=== PATIENT | male | born 2000 | race American Indian/Alaskan Native ===

== ENCOUNTER 2019-05-17 05:23 | Emergency (ER) | payer MEDICAID ==
[2019-05-17 06:10] LABS: Basophils % (Auto) 0.5 % (0.0-1.8); Eosinophils # (Auto) 0.1 K/mm3 (0.0-0.4); Eosinophils % (Auto) 2.9 % (0.0-4.3); Hematocrit 45.7 % (35.5-45.6); Hemoglobin 15.1 gm/dl (11.8-15.2); Lymphocytes # (Auto) 2.5 K/mm3 (1.2-5.4); Lymphocytes % (Auto) 50.9 % (13.4-35.0); Mean Corpuscular HGB Conc 33 % (32-34); Mean Corpuscular Volume 94 fl (84-94); Monocytes # (Auto) 0.5 K/mm3 (0.0-0.8); Monocytes % (Auto) 10.8 % (0.0-7.3); Platelet Count 159 K/mm3 (140-440); Red Blood Count 4.85 M/mm3 (3.65-5.03); Red Cell Distribution Width 14.2 % (13.2-15.2)
[2019-05-17 06:12] LABS: Bilirubin,Urine NEG (Negative); Blood,Urine NEG (Negative); Color,Urine Yellow (Yellow); Mucus,Urine FEW /HPF; Protein,Urine <15 mg/dL mg/dL (Negative)
[2019-05-17 06:20] LABS: Amphetamine Screen,Urine PRESUMPTIVE NEGATIVE; Benzodiazepines Screen,Urine PRESUMPTIVE NEGATIVE; Cannabinoid Screen,Urine PRESUMPTIVE NEGATIVE; Cocaine Screen,Urine PRESUMPTIVE NEGATIVE; Methadone Screen,Urine PRESUMPTIVE NEGATIVE; Opiate Screen,Urine PRESUMPTIVE NEGATIVE
[2019-05-17 06:23] LABS: BUN/Creatinine Ratio 10; Blood Urea Nitrogen 10 mg/dL (9-20); Calcium 9.4 mg/dL (8.4-10.2); Hemolysis Index 6
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
[2019-05-17 08:01] VITALS: BP 120/49
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
== END 2019-05-17 14:33 | disposition home or self-care (01) ==
LOC: EEVIPCON 05:23 → ED 05:23
DX: F79 Unspecified intellectual disabilities (principal); Q90.9 Down syndrome, unspecified; R45.4 Irritability and anger; Z79.899 Other long term (current) drug therapy
CPT/HCPCS: 36415; 80048; 80164; 80307; 80320; 81001; 85025; G0480

== ENCOUNTER 2019-06-05 11:37 | Inpatient (IN) | payer MEDICAID ==
[2019-06-05] MEDS ORDERED: SODIUM CHLORIDE FLUSH SYRINGE 10 ML IV PRN (11:42)
[2019-06-05] MEDS ORDERED: NACL 0.9% 1000 ML 1,000 ML IV SCH (12:00)
[2019-06-05] MEDS ORDERED: PROTONIX IV SCH (13:00)
[2019-06-05 13:32] LABS: Basophils % (Auto) 0.8 % (0.0-1.8); Eosinophils # (Auto) 0.1 K/mm3 (0.0-0.4); Eosinophils % (Auto) 1.5 % (0.0-4.3); Hematocrit 39.7 % (35.5-45.6); Lymphocytes # (Auto) 2.5 K/mm3 (1.2-5.4); Lymphocytes % (Auto) 47.5 % (13.4-35.0); Mean Corpuscular HGB Conc 33 % (32-34); Mean Corpuscular Volume 94 fl (84-94); Monocytes # (Auto) 0.6 K/mm3 (0.0-0.8); Platelet Count 119 K/mm3 (140-440); Red Cell Distribution Width 14.7 % (13.2-15.2)
[2019-06-05 13:44] LABS: INR 1.14 (0.87-1.13); Partial Thromboplastin Time 31.8 Sec. (24.2-36.6)
[2019-06-05 13:50] LABS: Alanine Aminotransferase 8 units/L (7-56); Albumin 3.4 g/dL (3.9-5); BUN/Creatinine Ratio 8; Blood Urea Nitrogen 7 mg/dL (9-20); Calcium 8.9 mg/dL (8.4-10.2); LDL Cholesterol,Direct 66 mg/dL (50-130)
[2019-06-05 13:51] LABS: Hemolysis Index 6
[2019-06-05] MEDS: FLAGYL 500 MG/100 ML 500 MG/100 ML BAG IV SCH ×2 (13:59→21:00)
[2019-06-05] MEDS: LOVENOX SUB-Q SCH (14:04)
[2019-06-05 14:33] LABS: Chol/HDL Ratio 2.29 %; HDL Cholesterol 54 mg/dL (40-59)
--- NOTE | 2019-06-05 19:17 | History and Physical Report ---
History of Present Illness Date of examination: 06/05/19 Date of admission: 06/05/19 12:08 Chief complaint: Abdominal pain, diarrhea. days- 3 History of present illness: Patient is a 19-year-old morbidly obese young man who has schizophrenia and mental obtundation and leaves in a penitentiary was brought by the caregiver the office today on account of persistent diarrhea that started after eating hot dogs in a green party 4 days ago. Freqency was 3-5 times a day, watery in nature, with no hematemesis or melena. Also developed generalized abdominal pain. Dull in nature 7-8/10 in severity. Nauseated but no vomiting. Has no fever. In my office pt was very lethargic for which admission was requested. Past History Past Medical History: other (schizophrenia, mental obtundation,) Past Surgical History: No surgical history Social history: denies: smoking, alcohol abuse Family history: denies: cancer, diabetes Medications and Allergies Allergies Allergy/AdvReac Type Severity Reaction Status Date / Time No Known Allergies Allergy Verified 10/20/15 03:43 Home Medications Medication Instructions Recorded Confirmed Last Taken Type Benztropine [Cogentin] 0.5 mg PO QHS 05/17/19 06/05/19 Unknown History Divalproex ER [DepaKOTE ER] 500 mg PO BID 05/17/19 06/05/19 Unknown History clonazePAM [KlonoPIN] 2 mg PO BID 05/17/19 06/05/19 Unknown History traZODone [Desyrel] 100 mg PO HS 06/05/19 06/05/19 Unknown History Active Meds: Active Medications Enoxaparin Sodium (Lovenox) 40 mg SUB-Q QDAY [facility] Last Admin: 06/05/19 14:04 Dose: 40 mg Documented by: Sodium Chloride (Nacl 0.9% 1000 Ml) 1,000 mls @ 150 mls/hr IV DIRECT [facility] Last Admin: 06/05/19 13:50 Dose: 150 mls/hr Documented by: Metronidazole (Flagyl 500 Mg/100 Ml) 500 mg in 100 mls @ 100 mls/hr IV BID [facility]; Protocol Last Admin: 06/05/19 13:59 Dose: 100 mls/hr Documented by: Pantoprazole Sodium (Protonix) 40 mg IV QDAY [facility] Last Admin: 06/05/19 13:56 Dose: 40 mg Documented by: Sodium Chloride (Sodium Chloride Flush Syringe 10 Ml) 10 ml IV BID STEPHEN Sodium Chloride (Sodium Chloride Flush Syringe 10 Ml) 10 ml IV PRN PRN PRN Reason: LINE FLUSH Review of systems Constitutional: Obese, Well Nourished and Well developed. Head: NC/ AT Eyes: Denies any visual impairments. No discharge from the eyes Nose: Denies any rhinorrhea or epistaxis Throats: Denies any post nasal drainage. Ears: Denies any hearing deficits Cardiovascular system: Denies any chest pain, shortness of breath, orthopnea, paroxysmal nocturnal dyspnea, or palpitation. Respiratory system: Denies any cough, difficulty breathing, wheezing, pleuritic chest pain, Gastrointestinal system: Denies any abdominal pain, nausea vomiting, hematemesis or melena. Neurological system: Nephrology, Denies any headache, slurred speech, facial droop, lateralizing weakness Genitalia system: Denies any dysuria, urinary frequency or urgency, urethral discharge Skin: No rashes, hyperpigmented spots. Hematological: Denies any cervical tenderness hemorrhages or petechia. Immunological: Denies any multiple septic spots, Lymphatic: Denies any generalized lymphadenopathy. Endocrine: Denies any polyuria, polydipsia, polyphagia. No heat or cold intolerance. Musculoskeletal system: No joint pain or swelling. Psych: No visual, tactile, auditory or hallucination Exam - Physical Exam Narrative exam: Constitutional: Well-nourished well-developed. Obese, In no distress Head: Normocephalic atraumatic Eyes: Pupils are equal round and reactive to light Nose: No enlarged turbinates, no septal deviation. Mouth: Moist mucous membranes. Neck: Supple no thyromegaly. No bruit. No JVD Heart: Regular rate and rhythm, S1-S2 normal. No rubs murmurs or gallop Lungs: Clear to auscultation bilaterally. no rales or rhonchi Abdomen: Soft, nontender. Bowel sound are present. Extremities: No edema, no cyanosis, no clubbing. Neuro: Alert oriented Oriented x3. No focal sensory or motor deficit. Skin: No rashes or hyperpigmented spots Musculoskeletal system: No joint pain or swelling Hematological: No petechia or subcutanous hemorrhages. Immunological: No multiple septic spots on the skin Lymphatic: No generalized lymphadenopathy Psychiatry: Euthymic. Calm. - Constitutional Vitals: Temp Pulse Resp BP Pulse Ox 97.8 F 60 16 122/81 96 06/05/19 16:55 06/05/19 12:42 06/05/19 16:55 06/05/19 16:55 06/05/19 12:42 Results - Labs CBC & Chem 7: 06/05/19 13:08 06/05/19 13:08 Labs: Abnormal lab results 06/05/19 06/05/19 06/05/19 Range/Units 13:08 13:08 13:08 Plt Count 119 L (140-440) K/mm3 Lymph % (Auto) 47.5 H (13.4-35.0) % [place] % (Auto) 12.0 H (0.0-7.3) % Seg Neutrophils % 38.2 L (40.0-70.0) % INR 1.14 H (0.87-1.13) BUN 7 L (9-20) mg/dL Phosphorus (2.5-4.5) mg/dL Albumin 3.4 L (3.9-5) g/dL 06/05/19 Range/Units 13:08 Plt Count (140-440) K/mm3 Lymph % (Auto) (13.4-35.0) % [place] % (Auto) (0.0-7.3) % Seg Neutrophils % (40.0-70.0) % INR (0.87-1.13) BUN (9-20) mg/dL Phosphorus 5.10 H (2.5-4.5) mg/dL Albumin (3.9-5) g/dL Assessment and Plan - Acute gastroenteritis Nothing by mouth, IV fluids, stool for ova parasites and WBC and culture - Abdominal pain Obtain CT scan of abdomen and pelvis - History of schizophrenia Menstrual medication - DVT prophylaxis with Lovenox and GI with Pepcid -CODE STATUS: patient is full code Disposition: per hospital course
--- NOTE | 2019-06-05 19:32 | Cat Scan Report ---
. CT abdomen pelvis w con INDICATION: ABDOMINAL PAIN. TECHNIQUE: All CT scans at this location are performed using CT dose reduction for ALARA by means of automated e xposure control. COMPARISON: None available. FINDINGS: Lung bases are clear. Liver, gallbladder, spleen, pancreas, kidneys and adrenals are negative on this noncontrast exam. Abdominal aorta is normal in size. No adenopathy. Pelvis Images are suboptimal because of the patient's size. Appendix cannot be identified. No obvious free f luid or inflammatory change. Abdominal incision scar. IMPRESSION: 1. Images of the lower abdomen are suboptimal due to the patient's size. I see no definite acute abno rmalities. Signer Name: Taqueria Dalal MD Signed: 06/05/2019 7:28 PM Workstation Name: [id number]
[2019-06-05] MEDS ORDERED: SODIUM CHLORIDE FLUSH SYRINGE 10 ML IV SCH (22:00)
[2019-06-05] MEDS ORDERED: DESYREL PO SCH (22:00)
[2019-06-05] MEDS ORDERED: COGENTIN PO SCH (22:00)
[2019-06-06] MEDS ORDERED: TYLENOL PO PRN (01:01)
[2019-06-06 07:09] LABS: Basophils % (Auto) 0.9 % (0.0-1.8); Eosinophils # (Auto) 0.1 K/mm3 (0.0-0.4); Eosinophils % (Auto) 2.6 % (0.0-4.3); Hematocrit 42.2 % (35.5-45.6); Hemoglobin 14.3 gm/dl (11.8-15.2); Lymphocytes # (Auto) 2.1 K/mm3 (1.2-5.4); Lymphocytes % (Auto) 48.8 % (13.4-35.0); Mean Corpuscular HGB Conc 34 % (32-34); Mean Corpuscular Volume 93 fl (84-94); Monocytes # (Auto) 0.5 K/mm3 (0.0-0.8); Monocytes % (Auto) 11.4 % (0.0-7.3); Platelet Count 128 K/mm3 (140-440); Red Blood Count 4.55 M/mm3 (3.65-5.03); Red Cell Distribution Width 14.6 % (13.2-15.2)
[2019-06-06 07:14] LABS: Alanine Aminotransferase 8 units/L (7-56); Albumin 3.5 g/dL (3.9-5); BUN/Creatinine Ratio 9; Blood Urea Nitrogen 7 mg/dL (9-20); Calcium 9.6 mg/dL (8.4-10.2); Hemolysis Index 4
[2019-06-06] MEDS: LOVENOX SUB-Q SCH (12:10)
--- NOTE | 2019-06-06 13:59 | Discharge Summary ---
Providers - Providers Date of Admission: 06/05/19 12:08 Date of discharge: 06/06/19 Attending physician: BRODY IVAN none Primary care physician: BRODY IVAN Hospitalization Reason for admission: Abdominal pain, diarrhnea Pertinent studies: CT abdomen and pelvis that showed no acute event Procedures: none Hospital course: Patient is a 19-year-old morbidly obese young man who has schizophrenia and mental retardation and lives in a senior care was brought by the caregiver the office today on account of persistent diarrhea that started after eating hot dogs in a [employer] party 4 days ago. Freqency was 3-5 times a day, watery in nature, with no hematemesis or melena. Also developed generalized abdominal pain. Dull in nature 7-8/10 in severity. Nauseated but no vomiting. Has no fever. In my office pt was very lethargic for which admission was requested. commence on NPO, IV hydration. Diarrhoea stopped and admission CT abdomen and pelvis ordered and finding were unremarkable for any acute event Disposition: TO HOME OR SELFCARE Time spent for discharge: 35 mins - Discharge Diagnoses (1) Enterocolitis Status: Acute Core Measure Documentation - Palliative Care Palliative Care/ Comfort Measures: Not Applicable - Core Measures Any of the following diagnoses?: none Exam - Physical Exam Narrative exam: Constitutional: Well-nourished well-developed. Obese, In no distress Head: Normocephalic atraumatic Eyes: Pupils are equal round and reactive to light Nose: No enlarged turbinates, no septal deviation. Mouth: Moist mucous membranes. Neck: Supple no thyromegaly. No bruit. No JVD Heart: Regular rate and rhythm, S1-S2 normal. No rubs murmurs or gallop Lungs: Clear to auscultation bilaterally. no rales or rhonchi Abdomen: Soft, nontender. Bowel sound are present. Extremities: No edema, no cyanosis, no clubbing. Neuro: Alert oriented Oriented x3. No focal sensory or motor deficit. Skin: No rashes or hyperpigmented spots Musculoskeletal system: No joint pain or swelling Hematological: No petechia or subcutanous hemorrhages. Immunological: No multiple septic spots on the skin Lymphatic: No generalized lymphadenopathy Psychiatry: Euthymic. Calm. - Constitutional Vitals: Temp Pulse Resp BP Pulse Ox 98.5 F 46 L 18 107/62 98 06/06/19 05:59 06/06/19 05:59 06/06/19 05:59 06/06/19 05:59 06/06/19 05:59 Plan Activity: fall precautions Weight Bearing Status: Weight Bear as Tolerated Diet: regular Follow up with: BRODY IVAN MD [Primary Care Provider] - 06/10/19
[2019-06-06 14:44] VITALS: BP 121/65
== END 2019-06-06 17:31 | disposition home or self-care (01) | DRG 392 ==
LOC: 3A 11:37 → UNDOADMIN 11:37 → 3A 12:08
PROVIDERS: ADMIT Family Medicine; ATTEND Family Medicine
DX: K52.9 Noninfective gastroenteritis and colitis, unspecified (principal); F20.9 Schizophrenia, unspecified; F79 Unspecified intellectual disabilities; E66.01 Morbid (severe) obesity due to excess calories; Z68.42 Body mass index [BMI] 45.0-49.9, adult; Z79.899 Other long term (current) drug therapy
CPT/HCPCS: 36415; 74177; 80053; 80061; 83735; 84100; 85025; 85610; 85730; G0378; C9113; J1650; J7030; Q9967

== ENCOUNTER 2019-07-21 18:25 | Inpatient (IN) | payer MEDICAID ==
[2019-07-21] MEDS ORDERED: ONDANSETRON 4 MG/2 ML INJ IV ONE (18:50)
[2019-07-21] MEDS ORDERED: SODIUM CHLORIDE 0.9% 1000 ML 1,000 ML IV ONE (18:50)
[2019-07-21] MEDS ORDERED: PANTOPRAZOLE 40 MG INJ IV ONE (18:50)
--- NOTE | 2019-07-21 18:54 | Emergency Department Report ---
ED Abdominal Pain HPI - General Chief Complaint: Abdominal Pain Stated Complaint: N/V Time Seen by Provider: 07/21/19 18:46 Source: EMS Mode of arrival: Stretcher Limitations: No Limitations - History of Present Illness Initial Comments: Patient is 19 years old male with history of Down syndrome. Patient lives in a assisted. Patient brought to the emergency room via EMS for evaluation of abdominal pain and vomiting started today. Patient describes his pain as diffuse with no radiation. Patient denied any fever or chills. MD Complaint: abdominal pain -: This morning Location: diffuse Radiation: none - Related Data Home Medications Medication Instructions Recorded Confirmed Last Taken Benztropine [Cogentin] 0.5 mg PO QHS 05/17/19 06/05/19 Unknown Divalproex ER [Depakote ER] 500 mg PO BID 05/17/19 06/05/19 Unknown clonazePAM [KlonoPIN] 2 mg PO BID 05/17/19 06/05/19 Unknown traZODone [Desyrel] 100 mg PO HS 06/05/19 06/05/19 Unknown Previous Rx's Medication Instructions Recorded Last Taken Type Acetaminophen [Acetaminophen TAB] 650 mg PO Q4H PRN tablet 06/06/19 Unknown Rx Divalproex ER [Depakote ER] 500 mg PO BID tablet 06/06/19 Unknown Rx Lactulose 10 gm PO DAILY PRN #150 ml 07/21/19 Unknown Rx Ondansetron [Zofran Odt] 4 mg PO Q8HR PRN #14 tab.rapdis 07/21/19 Unknown Rx Sodium Phosphate,[place]-Dibasic 118 ml RC ONCE #1 enema 07/21/19 Unknown Rx [Fleet Enema] Allergies Allergy/AdvReac Type Severity Reaction Status Date / Time No Known Allergies Allergy Verified 10/20/15 03:43 ED Review of Systems ROS: Stated complaint: N/V Other details as noted in HPI Comment: All other systems reviewed and negative Constitutional: denies: chills, fever Respiratory: denies: cough, shortness of breath, SOB with exertion Cardiovascular: denies: chest pain, palpitations Gastrointestinal: abdominal pain, nausea, vomiting. denies: diarrhea, con stipation, hematemesis, melena, hematochezia Musculoskeletal: denies: back pain Neurological: denies: headache, weakness ED Past Medical Hx - Past Medical History Hx Congestive Heart Failure: No Hx Diabetes: No Hx Seizures: Yes Hx Psychiatric Treatment: Yes Hx Asthma: No (Hx) Hx COPD: No Additional medical history: down syndrome - Social History Smoking Status: Never Smoker Substance Use Type: None - Medications Home Medications: Home Medications Medication Instructions Recorded Confirmed Last Taken Type Benztropine [Cogentin] 0.5 mg PO QHS 05/17/19 06/05/19 Unknown History Divalproex ER [Depakote ER] 500 mg PO BID 05/17/19 06/05/19 Unknown History clonazePAM [KlonoPIN] 2 mg PO BID 05/17/19 06/05/19 Unknown History traZODone [Desyrel] 100 mg PO HS 06/05/19 06/05/19 Unknown History Acetaminophen [Acetaminophen TAB] 650 mg PO Q4H PRN tablet 06/06/19 Unknown Rx Divalproex ER [Depakote ER] 500 mg PO BID tablet 06/06/19 Unknown Rx Lactulose 10 gm PO DAILY PRN #150 ml 07/21/19 Unknown Rx Ondansetron [Zofran Odt] 4 mg PO Q8HR PRN #14 tab.rapdis 07/21/19 Unknown Rx Sodium Phosphate,[place]-Dibasic 118 ml RC ONCE #1 enema 07/21/19 Unknown Rx [Fleet Enema] ED Physical Exam - General Limitations: No Limitations General appearance: alert, in no apparent distress - Head Head exam: Present: atraumatic, normocephalic, normal inspection - Eye Eye exam: Present: normal appearance - ENT ENT exam: Present: normal exam, normal orophraynx, mucous membranes moist - Neck Neck exam: Present: normal inspection, full ROM. Absent: tenderness, meningismus, lymphadenopathy, thyromegaly - Respiratory Respiratory exam: Present: normal lung sounds bilaterally - Cardiovascular Cardiovascular Exam: Present: regular rate, normal rhythm, normal heart sounds - GI/Abdominal GI/Abdominal exam: Present: soft, normal bowel sounds. Absent: distended, tenderness, guarding, rebound, rigid, organomegaly, mass, bruit, pulsatile mass, hernia - Extremities Exam Extremities exam: Present: normal inspection, full ROM, normal capillary refill. Absent: tenderness, pedal edema, joint swelling, calf tenderness - Back Exam Back exam: Present: normal inspection, full ROM. Absent: CVA tenderness (R), CVA tenderness (L), muscle spasm, paraspinal tenderness, vertebral tenderness - Neurological Exam Neurological exam: Present: alert, oriented X3, CN II-XII intact - Psychiatric Psychiatric exam: Present: normal mood - Skin Skin exam: Present: warm, intact, normal color ED Course Vital Signs 07/21/19 07/21/19 18:35 19:20 Temperature 98.6 F Pulse Rate 103 H 101 H Respiratory 18 21 Rate Blood Pressure 109/59 Blood Pressure 107/60 [Right] O2 Sat by Pulse 96 96 Oximetry ED Medical Decision Making - Lab Data Result diagrams: 07/21/19 19:02 07/21/19 19:02 - Radiology Data Radiology results: report reviewed - Medical Decision Making Patient is 19 years old male with history of Down syndrome. Patient lives in a assisted. Patient brought to the emergency room via EMS for evaluation of abdominal pain and vomiting started today. Patient describes his pain as diffuse with no radiation. Patient denied any fever or chills. Patient labs reviewed and is unremarkable except for slightly elevated white blood cells. CT abdomen and pelvis showed severe constipation with no evidence of bowel obstruction. Patient require multiple antiemetics secondary to intractable vomiting. Patient received Zofran, Reglan Zofran and Benadryl. I discussed the patient with , he agreed to admit the patient to medical service. Critical care attestation.: If time is entered above; I have spent that time in minutes in the direct care of this critically ill patient, excluding procedure time. ED Disposition Clinical Impression: Abdominal pain, Constipation, Intractable vomiting with nausea Disposition: OP ADMIT IP TO THIS HOSP Is pt being admited?: Yes Condition: Stable Instructions: Constipation (ED), High Fiber Diet (ED), Abdominal Pain (ED) Prescriptions: Sodium Phosphate,[place]-Dibasic [Fleet Enema] 118 ml RC ONCE #1 enema Lactulose 10 gm PO DAILY PRN #150 ml PRN Reason: Constipation Ondansetron [Zofran Odt] 4 mg PO Q8HR PRN #14 tab.rapdis PRN Reason: Nausea And Vomiting Referrals: TIFFANIE PATELENCINOIZABELLA MD [Primary Care Provider] - 3-5 Days
[2019-07-21 19:19] LABS: Basophils % (Auto) 0.3 % (0.0-1.8); Eosinophils % (Auto) 0.1 % (0.0-4.3); Hematocrit 44.8 % (35.5-45.6); Hemoglobin 14.9 gm/dl (11.8-15.2); Lymphocytes # (Auto) 0.9 K/mm3 (1.2-5.4); Lymphocytes % (Auto) 7.2 % (13.4-35.0); Mean Corpuscular HGB Conc 33 % (32-34); Mean Corpuscular Volume 95 fl (84-94); Monocytes # (Auto) 1.2 K/mm3 (0.0-0.8); Monocytes % (Auto) 9.6 % (0.0-7.3); Platelet Count 130 K/mm3 (140-440); Red Blood Count 4.73 M/mm3 (3.65-5.03); Red Cell Distribution Width 14.1 % (13.2-15.2)
[2019-07-21 19:38] LABS: Alanine Aminotransferase 8 units/L (7-56); Albumin 4.1 g/dL (3.9-5); BUN/Creatinine Ratio 9; Bilirubin,Direct 0.2 mg/dL (0-0.2); Blood Urea Nitrogen 9 mg/dL (9-20); Calcium 9.3 mg/dL (8.4-10.2); Hemolysis Index 16
[2019-07-21] MEDS ORDERED: METOCLOPRAMIDE 10 MG/2 ML INJ ONE (20:19)
[2019-07-21] MEDS ORDERED: METOCLOPRAMIDE 10 MG/2 ML INJ IV ONE (20:19)
--- NOTE | 2019-07-21 21:03 | Cat Scan Report ---
CT ABDOMEN AND PELVIS WITH IV CONTRAST INDICATION: abdominal pain. COMPARISON: CT 06/05/2019. TECHNIQUE: All CT scans at this facility use dose modulation, automated exposure control, iterative reconstructi on or weight based dosing, when appropriate, to reduce radiation dose to as low as reasonably achieva ble. FINDINGS: Lung Bases: No significant abnormality. Skeletal System: No acute abnormality. ABDOMEN: Liver: No significant abnormality. Gallbladder: No significant abnormality. Bile Ducts: No significant abnormality. Pancreas: No significant abnormality. Spleen: No significant abnormality. Adrenals: No significant abnormality. Right Kidney: No significant abnormality. Left Kidney: No significant abnormality. Upper GI tract: No significant abnormality. Lymph Nodes: No significant adenopathy. Aorta: No significant abnormality. Additional Findings: No significant abnormality. PELVIS: Colon: There is markedly advanced constipation throughout. There is focal colonic narrowing at the s igmoid anastomosis. Urinary Bladder and Distal Ureters: No significant abnormality. Appendix: Not visualized. Lymph Nodes: No significant adenopathy. Additional Findings: None. IMPRESSION: 1. There is severe constipation. Focal colonic narrowing is noted at the anastomosis in the sigmoid; however, this is not resulting in obstruction as there is a large amount of fecal material in the mo re distal sigmoid and rectum. Signer Name: Luis Fernando Lam MD Signed: 07/21/2019 8:59 PM Workstation Name: [id number]
[2019-07-21] MEDS ORDERED: PIPERACILLIN/TAZOBACTAM 3.375 3.375 GM/50 ML BAG IV ONE (21:45)
[2019-07-21] MEDS ORDERED: diphenhydrAMINE 50 MG/ML VIAL IV ONE (21:47)
[2019-07-21 21:48] LABS: Bilirubin,Urine SM (Negative); Blood,Urine NEG (Negative); Color,Urine Amber (Yellow); Mucus,Urine FEW /HPF; Protein,Urine <15 mg/dL mg/dL (Negative)
[2019-07-21] MEDS ORDERED: MINERAL OIL ENEMA 133 ML PR ONE (21:48)
[2019-07-21 21:52] LABS: Ictotest,Urine Negative (Negative)
[2019-07-21] MEDS ORDERED: ONDANSETRON 4 MG/2 ML INJ IV PRN (22:25)
[2019-07-21] MEDS ORDERED: BISACODYL 5 MG TAB PO PRN (22:25)
[2019-07-21] MEDS ORDERED: ACETAMINOPHEN 650 MG RECT SUPP PR PRN (22:31)
[2019-07-22] MEDS: SODIUM CHLORIDE 0.9% 1000 ML 1,000 ML IV SCH ×4 (01:04→16:33)
[2019-07-22] MEDS ORDERED: MORPHINE 2 MG/1 ML INJ IV PRN (01:35)
[2019-07-22] MEDS: DOCUSATE SODIUM 100 MG CAP PO SCH ×3 (04:19→21:58)
--- NOTE | 2019-07-22 05:02 | History and Physical Report ---
CHIEF COMPLAINT: Abdominal pain. HISTORY OF PRESENT ILLNESS: The patient is a 19-year-old male who was brought in from personal detention because of abdominal pain. The patient said pain started on 07/21/2019 and was associated with nausea and vomiting. Also, the patient complained about constipation. There was no history of fever or chills and no history of shortness of breath. PAST MEDICAL HISTORY: Pertinent for seizure disorder, Down syndrome. Also, the patient has past history of some psychiatric illness. PAST SURGICAL HISTORY: Unremarkable. FAMILY HISTORY: Noncontributory. SOCIAL HISTORY: The patient stays at the personal detention, does not smoke, does not drink alcohol and does not use illicit drugs. MEDICATIONS: The patient is on the following medications, Cogentin 0.5 mg by mouth at bedtime, Depakote extended release 500 mg by mouth twice daily, Klonopin 2 mg by mouth twice daily, trazodone 100 mg at bedtime, Tylenol 650 mg by mouth every 4 hours as needed for fever and headache. ALLERGIES: There are no known drug allergies. REVIEW OF SYSTEMS: CONSTITUTIONAL: There is no fever, no chills, no diaphoresis. HEENT: There is no headache or sore throat. CARDIOVASCULAR SYSTEM: There is no chest pain or orthopnea. RESPIRATORY SYSTEM: There is no shortness of breath or cough. GASTROINTESTINAL SYSTEM: Abdominal pain is present. Nausea and vomiting present. Constipation present. No diarrhea. NEUROLOGICAL SYSTEM: There is no numbness, no dizziness, no altered mental status. MUSCULOSKELETAL SYSTEM: There is no joint pain or swelling. DERMATOLOGICAL SYSTEM: There is no skin rash or itching. GENITOURINARY SYSTEM: There is no dysuria, hematuria, or flank pain. Rest of system review is normal. PHYSICAL EXAMINATION: GENERAL: At the time of exam, the patient was found to be alert, oriented x 3 and not in acute distress. VITAL SIGNS: At the initial time of presentation showed temperature of 98.6 degrees Fahrenheit, pulse of 103, respirations 18, blood pressure 109/59, O2 sat of 96% on room air. HEENT: Showed pupils to be equal, round, reactive to light and accommodating. Extraocular muscles are intact. NECK: Supple with no JVD or carotid bruit. CARDIOVASCULAR SYSTEM: Showed normal first and second heart sounds with no gallops or murmurs. RESPIRATORY SYSTEM: Showed good air entry on both sides of the lungs with no abnormal breath sounds. GASTROINTESTINAL SYSTEM: Show abdomen to be full, soft with an infraumbilical midline surgical scar. There is tenderness around the umbilical area. There is no rigidity and there is no organomegaly elicited. Bowel sound is normal. NEUROLOGICAL SYSTEM: Showed no focal deficit. MUSCULOSKELETAL SYSTEM: Show no joint swelling. DERMATOLOGICAL SYSTEM: Show no skin rash. GENITOURINARY SYSTEM: Showing no costovertebral angle tenderness. PERTINENT LABORATORY AND IMAGING STUDIES: The patient had CT of the abdomen and pelvis done with IV contrast and this shows severe constipation. There is also finding of focal colonic narrowing at the anastomosis in the sigmoid area and the radiologist said that this is not resulting in obstruction as there is a large amount of fecal material in the more distal sigmoid and rectum. Lab results, the patient has CBC done with elevated white count of 12,100 with normal hemoglobin and normal hematocrit with low platelet count of 130,000. CBC differential shows elevated monocyte count of 9.6%. The patient's chemistry shows low sodium of 136 with normal potassium and low chloride of 95.9. The patient's urinalysis was unremarkable. DIAGNOSES: 1. Intractable nausea and vomiting. 2. Abdominal pain. 3. Constipation. PLAN OF CARE: 1. The patient will be placed on observation in the medical/surgical glass. 2. The patient will be on IV normal saline running at 125 mL an hour. The patient will also be on IV Zofran 4 mg every 8 hours as needed for nausea and vomiting. 3. The patient will be on p.r.n. medications like Tylenol 650 mg rectally every 4 hours for fever and headache and will be on Zofran 4 mg IV every 8 hours for nausea and vomiting. 4. The patient will be on Dulcolax tablet 10 mg by mouth every day as needed for constipation, having had order for Fleet enema in the Emergency Room. 5. The patient will be on IV morphine 2 mg every 4 hours as needed for pain and will also be on docusate sodium 100 mg by mouth twice daily for constipation. 6. The patient will be on his home medication as seen in the medication reconciliation section and will be on regular diet. JOB# [id number] OCN/NTS
--- NOTE | 2019-07-22 08:50 | Event Note ---
Date: 07/22/19 Patient with abdominal pain due to severe constipation. I have seen and examined him. Continue laxatives. Obtain EKG for tachycardia. consult Nephrology for COLUMBA.
[2019-07-22 11:04] LABS: Hematocrit 52.9 % (35.5-45.6); Hemoglobin 17.1 gm/dl (11.8-15.2); Mean Corpuscular HGB Conc 32 % (32-34); Mean Corpuscular Volume 95 fl (84-94); Red Blood Count 5.56 M/mm3 (3.65-5.03); Red Cell Distribution Width 14.5 % (13.2-15.2)
[2019-07-22] MEDS: DIVALPROEX ER 500 MG TAB PO SCH ×2 (11:07→23:03)
[2019-07-22 11:12] LABS: Platelet Count 137 K/mm3 (140-440)
[2019-07-22 11:22] LABS: Calcium 9.1 mg/dL (8.4-10.2)
--- NOTE | 2019-07-22 12:20 | Consultation ---
History of Present Illness - Reason for Consult Consult date: 07/22/19 acute renal failure, hyperkalemia - History of Present Illness The patient is 19 YO male with history significant for Downs syndrome who lives in a fci who was brought to [facility] ED on 07/21/2019 via EMS for evaluation of abdominal pain and vomiting started on the day of presentation. Patient is a very poor historian and unable to obtain any history from him. No family member at the bedside. From prior documentation he mentioned diffuse abdominal pain with no radiation. No h/o fever or chills. CT showed distended bowel with stool. He received fleet enema and subsequently had several bowel movements. Today his creatinine increased to 2 with K of 5.3. Nephrology was consulted for further evaluation. Past History Past Medical History: other (Downs syndrome) Medications and Allergies Allergies Allergy/AdvReac Type Severity Reaction Status Date / Time No Known Allergies Allergy Verified 10/20/15 03:43 Home Medications Medication Instructions Recorded Confirmed Last Taken Type Benztropine [Cogentin] 0.5 mg PO QHS 05/17/19 06/05/19 Unknown History Divalproex ER [Depakote ER] 500 mg PO BID 05/17/19 06/05/19 Unknown History clonazePAM [KlonoPIN] 2 mg PO BID 05/17/19 06/05/19 Unknown History traZODone [Desyrel] 100 mg PO HS 06/05/19 06/05/19 Unknown History Acetaminophen [Acetaminophen TAB] 650 mg PO Q4H PRN tablet 06/06/19 Unknown Rx Divalproex ER [Depakote ER] 500 mg PO BID tablet 06/06/19 Unknown Rx Lactulose 10 gm PO DAILY PRN #150 ml 07/21/19 Unknown Rx Ondansetron [Zofran Odt] 4 mg PO Q8HR PRN #14 tab.rapdis 07/21/19 Unknown Rx Sodium Phosphate,[place]-Dibasic 118 ml RC ONCE #1 enema 07/21/19 Unknown Rx [Fleet Enema] Active Meds: Active Medications Acetaminophen (Tylenol) 650 mg [place] Q4H PRN PRN Reason: Fever >101 Benztropine Mesylate (Cogentin) 0.5 mg PO QHS STEPHEN Bisacodyl (Dulcolax) 10 mg PO QDAY PRN PRN Reason: Constipation Clonazepam (Klonopin) 2 mg PO BID [facility] Last Admin: 07/22/19 11:06 Dose: 2 mg Documented by: Divalproex Sodium (Depakote Er) 500 mg PO BID [facility] Last Admin: 07/22/19 11:07 Dose: 500 mg Documented by: Docusate Sodium (Colace) 100 mg PO BID [facility] Last Admin: 07/22/19 11:07 Dose: Not Given Documented by: Sodium Chloride (Nacl 0.9% 1000 Ml) 1,000 mls @ 125 mls/hr IV DIRECT STEPHEN Last Admin: 07/22/19 01:04 Dose: 125 mls/hr Documented by: Sodium Chloride (Nacl 0.9% 1000 Ml) 1,000 mls @ 999 mls/hr IV ONCE [facility] Stop: 07/23/19 13:06 Morphine Sulfate (Morphine) 2 mg IV Q4H PRN PRN Reason: Pain, Moderate (4-6) Last Admin: 07/22/19 01:53 Dose: 2 mg Documented by: Ondansetron HCl (Zofran) 4 mg IV Q8H PRN PRN Reason: Nausea And Vomiting Last Admin: 07/22/19 01:07 Dose: 4 mg Documented by: Trazodone HCl (Desyrel) 100 mg PO [facility] Review of Systems ROS unobtainable: due to mental status Exam - Vital Signs Vital signs: Vital Signs Temp Pulse Resp BP Pulse Ox 98.6 F 103 H 18 109/59 96 07/21/19 18:35 07/21/19 18:35 07/21/19 18:35 07/21/19 18:35 07/21/19 18:35 - General Appearance General appearance: well-developed, well-nourished, appears stated age EENT: ATNC, PERRL Neck: Present: neck supple, trachea midline Respiratory: Clear to Ascultation Heart: regular, tachycardia, S1S2, no murmurs Gastrointestinal: Present: obese, other (bowel sounds are heard, some tenderness noted) Integumentary: no rash, warm and dry Neurologic: other (able to move extremities, mumbles) Musculoskeletal: Present: other (no edema) Results - Lab Results 07/22/19 15:33 07/22/19 15:33 Most recent lab results Calcium 9.1 mg/dL (8.4-10.2) 07/22/19 10:50 Phosphorus 4.70 mg/dL (2.5-4.5) H 07/22/19 10:50 Magnesium 3.10 mg/dL (1.7-2.3) H 07/22/19 10:50 - Image Kidney/bladder ultrasound: other Assessment and Plan 1. Acute kidney injury: Suspect vasomotor COLUMBA in the setting of volume depletion. Other possibility is phosphate nephropathy. Continue IV fluids. Renal function continue to decline. Monitor renal function. Avoid nephrotoxic agents. Meds dosage based on GFR. 2. FEN: Hyperkalemia, Insulin-Dextrose and IV Calcium ordered. Metabolic acidosis, start on bicarbonate drip. Hyponatremia, monitor. Monitor lytes. 3. Colonic distention: consulted. D/w him. 4. Leukocytosis. 5. Sinus tachycardia.
[2019-07-22] MEDS ORDERED: LOPERAMIDE 2 MG CAP PO STA (14:26)
[2019-07-22 16:47] LABS: Hemoglobin 15.9 gm/dl (11.8-15.2); Mean Corpuscular HGB Conc 33 % (32-34); Mean Corpuscular Volume 96 fl (84-94); Red Cell Distribution Width 14.2 % (13.2-15.2)
[2019-07-22 16:48] LABS: Platelet Count 127 K/mm3 (140-440)
[2019-07-22] MEDS ORDERED: LOPERAMIDE 2 MG CAP PO PRN (17:30)
[2019-07-22] MEDS ORDERED: SODIUM CHLORIDE 0.9% 1000 ML 1,000 ML IV ONE (17:48)
[2019-07-22 18:09] LABS: Calcium 8.2 mg/dL (8.4-10.2)
[2019-07-22] MEDS ORDERED: CALCIUM GLUCONATE 1,000 MG in SODIUM CHLORIDE 0.9% 100 ML IV STA ×2 (18:26→20:47)
[2019-07-22] MEDS ORDERED: DEXTROSE 50% IN WATER (25GM) 50 ML VIAL IV STA (18:30)
[2019-07-22] MEDS ORDERED: INSULIN REGULAR, HUMAN 100 UNITS/1 ML IV STA ×2 (18:31→20:47)
[2019-07-22] MEDS ORDERED: DEXTROSE 50% IN WATER (25GM) 50 ML SYRINGE IV ONE (18:42)
[2019-07-22] MEDS ORDERED: SODIUM BICARB 8.4% 50 MEQ/50 ML SYRINGE IV STA (18:43)
--- NOTE | 2019-07-22 18:43 | Progress Note ---
Assessment and Plan Assessment and plan: Acute resp failure Patient short of breath, desaturated O2 sat 87% Transfer to ICU supplemental Oxygen ABG shows pH 7.195 Consulted and discussed with Dr. Ewing COLUMBA due to vasomotor nephropathy versus ATN Cr worse, 2.2 Hyperkalemia Give calcium Carbonate Insulin/Dextrose discussed with Dr. whitehead severe constipation resolved, now has diarrhea due to laxatives Severe diarrhea due to laxatives after presenting with constipation sinus tachycardia due to dehydration full code status History Interval history: patient with constipation on iv fluid Shortness of breath, oxygen desaturation Hospitalist Physical - Physical exam Narrative exam: Gen: Not in acute distress, lying in bed,obese HEENT: Normocephalic, atraumatic Neck: supple, no JVD Heart: S1 and S2 reg, no murmurs, rubs or gallop Lungs: bilateral crackles, no wheeze Abd: soft, non tender, non distended, normal BS, Ext: No edema, no clubbing, no cyanosis Neuro: Awake, alert, oriented X 3, no focal neurological signs,moves all ext - Constitutional Vitals: Temp Pulse Resp BP Pulse Ox 97.7 F 68 14 103/79 87 07/22/19 17:47 07/22/19 17:47 07/22/19 17:47 07/22/19 18:00 07/22/19 17:47 Results - Labs CBC & Chem 7: 07/23/19 02:50 07/23/19 Unknown Labs: Laboratory Last Values WBC 13.1 K/mm3 (4.5-11.0) H 07/22/19 15:33 RBC 5.10 M/mm3 (3.65-5.03) H 07/22/19 15:33 Hgb 15.9 gm/dl (11.8-15.2) H 07/22/19 15:33 Hct 49.0 % (35.5-45.6) H 07/22/19 15:33 MCV 96 fl (84-94) H 07/22/19 15:33 MCH 31 pg (28-32) 07/22/19 15:33 MCHC 33 % (32-34) 07/22/19 15:33 RDW 14.2 % (13.2-15.2) 07/22/19 15:33 Plt Count 127 K/mm3 (140-440) L 07/22/19 15:33 Lymph % (Auto) 7.2 % (13.4-35.0) L 07/21/19 19:02 [place] % (Auto) 9.6 % (0.0-7.3) H 07/21/19 19:02 Eos % (Auto) 0.1 % (0.0-4.3) 07/21/19 19:02 Baso % (Auto) 0.3 % (0.0-1.8) 07/21/19 19:02 Lymph # 0.9 K/mm3 (1.2-5.4) L 07/21/19 19:02 [place] # 1.2 K/mm3 (0.0-0.8) H 07/21/19 19:02 Eos # 0.0 K/mm3 (0.0-0.4) 07/21/19 19:02 Baso # 0.0 K/mm3 (0.0-0.1) 07/21/19 19:02 Seg Neutrophils % 82.8 % (40.0-70.0) H 07/21/19 19:02 Seg Neutrophils # 10.0 K/mm3 (1.8-7.7) H 07/21/19 19:02 POC ABG pH 7.197 (7.35-7.45) L 07/22/19 18:42 POC ABG pCO2 45.2 (35-45) H 07/22/19 18:42 POC ABG pO2 97 (80-105) 07/22/19 18:42 POC ABG HCO3 17.5 (22-26 mml/L) 07/22/19 18:42 POC ABG Total CO2 19 (23-27mmol/L) 07/22/19 18:42 POC ABG O2 Sat 96 07/22/19 18:42 POC ABG Base Excess -11 ((-2) - (+3)mmol/L) 07/22/19 18:42 FiO2 100 % 07/22/19 18:42 Sodium 136 mmol/L (137-145) L 07/22/19 15:33 Potassium 6.0 mmol/L (3.6-5.0) H 07/22/19 15:33 Chloride 101.5 mmol/L (98-107) 07/22/19 15:33 Carbon Dioxide 17 mmol/L (22-30) L 07/22/19 15:33 Anion Gap 24 mmol/L 07/22/19 15:33 BUN 29 mg/dL (9-20) H 07/22/19 15:33 Creatinine 2.2 mg/dL (0.8-1.5) H 07/22/19 15:33 Estimated GFR 46 ml/min 07/22/19 15:33 BUN/Creatinine Ratio 13 % 07/22/19 15:33 Glucose 121 mg/dL (75-100) H 07/22/19 15:33 Calcium 8.2 mg/dL (8.4-10.2) L 07/22/19 15:33 Phosphorus 4.70 mg/dL (2.5-4.5) H 07/22/19 10:50 Magnesium 3.10 mg/dL (1.7-2.3) H 07/22/19 10:50 Total Bilirubin 0.60 mg/dL (0.1-1.2) 07/21/19 19:02 Direct Bilirubin 0.2 mg/dL (0-0.2) 07/21/19 19:02 Indirect Bilirubin 0.4 mg/dL 07/21/19 19:02 AST 13 units/L (5-40) 07/21/19 19:02 ALT 8 units/L (7-56) 07/21/19 19:02 Alkaline Phosphatase 68 units/L (35-129) 07/21/19 19:02 Troponin T < 0.010 ng/mL (0.00-0.029) 07/22/19 15:33 Total Protein 7.6 g/dL (6.3-8.2) 07/21/19 19:02 Albumin 4.1 g/dL (3.9-5) 07/21/19 19:02 Albumin/Globulin Ratio 1.2 % 07/21/19 19:02 Lipase 10 units/L (13-60) L 07/21/19 19:02 Urine Color Emy (Yellow) 07/21/19 21:36 Urine Turbidity Clear (Clear) 07/21/19 21:36 Urine pH 5.0 (5.0-7.0) 07/21/19 21:36 Ur Specific [place] 1.024 (1.003-1.030) 07/21/19 21:36 Urine Protein <15 mg/dl mg/dL (Negative) 07/21/19 21:36 Urine Glucose (UA) Neg mg/dL (Negative) 07/21/19 21:36 Urine Ketones Neg mg/dL (Negative) 07/21/19 21:36 Urine Blood Neg (Negative) 07/21/19 21:36 Urine Nitrite Neg (Negative) 07/21/19 21:36 Urine Bilirubin Sm (Negative) 07/21/19 21:36 Urine Ictotest Negative (Negative) 07/21/19 21:36 Urine Urobilinogen 4.0 mg/dL (<2.0) 07/21/19 21:36 Ur Leukocyte Esterase Neg (Negative) 07/21/19 21:36 Urine WBC (Auto) 1.0 /HPF (0.0-6.0) 07/21/19 21:36 Urine RBC (Auto) 1.0 /HPF (0.0-6.0) 07/21/19 21:36 U Epithel Cells (Auto) < 1.0 /HPF (0-13.0) 07/21/19 21:36 Urine Mucus Few /HPF 07/21/19 21:36 Active Medications - Current Medications Current Medications: Generic Name Dose Route Start Last Admin Trade Name Freq PRN Reason Stop Dose Admin Acetaminophen 650 mg 07/21/19 22:31 Tylenol [place] Q4H PRN Fever >101 Benztropine Mesylate 0.5 mg 07/22/19 22:00 Cogentin PO QHS STEPHEN Bisacodyl 10 mg 07/21/19 22:25 Dulcolax PO QDAY PRN Constipation Clonazepam 2 mg 07/22/19 10:00 07/22/19 11:06 Klonopin PO 2 mg BID STEPHEN Administration Divalproex Sodium 500 mg 07/22/19 10:00 07/22/19 11:07 Depakote Er PO 500 mg BID STEPHEN Administration Docusate Sodium 100 mg 07/22/19 02:00 07/22/19 11:07 Colace PO Not Given BID STEPHEN Sodium Chloride 1,000 mls @ 125 mls/hr 07/21/19 23:00 07/22/19 16:33 Nacl 0.9% 1000 Ml IV 125 mls/hr DIRECT STEPHEN Administration Sodium Chloride 1,000 mls @ 999 mls/hr 07/22/19 12:05 07/22/19 14:42 Nacl 0.9% 1000 Ml IV 07/23/19 13:06 999 mls/hr ONCE STEPHEN Administration Sodium Chloride 1,000 mls @ 999 mls/hr 07/22/19 17:48 Nacl 0.9% 1000 Ml IV 07/22/19 18:48 BOLUS ONE Loperamide HCl 2 mg 07/22/19 17:30 Imodium PO Q2H PRN Diarrhea Morphine Sulfate 2 mg 07/22/19 01:35 07/22/19 01:53 Morphine IV 2 mg Q4H PRN Administration Pain, Moderate (4-6) Ondansetron HCl 4 mg 07/21/19 22:25 07/22/19 01:07 Zofran IV 4 mg Q8H PRN Administration Nausea And Vomiting Trazodone HCl 100 mg 07/22/19 22:00 Desyrel PO HS STEPHEN
--- NOTE | 2019-07-22 19:22 | XRay Report ---
CHEST 1 VIEW 07/22/2019 6:30 PM INDICATION / CLINICAL INFORMATION: Oxygen desaturation. COMPARISON: None available. FINDINGS: SUPPORT DEVICES: None. HEART / MEDIASTINUM: No significant abnormality. LUNGS / PLEURA: Suboptimal inspiration with very low lung volumes. No pneumothorax. ADDITIONAL FINDINGS: Moderate to severe gaseous distention of bowel in the upper abdomen. IMPRESSION: 1. Suboptimal inspiration with low lung volumes. 2. Moderate to severe gaseous distention of bowel in the upper abdomen. Signer Name: Elysia Cain MD Signed: 07/22/2019 7:18 PM Workstation Name: [id number]
--- NOTE | 2019-07-22 19:25 | XRay Report ---
ABDOMEN 1 VIEW 6:51 PM INDICATION / CLINICAL INFORMATION: diarrhea. COMPARISON: 07/21/19 FINDINGS: TUBES / LINES: None. BOWEL GAS PATTERN: Moderate to severe gaseous distention of the colon. There is significantly less fe lisa material throughout the colon than on the prior CT. FREE AIR / EXTRALUMINAL GAS: None seen. ADDITIONAL FINDINGS: No significant additional findings. IMPRESSION: 1. Gaseous distention of the colon with significantly less fecal material throughout the colon. Signer Name: Elysia Cain MD Signed: 07/22/2019 7:20 PM Workstation Name: [id number]
[2019-07-22] MEDS ORDERED: NEOSTIGMINE 10MG/10 ML INJ MDV IM ONE (21:00)
[2019-07-22] MEDS ORDERED: METOCLOPRAMIDE 10 MG/2 ML INJ IV SCH ×2 (21:00→22:00)
--- NOTE | 2019-07-22 21:02 | Consultation ---
History of Present Illness Consult date: 07/22/19 Requesting physician: RADHA ARGUETA Reason for consult: other (Hypoxia, SOB) History of present illness: 19 yo with Down syndrome. Admitted with constipation, abd pain, reported vomiting. Received laxatives. Has had multiple loose stools today, such that he was re-hydrated with IVF boluses per IMS. This evening he developed increased hypoxia, worsening renal failure and hyperkalemia. He is transferred to ICU on NRB. He is awake, but cannot provide a coherent history. Stool is brown/non- bloody. Active Medications Acetaminophen (Tylenol) 650 mg CO Q4H PRN PRN Reason: Fever >101 Benztropine Mesylate (Cogentin) 0.5 mg PO QHS STEPHEN Bisacodyl (Dulcolax) 10 mg PO QDAY PRN PRN Reason: Constipation Clonazepam (Klonopin) 2 mg PO BID [facility] Last Admin: 07/22/19 11:06 Dose: 2 mg Documented by: Divalproex Sodium (Depakote Er) 500 mg PO BID [facility] Last Admin: 07/22/19 11:07 Dose: 500 mg Documented by: Docusate Sodium (Colace) 100 mg PO BID [facility] Last Admin: 07/22/19 11:07 Dose: Not Given Documented by: Enoxaparin Sodium (Lovenox) 30 mg SUB-Q QDAY@2200 STEPHEN Sodium Chloride (Nacl 0.9% 1000 Ml) 1,000 mls @ 125 mls/hr IV DIRECT STEPHEN Last Admin: 07/22/19 16:33 Dose: 125 mls/hr Documented by: Sodium Chloride (Nacl 0.9% 1000 Ml) 1,000 mls @ 999 mls/hr IV ONCE [facility] Stop: 07/23/19 13:06 Last Admin: 07/22/19 14:42 Dose: 999 mls/hr Documented by: Piperacillin Sod/Tazobactam Sod (Zosyn/Ns 3.375gm/50ml) 3.375 gm in 50 mls @ 100 mls/hr IV Q8HR [facility]; Protocol Loperamide HCl (Imodium) 2 mg PO Q2H PRN PRN Reason: Diarrhea Ondansetron HCl (Zofran) 4 mg IV Q8H PRN PRN Reason: Nausea And Vomiting Last Admin: 07/22/19 01:07 Dose: 4 mg Documented by: Trazodone HCl (Desyrel) 100 mg PO [facility] Past History Past Medical History: other (Downs syndrome) Social history: full code. denies: smoking, alcohol abuse, prescription drug abuse, IV drug use Family history: other (No pulm issues reported) Medications and Allergies Allergies Allergy/AdvReac Type Severity Reaction Status Date / Time No Known Allergies Allergy Verified 10/20/15 03:43 Home Medications Medication Instructions Recorded Confirmed Last Taken Type Benztropine [Cogentin] 0.5 mg PO QHS 05/17/19 06/05/19 Unknown History Divalproex ER [Depakote ER] 500 mg PO BID 05/17/19 06/05/19 Unknown History clonazePAM [KlonoPIN] 2 mg PO BID 05/17/19 06/05/19 Unknown History traZODone [Desyrel] 100 mg PO HS 06/05/19 06/05/19 Unknown History Acetaminophen [Acetaminophen TAB] 650 mg PO Q4H PRN tablet 06/06/19 Unknown Rx Divalproex ER [Depakote ER] 500 mg PO BID tablet 06/06/19 Unknown Rx Lactulose 10 gm PO DAILY PRN #150 ml 07/21/19 Unknown Rx Ondansetron [Zofran Odt] 4 mg PO Q8HR PRN #14 tab.rapdis 07/21/19 Unknown Rx Sodium Phosphate,[place]-Dibasic 118 ml RC ONCE #1 enema 07/21/19 Unknown Rx [Fleet Enema] Active Meds: Active Medications Acetaminophen (Tylenol) 650 mg CO Q4H PRN PRN Reason: Fever >101 Benztropine Mesylate (Cogentin) 0.5 mg PO QHS [facility] Bisacodyl (Dulcolax) 10 mg PO QDAY PRN PRN Reason: Constipation Clonazepam (Klonopin) 2 mg PO BID [facility] Last Admin: 07/22/19 11:06 Dose: 2 mg Documented by: Divalproex Sodium (Depakote Er) 500 mg PO BID [facility] Last Admin: 07/22/19 11:07 Dose: 500 mg Documented by: Docusate Sodium (Colace) 100 mg PO BID [facility] Last Admin: 07/22/19 11:07 Dose: Not Given Documented by: Enoxaparin Sodium (Lovenox) 30 mg SUB-Q QDAY@2200 STEPHEN Sodium Chloride (Nacl 0.9% 1000 Ml) 1,000 mls @ 125 mls/hr IV DIRECT [facility] Last Admin: 07/22/19 16:33 Dose: 125 mls/hr Documented by: Sodium Chloride (Nacl 0.9% 1000 Ml) 1,000 mls @ 999 mls/hr IV ONCE [facility] Stop: 07/23/19 13:06 Last Admin: 07/22/19 14:42 Dose: 999 mls/hr Documented by: Piperacillin Sod/Tazobactam Sod (Zosyn/Ns 3.375gm/50ml) 3.375 gm in 50 mls @ 10 0 mls/hr IV Q8HR [facility]; Protocol Loperamide HCl (Imodium) 2 mg PO Q2H PRN PRN Reason: Diarrhea Ondansetron HCl (Zofran) 4 mg IV Q8H PRN PRN Reason: Nausea And Vomiting Last Admin: 07/22/19 01:07 Dose: 4 mg Documented by: Trazodone HCl (Desyrel) 100 mg PO HS [facility] Review of Systems All systems: negative Physical Examination Vital signs: Vital Signs Temp Pulse Resp BP Pulse Ox 98.6 F 103 H 18 109/59 96 07/21/19 18:35 07/21/19 18:35 07/21/19 18:35 07/21/19 18:35 07/21/19 18:35 Vital Signs - 24 hr 07/21/19 07/21/19 07/21/19 21:16 23:00 23:16 Temperature Pulse Rate 108 H Respiratory 52 H Rate Blood Pressure 146/91 153/91 137/86 Blood Pressure [Right] O2 Sat by Pulse 94 94 98 Oximetry 07/21/19 07/22/19 07/22/19 23:32 00:00 00:37 Temperature 97.5 F L 98.7 F Pulse Rate 116 H 119 H Respiratory 20 28 H Rate Blood Pressure 156/90 138/71 Blood Pressure 147/89 [Right] O2 Sat by Pulse 97 97 Oximetry 07/22/19 07/22/19 07/22/19 04:39 08:15 12:16 Temperature 98.7 F 97.8 F Pulse Rate 139 H Respiratory 28 H 16 18 Rate Blood Pressure 129/77 118/62 Blood Pressure [Right] O2 Sat by Pulse 93 Oximetry 07/22/19 07/22/19 07/22/19 17:47 18:00 19:43 Temperature 97.7 F Pulse Rate 68 Respiratory 14 Rate Blood Pressure 88/35 103/79 Blood Pressure [Right] O2 Sat by Pulse 87 96 Oximetry 07/22/19 20:00 Temperature 100.1 F H Pulse Rate Respiratory Rate Blood Pressure Blood Pressure [Right] O2 Sat by Pulse Oximetry General appearance: other (obese, awake) Eyes: non-icteric ENT: oropharynx moist Neck: supple Ascultation: Bilateral: diminished breath sounds (due to obesity) Cardiovascular: regular rate and rhythm (no mrg) Gastrointestinal: normoactive bowel sounds, soft, other (morbidly obese abd) Integumentary: normal Extremities: no cyanosis, no edema, pink and warm normal mental status, non-focal exam, pupils equal and round mood appropriate, affect normal Results - Laboratory Findings CBC and BMP: 07/22/19 15:33 07/22/19 15:33 ABG POC ABG pH 7.197 (7.35-7.45) L 07/22/19 18:42 POC ABG pCO2 45.2 (35-45) H 07/22/19 18:42 POC ABG pO2 97 (80-105) 07/22/19 18:42 POC ABG HCO3 17.5 (22-26 mml/L) 07/22/19 18:42 POC ABG Total CO2 19 (23-27mmol/L) 07/22/19 18:42 POC ABG O2 Sat 96 07/22/19 18:42 Abnormal lab findings: Abnormal Labs 07/21/19 07/21/19 07/22/19 19:02 19:02 10:50 WBC 12.1 H 13.7 H RBC 5.56 H Hgb 17.1 H Hct 52.9 H D MCV 95 H 95 H Plt Count 130 L 137 L Lymph % (Auto) 7.2 L Winn % (Auto) 9.6 H Lymph # 0.9 L Winn # 1.2 H Seg Neutrophils % 82.8 H Seg Neutrophils # 10.0 H POC ABG pH POC ABG pCO2 Sodium 136 L Potassium Chloride 95.9 L Carbon Dioxide BUN Creatinine Glucose 163 H POC Glucose Calcium Phosphorus Magnesium Lipase 10 L 07/22/19 07/22/19 07/22/19 10:50 15:33 15:33 WBC 13.1 H RBC 5.10 H Hgb 15.9 H Hct 49.0 H MCV 96 H Plt Count 127 L Lymph % (Auto) Winn % (Auto) Lymph # Winn # Seg Neutrophils % Seg Neutrophils # POC ABG pH POC ABG pCO2 Sodium 136 L Potassium 5.3 H D 6.0 H Chloride 96.7 L Carbon Dioxide 17 L BUN 22 H 29 H Creatinine 2.0 H D 2.2 H Glucose 129 H 121 H POC Glucose Calcium 8.2 L Phosphorus 4.70 H Magnesium 3.10 H Lipase 07/22/19 07/22/19 18:19 18:42 WBC RBC Hgb Hct MCV Plt Count Lymph % (Auto) Winn % (Auto) Lymph # Winn # Seg Neutrophils % Seg Neutrophils # POC ABG pH 7.197 L POC ABG pCO2 45.2 H Sodium Potassium Chloride Carbon Dioxide BUN Creatinine Glucose POC Glucose 107 H Calcium Phosphorus Magnesium Lipase - Diagnostic Findings Chest x-ray: report reviewed, image reviewed (severe reduction in lung volumes/poor inspiratory effort; cannot r/o CHF) Assessment and Plan Imp: 1. Constipation -> now diarrhea after laxatives 2. SIRS, r/o sepsis warren. intra-abdominal process or less likely pneumonia 3. COLUMBA, ? contrast-induced; r/o urinary retention 4. Hyperkalemia 2/2 #3 5. Obesity 6. Acute respiratory failure, hypoxia/hypercapnea; ? fluid overload in setting of COLUMBA Rec: 1. F/u blood cultures; UA was bland; cannot r/o pneumonia including aspiration given recent vomiting so will re-start Zosyn; lactic acid is pending 2. Holding IVFs for now; place lee; strict I/O 3. Has received appropriate therapy for hyperkalemia per renal, including bicarb tonight; f/u BMP tonight 4. Leave on NRB for now; BIPAP ordered for standby as no active vomiting reported tonight 5. Check LE dopplers; add DVT PPx 6. Further plans pending clinical course 7. No family present CCt 31 minutes
--- NOTE | 2019-07-22 21:05 | Event Note ---
Date: 07/22/19 I was called by Dr. West for advice on this case. Reviewed the medical chart including reviewing the radiographic images. Patient has significant colonic distention/dysfunction, but no signs of bowel compromise. Rec: 1) airway protection 2) volume resuscitation 3) schedule reglan for promotility 4) IM Neostigmine to help evacuate the colon 5) soap suds enema tonight 6) NGT placement 7) XR in AM. Will hold off on laxative until the XR shows some improvement in distention. Other than conservative measure, the only other thing I have to offer is a subtotal colectomy. He will most likely not do well with an ileostomy. If the conservative measures fail and he continues to decline, then we will proceed with surgery. Will do full consult in AM. Please call with questions. D/W with Dr. West.
--- NOTE | 2019-07-22 21:07 | Event Note ---
Date: 07/22/19 Patient reevaluated Discussed with Dr Brett PANDYA --Distended Colon and intestinal loops possible asp pneumonia IV Zosyn started Dr Ewing consult appreciated
[2019-07-22] MEDS: SODIUM BICARBONATE 150 MEQ in DEXTROSE 5% IN WATER 1,000 ML IV SCH (21:37)
[2019-07-22] MEDS: ENOXAPARIN 30 MG/0.3 ML INJ SUB-Q SCH (21:58)
[2019-07-22] MEDS ORDERED: ENOXAPARIN 40 MG/0.4 ML INJ SUB-Q SCH (22:00)
[2019-07-22 22:15] LABS: Calcium 8.2 mg/dL (8.4-10.2)
[2019-07-22] MEDS: traZODone 100 MG TAB PO SCH (22:32)
[2019-07-22] MEDS: BENZTROPINE 0.5 MG TAB PO SCH (23:02)
[2019-07-22] MEDS: PIPERACILLIN/TAZOBACTAM 3.375 3.375 GM/50 ML BAG IV SCH (23:05)
[2019-07-23] MEDS ORDERED: DEXTROSE 50% IN WATER (25GM) 50 ML SYRINGE IV ONE ×3 (02:08→08:18)
[2019-07-23] MEDS ORDERED: methylPREDNISolone Sod Succinate 125 MG/2 ML INJ ONE ×2 (02:11→07:24)
[2019-07-23 03:07] LABS: Hematocrit 44.3 % (35.5-45.6); Hemoglobin 14.7 gm/dl (11.8-15.2); Mean Corpuscular HGB Conc 33 % (32-34); Mean Corpuscular Volume 95 fl (84-94); Red Blood Count 4.68 M/mm3 (3.65-5.03); Red Cell Distribution Width 14.6 % (13.2-15.2)
[2019-07-23 03:29] LABS: Albumin 2.5 g/dL (3.9-5); Calcium 7.6 mg/dL (8.4-10.2)
[2019-07-23] MEDS ORDERED: INSULIN REGULAR, HUMAN 100 UNITS/1 ML SUB-Q ONE (04:00)
[2019-07-23] MEDS ORDERED: CALCIUM GLUCONATE 1,000 MG in SODIUM CHLORIDE 0.9% 100 ML IV ONE (04:00)
[2019-07-23] MEDS ORDERED: SODIUM BICARB 8.4% 50 MEQ/50 ML SYRINGE IV ONE (04:01)
[2019-07-23 04:04] LABS: Basophils % (Manual) 0 % (0.0-1.8); Eosinophils % (Manual) 0 % (0.0-4.3); Total Cells Counted 100
[2019-07-23 04:06] LABS: Anisocytosis 1+; Large Platelets Few; Platelet Count 118 K/mm3 (140-440); Platelet Estimate Cons
[2019-07-23] MEDS ORDERED: SODIUM CHLORIDE 0.9% 1000 ML 1,000 ML IV ONE ×3 (04:09→12:00)
[2019-07-23] MEDS ORDERED: ALBUMIN HUMAN 25% (25 GM/100 ML) INJ IV ONE (04:09)
[2019-07-23] MEDS ORDERED: SODIUM POLYSTYRENE 15 GM/60 ML ORAL LIQD PO ONE (04:10)
--- NOTE | 2019-07-23 04:10 | Cat Scan Report ---
CT abdomen pelvis wo con INDICATION / CLINICAL INFORMATION: MAIN: diminished bowel sounds, AMS. TECHNIQUE: All CT scans at this location are performed using CT dose reduction for ALARA by means of automated e xposure control. COMPARISON: 07/21/2019 FINDINGS: Limited lower thoracic images show interval development of dependent atelectasis in both lower lungs. Nasogastric tube is positioned in the stomach. ABDOMEN: Liver, spleen, pancreas and kidneys remain normal. There is mild fluid distention of proximal small bowel without demonstrated transition zone. There is been no significant decrease in the amount of fecal material within the colon. The colon rem ains distended with fluid and gas. Pelvis: The previously demonstrated fecal impaction within the rectum has decreased but a moderate amount of stool remains in place. The Mcpherson catheter is within the urinary bladder which is nondistended. No abnormal free fluid collections are seen in the pelvis. IMPRESSION: 1. Interval decrease in volume of colonic stool and rectal fecal impaction. 2. Nonspecific mild fluid distention of proximal small bowel. 3. Interval development of prominent dependent atelectasis in both lower lungs. Signer Name: Bernardino Perez MD Signed: 07/23/2019 4:06 AM Workstation Name: [id number]
--- NOTE | 2019-07-23 04:37 | Event Note ---
[facility] central line note I was requested by the hospitalist Nathaly Moya to place a central line for continued pressure support. Consent obtained by Wilder Moya Location: Right femoral The skin was prepped and draped in a sterile fashion. The skin and subcutaneous tissue was anesthetized with 1% lidocaine The needle was inserted blood was aspirated after first attempt Using the Seldinger technique a guidewire was inserted. A small incision was made and a dilator was placed. Blood return was good from all 3 ports. All ports were flushed with saline. The central venous line was secured in place with suture Sterile OpSite dressing was applied The patient tolerated the procedure well There were no complications
--- NOTE | 2019-07-23 05:30 | Event Note ---
<LACY MALLORY - Last Filed: 07/23/19 05:37> Date: 07/23/19 The bedside to assess patient, per nurse patient is not at baseline. Time of examination patient is hypotensive with systolic blood pressure in the low 80s on monitor, repeat manual blood pressure was done which showed systolic BP of 86, tachypneic respiratory rate in the 30s with O2 sat in low 90's (please note monitor showed respiratory rate in 60s to 70s this is not a true reading); that ABG showed pH 7.296/37.9/66/18.5. Patient will be transitioned from nasal cannula to BiPAP; oral temp of 98.5 however rectal exam showed 101 she was given Tylenol. On auscultation patient had faint bowel sounds 4. Repeat CT abdomen and pelvis was done. Patient had potassium of 7.5, patient received hyperkalemic cocktail. Renal was consult to an ordered Kayexalate 45 g, additional 1 L fluid bolus, and albumin 25g. CT Abd/Pelvis FINDINGS: Limited lower thoracic images show interval development of dependent atelectasis in both lower lungs. Nasogastric tube is positioned in the stomach. ABDOMEN: Liver, spleen, pancreas and kidneys remain normal. There is mild fluid distention of proximal small bowel without demonstrated transition zone. There is been no significant decrease in the amount of fecal material within the colon. The colon remains distended with fluid and gas. Pelvis: The previously demonstrated fecal impaction within the rectum has decreased but a moderate amount of stool remains in place. The Mcpherson catheter is within the urinary bladder which is nondistended. No abnormal free fluid collections are seen in the pelvis. IMPRESSION: 1. Interval decrease in volume of colonic stool and rectal fecal impaction. 2. Nonspecific mild fluid distention of proximal small bowel. 3. Interval development of prominent dependent atelectasis in both lower lungs. <MARGARET MENDOZA - Last Filed: 07/23/19 06:35> Patient seen and examined with [employer]ORY MANAGER, follow repeat potassium.
[2019-07-23] MEDS ORDERED: methylPREDNISolone Sod Succinate 125 MG/2 ML INJ IV ONE (07:00)
--- NOTE | 2019-07-23 07:05 | Progress Note ---
Assessment and Plan 1. Acute kidney injury: Suspect vasomotor COLUMBA in the setting of volume depletion. Other possibility is phosphate nephropathy. Declining renal function is likely due to hypotension. Continue IV fluids. Monitor renal function. Avoid nephrotoxic agents. Meds dosage based on GFR. 2. FEN: Hyperkalemia, Insulin-Dextrose, Kayexalate and IV Calcium given. Due to very high potassium level patient require hemodialysis. Await repeat potassium level. If K level remains high will proceed with hemodialysis. D/w his mother over the phone and explained the indications, benefits and risks involved in hemodialysis. She voiced understanding and gave verbal consent. Metabolic acidosis, on bicarbonate drip. Hyponatremia, monitor. Monitor lytes. 3. Hypotension: IV fluid bolus. 4. Colonic distention: D/w . 5. Sepsis. 6. Sinus tachycardia. Examination: General appearance: well-developed, well-nourished, appears stated age, obese, on BIPAP & restrains, NG tube noted HEENT: ATNC, PERRL Neck: neck supple, trachea midline Respiratory: Clear to Ascultation Heart: regular, tachycardia, S1S2, no murmur Gastrointestinal: obese, distended, bowel sounds are heard Integumentary: no rash, warm and dry : Mcpherson catheter Neurologic: barely arousable Musculoskeletal: no deformity Subjective Date of service: 07/23/19 Interval history: Patient was seen and examined at the bedside. Events overnight noted. Objective - Vital Signs Vital signs: Vital Signs - 12hr 07/22/19 07/22/19 07/22/19 19:43 20:00 23:46 Temperature 100.1 F H 100 F H Pulse Rate Respiratory Rate O2 Sat by Pulse 96 Oximetry 07/23/19 07/23/19 04:00 04:44 Temperature 98.8 F Pulse Rate 146 H Respiratory 41 H Rate O2 Sat by Pulse 97 Oximetry - Lab 07/23/19 02:50 07/23/19 02:50 Most recent lab results Calcium 7.6 mg/dL (8.4-10.2) L 07/23/19 02:50 Phosphorus 4.10 mg/dL (2.5-4.5) 07/23/19 02:50 Magnesium 2.90 mg/dL (1.7-2.3) H 07/23/19 02:50 Medications & Allergies - Medications Allergies/Adverse Reactions: Allergies No Known Allergies Allergy (Verified 10/20/15 03:43) Home Medications: Home Medications Medication Instructions Recorded Confirmed Last Taken Type Benztropine [Cogentin] 0.5 mg PO QHS 05/17/19 06/05/19 Unknown History Divalproex ER [Depakote ER] 500 mg PO BID 05/17/19 06/05/19 Unknown History clonazePAM [KlonoPIN] 2 mg PO BID 05/17/19 06/05/19 Unknown History traZODone [Desyrel] 100 mg PO HS 06/05/19 06/05/19 Unknown History Acetaminophen [Acetaminophen TAB] 650 mg PO Q4H PRN tablet 06/06/19 Unknown Rx Divalproex ER [Depakote ER] 500 mg PO BID tablet 06/06/19 Unknown Rx Lactulose 10 gm PO DAILY PRN #150 ml 07/21/19 Unknown Rx Ondansetron [Zofran Odt] 4 mg PO Q8HR PRN #14 tab.rapdis 07/21/19 Unknown Rx Sodium Phosphate,[place]-Dibasic 118 ml RC ONCE #1 enema 07/21/19 Unknown Rx [Fleet Enema] Active Medications: Generic Name Dose Route Start Last Admin Trade Name Freq PRN Reason Stop Dose Admin Acetaminophen 650 mg 07/23/19 02:48 Tylenol [place] Q4H PRN Fever >100.5 Benztropine Mesylate 0.5 mg 07/22/19 22:00 07/22/19 23:02 Cogentin PO 0.5 mg QHS STEPHEN Administration Bisacodyl 10 mg 07/21/19 22:25 Dulcolax PO QDAY PRN Constipation Clonazepam 2 mg 07/22/19 10:00 07/22/19 21:58 Klonopin PO 2 mg BID STE[facility] Administration Divalproex Sodium 500 mg 07/22/19 10:00 07/22/19 23:03 Depakote Er PO 500 mg BID [facility]EN Administration Docusate Sodium 100 mg 07/22/19 02:00 07/22/19 21:58 Colace PO 100 mg BID STEPHEN Administration Enoxaparin Sodium 30 mg 07/22/19 22:00 07/22/19 21:58 Lovenox SUB-Q 30 mg QDAY@2200 STEPHEN Administration Sodium Chloride 1,000 mls @ 125 mls/hr 07/21/19 23:00 07/22/19 16:33 Nacl 0.9% 1000 Ml IV 125 mls/hr DIRECT STEPHEN Administration Sodium Chloride 1,000 mls @ 999 mls/hr 07/22/19 12:05 07/22/19 14:42 Nacl 0.9% 1000 Ml IV 07/23/19 13:06 999 mls/hr ONCE STEPHEN Administration Piperacillin Sod/Tazobactam Sod 3.375 gm in 50 mls @ 100 mls/hr 07/22/19 22:00 07/22/19 23:05 Zosyn/Ns 3.375gm/50ml IV 100 mls/hr Q8HR [facility] Administration Protocol Sodium Bicarbonate 150 meq/ 1,150 mls @ 125 mls/hr 07/22/19 22:00 07/22/19 21:37 Dextrose IV 125 mls/hr DIRECT TSEPHEN Administration Phenylephrine HCl 100 mg/ 100 mls @ 3 mls/hr 07/23/19 02:45 Sodium Chloride IV TITR STEPHEN Protocol 50 MCG/MIN Loperamide HCl 2 mg 07/22/19 17:30 Imodium PO Q2H PRN Diarrhea Metoclopramide HCl 5 mg 07/22/19 22:00 07/22/19 21:59 Reglan IV 5 mg Q6H STEPHEN Administration Ondansetron HCl 4 mg 07/21/19 22:25 07/22/19 01:07 Zofran IV 4 mg Q8H PRN Administration Nausea And Vomiting Trazodone HCl 100 mg 07/22/19 22:00 07/22/19 22:32 Desyrel PO 100 mg HS STEPHEN Administration
[2019-07-23] MEDS: PHENYLEPHRINE 100 MG in SODIUM CHLORIDE 0.9% 90 ML IV SCH ×4 (07:30→21:06)
[2019-07-23] MEDS: PIPERACILLIN/TAZOBACTAM 3.375 3.375 GM/50 ML BAG IV SCH ×2 (07:45→14:00)
--- NOTE | 2019-07-23 07:53 | Consultation ---
History of Present Illness Consult date: 07/23/19 Reason for consult: abdominal pain Requesting physician: NATI CARREON Chief complaint: abdominal pain - History of present illness History of present illness: Patient is 19 years old male with history of Down syndrome who initially presented to ED for abdominal pain and vomiting. Patient lives in a long-term. Patient described his pain as diffuse with no radiation. Patient denied any fever or chills. He was assessed to have severe constipation and subsequently admitted to the medicine service for laxative therapy. In the interim, he began to decompensate from a cardiorespiratory standpoint and was transferred to ICU. Pt currently on BiPap and unable to answer any questions. Spoke with mother -- She reports that he has a chronic history of a dilated colon. He had a similar issue in 2015 for which an Ex Lap was done by Dr. Davis at [facility]. A partial colectomy was done and an ostomy was created. He later had the ostomy reversed in 2017. He chronically will hold his stool until he can tolerate it anymore. He usually has very large bowel movements. He does not require regular laxative or enema use. Past History Past Medical History: other (Downs syndrome) Past Surgical History: bowel surgery (ex lap with partial colectomy and ostomy in 06/2016. Ostomy reversal in 2017. ) Social history: full code, other (lives in long-term). denies: smoking, alcohol abuse, prescription drug abuse, IV drug use Family history: other (No pulm issues reported) Medications and Allergies Allergies Allergy/AdvReac Type Severity Reaction Status Date / Time No Known Allergies Allergy Verified 10/20/15 03:43 Home Medications Medication Instructions Recorded Confirmed Last Taken Type Benztropine [Cogentin] 0.5 mg PO QHS 05/17/19 06/05/19 Unknown History Divalproex ER [Depakote ER] 500 mg PO BID 05/17/19 06/05/19 Unknown History clonazePAM [KlonoPIN] 2 mg PO BID 05/17/19 06/05/19 Unknown History traZODone [Desyrel] 100 mg PO HS 06/05/19 06/05/19 Unknown History Acetaminophen [Acetaminophen TAB] 650 mg PO Q4H PRN tablet 06/06/19 Unknown Rx Divalproex ER [Depakote ER] 500 mg PO BID tablet 06/06/19 Unknown Rx Lactulose 10 gm PO DAILY PRN #150 ml 07/21/19 Unknown Rx Ondansetron [Zofran Odt] 4 mg PO Q8HR PRN #14 tab.rapdis 07/21/19 Unknown Rx Sodium Phosphate,[place]-Dibasic 118 ml RC ONCE #1 enema 07/21/19 Unknown Rx [Fleet Enema] Active Meds: Active Medications Acetaminophen (Tylenol) 650 mg MN Q4H PRN PRN Reason: Fever >100.5 Benztropine Mesylate (Cogentin) 0.5 mg PO QHS [facility] Last Admin: 07/22/19 23:02 Dose: 0.5 mg Documented by: Bisacodyl (Dulcolax) 10 mg PO QDAY PRN PRN Reason: Constipation Clonazepam (Klonopin) 2 mg PO BID [facility] Last Admin: 07/22/19 21:58 Dose: 2 mg Documented by: Divalproex Sodium (Depakote Er) 500 mg PO BID [facility] Last Admin: 07/22/19 23:03 Dose: 500 mg Documented by: Docusate Sodium (Colace) 100 mg PO BID [facility] Last Admin: 07/22/19 21:58 Dose: 100 mg Documented by: Enoxaparin Sodium (Lovenox) 30 mg SUB-Q QDAY@2200 [facility] Last Admin: 07/22/19 21:58 Dose: 30 mg Documented by: Sodium Chloride (Nacl 0.9% 1000 Ml) 1,000 mls @ 125 mls/hr IV DIRECT [facility] Last Admin: 07/22/19 16:33 Dose: 125 mls/hr Documented by: Sodium Chloride (Nacl 0.9% 1000 Ml) 1,000 mls @ 999 mls/hr IV ONCE [facility] Stop: 07/23/19 13:06 Last Admin: 07/22/19 14:42 Dose: 999 mls/hr Documented by: Piperacillin Sod/Tazobactam Sod (Zosyn/Ns 3.375gm/50ml) 3.375 gm in 50 mls @ 100 mls/hr IV Q8HR [facility]; Protocol Last Admin: 07/23/19 07:45 Dose: 100 mls/hr Documented by: Sodium Bicarbonate 150 meq/ (Dextrose) 1,150 mls @ 125 mls/hr IV DIRECT [facility] Last Admin: 07/22/19 21:37 Dose: 125 mls/hr Documented by: Phenylephrine HCl 100 mg/ (Sodium Chloride) 100 mls @ 3 mls/hr IV TITR STEPHEN; Protocol Sodium Chloride (Nacl 0.9% 1000 Ml) 1,000 mls @ 999 mls/hr IV BOLUS ONE Stop: 07/23/19 09:00 Loperamide HCl (Imodium) 2 mg PO Q2H PRN PRN Reason: Diarrhea Metoclopramide HCl (Reglan) 5 mg IV Q6H STEPHEN Last Admin: 07/22/19 21:59 Dose: 5 mg Documented by: Ondansetron HCl (Zofran) 4 mg IV Q8H PRN PRN Reason: Nausea And Vomiting Last Admin: 07/22/19 01:07 Dose: 4 mg Documented by: Trazodone HCl (Desyrel) 100 mg PO HS STEPHEN Last Admin: 07/22/19 22:32 Dose: 100 mg Documented by: Review of Systems ROS unobtainable: due to mental status Exam Vital Signs Temp Pulse Resp BP Pulse Ox 98.6 F 103 H 18 109/59 96 07/21/19 18:35 07/21/19 18:35 07/21/19 18:35 07/21/19 18:35 07/21/19 18:35 - General physical appearance Positive: well developed, well nourished, obese, other (minimally responsive) - Respiratory Positive: clear to auscultation, other (increased work of breathing) - Cardiovascular Rhythm: regular (tachy) - Abdomen Abdomen: Present: soft, bowel sounds hypoactive, surgical scars (well healed m idline scar and left sided ostomy scar), other (First exam - soft without firmness, guarding, or any apparent tenderness. Second exam (during XR) - +guarding and facial grimacing) - Integumentary no rash, no growths, no abnormal pigmentation Results - Labs 07/23/19 02:50 07/23/19 07:30 Abnormal lab results 07/22/19 07/22/19 07/22/19 Range/Units 10:50 10:50 15:33 WBC 13.7 H 13.1 H (4.5-11.0) K/mm3 RBC 5.56 H 5.10 H (3.65-5.03) M/mm3 Hgb 17.1 H 15.9 H (11.8-15.2) gm/dl Hct 52.9 H D 49.0 H (35.5-45.6) % MCV 95 H 96 H (84-94) fl Plt Count 137 L 127 L (140-440) K/mm3 Lymphocytes % (Manual) (13.4-35.0) % Monocytes % (Manual) (0.0-7.3) % Monocytes # (Manual) (0.0-0.8) K/mm3 D-Dimer (0-234) ng/mlDDU POC ABG pH (7.35-7.45) POC ABG pCO2 (35-45) POC ABG pO2 (80-105) Sodium (137-145) mmol/L Potassium 5.3 H D (3.6-5.0) mmol/L Chloride 96.7 L (98-107) mmol/L Carbon Dioxide (22-30) mmol/L BUN 22 H (9-20) mg/dL Creatinine 2.0 H D (0.8-1.5) mg/dL Glucose 129 H (75-100) mg/dL POC Glucose (70-105) Lactic Acid (0.7-2.0) mmol/L Calcium (8.4-10.2) mg/dL Phosphorus 4.70 H (2.5-4.5) mg/dL Magnesium 3.10 H (1.7-2.3) mg/dL AST (5-40) units/L NT-Pro-B Natriuret Pep (0-450) pg/mL Total Protein (6.3-8.2) g/dL Albumin (3.9-5) g/dL 07/22/19 07/22/19 07/22/19 Range/Units 15:33 18:19 18:42 WBC (4.5-11.0) K/mm3 RBC (3.65-5.03) M/mm3 Hgb (11.8-15.2) gm/dl Hct (35.5-45.6) % MCV (84-94) fl Plt Count (140-440) K/mm3 Lymphocytes % (Manual) (13.4-35.0) % Monocytes % (Manual) (0.0-7.3) % Monocytes # (Manual) (0.0-0.8) K/mm3 D-Dimer (0-234) ng/mlDDU POC ABG pH 7.197 L (7.35-7.45) POC ABG pCO2 45.2 H (35-45) POC ABG pO2 (80-105) Sodium 136 L (137-145) mmol/L Potassium 6.0 H (3.6-5.0) mmol/L Chloride (98-107) mmol/L Carbon Dioxide 17 L (22-30) mmol/L BUN 29 H (9-20) mg/dL Creatinine 2.2 H (0.8-1.5) mg/dL Glucose 121 H (75-100) mg/dL POC Glucose 107 H (70-105) Lactic Acid (0.7-2.0) mmol/L Calcium 8.2 L (8.4-10.2) mg/dL Phosphorus (2.5-4.5) mg/dL Magnesium (1.7-2.3) mg/dL AST (5-40) units/L NT-Pro-B Natriuret Pep (0-450) pg/mL Total Protein (6.3-8.2) g/dL Albumin (3.9-5) g/dL 07/22/19 07/22/19 07/22/19 Range/Units 21:45 21:45 21:45 WBC (4.5-11.0) K/mm3 RBC (3.65-5.03) M/mm3 Hgb (11.8-15.2) gm/dl Hct (35.5-45.6) % MCV (84-94) fl Plt Count (140-440) K/mm3 Lymphocytes % (Manual) (13.4-35.0) % Monocytes % (Manual) (0.0-7.3) % Monocytes # (Manual) (0.0-0.8) K/mm3 D-Dimer 886.89 H (0-234) ng/mlDDU POC ABG pH (7.35-7.45) POC ABG pCO2 (35-45) POC ABG pO2 (80-105) Sodium (137-145) mmol/L Potassium (3.6-5.0) mmol/L Chloride (98-107) mmol/L Carbon Dioxide (22-30) mmol/L BUN (9-20) mg/dL Creatinine (0.8-1.5) mg/dL Glucose (75-100) mg/dL POC Glucose (70-105) Lactic Acid 3.10 H* (0.7-2.0) mmol/L Calcium (8.4-10.2) mg/dL Phosphorus (2.5-4.5) mg/dL Magnesium (1.7-2.3) mg/dL AST (5-40) units/L NT-Pro-B Natriuret Pep 5407 H (0-450) pg/mL Total Protein (6.3-8.2) g/dL Albumin (3.9-5) g/dL 07/22/19 07/23/19 07/23/19 Range/Units 21:45 02:11 02:50 WBC (4.5-11.0) K/mm3 RBC (3.65-5.03) M/mm3 Hgb (11.8-15.2) gm/dl Hct (35.5-45.6) % MCV (84-94) fl Plt Count (140-440) K/mm3 Lymphocytes % (Manual) (13.4-35.0) % Monocytes % (Manual) (0.0-7.3) % Monocytes # (Manual) (0.0-0.8) K/mm3 D-Dimer (0-234) ng/mlDDU POC ABG pH (7.35-7.45) POC ABG pCO2 (35-45) POC ABG pO2 (80-105) Sodium 136 L (137-145) mmol/L Potassium 5.6 H (3.6-5.0) mmol/L Chloride (98-107) mmol/L Carbon Dioxide 20 L (22-30) mmol/L BUN 38 H (9-20) mg/dL Creatinine 2.6 H (0.8-1.5) mg/dL Glucose 63 L (75-100) mg/dL POC Glucose 69 L (70-105) Lactic Acid 3.30 H* (0.7-2.0) mmol/L Calcium 8.2 L (8.4-10.2) mg/dL Phosphorus (2.5-4.5) mg/dL Magnesium (1.7-2.3) mg/dL AST (5-40) units/L NT-Pro-B Natriuret Pep (0-450) pg/mL Total Protein (6.3-8.2) g/dL Albumin (3.9-5) g/dL 07/23/19 07/23/19 07/23/19 Range/Units 02:50 02:50 03:09 WBC 15.0 H (4.5-11.0) K/mm3 RBC (3.65-5.03) M/mm3 Hgb (11.8-15.2) gm/dl Hct (35.5-45.6) % MCV 95 H (84-94) fl Plt Count 118 L (140-440) K/mm3 Lymphocytes % (Manual) 9.0 L (13.4-35.0) % Monocytes % (Manual) 17.0 H (0.0-7.3) % Monocytes # (Manual) 2.6 H (0.0-0.8) K/mm3 D-Dimer (0-234) ng/mlDDU POC ABG pH 7.296 L (7.35-7.45) POC ABG pCO2 (35-45) POC ABG pO2 66 L (80-105) Sodium 134 L (137-145) mmol/L Potassium 7.5 H* D (3.6-5.0) mmol/L Chloride (98-107) mmol/L Carbon Dioxide 21 L (22-30) mmol/L BUN 47 H (9-20) mg/dL Creatinine 2.7 H (0.8-1.5) mg/dL Glucose (75-100) mg/dL POC Glucose (70-105) Lactic Acid (0.7-2.0) mmol/L Calcium 7.6 L (8.4-10.2) mg/dL Phosphorus (2.5-4.5) mg/dL Magnesium 2.90 H (1.7-2.3) mg/dL AST 60 H (5-40) units/L NT-Pro-B Natriuret Pep (0-450) pg/mL Total Protein 5.5 L D (6.3-8.2) g/dL Albumin 2.5 L (3.9-5) g/dL 07/23/19 Range/Units 04:30 WBC (4.5-11.0) K/mm3 RBC (3.65-5.03) M/mm3 Hgb (11.8-15.2) gm/dl Hct (35.5-45.6) % MCV (84-94) fl Plt Count (140-440) K/mm3 Lymphocytes % (Manual) (13.4-35.0) % Monocytes % (Manual) (0.0-7.3) % Monocytes # (Manual) (0.0-0.8) K/mm3 D-Dimer (0-234) ng/mlDDU POC ABG pH (7.35-7.45) POC ABG pCO2 (35-45) POC ABG pO2 (80-105) Sodium (137-145) mmol/L Potassium (3.6-5.0) mmol/L Chloride (98-107) mmol/L Carbon Dioxide (22-30) mmol/L BUN (9-20) mg/dL Creatinine (0.8-1.5) mg/dL Glucose (75-100) mg/dL POC Glucose (70-105) Lactic Acid 3.50 H* (0.7-2.0) mmol/L Calcium (8.4-10.2) mg/dL Phosphorus (2.5-4.5) mg/dL Magnesium (1.7-2.3) mg/dL AST (5-40) units/L NT-Pro-B Natriuret Pep (0-450) pg/mL Total Protein (6.3-8.2) g/dL Albumin (3.9-5) g/dL Diabetes panel 07/22/19 07/22/19 07/22/19 Range/Units 10:50 15:33 21:45 Sodium 138 136 L 136 L (137-145) mmol/L Potassium 5.3 H D 6.0 H 5.6 H (3.6-5.0) mmol/L Chloride 96.7 L 101.5 102.3 (98-107) mmol/L Carbon Dioxide 22 17 L 20 L (22-30) mmol/L BUN 22 H 29 H 38 H (9-20) mg/dL Creatinine 2.0 H D 2.2 H 2.6 H (0.8-1.5) mg/dL Glucose 129 H 121 H 63 L (75-100) mg/dL Calcium 9.1 8.2 L 8.2 L (8.4-10.2) mg/dL AST (5-40) units/L ALT (7-56) units/L Alkaline Phosphatase (35-129) units/L Total Protein (6.3-8.2) g/dL Albumin (3.9-5) g/dL 07/23/19 Range/Units 02:50 Sodium 134 L (137-145) mmol/L Potassium 7.5 H* D (3.6-5.0) mmol/L Chloride 101.4 (98-107) mmol/L Carbon Dioxide 21 L (22-30) mmol/L BUN 47 H (9-20) mg/dL Creatinine 2.7 H (0.8-1.5) mg/dL Glucose 78 (75-100) mg/dL Calcium 7.6 L (8.4-10.2) mg/dL AST 60 H (5-40) units/L ALT 15 (7-56) units/L Alkaline Phosphatase 50 (35-129) units/L Total Protein 5.5 L D (6.3-8.2) g/dL Albumin 2.5 L (3.9-5) g/dL Calcium panel 07/22/19 07/22/19 07/22/19 Range/Units 10:50 15:33 21:45 Calcium 9.1 8.2 L 8.2 L (8.4-10.2) mg/dL Phosphorus 4.70 H (2.5-4.5) mg/dL Albumin (3.9-5) g/dL 07/23/19 Range/Units 02:50 Calcium 7.6 L (8.4-10.2) mg/dL Phosphorus 4.10 (2.5-4.5) mg/dL Albumin 2.5 L (3.9-5) g/dL Pituitary panel 07/22/19 07/22/19 07/22/19 Range/Units 10:50 15:33 21:45 Sodium 138 136 L 136 L (137-145) mmol/L Potassium 5.3 H D 6.0 H 5.6 H (3.6-5.0) mmol/L Chloride 96.7 L 101.5 102.3 (98-107) mmol/L Carbon Dioxide 22 17 L 20 L (22-30) mmol/L BUN 22 H 29 H 38 H (9-20) mg/dL Creatinine 2.0 H D 2.2 H 2.6 H (0.8-1.5) mg/dL Glucose 129 H 121 H 63 L (75-100) mg/dL Calcium 9.1 8.2 L 8.2 L (8.4-10.2) mg/dL 07/23/19 Range/Units 02:50 Sodium 134 L (137-145) mmol/L Potassium 7.5 H* D (3.6-5.0) mmol/L Chloride 101.4 (98-107) mmol/L Carbon Dioxide 21 L (22-30) mmol/L BUN 47 H (9-20) mg/dL Creatinine 2.7 H (0.8-1.5) mg/dL Glucose 78 (75-100) mg/dL Calcium 7.6 L (8.4-10.2) mg/dL Adrenal panel 07/22/19 07/22/19 07/22/19 Range/Units 10:50 15:33 21:45 Sodium 138 136 L 136 L (137-145) mmol/L Potassium 5.3 H D 6.0 H 5.6 H (3.6-5.0) mmol/L Chloride 96.7 L 101.5 102.3 (98-107) mmol/L Carbon Dioxide 22 17 L 20 L (22-30) mmol/L BUN 22 H 29 H 38 H (9-20) mg/dL Creatinine 2.0 H D 2.2 H 2.6 H (0.8-1.5) mg/dL Glucose 129 H 121 H 63 L (75-100) mg/dL Calcium 9.1 8.2 L 8.2 L (8.4-10.2) mg/dL Total Bilirubin (0.1-1.2) mg/dL AST (5-40) units/L ALT (7-56) units/L Alkaline Phosphatase (35-129) units/L Total Protein (6.3-8.2) g/dL Albumin (3.9-5) g/dL 07/23/19 Range/Units 02:50 Sodium 134 L (137-145) mmol/L Potassium 7.5 H* D (3.6-5.0) mmol/L Chloride 101.4 (98-107) mmol/L Carbon Dioxide 21 L (22-30) mmol/L BUN 47 H (9-20) mg/dL Creatinine 2.7 H (0.8-1.5) mg/dL Glucose 78 (75-100) mg/dL Calcium 7.6 L (8.4-10.2) mg/dL Total Bilirubin 1.00 (0.1-1.2) mg/dL AST 60 H (5-40) units/L ALT 15 (7-56) units/L Alkaline Phosphatase 50 (35-129) units/L Total Protein 5.5 L D (6.3-8.2) g/dL Albumin 2.5 L (3.9-5) g/dL - Imaging Abdominal x-ray: report reviewed, image reviewed CT scan - abdomen: report reviewed, image reviewed CT scan - pelvis: report reviewed, image reviewed Assessment and Plan - Patient Problems (1) Abdominal pain Current Visit: Yes Status: Acute Qualifiers: Abdominal location: generalized Qualified Code(s): R10.84 - Generalized abdominal pain Plan to address problem: Pt in guarded condition. I am concerned that colon compromise could be causing this current picture. Difficult to know for sure due to multiple issues... 1) Has a chronically dilated colon. CT from 2018 shows the transverse colon to be almost 7cm in diameter. 2) He is unable to assist with history or exam. 3) The current vitals could be secondary to cardiopulm issues. I believe the patient needs to be intubated. Dr. Carreon has already spoke to Dr. Ewing about this . His abdominal imaging is improved compared to initial CT. There have been no signs of pneumotosis or free fluid. We are limited by lack of IV contrast. Will continue with enema/suppository this AM while the hyperkalemia and airway issue are being addressed. Of note, the bowel movements so far have not had any blood or blackness to them. I think that if he is not showing improvement after the airway is secured and he is sedated, then we should proceed with an ex-lap. In anticipation of this, I have already obtained consent from Mom this morning. She was in agreement and wanted everything done to help her son. Will follow closely. Will re-evaluate later this morning. Please call with questions. time=60min
[2019-07-23 08:05] LABS: Calcium 7.6 mg/dL (8.4-10.2)
[2019-07-23] MEDS ORDERED: CALCIUM GLUCONATE 2,000 MG in SODIUM CHLORIDE 0.9% 100 ML IV ONE (09:00)
[2019-07-23] MEDS ORDERED: INSULIN REGULAR, HUMAN 100 UNITS/1 ML IV ONE (09:00)
--- NOTE | 2019-07-23 09:08 | XRay Report ---
ABDOMEN 1 VIEW(S) INDICATION / CLINICAL INFORMATION: colonic distention. COMPARISON: 07/22/2019 at 1851 hours FINDINGS: TUBES / LINES: Nasogastric tube terminates in the distal stomach. Right femoral catheter terminates a t the level of the right acetabulum. BOWEL GAS PATTERN: Gaseous distention of the colon has decreased by approximately 50% since the previ ous exam. No obvious small bowel distention. There is relatively normal stool in the colon. FREE AIR / EXTRALUMINAL GAS: None seen. ADDITIONAL FINDINGS: No significant additional findings. IMPRESSION: 50% decrease in gaseous distention of the colon. Signer Name: Jacob Corrales Jr, MD Signed: 07/23/2019 9:04 AM Workstation Name: [id number]
[2019-07-23] MEDS ORDERED: BISACODYL 10 MG RECT SUPP PR ONE (09:30)
[2019-07-23 09:33] LABS: Calcium 7.7 mg/dL (8.4-10.2)
[2019-07-23] MEDS ORDERED: ROCURONIUM 50 MG/5 ML INJ IV ONE ×2 (09:50→16:52)
[2019-07-23] MEDS ORDERED: ETOMIDATE 20 MG/10 ML INJ IV ONE (09:50)
--- NOTE | 2019-07-23 09:53 | Progress Note ---
Subjective Date of service: 07/23/19 Principal diagnosis: Respiratory Failure Interval history: Called by Dr Alejandro - Mooner for emergent intubation for patient in CCU currently on BIPAP who is experiencing respiratory failure Patient was emergently intubated IV meds given Etomidate 20 mg and Rocuronium 50 mg IV Cecil oscope used with Mac 4 blade and stylet Intubation uneventful Post intubation - Chest rise observed , color change observed and patient will get CXR in CCU Patient will be placed on ventilator by resp Nginx, CCU will manage ventilator Janine Beltran MD Assisted by B[facility]ark BATISTA Objective - Constitutional Vitals: Vital Signs - 12hr 07/22/19 07/22/19 07/22/19 23:31 23:41 23:46 Temperature 100 F H Pulse Rate 150 H 147 H Respiratory 47 H 25 H Rate Blood Pressure 103/48 103/48 O2 Sat by Pulse 91 89 Oximetry 07/22/19 07/23/19 07/23/19 23:51 00:01 00:11 Temperature Pulse Rate 146 H 148 H 148 H Respiratory 16 12 68 H Rate Blood Pressure 103/48 103/48 99/39 O2 Sat by Pulse 90 93 92 Oximetry 07/23/19 07/23/19 07/23/19 00:20 00:31 00:41 Temperature Pulse Rate 149 H 146 H Respiratory 23 16 Rate Blood Pressure 98/40 99/39 99/39 O2 Sat by Pulse 90 89 Oximetry 07/23/19 07/23/19 07/23/19 00:51 01:01 01:11 Temperature Pulse Rate 148 H 145 H Respiratory 37 H 54 H Rate Blood Pressure 99/39 99/39 99/39 O2 Sat by Pulse 85 90 91 Oximetry 07/23/19 07/23/19 07/23/19 01:21 01:31 01:41 Temperature Pulse Rate 153 H 151 H Respiratory 20 60 H Rate Blood Pressure 99/39 99/39 99/39 O2 Sat by Pulse 88 91 93 Oximetry 07/23/19 07/23/19 07/23/19 01:51 02:01 02:11 Temperature Pulse Rate 149 H 150 H 151 H Respiratory 36 H 19 63 H Rate Blood Pressure 99/39 99/39 99/39 O2 Sat by Pulse 94 93 91 Oximetry 07/23/19 07/23/19 07/23/19 02:21 02:31 02:41 Temperature Pulse Rate 151 H 151 H 149 H Respiratory 62 H 72 H 66 H Rate Blood Pressure 82/21 80/35 80/35 O2 Sat by Pulse 93 97 97 Oximetry 07/23/19 07/23/19 07/23/19 02:51 03:01 03:47 Temperature Pulse Rate 151 H 152 H 152 H Respiratory 67 H 65 H Rate Blood Pressure 80/35 80/35 80/35 O2 Sat by Pulse 90 89 Oximetry 07/23/19 07/23/19 07/23/19 03:51 04:00 04:01 Temperature 98.8 F Pulse Rate 148 H 149 H Respiratory 13 32 H Rate Blood Pressure 80/35 80/35 O2 Sat by Pulse 93 94 Oximetry 07/23/19 07/23/19 07/23/19 04:11 04:21 04:31 Temperature Pulse Rate 149 H 151 H 151 H Respiratory 49 H 63 H 60 H Rate Blood Pressure 80/35 80/35 80/35 O2 Sat by Pulse 94 94 94 Oximetry 07/23/19 07/23/19 07/23/19 04:41 04:44 04:51 Temperature Pulse Rate 146 H 146 H 146 H Respiratory 27 H 41 H 40 H Rate Blood Pressure 80/35 80/35 O2 Sat by Pulse 97 97 99 Oximetry 07/23/19 07/23/19 07/23/19 05:01 05:11 05:21 Temperature Pulse Rate 150 H 144 H 143 H Respiratory 60 H 41 H 34 H Rate Blood Pressure 80/35 80/35 103/42 O2 Sat by Pulse 96 98 96 Oximetry 07/23/19 07/23/19 07/23/19 05:31 05:41 05:51 Temperature Pulse Rate 143 H 142 H 144 H Respiratory 36 H 38 H 55 H Rate Blood Pressure 115/35 115/35 116/69 O2 Sat by Pulse 93 93 99 Oximetry 07/23/19 07/23/19 07/23/19 06:01 06:11 06:21 Temperature Pulse Rate 143 H 138 H 144 H Respiratory 43 H 18 65 H Rate Blood Pressure 102/41 102/41 102/41 O2 Sat by Pulse 100 98 99 Oximetry 07/23/19 07/23/19 07/23/19 06:31 06:41 06:51 Temperature Pulse Rate 144 H 143 H 145 H Respiratory 40 H 40 H 59 H Rate Blood Pressure 91/43 91/43 111/39 O2 Sat by Pulse 99 100 100 Oximetry 07/23/19 07/23/19 07/23/19 07:01 07:10 07:20 Temperature Pulse Rate 142 H 144 H 144 H Respiratory 45 H 69 H 48 H Rate Blood Pressure 111/39 98/44 98/44 O2 Sat by Pulse 98 100 98 Oximetry 07/23/19 07/23/19 07/23/19 07:30 07:40 07:50 Temperature Pulse Rate 140 H 141 H 144 H Respiratory 38 H 46 H 47 H Rate Blood Pressure 92/36 98/44 98/41 O2 Sat by Pulse 97 97 97 Oximetry 07/23/19 07/23/19 08:00 08:10 Temperature Pulse Rate 140 H 140 H Respiratory 41 H 46 H Rate Blood Pressure 104/44 101/54 O2 Sat by Pulse 100 100 Oximetry - Labs CBC & Chem 7: 07/23/19 02:50 07/23/19 09:03 Labs: Abnormal lab results 07/22/19 07/22/19 07/22/19 Range/Units 10:50 10:50 15:33 WBC 13.7 H 13.1 H (4.5-11.0) K/mm3 RBC 5.56 H 5.10 H (3.65-5.03) M/mm3 Hgb 17.1 H 15.9 H (11.8-15.2) gm/dl Hct 52.9 H D 49.0 H (35.5-45.6) % MCV 95 H 96 H (84-94) fl Plt Count 137 L 127 L (140-440) K/mm3 Lymphocytes % (Manual) (13.4-35.0) % Monocytes % (Manual) (0.0-7.3) % Monocytes # (Manual) (0.0-0.8) K/mm3 D-Dimer (0-234) ng/mlDDU POC ABG pH (7.35-7.45) POC ABG pCO2 (35-45) POC ABG pO2 (80-105) Sodium (137-145) mmol/L Potassium 5.3 H D (3.6-5.0) mmol/L Chloride 96.7 L (98-107) mmol/L Carbon Dioxide (22-30) mmol/L BUN 22 H (9-20) mg/dL Creatinine 2.0 H D (0.8-1.5) mg/dL Glucose 129 H (75-100) mg/dL POC Glucose (70-105) Lactic Acid (0.7-2.0) mmol/L Calcium (8.4-10.2) mg/dL Phosphorus 4.70 H (2.5-4.5) mg/dL Magnesium 3.10 H (1.7-2.3) mg/dL AST (5-40) units/L NT-Pro-B Natriuret Pep (0-450) pg/mL Total Protein (6.3-8.2) g/dL Albumin (3.9-5) g/dL 07/22/19 07/22/19 07/22/19 Range/Units 15:33 18:19 18:42 WBC (4.5-11.0) K/mm3 RBC (3.65-5.03) M/mm3 Hgb (11.8-15.2) gm/dl Hct (35.5-45.6) % MCV (84-94) fl Plt Count (140-440) K/mm3 Lymphocytes % (Manual) (13.4-35.0) % Monocytes % (Manual) (0.0-7.3) % Monocytes # (Manual) (0.0-0.8) K/mm3 D-Dimer (0-234) ng/mlDDU POC ABG pH 7.197 L (7.35-7.45) POC ABG pCO2 45.2 H (35-45) POC ABG pO2 (80-105) Sodium 136 L (137-145) mmol/L Potassium 6.0 H (3.6-5.0) mmol/L Chloride (98-107) mmol/L Carbon Dioxide 17 L (22-30) mmol/L BUN 29 H (9-20) mg/dL Creatinine 2.2 H (0.8-1.5) mg/dL Glucose 121 H (75-100) mg/dL POC Glucose 107 H (70-105) Lactic Acid (0.7-2.0) mmol/L Calcium 8.2 L (8.4-10.2) mg/dL Phosphorus (2.5-4.5) mg/dL Magnesium (1.7-2.3) mg/dL AST (5-40) units/L NT-Pro-B Natriuret Pep (0-450) pg/mL Total Protein (6.3-8.2) g/dL Albumin (3.9-5) g/dL 07/22/19 07/22/19 07/22/19 Range/Units 21:45 21:45 21:45 WBC (4.5-11.0) K/mm3 RBC (3.65-5.03) M/mm3 Hgb (11.8-15.2) gm/dl Hct (35.5-45.6) % MCV (84-94) fl Plt Count (140-440) K/mm3 Lymphocytes % (Manual) (13.4-35.0) % Monocytes % (Manual) (0.0-7.3) % Monocytes # (Manual) (0.0-0.8) K/mm3 D-Dimer 886.89 H (0-234) ng/mlDDU POC ABG pH (7.35-7.45) POC ABG pCO2 (35-45) POC ABG pO2 (80-105) Sodium (137-145) mmol/L Potassium (3.6-5.0) mmol/L Chloride (98-107) mmol/L Carbon Dioxide (22-30) mmol/L BUN (9-20) mg/dL Creatinine (0.8-1.5) mg/dL Glucose (75-100) mg/dL POC Glucose (70-105) Lactic Acid 3.10 H* (0.7-2.0) mmol/L Calcium (8.4-10.2) mg/dL Phosphorus (2.5-4.5) mg/dL Magnesium (1.7-2.3) mg/dL AST (5-40) units/L NT-Pro-B Natriuret Pep 5407 H (0-450) pg/mL Total Protein (6.3-8.2) g/dL Albumin (3.9-5) g/dL 07/22/19 07/23/19 07/23/19 Range/Units 21:45 02:11 02:50 WBC (4.5-11.0) K/mm3 RBC (3.65-5.03) M/mm3 Hgb (11.8-15.2) gm/dl Hct (35.5-45.6) % MCV (84-94) fl Plt Count (140-440) K/mm3 Lymphocytes % (Manual) (13.4-35.0) % Monocytes % (Manual) (0.0-7.3) % Monocytes # (Manual) (0.0-0.8) K/mm3 D-Dimer (0-234) ng/mlDDU POC ABG pH (7.35-7.45) POC ABG pCO2 (35-45) POC ABG pO2 (80-105) Sodium 136 L (137-145) mmol/L Potassium 5.6 H (3.6-5.0) mmol/L Chloride (98-107) mmol/L Carbon Dioxide 20 L (22-30) mmol/L BUN 38 H (9-20) mg/dL Creatinine 2.6 H (0.8-1.5) mg/dL Glucose 63 L (75-100) mg/dL POC Glucose 69 L (70-105) Lactic Acid 3.30 H* (0.7-2.0) mmol/L Calcium 8.2 L (8.4-10.2) mg/dL Phosphorus (2.5-4.5) mg/dL Magnesium (1.7-2.3) mg/dL AST (5-40) units/L NT-Pro-B Natriuret Pep (0-450) pg/mL Total Protein (6.3-8.2) g/dL Albumin (3.9-5) g/dL 07/23/19 07/23/19 07/23/19 Range/Units 02:50 02:50 03:09 WBC 15.0 H (4.5-11.0) K/mm3 RBC (3.65-5.03) M/mm3 Hgb (11.8-15.2) gm/dl Hct (35.5-45.6) % MCV 95 H (84-94) fl Plt Count 118 L (140-440) K/mm3 Lymphocytes % (Manual) 9.0 L (13.4-35.0) % Monocytes % (Manual) 17.0 H (0.0-7.3) % Monocytes # (Manual) 2.6 H (0.0-0.8) K/mm3 D-Dimer (0-234) ng/mlDDU POC ABG pH 7.296 L (7.35-7.45) POC ABG pCO2 (35-45) POC ABG pO2 66 L (80-105) Sodium 134 L (137-145) mmol/L Potassium 7.5 H* D (3.6-5.0) mmol/L Chloride (98-107) mmol/L Carbon Dioxide 21 L (22-30) mmol/L BUN 47 H (9-20) mg/dL Creatinine 2.7 H (0.8-1.5) mg/dL Glucose (75-100) mg/dL POC Glucose (70-105) Lactic Acid (0.7-2.0) mmol/L Calcium 7.6 L (8.4-10.2) mg/dL Phosphorus (2.5-4.5) mg/dL Magnesium 2.90 H (1.7-2.3) mg/dL AST 60 H (5-40) units/L NT-Pro-B Natriuret Pep (0-450) pg/mL Total Protein 5.5 L D (6.3-8.2) g/dL Albumin 2.5 L (3.9-5) g/dL 07/23/19 07/23/19 07/23/19 Range/Units 04:30 07:30 09:03 WBC (4.5-11.0) K/mm3 RBC (3.65-5.03) M/mm3 Hgb (11.8-15.2) gm/dl Hct (35.5-45.6) % MCV (84-94) fl Plt Count (140-440) K/mm3 Lymphocytes % (Manual) (13.4-35.0) % Monocytes % (Manual) (0.0-7.3) % Monocytes # (Manual) (0.0-0.8) K/mm3 D-Dimer (0-234) ng/mlDDU POC ABG pH (7.35-7.45) POC ABG pCO2 (35-45) POC ABG pO2 (80-105) Sodium (137-145) mmol/L Potassium 6.6 H* (3.6-5.0) mmol/L Chloride (98-107) mmol/L Carbon Dioxide (22-30) mmol/L BUN 50 H (9-20) mg/dL Creatinine 2.6 H (0.8-1.5) mg/dL Glucose (75-100) mg/dL POC Glucose (70-105) Lactic Acid 3.50 H* 4.10 H* (0.7-2.0) mmol/L Calcium 7.6 L (8.4-10.2) mg/dL Phosphorus (2.5-4.5) mg/dL Magnesium (1.7-2.3) mg/dL AST (5-40) units/L NT-Pro-B Natriuret Pep (0-450) pg/mL Total Protein (6.3-8.2) g/dL Albumin (3.9-5) g/dL 07/23/19 Range/Units 09:03 WBC (4.5-11.0) K/mm3 RBC (3.65-5.03) M/mm3 Hgb (11.8-15.2) gm/dl Hct (35.5-45.6) % MCV (84-94) fl Plt Count (140-440) K/mm3 Lymphocytes % (Manual) (13.4-35.0) % Monocytes % (Manual) (0.0-7.3) % Monocytes # (Manual) (0.0-0.8) K/mm3 D-Dimer (0-234) ng/mlDDU POC ABG pH (7.35-7.45) POC ABG pCO2 (35-45) POC ABG pO2 (80-105) Sodium 136 L (137-145) mmol/L Potassium 7.1 H* (3.6-5.0) mmol/L Chloride (98-107) mmol/L Carbon Dioxide 20 L (22-30) mmol/L BUN 49 H (9-20) mg/dL Creatinine 2.4 H (0.8-1.5) mg/dL Glucose 67 L (75-100) mg/dL POC Glucose (70-105) Lactic Acid (0.7-2.0) mmol/L Calcium 7.7 L (8.4-10.2) mg/dL Phosphorus (2.5-4.5) mg/dL Magnesium (1.7-2.3) mg/dL AST (5-40) units/L NT-Pro-B Natriuret Pep (0-450) pg/mL Total Protein (6.3-8.2) g/dL Albumin (3.9-5) g/dL
[2019-07-23] MEDS ORDERED: PROPOFOL 200 MG/20 ML VIAL IV ONE (10:00)
[2019-07-23] MEDS: DIVALPROEX ER 500 MG TAB PO SCH ×2 (10:25→21:14)
[2019-07-23] MEDS: DOCUSATE SODIUM 100 MG CAP PO SCH (10:26)
[2019-07-23] MEDS ORDERED: SODIUM CHLORIDE 0.9% 100 ML IV PRN ×2 (10:40→11:41)
[2019-07-23] MEDS: VASOPRESSIN 20 UNIT in SODIUM CHLORIDE 0.9% 100 ML IV SCH ×2 (10:42→21:08)
--- NOTE | 2019-07-23 11:13 | Progress Note ---
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 he initially presented with abdominal pain, nausea and vomiting. he was seen and examined in ED. CT Abd showed severe constipation. he was given Fleets enema, admitted. His BMP was WNL. By next day Cr was 2.2 and he had hyperkalemia of 5.3. Repeat hrs later showed worse Cr 2.2 and Potassium went up to 6.0. and he had developed shortness of breath, desaturation so was transferred to ICU. Acute resp failure now intubated, extubated Patient became short of breath, desaturated while om medical floor, transferred to ICU Consulted and discussed with Dr. Ewing COLUMBA due to ATN Cr worse, 2.6 today Nephrology following To start dialysis Possible sepsis vs SIRS Consulted and disucssed with ID Physician Blood cultures Started on empiric Abx Fever of 100.1 Blood cultures Leukocytosis Colonic distension on CT For exploratory lap today after dialysis Surgeon following lactic acidosis Hyperkalemia Gave calcium Carbonate Insulin/Dextrose discussed with Dr. West severe constipation resolved, now has diarrhea due to laxatives Severe diarrhea due to laxatives after presenting with constipation Sinus tachycardia due to dehydration Downs syndrome supportive care full code status Prognosis guarded History Interval history: patient initially presented with abd pain, constipation, given laxative patient now has acute resp failure , intubated, COLUMBA, diarrhea, hyperkalemia Hospitalist Physical - Physical exam Narrative exam: Gen: Ill looking, obese, intubated HEENT: Normocephalic, atraumatic Neck: supple, no JVD Heart: S1 and S2 reg, no murmurs, rubs or gallop Lungs: bilateral crackles, no wheeze Abd: soft, non tender, non distended, normal BS, Ext: No edema, no clubbing, no cyanosis Neuro: Awake, alert, oriented X 3, no focal neurological signs,moves all ext - Constitutional Vitals: Temp Pulse Resp BP Pulse Ox 98.8 F 129 H 46 H 101/54 98 07/23/19 08:00 07/23/19 10:13 07/23/19 08:10 07/23/19 08:10 07/23/19 10:13 Results - Labs CBC & Chem 7: 07/23/19 02:50 07/23/19 Unknown Labs: Laboratory Last Values WBC 15.0 K/mm3 (4.5-11.0) H 07/23/19 02:50 RBC 4.68 M/mm3 (3.65-5.03) 07/23/19 02:50 Hgb 14.7 gm/dl (11.8-15.2) 07/23/19 02:50 Hct 44.3 % (35.5-45.6) 07/23/19 02:50 MCV 95 fl (84-94) H 07/23/19 02:50 MCH 31 pg (28-32) 07/23/19 02:50 MCHC 33 % (32-34) 07/23/19 02:50 RDW 14.6 % (13.2-15.2) 07/23/19 02:50 Plt Count 118 K/mm3 (140-440) L 07/23/19 02:50 Lymph % (Auto) 7.2 % (13.4-35.0) L 07/21/19 19:02 Mcnairy % (Auto) Sludge Control Attendant 07/23/19 02:50 Eos % (Auto) 0.1 % (0.0-4.3) 07/21/19 19:02 Baso % (Auto) 0.3 % (0.0-1.8) 07/21/19 19:02 Lymph # 0.9 K/mm3 (1.2-5.4) L 07/21/19 19:02 [place]nairy # 1.2 K/mm3 (0.0-0.8) H 07/21/19 19:02 Eos # 0.0 K/mm3 (0.0-0.4) 07/21/19 19:02 Baso # 0.0 K/mm3 (0.0-0.1) 07/21/19 19:02 Add Manual Diff Complete 07/23/19 02:50 Total Counted 100 07/23/19 02:50 Seg Neutrophils % 82.8 % (40.0-70.0) H 07/21/19 19:02 Seg Neuts % (Manual) 40.0 % (40.0-70.0) 07/23/19 02:50 Band Neutrophils % 33.0 % 07/23/19 02:50 Lymphocytes % (Manual) 9.0 % (13.4-35.0) L 07/23/19 02:50 Reactive Lymphs % (Man) 0 % 07/23/19 02:50 Monocytes % (Manual) 17.0 % (0.0-7.3) H 07/23/19 02:50 Eosinophils % (Manual) 0 % (0.0-4.3) 07/23/19 02:50 Basophils % (Manual) 0 % (0.0-1.8) 07/23/19 02:50 Metamyelocytes % 1.0 % 07/23/19 02:50 Myelocytes % 0 % 07/23/19 02:50 Promyelocytes % 0 % 07/23/19 02:50 Blast Cells % 0 % 07/23/19 02:50 Nucleated RBC % Not Reportable 07/23/19 02:50 Seg Neutrophils # 10.0 K/mm3 (1.8-7.7) H 07/21/19 19:02 Seg Neutrophils # Man 6.0 K/mm3 (1.8-7.7) 07/23/19 02:50 Band Neutrophils # 5.0 K/mm3 07/23/19 02:50 Lymphocytes # (Manual) 1.4 K/mm3 (1.2-5.4) 07/23/19 02:50 Abs React Lymphs (Man) 0.0 K/mm3 07/23/19 02:50 Monocytes # (Manual) 2.6 K/mm3 (0.0-0.8) H 07/23/19 02:50 Eosinophils # (Manual) 0.0 K/mm3 (0.0-0.4) 07/23/19 02:50 Basophils # (Manual) 0.0 K/mm3 (0.0-0.1) 07/23/19 02:50 Metamyelocytes # 0.2 K/mm3 07/23/19 02:50 Myelocytes # 0.0 K/mm3 07/23/19 02:50 Promyelocytes # 0.0 K/mm3 07/23/19 02:50 Blast Cells # 0.0 K/mm3 07/23/19 02:50 WBC Morphology Not Reportable 07/23/19 02:50 Hypersegmented Neuts Not Reportable 07/23/19 02:50 Hyposegmented Neuts Not Reportable 07/23/19 02:50 Hypogranular Neuts Not Reportable 07/23/19 02:50 Smudge Cells Not Reportable 07/23/19 02:50 Toxic Granulation Not Reportable 07/23/19 02:50 Toxic Vacuolation Not Reportable 07/23/19 02:50 Dohle Bodies Not Reportable 07/23/19 02:50 Pelger-Huet Anomaly Not Reportable 07/23/19 02:50 Alea Rods Not Reportable 07/23/19 02:50 Platelet Estimate Cons 07/23/19 02:50 Clumped Platelets Not Reportable 07/23/19 02:50 Plt Clumps, EDTA Not Reportable 07/23/19 02:50 Large Platelets Few 07/23/19 02:50 Giant Platelets Not Reportable 07/23/19 02:50 Platelet Satelliting Not Reportable 07/23/19 02:50 Plt Morphology Comment Not Reportable 07/23/19 02:50 RBC Morphology Not Reportable 07/23/19 02:50 Dimorphic RBCs Not Reportable 07/23/19 02:50 Polychromasia Not Reportable 07/23/19 02:50 Hypochromasia Not Reportable 07/23/19 02:50 Poikilocytosis Not Reportable 07/23/19 02:50 Anisocytosis 1+ 07/23/19 02:50 Microcytosis Not Reportable 07/23/19 02:50 Macrocytosis Not Reportable 07/23/19 02:50 Spherocytes Not Reportable 07/23/19 02:50 Pappenheimer Bodies Not Reportable 07/23/19 02:50 Sickle Cells Not Reportable 07/23/19 02:50 Target Cells Not Reportable 07/23/19 02:50 Tear Drop Cells Not Reportable 07/23/19 02:50 Ovalocytes Not Reportable 07/23/19 02:50 Helmet Cells Not Reportable 07/23/19 02:50 [place] Bodies Not Reportable 07/23/19 02:50 Theodore Rings Not Reportable 07/23/19 02:50 [place] Cells Not Reportable 07/23/19 02:50 Bite Cells Not Reportable 07/23/19 02:50 Crenated Cell Not Reportable 07/23/19 02:50 Elliptocytes Not Reportable 07/23/19 02:50 Acanthocytes (Spur) Not Reportable 07/23/19 02:50 Rouleaux Not Reportable 07/23/19 02:50 Hemoglobin C Crystals Not Reportable 07/23/19 02:50 Schistocytes Not Reportable 07/23/19 02:50 Malaria parasites Not Reportable 07/23/19 02:50 Emanuel Bodies Not Reportable 07/23/19 02:50 Hem Pathologist Commnt No 07/23/19 02:50 D-Dimer 886.89 ng/mlDDU (0-234) H 07/22/19 21:45 POC ABG pH 7.280 (7.35-7.45) L 07/23/19 10:52 POC ABG pCO2 48.7 (35-45) H 07/23/19 10:52 POC ABG pO2 105 (80-105) 07/23/19 10:52 POC ABG HCO3 22.9 (22-26 mml/L) 07/23/19 10:52 POC ABG Total CO2 24 (23-27mmol/L) 07/23/19 10:52 POC ABG O2 Sat 97 07/23/19 10:52 POC ABG Base Excess -4 ((-2) - (+3)mmol/L) 07/23/19 10:52 FiO2 50 % 07/23/19 10:52 Sodium 136 mmol/L (137-145) L 07/23/19 09:03 Potassium 7.1 mmol/L (3.6-5.0) H* 07/23/19 09:03 Chloride 100.1 mmol/L (98-107) 07/23/19 09:03 Carbon Dioxide 20 mmol/L (22-30) L 07/23/19 09:03 Anion Gap 23 mmol/L 07/23/19 09:03 BUN 49 mg/dL (9-20) H 07/23/19 09:03 Creatinine 2.4 mg/dL (0.8-1.5) H 07/23/19 09:03 Estimated GFR 42 ml/min 07/23/19 09:03 BUN/Creatinine Ratio 20 % 07/23/19 09:03 Glucose 67 mg/dL (75-100) L 07/23/19 09:03 POC Glucose 98 (70-105) 07/23/19 05:27 Lactic Acid 4.10 mmol/L (0.7-2.0) H* 07/23/19 09:03 Calcium 7.7 mg/dL (8.4-10.2) L 07/23/19 09:03 Phosphorus 4.10 mg/dL (2.5-4.5) 07/23/19 02:50 Magnesium 2.90 mg/dL (1.7-2.3) H 07/23/19 02:50 Total Bilirubin 1.00 mg/dL (0.1-1.2) 07/23/19 02:50 Direct Bilirubin 0.2 mg/dL (0-0.2) 07/21/19 19:02 Indirect Bilirubin 0.4 mg/dL 07/21/19 19:02 AST 60 units/L (5-40) H 07/23/19 02:50 ALT 15 units/L (7-56) 07/23/19 02:50 Alkaline Phosphatase 50 units/L (35-129) 07/23/19 02:50 Ammonia 39.0 umol/L (25-60) 07/23/19 02:50 Troponin T < 0.010 ng/mL (0.00-0.029) 07/22/19 15:33 NT-Pro-B Natriuret Pep 5407 pg/mL (0-450) H 07/22/19 21:45 Total Protein 5.5 g/dL (6.3-8.2) L D 07/23/19 02:50 Albumin 2.5 g/dL (3.9-5) L 07/23/19 02:50 Albumin/Globulin Ratio 0.8 % 07/23/19 02:50 Lipase 10 units/L (13-60) L 07/21/19 19:02 Urine Color Emy (Yellow) 07/21/19 21:36 Urine Turbidity Clear (Clear) 07/21/19 21:36 Urine pH 5.0 (5.0-7.0) 07/21/19 21:36 Ur Specific [place] 1.024 (1.003-1.030) 07/21/19 21:36 Urine Protein <15 mg/dl mg/dL (Negative) 07/21/19 21:36 Urine Glucose (UA) Neg mg/dL (Negative) 07/21/19 21:36 Urine Ketones Neg mg/dL (Negative) 07/21/19 21:36 Urine Blood Neg (Negative) 07/21/19 21:36 Urine Nitrite Neg (Negative) 07/21/19 21:36 Urine Bilirubin Sm (Negative) 07/21/19 21:36 Urine Ictotest Negative (Negative) 07/21/19 21:36 Urine Urobilinogen 4.0 mg/dL (<2.0) 07/21/19 21:36 Ur Leukocyte Esterase Neg (Negative) 07/21/19 21:36 Urine WBC (Auto) 1.0 /HPF (0.0-6.0) 07/21/19 21:36 Urine RBC (Auto) 1.0 /HPF (0.0-6.0) 07/21/19 21:36 U Epithel Cells (Auto) < 1.0 /HPF (0-13.0) 07/21/19 21:36 Urine Mucus Few /HPF 07/21/19 21:36 Active Medications - Current Medications Current Medications: Generic Name Dose Route Start Last Admin Trade Name Freq PRN Reason Stop Dose Admin Acetaminophen 650 mg 07/23/19 02:48 Tylenol WI Q4H PRN Fever >100.5 Benztropine Mesylate 0.5 mg 07/22/19 22:00 07/22/19 23:02 Cogentin PO 0.5 mg QHS STEPHEN Administration Bisacodyl 10 mg 07/21/19 22:25 Dulcolax PO QDAY PRN Constipation Clonazepam 2 mg 07/22/19 10:00 07/23/19 10:25 Klonopin PO Not Given BID STEPHEN Divalproex Sodium 500 mg 07/22/19 10:00 07/23/19 10:25 Depakote Er PO Not Given BID STEPHEN Docusate Sodium 100 mg 07/22/19 02:00 07/23/19 10:26 Colace PO Not Given BID STEPHEN Enoxaparin Sodium 30 mg 07/22/19 22:00 07/22/19 21:58 Lovenox SUB-Q 30 mg QDAY@2200 STEPHEN Administration Sodium Chloride 1,000 mls @ 125 mls/hr 07/21/19 23:00 07/22/19 16:33 Nacl 0.9% 1000 Ml IV 125 mls/hr DIRECT STEPHEN Administration Sodium Chloride 1,000 mls @ 999 mls/hr 07/22/19 12:05 07/22/19 14:42 Nacl 0.9% 1000 Ml IV 07/23/19 13:06 999 mls/hr ONCE STEPHEN Administration Piperacillin Sod/Tazobactam Sod 3.375 gm in 50 mls @ 100 mls/hr 07/22/19 22:00 07/23/19 07:45 Zosyn/Ns 3.375gm/50ml IV 100 mls/hr Q8HR STEPHEN Administration Protocol Sodium Bicarbonate 150 meq/ 1,150 mls @ 125 mls/hr 07/22/19 22:00 07/22/19 21:37 Dextrose IV 125 mls/hr DIRECT STEPHEN Administration Phenylephrine HCl 100 mg/ 100 mls @ 3 mls/hr 07/23/19 02:45 07/23/19 09:37 Sodium Chloride IV 50 mcg/min TITR STEPHEN 3 mls/hr Administration Protocol 50 MCG/MIN Vasopressin 20 unit/ Sodium 101 mls @ 9.09 mls/hr 07/23/19 10:00 07/23/19 10:42 Chloride IV 0.03 units/min TITR STEPHEN 9.09 mls/hr Administration Protocol 0.03 UNITS/MIN Sodium Chloride 100 mls @ 999 mls/hr 07/23/19 10:40 Nacl 0.9% IV DIOR PRN Hypotension Sodium Chloride 1,000 mls @ 999 mls/hr 07/23/19 12:00 Nacl 0.9% 1000 Ml IV 07/23/19 13:00 BOLUS ONE Metoclopramide HCl 5 mg 07/22/19 22:00 07/22/19 21:59 Reglan IV 5 mg Q6H STEPHEN Administration Ondansetron HCl 4 mg 07/21/19 22:25 07/22/19 01:07 Zofran IV 4 mg Q8H PRN Administration Nausea And Vomiting Trazodone HCl 100 mg 07/22/19 22:00 07/22/19 22:32 Desyrel PO 100 mg HS STEPHEN Administration Nutrition/Malnutrition Assess - Dietary Evaluation Nutrition/Malnutrition Findings: Nutrition Notes Start: 07/23/19 10:09 Freq: Status: Active Protocol: Document 07/23/19 10:09 RITA (Rec: 07/23/19 10:15 RITA [email or web address]) Nutrition Notes Need for Assessment generated from: shell plater Initial or Follow up Assessment Other Pertinent Diagnosis Abdominal pain, intractable N/ V, Constipation, Chronic dilated colon Current Diet NPO Labs/Tests Na 136 K 7.1 CO2 - 20 BUN 49 Cr 2.4 BG 67 Pertinent Medications Colace, Reglan, Phenylephrine gtt, Vasopressin gtt Height 5 ft 7 in Weight 111.13 kg Elizabeth Body Weight (kg) 67.27 BMI 38.3 Weight Status Obese Subjective/Other Information Pt screened for skin risk ( Demarcus score: 15). Pt with hx of Down's syndrome and lives at personal longterm. He was intubated this am. Burn Absent Trauma Absent GI Symptoms Nausea,Vomiting,Constipation Minimum of two criteria No physical signs of malnutrition #1 Nutrition Diagnosis Inadequate oral intake Etiology mech ventilation As Evidenced by Signs and Symptoms pt NPO Is patient on ventilator? Yes Is Patient Ambulatory and/or Out of Bed No REE-([place]-confined to bed) 2490.588 Kcal/Kg value to use for calculation 17 Approximate Energy Requirements Using 1889 kcal/Kg Calculation Used for Recommendations Kcal/kg Additional Notes Pro needs 2g/kg IBW: 135g/day Fluid needs 1ml/kcal Nutrition Intervention Change Diet Order: Advance diet when medically feasible Goal #1 Diet advancement to meet nutrient needs Goal #2 Improved bowel function Anticipated Discharge Needs: Unable to identify at this time Follow-Up By: 07/25/19 Additional Comments F/U: Diet advancement, vent status
--- NOTE | 2019-07-23 11:48 | Event Note ---
Date: 07/23/19 As feared, the patient is still getting worse despite airway stabilization. Dialysis is about to begin. We are planning to take patient for ex-lap after dialysis. Discussed with Drs. Ewing and Brett. Called mother to update her on plan. She was appreciative. To OR this afternoon.
[2019-07-23] MEDS ORDERED: HEPARIN 10,000 UNIT/1 ML VIAL ONE (11:53)
[2019-07-23] MEDS ORDERED: NORepinephrine 8 MG in SODIUM CHLORIDE 0.9% 250ML 242 ML IV SCH (12:00)
--- NOTE | 2019-07-23 12:23 | XRay Report ---
CHEST 1 VIEW INDICATION: et tube placement. COMPARISON: 07/22/2016 FINDINGS: Support devices: The endotracheal tube appears to terminate 1.6 cm superior to the selina. The nasoga stric tube is followed to the distal stomach. Heart: Within normal limits. Lungs/Pleura: There is poor inspiratory effort. The lungs are grossly clear. No large pleural effusio n or pneumothorax. Additional findings: None. IMPRESSION: Lines and tubes as described. Grossly negative expiratory chest x-ray. Signer Name: Jacob Corrales Jr, MD Signed: 07/23/2019 12:18 PM Workstation Name: [id number]
[2019-07-23] MEDS ORDERED: VANCOMYCIN/NS 1 GM/250 ML 1 GM/250 ML BAG IV ONE (12:30)
--- NOTE | 2019-07-23 12:52 | Consultation ---
History of Present Illness Consult date: 07/23/19 Requesting physician: RADHA ARGUETA Consult reason: tachycardia History of present illness: The patient is 19 year old male with history of Down syndrome. He is previously unknown to our practice. He has just been intubated at the time of our evaluation and thus HPI is obtained per the chart. Pt presented to ED on 07/21 with c/o abdominal pain, constipation and vomiting. Patient lives in a fdc. He was found to have severe constipation and significant colonic distention/dysfunction. Pt has since developed respiratory failure and was subsequently intubated this morning. He has also developed acute renal failure and worsening hyperkalemia and is pending urgent dialysis. Cardiology has been consulted for tachycardia. Review of telemetry and ECGs show sinus tachycardia. Pt is currently hypotensive requiring vasopressor support. Per general surgery, pt is to be taken to OR this afternoon for exploratory lap after dialysis. Per pt's mother, pt has a chronic history of a dilated colon. He had a similar issue in 2015 for which an Ex Lap was done by Dr. Davis at [facility]. A partial colectomy was done and an ostomy was created. He later had the ostomy reversed in 2016. Past History Past Medical History: other (Downs syndrome) Past Surgical History: bowel surgery (ex lap with partial colectomy and ostomy in 06/2016. Ostomy reversal in 2016. ) Social history: full code, other (lives in fdc). denies: smoking, alcohol abuse, prescription drug abuse, IV drug use Family history: other (No pulm issues reported) Medications and Allergies Allergies Allergy/AdvReac Type Severity Reaction Status Date / Time No Known Allergies Allergy Verified 10/20/15 03:43 Home Medications Medication Instructions Recorded Confirmed Last Taken Type Benztropine [Cogentin] 0.5 mg PO QHS 05/17/19 06/05/19 Unknown History Divalproex ER [Depakote ER] 500 mg PO BID 05/17/19 06/05/19 Unknown History clonazePAM [KlonoPIN] 2 mg PO BID 05/17/19 06/05/19 Unknown History traZODone [Desyrel] 100 mg PO HS 06/05/19 06/05/19 Unknown History Acetaminophen [Acetaminophen TAB] 650 mg PO Q4H PRN tablet 06/06/19 Unknown Rx Divalproex ER [Depakote ER] 500 mg PO BID tablet 06/06/19 Unknown Rx Lactulose 10 gm PO DAILY PRN #150 ml 07/21/19 Unknown Rx Ondansetron [Zofran Odt] 4 mg PO Q8HR PRN #14 tab.rapdis 07/21/19 Unknown Rx Sodium Phosphate,[place]-Dibasic 118 ml RC ONCE #1 enema 07/21/19 Unknown Rx [Fleet Enema] Active Meds: Active Medications Acetaminophen (Tylenol) 650 mg ND Q4H PRN PRN Reason: Fever >100.5 Benztropine Mesylate (Cogentin) 0.5 mg PO QHS [facility] Last Admin: 07/22/19 23:02 Dose: 0.5 mg Documented by: Bisacodyl (Dulcolax) 10 mg PO QDAY PRN PRN Reason: Constipation Clonazepam (Klonopin) 2 mg PO BID [facility] Last Admin: 07/23/19 10:25 Dose: Not Given Documented by: Divalproex Sodium (Depakote Er) 500 mg PO BID [facility] Last Admin: 07/23/19 10:25 Dose: Not Given Documented by: Enoxaparin Sodium (Lovenox) 30 mg SUB-Q QDAY@2200 [facility] Last Admin: 07/22/19 21:58 Dose: 30 mg Documented by: Sodium Chloride (Nacl 0.9% 1000 Ml) 1,000 mls @ 999 mls/hr IV ONCE [facility] Stop: 07/23/19 13:06 Last Admin: 07/22/19 14:42 Dose: 999 mls/hr Documented by: Piperacillin Sod/Tazobactam Sod (Zosyn/Ns 3.375gm/50ml) 3.375 gm in 50 mls @ 100 mls/hr IV Q8HR [facility]; Protocol Last Admin: 07/23/19 07:45 Dose: 100 mls/hr Documented by: Sodium Bicarbonate 150 meq/ (Dextrose) 1,150 mls @ 125 mls/hr IV DIRECT [facility] Last Admin: 07/22/19 21:37 Dose: 125 mls/hr Documented by: Phenylephrine HCl 100 mg/ (Sodium Chloride) 100 mls @ 3 mls/hr IV TITR [facility]; Protocol Last Admin: 07/23/19 12:23 Dose: 50 mcg/min, 3 mls/hr Documented by: Vasopressin 20 unit/ Sodium (Chloride) 101 mls @ 9.09 mls/hr IV TITR [facility]; Protocol Last Admin: 07/23/19 10:42 Dose: 0.03 units/min, 9.09 mls/hr Documented by: Sodium Chloride (Nacl 0.9%) 100 mls @ 999 mls/hr IV DIOR PRN PRN Reason: Hypotension Sodium Chloride (Nacl 0.9% 1000 Ml) 1,000 mls @ 999 mls/hr IV BOLUS ONE Stop: 07/23/19 13:00 Last Admin: 07/23/19 11:13 Dose: 999 mls/hr Documented by: Norepinephrine 8 mg/ Sodium (Chloride) 250 mls @ 3.75 mls/hr IV TITR [facility]; Protocol Last Admin: 07/23/19 12:43 Dose: 2 mcg/min, 3.75 mls/hr Documented by: Vancomycin HCl (Vancomycin/Ns 1 Gm/250 Ml) 1 gm in 250 mls @ 167.007 mls/hr IV ONCE ONE Stop: 07/23/19 13:59 Last Admin: 07/23/19 12:22 Dose: 167.007 mls/hr Documented by: Fentanyl Citrate (Fentanyl Drip Premix) 2,000 mcg in 100 mls @ 5.557 mls/hr IV TITR [facility]; Protocol Ondansetron HCl (Zofran) 4 mg IV Q8H PRN PRN Reason: Nausea And Vomiting Last Admin: 07/22/19 01:07 Dose: 4 mg Documented by: Trazodone HCl (Desyrel) 100 mg PO HS [facility] Last Admin: 07/22/19 22:32 Dose: 100 mg Documented by: Review of Systems ROS unobtainable: due to endotracheal tube Physical Examination Vital Signs Temp Pulse Resp BP Pulse Ox 98.6 F 103 H 18 109/59 96 07/21/19 18:35 07/21/19 18:35 07/21/19 18:35 07/21/19 18:35 07/21/19 18:35 General appearance: other (intubated) Cardiac: Positive: Regular Rhythm, S1/S2, Tachycardia Lungs: Positive: Decreased Breath Sounds, Ventilated Respirations Neuro: Positive: Other (intubated) Skin: Negative: Rash Extremities: Absent: edema Results 07/23/19 02:50 07/23/19 09:03 Cardiac Enzymes 07/23/19 Range/Units 02:50 AST 60 H (5-40) units/L CBC 07/22/19 07/23/19 Range/Units 15:33 02:50 WBC 13.1 H 15.0 H (4.5-11.0) K/mm3 RBC 5.10 H 4.68 (3.65-5.03) M/mm3 Hgb 15.9 H 14.7 (11.8-15.2) gm/dl Hct 49.0 H 44.3 (35.5-45.6) % Plt Count 127 L 118 L (140-440) K/mm3 Comprehensive Metabolic Panel 07/22/19 07/22/19 07/23/19 Range/Units 15:33 21:45 02:50 Sodium 136 L 136 L 134 L (137-145) mmol/L Potassium 6.0 H 5.6 H 7.5 H* D (3.6-5.0) mmol/L Chloride 101.5 102.3 101.4 (98-107) mmol/L Carbon Dioxide 17 L 20 L 21 L (22-30) mmol/L BUN 29 H 38 H 47 H (9-20) mg/dL Creatinine 2.2 H 2.6 H 2.7 H (0.8-1.5) mg/dL Glucose 121 H 63 L 78 (75-100) mg/dL Calcium 8.2 L 8.2 L 7.6 L (8.4-10.2) mg/dL AST 60 H (5-40) units/L ALT 15 (7-56) units/L Alkaline Phosphatase 50 (35-129) units/L Total Protein 5.5 L D (6.3-8.2) g/dL Albumin 2.5 L (3.9-5) g/dL 07/23/19 07/23/19 Range/Units 07:30 09:03 Sodium 140 136 L (137-145) mmol/L Potassium 6.6 H* 7.1 H* (3.6-5.0) mmol/L Chloride 102.0 100.1 (98-107) mmol/L Carbon Dioxide 24 20 L (22-30) mmol/L BUN 50 H 49 H (9-20) mg/dL Creatinine 2.6 H 2.4 H (0.8-1.5) mg/dL Glucose 79 67 L (75-100) mg/dL Calcium 7.6 L 7.7 L (8.4-10.2) mg/dL AST (5-40) units/L ALT (7-56) units/L Alkaline Phosphatase (35-129) units/L Total Protein (6.3-8.2) g/dL Albumin (3.9-5) g/dL - Imaging and Cardiology Echo: pending EKG: report reviewed, image reviewed EKG interpretations - Telemetry EKG Rhythm: Sinus Tachycardia - EKG Sinus rhythms and dysrhythmias: sinus tachycardia Assessment and Plan Pt noted to have sinus tachycardia which is physiologic 2/2 to acute respiratory failure requiring intubation this morning, colonic distention / ? colonic dysfunction, acute renal failure, lactic acidosis, etc. He is currently hypotensive requiring vasopressor support. Pt is to be taken to OR this afternoon for exploratory lap after receiving urgent dialysis. Suspect tachycardia will improve as underlying issues are treated. Cont to monitor on telemetry. Obtain echo and thyroid profile. DDimer is noted to be elevated - pt too unstable for V/Q scan at this time. Cont supportive measures. Further recs to follow per hospital course. The patient has been seen in conjunction with Dr. Gutiérrez who agrees with the assessment and plan of care. - Patient Problems (1) Acute respiratory failure Current Visit: Yes Status: Acute (2) Colon distention Current Visit: Yes Status: Acute (3) Constipation Current Visit: Yes Status: Acute (4) Intractable vomiting with nausea Current Visit: Yes Status: Acute (5) Sinus tachycardia Current Visit: Yes Status: Acute (6) Hypotension Current Visit: Yes Status: Acute (7) Acute renal failure Current Visit: Yes Status: Acute (8) Hyperkalemia Current Visit: Yes Status: Acute (9) Leukocytosis Current Visit: Yes Status: Acute (10) Lactic acidosis Current Visit: Yes Status: Acute (11) Elevated d-dimer Current Visit: Yes Status: Acute
--- NOTE | 2019-07-23 13:01 | Consultation ---
History of Present Illness - Reason for Consult Consult date: 07/23/19 Dialysis Access - History of Present Illness HPI: 19yo male hospitalized with worsening abdominal pain 2/2 severe constipat ion. The patient's overall clinical status has deteriorated with hypotension requiring pressor support, respiratory failure and acute renal failure. Patient with worsening hyperkalemia and in need of urgent dialysis. ROS: unable to be obtained PE: intubated and sedated RRR palpable pulses throughout Labs reviewed Plan: will place temporary dialysis catheter at the bedside phone consent obtained from the mother Past History Past Medical History: other (Downs syndrome) Past Surgical History: bowel surgery (ex lap with partial colectomy and ostomy in 06/2016. Ostomy reversal in 2017. ) Social history: full code, other (lives in half-way). denies: smoking, alcohol abuse, prescription drug abuse, IV drug use Family history: other (No pulm issues reported) Medications and Allergies Allergies Allergy/AdvReac Type Severity Reaction Status Date / Time No Known Allergies Allergy Verified 10/20/15 03:43 Home Medications Medication Instructions Recorded Confirmed Last Taken Type Benztropine [Cogentin] 0.5 mg PO QHS 05/17/19 06/05/19 Unknown History Divalproex ER [Depakote ER] 500 mg PO BID 05/17/19 06/05/19 Unknown History clonazePAM [KlonoPIN] 2 mg PO BID 05/17/19 06/05/19 Unknown History traZODone [Desyrel] 100 mg PO HS 06/05/19 06/05/19 Unknown History Acetaminophen [Acetaminophen TAB] 650 mg PO Q4H PRN tablet 06/06/19 Unknown Rx Divalproex ER [Depakote ER] 500 mg PO BID tablet 06/06/19 Unknown Rx Lactulose 10 gm PO DAILY PRN #150 ml 07/21/19 Unknown Rx Ondansetron [Zofran Odt] 4 mg PO Q8HR PRN #14 tab.rapdis 07/21/19 Unknown Rx Sodium Phosphate,[place]-Dibasic 118 ml RC ONCE #1 enema 07/21/19 Unknown Rx [Fleet Enema] Active Meds: Active Medications Acetaminophen (Tylenol) 650 mg [place] Q4H PRN PRN Reason: Fever >100.5 Benztropine Mesylate (Cogentin) 0.5 mg PO QHS [facility] Last Admin: 07/22/19 23:02 Dose: 0.5 mg Documented by: Bisacodyl (Dulcolax) 10 mg PO QDAY PRN PRN Reason: Constipation Clonazepam (Klonopin) 2 mg PO BID [facility] Last Admin: 07/23/19 10:25 Dose: Not Given Documented by: Divalproex Sodium (Depakote Er) 500 mg PO BID [facility] Last Admin: 07/23/19 10:25 Dose: Not Given Documented by: Enoxaparin Sodium (Lovenox) 30 mg SUB-Q QDAY@2200 [facility] Last Admin: 07/22/19 21:58 Dose: 30 mg Documented by: Sodium Chloride (Nacl 0.9% 1000 Ml) 1,000 mls @ 999 mls/hr IV ONCE [facility] Stop: 07/23/19 13:06 Last Admin: 07/22/19 14:42 Dose: 999 mls/hr Documented by: Piperacillin Sod/Tazobactam Sod (Zosyn/Ns 3.375gm/50ml) 3.375 gm in 50 mls @ 100 mls/hr IV Q8HR [facility]; Protocol Last Admin: 07/23/19 07:45 Dose: 100 mls/hr Documented by: Sodium Bicarbonate 150 meq/ (Dextrose) 1,150 mls @ 125 mls/hr IV DIRECT [facility] Last Admin: 07/22/19 21:37 Dose: 125 mls/hr Documented by: Phenylephrine HCl 100 mg/ (Sodium Chloride) 100 mls @ 3 mls/hr IV TITR [facility]; Protocol Last Admin: 07/23/19 12:23 Dose: 50 mcg/min, 3 mls/hr Documented by: Vasopressin 20 unit/ Sodium (Chloride) 101 mls @ 9.09 mls/hr IV TITR [facility]; Protocol Last Admin: 07/23/19 10:42 Dose: 0.03 units/min, 9.09 mls/hr Documented by: Sodium Chloride (Nacl 0.9%) 100 mls @ 999 mls/hr IV DIOR PRN PRN Reason: Hypotension Sodium Chloride (Nacl 0.9% 1000 Ml) 1,000 mls @ 999 mls/hr IV BOLUS ONE Stop: 07/23/19 13:00 Last Admin: 07/23/19 11:13 Dose: 999 mls/hr Documented by: Norepinephrine 8 mg/ Sodium (Chloride) 250 mls @ 3.75 mls/hr IV TITR [facility]; Protocol Last Admin: 07/23/19 12:43 Dose: 2 mcg/min, 3.75 mls/hr Documented by: Vancomycin HCl (Vancomycin/Ns 1 Gm/250 Ml) 1 gm in 250 mls @ 167.007 mls/hr IV ONCE ONE Stop: 07/23/19 13:59 Last Admin: 07/23/19 12:22 Dose: 167.007 mls/hr Documented by: Fentanyl Citrate (Fentanyl Drip Premix) 2,000 mcg in 100 mls @ 5.557 mls/hr IV TITR [facility]; Protocol Ondansetron HCl (Zofran) 4 mg IV Q8H PRN PRN Reason: Nausea And Vomiting Last Admin: 07/22/19 01:07 Dose: 4 mg Documented by: Trazodone HCl (Desyrel) 100 mg PO HS [facility] Last Admin: 07/22/19 22:32 Dose: 100 mg Documented by: Exam - Constitutional Vitals: Temp Pulse Resp BP Pulse Ox 98.8 F 129 H 46 H 101/54 98 07/23/19 08:00 07/23/19 10:13 07/23/19 08:10 07/23/19 08:10 07/23/19 10:13 Results - Labs CBC & Chem 7: 07/23/19 02:50 07/23/19 09:03 Labs: Abnormal lab results 07/22/19 07/22/19 07/22/19 Range/Units 15:33 15:33 18:19 WBC 13.1 H (4.5-11.0) K/mm3 RBC 5.10 H (3.65-5.03) M/mm3 Hgb 15.9 H (11.8-15.2) gm/dl Hct 49.0 H (35.5-45.6) % MCV 96 H (84-94) fl Plt Count 127 L (140-440) K/mm3 Lymphocytes % (Manual) (13.4-35.0) % Monocytes % (Manual) (0.0-7.3) % Monocytes # (Manual) (0.0-0.8) K/mm3 D-Dimer (0-234) ng/mlDDU POC ABG pH (7.35-7.45) POC ABG pCO2 (35-45) POC ABG pO2 (80-105) Sodium 136 L (137-145) mmol/L Potassium 6.0 H (3.6-5.0) mmol/L Carbon Dioxide 17 L (22-30) mmol/L BUN 29 H (9-20) mg/dL Creatinine 2.2 H (0.8-1.5) mg/dL Glucose 121 H (75-100) mg/dL POC Glucose 107 H (70-105) Lactic Acid (0.7-2.0) mmol/L Calcium 8.2 L (8.4-10.2) mg/dL Magnesium (1.7-2.3) mg/dL AST (5-40) units/L NT-Pro-B Natriuret Pep (0-450) pg/mL Total Protein (6.3-8.2) g/dL Albumin (3.9-5) g/dL 07/22/19 07/22/19 07/22/19 Range/Units 18:42 21:45 21:45 WBC (4.5-11.0) K/mm3 RBC (3.65-5.03) M/mm3 Hgb (11.8-15.2) gm/dl Hct (35.5-45.6) % MCV (84-94) fl Plt Count (140-440) K/mm3 Lymphocytes % (Manual) (13.4-35.0) % Monocytes % (Manual) (0.0-7.3) % Monocytes # (Manual) (0.0-0.8) K/mm3 D-Dimer 886.89 H (0-234) ng/mlDDU POC ABG pH 7.197 L (7.35-7.45) POC ABG pCO2 45.2 H (35-45) POC ABG pO2 (80-105) Sodium (137-145) mmol/L Potassium (3.6-5.0) mmol/L Carbon Dioxide (22-30) mmol/L BUN (9-20) mg/dL Creatinine (0.8-1.5) mg/dL Glucose (75-100) mg/dL POC Glucose (70-105) Lactic Acid (0.7-2.0) mmol/L Calcium (8.4-10.2) mg/dL Magnesium (1.7-2.3) mg/dL AST (5-40) units/L NT-Pro-B Natriuret Pep 5407 H (0-450) pg/mL Total Protein (6.3-8.2) g/dL Albumin (3.9-5) g/dL 07/22/19 07/22/19 07/23/19 Range/Units 21:45 21:45 02:11 WBC (4.5-11.0) K/mm3 RBC (3.65-5.03) M/mm3 Hgb (11.8-15.2) gm/dl Hct (35.5-45.6) % MCV (84-94) fl Plt Count (140-440) K/mm3 Lymphocytes % (Manual) (13.4-35.0) % Monocytes % (Manual) (0.0-7.3) % Monocytes # (Manual) (0.0-0.8) K/mm3 D-Dimer (0-234) ng/mlDDU POC ABG pH (7.35-7.45) POC ABG pCO2 (35-45) POC ABG pO2 (80-105) Sodium 136 L (137-145) mmol/L Potassium 5.6 H (3.6-5.0) mmol/L Carbon Dioxide 20 L (22-30) mmol/L BUN 38 H (9-20) mg/dL Creatinine 2.6 H (0.8-1.5) mg/dL Glucose 63 L (75-100) mg/dL POC Glucose 69 L (70-105) Lactic Acid 3.10 H* (0.7-2.0) mmol/L Calcium 8.2 L (8.4-10.2) mg/dL Magnesium (1.7-2.3) mg/dL AST (5-40) units/L NT-Pro-B Natriuret Pep (0-450) pg/mL Total Protein (6.3-8.2) g/dL Albumin (3.9-5) g/dL 07/23/19 07/23/19 07/23/19 Range/Units 02:50 02:50 02:50 WBC 15.0 H (4.5-11.0) K/mm3 RBC (3.65-5.03) M/mm3 Hgb (11.8-15.2) gm/dl Hct (35.5-45.6) % MCV 95 H (84-94) fl Plt Count 118 L (140-440) K/mm3 Lymphocytes % (Manual) 9.0 L (13.4-35.0) % Monocytes % (Manual) 17.0 H (0.0-7.3) % Monocytes # (Manual) 2.6 H (0.0-0.8) K/mm3 D-Dimer (0-234) ng/mlDDU POC ABG pH (7.35-7.45) POC ABG pCO2 (35-45) POC ABG pO2 (80-105) Sodium 134 L (137-145) mmol/L Potassium 7.5 H* D (3.6-5.0) mmol/L Carbon Dioxide 21 L (22-30) mmol/L BUN 47 H (9-20) mg/dL Creatinine 2.7 H (0.8-1.5) mg/dL Glucose (75-100) mg/dL POC Glucose (70-105) Lactic Acid 3.30 H* (0.7-2.0) mmol/L Calcium 7.6 L (8.4-10.2) mg/dL Magnesium 2.90 H (1.7-2.3) mg/dL AST 60 H (5-40) units/L NT-Pro-B Natriuret Pep (0-450) pg/mL Total Protein 5.5 L D (6.3-8.2) g/dL Albumin 2.5 L (3.9-5) g/dL 07/23/19 07/23/19 07/23/19 Range/Units 03:09 04:30 07:30 WBC (4.5-11.0) K/mm3 RBC (3.65-5.03) M/mm3 Hgb (11.8-15.2) gm/dl Hct (35.5-45.6) % MCV (84-94) fl Plt Count (140-440) K/mm3 Lymphocytes % (Manual) (13.4-35.0) % Monocytes % (Manual) (0.0-7.3) % Monocytes # (Manual) (0.0-0.8) K/mm3 D-Dimer (0-234) ng/mlDDU POC ABG pH 7.296 L (7.35-7.45) POC ABG pCO2 (35-45) POC ABG pO2 66 L (80-105) Sodium (137-145) mmol/L Potassium 6.6 H* (3.6-5.0) mmol/L Carbon Dioxide (22-30) mmol/L BUN 50 H (9-20) mg/dL Creatinine 2.6 H (0.8-1.5) mg/dL Glucose (75-100) mg/dL POC Glucose (70-105) Lactic Acid 3.50 H* (0.7-2.0) mmol/L Calcium 7.6 L (8.4-10.2) mg/dL Magnesium (1.7-2.3) mg/dL AST (5-40) units/L NT-Pro-B Natriuret Pep (0-450) pg/mL Total Protein (6.3-8.2) g/dL Albumin (3.9-5) g/dL 07/23/19 07/23/19 07/23/19 Range/Units 09:03 09:03 10:52 WBC (4.5-11.0) K/mm3 RBC (3.65-5.03) M/mm3 Hgb (11.8-15.2) gm/dl Hct (35.5-45.6) % MCV (84-94) fl Plt Count (140-440) K/mm3 Lymphocytes % (Manual) (13.4-35.0) % Monocytes % (Manual) (0.0-7.3) % Monocytes # (Manual) (0.0-0.8) K/mm3 D-Dimer (0-234) ng/mlDDU POC ABG pH 7.280 L (7.35-7.45) POC ABG pCO2 48.7 H (35-45) POC ABG pO2 (80-105) Sodium 136 L (137-145) mmol/L Potassium 7.1 H* (3.6-5.0) mmol/L Carbon Dioxide 20 L (22-30) mmol/L BUN 49 H (9-20) mg/dL Creatinine 2.4 H (0.8-1.5) mg/dL Glucose 67 L (75-100) mg/dL POC Glucose (70-105) Lactic Acid 4.10 H* (0.7-2.0) mmol/L Calcium 7.7 L (8.4-10.2) mg/dL Magnesium (1.7-2.3) mg/dL AST (5-40) units/L NT-Pro-B Natriuret Pep (0-450) pg/mL Total Protein (6.3-8.2) g/dL Albumin (3.9-5) g/dL
--- NOTE | 2019-07-23 13:03 | Post Operative Note ---
Date of procedure: 07/23/19 Pre-op diagnosis: Acute Renal failure Post-op diagnosis: same Procedure: Right IJ Vascath Insertion Anesthesia: local Surgeon: KENAN CARR Estimated blood loss: minimal Pathology: none Condition: critical Disposition: ICU
[2019-07-23] MEDS ORDERED: ALBUMIN HUMAN 25% (25 GM/100 ML) INJ IV PRN (13:11)
--- NOTE | 2019-07-23 13:34 | Anesthesia Day of Surgery ---
Anesthesia Day of Surgery - Day of Surgery Patient Examined: Yes Patient H&P Reviewed: Yes Patient is NPO: Yes Beta Blockers: No Cardiac Clearance: No
--- NOTE | 2019-07-23 13:37 | Progress Note ---
Assessment and Plan Imp: 1. Constipation -> now diarrhea after laxatives 2. Sepsis, suspect intra-abdominal process or less likely pneumonia 3. COULMBA, ? contrast-induced + sepsis 4. Hyperkalemia 2/2 #3 5. Obesity 6. Acute respiratory failure, hypoxia/hypercapnea 7. Lactic acidosis Rec: 1. F/u blood cultures; UA was bland; cannot r/o pneumonia including aspiration although doubtful; on Zosyn and will add Vanco pending work-up 2. Has received multiple fluid boluses; pressors to keep MAP > 65; attempt arterial line placement; Levophed on standby; on bicarb drip 3. For dialysis to correct hyperkalemia; no plans for fluid removal given sepsis/hypotension 4. Reviewed ABG; RR increased 5. F/u LE dopplers; added DVT PPx; D-dimer likely elevated due to sepsis; PE unlikely and he is too unstable to go down for V/Q scan 6. Seen by Surgery; agree that picture is very concerning for intra-abdominal process such as bowel necrosis; planned for ex-lap this afternoon 7. NGT to LIWS 8. Fentanyl drip 9. Consider stress-dose steroids if hypotension worsens 10. Prognosis guarded to poor; mother has been updated per Dr. Tilley CCt 31 minutes Subjective Date of service: 07/23/19 Principal diagnosis: Respiratory Failure Interval history: Events reviewed/noted. Had worsening hypotension. CVL placed by ED MD. Placed on Neosynephrine. Vasopressin added by me this AM. K remains high and vascath has been placed for dialysis. Mentation was poor on BIPAP and thus he was electively intubated by anesthesia. He is arousable, responsive on ventilator, but cannot provide history. Continues to have diarrhea per RN. Active Medications Acetaminophen (Tylenol) 650 mg MD Q4H PRN PRN Reason: Fever >100.5 Albumin Human (Alburx 25% (Albumin)) 25 gm IV DIOR PRN PRN Reason: Hypotension Benztropine Mesylate (Cogentin) 0.5 mg PO QHS [facility] Last Admin: 07/22/19 23:02 Dose: 0.5 mg Documented by: Bisacodyl (Dulcolax) 10 mg PO QDAY PRN PRN Reason: Constipation Clonazepam (Klonopin) 2 mg PO BID [facility] Last Admin: 07/23/19 10:25 Dose: Not Given Documented by: Divalproex Sodium (Depakote Er) 500 mg PO BID [facility] Last Admin: 07/23/19 10:25 Dose: Not Given Documented by: Enoxaparin Sodium (Lovenox) 30 mg SUB-Q QDAY@2200 [facility] Last Admin: 07/22/19 21:58 Dose: 30 mg Documented by: Piperacillin Sod/Tazobactam Sod (Zosyn/Ns 3.375gm/50ml) 3.375 gm in 50 mls @ 100 mls/hr IV Q8HR [facility]; Protocol Last Admin: 07/23/19 07:45 Dose: 100 mls/hr Documented by: Sodium Bicarbonate 150 meq/ (Dextrose) 1,150 mls @ 125 mls/hr IV DIRECT [facility] Last Admin: 07/22/19 21:37 Dose: 125 mls/hr Documented by: Phenylephrine HCl 100 mg/ (Sodium Chloride) 100 mls @ 3 mls/hr IV TITR [facility]; Protocol Last Admin: 07/23/19 12:23 Dose: 50 mcg/min, 3 mls/hr Documented by: Vasopressin 20 unit/ Sodium (Chloride) 101 mls @ 9.09 mls/hr IV TITR [facility]; Protocol Last Admin: 07/23/19 10:42 Dose: 0.03 units/min, 9.09 mls/hr Documented by: Sodium Chloride (Nacl 0.9%) 100 mls @ 999 mls/hr IV DIOR PRN PRN Reason: Hypotension Norepinephrine 8 mg/ Sodium (Chloride) 250 mls @ 3.75 mls/hr IV TITR [facility]; Protocol Last Titration: 07/23/19 13:08 Dose: 0 mcg/min, 0 mls/hr Documented by: Vancomycin HCl (Vancomycin/Ns 1 Gm/250 Ml) 1 gm in 250 mls @ 167.007 mls/hr IV ONCE ONE Stop: 07/23/19 13:59 Last Admin: 07/23/19 12:22 Dose: 167.007 mls/hr Documented by: Fentanyl Citrate (Fentanyl Drip Premix) 2,000 mcg in 100 mls @ 5.557 mls/hr IV TITR [facility]; Protocol Ondansetron HCl (Zofran) 4 mg IV Q8H PRN PRN Reason: Nausea And Vomiting Last Admin: 07/22/19 01:07 Dose: 4 mg Documented by: Trazodone HCl (Desyrel) 100 mg PO HS [facility] Last Admin: 07/22/19 22:32 Dose: 100 mg Documented by: Objective Vital Signs - 12hr 07/23/19 07/23/19 07/23/19 01:41 01:51 02:01 Temperature Pulse Rate 151 H 149 H 150 H Respiratory 60 H 36 H 19 Rate Blood Pressure 99/39 99/39 99/39 O2 Sat by Pulse 93 94 93 Oximetry 07/23/19 07/23/19 07/23/19 02:11 02:21 02:31 Temperature Pulse Rate 151 H 151 H 151 H Respiratory 63 H 62 H 72 H Rate Blood Pressure 99/39 82/21 80/35 O2 Sat by Pulse 91 93 97 Oximetry 07/23/19 07/23/19 07/23/19 02:41 02:51 03:01 Temperature Pulse Rate 149 H 151 H 152 H Respiratory 66 H 67 H 65 H Rate Blood Pressure 80/35 80/35 80/35 O2 Sat by Pulse 97 90 89 Oximetry 07/23/19 07/23/19 07/23/19 03:47 03:51 04:00 Temperature 98.8 F Pulse Rate 152 H 148 H Respiratory 13 Rate Blood Pressure 80/35 80/35 O2 Sat by Pulse 93 Oximetry 07/23/19 07/23/19 07/23/19 04:01 04:11 04:21 Temperature Pulse Rate 149 H 149 H 151 H Respiratory 32 H 49 H 63 H Rate Blood Pressure 80/35 80/35 80/35 O2 Sat by Pulse 94 94 94 Oximetry 07/23/19 07/23/19 07/23/19 04:31 04:41 04:44 Temperature Pulse Rate 151 H 146 H 146 H Respiratory 60 H 27 H 41 H Rate Blood Pressure 80/35 80/35 O2 Sat by Pulse 94 97 97 Oximetry 07/23/19 07/23/19 07/23/19 04:51 05:01 05:11 Temperature Pulse Rate 146 H 150 H 144 H Respiratory 40 H 60 H 41 H Rate Blood Pressure 80/35 80/35 80/35 O2 Sat by Pulse 99 96 98 Oximetry 07/23/19 07/23/19 07/23/19 05:21 05:31 05:41 Temperature Pulse Rate 143 H 143 H 142 H Respiratory 34 H 36 H 38 H Rate Blood Pressure 103/42 115/35 115/35 O2 Sat by Pulse 96 93 93 Oximetry 07/23/19 07/23/19 07/23/19 05:51 06:01 06:11 Temperature Pulse Rate 144 H 143 H 138 H Respiratory 55 H 43 H 18 Rate Blood Pressure 116/69 102/41 102/41 O2 Sat by Pulse 99 100 98 Oximetry 07/23/19 07/23/19 07/23/19 06:21 06:31 06:41 Temperature Pulse Rate 144 H 144 H 143 H Respiratory 65 H 40 H 40 H Rate Blood Pressure 102/41 91/43 91/43 O2 Sat by Pulse 99 99 100 Oximetry 07/23/19 07/23/19 07/23/19 06:51 07:01 07:10 Temperature Pulse Rate 145 H 142 H 144 H Respiratory 59 H 45 H 69 H Rate Blood Pressure 111/39 111/39 98/44 O2 Sat by Pulse 100 98 100 Oximetry 07/23/19 07/23/19 07/23/19 07:20 07:30 07:40 Temperature Pulse Rate 144 H 140 H 141 H Respiratory 48 H 38 H 46 H Rate Blood Pressure 98/44 92/36 98/44 O2 Sat by Pulse 98 97 97 Oximetry 07/23/19 07/23/19 07/23/19 07:50 08:00 08:10 Temperature 98.8 F Pulse Rate 144 H 140 H 140 H Respiratory 47 H 41 H 46 H Rate Blood Pressure 98/41 104/44 101/54 O2 Sat by Pulse 97 100 100 Oximetry 07/23/19 10:13 Temperature Pulse Rate 129 H Respiratory Rate Blood Pressure O2 Sat by Pulse 98 Oximetry Constitutional: other (obese, awake, critically ill on ventilator) Eyes: non-icteric ENT: oropharynx moist Neck: supple Effort: normal Ascultation: Bilateral: diminished breath sounds (due to obesity) Cardiovascular: other (sinus tachy, no mrg, regular rhythm) Gastrointestinal: normoactive bowel sounds, soft, other (morbidly obese abd) Integumentary: normal Extremities: no cyanosis, no edema, pink and warm Neurologic: normal mental status, non-focal exam, pupils equal and round Psychiatric: mood appropriate, affect normal CBC and BMP: 07/23/19 02:50 07/23/19 09:03 ABG, PT/INR, D-dimer: ABG POC ABG pH 7.280 (7.35-7.45) L 07/23/19 10:52 POC ABG pCO2 48.7 (35-45) H 07/23/19 10:52 POC ABG pO2 105 (80-105) 07/23/19 10:52 POC ABG HCO3 22.9 (22-26 mml/L) 07/23/19 10:52 POC ABG Total CO2 24 (23-27mmol/L) 07/23/19 10:52 POC ABG O2 Sat 97 07/23/19 10:52 PT/INR, D-dimer D-Dimer 886.89 ng/mlDDU (0-234) H 07/22/19 21:45 Abnormal lab findings: Abnormal Labs 07/21/19 07/21/19 07/22/19 19:02 19:02 10:50 WBC 12.1 H 13.7 H RBC 5.56 H Hgb 17.1 H Hct 52.9 H D MCV 95 H 95 H Plt Count 130 L 137 L Lymph % (Auto) 7.2 L [place] % (Auto) 9.6 H Lymph # 0.9 L [place] # 1.2 H Seg Neutrophils % 82.8 H Lymphocytes % (Manual) Monocytes % (Manual) Seg Neutrophils # 10.0 H Monocytes # (Manual) D-Dimer POC ABG pH POC ABG pCO2 POC ABG pO2 Sodium 136 L Potassium Chloride 95.9 L Carbon Dioxide BUN Creatinine Glucose 163 H POC Glucose Lactic Acid Calcium Phosphorus Magnesium AST NT-Pro-B Natriuret Pep Total Protein Albumin Lipase 10 L 07/22/19 07/22/19 07/22/19 10:50 15:33 15:33 WBC 13.1 H RBC 5.10 H Hgb 15.9 H Hct 49.0 H MCV 96 H Plt Count 127 L Lymph % (Auto) [place] % (Auto) Lymph # [place] # Seg Neutrophils % Lymphocytes % (Manual) Monocytes % (Manual) Seg Neutrophils # Monocytes # (Manual) D-Dimer POC ABG pH POC ABG pCO2 POC ABG pO2 Sodium 136 L Potassium 5.3 H D 6.0 H Chloride 96.7 L Carbon Dioxide 17 L BUN 22 H 29 H Creatinine 2.0 H D 2.2 H Glucose 129 H 121 H POC Glucose Lactic Acid Calcium 8.2 L Phosphorus 4.70 H Magnesium 3.10 H AST NT-Pro-B Natriuret Pep Total Protein Albumin Lipase 07/22/19 07/22/19 07/22/19 18:19 18:42 21:45 WBC RBC Hgb Hct MCV Plt Count Lymph % (Auto) [place] % (Auto) Lymph # [place] # Seg Neutrophils % Lymphocytes % (Manual) Monocytes % (Manual) Seg Neutrophils # Monocytes # (Manual) D-Dimer 886.89 H POC ABG pH 7.197 L POC ABG pCO2 45.2 H POC ABG pO2 Sodium Potassium Chloride Carbon Dioxide BUN Creatinine Glucose POC Glucose 107 H Lactic Acid Calcium Phosphorus Magnesium AST NT-Pro-B Natriuret Pep Total Protein Albumin Lipase 07/22/19 07/22/19 07/22/19 21:45 21:45 21:45 WBC RBC Hgb Hct MCV Plt Count Lymph % (Auto) [place] % (Auto) Lymph # [place] # Seg Neutrophils % Lymphocytes % (Manual) Monocytes % (Manual) Seg Neutrophils # Monocytes # (Manual) D-Dimer POC ABG pH POC ABG pCO2 POC ABG pO2 Sodium 136 L Potassium 5.6 H Chloride Carbon Dioxide 20 L BUN 38 H Creatinine 2.6 H Glucose 63 L POC Glucose Lactic Acid 3.10 H* Calcium 8.2 L Phosphorus Magnesium AST NT-Pro-B Natriuret Pep 5407 H Total Protein Albumin Lipase 07/23/19 07/23/19 07/23/19 02:11 02:50 02:50 WBC 15.0 H RBC Hgb Hct MCV 95 H Plt Count 118 L Lymph % (Auto) [place] % (Auto) Lymph # [place] # Seg Neutrophils % Lymphocytes % (Manual) 9.0 L Monocytes % (Manual) 17.0 H Seg Neutrophils # Monocytes # (Manual) 2.6 H D-Dimer POC ABG pH POC ABG pCO2 POC ABG pO2 Sodium Potassium Chloride Carbon Dioxide BUN Creatinine Glucose POC Glucose 69 L Lactic Acid 3.30 H* Calcium Phosphorus Magnesium AST NT-Pro-B Natriuret Pep Total Protein Albumin Lipase 07/23/19 07/23/19 07/23/19 02:50 03:09 04:30 WBC RBC Hgb Hct MCV Plt Count Lymph % (Auto) [place] % (Auto) Lymph # [place] # Seg Neutrophils % Lymphocytes % (Manual) Monocytes % (Manual) Seg Neutrophils # Monocytes # (Manual) D-Dimer POC ABG pH 7.296 L POC ABG pCO2 POC ABG pO2 66 L Sodium 134 L Potassium 7.5 H* D Chloride Carbon Dioxide 21 L BUN 47 H Creatinine 2.7 H Glucose POC Glucose Lactic Acid 3.50 H* Calcium 7.6 L Phosphorus Magnesium 2.90 H AST 60 H NT-Pro-B Natriuret Pep Total Protein 5.5 L D Albumin 2.5 L Lipase 07/23/19 07/23/19 07/23/19 07:30 09:03 09:03 WBC RBC Hgb Hct MCV Plt Count Lymph % (Auto) [place] % (Auto) Lymph # [place] # Seg Neutrophils % Lymphocytes % (Manual) Monocytes % (Manual) Seg Neutrophils # Monocytes # (Manual) D-Dimer POC ABG pH POC ABG pCO2 POC ABG pO2 Sodium 136 L Potassium 6.6 H* 7.1 H* Chloride Carbon Dioxide 20 L BUN 50 H 49 H Creatinine 2.6 H 2.4 H Glucose 67 L POC Glucose Lactic Acid 4.10 H* Calcium 7.6 L 7.7 L Phosphorus Magnesium AST NT-Pro-B Natriuret Pep Total Protein Albumin Lipase 07/23/19 10:52 WBC RBC Hgb Hct MCV Plt Count Lymph % (Auto) [place] % (Auto) Lymph # [place] # Seg Neutrophils % Lymphocytes % (Manual) Monocytes % (Manual) Seg Neutrophils # Monocytes # (Manual) D-Dimer POC ABG pH 7.280 L POC ABG pCO2 48.7 H POC ABG pO2 Sodium Potassium Chloride Carbon Dioxide BUN Creatinine Glucose POC Glucose Lactic Acid Calcium Phosphorus Magnesium AST NT-Pro-B Natriuret Pep Total Protein Albumin Lipase Chest x-ray: report reviewed, image reviewed (ET tube adequately above selina)
--- NOTE | 2019-07-23 13:38 | Anesthesia Consultation ---
Anesthesia Consult and Med Hx Date of service: 07/23/19 - Pre-Operative Health Status ASA Pre-Surgery Classification: ASA4 Proposed Anesthetic Plan: General - Pre-Anesthesia Comment Pre-Anesthesia Comments: Intubated earlier today. Undergoing dialysis then to OR for urgent Exp. Lap. - Pulmonary Hx Smoking: No Hx Asthma: No (Hx) Hx Respiratory Symptoms: Yes (Resp failure. Intubated today ()) COPD: No Hx Pneumonia: No - Cardiovascular System Hx Hypertension: No (Hypotensive, pressors required) - Central Nervous System Hx Seizures: Yes Hx Psychiatric Problems: Yes (Down's Syndrome) - Endocrine Hx Renal Disease: Yes (Acute renal failure with Hyperkalemia. To undergo dialysis prior to surgery) Hx End Stage Renal Disease: No - Other Systems Hx Alcohol Use: No - Additional Comments Anesthesia Medical History Comments: 19yo pt w/ Down's Syndrome. [place]. H/O seizures, partial colectomy /osteotomy 06/2016; ostomy reversal in 2016. Presented initally with severe abd. pain, vomiting, and constipation
--- NOTE | 2019-07-23 13:47 | XRay Report ---
CHEST 1 VIEW INDICATION: vas cath placement. COMPARISON: 07/23/2019 at 1143 hours FINDINGS: Support devices: The endotracheal tube appears to terminate at the selina on this exam. The nasogastr ic tube terminates in the distal stomach. Right IJ vas catheter terminates in the superior right atri um. Heart: Within normal limits. Lungs/Pleura: There is poor inspiration with hypoventilatory changes in both lower lung zones. No con solidation, large pleural effusion or pneumothorax. Additional findings: None. IMPRESSION: Right IJ Vas-Cath as described. The endotracheal tube terminates at the selina. Please correlate with the image. Grossly negative expiratory chest x-ray. Signer Name: Jacob Corrales Jr, MD Signed: 07/23/2019 1:42 PM Workstation Name: [id number]
[2019-07-23 14:08] LABS: Hepatitis B Surface Antigen Non-Reactive (Negative); Hepatitis C Virus Antibody Non-Reactive (NonReactive)
--- NOTE | 2019-07-23 15:16 | Vascular Lab Report ---
DUPLEX DOPPLER LOWER EXTREMITY VEINS, BILATERAL INDICATION: Hypoxia, obesity, r/o DVT. TECHNIQUE: Duplex doppler imaging was performed through the veins of both lower extremities using ve nous compression and other maneuvers. COMPARISON: No relevant prior imaging study available. FINDINGS: Right Common femoral vein: Negative. Right Superficial femoral vein: Negative. Right Popliteal vein: Negative. Right Calf veins: Negative. Left Common femoral vein: Negative. Left Superficial femoral vein: Negative. Left Popliteal vein: Negative. Left Calf veins: Negative. Additional findings: None.. IMPRESSION: No sonographic evidence for DVT in either lower extremity. Signer Name: Jacob Corrales Jr, MD Signed: 07/23/2019 3:11 PM Workstation Name: [id number]
--- NOTE | 2019-07-23 15:36 | Consultation ---
History of Present Illness - Reason for Consult Consult date: 07/23/19 Sepsis Requesting physician: RADHA ARGUETA - History of Present Illness The patient is a 19-year-old male with Down syndrome who was admitted to the hospital on 07/29/2019 with complaints of abdominal pain, nausea, vomiting and CT scan findings of significant colonic distention, constipation and fecal impaction. He was given a bowel prep/laxatives. Later, the patient started declining with hypotension and shock. Has also developed acute renal failure. Currently he is intubated, sedated in ICU. He is on 2 pressors. Infectious diseases was consulted for antibiotic recommendations. General surgery is also following with plans for an exploratory laparotomy later today. Review of Systems: Unable to obtain, sedated intubated Past History Past Medical History: other (Downs syndrome) Past Surgical History: bowel surgery (ex lap with partial colectomy and ostomy in 06/2016. Ostomy reversal in 2016. ) Social history: full code, other ([facility]). denies: smoking, alcohol abuse, prescription drug abuse, IV drug use Family history: other (No pulm issues reported) Medications and Allergies Allergies Allergy/AdvReac Type Severity Reaction Status Date / Time No Known Allergies Allergy Verified 10/20/15 03:43 Home Medications Medication Instructions Recorded Confirmed Last Taken Type Benztropine [Cogentin] 0.5 mg PO QHS 05/17/19 06/05/19 Unknown History Divalproex ER [Depakote ER] 500 mg PO BID 05/17/19 06/05/19 Unknown History clonazePAM [KlonoPIN] 2 mg PO BID 05/17/19 06/05/19 Unknown History traZODone [Desyrel] 100 mg PO HS 06/05/19 06/05/19 Unknown History Acetaminophen [Acetaminophen TAB] 650 mg PO Q4H PRN tablet 06/06/19 Unknown Rx Divalproex ER [Depakote ER] 500 mg PO BID tablet 06/06/19 Unknown Rx Lactulose 10 gm PO DAILY PRN #150 ml 07/21/19 Unknown Rx Ondansetron [Zofran Odt] 4 mg PO Q8HR PRN #14 tab.rapdis 07/21/19 Unknown Rx Sodium Phosphate,Ellis-Dibasic 118 ml RC ONCE #1 enema 07/21/19 Unknown Rx [Fleet Enema] Active Meds: Active Medications Acetaminophen (Tylenol) 650 mg WI Q4H PRN PRN Reason: Fever >100.5 Albumin Human (Alburx 25% (Albumin)) 25 gm IV DIOR PRN PRN Reason: Hypotension Benztropine Mesylate (Cogentin) 0.5 mg PO QHS STEPHEN Last Admin: 07/22/19 23:02 Dose: 0.5 mg Documented by: Bisacodyl (Dulcolax) 10 mg PO QDAY PRN PRN Reason: Constipation Clonazepam (Klonopin) 2 mg PO BID [facility] Last Admin: 07/23/19 10:25 Dose: Not Given Documented by: Divalproex Sodium (Depakote Er) 500 mg PO BID STEPHEN Last Admin: 07/23/19 10:25 Dose: Not Given Documented by: Enoxaparin Sodium (Lovenox) 30 mg SUB-Q QDAY@2200 STEPHEN Last Admin: 07/22/19 21:58 Dose: 30 mg Documented by: Sodium Bicarbonate 150 meq/ (Dextrose) 1,150 mls @ 125 mls/hr IV DIRECT STEPHEN Last Admin: 07/22/19 21:37 Dose: 125 mls/hr Documented by: Phenylephrine HCl 100 mg/ (Sodium Chloride) 100 mls @ 3 mls/hr IV TITR STEPHEN; Protocol Last Titration: 07/23/19 09:30 Dose: 140 mcg/min, 8.4 mls/hr Documented by: Vasopressin 20 unit/ Sodium (Chloride) 101 mls @ 9.09 mls/hr IV TITR STEPHEN; Protocol Last Admin: 07/23/19 10:42 Dose: 0.03 units/min, 9.09 mls/hr Documented by: Sodium Chloride (Nacl 0.9%) 100 mls @ 999 mls/hr IV DIOR PRN PRN Reason: Hypotension Norepinephrine 8 mg/ Sodium (Chloride) 250 mls @ 3.75 mls/hr IV TITR STEPHEN; Protocol Last Titration: 07/23/19 13:08 Dose: 0 mcg/min, 0 mls/hr Documented by: Fentanyl Citrate (Fentanyl Drip Premix) 2,000 mcg in 100 mls @ 5.557 mls/hr IV TITR STEPHEN; Protocol Cefepime HCl (Maxipime/Ns 2 Gm/100 Ml) 2 gm in 100 mls @ 200 mls/hr IV Q24HR STEPHEN; Protocol Metronidazole (Flagyl 500 Mg/100 Ml) 500 mg in 100 mls @ 100 mls/hr IV Q8HR STEPHEN; Protocol Ondansetron HCl (Zofran) 4 mg IV Q8H PRN PRN Reason: Nausea And Vomiting Last Admin: 07/22/19 01:07 Dose: 4 mg Documented by: Trazodone HCl (Desyrel) 100 mg PO HS STEPHEN Last Admin: 07/22/19 22:32 Dose: 100 mg Documented by: Physical Examination - Physical Exam Narrative exam: Physical Exam: Constitutional: sedated, intubated Head, Ears, Nose: Normocephalic, atraumatic. External ears, nose normal Eyes: Conjunctivae/corneas clear. No icterus. No ptosis. Neck: Supple, no meningeal signs Oral: intubated Cardiovascular: S1, S2 normal. Respiratory: Good air entry, clear to auscultation bilaterally GI: Soft, non-tender; bowel sounds normal. No peritoneal signs Musculoskeletal: No pedal edema, no cyanosis. Femoral line present, dialysis catheter present Skin: No rash or abscess Hem/Lymphatic: No palpable cervical or supraclavicular nodes. No lymphangitis Psych: no agitation Neurological: sedated, intubated, on vent - Constitutional Vitals: Vital Signs Temp Pulse Resp BP Pulse Ox 99 F 104 H 25 H 142/85 100 07/23/19 12:00 07/23/19 15:30 07/23/19 14:30 07/23/19 15:30 07/23/19 14:30 Temperature -Last 24 Hours Temperature 99 F Temperature 98.8 F Temperature 98.8 F Temperature 100 F Temperature 100.1 F Temperature 97.7 F Results - Labs CBC & Chem 7: 07/23/19 02:50 07/23/19 09:03 Labs: Abnormal lab results 07/22/19 07/22/19 07/22/19 Range/Units 15:33 15:33 18:19 WBC 13.1 H (4.5-11.0) K/mm3 RBC 5.10 H (3.65-5.03) M/mm3 Hgb 15.9 H (11.8-15.2) gm/dl Hct 49.0 H (35.5-45.6) % MCV 96 H (84-94) fl Plt Count 127 L (140-440) K/mm3 Lymphocytes % (Manual) (13.4-35.0) % Monocytes % (Manual) (0.0-7.3) % Monocytes # (Manual) (0.0-0.8) K/mm3 D-Dimer (0-234) ng/mlDDU POC ABG pH (7.35-7.45) POC ABG pCO2 (35-45) POC ABG pO2 (80-105) Sodium 136 L (137-145) mmol/L Potassium 6.0 H (3.6-5.0) mmol/L Carbon Dioxide 17 L (22-30) mmol/L BUN 29 H (9-20) mg/dL Creatinine 2.2 H (0.8-1.5) mg/dL Glucose 121 H (75-100) mg/dL POC Glucose 107 H (70-105) Lactic Acid (0.7-2.0) mmol/L Calcium 8.2 L (8.4-10.2) mg/dL Magnesium (1.7-2.3) mg/dL AST (5-40) units/L NT-Pro-B Natriuret Pep (0-450) pg/mL Total Protein (6.3-8.2) g/dL Albumin (3.9-5) g/dL 07/22/19 07/22/19 07/22/19 Range/Units 18:42 21:45 21:45 WBC (4.5-11.0) K/mm3 RBC (3.65-5.03) M/mm3 Hgb (11.8-15.2) gm/dl Hct (35.5-45.6) % MCV (84-94) fl Plt Count (140-440) K/mm3 Lymphocytes % (Manual) (13.4-35.0) % Monocytes % (Manual) (0.0-7.3) % Monocytes # (Manual) (0.0-0.8) K/mm3 D-Dimer 886.89 H (0-234) ng/mlDDU POC ABG pH 7.197 L (7.35-7.45) POC ABG pCO2 45.2 H (35-45) POC ABG pO2 (80-105) Sodium (137-145) mmol/L Potassium (3.6-5.0) mmol/L Carbon Dioxide (22-30) mmol/L BUN (9-20) mg/dL Creatinine (0.8-1.5) mg/dL Glucose (75-100) mg/dL POC Glucose (70-105) Lactic Acid (0.7-2.0) mmol/L Calcium (8.4-10.2) mg/dL Magnesium (1.7-2.3) mg/dL AST (5-40) units/L NT-Pro-B Natriuret Pep 5407 H (0-450) pg/mL Total Protein (6.3-8.2) g/dL Albumin (3.9-5) g/dL 07/22/19 07/22/19 07/23/19 Range/Units 21:45 21:45 02:11 WBC (4.5-11.0) K/mm3 RBC (3.65-5.03) M/mm3 Hgb (11.8-15.2) gm/dl Hct (35.5-45.6) % MCV (84-94) fl Plt Count (140-440) K/mm3 Lymphocytes % (Manual) (13.4-35.0) % Monocytes % (Manual) (0.0-7.3) % Monocytes # (Manual) (0.0-0.8) K/mm3 D-Dimer (0-234) ng/mlDDU POC ABG pH (7.35-7.45) POC ABG pCO2 (35-45) POC ABG pO2 (80-105) Sodium 136 L (137-145) mmol/L Potassium 5.6 H (3.6-5.0) mmol/L Carbon Dioxide 20 L (22-30) mmol/L BUN 38 H (9-20) mg/dL Creatinine 2.6 H (0.8-1.5) mg/dL Glucose 63 L (75-100) mg/dL POC Glucose 69 L (70-105) Lactic Acid 3.10 H* (0.7-2.0) mmol/L Calcium 8.2 L (8.4-10.2) mg/dL Magnesium (1.7-2.3) mg/dL AST (5-40) units/L NT-Pro-B Natriuret Pep (0-450) pg/mL Total Protein (6.3-8.2) g/dL Albumin (3.9-5) g/dL 07/23/19 07/23/19 07/23/19 Range/Units 02:50 02:50 02:50 WBC 15.0 H (4.5-11.0) K/mm3 RBC (3.65-5.03) M/mm3 Hgb (11.8-15.2) gm/dl Hct (35.5-45.6) % MCV 95 H (84-94) fl Plt Count 118 L (140-440) K/mm3 Lymphocytes % (Manual) 9.0 L (13.4-35.0) % Monocytes % (Manual) 17.0 H (0.0-7.3) % Monocytes # (Manual) 2.6 H (0.0-0.8) K/mm3 D-Dimer (0-234) ng/mlDDU POC ABG pH (7.35-7.45) POC ABG pCO2 (35-45) POC ABG pO2 (80-105) Sodium 134 L (137-145) mmol/L Potassium 7.5 H* D (3.6-5.0) mmol/L Carbon Dioxide 21 L (22-30) mmol/L BUN 47 H (9-20) mg/dL Creatinine 2.7 H (0.8-1.5) mg/dL Glucose (75-100) mg/dL POC Glucose (70-105) Lactic Acid 3.30 H* (0.7-2.0) mmol/L Calcium 7.6 L (8.4-10.2) mg/dL Magnesium 2.90 H (1.7-2.3) mg/dL AST 60 H (5-40) units/L NT-Pro-B Natriuret Pep (0-450) pg/mL Total Protein 5.5 L D (6.3-8.2) g/dL Albumin 2.5 L (3.9-5) g/dL 07/23/19 07/23/19 07/23/19 Range/Units 03:09 04:30 07:30 WBC (4.5-11.0) K/mm3 RBC (3.65-5.03) M/mm3 Hgb (11.8-15.2) gm/dl Hct (35.5-45.6) % MCV (84-94) fl Plt Count (140-440) K/mm3 Lymphocytes % (Manual) (13.4-35.0) % Monocytes % (Manual) (0.0-7.3) % Monocytes # (Manual) (0.0-0.8) K/mm3 D-Dimer (0-234) ng/mlDDU POC ABG pH 7.296 L (7.35-7.45) POC ABG pCO2 (35-45) POC ABG pO2 66 L (80-105) Sodium (137-145) mmol/L Potassium 6.6 H* (3.6-5.0) mmol/L Carbon Dioxide (22-30) mmol/L BUN 50 H (9-20) mg/dL Creatinine 2.6 H (0.8-1.5) mg/dL Glucose (75-100) mg/dL POC Glucose (70-105) Lactic Acid 3.50 H* (0.7-2.0) mmol/L Calcium 7.6 L (8.4-10.2) mg/dL Magnesium (1.7-2.3) mg/dL AST (5-40) units/L NT-Pro-B Natriuret Pep (0-450) pg/mL Total Protein (6.3-8.2) g/dL Albumin (3.9-5) g/dL 07/23/19 07/23/19 07/23/19 Range/Units 09:03 09:03 10:52 WBC (4.5-11.0) K/mm3 RBC (3.65-5.03) M/mm3 Hgb (11.8-15.2) gm/dl Hct (35.5-45.6) % MCV (84-94) fl Plt Count (140-440) K/mm3 Lymphocytes % (Manual) (13.4-35.0) % Monocytes % (Manual) (0.0-7.3) % Monocytes # (Manual) (0.0-0.8) K/mm3 D-Dimer (0-234) ng/mlDDU POC ABG pH 7.280 L (7.35-7.45) POC ABG pCO2 48.7 H (35-45) POC ABG pO2 (80-105) Sodium 136 L (137-145) mmol/L Potassium 7.1 H* (3.6-5.0) mmol/L Carbon Dioxide 20 L (22-30) mmol/L BUN 49 H (9-20) mg/dL Creatinine 2.4 H (0.8-1.5) mg/dL Glucose 67 L (75-100) mg/dL POC Glucose (70-105) Lactic Acid 4.10 H* (0.7-2.0) mmol/L Calcium 7.7 L (8.4-10.2) mg/dL Magnesium (1.7-2.3) mg/dL AST (5-40) units/L NT-Pro-B Natriuret Pep (0-450) pg/mL Total Protein (6.3-8.2) g/dL Albumin (3.9-5) g/dL 07/23/19 07/23/19 Range/Units 13:13 14:48 WBC (4.5-11.0) K/mm3 RBC (3.65-5.03) M/mm3 Hgb (11.8-15.2) gm/dl Hct (35.5-45.6) % MCV (84-94) fl Plt Count (140-440) K/mm3 Lymphocytes % (Manual) (13.4-35.0) % Monocytes % (Manual) (0.0-7.3) % Monocytes # (Manual) (0.0-0.8) K/mm3 D-Dimer (0-234) ng/mlDDU POC ABG pH (7.35-7.45) POC ABG pCO2 (35-45) POC ABG pO2 (80-105) Sodium (137-145) mmol/L Potassium (3.6-5.0) mmol/L Carbon Dioxide (22-30) mmol/L BUN (9-20) mg/dL Creatinine (0.8-1.5) mg/dL Glucose (75-100) mg/dL POC Glucose 123 H (70-105) Lactic Acid 4.10 H* (0.7-2.0) mmol/L Calcium (8.4-10.2) mg/dL Magnesium (1.7-2.3) mg/dL AST (5-40) units/L NT-Pro-B Natriuret Pep (0-450) pg/mL Total Protein (6.3-8.2) g/dL Albumin (3.9-5) g/dL - Imaging and Cardiology Chest x-ray: report reviewed, image reviewed (X-ray does not show pneumonia) CT scan - abdomen: report reviewed, image reviewed (CT abdomen and pelvis shows fecal impaction and colonic distention.) Assessment and Plan Cultures: 07/21/2019 blood culture: No growth A/P: 19-year-old male with Down syndrome admitted with severe constipation and fecal impaction: 1) Shock, possibly septic: suspect intra-abdominal source. 2) Acute renal failure: Now requiring dialysis. Renally dose abx. 3) Fecal impaction, colonic distention and shock: Gen. surgery following. Plans for exploratory laparotomy. 4) Acute respiratory failure: Intubated, on vent. Recs: Started renally adjusted cefepime and Flagyl Guarded prognosis d/w Dr. Argueta. Meghan Williamson MD, FACP [facility] ([facility]) C: [phone] O: [phone] F: [phone]
[2019-07-23] MEDS: metroNIDAZOLE/NS 500 MG/100 ML 500 MG/100 ML BAG IV SCH ×2 (15:58→23:35)
[2019-07-23] MEDS: CEFEPIME/NS 2 GM/100 ML 2 GM/100 ML BAG IV SCH (16:40)
[2019-07-23] MEDS ORDERED: HYDROmorphone 1 MG/1 ML INJ ONE (18:36)
[2019-07-23] MEDS: fentaNYL DRIP Premix 2,000 MCG/100 ML BAG IV SCH (20:03)
--- NOTE | 2019-07-23 20:05 | Post Operative Note ---
Date of procedure: 07/23/19 (dictation:[id number]) Pre-op diagnosis: r/o ischemic bowel Post-op diagnosis: other (Ischemia of transverse colon) Findings: Multiple distinct areas of necrosis on transverse colon. rest of intestines were normal Procedure: Ex Lap Partial Colon Resection Abthera Placement EBL<50cc Anesthesia: CARLOS Surgeon: ASHISH HARVEY Organic Preparation Technician: KARLY LOYA Estimated blood loss: 50-100ml Pathology: list (portion of transverse colon) Specimen disposition: to lab Condition: stable Disposition: ICU
--- NOTE | 2019-07-23 20:27 | Post Anesthesia Evaluation ---
- Post Anesthesia Evaluation Patient Participated: No (sedated/intubated) Airway Patent: Yes Stable Respiratory Function: Yes Nausea/Vomiting: No Temp > 96.8F: Yes Pain Manageable: Yes Adequeate Hydration: Yes Anesthesia Complications: No Block Receding Appropriately: Not Applicable Patient on Ventilator: Yes (vent settings unchanged from preop) Other Comments: Transported to ICU with monitors, ventilation via AMBU. No change in pressor requirements. Reports given to WORK ADJUSTMENT INSTRUCTOR and RT.
[2019-07-23 21:12] LABS: BUN/Creatinine Ratio 21; Blood Urea Nitrogen 29 mg/dL (9-20); Calcium 7.4 mg/dL (8.4-10.2); Hemolysis Index 3
[2019-07-23] MEDS: BENZTROPINE 0.5 MG TAB PO SCH (21:13)
[2019-07-23] MEDS: traZODone 100 MG TAB PO SCH (21:17)
--- NOTE | 2019-07-23 21:24 | XRay Report ---
Abdomen single view INDICATION: Abdominal pain IMPRESSION: The esophagogastric tube terminates within the mid stomach. A central venous line is seen in the right groin. No radiopaque or metallic abnormality appreciated. Signer Name: Fidencio Khoury MD Signed: 07/23/2019 9:19 PM Workstation Name: [id number]
[2019-07-23] MEDS: SODIUM BICARBONATE 150 MEQ in DEXTROSE 5% IN WATER 1,000 ML IV SCH (21:58)
[2019-07-23] MEDS: ENOXAPARIN 30 MG/0.3 ML INJ SUB-Q SCH (23:35)
--- NOTE | 2019-07-24 00:07 | Procedure Note ---
STAFF SURGEON: Dr. Kolton Sparks. PREOPERATIVE DIAGNOSIS: Acute renal failure. POSTOPERATIVE DIAGNOSIS: Acute renal failure. PROCEDURE PERFORMED: Right IJ Trialysis catheter insertion. COMPLICATIONS: None. ESTIMATED BLOOD LOSS: Minimal. ANESTHESIA: Local. INDICATIONS FOR PROCEDURE: This is a 19-year-old gentleman with multiple medical problems who is currently hospitalized with worsening abdominal pain, thought to be secondary to severe constipation. During the patient's hospitalization, his clinical condition began to deteriorate with hypotension requiring pressor support, respiratory failure and acute renal failure. The patient's potassium continued to rise, not responding to conservative management and therefore vascular consultation was obtained for dialysis access placement to address the patient's renal failure. The patient's mother was explained all the risks, benefits and alternatives of the procedure. She expressed understanding and wished to proceed. DESCRIPTION OF PROCEDURE: The appropriate consent was obtained. The patient's right neck and chest were prepped and draped in usual sterile fashion with ChloraPrep. We then began the procedure by obtaining percutaneous access of the right internal jugular vein using the 18-gauge needle was to obtain access. A stiff J-wire was placed into the inferior vena cava. The needle was removed. The access site was sealed with dilator appropriately. Then, a 15 cm Trialysis catheter was then placed over the wire into the SVC. The wire was removed. All lumens kimberli blood appropriately were flushed with heparinized saline. Appropriate amount of heparin was placed in each port. Catheter was then sutured in place with 2-0 nylon. Appropriate dressing was placed. The patient tolerated the procedure well. He remained in critical condition and the catheter was ready for use. JOB# [id number] HELEN/SERGO
[2019-07-24 00:59] LABS: ABG Base Excess -0.1 mmol/L (-2.0-3.0); ABG HCO3 23.6 mmol/L (20.0-26.0); ABG Methemoglobin 0.5 % (0.0-1.5); ABG Oxygen Saturation 98.9 % (95.0-99.0); ABG PH 7.435 pH Units (7.350-7.450); ABG PO2 151.3 mm Hg (80.0-90.0)
--- NOTE | 2019-07-24 03:23 | XRay Report ---
CHEST 1 VIEW INDICATION / CLINICAL INFORMATION: Acute respiratory failure. COMPARISON: 07/23/2019 FINDINGS: SUPPORT DEVICES: Stable, satisfactory device positioning. HEART / MEDIASTINUM: No significant abnormality. LUNGS / PLEURA: No significant pulmonary or pleural abnormality. No pneumothorax. ADDITIONAL FINDINGS: No significant additional findings. IMPRESSION: 1. No acute findings. Signer Name: Bernardino Perez MD Signed: 07/24/2019 3:19 AM Workstation Name: [id number]
[2019-07-24] MEDS: metroNIDAZOLE/NS 500 MG/100 ML 500 MG/100 ML BAG IV SCH ×3 (05:43→21:19)
[2019-07-24] MEDS: CEFEPIME/NS 2 GM/100 ML 2 GM/100 ML BAG IV SCH ×2 (05:43→16:33)
[2019-07-24 05:48] LABS: Hematocrit 40.3 % (35.5-45.6); Hemoglobin 13.5 gm/dl (11.8-15.2); Mean Corpuscular HGB Conc 34 % (32-34); Mean Corpuscular Volume 94 fl (84-94); Red Cell Distribution Width 15.1 % (13.2-15.2)
[2019-07-24 05:49] LABS: Platelet Count 89 K/mm3 (140-440)
[2019-07-24] MEDS: fentaNYL DRIP Premix 2,000 MCG/100 ML BAG IV SCH (05:50)
[2019-07-24 06:14] LABS: Alanine Aminotransferase 45 units/L (7-56); Albumin 2.5 g/dL (3.9-5); BUN/Creatinine Ratio 24; Blood Urea Nitrogen 29 mg/dL (9-20); Calcium 7.4 mg/dL (8.4-10.2); Hemolysis Index 5
[2019-07-24 06:42] LABS: Anisocytosis 1+; Band Neutrophils # (Manual) 2.7 K/mm3; Basophils % (Manual) 0 % (0.0-1.8); Eosinophils % (Manual) 0 % (0.0-4.3); Total Cells Counted 100
[2019-07-24 06:43] LABS: Large Platelets Few; Platelet Estimate Consistent w Auto; Toxic Vacuolation Few
[2019-07-24] MEDS: SODIUM BICARBONATE 150 MEQ in DEXTROSE 5% IN WATER 1,000 ML IV SCH (07:25)
[2019-07-24] MEDS: PHENYLEPHRINE 100 MG in SODIUM CHLORIDE 0.9% 90 ML IV SCH (07:45)
[2019-07-24] MEDS: VASOPRESSIN 20 UNIT in SODIUM CHLORIDE 0.9% 100 ML IV SCH ×2 (08:14→18:31)
--- NOTE | 2019-07-24 08:47 | Progress Note ---
Assessment and Plan - Patient Problems (1) Ischemic necrosis of large intestine Current Visit: Yes Status: Acute Plan to address problem: Pt appears improved. s/p ex-lap with partial colon resection (07/23) - POD#1 Needs further resuscitation based on lab data and continued need for pressors. Tentative plan to return to OR on at 0930. Discussed in depth with mom. Plan is for completion colectomy. Consent obtained. Please call with questions. Subjective Date of service: 07/24/19 Patient Reports: Positive: other (no significant issues o/n) Objective Vital Signs - 12hr 07/23/19 07/23/19 07/23/19 20:50 21:00 21:10 Temperature Pulse Rate 102 H 104 H 96 H Respiratory 25 H 25 H 25 H Rate Blood Pressure 116/66 107/67 124/83 O2 Sat by Pulse 100 99 100 Oximetry 07/23/19 07/23/19 07/23/19 21:20 21:30 21:40 Temperature Pulse Rate 98 H 98 H 97 H Respiratory 25 H 25 H 25 H Rate Blood Pressure 125/81 131/88 131/87 O2 Sat by Pulse 100 99 100 Oximetry 07/23/19 07/23/19 07/23/19 21:50 22:00 22:10 Temperature Pulse Rate 98 H 95 H 97 H Respiratory 25 H 25 H 25 H Rate Blood Pressure 129/89 131/91 129/87 O2 Sat by Pulse 100 100 100 Oximetry 07/23/19 07/23/19 07/23/19 22:20 22:30 22:40 Temperature Pulse Rate 98 H 98 H 100 H Respiratory 25 H 25 H 25 H Rate Blood Pressure 130/84 129/86 118/96 O2 Sat by Pulse 100 100 100 Oximetry 07/23/19 07/23/19 07/23/19 22:50 23:00 23:10 Temperature Pulse Rate 99 H 97 H 102 H Respiratory 25 H 24 23 Rate Blood Pressure 128/85 125/88 134/100 O2 Sat by Pulse 100 100 100 Oximetry 07/23/19 07/23/19 07/23/19 23:20 23:30 23:40 Temperature Pulse Rate 105 H 105 H 97 H Respiratory 24 22 22 Rate Blood Pressure 128/78 129/93 135/91 O2 Sat by Pulse 99 100 100 Oximetry 07/23/19 07/24/19 07/24/19 23:50 00:00 00:10 Temperature 97.8 F Pulse Rate 97 H 96 H 97 H Respiratory 21 23 25 H Rate Blood Pressure 133/91 134/92 136/91 O2 Sat by Pulse 100 100 100 Oximetry 07/24/19 07/24/19 07/24/19 00:20 00:27 00:30 Temperature Pulse Rate 97 H 98 H 97 H Respiratory 14 21 Rate Blood Pressure 134/94 134/95 134/94 O2 Sat by Pulse 100 100 100 Oximetry 07/24/19 07/24/19 07/24/19 00:40 00:50 01:00 Temperature Pulse Rate 99 H 98 H 97 H Respiratory 11 L 20 22 Rate Blood Pressure 134/95 128/85 125/87 O2 Sat by Pulse 100 100 100 Oximetry 07/24/19 07/24/19 07/24/19 01:10 01:20 01:30 Temperature Pulse Rate 98 H 98 H 97 H Respiratory 23 23 25 H Rate Blood Pressure 117/83 125/82 125/81 O2 Sat by Pulse 100 100 100 Oximetry 07/24/19 07/24/19 07/24/19 01:40 01:50 02:00 Temperature Pulse Rate 99 H 97 H 96 H Respiratory 24 22 21 Rate Blood Pressure 131/79 123/80 127/80 O2 Sat by Pulse 100 100 100 Oximetry 07/24/19 07/24/19 07/24/19 02:10 02:20 02:30 Temperature Pulse Rate 98 H 96 H 97 H Respiratory 25 H 25 H 24 Rate Blood Pressure 118/77 119/79 120/76 O2 Sat by Pulse 100 100 100 Oximetry 07/24/19 07/24/19 07/24/19 02:40 02:50 03:00 Temperature Pulse Rate 96 H 98 H 99 H Respiratory 24 25 H 25 H Rate Blood Pressure 118/76 114/74 110/73 O2 Sat by Pulse 100 100 99 Oximetry 07/24/19 07/24/19 07/24/19 03:10 03:20 03:30 Temperature Pulse Rate 101 H 101 H 98 H Respiratory 25 H 25 H 26 H Rate Blood Pressure 114/65 112/64 111/60 O2 Sat by Pulse 98 98 100 Oximetry 07/24/19 07/24/19 07/24/19 03:40 03:50 04:00 Temperature 98.0 F Pulse Rate 99 H 96 H 97 H Respiratory 26 H 24 25 H Rate Blood Pressure 109/68 108/65 108/65 O2 Sat by Pulse 99 99 100 Oximetry 07/24/19 07/24/19 07/24/19 04:10 04:20 04:23 Temperature Pulse Rate 96 H 98 H 107 H Respiratory 26 H 25 H Rate Blood Pressure 112/66 107/61 106/61 O2 Sat by Pulse 100 99 96 Oximetry 07/24/19 07/24/19 07/24/19 04:30 04:40 04:50 Temperature Pulse Rate 107 H 109 H 106 H Respiratory 23 26 H 22 Rate Blood Pressure 103/60 107/59 103/58 O2 Sat by Pulse 95 91 91 Oximetry 07/24/19 07/24/19 07/24/19 05:00 05:10 05:20 Temperature Pulse Rate 107 H 105 H 104 H Respiratory 25 H 21 22 Rate Blood Pressure 107/48 97/52 101/51 O2 Sat by Pulse 91 91 92 Oximetry 07/24/19 07/24/19 07/24/19 05:30 05:40 05:50 Temperature Pulse Rate 104 H 106 H 101 H Respiratory 20 25 H 25 H Rate Blood Pressure 99/49 93/46 94/50 O2 Sat by Pulse 92 93 93 Oximetry 07/24/19 07/24/19 07/24/19 06:00 06:10 06:20 Temperature Pulse Rate 102 H 101 H 102 H Respiratory 25 H 25 H 25 H Rate Blood Pressure 97/47 103/45 101/42 O2 Sat by Pulse 93 93 94 Oximetry 07/24/19 07/24/19 07/24/19 06:30 06:40 06:50 Temperature Pulse Rate 99 H 104 H 103 H Respiratory 26 H 25 H 25 H Rate Blood Pressure 94/44 103/46 96/47 O2 Sat by Pulse 95 95 96 Oximetry 07/24/19 07/24/19 07/24/19 07:00 07:10 07:20 Temperature Pulse Rate 101 H 102 H 101 H Respiratory 25 H 25 H 26 H Rate Blood Pressure 98/51 96/44 99/49 O2 Sat by Pulse 96 96 98 Oximetry 07/24/19 07/24/19 07/24/19 07:30 07:40 07:50 Temperature Pulse Rate 97 H 92 H 92 H Respiratory 25 H 28 H 25 H Rate Blood Pressure 103/60 109/62 106/66 O2 Sat by Pulse 99 99 100 Oximetry 07/24/19 07/24/19 08:00 08:04 Temperature 98.4 F Pulse Rate 94 H 96 H Respiratory 25 H Rate Blood Pressure 110/71 110/71 O2 Sat by Pulse 100 10 L Oximetry - General physical appearance no distress, no pain - Respiratory normal respiratory effort - Abdomen soft, not distended, not guarding, not rigid, other (AbThera in place with serosang drainage.) - Labs 07/24/19 05:37 07/24/19 05:37 Diabetes panel 07/23/19 07/23/19 07/24/19 Range/Units 09:03 Unknown 05:37 Sodium 136 L 140 139 (137-145) mmol/L Potassium 7.1 H* 5.6 H D 4.7 (3.6-5.0) mmol/L Chloride 100.1 99.4 100.4 (98-107) mmol/L Carbon Dioxide 20 L 23 26 (22-30) mmol/L BUN 49 H 29 H 29 H (9-20) mg/dL Creatinine 2.4 H 1.4 1.2 (0.8-1.5) mg/dL Glucose 67 L 128 H 120 H (75-100) mg/dL Calcium 7.7 L 7.4 L 7.4 L (8.4-10.2) mg/dL AST 107 H (5-40) units/L ALT 45 (7-56) units/L Alkaline Phosphatase 49 (35-129) units/L Total Protein 5.3 L (6.3-8.2) g/dL Albumin 2.5 L (3.9-5) g/dL Thyroid panel 07/23/19 Range/Units 13:06 TSH 0.888 (0.270-4.200) mlU/mL Calcium panel 07/23/19 07/23/19 07/24/19 Range/Units 09:03 Unknown 05:37 Calcium 7.7 L 7.4 L 7.4 L (8.4-10.2) mg/dL Phosphorus 2.30 L D (2.5-4.5) mg/dL Albumin 2.5 L (3.9-5) g/dL Pituitary panel 07/23/19 07/23/19 07/23/19 Range/Units 09:03 13:06 Unknown Sodium 136 L 140 (137-145) mmol/L Potassium 7.1 H* 5.6 H D (3.6-5.0) mmol/L Chloride 100.1 99.4 (98-107) mmol/L Carbon Dioxide 20 L 23 (22-30) mmol/L BUN 49 H 29 H (9-20) mg/dL Creatinine 2.4 H 1.4 (0.8-1.5) mg/dL Glucose 67 L 128 H (75-100) mg/dL Calcium 7.7 L 7.4 L (8.4-10.2) mg/dL TSH 0.888 (0.270-4.200) mlU/mL 07/24/19 Range/Units 05:37 Sodium 139 (137-145) mmol/L Potassium 4.7 (3.6-5.0) mmol/L Chloride 100.4 (98-107) mmol/L Carbon Dioxide 26 (22-30) mmol/L BUN 29 H (9-20) mg/dL Creatinine 1.2 (0.8-1.5) mg/dL Glucose 120 H (75-100) mg/dL Calcium 7.4 L (8.4-10.2) mg/dL TSH (0.270-4.200) mlU/mL Adrenal panel 07/23/19 07/23/19 07/24/19 Range/Units 09:03 Unknown 05:37 Sodium 136 L 140 139 (137-145) mmol/L Potassium 7.1 H* 5.6 H D 4.7 (3.6-5.0) mmol/L Chloride 100.1 99.4 100.4 (98-107) mmol/L Carbon Dioxide 20 L 23 26 (22-30) mmol/L BUN 49 H 29 H 29 H (9-20) mg/dL Creatinine 2.4 H 1.4 1.2 (0.8-1.5) mg/dL Glucose 67 L 128 H 120 H (75-100) mg/dL Calcium 7.7 L 7.4 L 7.4 L (8.4-10.2) mg/dL Total Bilirubin 1.40 H (0.1-1.2) mg/dL AST 107 H (5-40) units/L ALT 45 (7-56) units/L Alkaline Phosphatase 49 (35-129) units/L Total Protein 5.3 L (6.3-8.2) g/dL Albumin 2.5 L (3.9-5) g/dL
--- NOTE | 2019-07-24 09:30 | Progress Note ---
Assessment and Plan 1. Acute kidney injury: Vasomotor [place] in the setting of volume depletion. Patient was dialyzed yesterday due to hyperkalemia. Continue IV fluids. Monitor renal function. Avoid nephrotoxic agents. Meds dosage based on GFR. 2. FEN: Hyperkalemia, improved after hemodialysis. Metabolic acidosis, on bicarbonate drip. Hyponatremia, improved. Replete Phos. Monitor lytes. 3. Hypotension: Currently on Vasopressin and Phenylephrine. IV fluid bolus. 4. Ischemic Colon: S/p Ex Lap and partial Colon Resection. Followed by . 5. Respiratory failure: On vent. 6. Sepsis: Cultures negative so far. Leukocytosis has improved. 7. Sinus tachycardia: Improved. Examination: General appearance: well-developed, well-nourished, appears stated age, obese, i ntubated, on vent HEENT: ATNC, [place] Neck: neck supple, trachea midline Respiratory: Clear to Ascultation Heart: regular, S1S2, no murmur Gastrointestinal: obese, wound vac noted Integumentary: no rash, warm and dry : Mcpherson catheter Neurologic: moves extremities with stimuli Musculoskeletal: no deformity Hemodialysis access: R IJ temp catheter Subjective Date of service: 07/24/19 Principal diagnosis: Respiratory Failure Interval history: Patient was seen and examined at the bedside. Objective - Vital Signs Vital signs: Vital Signs - 12hr 07/23/19 07/23/19 07/23/19 21:40 21:50 22:00 Temperature Pulse Rate 97 H 98 H 95 H Respiratory 25 H 25 H 25 H Rate Blood Pressure 131/87 129/89 131/91 O2 Sat by Pulse 100 100 100 Oximetry 07/23/19 07/23/19 07/23/19 22:10 22:20 22:30 Temperature Pulse Rate 97 H 98 H 98 H Respiratory 25 H 25 H 25 H Rate Blood Pressure 129/87 130/84 129/86 O2 Sat by Pulse 100 100 100 Oximetry 07/23/19 07/23/19 07/23/19 22:40 22:50 23:00 Temperature Pulse Rate 100 H 99 H 97 H Respiratory 25 H 25 H 24 Rate Blood Pressure 118/96 128/85 125/88 O2 Sat by Pulse 100 100 100 Oximetry 07/23/19 07/23/19 07/23/19 23:10 23:20 23:30 Temperature Pulse Rate 102 H 105 H 105 H Respiratory 23 24 22 Rate Blood Pressure 134/100 128/78 129/93 O2 Sat by Pulse 100 99 100 Oximetry 07/23/19 07/23/19 07/24/19 23:40 23:50 00:00 Temperature 97.8 F Pulse Rate 97 H 97 H 96 H Respiratory 22 21 23 Rate Blood Pressure 135/91 133/91 134/92 O2 Sat by Pulse 100 100 100 Oximetry 07/24/19 07/24/19 07/24/19 00:10 00:20 00:27 Temperature Pulse Rate 97 H 97 H 98 H Respiratory 25 H 14 Rate Blood Pressure 136/91 134/94 134/95 O2 Sat by Pulse 100 100 100 Oximetry 07/24/19 07/24/19 07/24/19 00:30 00:40 00:50 Temperature Pulse Rate 97 H 99 H 98 H Respiratory 21 11 L 20 Rate Blood Pressure 134/94 134/95 128/85 O2 Sat by Pulse 100 100 100 Oximetry 07/24/19 07/24/19 07/24/19 01:00 01:10 01:20 Temperature Pulse Rate 97 H 98 H 98 H Respiratory 22 23 23 Rate Blood Pressure 125/87 117/83 125/82 O2 Sat by Pulse 100 100 100 Oximetry 07/24/19 07/24/19 07/24/19 01:30 01:40 01:50 Temperature Pulse Rate 97 H 99 H 97 H Respiratory 25 H 24 22 Rate Blood Pressure 125/81 131/79 123/80 O2 Sat by Pulse 100 100 100 Oximetry 07/24/19 07/24/19 07/24/19 02:00 02:10 02:20 Temperature Pulse Rate 96 H 98 H 96 H Respiratory 21 25 H 25 H Rate Blood Pressure 127/80 118/77 119/79 O2 Sat by Pulse 100 100 100 Oximetry 07/24/19 07/24/19 07/24/19 02:30 02:40 02:50 Temperature Pulse Rate 97 H 96 H 98 H Respiratory 24 24 25 H Rate Blood Pressure 120/76 118/76 114/74 O2 Sat by Pulse 100 100 100 Oximetry 07/24/19 07/24/19 07/24/19 03:00 03:10 03:20 Temperature Pulse Rate 99 H 101 H 101 H Respiratory 25 H 25 H 25 H Rate Blood Pressure 110/73 114/65 112/64 O2 Sat by Pulse 99 98 98 Oximetry 07/24/19 07/24/19 07/24/19 03:30 03:40 03:50 Temperature Pulse Rate 98 H 99 H 96 H Respiratory 26 H 26 H 24 Rate Blood Pressure 111/60 109/68 108/65 O2 Sat by Pulse 100 99 99 Oximetry 07/24/19 07/24/19 07/24/19 04:00 04:10 04:20 Temperature 98.0 F Pulse Rate 97 H 96 H 98 H Respiratory 25 H 26 H 25 H Rate Blood Pressure 108/65 112/66 107/61 O2 Sat by Pulse 100 100 99 Oximetry 07/24/19 07/24/19 07/24/19 04:23 04:30 04:40 Temperature Pulse Rate 107 H 107 H 109 H Respiratory 23 26 H Rate Blood Pressure 106/61 103/60 107/59 O2 Sat by Pulse 96 95 91 Oximetry 07/24/19 07/24/19 07/24/19 04:50 05:00 05:10 Temperature Pulse Rate 106 H 107 H 105 H Respiratory 22 25 H 21 Rate Blood Pressure 103/58 107/48 97/52 O2 Sat by Pulse 91 91 91 Oximetry 07/24/19 07/24/19 07/24/19 05:20 05:30 05:40 Temperature Pulse Rate 104 H 104 H 106 H Respiratory 22 20 25 H Rate Blood Pressure 101/51 99/49 93/46 O2 Sat by Pulse 92 92 93 Oximetry 07/24/19 07/24/19 07/24/19 05:50 06:00 06:10 Temperature Pulse Rate 101 H 102 H 101 H Respiratory 25 H 25 H 25 H Rate Blood Pressure 94/50 97/47 103/45 O2 Sat by Pulse 93 93 93 Oximetry 07/24/19 07/24/19 07/24/19 06:20 06:30 06:40 Temperature Pulse Rate 102 H 99 H 104 H Respiratory 25 H 26 H 25 H Rate Blood Pressure 101/42 94/44 103/46 O2 Sat by Pulse 94 95 95 Oximetry 07/24/19 07/24/19 07/24/19 06:50 07:00 07:10 Temperature Pulse Rate 103 H 101 H 102 H Respiratory 25 H 25 H 25 H Rate Blood Pressure 96/47 98/51 96/44 O2 Sat by Pulse 96 96 96 Oximetry 07/24/19 07/24/19 07/24/19 07:20 07:30 07:40 Temperature Pulse Rate 101 H 97 H 92 H Respiratory 26 H 25 H 28 H Rate Blood Pressure 99/49 103/60 109/62 O2 Sat by Pulse 98 99 99 Oximetry 07/24/19 07/24/19 07/24/19 07:50 08:00 08:04 Temperature 98.4 F Pulse Rate 92 H 94 H 96 H Respiratory 25 H 25 H Rate Blood Pressure 106/66 110/71 110/71 O2 Sat by Pulse 100 100 10 L Oximetry - Lab 07/24/19 05:37 07/24/19 05:37 Most recent lab results ABG pH 7.435 pH Units (7.350-7.450) 07/24/19 00:40 ABG pCO2 36.0 mm Hg 07/24/19 00:40 ABG pO2 151.3 mm Hg (80.0-90.0) H 07/24/19 00:40 ABG HCO3 23.6 mmol/L (20.0-26.0) 07/24/19 00:40 ABG O2 Saturation 98.9 % (95.0-99.0) 07/24/19 00:40 Calcium 7.4 mg/dL (8.4-10.2) L 07/24/19 05:37 Phosphorus 2.30 mg/dL (2.5-4.5) L D 07/24/19 05:37 Magnesium 2.20 mg/dL (1.7-2.3) 07/24/19 05:37 Medications & Allergies - Medications Allergies/Adverse Reactions: Allergies No Known Allergies Allergy (Verified 10/20/15 03:43) Home Medications: Home Medications Medication Instructions Recorded Confirmed Last Taken Type Benztropine [Cogentin] 0.5 mg PO QHS 05/17/19 06/05/19 Unknown History Divalproex ER [Depakote ER] 500 mg PO BID 05/17/19 06/05/19 Unknown History clonazePAM [KlonoPIN] 2 mg PO BID 05/17/19 06/05/19 Unknown History traZODone [Desyrel] 100 mg PO HS 06/05/19 06/05/19 Unknown History Acetaminophen [Acetaminophen TAB] 650 mg PO Q4H PRN tablet 06/06/19 Unknown Rx Divalproex ER [Depakote ER] 500 mg PO BID tablet 06/06/19 Unknown Rx Lactulose 10 gm PO DAILY PRN #150 ml 07/21/19 Unknown Rx Ondansetron [Zofran Odt] 4 mg PO Q8HR PRN #14 tab.rapdis 07/21/19 Unknown Rx Sodium Phosphate,[place]-Dibasic 118 ml RC ONCE #1 enema 07/21/19 Unknown Rx [Fleet Enema] Active Medications: Generic Name Dose Route Start Last Admin Trade Name Freq PRN Reason Stop Dose Admin Acetaminophen 650 mg 07/23/19 02:48 Tylenol MT Q4H PRN Fever >100.5 Albumin Human 25 gm 07/23/19 13:11 Alburx 25% (Albumin) IV DIOR PRN Hypotension Bisacodyl 10 mg 07/21/19 22:25 Dulcolax PO QDAY PRN Constipation Enoxaparin Sodium 30 mg 07/22/19 22:00 07/23/19 23:35 Lovenox SUB-Q 30 mg QDAY@2200 STEPHEN Administration Famotidine 20 mg 07/24/19 10:00 Pepcid IV BID STEPHEN Sodium Bicarbonate 150 meq/ 1,150 mls @ 125 mls/hr 07/22/19 22:00 07/24/19 07:25 Dextrose IV 125 mls/hr DIRECT STEPHNE Administration Phenylephrine HCl 100 mg/ 100 mls @ 3 mls/hr 07/23/19 02:45 07/24/19 08:00 Sodium Chloride IV 80 mcg/min TITR STEPHEN 4.8 mls/hr Titration Protocol 50 MCG/MIN Vasopressin 20 unit/ Sodium 101 mls @ 9.09 mls/hr 07/23/19 10:00 07/24/19 08:14 Chloride IV 0.03 units/min TITR STEPHEN 9.09 mls/hr Administration Protocol 0.03 UNITS/MIN Sodium Chloride 100 mls @ 999 mls/hr 07/23/19 10:40 Nacl 0.9% IV DIOR PRN Hypotension Norepinephrine 8 mg/ Sodium 250 mls @ 3.75 mls/hr 07/23/19 12:00 07/23/19 13:08 Chloride IV 0 mcg/min TITR STEPHEN 0 mls/hr Titration Protocol 2 MCG/MIN Fentanyl Citrate 2,000 mcg in 100 mls @ 5.557 mls/hr 07/23/19 12:00 07/24/19 05:50 Fentanyl Drip Premix IV 1 mcg/kg/hr TITR STEPHEN 5.557 mls/hr Administration Protocol 1 MCG/KG/HR Cefepime HCl 2 gm in 100 mls @ 200 mls/hr 07/23/19 16:00 07/24/19 05:43 Maxipime/Ns 2 Gm/100 Ml IV 200 mls/hr Q12H STEPHEN Administration Protocol Metronidazole 500 mg in 100 mls @ 100 mls/hr 07/23/19 16:00 07/24/19 05:43 Flagyl 500 Mg/100 Ml IV 100 mls/hr Q8HR STEPHEN Administration Protocol Valproate Sodium 500 mg/ 105 mls @ 100 mls/hr 07/24/19 10:00 Sodium Chloride IV Q12HR STEPHEN Ondansetron HCl 4 mg 07/21/19 22:25 07/22/19 01:07 Zofran IV 4 mg Q8H PRN Administration Nausea And Vomiting
[2019-07-24] MEDS ORDERED: SODIUM CHLORIDE 0.9% 1000 ML 1,000 ML IV ONE (10:00)
[2019-07-24] MEDS: FAMOTIDINE 20 MG/2 ML INJ IV SCH ×2 (10:30→21:19)
[2019-07-24] MEDS: VALPROATE SODIUM 500 MG in SODIUM CHLORIDE 0.9% 100 ML IV SCH ×2 (10:39→21:19)
[2019-07-24] MEDS: SODIUM CHLORIDE 0.9% 1000 ML 1,000 ML IV SCH (10:40)
[2019-07-24] MEDS ORDERED: SODIUM PHOSPHATE 30 MMOL in SODIUM CHLORIDE 0.9% 500 ML 500 ML IV ONE (11:00)
--- NOTE | 2019-07-24 11:11 | Operative Report ---
PREOPERATIVE DIAGNOSIS: Rule out ischemic bowel. POSTOPERATIVE DIAGNOSIS: Ischemic necrosis of transverse colon. ATTENDING PHYSICIAN: Nathan Tilley M.D. FORENSIC PHOTOGRAPHER: Dr. Goodwin. ANESTHESIA: General. ESTIMATED BLOOD LOSS: Less than 50 mL. FINDINGS: The patient had a markedly distended large intestine with multiple focal areas of ischemic necrosis on the transverse colon. No adhesions were found underneath the midline incision. Rest of the bowel was normal, serous fluid was found in the abdomen. There was no evidence of any perforation. SPECIMENS: Portion of transverse colon. DRAINS: ABThera. COMPLICATIONS: None. DISPOSITION: Stable, transferred to ICU. INDICATIONS: This is a 19-year-old male who initially presented to the hospital with complaints of abdominal pain. The patient's history is significant for Down syndrome. The patient lives in a retirement, the patient was initially assessed by the medical team to have severe constipation and was treated accordingly. However, approximately 24 hours after admission, the patient began to have a decline in his overall condition. General Surgery was consulted. The patient was found to have multisystem organ dysfunction and felt to be in need for surgery as we had no other good cause for his decline. The patient at this point was minimally responsive and unable to give history. We felt that the dilated colon was most likely the cause of his decline and exploration was warranted. Procedure, risks, benefits were explained to mother. Risks included but were not limited to infection, bleeding, pain, injury to surrounding structures, possible need for further procedures and possible . Mother understood and consented. Prior to surgery, the patient had to be dialyzed. The patient had to be intubated and Vas-Cath had to be placed. Therefore, the patient was delayed in getting to the operating room due to the crucial need of these other items. OPERATIVE NOTE: The patient was brought down from ICU to the operating room and placed on table in supine position. After adequate general anesthesia was established, the patient was prepped and draped in the usual sterile fashion. SCDs were in place. The patient was already on antibiotics. Timeout was called. We began by using his old midline incision. This was opened with electrocautery and then I extended the incision superiorly to a portion of the abdomen where there was no previous incision to allow for easy entry into the abdominal cavity, we entered the peritoneal cavity safely. It turned out that there were no adhesions underneath the midline, perhaps this was all dissected during his previous colostomy reversal. We entered the peritoneal cavity safely. We examined the abdomen. We found a dilated colon. We immediately identified multiple areas of ischemic necrosis without perforation in the transverse colon. The rest of the colon other than being dilated, did not appear to be compromised, small intestine was completely viable. There was no purulent fluid or feculent fluid in the abdomen, just serous. Our plan was to have damage control surgery, so we planned to excise the ischemic segment of transverse colon, leave him in discontinuity and return at a later date once he is fully resuscitated. Dr. Goodwin was in agreement with the plan. Using SALMA staplers, we excised a portion of transverse colon that had the ischemic areas. Prior to doing this, I thought it would be very helpful to decompress the colon to help with his overall resuscitation and to decrease the pressure on the lungs and kidneys. We toweled off the area. I made a small puncture wound through one of the ischemic segments. We decompressed the large amount of air. I had placed a [id number] stitch in order to control that hole in case there was drainage. We had hardly any liquid drainage. We mainly decompressed a lot of air, which helped tremendously. His peak airway pressures came down significantly after we started the case and then decompress the colon. Urine output improved. Overall, he looks better. Once we had decompressed the colon, we then excised that segment. The mesentery was clamped and divided into segments, 3-0 silk was used to ligate each end of the clamped segments. Once the specimen was completely divided, it was passed off the table in sterile fashion. We thoroughly irrigated out the abdomen. We had good hemostasis where we had excised the segment of bowel. The stapled ends were completely intact without any leakage. Everything looked very good. At this point, an ABThera was placed and we had an excellent seal. The patient tolerated the procedure well. There were no complications. The patient is stable, transported to ICU. One count was incorrect. It turned out in one of the retractor sets we had extra pieces per the count at the end of the case. Per the protocol, x-ray was done in ICU and there were no abnormalities. JOB# [id number] ISRA/SERGO ALVAREZ
--- NOTE | 2019-07-24 12:09 | Progress Note ---
Assessment and Plan S/p ex-lap with partial colon resection yesterday. HR improved. Cont present cardiac management. Await echo. Thyroid profile WNL. DDimer is noted to be elevated - pt too unstable for V/Q scan at this time. The patient has been seen in conjunction with Dr. Gutiérrez who agrees with the assessment and plan of care. - Patient Problems (1) Acute respiratory failure Current Visit: Yes Status: Acute (2) Colon distention Current Visit: Yes Status: Acute (3) Constipation Current Visit: Yes Status: Acute (4) Intractable vomiting with nausea Current Visit: Yes Status: Acute (5) Sinus tachycardia Current Visit: Yes Status: Acute (6) Hypotension Current Visit: Yes Status: Acute (7) Acute renal failure Current Visit: Yes Status: Acute (8) Hyperkalemia Current Visit: Yes Status: Acute (9) Leukocytosis Current Visit: Yes Status: Acute (10) Lactic acidosis Current Visit: Yes Status: Acute (11) Elevated d-dimer Current Visit: Yes Status: Acute Subjective Date of service: 07/24/19 Principal diagnosis: Respiratory Failure Interval history: pt remains intubated, hypotensive requiring multiple vasopressors, in SR HR 100s on telemetry. no family at bedside. Objective Last Vital Signs Temp 98.4 F 07/24/19 08:00 Pulse 96 H 07/24/19 11:10 Resp 25 H 07/24/19 11:10 BP 119/68 07/24/19 11:10 Pulse Ox 100 07/24/19 11:10 - Physical Examination General: Other (intubated) Neck: Positive: neck supple, trachea midline Cardiac: Positive: Reg Rate and Rhythm, S1/S2 Lungs: Positive: Decreased Breath Sounds, Ventilated Respirations Neuro: Positive: Other (intubated) Skin: Negative: Rash Extremities: Absent: edema - Labs and Meds Cardiac Enzymes 07/24/19 Range/Units 05:37 AST 107 H (5-40) units/L CBC 07/24/19 Range/Units 05:37 WBC 10.6 (4.5-11.0) K/mm3 RBC 4.30 (3.65-5.03) M/mm3 Hgb 13.5 (11.8-15.2) gm/dl Hct 40.3 (35.5-45.6) % Plt Count 89 L (140-440) K/mm3 Comprehensive Metabolic Panel 07/23/19 07/24/19 Range/Units Unknown 05:37 Sodium 140 139 (137-145) mmol/L Potassium 5.6 H D 4.7 (3.6-5.0) mmol/L Chloride 99.4 100.4 (98-107) mmol/L Carbon Dioxide 23 26 (22-30) mmol/L BUN 29 H 29 H (9-20) mg/dL Creatinine 1.4 1.2 (0.8-1.5) mg/dL Glucose 128 H 120 H (75-100) mg/dL Calcium 7.4 L 7.4 L (8.4-10.2) mg/dL AST 107 H (5-40) units/L ALT 45 (7-56) units/L Alkaline Phosphatase 49 (35-129) units/L Total Protein 5.3 L (6.3-8.2) g/dL Albumin 2.5 L (3.9-5) g/dL - Imaging and Cardiology EKG: report reviewed, image reviewed Stress echo: report reviewed, image reviewed Echo: pending - EKG Sinus rhythms and dysrhythmias: sinus tachycardia
--- NOTE | 2019-07-24 15:45 | Progress Note ---
Assessment and Plan Cultures: 07/21/2019 blood culture: No growth A/P: 19-year-old male with Down syndrome admitted with severe constipation and fecal impaction: 1) Septic shock: intra-abdominal source. s/p ex-lap on 07/23/2019, findings of multiple distinct areas of necrosis on transverse colon. rest of intestines were normal. Gen. Surg following. 2) Acute renal failure: Now requiring dialysis. Renally dose abx. 3) Fecal impaction, colonic distention and shock: s/p ex-lap on 07/23/2019, findings of multiple distinct areas of necrosis on transverse colon. rest of intestines were normal. Gen. Surg following. 4) Acute respiratory failure: Intubated, on vent. Recs: Continue IV Cefepime, Flagyl Given shock and necrotic colon, will also add fungal coverage with IV Fluconaz ole Guarded prognosis Meghan Williamson MD, FACP [facility] C: [phone] O: [phone] F: [phone] Subjective Date of service: 07/24/19 Principal diagnosis: Respiratory Failure Interval history: Remains intubated, sedated. On 2 pressors. Mother at bedside. Dsicussed with RN. Objective - Exam Narrative Exam: Physical Exam: Constitutional: sedated, intubated Head, Ears, Nose: Normocephalic, atraumatic. External ears, nose normal Eyes: Conjunctivae/corneas clear. No icterus. No ptosis. Neck: intubated Oral: intubated Cardiovascular: S1, S2 normal. Respiratory: Good air entry, clear to auscultation bilaterally GI: slightly distended, WoundVAC +, bowel sounds absent Musculoskeletal: No pedal edema, no cyanosis. Femoral line present, dialysis catheter present Skin: No rash or abscess Hem/Lymphatic: No palpable cervical or supraclavicular nodes. No lymphangitis Psych: no agitation Neurological: sedated, intubated, on vent - Constitutional Vitals: Vital Signs Temp Pulse Resp BP Pulse Ox 98.0 F 102 H 21 107/62 99 07/24/19 12:00 07/24/19 14:50 07/24/19 14:50 07/24/19 14:50 07/24/19 14:50 Temperature -Last 24 Hours Temperature 98.0 F Temperature 98.4 F Temperature 98.4 F Temperature 98.0 F Temperature 97.8 F Temperature 97.3 F Temperature 97.2 F Temperature 97 F Temperature 98.5 F Temperature 98.5 F - Labs CBC & Chem 7: 07/24/19 05:37 07/24/19 05:37 Labs: Abnormal lab results 07/23/19 07/23/19 07/23/19 Range/Units 15:56 17:35 Unknown Plt Count (140-440) K/mm3 Lymphocytes % (Manual) (13.4-35.0) % Lymphocytes # (Manual) (1.2-5.4) K/mm3 ABG pO2 (80.0-90.0) mm Hg Potassium (3.6-5.0) mmol/L BUN (9-20) mg/dL Glucose (75-100) mg/dL POC Glucose (70-105) Lactic Acid 3.00 H* 4.10 H* 4.90 H* (0.7-2.0) mmol/L Calcium (8.4-10.2) mg/dL Phosphorus (2.5-4.5) mg/dL Total Bilirubin (0.1-1.2) mg/dL AST (5-40) units/L Total Protein (6.3-8.2) g/dL Albumin (3.9-5) g/dL 07/23/19 07/24/19 07/24/19 Range/Units Unknown 00:05 00:40 Plt Count (140-440) K/mm3 Lymphocytes % (Manual) (13.4-35.0) % Lymphocytes # (Manual) (1.2-5.4) K/mm3 ABG pO2 151.3 H (80.0-90.0) mm Hg Potassium 5.6 H D (3.6-5.0) mmol/L BUN 29 H (9-20) mg/dL Glucose 128 H (75-100) mg/dL POC Glucose 118 H (70-105) Lactic Acid (0.7-2.0) mmol/L Calcium 7.4 L (8.4-10.2) mg/dL Phosphorus (2.5-4.5) mg/dL Total Bilirubin (0.1-1.2) mg/dL AST (5-40) units/L Total Protein (6.3-8.2) g/dL Albumin (3.9-5) g/dL 07/24/19 07/24/19 07/24/19 Range/Units 04:00 05:37 05:37 Plt Count 89 L (140-440) K/mm3 Lymphocytes % (Manual) 5.0 L (13.4-35.0) % Lymphocytes # (Manual) 0.5 L (1.2-5.4) K/mm3 ABG pO2 (80.0-90.0) mm Hg Potassium (3.6-5.0) mmol/L BUN 29 H (9-20) mg/dL Glucose 120 H (75-100) mg/dL POC Glucose 123 H (70-105) Lactic Acid (0.7-2.0) mmol/L Calcium 7.4 L (8.4-10.2) mg/dL Phosphorus 2.30 L D (2.5-4.5) mg/dL Total Bilirubin 1.40 H (0.1-1.2) mg/dL AST 107 H (5-40) units/L Total Protein 5.3 L (6.3-8.2) g/dL Albumin 2.5 L (3.9-5) g/dL 07/24/19 07/24/19 Range/Units 05:37 10:18 Plt Count (140-440) K/mm3 Lymphocytes % (Manual) (13.4-35.0) % Lymphocytes # (Manual) (1.2-5.4) K/mm3 ABG pO2 (80.0-90.0) mm Hg Potassium (3.6-5.0) mmol/L BUN (9-20) mg/dL Glucose (75-100) mg/dL POC Glucose 130 H (70-105) Lactic Acid 3.90 H* (0.7-2.0) mmol/L Calcium (8.4-10.2) mg/dL Phosphorus (2.5-4.5) mg/dL Total Bilirubin (0.1-1.2) mg/dL AST (5-40) units/L Total Protein (6.3-8.2) g/dL Albumin (3.9-5) g/dL
[2019-07-24] MEDS ORDERED: FLUCONAZOLE 400 MG 200 ML IV ONE (16:30)
--- NOTE | 2019-07-24 19:15 | Progress Note ---
Assessment and Plan Assessment and plan: Patient is 19 yo with Downs syndrome from [facility]. he initially presented with abdominal pain, nausea and vomiting. he was seen and examined in ED. CT Abd showed severe constipation. he was given Fleets enema, admitted. His BMP was WNL. By next day Cr was 2.2 and he had hyperkalemia of 5.3. Repeat hrs later showed worse Cr 2.2 and Potassium went up to 6.0. and he had developed shortness of breath, desaturation so was transferred to ICU. Acute resp failure now intubated, extubated Patient became short of breath, desaturated while om medical floor, transferred to ICU POD #1 [employer] Draftsperson following [place] due to ATN Nephrology following Possible sepsis vs SIRS Consulted and disucssed with ID Physician Blood cultures Started on empiric Abx Fever of 100.1 Blood cultures Leukocytosis Ischemic Bowel, s/p ex lap and resection Surgeon following lactic acidosis Secondary to ischemic Bowel Hyperkalemia Gave calcium Carbonate Insulin/Dextrose discussed with Dr. West severe constipation resolved, now has diarrhea due to laxatives Severe diarrhea due to laxatives after presenting with constipation Sinus tachycardia due to dehydration Downs syndrome supportive care full code status Prognosis guarded The high probability of a clinically significant, sudden or life threatening deterioration of the [renal, GI,] system(s) required my full and direct attention, intervention and personal management. The aggregate critical care time was [35] minutes. This time is in addition to time spent performing reported procedures but includes the following: [x] Data Review and interpretation [x] Patient assessment and monitoring of vital signs [x] Documentation [x] Medication orders and management History Interval history: Patient seen and examined, remains intubated and on pressors. No adverse event reported Hospitalist Physical - Physical exam Narrative exam: Gen: Ill looking, obese, intubated HEENT: Normocephalic, atraumatic Neck: supple, no JVD Heart: S1 and S2 reg, no murmurs, rubs or gallop Lungs: bilateral crackles, no wheeze Abd: soft, non tender,Wound Vac in place surgical wound not closed yet non distended, normal BS, Ext: No edema, no clubbing, no cyanosis Neuro: Awake, alert, oriented X 3, no focal neurological signs,moves all ext - Constitutional Vitals: Temp Pulse Resp BP Pulse Ox 98.6 F 84 25 H 128/85 100 07/24/19 16:00 07/24/19 18:37 07/24/19 18:20 07/24/19 18:37 07/24/19 18:37 General appearance: Present: other (intubated) Results - Labs CBC & Chem 7: 07/25/19 04:45 07/25/19 04:45 Labs: Laboratory Last Values WBC 10.6 K/mm3 (4.5-11.0) 07/24/19 05:37 RBC 4.30 M/mm3 (3.65-5.03) 07/24/19 05:37 Hgb 13.5 gm/dl (11.8-15.2) 07/24/19 05:37 Hct 40.3 % (35.5-45.6) 07/24/19 05:37 MCV 94 fl (84-94) 07/24/19 05:37 MCH 32 pg (28-32) 07/24/19 05:37 MCHC 34 % (32-34) 07/24/19 05:37 RDW 15.1 % (13.2-15.2) 07/24/19 05:37 Plt Count 89 K/mm3 (140-440) L 07/24/19 05:37 Lymph % (Auto) 7.2 % (13.4-35.0) L 07/21/19 19:02 [place] % (Auto) Newspaper Columnist 07/23/19 02:50 Eos % (Auto) 0.1 % (0.0-4.3) 07/21/19 19:02 Baso % (Auto) 0.3 % (0.0-1.8) 07/21/19 19:02 Lymph # 0.9 K/mm3 (1.2-5.4) L 07/21/19 19:02 [place] # 1.2 K/mm3 (0.0-0.8) H 07/21/19 19:02 Eos # 0.0 K/mm3 (0.0-0.4) 07/21/19 19:02 Baso # 0.0 K/mm3 (0.0-0.1) 07/21/19 19:02 Add Manual Diff Complete 07/24/19 05:37 Total Counted 100 07/24/19 05:37 Seg Neutrophils % 82.8 % (40.0-70.0) H 07/21/19 19:02 Seg Neuts % (Manual) 59.0 % (40.0-70.0) 07/24/19 05:37 Band Neutrophils % 25.0 % 07/24/19 05:37 Lymphocytes % (Manual) 5.0 % (13.4-35.0) L 07/24/19 05:37 Reactive Lymphs % (Man) 1.0 % 07/24/19 05:37 Monocytes % (Manual) 7.0 % (0.0-7.3) 07/24/19 05:37 Eosinophils % (Manual) 0 % (0.0-4.3) 07/24/19 05:37 Basophils % (Manual) 0 % (0.0-1.8) 07/24/19 05:37 Metamyelocytes % 3.0 % 07/24/19 05:37 Myelocytes % 0 % 07/24/19 05:37 Promyelocytes % 0 % 07/24/19 05:37 Blast Cells % 0 % 07/24/19 05:37 Nucleated RBC % Not Reportable 07/24/19 05:37 Seg Neutrophils # 10.0 K/mm3 (1.8-7.7) H 07/21/19 19:02 Seg Neutrophils # Man 6.3 K/mm3 (1.8-7.7) 07/24/19 05:37 Band Neutrophils # 2.7 K/mm3 07/24/19 05:37 Lymphocytes # (Manual) 0.5 K/mm3 (1.2-5.4) L 07/24/19 05:37 Abs React Lymphs (Man) 0.1 K/mm3 07/24/19 05:37 Monocytes # (Manual) 0.7 K/mm3 (0.0-0.8) 07/24/19 05:37 Eosinophils # (Manual) 0.0 K/mm3 (0.0-0.4) 07/24/19 05:37 Basophils # (Manual) 0.0 K/mm3 (0.0-0.1) 07/24/19 05:37 Metamyelocytes # 0.3 K/mm3 07/24/19 05:37 Myelocytes # 0.0 K/mm3 07/24/19 05:37 Promyelocytes # 0.0 K/mm3 07/24/19 05:37 Blast Cells # 0.0 K/mm3 07/24/19 05:37 WBC Morphology Not Reportable 07/24/19 05:37 Hypersegmented Neuts Not Reportable 07/24/19 05:37 Hyposegmented Neuts Not Reportable 07/24/19 05:37 Hypogranular Neuts Not Reportable 07/24/19 05:37 Smudge Cells Not Reportable 07/24/19 05:37 Toxic Granulation Not Reportable 07/24/19 05:37 Toxic Vacuolation Few 07/24/19 05:37 Dohle Bodies Not Reportable 07/24/19 05:37 Pelger-Huet Anomaly Not Reportable 07/24/19 05:37 Alea Rods Not Reportable 07/24/19 05:37 Platelet Estimate Consistent w auto 07/24/19 05:37 Clumped Platelets Not Reportable 07/24/19 05:37 Plt Clumps, EDTA Not Reportable 07/24/19 05:37 Large Platelets Few 07/24/19 05:37 Giant Platelets Not Reportable 07/24/19 05:37 Platelet Satelliting Not Reportable 07/24/19 05:37 Plt Morphology Comment Not Reportable 07/24/19 05:37 RBC Morphology Not Reportable 07/24/19 05:37 Dimorphic RBCs Not Reportable 07/24/19 05:37 Polychromasia Not Reportable 07/24/19 05:37 Hypochromasia Not Reportable 07/24/19 05:37 Poikilocytosis Not Reportable 07/24/19 05:37 Anisocytosis 1+ 07/24/19 05:37 Microcytosis Not Reportable 07/24/19 05:37 Macrocytosis Not Reportable 07/24/19 05:37 Spherocytes Not Reportable 07/24/19 05:37 Pappenheimer Bodies Not Reportable 07/24/19 05:37 Sickle Cells Not Reportable 07/24/19 05:37 Target Cells Not Reportable 07/24/19 05:37 Tear Drop Cells Not Reportable 07/24/19 05:37 Ovalocytes Not Reportable 07/24/19 05:37 Helmet Cells Not Reportable 07/24/19 05:37 Woodard-Staunton Bodies Not Reportable 07/24/19 05:37 [place] Rings Not Reportable 07/24/19 05:37 Kaylyn Cells Not Reportable 07/24/19 05:37 Bite Cells Not Reportable 07/24/19 05:37 Crenated Cell Not Reportable 07/24/19 05:37 Elliptocytes Not Reportable 07/24/19 05:37 Acanthocytes (Spur) Not Reportable 07/24/19 05:37 Rouleaux Not Reportable 07/24/19 05:37 Hemoglobin C Crystals Not Reportable 07/24/19 05:37 Schistocytes Not Reportable 07/24/19 05:37 Malaria parasites Not Reportable 07/24/19 05:37 Emanuel Bodies Not Reportable 07/24/19 05:37 Hem Pathologist Commnt No 07/24/19 05:37 D-Dimer 886.89 ng/mlDDU (0-234) H 07/22/19 21:45 POC ABG pH 7.280 (7.35-7.45) L 07/23/19 10:52 ABG pH 7.435 pH Units (7.350-7.450) 07/24/19 00:40 POC ABG pCO2 48.7 (35-45) H 07/23/19 10:52 ABG pCO2 36.0 mm Hg 07/24/19 00:40 POC ABG pO2 105 (80-105) 07/23/19 10:52 ABG pO2 151.3 mm Hg (80.0-90.0) H 07/24/19 00:40 POC ABG HCO3 22.9 (22-26 mml/L) 07/23/19 10:52 ABG HCO3 23.6 mmol/L (20.0-26.0) 07/24/19 00:40 POC ABG Total CO2 24 (23-27mmol/L) 07/23/19 10:52 POC ABG O2 Sat 97 07/23/19 10:52 ABG O2 Saturation 98.9 % (95.0-99.0) 07/24/19 00:40 ABG O2 Content 20.5 (0.0-44) 07/24/19 00:40 POC ABG Base Excess -4 ((-2) - (+3)mmol/L) 07/23/19 10:52 ABG Base Excess -0.1 mmol/L (-2.0-3.0) 07/24/19 00:40 ABG Hemoglobin 14.8 gm/dl (14.0-18.0) 07/24/19 00:40 ABG Carboxyhemoglobin 1.2 % (0.0-5.0) 07/24/19 00:40 ABG Methemoglobin 0.5 % (0.0-1.5) 07/24/19 00:40 Oxyhemoglobin 97.3 % (95.0-99.0) 07/24/19 00:40 FiO2 45 % 07/24/19 00:40 Sodium 139 mmol/L (137-145) 07/24/19 05:37 Potassium 4.7 mmol/L (3.6-5.0) 07/24/19 05:37 Chloride 100.4 mmol/L (98-107) 07/24/19 05:37 Carbon Dioxide 26 mmol/L (22-30) 07/24/19 05:37 Anion Gap 17 mmol/L 07/24/19 05:37 BUN 29 mg/dL (9-20) H 07/24/19 05:37 Creatinine 1.2 mg/dL (0.8-1.5) 07/24/19 05:37 Estimated GFR > 60 ml/min 07/24/19 05:37 BUN/Creatinine Ratio 24 % 07/24/19 05:37 Glucose 120 mg/dL (75-100) H 07/24/19 05:37 POC Glucose 102 (70-105) 07/24/19 14:29 Lactic Acid 3.90 mmol/L (0.7-2.0) H* 07/24/19 05:37 Calcium 7.4 mg/dL (8.4-10.2) L 07/24/19 05:37 Phosphorus 2.30 mg/dL (2.5-4.5) L D 07/24/19 05:37 Magnesium 2.20 mg/dL (1.7-2.3) 07/24/19 05:37 Total Bilirubin 1.40 mg/dL (0.1-1.2) H 07/24/19 05:37 Direct Bilirubin 0.2 mg/dL (0-0.2) 07/21/19 19:02 Indirect Bilirubin 0.4 mg/dL 07/21/19 19:02 AST 107 units/L (5-40) H 07/24/19 05:37 ALT 45 units/L (7-56) 07/24/19 05:37 Alkaline Phosphatase 49 units/L (35-129) 07/24/19 05:37 Ammonia 39.0 umol/L (25-60) 07/23/19 02:50 Troponin T < 0.010 ng/mL (0.00-0.029) 07/22/19 15:33 NT-Pro-B Natriuret Pep 5407 pg/mL (0-450) H 07/22/19 21:45 Total Protein 5.3 g/dL (6.3-8.2) L 07/24/19 05:37 Albumin 2.5 g/dL (3.9-5) L 07/24/19 05:37 Albumin/Globulin Ratio 0.9 % 07/24/19 05:37 Lipase 10 units/L (13-60) L 07/21/19 19:02 TSH 0.888 mlU/mL (0.270-4.200) 07/23/19 13:06 Free T4 1.04 ng/dL (0.76-1.46) 07/23/19 13:06 Urine Color Emy (Yellow) 07/21/19 21:36 Urine Turbidity Clear (Clear) 07/21/19 21:36 Urine pH 5.0 (5.0-7.0) 07/21/19 21:36 Ur Specific Caroleen 1.024 (1.003-1.030) 07/21/19 21:36 Urine Protein <15 mg/dl mg/dL (Negative) 07/21/19 21:36 Urine Glucose (UA) Neg mg/dL (Negative) 07/21/19 21:36 Urine Ketones Neg mg/dL (Negative) 07/21/19 21:36 Urine Blood Neg (Negative) 07/21/19 21:36 Urine Nitrite Neg (Negative) 07/21/19 21:36 Urine Bilirubin Sm (Negative) 07/21/19 21:36 Urine Ictotest Negative (Negative) 07/21/19 21:36 Urine Urobilinogen 4.0 mg/dL (<2.0) 07/21/19 21:36 Ur Leukocyte Esterase Neg (Negative) 07/21/19 21:36 Urine WBC (Auto) 1.0 /HPF (0.0-6.0) 07/21/19 21:36 Urine RBC (Auto) 1.0 /HPF (0.0-6.0) 07/21/19 21:36 U Epithel Cells (Auto) < 1.0 /HPF (0-13.0) 07/21/19 21:36 Urine Mucus Few /HPF 07/21/19 21:36 Hepatitis A IgM Ab Non-reactive (NonReactive) 07/23/19 13:06 Hep Bs Antigen Non-reactive (Negative) 07/23/19 13:06 Hep B Core IgM Ab Non-reactive (NonReactive) 07/23/19 13:06 Hepatitis C Antibody Non-reactive (NonReactive) 07/23/19 13:06 Blood Type A POSITIVE 07/23/19 13:06 Antibody Screen Negative 07/23/19 13:06 Active Medications - Current Medications Current Medications: Generic Name Dose Route Start Last Admin Trade Name Freq PRN Reason Stop Dose Admin Acetaminophen 650 mg 07/23/19 02:48 Tylenol LA Q4H PRN Fever >100.5 Albumin Human 25 gm 07/23/19 13:11 Alburx 25% (Albumin) IV DIOR PRN Hypotension Bisacodyl 10 mg 07/21/19 22:25 Dulcolax PO QDAY PRN Constipation Enoxaparin Sodium 30 mg 07/22/19 22:00 07/23/19 23:35 Lovenox SUB-Q 30 mg QDAY@2200 STEPHEN Administration Famotidine 20 mg 07/24/19 10:00 07/24/19 10:30 Pepcid IV 20 mg BID STEPHEN Administration Phenylephrine HCl 100 mg/ 100 mls @ 3 mls/hr 07/23/19 02:45 07/24/19 13:36 Sodium Chloride IV 50 mcg/min TITR STEPHEN 3 mls/hr Titration Protocol 50 MCG/MIN Vasopressin 20 unit/ Sodium 101 mls @ 9.09 mls/hr 07/23/19 10:00 07/24/19 18:31 Chloride IV 0.03 units/min TITR STEPHEN 9.09 mls/hr Administration Protocol 0.03 UNITS/MIN Norepinephrine 8 mg/ Sodium 250 mls @ 3.75 mls/hr 07/23/19 12:00 07/23/19 13:08 Chloride IV 0 mcg/min TITR STEPHEN 0 mls/hr Titration Protocol 2 MCG/MIN Fentanyl Citrate 2,000 mcg in 100 mls @ 5.557 mls/hr 07/23/19 12:00 07/24/19 05:50 Fentanyl Drip Premix IV 1 mcg/kg/hr TITR STEPHEN 5.557 mls/hr Administration Protocol 1 MCG/KG/HR Cefepime HCl 2 gm in 100 mls @ 200 mls/hr 07/23/19 16:00 07/24/19 16:33 Maxipime/Ns 2 Gm/100 Ml IV 200 mls/hr Q12H STEPHEN Administration Protocol Metronidazole 500 mg in 100 mls @ 100 mls/hr 07/23/19 16:00 07/24/19 14:43 Flagyl 500 Mg/100 Ml IV 100 mls/hr Q8HR STEPHEN Administration Protocol Valproate Sodium 500 mg/ 105 mls @ 100 mls/hr 07/24/19 10:00 07/24/19 10:39 Sodium Chloride IV 100 mls/hr Q12HR STEPHEN Administration Sodium Chloride 1,000 mls @ 200 mls/hr 07/24/19 10:00 07/24/19 10:40 Nacl 0.9% 1000 Ml IV 200 mls/hr DIRECT STEPHEN Administration Fluconazole 200 mg in 100 mls @ 100 mls/hr 07/25/19 10:00 Diflucan IV Q24HR STEPHEN Protocol Ondansetron HCl 4 mg 07/21/19 22:25 07/22/19 01:07 Zofran IV 4 mg Q8H PRN Administration Nausea And Vomiting Nutrition/Malnutrition Assess - Dietary Evaluation Nutrition/Malnutrition Findings: Nutrition Notes Start: 07/23/19 10:09 Freq: Status: Active Protocol: Document 07/23/19 10:09 RITA (Rec: 07/23/19 10:15 [facility] [id number]) Nutrition Notes 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 Pt with hx of Down's syndrome and lives at personal [facility]. He was intubated this am. Burn Absent Trauma Absent GI Symptoms Nausea,Vomiting,Constipation Minimum of two criteria No physical signs of malnutrition #1 Nutrition Diagnosis Inadequate oral intake Etiology mech ventilation As Evidenced by Signs and Symptoms pt NPO Is patient on ventilator? Yes Is Patient Ambulatory and/or Out of Bed No REE-([facility]-confined to bed) 2490.588 Kcal/Kg value to use for calculation 17 Approximate Energy Requirements Using 1889 kcal/Kg Calculation Used for Recommendations Kcal/kg Additional Notes Pro needs 2g/kg IBW: 135g/day Fluid needs 1ml/kcal Nutrition Intervention Change Diet Order: Advance diet when medically feasible Goal #1 Diet advancement to meet nutrient needs Goal #2 Improved bowel function Anticipated Discharge Needs: Unable to identify at this time Follow-Up By: 07/25/19 Additional Comments F/U: Diet advancement, vent status
[2019-07-24] MEDS: ENOXAPARIN 30 MG/0.3 ML INJ SUB-Q SCH (21:19)
--- NOTE | 2019-07-24 23:07 | Progress Note ---
Assessment and Plan Imp: 1. Constipation -> now diarrhea after laxatives 2. Sepsis, 2/2 bowel necrosis 3. [place], ? contrast-induced + sepsis 4. Hyperkalemia 2/2 #3 5. Obesity 6. Acute respiratory failure, hypoxia/hypercapnea 7. Lactic acidosis Rec: 1. ABX per ID 2. Pressors to keep MAP > 65; trend lactate 3. Holding HD 4. Reviewed ABG, better 5. LE dopplers negative; added DVT PPx; D-dimer likely elevated due to sepsis; PE unlikely; hold off on V/Q for now 6. For completion colectomy ; leave intubated until then 7. NGT to LIWS 8. Fentanyl drip 9. 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 Abd left open for additional surgery . He is sedated on the ventilator, on Fentanyl. On Vasopressin and Jean, and the latter has been weaned to 50mcg. Active Medications Acetaminophen (Tylenol) 650 mg ND Q4H PRN PRN Reason: Fever >100.5 Albumin Human (Alburx 25% (Albumin)) 25 gm IV DIOR PRN PRN Reason: Hypotension Bisacodyl (Dulcolax) 10 mg PO QDAY PRN PRN Reason: Constipation Enoxaparin Sodium (Lovenox) 30 mg SUB-Q QDAY@2200 [facility] Last Admin: 07/24/19 21:19 Dose: 30 mg Documented by: Famotidine (Pepcid) 20 mg IV BID [facility] Last Admin: 07/24/19 21:19 Dose: 20 mg Documented by: Phenylephrine HCl 100 mg/ (Sodium Chloride) 100 mls @ 3 mls/hr IV TITR STEPHEN; Protocol Last Titration: 07/24/19 21:31 Dose: 0 mcg/min, 0 mls/hr Documented by: Vasopressin 20 unit/ Sodium (Chloride) 101 mls @ 9.09 mls/hr IV TITR STEPHEN; Protocol Last Titration: 07/24/19 22:04 Dose: 0.02 units/min, 6.06 mls/hr Documented by: Norepinephrine 8 mg/ Sodium (Chloride) 250 mls @ 3.75 mls/hr IV TITR STEPHEN; Protocol Last Titration: 07/23/19 13:08 Dose: 0 mcg/min, 0 mls/hr Documented by: Fentanyl Citrate (Fentanyl Drip Premix) 2,000 mcg in 100 mls @ 5.557 mls/hr IV TITR STEPHEN; Protocol Last Titration: 07/24/19 19:45 Dose: 2 mcg/kg/hr, 11.113 mls/hr Documented by: Cefepime HCl (Maxipime/Ns 2 Gm/100 Ml) 2 gm in 100 mls @ 200 mls/hr IV Q12H STEPHEN; Protocol Last Admin: 07/24/19 16:33 Dose: 200 mls/hr Documented by: Metronidazole (Flagyl 500 Mg/100 Ml) 500 mg in 100 mls @ 100 mls/hr IV Q8HR STEPHEN; Protocol Last Admin: 07/24/19 21:19 Dose: 100 mls/hr Documented by: Valproate Sodium 500 mg/ (Sodium Chloride) 105 mls @ 100 mls/hr IV Q12HR STEPHEN Last Admin: 07/24/19 21:19 Dose: 100 mls/hr Documented by: Sodium Chloride (Nacl 0.9% 1000 Ml) 1,000 mls @ 200 mls/hr IV DIRECT STEPHEN Last Admin: 07/24/19 10:40 Dose: 200 mls/hr Documented by: Fluconazole (Diflucan) 200 mg in 100 mls @ 100 mls/hr IV Q24HR STEPHEN; Protocol Ondansetron HCl (Zofran) 4 mg IV Q8H PRN PRN Reason: Nausea And Vomiting Last Admin: 07/22/19 01:07 Dose: 4 mg Documented by: Objective Vital Signs - 12hr 07/24/19 07/24/19 07/24/19 11:10 11:20 11:30 Temperature Pulse Rate 96 H 94 H 93 H Pulse Rate [ From Monitor] Respiratory 25 H 25 H 25 H Rate Blood Pressure 119/68 128/75 127/72 O2 Sat by Pulse 100 100 100 Oximetry 07/24/19 07/24/19 07/24/19 11:40 11:50 12:00 Temperature 98.0 F Pulse Rate 91 H 89 93 H Pulse Rate [ From Monitor] Respiratory 25 H 25 H 25 H Rate Blood Pressure 127/72 126/69 126/72 O2 Sat by Pulse 100 100 100 Oximetry 07/24/19 07/24/19 07/24/19 12:10 12:14 12:20 Temperature Pulse Rate 93 H 91 H 94 H Pulse Rate [ From Monitor] Respiratory 25 H 31 H 23 Rate Blood Pressure 126/72 127/77 127/77 O2 Sat by Pulse 100 98 98 Oximetry 07/24/19 07/24/19 07/24/19 12:30 12:40 12:50 Temperature Pulse Rate 111 H 113 H 113 H Pulse Rate [ From Monitor] Respiratory 20 21 22 Rate Blood Pressure 137/82 137/82 131/73 O2 Sat by Pulse 93 95 96 Oximetry 07/24/19 07/24/19 07/24/19 13:00 13:10 13:20 Temperature Pulse Rate 114 H 114 H 114 H Pulse Rate [ From Monitor] Respiratory 23 21 22 Rate Blood Pressure 126/67 126/67 124/66 O2 Sat by Pulse 97 97 97 Oximetry 07/24/19 07/24/19 07/24/19 13:30 13:40 13:50 Temperature Pulse Rate 115 H 113 H 112 H Pulse Rate [ From Monitor] Respiratory 24 21 21 Rate Blood Pressure 130/72 130/72 125/69 O2 Sat by Pulse 97 97 97 Oximetry 07/24/19 07/24/19 07/24/19 14:00 14:10 14:20 Temperature Pulse Rate 114 H 114 H 114 H Pulse Rate [ From Monitor] Respiratory 24 23 23 Rate Blood Pressure 124/73 124/73 123/70 O2 Sat by Pulse 97 96 97 Oximetry 07/24/19 07/24/19 07/24/19 14:30 14:40 14:50 Temperature Pulse Rate 106 H 104 H 102 H Pulse Rate [ From Monitor] Respiratory 17 25 H 21 Rate Blood Pressure 123/70 102/72 107/62 O2 Sat by Pulse 97 97 99 Oximetry 07/24/19 07/24/19 07/24/19 15:00 15:10 15:20 Temperature Pulse Rate 100 H 98 H 96 H Pulse Rate [ From Monitor] Respiratory 25 H 25 H 25 H Rate Blood Pressure 101/68 101/68 117/72 O2 Sat by Pulse 98 99 99 Oximetry 07/24/19 07/24/19 07/24/19 15:30 15:40 15:50 Temperature Pulse Rate 94 H 92 H 91 H Pulse Rate [ From Monitor] Respiratory 24 25 H 25 H Rate Blood Pressure 124/75 124/75 122/77 O2 Sat by Pulse 99 100 100 Oximetry 07/24/19 07/24/19 07/24/19 16:00 16:10 16:20 Temperature 98.6 F Pulse Rate 90 93 H 86 Pulse Rate [ From Monitor] Respiratory 25 H 26 H 25 H Rate Blood Pressure 120/77 120/77 123/80 O2 Sat by Pulse 100 99 100 Oximetry 07/24/19 07/24/19 07/24/19 16:30 16:40 16:41 Temperature Pulse Rate 87 85 87 Pulse Rate [ From Monitor] Respiratory 25 H 22 Rate Blood Pressure 121/78 121/78 121/78 O2 Sat by Pulse 100 100 100 Oximetry 07/24/19 07/24/19 07/24/19 16:50 17:00 17:10 Temperature Pulse Rate 94 H 98 H 100 H Pulse Rate [ From Monitor] Respiratory 25 H 25 H 25 H Rate Blood Pressure 124/82 128/77 124/82 O2 Sat by Pulse 99 97 94 Oximetry 07/24/19 07/24/19 07/24/19 17:20 17:30 17:40 Temperature Pulse Rate 103 H 98 H 94 H Pulse Rate [ From Monitor] Respiratory 25 H 25 H 25 H Rate Blood Pressure 119/68 120/67 120/67 O2 Sat by Pulse 96 94 95 Oximetry 07/24/19 07/24/19 07/24/19 17:50 18:00 18:10 Temperature Pulse Rate 98 H 97 H 89 Pulse Rate [ From Monitor] Respiratory 25 H 17 25 H Rate Blood Pressure 119/68 119/68 88/41 O2 Sat by Pulse 96 86 97 Oximetry 07/24/19 07/24/19 07/24/19 18:20 18:30 18:37 Temperature Pulse Rate 84 89 84 Pulse Rate [ From Monitor] Respiratory 25 H 25 H Rate Blood Pressure 119/83 128/85 128/85 O2 Sat by Pulse 100 100 100 Oximetry 07/24/19 07/24/19 07/24/19 18:40 18:50 19:00 Temperature Pulse Rate 85 87 89 Pulse Rate [ From Monitor] Respiratory 25 H 20 21 Rate Blood Pressure 119/83 128/87 126/84 O2 Sat by Pulse 100 100 100 Oximetry 07/24/19 07/24/19 07/24/19 19:10 19:20 19:30 Temperature Pulse Rate 91 H 91 H 95 H Pulse Rate [ From Monitor] Respiratory 20 20 20 Rate Blood Pressure 128/87 126/78 133/87 O2 Sat by Pulse 99 100 99 Oximetry 07/24/19 07/24/19 07/24/19 19:40 19:50 20:00 Temperature Pulse Rate 93 H 93 H 87 Pulse Rate [ 89 From Monitor] Respiratory 21 20 20 Rate Blood Pressure 133/87 134/85 124/81 O2 Sat by Pulse 98 99 98 Oximetry 07/24/19 07/24/19 07/24/19 20:10 20:20 20:22 Temperature 98.7 F Pulse Rate 90 90 Pulse Rate [ From Monitor] Respiratory 20 20 Rate Blood Pressure 124/81 128/78 O2 Sat by Pulse 99 98 Oximetry 07/24/19 07/24/19 07/24/19 20:30 20:40 20:50 Temperature Pulse Rate 93 H 89 92 H Pulse Rate [ From Monitor] Respiratory 20 20 20 Rate Blood Pressure 127/81 124/81 128/80 O2 Sat by Pulse 99 98 98 Oximetry 07/24/19 07/24/19 07/24/19 21:00 21:10 21:20 Temperature Pulse Rate 93 H 91 H 94 H Pulse Rate [ From Monitor] Respiratory 14 20 20 Rate Blood Pressure 128/98 128/98 136/91 O2 Sat by Pulse 100 99 99 Oximetry 07/24/19 21:30 Temperature Pulse Rate 91 H Pulse Rate [ From Monitor] Respiratory 20 Rate Blood Pressure 135/92 O2 Sat by Pulse 99 Oximetry Constitutional: other (obese, sedated, critically ill on ventilator) Eyes: non-icteric ENT: oropharynx moist Neck: supple Effort: normal Ascultation: Bilateral: diminished breath sounds (due to obesity) Cardiovascular: other (sinus tachy, no mrg, regular rhythm) Gastrointestinal: normoactive bowel sounds, soft, other (morbidly obese abd) Integumentary: normal Extremities: no cyanosis, no edema, pink and warm Neurologic: normal mental status, non-focal exam, pupils equal and round Psychiatric: mood appropriate, affect normal CBC and BMP: 07/24/19 05:37 07/24/19 05:37 ABG, PT/INR, D-dimer: ABG POC ABG pH 7.464 (7.35-7.45) H 07/24/19 18:44 ABG pH 7.435 pH Units (7.350-7.450) 07/24/19 00:40 POC ABG pCO2 36.2 (35-45) 07/24/19 18:44 ABG pCO2 36.0 mm Hg 07/24/19 00:40 POC ABG pO2 125 (80-105) H 07/24/19 18:44 ABG pO2 151.3 mm Hg (80.0-90.0) H 07/24/19 00:40 POC ABG HCO3 26.0 (22-26 mml/L) 07/24/19 18:44 POC ABG Total CO2 27 (23-27mmol/L) 07/24/19 18:44 POC ABG O2 Sat 99 07/24/19 18:44 ABG O2 Saturation 98.9 % (95.0-99.0) 07/24/19 00:40 PT/INR, D-dimer D-Dimer 886.89 ng/mlDDU (0-234) H 07/22/19 21:45 Abnormal lab findings: Abnormal Labs 07/21/19 07/21/19 07/22/19 19:02 19:02 10:50 WBC 12.1 H 13.7 H RBC 5.56 H Hgb 17.1 H Hct 52.9 H D MCV 95 H 95 H Plt Count 130 L 137 L Lymph % (Auto) 7.2 L [place] % (Auto) 9.6 H Lymph # 0.9 L [place] # 1.2 H Seg Neutrophils % 82.8 H Lymphocytes % (Manual) Monocytes % (Manual) Seg Neutrophils # 10.0 H Lymphocytes # (Manual) Monocytes # (Manual) D-Dimer POC ABG pH POC ABG pCO2 POC ABG pO2 ABG pO2 Sodium 136 L Potassium Chloride 95.9 L Carbon Dioxide BUN Creatinine Glucose 163 H POC Glucose Lactic Acid Calcium Phosphorus Magnesium Total Bilirubin AST NT-Pro-B Natriuret Pep Total Protein Albumin Lipase 10 L 07/22/19 07/22/19 07/22/19 10:50 15:33 15:33 WBC 13.1 H RBC 5.10 H Hgb 15.9 H Hct 49.0 H MCV 96 H Plt Count 127 L Lymph % (Auto) [place] % (Auto) Lymph # [place] # Seg Neutrophils % Lymphocytes % (Manual) Monocytes % (Manual) Seg Neutrophils # Lymphocytes # (Manual) Monocytes # (Manual) D-Dimer POC ABG pH POC ABG pCO2 POC ABG pO2 ABG pO2 Sodium 136 L Potassium 5.3 H D 6.0 H Chloride 96.7 L Carbon Dioxide 17 L BUN 22 H 29 H Creatinine 2.0 H D 2.2 H Glucose 129 H 121 H POC Glucose Lactic Acid Calcium 8.2 L Phosphorus 4.70 H Magnesium 3.10 H Total Bilirubin AST NT-Pro-B Natriuret Pep Total Protein Albumin Lipase 07/22/19 07/22/19 07/22/19 18:19 18:42 21:45 WBC RBC Hgb Hct MCV Plt Count Lymph % (Auto) [place] % (Auto) Lymph # [place] # Seg Neutrophils % Lymphocytes % (Manual) Monocytes % (Manual) Seg Neutrophils # Lymphocytes # (Manual) Monocytes # (Manual) D-Dimer 886.89 H POC ABG pH 7.197 L POC ABG pCO2 45.2 H POC ABG pO2 ABG pO2 Sodium Potassium Chloride Carbon Dioxide BUN Creatinine Glucose POC Glucose 107 H Lactic Acid Calcium Phosphorus Magnesium Total Bilirubin AST NT-Pro-B Natriuret Pep Total Protein Albumin Lipase 07/22/19 07/22/19 07/22/19 21:45 21:45 21:45 WBC RBC Hgb Hct MCV Plt Count Lymph % (Auto) [place] % (Auto) Lymph # [place] # Seg Neutrophils % Lymphocytes % (Manual) Monocytes % (Manual) Seg Neutrophils # Lymphocytes # (Manual) Monocytes # (Manual) D-Dimer POC ABG pH POC ABG pCO2 POC ABG pO2 ABG pO2 Sodium 136 L Potassium 5.6 H Chloride Carbon Dioxide 20 L BUN 38 H Creatinine 2.6 H Glucose 63 L POC Glucose Lactic Acid 3.10 H* Calcium 8.2 L Phosphorus Magnesium Total Bilirubin AST NT-Pro-B Natriuret Pep 5407 H Total Protein Albumin Lipase 07/23/19 07/23/19 07/23/19 02:11 02:50 02:50 WBC 15.0 H RBC Hgb Hct MCV 95 H Plt Count 118 L Lymph % (Auto) [place] % (Auto) Lymph # [place] # Seg Neutrophils % Lymphocytes % (Manual) 9.0 L Monocytes % (Manual) 17.0 H Seg Neutrophils # Lymphocytes # (Manual) Monocytes # (Manual) 2.6 H D-Dimer POC ABG pH POC ABG pCO2 POC ABG pO2 ABG pO2 Sodium Potassium Chloride Carbon Dioxide BUN Creatinine Glucose POC Glucose 69 L Lactic Acid 3.30 H* Calcium Phosphorus Magnesium Total Bilirubin AST NT-Pro-B Natriuret Pep Total Protein Albumin Lipase 07/23/19 07/23/19 07/23/19 02:50 03:09 04:30 WBC RBC Hgb Hct MCV Plt Count Lymph % (Auto) [place] % (Auto) Lymph # [place] # Seg Neutrophils % Lymphocytes % (Manual) Monocytes % (Manual) Seg Neutrophils # Lymphocytes # (Manual) Monocytes # (Manual) D-Dimer POC ABG pH 7.296 L POC ABG pCO2 POC ABG pO2 66 L ABG pO2 Sodium 134 L Potassium 7.5 H* D Chloride Carbon Dioxide 21 L BUN 47 H Creatinine 2.7 H Glucose POC Glucose Lactic Acid 3.50 H* Calcium 7.6 L Phosphorus Magnesium 2.90 H Total Bilirubin AST 60 H NT-Pro-B Natriuret Pep Total Protein 5.5 L D Albumin 2.5 L Lipase 07/23/19 07/23/19 07/23/19 07:30 09:03 09:03 WBC RBC Hgb Hct MCV Plt Count Lymph % (Auto) [place] % (Auto) Lymph # [place] # Seg Neutrophils % Lymphocytes % (Manual) Monocytes % (Manual) Seg Neutrophils # Lymphocytes # (Manual) Monocytes # (Manual) D-Dimer POC ABG pH POC ABG pCO2 POC ABG pO2 ABG pO2 Sodium 136 L Potassium 6.6 H* 7.1 H* Chloride Carbon Dioxide 20 L BUN 50 H 49 H Creatinine 2.6 H 2.4 H Glucose 67 L POC Glucose Lactic Acid 4.10 H* Calcium 7.6 L 7.7 L Phosphorus Magnesium Total Bilirubin AST NT-Pro-B Natriuret Pep Total Protein Albumin Lipase 07/23/19 07/23/19 07/23/19 10:52 13:13 14:48 WBC RBC Hgb Hct MCV Plt Count Lymph % (Auto) [place] % (Auto) Lymph # [place] # Seg Neutrophils % Lymphocytes % (Manual) Monocytes % (Manual) Seg Neutrophils # Lymphocytes # (Manual) Monocytes # (Manual) D-Dimer POC ABG pH 7.280 L POC ABG pCO2 48.7 H POC ABG pO2 ABG pO2 Sodium Potassium Chloride Carbon Dioxide BUN Creatinine Glucose POC Glucose 123 H Lactic Acid 4.10 H* Calcium Phosphorus Magnesium Total Bilirubin AST NT-Pro-B Natriuret Pep Total Protein Albumin Lipase 07/23/19 07/23/19 07/23/19 15:56 17:35 Unknown WBC RBC Hgb Hct MCV Plt Count Lymph % (Auto) [place] % (Auto) Lymph # [place] # Seg Neutrophils % Lymphocytes % (Manual) Monocytes % (Manual) Seg Neutrophils # Lymphocytes # (Manual) Monocytes # (Manual) D-Dimer POC ABG pH POC ABG pCO2 POC ABG pO2 ABG pO2 Sodium Potassium Chloride Carbon Dioxide BUN Creatinine Glucose POC Glucose Lactic Acid 3.00 H* 4.10 H* 4.90 H* Calcium Phosphorus Magnesium Total Bilirubin AST NT-Pro-B Natriuret Pep Total Protein Albumin Lipase 07/23/19 07/24/19 07/24/19 Unknown 00:05 00:40 WBC RBC Hgb Hct MCV Plt Count Lymph % (Auto) [place] % (Auto) Lymph # [place] # Seg Neutrophils % Lymphocytes % (Manual) Monocytes % (Manual) Seg Neutrophils # Lymphocytes # (Manual) Monocytes # (Manual) D-Dimer POC ABG pH POC ABG pCO2 POC ABG pO2 ABG pO2 151.3 H Sodium Potassium 5.6 H D Chloride Carbon Dioxide BUN 29 H Creatinine Glucose 128 H POC Glucose 118 H Lactic Acid Calcium 7.4 L Phosphorus Magnesium Total Bilirubin AST NT-Pro-B Natriuret Pep Total Protein Albumin Lipase 07/24/19 07/24/19 07/24/19 04:00 05:37 05:37 WBC RBC Hgb Hct MCV Plt Count 89 L Lymph % (Auto) [place] % (Auto) Lymph # [place] # Seg Neutrophils % Lymphocytes % (Manual) 5.0 L Monocytes % (Manual) Seg Neutrophils # Lymphocytes # (Manual) 0.5 L Monocytes # (Manual) D-Dimer POC ABG pH POC ABG pCO2 POC ABG pO2 ABG pO2 Sodium Potassium Chloride Carbon Dioxide BUN 29 H Creatinine Glucose 120 H POC Glucose 123 H Lactic Acid Calcium 7.4 L Phosphorus 2.30 L D Magnesium Total Bilirubin 1.40 H AST 107 H NT-Pro-B Natriuret Pep Total Protein 5.3 L Albumin 2.5 L Lipase 07/24/19 07/24/19 07/24/19 05:37 10:18 18:44 WBC RBC Hgb Hct MCV Plt Count Lymph % (Auto) [place] % (Auto) Lymph # [place] # Seg Neutrophils % Lymphocytes % (Manual) Monocytes % (Manual) Seg Neutrophils # Lymphocytes # (Manual) Monocytes # (Manual) D-Dimer POC ABG pH 7.464 H POC ABG pCO2 POC ABG pO2 125 H ABG pO2 Sodium Potassium Chloride Carbon Dioxide BUN Creatinine Glucose POC Glucose 130 H Lactic Acid 3.90 H* Calcium Phosphorus Magnesium Total Bilirubin AST NT-Pro-B Natriuret Pep Total Protein Albumin Lipase Chest x-ray: report reviewed, image reviewed (clear lungs)
[2019-07-25] MEDS: fentaNYL DRIP Premix 2,000 MCG/100 ML BAG IV SCH ×2 (01:31→15:15)
[2019-07-25] MEDS: CEFEPIME/NS 2 GM/100 ML 2 GM/100 ML BAG IV SCH ×2 (04:48→15:16)
[2019-07-25] MEDS: metroNIDAZOLE/NS 500 MG/100 ML 500 MG/100 ML BAG IV SCH ×3 (05:01→21:16)
[2019-07-25 05:36] LABS: Hematocrit 36.2 % (35.5-45.6); Mean Corpuscular HGB Conc 33 % (32-34); Mean Corpuscular Volume 94 fl (84-94); Red Blood Count 3.86 M/mm3 (3.65-5.03); Red Cell Distribution Width 15.2 % (13.2-15.2)
[2019-07-25 05:40] LABS: Platelet Count 91 K/mm3 (140-440)
[2019-07-25 05:49] LABS: ABG Base Excess 1.1 mmol/L (-2.0-3.0); ABG Methemoglobin 0.6 % (0.0-1.5); ABG Oxygen Saturation 94.7 % (95.0-99.0); ABG PCO2 42.1 mm Hg; ABG PH 7.408 pH Units (7.350-7.450); ABG PO2 70.6 mm Hg (80.0-90.0)
[2019-07-25 06:02] LABS: BUN/Creatinine Ratio 27; Blood Urea Nitrogen 24 mg/dL (9-20); Calcium 7.9 mg/dL (8.4-10.2); Hemolysis Index 8
[2019-07-25] MEDS: SODIUM CHLORIDE 0.9% 1000 ML 1,000 ML IV SCH ×3 (07:51→20:46)
[2019-07-25] MEDS: VALPROATE SODIUM 500 MG in SODIUM CHLORIDE 0.9% 100 ML IV SCH ×2 (09:40→21:17)
[2019-07-25] MEDS: FLUCONAZOLE 200 MG 200 MG/100 ML BAG IV SCH (09:40)
[2019-07-25] MEDS: FAMOTIDINE 20 MG/2 ML INJ IV SCH ×2 (09:40→21:16)
--- NOTE | 2019-07-25 10:16 | Progress Note ---
Assessment and Plan 1. Acute kidney injury: Vasomotor [place] in the setting of volume depletion. Patient was dialyzed on due to hyperkalemia. Renal function is better. Continue IV fluids. Monitor renal function. Avoid nephrotoxic agents. Meds dosage based on GFR. 2. FEN: Hyperkalemia, improved after hemodialysis. Metabolic acidosis, improved. Hyponatremia, improved. Replete Phos. Monitor lytes. 3. Hypotension: Currently on Vasopressin. continue IV fluids. 4. Ischemic Colon: S/p Ex Lap and partial Colon Resection. Followed by . 5. Respiratory failure: On vent. 6. Sepsis: Cultures negative so far. Leukocytosis has improved. 7. Sinus tachycardia: Improved. Examination: General appearance: well-developed, well-nourished, appears stated age, obese, intubated, on vent HEENT: [place], [place] Neck: neck supple, trachea midline Respiratory: Clear to Ascultation Heart: regular, S1S2, no murmur Gastrointestinal: obese, wound vac noted Integumentary: no rash, warm and dry : Mcpherson catheter Neurologic: moves extremities with stimuli Musculoskeletal: no deformity Hemodialysis access: R IJ temp catheter Subjective Date of service: 07/25/19 Principal diagnosis: Respiratory Failure Interval history: Patient was seen and examined at the bedside. Objective - Vital Signs Vital signs: Vital Signs - 12hr 07/24/19 07/24/19 07/24/19 22:20 22:30 22:40 Temperature Pulse Rate 101 H 96 H 96 H Pulse Rate [ From Monitor] Respiratory 20 20 20 Rate Blood Pressure 129/87 115/61 115/61 O2 Sat by Pulse 98 96 96 Oximetry 07/24/19 07/24/19 07/24/19 22:50 23:00 23:10 Temperature Pulse Rate 94 H 96 H 92 H Pulse Rate [ From Monitor] Respiratory 20 20 20 Rate Blood Pressure 119/67 119/67 O2 Sat by Pulse 96 96 96 Oximetry 07/24/19 07/24/19 07/24/19 23:20 23:30 23:38 Temperature Pulse Rate 94 H 97 H 91 H Pulse Rate [ From Monitor] Respiratory 20 20 20 Rate Blood Pressure 119/61 116/61 116/61 O2 Sat by Pulse 96 96 96 Oximetry 10/15/19 10/15/19 10/15/19 23:40 23:50 23:51 Temperature Pulse Rate 93 H 92 H 93 H Pulse Rate [ From Monitor] Respiratory 20 20 Rate Blood Pressure 116/61 119/61 119/61 O2 Sat by Pulse 96 96 100 Oximetry 07/25/19 07/25/19 07/25/19 00:00 00:10 00:20 Temperature 98.9 F Pulse Rate 91 H 91 H 89 Pulse Rate [ 93 H From Monitor] Respiratory 20 20 20 Rate Blood Pressure 108/58 108/58 109/56 O2 Sat by Pulse 96 96 96 Oximetry 07/25/19 07/25/19 07/25/19 00:28 00:30 00:40 Temperature 98.9 F Pulse Rate 92 H 94 H Pulse Rate [ From Monitor] Respiratory 20 20 Rate Blood Pressure 109/57 108/58 O2 Sat by Pulse 97 97 Oximetry 07/25/19 07/25/19 07/25/19 00:50 01:00 01:10 Temperature Pulse Rate 92 H 90 92 H Pulse Rate [ From Monitor] Respiratory 20 20 20 Rate Blood Pressure 113/56 108/56 108/56 O2 Sat by Pulse 97 97 96 Oximetry 07/25/19 07/25/19 07/25/19 01:20 01:30 01:40 Temperature Pulse Rate 87 92 H 91 H Pulse Rate [ From Monitor] Respiratory 20 20 20 Rate Blood Pressure 110/55 109/55 109/55 O2 Sat by Pulse 97 96 97 Oximetry 07/25/19 07/25/19 07/25/19 01:50 02:00 02:10 Temperature Pulse Rate 91 H 88 89 Pulse Rate [ From Monitor] Respiratory 20 20 20 Rate Blood Pressure 110/52 108/49 108/49 O2 Sat by Pulse 97 96 96 Oximetry 07/25/19 07/25/19 07/25/19 02:20 02:30 02:40 Temperature Pulse Rate 89 89 91 H Pulse Rate [ From Monitor] Respiratory 20 20 20 Rate Blood Pressure 107/50 110/54 110/54 O2 Sat by Pulse 97 97 97 Oximetry 07/25/19 07/25/19 07/25/19 02:50 03:00 03:10 Temperature Pulse Rate 89 90 91 H Pulse Rate [ From Monitor] Respiratory 20 20 20 Rate Blood Pressure 111/50 112/51 112/51 O2 Sat by Pulse 97 96 96 Oximetry 07/25/19 07/25/19 07/25/19 03:20 03:30 03:40 Temperature Pulse Rate 94 H 91 H 91 H Pulse Rate [ From Monitor] Respiratory 20 20 20 Rate Blood Pressure 108/57 110/55 110/55 O2 Sat by Pulse 97 97 97 Oximetry 07/25/19 07/25/19 07/25/19 03:50 04:00 04:10 Temperature 99.8 F H Pulse Rate 88 89 95 H Pulse Rate [ 98 H From Monitor] Respiratory 20 20 20 Rate Blood Pressure 107/53 104/54 104/54 O2 Sat by Pulse 97 97 98 Oximetry 07/25/19 07/25/19 07/25/19 04:20 04:30 04:40 Temperature Pulse Rate 95 H 87 92 H Pulse Rate [ From Monitor] Respiratory 20 20 20 Rate Blood Pressure 113/58 108/49 108/49 O2 Sat by Pulse 98 97 98 Oximetry 07/25/19 07/25/19 07/25/19 04:49 04:50 04:56 Temperature 99.8 F H Pulse Rate 92 H 87 Pulse Rate [ From Monitor] Respiratory 20 Rate Blood Pressure 103/51 103/51 O2 Sat by Pulse 100 98 Oximetry 07/25/19 07/25/19 07/25/19 05:00 05:10 05:20 Temperature Pulse Rate 89 95 H 99 H Pulse Rate [ From Monitor] Respiratory 20 20 18 Rate Blood Pressure 106/51 106/51 106/51 O2 Sat by Pulse 97 98 94 Oximetry 07/25/19 07/25/19 07/25/19 05:30 05:40 05:50 Temperature Pulse Rate 92 H 85 84 Pulse Rate [ From Monitor] Respiratory 20 21 19 Rate Blood Pressure 112/67 112/67 108/63 O2 Sat by Pulse 94 95 94 Oximetry 07/25/19 07/25/19 07/25/19 06:00 06:10 06:20 Temperature Pulse Rate 84 87 86 Pulse Rate [ From Monitor] Respiratory 20 17 20 Rate Blood Pressure 108/63 103/60 107/67 O2 Sat by Pulse 95 97 97 Oximetry 07/25/19 07/25/19 07/25/19 06:30 06:40 06:50 Temperature Pulse Rate 87 85 88 Pulse Rate [ From Monitor] Respiratory 17 16 17 Rate Blood Pressure 107/66 107/66 106/66 O2 Sat by Pulse 98 97 97 Oximetry 07/25/19 07/25/19 07/25/19 07:00 07:10 07:20 Temperature Pulse Rate 92 H 92 H 89 Pulse Rate [ From Monitor] Respiratory 18 23 17 Rate Blood Pressure 106/66 117/69 108/67 O2 Sat by Pulse 98 98 97 Oximetry 07/25/19 07/25/19 07/25/19 07:30 07:40 07:50 Temperature Pulse Rate 89 87 88 Pulse Rate [ From Monitor] Respiratory 17 26 H 23 Rate Blood Pressure 111/65 111/65 110/65 O2 Sat by Pulse 97 96 96 Oximetry 07/25/19 07/25/19 07/25/19 08:00 08:07 08:10 Temperature 98.6 F Pulse Rate 86 84 85 Pulse Rate [ 92 H From Monitor] Respiratory 21 20 Rate Blood Pressure 108/65 108/63 108/65 O2 Sat by Pulse 96 95 96 Oximetry 07/25/19 07/25/19 08:20 08:30 Temperature Pulse Rate 91 H 94 H Pulse Rate [ From Monitor] Respiratory 22 25 H Rate Blood Pressure 105/62 114/70 O2 Sat by Pulse 98 97 Oximetry - Lab 07/25/19 04:45 07/25/19 04:45 Most recent lab results ABG pH 7.408 pH Units (7.350-7.450) 07/25/19 05:32 ABG pCO2 42.1 mm Hg 07/25/19 05:32 ABG pO2 70.6 mm Hg (80.0-90.0) L 07/25/19 05:32 ABG HCO3 26.0 mmol/L (20.0-26.0) 07/25/19 05:32 ABG O2 Saturation 94.7 % (95.0-99.0) L 07/25/19 05:32 Calcium 7.9 mg/dL (8.4-10.2) L 07/25/19 04:45 Phosphorus 2.20 mg/dL (2.5-4.5) L 07/25/19 04:45 Magnesium 2.20 mg/dL (1.7-2.3) 07/24/19 05:37 Medications & Allergies - Medications Allergies/Adverse Reactions: Allergies No Known Allergies Allergy (Verified 10/20/15 03:43) Home Medications: Home Medications Medication Instructions Recorded Confirmed Last Taken Type Benztropine [Cogentin] 0.5 mg PO QHS 05/17/19 07/24/19 Unknown History Divalproex ER [Depakote ER] 500 mg PO BID 05/17/19 07/24/19 Unknown History clonazePAM [KlonoPIN] 2 mg PO BID 05/17/19 07/24/19 Unknown History traZODone [Desyrel] 100 mg PO HS 06/05/19 07/24/19 Unknown History Divalproex ER [Depakote ER] 500 mg PO BID tablet 06/06/19 07/24/19 Unknown Rx Lactulose 10 gm PO DAILY PRN #150 ml 07/21/19 Unknown Rx Active Medications: Generic Name Dose Route Start Last Admin Trade Name Freq PRN Reason Stop Dose Admin Acetaminophen 650 mg 07/23/19 02:48 Tylenol AL Q4H PRN Fever >100.5 Albumin Human 25 gm 07/23/19 13:11 Alburx 25% (Albumin) IV DIOR PRN Hypotension Bisacodyl 10 mg 07/21/19 22:25 Dulcolax PO QDAY PRN Constipation Famotidine 20 mg 07/24/19 10:00 07/25/19 09:40 Pepcid IV 20 mg BID STEPHEN Administration Phenylephrine HCl 100 mg/ 100 mls @ 3 mls/hr 07/23/19 02:45 07/24/19 21:31 Sodium Chloride IV 0 mcg/min TITR STEPHEN 0 mls/hr Titration Protocol 50 MCG/MIN Vasopressin 20 unit/ Sodium 101 mls @ 9.09 mls/hr 07/23/19 10:00 07/25/19 09:44 Chloride IV Infused TITR STEPHEN Titration Protocol 0.03 UNITS/MIN Norepinephrine 8 mg/ Sodium 250 mls @ 3.75 mls/hr 07/23/19 12:00 07/23/19 13:08 Chloride IV 0 mcg/min TITR STEPHEN 0 mls/hr Titration Protocol 2 MCG/MIN Fentanyl Citrate 2,000 mcg in 100 mls @ 5.557 mls/hr 07/23/19 12:00 07/25/19 01:31 Fentanyl Drip Premix IV 2 mcg/kg/hr TITR STEPHEN 11.113 mls/hr Administration Protocol 1 MCG/KG/HR Cefepime HCl 2 gm in 100 mls @ 200 mls/hr 07/23/19 16:00 07/25/19 04:48 Maxipime/Ns 2 Gm/100 Ml IV 200 mls/hr Q12H STEPHEN Administration Protocol Metronidazole 500 mg in 100 mls @ 100 mls/hr 07/23/19 16:00 07/25/19 05:01 Flagyl 500 Mg/100 Ml IV 100 mls/hr Q8HR STEPHEN Administration Protocol Valproate Sodium 500 mg/ 105 mls @ 100 mls/hr 07/24/19 10:00 07/25/19 09:40 Sodium Chloride IV 100 mls/hr Q12HR STEPHEN Administration Sodium Chloride 1,000 mls @ 200 mls/hr 07/24/19 10:00 07/25/19 07:51 Nacl 0.9% 1000 Ml IV 200 mls/hr DIRECT STEPHEN Administration Fluconazole 200 mg in 100 mls @ 100 mls/hr 07/25/19 10:00 07/25/19 09:40 Diflucan IV 100 mls/hr Q24HR STEPHEN Administration Protocol Ondansetron HCl 4 mg 07/21/19 22:25 07/22/19 01:07 Zofran IV 4 mg Q8H PRN Administration Nausea And Vomiting
--- NOTE | 2019-07-25 10:40 | Progress Note ---
Assessment and Plan Echo reviewed - EF 25-30%, LV mildly dilated, impaired relaxation, trivial pericardial effusion, mod pleural effusion. Cont present cardiac management. 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 No ACEI/ARB at this time in setting of recent ARF. Consider ischemic evaluation to r/o ischemic CMP once medically stabilized. DDimer is noted to be elevated - pt too unstable for V/Q scan at this time. Pt is for colectomy on . The patient has been seen in conjunction with Dr. Gutiérrez who agrees with the assessment and plan of care. - Patient Problems (1) Acute respiratory failure Current Visit: Yes Status: Acute (2) Colon distention Current Visit: Yes Status: Acute (3) Constipation Current Visit: Yes Status: Acute (4) Intractable vomiting with nausea Current Visit: Yes Status: Acute (5) Sinus tachycardia Current Visit: Yes Status: Acute (6) Hypotension Current Visit: Yes Status: Acute (7) Acute renal failure Current Visit: Yes Status: Acute (8) Hyperkalemia Current Visit: Yes Status: Acute (9) Leukocytosis Current Visit: Yes Status: Acute (10) Lactic acidosis Current Visit: Yes Status: Acute (11) Elevated d-dimer Current Visit: Yes Status: Acute (12) Cardiomyopathy Current Visit: Yes Status: Acute Subjective Date of service: 07/25/19 Principal diagnosis: Respiratory Failure Interval history: pt remains intubated, sedated, on vaso. in SR HR 80s on telemetry. no family at bedside. Objective Last Vital Signs Temp 98.6 F 07/25/19 08:00 Pulse 94 H 07/25/19 08:30 Resp 25 H 07/25/19 08:30 BP 114/70 07/25/19 08:30 Pulse Ox 97 07/25/19 08:30 - Physical Examination General: Other (intubated) Neck: Positive: neck supple, trachea midline Cardiac: Positive: Reg Rate and Rhythm, S1/S2 Lungs: Positive: Decreased Breath Sounds, Ventilated Respirations Neuro: Positive: Other (intubated) Skin: Negative: Rash Extremities: Absent: edema - Labs and Meds CBC 07/25/19 Range/Units 04:45 WBC 7.1 (4.5-11.0) K/mm3 RBC 3.86 (3.65-5.03) M/mm3 Hgb 12.0 (11.8-15.2) gm/dl Hct 36.2 (35.5-45.6) % Plt Count 91 L (140-440) K/mm3 Comprehensive Metabolic Panel 07/25/19 Range/Units 04:45 Sodium 141 (137-145) mmol/L Potassium 4.3 (3.6-5.0) mmol/L Chloride 105.4 (98-107) mmol/L Carbon Dioxide 24 (22-30) mmol/L BUN 24 H (9-20) mg/dL Creatinine 0.9 (0.8-1.5) mg/dL Glucose 84 (75-100) mg/dL Calcium 7.9 L (8.4-10.2) mg/dL - Imaging and Cardiology EKG: report reviewed, image reviewed Stress echo: report reviewed, image reviewed Echo: pending - EKG Sinus rhythms and dysrhythmias: sinus tachycardia
--- NOTE | 2019-07-25 12:03 | Progress Note ---
Assessment and Plan Cultures: 07/21/2019 blood culture: No growth A/P: 19-year-old male with Down syndrome admitted with severe constipation and fecal impaction: 1) Septic shock: intra-abdominal source. s/p ex-lap on 07/23/2019, findings of multiple distinct areas of necrosis on transverse colon. Rest of intestines were normal. Gen. Surg following. 2) Acute renal failure: requiring dialysis. Renally dose abx. 3) Fecal impaction, colonic distention and shock: s/p ex-lap on 07/23/2019, findings of multiple distinct areas of necrosis on transverse colon. rest of intestines were normal. Gen. Surg following. 4) Acute respiratory failure: Intubated, on vent. Recs: Continue IV Cefepime, Flagyl, Fluconazole, duration will depend on final surgical source control planned for OR per Gen. Surg. remove femoral line when possible Meghan Williamson MD, FACP [facility] ([facility]) C: [phone] O: [phone] F: [phone] Subjective Date of service: 07/25/19 Principal diagnosis: Respiratory Failure Interval history: Remains intubated, sedated. Off pressors. Discussed with RN. Planned for OR tomorrow. Objective - Exam Narrative Exam: Physical Exam: Constitutional: sedated, intubated Head, Ears, Nose: Normocephalic, atraumatic. External ears, nose normal Eyes: Conjunctivae/corneas clear. No icterus. No ptosis. Neck: intubated Oral: intubated Cardiovascular: S1, S2 normal. Respiratory: Good air entry, clear to auscultation bilaterally GI: soft, WoundVAC +, bowel sounds absent Musculoskeletal: No pedal edema, no cyanosis. Femoral line present, dialysis catheter present Skin: No rash or abscess Hem/Lymphatic: No palpable cervical or supraclavicular nodes. No lymphangitis Psych: no agitation Neurological: sedated, intubated, on vent - Constitutional Vitals: Vital Signs Temp Pulse Resp BP Pulse Ox 98.6 F 95 H 23 114/64 98 07/25/19 08:00 07/25/19 11:42 07/25/19 11:30 07/25/19 11:30 07/25/19 11:30 Temperature -Last 24 Hours Temperature 98.6 F Temperature 99.8 F Temperature 99.8 F Temperature 98.9 F Temperature 98.9 F Temperature 98.7 F Temperature 98.6 F Temperature 98.0 F - Labs CBC & Chem 7: 07/25/19 04:45 07/25/19 04:45 Labs: Abnormal lab results 07/24/19 07/25/19 07/25/19 Range/Units 18:44 04:45 04:45 Plt Count 91 L (140-440) K/mm3 POC ABG pH 7.464 H (7.35-7.45) POC ABG pO2 125 H (80-105) ABG pO2 (80.0-90.0) mm Hg ABG O2 Saturation (95.0-99.0) % ABG Hemoglobin (14.0-18.0) gm/dl Oxyhemoglobin (95.0-99.0) % BUN 24 H (9-20) mg/dL Calcium 7.9 L (8.4-10.2) mg/dL Phosphorus 2.20 L (2.5-4.5) mg/dL 07/25/19 Range/Units 05:32 Plt Count (140-440) K/mm3 POC ABG pH (7.35-7.45) POC ABG pO2 (80-105) ABG pO2 70.6 L (80.0-90.0) mm Hg ABG O2 Saturation 94.7 L (95.0-99.0) % ABG Hemoglobin 12.0 L (14.0-18.0) gm/dl Oxyhemoglobin 92.8 L (95.0-99.0) % BUN (9-20) mg/dL Calcium (8.4-10.2) mg/dL Phosphorus (2.5-4.5) mg/dL
--- NOTE | 2019-07-25 13:54 | Progress Note ---
Assessment and Plan - Patient Problems (1) Ischemic necrosis of large intestine Current Visit: Yes Status: Acute Plan to address problem: Pt appears improved. s/p ex-lap with partial colon resection (07/23) - POD#2. continues to improve. Off Pressors! Tentative plan to return to OR on at 0800. Unable to do complete manual disimpaction. Will try another round of soap suds enema. Updated mother. She was appreciative. Please call with questions. Subjective Date of service: 07/25/19 Patient Reports: Positive: other (no new issues. ) Objective Vital Signs - 12hr 07/25/19 07/25/19 07/25/19 02:00 02:10 02:20 Temperature Pulse Rate 88 89 89 Pulse Rate [ From Monitor] Respiratory 20 20 20 Rate Blood Pressure 108/49 108/49 107/50 O2 Sat by Pulse 96 96 97 Oximetry 07/25/19 07/25/19 07/25/19 02:30 02:40 02:50 Temperature Pulse Rate 89 91 H 89 Pulse Rate [ From Monitor] Respiratory 20 20 20 Rate Blood Pressure 110/54 110/54 111/50 O2 Sat by Pulse 97 97 97 Oximetry 07/25/19 07/25/19 07/25/19 03:00 03:10 03:20 Temperature Pulse Rate 90 91 H 94 H Pulse Rate [ From Monitor] Respiratory 20 20 20 Rate Blood Pressure 112/51 112/51 108/57 O2 Sat by Pulse 96 96 97 Oximetry 07/25/19 07/25/19 07/25/19 03:30 03:40 03:50 Temperature Pulse Rate 91 H 91 H 88 Pulse Rate [ From Monitor] Respiratory 20 20 20 Rate Blood Pressure 110/55 110/55 107/53 O2 Sat by Pulse 97 97 97 Oximetry 07/25/19 07/25/19 07/25/19 04:00 04:10 04:20 Temperature 99.8 F H Pulse Rate 89 95 H 95 H Pulse Rate [ 98 H From Monitor] Respiratory 20 20 20 Rate Blood Pressure 104/54 104/54 113/58 O2 Sat by Pulse 97 98 98 Oximetry 07/25/19 07/25/19 07/25/19 04:30 04:40 04:49 Temperature Pulse Rate 87 92 H 92 H Pulse Rate [ From Monitor] Respiratory 20 20 Rate Blood Pressure 108/49 108/49 103/51 O2 Sat by Pulse 97 98 100 Oximetry 07/25/19 07/25/19 07/25/19 04:50 04:56 05:00 Temperature 99.8 F H Pulse Rate 87 89 Pulse Rate [ From Monitor] Respiratory 20 20 Rate Blood Pressure 103/51 106/51 O2 Sat by Pulse 98 97 Oximetry 07/25/19 07/25/19 07/25/19 05:10 05:20 05:30 Temperature Pulse Rate 95 H 99 H 92 H Pulse Rate [ From Monitor] Respiratory 20 18 20 Rate Blood Pressure 106/51 106/51 112/67 O2 Sat by Pulse 98 94 94 Oximetry 07/25/19 07/25/19 07/25/19 05:40 05:50 06:00 Temperature Pulse Rate 85 84 84 Pulse Rate [ From Monitor] Respiratory 21 19 20 Rate Blood Pressure 112/67 108/63 108/63 O2 Sat by Pulse 95 94 95 Oximetry 07/25/19 07/25/19 07/25/19 06:10 06:20 06:30 Temperature Pulse Rate 87 86 87 Pulse Rate [ From Monitor] Respiratory 17 20 17 Rate Blood Pressure 103/60 107/67 107/66 O2 Sat by Pulse 97 97 98 Oximetry 07/25/19 07/25/19 07/25/19 06:40 06:50 07:00 Temperature Pulse Rate 85 88 92 H Pulse Rate [ From Monitor] Respiratory 16 17 18 Rate Blood Pressure 107/66 106/66 106/66 O2 Sat by Pulse 97 97 98 Oximetry 07/25/19 07/25/19 07/25/19 07:10 07:20 07:30 Temperature Pulse Rate 92 H 89 89 Pulse Rate [ From Monitor] Respiratory 23 17 17 Rate Blood Pressure 117/69 108/67 111/65 O2 Sat by Pulse 98 97 97 Oximetry 07/25/19 07/25/19 07/25/19 07:40 07:50 08:00 Temperature 98.6 F Pulse Rate 87 88 84 Pulse Rate [ 92 H From Monitor] Respiratory 26 H 23 21 Rate Blood Pressure 111/65 110/65 108/65 O2 Sat by Pulse 96 96 96 Oximetry 07/25/19 07/25/19 07/25/19 08:07 08:10 08:20 Temperature Pulse Rate 84 85 91 H Pulse Rate [ From Monitor] Respiratory 20 22 Rate Blood Pressure 108/63 108/65 105/62 O2 Sat by Pulse 95 96 98 Oximetry 07/25/19 07/25/19 07/25/19 08:30 08:40 08:50 Temperature Pulse Rate 94 H 87 93 H Pulse Rate [ From Monitor] Respiratory 25 H 18 17 Rate Blood Pressure 114/70 114/70 109/66 O2 Sat by Pulse 97 97 97 Oximetry 07/25/19 07/25/19 07/25/19 09:00 09:10 09:20 Temperature Pulse Rate 87 85 82 Pulse Rate [ From Monitor] Respiratory 23 19 20 Rate Blood Pressure 109/64 109/64 108/62 O2 Sat by Pulse 97 97 97 Oximetry 07/25/19 07/25/19 07/25/19 09:30 09:40 09:50 Temperature Pulse Rate 82 86 77 Pulse Rate [ From Monitor] Respiratory 19 19 18 Rate Blood Pressure 104/58 104/58 101/60 O2 Sat by Pulse 97 97 97 Oximetry 07/25/19 07/25/19 07/25/19 10:00 10:10 10:20 Temperature Pulse Rate 96 H 96 H 88 Pulse Rate [ From Monitor] Respiratory 30 H 23 18 Rate Blood Pressure 113/65 113/65 112/61 O2 Sat by Pulse 96 98 98 Oximetry 07/25/19 07/25/19 07/25/19 10:30 10:40 10:50 Temperature Pulse Rate 89 88 90 Pulse Rate [ From Monitor] Respiratory 24 19 21 Rate Blood Pressure 108/65 108/65 113/63 O2 Sat by Pulse 97 97 98 Oximetry 07/25/19 07/25/19 07/25/19 11:00 11:10 11:20 Temperature Pulse Rate 91 H 88 88 Pulse Rate [ From Monitor] Respiratory 23 32 H 38 H Rate Blood Pressure 110/64 110/64 107/65 O2 Sat by Pulse 97 97 97 Oximetry 07/25/19 07/25/19 07/25/19 11:29 11:30 11:40 Temperature Pulse Rate 94 H 87 95 H Pulse Rate [ From Monitor] Respiratory 23 20 Rate Blood Pressure 114/70 114/64 114/64 O2 Sat by Pulse 97 98 98 Oximetry 07/25/19 07/25/19 07/25/19 11:42 11:50 12:00 Temperature 98.5 F Pulse Rate 95 H 93 H 97 H Pulse Rate [ 97 H From Monitor] Respiratory 17 24 Rate Blood Pressure 116/66 115/68 O2 Sat by Pulse 97 97 Oximetry 07/25/19 07/25/19 07/25/19 12:10 12:20 12:30 Temperature Pulse Rate 87 89 88 Pulse Rate [ From Monitor] Respiratory 28 H 17 19 Rate Blood Pressure 115/68 110/58 109/55 O2 Sat by Pulse 97 97 96 Oximetry 07/25/19 12:51 Temperature 98.1 F Pulse Rate Pulse Rate [ From Monitor] Respiratory Rate Blood Pressure O2 Sat by Pulse Oximetry - General physical appearance no distress, no pain, other (awake. ) - Respiratory normal expansion, normal respiratory effort - Abdomen soft, not distended, not guarding, not rigid, other (wound vac in place) - Rectum other (attempted to do manual disimpaction. Removed some stool. Rest was too high up. Stool was very soft. ) - Integumentary no rash, no growths, no abnormal pigmentation - Labs 07/25/19 04:45 07/25/19 04:45 Diabetes panel 07/25/19 Range/Units 04:45 Sodium 141 (137-145) mmol/L Potassium 4.3 (3.6-5.0) mmol/L Chloride 105.4 (98-107) mmol/L Carbon Dioxide 24 (22-30) mmol/L BUN 24 H (9-20) mg/dL Creatinine 0.9 (0.8-1.5) mg/dL Glucose 84 (75-100) mg/dL Calcium 7.9 L (8.4-10.2) mg/dL Calcium panel 07/25/19 Range/Units 04:45 Calcium 7.9 L (8.4-10.2) mg/dL Phosphorus 2.20 L (2.5-4.5) mg/dL Pituitary panel 07/25/19 Range/Units 04:45 Sodium 141 (137-145) mmol/L Potassium 4.3 (3.6-5.0) mmol/L Chloride 105.4 (98-107) mmol/L Carbon Dioxide 24 (22-30) mmol/L BUN 24 H (9-20) mg/dL Creatinine 0.9 (0.8-1.5) mg/dL Glucose 84 (75-100) mg/dL Calcium 7.9 L (8.4-10.2) mg/dL Adrenal panel 10/16/19 Range/Units 04:45 Sodium 141 (137-145) mmol/L Potassium 4.3 (3.6-5.0) mmol/L Chloride 105.4 (98-107) mmol/L Carbon Dioxide 24 (22-30) mmol/L BUN 24 H (9-20) mg/dL Creatinine 0.9 (0.8-1.5) mg/dL Glucose 84 (75-100) mg/dL Calcium 7.9 L (8.4-10.2) mg/dL
--- NOTE | 2019-07-25 14:18 | Progress Note ---
Assessment and Plan Assessment and plan: Patient is 19 yo with Downs syndrome from [facility] home. he initially presented with abdominal pain, nausea and vomiting. he was seen and examined in ED. CT Abd showed severe constipation. he was given Fleets enema, admitted. His BMP was WNL. By next day Cr was 2.2 and he had hyperkalemia of 5.3. Repeat hrs later showed worse Cr 2.2 and Potassium went up to 6.0. and he had developed shortness of breath, desaturation so was transferred to ICU. Acute resp failure now intubated, Rehab Therapy Manager following Ischemic Bowel, s/p ex lap and resection Surgeon following POD #2 Septic shock: intra-abdominal source. s/p ex-lap on 07/23/2019, Per surgery findings of multiple distinct areas of necrosis on transverse colon. Rest of intestines were normal. IV Cefepime, Flagyl, Fluconazole Discontinue femoral Line [place] due to ATN Nephrology following lactic acidosis Secondary to ischemic Bowel Hyperkalemia Gave calcium Carbonate Insulin/Dextrose discussed with Dr. West severe constipation resolved, now has diarrhea due to laxatives Severe diarrhea due to laxatives after presenting with constipation Sinus tachycardia due to dehydration Downs syndrome supportive care full code status Prognosis guarded The high probability of a clinically significant, sudden or life threatening deterioration of the [renal, GI,] system(s) required my full and direct attention, intervention and personal management. The aggregate critical care time was [35] minutes. This time is in addition to time spent performing reported procedures but includes the following: [x] Data Review and interpretation [x] Patient assessment and monitoring of vital signs [x] Documentation [x] Medication orders and management History Interval history: Patient seen and examined, remains intubated, Now off Pressor. No adverse event reported Hospitalist Physical - Physical exam Narrative exam: Gen: Ill looking, obese, intubated HEENT: Normocephalic, atraumatic, ETT in place Neck: supple, no JVD Heart: S1 and S2 reg, no murmurs, rubs or gallop Lungs: bilateral crackles, no wheeze Abd: soft, non tender,Wound Vac in place surgical wound not closed yet non distended, normal BS, Ext: No edema, no clubbing, no cyanosis Neuro: sedated but awakens off sedation, follows some command, no focal neurological signs,moves all ext - Constitutional Vitals: Temp Pulse Resp BP Pulse Ox 98.1 F 88 19 109/55 96 07/25/19 12:51 07/25/19 12:30 07/25/19 12:30 07/25/19 12:30 07/25/19 12:30 General appearance: Present: other (intubated) Results - Labs CBC & Chem 7: 07/25/19 04:45 07/25/19 04:45 Labs: Laboratory Last Values WBC 7.1 K/mm3 (4.5-11.0) 07/25/19 04:45 RBC 3.86 M/mm3 (3.65-5.03) 07/25/19 04:45 Hgb 12.0 gm/dl (11.8-15.2) 07/25/19 04:45 Hct 36.2 % (35.5-45.6) 07/25/19 04:45 MCV 94 fl (84-94) 07/25/19 04:45 MCH 31 pg (28-32) 07/25/19 04:45 MCHC 33 % (32-34) 07/25/19 04:45 RDW 15.2 % (13.2-15.2) 07/25/19 04:45 Plt Count 91 K/mm3 (140-440) L 07/25/19 04:45 Lymph % (Auto) 7.2 % (13.4-35.0) L 07/21/19 19:02 [place] % (Auto) [place] Mechanic 07/23/19 02:50 Eos % (Auto) 0.1 % (0.0-4.3) 07/21/19 19:02 Baso % (Auto) 0.3 % (0.0-1.8) 07/21/19 19:02 Lymph # 0.9 K/mm3 (1.2-5.4) L 07/21/19 19:02 [place] # 1.2 K/mm3 (0.0-0.8) H 07/21/19 19:02 Eos # 0.0 K/mm3 (0.0-0.4) 07/21/19 19:02 Baso # 0.0 K/mm3 (0.0-0.1) 07/21/19 19:02 Add Manual Diff Complete 07/24/19 05:37 Total Counted 100 07/24/19 05:37 Seg Neutrophils % 82.8 % (40.0-70.0) H 07/21/19 19:02 Seg Neuts % (Manual) 59.0 % (40.0-70.0) 07/24/19 05:37 Band Neutrophils % 25.0 % 07/24/19 05:37 Lymphocytes % (Manual) 5.0 % (13.4-35.0) L 07/24/19 05:37 Reactive Lymphs % (Man) 1.0 % 07/24/19 05:37 Monocytes % (Manual) 7.0 % (0.0-7.3) 07/24/19 05:37 Eosinophils % (Manual) 0 % (0.0-4.3) 07/24/19 05:37 Basophils % (Manual) 0 % (0.0-1.8) 07/24/19 05:37 Metamyelocytes % 3.0 % 07/24/19 05:37 Myelocytes % 0 % 07/24/19 05:37 Promyelocytes % 0 % 07/24/19 05:37 Blast Cells % 0 % 07/24/19 05:37 Nucleated RBC % Not Reportable 07/24/19 05:37 Seg Neutrophils # 10.0 K/mm3 (1.8-7.7) H 07/21/19 19:02 Seg Neutrophils # Man 6.3 K/mm3 (1.8-7.7) 07/24/19 05:37 Band Neutrophils # 2.7 K/mm3 07/24/19 05:37 Lymphocytes # (Manual) 0.5 K/mm3 (1.2-5.4) L 07/24/19 05:37 Abs React Lymphs (Man) 0.1 K/mm3 07/24/19 05:37 Monocytes # (Manual) 0.7 K/mm3 (0.0-0.8) 07/24/19 05:37 Eosinophils # (Manual) 0.0 K/mm3 (0.0-0.4) 07/24/19 05:37 Basophils # (Manual) 0.0 K/mm3 (0.0-0.1) 07/24/19 05:37 Metamyelocytes # 0.3 K/mm3 07/24/19 05:37 Myelocytes # 0.0 K/mm3 07/24/19 05:37 Promyelocytes # 0.0 K/mm3 07/24/19 05:37 Blast Cells # 0.0 K/mm3 07/24/19 05:37 WBC Morphology Not Reportable 07/24/19 05:37 Hypersegmented Neuts Not Reportable 07/24/19 05:37 Hyposegmented Neuts Not Reportable 07/24/19 05:37 Hypogranular Neuts Not Reportable 07/24/19 05:37 Smudge Cells Not Reportable 07/24/19 05:37 Toxic Granulation Not Reportable 07/24/19 05:37 Toxic Vacuolation Few 07/24/19 05:37 Dohle Bodies Not Reportable 07/24/19 05:37 Pelger-Huet Anomaly Not Reportable 07/24/19 05:37 Alea Rods Not Reportable 07/24/19 05:37 Platelet Estimate Consistent w auto 07/24/19 05:37 Clumped Platelets Not Reportable 07/24/19 05:37 Plt Clumps, EDTA Not Reportable 07/24/19 05:37 Large Platelets Few 07/24/19 05:37 Giant Platelets Not Reportable 07/24/19 05:37 Platelet Satelliting Not Reportable 07/24/19 05:37 Plt Morphology Comment Not Reportable 07/24/19 05:37 RBC Morphology Not Reportable 07/24/19 05:37 Dimorphic RBCs Not Reportable 07/24/19 05:37 Polychromasia Not Reportable 07/24/19 05:37 Hypochromasia Not Reportable 07/24/19 05:37 Poikilocytosis Not Reportable 07/24/19 05:37 Anisocytosis 1+ 07/24/19 05:37 Microcytosis Not Reportable 07/24/19 05:37 Macrocytosis Not Reportable 07/24/19 05:37 Spherocytes Not Reportable 07/24/19 05:37 Pappenheimer Bodies Not Reportable 07/24/19 05:37 Sickle Cells Not Reportable 07/24/19 05:37 Target Cells Not Reportable 07/24/19 05:37 Tear Drop Cells Not Reportable 07/24/19 05:37 Ovalocytes Not Reportable 07/24/19 05:37 Helmet Cells Not Reportable 07/24/19 05:37 [place] Bodies Not Reportable 07/24/19 05:37 Fisher Rings Not Reportable 07/24/19 05:37 [place] Cells Not Reportable 07/24/19 05:37 Bite Cells Not Reportable 07/24/19 05:37 Crenated Cell Not Reportable 07/24/19 05:37 Elliptocytes Not Reportable 07/24/19 05:37 Acanthocytes (Spur) Not Reportable 07/24/19 05:37 Rouleaux Not Reportable 07/24/19 05:37 Hemoglobin C Crystals Not Reportable 07/24/19 05:37 Schistocytes Not Reportable 07/24/19 05:37 Malaria parasites Not Reportable 07/24/19 05:37 Emanuel Bodies Not Reportable 07/24/19 05:37 Hem Pathologist Commnt No 07/24/19 05:37 D-Dimer 886.89 ng/mlDDU (0-234) H 07/22/19 21:45 POC ABG pH 7.464 (7.35-7.45) H 07/24/19 18:44 ABG pH 7.408 pH Units (7.350-7.450) 07/25/19 05:32 POC ABG pCO2 36.2 (35-45) 07/24/19 18:44 ABG pCO2 42.1 mm Hg 07/25/19 05:32 POC ABG pO2 125 (80-105) H 07/24/19 18:44 ABG pO2 70.6 mm Hg (80.0-90.0) L 07/25/19 05:32 POC ABG HCO3 26.0 (22-26 mml/L) 07/24/19 18:44 ABG HCO3 26.0 mmol/L (20.0-26.0) 07/25/19 05:32 POC ABG Total CO2 27 (23-27mmol/L) 07/24/19 18:44 POC ABG O2 Sat 99 07/24/19 18:44 ABG O2 Saturation 94.7 % (95.0-99.0) L 07/25/19 05:32 ABG O2 Content 15.7 (0.0-44) 07/25/19 05:32 POC ABG Base Excess 2 ((-2) - (+3)mmol/L) 07/24/19 18:44 ABG Base Excess 1.1 mmol/L (-2.0-3.0) 07/25/19 05:32 ABG Hemoglobin 12.0 gm/dl (14.0-18.0) L 07/25/19 05:32 ABG Carboxyhemoglobin 1.5 % (0.0-5.0) 07/25/19 05:32 ABG Methemoglobin 0.6 % (0.0-1.5) 07/25/19 05:32 Oxyhemoglobin 92.8 % (95.0-99.0) L 07/25/19 05:32 FiO2 30 % 07/25/19 05:32 Sodium 141 mmol/L (137-145) 07/25/19 04:45 Potassium 4.3 mmol/L (3.6-5.0) 07/25/19 04:45 Chloride 105.4 mmol/L (98-107) 07/25/19 04:45 Carbon Dioxide 24 mmol/L (22-30) 07/25/19 04:45 Anion Gap 16 mmol/L 07/25/19 04:45 BUN 24 mg/dL (9-20) H 07/25/19 04:45 Creatinine 0.9 mg/dL (0.8-1.5) 07/25/19 04:45 Estimated GFR > 60 ml/min 07/25/19 04:45 BUN/Creatinine Ratio 27 % 07/25/19 04:45 Glucose 84 mg/dL (75-100) 07/25/19 04:45 POC Glucose 80 (70-105) 07/25/19 14:08 Lactic Acid 1.10 mmol/L (0.7-2.0) 07/25/19 09:16 Calcium 7.9 mg/dL (8.4-10.2) L 07/25/19 04:45 Phosphorus 2.20 mg/dL (2.5-4.5) L 07/25/19 04:45 Magnesium 2.20 mg/dL (1.7-2.3) 07/24/19 05:37 Total Bilirubin 1.40 mg/dL (0.1-1.2) H 07/24/19 05:37 Direct Bilirubin 0.2 mg/dL (0-0.2) 07/21/19 19:02 Indirect Bilirubin 0.4 mg/dL 07/21/19 19:02 AST 107 units/L (5-40) H 07/24/19 05:37 ALT 45 units/L (7-56) 07/24/19 05:37 Alkaline Phosphatase 49 units/L (35-129) 07/24/19 05:37 Ammonia 39.0 umol/L (25-60) 07/23/19 02:50 Troponin T < 0.010 ng/mL (0.00-0.029) 07/22/19 15:33 NT-Pro-B Natriuret Pep 5407 pg/mL (0-450) H 07/22/19 21:45 Total Protein 5.3 g/dL (6.3-8.2) L 07/24/19 05:37 Albumin 2.5 g/dL (3.9-5) L 07/24/19 05:37 Albumin/Globulin Ratio 0.9 % 07/24/19 05:37 Lipase 10 units/L (13-60) L 07/21/19 19:02 TSH 0.888 mlU/mL (0.270-4.200) 07/23/19 13:06 Free T4 1.04 ng/dL (0.76-1.46) 07/23/19 13:06 Urine Color Emy (Yellow) 07/21/19 21:36 Urine Turbidity Clear (Clear) 07/21/19 21:36 Urine pH 5.0 (5.0-7.0) 07/21/19 21:36 Ur Specific [place] 1.024 (1.003-1.030) 07/21/19 21:36 Urine Protein <15 mg/dl mg/dL (Negative) 07/21/19 21:36 Urine Glucose (UA) Neg mg/dL (Negative) 07/21/19 21:36 Urine Ketones Neg mg/dL (Negative) 07/21/19 21:36 Urine Blood Neg (Negative) 07/21/19 21:36 Urine Nitrite Neg (Negative) 07/21/19 21:36 Urine Bilirubin Sm (Negative) 07/21/19 21:36 Urine Ictotest Negative (Negative) 07/21/19 21:36 Urine Urobilinogen 4.0 mg/dL (<2.0) 07/21/19 21:36 Ur Leukocyte Esterase Neg (Negative) 07/21/19 21:36 Urine WBC (Auto) 1.0 /HPF (0.0-6.0) 07/21/19 21:36 Urine RBC (Auto) 1.0 /HPF (0.0-6.0) 07/21/19 21:36 U Epithel Cells (Auto) < 1.0 /HPF (0-13.0) 07/21/19 21:36 Urine Mucus Few /HPF 07/21/19 21:36 Hepatitis A IgM Ab Non-reactive (NonReactive) 07/23/19 13:06 Hep Bs Antigen Non-reactive (Negative) 07/23/19 13:06 Hep B Core IgM Ab Non-reactive (NonReactive) 07/23/19 13:06 Hepatitis C Antibody Non-reactive (NonReactive) 07/23/19 13:06 Blood Type A POSITIVE 07/23/19 13:06 Antibody Screen Negative 07/23/19 13:06 Active Medications - Current Medications Current Medications: Generic Name Dose Route Start Last Admin Trade Name Freq PRN Reason Stop Dose Admin Acetaminophen 650 mg 07/23/19 02:48 Tylenol VT Q4H PRN Fever >100.5 Albumin Human 25 gm 07/23/19 13:11 Alburx 25% (Albumin) IV DIOR PRN Hypotension Bisacodyl 10 mg 07/21/19 22:25 Dulcolax PO QDAY PRN Constipation Famotidine 20 mg 07/24/19 10:00 07/25/19 09:40 Pepcid IV 20 mg BID STEPHEN Administration Phenylephrine HCl 100 mg/ 100 mls @ 3 mls/hr 07/23/19 02:45 07/24/19 21:31 Sodium Chloride IV 0 mcg/min TITR STEPHEN 0 mls/hr Titration Protocol 50 MCG/MIN Vasopressin 20 unit/ Sodium 101 mls @ 9.09 mls/hr 07/23/19 10:00 07/25/19 09:44 Chloride IV Infused TITR STEPHEN Titration Protocol 0.03 UNITS/MIN Norepinephrine 8 mg/ Sodium 250 mls @ 3.75 mls/hr 07/23/19 12:00 07/23/19 13:08 Chloride IV 0 mcg/min TITR STEPHEN 0 mls/hr Titration Protocol 2 MCG/MIN Fentanyl Citrate 2,000 mcg in 100 mls @ 5.557 mls/hr 07/23/19 12:00 07/25/19 01:31 Fentanyl Drip Premix IV 2 mcg/kg/hr TITR STEPHEN 11.113 mls/hr Administration Protocol 1 MCG/KG/HR Cefepime HCl 2 gm in 100 mls @ 200 mls/hr 07/23/19 16:00 07/25/19 04:48 Maxipime/Ns 2 Gm/100 Ml IV 200 mls/hr Q12H STEPHEN Administration Protocol Metronidazole 500 mg in 100 mls @ 100 mls/hr 07/23/19 16:00 07/25/19 13:53 Flagyl 500 Mg/100 Ml IV 100 mls/hr Q8HR STEPHEN Administration Protocol Valproate Sodium 500 mg/ 105 mls @ 100 mls/hr 07/24/19 10:00 07/25/19 09:40 Sodium Chloride IV 100 mls/hr Q12HR STEPHEN Administration Sodium Chloride 1,000 mls @ 200 mls/hr 07/24/19 10:00 07/25/19 13:57 Nacl 0.9% 1000 Ml IV 200 mls/hr DIRECT STEPHEN Administration Fluconazole 200 mg in 100 mls @ 100 mls/hr 07/25/19 10:00 07/25/19 09:40 Diflucan IV 100 mls/hr Q24HR STEPHEN Administration Protocol Ondansetron HCl 4 mg 07/21/19 22:25 07/22/19 01:07 Zofran IV 4 mg Q8H PRN Administration Nausea And Vomiting Nutrition/Malnutrition Assess - Dietary Evaluation Nutrition/Malnutrition Findings: Nutrition Notes Start: 07/23/19 10:09 Freq: Status: Active Protocol: Document 07/25/19 11:02 RS (Rec: 07/25/19 11:50 RS [id number]) Co-Sign 07/25/19 11:02 LM Nutrition Notes Initial or Follow up Reassessment Other Pertinent Diagnosis Abdominal pain, Down Syndrome, intractable N/V/C, Chronic dilated colon Current Diet NPO Labs/Tests reviewed Pertinent Medications reviewed Height 5 ft 7 in Weight 144.9 kg [place] Body Weight (kg) 67.27 BMI 50.0 Weight change and time frame correct wt obtained from [facility] Weight Status Obese Subjective/Other Information Pt still NPO d/t upcoming bowel surgery tomorrow. Per chart TPN may be considered. Will F/U for diet advancement. Correct wt obtained. Pt remains on vent. Burn Absent Trauma Absent GI Symptoms Nausea,Vomiting,Constipation Minimum of two criteria No physical signs of malnutrition #1 Nutrition Diagnosis Inadequate oral intake Diagnosis Progress(for reassessment Continues documentation) Is patient on ventilator? Yes Is Patient Ambulatory and/or Out of Bed No REE-([employer] or-confined to bed) 2895.432 Kcal/Kg value to use for calculation 16 Approximate Energy Requirements Using 2318 kcal/Kg Calculation Used for Recommendations Kcal/kg Additional Notes Pro needs 2g/kg IBW: 135g/day Fluid needs 1ml/kcal Nutrition Intervention Change Diet Order: Advance diet when medically feasible Goal #1 Diet advancement to meet nutrient needs Anticipated Discharge Needs: Unable to identify at this time Follow-Up By: 07/27/19 Additional Comments F/U for diet advancement and POC - Attestation Statement I have reviewed and agreed w/ Malnutrition eval & tx plan: Yes
[2019-07-25] MEDS ORDERED: FLEET ENEMA PR ONE (20:00)
[2019-07-25] MEDS ORDERED: ENOXAPARIN 40 MG/0.4 ML INJ SUB-Q SCH (22:00)
--- NOTE | 2019-07-25 22:27 | Progress Note ---
Assessment and Plan Imp: 1. Constipation -> now diarrhea after laxatives 2. Sepsis, 2/2 bowel necrosis 3. [place], ? contrast-induced + sepsis 4. Hyperkalemia 2/2 #3 5. Obesity 6. Acute respiratory failure, hypoxia/hypercapnea 7. Lactic acidosis, resolved 8. Thrombocytopenia, probably due to sepsis + Vanco/Zosyn Rec: 1. ABX per ID 2. Off pressors; lactate normalized 3. Holding HD 4. LE dopplers negative; D-dimer likely elevated due to sepsis; PE unlikely; hol d off on V/Q for now 5. For completion colectomy ; leave intubated until then 6. NGT to LIWS 7. Fentanyl drip 8. Consider starting TPN soon 9. PICC line and remove femoral line 10. Monitor platelets; HIT has been ordered 11. Complex decision-making Plan of care reviewed w/ mother, she understands/agrees Subjective Date of service: 07/25/19 Principal diagnosis: Respiratory Failure Interval history: No events. Off pressors. Sedated on Fentanyl but he arouses and follows commands. Active Medications Acetaminophen (Tylenol) 650 mg TX Q4H PRN PRN Reason: Fever >100.5 Albumin Human (Alburx 25% (Albumin)) 25 gm IV DIOR PRN PRN Reason: Hypotension Bisacodyl (Dulcolax) 10 mg PO QDAY PRN PRN Reason: Constipation Famotidine (Pepcid) 20 mg IV BID STEPHEN Last Admin: 07/25/19 21:16 Dose: 20 mg Documented by: Phenylephrine HCl 100 mg/ (Sodium Chloride) 100 mls @ 3 mls/hr IV TITR STEPHEN; Protocol Last Titration: 07/24/19 21:31 Dose: 0 mcg/min, 0 mls/hr Documented by: Vasopressin 20 unit/ Sodium (Chloride) 101 mls @ 9.09 mls/hr IV TITR STEPHEN; Protocol Last Titration: 07/25/19 09:44 Dose: Infused Documented by: Norepinephrine 8 mg/ Sodium (Chloride) 250 mls @ 3.75 mls/hr IV TITR STEPHEN; Protocol Last Titration: 07/23/19 13:08 Dose: 0 mcg/min, 0 mls/hr Documented by: Fentanyl Citrate (Fentanyl Drip Premix) 2,000 mcg in 100 mls @ 5.557 mls/hr IV TITR STEPHEN; Protocol Last Admin: 07/25/19 15:15 Dose: 2 mcg/kg/hr, 11.113 mls/hr Documented by: Cefepime HCl (Maxipime/Ns 2 Gm/100 Ml) 2 gm in 100 mls @ 200 mls/hr IV Q12H STEPHEN; Protocol Last Admin: 07/25/19 15:16 Dose: 200 mls/hr Documented by: Metronidazole (Flagyl 500 Mg/100 Ml) 500 mg in 100 mls @ 100 mls/hr IV Q8HR STEPHEN; Protocol Last Admin: 07/25/19 21:16 Dose: 100 mls/hr Documented by: Valproate Sodium 500 mg/ (Sodium Chloride) 105 mls @ 100 mls/hr IV Q12HR STEPHEN Last Admin: 07/25/19 21:17 Dose: 100 mls/hr Documented by: Sodium Chloride (Nacl 0.9% 1000 Ml) 1,000 mls @ 200 mls/hr IV DIRECT STEPHEN Last Admin: 07/25/19 20:46 Dose: 200 mls/hr Documented by: Fluconazole (Diflucan) 200 mg in 100 mls @ 100 mls/hr IV Q24HR STEPHEN; Protocol Last Admin: 07/25/19 09:40 Dose: 100 mls/hr Documented by: Ondansetron HCl (Zofran) 4 mg IV Q8H PRN PRN Reason: Nausea And Vomiting Last Admin: 07/22/19 01:07 Dose: 4 mg Documented by: Objective Vital Signs - 12hr 07/25/19 07/25/19 07/25/19 10:30 10:40 10:50 Temperature Pulse Rate 89 88 90 Pulse Rate [ From Monitor] Respiratory 24 19 21 Rate Blood Pressure 108/65 108/65 113/63 O2 Sat by Pulse 97 97 98 Oximetry 07/25/19 07/25/19 07/25/19 11:00 11:10 11:20 Temperature Pulse Rate 91 H 88 88 Pulse Rate [ From Monitor] Respiratory 23 32 H 38 H Rate Blood Pressure 110/64 110/64 107/65 O2 Sat by Pulse 97 97 97 Oximetry 07/25/19 07/25/19 07/25/19 11:29 11:30 11:40 Temperature Pulse Rate 94 H 87 95 H Pulse Rate [ From Monitor] Respiratory 23 20 Rate Blood Pressure 114/70 114/64 114/64 O2 Sat by Pulse 97 98 98 Oximetry 07/25/19 07/25/19 07/25/19 11:42 11:50 12:00 Temperature 98.5 F Pulse Rate 95 H 93 H 97 H Pulse Rate [ 97 H From Monitor] Respiratory 17 24 Rate Blood Pressure 116/66 115/68 O2 Sat by Pulse 97 97 Oximetry 07/25/19 07/25/19 07/25/19 12:10 12:20 12:30 Temperature Pulse Rate 87 89 88 Pulse Rate [ From Monitor] Respiratory 28 H 17 19 Rate Blood Pressure 115/68 110/58 109/55 O2 Sat by Pulse 97 97 96 Oximetry 07/25/19 07/25/19 07/25/19 12:40 12:50 12:51 Temperature 98.1 F Pulse Rate 88 88 Pulse Rate [ From Monitor] Respiratory 16 21 Rate Blood Pressure 109/55 103/56 O2 Sat by Pulse 96 96 Oximetry 07/25/19 07/25/19 07/25/19 13:00 13:10 13:20 Temperature Pulse Rate 86 88 89 Pulse Rate [ From Monitor] Respiratory 26 H 20 20 Rate Blood Pressure 109/56 109/56 109/57 O2 Sat by Pulse 96 97 96 Oximetry 07/25/19 07/25/19 07/25/19 13:30 13:40 13:50 Temperature Pulse Rate 87 105 H 100 H Pulse Rate [ From Monitor] Respiratory 22 25 H 19 Rate Blood Pressure 109/56 109/56 117/67 O2 Sat by Pulse 96 98 94 Oximetry 07/25/19 07/25/19 07/25/19 14:00 14:10 14:20 Temperature Pulse Rate 92 H 92 H 90 Pulse Rate [ From Monitor] Respiratory 20 28 H 26 H Rate Blood Pressure 107/59 107/59 113/61 O2 Sat by Pulse 96 96 95 Oximetry 07/25/19 07/25/19 07/25/19 14:30 14:40 14:50 Temperature Pulse Rate 90 90 91 H Pulse Rate [ From Monitor] Respiratory 23 26 H 14 Rate Blood Pressure 108/60 108/60 108/62 O2 Sat by Pulse 93 96 96 Oximetry 07/25/19 07/25/19 07/25/19 15:00 15:10 15:20 Temperature Pulse Rate 92 H 87 92 H Pulse Rate [ From Monitor] Respiratory 18 18 24 Rate Blood Pressure 105/66 105/66 108/62 O2 Sat by Pulse 95 95 96 Oximetry 07/25/19 07/25/19 07/25/19 15:30 15:40 15:50 Temperature Pulse Rate 89 93 H 99 H Pulse Rate [ From Monitor] Respiratory 21 21 30 H Rate Blood Pressure 112/63 105/66 109/64 O2 Sat by Pulse 95 95 94 Oximetry 07/25/19 07/25/19 07/25/19 16:00 16:10 16:20 Temperature 97.9 F Pulse Rate 100 H 95 H 104 H Pulse Rate [ 100 H From Monitor] Respiratory 21 20 28 H Rate Blood Pressure 112/73 112/73 118/68 O2 Sat by Pulse 95 96 95 Oximetry 07/25/19 07/25/19 07/25/19 16:30 16:40 16:50 Temperature Pulse Rate 104 H 96 H 100 H Pulse Rate [ From Monitor] Respiratory 18 18 19 Rate Blood Pressure 113/65 118/68 105/75 O2 Sat by Pulse 93 95 96 Oximetry 07/25/19 07/25/19 07/25/19 16:59 17:00 17:11 Temperature Pulse Rate 99 H 107 H 108 H Pulse Rate [ From Monitor] Respiratory 13 19 Rate Blood Pressure 109/64 105/75 122/74 O2 Sat by Pulse 94 89 95 Oximetry 07/25/19 07/25/19 07/25/19 17:21 17:30 17:40 Temperature Pulse Rate 99 H 87 91 H Pulse Rate [ From Monitor] Respiratory 18 14 18 Rate Blood Pressure 132/83 116/74 116/74 O2 Sat by Pulse 96 96 97 Oximetry 07/25/19 07/25/19 07/25/19 17:50 18:00 18:10 Temperature Pulse Rate 97 H 88 99 H Pulse Rate [ From Monitor] Respiratory 16 18 18 Rate Blood Pressure 121/74 119/71 119/71 O2 Sat by Pulse 96 98 97 Oximetry 07/25/19 07/25/19 07/25/19 18:20 18:30 18:40 Temperature Pulse Rate 86 90 121 H Pulse Rate [ From Monitor] Respiratory 17 18 23 Rate Blood Pressure 123/74 119/71 119/71 O2 Sat by Pulse 98 98 72 L Oximetry 07/25/19 07/25/19 07/25/19 18:50 19:00 19:10 Temperature Pulse Rate 103 H 93 H 91 H Pulse Rate [ From Monitor] Respiratory 18 19 18 Rate Blood Pressure 140/87 128/77 128/77 O2 Sat by Pulse 100 100 100 Oximetry 07/25/19 07/25/19 07/25/19 19:20 19:30 19:40 Temperature Pulse Rate 91 H 90 89 Pulse Rate [ From Monitor] Respiratory 18 19 18 Rate Blood Pressure 128/79 126/77 126/77 O2 Sat by Pulse 100 100 100 Oximetry 07/25/19 07/25/19 07/25/19 19:43 19:50 20:00 Temperature 98.8 F Pulse Rate 90 87 108 H Pulse Rate [ 88 From Monitor] Respiratory 17 19 Rate Blood Pressure 126/77 127/75 136/81 O2 Sat by Pulse 100 100 100 Oximetry 07/25/19 07/25/19 07/25/19 20:10 20:20 20:30 Temperature Pulse Rate 88 85 88 Pulse Rate [ From Monitor] Respiratory 18 18 19 Rate Blood Pressure 136/81 126/74 128/73 O2 Sat by Pulse 100 100 100 Oximetry 07/25/19 20:38 Temperature 98.8 F Pulse Rate Pulse Rate [ From Monitor] Respiratory Rate Blood Pressure O2 Sat by Pulse Oximetry Constitutional: other (obese, sedated, critically ill on ventilator) Eyes: non-icteric ENT: oropharynx moist Neck: supple Effort: normal Ascultation: Bilateral: diminished breath sounds (due to obesity) Cardiovascular: other (sinus tachy, no mrg, regular rhythm) Gastrointestinal: normoactive bowel sounds, soft, other (morbidly obese abd) Integumentary: normal Extremities: no cyanosis, no edema, pink and warm Neurologic: normal mental status, non-focal exam, pupils equal and round Psychiatric: mood appropriate, affect normal CBC and BMP: 07/25/19 04:45 07/25/19 04:45 ABG, PT/INR, D-dimer: ABG POC ABG pH 7.464 (7.35-7.45) H 07/24/19 18:44 ABG pH 7.408 pH Units (7.350-7.450) 07/25/19 05:32 POC ABG pCO2 36.2 (35-45) 07/24/19 18:44 ABG pCO2 42.1 mm Hg 07/25/19 05:32 POC ABG pO2 125 (80-105) H 07/24/19 18:44 ABG pO2 70.6 mm Hg (80.0-90.0) L 07/25/19 05:32 POC ABG HCO3 26.0 (22-26 mml/L) 07/24/19 18:44 POC ABG Total CO2 27 (23-27mmol/L) 07/24/19 18:44 POC ABG O2 Sat 99 07/24/19 18:44 ABG O2 Saturation 94.7 % (95.0-99.0) L 07/25/19 05:32 PT/INR, D-dimer D-Dimer 886.89 ng/mlDDU (0-234) H 07/22/19 21:45 Abnormal lab findings: Abnormal Labs 07/21/19 07/21/19 07/22/19 19:02 19:02 10:50 WBC 12.1 H 13.7 H RBC 5.56 H Hgb 17.1 H Hct 52.9 H D MCV 95 H 95 H Plt Count 130 L 137 L Lymph % (Auto) 7.2 L [place] % (Auto) 9.6 H Lymph # 0.9 L [place] # 1.2 H Seg Neutrophils % 82.8 H Lymphocytes % (Manual) Monocytes % (Manual) Seg Neutrophils # 10.0 H Lymphocytes # (Manual) Monocytes # (Manual) D-Dimer POC ABG pH POC ABG pCO2 POC ABG pO2 ABG pO2 ABG O2 Saturation ABG Hemoglobin Oxyhemoglobin Sodium 136 L Potassium Chloride 95.9 L Carbon Dioxide BUN Creatinine Glucose 163 H POC Glucose Lactic Acid Calcium Phosphorus Magnesium Total Bilirubin AST NT-Pro-B Natriuret Pep Total Protein Albumin Lipase 10 L 07/22/19 07/22/19 07/22/19 10:50 15:33 15:33 WBC 13.1 H RBC 5.10 H Hgb 15.9 H Hct 49.0 H MCV 96 H Plt Count 127 L Lymph % (Auto) [place] % (Auto) Lymph # [place] # Seg Neutrophils % Lymphocytes % (Manual) Monocytes % (Manual) Seg Neutrophils # Lymphocytes # (Manual) Monocytes # (Manual) D-Dimer POC ABG pH POC ABG pCO2 POC ABG pO2 ABG pO2 ABG O2 Saturation ABG Hemoglobin Oxyhemoglobin Sodium 136 L Potassium 5.3 H D 6.0 H Chloride 96.7 L Carbon Dioxide 17 L BUN 22 H 29 H Creatinine 2.0 H D 2.2 H Glucose 129 H 121 H POC Glucose Lactic Acid Calcium 8.2 L Phosphorus 4.70 H Magnesium 3.10 H Total Bilirubin AST NT-Pro-B Natriuret Pep Total Protein Albumin Lipase 07/22/19 07/22/19 07/22/19 18:19 18:42 21:45 WBC RBC Hgb Hct MCV Plt Count Lymph % (Auto) [place] % (Auto) Lymph # [place] # Seg Neutrophils % Lymphocytes % (Manual) Monocytes % (Manual) Seg Neutrophils # Lymphocytes # (Manual) Monocytes # (Manual) D-Dimer 886.89 H POC ABG pH 7.197 L POC ABG pCO2 45.2 H POC ABG pO2 ABG pO2 ABG O2 Saturation ABG Hemoglobin Oxyhemoglobin Sodium Potassium Chloride Carbon Dioxide BUN Creatinine Glucose POC Glucose 107 H Lactic Acid Calcium Phosphorus Magnesium Total Bilirubin AST NT-Pro-B Natriuret Pep Total Protein Albumin Lipase 07/22/19 07/22/19 07/22/19 21:45 21:45 21:45 WBC RBC Hgb Hct MCV Plt Count Lymph % (Auto) [place] % (Auto) Lymph # [place] # Seg Neutrophils % Lymphocytes % (Manual) Monocytes % (Manual) Seg Neutrophils # Lymphocytes # (Manual) Monocytes # (Manual) D-Dimer POC ABG pH POC ABG pCO2 POC ABG pO2 ABG pO2 ABG O2 Saturation ABG Hemoglobin Oxyhemoglobin Sodium 136 L Potassium 5.6 H Chloride Carbon Dioxide 20 L BUN 38 H Creatinine 2.6 H Glucose 63 L POC Glucose Lactic Acid 3.10 H* Calcium 8.2 L Phosphorus Magnesium Total Bilirubin AST NT-Pro-B Natriuret Pep 5407 H Total Protein Albumin Lipase 07/23/19 07/23/19 07/23/19 02:11 02:50 02:50 WBC 15.0 H RBC Hgb Hct MCV 95 H Plt Count 118 L Lymph % (Auto) [place] % (Auto) Lymph # [place] # Seg Neutrophils % Lymphocytes % (Manual) 9.0 L Monocytes % (Manual) 17.0 H Seg Neutrophils # Lymphocytes # (Manual) Monocytes # (Manual) 2.6 H D-Dimer POC ABG pH POC ABG pCO2 POC ABG pO2 ABG pO2 ABG O2 Saturation ABG Hemoglobin Oxyhemoglobin Sodium Potassium Chloride Carbon Dioxide BUN Creatinine Glucose POC Glucose 69 L Lactic Acid 3.30 H* Calcium Phosphorus Magnesium Total Bilirubin AST NT-Pro-B Natriuret Pep Total Protein Albumin Lipase 07/23/19 07/23/19 07/23/19 02:50 03:09 04:30 WBC RBC Hgb Hct MCV Plt Count Lymph % (Auto) [place] % (Auto) Lymph # [place] # Seg Neutrophils % Lymphocytes % (Manual) Monocytes % (Manual) Seg Neutrophils # Lymphocytes # (Manual) Monocytes # (Manual) D-Dimer POC ABG pH 7.296 L POC ABG pCO2 POC ABG pO2 66 L ABG pO2 ABG O2 Saturation ABG Hemoglobin Oxyhemoglobin Sodium 134 L Potassium 7.5 H* D Chloride Carbon Dioxide 21 L BUN 47 H Creatinine 2.7 H Glucose POC Glucose Lactic Acid 3.50 H* Calcium 7.6 L Phosphorus Magnesium 2.90 H Total Bilirubin AST 60 H NT-Pro-B Natriuret Pep Total Protein 5.5 L D Albumin 2.5 L Lipase 07/23/19 07/23/19 07/23/19 07:30 09:03 09:03 WBC RBC Hgb Hct MCV Plt Count Lymph % (Auto) [place] % (Auto) Lymph # [place] # Seg Neutrophils % Lymphocytes % (Manual) Monocytes % (Manual) Seg Neutrophils # Lymphocytes # (Manual) Monocytes # (Manual) D-Dimer POC ABG pH POC ABG pCO2 POC ABG pO2 ABG pO2 ABG O2 Saturation ABG Hemoglobin Oxyhemoglobin Sodium 136 L Potassium 6.6 H* 7.1 H* Chloride Carbon Dioxide 20 L BUN 50 H 49 H Creatinine 2.6 H 2.4 H Glucose 67 L POC Glucose Lactic Acid 4.10 H* Calcium 7.6 L 7.7 L Phosphorus Magnesium Total Bilirubin AST NT-Pro-B Natriuret Pep Total Protein Albumin Lipase 07/23/19 07/23/19 07/23/19 10:52 13:13 14:48 WBC RBC Hgb Hct MCV Plt Count Lymph % (Auto) [place] % (Auto) Lymph # [place] # Seg Neutrophils % Lymphocytes % (Manual) Monocytes % (Manual) Seg Neutrophils # Lymphocytes # (Manual) Monocytes # (Manual) D-Dimer POC ABG pH 7.280 L POC ABG pCO2 48.7 H POC ABG pO2 ABG pO2 ABG O2 Saturation ABG Hemoglobin Oxyhemoglobin Sodium Potassium Chloride Carbon Dioxide BUN Creatinine Glucose POC Glucose 123 H Lactic Acid 4.10 H* Calcium Phosphorus Magnesium Total Bilirubin AST NT-Pro-B Natriuret Pep Total Protein Albumin Lipase 07/23/19 07/23/19 07/23/19 15:56 17:35 Unknown WBC RBC Hgb Hct MCV Plt Count Lymph % (Auto) [place] % (Auto) Lymph # [place] # Seg Neutrophils % Lymphocytes % (Manual) Monocytes % (Manual) Seg Neutrophils # Lymphocytes # (Manual) Monocytes # (Manual) D-Dimer POC ABG pH POC ABG pCO2 POC ABG pO2 ABG pO2 ABG O2 Saturation ABG Hemoglobin Oxyhemoglobin Sodium Potassium Chloride Carbon Dioxide BUN Creatinine Glucose POC Glucose Lactic Acid 3.00 H* 4.10 H* 4.90 H* Calcium Phosphorus Magnesium Total Bilirubin AST NT-Pro-B Natriuret Pep Total Protein Albumin Lipase 07/23/19 07/24/19 07/24/19 Unknown 00:05 00:40 WBC RBC Hgb Hct MCV Plt Count Lymph % (Auto) [place] % (Auto) Lymph # [place] # Seg Neutrophils % Lymphocytes % (Manual) Monocytes % (Manual) Seg Neutrophils # Lymphocytes # (Manual) Monocytes # (Manual) D-Dimer POC ABG pH POC ABG pCO2 POC ABG pO2 ABG pO2 151.3 H ABG O2 Saturation ABG Hemoglobin Oxyhemoglobin Sodium Potassium 5.6 H D Chloride Carbon Dioxide BUN 29 H Creatinine Glucose 128 H POC Glucose 118 H Lactic Acid Calcium 7.4 L Phosphorus Magnesium Total Bilirubin AST NT-Pro-B Natriuret Pep Total Protein Albumin Lipase 07/24/19 07/24/19 07/24/19 04:00 05:37 05:37 WBC RBC Hgb Hct MCV Plt Count 89 L Lymph % (Auto) [place] % (Auto) Lymph # [place] # Seg Neutrophils % Lymphocytes % (Manual) 5.0 L Monocytes % (Manual) Seg Neutrophils # Lymphocytes # (Manual) 0.5 L Monocytes # (Manual) D-Dimer POC ABG pH POC ABG pCO2 POC ABG pO2 ABG pO2 ABG O2 Saturation ABG Hemoglobin Oxyhemoglobin Sodium Potassium Chloride Carbon Dioxide BUN 29 H Creatinine Glucose 120 H POC Glucose 123 H Lactic Acid Calcium 7.4 L Phosphorus 2.30 L D Magnesium Total Bilirubin 1.40 H AST 107 H NT-Pro-B Natriuret Pep Total Protein 5.3 L Albumin 2.5 L Lipase 07/24/19 07/24/19 07/24/19 05:37 10:18 18:44 WBC RBC Hgb Hct MCV Plt Count Lymph % (Auto) [place] % (Auto) Lymph # [place] # Seg Neutrophils % Lymphocytes % (Manual) Monocytes % (Manual) Seg Neutrophils # Lymphocytes # (Manual) Monocytes # (Manual) D-Dimer POC ABG pH 7.464 H POC ABG pCO2 POC ABG pO2 125 H ABG pO2 ABG O2 Saturation ABG Hemoglobin Oxyhemoglobin Sodium Potassium Chloride Carbon Dioxide BUN Creatinine Glucose POC Glucose 130 H Lactic Acid 3.90 H* Calcium Phosphorus Magnesium Total Bilirubin AST NT-Pro-B Natriuret Pep Total Protein Albumin Lipase 07/25/19 07/25/19 07/25/19 04:45 04:45 05:32 WBC RBC Hgb Hct MCV Plt Count 91 L Lymph % (Auto) [place] % (Auto) Lymph # [place] # Seg Neutrophils % Lymphocytes % (Manual) Monocytes % (Manual) Seg Neutrophils # Lymphocytes # (Manual) Monocytes # (Manual) D-Dimer POC ABG pH POC ABG pCO2 POC ABG pO2 ABG pO2 70.6 L ABG O2 Saturation 94.7 L ABG Hemoglobin 12.0 L Oxyhemoglobin 92.8 L Sodium Potassium Chloride Carbon Dioxide BUN 24 H Creatinine Glucose POC Glucose Lactic Acid Calcium 7.9 L Phosphorus 2.20 L Magnesium Total Bilirubin AST NT-Pro-B Natriuret Pep Total Protein Albumin Lipase Chest x-ray: report reviewed, image reviewed
[2019-07-26] MEDS: CEFEPIME/NS 2 GM/100 ML 2 GM/100 ML BAG IV SCH ×2 (04:26→17:12)
[2019-07-26] MEDS: fentaNYL DRIP Premix 2,000 MCG/100 ML BAG IV SCH ×2 (04:27→18:37)
[2019-07-26 06:10] LABS: BUN/Creatinine Ratio 27; Blood Urea Nitrogen 16 mg/dL (9-20); Calcium 8.3 mg/dL (8.4-10.2); Hemolysis Index 8
[2019-07-26] MEDS: metroNIDAZOLE/NS 500 MG/100 ML 500 MG/100 ML BAG IV SCH ×3 (06:14→23:30)
[2019-07-26 06:41] LABS: ABG Base Excess -1.2 mmol/L (-2.0-3.0); ABG HCO3 25.6 mmol/L (20.0-26.0); ABG Methemoglobin 0.5 % (0.0-1.5); ABG Oxygen Saturation 93.9 % (95.0-99.0); ABG PCO2 52.2 mm Hg; ABG PH 7.309 pH Units (7.350-7.450); ABG PO2 73.3 mm Hg (80.0-90.0)
[2019-07-26] MEDS: SODIUM CHLORIDE 0.9% 1000 ML 1,000 ML IV SCH (07:01)
[2019-07-26] MEDS ORDERED: dexAMETHasone 20 MG/5 ML VIAL ONE (07:39)
[2019-07-26] MEDS ORDERED: ROCURONIUM 50 MG/5 ML INJ IV ONE (07:39)
[2019-07-26] MEDS ORDERED: PROPOFOL 200 MG/20 ML VIAL IV ONE (07:39)
[2019-07-26] MEDS ORDERED: LIDOCAINE MPF (2%) 20 MG/1 ML VIAL 5 ML ONE (07:39)
[2019-07-26] MEDS ORDERED: PHENYLEPHRINE/NS 1,000 MCG/10 ML SYRINGE (OR USE) IV ONE (07:39)
[2019-07-26] MEDS ORDERED: fentaNYL 250 MCG/5 ML INJ ONE (07:39)
[2019-07-26] MEDS ORDERED: GLYCOPYRROLATE 0.4 MG/2 ML INJ ONE (07:39)
[2019-07-26] MEDS ORDERED: ONDANSETRON 4 MG/2 ML INJ ONE (07:39)
[2019-07-26] MEDS ORDERED: DEXTROSE 50% IN WATER (25GM) 50 ML SYRINGE IV ONE (08:20)
--- NOTE | 2019-07-26 08:35 | Anesthesia Consultation ---
Anesthesia Consult and Med Hx Date of service: 07/26/19 - Airway Intubation Access Assessment: Probably Good (oETT in situ; previous easy intubation with Glidescope) - Pulmonary Exam CTA: No (rhonchi) - Cardiac Exam Cardiac Exam: RRR - Pre-Operative Health Status ASA Pre-Surgery Classification: ASA4 Proposed Anesthetic Plan: General - Pulmonary Hx Respiratory Symptoms: Yes (Resp failure. Intubated 07/23) - Cardiovascular System Hx Hypertension: No (stable off pressors >48hrs) Hx Heart Attack/AMI: No (EF 25-30% on recent TTE) - Central Nervous System Hx Seizures: Yes CVA: No Hx Psychiatric Problems: Yes (Down's Syndrome) - Endocrine Hx Renal Disease: Yes (ARF requiring HD this admission now improved) Hx Liver Disease: No Hx Insulin Dependent Diabetes: No Hx Non-Insulin Dependent Diabetes: No Hx Thyroid Disease: No - Hematic Hx Anemia: Yes (w/ thrombocytopenia) - Other Systems Hx Obesity: Yes (BMI 50) - Additional Comments Anesthesia Medical History Comments: Scheduled for re-exploration of abdomen. Remains intubated though now off pressors and no longer requiring HD.
--- NOTE | 2019-07-26 08:36 | Anesthesia Day of Surgery ---
Anesthesia Day of Surgery - Day of Surgery Patient Examined: Yes Patient H&P Reviewed: Yes Patient is NPO: Yes
[2019-07-26] MEDS ORDERED: SODIUM CHLORIDE 0.9% IRR 1,500 ML BOTTLE IR ONE ×2 (08:39)
[2019-07-26] MEDS ORDERED: HYDROmorphone 1 MG/1 ML INJ ONE ×4 (08:50→11:05)
--- NOTE | 2019-07-26 12:15 | Post Operative Note ---
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
--- NOTE | 2019-07-26 13:12 | Progress Note ---
Assessment and Plan Imp: 1. Constipation -> diarrhea after laxatives 2. Sepsis, 2/2 bowel necrosis 3. [place], ? contrast-induced + sepsis 4. Hyperkalemia 2/2 #2 and 3, resolved 5. Obesity 6. Acute respiratory failure, hypoxia/hypercapnea 7. Lactic acidosis, resolved 8. Thrombocytopenia, probably due to sepsis + Vanco/Zosyn 9. Hypernatremia Rec: 1. ABX per ID 2. Off pressors; lactate normalized 3. Holding HD 4. LE dopplers negative; D-dimer likely elevated due to sepsis; PE unlikely; hold off on V/Q for now 5. Another surgery planned for Tuesday; leave intubated until then 6. NGT to LIWS 7. Fentanyl drip 8. Nutrition consult for TPN 9. PICC line and remove femoral line 10. Labs in AM; monitor platelets; HIT has been ordered 11. 10/11 NS 12. Complex decision-making Plan of care reviewed w/ mother, she understands/agrees Subjective Date of service: 07/26/19 Principal diagnosis: Respiratory Failure Interval history: Had surgery this AM, abd left open as per surgery notes. Remains off pressors. Sedated. Active Medications Acetaminophen (Tylenol) 650 mg ID Q4H PRN PRN Reason: Fever >100.5 Albumin Human (Alburx 25% (Albumin)) 25 gm IV DIOR PRN PRN Reason: Hypotension Bisacodyl (Dulcolax) 10 mg PO QDAY PRN PRN Reason: Constipation Enoxaparin Sodium (Lovenox) 40 mg SUB-Q DAILY STEPHEN Famotidine (Pepcid) 20 mg IV BID STEPHEN Last Admin: 07/25/19 21:16 Dose: 20 mg Documented by: Phenylephrine HCl 100 mg/ (Sodium Chloride) 100 mls @ 3 mls/hr IV TITR STEPHEN; Protocol Last Titration: 07/24/19 21:31 Dose: 0 mcg/min, 0 mls/hr Documented by: Vasopressin 20 unit/ Sodium (Chloride) 101 mls @ 9.09 mls/hr IV TITR STEPHEN; Protocol Last Titration: 07/25/19 09:44 Dose: Infused Documented by: Norepinephrine 8 mg/ Sodium (Chloride) 250 mls @ 3.75 mls/hr IV TITR STEPHEN; Protocol Last Titration: 07/23/19 13:08 Dose: 0 mcg/min, 0 mls/hr Documented by: Fentanyl Citrate (Fentanyl Drip Premix) 2,000 mcg in 100 mls @ 5.557 mls/hr IV TITR STEPHEN; Protocol Last Admin: 07/26/19 04:27 Dose: 2 mcg/kg/hr, 11.113 mls/hr Documented by: Cefepime HCl (Maxipime/Ns 2 Gm/100 Ml) 2 gm in 100 mls @ 200 mls/hr IV Q12H STEPHEN; Protocol Last Admin: 07/26/19 04:26 Dose: 200 mls/hr Documented by: Metronidazole (Flagyl 500 Mg/100 Ml) 500 mg in 100 mls @ 100 mls/hr IV Q8HR STEPHEN; Protocol Last Admin: 07/26/19 06:14 Dose: 100 mls/hr Documented by: Valproate Sodium 500 mg/ (Sodium Chloride) 105 mls @ 100 mls/hr IV Q12HR STEPHEN Last Admin: 07/25/19 21:17 Dose: 100 mls/hr Documented by: Fluconazole (Diflucan) 200 mg in 100 mls @ 100 mls/hr IV Q24HR STEPHEN; Protocol Last Admin: 07/25/19 09:40 Dose: 100 mls/hr Documented by: Sodium Chloride (Nacl 0.45% 1000 Ml) 1,000 mls @ 150 mls/hr IV DIRECT STEPHEN Ondansetron HCl (Zofran) 4 mg IV Q8H PRN PRN Reason: Nausea And Vomiting Last Admin: 07/22/19 01:07 Dose: 4 mg Documented by: Objective Vital Signs - 12hr 07/26/19 07/26/19 07/26/19 01:20 01:30 01:40 Temperature Pulse Rate 91 H 92 H 99 H Pulse Rate [ From Monitor] Respiratory 19 17 20 Rate Blood Pressure 125/69 120/72 120/72 O2 Sat by Pulse 99 97 97 Oximetry 07/26/19 07/26/19 07/26/19 01:50 02:00 02:10 Temperature Pulse Rate 97 H 94 H 101 H Pulse Rate [ From Monitor] Respiratory 18 18 18 Rate Blood Pressure 125/74 119/76 125/74 O2 Sat by Pulse 100 98 73 L Oximetry 07/26/19 07/26/19 07/26/19 02:20 02:30 02:40 Temperature Pulse Rate 99 H 91 H 89 Pulse Rate [ From Monitor] Respiratory 18 18 18 Rate Blood Pressure 125/80 119/71 119/71 O2 Sat by Pulse 96 96 97 Oximetry 07/26/19 07/26/19 07/26/19 02:50 03:00 03:10 Temperature Pulse Rate 86 89 90 Pulse Rate [ From Monitor] Respiratory 17 18 18 Rate Blood Pressure 125/74 118/72 118/72 O2 Sat by Pulse 97 97 97 Oximetry 07/26/19 07/26/19 07/26/19 03:20 03:30 03:40 Temperature Pulse Rate 98 H 90 90 Pulse Rate [ From Monitor] Respiratory 20 18 18 Rate Blood Pressure 123/68 120/71 120/71 O2 Sat by Pulse 97 99 98 Oximetry 07/26/19 07/26/19 07/26/19 03:50 04:00 04:10 Temperature 98.9 F Pulse Rate 91 H 96 H 89 Pulse Rate [ 108 H From Monitor] Respiratory 18 18 18 Rate Blood Pressure 121/74 126/79 126/79 O2 Sat by Pulse 98 98 97 Oximetry 07/26/19 07/26/19 07/26/19 04:20 04:30 04:40 Temperature Pulse Rate 107 H 109 H 118 H Pulse Rate [ From Monitor] Respiratory 18 20 29 H Rate Blood Pressure 121/71 131/83 131/83 O2 Sat by Pulse 100 98 90 Oximetry 07/26/19 07/26/19 07/26/19 04:43 04:50 05:00 Temperature 98.9 F Pulse Rate 109 H Pulse Rate [ From Monitor] Respiratory 22 Rate Blood Pressure 131/83 139/83 O2 Sat by Pulse 95 95 Oximetry 07/26/19 07/26/19 07/26/19 05:10 05:20 05:30 Temperature Pulse Rate 99 H 107 H 100 H Pulse Rate [ From Monitor] Respiratory 21 21 18 Rate Blood Pressure 139/83 122/58 127/65 O2 Sat by Pulse 95 94 94 Oximetry 07/26/19 07/26/19 07/26/19 05:40 05:50 06:00 Temperature Pulse Rate 105 H 100 H 93 H Pulse Rate [ From Monitor] Respiratory 19 18 19 Rate Blood Pressure 127/65 123/68 124/69 O2 Sat by Pulse 90 95 92 Oximetry 07/26/19 07/26/19 07/26/19 06:10 06:20 06:30 Temperature Pulse Rate 95 H 95 H 94 H Pulse Rate [ From Monitor] Respiratory 18 18 18 Rate Blood Pressure 124/69 121/72 116/69 O2 Sat by Pulse 93 94 95 Oximetry 07/26/19 07/26/19 07/26/19 06:40 06:50 07:00 Temperature Pulse Rate 94 H 91 H 90 Pulse Rate [ From Monitor] Respiratory 18 19 18 Rate Blood Pressure 116/69 122/69 120/69 O2 Sat by Pulse 93 95 95 Oximetry 07/26/19 07/26/19 07/26/19 07:10 07:20 07:30 Temperature Pulse Rate 91 H 91 H 93 H Pulse Rate [ From Monitor] Respiratory 18 18 18 Rate Blood Pressure 120/69 113/67 123/71 O2 Sat by Pulse 95 96 96 Oximetry 07/26/19 07/26/19 07/26/19 07:39 08:00 12:00 Temperature 99.0 F Pulse Rate 90 90 84 Pulse Rate [ 90 From Monitor] Respiratory 18 Rate Blood Pressure 120/71 124/68 O2 Sat by Pulse 99 95 94 Oximetry Constitutional: other (obese, sedated, critically ill on ventilator) Eyes: non-icteric ENT: oropharynx moist Neck: supple Effort: normal Ascultation: Bilateral: diminished breath sounds (due to obesity) Cardiovascular: other (sinus tachy, no mrg, regular rhythm) Gastrointestinal: normoactive bowel sounds, soft, other (morbidly obese abd) Integumentary: normal Extremities: no cyanosis, no edema, pink and warm Neurologic: normal mental status, non-focal exam, pupils equal and round Psychiatric: mood appropriate, affect normal CBC and BMP: 07/25/19 04:45 07/26/19 05:00 ABG, PT/INR, D-dimer: ABG POC ABG pH 7.464 (7.35-7.45) H 07/24/19 18:44 ABG pH 7.309 pH Units (7.350-7.450) L 07/26/19 05:45 POC ABG pCO2 36.2 (35-45) 07/24/19 18:44 ABG pCO2 52.2 mm Hg 07/26/19 05:45 POC ABG pO2 125 (80-105) H 07/24/19 18:44 ABG pO2 73.3 mm Hg (80.0-90.0) L 07/26/19 05:45 POC ABG HCO3 26.0 (22-26 mml/L) 07/24/19 18:44 POC ABG Total CO2 27 (23-27mmol/L) 07/24/19 18:44 POC ABG O2 Sat 99 07/24/19 18:44 ABG O2 Saturation 93.9 % (95.0-99.0) L 07/26/19 05:45 PT/INR, D-dimer D-Dimer 886.89 ng/mlDDU (0-234) H 07/22/19 21:45 Abnormal lab findings: Abnormal Labs 07/21/19 07/21/19 07/22/19 19:02 19:02 10:50 WBC 12.1 H 13.7 H RBC 5.56 H Hgb 17.1 H Hct 52.9 H D MCV 95 H 95 H Plt Count 130 L 137 L Lymph % (Auto) 7.2 L [place] % (Auto) 9.6 H Lymph # 0.9 L [place] # 1.2 H Seg Neutrophils % 82.8 H Lymphocytes % (Manual) Monocytes % (Manual) Seg Neutrophils # 10.0 H Lymphocytes # (Manual) Monocytes # (Manual) D-Dimer POC ABG pH ABG pH POC ABG pCO2 POC ABG pO2 ABG pO2 ABG O2 Saturation ABG Hemoglobin Oxyhemoglobin Sodium 136 L Potassium Chloride 95.9 L Carbon Dioxide BUN Creatinine Glucose 163 H POC Glucose Lactic Acid Calcium Phosphorus Magnesium Total Bilirubin AST NT-Pro-B Natriuret Pep Total Protein Albumin Lipase 10 L 07/22/19 07/22/19 07/22/19 10:50 15:33 15:33 WBC 13.1 H RBC 5.10 H Hgb 15.9 H Hct 49.0 H MCV 96 H Plt Count 127 L Lymph % (Auto) [place] % (Auto) Lymph # [place] # Seg Neutrophils % Lymphocytes % (Manual) Monocytes % (Manual) Seg Neutrophils # Lymphocytes # (Manual) Monocytes # (Manual) D-Dimer POC ABG pH ABG pH POC ABG pCO2 POC ABG pO2 ABG pO2 ABG O2 Saturation ABG Hemoglobin Oxyhemoglobin Sodium 136 L Potassium 5.3 H D 6.0 H Chloride 96.7 L Carbon Dioxide 17 L BUN 22 H 29 H Creatinine 2.0 H D 2.2 H Glucose 129 H 121 H POC Glucose Lactic Acid Calcium 8.2 L Phosphorus 4.70 H Magnesium 3.10 H Total Bilirubin AST NT-Pro-B Natriuret Pep Total Protein Albumin Lipase 07/22/19 07/22/19 07/22/19 18:19 18:42 21:45 WBC RBC Hgb Hct MCV Plt Count Lymph % (Auto) [place] % (Auto) Lymph # [place] # Seg Neutrophils % Lymphocytes % (Manual) Monocytes % (Manual) Seg Neutrophils # Lymphocytes # (Manual) Monocytes # (Manual) D-Dimer 886.89 H POC ABG pH 7.197 L ABG pH POC ABG pCO2 45.2 H POC ABG pO2 ABG pO2 ABG O2 Saturation ABG Hemoglobin Oxyhemoglobin Sodium Potassium Chloride Carbon Dioxide BUN Creatinine Glucose POC Glucose 107 H Lactic Acid Calcium Phosphorus Magnesium Total Bilirubin AST NT-Pro-B Natriuret Pep Total Protein Albumin Lipase 07/22/19 07/22/19 07/22/19 21:45 21:45 21:45 WBC RBC Hgb Hct MCV Plt Count Lymph % (Auto) [place] % (Auto) Lymph # [place] # Seg Neutrophils % Lymphocytes % (Manual) Monocytes % (Manual) Seg Neutrophils # Lymphocytes # (Manual) Monocytes # (Manual) D-Dimer POC ABG pH ABG pH POC ABG pCO2 POC ABG pO2 ABG pO2 ABG O2 Saturation ABG Hemoglobin Oxyhemoglobin Sodium 136 L Potassium 5.6 H Chloride Carbon Dioxide 20 L BUN 38 H Creatinine 2.6 H Glucose 63 L POC Glucose Lactic Acid 3.10 H* Calcium 8.2 L Phosphorus Magnesium Total Bilirubin AST NT-Pro-B Natriuret Pep 5407 H Total Protein Albumin Lipase 07/23/19 07/23/19 07/23/19 02:11 02:50 02:50 WBC 15.0 H RBC Hgb Hct MCV 95 H Plt Count 118 L Lymph % (Auto) [place] % (Auto) Lymph # [place] # Seg Neutrophils % Lymphocytes % (Manual) 9.0 L Monocytes % (Manual) 17.0 H Seg Neutrophils # Lymphocytes # (Manual) Monocytes # (Manual) 2.6 H D-Dimer POC ABG pH ABG pH POC ABG pCO2 POC ABG pO2 ABG pO2 ABG O2 Saturation ABG Hemoglobin Oxyhemoglobin Sodium Potassium Chloride Carbon Dioxide BUN Creatinine Glucose POC Glucose 69 L Lactic Acid 3.30 H* Calcium Phosphorus Magnesium Total Bilirubin AST NT-Pro-B Natriuret Pep Total Protein Albumin Lipase 07/23/19 07/23/19 07/23/19 02:50 03:09 04:30 WBC RBC Hgb Hct MCV Plt Count Lymph % (Auto) [place] % (Auto) Lymph # [place] # Seg Neutrophils % Lymphocytes % (Manual) Monocytes % (Manual) Seg Neutrophils # Lymphocytes # (Manual) Monocytes # (Manual) D-Dimer POC ABG pH 7.296 L ABG pH POC ABG pCO2 POC ABG pO2 66 L ABG pO2 ABG O2 Saturation ABG Hemoglobin Oxyhemoglobin Sodium 134 L Potassium 7.5 H* D Chloride Carbon Dioxide 21 L BUN 47 H Creatinine 2.7 H Glucose POC Glucose Lactic Acid 3.50 H* Calcium 7.6 L Phosphorus Magnesium 2.90 H Total Bilirubin AST 60 H NT-Pro-B Natriuret Pep Total Protein 5.5 L D Albumin 2.5 L Lipase 07/23/19 07/23/19 07/23/19 07:30 09:03 09:03 WBC RBC Hgb Hct MCV Plt Count Lymph % (Auto) [place] % (Auto) Lymph # [place] # Seg Neutrophils % Lymphocytes % (Manual) Monocytes % (Manual) Seg Neutrophils # Lymphocytes # (Manual) Monocytes # (Manual) D-Dimer POC ABG pH ABG pH POC ABG pCO2 POC ABG pO2 ABG pO2 ABG O2 Saturation ABG Hemoglobin Oxyhemoglobin Sodium 136 L Potassium 6.6 H* 7.1 H* Chloride Carbon Dioxide 20 L BUN 50 H 49 H Creatinine 2.6 H 2.4 H Glucose 67 L POC Glucose Lactic Acid 4.10 H* Calcium 7.6 L 7.7 L Phosphorus Magnesium Total Bilirubin AST NT-Pro-B Natriuret Pep Total Protein Albumin Lipase 07/23/19 07/23/19 07/23/19 10:52 13:13 14:48 WBC RBC Hgb Hct MCV Plt Count Lymph % (Auto) [place] % (Auto) Lymph # [place] # Seg Neutrophils % Lymphocytes % (Manual) Monocytes % (Manual) Seg Neutrophils # Lymphocytes # (Manual) Monocytes # (Manual) D-Dimer POC ABG pH 7.280 L ABG pH POC ABG pCO2 48.7 H POC ABG pO2 ABG pO2 ABG O2 Saturation ABG Hemoglobin Oxyhemoglobin Sodium Potassium Chloride Carbon Dioxide BUN Creatinine Glucose POC Glucose 123 H Lactic Acid 4.10 H* Calcium Phosphorus Magnesium Total Bilirubin AST NT-Pro-B Natriuret Pep Total Protein Albumin Lipase 07/23/19 07/23/19 07/23/19 15:56 17:35 Unknown WBC RBC Hgb Hct MCV Plt Count Lymph % (Auto) [place] % (Auto) Lymph # [place] # Seg Neutrophils % Lymphocytes % (Manual) Monocytes % (Manual) Seg Neutrophils # Lymphocytes # (Manual) Monocytes # (Manual) D-Dimer POC ABG pH ABG pH POC ABG pCO2 POC ABG pO2 ABG pO2 ABG O2 Saturation ABG Hemoglobin Oxyhemoglobin Sodium Potassium Chloride Carbon Dioxide BUN Creatinine Glucose POC Glucose Lactic Acid 3.00 H* 4.10 H* 4.90 H* Calcium Phosphorus Magnesium Total Bilirubin AST NT-Pro-B Natriuret Pep Total Protein Albumin Lipase 07/23/19 07/24/19 07/24/19 Unknown 00:05 00:40 WBC RBC Hgb Hct MCV Plt Count Lymph % (Auto) [place] % (Auto) Lymph # [place] # Seg Neutrophils % Lymphocytes % (Manual) Monocytes % (Manual) Seg Neutrophils # Lymphocytes # (Manual) Monocytes # (Manual) D-Dimer POC ABG pH ABG pH POC ABG pCO2 POC ABG pO2 ABG pO2 151.3 H ABG O2 Saturation ABG Hemoglobin Oxyhemoglobin Sodium Potassium 5.6 H D Chloride Carbon Dioxide BUN 29 H Creatinine Glucose 128 H POC Glucose 118 H Lactic Acid Calcium 7.4 L Phosphorus Magnesium Total Bilirubin AST NT-Pro-B Natriuret Pep Total Protein Albumin Lipase 07/24/19 07/24/19 07/24/19 04:00 05:37 05:37 WBC RBC Hgb Hct MCV Plt Count 89 L Lymph % (Auto) [place] % (Auto) Lymph # [place] # Seg Neutrophils % Lymphocytes % (Manual) 5.0 L Monocytes % (Manual) Seg Neutrophils # Lymphocytes # (Manual) 0.5 L Monocytes # (Manual) D-Dimer POC ABG pH ABG pH POC ABG pCO2 POC ABG pO2 ABG pO2 ABG O2 Saturation ABG Hemoglobin Oxyhemoglobin Sodium Potassium Chloride Carbon Dioxide BUN 29 H Creatinine Glucose 120 H POC Glucose 123 H Lactic Acid Calcium 7.4 L Phosphorus 2.30 L D Magnesium Total Bilirubin 1.40 H AST 107 H NT-Pro-B Natriuret Pep Total Protein 5.3 L Albumin 2.5 L Lipase 10/15/19 10/15/19 10/15/19 05:37 10:18 18:44 WBC RBC Hgb Hct MCV Plt Count Lymph % (Auto) [place] % (Auto) Lymph # [place] # Seg Neutrophils % Lymphocytes % (Manual) Monocytes % (Manual) Seg Neutrophils # Lymphocytes # (Manual) Monocytes # (Manual) D-Dimer POC ABG pH 7.464 H ABG pH POC ABG pCO2 POC ABG pO2 125 H ABG pO2 ABG O2 Saturation ABG Hemoglobin Oxyhemoglobin Sodium Potassium Chloride Carbon Dioxide BUN Creatinine Glucose POC Glucose 130 H Lactic Acid 3.90 H* Calcium Phosphorus Magnesium Total Bilirubin AST NT-Pro-B Natriuret Pep Total Protein Albumin Lipase 07/24/19 07/25/19 07/25/19 18:52 04:45 04:45 WBC RBC Hgb Hct MCV Plt Count 91 L Lymph % (Auto) [place] % (Auto) Lymph # [place] # Seg Neutrophils % Lymphocytes % (Manual) Monocytes % (Manual) Seg Neutrophils # Lymphocytes # (Manual) Monocytes # (Manual) D-Dimer POC ABG pH ABG pH POC ABG pCO2 POC ABG pO2 ABG pO2 ABG O2 Saturation ABG Hemoglobin Oxyhemoglobin Sodium Potassium Chloride Carbon Dioxide BUN 24 H Creatinine Glucose POC Glucose 107 H Lactic Acid Calcium 7.9 L Phosphorus 2.20 L Magnesium Total Bilirubin AST NT-Pro-B Natriuret Pep Total Protein Albumin Lipase 07/25/19 07/26/19 07/26/19 05:32 02:20 05:00 WBC RBC Hgb Hct MCV Plt Count Lymph % (Auto) [place] % (Auto) Lymph # [place] # Seg Neutrophils % Lymphocytes % (Manual) Monocytes % (Manual) Seg Neutrophils # Lymphocytes # (Manual) Monocytes # (Manual) D-Dimer POC ABG pH ABG pH POC ABG pCO2 POC ABG pO2 ABG pO2 70.6 L ABG O2 Saturation 94.7 L ABG Hemoglobin 12.0 L Oxyhemoglobin 92.8 L Sodium 148 H Potassium Chloride 112.1 H Carbon Dioxide BUN Creatinine 0.6 L Glucose 71 L POC Glucose 62 L Lactic Acid Calcium 8.3 L Phosphorus Magnesium Total Bilirubin AST NT-Pro-B Natriuret Pep Total Protein Albumin Lipase 07/26/19 07/26/19 05:45 05:47 WBC RBC Hgb Hct MCV Plt Count Lymph % (Auto) [place] % (Auto) Lymph # [place] # Seg Neutrophils % Lymphocytes % (Manual) Monocytes % (Manual) Seg Neutrophils # Lymphocytes # (Manual) Monocytes # (Manual) D-Dimer POC ABG pH ABG pH 7.309 L POC ABG pCO2 POC ABG pO2 ABG pO2 73.3 L ABG O2 Saturation 93.9 L ABG Hemoglobin 12.4 L Oxyhemoglobin 92.1 L Sodium Potassium Chloride Carbon Dioxide BUN Creatinine Glucose POC Glucose 68 L Lactic Acid Calcium Phosphorus Magnesium Total Bilirubin AST NT-Pro-B Natriuret Pep Total Protein Albumin Lipase Chest x-ray: report reviewed, image reviewed
--- NOTE | 2019-07-26 13:21 | Post Anesthesia Evaluation ---
- Post Anesthesia Evaluation Patient Participated: No (sedated) Airway Patent: Yes Stable Respiratory Function: Yes Nausea/Vomiting: No Temp > 96.8F: Yes Pain Manageable: Yes Adequeate Hydration: Yes Anesthesia Complications: No Patient on Ventilator: Yes (returned to preop vent settings) Other Comments: Transported to ICU with monitors, manual ventilation with AMBU. Handoff given to [employer] and RT.
--- NOTE | 2019-07-26 13:36 | Progress Note ---
Assessment and Plan Cultures: 07/21/2019 blood culture: No growth A/P: 19-year-old male with Down syndrome admitted with severe constipation and fecal impaction: 1) Septic shock: intra-abdominal source. s/p ex-lap on 07/23/2019, findings of multiple distinct areas of necrosis on transverse colon. Rest of intestines were normal. Gen. Surg following. 2) Acute renal failure: resolved. Creatinine normal. Dose adjust abx accordingly. 3) Fecal impaction, colonic distention and shock: s/p ex-lap on 07/23/2019, findings of multiple distinct areas of necrosis on transverse colon. rest of intestines were normal. Gen. Surg following, s/p washout on 07/26/2019, open abdomen. 4) Acute respiratory failure: Intubated, on vent. Recs: Continue IV Cefepime, Flagyl, Fluconazole, increased doses given renal function improvement Duration will depend on final surgical source control/abdominal closure Meghan Williamson MD, FACP [facility] ([facility]) C: [phone] O: [phone] F: [phone] Subjective Date of service: 07/26/19 Principal diagnosis: Respiratory Failure Interval history: No fever. Back from OR today. Remains intubated, sedated. Off pressors. Discussed with RN. Making good urine. Objective - Exam Narrative Exam: Physical Exam: Constitutional: sedated, intubated Head, Ears, Nose: Normocephalic, atraumatic. External ears, nose normal Eyes: Conjunctivae/corneas clear. No icterus. No ptosis. Neck: intubated Oral: intubated Cardiovascular: S1, S2 normal. Respiratory: Good air entry, clear to auscultation bilaterally GI: soft, midline woundVAC +, bowel sounds absent Musculoskeletal: No pedal edema, no cyanosis. Dialysis catheter present Skin: No rash or abscess Hem/Lymphatic: No palpable cervical or supraclavicular nodes. No lymphangitis Psych: no agitation Neurological: sedated, intubated, on vent - Constitutional Vitals: Vital Signs Temp Pulse Resp BP Pulse Ox 99.0 F 84 18 124/68 94 07/26/19 08:00 07/26/19 12:00 07/26/19 08:00 07/26/19 12:00 07/26/19 12:00 Temperature -Last 24 Hours Temperature 99.0 F Temperature 98.9 F Temperature 98.9 F Temperature 97.9 F Temperature 98.8 F Temperature 98.8 F Temperature 97.9 F - Labs CBC & Chem 7: 07/25/19 04:45 07/26/19 05:00 Labs: Abnormal lab results 07/24/19 07/26/19 07/26/19 Range/Units 18:52 02:20 05:00 ABG pH (7.350-7.450) pH Units ABG pO2 (80.0-90.0) mm Hg ABG O2 Saturation (95.0-99.0) % ABG Hemoglobin (14.0-18.0) gm/dl Oxyhemoglobin (95.0-99.0) % Sodium 148 H (137-145) mmol/L Chloride 112.1 H (98-107) mmol/L Creatinine 0.6 L (0.8-1.5) mg/dL Glucose 71 L (75-100) mg/dL POC Glucose 107 H 62 L (70-105) Calcium 8.3 L (8.4-10.2) mg/dL 07/26/19 07/26/19 Range/Units 05:45 05:47 ABG pH 7.309 L (7.350-7.450) pH Units ABG pO2 73.3 L (80.0-90.0) mm Hg ABG O2 Saturation 93.9 L (95.0-99.0) % ABG Hemoglobin 12.4 L (14.0-18.0) gm/dl Oxyhemoglobin 92.1 L (95.0-99.0) % Sodium (137-145) mmol/L Chloride (98-107) mmol/L Creatinine (0.8-1.5) mg/dL Glucose (75-100) mg/dL POC Glucose 68 L (70-105) Calcium (8.4-10.2) mg/dL
[2019-07-26] MEDS: VALPROATE SODIUM 500 MG in SODIUM CHLORIDE 0.9% 100 ML IV SCH ×2 (13:46→23:29)
[2019-07-26] MEDS: FAMOTIDINE 20 MG/2 ML INJ IV SCH ×2 (13:46→23:30)
[2019-07-26] MEDS: SODIUM CHLORIDE 0.45% 1000 ML 1,000 ML IV SCH (16:04)
[2019-07-26] MEDS: FLUCONAZOLE 400 MG 200 ML IV SCH (16:10)
--- NOTE | 2019-07-26 16:13 | Progress Note ---
Assessment and Plan Assessment and plan: Patient is 19 yo with [facility]s [facility]. he initially presented with abdominal pain, nausea and vomiting. he was seen and examined in ED. CT Abd showed severe constipation. he was given Fleets enema, admitted. His BMP was WNL. By next day Cr was 2.2 and he had hyperkalemia of 5.3. Repeat hrs later showed worse Cr 2.2 and Potassium went up to 6.0. and he had developed shortness of breath, desaturation so was transferred to ICU. Acute resp failure now intubated, Pcat Instructor following Ischemic Bowel, s/p ex lap and resection Surgeon following POD #3- returning to the OR today Septic shock: intra-abdominal source. s/p ex-lap on 07/23/2019, Per surgery findings of multiple distinct areas of necrosis on transverse colon. Rest of intestines were normal. IV Cefepime, Flagyl, Fluconazole Discontinue femoral Line COLUMBA due to ATN Nephrology following lactic acidosis Secondary to ischemic Bowel Hyperkalemia Gave calcium Carbonate Insulin/Dextrose discussed with Dr. West severe constipation resolved, now has diarrhea due to laxatives Severe diarrhea due to laxatives after presenting with constipation Sinus tachycardia due to dehydration Downs syndrome supportive care full code status Prognosis guarded The high probability of a clinically significant, sudden or life threatening deterioration of the [renal, GI,] system(s) required my full and direct attention, intervention and personal management. The aggregate critical care time was [35] minutes. This time is in addition to time spent performing reported procedures but includes the following: [x] Data Review and interpretation [x] Patient assessment and monitoring of vital signs [x] Documentation [x] Medication orders and management History Interval history: Patient seen and examined, remains intubated, Now off Pressor. No adverse event reported Hospitalist Physical - Physical exam Narrative exam: Gen: Ill looking, obese, intubated HEENT: Normocephalic, atraumatic, ETT in place Neck: supple, no JVD Heart: S1 and S2 reg, no murmurs, rubs or gallop Lungs: bilateral crackles, no wheeze Abd: soft, non tender,Wound Vac in place surgical wound not closed yet non distended, normal BS, Ext: No edema, no clubbing, no cyanosis Neuro: sedated but awakens off sedation, follows some command, no focal neurological signs,moves all ext - Constitutional Vitals: Temp Pulse Resp BP Pulse Ox 98.0 F 91 H 18 125/68 93 07/26/19 13:00 07/26/19 16:00 07/26/19 13:40 07/26/19 16:00 07/26/19 16:00 General appearance: Present: other (intubated) Results - Labs CBC & Chem 7: 07/25/19 04:45 07/26/19 05:00 Labs: Laboratory Last Values WBC 7.1 K/mm3 (4.5-11.0) 07/25/19 04:45 RBC 3.86 M/mm3 (3.65-5.03) 07/25/19 04:45 Hgb 12.0 gm/dl (11.8-15.2) 07/25/19 04:45 Hct 36.2 % (35.5-45.6) 07/25/19 04:45 MCV 94 fl (84-94) 07/25/19 04:45 MCH 31 pg (28-32) 07/25/19 04:45 MCHC 33 % (32-34) 07/25/19 04:45 RDW 15.2 % (13.2-15.2) 07/25/19 04:45 Plt Count 91 K/mm3 (140-440) L 07/25/19 04:45 Lymph % (Auto) 7.2 % (13.4-35.0) L 07/21/19 19:02 [place] % (Auto) Java [email or web address] Application Developer 07/23/19 02:50 Eos % (Auto) 0.1 % (0.0-4.3) 07/21/19 19:02 Baso % (Auto) 0.3 % (0.0-1.8) 07/21/19 19:02 Lymph # 0.9 K/mm3 (1.2-5.4) L 07/21/19 19:02 [place] # 1.2 K/mm3 (0.0-0.8) H 07/21/19 19:02 Eos # 0.0 K/mm3 (0.0-0.4) 07/21/19 19:02 Baso # 0.0 K/mm3 (0.0-0.1) 07/21/19 19:02 Add Manual Diff Complete 07/24/19 05:37 Total Counted 100 07/24/19 05:37 Seg Neutrophils % 82.8 % (40.0-70.0) H 07/21/19 19:02 Seg Neuts % (Manual) 59.0 % (40.0-70.0) 07/24/19 05:37 Band Neutrophils % 25.0 % 07/24/19 05:37 Lymphocytes % (Manual) 5.0 % (13.4-35.0) L 07/24/19 05:37 Reactive Lymphs % (Man) 1.0 % 07/24/19 05:37 Monocytes % (Manual) 7.0 % (0.0-7.3) 07/24/19 05:37 Eosinophils % (Manual) 0 % (0.0-4.3) 07/24/19 05:37 Basophils % (Manual) 0 % (0.0-1.8) 07/24/19 05:37 Metamyelocytes % 3.0 % 07/24/19 05:37 Myelocytes % 0 % 07/24/19 05:37 Promyelocytes % 0 % 07/24/19 05:37 Blast Cells % 0 % 07/24/19 05:37 Nucleated RBC % Not Reportable 07/24/19 05:37 Seg Neutrophils # 10.0 K/mm3 (1.8-7.7) H 07/21/19 19:02 Seg Neutrophils # Man 6.3 K/mm3 (1.8-7.7) 07/24/19 05:37 Band Neutrophils # 2.7 K/mm3 07/24/19 05:37 Lymphocytes # (Manual) 0.5 K/mm3 (1.2-5.4) L 07/24/19 05:37 Abs React Lymphs (Man) 0.1 K/mm3 07/24/19 05:37 Monocytes # (Manual) 0.7 K/mm3 (0.0-0.8) 07/24/19 05:37 Eosinophils # (Manual) 0.0 K/mm3 (0.0-0.4) 07/24/19 05:37 Basophils # (Manual) 0.0 K/mm3 (0.0-0.1) 07/24/19 05:37 Metamyelocytes # 0.3 K/mm3 07/24/19 05:37 Myelocytes # 0.0 K/mm3 07/24/19 05:37 Promyelocytes # 0.0 K/mm3 07/24/19 05:37 Blast Cells # 0.0 K/mm3 07/24/19 05:37 WBC Morphology Not Reportable 07/24/19 05:37 Hypersegmented Neuts Not Reportable 07/24/19 05:37 Hyposegmented Neuts Not Reportable 07/24/19 05:37 Hypogranular Neuts Not Reportable 07/24/19 05:37 Smudge Cells Not Reportable 07/24/19 05:37 Toxic Granulation Not Reportable 07/24/19 05:37 Toxic Vacuolation Few 07/24/19 05:37 Dohle Bodies Not Reportable 07/24/19 05:37 Pelger-Huet Anomaly Not Reportable 07/24/19 05:37 Alea Rods Not Reportable 07/24/19 05:37 Platelet Estimate Consistent w auto 07/24/19 05:37 Clumped Platelets Not Reportable 07/24/19 05:37 Plt Clumps, EDTA Not Reportable 07/24/19 05:37 Large Platelets Few 07/24/19 05:37 Giant Platelets Not Reportable 07/24/19 05:37 Platelet Satelliting Not Reportable 07/24/19 05:37 Plt Morphology Comment Not Reportable 07/24/19 05:37 RBC Morphology Not Reportable 07/24/19 05:37 Dimorphic RBCs Not Reportable 07/24/19 05:37 Polychromasia Not Reportable 07/24/19 05:37 Hypochromasia Not Reportable 07/24/19 05:37 Poikilocytosis Not Reportable 07/24/19 05:37 Anisocytosis 1+ 07/24/19 05:37 Microcytosis Not Reportable 07/24/19 05:37 Macrocytosis Not Reportable 07/24/19 05:37 Spherocytes Not Reportable 07/24/19 05:37 Pappenheimer Bodies Not Reportable 07/24/19 05:37 Sickle Cells Not Reportable 07/24/19 05:37 Target Cells Not Reportable 07/24/19 05:37 Tear Drop Cells Not Reportable 07/24/19 05:37 Ovalocytes Not Reportable 07/24/19 05:37 Helmet Cells Not Reportable 07/24/19 05:37 Woodard-Kalifornsky Bodies Not Reportable 07/24/19 05:37 [place] Rings Not Reportable 07/24/19 05:37 Kaylyn Cells Not Reportable 07/24/19 05:37 Bite Cells Not Reportable 07/24/19 05:37 Crenated Cell Not Reportable 07/24/19 05:37 Elliptocytes Not Reportable 07/24/19 05:37 Acanthocytes (Spur) Not Reportable 07/24/19 05:37 Rouleaux Not Reportable 07/24/19 05:37 Hemoglobin C Crystals Not Reportable 07/24/19 05:37 Schistocytes Not Reportable 07/24/19 05:37 Malaria parasites Not Reportable 07/24/19 05:37 Emanuel Bodies Not Reportable 07/24/19 05:37 Hem Pathologist Commnt No 07/24/19 05:37 D-Dimer 886.89 ng/mlDDU (0-234) H 07/22/19 21:45 POC ABG pH 7.464 (7.35-7.45) H 07/24/19 18:44 ABG pH 7.309 pH Units (7.350-7.450) L 07/26/19 05:45 POC ABG pCO2 36.2 (35-45) 07/24/19 18:44 ABG pCO2 52.2 mm Hg 07/26/19 05:45 POC ABG pO2 125 (80-105) H 07/24/19 18:44 ABG pO2 73.3 mm Hg (80.0-90.0) L 07/26/19 05:45 POC ABG HCO3 26.0 (22-26 mml/L) 07/24/19 18:44 ABG HCO3 25.6 mmol/L (20.0-26.0) 07/26/19 05:45 POC ABG Total CO2 27 (23-27mmol/L) 07/24/19 18:44 POC ABG O2 Sat 99 07/24/19 18:44 ABG O2 Saturation 93.9 % (95.0-99.0) L 07/26/19 05:45 ABG O2 Content 16.2 (0.0-44) 07/26/19 05:45 POC ABG Base Excess 2 ((-2) - (+3)mmol/L) 07/24/19 18:44 ABG Base Excess -1.2 mmol/L (-2.0-3.0) 07/26/19 05:45 ABG Hemoglobin 12.4 gm/dl (14.0-18.0) L 07/26/19 05:45 ABG Carboxyhemoglobin 1.4 % (0.0-5.0) 07/26/19 05:45 ABG Methemoglobin 0.5 % (0.0-1.5) 07/26/19 05:45 Oxyhemoglobin 92.1 % (95.0-99.0) L 07/26/19 05:45 FiO2 30 % 07/26/19 05:45 Sodium 148 mmol/L (137-145) H 07/26/19 05:00 Potassium 3.8 mmol/L (3.6-5.0) 07/26/19 05:00 Chloride 112.1 mmol/L (98-107) H 07/26/19 05:00 Carbon Dioxide 25 mmol/L (22-30) 07/26/19 05:00 Anion Gap 15 mmol/L 07/26/19 05:00 BUN 16 mg/dL (9-20) 07/26/19 05:00 Creatinine 0.6 mg/dL (0.8-1.5) L 07/26/19 05:00 Estimated GFR > 60 ml/min 07/26/19 05:00 BUN/Creatinine Ratio 27 % 07/26/19 05:00 Glucose 71 mg/dL (75-100) L 07/26/19 05:00 POC Glucose 83 (70-105) 07/26/19 13:57 Lactic Acid 1.10 mmol/L (0.7-2.0) 07/25/19 09:16 Calcium 8.3 mg/dL (8.4-10.2) L 07/26/19 05:00 Phosphorus 3.30 mg/dL (2.5-4.5) D 07/26/19 05:00 Magnesium 2.20 mg/dL (1.7-2.3) 07/24/19 05:37 Total Bilirubin 1.40 mg/dL (0.1-1.2) H 07/24/19 05:37 Direct Bilirubin 0.2 mg/dL (0-0.2) 07/21/19 19:02 Indirect Bilirubin 0.4 mg/dL 07/21/19 19:02 AST 107 units/L (5-40) H 07/24/19 05:37 ALT 45 units/L (7-56) 07/24/19 05:37 Alkaline Phosphatase 49 units/L (35-129) 07/24/19 05:37 Ammonia 39.0 umol/L (25-60) 07/23/19 02:50 Troponin T < 0.010 ng/mL (0.00-0.029) 07/22/19 15:33 NT-Pro-B Natriuret Pep 5407 pg/mL (0-450) H 07/22/19 21:45 Total Protein 5.3 g/dL (6.3-8.2) L 07/24/19 05:37 Albumin 2.5 g/dL (3.9-5) L 07/24/19 05:37 Albumin/Globulin Ratio 0.9 % 07/24/19 05:37 Lipase 10 units/L (13-60) L 07/21/19 19:02 TSH 0.888 mlU/mL (0.270-4.200) 07/23/19 13:06 Free T4 1.04 ng/dL (0.76-1.46) 07/23/19 13:06 Urine Color Emy (Yellow) 07/21/19 21:36 Urine Turbidity Clear (Clear) 07/21/19 21:36 Urine pH 5.0 (5.0-7.0) 07/21/19 21:36 Ur Specific [place] 1.024 (1.003-1.030) 07/21/19 21:36 Urine Protein <15 mg/dl mg/dL (Negative) 07/21/19 21:36 Urine Glucose (UA) Neg mg/dL (Negative) 07/21/19 21:36 Urine Ketones Neg mg/dL (Negative) 07/21/19 21:36 Urine Blood Neg (Negative) 07/21/19 21:36 Urine Nitrite Neg (Negative) 07/21/19 21:36 Urine Bilirubin Sm (Negative) 07/21/19 21:36 Urine Ictotest Negative (Negative) 07/21/19 21:36 Urine Urobilinogen 4.0 mg/dL (<2.0) 07/21/19 21:36 Ur Leukocyte Esterase Neg (Negative) 07/21/19 21:36 Urine WBC (Auto) 1.0 /HPF (0.0-6.0) 07/21/19 21:36 Urine RBC (Auto) 1.0 /HPF (0.0-6.0) 07/21/19 21:36 U Epithel Cells (Auto) < 1.0 /HPF (0-13.0) 07/21/19 21:36 Urine Mucus Few /HPF 07/21/19 21:36 Hepatitis A IgM Ab Non-reactive (NonReactive) 07/23/19 13:06 Hep Bs Antigen Non-reactive (Negative) 07/23/19 13:06 Hep B Core IgM Ab Non-reactive (NonReactive) 07/23/19 13:06 Hepatitis C Antibody Non-reactive (NonReactive) 07/23/19 13:06 Blood Type A POSITIVE 07/23/19 13:06 Antibody Screen Negative 07/23/19 13:06 Active Medications - Current Medications Current Medications: Generic Name Dose Route Start Last Admin Trade Name Freq PRN Reason Stop Dose Admin Acetaminophen 650 mg 07/23/19 02:48 Tylenol [place] Q4H PRN Fever >100.5 Albumin Human 25 gm 07/23/19 13:11 Alburx 25% (Albumin) IV DIOR PRN Hypotension Bisacodyl 10 mg 07/21/19 22:25 Dulcolax PO QDAY PRN Constipation Enoxaparin Sodium 40 mg 07/27/19 10:00 Lovenox SUB-Q DAILY STEPHEN Famotidine 20 mg 07/24/19 10:00 07/26/19 13:46 Pepcid IV Not Given BID STEPHEN Phenylephrine HCl 100 mg/ 100 mls @ 3 mls/hr 07/23/19 02:45 07/24/19 21:31 Sodium Chloride IV 0 mcg/min TITR STEPHEN 0 mls/hr Titration Protocol 50 MCG/MIN Vasopressin 20 unit/ Sodium 101 mls @ 9.09 mls/hr 07/23/19 10:00 07/25/19 09:44 Chloride IV Infused TITR STEPHEN Titration Protocol 0.03 UNITS/MIN Norepinephrine 8 mg/ Sodium 250 mls @ 3.75 mls/hr 07/23/19 12:00 07/23/19 13:08 Chloride IV 0 mcg/min TITR STEPHEN 0 mls/hr Titration Protocol 2 MCG/MIN Fentanyl Citrate 2,000 mcg in 100 mls @ 5.557 mls/hr 07/23/19 12:00 07/26/19 04:27 Fentanyl Drip Premix IV 2 mcg/kg/hr TITR STEPHEN 11.113 mls/hr Administration Protocol 1 MCG/KG/HR Cefepime HCl 2 gm in 100 mls @ 200 mls/hr 07/23/19 16:00 07/26/19 04:26 Maxipime/Ns 2 Gm/100 Ml IV 200 mls/hr Q12H STEPHEN Administration Protocol Metronidazole 500 mg in 100 mls @ 100 mls/hr 07/23/19 16:00 07/26/19 06:14 Flagyl 500 Mg/100 Ml IV 100 mls/hr Q8HR STEPHEN Administration Protocol Valproate Sodium 500 mg/ 105 mls @ 100 mls/hr 07/24/19 10:00 07/26/19 13:46 Sodium Chloride IV Not Given Q12HR STEPHEN Sodium Chloride 1,000 mls @ 150 mls/hr 07/26/19 08:00 Nacl 0.45% 1000 Ml IV DIRECT STEPHEN Fluconazole 200 mls @ 100 mls/hr 07/26/19 15:00 Diflucan IV Q24HR STEPHEN Protocol Ondansetron HCl 4 mg 07/21/19 22:25 07/22/19 01:07 Zofran IV 4 mg Q8H PRN Administration Nausea And Vomiting Nutrition/Malnutrition Assess - Dietary Evaluation Nutrition/Malnutrition Findings: Nutrition Notes Start: 07/23/19 10:09 Freq: Status: Active Protocol: Document 07/25/19 11:02 RS (Rec: 07/25/19 11:50 RS [id number]) Co-Sign 07/25/19 11:02 LM Nutrition Notes Initial or Follow up Reassessment Other Pertinent Diagnosis Abdominal pain, Down Syndrome, intractable N/V/C, Chronic dilated colon Current Diet NPO Labs/Tests reviewed Pertinent Medications reviewed Height 5 ft 7 in Weight 144.9 kg [place] Body Weight (kg) 67.27 BMI 50.0 Weight change and time frame correct wt obtained from [facility] Weight Status Obese Subjective/Other Information Pt still NPO d/t upcoming bowel surgery tomorrow. Per chart TPN may be considered. Will F/U for diet advancement. Correct wt obtained. Pt remains on vent. Burn Absent Trauma Absent GI Symptoms Nausea,Vomiting,Constipation Minimum of two criteria No physical signs of malnutrition #1 Nutrition Diagnosis Inadequate oral intake Diagnosis Progress(for reassessment Continues documentation) Is patient on ventilator? Yes Is Patient Ambulatory and/or Out of Bed No [facility]) 2895.432 Kcal/Kg value to use for calculation 16 Approximate Energy Requirements Using 2318 kcal/Kg Calculation Used for Recommendations Kcal/kg Additional Notes Pro needs 2g/kg IBW: 135g/day Fluid needs 1ml/kcal Nutrition Intervention Change Diet Order: Advance diet when medically feasible Goal #1 Diet advancement to meet nutrient needs Anticipated Discharge Needs: Unable to identify at this time Follow-Up By: 07/27/19 Additional Comments F/U for diet advancement and POC
[2019-07-26 16:27] LABS: Heparin-Induced Platelet Antib Negative (Negative); Unfractionated Heparin Negative (Negative)
--- NOTE | 2019-07-26 16:31 | Progress Note ---
Assessment and Plan 1. Acute kidney injury: Vasomotor COLUMBA in the setting of volume depletion. Patient was dialyzed on due to hyperkalemia. Renal function is better. Continue IV fluids. Monitor renal function. Avoid nephrotoxic agents. Meds dosage based on GFR. 2. FEN: Hyperkalemia, improved after hemodialysis. Metabolic acidosis, improved. Hypernatremia, 1/2 NS. Monitor lytes. 3. Hypotension: Currently on no pressors. Continue IV fluids. 4. Ischemic Colon: S/p Ex Lap and partial Colon Resection. Followed by . 5. Respiratory failure: On vent. 6. Sepsis: Cultures negative so far. Leukocytosis has improved. 7. Sinus tachycardia: Improved. Examination: General appearance: well-developed, well-nourished, appears stated age, obese, intubated, on vent HEENT: ATNC, [place] Neck: neck supple, trachea midline Respiratory: Clear to Ascultation Heart: regular, S1S2, no murmur Gastrointestinal: obese, dressing / wound vac noted Integumentary: no rash, warm and dry : Mcpherson catheter Neurologic: opens eyes Musculoskeletal: no deformity Hemodialysis access: R IJ temp catheter Subjective Date of service: 07/26/19 Principal diagnosis: Respiratory Failure Interval history: Patient was seen and examined at the bedside. Objective - Vital Signs Vital signs: Vital Signs - 12hr 07/26/19 07/26/19 07/26/19 04:30 04:40 04:43 Temperature 98.9 F Pulse Rate 109 H 118 H Pulse Rate [ From Monitor] Respiratory 20 29 H Rate Blood Pressure 131/83 131/83 O2 Sat by Pulse 98 90 Oximetry 07/26/19 07/26/19 07/26/19 04:50 05:00 05:10 Temperature Pulse Rate 109 H 99 H Pulse Rate [ From Monitor] Respiratory 22 21 Rate Blood Pressure 131/83 139/83 139/83 O2 Sat by Pulse 95 95 95 Oximetry 07/26/19 07/26/19 07/26/19 05:20 05:30 05:40 Temperature Pulse Rate 107 H 100 H 105 H Pulse Rate [ From Monitor] Respiratory 21 18 19 Rate Blood Pressure 122/58 127/65 127/65 O2 Sat by Pulse 94 94 90 Oximetry 10/17/19 10/17/19 10/17/19 05:50 06:00 06:10 Temperature Pulse Rate 100 H 93 H 95 H Pulse Rate [ From Monitor] Respiratory 18 19 18 Rate Blood Pressure 123/68 124/69 124/69 O2 Sat by Pulse 95 92 93 Oximetry 07/26/19 07/26/19 07/26/19 06:20 06:30 06:40 Temperature Pulse Rate 95 H 94 H 94 H Pulse Rate [ From Monitor] Respiratory 18 18 18 Rate Blood Pressure 121/72 116/69 116/69 O2 Sat by Pulse 94 95 93 Oximetry 07/26/19 07/26/19 07/26/19 06:50 07:00 07:10 Temperature Pulse Rate 91 H 90 91 H Pulse Rate [ From Monitor] Respiratory 19 18 18 Rate Blood Pressure 122/69 120/69 120/69 O2 Sat by Pulse 95 95 95 Oximetry 07/26/19 07/26/19 07/26/19 07:20 07:30 07:39 Temperature Pulse Rate 91 H 93 H 90 Pulse Rate [ From Monitor] Respiratory 18 18 Rate Blood Pressure 113/67 123/71 120/71 O2 Sat by Pulse 96 96 99 Oximetry 07/26/19 07/26/19 07/26/19 08:00 12:00 12:34 Temperature 99.0 F Pulse Rate 90 84 88 Pulse Rate [ 90 From Monitor] Respiratory 18 17 Rate Blood Pressure 124/68 124/68 O2 Sat by Pulse 95 94 92 Oximetry 07/26/19 07/26/19 07/26/19 12:40 12:50 13:00 Temperature 98.0 F Pulse Rate 85 82 85 Pulse Rate [ From Monitor] Respiratory 18 18 18 Rate Blood Pressure 124/68 123/73 132/83 O2 Sat by Pulse 94 96 95 Oximetry 07/26/19 07/26/19 07/26/19 13:10 13:20 13:30 Temperature Pulse Rate 92 H 88 89 Pulse Rate [ From Monitor] Respiratory 18 18 17 Rate Blood Pressure 132/83 118/72 122/75 O2 Sat by Pulse 98 98 97 Oximetry 07/26/19 07/26/19 07/26/19 13:40 13:55 16:00 Temperature Pulse Rate 87 91 H 91 H Pulse Rate [ From Monitor] Respiratory 18 Rate Blood Pressure 125/68 O2 Sat by Pulse 97 93 Oximetry - Lab 07/25/19 04:45 07/26/19 05:00 Most recent lab results ABG pH 7.309 pH Units (7.350-7.450) L 07/26/19 05:45 ABG pCO2 52.2 mm Hg 07/26/19 05:45 ABG pO2 73.3 mm Hg (80.0-90.0) L 07/26/19 05:45 ABG HCO3 25.6 mmol/L (20.0-26.0) 07/26/19 05:45 ABG O2 Saturation 93.9 % (95.0-99.0) L 07/26/19 05:45 Calcium 8.3 mg/dL (8.4-10.2) L 07/26/19 05:00 Phosphorus 3.30 mg/dL (2.5-4.5) D 07/26/19 05:00 Magnesium 2.20 mg/dL (1.7-2.3) 07/24/19 05:37 Medications & Allergies - Medications Allergies/Adverse Reactions: Allergies No Known Allergies Allergy (Verified 10/20/15 03:43) Home Medications: Home Medications Medication Instructions Recorded Confirmed Last Taken Type Benztropine [Cogentin] 0.5 mg PO QHS 05/17/19 07/24/19 Unknown History Divalproex ER [Depakote ER] 500 mg PO BID 05/17/19 07/24/19 Unknown History clonazePAM [KlonoPIN] 2 mg PO BID 05/17/19 07/24/19 Unknown History traZODone [Desyrel] 100 mg PO HS 06/05/19 07/24/19 Unknown History Divalproex ER [Depakote ER] 500 mg PO BID tablet 06/06/19 07/24/19 Unknown Rx Lactulose 10 gm PO DAILY PRN #150 ml 07/21/19 Unknown Rx Active Medications: Generic Name Dose Route Start Last Admin Trade Name Freq PRN Reason Stop Dose Admin Acetaminophen 650 mg 07/23/19 02:48 Tylenol [place] Q4H PRN Fever >100.5 Albumin Human 25 gm 07/23/19 13:11 Alburx 25% (Albumin) IV DIOR PRN Hypotension Bisacodyl 10 mg 07/21/19 22:25 Dulcolax PO QDAY PRN Constipation Enoxaparin Sodium 40 mg 07/27/19 10:00 Lovenox SUB-Q DAILY STEPHEN Famotidine 20 mg 07/24/19 10:00 07/26/19 13:46 Pepcid IV Not Given BID STEPHEN Phenylephrine HCl 100 mg/ 100 mls @ 3 mls/hr 07/23/19 02:45 07/24/19 21:31 Sodium Chloride IV 0 mcg/min TITR STEPHEN 0 mls/hr Titration Protocol 50 MCG/MIN Vasopressin 20 unit/ Sodium 101 mls @ 9.09 mls/hr 07/23/19 10:00 07/25/19 09:44 Chloride IV Infused TITR STEPHEN Titration Protocol 0.03 UNITS/MIN Norepinephrine 8 mg/ Sodium 250 mls @ 3.75 mls/hr 07/23/19 12:00 07/23/19 13:08 Chloride IV 0 mcg/min TITR STEPHEN 0 mls/hr Titration Protocol 2 MCG/MIN Fentanyl Citrate 2,000 mcg in 100 mls @ 5.557 mls/hr 07/23/19 12:00 07/26/19 04:27 Fentanyl Drip Premix IV 2 mcg/kg/hr TITR STEPHEN 11.113 mls/hr Administration Protocol 1 MCG/KG/HR Cefepime HCl 2 gm in 100 mls @ 200 mls/hr 07/23/19 16:00 07/26/19 04:26 Maxipime/Ns 2 Gm/100 Ml IV 200 mls/hr Q12H STEPHEN Administration Protocol Metronidazole 500 mg in 100 mls @ 100 mls/hr 07/23/19 16:00 07/26/19 16:07 Flagyl 500 Mg/100 Ml IV 100 mls/hr Q8HR STEPHEN Administration Protocol Valproate Sodium 500 mg/ 105 mls @ 100 mls/hr 07/24/19 10:00 07/26/19 13:46 Sodium Chloride IV Not Given Q12HR STEPHEN Sodium Chloride 1,000 mls @ 150 mls/hr 07/26/19 08:00 07/26/19 16:04 Nacl 0.45% 1000 Ml IV 150 mls/hr DIRECT STEPHEN Administration Fluconazole 200 mls @ 100 mls/hr 07/26/19 15:00 07/26/19 16:10 Diflucan IV 100 mls/hr Q24HR STEPHEN Administration Protocol Ondansetron HCl 4 mg 07/21/19 22:25 07/22/19 01:07 Zofran IV 4 mg Q8H PRN Administration Nausea And Vomiting
--- NOTE | 2019-07-26 23:06 | Operative Report ---
PREOPERATIVE DIAGNOSIS: Ischemic necrosis of the transverse colon. POSTOPERATIVE DIAGNOSIS: Ischemic necrosis of the transverse colon. PROCEDURES: 1. Abdominal reexploration. 2. Abdominal colectomy. 3. Splenic flexure mobilization of colon. 4. ABThera placement. SURGEON: Dr. Tilley. CO-SURGEON: Dr. Goodwin. ANESTHESIA: General. ESTIMATED BLOOD LOSS: 300 mL. FLUIDS: 1800 mL. URINE OUTPUT: 200 mL. FINDINGS: No further bowel compromise was identified. The rest of the bowel was completely viable. The remainder of the colon was noted to be markedly dilated. This was not different than what we had seen the first time. No other abnormalities were identified. SPECIMENS: Abdominal colon. DRAINS: ABThera drain. COMPLICATIONS: None. DISPOSITION: Stable, transferred to ICU. INDICATIONS: This is a 19-year-old obese male who returns to the OR for a scheduled reexploration and planned abdominal colectomy. Procedure benefits were explained to mother. Risks included but were not limited to infection, bleeding, pain, injury to surrounding structures, possible need for further surgery. Mother understood and consented. OPERATIVE NOTE: The patient was brought to the operating room and placed on the table in supine position. After adequate general anesthesia was established, the patient was prepped and draped in the usual sterile fashion. SCDs were in place. Antibiotics were already scheduled and had been given. Time-out was called. Prior to the prepping, the overlying sponge and adhesives from the ABThera were removed. Once we began the case, I cut the Prolene sutures and removed the internal sponge and draped. The small bowel was completely viable. There was no odor or purulent drainage. We examined all of the intestine. At the beginning of the case, I was concerned and that I had not gotten reports that the patient had any significant bowel movement since the last surgery. We knew that he had retained stool in the rectum and I wanted that to be cleaned out as much as possible to minimize his risk of anastomotic breakdown and infection. As I did not get a report that he had had stool despite all the enemas, I was concerned he still had a fair amount of stool there. We were in a difficult position at this point. On one hand to give him an ostomy would be the safest course, however, due to his Down syndrome, he had a lot of difficulty with the colostomy, the first time he had in 2016. His mom said that it was an extremely difficult time for him and she does not think he would be able to tolerate that again. To simply reconnect the two ends of the disconnected colon was a problem as well. He has chronic colonic dysfunction. If he continues, which I do not see a reason why he would not, with trying to avoid bowel movements, we will have the same problem of excess stool accumulation in the colon causing excess pressure and most likely a third episode of ischemic bowel. This is exactly what happened in 2016. We did not have a reasonable option to leave the colon as this sets him up for a third episode at some point in the future. His mom does not think that we would ever be able to get him to understand the importance of having regular bowel movements. To go ahead and remove the colon and do an ileocolonic anastomosis with a very poor prep puts him at risk for multiple complications including anastomotic breakdown and infection; however, I do not see that we have much other choice. Hopefully with the more liquid contents that will be coming through, the benefit of doing this will be to prevent him from retaining stool for long periods of time as it is going to be more liquid now. The downside of course is the increased risks that he suffers a complication, but I do not see that we have any other better choices. Therefore, we decided to proceed with this plan. Just as last time, increased time was required for dissection due to his obesity and distended colon. The case was more challenging. We mobilized the right colon first going down the white line of Toldt. Dr. Goodwin mobilized the right colon. Once we had sufficiently elevated it, we divided the distal ileum with a SALMA stapler. The mesentery was divided with the EnSeal device. We had a very clean dissection. There was no evidence of injury to the retroperitoneum. The duodenum was normal and uninjured. We then turned our attention to the left side. I began by again mobilizing the right colon along the white line of Toldt. We approached the splenic flexure from both lateral approach and mobilizing the gastrocolic ligament and mobilizing the transverse colon and then working our way towards the splenic flexure slowly with the EnSeal device and electrocautery, we were able to slowly dissect the splenic flexure safely away from the spleen. There was no injury to any underlying structures. We mobilized the left colon and then decided where we would divide the bowel to create our anastomosis. I wanted to try to stay more proximal on the colon away from the rectum where he had presumably a large amount of stool; however, I did not want to leave so much colon such that we end up with the same problem of excess stool accumulation causing stretching of the bowel and then pressure necrosis. We chose a point on the mid sigmoid. We divided the bowel there with the SALMA stapler. We had to use two loads due to the significant diameter of the colon. Please note the colon was quite dilated seemed to be primarily air; therefore, prior to excising the bowel, the proximal end that had already been divided in the last surgery was opened up slightly to allow for air to be decompressed. There was also a fair amount of liquid stool that was in there as well. Once we had drained most of it, then I used the SALMA stapler to divide the bone near the point where we were going to create the anastomosis. We divided the mesentery of the portion, we are going to excise with the EnSeal device and then passed the specimen off the table. Dr. Goodwin was holding the specimen so she changed her gloves before the next procedure was done. The remainder of the sigmoid colon and rectum were dilated. We planned to make a small opening there and drained as much as we could of contents so that the anastomosis was not bathed in a large amount of stool and liquid. We towelled off the area thoroughly. A small opening was made in one corner of the staple line from where we had divided the bowel. A large amount of fluid was suctioned out. We tried to control it as best as we could. We had very minimal overflow. I thought we did a very good job in containing it; however, there was a large amount of fluid and particulate matter that we suctioned out. Once we had pretty much suction most of it out where it was no longer coming out on its own, we then proceeded with stapling the distal ileum to the sigmoid using a SALMA-75 mm stapler with a blue load. We did a [id number] functional end-to-end anastomosis. Staple lines were reinforced with interrupted 3-0 silk Lembert sutures. A crotch stitch was placed as well. Everything was completely hemostatic. Everything looked to be very good. We made sure the bowel was not twisted it at any point that it laid very easily. We washed the abdomen out with 3 liters of warm saline due to my concerns of potential infection and because the bowel was poorly prepped and because I was concerned that due to his Down syndrome, he would not be able to communicate with as well that he was having some early issues I thought it would be best to leave him on the ventilator a little longer. I wanted to bring him back for another washout to try to minimize his infection risk and to be able to reevaluate the anastomosis to make sure that there were no early signs of breakdown due to the poor prep. Please note I did not feel as though it would be worthwhile to try to continue to clean the rectum out as we had tried multiple enemas and we were not having much success. I tried to manually disimpact him at the bedside, but everything was so high, it was difficult to get most of it out; therefore, I proceeded with making the anastomosis. Everything looked very good at this point, everything had been washed out, everything was hemostatic. We placed a new ABThera. Dressings were placed. Adequate suction was established. The patient tolerated the procedure well. There were no complications. All counts were correct at the end of the case. I spoke with the mother at great length. At the end of the case, I explained everything just as I had outlined in the note. She understood and agreed with my thoughts. She understands that he will be coming back to the OR at least 1 or 2 more times for washout, reevaluation and then eventual closure. I have also explained this to the ICU doctor, Dr. Alejandro. He was in agreement as well. JOB# [id number] ISRA/SERGO ALVAREZ
[2019-07-26] MEDS: PROPOFOL 1,000 MG/100 ML BOTTLE IV SCH (23:28)
[2019-07-27] MEDS: fentaNYL DRIP Premix 2,000 MCG/100 ML BAG IV SCH ×2 (02:30→13:20)
[2019-07-27] MEDS: SODIUM CHLORIDE 0.45% 1000 ML 1,000 ML IV SCH ×3 (02:33→17:44)
[2019-07-27] MEDS: CEFEPIME/NS 2 GM/100 ML 2 GM/100 ML BAG IV SCH ×2 (04:00→16:54)
[2019-07-27] MEDS: FLUCONAZOLE 200 MG 200 MG/100 ML BAG IV SCH (04:06)
[2019-07-27 05:26] LABS: Hematocrit 38.2 % (35.5-45.6); Hemoglobin 12.6 gm/dl (11.8-15.2); Mean Corpuscular HGB Conc 33 % (32-34); Mean Corpuscular Volume 94 fl (84-94); Platelet Count 113 K/mm3 (140-440); Red Blood Count 4.05 M/mm3 (3.65-5.03); Red Cell Distribution Width 15.8 % (13.2-15.2)
[2019-07-27 05:38] LABS: BUN/Creatinine Ratio 21; Blood Urea Nitrogen 17 mg/dL (9-20); Calcium 7.9 mg/dL (8.4-10.2); Hemolysis Index 3
[2019-07-27] MEDS: metroNIDAZOLE/NS 500 MG/100 ML 500 MG/100 ML BAG IV SCH ×3 (05:58→23:24)
[2019-07-27 06:28] LABS: Band Neutrophils # (Manual) 0.4 K/mm3; Basophils % (Manual) 0 % (0.0-1.8); Eosinophils % (Manual) 0 % (0.0-4.3); Total Cells Counted 100
[2019-07-27 06:30] LABS: Anisocytosis Few; Ovalocytes Few; Platelet Estimate Consistent w Auto
[2019-07-27 06:46] LABS: ABG Base Excess -1.4 mmol/L (-2.0-3.0); ABG HCO3 24.2 mmol/L (20.0-26.0); ABG Methemoglobin 0.6 % (0.0-1.5); ABG Oxygen Saturation 96.3 % (95.0-99.0); ABG PH 7.358 pH Units (7.350-7.450); ABG PO2 84.6 mm Hg (80.0-90.0)
--- NOTE | 2019-07-27 08:09 | Progress Note ---
Assessment and Plan - Patient Problems (1) Ischemic necrosis of large intestine Current Visit: Yes Status: Acute Plan to address problem: Pt stable. s/p ex-lap with partial colon resection (07/23) - POD#4; s/p abdominal colectomy with ileocolostomy (07/26) - POD#1. As patient had a very poor prep, he was left open for another abdominal washout and opportunity to check anastomosis. Based on NGT appearance, patient has a post-op ileus. Hold any tube feeds for now. Would ideally like to see resumption of bowel function prior to starting tube feeds. Tentative plan to return to OR this weekend. If everything looks good, may close at that time. Otherwise, will return to OR at beginning of next week. Please call with questions. Subjective Date of service: 07/27/19 Patient Reports: Positive: other (nurse reports that he had a restless night) Objective Vital Signs - 12hr 07/26/19 07/26/19 07/26/19 20:10 20:20 20:26 Temperature Pulse Rate 91 H 107 H 102 H Pulse Rate [ From Monitor] Respiratory 18 21 17 Rate Blood Pressure 140/84 124/67 124/67 O2 Sat by Pulse 96 96 97 Oximetry 07/26/19 07/26/19 07/26/19 20:30 20:40 20:50 Temperature Pulse Rate 99 H 87 93 H Pulse Rate [ From Monitor] Respiratory 18 19 20 Rate Blood Pressure 125/63 149/75 118/64 O2 Sat by Pulse 95 97 96 Oximetry 07/26/19 07/26/19 07/26/19 21:00 21:10 21:20 Temperature Pulse Rate 87 86 82 Pulse Rate [ From Monitor] Respiratory 18 18 18 Rate Blood Pressure 119/60 118/64 116/56 O2 Sat by Pulse 97 97 95 Oximetry 07/26/19 07/26/19 07/26/19 21:30 21:40 21:50 Temperature Pulse Rate 86 87 80 Pulse Rate [ From Monitor] Respiratory 18 18 18 Rate Blood Pressure 117/59 119/60 122/61 O2 Sat by Pulse 97 97 98 Oximetry 07/26/19 07/26/19 07/26/19 22:00 22:10 22:20 Temperature Pulse Rate 120 H 103 H 101 H Pulse Rate [ From Monitor] Respiratory 27 H 18 18 Rate Blood Pressure 122/61 110/83 135/75 O2 Sat by Pulse 97 96 Oximetry 07/26/19 07/26/19 07/26/19 22:30 22:40 22:50 Temperature Pulse Rate 99 H 99 H 91 H Pulse Rate [ From Monitor] Respiratory 18 18 18 Rate Blood Pressure 127/74 127/74 125/70 O2 Sat by Pulse 96 95 96 Oximetry 07/26/19 07/26/19 07/26/19 23:00 23:10 23:12 Temperature 98.3 F Pulse Rate 89 92 H Pulse Rate [ From Monitor] Respiratory 18 19 Rate Blood Pressure 125/66 125/66 O2 Sat by Pulse 95 97 Oximetry 07/26/19 07/26/19 07/26/19 23:20 23:30 23:40 Temperature Pulse Rate 139 H 104 H 96 H Pulse Rate [ From Monitor] Respiratory 22 18 18 Rate Blood Pressure 125/66 128/53 131/56 O2 Sat by Pulse 73 L 92 94 Oximetry 07/26/19 07/26/19 07/27/19 23:42 23:50 00:00 Temperature Pulse Rate 107 H 91 H 90 Pulse Rate [ 96 H From Monitor] Respiratory 18 18 Rate Blood Pressure 124/67 132/59 128/58 O2 Sat by Pulse 96 94 94 Oximetry 07/27/19 07/27/19 07/27/19 00:10 00:20 00:30 Temperature Pulse Rate 87 92 H 89 Pulse Rate [ From Monitor] Respiratory 18 18 18 Rate Blood Pressure 132/59 134/59 125/56 O2 Sat by Pulse 96 96 96 Oximetry 07/27/19 07/27/19 07/27/19 00:40 00:50 01:00 Temperature Pulse Rate 87 85 81 Pulse Rate [ From Monitor] Respiratory 18 18 20 Rate Blood Pressure 125/56 125/60 125/62 O2 Sat by Pulse 97 99 98 Oximetry 07/27/19 07/27/19 07/27/19 01:10 01:20 01:30 Temperature Pulse Rate 80 82 86 Pulse Rate [ From Monitor] Respiratory 18 18 19 Rate Blood Pressure 125/62 130/59 134/63 O2 Sat by Pulse 97 98 97 Oximetry 07/27/19 07/27/19 07/27/19 01:40 01:50 02:00 Temperature Pulse Rate 82 77 74 Pulse Rate [ From Monitor] Respiratory 21 20 20 Rate Blood Pressure 134/63 126/57 136/57 O2 Sat by Pulse 99 99 99 Oximetry 07/27/18/19 07/27/19 02:10 02:20 02:30 Temperature Pulse Rate 72 69 74 Pulse Rate [ From Monitor] Respiratory 20 19 19 Rate Blood Pressure 136/57 133/56 133/56 O2 Sat by Pulse 98 99 98 Oximetry 07/27/1918/19 07/27/19 02:40 02:50 03:00 Temperature Pulse Rate 71 70 93 H Pulse Rate [ From Monitor] Respiratory 18 20 18 Rate Blood Pressure 139/58 133/64 152/78 O2 Sat by Pulse 100 98 99 Oximetry 18/19 18/19 07/27/19 03:10 03:20 03:30 Temperature 98.9 F Pulse Rate 94 H 116 H 93 H Pulse Rate [ From Monitor] Respiratory 18 21 18 Rate Blood Pressure 152/78 155/80 155/80 O2 Sat by Pulse 99 99 99 Oximetry 07/27/07/27/07/27/19 03:40 03:50 04:00 Temperature Pulse Rate 74 110 H 97 H Pulse Rate [ 79 From Monitor] Respiratory 18 18 18 Rate Blood Pressure 142/67 148/72 148/72 O2 Sat by Pulse 99 93 98 Oximetry 07/27/07/27/07/27/19 04:10 04:20 04:30 Temperature Pulse Rate 75 75 73 Pulse Rate [ From Monitor] Respiratory 18 18 18 Rate Blood Pressure 147/64 142/55 142/55 O2 Sat by Pulse 97 97 96 Oximetry 07/27/07/27/07/27/19 04:40 04:50 05:00 Temperature Pulse Rate 91 H 79 77 Pulse Rate [ From Monitor] Respiratory 18 18 18 Rate Blood Pressure 143/59 143/59 143/59 O2 Sat by Pulse 95 97 98 Oximetry 18/19 18/19 18/19 05:10 05:20 05:30 Temperature Pulse Rate 66 73 67 Pulse Rate [ From Monitor] Respiratory 19 17 19 Rate Blood Pressure 128/58 147/57 147/57 O2 Sat by Pulse 98 98 97 Oximetry 18/19 18/19 18/19 05:40 05:50 06:00 Temperature Pulse Rate 70 94 H 96 H Pulse Rate [ From Monitor] Respiratory 19 17 18 Rate Blood Pressure 136/55 144/61 144/61 O2 Sat by Pulse 98 94 96 Oximetry 07/27/19 07/27/19 07/27/19 06:10 06:20 06:30 Temperature Pulse Rate 94 H 87 126 H Pulse Rate [ From Monitor] Respiratory 17 18 22 Rate Blood Pressure 152/70 156/69 156/69 O2 Sat by Pulse 95 98 70 L Oximetry 07/27/19 07/27/19 07/27/19 06:40 06:50 07:00 Temperature Pulse Rate 104 H 94 H 106 H Pulse Rate [ From Monitor] Respiratory 18 21 19 Rate Blood Pressure 158/65 126/62 126/62 O2 Sat by Pulse 96 95 95 Oximetry 07/27/19 07:35 Temperature Pulse Rate 99 H Pulse Rate [ From Monitor] Respiratory Rate Blood Pressure 158/80 O2 Sat by Pulse 97 Oximetry - General physical appearance no distress, no pain, other (awake and intermittently trying to get up) - ENT other (NGT with bilious output (expected)) - Respiratory normal expansion, normal respiratory effort - Abdomen soft, not distended, other (AbThera in place with serosang drainage. ) - Integumentary no rash, no growths, no abnormal pigmentation - Labs 07/27/19 05:00 07/27/19 05:00 Diabetes panel 07/27/19 Range/Units 05:00 Sodium 149 H (137-145) mmol/L Potassium 4.1 (3.6-5.0) mmol/L Chloride 114.6 H (98-107) mmol/L Carbon Dioxide 25 (22-30) mmol/L BUN 17 (9-20) mg/dL Creatinine 0.8 (0.8-1.5) mg/dL Glucose 100 (75-100) mg/dL Calcium 7.9 L (8.4-10.2) mg/dL Calcium panel 07/27/19 Range/Units 05:00 Calcium 7.9 L (8.4-10.2) mg/dL Phosphorus 4.10 D (2.5-4.5) mg/dL Pituitary panel 07/27/19 Range/Units 05:00 Sodium 149 H (137-145) mmol/L Potassium 4.1 (3.6-5.0) mmol/L Chloride 114.6 H (98-107) mmol/L Carbon Dioxide 25 (22-30) mmol/L BUN 17 (9-20) mg/dL Creatinine 0.8 (0.8-1.5) mg/dL Glucose 100 (75-100) mg/dL Calcium 7.9 L (8.4-10.2) mg/dL Adrenal panel 07/27/19 Range/Units 05:00 Sodium 149 H (137-145) mmol/L Potassium 4.1 (3.6-5.0) mmol/L Chloride 114.6 H (98-107) mmol/L Carbon Dioxide 25 (22-30) mmol/L BUN 17 (9-20) mg/dL Creatinine 0.8 (0.8-1.5) mg/dL Glucose 100 (75-100) mg/dL Calcium 7.9 L (8.4-10.2) mg/dL
[2019-07-27] MEDS: VALPROATE SODIUM 500 MG in SODIUM CHLORIDE 0.9% 100 ML IV SCH ×2 (09:42→21:57)
[2019-07-27] MEDS: FAMOTIDINE 20 MG/2 ML INJ IV SCH ×2 (09:43→21:57)
[2019-07-27] MEDS: FLUCONAZOLE 400 MG 200 ML IV SCH (09:46)
[2019-07-27] MEDS: ENOXAPARIN 40 MG/0.4 ML INJ SUB-Q SCH (09:48)
--- NOTE | 2019-07-27 11:15 | Progress Note ---
Assessment and Plan Assessment and plan: Patient is 19 yo with Downs syndrome from [facility] home. he initially presented with abdominal pain, nausea and vomiting. he was seen and examined in ED. CT Abd showed severe constipation. he was given Fleets enema, admitted. His BMP was WNL. By next day Cr was 2.2 and he had hyperkalemia of 5.3. Repeat hrs later showed worse Cr 2.2 and Potassium went up to 6.0. and he had developed shortness of breath, desaturation so was transferred to ICU. Acute resp failure now intubated, Energy Manager following VAP/Aspiration precautions Ischemic Bowel, s/p ex lap and resection Surgeon following POD #4- returning to the OR today s/p abdominal colectomy with ileocolostomy (07/26) - POD#1. Per surgery based on "Based on NGT appearance, patient has a post-op ileus. Hold any tube feeds for now. Would ideally like to see resumption of bowel function prior to starting tube feeds." Septic shock: intra-abdominal source. s/p ex-lap on 07/23/2019, Per surgery findings of multiple distinct areas of necrosis on transverse colon. Rest of intestines were normal. IV Cefepime, Flagyl, Fluconazole Discontinue femoral Line [place] due to ATN Nephrology following lactic acidosis Secondary to ischemic Bowel Hyperkalemia Gave calcium Carbonate Insulin/Dextrose discussed with Dr. West severe constipation resolved, now has diarrhea due to laxatives Severe diarrhea due to laxatives after presenting with constipation Thrombocytopenia Continue to monitor Sinus tachycardia due to dehydration Downs syndrome supportive care full code status Prognosis guarded The high probability of a clinically significant, sudden or life threatening deterioration of the [renal, GI,] system(s) required my full and direct attention, intervention and personal management. The aggregate critical care time was [35] minutes. This time is in addition to time spent performing reported procedures but includes the following: [x] Data Review and interpretation [x] Patient assessment and monitoring of vital signs [x] Documentation [x] Medication orders and management History Interval history: Patient seen and examined, remains intubated, S/P OR eval yesterday. Restless o yoko night, now on sedatives, Maintians good urine output. Mcpherson remains inplace due to critical illness and repeated OR visit AND FOR Acurate I/O Hospitalist Physical - Physical exam Narrative exam: Gen: Ill looking, obese, intubated HEENT: Normocephalic, atraumatic, ETT in place Neck: supple, no JVD Heart: S1 and S2 reg, no murmurs, rubs or gallop Lungs: bilateral crackles, no wheeze Abd: soft, non tender,Wound Vac in place surgical wound not closed yet non distended, Hypoactive BS, Ext: No edema, no clubbing, no cyanosis Neuro: sedated, follows some command, no focal neurological signs, - Constitutional Vitals: Temp Pulse Resp BP Pulse Ox 98.7 F 56 L 20 116/50 100 07/27/19 08:00 07/27/19 10:30 07/27/19 10:30 07/27/19 10:30 07/27/19 10:30 General appearance: Present: other (intubated) Results - Labs CBC & Chem 7: 07/27/19 05:00 07/27/19 05:00 Labs: Laboratory Last Values WBC 13.1 K/mm3 (4.5-11.0) H 07/27/19 05:00 RBC 4.05 M/mm3 (3.65-5.03) 07/27/19 05:00 Hgb 12.6 gm/dl (11.8-15.2) 07/27/19 05:00 Hct 38.2 % (35.5-45.6) 07/27/19 05:00 MCV 94 fl (84-94) 07/27/19 05:00 MCH 31 pg (28-32) 07/27/19 05:00 MCHC 33 % (32-34) 07/27/19 05:00 RDW 15.8 % (13.2-15.2) H 07/27/19 05:00 Plt Count 113 K/mm3 (140-440) L 07/27/19 05:00 Lymph % (Auto) 7.2 % (13.4-35.0) L 07/21/19 19:02 [place] % (Auto) Clipper Operator 07/27/19 05:00 Eos % (Auto) 0.1 % (0.0-4.3) 07/21/19 19:02 Baso % (Auto) 0.3 % (0.0-1.8) 07/21/19 19:02 Lymph # 0.9 K/mm3 (1.2-5.4) L 07/21/19 19:02 [place] # 1.2 K/mm3 (0.0-0.8) H 07/21/19 19:02 Eos # 0.0 K/mm3 (0.0-0.4) 07/21/19 19:02 Baso # 0.0 K/mm3 (0.0-0.1) 07/21/19 19:02 Add Manual Diff Complete 07/27/19 05:00 Total Counted 100 07/27/19 05:00 Seg Neutrophils % 82.8 % (40.0-70.0) H 07/21/19 19:02 Seg Neuts % (Manual) 62.0 % (40.0-70.0) 07/27/19 05:00 Band Neutrophils % 3.0 % 07/27/19 05:00 Lymphocytes % (Manual) 17.0 % (13.4-35.0) 07/27/19 05:00 Reactive Lymphs % (Man) 0 % 07/27/19 05:00 Monocytes % (Manual) 16.0 % (0.0-7.3) H 07/27/19 05:00 Eosinophils % (Manual) 0 % (0.0-4.3) 07/27/19 05:00 Basophils % (Manual) 0 % (0.0-1.8) 07/27/19 05:00 Metamyelocytes % 2.0 % 07/27/19 05:00 Myelocytes % 0 % 07/27/19 05:00 Promyelocytes % 0 % 07/27/19 05:00 Blast Cells % 0 % 07/27/19 05:00 Nucleated RBC % 2.0 % (0.0-0.9) H 07/27/19 05:00 Seg Neutrophils # 10.0 K/mm3 (1.8-7.7) H 07/21/19 19:02 Seg Neutrophils # Man 8.1 K/mm3 (1.8-7.7) H 07/27/19 05:00 Band Neutrophils # 0.4 K/mm3 07/27/19 05:00 Lymphocytes # (Manual) 2.2 K/mm3 (1.2-5.4) 07/27/19 05:00 Abs React Lymphs (Man) 0.0 K/mm3 07/27/19 05:00 Monocytes # (Manual) 2.1 K/mm3 (0.0-0.8) H 07/27/19 05:00 Eosinophils # (Manual) 0.0 K/mm3 (0.0-0.4) 07/27/19 05:00 Basophils # (Manual) 0.0 K/mm3 (0.0-0.1) 07/27/19 05:00 Metamyelocytes # 0.3 K/mm3 07/27/19 05:00 Myelocytes # 0.0 K/mm3 07/27/19 05:00 Promyelocytes # 0.0 K/mm3 07/27/19 05:00 Blast Cells # 0.0 K/mm3 07/27/19 05:00 WBC Morphology Not Reportable 07/27/19 05:00 Hypersegmented Neuts Not Reportable 07/27/19 05:00 Hyposegmented Neuts Not Reportable 07/27/19 05:00 Hypogranular Neuts Not Reportable 07/27/19 05:00 Smudge Cells Not Reportable 07/27/19 05:00 Toxic Granulation Not Reportable 07/27/19 05:00 Toxic Vacuolation Not Reportable 07/27/19 05:00 Dohle Bodies Not Reportable 07/27/19 05:00 Pelger-Huet Anomaly Not Reportable 07/27/19 05:00 Alea Rods Not Reportable 07/27/19 05:00 Platelet Estimate Consistent w auto 07/27/19 05:00 Clumped Platelets Not Reportable 07/27/19 05:00 Plt Clumps, EDTA Not Reportable 07/27/19 05:00 Large Platelets Not Reportable 07/27/19 05:00 Giant Platelets Not Reportable 07/27/19 05:00 Platelet Satelliting Not Reportable 07/27/19 05:00 Plt Morphology Comment Not Reportable 07/27/19 05:00 RBC Morphology Not Reportable 07/27/19 05:00 Dimorphic RBCs Not Reportable 07/27/19 05:00 Polychromasia Rare 07/27/19 05:00 Hypochromasia Not Reportable 07/27/19 05:00 Poikilocytosis Not Reportable 07/27/19 05:00 Anisocytosis Few 07/27/19 05:00 Microcytosis Not Reportable 07/27/19 05:00 Macrocytosis Not Reportable 07/27/19 05:00 Spherocytes Not Reportable 07/27/19 05:00 Pappenheimer Bodies Not Reportable 07/27/19 05:00 Sickle Cells Not Reportable 07/27/19 05:00 Target Cells Not Reportable 07/27/19 05:00 Tear Drop Cells Not Reportable 07/27/19 05:00 Ovalocytes Few 07/27/19 05:00 Helmet Cells Not Reportable 07/27/19 05:00 [place] Bodies Not Reportable 07/27/19 05:00 [place] Rings Not Reportable 07/27/19 05:00 [place] Cells Not Reportable 07/27/19 05:00 Bite Cells Not Reportable 07/27/19 05:00 Crenated Cell Not Reportable 07/27/19 05:00 Elliptocytes Not Reportable 07/27/19 05:00 Acanthocytes (Spur) Not Reportable 07/27/19 05:00 Rouleaux Not Reportable 07/27/19 05:00 Hemoglobin C Crystals Not Reportable 07/27/19 05:00 Schistocytes Not Reportable 07/27/19 05:00 Malaria parasites Not Reportable 07/27/19 05:00 Emanuel Bodies Not Reportable 07/27/19 05:00 Hem Pathologist Commnt No 07/27/19 05:00 D-Dimer 886.89 ng/mlDDU (0-234) H 07/22/19 21:45 Heparin Anti-Xa, Unfract Negative (Negative) 07/24/19 09:18 POC ABG pH 7.464 (7.35-7.45) H 07/24/19 18:44 ABG pH 7.358 pH Units (7.350-7.450) 07/27/19 06:10 POC ABG pCO2 36.2 (35-45) 07/24/19 18:44 ABG pCO2 44.0 mm Hg 07/27/19 06:10 POC ABG pO2 125 (80-105) H 07/24/19 18:44 ABG pO2 84.6 mm Hg (80.0-90.0) 07/27/19 06:10 POC ABG HCO3 26.0 (22-26 mml/L) 07/24/19 18:44 ABG HCO3 24.2 mmol/L (20.0-26.0) 07/27/19 06:10 POC ABG Total CO2 27 (23-27mmol/L) 07/24/19 18:44 POC ABG O2 Sat 99 07/24/19 18:44 ABG O2 Saturation 96.3 % (95.0-99.0) 07/27/19 06:10 ABG O2 Content 16.7 (0.0-44) 07/27/19 06:10 POC ABG Base Excess 2 ((-2) - (+3)mmol/L) 07/24/19 18:44 ABG Base Excess -1.4 mmol/L (-2.0-3.0) 07/27/19 06:10 ABG Hemoglobin 12.6 gm/dl (14.0-18.0) L 07/27/19 06:10 ABG Carboxyhemoglobin 1.7 % (0.0-5.0) 07/27/19 06:10 ABG Methemoglobin 0.6 % (0.0-1.5) 07/27/19 06:10 Oxyhemoglobin 94.2 % (95.0-99.0) L 07/27/19 06:10 FiO2 30 % 07/27/19 06:10 Sodium 149 mmol/L (137-145) H 07/27/19 05:00 Potassium 4.1 mmol/L (3.6-5.0) 07/27/19 05:00 Chloride 114.6 mmol/L (98-107) H 07/27/19 05:00 Carbon Dioxide 25 mmol/L (22-30) 07/27/19 05:00 Anion Gap 14 mmol/L 07/27/19 05:00 BUN 17 mg/dL (9-20) 07/27/19 05:00 Creatinine 0.8 mg/dL (0.8-1.5) 07/27/19 05:00 Estimated GFR > 60 ml/min 07/27/19 05:00 BUN/Creatinine Ratio 21 % 07/27/19 05:00 Glucose 100 mg/dL (75-100) 07/27/19 05:00 POC Glucose 110 (70-105) H 07/27/19 09:49 Lactic Acid 1.10 mmol/L (0.7-2.0) 07/25/19 09:16 Calcium 7.9 mg/dL (8.4-10.2) L 07/27/19 05:00 Phosphorus 4.10 mg/dL (2.5-4.5) D 07/27/19 05:00 Magnesium 2.10 mg/dL (1.7-2.3) 07/27/19 05:00 Total Bilirubin 1.40 mg/dL (0.1-1.2) H 07/24/19 05:37 Direct Bilirubin 0.2 mg/dL (0-0.2) 07/21/19 19:02 Indirect Bilirubin 0.4 mg/dL 07/21/19 19:02 AST 107 units/L (5-40) H 07/24/19 05:37 ALT 45 units/L (7-56) 07/24/19 05:37 Alkaline Phosphatase 49 units/L (35-129) 07/24/19 05:37 Ammonia 39.0 umol/L (25-60) 07/23/19 02:50 Troponin T < 0.010 ng/mL (0.00-0.029) 07/22/19 15:33 NT-Pro-B Natriuret Pep 5407 pg/mL (0-450) H 07/22/19 21:45 Total Protein 5.3 g/dL (6.3-8.2) L 07/24/19 05:37 Albumin 2.5 g/dL (3.9-5) L 07/24/19 05:37 Albumin/Globulin Ratio 0.9 % 07/24/19 05:37 Lipase 10 units/L (13-60) L 07/21/19 19:02 TSH 0.888 mlU/mL (0.270-4.200) 07/23/19 13:06 Free T4 1.04 ng/dL (0.76-1.46) 07/23/19 13:06 Urine Color Emy (Yellow) 07/21/19 21:36 Urine Turbidity Clear (Clear) 07/21/19 21:36 Urine pH 5.0 (5.0-7.0) 07/21/19 21:36 Ur Specific [place] 1.024 (1.003-1.030) 07/21/19 21:36 Urine Protein <15 mg/dl mg/dL (Negative) 07/21/19 21:36 Urine Glucose (UA) Neg mg/dL (Negative) 07/21/19 21:36 Urine Ketones Neg mg/dL (Negative) 07/21/19 21:36 Urine Blood Neg (Negative) 07/21/19 21:36 Urine Nitrite Neg (Negative) 07/21/19 21:36 Urine Bilirubin Sm (Negative) 07/21/19 21:36 Urine Ictotest Negative (Negative) 07/21/19 21:36 Urine Urobilinogen 4.0 mg/dL (<2.0) 07/21/19 21:36 Ur Leukocyte Esterase Neg (Negative) 07/21/19 21:36 Urine WBC (Auto) 1.0 /HPF (0.0-6.0) 07/21/19 21:36 Urine RBC (Auto) 1.0 /HPF (0.0-6.0) 07/21/19 21:36 U Epithel Cells (Auto) < 1.0 /HPF (0-13.0) 07/21/19 21:36 Urine Mucus Few /HPF 07/21/19 21:36 Heparin-induced Plt Ab Negative (Negative) 07/24/19 09:18 UF Heparin High Dose 0 % Release 07/24/19 09:18 GIULIANA UFH Low Dose 0.1 1 % Release 07/24/19 09:18 GIULIANA UFH Low Dose 0.5 0 % Release 07/24/19 09:18 Hepatitis A IgM Ab Non-reactive (NonReactive) 07/23/19 13:06 Hep Bs Antigen Non-reactive (Negative) 07/23/19 13:06 Hep B Core IgM Ab Non-reactive (NonReactive) 07/23/19 13:06 Hepatitis C Antibody Non-reactive (NonReactive) 07/23/19 13:06 Blood Type A POSITIVE 07/23/19 13:06 Antibody Screen Negative 07/23/19 13:06 Active Medications - Current Medications Current Medications: Generic Name Dose Route Start Last Admin Trade Name Freq PRN Reason Stop Dose Admin Acetaminophen 650 mg 07/23/19 02:48 Tylenol TN Q4H PRN Fever >100.5 Albumin Human 25 gm 07/23/19 13:11 Alburx 25% (Albumin) IV DIOR PRN Hypotension Bisacodyl 10 mg 07/21/19 22:25 Dulcolax PO QDAY PRN Constipation Enoxaparin Sodium 40 mg 07/27/19 10:00 07/27/19 09:48 Lovenox SUB-Q 40 mg DAILY STEPHEN Administration Famotidine 20 mg 07/24/19 10:00 07/27/19 09:43 Pepcid IV 20 mg BID STEPHEN Administration Phenylephrine HCl 100 mg/ 100 mls @ 3 mls/hr 07/23/19 02:45 07/24/19 21:31 Sodium Chloride IV 0 mcg/min TITR STEPHEN 0 mls/hr Titration Protocol 50 MCG/MIN Vasopressin 20 unit/ Sodium 101 mls @ 9.09 mls/hr 07/23/19 10:00 07/25/19 09:44 Chloride IV Infused TITR STEPHEN Titration Protocol 0.03 UNITS/MIN Norepinephrine 8 mg/ Sodium 250 mls @ 3.75 mls/hr 07/23/19 12:00 07/23/19 13:08 Chloride IV 0 mcg/min TITR STEPHEN 0 mls/hr Titration Protocol 2 MCG/MIN Fentanyl Citrate 2,000 mcg in 100 mls @ 5.557 mls/hr 07/23/19 12:00 07/27/19 02:30 Fentanyl Drip Premix IV 4 mcg/kg/hr TITR STEPHEN 22.226 mls/hr Administration Protocol 1 MCG/KG/HR Cefepime HCl 2 gm in 100 mls @ 200 mls/hr 07/23/19 16:00 07/27/19 04:00 Maxipime/Ns 2 Gm/100 Ml IV 200 mls/hr Q12H STEPHEN Administration Protocol Metronidazole 500 mg in 100 mls @ 100 mls/hr 07/23/19 16:00 07/27/19 05:58 Flagyl 500 Mg/100 Ml IV 100 mls/hr Q8HR STEPHEN Administration Protocol Valproate Sodium 500 mg/ 105 mls @ 100 mls/hr 07/24/19 10:00 07/27/19 09:42 Sodium Chloride IV 100 mls/hr Q12HR STEPHEN Administration Sodium Chloride 1,000 mls @ 150 mls/hr 07/26/19 08:00 07/27/19 09:41 Nacl 0.45% 1000 Ml IV 150 mls/hr DIRECT STEPHEN Administration Fluconazole 200 mls @ 100 mls/hr 07/26/19 15:00 07/27/19 09:46 Diflucan IV 100 mls/hr Q24HR STEPHEN Administration Protocol Propofol 1,000 mg in 100 mls @ 4.353 mls/hr 07/26/19 23:00 07/27/19 08:51 Diprivan 10 Mg/Ml IV 10 mcg/kg/min TITR STEPHEN 8.706 mls/hr Titration Protocol 5 MCG/KG/MIN Ondansetron HCl 4 mg 07/21/19 22:25 07/22/19 01:07 Zofran IV 4 mg Q8H PRN Administration Nausea And Vomiting Nutrition/Malnutrition Assess - Dietary Evaluation Nutrition/Malnutrition Findings: Nutrition Notes Start: 07/23/19 10:09 Freq: Status: Active Protocol: Document 07/25/19 11:02 RS (Rec: 07/25/19 11:50 RS [id number]) Co-Sign 07/25/19 11:02 LM Nutrition Notes Initial or Follow up Reassessment Other Pertinent Diagnosis Abdominal pain, Down Syndrome, intractable N/V/C, Chronic dilated colon Current Diet NPO Labs/Tests reviewed Pertinent Medications reviewed Height 5 ft 7 in Weight 144.9 kg Roy Body Weight (kg) 67.27 BMI 50.0 Weight change and time frame correct wt obtained from bedscale Weight Status Obese Subjective/Other Information Pt still NPO d/t upcoming bowel surgery tomorrow. Per chart TPN may be considered. Will F/U for diet advancement. Correct wt obtained. Pt remains on vent. Burn Absent Trauma Absent GI Symptoms Nausea,Vomiting,Constipation Minimum of two criteria No physical signs of malnutrition #1 Nutrition Diagnosis Inadequate oral intake Diagnosis Progress(for reassessment Continues documentation) Is patient on ventilator? Yes Is Patient Ambulatory and/or Out of Bed No REE-([facility]-confined to bed) 2895.432 Kcal/Kg value to use for calculation 16 Approximate Energy Requirements Using 2318 kcal/Kg Calculation Used for Recommendations Kcal/kg Additional Notes Pro needs 2g/kg IBW: 135g/day Fluid needs 1ml/kcal Nutrition Intervention Change Diet Order: Advance diet when medically feasible Goal #1 Diet advancement to meet nutrient needs Anticipated Discharge Needs: Unable to identify at this time Follow-Up By: 07/27/19 Additional Comments F/U for diet advancement and POC - Attestation Statement I have reviewed and agreed w/ Malnutrition eval & tx plan: Yes
--- NOTE | 2019-07-27 11:22 | Progress Note ---
Assessment and Plan s/p abdominal colectomy with ileocolostomy on 07/26, pt left open for another abdominal washout and opportunity to check anastomosis. Tentative plan to return to OR this weekend. Currently stable cardiac status. Cont present cardiac management. Consider ischemic evaluation to r/o ischemic CMP once medically stabilized. DDimer is noted to be elevated - pt too unstable for V/Q scan at this time. The patient has been seen in conjunction with Dr. Gutiérrez who agrees with the assessment and plan of care. - Patient Problems (1) Acute respiratory failure Current Visit: Yes Status: Acute (2) Ischemic necrosis of large intestine Current Visit: Yes Status: Acute (3) Constipation Current Visit: Yes Status: Acute (4) Intractable vomiting with nausea Current Visit: Yes Status: Acute (5) Sinus tachycardia Current Visit: Yes Status: Resolved (6) Hypotension Current Visit: Yes Status: Resolved (7) Acute renal failure Current Visit: Yes Status: Acute (8) Hyperkalemia Current Visit: Yes Status: Acute (9) Leukocytosis Current Visit: Yes Status: Acute (10) Lactic acidosis Current Visit: Yes Status: Acute (11) Elevated d-dimer Current Visit: Yes Status: Acute (12) Cardiomyopathy Current Visit: Yes Status: Acute Subjective Date of service: 07/27/19 Principal diagnosis: Respiratory Failure Interval history: pt remains intubated, sedated, currently off vasopressor support. in SR HR 70s on telemetry. no family at bedside. Objective Last Vital Signs Temp 98.7 F 07/27/19 08:00 Pulse 60 07/27/19 11:11 Resp 20 07/27/19 11:11 BP 120/57 07/27/19 11:11 Pulse Ox 100 07/27/19 11:11 - Physical Examination General: Other (intubated) Neck: Positive: neck supple, trachea midline Cardiac: Positive: Reg Rate and Rhythm, S1/S2 Lungs: Positive: Decreased Breath Sounds Neuro: Positive: Other (intubated) Skin: Positive: Other (abdominal surgical site). Negative: Rash Extremities: Absent: edema - Labs and Meds CBC 07/27/19 Range/Units 05:00 WBC 13.1 H (4.5-11.0) K/mm3 RBC 4.05 (3.65-5.03) M/mm3 Hgb 12.6 (11.8-15.2) gm/dl Hct 38.2 (35.5-45.6) % Plt Count 113 L (140-440) K/mm3 Comprehensive Metabolic Panel 07/27/19 Range/Units 05:00 Sodium 149 H (137-145) mmol/L Potassium 4.1 (3.6-5.0) mmol/L Chloride 114.6 H (98-107) mmol/L Carbon Dioxide 25 (22-30) mmol/L BUN 17 (9-20) mg/dL Creatinine 0.8 (0.8-1.5) mg/dL Glucose 100 (75-100) mg/dL Calcium 7.9 L (8.4-10.2) mg/dL - Imaging and Cardiology EKG: report reviewed, image reviewed Stress echo: report reviewed, image reviewed Echo: report reviewed ( EF 25-30%, LV mildly dilated, impaired relaxation, trivial pericardial effusion, mod pleural effusion. ) - Telemetry EKG Rhythm: Sinus Rhythm - EKG Sinus rhythms and dysrhythmias: sinus tachycardia
[2019-07-27] MEDS: PROPOFOL 1,000 MG/100 ML BOTTLE IV SCH ×2 (12:55→23:01)
--- NOTE | 2019-07-27 12:56 | Progress Note ---
Assessment and Plan Cultures: 07/21/2019 blood culture: No growth A/P: 19-year-old male with Down syndrome admitted with severe constipation and fecal impaction: 1) Septic shock: resolved. intra-abdominal source. s/p ex-lap on 07/23/2019, findings of multiple distinct areas of necrosis on transverse colon. Rest of intestines were normal. Gen. Surg following. 2) Acute renal failure: resolved. Creatinine normal. Dose adjust abx accordingly. 3) Fecal impaction, colonic distention and shock: s/p ex-lap on 07/23/2019, findings of multiple distinct areas of necrosis on transverse colon. rest of intestines were normal. Gen. Surg following, s/p washout on 07/26/2019 along with abdominal colectomy with ileosigmoid anastomosis, open abdomen with plans for re-trip to OR. 4) Acute respiratory failure: Intubated, on vent. Recs: Continue IV Cefepime, Flagyl, Fluconazole Stop abx 2 days post abdominal closure Meghan Williamson MD, FACP [facility] C: [phone] O: [phone] F: [phone] Subjective Date of service: 07/27/19 Principal diagnosis: Respiratory Failure Interval history: No fever. Remains intubated, sedated. Stable. Objective - Exam Narrative Exam: Physical Exam: Constitutional: sedated, intubated Head, Ears, Nose: Normocephalic, atraumatic. External ears, nose normal Eyes: Conjunctivae/corneas clear. No icterus. No ptosis. Neck: intubated Oral: intubated Cardiovascular: S1, S2 normal. Respiratory: Good air entry, clear to auscultation bilaterally GI: soft, midline woundVAC +, bowel sounds absent Musculoskeletal: No pedal edema, no cyanosis. Dialysis catheter present Skin: No rash or abscess Hem/Lymphatic: No palpable cervical or supraclavicular nodes. No lymphangitis Psych: no agitation Neurological: sedated, intubated, on vent - Constitutional Vitals: Vital Signs Temp Pulse Resp BP Pulse Ox 97.6 F 59 L 20 124/58 98 07/27/19 11:48 07/27/19 12:05 07/27/19 11:11 07/27/19 12:05 07/27/19 12:05 Temperature -Last 24 Hours Temperature 97.6 F Temperature 98.7 F Temperature 98.9 F Temperature 98.3 F Temperature 98.8 F Temperature 98.0 F - Labs CBC & Chem 7: 07/27/19 05:00 07/27/19 05:00 Labs: Abnormal lab results 07/27/19 07/27/19 07/27/19 Range/Units 05:00 05:00 06:10 WBC 13.1 H (4.5-11.0) K/mm3 RDW 15.8 H (13.2-15.2) % Plt Count 113 L (140-440) K/mm3 Monocytes % (Manual) 16.0 H (0.0-7.3) % Nucleated RBC % 2.0 H (0.0-0.9) % Seg Neutrophils # Man 8.1 H (1.8-7.7) K/mm3 Monocytes # (Manual) 2.1 H (0.0-0.8) K/mm3 ABG Hemoglobin 12.6 L (14.0-18.0) gm/dl Oxyhemoglobin 94.2 L (95.0-99.0) % Sodium 149 H (137-145) mmol/L Chloride 114.6 H (98-107) mmol/L POC Glucose (70-105) Calcium 7.9 L (8.4-10.2) mg/dL 07/27/19 Range/Units 09:49 WBC (4.5-11.0) K/mm3 RDW (13.2-15.2) % Plt Count (140-440) K/mm3 Monocytes % (Manual) (0.0-7.3) % Nucleated RBC % (0.0-0.9) % Seg Neutrophils # Man (1.8-7.7) K/mm3 Monocytes # (Manual) (0.0-0.8) K/mm3 ABG Hemoglobin (14.0-18.0) gm/dl Oxyhemoglobin (95.0-99.0) % Sodium (137-145) mmol/L Chloride (98-107) mmol/L POC Glucose 110 H (70-105) Calcium (8.4-10.2) mg/dL
--- NOTE | 2019-07-27 16:44 | Event Note ---
Date: 07/27/[address] Tilley. Will schedule for reexploration of the abdomen with washout and possible closure of wound in am 07/28/2019 at 12pm. Consent obtained by Dr. Tilley. Called patient's mother and updated her.
--- NOTE | 2019-07-27 17:23 | Progress Note ---
Assessment and Plan Imp: 1. Constipation -> diarrhea after laxatives 2. Sepsis, 2/2 bowel necrosis 3. [place], ? contrast-induced + sepsis 4. Hyperkalemia 2/2 #2 and 3, resolved 5. Obesity 6. Acute respiratory failure, hypoxia/hypercapnea 7. Lactic acidosis, resolved 8. Thrombocytopenia, probably due to sepsis + Vanco/Zosyn 9. Hypernatremia Rec: 1. ABX per ID 2. Off pressors; lactate normalized 3. Holding HD 4. LE dopplers negative; D-dimer likely elevated due to sepsis; PE unlikely; hold off on V/Q for now 5. Another surgery planned for Tuesday; leave intubated until surgeries completed 6. NGT to LIWS 7. Fentanyl/Propofol drips 8. Nutrition consult for TPN 9. Fem line out; midline placed 10. HIT negative; platelets improving; consider resuming Lovenox soon 11. / NS 12. Complex decision-making Plan of care reviewed w/ mother, she understands/agrees Subjective Date of service: 07/27/19 Principal diagnosis: Respiratory Failure Interval history: Remains off pressors. Sedated on Fentanyl and Propofol started overnight at 10mcg. Active Medications Acetaminophen (Tylenol) 650 mg LA Q4H PRN PRN Reason: Fever >100.5 Albumin Human (Alburx 25% (Albumin)) 25 gm IV DIOR PRN PRN Reason: Hypotension Bisacodyl (Dulcolax) 10 mg PO QDAY PRN PRN Reason: Constipation Enoxaparin Sodium (Lovenox) 40 mg SUB-Q DAILY [facility] Last Admin: 07/27/19 09:48 Dose: 40 mg Documented by: Famotidine (Pepcid) 20 mg IV BID STEPHEN Last Admin: 07/27/19 09:43 Dose: 20 mg Documented by: Phenylephrine HCl 100 mg/ (Sodium Chloride) 100 mls @ 3 mls/hr IV TITR STEPHEN; Protocol Last Titration: 07/24/19 21:31 Dose: 0 mcg/min, 0 mls/hr Documented by: Vasopressin 20 unit/ Sodium (Chloride) 101 mls @ 9.09 mls/hr IV TITR STEPHEN; Protocol Last Titration: 07/25/19 09:44 Dose: Infused Documented by: Norepinephrine 8 mg/ Sodium (Chloride) 250 mls @ 3.75 mls/hr IV TITR STEPHEN; Protocol Last Titration: 07/23/19 13:08 Dose: 0 mcg/min, 0 mls/hr Documented by: Fentanyl Citrate (Fentanyl Drip Premix) 2,000 mcg in 100 mls @ 5.557 mls/hr IV TITR STEPHEN; Protocol Last Admin: 07/27/19 13:20 Dose: 4 mcg/kg/hr, 22.226 mls/hr Documented by: Cefepime HCl (Maxipime/Ns 2 Gm/100 Ml) 2 gm in 100 mls @ 200 mls/hr IV Q12H STEPHEN; Protocol Last Admin: 07/27/19 16:54 Dose: 200 mls/hr Documented by: Metronidazole (Flagyl 500 Mg/100 Ml) 500 mg in 100 mls @ 100 mls/hr IV Q8HR STEPHEN; Protocol Last Admin: 07/27/19 13:21 Dose: 100 mls/hr Documented by: Valproate Sodium 500 mg/ (Sodium Chloride) 105 mls @ 100 mls/hr IV Q12HR STEPHEN Last Admin: 07/27/19 09:42 Dose: 100 mls/hr Documented by: Sodium Chloride (Nacl 0.45% 1000 Ml) 1,000 mls @ 150 mls/hr IV DIRECT STEPHEN Stop: 07/27/19 23:00 Last Admin: 07/27/19 09:41 Dose: 150 mls/hr Documented by: Fluconazole (Diflucan) 200 mls @ 100 mls/hr IV Q24HR STEPHEN; Protocol Last Admin: 07/27/19 09:46 Dose: 100 mls/hr Documented by: Propofol (Diprivan 10 Mg/Ml) 1,000 mg in 100 mls @ 4.353 mls/hr IV TITR STEPHEN; Protocol Last Admin: 07/27/19 12:55 Dose: 10 mcg/kg/min, 8.706 mls/hr Documented by: Amino Acids/Electrolytes/Dextrose (Tpn Adult) 2,016 mls @ 84 mls/hr IV DAILY@2000 STEPHEN; Protocol Stop: 07/28/19 19:59 Ondansetron HCl (Zofran) 4 mg IV Q8H PRN PRN Reason: Nausea And Vomiting Last Admin: 07/22/19 01:07 Dose: 4 mg Documented by: Objective Vital Signs - 12hr 07/27/19 07/27/19 07/27/19 05:30 05:40 05:50 Temperature Pulse Rate 67 70 94 H Pulse Rate [ From Monitor] Respiratory 19 19 17 Rate Blood Pressure 147/57 136/55 144/61 O2 Sat by Pulse 97 98 94 Oximetry 07/27/19 07/27/19 07/27/19 06:00 06:10 06:20 Temperature Pulse Rate 96 H 94 H 87 Pulse Rate [ From Monitor] Respiratory 18 17 18 Rate Blood Pressure 144/61 152/70 156/69 O2 Sat by Pulse 96 95 98 Oximetry 07/27/19 07/27/19 07/27/19 06:30 06:40 06:50 Temperature Pulse Rate 126 H 104 H 94 H Pulse Rate [ From Monitor] Respiratory 22 18 21 Rate Blood Pressure 156/69 158/65 126/62 O2 Sat by Pulse 70 L 96 95 Oximetry 07/27/19 07/27/19 07/27/19 07:00 07:10 07:20 Temperature Pulse Rate 106 H 96 H 100 H Pulse Rate [ From Monitor] Respiratory 19 22 15 Rate Blood Pressure 126/62 134/63 136/66 O2 Sat by Pulse 95 96 97 Oximetry 07/27/19 07/27/19 07/27/19 07:30 07:35 07:40 Temperature Pulse Rate 103 H 99 H 98 H Pulse Rate [ From Monitor] Respiratory 18 17 Rate Blood Pressure 136/66 158/80 158/80 O2 Sat by Pulse 99 97 97 Oximetry 07/27/19 07/27/19 07/27/19 07:50 08:00 08:10 Temperature 98.7 F Pulse Rate 100 H 79 91 H Pulse Rate [ 107 H From Monitor] Respiratory 18 19 18 Rate Blood Pressure 151/84 140/80 140/80 O2 Sat by Pulse 97 95 98 Oximetry 07/27/19 07/27/19 07/27/19 08:20 08:30 08:40 Temperature Pulse Rate 94 H Pulse Rate [ From Monitor] Respiratory 18 Rate Blood Pressure 152/69 130/60 130/60 O2 Sat by Pulse 99 100 96 Oximetry 07/27/19 07/27/19 07/27/19 08:50 09:00 09:10 Temperature Pulse Rate 87 77 75 Pulse Rate [ From Monitor] Respiratory 18 22 20 Rate Blood Pressure 126/52 123/58 123/58 O2 Sat by Pulse 96 98 98 Oximetry 10/07/27/19 07/27/19 09:20 09:30 09:40 Temperature Pulse Rate 71 75 75 Pulse Rate [ From Monitor] Respiratory 18 19 18 Rate Blood Pressure 115/64 121/55 121/55 O2 Sat by Pulse 97 98 98 Oximetry 07/27/19 07/27/19 07/27/19 09:50 10:00 10:10 Temperature Pulse Rate 67 67 66 Pulse Rate [ From Monitor] Respiratory 19 19 19 Rate Blood Pressure 118/53 114/49 114/49 O2 Sat by Pulse 98 100 99 Oximetry 07/27/19 07/27/19 07/27/19 10:20 10:30 10:40 Temperature Pulse Rate 63 56 L 58 L Pulse Rate [ From Monitor] Respiratory 19 20 20 Rate Blood Pressure 118/54 116/50 116/50 O2 Sat by Pulse 99 100 100 Oximetry 07/27/19 07/27/19 07/27/19 10:50 11:00 11:11 Temperature Pulse Rate 59 L 57 L 60 Pulse Rate [ From Monitor] Respiratory 20 19 20 Rate Blood Pressure 120/57 120/57 120/57 O2 Sat by Pulse 99 99 100 Oximetry 07/27/19 07/27/19 07/27/19 11:21 11:30 11:41 Temperature Pulse Rate 66 60 61 Pulse Rate [ From Monitor] Respiratory 14 11 L 20 Rate Blood Pressure 114/52 123/53 123/53 O2 Sat by Pulse 99 100 100 Oximetry 07/27/19 07/27/19 07/27/19 11:48 11:51 12:00 Temperature 97.6 F 97.6 F Pulse Rate 59 L 56 L Pulse Rate [ 59 L From Monitor] Respiratory 18 20 Rate Blood Pressure 124/53 124/58 O2 Sat by Pulse 100 99 Oximetry 07/27/19 07/27/19 07/27/19 12:05 12:11 12:21 Temperature Pulse Rate 59 L 59 L 57 L Pulse Rate [ From Monitor] Respiratory 19 18 Rate Blood Pressure 124/58 124/58 119/53 O2 Sat by Pulse 98 99 99 Oximetry 07/27/19 07/27/19 07/27/19 12:30 12:41 12:51 Temperature Pulse Rate 58 L 61 64 Pulse Rate [ From Monitor] Respiratory 15 15 18 Rate Blood Pressure 122/54 122/54 125/54 O2 Sat by Pulse 100 100 100 Oximetry 07/27/19 07/27/19 07/27/19 13:00 13:11 13:21 Temperature Pulse Rate 60 59 L 57 L Pulse Rate [ From Monitor] Respiratory 11 L 13 18 Rate Blood Pressure 121/49 121/49 120/48 O2 Sat by Pulse 99 100 100 Oximetry 07/27/19 07/27/19 07/27/19 13:30 13:41 13:51 Temperature Pulse Rate 55 L 60 61 Pulse Rate [ From Monitor] Respiratory 17 20 18 Rate Blood Pressure 121/53 121/53 120/53 O2 Sat by Pulse 99 99 99 Oximetry 07/27/19 07/27/19 07/27/19 14:00 14:30 15:00 Temperature Pulse Rate 58 L 59 L 58 L Pulse Rate [ From Monitor] Respiratory 13 15 18 Rate Blood Pressure 121/57 124/51 105/36 O2 Sat by Pulse 99 100 99 Oximetry 07/27/19 07/27/19 15:30 16:00 Temperature Pulse Rate 61 56 L Pulse Rate [ 58 L From Monitor] Respiratory 18 18 Rate Blood Pressure 106/43 106/38 O2 Sat by Pulse 99 98 Oximetry Constitutional: other (obese, sedated, critically ill on ventilator) Eyes: non-icteric ENT: oropharynx moist Neck: supple Effort: normal Ascultation: Bilateral: diminished breath sounds (due to obesity) Cardiovascular: other (sinus tachy, no mrg, regular rhythm) Gastrointestinal: normoactive bowel sounds, soft, other (morbidly obese abd) Integumentary: normal Extremities: no cyanosis, no edema, pink and warm Neurologic: normal mental status, non-focal exam, pupils equal and round Psychiatric: mood appropriate, affect normal CBC and BMP: 07/27/19 05:00 07/27/19 05:00 ABG, PT/INR, D-dimer: ABG POC ABG pH 7.464 (7.35-7.45) H 07/24/19 18:44 ABG pH 7.358 pH Units (7.350-7.450) 07/27/19 06:10 POC ABG pCO2 36.2 (35-45) 07/24/19 18:44 ABG pCO2 44.0 mm Hg 07/27/19 06:10 POC ABG pO2 125 (80-105) H 07/24/19 18:44 ABG pO2 84.6 mm Hg (80.0-90.0) 07/27/19 06:10 POC ABG HCO3 26.0 (22-26 mml/L) 07/24/19 18:44 POC ABG Total CO2 27 (23-27mmol/L) 07/24/19 18:44 POC ABG O2 Sat 99 07/24/19 18:44 ABG O2 Saturation 96.3 % (95.0-99.0) 07/27/19 06:10 PT/INR, D-dimer D-Dimer 886.89 ng/mlDDU (0-234) H 07/22/19 21:45 Abnormal lab findings: Abnormal Labs 07/21/19 07/21/19 07/22/19 19:02 19:02 10:50 WBC 12.1 H 13.7 H RBC 5.56 H Hgb 17.1 H Hct 52.9 H D MCV 95 H 95 H RDW Plt Count 130 L 137 L Lymph % (Auto) 7.2 L [place] % (Auto) 9.6 H Lymph # 0.9 L [place] # 1.2 H Seg Neutrophils % 82.8 H Lymphocytes % (Manual) Monocytes % (Manual) Nucleated RBC % Seg Neutrophils # 10.0 H Seg Neutrophils # Man Lymphocytes # (Manual) Monocytes # (Manual) D-Dimer POC ABG pH ABG pH POC ABG pCO2 POC ABG pO2 ABG pO2 ABG O2 Saturation ABG Hemoglobin Oxyhemoglobin Sodium 136 L Potassium Chloride 95.9 L Carbon Dioxide BUN Creatinine Glucose 163 H POC Glucose Lactic Acid Calcium Phosphorus Magnesium Total Bilirubin AST NT-Pro-B Natriuret Pep Total Protein Albumin Lipase 10 L 07/22/19 07/22/19 07/22/19 10:50 15:33 15:33 WBC 13.1 H RBC 5.10 H Hgb 15.9 H Hct 49.0 H MCV 96 H RDW Plt Count 127 L Lymph % (Auto) [place] % (Auto) Lymph # [place] # Seg Neutrophils % Lymphocytes % (Manual) Monocytes % (Manual) Nucleated RBC % Seg Neutrophils # Seg Neutrophils # Man Lymphocytes # (Manual) Monocytes # (Manual) D-Dimer POC ABG pH ABG pH POC ABG pCO2 POC ABG pO2 ABG pO2 ABG O2 Saturation ABG Hemoglobin Oxyhemoglobin Sodium 136 L Potassium 5.3 H D 6.0 H Chloride 96.7 L Carbon Dioxide 17 L BUN 22 H 29 H Creatinine 2.0 H D 2.2 H Glucose 129 H 121 H POC Glucose Lactic Acid Calcium 8.2 L Phosphorus 4.70 H Magnesium 3.10 H Total Bilirubin AST NT-Pro-B Natriuret Pep Total Protein Albumin Lipase 07/22/19 07/22/19 07/22/19 18:19 18:42 21:45 WBC RBC Hgb Hct MCV RDW Plt Count Lymph % (Auto) [place] % (Auto) Lymph # [place] # Seg Neutrophils % Lymphocytes % (Manual) Monocytes % (Manual) Nucleated RBC % Seg Neutrophils # Seg Neutrophils # Man Lymphocytes # (Manual) Monocytes # (Manual) D-Dimer 886.89 H POC ABG pH 7.197 L ABG pH POC ABG pCO2 45.2 H POC ABG pO2 ABG pO2 ABG O2 Saturation ABG Hemoglobin Oxyhemoglobin Sodium Potassium Chloride Carbon Dioxide BUN Creatinine Glucose POC Glucose 107 H Lactic Acid Calcium Phosphorus Magnesium Total Bilirubin AST NT-Pro-B Natriuret Pep Total Protein Albumin Lipase 07/22/19 07/22/19 07/22/19 21:45 21:45 21:45 WBC RBC Hgb Hct MCV RDW Plt Count Lymph % (Auto) [place] % (Auto) Lymph # [place] # Seg Neutrophils % Lymphocytes % (Manual) Monocytes % (Manual) Nucleated RBC % Seg Neutrophils # Seg Neutrophils # Man Lymphocytes # (Manual) Monocytes # (Manual) D-Dimer POC ABG pH ABG pH POC ABG pCO2 POC ABG pO2 ABG pO2 ABG O2 Saturation ABG Hemoglobin Oxyhemoglobin Sodium 136 L Potassium 5.6 H Chloride Carbon Dioxide 20 L BUN 38 H Creatinine 2.6 H Glucose 63 L POC Glucose Lactic Acid 3.10 H* Calcium 8.2 L Phosphorus Magnesium Total Bilirubin AST NT-Pro-B Natriuret Pep 5407 H Total Protein Albumin Lipase 07/23/19 07/23/19 07/23/19 02:11 02:50 02:50 WBC 15.0 H RBC Hgb Hct MCV 95 H RDW Plt Count 118 L Lymph % (Auto) [place] % (Auto) Lymph # [place] # Seg Neutrophils % Lymphocytes % (Manual) 9.0 L Monocytes % (Manual) 17.0 H Nucleated RBC % Seg Neutrophils # Seg Neutrophils # Man Lymphocytes # (Manual) Monocytes # (Manual) 2.6 H D-Dimer POC ABG pH ABG pH POC ABG pCO2 POC ABG pO2 ABG pO2 ABG O2 Saturation ABG Hemoglobin Oxyhemoglobin Sodium Potassium Chloride Carbon Dioxide BUN Creatinine Glucose POC Glucose 69 L Lactic Acid 3.30 H* Calcium Phosphorus Magnesium Total Bilirubin AST NT-Pro-B Natriuret Pep Total Protein Albumin Lipase 07/23/19 07/23/19 07/23/19 02:50 03:09 04:30 WBC RBC Hgb Hct MCV RDW Plt Count Lymph % (Auto) [place] % (Auto) Lymph # [place] # Seg Neutrophils % Lymphocytes % (Manual) Monocytes % (Manual) Nucleated RBC % Seg Neutrophils # Seg Neutrophils # Man Lymphocytes # (Manual) Monocytes # (Manual) D-Dimer POC ABG pH 7.296 L ABG pH POC ABG pCO2 POC ABG pO2 66 L ABG pO2 ABG O2 Saturation ABG Hemoglobin Oxyhemoglobin Sodium 134 L Potassium 7.5 H* D Chloride Carbon Dioxide 21 L BUN 47 H Creatinine 2.7 H Glucose POC Glucose Lactic Acid 3.50 H* Calcium 7.6 L Phosphorus Magnesium 2.90 H Total Bilirubin AST 60 H NT-Pro-B Natriuret Pep Total Protein 5.5 L D Albumin 2.5 L Lipase 07/23/19 07/23/19 07/23/19 07:30 09:03 09:03 WBC RBC Hgb Hct MCV RDW Plt Count Lymph % (Auto) [place] % (Auto) Lymph # [place] # Seg Neutrophils % Lymphocytes % (Manual) Monocytes % (Manual) Nucleated RBC % Seg Neutrophils # Seg Neutrophils # Man Lymphocytes # (Manual) Monocytes # (Manual) D-Dimer POC ABG pH ABG pH POC ABG pCO2 POC ABG pO2 ABG pO2 ABG O2 Saturation ABG Hemoglobin Oxyhemoglobin Sodium 136 L Potassium 6.6 H* 7.1 H* Chloride Carbon Dioxide 20 L BUN 50 H 49 H Creatinine 2.6 H 2.4 H Glucose 67 L POC Glucose Lactic Acid 4.10 H* Calcium 7.6 L 7.7 L Phosphorus Magnesium Total Bilirubin AST NT-Pro-B Natriuret Pep Total Protein Albumin Lipase 07/23/19 07/23/19 07/23/19 10:52 13:13 14:48 WBC RBC Hgb Hct MCV RDW Plt Count Lymph % (Auto) [place] % (Auto) Lymph # [place] # Seg Neutrophils % Lymphocytes % (Manual) Monocytes % (Manual) Nucleated RBC % Seg Neutrophils # Seg Neutrophils # Man Lymphocytes # (Manual) Monocytes # (Manual) D-Dimer POC ABG pH 7.280 L ABG pH POC ABG pCO2 48.7 H POC ABG pO2 ABG pO2 ABG O2 Saturation ABG Hemoglobin Oxyhemoglobin Sodium Potassium Chloride Carbon Dioxide BUN Creatinine Glucose POC Glucose 123 H Lactic Acid 4.10 H* Calcium Phosphorus Magnesium Total Bilirubin AST NT-Pro-B Natriuret Pep Total Protein Albumin Lipase 07/23/19 07/23/19 07/23/19 15:56 17:35 Unknown WBC RBC Hgb Hct MCV RDW Plt Count Lymph % (Auto) [place] % (Auto) Lymph # [place] # Seg Neutrophils % Lymphocytes % (Manual) Monocytes % (Manual) Nucleated RBC % Seg Neutrophils # Seg Neutrophils # Man Lymphocytes # (Manual) Monocytes # (Manual) D-Dimer POC ABG pH ABG pH POC ABG pCO2 POC ABG pO2 ABG pO2 ABG O2 Saturation ABG Hemoglobin Oxyhemoglobin Sodium Potassium Chloride Carbon Dioxide BUN Creatinine Glucose POC Glucose Lactic Acid 3.00 H* 4.10 H* 4.90 H* Calcium Phosphorus Magnesium Total Bilirubin AST NT-Pro-B Natriuret Pep Total Protein Albumin Lipase 07/23/19 07/24/19 07/24/19 Unknown 00:05 00:40 WBC RBC Hgb Hct MCV RDW Plt Count Lymph % (Auto) [place] % (Auto) Lymph # [place] # Seg Neutrophils % Lymphocytes % (Manual) Monocytes % (Manual) Nucleated RBC % Seg Neutrophils # Seg Neutrophils # Man Lymphocytes # (Manual) Monocytes # (Manual) D-Dimer POC ABG pH ABG pH POC ABG pCO2 POC ABG pO2 ABG pO2 151.3 H ABG O2 Saturation ABG Hemoglobin Oxyhemoglobin Sodium Potassium 5.6 H D Chloride Carbon Dioxide BUN 29 H Creatinine Glucose 128 H POC Glucose 118 H Lactic Acid Calcium 7.4 L Phosphorus Magnesium Total Bilirubin AST NT-Pro-B Natriuret Pep Total Protein Albumin Lipase 07/24/19 07/24/19 07/24/19 04:00 05:37 05:37 WBC RBC Hgb Hct MCV RDW Plt Count 89 L Lymph % (Auto) [place] % (Auto) Lymph # [place] # Seg Neutrophils % Lymphocytes % (Manual) 5.0 L Monocytes % (Manual) Nucleated RBC % Seg Neutrophils # Seg Neutrophils # Man Lymphocytes # (Manual) 0.5 L Monocytes # (Manual) D-Dimer POC ABG pH ABG pH POC ABG pCO2 POC ABG pO2 ABG pO2 ABG O2 Saturation ABG Hemoglobin Oxyhemoglobin Sodium Potassium Chloride Carbon Dioxide BUN 29 H Creatinine Glucose 120 H POC Glucose 123 H Lactic Acid Calcium 7.4 L Phosphorus 2.30 L D Magnesium Total Bilirubin 1.40 H AST 107 H NT-Pro-B Natriuret Pep Total Protein 5.3 L Albumin 2.5 L Lipase 07/24/19 07/24/19 07/24/19 05:37 10:18 18:44 WBC RBC Hgb Hct MCV RDW Plt Count Lymph % (Auto) [place] % (Auto) Lymph # [place] # Seg Neutrophils % Lymphocytes % (Manual) Monocytes % (Manual) Nucleated RBC % Seg Neutrophils # Seg Neutrophils # Man Lymphocytes # (Manual) Monocytes # (Manual) D-Dimer POC ABG pH 7.464 H ABG pH POC ABG pCO2 POC ABG pO2 125 H ABG pO2 ABG O2 Saturation ABG Hemoglobin Oxyhemoglobin Sodium Potassium Chloride Carbon Dioxide BUN Creatinine Glucose POC Glucose 130 H Lactic Acid 3.90 H* Calcium Phosphorus Magnesium Total Bilirubin AST NT-Pro-B Natriuret Pep Total Protein Albumin Lipase 07/24/19 07/25/19 07/25/19 18:52 04:45 04:45 WBC RBC Hgb Hct MCV RDW Plt Count 91 L Lymph % (Auto) [place] % (Auto) Lymph # [place] # Seg Neutrophils % Lymphocytes % (Manual) Monocytes % (Manual) Nucleated RBC % Seg Neutrophils # Seg Neutrophils # Man Lymphocytes # (Manual) Monocytes # (Manual) D-Dimer POC ABG pH ABG pH POC ABG pCO2 POC ABG pO2 ABG pO2 ABG O2 Saturation ABG Hemoglobin Oxyhemoglobin Sodium Potassium Chloride Carbon Dioxide BUN 24 H Creatinine Glucose POC Glucose 107 H Lactic Acid Calcium 7.9 L Phosphorus 2.20 L Magnesium Total Bilirubin AST NT-Pro-B Natriuret Pep Total Protein Albumin Lipase 07/25/19 07/26/19 07/26/19 05:32 02:20 05:00 WBC RBC Hgb Hct MCV RDW Plt Count Lymph % (Auto) [place] % (Auto) Lymph # [place] # Seg Neutrophils % Lymphocytes % (Manual) Monocytes % (Manual) Nucleated RBC % Seg Neutrophils # Seg Neutrophils # Man Lymphocytes # (Manual) Monocytes # (Manual) D-Dimer POC ABG pH ABG pH POC ABG pCO2 POC ABG pO2 ABG pO2 70.6 L ABG O2 Saturation 94.7 L ABG Hemoglobin 12.0 L Oxyhemoglobin 92.8 L Sodium 148 H Potassium Chloride 112.1 H Carbon Dioxide BUN Creatinine 0.6 L Glucose 71 L POC Glucose 62 L Lactic Acid Calcium 8.3 L Phosphorus Magnesium Total Bilirubin AST NT-Pro-B Natriuret Pep Total Protein Albumin Lipase 07/26/19 07/26/19 07/27/19 05:45 05:47 05:00 WBC 13.1 H RBC Hgb Hct MCV RDW 15.8 H Plt Count 113 L Lymph % (Auto) [place] % (Auto) Lymph # [place] # Seg Neutrophils % Lymphocytes % (Manual) Monocytes % (Manual) 16.0 H Nucleated RBC % 2.0 H Seg Neutrophils # Seg Neutrophils # Man 8.1 H Lymphocytes # (Manual) Monocytes # (Manual) 2.1 H D-Dimer POC ABG pH ABG pH 7.309 L POC ABG pCO2 POC ABG pO2 ABG pO2 73.3 L ABG O2 Saturation 93.9 L ABG Hemoglobin 12.4 L Oxyhemoglobin 92.1 L Sodium Potassium Chloride Carbon Dioxide BUN Creatinine Glucose POC Glucose 68 L Lactic Acid Calcium Phosphorus Magnesium Total Bilirubin AST NT-Pro-B Natriuret Pep Total Protein Albumin Lipase 07/27/19 07/27/19 07/27/19 05:00 06:10 09:49 WBC RBC Hgb Hct MCV RDW Plt Count Lymph % (Auto) [place] % (Auto) Lymph # [place] # Seg Neutrophils % Lymphocytes % (Manual) Monocytes % (Manual) Nucleated RBC % Seg Neutrophils # Seg Neutrophils # Man Lymphocytes # (Manual) Monocytes # (Manual) D-Dimer POC ABG pH ABG pH POC ABG pCO2 POC ABG pO2 ABG pO2 ABG O2 Saturation ABG Hemoglobin 12.6 L Oxyhemoglobin 94.2 L Sodium 149 H Potassium Chloride 114.6 H Carbon Dioxide BUN Creatinine Glucose POC Glucose 110 H Lactic Acid Calcium 7.9 L Phosphorus Magnesium Total Bilirubin AST NT-Pro-B Natriuret Pep Total Protein Albumin Lipase Chest x-ray: report reviewed, image reviewed
--- NOTE | 2019-07-27 19:17 | Progress Note ---
Assessment and Plan 1. Acute kidney injury: Vasomotor [place] in the setting of volume depletion. Patient was dialyzed once on due to hyperkalemia. Renal function is better. Continue IV fluids. Monitor renal function. Avoid nephrotoxic agents. Meds dosage based on GFR. 2. FEN: Hyperkalemia, improved after hemodialysis. Metabolic acidosis, improved. Hypernatremia, 1/2 NS. Monitor lytes. 3. Hypotension: Currently not on pressors. Continue IV fluids. 4. Ischemic Colon: S/p Ex Lap and partial Colon Resection. Followed by Gen. Surgery. 5. Respiratory failure: On vent. 6. Sepsis: Resolved. 7. Sinus tachycardia: Improved. Examination: General appearance: well-developed, well-nourished, appears stated age, obese, intubated, on vent HEENT: ATNC, [place] Neck: neck supple, trachea midline Respiratory: Clear to Ascultation Heart: regular, S1S2, no murmur Gastrointestinal: obese, dressing / wound vac noted Integumentary: no rash, warm and dry : Mcpherson catheter Neurologic: opens eyes Musculoskeletal: no deformity Ext: No edema Hemodialysis access: R IJ temp catheter Subjective Date of service: 07/27/19 Principal diagnosis: Respiratory Failure Interval history: Patient was seen and examined at the bedside. Objective - Vital Signs Vital signs: Vital Signs - 12hr 07/27/19 07/27/19 07/27/19 07:20 07:30 07:35 Temperature Pulse Rate 100 H 103 H 99 H Pulse Rate [ From Monitor] Respiratory 15 18 Rate Blood Pressure 136/66 136/66 158/80 O2 Sat by Pulse 97 99 97 Oximetry 07/27/19 07/27/19 07/27/19 07:40 07:50 08:00 Temperature 98.7 F Pulse Rate 98 H 100 H 79 Pulse Rate [ 107 H From Monitor] Respiratory 17 18 19 Rate Blood Pressure 158/80 151/84 140/80 O2 Sat by Pulse 97 97 95 Oximetry 07/27/19 07/27/19 07/27/19 08:10 08:20 08:30 Temperature Pulse Rate 91 H 94 H Pulse Rate [ From Monitor] Respiratory 18 18 Rate Blood Pressure 140/80 152/69 130/60 O2 Sat by Pulse 98 99 100 Oximetry 07/27/19 07/27/19 07/27/19 08:40 08:50 09:00 Temperature Pulse Rate 87 77 Pulse Rate [ From Monitor] Respiratory 18 22 Rate Blood Pressure 130/60 126/52 123/58 O2 Sat by Pulse 96 96 98 Oximetry 07/27/19 07/27/19 07/27/19 09:10 09:20 09:30 Temperature Pulse Rate 75 71 75 Pulse Rate [ From Monitor] Respiratory 20 18 19 Rate Blood Pressure 123/58 115/64 121/55 O2 Sat by Pulse 98 97 98 Oximetry 07/27/19 07/27/19 07/27/19 09:40 09:50 10:00 Temperature Pulse Rate 75 67 67 Pulse Rate [ From Monitor] Respiratory 18 19 19 Rate Blood Pressure 121/55 118/53 114/49 O2 Sat by Pulse 98 98 100 Oximetry 07/27/19 07/27/19 07/27/19 10:10 10:20 10:30 Temperature Pulse Rate 66 63 56 L Pulse Rate [ From Monitor] Respiratory 19 19 20 Rate Blood Pressure 114/49 118/54 116/50 O2 Sat by Pulse 99 99 100 Oximetry 07/27/19 07/27/19 07/27/19 10:40 10:50 11:00 Temperature Pulse Rate 58 L 59 L 57 L Pulse Rate [ From Monitor] Respiratory 20 20 19 Rate Blood Pressure 116/50 120/57 120/57 O2 Sat by Pulse 100 99 99 Oximetry 07/27/19 07/27/19 07/27/19 11:11 11:21 11:30 Temperature Pulse Rate 60 66 60 Pulse Rate [ From Monitor] Respiratory 20 14 11 L Rate Blood Pressure 120/57 114/52 123/53 O2 Sat by Pulse 100 99 100 Oximetry 07/27/19 07/27/19 07/27/19 11:41 11:48 11:51 Temperature 97.6 F Pulse Rate 61 59 L Pulse Rate [ From Monitor] Respiratory 20 18 Rate Blood Pressure 123/53 124/53 O2 Sat by Pulse 100 100 Oximetry 07/27/19 07/27/19 07/27/19 12:00 12:05 12:11 Temperature 97.6 F Pulse Rate 56 L 59 L 59 L Pulse Rate [ 59 L From Monitor] Respiratory 20 19 Rate Blood Pressure 124/58 124/58 124/58 O2 Sat by Pulse 99 98 99 Oximetry 07/27/19 07/27/19 07/27/19 12:21 12:30 12:41 Temperature Pulse Rate 57 L 58 L 61 Pulse Rate [ From Monitor] Respiratory 18 15 15 Rate Blood Pressure 119/53 122/54 122/54 O2 Sat by Pulse 99 100 100 Oximetry 07/27/19 07/27/19 07/27/19 12:51 13:00 13:11 Temperature Pulse Rate 64 60 59 L Pulse Rate [ From Monitor] Respiratory 18 11 L 13 Rate Blood Pressure 125/54 121/49 121/49 O2 Sat by Pulse 100 99 100 Oximetry 07/27/19 07/27/19 07/27/19 13:21 13:30 13:41 Temperature Pulse Rate 57 L 55 L 60 Pulse Rate [ From Monitor] Respiratory 18 17 20 Rate Blood Pressure 120/48 121/53 121/53 O2 Sat by Pulse 100 99 99 Oximetry 07/27/19 07/27/19 07/27/19 13:51 14:00 14:30 Temperature Pulse Rate 61 58 L 59 L Pulse Rate [ From Monitor] Respiratory 18 13 15 Rate Blood Pressure 120/53 121/57 124/51 O2 Sat by Pulse 99 99 100 Oximetry 07/27/19 07/27/19 07/27/19 15:00 15:30 16:00 Temperature 97.9 F Pulse Rate 58 L 61 54 L Pulse Rate [ 58 L From Monitor] Respiratory 18 18 18 Rate Blood Pressure 105/36 106/43 106/38 O2 Sat by Pulse 99 99 98 Oximetry 07/27/19 07/27/19 07/27/19 16:30 17:00 17:30 Temperature Pulse Rate 57 L 56 L 54 L Pulse Rate [ From Monitor] Respiratory 18 18 18 Rate Blood Pressure 102/42 106/38 108/42 O2 Sat by Pulse 99 99 96 Oximetry 07/27/19 07/27/19 18:00 18:30 Temperature Pulse Rate 58 L 58 L Pulse Rate [ From Monitor] Respiratory 18 18 Rate Blood Pressure 112/50 115/50 O2 Sat by Pulse 96 98 Oximetry - Lab 07/27/19 05:00 07/27/19 05:00 Most recent lab results ABG pH 7.358 pH Units (7.350-7.450) 07/27/19 06:10 ABG pCO2 44.0 mm Hg 07/27/19 06:10 ABG pO2 84.6 mm Hg (80.0-90.0) 07/27/19 06:10 ABG HCO3 24.2 mmol/L (20.0-26.0) 07/27/19 06:10 ABG O2 Saturation 96.3 % (95.0-99.0) 07/27/19 06:10 Calcium 7.9 mg/dL (8.4-10.2) L 07/27/19 05:00 Phosphorus 4.10 mg/dL (2.5-4.5) D 07/27/19 05:00 Magnesium 2.10 mg/dL (1.7-2.3) 07/27/19 05:00 Medications & Allergies - Medications Allergies/Adverse Reactions: Allergies No Known Allergies Allergy (Verified 10/20/15 03:43) Home Medications: Home Medications Medication Instructions Recorded Confirmed Last Taken Type Benztropine [Cogentin] 0.5 mg PO QHS 05/17/19 07/24/19 Unknown History Divalproex ER [Depakote ER] 500 mg PO BID 05/17/19 07/24/19 Unknown History clonazePAM [KlonoPIN] 2 mg PO BID 05/17/19 07/24/19 Unknown History traZODone [Desyrel] 100 mg PO HS 06/05/19 07/24/19 Unknown History Divalproex ER [Depakote ER] 500 mg PO BID tablet 06/06/19 07/24/19 Unknown Rx Lactulose 10 gm PO DAILY PRN #150 ml 07/21/19 Unknown Rx Active Medications: Generic Name Dose Route Start Last Admin Trade Name Freq PRN Reason Stop Dose Admin Acetaminophen 650 mg 07/23/19 02:48 Tylenol RI Q4H PRN Fever >100.5 Albumin Human 25 gm 07/23/19 13:11 Alburx 25% (Albumin) IV DIOR PRN Hypotension Bisacodyl 10 mg 07/21/19 22:25 Dulcolax PO QDAY PRN Constipation Enoxaparin Sodium 40 mg 07/27/19 10:00 07/27/19 09:48 Lovenox SUB-Q 40 mg DAILY STEPHEN Administration Famotidine 20 mg 07/24/19 10:00 07/27/19 09:43 Pepcid IV 20 mg BID STEPHEN Administration Phenylephrine HCl 100 mg/ 100 mls @ 3 mls/hr 07/23/19 02:45 07/24/19 21:31 Sodium Chloride IV 0 mcg/min TITR STEPHEN 0 mls/hr Titration Protocol 50 MCG/MIN Vasopressin 20 unit/ Sodium 101 mls @ 9.09 mls/hr 07/23/19 10:00 07/25/19 09:44 Chloride IV Infused TITR STEPHEN Titration Protocol 0.03 UNITS/MIN Norepinephrine 8 mg/ Sodium 250 mls @ 3.75 mls/hr 07/23/19 12:00 07/23/19 13:08 Chloride IV 0 mcg/min TITR STEPHEN 0 mls/hr Titration Protocol 2 MCG/MIN Fentanyl Citrate 2,000 mcg in 100 mls @ 5.557 mls/hr 07/23/19 12:00 07/27/19 13:20 Fentanyl Drip Premix IV 4 mcg/kg/hr TITR STEPHEN 22.226 mls/hr Administration Protocol 1 MCG/KG/HR Cefepime HCl 2 gm in 100 mls @ 200 mls/hr 07/23/19 16:00 07/27/19 16:54 Maxipime/Ns 2 Gm/100 Ml IV 200 mls/hr Q12H STEPHEN Administration Protocol Metronidazole 500 mg in 100 mls @ 100 mls/hr 07/23/19 16:00 07/27/19 13:21 Flagyl 500 Mg/100 Ml IV 100 mls/hr Q8HR STEPHEN Administration Protocol Valproate Sodium 500 mg/ 105 mls @ 100 mls/hr 07/24/19 10:00 07/27/19 09:42 Sodium Chloride IV 100 mls/hr Q12HR STEPHEN Administration Sodium Chloride 1,000 mls @ 150 mls/hr 07/26/19 08:00 07/27/19 17:44 Nacl 0.45% 1000 Ml IV 07/27/19 23:00 150 mls/hr DIRECT STEPHEN Administration Fluconazole 200 mls @ 100 mls/hr 07/26/19 15:00 07/27/19 09:46 Diflucan IV 100 mls/hr Q24HR STEPHEN Administration Protocol Propofol 1,000 mg in 100 mls @ 4.353 mls/hr 07/26/19 23:00 07/27/19 17:46 Diprivan 10 Mg/Ml IV 8 mcg/kg/min TITR STEPHEN 6.965 mls/hr Titration Protocol 5 MCG/KG/MIN Amino Acids/Electrolytes/Dextrose 2,016 mls @ 84 mls/hr 07/27/19 20:00 Tpn Adult IV 07/28/19 19:59 DAILY@1999 [facility] Protocol Ondansetron HCl 4 mg 07/21/19 22:25 07/22/19 01:07 Zofran IV 4 mg Q8H PRN Administration Nausea And Vomiting
[2019-07-27] MEDS ORDERED: TOTAL PARENTERAL NUTRITION 2,016 ML IV SCH (20:00)
[2019-07-28] MEDS: fentaNYL DRIP Premix 2,000 MCG/100 ML BAG IV SCH ×3 (02:28→23:45)
[2019-07-28] MEDS: CEFEPIME/NS 2 GM/100 ML 2 GM/100 ML BAG IV SCH ×2 (04:21→17:19)
[2019-07-28 05:18] LABS: Hematocrit 34.4 % (35.5-45.6); Hemoglobin 11.5 gm/dl (11.8-15.2); Mean Corpuscular HGB Conc 33 % (32-34); Mean Corpuscular Volume 94 fl (84-94); Platelet Count 142 K/mm3 (140-440); Red Blood Count 3.66 M/mm3 (3.65-5.03); Red Cell Distribution Width 15.9 % (13.2-15.2)
[2019-07-28 05:31] LABS: Alanine Aminotransferase 19 units/L (7-56); BUN/Creatinine Ratio 26; Blood Urea Nitrogen 18 mg/dL (9-20); Hemolysis Index 1
[2019-07-28] MEDS: metroNIDAZOLE/NS 500 MG/100 ML 500 MG/100 ML BAG IV SCH ×3 (06:30→22:04)
[2019-07-28] MEDS: FAMOTIDINE 20 MG/2 ML INJ IV SCH ×2 (09:00→22:04)
[2019-07-28] MEDS: VALPROATE SODIUM 500 MG in SODIUM CHLORIDE 0.9% 100 ML IV SCH ×2 (09:01→22:04)
[2019-07-28] MEDS: ENOXAPARIN 40 MG/0.4 ML INJ SUB-Q SCH ×2 (09:08→09:33)
--- NOTE | 2019-07-28 09:27 | Progress Note ---
Assessment and Plan pt on vent awaiting repeat abd wash, ef 25-30%, pt npo on tpn, cont current treatment - Patient Problems (1) Abdominal pain Current Visit: Yes Status: Acute Qualifiers: Abdominal location: generalized Qualified Code(s): R10.84 - Generalized abdominal pain (2) Acute respiratory failure Current Visit: Yes Status: Acute Qualifiers: Respiratory failure complication: hypoxia Qualified Code(s): J96.01 - Acute respiratory failure with hypoxia (3) Cardiomyopathy Current Visit: Yes Status: Acute Qualifiers: Cardiomyopathy type: unspecified Qualified Code(s): I42.9 - Cardiomyopathy, unspecified (4) Elevated d-dimer Current Visit: Yes Status: Acute (5) Lactic acidosis Current Visit: Yes Status: Acute Subjective Date of service: 07/28/19 Principal diagnosis: Respiratory Failure Interval history: pt on vent sedated Objective Vital Signs Temp Pulse Pulse Resp BP Pulse Ox 07/28/19 09:00 77 14 149/59 96 07/28/19 08:30 51 L 16 130/49 98 07/28/19 08:01 75 15 100/55 07/28/19 08:00 98.7 F 07/28/19 07:50 51 L 133/52 99 07/28/19 07:30 54 L 19 139/51 98 07/28/19 07:00 73 15 142/58 97 07/28/19 06:30 57 L 18 139/53 100 07/28/19 06:00 49 L 18 132/49 99 07/28/19 05:30 49 L 19 131/51 98 07/28/19 05:00 54 L 18 130/48 98 07/28/19 04:31 57 L 18 117/32 97 07/28/19 04:09 65 15 98 07/28/19 04:00 98.7 F 55 L 18 131/55 99 07/28/19 03:30 50 L 18 123/48 100 07/28/19 03:00 51 L 20 120/51 100 07/28/19 02:30 49 L 18 125/51 98 07/28/19 02:00 51 L 19 123/49 97 07/28/19 01:30 52 L 18 121/50 99 07/28/19 01:00 53 L 18 119/45 97 07/28/19 00:39 50 L 120/47 98 07/28/19 00:30 53 L 18 120/47 99 07/28/19 00:08 98.8 F 07/28/19 00:00 57 L 56 L 18 128/53 98 07/27/19 23:33 52 L 18 122/52 98 07/27/19 23:30 50 L 18 122/52 98 07/27/19 23:00 58 L 18 120/47 96 07/27/19 22:30 53 L 18 125/53 98 07/27/19 22:00 59 L 18 129/50 94 07/27/19 21:30 69 18 125/50 94 07/27/19 21:00 102 H 18 127/56 96 07/27/19 20:52 52 L 120/51 99 07/27/19 20:30 53 L 18 119/47 97 07/27/19 20:00 98.8 F 51 L 19 119/52 100 07/27/19 19:56 54 L 07/27/19 19:50 54 L 16 100 07/27/19 19:30 55 L 18 116/49 97 07/27/19 19:00 53 L 21 125/46 99 07/27/19 18:30 58 L 18 115/50 98 07/27/19 18:00 58 L 18 112/50 96 07/27/19 17:30 54 L 18 108/42 96 07/27/19 17:00 56 L 18 106/38 99 07/27/19 16:30 57 L 18 102/42 99 07/27/19 16:00 97.9 F 54 L 58 L 18 106/38 98 07/27/19 15:30 61 18 106/43 99 07/27/19 15:00 58 L 18 105/36 99 07/27/19 14:30 59 L 15 124/51 100 07/27/19 14:00 58 L 13 121/57 99 07/27/19 13:51 61 18 120/53 99 07/27/19 13:41 60 20 121/53 99 07/27/19 13:30 55 L 17 121/53 99 07/27/19 13:21 57 L 18 120/48 100 07/27/19 13:11 59 L 13 121/49 100 07/27/19 13:00 60 11 L 121/49 99 07/27/19 12:51 64 18 125/54 100 07/27/19 12:41 61 15 122/54 100 07/27/19 12:30 58 L 15 122/54 100 07/27/19 12:21 57 L 18 119/53 99 07/27/19 12:11 59 L 19 124/58 99 07/27/19 12:05 59 L 124/58 98 07/27/19 12:00 97.6 F 56 L 59 L 20 124/58 99 07/27/19 11:51 59 L 18 124/53 100 07/27/19 11:48 97.6 F 07/27/19 11:41 61 20 123/53 100 07/27/19 11:30 60 11 L 123/53 100 07/27/19 11:21 66 14 114/52 99 07/27/19 11:11 60 20 120/57 100 07/27/19 11:00 57 L 19 120/57 99 07/27/19 10:50 59 L 20 120/57 99 07/27/19 10:40 58 L 20 116/50 100 07/27/19 10:30 56 L 20 116/50 100 07/27/19 10:20 63 19 118/54 99 07/27/19 10:10 66 19 114/49 99 07/27/19 10:00 67 19 114/49 100 07/27/19 09:50 67 19 118/53 98 07/27/19 09:40 75 18 121/55 98 07/27/19 09:30 75 19 121/55 98 - Physical Examination General: Other (intubated) Neck: Positive: neck supple, trachea midline Cardiac: Positive: Reg Rate and Rhythm Lungs: Positive: clear to auscultation Neuro: Positive: Other (intubated) Abdomen: Positive: Other Skin: Positive: Other (abdominal surgical site). Negative: Rash Extremities: Absent: edema - Labs and Meds Cardiac Enzymes 07/28/19 Range/Units 04:12 AST 20 (5-40) units/L CBC 07/28/19 Range/Units 04:12 WBC 15.3 H (4.5-11.0) K/mm3 RBC 3.66 (3.65-5.03) M/mm3 Hgb 11.5 L (11.8-15.2) gm/dl Hct 34.4 L (35.5-45.6) % Plt Count 142 (140-440) K/mm3 Comprehensive Metabolic Panel 07/28/19 Range/Units 04:12 Sodium 149 H (137-145) mmol/L Potassium 4.0 (3.6-5.0) mmol/L Chloride 113.3 H (98-107) mmol/L Carbon Dioxide 24 (22-30) mmol/L BUN 18 (9-20) mg/dL Creatinine 0.7 L (0.8-1.5) mg/dL Glucose 87 (75-100) mg/dL Calcium 8.0 L (8.4-10.2) mg/dL AST 20 (5-40) units/L ALT 19 (7-56) units/L Alkaline Phosphatase 43 (35-129) units/L Total Protein 4.2 L D (6.3-8.2) g/dL Albumin 2.0 L (3.9-5) g/dL - Imaging and Cardiology EKG: report reviewed, image reviewed Stress echo: report reviewed, image reviewed Echo: report reviewed ( EF 25-30%, LV mildly dilated, impaired relaxation, trivial pericardial effusion, mod pleural effusion. ) - Telemetry EKG Rhythm: Sinus Rhythm - EKG Sinus rhythms and dysrhythmias: sinus tachycardia
[2019-07-28] MEDS: FLUCONAZOLE 400 MG 200 ML IV SCH (10:03)
[2019-07-28] MEDS: PROPOFOL 1,000 MG/100 ML BOTTLE IV SCH (10:03)
[2019-07-28] MEDS ORDERED: GLYCOPYRROLATE 0.4 MG/2 ML INJ ONE (11:30)
[2019-07-28] MEDS ORDERED: fentaNYL 100 MCG/2 ML INJ ONE (11:34)
[2019-07-28] MEDS ORDERED: PROPOFOL 200 MG/20 ML VIAL IV ONE (11:35)
[2019-07-28] MEDS ORDERED: ROCURONIUM 50 MG/5 ML INJ IV ONE (11:41)
--- NOTE | 2019-07-28 11:44 | Progress Note ---
Assessment and Plan 1. Acute kidney injury: Vasomotor [place] in the setting of volume depletion. Patient was dialyzed once on due to hyperkalemia. Renal function is better. Continue IV fluids. Monitor renal function. Avoid nephrotoxic agents. Meds dosage based on GFR. 2. FEN: Hyperkalemia, improved after hemodialysis. Metabolic acidosis, improved. Hypernatremia, monitor. Patient is on PPN. Monitor lytes. 3. Hypotension: Currently not on pressors. Continue IV fluids. 4. Ischemic Colon: S/p Ex Lap and partial Colon Resection. Followed by Gen. Surgery. 5. Respiratory failure: On vent. 6. Sepsis: Resolved. 7. Sinus tachycardia: Improved. D/w his mother at the bedside. Examination: General appearance: well-developed, well-nourished, appears stated age, obese, intubated, on vent HEENT: ATNC, [place] Neck: neck supple, trachea midline Respiratory: Clear to Ascultation Heart: regular, S1S2, no murmur Gastrointestinal: obese, dressing / wound vac noted Integumentary: no rash, warm and dry : Mcpherson catheter Neurologic: opens eyes Musculoskeletal: no deformity Ext: No edema Hemodialysis access: R IJ temp catheter Subjective Date of service: 07/28/19 Principal diagnosis: Respiratory Failure Interval history: Patient was seen and examined at the bedside. Mother at the bedside. Objective - Vital Signs Vital signs: Vital Signs - 12hr 07/28/19 07/28/19 07/28/19 00:00 00:08 00:30 Temperature 98.8 F Pulse Rate 57 L 53 L Pulse Rate [ 56 L From Monitor] Respiratory 18 18 Rate Blood Pressure 128/53 120/47 O2 Sat by Pulse 98 99 Oximetry 07/28/19 07/28/19 07/28/19 00:39 01:00 01:30 Temperature Pulse Rate 50 L 53 L 52 L Pulse Rate [ From Monitor] Respiratory 18 18 Rate Blood Pressure 120/47 119/45 121/50 O2 Sat by Pulse 98 97 99 Oximetry 07/28/19 07/28/19 07/28/19 02:00 02:30 03:00 Temperature Pulse Rate 51 L 49 L 51 L Pulse Rate [ From Monitor] Respiratory 19 18 20 Rate Blood Pressure 123/49 125/51 120/51 O2 Sat by Pulse 97 98 100 Oximetry 07/28/19 07/28/19 07/28/19 03:30 04:00 04:09 Temperature 98.7 F Pulse Rate 50 L 55 L Pulse Rate [ 65 From Monitor] Respiratory 18 18 15 Rate Blood Pressure 123/48 131/55 O2 Sat by Pulse 100 99 98 Oximetry 07/28/19 07/28/19 07/28/19 04:31 05:00 05:30 Temperature Pulse Rate 57 L 54 L 49 L Pulse Rate [ From Monitor] Respiratory 18 18 19 Rate Blood Pressure 117/32 130/48 131/51 O2 Sat by Pulse 97 98 98 Oximetry 07/28/19 07/28/19 07/28/19 06:00 06:30 07:00 Temperature Pulse Rate 49 L 57 L 73 Pulse Rate [ From Monitor] Respiratory 18 18 15 Rate Blood Pressure 132/49 139/53 142/58 O2 Sat by Pulse 99 100 97 Oximetry 07/28/19 07/28/19 07/28/19 07:30 07:50 08:00 Temperature 98.7 F Pulse Rate 54 L 51 L 51 L Pulse Rate [ 75 From Monitor] Respiratory 19 15 Rate Blood Pressure 139/51 133/52 O2 Sat by Pulse 98 99 98 Oximetry 07/28/19 07/28/19 07/28/19 08:01 08:30 09:00 Temperature Pulse Rate 75 51 L 77 Pulse Rate [ From Monitor] Respiratory 15 16 14 Rate Blood Pressure 100/55 130/49 149/59 O2 Sat by Pulse 98 96 Oximetry 07/28/19 07/28/19 09:30 10:01 Temperature Pulse Rate 69 49 L Pulse Rate [ From Monitor] Respiratory 18 12 Rate Blood Pressure 148/61 128/54 O2 Sat by Pulse 100 98 Oximetry - Lab 07/28/19 04:12 07/28/19 04:12 Most recent lab results ABG pH 7.358 pH Units (7.350-7.450) 07/27/19 06:10 ABG pCO2 44.0 mm Hg 07/27/19 06:10 ABG pO2 84.6 mm Hg (80.0-90.0) 07/27/19 06:10 ABG HCO3 24.2 mmol/L (20.0-26.0) 07/27/19 06:10 ABG O2 Saturation 96.3 % (95.0-99.0) 07/27/19 06:10 Calcium 8.0 mg/dL (8.4-10.2) L 07/28/19 04:12 Phosphorus 2.70 mg/dL (2.5-4.5) D 07/28/19 04:12 Magnesium 2.00 mg/dL (1.7-2.3) 07/28/19 04:12 Medications & Allergies - Medications Allergies/Adverse Reactions: Allergies No Known Allergies Allergy (Verified 10/20/15 03:43) Home Medications: Home Medications Medication Instructions Recorded Confirmed Last Taken Type Benztropine [Cogentin] 0.5 mg PO QHS 05/17/19 07/24/19 Unknown History Divalproex ER [Depakote ER] 500 mg PO BID 05/17/19 07/24/19 Unknown History clonazePAM [KlonoPIN] 2 mg PO BID 05/17/19 07/24/19 Unknown History traZODone [Desyrel] 100 mg PO HS 06/05/19 07/24/19 Unknown History Divalproex ER [Depakote ER] 500 mg PO BID tablet 06/06/19 07/24/19 Unknown Rx Lactulose 10 gm PO DAILY PRN #150 ml 07/21/19 Unknown Rx Active Medications: Generic Name Dose Route Start Last Admin Trade Name Freq PRN Reason Stop Dose Admin Acetaminophen 650 mg 07/23/19 02:48 Tylenol HI Q4H PRN Fever >100.5 Albumin Human 25 gm 07/23/19 13:11 Alburx 25% (Albumin) IV DIOR PRN Hypotension Bisacodyl 10 mg 07/21/19 22:25 Dulcolax PO QDAY PRN Constipation Enoxaparin Sodium 40 mg 07/27/19 10:00 07/28/19 09:33 Lovenox SUB-Q 40 mg DAILY STEPHEN Administration Famotidine 20 mg 07/24/19 10:00 07/28/19 09:00 Pepcid IV 20 mg BID STEPHEN Administration Phenylephrine HCl 100 mg/ 100 mls @ 3 mls/hr 07/23/19 02:45 07/24/19 21:31 Sodium Chloride IV 0 mcg/min TITR STEPHEN 0 mls/hr Titration Protocol 50 MCG/MIN Vasopressin 20 unit/ Sodium 101 mls @ 9.09 mls/hr 07/23/19 10:00 07/25/19 09:44 Chloride IV Infused TITR STEPHEN Titration Protocol 0.03 UNITS/MIN Norepinephrine 8 mg/ Sodium 250 mls @ 3.75 mls/hr 07/23/19 12:00 07/23/19 13:08 Chloride IV 0 mcg/min TITR STEPHEN 0 mls/hr Titration Protocol 2 MCG/MIN Fentanyl Citrate 2,000 mcg in 100 mls @ 5.557 mls/hr 07/23/19 12:00 07/28/19 02:28 Fentanyl Drip Premix IV 2 mcg/kg/hr TITR STEPHEN 11.113 mls/hr Administration Protocol 1 MCG/KG/HR Cefepime HCl 2 gm in 100 mls @ 200 mls/hr 07/23/19 16:00 07/28/19 04:21 Maxipime/Ns 2 Gm/100 Ml IV 200 mls/hr Q12H STEPHEN Administration Protocol Metronidazole 500 mg in 100 mls @ 100 mls/hr 07/23/19 16:00 07/28/19 06:30 Flagyl 500 Mg/100 Ml IV 100 mls/hr Q8HR STEPHEN Administration Protocol Valproate Sodium 500 mg/ 105 mls @ 100 mls/hr 07/24/19 10:00 07/28/19 09:01 Sodium Chloride IV 100 mls/hr Q12HR STEPHEN Administration Fluconazole 200 mls @ 100 mls/hr 07/26/19 15:00 07/28/19 10:03 Diflucan IV 100 mls/hr Q24HR STEPHEN Administration Protocol Propofol 1,000 mg in 100 mls @ 4.353 mls/hr 07/26/19 23:00 07/28/19 10:03 Diprivan 10 Mg/Ml IV 8 mcg/kg/min TITR STEPHEN 6.965 mls/hr Administration Protocol 5 MCG/KG/MIN Amino Acids/Electrolytes/Dextrose 2,016 mls @ 84 mls/hr 07/27/19 20:00 07/27/19 20:08 Tpn Adult IV 07/28/19 19:59 84 mls/hr DAILY@2000 [facility] Administration Protocol Ondansetron HCl 4 mg 07/21/19 22:25 07/22/19 01:07 Zofran IV 4 mg Q8H PRN Administration Nausea And Vomiting
--- NOTE | 2019-07-28 12:49 | Progress Note ---
Assessment and Plan - Patient Problems (1) Abdominal pain Current Visit: Yes Status: Acute Qualifiers: Abdominal location: generalized Qualified Code(s): R10.84 - Generalized abdominal pain (2) Acute renal failure Current Visit: Yes Status: Acute (3) Acute respiratory failure Current Visit: Yes Status: Acute Qualifiers: Respiratory failure complication: hypoxia Qualified Code(s): J96.01 - Acute respiratory failure with hypoxia (4) Cardiomyopathy Current Visit: Yes Status: Acute Qualifiers: Cardiomyopathy type: unspecified Qualified Code(s): I42.9 - Cardiomyopathy, unspecified (5) Lactic acidosis Current Visit: Yes Status: Acute (6) Leukocytosis Current Visit: Yes Status: Acute (7) Sinus tachycardia Current Visit: Yes Status: Resolved (8) Enterocolitis Current Visit: No Status: Acute Subjective Principal diagnosis: Respiratory Failure Interval history: on vent mother at bedside For re exploration today Objective Vital Signs - 12hr 07/28/19 07/28/19 07/28/19 01:00 01:30 02:00 Temperature Pulse Rate 53 L 52 L 51 L Pulse Rate [ From Monitor] Respiratory 18 18 19 Rate Blood Pressure 119/45 121/50 123/49 O2 Sat by Pulse 97 99 97 Oximetry 07/28/19 07/28/19 07/28/19 02:30 03:00 03:30 Temperature Pulse Rate 49 L 51 L 50 L Pulse Rate [ From Monitor] Respiratory 18 20 18 Rate Blood Pressure 125/51 120/51 123/48 O2 Sat by Pulse 98 100 100 Oximetry 07/28/19 07/28/19 07/28/19 04:00 04:09 04:31 Temperature 98.7 F Pulse Rate 55 L 57 L Pulse Rate [ 65 From Monitor] Respiratory 18 15 18 Rate Blood Pressure 131/55 117/32 O2 Sat by Pulse 99 98 97 Oximetry 07/28/19 07/28/19 07/28/19 05:00 05:30 06:00 Temperature Pulse Rate 54 L 49 L 49 L Pulse Rate [ From Monitor] Respiratory 18 19 18 Rate Blood Pressure 130/48 131/51 132/49 O2 Sat by Pulse 98 98 99 Oximetry 07/28/19 07/28/19 07/28/19 06:30 07:00 07:30 Temperature Pulse Rate 57 L 73 54 L Pulse Rate [ From Monitor] Respiratory 18 15 19 Rate Blood Pressure 139/53 142/58 139/51 O2 Sat by Pulse 100 97 98 Oximetry 07/28/19 07/28/19 07/28/19 07:50 08:00 08:01 Temperature 98.7 F Pulse Rate 51 L 51 L 75 Pulse Rate [ 75 From Monitor] Respiratory 15 15 Rate Blood Pressure 133/52 100/55 O2 Sat by Pulse 99 98 Oximetry 07/28/19 07/28/19 07/28/19 08:30 09:00 09:30 Temperature Pulse Rate 51 L 77 69 Pulse Rate [ From Monitor] Respiratory 16 14 18 Rate Blood Pressure 130/49 149/59 148/61 O2 Sat by Pulse 98 96 100 Oximetry 07/28/19 07/28/19 07/28/19 10:01 10:31 11:01 Temperature Pulse Rate 49 L 47 L 53 L Pulse Rate [ From Monitor] Respiratory 12 11 L 18 Rate Blood Pressure 128/54 137/58 134/49 O2 Sat by Pulse 98 99 99 Oximetry 07/28/19 11:31 Temperature Pulse Rate 47 L Pulse Rate [ From Monitor] Respiratory 20 Rate Blood Pressure 132/56 O2 Sat by Pulse 100 Oximetry Constitutional: no acute distress, other (obese, sedated, critically ill on ventilator) Eyes: non-icteric ENT: oropharynx moist Neck: supple Effort: normal Ascultation: Bilateral: diminished breath sounds (due to obesity) Cardiovascular: other (sinus tachy, no mrg, regular rhythm) Gastrointestinal: normoactive bowel sounds, soft, other (morbidly obese abd) Integumentary: normal Extremities: no cyanosis, no edema, pink and warm Neurologic: normal mental status, non-focal exam, pupils equal and round, other (on vent) Psychiatric: mood appropriate, affect normal CBC and BMP: 07/28/19 04:12 07/28/19 04:12 ABG, PT/INR, D-dimer: ABG POC ABG pH 7.377 (7.35-7.45) 07/28/19 04:47 ABG pH 7.358 pH Units (7.350-7.450) 07/27/19 06:10 POC ABG pCO2 43.6 (35-45) 07/28/19 04:47 ABG pCO2 44.0 mm Hg 07/27/19 06:10 POC ABG pO2 86 (80-105) 07/28/19 04:47 ABG pO2 84.6 mm Hg (80.0-90.0) 07/27/19 06:10 POC ABG HCO3 25.6 (22-26 mml/L) 07/28/19 04:47 POC ABG Total CO2 27 (23-27mmol/L) 07/28/19 04:47 POC ABG O2 Sat 96 07/28/19 04:47 ABG O2 Saturation 96.3 % (95.0-99.0) 07/27/19 06:10 PT/INR, D-dimer D-Dimer 886.89 ng/mlDDU (0-234) H 07/22/19 21:45 Abnormal lab findings: Abnormal Labs 07/21/19 07/21/19 07/22/19 19:02 19:02 10:50 WBC 12.1 H 13.7 H RBC 5.56 H Hgb 17.1 H Hct 52.9 H D MCV 95 H 95 H RDW Plt Count 130 L 137 L Lymph % (Auto) 7.2 L [place] % (Auto) 9.6 H Lymph # 0.9 L [place] # 1.2 H Seg Neutrophils % 82.8 H Lymphocytes % (Manual) Monocytes % (Manual) Nucleated RBC % Seg Neutrophils # 10.0 H Seg Neutrophils # Man Lymphocytes # (Manual) Monocytes # (Manual) D-Dimer POC ABG pH ABG pH POC ABG pCO2 POC ABG pO2 ABG pO2 ABG O2 Saturation ABG Hemoglobin Oxyhemoglobin Sodium 136 L Potassium Chloride 95.9 L Carbon Dioxide BUN Creatinine Glucose 163 H POC Glucose Lactic Acid Calcium Phosphorus Magnesium Total Bilirubin AST NT-Pro-B Natriuret Pep Total Protein Albumin Lipase 10 L 07/22/19 07/22/19 07/22/19 10:50 15:33 15:33 WBC 13.1 H RBC 5.10 H Hgb 15.9 H Hct 49.0 H MCV 96 H RDW Plt Count 127 L Lymph % (Auto) [place] % (Auto) Lymph # [place] # Seg Neutrophils % Lymphocytes % (Manual) Monocytes % (Manual) Nucleated RBC % Seg Neutrophils # Seg Neutrophils # Man Lymphocytes # (Manual) Monocytes # (Manual) D-Dimer POC ABG pH ABG pH POC ABG pCO2 POC ABG pO2 ABG pO2 ABG O2 Saturation ABG Hemoglobin Oxyhemoglobin Sodium 136 L Potassium 5.3 H D 6.0 H Chloride 96.7 L Carbon Dioxide 17 L BUN 22 H 29 H Creatinine 2.0 H D 2.2 H Glucose 129 H 121 H POC Glucose Lactic Acid Calcium 8.2 L Phosphorus 4.70 H Magnesium 3.10 H Total Bilirubin AST NT-Pro-B Natriuret Pep Total Protein Albumin Lipase 07/22/19 07/22/19 07/22/19 18:19 18:42 21:45 WBC RBC Hgb Hct MCV RDW Plt Count Lymph % (Auto) [place] % (Auto) Lymph # [place] # Seg Neutrophils % Lymphocytes % (Manual) Monocytes % (Manual) Nucleated RBC % Seg Neutrophils # Seg Neutrophils # Man Lymphocytes # (Manual) Monocytes # (Manual) D-Dimer 886.89 H POC ABG pH 7.197 L ABG pH POC ABG pCO2 45.2 H POC ABG pO2 ABG pO2 ABG O2 Saturation ABG Hemoglobin Oxyhemoglobin Sodium Potassium Chloride Carbon Dioxide BUN Creatinine Glucose POC Glucose 107 H Lactic Acid Calcium Phosphorus Magnesium Total Bilirubin AST NT-Pro-B Natriuret Pep Total Protein Albumin Lipase 07/22/19 07/22/19 07/22/19 21:45 21:45 21:45 WBC RBC Hgb Hct MCV RDW Plt Count Lymph % (Auto) [place] % (Auto) Lymph # [place] # Seg Neutrophils % Lymphocytes % (Manual) Monocytes % (Manual) Nucleated RBC % Seg Neutrophils # Seg Neutrophils # Man Lymphocytes # (Manual) Monocytes # (Manual) D-Dimer POC ABG pH ABG pH POC ABG pCO2 POC ABG pO2 ABG pO2 ABG O2 Saturation ABG Hemoglobin Oxyhemoglobin Sodium 136 L Potassium 5.6 H Chloride Carbon Dioxide 20 L BUN 38 H Creatinine 2.6 H Glucose 63 L POC Glucose Lactic Acid 3.10 H* Calcium 8.2 L Phosphorus Magnesium Total Bilirubin AST NT-Pro-B Natriuret Pep 5407 H Total Protein Albumin Lipase 07/23/19 07/23/19 07/23/19 02:11 02:50 02:50 WBC 15.0 H RBC Hgb Hct MCV 95 H RDW Plt Count 118 L Lymph % (Auto) [place] % (Auto) Lymph # [place] # Seg Neutrophils % Lymphocytes % (Manual) 9.0 L Monocytes % (Manual) 17.0 H Nucleated RBC % Seg Neutrophils # Seg Neutrophils # Man Lymphocytes # (Manual) Monocytes # (Manual) 2.6 H D-Dimer POC ABG pH ABG pH POC ABG pCO2 POC ABG pO2 ABG pO2 ABG O2 Saturation ABG Hemoglobin Oxyhemoglobin Sodium Potassium Chloride Carbon Dioxide BUN Creatinine Glucose POC Glucose 69 L Lactic Acid 3.30 H* Calcium Phosphorus Magnesium Total Bilirubin AST NT-Pro-B Natriuret Pep Total Protein Albumin Lipase 07/23/19 07/23/19 07/23/19 02:50 03:09 04:30 WBC RBC Hgb Hct MCV RDW Plt Count Lymph % (Auto) [place] % (Auto) Lymph # [place] # Seg Neutrophils % Lymphocytes % (Manual) Monocytes % (Manual) Nucleated RBC % Seg Neutrophils # Seg Neutrophils # Man Lymphocytes # (Manual) Monocytes # (Manual) D-Dimer POC ABG pH 7.296 L ABG pH POC ABG pCO2 POC ABG pO2 66 L ABG pO2 ABG O2 Saturation ABG Hemoglobin Oxyhemoglobin Sodium 134 L Potassium 7.5 H* D Chloride Carbon Dioxide 21 L BUN 47 H Creatinine 2.7 H Glucose POC Glucose Lactic Acid 3.50 H* Calcium 7.6 L Phosphorus Magnesium 2.90 H Total Bilirubin AST 60 H NT-Pro-B Natriuret Pep Total Protein 5.5 L D Albumin 2.5 L Lipase 07/23/19 07/23/19 07/23/19 07:30 09:03 09:03 WBC RBC Hgb Hct MCV RDW Plt Count Lymph % (Auto) [place] % (Auto) Lymph # [place] # Seg Neutrophils % Lymphocytes % (Manual) Monocytes % (Manual) Nucleated RBC % Seg Neutrophils # Seg Neutrophils # Man Lymphocytes # (Manual) Monocytes # (Manual) D-Dimer POC ABG pH ABG pH POC ABG pCO2 POC ABG pO2 ABG pO2 ABG O2 Saturation ABG Hemoglobin Oxyhemoglobin Sodium 136 L Potassium 6.6 H* 7.1 H* Chloride Carbon Dioxide 20 L BUN 50 H 49 H Creatinine 2.6 H 2.4 H Glucose 67 L POC Glucose Lactic Acid 4.10 H* Calcium 7.6 L 7.7 L Phosphorus Magnesium Total Bilirubin AST NT-Pro-B Natriuret Pep Total Protein Albumin Lipase 07/23/19 07/23/19 07/23/19 10:52 13:13 14:48 WBC RBC Hgb Hct MCV RDW Plt Count Lymph % (Auto) [place] % (Auto) Lymph # [place] # Seg Neutrophils % Lymphocytes % (Manual) Monocytes % (Manual) Nucleated RBC % Seg Neutrophils # Seg Neutrophils # Man Lymphocytes # (Manual) Monocytes # (Manual) D-Dimer POC ABG pH 7.280 L ABG pH POC ABG pCO2 48.7 H POC ABG pO2 ABG pO2 ABG O2 Saturation ABG Hemoglobin Oxyhemoglobin Sodium Potassium Chloride Carbon Dioxide BUN Creatinine Glucose POC Glucose 123 H Lactic Acid 4.10 H* Calcium Phosphorus Magnesium Total Bilirubin AST NT-Pro-B Natriuret Pep Total Protein Albumin Lipase 07/23/19 07/23/19 07/23/19 15:56 17:35 Unknown WBC RBC Hgb Hct MCV RDW Plt Count Lymph % (Auto) [place] % (Auto) Lymph # [place] # Seg Neutrophils % Lymphocytes % (Manual) Monocytes % (Manual) Nucleated RBC % Seg Neutrophils # Seg Neutrophils # Man Lymphocytes # (Manual) Monocytes # (Manual) D-Dimer POC ABG pH ABG pH POC ABG pCO2 POC ABG pO2 ABG pO2 ABG O2 Saturation ABG Hemoglobin Oxyhemoglobin Sodium Potassium Chloride Carbon Dioxide BUN Creatinine Glucose POC Glucose Lactic Acid 3.00 H* 4.10 H* 4.90 H* Calcium Phosphorus Magnesium Total Bilirubin AST NT-Pro-B Natriuret Pep Total Protein Albumin Lipase 07/23/19 07/24/19 07/24/19 Unknown 00:05 00:40 WBC RBC Hgb Hct MCV RDW Plt Count Lymph % (Auto) [place] % (Auto) Lymph # [place] # Seg Neutrophils % Lymphocytes % (Manual) Monocytes % (Manual) Nucleated RBC % Seg Neutrophils # Seg Neutrophils # Man Lymphocytes # (Manual) Monocytes # (Manual) D-Dimer POC ABG pH ABG pH POC ABG pCO2 POC ABG pO2 ABG pO2 151.3 H ABG O2 Saturation ABG Hemoglobin Oxyhemoglobin Sodium Potassium 5.6 H D Chloride Carbon Dioxide BUN 29 H Creatinine Glucose 128 H POC Glucose 118 H Lactic Acid Calcium 7.4 L Phosphorus Magnesium Total Bilirubin AST NT-Pro-B Natriuret Pep Total Protein Albumin Lipase 07/24/19 07/24/19 07/24/19 04:00 05:37 05:37 WBC RBC Hgb Hct MCV RDW Plt Count 89 L Lymph % (Auto) [place] % (Auto) Lymph # [place] # Seg Neutrophils % Lymphocytes % (Manual) 5.0 L Monocytes % (Manual) Nucleated RBC % Seg Neutrophils # Seg Neutrophils # Man Lymphocytes # (Manual) 0.5 L Monocytes # (Manual) D-Dimer POC ABG pH ABG pH POC ABG pCO2 POC ABG pO2 ABG pO2 ABG O2 Saturation ABG Hemoglobin Oxyhemoglobin Sodium Potassium Chloride Carbon Dioxide BUN 29 H Creatinine Glucose 120 H POC Glucose 123 H Lactic Acid Calcium 7.4 L Phosphorus 2.30 L D Magnesium Total Bilirubin 1.40 H AST 107 H NT-Pro-B Natriuret Pep Total Protein 5.3 L Albumin 2.5 L Lipase 07/24/19 07/24/19 07/24/19 05:37 10:18 18:44 WBC RBC Hgb Hct MCV RDW Plt Count Lymph % (Auto) [place] % (Auto) Lymph # [place] # Seg Neutrophils % Lymphocytes % (Manual) Monocytes % (Manual) Nucleated RBC % Seg Neutrophils # Seg Neutrophils # Man Lymphocytes # (Manual) Monocytes # (Manual) D-Dimer POC ABG pH 7.464 H ABG pH POC ABG pCO2 POC ABG pO2 125 H ABG pO2 ABG O2 Saturation ABG Hemoglobin Oxyhemoglobin Sodium Potassium Chloride Carbon Dioxide BUN Creatinine Glucose POC Glucose 130 H Lactic Acid 3.90 H* Calcium Phosphorus Magnesium Total Bilirubin AST NT-Pro-B Natriuret Pep Total Protein Albumin Lipase 07/24/19 07/25/19 07/25/19 18:52 04:45 04:45 WBC RBC Hgb Hct MCV RDW Plt Count 91 L Lymph % (Auto) [place] % (Auto) Lymph # [place] # Seg Neutrophils % Lymphocytes % (Manual) Monocytes % (Manual) Nucleated RBC % Seg Neutrophils # Seg Neutrophils # Man Lymphocytes # (Manual) Monocytes # (Manual) D-Dimer POC ABG pH ABG pH POC ABG pCO2 POC ABG pO2 ABG pO2 ABG O2 Saturation ABG Hemoglobin Oxyhemoglobin Sodium Potassium Chloride Carbon Dioxide BUN 24 H Creatinine Glucose POC Glucose 107 H Lactic Acid Calcium 7.9 L Phosphorus 2.20 L Magnesium Total Bilirubin AST NT-Pro-B Natriuret Pep Total Protein Albumin Lipase 07/25/19 07/26/19 07/26/19 05:32 02:20 05:00 WBC RBC Hgb Hct MCV RDW Plt Count Lymph % (Auto) [place] % (Auto) Lymph # [place] # Seg Neutrophils % Lymphocytes % (Manual) Monocytes % (Manual) Nucleated RBC % Seg Neutrophils # Seg Neutrophils # Man Lymphocytes # (Manual) Monocytes # (Manual) D-Dimer POC ABG pH ABG pH POC ABG pCO2 POC ABG pO2 ABG pO2 70.6 L ABG O2 Saturation 94.7 L ABG Hemoglobin 12.0 L Oxyhemoglobin 92.8 L Sodium 148 H Potassium Chloride 112.1 H Carbon Dioxide BUN Creatinine 0.6 L Glucose 71 L POC Glucose 62 L Lactic Acid Calcium 8.3 L Phosphorus Magnesium Total Bilirubin AST NT-Pro-B Natriuret Pep Total Protein Albumin Lipase 07/26/19 07/26/19 07/27/19 05:45 05:47 05:00 WBC 13.1 H RBC Hgb Hct MCV RDW 15.8 H Plt Count 113 L Lymph % (Auto) [place] % (Auto) Lymph # [place] # Seg Neutrophils % Lymphocytes % (Manual) Monocytes % (Manual) 16.0 H Nucleated RBC % 2.0 H Seg Neutrophils # Seg Neutrophils # Man 8.1 H Lymphocytes # (Manual) Monocytes # (Manual) 2.1 H D-Dimer POC ABG pH ABG pH 7.309 L POC ABG pCO2 POC ABG pO2 ABG pO2 73.3 L ABG O2 Saturation 93.9 L ABG Hemoglobin 12.4 L Oxyhemoglobin 92.1 L Sodium Potassium Chloride Carbon Dioxide BUN Creatinine Glucose POC Glucose 68 L Lactic Acid Calcium Phosphorus Magnesium Total Bilirubin AST NT-Pro-B Natriuret Pep Total Protein Albumin Lipase 07/27/19 07/27/19 07/27/19 05:00 06:10 09:49 WBC RBC Hgb Hct MCV RDW Plt Count Lymph % (Auto) [place] % (Auto) Lymph # [place] # Seg Neutrophils % Lymphocytes % (Manual) Monocytes % (Manual) Nucleated RBC % Seg Neutrophils # Seg Neutrophils # Man Lymphocytes # (Manual) Monocytes # (Manual) D-Dimer POC ABG pH ABG pH POC ABG pCO2 POC ABG pO2 ABG pO2 ABG O2 Saturation ABG Hemoglobin 12.6 L Oxyhemoglobin 94.2 L Sodium 149 H Potassium Chloride 114.6 H Carbon Dioxide BUN Creatinine Glucose POC Glucose 110 H Lactic Acid Calcium 7.9 L Phosphorus Magnesium Total Bilirubin AST NT-Pro-B Natriuret Pep Total Protein Albumin Lipase 07/28/19 07/28/19 04:12 04:12 WBC 15.3 H RBC Hgb 11.5 L Hct 34.4 L MCV RDW 15.9 H Plt Count Lymph % (Auto) [place] % (Auto) Lymph # [place] # Seg Neutrophils % Lymphocytes % (Manual) Monocytes % (Manual) Nucleated RBC % Seg Neutrophils # Seg Neutrophils # Man Lymphocytes # (Manual) Monocytes # (Manual) D-Dimer POC ABG pH ABG pH POC ABG pCO2 POC ABG pO2 ABG pO2 ABG O2 Saturation ABG Hemoglobin Oxyhemoglobin Sodium 149 H Potassium Chloride 113.3 H Carbon Dioxide BUN Creatinine 0.7 L Glucose POC Glucose Lactic Acid Calcium 8.0 L Phosphorus Magnesium Total Bilirubin AST NT-Pro-B Natriuret Pep Total Protein 4.2 L D Albumin 2.0 L Lipase
[2019-07-28] MEDS ORDERED: SODIUM CHLORIDE 0.9% IRR 1,000 ML BOTTLE IR ONE (13:15)
--- NOTE | 2019-07-28 14:17 | Post Operative Note ---
Date of procedure: 07/28/19 Pre-op diagnosis: open abdomen Post-op diagnosis: same Findings: Intact and patent ileorectal anastamosis with moderate inflammation. Serous fluid in abdomen. Mildly dilated small bowel proximal to the anastamosis. Procedure: Exploratory laparotomy, peritoneal lavage, closure of abdomen, placement of URMILA drain Anesthesia: CARLOS Surgeon: ANTIONE QUINTANILLA In Flight Technician: KARLY LOYA Estimated blood loss: minimal Pathology: none Condition: stable Disposition: ICU
--- NOTE | 2019-07-28 14:18 | Anesthesia Day of Surgery ---
Anesthesia Day of Surgery - Day of Surgery Patient Examined: Yes Patient H&P Reviewed: Yes Patient is NPO: Yes
--- NOTE | 2019-07-28 14:20 | Event Note ---
Date: 07/28/19 Patient s/p closure of open abdomen. POD 0 Plan: 1. continue NPO, IVF 2. TPN intiated 3. DVT ppx 4. NGT to LIWS, may be flushed with air/water for patency. Do not use for medications 5. Vent management per ICU team 6. prn pain control 7. abdominal binder at all times 8. Mcpherson for strict I/Os 9. await bowel function. Pt will likely have prolonged ileus. Thank you, please call with questions.
--- NOTE | 2019-07-28 14:42 | Post Anesthesia Evaluation ---
- Post Anesthesia Evaluation Patient Participated: No (sedated) Airway Patent: Yes Stable Respiratory Function: Yes Nausea/Vomiting: No Temp > 96.8F: Yes Pain Manageable: Yes Adequeate Hydration: Yes Anesthesia Complications: No Patient on Ventilator: Yes (returned to preop vent settings by RT) Other Comments: Transported to ICU with monitors, manual ventilation via AMBU, VS stable throughout. Handoff given to FACILITY PLANNER and RT at bedside.
--- NOTE | 2019-07-28 14:47 | Progress Note ---
Assessment and Plan Assessment and plan: Patient is 19 yo with Downs syndrome from [facility] home. he initially presented with abdominal pain, nausea and vomiting. he was seen and examined in ED. CT Abd showed severe constipation. he was given Fleets enema, admitted. His BMP was WNL. By next day Cr was 2.2 and he had hyperkalemia of 5.3. Repeat hrs later showed worse Cr 2.2 and Potassium went up to 6.0. and he had developed shortness of breath, desaturation so was transferred to ICU. Acute resp failure now intubated, Vascular Tech following VAP/Aspiration precautions Ischemic Bowel, s/p ex lap and resection Surgeon following POD #5- returning to the OR today s/p abdominal colectomy with ileocolostomy (07/26) - POD#2. S/P Open abdominal wound closure 07/28- POD#0 Per surgery based on "Based on NGT appearance, patient has a post-op ileus. Hold any tube feeds for now. Would ideally like to see resumption of bowel function prior to starting tube feeds." Septic shock: intra-abdominal source. s/p ex-lap on 07/23/2019, Per surgery findings of multiple distinct areas of necrosis on transverse colon. Rest of intestines were normal. IV Cefepime, Flagyl, Fluconazole Discontinue femoral Line [place] due to ATN Nephrology following lactic acidosis Secondary to ischemic Bowel Hyperkalemia Gave calcium Carbonate Insulin/Dextrose discussed with Dr. West severe constipation resolved, now has diarrhea due to laxatives Severe diarrhea due to laxatives after presenting with constipation Thrombocytopenia Continue to monitor Sinus tachycardia due to dehydration Downs syndrome supportive care full code status Prognosis guarded The high probability of a clinically significant, sudden or life threatening deterioration of the [renal, GI,] system(s) required my full and direct attention, intervention and personal management. The aggregate critical care time was [35] minutes. This time is in addition to time spent performing re ported procedures but includes the following: [x] Data Review and interpretation [x] Patient assessment and monitoring of vital signs [x] Documentation [x] Medication orders and management History Interval history: Patient seen and examined, remains intubated, S/P OR eval yesterday. Patient underwent surgical wash out and closure of the open abdomen today without any complications Hospitalist Physical - Physical exam Narrative exam: Gen: Ill looking, obese, intubated HEENT: Normocephalic, atraumatic, ETT in place Neck: supple, no JVD Heart: S1 and S2 reg, no murmurs, rubs or gallop Lungs: bilateral crackles, no wheeze Abd: soft, non tender, Surgical dressing in place non distended, Hypoactive BS, Ext: No edema, no clubbing, no cyanosis Neuro: sedated, follows some command, no focal neurological signs, - Constitutional Vitals: Temp Pulse Resp BP Pulse Ox 98.9 F 54 L 18 141/58 100 07/28/19 12:00 07/28/19 12:21 07/28/19 12:21 07/28/19 12:21 07/28/19 12:21 General appearance: Present: other (intubated) Results - Labs CBC & Chem 7: 07/28/19 04:12 07/28/19 04:12 Labs: Laboratory Last Values WBC 15.3 K/mm3 (4.5-11.0) H 07/28/19 04:12 RBC 3.66 M/mm3 (3.65-5.03) 07/28/19 04:12 Hgb 11.5 gm/dl (11.8-15.2) L 07/28/19 04:12 Hct 34.4 % (35.5-45.6) L 07/28/19 04:12 MCV 94 fl (84-94) 07/28/19 04:12 MCH 31 pg (28-32) 07/28/19 04:12 MCHC 33 % (32-34) 07/28/19 04:12 RDW 15.9 % (13.2-15.2) H 07/28/19 04:12 Plt Count 142 K/mm3 (140-440) 07/28/19 04:12 Lymph % (Auto) 7.2 % (13.4-35.0) L 07/21/19 19:02 [place] % (Auto) Paper Winder 07/27/19 05:00 Eos % (Auto) 0.1 % (0.0-4.3) 07/21/19 19:02 Baso % (Auto) 0.3 % (0.0-1.8) 07/21/19 19:02 Lymph # 0.9 K/mm3 (1.2-5.4) L 07/21/19 19:02 [place] # 1.2 K/mm3 (0.0-0.8) H 07/21/19 19:02 Eos # 0.0 K/mm3 (0.0-0.4) 07/21/19 19:02 Baso # 0.0 K/mm3 (0.0-0.1) 07/21/19 19:02 Add Manual Diff Complete 07/27/19 05:00 Total Counted 100 07/27/19 05:00 Seg Neutrophils % 82.8 % (40.0-70.0) H 07/21/19 19:02 Seg Neuts % (Manual) 62.0 % (40.0-70.0) 07/27/19 05:00 Band Neutrophils % 3.0 % 07/27/19 05:00 Lymphocytes % (Manual) 17.0 % (13.4-35.0) 07/27/19 05:00 Reactive Lymphs % (Man) 0 % 07/27/19 05:00 Monocytes % (Manual) 16.0 % (0.0-7.3) H 07/27/19 05:00 Eosinophils % (Manual) 0 % (0.0-4.3) 07/27/19 05:00 Basophils % (Manual) 0 % (0.0-1.8) 07/27/19 05:00 Metamyelocytes % 2.0 % 07/27/19 05:00 Myelocytes % 0 % 07/27/19 05:00 Promyelocytes % 0 % 07/27/19 05:00 Blast Cells % 0 % 07/27/19 05:00 Nucleated RBC % 2.0 % (0.0-0.9) H 07/27/19 05:00 Seg Neutrophils # 10.0 K/mm3 (1.8-7.7) H 07/21/19 19:02 Seg Neutrophils # Man 8.1 K/mm3 (1.8-7.7) H 07/27/19 05:00 Band Neutrophils # 0.4 K/mm3 07/27/19 05:00 Lymphocytes # (Manual) 2.2 K/mm3 (1.2-5.4) 07/27/19 05:00 Abs React Lymphs (Man) 0.0 K/mm3 07/27/19 05:00 Monocytes # (Manual) 2.1 K/mm3 (0.0-0.8) H 07/27/19 05:00 Eosinophils # (Manual) 0.0 K/mm3 (0.0-0.4) 07/27/19 05:00 Basophils # (Manual) 0.0 K/mm3 (0.0-0.1) 07/27/19 05:00 Metamyelocytes # 0.3 K/mm3 07/27/19 05:00 Myelocytes # 0.0 K/mm3 07/27/19 05:00 Promyelocytes # 0.0 K/mm3 07/27/19 05:00 Blast Cells # 0.0 K/mm3 07/27/19 05:00 WBC Morphology Not Reportable 07/27/19 05:00 Hypersegmented Neuts Not Reportable 07/27/19 05:00 Hyposegmented Neuts Not Reportable 07/27/19 05:00 Hypogranular Neuts Not Reportable 07/27/19 05:00 Smudge Cells Not Reportable 07/27/19 05:00 Toxic Granulation Not Reportable 07/27/19 05:00 Toxic Vacuolation Not Reportable 07/27/19 05:00 Dohle Bodies Not Reportable 07/27/19 05:00 Pelger-Huet Anomaly Not Reportable 07/27/19 05:00 Alea Rods Not Reportable 07/27/19 05:00 Platelet Estimate Consistent w auto 07/27/19 05:00 Clumped Platelets Not Reportable 07/27/19 05:00 Plt Clumps, EDTA Not Reportable 07/27/19 05:00 Large Platelets Not Reportable 07/27/19 05:00 Giant Platelets Not Reportable 07/27/19 05:00 Platelet Satelliting Not Reportable 07/27/19 05:00 Plt Morphology Comment Not Reportable 07/27/19 05:00 RBC Morphology Not Reportable 07/27/19 05:00 Dimorphic RBCs Not Reportable 07/27/19 05:00 Polychromasia Rare 07/27/19 05:00 Hypochromasia Not Reportable 07/27/19 05:00 Poikilocytosis Not Reportable 07/27/19 05:00 Anisocytosis Few 07/27/19 05:00 Microcytosis Not Reportable 07/27/19 05:00 Macrocytosis Not Reportable 07/27/19 05:00 Spherocytes Not Reportable 07/27/19 05:00 Pappenheimer Bodies Not Reportable 07/27/19 05:00 Sickle Cells Not Reportable 07/27/19 05:00 Target Cells Not Reportable 07/27/19 05:00 Tear Drop Cells Not Reportable 07/27/19 05:00 Ovalocytes Few 07/27/19 05:00 Helmet Cells Not Reportable 07/27/19 05:00 [employer] Bodies Not Reportable 07/27/19 05:00 [place] Rings Not Reportable 07/27/19 05:00 [place] Cells Not Reportable 07/27/19 05:00 Bite Cells Not Reportable 07/27/19 05:00 Crenated Cell Not Reportable 07/27/19 05:00 Elliptocytes Not Reportable 07/27/19 05:00 Acanthocytes (Spur) Not Reportable 07/27/19 05:00 Rouleaux Not Reportable 07/27/19 05:00 Hemoglobin C Crystals Not Reportable 07/27/19 05:00 Schistocytes Not Reportable 07/27/19 05:00 Malaria parasites Not Reportable 07/27/19 05:00 Emanuel Bodies Not Reportable 07/27/19 05:00 Hem Pathologist Commnt No 07/27/19 05:00 D-Dimer 886.89 ng/mlDDU (0-234) H 07/22/19 21:45 Heparin Anti-Xa, Unfract Negative (Negative) 07/24/19 09:18 POC ABG pH 7.377 (7.35-7.45) 07/28/19 04:47 ABG pH 7.358 pH Units (7.350-7.450) 07/27/19 06:10 POC ABG pCO2 43.6 (35-45) 07/28/19 04:47 ABG pCO2 44.0 mm Hg 07/27/19 06:10 POC ABG pO2 86 (80-105) 07/28/19 04:47 ABG pO2 84.6 mm Hg (80.0-90.0) 07/27/19 06:10 POC ABG HCO3 25.6 (22-26 mml/L) 07/28/19 04:47 ABG HCO3 24.2 mmol/L (20.0-26.0) 07/27/19 06:10 POC ABG Total CO2 27 (23-27mmol/L) 07/28/19 04:47 POC ABG O2 Sat 96 07/28/19 04:47 ABG O2 Saturation 96.3 % (95.0-99.0) 07/27/19 06:10 ABG O2 Content 16.7 (0.0-44) 07/27/19 06:10 POC ABG Base Excess 0 ((-2) - (+3)mmol/L) 07/28/19 04:47 ABG Base Excess -1.4 mmol/L (-2.0-3.0) 07/27/19 06:10 ABG Hemoglobin 12.6 gm/dl (14.0-18.0) L 07/27/19 06:10 ABG Carboxyhemoglobin 1.7 % (0.0-5.0) 07/27/19 06:10 ABG Methemoglobin 0.6 % (0.0-1.5) 07/27/19 06:10 Oxyhemoglobin 94.2 % (95.0-99.0) L 07/27/19 06:10 FiO2 30 % 07/28/19 04:47 Sodium 149 mmol/L (137-145) H 07/28/19 04:12 Potassium 4.0 mmol/L (3.6-5.0) 07/28/19 04:12 Chloride 113.3 mmol/L (98-107) H 07/28/19 04:12 Carbon Dioxide 24 mmol/L (22-30) 07/28/19 04:12 Anion Gap 16 mmol/L 07/28/19 04:12 BUN 18 mg/dL (9-20) 07/28/19 04:12 Creatinine 0.7 mg/dL (0.8-1.5) L 07/28/19 04:12 Estimated GFR > 60 ml/min 07/28/19 04:12 BUN/Creatinine Ratio 26 % 07/28/19 04:12 Glucose 87 mg/dL (75-100) 07/28/19 04:12 POC Glucose 89 (70-105) 07/28/19 11:48 Lactic Acid 1.10 mmol/L (0.7-2.0) 07/25/19 09:16 Calcium 8.0 mg/dL (8.4-10.2) L 07/28/19 04:12 Phosphorus 2.70 mg/dL (2.5-4.5) D 07/28/19 04:12 Magnesium 2.00 mg/dL (1.7-2.3) 07/28/19 04:12 Total Bilirubin 0.80 mg/dL (0.1-1.2) 07/28/19 04:12 Direct Bilirubin 0.2 mg/dL (0-0.2) 07/21/19 19:02 Indirect Bilirubin 0.4 mg/dL 07/21/19 19:02 AST 20 units/L (5-40) 07/28/19 04:12 ALT 19 units/L (7-56) 07/28/19 04:12 Alkaline Phosphatase 43 units/L (35-129) 07/28/19 04:12 Ammonia 39.0 umol/L (25-60) 07/23/19 02:50 Troponin T < 0.010 ng/mL (0.00-0.029) 07/22/19 15:33 NT-Pro-B Natriuret Pep 5407 pg/mL (0-450) H 07/22/19 21:45 Total Protein 4.2 g/dL (6.3-8.2) L D 07/28/19 04:12 Albumin 2.0 g/dL (3.9-5) L 07/28/19 04:12 Albumin/Globulin Ratio 0.9 % 07/28/19 04:12 Lipase 10 units/L (13-60) L 07/21/19 19:02 TSH 0.888 mlU/mL (0.270-4.200) 07/23/19 13:06 Free T4 1.04 ng/dL (0.76-1.46) 07/23/19 13:06 Urine Color Emy (Yellow) 07/21/19 21:36 Urine Turbidity Clear (Clear) 07/21/19 21:36 Urine pH 5.0 (5.0-7.0) 07/21/19 21:36 Ur Specific [place] 1.024 (1.003-1.030) 07/21/19 21:36 Urine Protein <15 mg/dl mg/dL (Negative) 07/21/19 21:36 Urine Glucose (UA) Neg mg/dL (Negative) 07/21/19 21:36 Urine Ketones Neg mg/dL (Negative) 07/21/19 21:36 Urine Blood Neg (Negative) 07/21/19 21:36 Urine Nitrite Neg (Negative) 07/21/19 21:36 Urine Bilirubin Sm (Negative) 07/21/19 21:36 Urine Ictotest Negative (Negative) 07/21/19 21:36 Urine Urobilinogen 4.0 mg/dL (<2.0) 07/21/19 21:36 Ur Leukocyte Esterase Neg (Negative) 07/21/19 21:36 Urine WBC (Auto) 1.0 /HPF (0.0-6.0) 07/21/19 21:36 Urine RBC (Auto) 1.0 /HPF (0.0-6.0) 07/21/19 21:36 U Epithel Cells (Auto) < 1.0 /HPF (0-13.0) 07/21/19 21:36 Urine Mucus Few /HPF 07/21/19 21:36 Heparin-induced Plt Ab Negative (Negative) 07/24/19 09:18 UF Heparin High Dose 0 % Release 07/24/19 09:18 GIULIANA UFH Low Dose 0.1 1 % Release 07/24/19 09:18 GIULIANA UFH Low Dose 0.5 0 % Release 07/24/19 09:18 Hepatitis A IgM Ab Non-reactive (NonReactive) 07/23/19 13:06 Hep Bs Antigen Non-reactive (Negative) 07/23/19 13:06 Hep B Core IgM Ab Non-reactive (NonReactive) 07/23/19 13:06 Hepatitis C Antibody Non-reactive (NonReactive) 07/23/19 13:06 Blood Type A POSITIVE 07/28/19 04:12 Antibody Screen Negative 07/28/19 04:12 Active Medications - Current Medications Current Medications: Generic Name Dose Route Start Last Admin Trade Name Freq PRN Reason Stop Dose Admin Acetaminophen 650 mg 07/23/19 02:48 Tylenol [place] Q4H PRN Fever >100.5 Albumin Human 25 gm 07/23/19 13:11 Alburx 25% (Albumin) IV DIOR PRN Hypotension Bisacodyl 10 mg 07/21/19 22:25 Dulcolax PO QDAY PRN Constipation Enoxaparin Sodium 40 mg 07/27/19 10:00 07/28/19 09:33 Lovenox SUB-Q 40 mg DAILY STEPHEN Administration Famotidine 20 mg 07/24/19 10:00 07/28/19 09:00 Pepcid IV 20 mg BID STEPHEN Administration Phenylephrine HCl 100 mg/ 100 mls @ 3 mls/hr 07/23/19 02:45 07/24/19 21:31 Sodium Chloride IV 0 mcg/min TITR STEPHEN 0 mls/hr Titration Protocol 50 MCG/MIN Vasopressin 20 unit/ Sodium 101 mls @ 9.09 mls/hr 07/23/19 10:00 07/25/19 09:44 Chloride IV Infused TITR STEPHEN Titration Protocol 0.03 UNITS/MIN Norepinephrine 8 mg/ Sodium 250 mls @ 3.75 mls/hr 07/23/19 12:00 07/23/19 13:08 Chloride IV 0 mcg/min TITR STEPHEN 0 mls/hr Titration Protocol 2 MCG/MIN Fentanyl Citrate 2,000 mcg in 100 mls @ 5.557 mls/hr 07/23/19 12:00 07/28/19 02:28 Fentanyl Drip Premix IV 2 mcg/kg/hr TITR STEPHEN 11.113 mls/hr Administration Protocol 1 MCG/KG/HR Cefepime HCl 2 gm in 100 mls @ 200 mls/hr 07/23/19 16:00 07/28/19 04:21 Maxipime/Ns 2 Gm/100 Ml IV 200 mls/hr Q12H STEPHEN Administration Protocol Metronidazole 500 mg in 100 mls @ 100 mls/hr 07/23/19 16:00 07/28/19 06:30 Flagyl 500 Mg/100 Ml IV 100 mls/hr Q8HR STEPHEN Administration Protocol Valproate Sodium 500 mg/ 105 mls @ 100 mls/hr 07/24/19 10:00 07/28/19 09:01 Sodium Chloride IV 100 mls/hr Q12HR STEPHEN Administration Fluconazole 200 mls @ 100 mls/hr 07/26/19 15:00 07/28/19 10:03 Diflucan IV 100 mls/hr Q24HR STEPHEN Administration Protocol Propofol 1,000 mg in 100 mls @ 4.353 mls/hr 07/26/19 23:00 07/28/19 11:47 Diprivan 10 Mg/Ml IV 6 mcg/kg/min TITR STEPHEN 5.224 mls/hr Titration Protocol 5 MCG/KG/MIN Amino Acids/Electrolytes/Dextrose 2,016 mls @ 84 mls/hr 07/27/19 20:00 07/27/19 20:08 Tpn Adult IV 07/28/19 19:59 84 mls/hr DAILY@[email or web address] STEPHEN Administration Protocol Amino Acids/Electrolytes/Dextrose 2,016 mls @ 84 mls/hr 07/28/19 20:00 Tpn Adult IV 07/29/19 19:59 DAILY@1999 [facility] Protocol Ondansetron HCl 4 mg 07/21/19 22:25 07/22/19 01:07 Zofran IV 4 mg Q8H PRN Administration Nausea And Vomiting Nutrition/Malnutrition Assess - Dietary Evaluation Nutrition/Malnutrition Findings: Nutrition Notes Start: 07/23/19 1 0:09 Freq: Status: Active Protocol: Document 07/27/19 13:13 RS (Rec: 07/27/19 13:39 RS [id number]) Co-Sign 07/27/19 13:13 LP Nutrition Notes Need for Assessment generated from: MD Order Initial or Follow up Assessment Current Diagnosis Acute Kidney Injury Other Pertinent Diagnosis Necrosis of transverse colon, down syndrome Current Diet NPO Labs/Tests reviewed Pertinent Medications reviewed Height 5 ft 7 in Weight 145.1 kg [place] Body Weight (kg) 67.27 BMI 50.1 Subjective/Other Information Consult for TPN. Central line will be removed over weekend. PPN will be administered for time being. Burn Absent Trauma Absent GI Symptoms Nausea,Vomiting,Constipation Minimum of two criteria No physical signs of malnutrition #1 Nutrition Diagnosis Inadequate oral intake Diagnosis Progress(for reassessment Continues documentation) Is patient on ventilator? Yes Is Patient Ambulatory and/or Out of Bed No REE-([facility]-confined to bed) 2897.820 Kcal/Kg value to use for calculation 14 Approximate Energy Requirements Using 2031 kcal/Kg Calculation Used for Recommendations Kcal/kg Additional Notes Pro needs 2g/kg IBW: 135g/day Fluid needs 1ml/kcal Nutrition Intervention Change Diet Order: PPN Nutrition Support: PPN at 84 mL/hr Dextrose: 5% AA: 5% Na: 75 mEq K: 20 mEq Ca: 5 mEq Phos: 0 mmol Ma mEq Chloride/Acetate ratio: 25%/75 % Multivitamin: 10mL Thiamin 100mg Kcal 740 Protein (gm) 100 Carbohydrates (gm) 100 Fat (gm) 0 Fluid (mL) 2,016 Fiber (gm) 0 % RDI: 36% Goal #1 Meet kcal/PRO as best as possible with PPN Anticipated Discharge Needs: Unable to identify at this time Follow-Up By: 07/28/19 Additional Comments Labs in AM BMP, Mg, Phos
--- NOTE | 2019-07-28 16:15 | Operative Report ---
PREOPERATIVE DIAGNOSIS: Open abdomen. POSTOPERATIVE DIAGNOSIS: Open abdomen. FINDINGS: Intact and patent ileorectal anastomosis with moderate inflammation. Serous fluid in the abdomen. Mildly dilated small bowel proximal to the anastomosis. PROCEDURE: Exploratory laparotomy, peritoneal lavage, closure of abdomen, and placement of URMILA drain. ANESTHESIA: General endotracheal anesthesia. SURGEON: Madhuri Trevizo DO LUMBER STACKER: Erika Goodwin MD ESTIMATED BLOOD LOSS: Minimal. PATHOLOGY: None. DISPOSITION: The patient is stable, back to ICU. HISTORY OF PRESENT ILLNESS AND INDICATION: The patient is a 19-year-old male, who was taken to the operating room initially for exploratory laparotomy and partial colon resection due to necrosis of multiple areas of the transverse colon on 07/23/2019. He was taken back to the operating room on 07/26/[address] Tilley for reexploration of the abdomen and abdominal colectomy with ileosigmoid anastomosis. An ABThera VAC was put in place so that the patient may undergo a second look to check the integrity of the anastomosis and to again wash out the abdomen. The patient was taken back to the operating room today for this reason. Consent had been obtained from his mother since the patient is on the ventilator. PROCEDURE IN DETAIL: The patient was identified in his ICU bed and brought down to the operating room and placed on the operating table in supine position. After anesthesia was induced, the outer dressing for the ABThera VAC was removed and the abdomen was prepped with Betadine. The abdomen was then draped in the usual sterile fashion and timeout performed. There were three interrupted fascial sutures in place, which were cut and removed. The intra-abdominal blue sponge was then removed. The abdomen was inspected and there was serous fluid in the abdomen. There were some flimsy adhesions from the small bowel to the small bowel as well as to the area of the anastomosis, which were very carefully dissected using finger fracture. The anastomosis was visualized in the left lower quadrant and appeared to be intact and patent. It was carefully inspected and there was no evidence of anastomotic leak. There was evidence of inflammation on the sigmoid colon side of the anastomosis with some stool present in the sigmoid colon. There was minimal dilatation of the small bowel proximal to the anastomosis. Abdomen was then irrigated with copious amount of warm saline and the irrigant did return clear. Hemostasis was carefully ensured. Because the anastomosis was viable and patent,it was decided to perform closure of the abdomen. A 19-Bengali Dieudonne drain was placed into the abdomen via stab incision in the left lower abdomen and the drain was positioned along the left paracolic gutter and over the anastomosis. This was sutured into place using a 3-0 nylon drain stitch. The fascia was then closed using looped #1 PDS in the usual fashion. Several [id number] #1 Vicryl sutures were also placed to reinforce the fascia. The subcutaneous tissue was then irrigated and checked for hemostasis, which was carefully ensured. The skin was then loosely approximated using chaparro. The abdomen was cleansed and an island dressing was applied to the midline incision. A fluff gauze was applied around the URMILA drain and secured with Tegaderm. Intra-abdominal pressures were satisfactory. At the end of the case, all sponge, instrument, sharp counts were correct x 2. The patient was taken back to the ICU in stable condition, and remained intubated. JOB# [id number] JANY/SERGO ALVAREZ
[2019-07-28] MEDS ORDERED: TOTAL PARENTERAL NUTRITION 2,016 ML IV SCH (20:00)
[2019-07-29] MEDS: PROPOFOL 1,000 MG/100 ML BOTTLE IV SCH ×3 (03:07→18:30)
[2019-07-29] MEDS: CEFEPIME/NS 2 GM/100 ML 2 GM/100 ML BAG IV SCH ×2 (03:45→16:55)
[2019-07-29 05:53] LABS: BUN/Creatinine Ratio 28; Blood Urea Nitrogen 17 mg/dL (9-20); Hemolysis Index 4
[2019-07-29] MEDS: fentaNYL DRIP Premix 2,000 MCG/100 ML BAG IV SCH ×3 (06:01→18:28)
[2019-07-29] MEDS: metroNIDAZOLE/NS 500 MG/100 ML 500 MG/100 ML BAG IV SCH ×3 (06:01→21:36)
[2019-07-29] MEDS: ENOXAPARIN 40 MG/0.4 ML INJ SUB-Q SCH (09:01)
[2019-07-29] MEDS: VALPROATE SODIUM 500 MG in SODIUM CHLORIDE 0.9% 100 ML IV SCH ×2 (09:01→21:37)
[2019-07-29] MEDS: FAMOTIDINE 20 MG/2 ML INJ IV SCH ×2 (09:01→21:36)
--- NOTE | 2019-07-29 09:27 | XRay Report ---
CHEST 1 VIEW INDICATION / CLINICAL INFORMATION: resp failure on vent sp exp lap. COMPARISON: 07/24/2019 chest FINDINGS: SUPPORT DEVICES: Right IJ central line with tip projecting over the SVC. Satisfactory position of the endotracheal tube. Esophagogastric tube enters the stomach, with tip outside the [id number]. Very low lung volumes. Much of the heart border is obscured, but no discernible change in heart size is identified. Dense opacity throughout the left hemithorax. Relatively better aeration of the right lung. IMPRESSION: 1. Moderate to large, layering left pleural effusion. There is likely a smaller right pleural effusio n. No overt pulmonary parenchymal consolidation, although underlying airspace disease is not excluded . Signer Name: Sinan Najera MD Signed: 07/29/2019 9:23 AM Workstation Name: [id number]
[2019-07-29] MEDS: FLUCONAZOLE 400 MG 200 ML IV SCH (10:11)
--- NOTE | 2019-07-29 10:11 | Progress Note ---
Assessment and Plan pt on vent awaiting repeat abd wash, ef 25-30%, pt npo on tpn, cont current treatment , discuss with mother about low ef and outpatient evulation once pt is stable. - Patient Problems (1) Abdominal pain Current Visit: Yes Status: Acute Qualifiers: Abdominal location: generalized Qualified Code(s): R10.84 - Generalized abdominal pain (2) Acute respiratory failure Current Visit: Yes Status: Acute Qualifiers: Respiratory failure complication: hypoxia Qualified Code(s): J96.01 - Acute respiratory failure with hypoxia (3) Cardiomyopathy Current Visit: Yes Status: Acute Qualifiers: Cardiomyopathy type: unspecified Qualified Code(s): I42.9 - Cardiomyopathy, unspecified (4) Elevated d-dimer Current Visit: Yes Status: Acute (5) Lactic acidosis Current Visit: Yes Status: Acute Subjective Date of service: 07/29/19 Principal diagnosis: Respiratory Failure Interval history: pt post surgery sedated Objective Vital Signs Temp Pulse Pulse Resp BP Pulse Ox 07/29/19 09:00 93 H 20 129/53 96 07/29/19 08:30 89 17 114/47 07/29/19 08:00 100.4 F H 84 93 H 15 124/49 97 07/29/19 07:50 96 H 07/29/19 07:30 98 H 18 105/40 94 07/29/19 07:00 109 H 17 124/43 93 07/29/19 06:30 141/58 79 L 07/29/19 06:00 97 H 14 141/58 96 07/29/19 05:30 91 H 12 130/54 93 07/29/19 05:00 87 14 135/57 95 07/29/19 04:48 89 125/56 92 07/29/19 04:30 91 H 16 125/56 92 07/29/19 04:00 99.0 F 92 H 17 130/53 93 07/29/19 03:30 95 H 23 121/52 94 07/29/19 03:00 95 H 15 131/62 91 07/29/19 02:30 97 H 18 135/64 95 07/29/19 02:00 77 16 120/54 95 07/29/19 01:30 85 18 125/55 95 07/29/19 01:12 78 119/58 96 07/29/19 01:00 91 H 16 119/58 94 07/29/19 00:30 95 H 18 127/60 93 07/29/19 00:00 91 H 17 128/61 94 07/28/19 23:49 99.7 F H 07/28/19 23:30 86 12 106/55 94 07/28/19 23:00 80 20 113/60 94 07/28/19 22:30 87 14 126/55 94 07/28/19 22:00 87 18 124/55 93 07/28/19 21:30 92 H 6 L 131/62 93 07/28/19 21:00 99 H 20 125/60 93 07/28/19 20:39 95 H 14 131/69 93 07/28/19 20:31 106 H 17 131/69 93 07/28/19 20:18 107 H 127/62 93 07/28/19 20:00 99.3 F 106 H 20 127/62 95 07/28/19 19:31 102 H 19 126/59 92 07/28/19 19:11 106 H 21 126/59 94 07/28/19 19:00 98 H 17 126/59 94 07/28/19 18:51 101 H 10 L 134/65 92 07/28/19 18:41 98 H 29 H 134/65 92 07/28/19 18:31 107 H 20 134/65 94 07/28/19 18:21 106 H 19 134/65 93 07/28/19 18:11 101 H 0 L 134/65 89 07/28/19 18:00 102 H 12 134/65 94 07/28/19 17:51 105 H 20 133/64 93 07/28/19 17:41 103 H 20 133/64 94 07/28/19 17:31 103 H 16 133/64 94 07/28/19 17:21 102 H 13 133/64 95 07/28/19 17:11 96 H 18 133/64 95 07/28/19 17:00 90 18 133/64 92 07/28/19 16:51 101 H 19 153/82 94 07/28/19 16:41 97 H 17 153/82 95 07/28/19 16:31 97 H 17 153/82 96 07/28/19 16:21 98 H 17 153/82 95 07/28/19 16:11 96 H 19 153/82 94 07/28/19 16:00 98 H 98 H 21 153/82 94 07/28/19 15:55 98.0 F 07/28/19 15:51 94 H 19 154/91 95 07/28/19 15:46 94 H 154/91 97 07/28/19 15:41 96 H 23 154/91 96 07/28/19 15:31 97 H 18 154/91 96 07/28/19 15:21 92 H 18 154/91 96 07/28/19 15:11 94 H 20 154/91 96 07/28/19 15:00 94 H 18 154/91 96 07/28/19 14:51 92 H 20 171/97 93 07/28/19 14:41 144/69 97 07/28/19 14:31 141/58 100 07/28/19 14:30 97.7 F 72 18 167/103 98 07/28/19 12:21 54 L 18 141/58 100 07/28/19 12:11 55 L 19 144/69 100 07/28/19 12:00 98.9 F 53 L 53 L 18 144/69 100 07/28/19 11:51 51 L 18 136/58 100 07/28/19 11:31 47 L 20 132/56 100 07/28/19 11:01 53 L 18 134/49 99 07/28/19 10:31 47 L 11 L 137/58 99 - Physical Examination General: Other (intubated) Neck: Positive: neck supple, trachea midline Cardiac: Positive: Reg Rate and Rhythm Lungs: Positive: clear to auscultation Neuro: Positive: Other (intubated) Abdomen: Positive: Other Skin: Positive: Other (abdominal surgical site). Negative: Rash Extremities: Absent: edema - Labs and Meds Comprehensive Metabolic Panel 07/29/19 Range/Units 05:15 Sodium 149 H (137-145) mmol/L Potassium 4.0 (3.6-5.0) mmol/L Chloride 113.9 H (98-107) mmol/L Carbon Dioxide 25 (22-30) mmol/L BUN 17 (9-20) mg/dL Creatinine 0.6 L (0.8-1.5) mg/dL Glucose 109 H (75-100) mg/dL Calcium 8.0 L (8.4-10.2) mg/dL - Imaging and Cardiology EKG: report reviewed, image reviewed Stress echo: report reviewed, image reviewed Echo: report reviewed ( EF 25-30%, LV mildly dilated, impaired relaxation, trivial pericardial effusion, mod pleural effusion. ) - Telemetry EKG Rhythm: Sinus Rhythm - EKG Sinus rhythms and dysrhythmias: sinus tachycardia
--- NOTE | 2019-07-29 12:08 | Progress Note ---
Assessment and Plan (1) Ischemic necrosis of large intestine Current Visit: Yes Status: Acute Plan to address problem: Pt stable. s/p ex-lap with partial colon resection (07/23) - POD#6; s/p abdominal colectomy with ileocolostomy (07/26) - POD#3; s/p abdominal reexploration, peritoneal lavage, closure of open abdomen, placement of URMILA drain (07/28) POD# 1 Plan: 1. neuro - sedation and pain control as needed 2. CV - DVT ppx. Monitor CBC 3. Resp - vent management per ICU 4. GI - NPO, TPN, NGT to LIWS. record URMILA output. Pt will likely have prolonged ileus, do not start TF until evidence of bowel function. GI ppx. Abdominal binder at all times. 5. - lee for strict I/Os. May be removed and replaced with condom cath when ok with 1' service and nephro 6. ID - abx per ID 7. Endo - blood glucose monitoring per protocol 8. FEN - BMP daily, replace lytes as needed. TPN Dispo - ICU No family at bedside. Thank you, please call with questions. Subjective Date of service: 07/29/19 Narrative: Pt seen and examined. Agitated while off sedation, kicking off boots and trying to get out of bed per nursing. No f/c. No bowel function. Objective Vital Signs - 12hr 07/29/19 07/29/19 07/29/19 00:30 01:00 01:12 Temperature Pulse Rate 95 H 91 H 78 Pulse Rate [ From Monitor] Respiratory 18 16 Rate Blood Pressure 127/60 119/58 119/58 O2 Sat by Pulse 93 94 96 Oximetry 07/29/19 07/29/19 07/29/19 01:30 02:00 02:30 Temperature Pulse Rate 85 77 97 H Pulse Rate [ From Monitor] Respiratory 18 16 18 Rate Blood Pressure 125/55 120/54 135/64 O2 Sat by Pulse 95 95 95 Oximetry 07/29/19 07/29/19 07/29/19 03:00 03:30 04:00 Temperature 99.0 F Pulse Rate 95 H 95 H 92 H Pulse Rate [ From Monitor] Respiratory 15 23 17 Rate Blood Pressure 131/62 121/52 130/53 O2 Sat by Pulse 91 94 93 Oximetry 07/29/19 07/29/1919 04:30 04:48 05:00 Temperature Pulse Rate 91 H 89 87 Pulse Rate [ From Monitor] Respiratory 16 14 Rate Blood Pressure 125/56 125/56 135/57 O2 Sat by Pulse 92 92 95 Oximetry 07/29/19 07/29/19 07/29/19 05:30 06:00 06:30 Temperature Pulse Rate 91 H 97 H Pulse Rate [ From Monitor] Respiratory 12 14 Rate Blood Pressure 130/54 141/58 141/58 O2 Sat by Pulse 93 96 79 L Oximetry 07/29/19 07/29/19 07/29/19 07:00 07:30 07:50 Temperature Pulse Rate 109 H 98 H 96 H Pulse Rate [ From Monitor] Respiratory 17 18 Rate Blood Pressure 124/43 105/40 O2 Sat by Pulse 93 94 Oximetry 07/29/19 07/29/19 07/29/19 08:00 08:30 09:00 Temperature 100.4 F H Pulse Rate 84 89 93 H Pulse Rate [ 93 H From Monitor] Respiratory 15 17 20 Rate Blood Pressure 124/49 114/47 129/53 O2 Sat by Pulse 97 96 Oximetry 07/29/19 07/29/19 09:30 10:00 Temperature Pulse Rate 89 85 Pulse Rate [ From Monitor] Respiratory 12 20 Rate Blood Pressure 121/54 124/48 O2 Sat by Pulse 97 98 Oximetry - General physical appearance Narrative Exam: Gen: Intubated, sedated ENT: NGT with bilious output. ETT in place CV: s1, S2+ Resp: on vent support Abd: soft, NT, ND. Dressing c/d/i. Urmila drain serous Ext: no c/c/e I/O Lee - 1500cc/24h URMILA - 130cc/24hr NGT - 700cc/24hr - Labs 07/28/19 04:12 07/29/19 05:15 Diabetes panel 07/29/19 Range/Units 05:15 Sodium 149 H (137-145) mmol/L Potassium 4.0 (3.6-5.0) mmol/L Chloride 113.9 H (98-107) mmol/L Carbon Dioxide 25 (22-30) mmol/L BUN 17 (9-20) mg/dL Creatinine 0.6 L (0.8-1.5) mg/dL Glucose 109 H (75-100) mg/dL Calcium 8.0 L (8.4-10.2) mg/dL Calcium panel 07/29/19 Range/Units 05:15 Calcium 8.0 L (8.4-10.2) mg/dL Phosphorus 3.90 D (2.5-4.5) mg/dL Pituitary panel 07/29/19 Range/Units 05:15 Sodium 149 H (137-145) mmol/L Potassium 4.0 (3.6-5.0) mmol/L Chloride 113.9 H (98-107) mmol/L Carbon Dioxide 25 (22-30) mmol/L BUN 17 (9-20) mg/dL Creatinine 0.6 L (0.8-1.5) mg/dL Glucose 109 H (75-100) mg/dL Calcium 8.0 L (8.4-10.2) mg/dL Adrenal panel 07/29/19 Range/Units 05:15 Sodium 149 H (137-145) mmol/L Potassium 4.0 (3.6-5.0) mmol/L Chloride 113.9 H (98-107) mmol/L Carbon Dioxide 25 (22-30) mmol/L BUN 17 (9-20) mg/dL Creatinine 0.6 L (0.8-1.5) mg/dL Glucose 109 H (75-100) mg/dL Calcium 8.0 L (8.4-10.2) mg/dL
--- NOTE | 2019-07-29 13:02 | Progress Note ---
Assessment and Plan 1. Acute kidney injury: Vasomotor COLUMBA in the setting of volume depletion. Patient was dialyzed once on due to hyperkalemia. Renal function is better. Continue IV fluids. Monitor renal function. Avoid nephrotoxic agents. Meds dosage based on GFR. 2. FEN: Hyperkalemia, improved after hemodialysis. Metabolic acidosis, improved. Hypernatremia, monitor. Patient is on PPN. Monitor lytes. 3. Hypotension: Improved. 4. Ischemic Colon: S/p Ex Lap and partial Colon Resection. S/p abd wall closure yesterday. Followed by Gen. Surgery. 5. Respiratory failure: On vent. 6. Sepsis: Resolved. 7. Sinus tachycardia: Improved. Examination: General appearance: well-developed, well-nourished, appears stated age, obese, intubated, on vent HEENT: ATNC, [place] Neck: neck supple, trachea midline Respiratory: Clear to Ascultation Heart: regular, S1S2, no murmur Gastrointestinal: obese, dressing noted Integumentary: no rash, warm and dry : Mcpherson catheter Neurologic: opens eyes Musculoskeletal: no deformity Ext: No edema Hemodialysis access: R IJ temp catheter Subjective Date of service: 07/29/19 Principal diagnosis: Respiratory Failure Interval history: Patient was seen and examined at the bedside. Objective - Vital Signs Vital signs: Vital Signs - 12hr 07/29/19 07/29/19 07/29/19 01:12 01:30 02:00 Temperature Pulse Rate 78 85 77 Pulse Rate [ From Monitor] Respiratory 18 16 Rate Blood Pressure 119/58 125/55 120/54 O2 Sat by Pulse 96 95 95 Oximetry 07/29/19 07/29/19 07/29/19 02:30 03:00 03:30 Temperature Pulse Rate 97 H 95 H 95 H Pulse Rate [ From Monitor] Respiratory 18 15 23 Rate Blood Pressure 135/64 131/62 121/52 O2 Sat by Pulse 95 91 94 Oximetry 07/29/19 07/29/19 07/29/19 04:00 04:30 04:48 Temperature 99.0 F Pulse Rate 92 H 91 H 89 Pulse Rate [ From Monitor] Respiratory 17 16 Rate Blood Pressure 130/53 125/56 125/56 O2 Sat by Pulse 93 92 92 Oximetry 07/29/19 07/29/19 07/29/19 05:00 05:30 06:00 Temperature Pulse Rate 87 91 H 97 H Pulse Rate [ From Monitor] Respiratory 14 12 14 Rate Blood Pressure 135/57 130/54 141/58 O2 Sat by Pulse 95 93 96 Oximetry 07/29/19 07/29/19 07/29/19 06:30 07:00 07:30 Temperature Pulse Rate 109 H 98 H Pulse Rate [ From Monitor] Respiratory 17 18 Rate Blood Pressure 141/58 124/43 105/40 O2 Sat by Pulse 79 L 93 94 Oximetry 07/29/19 07/29/19 07/29/19 07:50 08:00 08:30 Temperature 100.4 F H Pulse Rate 96 H 84 89 Pulse Rate [ 93 H From Monitor] Respiratory 15 17 Rate Blood Pressure 124/49 114/47 O2 Sat by Pulse 97 Oximetry 07/29/19 07/29/19 07/29/19 09:00 09:30 10:00 Temperature Pulse Rate 93 H 89 85 Pulse Rate [ From Monitor] Respiratory 20 12 20 Rate Blood Pressure 129/53 121/54 124/48 O2 Sat by Pulse 96 97 98 Oximetry 07/29/19 07/29/19 07/29/19 10:30 11:00 11:30 Temperature Pulse Rate 83 86 80 Pulse Rate [ From Monitor] Respiratory 23 22 19 Rate Blood Pressure 122/48 122/50 123/47 O2 Sat by Pulse 97 97 97 Oximetry 07/29/19 07/29/19 07/29/19 12:00 12:30 12:40 Temperature 99.5 F Pulse Rate 80 78 88 Pulse Rate [ 80 From Monitor] Respiratory 18 17 Rate Blood Pressure 121/53 123/46 124/52 O2 Sat by Pulse 97 96 96 Oximetry - Lab 07/28/19 04:12 07/29/19 05:15 Most recent lab results ABG pH 7.358 pH Units (7.350-7.450) 07/27/19 06:10 ABG pCO2 44.0 mm Hg 07/27/19 06:10 ABG pO2 84.6 mm Hg (80.0-90.0) 07/27/19 06:10 ABG HCO3 24.2 mmol/L (20.0-26.0) 07/27/19 06:10 ABG O2 Saturation 96.3 % (95.0-99.0) 07/27/19 06:10 Calcium 8.0 mg/dL (8.4-10.2) L 07/29/19 05:15 Phosphorus 3.90 mg/dL (2.5-4.5) D 07/29/19 05:15 Magnesium 1.60 mg/dL (1.7-2.3) L 07/29/19 05:15 Medications & Allergies - Medications Allergies/Adverse Reactions: Allergies No Known Allergies Allergy (Verified 10/20/15 03:43) Home Medications: Home Medications Medication Instructions Recorded Confirmed Last Taken Type Benztropine [Cogentin] 0.5 mg PO QHS 05/17/19 07/24/19 Unknown History Divalproex ER [Depakote ER] 500 mg PO BID 05/17/19 07/24/19 Unknown History clonazePAM [KlonoPIN] 2 mg PO BID 05/17/19 07/24/19 Unknown History traZODone [Desyrel] 100 mg PO HS 06/05/19 07/24/19 Unknown History Divalproex ER [Depakote ER] 500 mg PO BID tablet 06/06/19 07/24/19 Unknown Rx Lactulose 10 gm PO DAILY PRN #150 ml 07/21/19 Unknown Rx Active Medications: Generic Name Dose Route Start Last Admin Trade Name Freq PRN Reason Stop Dose Admin Acetaminophen 650 mg 07/23/19 02:48 Tylenol [place] Q4H PRN Fever >100.5 Albumin Human 25 gm 07/23/19 13:11 Alburx 25% (Albumin) IV DIOR PRN Hypotension Bisacodyl 10 mg 07/21/19 22:25 Dulcolax PO QDAY PRN Constipation Enoxaparin Sodium 40 mg 07/27/19 10:00 07/29/19 09:01 Lovenox SUB-Q 40 mg DAILY STEPHEN Administration Famotidine 20 mg 07/24/19 10:00 07/29/19 09:01 Pepcid IV 20 mg BID STEPHEN Administration Phenylephrine HCl 100 mg/ 100 mls @ 3 mls/hr 07/23/19 02:45 07/24/19 21:31 Sodium Chloride IV 0 mcg/min TITR STEPHEN 0 mls/hr Titration Protocol 50 MCG/MIN Vasopressin 20 unit/ Sodium 101 mls @ 9.09 mls/hr 07/23/19 10:00 07/25/19 09:44 Chloride IV Infused TITR STEPHEN Titration Protocol 0.03 UNITS/MIN Norepinephrine 8 mg/ Sodium 250 mls @ 3.75 mls/hr 07/23/19 12:00 07/23/19 13:08 Chloride IV 0 mcg/min TITR STEPHEN 0 mls/hr Titration Protocol 2 MCG/MIN Fentanyl Citrate 2,000 mcg in 100 mls @ 5.557 mls/hr 07/23/19 12:00 07/29/19 12:17 Fentanyl Drip Premix IV 4 mcg/kg/hr TITR STEPHEN 22.226 mls/hr Administration Protocol 1 MCG/KG/HR Cefepime HCl 2 gm in 100 mls @ 200 mls/hr 07/23/19 16:00 07/29/19 03:45 Maxipime/Ns 2 Gm/100 Ml IV 200 mls/hr Q12H STEPHEN Administration Protocol Metronidazole 500 mg in 100 mls @ 100 mls/hr 07/23/19 16:00 07/29/19 06:01 Flagyl 500 Mg/100 Ml IV 100 mls/hr Q8HR STEPHEN Administration Protocol Valproate Sodium 500 mg/ 105 mls @ 100 mls/hr 07/24/19 10:00 07/29/19 09:01 Sodium Chloride IV 100 mls/hr Q12HR STEPHEN Administration Fluconazole 200 mls @ 100 mls/hr 07/26/19 15:00 07/29/19 10:11 Diflucan IV 100 mls/hr Q24HR STEPHEN Administration Protocol Propofol 1,000 mg in 100 mls @ 4.353 mls/hr 07/26/19 23:00 07/29/19 12:18 Diprivan 10 Mg/Ml IV 15 mcg/kg/min TITR STEPHEN 13.059 mls/hr Administration Protocol 5 MCG/KG/MIN Amino Acids/Electrolytes/Dextrose 2,016 mls @ 84 mls/hr 07/28/19 20:00 07/28/19 20:32 Tpn Adult IV 07/29/19 19:59 84 mls/hr DAILY@2000 STEPHEN Administration Protocol Ondansetron HCl 4 mg 07/21/19 22:25 07/22/19 01:07 Zofran IV 4 mg Q8H PRN Administration Nausea And Vomiting
--- NOTE | 2019-07-29 13:17 | Progress Note ---
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 S/P Open abdominal wound closure 07/28- POD#0 Per surgery based on "Based on NGT appearance, patient has a post-op ileus. Hold any tube feeds for now. Would ideally like to see resumption of bowel function prior to starting tube feeds." Septic shock: intra-abdominal source. s/p ex-lap on 07/23/2019, Per surgery findings of multiple distinct areas of necrosis on transverse colon. Rest of intestines were normal. IV Cefepime, Flagyl, Fluconazole Discontinue femoral Line COLUMBA due to ATN Nephrology following lactic acidosis Secondary to ischemic Bowel Hyperkalemia Gave calcium Carbonate Insulin/Dextrose discussed with Dr. West severe constipation resolved, now has diarrhea due to laxatives Severe diarrhea due to laxatives after presenting with constipation Thrombocytopenia Continue to monitor Sinus tachycardia due to dehydration Downs syndrome supportive care full code status Prognosis guarded The high probability of a clinically significant, sudden or life threatening deterioration of the [renal, GI,] system(s) required my full and direct attention, intervention and personal management. The aggregate critical care time was [35] minutes. This time is in addition to time spent performing reported procedures but includes the following: [x] Data Review and interpretation [x] Patient assessment and monitoring of vital signs [x] Documentation [x] Medication orders and management Subjective Date of service: 07/29/19 Principal diagnosis: Respiratory Failure Interval history: Patient is 19 yo with Downs syndrome from [facility]. he initially presented with abdominal pain, nausea and vomiting. he was seen and examined in ED. CT Abd showed severe constipation. he was given Fleets enema, admitted. His BMP was WNL. By next day Cr was 2.2 and he had hyperkalemia of 5.3. Repeat hrs later showed worse Cr 2.2 and Potassium went up to 6.0. and he had developed shortness of breath, desaturation so was transferred to ICU. Objective - Constitutional Vitals: Vital Signs - 12hr 07/29/19 07/29/19 07/29/19 01:30 02:00 02:30 Temperature Pulse Rate 85 77 97 H Pulse Rate [ From Monitor] Respiratory 18 16 18 Rate Blood Pressure 125/55 120/54 135/64 O2 Sat by Pulse 95 95 95 Oximetry 07/29/19 07/29/19 07/29/19 03:00 03:30 04:00 Temperature 99.0 F Pulse Rate 95 H 95 H 92 H Pulse Rate [ From Monitor] Respiratory 15 23 17 Rate Blood Pressure 131/62 121/52 130/53 O2 Sat by Pulse 91 94 93 Oximetry 07/29/19 07/29/19 07/29/19 04:30 04:48 05:00 Temperature Pulse Rate 91 H 89 87 Pulse Rate [ From Monitor] Respiratory 16 14 Rate Blood Pressure 125/56 125/56 135/57 O2 Sat by Pulse 92 92 95 Oximetry 07/29/19 07/29/19 07/29/19 05:30 06:00 06:30 Temperature Pulse Rate 91 H 97 H Pulse Rate [ From Monitor] Respiratory 12 14 Rate Blood Pressure 130/54 141/58 141/58 O2 Sat by Pulse 93 96 79 L Oximetry 07/29/19 07/29/19 07/29/19 07:00 07:30 07:50 Temperature Pulse Rate 109 H 98 H 96 H Pulse Rate [ From Monitor] Respiratory 17 18 Rate Blood Pressure 124/43 105/40 O2 Sat by Pulse 93 94 Oximetry 07/29/19 07/29/19 07/29/19 08:00 08:30 09:00 Temperature 100.4 F H Pulse Rate 84 89 93 H Pulse Rate [ 93 H From Monitor] Respiratory 15 17 20 Rate Blood Pressure 124/49 114/47 129/53 O2 Sat by Pulse 97 96 Oximetry 07/29/19 07/29/19 07/29/19 09:30 10:00 10:30 Temperature Pulse Rate 89 85 83 Pulse Rate [ From Monitor] Respiratory 12 20 23 Rate Blood Pressure 121/54 124/48 122/48 O2 Sat by Pulse 97 98 97 Oximetry 07/29/19 07/29/19 07/29/19 11:00 11:30 12:00 Temperature 99.5 F Pulse Rate 86 80 80 Pulse Rate [ 80 From Monitor] Respiratory 22 19 18 Rate Blood Pressure 122/50 123/47 121/53 O2 Sat by Pulse 97 97 97 Oximetry 07/29/19 07/29/19 12:30 12:40 Temperature Pulse Rate 78 88 Pulse Rate [ From Monitor] Respiratory 17 Rate Blood Pressure 123/46 124/52 O2 Sat by Pulse 96 96 Oximetry General appearance: Present: no acute distress, well-nourished - EENT Eyes: PERRL, EOM intact ENT: hearing intact, clear oral mucosa Ears: bilateral: normal - Neck Neck: supple, normal ROM - Respiratory Respiratory effort: normal Respiratory: bilateral: CTA - Breasts Breasts: normal - Cardiovascular Heart rate: 88 Rhythm: regular Heart Sounds: Present: S1 & S2. Absent: gallop, rub Extremities: pulses intact, No edema, normal color, Full ROM - Gastrointestinal General gastrointestinal: Present: soft, non-tender, non-distended, normal bowel sounds - Genitourinary Male genitourinary: normal - Integumentary Integumentary: clear, warm, dry - Musculoskeletal Musculoskeletal: 1, strength equal bilaterally - Neurologic Neurologic: moves all extremities - Psychiatric Psychiatric: memory intact, appropriate mood/affect, intact judgment & insight - Labs CBC & Chem 7: 07/28/19 04:12 07/29/19 05:15 Labs: Abnormal lab results 07/29/19 07/29/19 07/29/19 Range/Units 05:15 05:34 05:34 POC ABG pCO2 46.9 H (35-45) POC ABG pO2 65 L (80-105) Sodium 149 H (137-145) mmol/L Chloride 113.9 H (98-107) mmol/L Creatinine 0.6 L (0.8-1.5) mg/dL Glucose 109 H (75-100) mg/dL POC Glucose 107 H (70-105) Calcium 8.0 L (8.4-10.2) mg/dL Magnesium 1.60 L (1.7-2.3) mg/dL
[2019-07-29] MEDS ORDERED: MAGNESIUM SULFATE 2 GM/50 ML BAG IV ONE (14:00)
--- NOTE | 2019-07-29 14:33 | Progress Note ---
Assessment and Plan - Patient Problems (1) Abdominal pain Current Visit: Yes Status: Acute Qualifiers: Abdominal location: generalized Qualified Code(s): R10.84 - Generalized abdominal pain (2) Acute renal failure Current Visit: Yes Status: Acute (3) Acute respiratory failure Current Visit: Yes Status: Acute Qualifiers: Respiratory failure complication: hypoxia Qualified Code(s): J96.01 - Acute respiratory failure with hypoxia (4) Cardiomyopathy Current Visit: Yes Status: Acute Qualifiers: Cardiomyopathy type: unspecified Qualified Code(s): I42.9 - Cardiomyopathy, unspecified (5) Lactic acidosis Current Visit: Yes Status: Acute (6) Leukocytosis Current Visit: Yes Status: Acute (7) Sinus tachycardia Current Visit: Yes Status: Resolved (8) Enterocolitis Current Visit: No Status: Acute (9) Pleural effusion on left Current Visit: Yes Status: Acute Subjective Principal diagnosis: Respiratory Failure Interval history: on vent. On diprivan and fentanyl Objective Vital Signs - 12hr 07/29/19 07/29/19 07/29/19 02:30 03:00 03:30 Temperature Pulse Rate 97 H 95 H 95 H Pulse Rate [ From Monitor] Respiratory 18 15 23 Rate Blood Pressure 135/64 131/62 121/52 O2 Sat by Pulse 95 91 94 Oximetry 07/29/19 07/29/19 07/29/19 04:00 04:30 04:48 Temperature 99.0 F Pulse Rate 92 H 91 H 89 Pulse Rate [ From Monitor] Respiratory 17 16 Rate Blood Pressure 130/53 125/56 125/56 O2 Sat by Pulse 93 92 92 Oximetry 07/29/19 07/29/19 07/29/19 05:00 05:30 06:00 Temperature Pulse Rate 87 91 H 97 H Pulse Rate [ From Monitor] Respiratory 14 12 14 Rate Blood Pressure 135/57 130/54 141/58 O2 Sat by Pulse 95 93 96 Oximetry 07/29/19 07/29/19 07/29/19 06:30 07:00 07:30 Temperature Pulse Rate 109 H 98 H Pulse Rate [ From Monitor] Respiratory 17 18 Rate Blood Pressure 141/58 124/43 105/40 O2 Sat by Pulse 79 L 93 94 Oximetry 07/29/19 07/29/19 07/29/19 07:50 08:00 08:30 Temperature 100.4 F H Pulse Rate 96 H 84 89 Pulse Rate [ 93 H From Monitor] Respiratory 15 17 Rate Blood Pressure 124/49 114/47 O2 Sat by Pulse 97 Oximetry 07/29/19 07/29/19 07/29/19 09:00 09:30 10:00 Temperature Pulse Rate 93 H 89 85 Pulse Rate [ From Monitor] Respiratory 20 12 20 Rate Blood Pressure 129/53 121/54 124/48 O2 Sat by Pulse 96 97 98 Oximetry 07/29/19 07/29/19 07/29/19 10:30 11:00 11:30 Temperature Pulse Rate 83 86 80 Pulse Rate [ From Monitor] Respiratory 23 22 19 Rate Blood Pressure 122/48 122/50 123/47 O2 Sat by Pulse 97 97 97 Oximetry 07/29/19 07/29/19 07/29/19 12:00 12:30 12:40 Temperature 99.5 F Pulse Rate 80 78 88 Pulse Rate [ 80 From Monitor] Respiratory 18 17 Rate Blood Pressure 121/53 123/46 124/52 O2 Sat by Pulse 97 96 96 Oximetry Constitutional: no acute distress, other (obese, sedated, critically ill on morales tilator) Eyes: non-icteric ENT: oropharynx moist Neck: supple Effort: normal Ascultation: Bilateral: diminished breath sounds (due to obesity) Cardiovascular: regular rate and rhythm Gastrointestinal: normoactive bowel sounds, soft, other (morbidly obese abd) Integumentary: normal Extremities: no cyanosis, no edema, pink and warm Neurologic: normal mental status, non-focal exam, pupils equal and round, other (on vent) Psychiatric: mood appropriate, affect normal CBC and BMP: 07/28/19 04:12 07/29/19 05:15 ABG, PT/INR, D-dimer: ABG POC ABG pH 7.354 (7.35-7.45) 07/29/19 05:34 ABG pH 7.358 pH Units (7.350-7.450) 07/27/19 06:10 POC ABG pCO2 46.9 (35-45) H 07/29/19 05:34 ABG pCO2 44.0 mm Hg 07/27/19 06:10 POC ABG pO2 65 (80-105) L 07/29/19 05:34 ABG pO2 84.6 mm Hg (80.0-90.0) 07/27/19 06:10 POC ABG HCO3 26.1 (22-26 mml/L) 07/29/19 05:34 POC ABG Total CO2 28 (23-27mmol/L) 07/29/19 05:34 POC ABG O2 Sat 91 07/29/19 05:34 ABG O2 Saturation 96.3 % (95.0-99.0) 07/27/19 06:10 PT/INR, D-dimer D-Dimer 886.89 ng/mlDDU (0-234) H 07/22/19 21:45 Abnormal lab findings: Abnormal Labs 07/21/19 07/21/19 07/22/19 19:02 19:02 10:50 WBC 12.1 H 13.7 H RBC 5.56 H Hgb 17.1 H Hct 52.9 H D MCV 95 H 95 H RDW Plt Count 130 L 137 L Lymph % (Auto) 7.2 L [place] % (Auto) 9.6 H Lymph # 0.9 L [place] # 1.2 H Seg Neutrophils % 82.8 H Lymphocytes % (Manual) Monocytes % (Manual) Nucleated RBC % Seg Neutrophils # 10.0 H Seg Neutrophils # Man Lymphocytes # (Manual) Monocytes # (Manual) D-Dimer POC ABG pH ABG pH POC ABG pCO2 POC ABG pO2 ABG pO2 ABG O2 Saturation ABG Hemoglobin Oxyhemoglobin Sodium 136 L Potassium Chloride 95.9 L Carbon Dioxide BUN Creatinine Glucose 163 H POC Glucose Lactic Acid Calcium Phosphorus Magnesium Total Bilirubin AST NT-Pro-B Natriuret Pep Total Protein Albumin Lipase 10 L 07/22/19 07/22/19 07/22/19 10:50 15:33 15:33 WBC 13.1 H RBC 5.10 H Hgb 15.9 H Hct 49.0 H MCV 96 H RDW Plt Count 127 L Lymph % (Auto) [place] % (Auto) Lymph # [place] # Seg Neutrophils % Lymphocytes % (Manual) Monocytes % (Manual) Nucleated RBC % Seg Neutrophils # Seg Neutrophils # Man Lymphocytes # (Manual) Monocytes # (Manual) D-Dimer POC ABG pH ABG pH POC ABG pCO2 POC ABG pO2 ABG pO2 ABG O2 Saturation ABG Hemoglobin Oxyhemoglobin Sodium 136 L Potassium 5.3 H D 6.0 H Chloride 96.7 L Carbon Dioxide 17 L BUN 22 H 29 H Creatinine 2.0 H D 2.2 H Glucose 129 H 121 H POC Glucose Lactic Acid Calcium 8.2 L Phosphorus 4.70 H Magnesium 3.10 H Total Bilirubin AST NT-Pro-B Natriuret Pep Total Protein Albumin Lipase 07/22/19 07/22/19 07/22/19 18:19 18:42 21:45 WBC RBC Hgb Hct MCV RDW Plt Count Lymph % (Auto) [place] % (Auto) Lymph # [place] # Seg Neutrophils % Lymphocytes % (Manual) Monocytes % (Manual) Nucleated RBC % Seg Neutrophils # Seg Neutrophils # Man Lymphocytes # (Manual) Monocytes # (Manual) D-Dimer 886.89 H POC ABG pH 7.197 L ABG pH POC ABG pCO2 45.2 H POC ABG pO2 ABG pO2 ABG O2 Saturation ABG Hemoglobin Oxyhemoglobin Sodium Potassium Chloride Carbon Dioxide BUN Creatinine Glucose POC Glucose 107 H Lactic Acid Calcium Phosphorus Magnesium Total Bilirubin AST NT-Pro-B Natriuret Pep Total Protein Albumin Lipase 07/22/19 07/22/19 07/22/19 21:45 21:45 21:45 WBC RBC Hgb Hct MCV RDW Plt Count Lymph % (Auto) [place] % (Auto) Lymph # [place] # Seg Neutrophils % Lymphocytes % (Manual) Monocytes % (Manual) Nucleated RBC % Seg Neutrophils # Seg Neutrophils # Man Lymphocytes # (Manual) Monocytes # (Manual) D-Dimer POC ABG pH ABG pH POC ABG pCO2 POC ABG pO2 ABG pO2 ABG O2 Saturation ABG Hemoglobin Oxyhemoglobin Sodium 136 L Potassium 5.6 H Chloride Carbon Dioxide 20 L BUN 38 H Creatinine 2.6 H Glucose 63 L POC Glucose Lactic Acid 3.10 H* Calcium 8.2 L Phosphorus Magnesium Total Bilirubin AST NT-Pro-B Natriuret Pep 5407 H Total Protein Albumin Lipase 07/23/19 07/23/19 07/23/19 02:11 02:50 02:50 WBC 15.0 H RBC Hgb Hct MCV 95 H RDW Plt Count 118 L Lymph % (Auto) [place] % (Auto) Lymph # [place] # Seg Neutrophils % Lymphocytes % (Manual) 9.0 L Monocytes % (Manual) 17.0 H Nucleated RBC % Seg Neutrophils # Seg Neutrophils # Man Lymphocytes # (Manual) Monocytes # (Manual) 2.6 H D-Dimer POC ABG pH ABG pH POC ABG pCO2 POC ABG pO2 ABG pO2 ABG O2 Saturation ABG Hemoglobin Oxyhemoglobin Sodium Potassium Chloride Carbon Dioxide BUN Creatinine Glucose POC Glucose 69 L Lactic Acid 3.30 H* Calcium Phosphorus Magnesium Total Bilirubin AST NT-Pro-B Natriuret Pep Total Protein Albumin Lipase 07/23/19 07/23/19 07/23/19 02:50 03:09 04:30 WBC RBC Hgb Hct MCV RDW Plt Count Lymph % (Auto) [place] % (Auto) Lymph # [place] # Seg Neutrophils % Lymphocytes % (Manual) Monocytes % (Manual) Nucleated RBC % Seg Neutrophils # Seg Neutrophils # Man Lymphocytes # (Manual) Monocytes # (Manual) D-Dimer POC ABG pH 7.296 L ABG pH POC ABG pCO2 POC ABG pO2 66 L ABG pO2 ABG O2 Saturation ABG Hemoglobin Oxyhemoglobin Sodium 134 L Potassium 7.5 H* D Chloride Carbon Dioxide 21 L BUN 47 H Creatinine 2.7 H Glucose POC Glucose Lactic Acid 3.50 H* Calcium 7.6 L Phosphorus Magnesium 2.90 H Total Bilirubin AST 60 H NT-Pro-B Natriuret Pep Total Protein 5.5 L D Albumin 2.5 L Lipase 07/23/19 07/23/19 07/23/19 07:30 09:03 09:03 WBC RBC Hgb Hct MCV RDW Plt Count Lymph % (Auto) [place] % (Auto) Lymph # [place] # Seg Neutrophils % Lymphocytes % (Manual) Monocytes % (Manual) Nucleated RBC % Seg Neutrophils # Seg Neutrophils # Man Lymphocytes # (Manual) Monocytes # (Manual) D-Dimer POC ABG pH ABG pH POC ABG pCO2 POC ABG pO2 ABG pO2 ABG O2 Saturation ABG Hemoglobin Oxyhemoglobin Sodium 136 L Potassium 6.6 H* 7.1 H* Chloride Carbon Dioxide 20 L BUN 50 H 49 H Creatinine 2.6 H 2.4 H Glucose 67 L POC Glucose Lactic Acid 4.10 H* Calcium 7.6 L 7.7 L Phosphorus Magnesium Total Bilirubin AST NT-Pro-B Natriuret Pep Total Protein Albumin Lipase 07/23/19 07/23/19 07/23/19 10:52 13:13 14:48 WBC RBC Hgb Hct MCV RDW Plt Count Lymph % (Auto) [place] % (Auto) Lymph # [place] # Seg Neutrophils % Lymphocytes % (Manual) Monocytes % (Manual) Nucleated RBC % Seg Neutrophils # Seg Neutrophils # Man Lymphocytes # (Manual) Monocytes # (Manual) D-Dimer POC ABG pH 7.280 L ABG pH POC ABG pCO2 48.7 H POC ABG pO2 ABG pO2 ABG O2 Saturation ABG Hemoglobin Oxyhemoglobin Sodium Potassium Chloride Carbon Dioxide BUN Creatinine Glucose POC Glucose 123 H Lactic Acid 4.10 H* Calcium Phosphorus Magnesium Total Bilirubin AST NT-Pro-B Natriuret Pep Total Protein Albumin Lipase 07/23/19 07/23/19 07/23/19 15:56 17:35 Unknown WBC RBC Hgb Hct MCV RDW Plt Count Lymph % (Auto) [place] % (Auto) Lymph # [place] # Seg Neutrophils % Lymphocytes % (Manual) Monocytes % (Manual) Nucleated RBC % Seg Neutrophils # Seg Neutrophils # Man Lymphocytes # (Manual) Monocytes # (Manual) D-Dimer POC ABG pH ABG pH POC ABG pCO2 POC ABG pO2 ABG pO2 ABG O2 Saturation ABG Hemoglobin Oxyhemoglobin Sodium Potassium Chloride Carbon Dioxide BUN Creatinine Glucose POC Glucose Lactic Acid 3.00 H* 4.10 H* 4.90 H* Calcium Phosphorus Magnesium Total Bilirubin AST NT-Pro-B Natriuret Pep Total Protein Albumin Lipase 07/23/19 07/24/19 07/24/19 Unknown 00:05 00:40 WBC RBC Hgb Hct MCV RDW Plt Count Lymph % (Auto) [place] % (Auto) Lymph # [place] # Seg Neutrophils % Lymphocytes % (Manual) Monocytes % (Manual) Nucleated RBC % Seg Neutrophils # Seg Neutrophils # Man Lymphocytes # (Manual) Monocytes # (Manual) D-Dimer POC ABG pH ABG pH POC ABG pCO2 POC ABG pO2 ABG pO2 151.3 H ABG O2 Saturation ABG Hemoglobin Oxyhemoglobin Sodium Potassium 5.6 H D Chloride Carbon Dioxide BUN 29 H Creatinine Glucose 128 H POC Glucose 118 H Lactic Acid Calcium 7.4 L Phosphorus Magnesium Total Bilirubin AST NT-Pro-B Natriuret Pep Total Protein Albumin Lipase 07/24/19 07/24/19 07/24/19 04:00 05:37 05:37 WBC RBC Hgb Hct MCV RDW Plt Count 89 L Lymph % (Auto) [place] % (Auto) Lymph # [place] # Seg Neutrophils % Lymphocytes % (Manual) 5.0 L Monocytes % (Manual) Nucleated RBC % Seg Neutrophils # Seg Neutrophils # Man Lymphocytes # (Manual) 0.5 L Monocytes # (Manual) D-Dimer POC ABG pH ABG pH POC ABG pCO2 POC ABG pO2 ABG pO2 ABG O2 Saturation ABG Hemoglobin Oxyhemoglobin Sodium Potassium Chloride Carbon Dioxide BUN 29 H Creatinine Glucose 120 H POC Glucose 123 H Lactic Acid Calcium 7.4 L Phosphorus 2.30 L D Magnesium Total Bilirubin 1.40 H AST 107 H NT-Pro-B Natriuret Pep Total Protein 5.3 L Albumin 2.5 L Lipase 07/24/19 07/24/19 07/24/19 05:37 10:18 18:44 WBC RBC Hgb Hct MCV RDW Plt Count Lymph % (Auto) [place] % (Auto) Lymph # [place] # Seg Neutrophils % Lymphocytes % (Manual) Monocytes % (Manual) Nucleated RBC % Seg Neutrophils # Seg Neutrophils # Man Lymphocytes # (Manual) Monocytes # (Manual) D-Dimer POC ABG pH 7.464 H ABG pH POC ABG pCO2 POC ABG pO2 125 H ABG pO2 ABG O2 Saturation ABG Hemoglobin Oxyhemoglobin Sodium Potassium Chloride Carbon Dioxide BUN Creatinine Glucose POC Glucose 130 H Lactic Acid 3.90 H* Calcium Phosphorus Magnesium Total Bilirubin AST NT-Pro-B Natriuret Pep Total Protein Albumin Lipase 07/24/19 07/25/19 07/25/19 18:52 04:45 04:45 WBC RBC Hgb Hct MCV RDW Plt Count 91 L Lymph % (Auto) [place] % (Auto) Lymph # [place] # Seg Neutrophils % Lymphocytes % (Manual) Monocytes % (Manual) Nucleated RBC % Seg Neutrophils # Seg Neutrophils # Man Lymphocytes # (Manual) Monocytes # (Manual) D-Dimer POC ABG pH ABG pH POC ABG pCO2 POC ABG pO2 ABG pO2 ABG O2 Saturation ABG Hemoglobin Oxyhemoglobin Sodium Potassium Chloride Carbon Dioxide BUN 24 H Creatinine Glucose POC Glucose 107 H Lactic Acid Calcium 7.9 L Phosphorus 2.20 L Magnesium Total Bilirubin AST NT-Pro-B Natriuret Pep Total Protein Albumin Lipase 07/25/19 07/26/19 07/26/19 05:32 02:20 05:00 WBC RBC Hgb Hct MCV RDW Plt Count Lymph % (Auto) [place] % (Auto) Lymph # [place] # Seg Neutrophils % Lymphocytes % (Manual) Monocytes % (Manual) Nucleated RBC % Seg Neutrophils # Seg Neutrophils # Man Lymphocytes # (Manual) Monocytes # (Manual) D-Dimer POC ABG pH ABG pH POC ABG pCO2 POC ABG pO2 ABG pO2 70.6 L ABG O2 Saturation 94.7 L ABG Hemoglobin 12.0 L Oxyhemoglobin 92.8 L Sodium 148 H Potassium Chloride 112.1 H Carbon Dioxide BUN Creatinine 0.6 L Glucose 71 L POC Glucose 62 L Lactic Acid Calcium 8.3 L Phosphorus Magnesium Total Bilirubin AST NT-Pro-B Natriuret Pep Total Protein Albumin Lipase 07/26/19 07/26/19 07/27/19 05:45 05:47 05:00 WBC 13.1 H RBC Hgb Hct MCV RDW 15.8 H Plt Count 113 L Lymph % (Auto) [place] % (Auto) Lymph # [place] # Seg Neutrophils % Lymphocytes % (Manual) Monocytes % (Manual) 16.0 H Nucleated RBC % 2.0 H Seg Neutrophils # Seg Neutrophils # Man 8.1 H Lymphocytes # (Manual) Monocytes # (Manual) 2.1 H D-Dimer POC ABG pH ABG pH 7.309 L POC ABG pCO2 POC ABG pO2 ABG pO2 73.3 L ABG O2 Saturation 93.9 L ABG Hemoglobin 12.4 L Oxyhemoglobin 92.1 L Sodium Potassium Chloride Carbon Dioxide BUN Creatinine Glucose POC Glucose 68 L Lactic Acid Calcium Phosphorus Magnesium Total Bilirubin AST NT-Pro-B Natriuret Pep Total Protein Albumin Lipase 07/27/19 07/27/19 07/27/19 05:00 06:10 09:49 WBC RBC Hgb Hct MCV RDW Plt Count Lymph % (Auto) [place] % (Auto) Lymph # [place] # Seg Neutrophils % Lymphocytes % (Manual) Monocytes % (Manual) Nucleated RBC % Seg Neutrophils # Seg Neutrophils # Man Lymphocytes # (Manual) Monocytes # (Manual) D-Dimer POC ABG pH ABG pH POC ABG pCO2 POC ABG pO2 ABG pO2 ABG O2 Saturation ABG Hemoglobin 12.6 L Oxyhemoglobin 94.2 L Sodium 149 H Potassium Chloride 114.6 H Carbon Dioxide BUN Creatinine Glucose POC Glucose 110 H Lactic Acid Calcium 7.9 L Phosphorus Magnesium Total Bilirubin AST NT-Pro-B Natriuret Pep Total Protein Albumin Lipase 07/28/19 07/28/19 07/29/19 04:12 04:12 05:15 WBC 15.3 H RBC Hgb 11.5 L Hct 34.4 L MCV RDW 15.9 H Plt Count Lymph % (Auto) [place] % (Auto) Lymph # [place] # Seg Neutrophils % Lymphocytes % (Manual) Monocytes % (Manual) Nucleated RBC % Seg Neutrophils # Seg Neutrophils # Man Lymphocytes # (Manual) Monocytes # (Manual) D-Dimer POC ABG pH ABG pH POC ABG pCO2 POC ABG pO2 ABG pO2 ABG O2 Saturation ABG Hemoglobin Oxyhemoglobin Sodium 149 H 149 H Potassium Chloride 113.3 H 113.9 H Carbon Dioxide BUN Creatinine 0.7 L 0.6 L Glucose 109 H POC Glucose Lactic Acid Calcium 8.0 L 8.0 L Phosphorus Magnesium 1.60 L Total Bilirubin AST NT-Pro-B Natriuret Pep Total Protein 4.2 L D Albumin 2.0 L Lipase 07/29/19 07/29/19 05:34 05:34 WBC RBC Hgb Hct MCV RDW Plt Count Lymph % (Auto) [place] % (Auto) Lymph # [place] # Seg Neutrophils % Lymphocytes % (Manual) Monocytes % (Manual) Nucleated RBC % Seg Neutrophils # Seg Neutrophils # Man Lymphocytes # (Manual) Monocytes # (Manual) D-Dimer POC ABG pH ABG pH POC ABG pCO2 46.9 H POC ABG pO2 65 L ABG pO2 ABG O2 Saturation ABG Hemoglobin Oxyhemoglobin Sodium Potassium Chloride Carbon Dioxide BUN Creatinine Glucose POC Glucose 107 H Lactic Acid Calcium Phosphorus Magnesium Total Bilirubin AST NT-Pro-B Natriuret Pep Total Protein Albumin Lipase Chest x-ray: report reviewed, image reviewed (large lt effusion)
[2019-07-29] MEDS: FUROSEMIDE 20 MG/2 ML INJ IV SCH (17:03)
[2019-07-29] MEDS ORDERED: TOTAL PARENTERAL NUTRITION 2,016 ML IV SCH (20:00)
--- NOTE | 2019-07-29 20:18 | Progress Note ---
Assessment and Plan Cultures: 07/21/2019 blood culture: No growth A/P: 19-year-old male with Down syndrome admitted with severe constipation and fecal impaction: 1) Septic shock: resolved. Noted low grade fever and leukocytosis. Intra- abdominal source. s/p ex-lap on 07/23/2019, findings of multiple distinct areas of necrosis on transverse colon. Rest of intestines were normal. Gen. Surg following. 2) Acute renal failure: resolved. Creatinine normal. Dose adjust abx accordingly. 3) Fecal impaction, colonic distention and shock: s/p ex-lap on 07/23/2019, findings of multiple distinct areas of necrosis on transverse colon. rest of intestines were normal. Gen. Surg following, s/p washout on 07/26/2019 along with abdominal colectomy with ileosigmoid anastomosis, open abdomen with plans for re-trip to [place]. 4) Acute respiratory failure: Intubated, on vent. Recs: Monitor fever and leukocytosis Continue IV Cefepime, Flagyl, Fluconazole Stop abx 2 days post abdominal closure Remove lee as possible Will follow. Karen Silveira MD Infectious Diseases [facility] M [phone] O [phone] Subjective Date of service: 07/29/19 Principal diagnosis: Respiratory Failure Interval history: Remains sedated intubated low grade fever Objective - Exam Narrative Exam: General appearance: sedated intubated Eyes: anicteric sclerae, moist conjunctivae; no lid-lag; PERRLA HENT: Atraumatic; oropharynx with ETT, NGT Lungs: CTA, with normal respiratory effort and no intercostal retractions CV: RRR no murmur Abdomen: Soft, surg wound Extremities: no edema, no cyanosis Skin: No rash. Psych: no agitated. Neuro: sedated - Constitutional Vitals: Vital Signs Temp Pulse Resp BP Pulse Ox 99.9 F H 77 18 120/40 93 07/29/19 16:00 07/29/19 19:00 07/29/19 19:00 07/29/19 19:00 07/29/19 19:00 Temperature -Last 24 Hours Temperature 99.9 F Temperature 99.5 F Temperature 100.4 F Temperature 99.0 F Temperature 99.7 F - Labs CBC & Chem 7: 07/28/19 04:12 07/29/19 05:15 Labs: Abnormal lab results 07/29/19 07/29/19 07/29/19 Range/Units 05:15 05:34 05:34 POC ABG pCO2 46.9 H (35-45) POC ABG pO2 65 L (80-105) Sodium 149 H (137-145) mmol/L Chloride 113.9 H (98-107) mmol/L Creatinine 0.6 L (0.8-1.5) mg/dL Glucose 109 H (75-100) mg/dL POC Glucose 107 H (70-105) Calcium 8.0 L (8.4-10.2) mg/dL Magnesium 1.60 L (1.7-2.3) mg/dL
[2019-07-30] MEDS: fentaNYL DRIP Premix 2,000 MCG/100 ML BAG IV SCH ×5 (00:34→19:14)
[2019-07-30] MEDS: PROPOFOL 1,000 MG/100 ML BOTTLE IV SCH ×4 (02:44→22:05)
[2019-07-30] MEDS: CEFEPIME/NS 2 GM/100 ML 2 GM/100 ML BAG IV SCH ×2 (03:29→16:01)
[2019-07-30 05:27] LABS: Hematocrit 31.4 % (35.5-45.6); Hemoglobin 10.5 gm/dl (11.8-15.2); Mean Corpuscular HGB Conc 33 % (32-34); Mean Corpuscular Volume 94 fl (84-94); Platelet Count 177 K/mm3 (140-440); Red Blood Count 3.36 M/mm3 (3.65-5.03); Red Cell Distribution Width 15.8 % (13.2-15.2)
[2019-07-30 05:47] LABS: BUN/Creatinine Ratio 31; Blood Urea Nitrogen 22 mg/dL (9-20); Calcium 7.9 mg/dL (8.4-10.2); Hemolysis Index 2
[2019-07-30] MEDS: metroNIDAZOLE/NS 500 MG/100 ML 500 MG/100 ML BAG IV SCH ×3 (06:08→22:05)
[2019-07-30] MEDS: FUROSEMIDE 20 MG/2 ML INJ IV SCH ×2 (06:08→18:17)
[2019-07-30] MEDS: ENOXAPARIN 40 MG/0.4 ML INJ SUB-Q SCH (09:00)
[2019-07-30] MEDS: FAMOTIDINE 20 MG/2 ML INJ IV SCH ×2 (09:00→22:05)
[2019-07-30] MEDS: VALPROATE SODIUM 500 MG in SODIUM CHLORIDE 0.9% 100 ML IV SCH ×2 (09:01→22:12)
--- NOTE | 2019-07-30 09:48 | Progress Note ---
Assessment and Plan 1. Acute kidney injury: Vasomotor COLUMBA in the setting of volume depletion. Patient was dialyzed once on due to hyperkalemia. Renal function is better. Monitor renal function. Avoid nephrotoxic agents. Meds dosage based on GFR. 2. FEN: Hyperkalemia, improved after hemodialysis. Metabolic acidosis, improved. Hypernatremia, improving. Patient is on PPN. Monitor lytes. 3. Hypotension: Improved. 4. Ischemic Colon: S/p Ex Lap and partial Colon Resection. S/p abd wall closure. Followed by Gen. Surgery. 5. Respiratory failure: On vent. 6. Sepsis: Resolved. 7. Sinus tachycardia: Improved. Examination: General appearance: well-developed, well-nourished, appears stated age, obese, intubated, on vent HEENT: ATNC, [place] Neck: neck supple, trachea midline Respiratory: Clear to Ascultation Heart: regular, S1S2, no murmur Gastrointestinal: obese, dressing noted Integumentary: no rash, warm and dry : Mcpherson catheter Neurologic: opens eyes Musculoskeletal: no deformity Ext: No edema Hemodialysis access: R IJ temp catheter Subjective Date of service: 07/30/19 Principal diagnosis: Respiratory Failure Interval history: Patient was seen and examined at the bedside. Mother at the bedside. Objective - Vital Signs Vital signs: Vital Signs - 12hr 07/29/19 07/29/19 07/29/19 22:00 22:30 23:00 Temperature Pulse Rate 71 66 67 Pulse Rate [ From Monitor] Respiratory 18 18 19 Rate Blood Pressure 117/37 112/36 114/33 O2 Sat by Pulse 95 95 96 Oximetry 07/29/19 07/30/19 07/30/19 23:30 00:00 00:30 Temperature 99.6 F Pulse Rate 75 70 73 Pulse Rate [ From Monitor] Respiratory 18 18 18 Rate Blood Pressure 124/37 115/36 110/34 O2 Sat by Pulse 96 96 97 Oximetry 07/30/19 07/30/19 07/30/19 01:00 01:30 02:00 Temperature Pulse Rate 61 66 65 Pulse Rate [ From Monitor] Respiratory 18 18 18 Rate Blood Pressure 111/31 116/31 113/30 O2 Sat by Pulse 96 96 97 Oximetry 07/30/19 07/30/19 07/30/19 02:06 02:30 03:00 Temperature Pulse Rate 68 64 75 Pulse Rate [ From Monitor] Respiratory 18 18 Rate Blood Pressure 118/33 110/29 115/35 O2 Sat by Pulse 98 97 96 Oximetry 07/30/19 07/30/19 07/30/19 03:30 04:00 04:30 Temperature 100.0 F H Pulse Rate 84 67 67 Pulse Rate [ From Monitor] Respiratory 20 18 17 Rate Blood Pressure 122/39 111/33 118/22 O2 Sat by Pulse 96 96 97 Oximetry 07/30/19 07/30/19 07/30/19 05:00 05:03 05:30 Temperature Pulse Rate 68 68 68 Pulse Rate [ From Monitor] Respiratory 18 18 Rate Blood Pressure 115/36 115/36 118/37 O2 Sat by Pulse 96 96 97 Oximetry 07/30/19 07/30/19 07/30/19 06:00 06:30 07:00 Temperature Pulse Rate 60 58 L Pulse Rate [ From Monitor] Respiratory 18 18 18 Rate Blood Pressure 99/36 120/36 114/30 O2 Sat by Pulse 96 98 98 Oximetry 07/30/19 07/30/19 07/30/19 07:30 08:00 08:15 Temperature 99.3 F Pulse Rate 56 L 60 61 Pulse Rate [ 60 From Monitor] Respiratory 18 18 Rate Blood Pressure 116/29 123/34 116/33 O2 Sat by Pulse 99 99 98 Oximetry - Lab 07/30/19 04:46 07/30/19 04:46 Most recent lab results ABG pH 7.358 pH Units (7.350-7.450) 07/27/19 06:10 ABG pCO2 44.0 mm Hg 07/27/19 06:10 ABG pO2 84.6 mm Hg (80.0-90.0) 07/27/19 06:10 ABG HCO3 24.2 mmol/L (20.0-26.0) 07/27/19 06:10 ABG O2 Saturation 96.3 % (95.0-99.0) 07/27/19 06:10 Calcium 7.9 mg/dL (8.4-10.2) L 07/30/19 04:46 Phosphorus 4.60 mg/dL (2.5-4.5) H 07/30/19 04:46 Magnesium 2.20 mg/dL (1.7-2.3) 07/30/19 04:46 Medications & Allergies - Medications Allergies/Adverse Reactions: Allergies No Known Allergies Allergy (Verified 10/20/15 03:43) Home Medications: Home Medications Medication Instructions Recorded Confirmed Last Taken Type Benztropine [Cogentin] 0.5 mg PO QHS 05/17/19 07/24/19 Unknown History Divalproex ER [Depakote ER] 500 mg PO BID 05/17/19 07/24/19 Unknown History clonazePAM [KlonoPIN] 2 mg PO BID 05/17/19 07/24/19 Unknown History traZODone [Desyrel] 100 mg PO HS 06/05/19 07/24/19 Unknown History Divalproex ER [Depakote ER] 500 mg PO BID tablet 06/06/19 07/24/19 Unknown Rx Lactulose 10 gm PO DAILY PRN #150 ml 07/21/19 Unknown Rx Active Medications: Generic Name Dose Route Start Last Admin Trade Name Freq PRN Reason Stop Dose Admin Acetaminophen 650 mg 07/23/19 02:48 Tylenol WA Q4H PRN Fever >100.5 Albumin Human 25 gm 07/23/19 13:11 Alburx 25% (Albumin) IV DIOR PRN Hypotension Enoxaparin Sodium 40 mg 07/27/19 10:00 07/30/19 09:00 Lovenox SUB-Q 40 mg DAILY STEPHEN Administration Famotidine 20 mg 07/24/19 10:00 07/30/19 09:00 Pepcid IV 20 mg BID STEPHEN Administration Furosemide 20 mg 07/29/19 18:00 07/30/19 06:08 Lasix IV 20 mg 0600,1800 STEPHEN Administration Phenylephrine HCl 100 mg/ 100 mls @ 3 mls/hr 07/23/19 02:45 07/24/19 21:31 Sodium Chloride IV 0 mcg/min TITR STEPHEN 0 mls/hr Titration Protocol 50 MCG/MIN Vasopressin 20 unit/ Sodium 101 mls @ 9.09 mls/hr 07/23/19 10:00 07/25/19 0 9:44 Chloride IV Infused TITR STEPHEN Titration Protocol 0.03 UNITS/MIN Norepinephrine 8 mg/ Sodium 250 mls @ 3.75 mls/hr 07/23/19 12:00 07/23/19 13:08 Chloride IV 0 mcg/min TITR STEPHEN 0 mls/hr Titration Protocol 2 MCG/MIN Fentanyl Citrate 2,000 mcg in 100 mls @ 5.557 mls/hr 07/23/19 12:00 07/30/19 06:03 Fentanyl Drip Premix IV 4 mcg/kg/hr TITR STEPHEN 22.226 mls/hr Administration Protocol 1 MCG/KG/HR Cefepime HCl 2 gm in 100 mls @ 200 mls/hr 07/23/19 16:00 07/30/19 03:29 Maxipime/Ns 2 Gm/100 Ml IV 200 mls/hr Q12H STEPHEN Administration Protocol Metronidazole 500 mg in 100 mls @ 100 mls/hr 07/23/19 16:00 07/30/19 06:08 Flagyl 500 Mg/100 Ml IV 100 mls/hr Q8HR STEPHEN Administration Protocol Valproate Sodium 500 mg/ 105 mls @ 100 mls/hr 07/24/19 10:00 07/30/19 09:01 Sodium Chloride IV 100 mls/hr Q12HR STEPHEN Administration Fluconazole 200 mls @ 100 mls/hr 07/26/19 15:00 07/29/19 10:11 Diflucan IV 100 mls/hr Q24HR STEPHEN Administration Protocol Propofol 1,000 mg in 100 mls @ 4.353 mls/hr 07/26/19 23:00 07/30/19 08:59 Diprivan 10 Mg/Ml IV 15 mcg/kg/min TITR STEPHEN 13.059 mls/hr Administration Protocol 5 MCG/KG/MIN Amino Acids/Electrolytes/Dextrose 2,016 mls @ 84 mls/hr 07/29/19 20:00 07/29/19 20:05 Tpn Adult IV 07/30/19 19:59 84 mls/hr DAILY@2000 STEPHEN Administration Protocol Ondansetron HCl 4 mg 07/21/19 22:25 07/22/19 01:07 Zofran IV 4 mg Q8H PRN Administration Nausea And Vomiting
[2019-07-30] MEDS: FLUCONAZOLE 400 MG 200 ML IV SCH (10:12)
--- NOTE | 2019-07-30 10:16 | Progress Note ---
Assessment and Plan s/p ex-lap with partial colon resection (07/23), s/p abdominal colectomy with ileocolostomy (07/26), POD#3; s/p abdominal reexploration, peritoneal lavage, closure of open abdomen, placement of URMILA drain (07/28). Currently stable cardiac status. Cont present cardiac management. Consider ischemic evaluation to r/o ischemic CMP once medically stabilized. DDimer is noted to be elevated - pt too unstable for V/Q scan at this time. The patient has been seen in conjunction with Dr. CONTRERAS Blake who agrees with the assessment and plan of care. - Patient Problems (1) Acute respiratory failure Current Visit: Yes Status: Acute Qualifiers: Respiratory failure complication: hypoxia Qualified Code(s): J96.01 - Acute respiratory failure with hypoxia (2) Ischemic necrosis of large intestine Current Visit: Yes Status: Acute (3) Constipation Current Visit: Yes Status: Acute (4) Intractable vomiting with nausea Current Visit: Yes Status: Acute (5) Sinus tachycardia Current Visit: Yes Status: Resolved (6) Hypotension Current Visit: Yes Status: Resolved (7) Acute renal failure Current Visit: Yes Status: Acute (8) Hyperkalemia Current Visit: Yes Status: Acute (9) Leukocytosis Current Visit: Yes Status: Acute (10) Lactic acidosis Current Visit: Yes Status: Acute (11) Elevated d-dimer Current Visit: Yes Status: Acute (12) Cardiomyopathy Current Visit: Yes Status: Acute Qualifiers: Cardiomyopathy type: unspecified Qualified Code(s): I42.9 - Cardiomyopathy, unspecified Subjective Date of service: 07/30/19 Principal diagnosis: Respiratory Failure Interval history: pt remains intubated, sedated, currently off vasopressor support. in SR HR 70s on telemetry. mother at bedside. Objective Last Vital Signs Temp 99.3 F 07/30/19 08:00 Pulse 61 07/30/19 08:15 Resp 18 07/30/19 08:00 BP 116/33 07/30/19 08:15 Pulse Ox 98 07/30/19 08:15 - Physical Examination General: Other (intubated) Neck: Positive: neck supple, trachea midline Cardiac: Positive: Reg Rate and Rhythm, S1/S2 Lungs: Positive: Decreased Breath Sounds, Oxygen, Ventilated Respirations Neuro: Positive: Other (intubated) Abdomen: Positive: Other Skin: Positive: Other (abdominal surgical site). Negative: Rash Extremities: Absent: edema - Labs and Meds CBC 07/30/19 Range/Units 04:46 WBC 21.2 H (4.5-11.0) K/mm3 RBC 3.36 L (3.65-5.03) M/mm3 Hgb 10.5 L (11.8-15.2) gm/dl Hct 31.4 L (35.5-45.6) % Plt Count 177 (140-440) K/mm3 Comprehensive Metabolic Panel 07/30/19 Range/Units 04:46 Sodium 146 H (137-145) mmol/L Potassium 3.7 (3.6-5.0) mmol/L Chloride 110.8 H (98-107) mmol/L Carbon Dioxide 27 (22-30) mmol/L BUN 22 H (9-20) mg/dL Creatinine 0.7 L (0.8-1.5) mg/dL Glucose 101 H (75-100) mg/dL Calcium 7.9 L (8.4-10.2) mg/dL - Imaging and Cardiology EKG: report reviewed, image reviewed Stress echo: report reviewed, image reviewed Echo: report reviewed ( EF 25-30%, LV mildly dilated, impaired relaxation, trivial pericardial effusion, mod pleural effusion. ) - EKG Sinus rhythms and dysrhythmias: sinus tachycardia
--- NOTE | 2019-07-30 10:54 | Progress Note ---
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 he initially presented with abdominal pain, nausea and vomiting. he was seen and examined in ED. CT Abd showed severe constipation. he was given Fleets enema, admitted. His BMP was WNL. By next day Cr was 2.2 and he had hyperkalemia of 5.3. Repeat hrs later showed worse Cr 2.2 and Potassium went up to 6.0. and he had developed shortness of breath, desaturation so was transferred to ICU. Acute resp failure now intubated, >96 hrs Adult Protective Caseworker following VAP/Aspiration precautions Ischemic Bowel, s/p ex lap and resection Surgeon following POD #8 s/p abdominal colectomy with ileocolostomy (07/26) - POD#4 S/P Open abdominal wound closure 07/28- POD#2 Per surgery based on "Based on NGT appearance, patient has a post-op ileus. Hold any tube feeds for now. Would ideally like to see resumption of bowel function prior to starting tube feeds." Septic shock: intra-abdominal source. s/p ex-lap on 07/23/2019, Per surgery findings of multiple distinct areas of necrosis on transverse colon. Rest of intestines were normal. IV Cefepime, Flagyl, Fluconazole Discontinued femoral Line COLUMBA due to ATN-Resolved Nephrology following Cardiomyopathy -Cardiology following, Ischemic work up when more stable V/Q scan when more stable lactic acidosis Secondary to ischemic Bowel Hyperkalemia-RESOLVED Gave calcium Carbonate Insulin/Dextrose discussed with Dr. West severe constipation resolved, now has diarrhea due to laxatives Severe diarrhea due to laxatives after presenting with constipation-Now resolved Thrombocytopenia Continue to monitor Sinus tachycardia due to dehydration Downs syndrome supportive care full code status Prognosis guarded Mother updated The high probability of a clinically significant, sudden or life threatening deterioration of the [renal, GI,] system(s) required my full and direct at tention, intervention and personal management. The aggregate critical care time was [35] minutes. This time is in addition to time spent performing reported procedures but includes the following: [x] Data Review and interpretation [x] Patient assessment and monitoring of vital signs [x] Documentation [x] Medication orders and management History Interval history: Patient seen and examined, remains intubated, sedated. No acute event noted overnight. Good urinary output Hospitalist Physical - Physical exam Narrative exam: Gen: Ill looking, obese, intubated. Mother at bedside HEENT: Normocephalic, atraumatic, ETT in place. pupile reactive Neck: supple, no JVD Heart: S1 and S2 reg, no murmurs, rubs or gallop Lungs: bilateral crackles, no wheeze Abd: soft, non tender, Surgical dressing in place non distended, Hypoactive BS, Ext: No edema, no clubbing, no cyanosis Neuro: sedated, follows some command, no focal neurological signs, - Constitutional Vitals: Temp Pulse Resp BP Pulse Ox 99.3 F 61 18 116/33 98 07/30/19 08:00 07/30/19 08:15 07/30/19 08:00 07/30/19 08:15 07/30/19 08:15 General appearance: Present: no acute distress, well-nourished Results - Labs CBC & Chem 7: 07/30/19 04:46 07/30/19 04:46 Labs: Laboratory Last Values WBC 21.2 K/mm3 (4.5-11.0) H 07/30/19 04:46 RBC 3.36 M/mm3 (3.65-5.03) L 07/30/19 04:46 Hgb 10.5 gm/dl (11.8-15.2) L 07/30/19 04:46 Hct 31.4 % (35.5-45.6) L 07/30/19 04:46 MCV 94 fl (84-94) 07/30/19 04:46 MCH 31 pg (28-32) 07/30/19 04:46 MCHC 33 % (32-34) 07/30/19 04:46 RDW 15.8 % (13.2-15.2) H 07/30/19 04:46 Plt Count 177 K/mm3 (140-440) 07/30/19 04:46 Lymph % (Auto) 7.2 % (13.4-35.0) L 07/21/19 19:02 [place] % (Auto) [place] Mechanic Helper 07/27/19 05:00 Eos % (Auto) 0.1 % (0.0-4.3) 07/21/19 19:02 Baso % (Auto) 0.3 % (0.0-1.8) 07/21/19 19:02 Lymph # 0.9 K/mm3 (1.2-5.4) L 07/21/19 19:02 [place] # 1.2 K/mm3 (0.0-0.8) H 07/21/19 19:02 Eos # 0.0 K/mm3 (0.0-0.4) 07/21/19 19:02 Baso # 0.0 K/mm3 (0.0-0.1) 07/21/19 19:02 Add Manual Diff Complete 07/27/19 05:00 Total Counted 100 07/27/19 05:00 Seg Neutrophils % 82.8 % (40.0-70.0) H 07/21/19 19:02 Seg Neuts % (Manual) 62.0 % (40.0-70.0) 07/27/19 05:00 Band Neutrophils % 3.0 % 07/27/19 05:00 Lymphocytes % (Manual) 17.0 % (13.4-35.0) 07/27/19 05:00 Reactive Lymphs % (Man) 0 % 07/27/19 05:00 Monocytes % (Manual) 16.0 % (0.0-7.3) H 07/27/19 05:00 Eosinophils % (Manual) 0 % (0.0-4.3) 07/27/19 05:00 Basophils % (Manual) 0 % (0.0-1.8) 07/27/19 05:00 Metamyelocytes % 2.0 % 07/27/19 05:00 Myelocytes % 0 % 07/27/19 05:00 Promyelocytes % 0 % 07/27/19 05:00 Blast Cells % 0 % 07/27/19 05:00 Nucleated RBC % 2.0 % (0.0-0.9) H 07/27/19 05:00 Seg Neutrophils # 10.0 K/mm3 (1.8-7.7) H 07/21/19 19:02 Seg Neutrophils # Man 8.1 K/mm3 (1.8-7.7) H 07/27/19 05:00 Band Neutrophils # 0.4 K/mm3 07/27/19 05:00 Lymphocytes # (Manual) 2.2 K/mm3 (1.2-5.4) 07/27/19 05:00 Abs React Lymphs (Man) 0.0 K/mm3 07/27/19 05:00 Monocytes # (Manual) 2.1 K/mm3 (0.0-0.8) H 07/27/19 05:00 Eosinophils # (Manual) 0.0 K/mm3 (0.0-0.4) 07/27/19 05:00 Basophils # (Manual) 0.0 K/mm3 (0.0-0.1) 07/27/19 05:00 Metamyelocytes # 0.3 K/mm3 07/27/19 05:00 Myelocytes # 0.0 K/mm3 07/27/19 05:00 Promyelocytes # 0.0 K/mm3 07/27/19 05:00 Blast Cells # 0.0 K/mm3 07/27/19 05:00 WBC Morphology Not Reportable 07/27/19 05:00 Hypersegmented Neuts Not Reportable 07/27/19 05:00 Hyposegmented Neuts Not Reportable 07/27/19 05:00 Hypogranular Neuts Not Reportable 07/27/19 05:00 Smudge Cells Not Reportable 07/27/19 05:00 Toxic Granulation Not Reportable 07/27/19 05:00 Toxic Vacuolation Not Reportable 07/27/19 05:00 Dohle Bodies Not Reportable 07/27/19 05:00 Pelger-Huet Anomaly Not Reportable 07/27/19 05:00 Alea Rods Not Reportable 07/27/19 05:00 Platelet Estimate Consistent w auto 07/27/19 05:00 Clumped Platelets Not Reportable 07/27/19 05:00 Plt Clumps, EDTA Not Reportable 07/27/19 05:00 Large Platelets Not Reportable 07/27/19 05:00 Giant Platelets Not Reportable 07/27/19 05:00 Platelet Satelliting Not Reportable 07/27/19 05:00 Plt Morphology Comment Not Reportable 07/27/19 05:00 RBC Morphology Not Reportable 07/27/19 05:00 Dimorphic RBCs Not Reportable 07/27/19 05:00 Polychromasia Rare 07/27/19 05:00 Hypochromasia Not Reportable 07/27/19 05:00 Poikilocytosis Not Reportable 07/27/19 05:00 Anisocytosis Few 07/27/19 05:00 Microcytosis Not Reportable 07/27/19 05:00 Macrocytosis Not Reportable 07/27/19 05:00 Spherocytes Not Reportable 07/27/19 05:00 Pappenheimer Bodies Not Reportable 07/27/19 05:00 Sickle Cells Not Reportable 07/27/19 05:00 Target Cells Not Reportable 07/27/19 05:00 Tear Drop Cells Not Reportable 07/27/19 05:00 Ovalocytes Few 07/27/19 05:00 Helmet Cells Not Reportable 07/27/19 05:00 [place] Bodies Not Reportable 07/27/19 05:00 [place] Rings Not Reportable 07/27/19 05:00 Kaylyn Cells Not Reportable 07/27/19 05:00 Bite Cells Not Reportable 07/27/19 05:00 Crenated Cell Not Reportable 07/27/19 05:00 Elliptocytes Not Reportable 07/27/19 05:00 Acanthocytes (Spur) Not Reportable 07/27/19 05:00 Rouleaux Not Reportable 07/27/19 05:00 Hemoglobin C Crystals Not Reportable 07/27/19 05:00 Schistocytes Not Reportable 07/27/19 05:00 Malaria parasites Not Reportable 07/27/19 05:00 Emanuel Bodies Not Reportable 07/27/19 05:00 Hem Pathologist Commnt No 07/27/19 05:00 D-Dimer 886.89 ng/mlDDU (0-234) H 07/22/19 21:45 Heparin Anti-Xa, Unfract Negative (Negative) 07/24/19 09:18 POC ABG pH 7.344 (7.35-7.45) L 07/30/19 05:23 ABG pH 7.358 pH Units (7.350-7.450) 07/27/19 06:10 POC ABG pCO2 48.8 (35-45) H 07/30/19 05:23 ABG pCO2 44.0 mm Hg 07/27/19 06:10 POC ABG pO2 77 (80-105) L 07/30/19 05:23 ABG pO2 84.6 mm Hg (80.0-90.0) 07/27/19 06:10 POC ABG HCO3 26.6 (22-26 mml/L) 07/30/19 05:23 ABG HCO3 24.2 mmol/L (20.0-26.0) 07/27/19 06:10 POC ABG Total CO2 28 (23-27mmol/L) 07/30/19 05:23 POC ABG O2 Sat 94 07/30/19 05:23 ABG O2 Saturation 96.3 % (95.0-99.0) 07/27/19 06:10 ABG O2 Content 16.7 (0.0-44) 07/27/19 06:10 POC ABG Base Excess 1 ((-2) - (+3)mmol/L) 07/30/19 05:23 ABG Base Excess -1.4 mmol/L (-2.0-3.0) 07/27/19 06:10 ABG Hemoglobin 12.6 gm/dl (14.0-18.0) L 07/27/19 06:10 ABG Carboxyhemoglobin 1.7 % (0.0-5.0) 07/27/19 06:10 ABG Methemoglobin 0.6 % (0.0-1.5) 07/27/19 06:10 Oxyhemoglobin 94.2 % (95.0-99.0) L 07/27/19 06:10 FiO2 40 % 07/30/19 05:23 Sodium 146 mmol/L (137-145) H 07/30/19 04:46 Potassium 3.7 mmol/L (3.6-5.0) 07/30/19 04:46 Chloride 110.8 mmol/L (98-107) H 07/30/19 04:46 Carbon Dioxide 27 mmol/L (22-30) 07/30/19 04:46 Anion Gap 12 mmol/L 07/30/19 04:46 BUN 22 mg/dL (9-20) H 07/30/19 04:46 Creatinine 0.7 mg/dL (0.8-1.5) L 07/30/19 04:46 Estimated GFR > 60 ml/min 07/30/19 04:46 BUN/Creatinine Ratio 31 % 07/30/19 04:46 Glucose 101 mg/dL (75-100) H 07/30/19 04:46 POC Glucose 103 (70-105) 07/30/19 05:32 Lactic Acid 1.10 mmol/L (0.7-2.0) 07/25/19 09:16 Calcium 7.9 mg/dL (8.4-10.2) L 07/30/19 04:46 Phosphorus 4.60 mg/dL (2.5-4.5) H 07/30/19 04:46 Magnesium 2.20 mg/dL (1.7-2.3) 07/30/19 04:46 Total Bilirubin 0.80 mg/dL (0.1-1.2) 07/28/19 04:12 Direct Bilirubin 0.2 mg/dL (0-0.2) 07/21/19 19:02 Indirect Bilirubin 0.4 mg/dL 07/21/19 19:02 AST 20 units/L (5-40) 07/28/19 04:12 ALT 19 units/L (7-56) 07/28/19 04:12 Alkaline Phosphatase 43 units/L (35-129) 07/28/19 04:12 Ammonia 39.0 umol/L (25-60) 07/23/19 02:50 Troponin T < 0.010 ng/mL (0.00-0.029) 07/22/19 15:33 NT-Pro-B Natriuret Pep 5407 pg/mL (0-450) H 07/22/19 21:45 Total Protein 4.2 g/dL (6.3-8.2) L D 07/28/19 04:12 Albumin 2.0 g/dL (3.9-5) L 07/28/19 04:12 Albumin/Globulin Ratio 0.9 % 07/28/19 04:12 Triglycerides 136 mg/dL (2-149) 07/30/19 04:46 Lipase 10 units/L (13-60) L 07/21/19 19:02 TSH 0.888 mlU/mL (0.270-4.200) 07/23/19 13:06 Free T4 1.04 ng/dL (0.76-1.46) 07/23/19 13:06 Urine Color Emy (Yellow) 07/21/19 21:36 Urine Turbidity Clear (Clear) 07/21/19 21:36 Urine pH 5.0 (5.0-7.0) 07/21/19 21:36 Ur Specific [place] 1.024 (1.003-1.030) 07/21/19 21:36 Urine Protein <15 mg/dl mg/dL (Negative) 07/21/19 21:36 Urine Glucose (UA) Neg mg/dL (Negative) 07/21/19 21:36 Urine Ketones Neg mg/dL (Negative) 07/21/19 21:36 Urine Blood Neg (Negative) 07/21/19 21:36 Urine Nitrite Neg (Negative) 07/21/19 21:36 Urine Bilirubin Sm (Negative) 07/21/19 21:36 Urine Ictotest Negative (Negative) 07/21/19 21:36 Urine Urobilinogen 4.0 mg/dL (<2.0) 07/21/19 21:36 Ur Leukocyte Esterase Neg (Negative) 07/21/19 21:36 Urine WBC (Auto) 1.0 /HPF (0.0-6.0) 07/21/19 21:36 Urine RBC (Auto) 1.0 /HPF (0.0-6.0) 07/21/19 21:36 U Epithel Cells (Auto) < 1.0 /HPF (0-13.0) 07/21/19 21:36 Urine Mucus Few /HPF 07/21/19 21:36 Heparin-induced Plt Ab Negative (Negative) 07/24/19 09:18 UF Heparin High Dose 0 % Release 07/24/19 09:18 GIULIANA UFH Low Dose 0.1 1 % Release 07/24/19 09:18 GIULIANA UFH Low Dose 0.5 0 % Release 07/24/19 09:18 Hepatitis A IgM Ab Non-reactive (NonReactive) 07/23/19 13:06 Hep Bs Antigen Non-reactive (Negative) 07/23/19 13:06 Hep B Core IgM Ab Non-reactive (NonReactive) 07/23/19 13:06 Hepatitis C Antibody Non-reactive (NonReactive) 07/23/19 13:06 Blood Type A POSITIVE 07/28/19 04:12 Antibody Screen Negative 07/28/19 04:12 Active Medications - Current Medications Current Medications: Generic Name Dose Route Start Last Admin Trade Name Freq PRN Reason Stop Dose Admin Acetaminophen 650 mg 07/23/19 02:48 Tylenol PA Q4H PRN Fever >100.5 Enoxaparin Sodium 40 mg 07/27/19 10:00 07/30/19 09:00 Lovenox SUB-Q 40 mg DAILY STEPHEN Administration Famotidine 20 mg 07/24/19 10:00 07/30/19 09:00 Pepcid IV 20 mg BID STEPHEN Administration Furosemide 20 mg 07/29/19 18:00 07/30/19 06:08 Lasix IV 20 mg 0600,1800 STEPHEN Administration Phenylephrine HCl 100 mg/ 100 mls @ 3 mls/hr 07/23/19 02:45 07/24/19 21:31 Sodium Chloride IV 0 mcg/min TITR STEPHEN 0 mls/hr Titration Protocol 50 MCG/MIN Vasopressin 20 unit/ Sodium 101 mls @ 9.09 mls/hr 07/23/19 10:00 07/25/19 09:44 Chloride IV Infused TITR STEPHEN Titration Protocol 0.03 UNITS/MIN Norepinephrine 8 mg/ Sodium 250 mls @ 3.75 mls/hr 07/23/19 12:00 07/23/19 13:08 Chloride IV 0 mcg/min TITR STEPHEN 0 mls/hr Titration Protocol 2 MCG/MIN Fentanyl Citrate 2,000 mcg in 100 mls @ 5.557 mls/hr 07/23/19 12:00 07/30/19 06:03 Fentanyl Drip Premix IV 4 mcg/kg/hr TITR STEPHEN 22.226 mls/hr Administration Protocol 1 MCG/KG/HR Cefepime HCl 2 gm in 100 mls @ 200 mls/hr 07/23/19 16:00 07/30/19 03:29 Maxipime/Ns 2 Gm/100 Ml IV 200 mls/hr Q12H STEPHEN Administration Protocol Metronidazole 500 mg in 100 mls @ 100 mls/hr 07/23/19 16:00 07/30/19 06:08 Flagyl 500 Mg/100 Ml IV 100 mls/hr Q8HR STEPHEN Administration Protocol Valproate Sodium 500 mg/ 105 mls @ 100 mls/hr 07/24/19 10:00 07/30/19 09:01 Sodium Chloride IV 100 mls/hr Q12HR STEPHEN Administration Fluconazole 200 mls @ 100 mls/hr 07/26/19 15:00 07/30/19 10:12 Diflucan IV 100 mls/hr Q24HR STEPHEN Administration Protocol Propofol 1,000 mg in 100 mls @ 4.353 mls/hr 07/26/19 23:00 07/30/19 08:59 Diprivan 10 Mg/Ml IV 15 mcg/kg/min TITR STEPHEN 13.059 mls/hr Administration Protocol 5 MCG/KG/MIN Amino Acids/Electrolytes/Dextrose 2,016 mls @ 84 mls/hr 07/29/19 20:00 07/29/19 20:05 Tpn Adult IV 07/30/19 19:59 84 mls/hr DAILY@2000 STEPHEN Administration Protocol Ondansetron HCl 4 mg 07/21/19 22:25 07/22/19 01:07 Zofran IV 4 mg Q8H PRN Administration Nausea And Vomiting Nutrition/Malnutrition Assess - Dietary Evaluation Nutrition/Malnutrition Findings: Nutrition Notes Start: 07/23/19 10:09 Freq: Status: Active Protocol: Document 07/29/19 15:42 RM (Rec: 07/29/19 15:46 RM [id number]) Nutrition Notes Initial or Follow up Reassessment Current Diagnosis Acute Kidney Injury Other Pertinent Diagnosis Necrosis of transverse colon, down syndrome Current Diet NPO Labs/Tests Na 149 P 3.9 Mg 1.6 Pertinent Medications Propofol at 13 ml/hr (343 kcal /day), Vaospressin Height 5 ft 7 in Weight 147 kg [place] Body Weight (kg) 67.27 BMI 50.7 Subjective/Other Information PPN day 3. Burn Absent Trauma Absent Minimum of two criteria No physical signs of malnutrition #1 Nutrition Diagnosis Inadequate oral intake Diagnosis Progress(for reassessment Continues documentation) Is patient on ventilator? Yes Is Patient Ambulatory and/or Out of Bed No REE-([facility]-confined to bed) 2920.608 Kcal/Kg value to use for calculation 14 Approximate Energy Requirements Using 8 kcal/Kg Calculation Used for Recommendations Kcal/kg Additional Notes Pro needs 2g/kg IBW: 135g/day Fluid needs 1ml/kcal Nutrition Intervention Change Diet Order: PPN Nutrition Support: Continue PPN at 84 ml/hr: 50 mEq Na, 3 mmol P, 8 mEq Mg Kcal 825 Protein (gm) 100 Carbohydrates (gm) 125 Fat (gm) 0 Fluid (mL) 2,016 Fiber (gm) 0 Goal #1 Meet kcal/PRO as best as possible with PPN Anticipated Discharge Needs: Unable to identify at this time Follow-Up By: 07/30/19 Additional Comments Follow for labs in AM: BMP, Mg , Lizbeths
--- NOTE | 2019-07-30 10:59 | Progress Note ---
Assessment and Plan 19 y/o male with acute respiratory failure s/p exploratory lap x 2 now on TPN, continuous NG suction and continued sedation. 1. Long discussion with mother at bedside. Will have a discussion with surgery in regards to further surgical plans if they think its needed. Would like to attempt extubation in the next 24 hours but if safety is an issue (pulling out NG tube, grabbing at URMILA's etc.) maybe safest to place trach and wean from there. Discussed all of this mother at bedside. 2. Spoke to renal on rounds, will remove HD catheter. 3. Please ask [facility] team to exhange midline for PICC after HD catheter is removed. 4. Continue sedation for now. 5. Guarded overall prognosis. Follow up any new surgical recs today. CCT 31 minutes. Subjective Date of service: 07/30/19 Principal diagnosis: Respiratory Failure Interval history: No acute events overnight. On minimal vent settings but very wild even on mild sedation with mild stimulation. Mother at bedside. Objective Vital Signs - 12hr 07/29/19 07/29/19 07/30/19 23:00 23:30 00:00 Temperature 99.6 F Pulse Rate 67 75 70 Pulse Rate [ From Monitor] Respiratory 19 18 18 Rate Blood Pressure 114/33 124/37 115/36 O2 Sat by Pulse 96 96 96 Oximetry 07/30/19 07/30/19 07/30/19 00:30 01:00 01:30 Temperature Pulse Rate 73 61 66 Pulse Rate [ From Monitor] Respiratory 18 18 18 Rate Blood Pressure 110/34 111/31 116/31 O2 Sat by Pulse 97 96 96 Oximetry 07/30/19 07/30/19 07/30/19 02:00 02:06 02:30 Temperature Pulse Rate 65 68 64 Pulse Rate [ From Monitor] Respiratory 18 18 Rate Blood Pressure 113/30 118/33 110/29 O2 Sat by Pulse 97 98 97 Oximetry 07/30/19 07/30/19 07/30/19 03:00 03:30 04:00 Temperature 100.0 F H Pulse Rate 75 84 67 Pulse Rate [ From Monitor] Respiratory 18 20 18 Rate Blood Pressure 115/35 122/39 111/33 O2 Sat by Pulse 96 96 96 Oximetry 07/30/19 07/30/19 07/30/19 04:30 05:00 05:03 Temperature Pulse Rate 67 68 68 Pulse Rate [ From Monitor] Respiratory 17 18 Rate Blood Pressure 118/22 115/36 115/36 O2 Sat by Pulse 97 96 96 Oximetry 07/30/19 07/30/19 07/30/19 05:30 06:00 06:30 Temperature Pulse Rate 68 60 Pulse Rate [ From Monitor] Respiratory 18 18 18 Rate Blood Pressure 118/37 99/36 120/36 O2 Sat by Pulse 97 96 98 Oximetry 07/30/19 07/30/19 07/30/19 07:00 07:30 08:00 Temperature 99.3 F Pulse Rate 58 L 56 L 60 Pulse Rate [ 60 From Monitor] Respiratory 18 18 18 Rate Blood Pressure 114/30 116/29 123/34 O2 Sat by Pulse 98 99 99 Oximetry 07/30/19 08:15 Temperature Pulse Rate 61 Pulse Rate [ From Monitor] Respiratory Rate Blood Pressure 116/33 O2 Sat by Pulse 98 Oximetry Constitutional: no acute distress, other (obese, sedated, critically ill on ventilator) Eyes: non-icteric ENT: oropharynx moist Neck: supple Effort: normal Ascultation: Bilateral: diminished breath sounds (due to obesity) Cardiovascular: regular rate and rhythm Gastrointestinal: normoactive bowel sounds, soft, other (morbidly obese abd) Integumentary: normal Extremities: no cyanosis, no edema, pink and warm Neurologic: normal mental status, non-focal exam, pupils equal and round, other (on vent) Psychiatric: mood appropriate, affect normal CBC and BMP: 07/30/19 04:46 07/30/19 04:46 ABG, PT/INR, D-dimer: ABG POC ABG pH 7.344 (7.35-7.45) L 07/30/19 05:23 ABG pH 7.358 pH Units (7.350-7.450) 07/27/19 06:10 POC ABG pCO2 48.8 (35-45) H 07/30/19 05:23 ABG pCO2 44.0 mm Hg 07/27/19 06:10 POC ABG pO2 77 (80-105) L 07/30/19 05:23 ABG pO2 84.6 mm Hg (80.0-90.0) 07/27/19 06:10 POC ABG HCO3 26.6 (22-26 mml/L) 07/30/19 05:23 POC ABG Total CO2 28 (23-27mmol/L) 07/30/19 05:23 POC ABG O2 Sat 94 07/30/19 05:23 ABG O2 Saturation 96.3 % (95.0-99.0) 07/27/19 06:10 PT/INR, D-dimer D-Dimer 886.89 ng/mlDDU (0-234) H 07/22/19 21:45 Abnormal lab findings: Abnormal Labs 07/21/19 07/21/19 07/22/19 19:02 19:02 10:50 WBC 12.1 H 13.7 H RBC 5.56 H Hgb 17.1 H Hct 52.9 H D MCV 95 H 95 H RDW Plt Count 130 L 137 L Lymph % (Auto) 7.2 L Cotton % (Auto) 9.6 H Lymph # 0.9 L Cotton # 1.2 H Seg Neutrophils % 82.8 H Lymphocytes % (Manual) Monocytes % (Manual) Nucleated RBC % Seg Neutrophils # 10.0 H Seg Neutrophils # Man Lymphocytes # (Manual) Monocytes # (Manual) D-Dimer POC ABG pH ABG pH POC ABG pCO2 POC ABG pO2 ABG pO2 ABG O2 Saturation ABG Hemoglobin Oxyhemoglobin Sodium 136 L Potassium Chloride 95.9 L Carbon Dioxide BUN Creatinine Glucose 163 H POC Glucose Lactic Acid Calcium Phosphorus Magnesium Total Bilirubin AST NT-Pro-B Natriuret Pep Total Protein Albumin Lipase 10 L 07/22/19 07/22/19 07/22/19 10:50 15:33 15:33 WBC 13.1 H RBC 5.10 H Hgb 15.9 H Hct 49.0 H MCV 96 H RDW Plt Count 127 L Lymph % (Auto) Cotton % (Auto) Lymph # Cotton # Seg Neutrophils % Lymphocytes % (Manual) Monocytes % (Manual) Nucleated RBC % Seg Neutrophils # Seg Neutrophils # Man Lymphocytes # (Manual) Monocytes # (Manual) D-Dimer POC ABG pH ABG pH POC ABG pCO2 POC ABG pO2 ABG pO2 ABG O2 Saturation ABG Hemoglobin Oxyhemoglobin Sodium 136 L Potassium 5.3 H D 6.0 H Chloride 96.7 L Carbon Dioxide 17 L BUN 22 H 29 H Creatinine 2.0 H D 2.2 H Glucose 129 H 121 H POC Glucose Lactic Acid Calcium 8.2 L Phosphorus 4.70 H Magnesium 3.10 H Total Bilirubin AST NT-Pro-B Natriuret Pep Total Protein Albumin Lipase 07/22/19 07/22/19 07/22/19 18:19 18:42 21:45 WBC RBC Hgb Hct MCV RDW Plt Count Lymph % (Auto) Cotton % (Auto) Lymph # Cotton # Seg Neutrophils % Lymphocytes % (Manual) Monocytes % (Manual) Nucleated RBC % Seg Neutrophils # Seg Neutrophils # Man Lymphocytes # (Manual) Monocytes # (Manual) D-Dimer 886.89 H POC ABG pH 7.197 L ABG pH POC ABG pCO2 45.2 H POC ABG pO2 ABG pO2 ABG O2 Saturation ABG Hemoglobin Oxyhemoglobin Sodium Potassium Chloride Carbon Dioxide BUN Creatinine Glucose POC Glucose 107 H Lactic Acid Calcium Phosphorus Magnesium Total Bilirubin AST NT-Pro-B Natriuret Pep Total Protein Albumin Lipase 07/22/19 07/22/19 07/22/19 21:45 21:45 21:45 WBC RBC Hgb Hct MCV RDW Plt Count Lymph % (Auto) Cotton % (Auto) Lymph # Cotton # Seg Neutrophils % Lymphocytes % (Manual) Monocytes % (Manual) Nucleated RBC % Seg Neutrophils # Seg Neutrophils # Man Lymphocytes # (Manual) Monocytes # (Manual) D-Dimer POC ABG pH ABG pH POC ABG pCO2 POC ABG pO2 ABG pO2 ABG O2 Saturation ABG Hemoglobin Oxyhemoglobin Sodium 136 L Potassium 5.6 H Chloride Carbon Dioxide 20 L BUN 38 H Creatinine 2.6 H Glucose 63 L POC Glucose Lactic Acid 3.10 H* Calcium 8.2 L Phosphorus Magnesium Total Bilirubin AST NT-Pro-B Natriuret Pep 5407 H Total Protein Albumin Lipase 07/23/19 07/23/19 07/23/19 02:11 02:50 02:50 WBC 15.0 H RBC Hgb Hct MCV 95 H RDW Plt Count 118 L Lymph % (Auto) Cotton % (Auto) Lymph # Cotton # Seg Neutrophils % Lymphocytes % (Manual) 9.0 L Monocytes % (Manual) 17.0 H Nucleated RBC % Seg Neutrophils # Seg Neutrophils # Man Lymphocytes # (Manual) Monocytes # (Manual) 2.6 H D-Dimer POC ABG pH ABG pH POC ABG pCO2 POC ABG pO2 ABG pO2 ABG O2 Saturation ABG Hemoglobin Oxyhemoglobin Sodium Potassium Chloride Carbon Dioxide BUN Creatinine Glucose POC Glucose 69 L Lactic Acid 3.30 H* Calcium Phosphorus Magnesium Total Bilirubin AST NT-Pro-B Natriuret Pep Total Protein Albumin Lipase 07/23/19 07/23/19 07/23/19 02:50 03:09 04:30 WBC RBC Hgb Hct MCV RDW Plt Count Lymph % (Auto) Cotton % (Auto) Lymph # Cotton # Seg Neutrophils % Lymphocytes % (Manual) Monocytes % (Manual) Nucleated RBC % Seg Neutrophils # Seg Neutrophils # Man Lymphocytes # (Manual) Monocytes # (Manual) D-Dimer POC ABG pH 7.296 L ABG pH POC ABG pCO2 POC ABG pO2 66 L ABG pO2 ABG O2 Saturation ABG Hemoglobin Oxyhemoglobin Sodium 134 L Potassium 7.5 H* D Chloride Carbon Dioxide 21 L BUN 47 H Creatinine 2.7 H Glucose POC Glucose Lactic Acid 3.50 H* Calcium 7.6 L Phosphorus Magnesium 2.90 H Total Bilirubin AST 60 H NT-Pro-B Natriuret Pep Total Protein 5.5 L D Albumin 2.5 L Lipase 07/23/19 07/23/19 07/23/19 07:30 09:03 09:03 WBC RBC Hgb Hct MCV RDW Plt Count Lymph % (Auto) Cotton % (Auto) Lymph # Cotton # Seg Neutrophils % Lymphocytes % (Manual) Monocytes % (Manual) Nucleated RBC % Seg Neutrophils # Seg Neutrophils # Man Lymphocytes # (Manual) Monocytes # (Manual) D-Dimer POC ABG pH ABG pH POC ABG pCO2 POC ABG pO2 ABG pO2 ABG O2 Saturation ABG Hemoglobin Oxyhemoglobin Sodium 136 L Potassium 6.6 H* 7.1 H* Chloride Carbon Dioxide 20 L BUN 50 H 49 H Creatinine 2.6 H 2.4 H Glucose 67 L POC Glucose Lactic Acid 4.10 H* Calcium 7.6 L 7.7 L Phosphorus Magnesium Total Bilirubin AST NT-Pro-B Natriuret Pep Total Protein Albumin Lipase 07/23/19 07/23/19 07/23/19 10:52 13:13 14:48 WBC RBC Hgb Hct MCV RDW Plt Count Lymph % (Auto) Cotton % (Auto) Lymph # Cotton # Seg Neutrophils % Lymphocytes % (Manual) Monocytes % (Manual) Nucleated RBC % Seg Neutrophils # Seg Neutrophils # Man Lymphocytes # (Manual) Monocytes # (Manual) D-Dimer POC ABG pH 7.280 L ABG pH POC ABG pCO2 48.7 H POC ABG pO2 ABG pO2 ABG O2 Saturation ABG Hemoglobin Oxyhemoglobin Sodium Potassium Chloride Carbon Dioxide BUN Creatinine Glucose POC Glucose 123 H Lactic Acid 4.10 H* Calcium Phosphorus Magnesium Total Bilirubin AST NT-Pro-B Natriuret Pep Total Protein Albumin Lipase 07/23/19 07/23/19 07/23/19 15:56 17:35 Unknown WBC RBC Hgb Hct MCV RDW Plt Count Lymph % (Auto) Cotton % (Auto) Lymph # Cotton # Seg Neutrophils % Lymphocytes % (Manual) Monocytes % (Manual) Nucleated RBC % Seg Neutrophils # Seg Neutrophils # Man Lymphocytes # (Manual) Monocytes # (Manual) D-Dimer POC ABG pH ABG pH POC ABG pCO2 POC ABG pO2 ABG pO2 ABG O2 Saturation ABG Hemoglobin Oxyhemoglobin Sodium Potassium Chloride Carbon Dioxide BUN Creatinine Glucose POC Glucose Lactic Acid 3.00 H* 4.10 H* 4.90 H* Calcium Phosphorus Magnesium Total Bilirubin AST NT-Pro-B Natriuret Pep Total Protein Albumin Lipase 07/23/19 07/24/19 07/24/19 Unknown 00:05 00:40 WBC RBC Hgb Hct MCV RDW Plt Count Lymph % (Auto) Cotton % (Auto) Lymph # Cotton # Seg Neutrophils % Lymphocytes % (Manual) Monocytes % (Manual) Nucleated RBC % Seg Neutrophils # Seg Neutrophils # Man Lymphocytes # (Manual) Monocytes # (Manual) D-Dimer POC ABG pH ABG pH POC ABG pCO2 POC ABG pO2 ABG pO2 151.3 H ABG O2 Saturation ABG Hemoglobin Oxyhemoglobin Sodium Potassium 5.6 H D Chloride Carbon Dioxide BUN 29 H Creatinine Glucose 128 H POC Glucose 118 H Lactic Acid Calcium 7.4 L Phosphorus Magnesium Total Bilirubin AST NT-Pro-B Natriuret Pep Total Protein Albumin Lipase 07/24/19 07/24/19 07/24/19 04:00 05:37 05:37 WBC RBC Hgb Hct MCV RDW Plt Count 89 L Lymph % (Auto) Cotton % (Auto) Lymph # Cotton # Seg Neutrophils % Lymphocytes % (Manual) 5.0 L Monocytes % (Manual) Nucleated RBC % Seg Neutrophils # Seg Neutrophils # Man Lymphocytes # (Manual) 0.5 L Monocytes # (Manual) D-Dimer POC ABG pH ABG pH POC ABG pCO2 POC ABG pO2 ABG pO2 ABG O2 Saturation ABG Hemoglobin Oxyhemoglobin Sodium Potassium Chloride Carbon Dioxide BUN 29 H Creatinine Glucose 120 H POC Glucose 123 H Lactic Acid Calcium 7.4 L Phosphorus 2.30 L D Magnesium Total Bilirubin 1.40 H AST 107 H NT-Pro-B Natriuret Pep Total Protein 5.3 L Albumin 2.5 L Lipase 07/24/19 07/24/19 07/24/19 05:37 10:18 18:44 WBC RBC Hgb Hct MCV RDW Plt Count Lymph % (Auto) Cotton % (Auto) Lymph # Cotton # Seg Neutrophils % Lymphocytes % (Manual) Monocytes % (Manual) Nucleated RBC % Seg Neutrophils # Seg Neutrophils # Man Lymphocytes # (Manual) Monocytes # (Manual) D-Dimer POC ABG pH 7.464 H ABG pH POC ABG pCO2 POC ABG pO2 125 H ABG pO2 ABG O2 Saturation ABG Hemoglobin Oxyhemoglobin Sodium Potassium Chloride Carbon Dioxide BUN Creatinine Glucose POC Glucose 130 H Lactic Acid 3.90 H* Calcium Phosphorus Magnesium Total Bilirubin AST NT-Pro-B Natriuret Pep Total Protein Albumin Lipase 07/24/19 07/25/19 07/25/19 18:52 04:45 04:45 WBC RBC Hgb Hct MCV RDW Plt Count 91 L Lymph % (Auto) Cotton % (Auto) Lymph # Cotton # Seg Neutrophils % Lymphocytes % (Manual) Monocytes % (Manual) Nucleated RBC % Seg Neutrophils # Seg Neutrophils # Man Lymphocytes # (Manual) Monocytes # (Manual) D-Dimer POC ABG pH ABG pH POC ABG pCO2 POC ABG pO2 ABG pO2 ABG O2 Saturation ABG Hemoglobin Oxyhemoglobin Sodium Potassium Chloride Carbon Dioxide BUN 24 H Creatinine Glucose POC Glucose 107 H Lactic Acid Calcium 7.9 L Phosphorus 2.20 L Magnesium Total Bilirubin AST NT-Pro-B Natriuret Pep Total Protein Albumin Lipase 07/25/19 07/26/19 07/26/19 05:32 02:20 05:00 WBC RBC Hgb Hct MCV RDW Plt Count Lymph % (Auto) Cotton % (Auto) Lymph # Cotton # Seg Neutrophils % Lymphocytes % (Manual) Monocytes % (Manual) Nucleated RBC % Seg Neutrophils # Seg Neutrophils # Man Lymphocytes # (Manual) Monocytes # (Manual) D-Dimer POC ABG pH ABG pH POC ABG pCO2 POC ABG pO2 ABG pO2 70.6 L ABG O2 Saturation 94.7 L ABG Hemoglobin 12.0 L Oxyhemoglobin 92.8 L Sodium 148 H Potassium Chloride 112.1 H Carbon Dioxide BUN Creatinine 0.6 L Glucose 71 L POC Glucose 62 L Lactic Acid Calcium 8.3 L Phosphorus Magnesium Total Bilirubin AST NT-Pro-B Natriuret Pep Total Protein Albumin Lipase 07/26/19 07/26/19 07/27/19 05:45 05:47 05:00 WBC 13.1 H RBC Hgb Hct MCV RDW 15.8 H Plt Count 113 L Lymph % (Auto) Cotton % (Auto) Lymph # Cotton # Seg Neutrophils % Lymphocytes % (Manual) Monocytes % (Manual) 16.0 H Nucleated RBC % 2.0 H Seg Neutrophils # Seg Neutrophils # Man 8.1 H Lymphocytes # (Manual) Monocytes # (Manual) 2.1 H D-Dimer POC ABG pH ABG pH 7.309 L POC ABG pCO2 POC ABG pO2 ABG pO2 73.3 L ABG O2 Saturation 93.9 L ABG Hemoglobin 12.4 L Oxyhemoglobin 92.1 L Sodium Potassium Chloride Carbon Dioxide BUN Creatinine Glucose POC Glucose 68 L Lactic Acid Calcium Phosphorus Magnesium Total Bilirubin AST NT-Pro-B Natriuret Pep Total Protein Albumin Lipase 07/27/19 07/27/19 07/27/19 05:00 06:10 09:49 WBC RBC Hgb Hct MCV RDW Plt Count Lymph % (Auto) Cotton % (Auto) Lymph # Cotton # Seg Neutrophils % Lymphocytes % (Manual) Monocytes % (Manual) Nucleated RBC % Seg Neutrophils # Seg Neutrophils # Man Lymphocytes # (Manual) Monocytes # (Manual) D-Dimer POC ABG pH ABG pH POC ABG pCO2 POC ABG pO2 ABG pO2 ABG O2 Saturation ABG Hemoglobin 12.6 L Oxyhemoglobin 94.2 L Sodium 149 H Potassium Chloride 114.6 H Carbon Dioxide BUN Creatinine Glucose POC Glucose 110 H Lactic Acid Calcium 7.9 L Phosphorus Magnesium Total Bilirubin AST NT-Pro-B Natriuret Pep Total Protein Albumin Lipase 07/28/19 07/28/19 07/29/19 04:12 04:12 05:15 WBC 15.3 H RBC Hgb 11.5 L Hct 34.4 L MCV RDW 15.9 H Plt Count Lymph % (Auto) Cotton % (Auto) Lymph # Cotton # Seg Neutrophils % Lymphocytes % (Manual) Monocytes % (Manual) Nucleated RBC % Seg Neutrophils # Seg Neutrophils # Man Lymphocytes # (Manual) Monocytes # (Manual) D-Dimer POC ABG pH ABG pH POC ABG pCO2 POC ABG pO2 ABG pO2 ABG O2 Saturation ABG Hemoglobin Oxyhemoglobin Sodium 149 H 149 H Potassium Chloride 113.3 H 113.9 H Carbon Dioxide BUN Creatinine 0.7 L 0.6 L Glucose 109 H POC Glucose Lactic Acid Calcium 8.0 L 8.0 L Phosphorus Magnesium 1.60 L Total Bilirubin AST NT-Pro-B Natriuret Pep Total Protein 4.2 L D Albumin 2.0 L Lipase 07/29/19 07/29/19 07/29/19 05:34 05:34 17:59 WBC RBC Hgb Hct MCV RDW Plt Count Lymph % (Auto) Cotton % (Auto) Lymph # Cotton # Seg Neutrophils % Lymphocytes % (Manual) Monocytes % (Manual) Nucleated RBC % Seg Neutrophils # Seg Neutrophils # Man Lymphocytes # (Manual) Monocytes # (Manual) D-Dimer POC ABG pH ABG pH POC ABG pCO2 46.9 H POC ABG pO2 65 L ABG pO2 ABG O2 Saturation ABG Hemoglobin Oxyhemoglobin Sodium Potassium Chloride Carbon Dioxide BUN Creatinine Glucose POC Glucose 107 H 110 H Lactic Acid Calcium Phosphorus Magnesium Total Bilirubin AST NT-Pro-B Natriuret Pep Total Protein Albumin Lipase 07/30/19 07/30/19 07/30/19 04:46 04:46 05:23 WBC 21.2 H RBC 3.36 L Hgb 10.5 L Hct 31.4 L MCV RDW 15.8 H Plt Count Lymph % (Auto) Cotton % (Auto) Lymph # Cotton # Seg Neutrophils % Lymphocytes % (Manual) Monocytes % (Manual) Nucleated RBC % Seg Neutrophils # Seg Neutrophils # Man Lymphocytes # (Manual) Monocytes # (Manual) D-Dimer POC ABG pH 7.344 L ABG pH POC ABG pCO2 48.8 H POC ABG pO2 77 L ABG pO2 ABG O2 Saturation ABG Hemoglobin Oxyhemoglobin Sodium 146 H Potassium Chloride 110.8 H Carbon Dioxide BUN 22 H Creatinine 0.7 L Glucose 101 H POC Glucose Lactic Acid Calcium 7.9 L Phosphorus 4.60 H Magnesium Total Bilirubin AST NT-Pro-B Natriuret Pep Total Protein Albumin Lipase
--- NOTE | 2019-07-30 11:40 | Progress Note ---
Assessment and Plan Cultures: 07/21/2019 blood culture: No growth A/P: 19-year-old male with Down syndrome admitted with severe constipation and fecal impaction: 1) Septic shock: resolved. intra-abdominal source. s/p ex-lap on 07/23/2019, findings of multiple distinct areas of necrosis on transverse colon. Rest of intestines were normal. Gen. Surg following (see #3). 2) Acute renal failure: resolved. Creatinine normal. Dose adjust abx accordingly. 3) Fecal impaction, colonic distention with necrosis and shock: s/p ex-lap on 07/23/2019, findings of multiple distinct areas of necrosis on transverse colon. rest of intestines were normal. Gen. Surg following, s/p washout on 07/26/2019 along with abdominal colectomy with ileosigmoid anastomosis, open abdomen. Underwent abdominal closure on 07/28/2019. 4) Acute respiratory failure: Intubated, on vent. Recs: Continue IV Cefepime, Flagyl, Fluconazole, possibly stop abx after today's doses recheck WBC in AM Meghan Williamson MD, FACP [facility] ([facility] C: [phone] O: [phone] F: [phone] Subjective Date of service: 07/30/19 Principal diagnosis: Respiratory Failure Interval history: Low grade temperatures, no fever. Remains intubated, sedated. Stable. Got closure of abdomen on 07/28/2019. Objective - Exam Narrative Exam: Physical Exam: Constitutional: sedated, intubated Head, Ears, Nose: Normocephalic, atraumatic. External ears, nose normal Eyes: Conjunctivae/corneas clear. No icterus. No ptosis. Neck: intubated Oral: intubated Cardiovascular: S1, S2 normal. Respiratory: Good air entry, clear to auscultation bilaterally GI: soft, midline dressing +, bowel sounds hypo Musculoskeletal: No pedal edema, no cyanosis. Dialysis catheter present Skin: No rash or abscess Hem/Lymphatic: No palpable cervical or supraclavicular nodes. No lymphangitis Psych: no agitation Neurological: sedated, intubated, on vent - Constitutional Vitals: Vital Signs Temp Pulse Resp BP Pulse Ox 99.3 F 54 L 18 116/33 98 07/30/19 08:00 07/30/19 10:30 07/30/19 10:30 07/30/19 10:30 07/30/19 10:30 Temperature -Last 24 Hours Temperature 99.3 F Temperature 100.0 F Temperature 99.6 F Temperature 98.8 F Temperature 99.9 F Temperature 99.5 F - Labs CBC & Chem 7: 07/30/19 04:46 07/30/19 04:46 Labs: Abnormal lab results 07/29/19 07/30/19 07/30/19 Range/Units 17:59 04:46 04:46 WBC 21.2 H (4.5-11.0) K/mm3 RBC 3.36 L (3.65-5.03) M/mm3 Hgb 10.5 L (11.8-15.2) gm/dl Hct 31.4 L (35.5-45.6) % RDW 15.8 H (13.2-15.2) % POC ABG pH (7.35-7.45) POC ABG pCO2 (35-45) POC ABG pO2 (80-105) Sodium 146 H (137-145) mmol/L Chloride 110.8 H (98-107) mmol/L BUN 22 H (9-20) mg/dL Creatinine 0.7 L (0.8-1.5) mg/dL Glucose 101 H (75-100) mg/dL POC Glucose 110 H (70-105) Calcium 7.9 L (8.4-10.2) mg/dL Phosphorus 4.60 H (2.5-4.5) mg/dL 07/30/19 Range/Units 05:23 WBC (4.5-11.0) K/mm3 RBC (3.65-5.03) M/mm3 Hgb (11.8-15.2) gm/dl Hct (35.5-45.6) % RDW (13.2-15.2) % POC ABG pH 7.344 L (7.35-7.45) POC ABG pCO2 48.8 H (35-45) POC ABG pO2 77 L (80-105) Sodium (137-145) mmol/L Chloride (98-107) mmol/L BUN (9-20) mg/dL Creatinine (0.8-1.5) mg/dL Glucose (75-100) mg/dL POC Glucose (70-105) Calcium (8.4-10.2) mg/dL Phosphorus (2.5-4.5) mg/dL
--- NOTE | 2019-07-30 12:09 | Progress Note ---
Assessment and Plan (1) Ischemic necrosis of large intestine Current Visit: Yes Status: Acute Plan to address problem: Pt stable. s/p ex-lap with partial colon resection (07/23) - POD#7; s/p abdominal colectomy with ileocolostomy (07/26) - POD#4; s/p abdominal reexploration, peritoneal lavage, closure of open abdomen, placement of URMILA drain (07/28) POD# 2 Plan: 1. neuro - sedation and pain control as needed 2. CV - DVT ppx. Monitor CBC 3. Resp - vent management per ICU, possible extubation tomorrow. Left pleural effusion - new since last CXR on 07/23. May be reason for low grade temp, elevation in WBC. Lasix started, may need thoracentesis 4. GI - NPO, TPN, NGT to LIWS. record URMILA output. Pt will likely have prolonged ileus, do not start TF until evidence of bowel function. GI ppx. Abdominal binder at all times. 5. - lee for strict I/Os. May be removed and replaced with condom cath when ok with 1' service and nephro. Ua/cx ordered 6. ID - abx per ID 7. Endo - blood glucose monitoring per protocol 8. FEN - BMP daily, replace lytes as needed. TPN Dispo - ICU No family at bedside. Plan discussed with patient's RN Sari and Dr. Ruiz Thank you, please call with questions. Subjective Date of service: 07/30/19 Narrative: Pt seen and examined. No overnight events. Tm 100. Agitated when off sedation. Objective Vital Signs - 12hr 07/30/19 07/30/19 07/30/19 00:30 01:00 01:30 Temperature Pulse Rate 73 61 66 Pulse Rate [ From Monitor] Respiratory 18 18 18 Rate Blood Pressure 110/34 111/31 116/31 O2 Sat by Pulse 97 96 96 Oximetry 07/30/19 07/30/19 07/30/19 02:00 02:06 02:30 Temperature Pulse Rate 65 68 64 Pulse Rate [ From Monitor] Respiratory 18 18 Rate Blood Pressure 113/30 118/33 110/29 O2 Sat by Pulse 97 98 97 Oximetry 07/30/19 07/30/19 07/30/19 03:00 03:30 04:00 Temperature 100.0 F H Pulse Rate 75 84 67 Pulse Rate [ From Monitor] Respiratory 18 20 18 Rate Blood Pressure 115/35 122/39 111/33 O2 Sat by Pulse 96 96 96 Oximetry 07/30/19 07/30/19 07/30/19 04:30 05:00 05:03 Temperature Pulse Rate 67 68 68 Pulse Rate [ From Monitor] Respiratory 17 18 Rate Blood Pressure 118/22 115/36 115/36 O2 Sat by Pulse 97 96 96 Oximetry 07/30/19 07/30/19 07/30/19 05:30 06:00 06:30 Temperature Pulse Rate 68 60 Pulse Rate [ From Monitor] Respiratory 18 18 18 Rate Blood Pressure 118/37 99/36 120/36 O2 Sat by Pulse 97 96 98 Oximetry 07/30/19 07/30/19 07/30/19 07:00 07:30 08:00 Temperature 99.3 F Pulse Rate 58 L 56 L 60 Pulse Rate [ 60 From Monitor] Respiratory 18 18 18 Rate Blood Pressure 114/30 116/29 123/34 O2 Sat by Pulse 98 99 99 Oximetry 07/30/19 07/30/19 07/30/19 08:15 08:30 09:00 Temperature Pulse Rate 61 79 81 Pulse Rate [ From Monitor] Respiratory 20 18 Rate Blood Pressure 116/33 119/37 120/44 O2 Sat by Pulse 98 97 98 Oximetry 07/30/19 07/30/19 07/30/19 09:30 10:00 10:30 Temperature Pulse Rate 60 58 L 54 L Pulse Rate [ From Monitor] Respiratory 19 18 18 Rate Blood Pressure 110/30 109/31 116/33 O2 Sat by Pulse 98 97 98 Oximetry - General physical appearance Narrative Exam: Gen: sedated on vent. opens eyes spontaneously ENT: ETT and NGT in place. NGT with bilious drainage CV: s1, S2+ Resp: on vent Abd: soft, NT, ND. Midline incision c/d/i with chaparro in place. Minimal serous drainage on lower portion of dressing. Dressing removed. Abdominal binder in place. Urmila drain in RLQ serous Ext: generalized edema Output URMILA -75cc/24h Lee -1700cc /24h NGT - 950cc/24h - Labs 07/30/19 04:46 07/30/19 04:46 Diabetes panel 07/30/19 07/30/19 Range/Units 04:46 04:46 Sodium 146 H (137-145) mmol/L Potassium 3.7 (3.6-5.0) mmol/L Chloride 110.8 H (98-107) mmol/L Carbon Dioxide 27 (22-30) mmol/L BUN 22 H (9-20) mg/dL Creatinine 0.7 L (0.8-1.5) mg/dL Glucose 101 H (75-100) mg/dL Calcium 7.9 L (8.4-10.2) mg/dL Triglycerides 136 (2-149) mg/dL Calcium panel 07/30/19 Range/Units 04:46 Calcium 7.9 L (8.4-10.2) mg/dL Phosphorus 4.60 H (2.5-4.5) mg/dL Pituitary panel 07/30/19 Range/Units 04:46 Sodium 146 H (137-145) mmol/L Potassium 3.7 (3.6-5.0) mmol/L Chloride 110.8 H (98-107) mmol/L Carbon Dioxide 27 (22-30) mmol/L BUN 22 H (9-20) mg/dL Creatinine 0.7 L (0.8-1.5) mg/dL Glucose 101 H (75-100) mg/dL Calcium 7.9 L (8.4-10.2) mg/dL Adrenal panel 07/30/19 Range/Units 04:46 Sodium 146 H (137-145) mmol/L Potassium 3.7 (3.6-5.0) mmol/L Chloride 110.8 H (98-107) mmol/L Carbon Dioxide 27 (22-30) mmol/L BUN 22 H (9-20) mg/dL Creatinine 0.7 L (0.8-1.5) mg/dL Glucose 101 H (75-100) mg/dL Calcium 7.9 L (8.4-10.2) mg/dL
[2019-07-30 12:29] LABS: Bilirubin,Urine NEG (Negative); Blood,Urine NEG (Negative); Color,Urine Amber (Yellow); Mucus,Urine FEW /HPF; Urobilinogen,Urine < 2.0 mg/dL (<2.0)
--- NOTE | 2019-07-30 15:31 | XRay Report ---
CHEST 1 VIEW INDICATION: Right arm PICC line placement. COMPARISON: 07/29/2019 FINDINGS: Support devices: A right PICC line has been inserted and the tip is in the inferior aspect of the rig ht atrium. A nasogastric tube tip is in satisfactory position above the selina. Heart: Within normal limits. Pulmonary vasculature: Increased vascularity and indistinct vessels. Lungs/Pleura: Low lung volumes and bilateral diffuse relatively symmetric airspace disease. Decreased left pleural effusion compared to the last exam. Additional findings: No pneumothorax. IMPRESSION: 1. Right PICC line tip in the inferior right atrium. Recommend 5 cm pullback. 2. Bilateral pneumonia versus CHF with pulmonary edema. Some improvement with decreased left pleural effusion. Signer Name: Norman Weiss MD Signed: 07/30/2019 3:27 PM Workstation Name: [id number]
--- NOTE | 2019-07-30 16:50 | XRay Report ---
CHEST 1 VIEW 4:34 PM INDICATION: Repeat Right arm PICC line placement. COMPARISON: Earlier the same day FINDINGS: Support devices: Right PICC has been pulled back. Tip projects over the SVC in expected position. Heart: Stable. Lungs/Pleura: No pneumothorax. Pleural parenchymal disease in the left lower hemithorax is again note d. Perihilar opacities are improved. IMPRESSION: 1. Right PICC projects in expected position after repositioning. No complications. Signer Name: Luis Fernando Lam MD Signed: 07/30/2019 4:45 PM Workstation Name: [id number]
[2019-07-30] MEDS ORDERED: TOTAL PARENTERAL NUTRITION 2,016 ML IV SCH (20:00)
[2019-07-31] MEDS: fentaNYL DRIP Premix 2,000 MCG/100 ML BAG IV SCH ×2 (01:53→09:39)
[2019-07-31] MEDS: CEFEPIME/NS 2 GM/100 ML 2 GM/100 ML BAG IV SCH ×2 (03:19→16:55)
[2019-07-31 04:54] LABS: ABG Base Excess 1.2 mmol/L (-2.0-3.0); ABG Methemoglobin 0.4 % (0.0-1.5); ABG Oxygen Saturation 96.7 % (95.0-99.0); ABG PCO2 42.4 mm Hg; ABG PH 7.406 pH Units (7.350-7.450); ABG PO2 85.1 mm Hg (80.0-90.0)
[2019-07-31] MEDS: PROPOFOL 1,000 MG/100 ML BOTTLE IV SCH (05:37)
[2019-07-31] MEDS: FUROSEMIDE 20 MG/2 ML INJ IV SCH ×2 (05:37→18:21)
[2019-07-31] MEDS: metroNIDAZOLE/NS 500 MG/100 ML 500 MG/100 ML BAG IV SCH ×3 (05:37→21:22)
[2019-07-31 08:30] LABS: Hematocrit 29.3 % (35.5-45.6); Hemoglobin 9.8 gm/dl (11.8-15.2); Mean Corpuscular HGB Conc 33 % (32-34); Mean Corpuscular Volume 94 fl (84-94); Platelet Count 187 K/mm3 (140-440); Red Blood Count 3.11 M/mm3 (3.65-5.03); Red Cell Distribution Width 15.8 % (13.2-15.2)
[2019-07-31 08:55] LABS: BUN/Creatinine Ratio 31; Blood Urea Nitrogen 22 mg/dL (9-20); Calcium 8.3 mg/dL (8.4-10.2); Hemolysis Index 3
[2019-07-31] MEDS: ENOXAPARIN 40 MG/0.4 ML INJ SUB-Q SCH (09:40)
[2019-07-31] MEDS: FAMOTIDINE 20 MG/2 ML INJ IV SCH ×2 (09:40→21:23)
[2019-07-31] MEDS: VALPROATE SODIUM 500 MG in SODIUM CHLORIDE 0.9% 100 ML IV SCH ×2 (09:41→21:22)
[2019-07-31] MEDS: FLUCONAZOLE 400 MG 200 ML IV SCH (09:46)
--- NOTE | 2019-07-31 10:45 | Progress Note ---
Assessment and Plan - Patient Problems (1) Ischemic necrosis of large intestine Current Visit: Yes Status: Acute Plan to address problem: s/p ex-lap with partial colon resection (07/23) - POD#8; s/p abdominal colectomy with ileocolostomy (07/26) - POD#5; s/p abdominal reexploration, peritoneal lavage, closure of open abdomen, placement of URMILA drain (07/28) POD# 3 Plan: 1. neuro - sedation and pain control as needed 2. CV - DVT ppx. Monitor CBC 3. Resp - vent management per ICU, possible extubation today. Left pleural effusion - new since last CXR on 07/23. 4. GI - NPO, TPN, NGT to LIWS. record URMILA output. Pt will likely have prolonged ileus, do not start TF until evidence of bowel function. GI ppx. Abdominal binder at all times to minimize risk of patient pulling at URMILA, incision, etc. 5. - lee for strict I/Os. May be removed and replaced with condom cath when ok with 1' service and nephro. Ua/cx ordered 6. ID - abx per ID 7. Endo - blood glucose monitoring per protocol 8. FEN - BMP daily, replace lytes as needed. TPN Dispo - ICU Spoke with Mother at bedside. Spoke with Dr. Ruiz. Thank you, please call with questions. Subjective Date of service: 07/31/19 Patient Reports: Positive: no bowel movement, other (patient agitated at times. ) Objective Vital Signs - 12hr 07/30/19 07/30/19 07/30/19 23:00 23:30 23:50 Temperature 99.1 F Pulse Rate 58 L 52 L Pulse Rate [ From Monitor] Respiratory 18 18 Rate Blood Pressure 113/42 111/44 O2 Sat by Pulse 97 97 Oximetry 07/31/19 07/31/19 07/31/19 00:00 00:10 00:26 Temperature 99.1 F Pulse Rate 58 L 60 57 L Pulse Rate [ 58 L From Monitor] Respiratory 18 18 Rate Blood Pressure 105/50 105/50 105/50 O2 Sat by Pulse 98 97 99 Oximetry 07/31/19 07/31/19 07/31/19 00:30 01:00 01:30 Temperature Pulse Rate 56 L 52 L 51 L Pulse Rate [ From Monitor] Respiratory 18 18 18 Rate Blood Pressure 119/50 116/45 115/47 O2 Sat by Pulse 98 98 99 Oximetry 07/31/19 07/31/19 07/31/19 02:00 02:30 03:00 Temperature Pulse Rate 52 L 52 L 51 L Pulse Rate [ From Monitor] Respiratory 18 18 18 Rate Blood Pressure 115/44 115/45 116/47 O2 Sat by Pulse 99 99 99 Oximetry 07/31/19 07/31/19 07/31/19 03:30 04:00 04:30 Temperature 99.1 F Pulse Rate 57 L 56 L 55 L Pulse Rate [ 60 From Monitor] Respiratory 18 18 18 Rate Blood Pressure 117/46 115/44 117/37 O2 Sat by Pulse 99 98 99 Oximetry 07/31/19 07/31/19 07/31/19 04:45 05:00 05:30 Temperature Pulse Rate 56 L 53 L 60 Pulse Rate [ From Monitor] Respiratory 18 18 Rate Blood Pressure 104/57 110/44 116/52 O2 Sat by Pulse 99 98 99 Oximetry 07/31/19 07/31/19 07/31/19 06:00 06:30 07:00 Temperature Pulse Rate 55 L 55 L 53 L Pulse Rate [ From Monitor] Respiratory 18 18 18 Rate Blood Pressure 110/41 111/40 113/41 O2 Sat by Pulse 98 98 99 Oximetry 07/31/19 07/31/19 07/31/19 07:30 08:00 08:31 Temperature 98.8 F Pulse Rate 50 L 70 74 Pulse Rate [ 58 L From Monitor] Respiratory 18 18 Rate Blood Pressure 115/45 117/48 117/51 O2 Sat by Pulse 99 98 96 Oximetry - General physical appearance no distress, no pain, other (intubated, sedated) - Respiratory normal expansion, normal respiratory effort - Abdomen soft, not tender, bowel sounds hypoactive, not distended, not guarding, not rigid, surgical scars (Dressings clear and dry), other (URMILA serosang) - Integumentary no rash, no growths, no abnormal pigmentation - Labs 07/31/19 08:10 07/31/19 08:10 Diabetes panel 07/31/19 Range/Units 08:10 Sodium 146 H (137-145) mmol/L Potassium 3.8 (3.6-5.0) mmol/L Chloride 110.2 H (98-107) mmol/L Carbon Dioxide 27 (22-30) mmol/L BUN 22 H (9-20) mg/dL Creatinine 0.7 L (0.8-1.5) mg/dL Glucose 102 H (75-100) mg/dL Calcium 8.3 L (8.4-10.2) mg/dL Calcium panel 07/31/19 Range/Units 08:10 Calcium 8.3 L (8.4-10.2) mg/dL Phosphorus 4.30 (2.5-4.5) mg/dL Pituitary panel 07/31/19 Range/Units 08:10 Sodium 146 H (137-145) mmol/L Potassium 3.8 (3.6-5.0) mmol/L Chloride 110.2 H (98-107) mmol/L Carbon Dioxide 27 (22-30) mmol/L BUN 22 H (9-20) mg/dL Creatinine 0.7 L (0.8-1.5) mg/dL Glucose 102 H (75-100) mg/dL Calcium 8.3 L (8.4-10.2) mg/dL Adrenal panel 07/31/19 Range/Units 08:10 Sodium 146 H (137-145) mmol/L Potassium 3.8 (3.6-5.0) mmol/L Chloride 110.2 H (98-107) mmol/L Carbon Dioxide 27 (22-30) mmol/L BUN 22 H (9-20) mg/dL Creatinine 0.7 L (0.8-1.5) mg/dL Glucose 102 H (75-100) mg/dL Calcium 8.3 L (8.4-10.2) mg/dL - Imaging Chest x-ray: report reviewed, image reviewed
[2019-07-31] MEDS ORDERED: HALOPERIDOL LACTATE 5 MG/1 ML INJ IV ONE ×2 (11:00→14:00)
[2019-07-31 11:11] LABS: Basophils % (Manual) 0 % (0.0-1.8); Eosinophils % (Manual) 0 % (0.0-4.3); Total Cells Counted 100
--- NOTE | 2019-07-31 11:11 | Progress Note ---
Assessment and Plan 19 y/o male with acute respiratory failure s/p exploratory lap x 2 now on TPN, continuous NG suction and continued sedation. 1. Repeat CXR is better. Effusion improved. WBC better. Doubt this is infected or infection related. Will attempt extubation this am. 2. Spoke with surgery. Binder is for protective purposes only. Will keep in place but no indication for thora at this time. 3. NG tube stays to continuous suction and will continue TPN 4. Bipap PRN at bedside for extubation CCT 31 minutes. Subjective Date of service: 07/31/19 Principal diagnosis: Respiratory Failure Interval history: No acute events. Still sedated. Mother at bedside. Objective Vital Signs - 12hr 07/30/19 07/30/19 07/31/19 23:30 23:50 00:00 Temperature 99.1 F 99.1 F Pulse Rate 52 L 58 L Pulse Rate [ 58 L From Monitor] Respiratory 18 18 Rate Blood Pressure 111/44 105/50 O2 Sat by Pulse 97 98 Oximetry 07/31/19 07/31/19 07/31/19 00:10 00:26 00:30 Temperature Pulse Rate 60 57 L 56 L Pulse Rate [ From Monitor] Respiratory 18 18 Rate Blood Pressure 105/50 105/50 119/50 O2 Sat by Pulse 97 99 98 Oximetry 07/31/19 07/31/19 07/31/19 01:00 01:30 02:00 Temperature Pulse Rate 52 L 51 L 52 L Pulse Rate [ From Monitor] Respiratory 18 18 18 Rate Blood Pressure 116/45 115/47 115/44 O2 Sat by Pulse 98 99 99 Oximetry 07/31/19 07/31/19 07/31/19 02:30 03:00 03:30 Temperature Pulse Rate 52 L 51 L 57 L Pulse Rate [ From Monitor] Respiratory 18 18 18 Rate Blood Pressure 115/45 116/47 117/46 O2 Sat by Pulse 99 99 99 Oximetry 07/31/19 07/31/19 07/31/19 04:00 04:30 04:45 Temperature 99.1 F Pulse Rate 56 L 55 L 56 L Pulse Rate [ 60 From Monitor] Respiratory 18 18 Rate Blood Pressure 115/44 117/37 104/57 O2 Sat by Pulse 98 99 99 Oximetry 07/31/19 07/31/19 07/31/19 05:00 05:30 06:00 Temperature Pulse Rate 53 L 60 55 L Pulse Rate [ From Monitor] Respiratory 18 18 18 Rate Blood Pressure 110/44 116/52 110/41 O2 Sat by Pulse 98 99 98 Oximetry 07/31/19 07/31/19 07/31/19 06:30 07:00 07:30 Temperature Pulse Rate 55 L 53 L 50 L Pulse Rate [ From Monitor] Respiratory 18 18 18 Rate Blood Pressure 111/40 113/41 115/45 O2 Sat by Pulse 98 99 99 Oximetry 07/31/19 07/31/19 08:00 08:31 Temperature 98.8 F Pulse Rate 70 74 Pulse Rate [ 58 L From Monitor] Respiratory 18 Rate Blood Pressure 117/48 117/51 O2 Sat by Pulse 98 96 Oximetry Constitutional: no acute distress, other (obese, sedated, critically ill on ventilator) Eyes: non-icteric ENT: oropharynx moist Neck: supple Effort: normal Ascultation: Bilateral: diminished breath sounds (due to obesity) Cardiovascular: regular rate and rhythm Gastrointestinal: normoactive bowel sounds, soft, other (morbidly obese abd) Integumentary: normal Extremities: no cyanosis, no edema, pink and warm Neurologic: normal mental status, non-focal exam, pupils equal and round, other (on vent) Psychiatric: mood appropriate, affect normal CBC and BMP: 07/31/19 08:10 07/31/19 08:10 ABG, PT/INR, D-dimer: ABG POC ABG pH 7.344 (7.35-7.45) L 07/30/19 05:23 ABG pH 7.406 pH Units (7.350-7.450) 07/31/19 04:42 POC ABG pCO2 48.8 (35-45) H 07/30/19 05:23 ABG pCO2 42.4 mm Hg 07/31/19 04:42 POC ABG pO2 77 (80-105) L 07/30/19 05:23 ABG pO2 85.1 mm Hg (80.0-90.0) 07/31/19 04:42 POC ABG HCO3 26.6 (22-26 mml/L) 07/30/19 05:23 POC ABG Total CO2 28 (23-27mmol/L) 07/30/19 05:23 POC ABG O2 Sat 94 07/30/19 05:23 ABG O2 Saturation 96.7 % (95.0-99.0) 07/31/19 04:42 PT/INR, D-dimer D-Dimer 886.89 ng/mlDDU (0-234) H 07/22/19 21:45 Abnormal lab findings: Abnormal Labs 07/21/19 07/21/19 07/22/19 19:02 19:02 10:50 WBC 12.1 H 13.7 H RBC 5.56 H Hgb 17.1 H Hct 52.9 H D MCV 95 H 95 H RDW Plt Count 130 L 137 L Lymph % (Auto) 7.2 L Williams % (Auto) 9.6 H Lymph # 0.9 L Williams # 1.2 H Seg Neutrophils % 82.8 H Lymphocytes % (Manual) Monocytes % (Manual) Nucleated RBC % Seg Neutrophils # 10.0 H Seg Neutrophils # Man Lymphocytes # (Manual) Monocytes # (Manual) D-Dimer POC ABG pH ABG pH POC ABG pCO2 POC ABG pO2 ABG pO2 ABG O2 Saturation ABG Hemoglobin Oxyhemoglobin Sodium 136 L Potassium Chloride 95.9 L Carbon Dioxide BUN Creatinine Glucose 163 H POC Glucose Lactic Acid Calcium Phosphorus Magnesium Total Bilirubin AST NT-Pro-B Natriuret Pep Total Protein Albumin Lipase 10 L 07/22/19 07/22/19 07/22/19 10:50 15:33 15:33 WBC 13.1 H RBC 5.10 H Hgb 15.9 H Hct 49.0 H MCV 96 H RDW Plt Count 127 L Lymph % (Auto) Williams % (Auto) Lymph # Williams # Seg Neutrophils % Lymphocytes % (Manual) Monocytes % (Manual) Nucleated RBC % Seg Neutrophils # Seg Neutrophils # Man Lymphocytes # (Manual) Monocytes # (Manual) D-Dimer POC ABG pH ABG pH POC ABG pCO2 POC ABG pO2 ABG pO2 ABG O2 Saturation ABG Hemoglobin Oxyhemoglobin Sodium 136 L Potassium 5.3 H D 6.0 H Chloride 96.7 L Carbon Dioxide 17 L BUN 22 H 29 H Creatinine 2.0 H D 2.2 H Glucose 129 H 121 H POC Glucose Lactic Acid Calcium 8.2 L Phosphorus 4.70 H Magnesium 3.10 H Total Bilirubin AST NT-Pro-B Natriuret Pep Total Protein Albumin Lipase 07/22/19 07/22/19 07/22/19 18:19 18:42 21:45 WBC RBC Hgb Hct MCV RDW Plt Count Lymph % (Auto) Williams % (Auto) Lymph # Williams # Seg Neutrophils % Lymphocytes % (Manual) Monocytes % (Manual) Nucleated RBC % Seg Neutrophils # Seg Neutrophils # Man Lymphocytes # (Manual) Monocytes # (Manual) D-Dimer 886.89 H POC ABG pH 7.197 L ABG pH POC ABG pCO2 45.2 H POC ABG pO2 ABG pO2 ABG O2 Saturation ABG Hemoglobin Oxyhemoglobin Sodium Potassium Chloride Carbon Dioxide BUN Creatinine Glucose POC Glucose 107 H Lactic Acid Calcium Phosphorus Magnesium Total Bilirubin AST NT-Pro-B Natriuret Pep Total Protein Albumin Lipase 07/22/19 07/22/19 07/22/19 21:45 21:45 21:45 WBC RBC Hgb Hct MCV RDW Plt Count Lymph % (Auto) Williams % (Auto) Lymph # Williams # Seg Neutrophils % Lymphocytes % (Manual) Monocytes % (Manual) Nucleated RBC % Seg Neutrophils # Seg Neutrophils # Man Lymphocytes # (Manual) Monocytes # (Manual) D-Dimer POC ABG pH ABG pH POC ABG pCO2 POC ABG pO2 ABG pO2 ABG O2 Saturation ABG Hemoglobin Oxyhemoglobin Sodium 136 L Potassium 5.6 H Chloride Carbon Dioxide 20 L BUN 38 H Creatinine 2.6 H Glucose 63 L POC Glucose Lactic Acid 3.10 H* Calcium 8.2 L Phosphorus Magnesium Total Bilirubin AST NT-Pro-B Natriuret Pep 5407 H Total Protein Albumin Lipase 07/23/19 07/23/19 07/23/19 02:11 02:50 02:50 WBC 15.0 H RBC Hgb Hct MCV 95 H RDW Plt Count 118 L Lymph % (Auto) Williams % (Auto) Lymph # Williams # Seg Neutrophils % Lymphocytes % (Manual) 9.0 L Monocytes % (Manual) 17.0 H Nucleated RBC % Seg Neutrophils # Seg Neutrophils # Man Lymphocytes # (Manual) Monocytes # (Manual) 2.6 H D-Dimer POC ABG pH ABG pH POC ABG pCO2 POC ABG pO2 ABG pO2 ABG O2 Saturation ABG Hemoglobin Oxyhemoglobin Sodium Potassium Chloride Carbon Dioxide BUN Creatinine Glucose POC Glucose 69 L Lactic Acid 3.30 H* Calcium Phosphorus Magnesium Total Bilirubin AST NT-Pro-B Natriuret Pep Total Protein Albumin Lipase 07/23/19 07/23/19 07/23/19 02:50 03:09 04:30 WBC RBC Hgb Hct MCV RDW Plt Count Lymph % (Auto) Williams % (Auto) Lymph # Williams # Seg Neutrophils % Lymphocytes % (Manual) Monocytes % (Manual) Nucleated RBC % Seg Neutrophils # Seg Neutrophils # Man Lymphocytes # (Manual) Monocytes # (Manual) D-Dimer POC ABG pH 7.296 L ABG pH POC ABG pCO2 POC ABG pO2 66 L ABG pO2 ABG O2 Saturation ABG Hemoglobin Oxyhemoglobin Sodium 134 L Potassium 7.5 H* D Chloride Carbon Dioxide 21 L BUN 47 H Creatinine 2.7 H Glucose POC Glucose Lactic Acid 3.50 H* Calcium 7.6 L Phosphorus Magnesium 2.90 H Total Bilirubin AST 60 H NT-Pro-B Natriuret Pep Total Protein 5.5 L D Albumin 2.5 L Lipase 07/23/19 07/23/19 07/23/19 07:30 09:03 09:03 WBC RBC Hgb Hct MCV RDW Plt Count Lymph % (Auto) Williams % (Auto) Lymph # Williams # Seg Neutrophils % Lymphocytes % (Manual) Monocytes % (Manual) Nucleated RBC % Seg Neutrophils # Seg Neutrophils # Man Lymphocytes # (Manual) Monocytes # (Manual) D-Dimer POC ABG pH ABG pH POC ABG pCO2 POC ABG pO2 ABG pO2 ABG O2 Saturation ABG Hemoglobin Oxyhemoglobin Sodium 136 L Potassium 6.6 H* 7.1 H* Chloride Carbon Dioxide 20 L BUN 50 H 49 H Creatinine 2.6 H 2.4 H Glucose 67 L POC Glucose Lactic Acid 4.10 H* Calcium 7.6 L 7.7 L Phosphorus Magnesium Total Bilirubin AST NT-Pro-B Natriuret Pep Total Protein Albumin Lipase 07/23/19 07/23/19 07/23/19 10:52 13:13 14:48 WBC RBC Hgb Hct MCV RDW Plt Count Lymph % (Auto) Williams % (Auto) Lymph # Williams # Seg Neutrophils % Lymphocytes % (Manual) Monocytes % (Manual) Nucleated RBC % Seg Neutrophils # Seg Neutrophils # Man Lymphocytes # (Manual) Monocytes # (Manual) D-Dimer POC ABG pH 7.280 L ABG pH POC ABG pCO2 48.7 H POC ABG pO2 ABG pO2 ABG O2 Saturation ABG Hemoglobin Oxyhemoglobin Sodium Potassium Chloride Carbon Dioxide BUN Creatinine Glucose POC Glucose 123 H Lactic Acid 4.10 H* Calcium Phosphorus Magnesium Total Bilirubin AST NT-Pro-B Natriuret Pep Total Protein Albumin Lipase 07/23/19 07/23/19 07/23/19 15:56 17:35 Unknown WBC RBC Hgb Hct MCV RDW Plt Count Lymph % (Auto) Williams % (Auto) Lymph # Williams # Seg Neutrophils % Lymphocytes % (Manual) Monocytes % (Manual) Nucleated RBC % Seg Neutrophils # Seg Neutrophils # Man Lymphocytes # (Manual) Monocytes # (Manual) D-Dimer POC ABG pH ABG pH POC ABG pCO2 POC ABG pO2 ABG pO2 ABG O2 Saturation ABG Hemoglobin Oxyhemoglobin Sodium Potassium Chloride Carbon Dioxide BUN Creatinine Glucose POC Glucose Lactic Acid 3.00 H* 4.10 H* 4.90 H* Calcium Phosphorus Magnesium Total Bilirubin AST NT-Pro-B Natriuret Pep Total Protein Albumin Lipase 07/23/19 07/24/19 07/24/19 Unknown 00:05 00:40 WBC RBC Hgb Hct MCV RDW Plt Count Lymph % (Auto) Williams % (Auto) Lymph # Williams # Seg Neutrophils % Lymphocytes % (Manual) Monocytes % (Manual) Nucleated RBC % Seg Neutrophils # Seg Neutrophils # Man Lymphocytes # (Manual) Monocytes # (Manual) D-Dimer POC ABG pH ABG pH POC ABG pCO2 POC ABG pO2 ABG pO2 151.3 H ABG O2 Saturation ABG Hemoglobin Oxyhemoglobin Sodium Potassium 5.6 H D Chloride Carbon Dioxide BUN 29 H Creatinine Glucose 128 H POC Glucose 118 H Lactic Acid Calcium 7.4 L Phosphorus Magnesium Total Bilirubin AST NT-Pro-B Natriuret Pep Total Protein Albumin Lipase 07/24/19 07/24/19 07/24/19 04:00 05:37 05:37 WBC RBC Hgb Hct MCV RDW Plt Count 89 L Lymph % (Auto) Williams % (Auto) Lymph # Williams # Seg Neutrophils % Lymphocytes % (Manual) 5.0 L Monocytes % (Manual) Nucleated RBC % Seg Neutrophils # Seg Neutrophils # Man Lymphocytes # (Manual) 0.5 L Monocytes # (Manual) D-Dimer POC ABG pH ABG pH POC ABG pCO2 POC ABG pO2 ABG pO2 ABG O2 Saturation ABG Hemoglobin Oxyhemoglobin Sodium Potassium Chloride Carbon Dioxide BUN 29 H Creatinine Glucose 120 H POC Glucose 123 H Lactic Acid Calcium 7.4 L Phosphorus 2.30 L D Magnesium Total Bilirubin 1.40 H AST 107 H NT-Pro-B Natriuret Pep Total Protein 5.3 L Albumin 2.5 L Lipase 07/24/19 07/24/19 07/24/19 05:37 10:18 18:44 WBC RBC Hgb Hct MCV RDW Plt Count Lymph % (Auto) Williams % (Auto) Lymph # Williams # Seg Neutrophils % Lymphocytes % (Manual) Monocytes % (Manual) Nucleated RBC % Seg Neutrophils # Seg Neutrophils # Man Lymphocytes # (Manual) Monocytes # (Manual) D-Dimer POC ABG pH 7.464 H ABG pH POC ABG pCO2 POC ABG pO2 125 H ABG pO2 ABG O2 Saturation ABG Hemoglobin Oxyhemoglobin Sodium Potassium Chloride Carbon Dioxide BUN Creatinine Glucose POC Glucose 130 H Lactic Acid 3.90 H* Calcium Phosphorus Magnesium Total Bilirubin AST NT-Pro-B Natriuret Pep Total Protein Albumin Lipase 07/24/19 07/25/19 07/25/19 18:52 04:45 04:45 WBC RBC Hgb Hct MCV RDW Plt Count 91 L Lymph % (Auto) Williams % (Auto) Lymph # Williams # Seg Neutrophils % Lymphocytes % (Manual) Monocytes % (Manual) Nucleated RBC % Seg Neutrophils # Seg Neutrophils # Man Lymphocytes # (Manual) Monocytes # (Manual) D-Dimer POC ABG pH ABG pH POC ABG pCO2 POC ABG pO2 ABG pO2 ABG O2 Saturation ABG Hemoglobin Oxyhemoglobin Sodium Potassium Chloride Carbon Dioxide BUN 24 H Creatinine Glucose POC Glucose 107 H Lactic Acid Calcium 7.9 L Phosphorus 2.20 L Magnesium Total Bilirubin AST NT-Pro-B Natriuret Pep Total Protein Albumin Lipase 07/25/19 07/26/19 07/26/19 05:32 02:20 05:00 WBC RBC Hgb Hct MCV RDW Plt Count Lymph % (Auto) Williams % (Auto) Lymph # Williams # Seg Neutrophils % Lymphocytes % (Manual) Monocytes % (Manual) Nucleated RBC % Seg Neutrophils # Seg Neutrophils # Man Lymphocytes # (Manual) Monocytes # (Manual) D-Dimer POC ABG pH ABG pH POC ABG pCO2 POC ABG pO2 ABG pO2 70.6 L ABG O2 Saturation 94.7 L ABG Hemoglobin 12.0 L Oxyhemoglobin 92.8 L Sodium 148 H Potassium Chloride 112.1 H Carbon Dioxide BUN Creatinine 0.6 L Glucose 71 L POC Glucose 62 L Lactic Acid Calcium 8.3 L Phosphorus Magnesium Total Bilirubin AST NT-Pro-B Natriuret Pep Total Protein Albumin Lipase 07/26/19 07/26/19 07/27/19 05:45 05:47 05:00 WBC 13.1 H RBC Hgb Hct MCV RDW 15.8 H Plt Count 113 L Lymph % (Auto) Williams % (Auto) Lymph # Williams # Seg Neutrophils % Lymphocytes % (Manual) Monocytes % (Manual) 16.0 H Nucleated RBC % 2.0 H Seg Neutrophils # Seg Neutrophils # Man 8.1 H Lymphocytes # (Manual) Monocytes # (Manual) 2.1 H D-Dimer POC ABG pH ABG pH 7.309 L POC ABG pCO2 POC ABG pO2 ABG pO2 73.3 L ABG O2 Saturation 93.9 L ABG Hemoglobin 12.4 L Oxyhemoglobin 92.1 L Sodium Potassium Chloride Carbon Dioxide BUN Creatinine Glucose POC Glucose 68 L Lactic Acid Calcium Phosphorus Magnesium Total Bilirubin AST NT-Pro-B Natriuret Pep Total Protein Albumin Lipase 07/27/19 07/27/19 07/27/19 05:00 06:10 09:49 WBC RBC Hgb Hct MCV RDW Plt Count Lymph % (Auto) Williams % (Auto) Lymph # Williams # Seg Neutrophils % Lymphocytes % (Manual) Monocytes % (Manual) Nucleated RBC % Seg Neutrophils # Seg Neutrophils # Man Lymphocytes # (Manual) Monocytes # (Manual) D-Dimer POC ABG pH ABG pH POC ABG pCO2 POC ABG pO2 ABG pO2 ABG O2 Saturation ABG Hemoglobin 12.6 L Oxyhemoglobin 94.2 L Sodium 149 H Potassium Chloride 114.6 H Carbon Dioxide BUN Creatinine Glucose POC Glucose 110 H Lactic Acid Calcium 7.9 L Phosphorus Magnesium Total Bilirubin AST NT-Pro-B Natriuret Pep Total Protein Albumin Lipase 07/28/19 07/28/19 07/29/19 04:12 04:12 05:15 WBC 15.3 H RBC Hgb 11.5 L Hct 34.4 L MCV RDW 15.9 H Plt Count Lymph % (Auto) Williams % (Auto) Lymph # Williams # Seg Neutrophils % Lymphocytes % (Manual) Monocytes % (Manual) Nucleated RBC % Seg Neutrophils # Seg Neutrophils # Man Lymphocytes # (Manual) Monocytes # (Manual) D-Dimer POC ABG pH ABG pH POC ABG pCO2 POC ABG pO2 ABG pO2 ABG O2 Saturation ABG Hemoglobin Oxyhemoglobin Sodium 149 H 149 H Potassium Chloride 113.3 H 113.9 H Carbon Dioxide BUN Creatinine 0.7 L 0.6 L Glucose 109 H POC Glucose Lactic Acid Calcium 8.0 L 8.0 L Phosphorus Magnesium 1.60 L Total Bilirubin AST NT-Pro-B Natriuret Pep Total Protein 4.2 L D Albumin 2.0 L Lipase 07/29/19 07/29/19 07/29/19 05:34 05:34 17:59 WBC RBC Hgb Hct MCV RDW Plt Count Lymph % (Auto) Williams % (Auto) Lymph # Williams # Seg Neutrophils % Lymphocytes % (Manual) Monocytes % (Manual) Nucleated RBC % Seg Neutrophils # Seg Neutrophils # Man Lymphocytes # (Manual) Monocytes # (Manual) D-Dimer POC ABG pH ABG pH POC ABG pCO2 46.9 H POC ABG pO2 65 L ABG pO2 ABG O2 Saturation ABG Hemoglobin Oxyhemoglobin Sodium Potassium Chloride Carbon Dioxide BUN Creatinine Glucose POC Glucose 107 H 110 H Lactic Acid Calcium Phosphorus Magnesium Total Bilirubin AST NT-Pro-B Natriuret Pep Total Protein Albumin Lipase 07/30/19 07/30/19 07/30/19 04:46 04:46 05:23 WBC 21.2 H RBC 3.36 L Hgb 10.5 L Hct 31.4 L MCV RDW 15.8 H Plt Count Lymph % (Auto) Williams % (Auto) Lymph # Williams # Seg Neutrophils % Lymphocytes % (Manual) Monocytes % (Manual) Nucleated RBC % Seg Neutrophils # Seg Neutrophils # Man Lymphocytes # (Manual) Monocytes # (Manual) D-Dimer POC ABG pH 7.344 L ABG pH POC ABG pCO2 48.8 H POC ABG pO2 77 L ABG pO2 ABG O2 Saturation ABG Hemoglobin Oxyhemoglobin Sodium 146 H Potassium Chloride 110.8 H Carbon Dioxide BUN 22 H Creatinine 0.7 L Glucose 101 H POC Glucose Lactic Acid Calcium 7.9 L Phosphorus 4.60 H Magnesium Total Bilirubin AST NT-Pro-B Natriuret Pep Total Protein Albumin Lipase 07/30/19 07/31/19 07/31/19 12:17 04:42 08:10 WBC 15.4 H RBC 3.11 L Hgb 9.8 L Hct 29.3 L MCV RDW 15.8 H Plt Count Lymph % (Auto) Williams % (Auto) Lymph # Williams # Seg Neutrophils % Lymphocytes % (Manual) Monocytes % (Manual) Nucleated RBC % Seg Neutrophils # Seg Neutrophils # Man Lymphocytes # (Manual) Monocytes # (Manual) D-Dimer POC ABG pH ABG pH POC ABG pCO2 POC ABG pO2 ABG pO2 ABG O2 Saturation ABG Hemoglobin 10.1 L Oxyhemoglobin 94.8 L Sodium Potassium Chloride Carbon Dioxide BUN Creatinine Glucose POC Glucose 107 H Lactic Acid Calcium Phosphorus Magnesium Total Bilirubin AST NT-Pro-B Natriuret Pep Total Protein Albumin Lipase 07/31/19 08:10 WBC RBC Hgb Hct MCV RDW Plt Count Lymph % (Auto) Williams % (Auto) Lymph # Williams # Seg Neutrophils % Lymphocytes % (Manual) Monocytes % (Manual) Nucleated RBC % Seg Neutrophils # Seg Neutrophils # Man Lymphocytes # (Manual) Monocytes # (Manual) D-Dimer POC ABG pH ABG pH POC ABG pCO2 POC ABG pO2 ABG pO2 ABG O2 Saturation ABG Hemoglobin Oxyhemoglobin Sodium 146 H Potassium Chloride 110.2 H Carbon Dioxide BUN 22 H Creatinine 0.7 L Glucose 102 H POC Glucose Lactic Acid Calcium 8.3 L Phosphorus Magnesium Total Bilirubin AST NT-Pro-B Natriuret Pep Total Protein Albumin Lipase
[2019-07-31 11:12] LABS: Anisocytosis Few; Platelet Estimate Consistent w Auto
--- NOTE | 2019-07-31 11:43 | Progress Note ---
Assessment and Plan s/p ex-lap with partial colon resection (07/23), s/p abdominal colectomy with ileocolostomy (07/26), POD#3; s/p abdominal reexploration, peritoneal lavage, closure of open abdomen, placement of URMILA drain (07/28). Currently stable cardiac status. Cont present cardiac management. Consider ischemic evaluation to r/o ischemic CMP once medically stabilized. DDimer is noted to be elevated - pt too unstable for V/Q scan at this time. The patient has been seen in conjunction with Dr. CONTRERAS Blake who agrees with the assessment and plan of care. - Patient Problems (1) Acute respiratory failure Current Visit: Yes Status: Acute Qualifiers: Respiratory failure complication: hypoxia Qualified Code(s): J96.01 - Acute respiratory failure with hypoxia (2) Ischemic necrosis of large intestine Current Visit: Yes Status: Acute (3) Constipation Current Visit: Yes Status: Acute (4) Intractable vomiting with nausea Current Visit: Yes Status: Acute (5) Sinus tachycardia Current Visit: Yes Status: Resolved (6) Hypotension Current Visit: Yes Status: Resolved (7) Acute renal failure Current Visit: Yes Status: Acute (8) Hyperkalemia Current Visit: Yes Status: Acute (9) Leukocytosis Current Visit: Yes Status: Acute (10) Lactic acidosis Current Visit: Yes Status: Acute (11) Elevated d-dimer Current Visit: Yes Status: Acute (12) Cardiomyopathy Current Visit: Yes Status: Acute Qualifiers: Cardiomyopathy type: unspecified Qualified Code(s): I42.9 - Cardiomyopathy, unspecified Subjective Date of service: 07/31/19 Principal diagnosis: Respiratory Failure Interval history: pt remains intubated, sedated, in SR HR 70s on telemetry. mother at bedside. Objective Last Vital Signs Temp 98.8 F 07/31/19 08:00 Pulse 85 07/31/19 11:00 Resp 14 07/31/19 11:00 BP 138/64 07/31/19 11:00 Pulse Ox 95 07/31/19 11:00 - Physical Examination General: Other (intubated) Neck: Positive: neck supple, trachea midline Cardiac: Positive: Reg Rate and Rhythm, S1/S2 Lungs: Positive: Decreased Breath Sounds, Ventilated Respirations Neuro: Positive: Other (intubated) Abdomen: Positive: Other Skin: Positive: Other (abdominal surgical site). Negative: Rash Extremities: Absent: edema - Labs and Meds CBC 07/31/19 Range/Units 08:10 WBC 15.4 H (4.5-11.0) K/mm3 RBC 3.11 L (3.65-5.03) M/mm3 Hgb 9.8 L (11.8-15.2) gm/dl Hct 29.3 L (35.5-45.6) % Plt Count 187 (140-440) K/mm3 Comprehensive Metabolic Panel 07/31/19 Range/Units 08:10 Sodium 146 H (137-145) mmol/L Potassium 3.8 (3.6-5.0) mmol/L Chloride 110.2 H (98-107) mmol/L Carbon Dioxide 27 (22-30) mmol/L BUN 22 H (9-20) mg/dL Creatinine 0.7 L (0.8-1.5) mg/dL Glucose 102 H (75-100) mg/dL Calcium 8.3 L (8.4-10.2) mg/dL - Imaging and Cardiology EKG: report reviewed, image reviewed Stress echo: report reviewed, image reviewed Echo: report reviewed ( EF 25-30%, LV mildly dilated, impaired relaxation, trivial pericardial effusion, mod pleural effusion. ) - EKG Sinus rhythms and dysrhythmias: sinus tachycardia
--- NOTE | 2019-07-31 13:34 | Progress Note ---
Assessment and Plan Cultures: 07/21/2019 blood culture: No growth 07/30/2019 urine culture: no growth A/P: 19-year-old male with Down syndrome admitted with severe constipation and fecal impaction: 1) Septic shock: resolved. intra-abdominal source. s/p ex-lap on 07/23/2019, findings of multiple distinct areas of necrosis on transverse colon. Rest of intestines were normal. Gen. Surg following (see #3). 2) Acute renal failure: resolved. Creatinine normal. Dose adjust abx accordingly. 3) Fecal impaction, colonic distention with necrosis and shock: s/p ex-lap on 07/23/2019, findings of multiple distinct areas of necrosis on transverse colon. rest of intestines were normal. Gen. Surg following, s/p washout on 07/26/2019 along with abdominal colectomy with ileosigmoid anastomosis, open abdomen. Unde rwent abdominal closure on 07/28/2019. 4) Acute respiratory failure: extubated 07/31/2019. Recs: Extubated today. Drowsy, given new fever, will continue IV Cefepime, Flagyl, Fluconazole monitor fever and WBC count Meghan Williamson MD, FACP [facility] ([facility] C: [phone] O: [phone] F: [phone] Subjective Date of service: 07/31/19 Principal diagnosis: Respiratory Failure Interval history: Patient was extubated today. RN informed me of a new fever of 101F. Appears drow sy, on venti mask. Objective - Exam Narrative Exam: Physical Exam: Constitutional: drowsy, on venti mask Head, Ears, Nose: Normocephalic, atraumatic. External ears, nose normal Eyes: Conjunctivae/corneas clear. No icterus. No ptosis. Neck: supple, no meningeal signs Cardiovascular: S1, S2 normal. Respiratory: Good air entry, clear to auscultation bilaterally GI: soft, midline dressing +, drain +, bowel sounds hypo. Mcpherson + Musculoskeletal: No pedal edema, no cyanosis. Skin: No rash or abscess Hem/Lymphatic: No palpable cervical or supraclavicular nodes. No lymphangitis Psych: drowsy, no agitation Neurological: drowsy, exam limited - Constitutional Vitals: Vital Signs Temp Pulse Resp BP Pulse Ox 98.8 F 127 H 22 134/51 91 07/31/19 08:00 07/31/19 13:00 07/31/19 13:00 07/31/19 13:00 07/31/19 13:00 Temperature -Last 24 Hours Temperature 98.8 F Temperature 99.1 F Temperature 99.1 F Temperature 99.1 F Temperature 99.1 F Temperature 98.7 F - Labs CBC & Chem 7: 07/31/19 08:10 07/31/19 08:10 Labs: Abnormal lab results 07/30/19 07/31/19 07/31/19 Range/Units 12:17 04:42 08:10 WBC 15.4 H (4.5-11.0) K/mm3 RBC 3.11 L (3.65-5.03) M/mm3 Hgb 9.8 L (11.8-15.2) gm/dl Hct 29.3 L (35.5-45.6) % RDW 15.8 H (13.2-15.2) % Seg Neuts % (Manual) 81.0 H (40.0-70.0) % Lymphocytes % (Manual) 10.0 L (13.4-35.0) % Seg Neutrophils # Man 12.5 H (1.8-7.7) K/mm3 ABG Hemoglobin 10.1 L (14.0-18.0) gm/dl Oxyhemoglobin 94.8 L (95.0-99.0) % Sodium (137-145) mmol/L Chloride (98-107) mmol/L BUN (9-20) mg/dL Creatinine (0.8-1.5) mg/dL Glucose (75-100) mg/dL POC Glucose 107 H (70-105) Calcium (8.4-10.2) mg/dL 07/31/19 Range/Units 08:10 WBC (4.5-11.0) K/mm3 RBC (3.65-5.03) M/mm3 Hgb (11.8-15.2) gm/dl Hct (35.5-45.6) % RDW (13.2-15.2) % Seg Neuts % (Manual) (40.0-70.0) % Lymphocytes % (Manual) (13.4-35.0) % Seg Neutrophils # Man (1.8-7.7) K/mm3 ABG Hemoglobin (14.0-18.0) gm/dl Oxyhemoglobin (95.0-99.0) % Sodium 146 H (137-145) mmol/L Chloride 110.2 H (98-107) mmol/L BUN 22 H (9-20) mg/dL Creatinine 0.7 L (0.8-1.5) mg/dL Glucose 102 H (75-100) mg/dL POC Glucose (70-105) Calcium 8.3 L (8.4-10.2) mg/dL
--- NOTE | 2019-07-31 15:42 | Progress Note ---
Assessment and Plan Assessment and plan: Patient is 19 yo with Downs syndrome from [facility]. he initially presented with abdominal pain, nausea and vomiting. he was seen and examined in ED. CT Abd showed severe constipation. he was given Fleets enema, admitted. His BMP was WNL. By next day Cr was 2.2 and he had hyperkalemia of 5.3. Repeat hrs later showed worse Cr 2.2 and Potassium went up to 6.0. and he had developed shortness of breath, desaturation so was transferred to ICU. 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 Hold any tube feeds for now. Would ideally like to see resumption of bowel function prior to starting tube feeds." Septic shock: intra-abdominal source. s/p ex-lap on 07/23/2019, Per surgery findings of multiple distinct areas of necrosis on transverse colon. Rest of intestines were normal. IV Cefepime, Flagyl, Fluconazole Discontinued femoral Line [place] due to ATN-Resolved Nephrology following Cardiomyopathy -Cardiology following, Ischemic work up when more stable V/Q scan when more stable lactic acidosis Secondary to ischemic Bowel Hyperkalemia-RESOLVED Gave calcium Carbonate Insulin/Dextrose discussed with Dr. West severe constipation resolved, now has diarrhea due to laxatives Severe diarrhea due to laxatives after presenting with constipation-Now resolved Thrombocytopenia Continue to monitor Sinus tachycardia due to dehydration Downs syndrome supportive care full code status Prognosis guarded Mother updated The high probability of a clinically significant, sudden or life threatening deterioration of the [renal, GI,] system(s) required my full and direct attention, intervention and personal management. The aggregate critical care time was [35] minutes. This time is in addition to time spent performing reported procedures but includes the following: [x] Data Review and interpretation [x] Patient assessment and monitoring of vital signs [x] Documentation [x] Medication orders and management History Interval history: Patient was seen and evaluated this morning, patient was sedated. Hospitalist Physical - Physical exam Narrative exam: Patient is intubated and sedated. The patient appeared well nourished and normally developed. Vital signs as documented. Head exam is unremarkable. No scleral icterus . Neck is without jugular venous distension, thyromegaly, or carotid bruits. Lungs are clear to auscultation. Cardiac exam reveals regular rate and Rhythm. Abdominal exam reveals normal bowel sounds. Extremities are nonedematous and both femoral and pedal pulses are normal. 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 - Constitutional Vitals: Temp Pulse Resp BP Pulse Ox 100.6 F H 119 H 15 147/53 91 07/31/19 13:30 07/31/19 15:00 07/31/19 15:00 07/31/19 15:00 07/31/19 15:00 General appearance: Present: no acute distress, well-nourished Results - Labs CBC & Chem 7: 07/31/19 08:10 07/31/19 08:10 Labs: Laboratory Last Values WBC 15.4 K/mm3 (4.5-11.0) H 07/31/19 08:10 RBC 3.11 M/mm3 (3.65-5.03) L 07/31/19 08:10 Hgb 9.8 gm/dl (11.8-15.2) L 07/31/19 08:10 Hct 29.3 % (35.5-45.6) L 07/31/19 08:10 MCV 94 fl (84-94) 07/31/19 08:10 MCH 31 pg (28-32) 07/31/19 08:10 MCHC 33 % (32-34) 07/31/19 08:10 RDW 15.8 % (13.2-15.2) H 07/31/19 08:10 Plt Count 187 K/mm3 (140-440) 07/31/19 08:10 Lymph % (Auto) 7.2 % (13.4-35.0) L 07/21/19 19:02 [place] % (Auto) [employer] 07/27/19 05:00 Eos % (Auto) 0.1 % (0.0-4.3) 07/21/19 19:02 Baso % (Auto) 0.3 % (0.0-1.8) 07/21/19 19:02 Lymph # 0.9 K/mm3 (1.2-5.4) L 07/21/19 19:02 [place] # 1.2 K/mm3 (0.0-0.8) H 07/21/19 19:02 Eos # 0.0 K/mm3 (0.0-0.4) 07/21/19 19:02 Baso # 0.0 K/mm3 (0.0-0.1) 07/21/19 19:02 Add Manual Diff Complete 07/31/19 08:10 Total Counted 100 07/31/19 08:10 Seg Neutrophils % 82.8 % (40.0-70.0) H 07/21/19 19:02 Seg Neuts % (Manual) 81.0 % (40.0-70.0) H 07/31/19 08:10 Band Neutrophils % 0 % 07/31/19 08:10 Lymphocytes % (Manual) 10.0 % (13.4-35.0) L 07/31/19 08:10 Reactive Lymphs % (Man) 0 % 07/31/19 08:10 Monocytes % (Manual) 2.0 % (0.0-7.3) 07/31/19 08:10 Eosinophils % (Manual) 0 % (0.0-4.3) 07/31/19 08:10 Basophils % (Manual) 0 % (0.0-1.8) 07/31/19 08:10 Metamyelocytes % 7.0 % 07/31/19 08:10 Myelocytes % 0 % 07/31/19 08:10 Promyelocytes % 0 % 07/31/19 08:10 Blast Cells % 0 % 07/31/19 08:10 Nucleated RBC % Not Reportable 07/31/19 08:10 Seg Neutrophils # 10.0 K/mm3 (1.8-7.7) H 07/21/19 19:02 Seg Neutrophils # Man 12.5 K/mm3 (1.8-7.7) H 07/31/19 08:10 Band Neutrophils # 0.0 K/mm3 07/31/19 08:10 Lymphocytes # (Manual) 1.5 K/mm3 (1.2-5.4) 07/31/19 08:10 Abs React Lymphs (Man) 0.0 K/mm3 07/31/19 08:10 Monocytes # (Manual) 0.3 K/mm3 (0.0-0.8) 07/31/19 08:10 Eosinophils # (Manual) 0.0 K/mm3 (0.0-0.4) 07/31/19 08:10 Basophils # (Manual) 0.0 K/mm3 (0.0-0.1) 07/31/19 08:10 Metamyelocytes # 1.1 K/mm3 07/31/19 08:10 Myelocytes # 0.0 K/mm3 07/31/19 08:10 Promyelocytes # 0.0 K/mm3 07/31/19 08:10 Blast Cells # 0.0 K/mm3 07/31/19 08:10 WBC Morphology Not Reportable 07/31/19 08:10 Hypersegmented Neuts Not Reportable 07/31/19 08:10 Hyposegmented Neuts Not Reportable 07/31/19 08:10 Hypogranular Neuts Not Reportable 07/31/19 08:10 Smudge Cells Not Reportable 07/31/19 08:10 Toxic Granulation Not Reportable 07/31/19 08:10 Toxic Vacuolation Not Reportable 07/31/19 08:10 Dohle Bodies Not Reportable 07/31/19 08:10 Pelger-Huet Anomaly Not Reportable 07/31/19 08:10 Alea Rods Not Reportable 07/31/19 08:10 Platelet Estimate Consistent w auto 07/31/19 08:10 Clumped Platelets Not Reportable 07/31/19 08:10 Plt Clumps, EDTA Not Reportable 07/31/19 08:10 Large Platelets Not Reportable 07/31/19 08:10 Giant Platelets Not Reportable 07/31/19 08:10 Platelet Satelliting Not Reportable 07/31/19 08:10 Plt Morphology Comment Not Reportable 07/31/19 08:10 RBC Morphology Not Reportable 07/31/19 08:10 Dimorphic RBCs Not Reportable 07/31/19 08:10 Polychromasia Not Reportable 07/31/19 08:10 Hypochromasia Not Reportable 07/31/19 08:10 Poikilocytosis Not Reportable 07/31/19 08:10 Anisocytosis Few 07/31/19 08:10 Microcytosis Not Reportable 07/31/19 08:10 Macrocytosis Not Reportable 07/31/19 08:10 Spherocytes Not Reportable 07/31/19 08:10 Pappenheimer Bodies Not Reportable 07/31/19 08:10 Sickle Cells Not Reportable 07/31/19 08:10 Target Cells Not Reportable 07/31/19 08:10 Tear Drop Cells Not Reportable 07/31/19 08:10 Ovalocytes Not Reportable 07/31/19 08:10 Helmet Cells Not Reportable 07/31/19 08:10 [place] Bodies Not Reportable 07/31/19 08:10 [place] Rings Not Reportable 07/31/19 08:10 [place] Cells Not Reportable 07/31/19 08:10 Bite Cells Not Reportable 07/31/19 08:10 Crenated Cell Not Reportable 07/31/19 08:10 Elliptocytes Not Reportable 07/31/19 08:10 Acanthocytes (Spur) Not Reportable 07/31/19 08:10 Rouleaux Not Reportable 07/31/19 08:10 Hemoglobin C Crystals Not Reportable 07/31/19 08:10 Schistocytes Not Reportable 07/31/19 08:10 Malaria parasites Not Reportable 07/31/19 08:10 Emanuel Bodies Not Reportable 07/31/19 08:10 Hem Pathologist Commnt No 07/31/19 08:10 D-Dimer 886.89 ng/mlDDU (0-234) H 07/22/19 21:45 Heparin Anti-Xa, Unfract Negative (Negative) 07/24/19 09:18 POC ABG pH 7.344 (7.35-7.45) L 07/30/19 05:23 ABG pH 7.406 pH Units (7.350-7.450) 07/31/19 04:42 POC ABG pCO2 48.8 (35-45) H 07/30/19 05:23 ABG pCO2 42.4 mm Hg 07/31/19 04:42 POC ABG pO2 77 (80-105) L 07/30/19 05:23 ABG pO2 85.1 mm Hg (80.0-90.0) 07/31/19 04:42 POC ABG HCO3 26.6 (22-26 mml/L) 07/30/19 05:23 ABG HCO3 26.0 mmol/L (20.0-26.0) 07/31/19 04:42 POC ABG Total CO2 28 (23-27mmol/L) 07/30/19 05:23 POC ABG O2 Sat 94 07/30/19 05:23 ABG O2 Saturation 96.7 % (95.0-99.0) 07/31/19 04:42 ABG O2 Content 13.6 (0.0-44) 07/31/19 04:42 POC ABG Base Excess 1 ((-2) - (+3)mmol/L) 07/30/19 05:23 ABG Base Excess 1.2 mmol/L (-2.0-3.0) 07/31/19 04:42 ABG Hemoglobin 10.1 gm/dl (14.0-18.0) L 07/31/19 04:42 ABG Carboxyhemoglobin 1.5 % (0.0-5.0) 07/31/19 04:42 ABG Methemoglobin 0.4 % (0.0-1.5) 07/31/19 04:42 Oxyhemoglobin 94.8 % (95.0-99.0) L 07/31/19 04:42 FiO2 40 % 07/31/19 04:42 Sodium 146 mmol/L (137-145) H 07/31/19 08:10 Potassium 3.8 mmol/L (3.6-5.0) 07/31/19 08:10 Chloride 110.2 mmol/L (98-107) H 07/31/19 08:10 Carbon Dioxide 27 mmol/L (22-30) 07/31/19 08:10 Anion Gap 13 mmol/L 07/31/19 08:10 BUN 22 mg/dL (9-20) H 07/31/19 08:10 Creatinine 0.7 mg/dL (0.8-1.5) L 07/31/19 08:10 Estimated GFR > 60 ml/min 07/31/19 08:10 BUN/Creatinine Ratio 31 % 07/31/19 08:10 Glucose 102 mg/dL (75-100) H 07/31/19 08:10 POC Glucose 102 (70-105) 07/31/19 06:01 Lactic Acid 1.10 mmol/L (0.7-2.0) 07/25/19 09:16 Calcium 8.3 mg/dL (8.4-10.2) L 07/31/19 08:10 Phosphorus 4.30 mg/dL (2.5-4.5) 07/31/19 08:10 Magnesium 2.00 mg/dL (1.7-2.3) 07/31/19 08:10 Total Bilirubin 0.80 mg/dL (0.1-1.2) 07/28/19 04:12 Direct Bilirubin 0.2 mg/dL (0-0.2) 07/21/19 19:02 Indirect Bilirubin 0.4 mg/dL 07/21/19 19:02 AST 20 units/L (5-40) 07/28/19 04:12 ALT 19 units/L (7-56) 07/28/19 04:12 Alkaline Phosphatase 43 units/L (35-129) 07/28/19 04:12 Ammonia 39.0 umol/L (25-60) 07/23/19 02:50 Troponin T < 0.010 ng/mL (0.00-0.029) 07/22/19 15:33 NT-Pro-B Natriuret Pep 5407 pg/mL (0-450) H 07/22/19 21:45 Total Protein 4.2 g/dL (6.3-8.2) L D 07/28/19 04:12 Albumin 2.0 g/dL (3.9-5) L 07/28/19 04:12 Albumin/Globulin Ratio 0.9 % 07/28/19 04:12 Triglycerides 136 mg/dL (2-149) 07/30/19 04:46 Lipase 10 units/L (13-60) L 07/21/19 19:02 Serotonin Release Assay See scanned result 07/24/19 09:18 TSH 0.888 mlU/mL (0.270-4.200) 07/23/19 13:06 Free T4 1.04 ng/dL (0.76-1.46) 07/23/19 13:06 Urine Color Emy (Yellow) 07/30/19 11:30 Urine Turbidity Clear (Clear) 07/30/19 11:30 Urine pH 5.0 (5.0-7.0) 07/30/19 11:30 Ur Specific [place] 1.021 (1.003-1.030) 07/30/19 11:30 Urine Protein 30 mg/dl mg/dL (Negative) 07/30/19 11:30 Urine Glucose (UA) Neg mg/dL (Negative) 07/30/19 11:30 Urine Ketones Neg mg/dL (Negative) 07/30/19 11:30 Urine Blood Neg (Negative) 07/30/19 11:30 Urine Nitrite Neg (Negative) 07/30/19 11:30 Urine Bilirubin Neg (Negative) 07/30/19 11:30 Urine Ictotest Negative (Negative) 07/21/19 21:36 Urine Urobilinogen < 2.0 mg/dL (<2.0) 07/30/19 11:30 Ur Leukocyte Esterase Neg (Negative) 07/30/19 11:30 Urine WBC (Auto) 3.0 /HPF (0.0-6.0) 07/30/19 11:30 Urine RBC (Auto) 1.0 /HPF (0.0-6.0) 07/30/19 11:30 U Epithel Cells (Auto) < 1.0 /HPF (0-13.0) 07/30/19 11:30 Urine Mucus Few /HPF 07/30/19 11:30 Heparin-induced Plt Ab Negative (Negative) 07/24/19 09:18 UF Heparin High Dose 0 % Release 07/24/19 09:18 GIULIANA UFH Low Dose 0.1 1 % Release 07/24/19 09:18 GIULIANA UFH Low Dose 0.5 0 % Release 07/24/19 09:18 Hepatitis A IgM Ab Non-reactive (NonReactive) 07/23/19 13:06 Hep Bs Antigen Non-reactive (Negative) 07/23/19 13:06 Hep B Core IgM Ab Non-reactive (NonReactive) 07/23/19 13:06 Hepatitis C Antibody Non-reactive (NonReactive) 07/23/19 13:06 Blood Type A POSITIVE 07/28/19 04:12 Antibody Screen Negative 07/28/19 04:12 Active Medications - Current Medications Current Medications: Generic Name Dose Route Start Last Admin Trade Name Freq PRN Reason Stop Dose Admin Acetaminophen 650 mg 07/23/19 02:48 Tylenol OR Q4H PRN Fever >100.5 Enoxaparin Sodium 40 mg 07/27/19 10:00 07/31/19 09:40 Lovenox SUB-Q 40 mg DAILY STEPHEN Administration Famotidine 20 mg 07/24/19 10:00 07/31/19 09:40 Pepcid IV 20 mg BID STEPHEN Administration Furosemide 20 mg 07/29/19 18:00 07/31/19 05:37 Lasix IV 20 mg 0600,1800 STEPHEN Administration Phenylephrine HCl 100 mg/ 100 mls @ 3 mls/hr 07/23/19 02:45 07/24/19 21:31 Sodium Chloride IV 0 mcg/min TITR STEPHEN 0 mls/hr Titration Protocol 50 MCG/MIN Vasopressin 20 unit/ Sodium 101 mls @ 9.09 mls/hr 07/23/19 10:00 07/25/19 09:44 Chloride IV Infused TITR STEPHEN Titration Protocol 0.03 UNITS/MIN Norepinephrine 8 mg/ Sodium 250 mls @ 3.75 mls/hr 07/23/19 12:00 07/23/19 13:08 Chloride IV 0 mcg/min TITR STEPHEN 0 mls/hr Titration Protocol 2 MCG/MIN Fentanyl Citrate 2,000 mcg in 100 mls @ 5.557 mls/hr 07/23/19 12:00 07/31/19 10:34 Fentanyl Drip Premix IV 0 mcg/kg/hr TITR STEPHEN 0 mls/hr Titration Protocol 1 MCG/KG/HR Cefepime HCl 2 gm in 100 mls @ 200 mls/hr 07/23/19 16:00 07/31/19 03:19 Maxipime/Ns 2 Gm/100 Ml IV 200 mls/hr Q12H STEPHEN Administration Protocol Metronidazole 500 mg in 100 mls @ 100 mls/hr 07/23/19 16:00 07/31/19 13:46 Flagyl 500 Mg/100 Ml IV 100 mls/hr Q8HR STEPHEN Administration Protocol Valproate Sodium 500 mg/ 105 mls @ 100 mls/hr 07/24/19 10:00 07/31/19 09:41 Sodium Chloride IV 100 mls/hr Q12HR STEPHEN Administration Fluconazole 200 mls @ 100 mls/hr 07/26/19 15:00 07/31/19 09:46 Diflucan IV 100 mls/hr Q24HR STEPHEN Administration Protocol Propofol 1,000 mg in 100 mls @ 4.353 mls/hr 07/26/19 23:00 07/31/19 10:34 Diprivan 10 Mg/Ml IV 0 mcg/kg/min TITR STEPHEN 0 mls/hr Titration Protocol 5 MCG/KG/MIN Amino Acids/Electrolytes/Dextrose 2,016 mls @ 84 mls/hr 07/30/19 20:00 07/30/19 20:00 Tpn Adult IV 07/31/19 19:59 84 mls/hr DAILY@1999 STEPHEN Administration Protocol Amino Acids/Electrolytes/Dextrose 2,016 mls @ 84 mls/hr 07/31/19 20:00 Tpn Adult IV 08/01/19 19:59 DAILY@1999 [facility] Protocol Ondansetron HCl 4 mg 07/21/19 22:25 07/22/19 01:07 Zofran IV 4 mg Q8H PRN Administration Nausea And Vomiting Nutrition/Malnutrition Assess - Dietary Evaluation Nutrition/Malnutrition Findings: Nutrition Notes Start: 07/23/19 10:09 Freq: Status: Active Protocol: Document 07/31/19 13:38 KS (Rec: 07/31/19 14:03 KS [id number]) Co-Sign 07/31/19 13:38 LM Nutrition Notes Initial or Follow up Reassessment Current Diagnosis Acute Kidney Injury Other Pertinent Diagnosis Necrosis of transverse colon, down syndrome Current Diet NPO Labs/Tests Na 146 Cl 110.2 BUN 22 CR 0.7 Glu 102 Ca 8.3 Pertinent Medications Proprofol at 4.353 ml/hr (115 kcal/day Lasix Height 5 ft 7 in Weight 147.2 kg [place] Body Weight (kg) 67.27 BMI 50.8 Weight change and time frame Wt corrected Subjective/Other Information Pt has PICC line. CPN day 5. Percent of energy/protein needs met: 43%/74% Burn Absent Trauma Absent GI Symptoms Nausea,Vomiting,Constipation Minimum of two criteria No physical signs of malnutrition #1 Nutrition Diagnosis Inadequate oral intake Diagnosis Progress(for reassessment Continues documentation) Is patient on ventilator? Yes Is Patient Ambulatory and/or Out of Bed No REE-([facility]-confined to bed) 2922.996 Kcal/Kg value to use for calculation 14 Approximate Energy Requirements Using 2061 kcal/Kg Calculation Used for Recommendations Kcal/kg Additional Notes Pro needs 2g/kg IBW: 135g/day Fluid needs 1ml/kcal Nutrition Intervention Change Diet Order: CPN Nutrition Support: Continue CPN at 84mL/hr: 0 mEq Na, AA 6.0%, Dextrose 10%, MVI, MTE Kcal 1,160 Protein (gm) 120 Carbohydrates (gm) 200 Fat (gm) 0 Fluid (mL) 2,016 Fiber (gm) 0 Goal #1 Meet kcal/PRO as best as possible with CPN Anticipated Discharge Needs: Unable to identify at this time Follow-Up By: 08/01/19 Additional Comments Follow for labs in AM: BMP, Mg , Phos
[2019-07-31] MEDS: ACETAMINOPHEN 650 MG RECT SUPP PR PRN (18:11)
[2019-07-31] MEDS: TOTAL PARENTERAL NUTRITION 2,016 ML IV SCH (19:34)
--- NOTE | 2019-07-31 20:03 | Progress Note ---
Assessment and Plan 1. Acute kidney injury: Vasomotor [place] in the setting of volume depletion. Patient was dialyzed once on due to hyperkalemia. Renal function is better. Monitor renal function. Avoid nephrotoxic agents. Meds dosage based on GFR. 2. FEN: Hyperkalemia, improved after hemodialysis. Metabolic acidosis, improved. Hypernatremia, improving. Patient is on TPN. Monitor lytes. 3. Hypotension: Improved. 4. Ischemic Colon: S/p Ex Lap and partial Colon Resection. S/p abd wall closure. Followed by Gen. Surgery. 5. Respiratory failure: S/p extubated. 6. Sepsis: Resolved. 7. Sinus tachycardia: Improved. Will sign off and see patient if needed. Examination: General appearance: well-developed, well-nourished, appears stated age, obese, on VM O2, on restrains HEENT: [place], [place] Neck: neck supple, trachea midline Respiratory: Clear to Ascultation Heart: regular, S1S2, no murmur Gastrointestinal: obese, dressing noted Integumentary: no rash, warm and dry : Mcpherson catheter Neurologic: stuporous, appears agitated Musculoskeletal: no deformity Ext: No edema Subjective Date of service: 07/31/19 Principal diagnosis: Respiratory Failure Interval history: Patient was seen and examined at the bedside. Objective - Vital Signs Vital signs: Vital Signs - 12hr 07/31/19 07/31/19 07/31/19 08:30 08:31 09:00 Temperature Pulse Rate 74 61 Pulse Rate [ From Monitor] Respiratory 16 17 Rate Respiratory Rate [Medial Abdomen] Blood Pressure 117/51 117/51 118/50 O2 Sat by Pulse 95 96 98 Oximetry 07/31/19 07/31/19 07/31/19 09:30 10:00 10:30 Temperature Pulse Rate 59 L 56 L 56 L Pulse Rate [ From Monitor] Respiratory 18 18 18 Rate Respiratory Rate [Medial Abdomen] Blood Pressure 120/50 117/49 117/49 O2 Sat by Pulse 98 98 99 Oximetry 07/31/19 07/31/19 07/31/19 11:00 11:30 12:00 Temperature 101.2 F H Pulse Rate 85 88 108 H Pulse Rate [ 119 H From Monitor] Respiratory 14 22 16 Rate Respiratory 16 Rate [Medial Abdomen] Blood Pressure 138/64 153/60 141/51 O2 Sat by Pulse 95 88 92 Oximetry 07/31/19 07/31/19 07/31/19 12:01 12:30 13:00 Temperature Pulse Rate 121 H 127 H Pulse Rate [ From Monitor] Respiratory 16 22 Rate Respiratory Rate [Medial Abdomen] Blood Pressure 134/54 134/51 O2 Sat by Pulse 94 93 91 Oximetry 07/31/19 07/31/19 07/31/19 13:30 14:00 14:30 Temperature 100.6 F H Pulse Rate 114 H 123 H 120 H Pulse Rate [ From Monitor] Respiratory 14 15 14 Rate Respiratory Rate [Medial Abdomen] Blood Pressure 144/60 149/66 152/62 O2 Sat by Pulse 88 94 89 Oximetry 07/31/19 07/31/19 07/31/19 15:00 15:30 16:00 Temperature 101.9 F H Pulse Rate 119 H 126 H 127 H Pulse Rate [ 133 H From Monitor] Respiratory 15 19 14 Rate Respiratory 16 Rate [Medial Abdomen] Blood Pressure 147/53 147/53 147/53 O2 Sat by Pulse 91 87 86 Oximetry 07/31/19 07/31/19 07/31/19 16:30 17:00 17:30 Temperature Pulse Rate 121 H 111 H 129 H Pulse Rate [ From Monitor] Respiratory 13 10 L 16 Rate Respiratory Rate [Medial Abdomen] Blood Pressure 87/64 124/52 124/52 O2 Sat by Pulse 88 92 88 Oximetry 07/31/19 07/31/19 07/31/19 17:36 18:00 18:11 Temperature Pulse Rate 107 H Pulse Rate [ From Monitor] Respiratory 12 12 Rate Respiratory Rate [Medial Abdomen] Blood Pressure 124/52 O2 Sat by Pulse 90 89 Oximetry 07/31/19 18:31 Temperature Pulse Rate 133 H Pulse Rate [ From Monitor] Respiratory 16 Rate Respiratory Rate [Medial Abdomen] Blood Pressure O2 Sat by Pulse 90 Oximetry - Lab 07/31/19 08:10 07/31/19 08:10 Most recent lab results ABG pH 7.406 pH Units (7.350-7.450) 07/31/19 04:42 ABG pCO2 42.4 mm Hg 07/31/19 04:42 ABG pO2 85.1 mm Hg (80.0-90.0) 07/31/19 04:42 ABG HCO3 26.0 mmol/L (20.0-26.0) 07/31/19 04:42 ABG O2 Saturation 96.7 % (95.0-99.0) 07/31/19 04:42 Calcium 8.3 mg/dL (8.4-10.2) L 07/31/19 08:10 Phosphorus 4.30 mg/dL (2.5-4.5) 07/31/19 08:10 Magnesium 2.00 mg/dL (1.7-2.3) 07/31/19 08:10 Medications & Allergies - Medications Allergies/Adverse Reactions: Allergies No Known Allergies Allergy (Verified 10/20/15 03:43) Home Medications: Home Medications Medication Instructions Recorded Confirmed Last Taken Type Benztropine [Cogentin] 0.5 mg PO QHS 05/17/19 07/24/19 Unknown History Divalproex ER [Depakote ER] 500 mg PO BID 05/17/19 07/24/19 Unknown History clonazePAM [KlonoPIN] 2 mg PO BID 05/17/19 07/24/19 Unknown History traZODone [Desyrel] 100 mg PO HS 06/05/19 07/24/19 Unknown History Divalproex ER [Depakote ER] 500 mg PO BID tablet 06/06/19 07/24/19 Unknown Rx Lactulose 10 gm PO DAILY PRN #150 ml 07/21/19 Unknown Rx Active Medications: Generic Name Dose Route Start Last Admin Trade Name Freq PRN Reason Stop Dose Admin Acetaminophen 650 mg 07/23/19 02:48 07/31/19 18:11 Tylenol VA 650 mg Q4H PRN Administration Fever >100.5 Enoxaparin Sodium 40 mg 07/27/19 10:00 07/31/19 09:40 Lovenox SUB-Q 40 mg DAILY STEPHEN Administration Famotidine 20 mg 07/24/19 10:00 07/31/19 09:40 Pepcid IV 20 mg BID STEPHEN Administration Furosemide 20 mg 07/29/19 18:00 07/31/19 18:21 Lasix IV 20 mg 0600,1800 STEPHEN Administration Haloperidol Lactate 5 mg 07/31/19 18:35 Haldol IV Q6H PRN Agitation Phenylephrine HCl 100 mg/ 100 mls @ 3 mls/hr 07/23/19 02:45 07/24/19 21:31 Sodium Chloride IV 0 mcg/min TITR STEPHEN 0 mls/hr Titration Protocol 50 MCG/MIN Vasopressin 20 unit/ Sodium 101 mls @ 9.09 mls/hr 07/23/19 10:00 07/25/19 09:44 Chloride IV Infused TITR STEPHEN Titration Protocol 0.03 UNITS/MIN Norepinephrine 8 mg/ Sodium 250 mls @ 3.75 mls/hr 07/23/19 12:00 07/23/19 13:08 Chloride IV 0 mcg/min TITR STEPHEN 0 mls/hr Titration Protocol 2 MCG/MIN Fentanyl Citrate 2,000 mcg in 100 mls @ 5.557 mls/hr 07/23/19 12:00 07/31/19 10:34 Fentanyl Drip Premix IV 0 mcg/kg/hr TITR STEPHEN 0 mls/hr Titration Protocol 1 MCG/KG/HR Cefepime HCl 2 gm in 100 mls @ 200 mls/hr 07/23/19 16:00 07/31/19 16:55 Maxipime/Ns 2 Gm/100 Ml IV 200 mls/hr Q12H STEPHEN Administration Protocol Metronidazole 500 mg in 100 mls @ 100 mls/hr 07/23/19 16:00 07/31/19 13:46 Flagyl 500 Mg/100 Ml IV 100 mls/hr Q8HR STEPHEN Administration Protocol Valproate Sodium 500 mg/ 105 mls @ 100 mls/hr 07/24/19 10:00 07/31/19 09:41 Sodium Chloride IV 100 mls/hr Q12HR STEPHEN Administration Fluconazole 200 mls @ 100 mls/hr 07/26/19 15:00 07/31/19 09:46 Diflucan IV 100 mls/hr Q24HR STEPHEN Administration Protocol Propofol 1,000 mg in 100 mls @ 4.353 mls/hr 07/26/19 23:00 07/31/19 10:34 Diprivan 10 Mg/Ml IV 0 mcg/kg/min TITR STEPHEN 0 mls/hr Titration Protocol 5 MCG/KG/MIN Amino Acids/Electrolytes/Dextrose 2,016 mls @ 84 mls/hr 07/31/19 20:00 07/31/19 19:34 Tpn Adult IV 08/01/19 19:59 84 mls/hr DAILY@2000 STEPHEN Administration Protocol Morphine Sulfate 2 mg 07/31/19 18:36 Morphine IV Q4H PRN Pain, Moderate (4-6) Ondansetron HCl 4 mg 10/12/19 22:25 07/22/19 01:07 Zofran IV 4 mg Q8H PRN Administration Nausea And Vomiting
[2019-07-31] MEDS: HALOPERIDOL LACTATE 5 MG/1 ML INJ IV PRN (20:45)
[2019-08-01] MEDS: MORPHINE 2 MG/1 ML INJ IV PRN ×4 (00:44→18:23)
[2019-08-01] MEDS: HALOPERIDOL LACTATE 5 MG/1 ML INJ IV PRN ×2 (02:56→16:27)
[2019-08-01] MEDS: CEFEPIME/NS 2 GM/100 ML 2 GM/100 ML BAG IV SCH ×2 (03:08→16:06)
[2019-08-01] MEDS: FUROSEMIDE 20 MG/2 ML INJ IV SCH ×2 (05:32→18:23)
[2019-08-01] MEDS: metroNIDAZOLE/NS 500 MG/100 ML 500 MG/100 ML BAG IV SCH ×3 (05:32→21:37)
[2019-08-01 06:02] LABS: Hematocrit 30.3 % (35.5-45.6); Hemoglobin 9.7 gm/dl (11.8-15.2); Mean Corpuscular HGB Conc 32 % (32-34); Mean Corpuscular Volume 97 fl (84-94); Platelet Count 197 K/mm3 (140-440); Red Blood Count 3.12 M/mm3 (3.65-5.03)
[2019-08-01 06:14] LABS: BUN/Creatinine Ratio 25; Blood Urea Nitrogen 28 mg/dL (9-20); Calcium 8.7 mg/dL (8.4-10.2); Hemolysis Index 4
--- NOTE | 2019-08-01 09:07 | Progress Note ---
Assessment and Plan - Patient Problems (1) Ischemic necrosis of large intestine Current Visit: Yes Status: Acute Plan to address problem: s/p ex-lap with partial colon resection (07/23) - POD#9; s/p abdominal colectomy with ileocolostomy (07/26) - POD#6; s/p abdominal reexploration, peritoneal lavage, closure of open abdomen, placement of URMILA drain (07/28) POD# 4 Plan: 1. neuro - seems more appropriate this AM. 2. CV - DVT ppx. Monitor CBC - higher today. 3. Resp - Left pleural effusion - new since last CXR on 07/23. Has congested cough as well. Probably component of atelectasis as well. 4. GI - NPO, TPN, NGT to LIWS. record URMILA output. Pt will likely have prolonged ileus, do not start TF until evidence of bowel function. GI ppx. Abdominal binder at all times to minimize risk of patient pulling at URMILA, incision, etc. With increasing WBC, have to worry about anastomotic compromise, especially 6 days out from main surgery. However, what possibly argues against it is that he is comfortable and has no pain, he is not septic (normal HR and BP this morning), the URMILA drain is serosang, and he does appear dry. Will have low threshold for return to OR. If he does worsen and he would lay still for a CT, that would be very helpful. 5. - lee for strict I/Os. May be removed and replaced with condom cath when ok with 1' service and nephro. UA ok. 6. ID - abx per ID 7. Endo - blood glucose monitoring per protocol 8. FEN - BMP daily, replace lytes as needed. TPN Dispo - ICU Will discuss with Dr. Ruiz. Thank you, please call with questions. Subjective Date of service: 08/01/19 Patient Reports: Positive: no bowel movement, other (agitated after extubation and overnight. Nurse reports that he is much better this morning. Denies abdominal pain on two separate checks. ) Objective Vital Signs - 12hr 07/31/19 07/31/19 07/31/19 21:01 21:30 22:00 Temperature Pulse Rate 102 H 95 H 100 H Pulse Rate [ From Monitor] Respiratory 27 H 9 L 13 Rate Respiratory Rate [Medial Abdomen] Blood Pressure 124/52 104/33 108/42 O2 Sat by Pulse 95 96 95 Oximetry 07/31/19 07/31/19 07/31/19 22:30 23:00 23:13 Temperature 99.9 F H Pulse Rate 89 94 H 91 H Pulse Rate [ From Monitor] Respiratory 13 15 Rate Respiratory Rate [Medial Abdomen] Blood Pressure 109/38 106/34 106/34 O2 Sat by Pulse 97 97 96 Oximetry 07/31/19 08/01/19 08/01/19 23:30 00:00 00:30 Temperature 99.6 F Pulse Rate 85 94 H 110 H Pulse Rate [ 88 From Monitor] Respiratory 12 12 18 Rate Respiratory 22 Rate [Medial Abdomen] Blood Pressure 117/42 108/40 113/42 O2 Sat by Pulse 98 97 98 Oximetry 08/01/19 08/01/19 08/01/19 00:44 01:00 01:30 Temperature Pulse Rate 89 88 Pulse Rate [ From Monitor] Respiratory 22 8 L 9 L Rate Respiratory Rate [Medial Abdomen] Blood Pressure 117/39 122/41 O2 Sat by Pulse 96 98 Oximetry 08/01/19 08/01/19 08/01/19 02:00 02:30 03:00 Temperature Pulse Rate 91 H 97 H 96 H Pulse Rate [ From Monitor] Respiratory 12 16 19 Rate Respiratory Rate [Medial Abdomen] Blood Pressure 117/44 129/53 128/61 O2 Sat by Pulse 98 97 97 Oximetry 08/01/19 08/01/19 08/01/19 03:30 04:00 04:03 Temperature 99.9 F H Pulse Rate 101 H 118 H Pulse Rate [ 118 H From Monitor] Respiratory 21 9 L Rate Respiratory Rate [Medial Abdomen] Blood Pressure 118/64 118/81 O2 Sat by Pulse 97 96 97 Oximetry 08/01/19 08/01/19 08/01/19 04:30 05:00 05:31 Temperature Pulse Rate 98 H 106 H 108 H Pulse Rate [ From Monitor] Respiratory 9 L 13 19 Rate Respiratory Rate [Medial Abdomen] Blood Pressure 120/41 118/49 118/49 O2 Sat by Pulse 97 97 98 Oximetry 08/01/19 08/01/19 08/01/19 06:00 07:47 07:57 Temperature 100.1 F H 100.1 F H Pulse Rate 86 Pulse Rate [ From Monitor] Respiratory 8 L Rate Respiratory Rate [Medial Abdomen] Blood Pressure 133/44 O2 Sat by Pulse 98 Oximetry - General physical appearance no distress, no pain, obese, other (seems to respond appropriate to questions. ) - Eyes deviation - Respiratory normal respiratory effort, other (congested cough) - Abdomen soft, not tender (denies pain when LLQ pressed), bowel sounds hypoactive (none), not distended, not guarding, not rigid, surgical scars (Incision intact. some serosang drainage. No pus. No erythema. ), other (URMILA with serosang drainage) - Integumentary no rash, no growths, no abnormal pigmentation - Labs 08/01/19 05:15 08/01/19 05:15 Diabetes panel 08/01/19 Range/Units 05:15 Sodium 149 H (137-145) mmol/L Potassium 4.6 D (3.6-5.0) mmol/L Chloride 112.0 H (98-107) mmol/L Carbon Dioxide 28 (22-30) mmol/L BUN 28 H (9-20) mg/dL Creatinine 1.1 D (0.8-1.5) mg/dL Glucose 96 (75-100) mg/dL Calcium 8.7 (8.4-10.2) mg/dL Calcium panel 08/01/19 Range/Units 05:15 Calcium 8.7 (8.4-10.2) mg/dL Phosphorus 5.60 H D (2.5-4.5) mg/dL Pituitary panel 08/01/19 Range/Units 05:15 Sodium 149 H (137-145) mmol/L Potassium 4.6 D (3.6-5.0) mmol/L Chloride 112.0 H (98-107) mmol/L Carbon Dioxide 28 (22-30) mmol/L BUN 28 H (9-20) mg/dL Creatinine 1.1 D (0.8-1.5) mg/dL Glucose 96 (75-100) mg/dL Calcium 8.7 (8.4-10.2) mg/dL Adrenal panel 08/01/19 Range/Units 05:15 Sodium 149 H (137-145) mmol/L Potassium 4.6 D (3.6-5.0) mmol/L Chloride 112.0 H (98-107) mmol/L Carbon Dioxide 28 (22-30) mmol/L BUN 28 H (9-20) mg/dL Creatinine 1.1 D (0.8-1.5) mg/dL Glucose 96 (75-100) mg/dL Calcium 8.7 (8.4-10.2) mg/dL
[2019-08-01] MEDS: VALPROATE SODIUM 500 MG in SODIUM CHLORIDE 0.9% 100 ML IV SCH ×2 (09:58→21:37)
[2019-08-01] MEDS: FLUCONAZOLE 400 MG 200 ML IV SCH (09:59)
[2019-08-01] MEDS: FAMOTIDINE 20 MG/2 ML INJ IV SCH ×2 (09:59→21:38)
[2019-08-01] MEDS: ENOXAPARIN 40 MG/0.4 ML INJ SUB-Q SCH (10:00)
--- NOTE | 2019-08-01 12:15 | Progress Note ---
Assessment and Plan 19 y/o male with acute respiratory failure s/p exploratory lap x 2 now on TPN, continuous NG suction and continued sedation. 1. Repeat CXR today. If spikes a temp, will repeat blood cultures. Long discussion with surgery and we both are in agreement that his abdomen does not appear to be in a surgical state. Will continue to look for other causes of fever. Given his mental state, not sure that he would understand the concept of Incentive spirometry. When mother comes may ask her if she can assistant women's soccer coach him through it. Hold off on percussive therapy as it may agitate him. Wean supportive oxygen for sats >88% 2. Spoke with surgery. Binder is for protective purposes only. Will keep in place but no indication for thora at this time. Follow up repeat CT 3. NG tube stays to continuous suction and will continue TPN CCT 31 minutes. Subjective Date of service: 08/01/19 Principal diagnosis: Respiratory Failure Interval history: Remains extubated. More awake and cooperative today. Received a few doses of haldol as well as morphine in the last 18 hours. Mother not at bedside. Did spike a temp on yesterday. But was not cultured. Currently on HFNC Objective Vital Signs - 12hr 08/01/19 08/01/19 08/01/19 00:30 00:44 01:00 Temperature Pulse Rate 110 H 89 Pulse Rate [ From Monitor] Respiratory 18 22 8 L Rate Respiratory Rate [Medial Abdomen] Blood Pressure 113/42 117/39 O2 Sat by Pulse 98 96 Oximetry 08/01/19 08/01/19 08/01/19 01:30 02:00 02:30 Temperature Pulse Rate 88 91 H 97 H Pulse Rate [ From Monitor] Respiratory 9 L 12 16 Rate Respiratory Rate [Medial Abdomen] Blood Pressure 122/41 117/44 129/53 O2 Sat by Pulse 98 98 97 Oximetry 08/01/19 08/01/19 08/01/19 03:00 03:30 04:00 Temperature 99.9 F H Pulse Rate 96 H 101 H 118 H Pulse Rate [ 118 H From Monitor] Respiratory 19 21 9 L Rate Respiratory Rate [Medial Abdomen] Blood Pressure 128/61 118/64 118/81 O2 Sat by Pulse 97 97 96 Oximetry 08/01/19 08/01/19 08/01/19 04:03 04:30 05:00 Temperature Pulse Rate 98 H 106 H Pulse Rate [ From Monitor] Respiratory 9 L 13 Rate Respiratory Rate [Medial Abdomen] Blood Pressure 120/41 118/49 O2 Sat by Pulse 97 97 97 Oximetry 08/01/19 08/01/19 08/01/19 05:31 06:00 06:31 Temperature Pulse Rate 108 H 86 116 H Pulse Rate [ From Monitor] Respiratory 19 8 L 22 Rate Respiratory Rate [Medial Abdomen] Blood Pressure 118/49 133/44 133/44 O2 Sat by Pulse 98 98 98 Oximetry 08/01/19 08/01/19 08/01/19 07:00 07:30 07:47 Temperature 100.1 F H Pulse Rate 92 H 89 Pulse Rate [ From Monitor] Respiratory 14 9 L Rate Respiratory Rate [Medial Abdomen] Blood Pressure 112/51 110/51 O2 Sat by Pulse 97 99 Oximetry 08/01/19 08/01/19 08/01/19 07:57 08:00 08:31 Temperature 100.1 F H Pulse Rate 90 99 H Pulse Rate [ 91 H From Monitor] Respiratory 9 L 14 Rate Respiratory 18 Rate [Medial Abdomen] Blood Pressure 126/55 137/77 O2 Sat by Pulse 100 99 Oximetry 08/01/19 08/01/19 08/01/19 09:00 09:03 11:30 Temperature Pulse Rate 84 Pulse Rate [ From Monitor] Respiratory 13 Rate Respiratory Rate [Medial Abdomen] Blood Pressure 125/75 O2 Sat by Pulse 99 100 96 Oximetry 08/01/19 12:00 Temperature 101.1 F H Pulse Rate Pulse Rate [ From Monitor] Respiratory Rate Respiratory Rate [Medial Abdomen] Blood Pressure O2 Sat by Pulse Oximetry Constitutional: no acute distress, other (obese, sedated, critically ill on ventilator) Eyes: non-icteric ENT: oropharynx moist Neck: supple Effort: normal Ascultation: Bilateral: diminished breath sounds (due to obesity) Cardiovascular: regular rate and rhythm Gastrointestinal: normoactive bowel sounds, soft, other (morbidly obese abd) Integumentary: normal Extremities: no cyanosis, no edema, pink and warm Neurologic: normal mental status, non-focal exam, pupils equal and round, other (on vent) Psychiatric: mood appropriate, affect normal CBC and BMP: 08/01/19 05:15 08/01/19 05:15 ABG, PT/INR, D-dimer: ABG POC ABG pH 7.344 (7.35-7.45) L 07/30/19 05:23 ABG pH 7.406 pH Units (7.350-7.450) 07/31/19 04:42 POC ABG pCO2 48.8 (35-45) H 07/30/19 05:23 ABG pCO2 42.4 mm Hg 07/31/19 04:42 POC ABG pO2 77 (80-105) L 07/30/19 05:23 ABG pO2 85.1 mm Hg (80.0-90.0) 07/31/19 04:42 POC ABG HCO3 26.6 (22-26 mml/L) 07/30/19 05:23 POC ABG Total CO2 28 (23-27mmol/L) 07/30/19 05:23 POC ABG O2 Sat 94 07/30/19 05:23 ABG O2 Saturation 96.7 % (95.0-99.0) 07/31/19 04:42 PT/INR, D-dimer D-Dimer 886.89 ng/mlDDU (0-234) H 07/22/19 21:45 Abnormal lab findings: Abnormal Labs 07/21/19 07/21/19 07/22/19 19:02 19:02 10:50 WBC 12.1 H 13.7 H RBC 5.56 H Hgb 17.1 H Hct 52.9 H D MCV 95 H 95 H RDW Plt Count 130 L 137 L Lymph % (Auto) 7.2 L [place] % (Auto) 9.6 H Lymph # 0.9 L Geary # 1.2 H Seg Neutrophils % 82.8 H Seg Neuts % (Manual) Lymphocytes % (Manual) Monocytes % (Manual) Nucleated RBC % Seg Neutrophils # 10.0 H Seg Neutrophils # Man Lymphocytes # (Manual) Monocytes # (Manual) D-Dimer POC ABG pH ABG pH POC ABG pCO2 POC ABG pO2 ABG pO2 ABG O2 Saturation ABG Hemoglobin Oxyhemoglobin Sodium 136 L Potassium Chloride 95.9 L Carbon Dioxide BUN Creatinine Glucose 163 H POC Glucose Lactic Acid Calcium Phosphorus Magnesium Total Bilirubin AST NT-Pro-B Natriuret Pep Total Protein Albumin Lipase 10 L 07/22/19 07/22/19 07/22/19 10:50 15:33 15:33 WBC 13.1 H RBC 5.10 H Hgb 15.9 H Hct 49.0 H MCV 96 H RDW Plt Count 127 L Lymph % (Auto) [place] % (Auto) Lymph # [place] # Seg Neutrophils % Seg Neuts % (Manual) Lymphocytes % (Manual) Monocytes % (Manual) Nucleated RBC % Seg Neutrophils # Seg Neutrophils # Man Lymphocytes # (Manual) Monocytes # (Manual) D-Dimer POC ABG pH ABG pH POC ABG pCO2 POC ABG pO2 ABG pO2 ABG O2 Saturation ABG Hemoglobin Oxyhemoglobin Sodium 136 L Potassium 5.3 H D 6.0 H Chloride 96.7 L Carbon Dioxide 17 L BUN 22 H 29 H Creatinine 2.0 H D 2.2 H Glucose 129 H 121 H POC Glucose Lactic Acid Calcium 8.2 L Phosphorus 4.70 H Magnesium 3.10 H Total Bilirubin AST NT-Pro-B Natriuret Pep Total Protein Albumin Lipase 07/22/19 07/22/19 07/22/19 18:19 18:42 21:45 WBC RBC Hgb Hct MCV RDW Plt Count Lymph % (Auto) [place] % (Auto) Lymph # [place] # Seg Neutrophils % Seg Neuts % (Manual) Lymphocytes % (Manual) Monocytes % (Manual) Nucleated RBC % Seg Neutrophils # Seg Neutrophils # Man Lymphocytes # (Manual) Monocytes # (Manual) D-Dimer 886.89 H POC ABG pH 7.197 L ABG pH POC ABG pCO2 45.2 H POC ABG pO2 ABG pO2 ABG O2 Saturation ABG Hemoglobin Oxyhemoglobin Sodium Potassium Chloride Carbon Dioxide BUN Creatinine Glucose POC Glucose 107 H Lactic Acid Calcium Phosphorus Magnesium Total Bilirubin AST NT-Pro-B Natriuret Pep Total Protein Albumin Lipase 07/22/19 07/22/19 07/22/19 21:45 21:45 21:45 WBC RBC Hgb Hct MCV RDW Plt Count Lymph % (Auto) [place] % (Auto) Lymph # [place] # Seg Neutrophils % Seg Neuts % (Manual) Lymphocytes % (Manual) Monocytes % (Manual) Nucleated RBC % Seg Neutrophils # Seg Neutrophils # Man Lymphocytes # (Manual) Monocytes # (Manual) D-Dimer POC ABG pH ABG pH POC ABG pCO2 POC ABG pO2 ABG pO2 ABG O2 Saturation ABG Hemoglobin Oxyhemoglobin Sodium 136 L Potassium 5.6 H Chloride Carbon Dioxide 20 L BUN 38 H Creatinine 2.6 H Glucose 63 L POC Glucose Lactic Acid 3.10 H* Calcium 8.2 L Phosphorus Magnesium Total Bilirubin AST NT-Pro-B Natriuret Pep 5407 H Total Protein Albumin Lipase 07/23/19 07/23/19 07/23/19 02:11 02:50 02:50 WBC 15.0 H RBC Hgb Hct MCV 95 H RDW Plt Count 118 L Lymph % (Auto) [place] % (Auto) Lymph # [place] # Seg Neutrophils % Seg Neuts % (Manual) Lymphocytes % (Manual) 9.0 L Monocytes % (Manual) 17.0 H Nucleated RBC % Seg Neutrophils # Seg Neutrophils # Man Lymphocytes # (Manual) Monocytes # (Manual) 2.6 H D-Dimer POC ABG pH ABG pH POC ABG pCO2 POC ABG pO2 ABG pO2 ABG O2 Saturation ABG Hemoglobin Oxyhemoglobin Sodium Potassium Chloride Carbon Dioxide BUN Creatinine Glucose POC Glucose 69 L Lactic Acid 3.30 H* Calcium Phosphorus Magnesium Total Bilirubin AST NT-Pro-B Natriuret Pep Total Protein Albumin Lipase 07/23/19 07/23/19 07/23/19 02:50 03:09 04:30 WBC RBC Hgb Hct MCV RDW Plt Count Lymph % (Auto) [place] % (Auto) Lymph # [place] # Seg Neutrophils % Seg Neuts % (Manual) Lymphocytes % (Manual) Monocytes % (Manual) Nucleated RBC % Seg Neutrophils # Seg Neutrophils # Man Lymphocytes # (Manual) Monocytes # (Manual) D-Dimer POC ABG pH 7.296 L ABG pH POC ABG pCO2 POC ABG pO2 66 L ABG pO2 ABG O2 Saturation ABG Hemoglobin Oxyhemoglobin Sodium 134 L Potassium 7.5 H* D Chloride Carbon Dioxide 21 L BUN 47 H Creatinine 2.7 H Glucose POC Glucose Lactic Acid 3.50 H* Calcium 7.6 L Phosphorus Magnesium 2.90 H Total Bilirubin AST 60 H NT-Pro-B Natriuret Pep Total Protein 5.5 L D Albumin 2.5 L Lipase 07/23/19 07/23/19 07/23/19 07:30 09:03 09:03 WBC RBC Hgb Hct MCV RDW Plt Count Lymph % (Auto) [place] % (Auto) Lymph # [place] # Seg Neutrophils % Seg Neuts % (Manual) Lymphocytes % (Manual) Monocytes % (Manual) Nucleated RBC % Seg Neutrophils # Seg Neutrophils # Man Lymphocytes # (Manual) Monocytes # (Manual) D-Dimer POC ABG pH ABG pH POC ABG pCO2 POC ABG pO2 ABG pO2 ABG O2 Saturation ABG Hemoglobin Oxyhemoglobin Sodium 136 L Potassium 6.6 H* 7.1 H* Chloride Carbon Dioxide 20 L BUN 50 H 49 H Creatinine 2.6 H 2.4 H Glucose 67 L POC Glucose Lactic Acid 4.10 H* Calcium 7.6 L 7.7 L Phosphorus Magnesium Total Bilirubin AST NT-Pro-B Natriuret Pep Total Protein Albumin Lipase 07/23/19 07/23/19 07/23/19 10:52 13:13 14:48 WBC RBC Hgb Hct MCV RDW Plt Count Lymph % (Auto) [place] % (Auto) Lymph # [place] # Seg Neutrophils % Seg Neuts % (Manual) Lymphocytes % (Manual) Monocytes % (Manual) Nucleated RBC % Seg Neutrophils # Seg Neutrophils # Man Lymphocytes # (Manual) Monocytes # (Manual) D-Dimer POC ABG pH 7.280 L ABG pH POC ABG pCO2 48.7 H POC ABG pO2 ABG pO2 ABG O2 Saturation ABG Hemoglobin Oxyhemoglobin Sodium Potassium Chloride Carbon Dioxide BUN Creatinine Glucose POC Glucose 123 H Lactic Acid 4.10 H* Calcium Phosphorus Magnesium Total Bilirubin AST NT-Pro-B Natriuret Pep Total Protein Albumin Lipase 07/23/19 07/23/19 07/23/19 15:56 17:35 Unknown WBC RBC Hgb Hct MCV RDW Plt Count Lymph % (Auto) [place] % (Auto) Lymph # [place] # Seg Neutrophils % Seg Neuts % (Manual) Lymphocytes % (Manual) Monocytes % (Manual) Nucleated RBC % Seg Neutrophils # Seg Neutrophils # Man Lymphocytes # (Manual) Monocytes # (Manual) D-Dimer POC ABG pH ABG pH POC ABG pCO2 POC ABG pO2 ABG pO2 ABG O2 Saturation ABG Hemoglobin Oxyhemoglobin Sodium Potassium Chloride Carbon Dioxide BUN Creatinine Glucose POC Glucose Lactic Acid 3.00 H* 4.10 H* 4.90 H* Calcium Phosphorus Magnesium Total Bilirubin AST NT-Pro-B Natriuret Pep Total Protein Albumin Lipase 07/23/19 07/24/19 07/24/19 Unknown 00:05 00:40 WBC RBC Hgb Hct MCV RDW Plt Count Lymph % (Auto) [place] % (Auto) Lymph # [place] # Seg Neutrophils % Seg Neuts % (Manual) Lymphocytes % (Manual) Monocytes % (Manual) Nucleated RBC % Seg Neutrophils # Seg Neutrophils # Man Lymphocytes # (Manual) Monocytes # (Manual) D-Dimer POC ABG pH ABG pH POC ABG pCO2 POC ABG pO2 ABG pO2 151.3 H ABG O2 Saturation ABG Hemoglobin Oxyhemoglobin Sodium Potassium 5.6 H D Chloride Carbon Dioxide BUN 29 H Creatinine Glucose 128 H POC Glucose 118 H Lactic Acid Calcium 7.4 L Phosphorus Magnesium Total Bilirubin AST NT-Pro-B Natriuret Pep Total Protein Albumin Lipase 07/24/19 07/24/19 07/24/19 04:00 05:37 05:37 WBC RBC Hgb Hct MCV RDW Plt Count 89 L Lymph % (Auto) [place] % (Auto) Lymph # [place] # Seg Neutrophils % Seg Neuts % (Manual) Lymphocytes % (Manual) 5.0 L Monocytes % (Manual) Nucleated RBC % Seg Neutrophils # Seg Neutrophils # Man Lymphocytes # (Manual) 0.5 L Monocytes # (Manual) D-Dimer POC ABG pH ABG pH POC ABG pCO2 POC ABG pO2 ABG pO2 ABG O2 Saturation ABG Hemoglobin Oxyhemoglobin Sodium Potassium Chloride Carbon Dioxide BUN 29 H Creatinine Glucose 120 H POC Glucose 123 H Lactic Acid Calcium 7.4 L Phosphorus 2.30 L D Magnesium Total Bilirubin 1.40 H AST 107 H NT-Pro-B Natriuret Pep Total Protein 5.3 L Albumin 2.5 L Lipase 07/24/19 07/24/19 07/24/19 05:37 10:18 18:44 WBC RBC Hgb Hct MCV RDW Plt Count Lymph % (Auto) [place] % (Auto) Lymph # [place] # Seg Neutrophils % Seg Neuts % (Manual) Lymphocytes % (Manual) Monocytes % (Manual) Nucleated RBC % Seg Neutrophils # Seg Neutrophils # Man Lymphocytes # (Manual) Monocytes # (Manual) D-Dimer POC ABG pH 7.464 H ABG pH POC ABG pCO2 POC ABG pO2 125 H ABG pO2 ABG O2 Saturation ABG Hemoglobin Oxyhemoglobin Sodium Potassium Chloride Carbon Dioxide BUN Creatinine Glucose POC Glucose 130 H Lactic Acid 3.90 H* Calcium Phosphorus Magnesium Total Bilirubin AST NT-Pro-B Natriuret Pep Total Protein Albumin Lipase 07/24/19 07/25/19 07/25/19 18:52 04:45 04:45 WBC RBC Hgb Hct MCV RDW Plt Count 91 L Lymph % (Auto) [place] % (Auto) Lymph # [place] # Seg Neutrophils % Seg Neuts % (Manual) Lymphocytes % (Manual) Monocytes % (Manual) Nucleated RBC % Seg Neutrophils # Seg Neutrophils # Man Lymphocytes # (Manual) Monocytes # (Manual) D-Dimer POC ABG pH ABG pH POC ABG pCO2 POC ABG pO2 ABG pO2 ABG O2 Saturation ABG Hemoglobin Oxyhemoglobin Sodium Potassium Chloride Carbon Dioxide BUN 24 H Creatinine Glucose POC Glucose 107 H Lactic Acid Calcium 7.9 L Phosphorus 2.20 L Magnesium Total Bilirubin AST NT-Pro-B Natriuret Pep Total Protein Albumin Lipase 07/25/19 07/26/19 07/26/19 05:32 02:20 05:00 WBC RBC Hgb Hct MCV RDW Plt Count Lymph % (Auto) [place] % (Auto) Lymph # [place] # Seg Neutrophils % Seg Neuts % (Manual) Lymphocytes % (Manual) Monocytes % (Manual) Nucleated RBC % Seg Neutrophils # Seg Neutrophils # Man Lymphocytes # (Manual) Monocytes # (Manual) D-Dimer POC ABG pH ABG pH POC ABG pCO2 POC ABG pO2 ABG pO2 70.6 L ABG O2 Saturation 94.7 L ABG Hemoglobin 12.0 L Oxyhemoglobin 92.8 L Sodium 148 H Potassium Chloride 112.1 H Carbon Dioxide BUN Creatinine 0.6 L Glucose 71 L POC Glucose 62 L Lactic Acid Calcium 8.3 L Phosphorus Magnesium Total Bilirubin AST NT-Pro-B Natriuret Pep Total Protein Albumin Lipase 07/26/19 07/26/19 07/27/19 05:45 05:47 05:00 WBC 13.1 H RBC Hgb Hct MCV RDW 15.8 H Plt Count 113 L Lymph % (Auto) [place] % (Auto) Lymph # [place] # Seg Neutrophils % Seg Neuts % (Manual) Lymphocytes % (Manual) Monocytes % (Manual) 16.0 H Nucleated RBC % 2.0 H Seg Neutrophils # Seg Neutrophils # Man 8.1 H Lymphocytes # (Manual) Monocytes # (Manual) 2.1 H D-Dimer POC ABG pH ABG pH 7.309 L POC ABG pCO2 POC ABG pO2 ABG pO2 73.3 L ABG O2 Saturation 93.9 L ABG Hemoglobin 12.4 L Oxyhemoglobin 92.1 L Sodium Potassium Chloride Carbon Dioxide BUN Creatinine Glucose POC Glucose 68 L Lactic Acid Calcium Phosphorus Magnesium Total Bilirubin AST NT-Pro-B Natriuret Pep Total Protein Albumin Lipase 07/27/19 07/27/19 07/27/19 05:00 06:10 09:49 WBC RBC Hgb Hct MCV RDW Plt Count Lymph % (Auto) [place] % (Auto) Lymph # [place] # Seg Neutrophils % Seg Neuts % (Manual) Lymphocytes % (Manual) Monocytes % (Manual) Nucleated RBC % Seg Neutrophils # Seg Neutrophils # Man Lymphocytes # (Manual) Monocytes # (Manual) D-Dimer POC ABG pH ABG pH POC ABG pCO2 POC ABG pO2 ABG pO2 ABG O2 Saturation ABG Hemoglobin 12.6 L Oxyhemoglobin 94.2 L Sodium 149 H Potassium Chloride 114.6 H Carbon Dioxide BUN Creatinine Glucose POC Glucose 110 H Lactic Acid Calcium 7.9 L Phosphorus Magnesium Total Bilirubin AST NT-Pro-B Natriuret Pep Total Protein Albumin Lipase 07/28/19 07/28/19 07/29/19 04:12 04:12 05:15 WBC 15.3 H RBC Hgb 11.5 L Hct 34.4 L MCV RDW 15.9 H Plt Count Lymph % (Auto) [place] % (Auto) Lymph # [place] # Seg Neutrophils % Seg Neuts % (Manual) Lymphocytes % (Manual) Monocytes % (Manual) Nucleated RBC % Seg Neutrophils # Seg Neutrophils # Man Lymphocytes # (Manual) Monocytes # (Manual) D-Dimer POC ABG pH ABG pH POC ABG pCO2 POC ABG pO2 ABG pO2 ABG O2 Saturation ABG Hemoglobin Oxyhemoglobin Sodium 149 H 149 H Potassium Chloride 113.3 H 113.9 H Carbon Dioxide BUN Creatinine 0.7 L 0.6 L Glucose 109 H POC Glucose Lactic Acid Calcium 8.0 L 8.0 L Phosphorus Magnesium 1.60 L Total Bilirubin AST NT-Pro-B Natriuret Pep Total Protein 4.2 L D Albumin 2.0 L Lipase 07/29/19 07/29/19 07/29/19 05:34 05:34 17:59 WBC RBC Hgb Hct MCV RDW Plt Count Lymph % (Auto) [place] % (Auto) Lymph # [place] # Seg Neutrophils % Seg Neuts % (Manual) Lymphocytes % (Manual) Monocytes % (Manual) Nucleated RBC % Seg Neutrophils # Seg Neutrophils # Man Lymphocytes # (Manual) Monocytes # (Manual) D-Dimer POC ABG pH ABG pH POC ABG pCO2 46.9 H POC ABG pO2 65 L ABG pO2 ABG O2 Saturation ABG Hemoglobin Oxyhemoglobin Sodium Potassium Chloride Carbon Dioxide BUN Creatinine Glucose POC Glucose 107 H 110 H Lactic Acid Calcium Phosphorus Magnesium Total Bilirubin AST NT-Pro-B Natriuret Pep Total Protein Albumin Lipase 07/30/19 07/30/19 07/30/19 04:46 04:46 05:23 WBC 21.2 H RBC 3.36 L Hgb 10.5 L Hct 31.4 L MCV RDW 15.8 H Plt Count Lymph % (Auto) [place] % (Auto) Lymph # [place] # Seg Neutrophils % Seg Neuts % (Manual) Lymphocytes % (Manual) Monocytes % (Manual) Nucleated RBC % Seg Neutrophils # Seg Neutrophils # Man Lymphocytes # (Manual) Monocytes # (Manual) D-Dimer POC ABG pH 7.344 L ABG pH POC ABG pCO2 48.8 H POC ABG pO2 77 L ABG pO2 ABG O2 Saturation ABG Hemoglobin Oxyhemoglobin Sodium 146 H Potassium Chloride 110.8 H Carbon Dioxide BUN 22 H Creatinine 0.7 L Glucose 101 H POC Glucose Lactic Acid Calcium 7.9 L Phosphorus 4.60 H Magnesium Total Bilirubin AST NT-Pro-B Natriuret Pep Total Protein Albumin Lipase 07/30/19 07/31/19 07/31/19 12:17 04:42 08:10 WBC 15.4 H RBC 3.11 L Hgb 9.8 L Hct 29.3 L MCV RDW 15.8 H Plt Count Lymph % (Auto) [place] % (Auto) Lymph # [place] # Seg Neutrophils % Seg Neuts % (Manual) 81.0 H Lymphocytes % (Manual) 10.0 L Monocytes % (Manual) Nucleated RBC % Seg Neutrophils # Seg Neutrophils # Man 12.5 H Lymphocytes # (Manual) Monocytes # (Manual) D-Dimer POC ABG pH ABG pH POC ABG pCO2 POC ABG pO2 ABG pO2 ABG O2 Saturation ABG Hemoglobin 10.1 L Oxyhemoglobin 94.8 L Sodium Potassium Chloride Carbon Dioxide BUN Creatinine Glucose POC Glucose 107 H Lactic Acid Calcium Phosphorus Magnesium Total Bilirubin AST NT-Pro-B Natriuret Pep Total Protein Albumin Lipase 07/31/19 07/31/19 07/31/19 08:10 12:36 17:56 WBC RBC Hgb Hct MCV RDW Plt Count Lymph % (Auto) [place] % (Auto) Lymph # [place] # Seg Neutrophils % Seg Neuts % (Manual) Lymphocytes % (Manual) Monocytes % (Manual) Nucleated RBC % Seg Neutrophils # Seg Neutrophils # Man Lymphocytes # (Manual) Monocytes # (Manual) D-Dimer POC ABG pH ABG pH POC ABG pCO2 POC ABG pO2 ABG pO2 ABG O2 Saturation ABG Hemoglobin Oxyhemoglobin Sodium 146 H Potassium Chloride 110.2 H Carbon Dioxide BUN 22 H Creatinine 0.7 L Glucose 102 H POC Glucose 119 H 138 H Lactic Acid Calcium 8.3 L Phosphorus Magnesium Total Bilirubin AST NT-Pro-B Natriuret Pep Total Protein Albumin Lipase 08/01/19 08/01/19 08/01/19 00:02 05:15 05:15 WBC 18.0 H RBC 3.12 L Hgb 9.7 L Hct 30.3 L MCV 97 H RDW 16.0 H Plt Count Lymph % (Auto) [place] % (Auto) Lymph # [place] # Seg Neutrophils % Seg Neuts % (Manual) Lymphocytes % (Manual) Monocytes % (Manual) Nucleated RBC % Seg Neutrophils # Seg Neutrophils # Man Lymphocytes # (Manual) Monocytes # (Manual) D-Dimer POC ABG pH ABG pH POC ABG pCO2 POC ABG pO2 ABG pO2 ABG O2 Saturation ABG Hemoglobin Oxyhemoglobin Sodium 149 H Potassium Chloride 112.0 H Carbon Dioxide BUN 28 H Creatinine Glucose POC Glucose 119 H Lactic Acid Calcium Phosphorus 5.60 H D Magnesium Total Bilirubin AST NT-Pro-B Natriuret Pep Total Protein Albumin Lipase 08/01/19 05:47 WBC RBC Hgb Hct MCV RDW Plt Count Lymph % (Auto) [place] % (Auto) Lymph # [place] # Seg Neutrophils % Seg Neuts % (Manual) Lymphocytes % (Manual) Monocytes % (Manual) Nucleated RBC % Seg Neutrophils # Seg Neutrophils # Man Lymphocytes # (Manual) Monocytes # (Manual) D-Dimer POC ABG pH ABG pH POC ABG pCO2 POC ABG pO2 ABG pO2 ABG O2 Saturation ABG Hemoglobin Oxyhemoglobin Sodium Potassium Chloride Carbon Dioxide BUN Creatinine Glucose POC Glucose 142 H Lactic Acid Calcium Phosphorus Magnesium Total Bilirubin AST NT-Pro-B Natriuret Pep Total Protein Albumin Lipase
--- NOTE | 2019-08-01 12:27 | XRay Report ---
CHEST 1 VIEW INDICATION: Fever with increase in FiO2 requirements. COMPARISON: 07/30/2019 FINDINGS: Support devices: The endotracheal tube has been removed. The nasogastric tube and right arm PICC johanna in in the same position. Heart: Stable borderline heart size Lungs/Pleura: There is poor inspiratory effort which crowds the pulmonary vessels. Mild bibasilar air space opacities are identified which appear to represent hypoventilatory changes. Bibasilar infiltrat es are thought less likely. No pleural effusion or pneumothorax. Additional findings: None. IMPRESSION: Expiratory AP chest. Bibasilar opacities are identified which are most suggestive of hypoventilation /atelectasis. With fever, bibasilar infiltrates could be considered. Signer Name: Jacob Corrales Jr, MD Signed: 08/01/2019 12:23 PM Workstation Name: [id number]
--- NOTE | 2019-08-01 15:14 | Progress Note ---
Assessment and Plan s/p ex-lap with partial colon resection (07/23), s/p abdominal colectomy with ileocolostomy (07/26), POD#3; s/p abdominal reexploration, peritoneal lavage, closure of open abdomen, placement of URMILA drain (07/28). Currently stable cardiac status. Cont present cardiac management. Consider ischemic evaluation to r/o ischemic CMP once medically stabilized. DDimer is noted to be elevated - pt too unstable for V/Q scan at this time. The patient has been seen in conjunction with Dr. CONTRERAS Blake who agrees with the assessment and plan of care. - Patient Problems (1) Acute respiratory failure Current Visit: Yes Status: Acute Qualifiers: Respiratory failure complication: hypoxia Qualified Code(s): J96.01 - Acute respiratory failure with hypoxia (2) Ischemic necrosis of large intestine Current Visit: Yes Status: Acute (3) Constipation Current Visit: Yes Status: Acute (4) Intractable vomiting with nausea Current Visit: Yes Status: Acute (5) Sinus tachycardia Current Visit: Yes Status: Resolved (6) Hypotension Current Visit: Yes Status: Resolved (7) Acute renal failure Current Visit: Yes Status: Acute (8) Hyperkalemia Current Visit: Yes Status: Acute (9) Leukocytosis Current Visit: Yes Status: Acute (10) Lactic acidosis Current Visit: Yes Status: Acute (11) Elevated d-dimer Current Visit: Yes Status: Acute (12) Cardiomyopathy Current Visit: Yes Status: Acute Qualifiers: Cardiomyopathy type: unspecified Qualified Code(s): I42.9 - Cardiomyopathy, unspecified Subjective Date of service: 08/01/19 Principal diagnosis: Respiratory Failure Interval history: pt has been extubated, awake, agitated, in SR HR 70s on telemetry. Objective Last Vital Signs Temp 101.1 F H 08/01/19 12:00 Pulse 91 H 08/01/19 13:30 Resp 22 08/01/19 13:30 BP 133/87 08/01/19 13:30 Pulse Ox 99 08/01/19 13:30 - Physical Examination General: No Apparent Distress Neck: Positive: neck supple, trachea midline Cardiac: Positive: Reg Rate and Rhythm, S1/S2 Lungs: Positive: Decreased Breath Sounds Neuro: Positive: Other (awake) Abdomen: Positive: Other Skin: Positive: Other (abdominal surgical site). Negative: Rash Extremities: Absent: edema - Labs and Meds CBC 10/23/19 Range/Units 05:15 WBC 18.0 H (4.5-11.0) K/mm3 RBC 3.12 L (3.65-5.03) M/mm3 Hgb 9.7 L (11.8-15.2) gm/dl Hct 30.3 L (35.5-45.6) % Plt Count 197 (140-440) K/mm3 Lymph # Slip Cover Cutter [place] # Slip Cover Cutter Eos # Slip Cover Cutter Baso # Slip Cover Cutter Comprehensive Metabolic Panel 08/01/19 Range/Units 05:15 Sodium 149 H (137-145) mmol/L Potassium 4.6 D (3.6-5.0) mmol/L Chloride 112.0 H (98-107) mmol/L Carbon Dioxide 28 (22-30) mmol/L BUN 28 H (9-20) mg/dL Creatinine 1.1 D (0.8-1.5) mg/dL Glucose 96 (75-100) mg/dL Calcium 8.7 (8.4-10.2) mg/dL - Imaging and Cardiology EKG: report reviewed, image reviewed Stress echo: report reviewed, image reviewed Echo: report reviewed ( EF 25-30%, LV mildly dilated, impaired relaxation, trivial pericardial effusion, mod pleural effusion. ) - EKG Sinus rhythms and dysrhythmias: sinus tachycardia
--- NOTE | 2019-08-01 15:34 | Progress Note ---
Assessment and Plan Cultures: 07/21/2019 blood culture: No growth 07/30/2019 urine culture: no growth A/P: 19-year-old male with Down syndrome admitted with severe constipation and fecal impaction: 1) Septic shock: resolved. intra-abdominal source. s/p ex-lap on 07/23/2019, findings of multiple distinct areas of necrosis on transverse colon. Rest of intestines were normal. Gen. Surg following (see #3). 2) Acute renal failure: resolved. Creatinine normal. Dose adjust abx accordingly. 3) Fecal impaction, colonic distention with necrosis and shock: s/p ex-lap on 07/23/2019, findings of multiple distinct areas of necrosis on transverse colon. rest of intestines were normal. Gen. Surg following, s/p washout on 07/26/2019 along with abdominal colectomy with ileosigmoid anastomosis, open abdomen. Unde rwent abdominal closure on 07/28/2019. 4) Acute respiratory failure: extubated 07/31/2019. Recs: given fever and WBC countinue IV Cefepime, Flagyl, Fluconazole may need repeat imaging if fevers and WBC persist/worsen Meghan Williamson MD, FACP [facility] ([facility]) C: [phone] O: [phone] F: [phone] Subjective Date of service: 08/01/19 Principal diagnosis: Respiratory Failure Interval history: Awake, alert, asking for his mom. Fevers continue. Poor historian. Objective - Exam Narrative Exam: Physical Exam: Constitutional: awake, alert Head, Ears, Nose: Normocephalic, atraumatic. External ears, nose normal Eyes: Conjunctivae/corneas clear. No icterus. No ptosis. Neck: supple, no meningeal signs Cardiovascular: S1, S2 normal. Respiratory: Good air entry, clear to auscultation bilaterally GI: soft, midline dressing +, drain +, bowel sounds hypo. Mcpherson + Musculoskeletal: No pedal edema, no cyanosis. Skin: No rash or abscess Hem/Lymphatic: No palpable cervical or supraclavicular nodes. No lymphangitis Psych: restless Neurological: awake, alert - Constitutional Vitals: Vital Signs Temp Pulse Resp BP Pulse Ox 101.1 F H 91 H 22 133/87 96 08/01/19 12:00 08/01/19 13:30 08/01/19 13:30 08/01/19 13:30 08/01/19 15:29 Temperature -Last 24 Hours Temperature 101.1 F Temperature 100.1 F Temperature 100.1 F Temperature 99.9 F Temperature 99.6 F Temperature 99.9 F Temperature 100.5 F Temperature 101.9 F - Labs CBC & Chem 7: 08/01/19 05:15 08/01/19 05:15 Labs: Abnormal lab results 07/31/19 07/31/19 08/01/19 Range/Units 12:36 17:56 00:02 WBC (4.5-11.0) K/mm3 RBC (3.65-5.03) M/mm3 Hgb (11.8-15.2) gm/dl Hct (35.5-45.6) % MCV (84-94) fl RDW (13.2-15.2) % Sodium (137-145) mmol/L Chloride (98-107) mmol/L BUN (9-20) mg/dL POC Glucose 119 H 138 H 119 H (70-105) Phosphorus (2.5-4.5) mg/dL 08/01/19 08/01/19 08/01/19 Range/Units 05:15 05:15 05:47 WBC 18.0 H (4.5-11.0) K/mm3 RBC 3.12 L (3.65-5.03) M/mm3 Hgb 9.7 L (11.8-15.2) gm/dl Hct 30.3 L (35.5-45.6) % MCV 97 H (84-94) fl RDW 16.0 H (13.2-15.2) % Sodium 149 H (137-145) mmol/L Chloride 112.0 H (98-107) mmol/L BUN 28 H (9-20) mg/dL POC Glucose 142 H (70-105) Phosphorus 5.60 H D (2.5-4.5) mg/dL - Imaging and cardiology Chest x-ray: report reviewed, image reviewed (b/l pulmonary edema.)
--- NOTE | 2019-08-01 15:50 | Progress Note ---
Assessment and Plan Assessment and plan: Patient is 19 yo with Downs syndrome from [facility] home. he initially presented with abdominal pain, nausea and vomiting. he was seen and examined in ED. CT Abd showed severe constipation. he was given Fleets enema, admitted. His BMP was WNL. By next day Cr was 2.2 and he had hyperkalemia of 5.3. Repeat hrs later showed worse Cr 2.2 and Potassium went up to 6.0. and he had developed shortness of breath, desaturation so was transferred to ICU. 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 Hold any tube feeds for now. Would ideally like to see resumption of bowel function prior to starting tube feeds." Septic shock: intra-abdominal source. s/p ex-lap on 07/23/2019, Per surgery findings of multiple distinct areas of necrosis on transverse colon. Rest of intestines were normal. IV Cefepime, Flagyl, Fluconazole Discontinued femoral Line [place]UM[place] due to ATN-Resolved Nephrology following Cardiomyopathy -Cardiology following, Ischemic work up when more stable V/Q scan when more stable lactic acidosis Secondary to ischemic Bowel Hyperkalemia-RESOLVED Diarrhea followed by constipation; patient is currently on ileostomy Thrombocytopenia - Resolved Sinus tachycardia - resolved Downs syndrome supportive care full code status Prognosis guarded Mother updated The high probability of a clinically significant, sudden or life threatening deterioration of the [renal, GI,] system(s) required my full and direct attention, intervention and personal management. The aggregate critical care time was [35] minutes. This time is in addition to time spent performing reported procedures but includes the following: [x] Data Review and interpretation [x] Patient assessment and monitoring of vital signs [x] Documentation [x] Medication orders and management History Interval history: Patient was seen and evaluated this morning, patient was alert but confused. Hospitalist Physical - Physical exam Narrative exam: Patient was extubated yesterday. The patient appeared well nourished and normally developed. Vital signs as documented. Head exam is unremarkable. No scleral icterus . Neck is without jugular venous distension, thyromegaly, or carotid bruits. Lungs are clear to auscultation. Cardiac exam reveals regular rate and Rhythm. Abdominal exam reveals normal bowel sounds. Extremities are nonedematous and both femoral and pedal pulses are normal. ORE ROASTER: Patient was agitated and on restraints. - Constitutional Vitals: Temp Pulse Resp BP Pulse Ox 101.1 F H 91 H 22 133/87 96 08/01/19 12:00 08/01/19 13:30 08/01/19 13:30 08/01/19 13:30 08/01/19 15:29 General appearance: Present: no acute distress, well-nourished Results - Labs CBC & Chem 7: 08/01/19 05:15 08/01/19 05:15 Labs: Laboratory Last Values WBC 18.0 K/mm3 (4.5-11.0) H 08/01/19 05:15 RBC 3.12 M/mm3 (3.65-5.03) L 08/01/19 05:15 Hgb 9.7 gm/dl (11.8-15.2) L 08/01/19 05:15 Hct 30.3 % (35.5-45.6) L 08/01/19 05:15 MCV 97 fl (84-94) H 08/01/19 05:15 MCH 31 pg (28-32) 08/01/19 05:15 MCHC 32 % (32-34) 08/01/19 05:15 RDW 16.0 % (13.2-15.2) H 08/01/19 05:15 Plt Count 197 K/mm3 (140-440) 08/01/19 05:15 Lymph % (Auto) [place] 08/01/19 05:15 [place] % (Auto) [place] 08/01/19 05:15 Eos % (Auto) [place] 08/01/19 05:15 Baso % (Auto) [place] 08/01/19 05:15 Lymph # [place] 08/01/19 05:15 [place] # [place] 08/01/19 05:15 Eos # [place] 08/01/19 05:15 Baso # [place] 08/01/19 05:15 Add Manual Diff Complete 07/31/19 08:10 Total Counted 100 07/31/19 08:10 Seg Neutrophils % [place] 08/01/19 05:15 Seg Neuts % (Manual) 81.0 % (40.0-70.0) H 07/31/19 08:10 Band Neutrophils % 0 % 07/31/19 08:10 Lymphocytes % (Manual) 10.0 % (13.4-35.0) L 07/31/19 08:10 Reactive Lymphs % (Man) 0 % 07/31/19 08:10 Monocytes % (Manual) 2.0 % (0.0-7.3) 07/31/19 08:10 Eosinophils % (Manual) 0 % (0.0-4.3) 07/31/19 08:10 Basophils % (Manual) 0 % (0.0-1.8) 07/31/19 08:10 Metamyelocytes % 7.0 % 07/31/19 08:10 Myelocytes % 0 % 07/31/19 08:10 Promyelocytes % 0 % 07/31/19 08:10 Blast Cells % 0 % 07/31/19 08:10 Nucleated RBC % Not Reportable 07/31/19 08:10 Seg Neutrophils # [place] 08/01/19 05:15 Seg Neutrophils # Man 12.5 K/mm3 (1.8-7.7) H 07/31/19 08:10 Band Neutrophils # 0.0 K/mm3 07/31/19 08:10 Lymphocytes # (Manual) 1.5 K/mm3 (1.2-5.4) 07/31/19 08:10 Abs React Lymphs (Man) 0.0 K/mm3 07/31/19 08:10 Monocytes # (Manual) 0.3 K/mm3 (0.0-0.8) 07/31/19 08:10 Eosinophils # (Manual) 0.0 K/mm3 (0.0-0.4) 07/31/19 08:10 Basophils # (Manual) 0.0 K/mm3 (0.0-0.1) 07/31/19 08:10 Metamyelocytes # 1.1 K/mm3 07/31/19 08:10 Myelocytes # 0.0 K/mm3 07/31/19 08:10 Promyelocytes # 0.0 K/mm3 07/31/19 08:10 Blast Cells # 0.0 K/mm3 07/31/19 08:10 WBC Morphology Not Reportable 07/31/19 08:10 Hypersegmented Neuts Not Reportable 07/31/19 08:10 Hyposegmented Neuts Not Reportable 07/31/19 08:10 Hypogranular Neuts Not Reportable 07/31/19 08:10 Smudge Cells Not Reportable 07/31/19 08:10 Toxic Granulation Not Reportable 07/31/19 08:10 Toxic Vacuolation Not Reportable 07/31/19 08:10 Dohle Bodies Not Reportable 07/31/19 08:10 [place]uet Anomaly Not Reportable 07/31/19 08:10 Alea Rods Not Reportable 07/31/19 08:10 Platelet Estimate Consistent w auto 07/31/19 08:10 Clumped Platelets Not Reportable 07/31/19 08:10 Plt Clumps, EDTA Not Reportable 07/31/19 08:10 Large Platelets Not Reportable 07/31/19 08:10 Giant Platelets Not Reportable 07/31/19 08:10 Platelet Satelliting Not Reportable 07/31/19 08:10 Plt Morphology Comment Not Reportable 07/31/19 08:10 RBC Morphology Not Reportable 07/31/19 08:10 Dimorphic RBCs Not Reportable 07/31/19 08:10 Polychromasia Not Reportable 07/31/19 08:10 Hypochromasia Not Reportable 07/31/19 08:10 Poikilocytosis Not Reportable 07/31/19 08:10 Anisocytosis Few 07/31/19 08:10 Microcytosis Not Reportable 07/31/19 08:10 Macrocytosis Not Reportable 07/31/19 08:10 Spherocytes Not Reportable 07/31/19 08:10 Pappenheimer Bodies Not Reportable 07/31/19 08:10 Sickle Cells Not Reportable 07/31/19 08:10 Target Cells Not Reportable 07/31/19 08:10 Tear Drop Cells Not Reportable 07/31/19 08:10 Ovalocytes Not Reportable 07/31/19 08:10 Helmet Cells Not Reportable 07/31/19 08:10 [place] Bodies Not Reportable 07/31/19 08:10 [place] Rings Not Reportable 07/31/19 08:10 [place] Cells Not Reportable 07/31/19 08:10 Bite Cells Not Reportable 07/31/19 08:10 Crenated Cell Not Reportable 07/31/19 08:10 Elliptocytes Not Reportable 07/31/19 08:10 Acanthocytes (Spur) Not Reportable 07/31/19 08:10 Rouleaux Not Reportable 07/31/19 08:10 Hemoglobin C Crystals Not Reportable 07/31/19 08:10 Schistocytes Not Reportable 07/31/19 08:10 Malaria parasites Not Reportable 07/31/19 08:10 Emanuel Bodies Not Reportable 07/31/19 08:10 Hem Pathologist Commnt No 07/31/19 08:10 D-Dimer 886.89 ng/mlDDU (0-234) H 07/22/19 21:45 Heparin Anti-Xa, Unfract Negative (Negative) 07/24/19 09:18 POC ABG pH 7.344 (7.35-7.45) L 07/30/19 05:23 ABG pH 7.406 pH Units (7.350-7.450) 07/31/19 04:42 POC ABG pCO2 48.8 (35-45) H 07/30/19 05:23 ABG pCO2 42.4 mm Hg 07/31/19 04:42 POC ABG pO2 77 (80-105) L 07/30/19 05:23 ABG pO2 85.1 mm Hg (80.0-90.0) 07/31/19 04:42 POC ABG HCO3 26.6 (22-26 mml/L) 07/30/19 05:23 ABG HCO3 26.0 mmol/L (20.0-26.0) 07/31/19 04:42 POC ABG Total CO2 28 (23-27mmol/L) 07/30/19 05:23 POC ABG O2 Sat 94 07/30/19 05:23 ABG O2 Saturation 96.7 % (95.0-99.0) 07/31/19 04:42 ABG O2 Content 13.6 (0.0-44) 07/31/19 04:42 POC ABG Base Excess 1 ((-2) - (+3)mmol/L) 07/30/19 05:23 ABG Base Excess 1.2 mmol/L (-2.0-3.0) 07/31/19 04:42 ABG Hemoglobin 10.1 gm/dl (14.0-18.0) L 07/31/19 04:42 ABG Carboxyhemoglobin 1.5 % (0.0-5.0) 07/31/19 04:42 ABG Methemoglobin 0.4 % (0.0-1.5) 07/31/19 04:42 Oxyhemoglobin 94.8 % (95.0-99.0) L 07/31/19 04:42 FiO2 40 % 07/31/19 04:42 Sodium 149 mmol/L (137-145) H 08/01/19 05:15 Potassium 4.6 mmol/L (3.6-5.0) D 08/01/19 05:15 Chloride 112.0 mmol/L (98-107) H 08/01/19 05:15 Carbon Dioxide 28 mmol/L (22-30) 08/01/19 05:15 Anion Gap 14 mmol/L 08/01/19 05:15 BUN 28 mg/dL (9-20) H 08/01/19 05:15 Creatinine 1.1 mg/dL (0.8-1.5) D 08/01/19 05:15 Estimated GFR > 60 ml/min 08/01/19 05:15 BUN/Creatinine Ratio 25 % 08/01/19 05:15 Glucose 96 mg/dL (75-100) 08/01/19 05:15 POC Glucose 142 (70-105) H 08/01/19 05:47 Lactic Acid 1.10 mmol/L (0.7-2.0) 07/25/19 09:16 Calcium 8.7 mg/dL (8.4-10.2) 08/01/19 05:15 Phosphorus 5.60 mg/dL (2.5-4.5) H D 08/01/19 05:15 Magnesium 2.00 mg/dL (1.7-2.3) 08/01/19 05:15 Total Bilirubin 0.80 mg/dL (0.1-1.2) 07/28/19 04:12 Direct Bilirubin 0.2 mg/dL (0-0.2) 07/21/19 19:02 Indirect Bilirubin 0.4 mg/dL 07/21/19 19:02 AST 20 units/L (5-40) 07/28/19 04:12 ALT 19 units/L (7-56) 07/28/19 04:12 Alkaline Phosphatase 43 units/L (35-129) 07/28/19 04:12 Ammonia 39.0 umol/L (25-60) 07/23/19 02:50 Troponin T < 0.010 ng/mL (0.00-0.029) 07/22/19 15:33 NT-Pro-B Natriuret Pep 5407 pg/mL (0-450) H 07/22/19 21:45 Total Protein 4.2 g/dL (6.3-8.2) L D 07/28/19 04:12 Albumin 2.0 g/dL (3.9-5) L 07/28/19 04:12 Albumin/Globulin Ratio 0.9 % 07/28/19 04:12 Triglycerides 136 mg/dL (2-149) 07/30/19 04:46 Lipase 10 units/L (13-60) L 07/21/19 19:02 Serotonin Release Assay See scanned result 07/24/19 09:18 TSH 0.888 mlU/mL (0.270-4.200) 07/23/19 13:06 Free T4 1.04 ng/dL (0.76-1.46) 07/23/19 13:06 Urine Color Emy (Yellow) 07/30/19 11:30 Urine Turbidity Clear (Clear) 07/30/19 11:30 Urine pH 5.0 (5.0-7.0) 07/30/19 11:30 Ur Specific [place] 1.021 (1.003-1.030) 07/30/19 11:30 Urine Protein 30 mg/dl mg/dL (Negative) 07/30/19 11:30 Urine Glucose (UA) Neg mg/dL (Negative) 07/30/19 11:30 Urine Ketones Neg mg/dL (Negative) 07/30/19 11:30 Urine Blood Neg (Negative) 07/30/19 11:30 Urine Nitrite Neg (Negative) 07/30/19 11:30 Urine Bilirubin Neg (Negative) 07/30/19 11:30 Urine Ictotest Negative (Negative) 07/21/19 21:36 Urine Urobilinogen < 2.0 mg/dL (<2.0) 07/30/19 11:30 Ur Leukocyte Esterase Neg (Negative) 07/30/19 11:30 Urine WBC (Auto) 3.0 /HPF (0.0-6.0) 07/30/19 11:30 Urine RBC (Auto) 1.0 /HPF (0.0-6.0) 07/30/19 11:30 U Epithel Cells (Auto) < 1.0 /HPF (0-13.0) 07/30/19 11:30 Urine Mucus Few /HPF 07/30/19 11:30 Heparin-induced Plt Ab Negative (Negative) 07/24/19 09:18 UF Heparin High Dose 0 % Release 07/24/19 09:18 GIULIANA UFH Low Dose 0.1 1 % Release 07/24/19 09:18 GIULIANA UFH Low Dose 0.5 0 % Release 07/24/19 09:18 Hepatitis A IgM Ab Non-reactive (NonReactive) 07/23/19 13:06 Hep Bs Antigen Non-reactive (Negative) 07/23/19 13:06 Hep B Core IgM Ab Non-reactive (NonReactive) 07/23/19 13:06 Hepatitis C Antibody Non-reactive (NonReactive) 07/23/19 13:06 Blood Type A POSITIVE 07/28/19 04:12 Antibody Screen Negative 07/28/19 04:12 Active Medications - Current Medications Current Medications: Generic Name Dose Route Start Last Admin Trade Name Freq PRN Reason Stop Dose Admin Acetaminophen 650 mg 07/23/19 02:48 07/31/19 18:11 Tylenol MO 650 mg Q4H PRN Administration Fever >100.5 Enoxaparin Sodium 40 mg 07/27/19 10:00 08/01/19 10:00 Lovenox SUB-Q 40 mg DAILY STEPHEN Administration Famotidine 20 mg 07/24/19 10:00 08/01/19 09:59 Pepcid IV 20 mg BID STEPHEN Administration Furosemide 20 mg 07/29/19 18:00 08/01/19 05:32 Lasix IV 20 mg 0600,1800 STEPHEN Administration Haloperidol Lactate 5 mg 07/31/19 18:35 08/01/19 02:56 Haldol IV 5 mg Q6H PRN Administration Agitation Cefepime HCl 2 gm in 100 mls @ 200 mls/hr 07/23/19 16:00 08/01/19 03:08 Maxipime/Ns 2 Gm/100 Ml IV 200 mls/hr Q12H STEPHEN Administration Protocol Metronidazole 500 mg in 100 mls @ 100 mls/hr 07/23/19 16:00 08/01/19 13:10 Flagyl 500 Mg/100 Ml IV 100 mls/hr Q8HR STEPHEN Administration Protocol Valproate Sodium 500 mg/ 105 mls @ 100 mls/hr 07/24/19 10:00 08/01/19 09:58 Sodium Chloride IV 100 mls/hr Q12HR STEPHEN Administration Fluconazole 200 mls @ 100 mls/hr 07/26/19 15:00 08/01/19 09:59 Diflucan IV 100 mls/hr Q24HR STEPHEN Administration Protocol Amino Acids/Electrolytes/Dextrose 2,016 mls @ 84 mls/hr 07/31/19 20:00 07/11 11/28 19:34 Tpn Adult IV 08/01/19 19:59 84 mls/hr DAILY@1999 STEPHEN Administration Protocol Amino Acids/Electrolytes/Dextrose 2,400 mls @ 100 mls/hr 08/01/19 20:00 Tpn Adult IV 08/02/19 19:59 DAILY@1999 [facility] Protocol Morphine Sulfate 2 mg 07/31/19 18:36 08/01/19 12:24 Morphine IV 2 mg Q4H PRN Administration Pain, Moderate (4-6) Ondansetron HCl 4 mg 07/21/19 22:25 07/22/19 01:07 Zofran IV 4 mg Q8H PRN Administration Nausea And Vomiting Nutrition/Malnutrition Assess - Dietary Evaluation Nutrition/Malnutrition Findings: Nutrition Notes Start: 07/23/19 10:09 Freq: Status: Active Protocol: Document 08/01/19 10:11 AL (Rec: 08/01/19 11:29 AL [id number]) Co-Sign 08/01/19 10:11 LM Nutrition Notes Initial or Follow up Reassessment Current Diagnosis Acute Kidney Injury Other Pertinent Diagnosis Necrosis of transverse colon, down syndrome Current Diet NPO, TPN at 100mL/hr Labs/Tests Na 149 Cl 112 BUN 28 P 5.6 Pertinent Medications Lasix Height 5 ft 7 in Weight 147 kg [place] Body Weight (kg) 67.27 BMI 50.7 Subjective/Other Information CPN day 5. Pt extubated and increased fluids. Percent of energy/protein needs met: 56%/89% Burn Absent Trauma Absent GI Symptoms Nausea,Vomiting,Constipation Minimum of two criteria No physical signs of malnutrition #1 Nutrition Diagnosis Inadequate oral intake Diagnosis Progress(for reassessment Continues documentation) Is patient on ventilator? No Is Patient Ambulatory and/or Out of Bed No REE-(Finger-[facility]-confined to bed) 2920.608 Kcal/Kg value to use for calculation 14 Approximate Energy Requirements Using 8 kcal/Kg Calculation Used for Recommendations Kcal/kg Additional Notes Pro needs 86-129g (0.8-1.2g/kg /day Adj BW 107.1kg) Fluid needs 1ml/kcal or per MD Nutrition Intervention Change Diet Order: CPN Nutrition Support: Increase CPN to rate of 100mL/ hr: 10 mEq K, 0mEq Ca, 10% Dextrose, MVI Kcal 1,330 Protein (gm) 120 Carbohydrates (gm) 250 Fat (gm) 0 Fluid (mL) 2,400 Fiber (gm) 0 Goal #1 Meet kcal/PRO as best as possible with CPN Anticipated Discharge Needs: Unable to identify at this time Follow-Up By: 08/02/19 Additional Comments Follow for labs in AM: BMP, Mg , Phos
[2019-08-01 16:57] LABS: Bilirubin,Urine NEG (Negative); Blood,Urine NEG (Negative); Color,Urine Yellow (Yellow); Mucus,Urine FEW /HPF; Protein,Urine <15 mg/dL mg/dL (Negative); Urobilinogen,Urine < 2.0 mg/dL (<2.0)
[2019-08-01] MEDS: TOTAL PARENTERAL NUTRITION 2,016 ML IV SCH (19:49)
[2019-08-01] MEDS ORDERED: TOTAL PARENTERAL NUTRITION 2,400 ML IV SCH (20:00)
[2019-08-02 04:43] LABS: Basophils % (Auto) 0.1 % (0.0-1.8); Eosinophils # (Auto) 0.1 K/mm3 (0.0-0.4); Eosinophils % (Auto) 0.6 % (0.0-4.3); Hematocrit 29.3 % (35.5-45.6); Hemoglobin 9.6 gm/dl (11.8-15.2); Lymphocytes # (Auto) 1.4 K/mm3 (1.2-5.4); Lymphocytes % (Auto) 9.9 % (13.4-35.0); Mean Corpuscular HGB Conc 33 % (32-34); Mean Corpuscular Volume 94 fl (84-94); Monocytes # (Auto) 1.2 K/mm3 (0.0-0.8); Monocytes % (Auto) 8.6 % (0.0-7.3); Platelet Count 235 K/mm3 (140-440); Red Blood Count 3.12 M/mm3 (3.65-5.03); Red Cell Distribution Width 15.3 % (13.2-15.2)
[2019-08-02] MEDS: CEFEPIME/NS 2 GM/100 ML 2 GM/100 ML BAG IV SCH ×2 (04:52→16:46)
[2019-08-02 05:04] LABS: BUN/Creatinine Ratio 24; Blood Urea Nitrogen 19 mg/dL (9-20); Calcium 8.6 mg/dL (8.4-10.2); Hemolysis Index 0
[2019-08-02] MEDS: metroNIDAZOLE/NS 500 MG/100 ML 500 MG/100 ML BAG IV SCH ×3 (06:04→21:55)
[2019-08-02] MEDS: FUROSEMIDE 20 MG/2 ML INJ IV SCH (06:04)
--- NOTE | 2019-08-02 09:09 | Progress Note ---
Assessment and Plan - Patient Problems (1) Ischemic necrosis of large intestine Current Visit: Yes Status: Acute Plan to address problem: s/p ex-lap with partial colon resection (07/23) - POD#10; s/p abdominal colectomy with ileocolostomy (07/26) - POD#7; s/p abdominal reexploration, peritoneal lavage, closure of open abdomen, placement of URMILA drain (07/28) POD# 5 Plan: 1. neuro - stable. appears to be understanding questions and responding approp riately 2. CV - DVT ppx. Monitor CBC - lower today. 3. Resp - Left pleural effusion - new since last CXR on 07/23. Has congested cough as well. Probably component of atelectasis as well. 4. GI - NPO, TPN, NGT to LIWS. record URMILA output. Pt will likely have prolonged ileus, do not start TF until evidence of bowel function. GI ppx. Abdominal binder at all times to minimize risk of patient pulling at URMILA, incision, etc. Appears as though the NGT appearance is becoming safety attendant. Perhaps a sign that t he ileus is beginning to resolve. If the NG tube output eventually appears consistent with gastric fluid, but the patient has not had a bowel movement yet, we will consider trickle tube feeds at that time. 5. - lee for strict I/Os. May be removed and replaced with condom cath when ok with 1' service and nephro. UA ok. 6. ID - abx per ID 7. Endo - blood glucose monitoring per protocol 8. FEN - BMP daily, replace lytes as needed. TPN Dispo - ICU Thank you, please call with questions. Subjective Date of service: 08/02/19 Patient Reports: Positive: no new complaints, no flatus, no bowel movement Objective Vital Signs - 12hr 08/01/19 08/01/19 08/01/19 21:31 21:32 22:00 Temperature Pulse Rate 90 96 H 89 Pulse Rate [ From Monitor] Respiratory 26 H 29 H 21 Rate Respiratory Rate [Medial Abdomen] Blood Pressure 146/83 147/92 152/90 O2 Sat by Pulse 97 97 98 Oximetry 08/01/19 08/01/19 08/01/19 22:01 22:30 23:00 Temperature Pulse Rate 83 91 H 101 H Pulse Rate [ From Monitor] Respiratory 24 22 22 Rate Respiratory Rate [Medial Abdomen] Blood Pressure 152/90 157/91 148/85 O2 Sat by Pulse 97 97 98 Oximetry 08/01/19 08/02/19 08/02/19 23:30 00:00 00:21 Temperature 100.7 F H 100.7 F H Pulse Rate 96 H 80 Pulse Rate [ 89 From Monitor] Respiratory 39 H 22 Rate Respiratory 24 Rate [Medial Abdomen] Blood Pressure 167/81 147/80 O2 Sat by Pulse 96 98 Oximetry 08/02/19 08/02/19 08/02/19 00:30 01:00 01:31 Temperature Pulse Rate 74 88 93 H Pulse Rate [ From Monitor] Respiratory 26 H 24 21 Rate Respiratory Rate [Medial Abdomen] Blood Pressure 157/82 149/91 152/87 O2 Sat by Pulse 98 99 99 Oximetry 08/02/19 08/02/19 08/02/19 02:00 02:30 03:00 Temperature Pulse Rate 96 H 87 85 Pulse Rate [ From Monitor] Respiratory 26 H 21 22 Rate Respiratory Rate [Medial Abdomen] Blood Pressure 148/88 148/89 152/80 O2 Sat by Pulse 97 98 99 Oximetry 08/02/19 08/02/19 08/02/19 03:30 04:00 04:30 Temperature 100.6 F H Pulse Rate 83 86 83 Pulse Rate [ 81 From Monitor] Respiratory 21 24 20 Rate Respiratory 24 Rate [Medial Abdomen] Blood Pressure 159/82 158/84 152/82 O2 Sat by Pulse 99 100 97 Oximetry 08/02/19 08/02/19 08/02/19 05:00 05:30 06:00 Temperature Pulse Rate 71 81 91 H Pulse Rate [ From Monitor] Respiratory 28 H 27 H 33 H Rate Respiratory Rate [Medial Abdomen] Blood Pressure 156/83 135/82 134/92 O2 Sat by Pulse 97 93 91 Oximetry 08/02/19 08/02/19 08/02/19 06:30 07:01 07:31 Temperature Pulse Rate 99 H 86 96 H Pulse Rate [ From Monitor] Respiratory 24 34 H 26 H Rate Respiratory Rate [Medial Abdomen] Blood Pressure 152/83 169/59 153/96 O2 Sat by Pulse 95 91 96 Oximetry 08/02/19 08/02/19 08:00 08:38 Temperature 101.1 F H Pulse Rate 98 H Pulse Rate [ From Monitor] Respiratory 29 H Rate Respiratory 17 Rate [Medial Abdomen] Blood Pressure 158/98 O2 Sat by Pulse 96 96 Oximetry - General physical appearance no distress, no pain, other (looks well today ( no change from yesterday)) - Respiratory normal expansion, normal respiratory effort - Abdomen soft, not tender, bowel sounds hypoactive, not distended, not guarding, not rigid, surgical scars (mild skin separation near umbo area. . ), other (URMILA with serous drainage) - Integumentary no rash, no growths, no abnormal pigmentation - Labs 08/02/19 04:15 08/02/19 04:15 Diabetes panel 08/02/19 Range/Units 04:15 Sodium 148 H (137-145) mmol/L Potassium 3.7 (3.6-5.0) mmol/L Chloride 109.7 H (98-107) mmol/L Carbon Dioxide 32 H (22-30) mmol/L BUN 19 (9-20) mg/dL Creatinine 0.8 (0.8-1.5) mg/dL Glucose 113 H (75-100) mg/dL Calcium 8.6 (8.4-10.2) mg/dL Calcium panel 08/02/19 Range/Units 04:15 Calcium 8.6 (8.4-10.2) mg/dL Phosphorus 1.90 L D (2.5-4.5) mg/dL Pituitary panel 08/02/19 Range/Units 04:15 Sodium 148 H (137-145) mmol/L Potassium 3.7 (3.6-5.0) mmol/L Chloride 109.7 H (98-107) mmol/L Carbon Dioxide 32 H (22-30) mmol/L BUN 19 (9-20) mg/dL Creatinine 0.8 (0.8-1.5) mg/dL Glucose 113 H (75-100) mg/dL Calcium 8.6 (8.4-10.2) mg/dL Adrenal panel 08/02/19 Range/Units 04:15 Sodium 148 H (137-145) mmol/L Potassium 3.7 (3.6-5.0) mmol/L Chloride 109.7 H (98-107) mmol/L Carbon Dioxide 32 H (22-30) mmol/L BUN 19 (9-20) mg/dL Creatinine 0.8 (0.8-1.5) mg/dL Glucose 113 H (75-100) mg/dL Calcium 8.6 (8.4-10.2) mg/dL
[2019-08-02] MEDS ORDERED: MAGNESIUM SULFATE 2 GM/50 ML BAG IV ONE (10:00)
[2019-08-02] MEDS ORDERED: POTASSIUM PHOSPHATE 30 MMOL in SODIUM CHLORIDE 0.9% 500 ML 500 ML IV ONE (10:30)
[2019-08-02] MEDS: FAMOTIDINE 20 MG/2 ML INJ IV SCH ×2 (11:05→21:54)
[2019-08-02] MEDS: ENOXAPARIN 40 MG/0.4 ML INJ SUB-Q SCH (11:05)
[2019-08-02] MEDS ORDERED: SODIUM CHLORIDE 0.9% 250ML 250 ML IV SCH (11:30)
--- NOTE | 2019-08-02 11:33 | Progress Note ---
Assessment and Plan Cultures: 07/21/2019 blood culture: No growth 07/30/2019 urine culture: no growth A/P: 19-year-old male with Down syndrome admitted with severe constipation and fecal impaction: 1) Septic shock: resolved. intra-abdominal source. s/p ex-lap on 07/23/2019, findings of multiple distinct areas of necrosis on transverse colon. Rest of intestines were normal. Gen. Surg following (see #3). 2) Acute renal failure: resolved. Creatinine normal. Dose adjust abx accordingly. 3) Fecal impaction, colonic distention with necrosis and shock: s/p ex-lap on 07/23/2019, findings of multiple distinct areas of necrosis on transverse colon. rest of intestines were normal. Gen. Surg following, s/p washout on 07/26/2019 along with abdominal colectomy with ileosigmoid anastomosis, open abdomen. Unde rwent abdominal closure on 07/28/2019. 4) Acute respiratory failure: extubated 07/31/2019. CXR with b/l opacities, fluid overload v/s atelectasis. Recs: countinue IV Cefepime, Flagyl, Fluconazole, possible d/c abx tomorrow if clinically he remains stable to improving d/w Dr. Ruiz. Meghan Williamson MD, FACP [facility] ([facility] C: [phone] O: [phone] F: [phone] Subjective Date of service: 08/02/19 Principal diagnosis: Respiratory Failure Interval history: Low to 101F fevers +. Otherwise awake, alert. No BM yet. Poor historian. Objective - Exam Narrative Exam: Physical Exam: Constitutional: awake, alert Head, Ears, Nose: Normocephalic, atraumatic. External ears, nose normal. NG tube + Eyes: Conjunctivae/corneas clear. No icterus. No ptosis. Neck: supple, no meningeal signs Cardiovascular: S1, S2 normal. Respiratory: Good air entry, clear to auscultation bilaterally GI: soft, midline dressing +, drain +, bowel sounds hypo. Mcpherson + Musculoskeletal: No pedal edema, no cyanosis. Skin: No rash or abscess Hem/Lymphatic: No palpable cervical or supraclavicular nodes. No lymphangitis Psych: no agitation Neurological: awake, alert - Constitutional Vitals: Vital Signs Temp Pulse Resp BP Pulse Ox 101.4 F H 107 H 26 H 157/96 94 08/02/19 08:00 08/02/19 11:00 08/02/19 11:00 08/02/19 11:00 08/02/19 10:30 Temperature -Last 24 Hours Temperature 101.1 F Temperature 101.4 F Temperature 100.6 F Temperature 100.7 F Temperature 100.7 F Temperature 99.0 F Temperature 98.7 F Temperature 101.1 F - Labs CBC & Chem 7: 08/02/19 04:15 08/02/19 04:15 Labs: Abnormal lab results 08/01/19 08/01/19 08/02/19 Range/Units 11:58 18:13 04:15 WBC (4.5-11.0) K/mm3 RBC (3.65-5.03) M/mm3 Hgb (11.8-15.2) gm/dl Hct (35.5-45.6) % RDW (13.2-15.2) % Lymph % (Auto) (13.4-35.0) % [place] % (Auto) (0.0-7.3) % [place] # (0.0-0.8) K/mm3 Seg Neutrophils % (40.0-70.0) % Seg Neutrophils # (1.8-7.7) K/mm3 Sodium 148 H (137-145) mmol/L Chloride 109.7 H (98-107) mmol/L Carbon Dioxide 32 H (22-30) mmol/L Glucose 113 H (75-100) mg/dL POC Glucose 115 H 113 H (70-105) Phosphorus 1.90 L D (2.5-4.5) mg/dL 08/02/19 08/02/19 Range/Units 04:15 05:16 WBC 14.0 H (4.5-11.0) K/mm3 RBC 3.12 L (3.65-5.03) M/mm3 Hgb 9.6 L (11.8-15.2) gm/dl Hct 29.3 L (35.5-45.6) % RDW 15.3 H (13.2-15.2) % Lymph % (Auto) 9.9 L (13.4-35.0) % [place] % (Auto) 8.6 H (0.0-7.3) % [place] # 1.2 H (0.0-0.8) K/mm3 Seg Neutrophils % 80.8 H (40.0-70.0) % Seg Neutrophils # 11.3 H (1.8-7.7) K/mm3 Sodium (137-145) mmol/L Chloride (98-107) mmol/L Carbon Dioxide (22-30) mmol/L Glucose (75-100) mg/dL POC Glucose 113 H (70-105) Phosphorus (2.5-4.5) mg/dL - Imaging and cardiology Chest x-ray: report reviewed, image reviewed (b/l opacities)
[2019-08-02] MEDS: FLUCONAZOLE 400 MG 200 ML IV SCH (11:40)
--- NOTE | 2019-08-02 11:44 | Progress Note ---
Assessment and Plan s/p ex-lap with partial colon resection (07/23), s/p abdominal colectomy with ileocolostomy (07/26), POD#3; s/p abdominal reexploration, peritoneal lavage, closure of open abdomen, placement of URMILA drain (07/28). Optimize BPs - pt remains strict NPO, initiate IV lopressor in setting of CMP. Consider ischemic evaluation to r/o ischemic CMP once medically stabilized. DDimer is noted to be elevated - pt was previously too unstable for V/Q scan although he may be able to tolerate v/q scan now. will defer to primary team. Fever noted overnight - ID team is following. The patient has been seen in conjunction with Dr. Vamsi Blake who agrees with the assessment and plan of care. - Patient Problems (1) Acute respiratory failure Current Visit: Yes Status: Acute Qualifiers: Respiratory failure complication: hypoxia Qualified Code(s): J96.01 - Acute respiratory failure with hypoxia (2) Ischemic necrosis of large intestine Current Visit: Yes Status: Acute (3) Constipation Current Visit: Yes Status: Acute (4) Intractable vomiting with nausea Current Visit: Yes Status: Acute (5) Sinus tachycardia Current Visit: Yes Status: Resolved (6) Hypotension Current Visit: Yes Status: Resolved (7) Acute renal failure Current Visit: Yes Status: Acute (8) Hyperkalemia Current Visit: Yes Status: Acute (9) Leukocytosis Current Visit: Yes Status: Acute (10) Lactic acidosis Current Visit: Yes Status: Acute (11) Elevated d-dimer Current Visit: Yes Status: Acute (12) Cardiomyopathy Current Visit: Yes Status: Acute Qualifiers: Cardiomyopathy type: unspecified Qualified Code(s): I42.9 - Cardiomyopathy, unspecified Subjective Date of service: 08/02/19 Principal diagnosis: Respiratory Failure Interval history: pt awake, agitated, restrained, in SR HR 70s on telemetry. fever noted overnight. Objective Last Vital Signs Temp 101.4 F H 08/02/19 08:00 Pulse 107 H 08/02/19 11:00 Resp 26 H 08/02/19 11:00 BP 157/96 08/02/19 11:00 Pulse Ox 94 08/02/19 11:35 - Physical Examination General: No Apparent Distress Neck: Positive: neck supple, trachea midline Cardiac: Positive: Reg Rate and Rhythm, S1/S2 Lungs: Positive: Decreased Breath Sounds Neuro: Positive: Other (awake) Abdomen: Positive: Other Skin: Positive: Other (abdominal surgical site). Negative: Rash Extremities: Absent: edema - Labs and Meds CBC 08/02/19 Range/Units 04:15 WBC 14.0 H (4.5-11.0) K/mm3 RBC 3.12 L (3.65-5.03) M/mm3 Hgb 9.6 L (11.8-15.2) gm/dl Hct 29.3 L (35.5-45.6) % Plt Count 235 (140-440) K/mm3 Lymph # 1.4 (1.2-5.4) K/mm3 [place] # 1.2 H (0.0-0.8) K/mm3 Eos # 0.1 (0.0-0.4) K/mm3 Baso # 0.0 (0.0-0.1) K/mm3 Comprehensive Metabolic Panel 08/02/19 Range/Units 04:15 Sodium 148 H (137-145) mmol/L Potassium 3.7 (3.6-5.0) mmol/L Chloride 109.7 H (98-107) mmol/L Carbon Dioxide 32 H (22-30) mmol/L BUN 19 (9-20) mg/dL Creatinine 0.8 (0.8-1.5) mg/dL Glucose 113 H (75-100) mg/dL Calcium 8.6 (8.4-10.2) mg/dL - Imaging and Cardiology EKG: report reviewed, image reviewed Stress echo: report reviewed, image reviewed Echo: report reviewed ( EF 25-30%, LV mildly dilated, impaired relaxation, trivial pericardial effusion, mod pleural effusion. ) - EKG Sinus rhythms and dysrhythmias: sinus tachycardia
--- NOTE | 2019-08-02 11:47 | Progress Note ---
Assessment and Plan 19 y/o male with acute respiratory failure s/p exploratory lap x 2 now on TPN, continuous NG suction and continued sedation. 1. Will ask mom to see if she can help us with teaching/showing him the incentive spirometer. I feel that atelectasis is the most likely culprit for persistent fevers. Spoke with ID as well. May consider stopping abx therapy after evaluation tomorrow. 2. Spoke with surgery. Binder is for protective purposes only. Will keep in place but no indication for thora at this time. Follow up repeat CT 3. NG tube stays to continuous suction and will continue TPN 4. Stopped lasix therapy 5. Given mental state, complexity of abdomen and prior surgery with necessary drains, safer for patient to remain in unit with 1:1 care CCT 31 minutes. Subjective Date of service: 08/02/19 Principal diagnosis: Respiratory Failure Interval history: Continues to have fevers despite clinically looking better. WC trending down. Repeat cultures are pending and patient remains on abx therapy. Objective Vital Signs - 12hr 08/02/19 08/02/19 08/02/19 00:00 00:21 00:30 Temperature 100.7 F H 100.7 F H Pulse Rate 80 74 Pulse Rate [ 89 From Monitor] Respiratory 22 26 H Rate Respiratory 24 Rate [Medial Abdomen] Blood Pressure 147/80 157/82 O2 Sat by Pulse 98 98 Oximetry 08/02/19 08/02/19 08/02/19 01:00 01:31 02:00 Temperature Pulse Rate 88 93 H 96 H Pulse Rate [ From Monitor] Respiratory 24 21 26 H Rate Respiratory Rate [Medial Abdomen] Blood Pressure 149/91 152/87 148/88 O2 Sat by Pulse 99 99 97 Oximetry 08/02/19 08/02/19 08/02/19 02:30 03:00 03:30 Temperature Pulse Rate 87 85 83 Pulse Rate [ From Monitor] Respiratory 21 22 21 Rate Respiratory Rate [Medial Abdomen] Blood Pressure 148/89 152/80 159/82 O2 Sat by Pulse 98 99 99 Oximetry 08/02/19 08/02/19 08/02/19 04:00 04:30 05:00 Temperature 100.6 F H Pulse Rate 86 83 71 Pulse Rate [ 81 From Monitor] Respiratory 24 20 28 H Rate Respiratory 24 Rate [Medial Abdomen] Blood Pressure 158/84 152/82 156/83 O2 Sat by Pulse 100 97 97 Oximetry 08/02/19 08/02/19 08/02/19 05:30 06:00 06:30 Temperature Pulse Rate 81 91 H 99 H Pulse Rate [ From Monitor] Respiratory 27 H 33 H 24 Rate Respiratory Rate [Medial Abdomen] Blood Pressure 135/82 134/92 152/83 O2 Sat by Pulse 93 91 95 Oximetry 08/02/19 08/02/19 08/02/19 07:01 07:31 08:00 Temperature 101.1 F H Pulse Rate 86 96 H 98 H Pulse Rate [ From Monitor] Respiratory 34 H 26 H 29 H Rate Respiratory 17 Rate [Medial Abdomen] Blood Pressure 169/59 153/96 158/98 O2 Sat by Pulse 91 96 96 Oximetry 08/02/19 08/02/19 08/02/19 08:30 08:38 09:00 Temperature Pulse Rate 77 81 Pulse Rate [ From Monitor] Respiratory 17 24 Rate Respiratory Rate [Medial Abdomen] Blood Pressure 167/89 161/83 O2 Sat by Pulse 98 96 97 Oximetry 08/02/19 08/02/19 08/02/19 09:30 10:01 10:30 Temperature Pulse Rate 70 75 101 H Pulse Rate [ From Monitor] Respiratory 25 H 16 28 H Rate Respiratory Rate [Medial Abdomen] Blood Pressure 165/96 165/96 157/86 O2 Sat by Pulse 88 88 94 Oximetry 08/02/19 08/02/19 11:00 11:35 Temperature Pulse Rate 107 H Pulse Rate [ From Monitor] Respiratory 26 H Rate Respiratory Rate [Medial Abdomen] Blood Pressure 157/96 O2 Sat by Pulse 94 Oximetry Constitutional: no acute distress Eyes: non-icteric ENT: oropharynx moist Neck: supple Effort: normal Ascultation: Bilateral: diminished breath sounds (due to obesity) Cardiovascular: regular rate and rhythm Gastrointestinal: normoactive bowel sounds, soft, other (morbidly obese abd) Integumentary: normal Extremities: no cyanosis, no edema, pink and warm Neurologic: normal mental status, non-focal exam, pupils equal and round, other (on vent) Psychiatric: mood appropriate, affect normal CBC and BMP: 08/02/19 04:15 08/02/19 04:15 ABG, PT/INR, D-dimer: ABG POC ABG pH 7.344 (7.35-7.45) L 07/30/19 05:23 ABG pH 7.406 pH Units (7.350-7.450) 07/31/19 04:42 POC ABG pCO2 48.8 (35-45) H 07/30/19 05:23 ABG pCO2 42.4 mm Hg 07/31/19 04:42 POC ABG pO2 77 (80-105) L 07/30/19 05:23 ABG pO2 85.1 mm Hg (80.0-90.0) 07/31/19 04:42 POC ABG HCO3 26.6 (22-26 mml/L) 07/30/19 05:23 POC ABG Total CO2 28 (23-27mmol/L) 07/30/19 05:23 POC ABG O2 Sat 94 07/30/19 05:23 ABG O2 Saturation 96.7 % (95.0-99.0) 07/31/19 04:42 PT/INR, D-dimer D-Dimer 886.89 ng/mlDDU (0-234) H 07/22/19 21:45 Abnormal lab findings: Abnormal Labs 07/21/19 07/21/19 07/22/19 19:02 19:02 10:50 WBC 12.1 H 13.7 H RBC 5.56 H Hgb 17.1 H Hct 52.9 H D MCV 95 H 95 H RDW Plt Count 130 L 137 L Lymph % (Auto) 7.2 L [place] % (Auto) 9.6 H Lymph # 0.9 L [place] # 1.2 H Seg Neutrophils % 82.8 H Seg Neuts % (Manual) Lymphocytes % (Manual) Monocytes % (Manual) Nucleated RBC % Seg Neutrophils # 10.0 H Seg Neutrophils # Man Lymphocytes # (Manual) Monocytes # (Manual) D-Dimer POC ABG pH ABG pH POC ABG pCO2 POC ABG pO2 ABG pO2 ABG O2 Saturation ABG Hemoglobin Oxyhemoglobin Sodium 136 L Potassium Chloride 95.9 L Carbon Dioxide BUN Creatinine Glucose 163 H POC Glucose Lactic Acid Calcium Phosphorus Magnesium Total Bilirubin AST NT-Pro-B Natriuret Pep Total Protein Albumin Lipase 10 L 07/22/19 07/22/19 07/22/19 10:50 15:33 15:33 WBC 13.1 H RBC 5.10 H Hgb 15.9 H Hct 49.0 H MCV 96 H RDW Plt Count 127 L Lymph % (Auto) [place] % (Auto) Lymph # [place] # Seg Neutrophils % Seg Neuts % (Manual) Lymphocytes % (Manual) Monocytes % (Manual) Nucleated RBC % Seg Neutrophils # Seg Neutrophils # Man Lymphocytes # (Manual) Monocytes # (Manual) D-Dimer POC ABG pH ABG pH POC ABG pCO2 POC ABG pO2 ABG pO2 ABG O2 Saturation ABG Hemoglobin Oxyhemoglobin Sodium 136 L Potassium 5.3 H D 6.0 H Chloride 96.7 L Carbon Dioxide 17 L BUN 22 H 29 H Creatinine 2.0 H D 2.2 H Glucose 129 H 121 H POC Glucose Lactic Acid Calcium 8.2 L Phosphorus 4.70 H Magnesium 3.10 H Total Bilirubin AST NT-Pro-B Natriuret Pep Total Protein Albumin Lipase 07/22/19 07/22/19 07/22/19 18:19 18:42 21:45 WBC RBC Hgb Hct MCV RDW Plt Count Lymph % (Auto) [place] % (Auto) Lymph # [place] # Seg Neutrophils % Seg Neuts % (Manual) Lymphocytes % (Manual) Monocytes % (Manual) Nucleated RBC % Seg Neutrophils # Seg Neutrophils # Man Lymphocytes # (Manual) Monocytes # (Manual) D-Dimer 886.89 H POC ABG pH 7.197 L ABG pH POC ABG pCO2 45.2 H POC ABG pO2 ABG pO2 ABG O2 Saturation ABG Hemoglobin Oxyhemoglobin Sodium Potassium Chloride Carbon Dioxide BUN Creatinine Glucose POC Glucose 107 H Lactic Acid Calcium Phosphorus Magnesium Total Bilirubin AST NT-Pro-B Natriuret Pep Total Protein Albumin Lipase 07/22/19 07/22/19 07/22/19 21:45 21:45 21:45 WBC RBC Hgb Hct MCV RDW Plt Count Lymph % (Auto) [place] % (Auto) Lymph # [place] # Seg Neutrophils % Seg Neuts % (Manual) Lymphocytes % (Manual) Monocytes % (Manual) Nucleated RBC % Seg Neutrophils # Seg Neutrophils # Man Lymphocytes # (Manual) Monocytes # (Manual) D-Dimer POC ABG pH ABG pH POC ABG pCO2 POC ABG pO2 ABG pO2 ABG O2 Saturation ABG Hemoglobin Oxyhemoglobin Sodium 136 L Potassium 5.6 H Chloride Carbon Dioxide 20 L BUN 38 H Creatinine 2.6 H Glucose 63 L POC Glucose Lactic Acid 3.10 H* Calcium 8.2 L Phosphorus Magnesium Total Bilirubin AST NT-Pro-B Natriuret Pep 5407 H Total Protein Albumin Lipase 07/23/19 07/23/19 07/23/19 02:11 02:50 02:50 WBC 15.0 H RBC Hgb Hct MCV 95 H RDW Plt Count 118 L Lymph % (Auto) [place] % (Auto) Lymph # [place] # Seg Neutrophils % Seg Neuts % (Manual) Lymphocytes % (Manual) 9.0 L Monocytes % (Manual) 17.0 H Nucleated RBC % Seg Neutrophils # Seg Neutrophils # Man Lymphocytes # (Manual) Monocytes # (Manual) 2.6 H D-Dimer POC ABG pH ABG pH POC ABG pCO2 POC ABG pO2 ABG pO2 ABG O2 Saturation ABG Hemoglobin Oxyhemoglobin Sodium Potassium Chloride Carbon Dioxide BUN Creatinine Glucose POC Glucose 69 L Lactic Acid 3.30 H* Calcium Phosphorus Magnesium Total Bilirubin AST NT-Pro-B Natriuret Pep Total Protein Albumin Lipase 07/23/19 07/23/19 07/23/19 02:50 03:09 04:30 WBC RBC Hgb Hct MCV RDW Plt Count Lymph % (Auto) [place] % (Auto) Lymph # [place] # Seg Neutrophils % Seg Neuts % (Manual) Lymphocytes % (Manual) Monocytes % (Manual) Nucleated RBC % Seg Neutrophils # Seg Neutrophils # Man Lymphocytes # (Manual) Monocytes # (Manual) D-Dimer POC ABG pH 7.296 L ABG pH POC ABG pCO2 POC ABG pO2 66 L ABG pO2 ABG O2 Saturation ABG Hemoglobin Oxyhemoglobin Sodium 134 L Potassium 7.5 H* D Chloride Carbon Dioxide 21 L BUN 47 H Creatinine 2.7 H Glucose POC Glucose Lactic Acid 3.50 H* Calcium 7.6 L Phosphorus Magnesium 2.90 H Total Bilirubin AST 60 H NT-Pro-B Natriuret Pep Total Protein 5.5 L D Albumin 2.5 L Lipase 07/23/19 07/23/19 07/23/19 07:30 09:03 09:03 WBC RBC Hgb Hct MCV RDW Plt Count Lymph % (Auto) [place] % (Auto) Lymph # [place] # Seg Neutrophils % Seg Neuts % (Manual) Lymphocytes % (Manual) Monocytes % (Manual) Nucleated RBC % Seg Neutrophils # Seg Neutrophils # Man Lymphocytes # (Manual) Monocytes # (Manual) D-Dimer POC ABG pH ABG pH POC ABG pCO2 POC ABG pO2 ABG pO2 ABG O2 Saturation ABG Hemoglobin Oxyhemoglobin Sodium 136 L Potassium 6.6 H* 7.1 H* Chloride Carbon Dioxide 20 L BUN 50 H 49 H Creatinine 2.6 H 2.4 H Glucose 67 L POC Glucose Lactic Acid 4.10 H* Calcium 7.6 L 7.7 L Phosphorus Magnesium Total Bilirubin AST NT-Pro-B Natriuret Pep Total Protein Albumin Lipase 07/23/19 07/23/19 07/23/19 10:52 13:13 14:48 WBC RBC Hgb Hct MCV RDW Plt Count Lymph % (Auto) [place] % (Auto) Lymph # [place] # Seg Neutrophils % Seg Neuts % (Manual) Lymphocytes % (Manual) Monocytes % (Manual) Nucleated RBC % Seg Neutrophils # Seg Neutrophils # Man Lymphocytes # (Manual) Monocytes # (Manual) D-Dimer POC ABG pH 7.280 L ABG pH POC ABG pCO2 48.7 H POC ABG pO2 ABG pO2 ABG O2 Saturation ABG Hemoglobin Oxyhemoglobin Sodium Potassium Chloride Carbon Dioxide BUN Creatinine Glucose POC Glucose 123 H Lactic Acid 4.10 H* Calcium Phosphorus Magnesium Total Bilirubin AST NT-Pro-B Natriuret Pep Total Protein Albumin Lipase 07/23/19 07/23/19 07/23/19 15:56 17:35 Unknown WBC RBC Hgb Hct MCV RDW Plt Count Lymph % (Auto) [place] % (Auto) Lymph # [place] # Seg Neutrophils % Seg Neuts % (Manual) Lymphocytes % (Manual) Monocytes % (Manual) Nucleated RBC % Seg Neutrophils # Seg Neutrophils # Man Lymphocytes # (Manual) Monocytes # (Manual) D-Dimer POC ABG pH ABG pH POC ABG pCO2 POC ABG pO2 ABG pO2 ABG O2 Saturation ABG Hemoglobin Oxyhemoglobin Sodium Potassium Chloride Carbon Dioxide BUN Creatinine Glucose POC Glucose Lactic Acid 3.00 H* 4.10 H* 4.90 H* Calcium Phosphorus Magnesium Total Bilirubin AST NT-Pro-B Natriuret Pep Total Protein Albumin Lipase 07/23/19 07/24/19 07/24/19 Unknown 00:05 00:40 WBC RBC Hgb Hct MCV RDW Plt Count Lymph % (Auto) [place] % (Auto) Lymph # [place] # Seg Neutrophils % Seg Neuts % (Manual) Lymphocytes % (Manual) Monocytes % (Manual) Nucleated RBC % Seg Neutrophils # Seg Neutrophils # Man Lymphocytes # (Manual) Monocytes # (Manual) D-Dimer POC ABG pH ABG pH POC ABG pCO2 POC ABG pO2 ABG pO2 151.3 H ABG O2 Saturation ABG Hemoglobin Oxyhemoglobin Sodium Potassium 5.6 H D Chloride Carbon Dioxide BUN 29 H Creatinine Glucose 128 H POC Glucose 118 H Lactic Acid Calcium 7.4 L Phosphorus Magnesium Total Bilirubin AST NT-Pro-B Natriuret Pep Total Protein Albumin Lipase 07/24/19 07/24/19 07/24/19 04:00 05:37 05:37 WBC RBC Hgb Hct MCV RDW Plt Count 89 L Lymph % (Auto) [place] % (Auto) Lymph # [place] # Seg Neutrophils % Seg Neuts % (Manual) Lymphocytes % (Manual) 5.0 L Monocytes % (Manual) Nucleated RBC % Seg Neutrophils # Seg Neutrophils # Man Lymphocytes # (Manual) 0.5 L Monocytes # (Manual) D-Dimer POC ABG pH ABG pH POC ABG pCO2 POC ABG pO2 ABG pO2 ABG O2 Saturation ABG Hemoglobin Oxyhemoglobin Sodium Potassium Chloride Carbon Dioxide BUN 29 H Creatinine Glucose 120 H POC Glucose 123 H Lactic Acid Calcium 7.4 L Phosphorus 2.30 L D Magnesium Total Bilirubin 1.40 H AST 107 H NT-Pro-B Natriuret Pep Total Protein 5.3 L Albumin 2.5 L Lipase 07/24/19 07/24/19 07/24/19 05:37 10:18 18:44 WBC RBC Hgb Hct MCV RDW Plt Count Lymph % (Auto) [place] % (Auto) Lymph # [place] # Seg Neutrophils % Seg Neuts % (Manual) Lymphocytes % (Manual) Monocytes % (Manual) Nucleated RBC % Seg Neutrophils # Seg Neutrophils # Man Lymphocytes # (Manual) Monocytes # (Manual) D-Dimer POC ABG pH 7.464 H ABG pH POC ABG pCO2 POC ABG pO2 125 H ABG pO2 ABG O2 Saturation ABG Hemoglobin Oxyhemoglobin Sodium Potassium Chloride Carbon Dioxide BUN Creatinine Glucose POC Glucose 130 H Lactic Acid 3.90 H* Calcium Phosphorus Magnesium Total Bilirubin AST NT-Pro-B Natriuret Pep Total Protein Albumin Lipase 07/24/19 07/25/19 07/25/19 18:52 04:45 04:45 WBC RBC Hgb Hct MCV RDW Plt Count 91 L Lymph % (Auto) [place] % (Auto) Lymph # [place] # Seg Neutrophils % Seg Neuts % (Manual) Lymphocytes % (Manual) Monocytes % (Manual) Nucleated RBC % Seg Neutrophils # Seg Neutrophils # Man Lymphocytes # (Manual) Monocytes # (Manual) D-Dimer POC ABG pH ABG pH POC ABG pCO2 POC ABG pO2 ABG pO2 ABG O2 Saturation ABG Hemoglobin Oxyhemoglobin Sodium Potassium Chloride Carbon Dioxide BUN 24 H Creatinine Glucose POC Glucose 107 H Lactic Acid Calcium 7.9 L Phosphorus 2.20 L Magnesium Total Bilirubin AST NT-Pro-B Natriuret Pep Total Protein Albumin Lipase 07/25/19 07/26/19 07/26/19 05:32 02:20 05:00 WBC RBC Hgb Hct MCV RDW Plt Count Lymph % (Auto) [place] % (Auto) Lymph # [place] # Seg Neutrophils % Seg Neuts % (Manual) Lymphocytes % (Manual) Monocytes % (Manual) Nucleated RBC % Seg Neutrophils # Seg Neutrophils # Man Lymphocytes # (Manual) Monocytes # (Manual) D-Dimer POC ABG pH ABG pH POC ABG pCO2 POC ABG pO2 ABG pO2 70.6 L ABG O2 Saturation 94.7 L ABG Hemoglobin 12.0 L Oxyhemoglobin 92.8 L Sodium 148 H Potassium Chloride 112.1 H Carbon Dioxide BUN Creatinine 0.6 L Glucose 71 L POC Glucose 62 L Lactic Acid Calcium 8.3 L Phosphorus Magnesium Total Bilirubin AST NT-Pro-B Natriuret Pep Total Protein Albumin Lipase 07/26/19 07/26/19 07/27/19 05:45 05:47 05:00 WBC 13.1 H RBC Hgb Hct MCV RDW 15.8 H Plt Count 113 L Lymph % (Auto) [place] % (Auto) Lymph # [place] # Seg Neutrophils % Seg Neuts % (Manual) Lymphocytes % (Manual) Monocytes % (Manual) 16.0 H Nucleated RBC % 2.0 H Seg Neutrophils # Seg Neutrophils # Man 8.1 H Lymphocytes # (Manual) Monocytes # (Manual) 2.1 H D-Dimer POC ABG pH ABG pH 7.309 L POC ABG pCO2 POC ABG pO2 ABG pO2 73.3 L ABG O2 Saturation 93.9 L ABG Hemoglobin 12.4 L Oxyhemoglobin 92.1 L Sodium Potassium Chloride Carbon Dioxide BUN Creatinine Glucose POC Glucose 68 L Lactic Acid Calcium Phosphorus Magnesium Total Bilirubin AST NT-Pro-B Natriuret Pep Total Protein Albumin Lipase 07/27/19 07/27/19 07/27/19 05:00 06:10 09:49 WBC RBC Hgb Hct MCV RDW Plt Count Lymph % (Auto) [place] % (Auto) Lymph # [place] # Seg Neutrophils % Seg Neuts % (Manual) Lymphocytes % (Manual) Monocytes % (Manual) Nucleated RBC % Seg Neutrophils # Seg Neutrophils # Man Lymphocytes # (Manual) Monocytes # (Manual) D-Dimer POC ABG pH ABG pH POC ABG pCO2 POC ABG pO2 ABG pO2 ABG O2 Saturation ABG Hemoglobin 12.6 L Oxyhemoglobin 94.2 L Sodium 149 H Potassium Chloride 114.6 H Carbon Dioxide BUN Creatinine Glucose POC Glucose 110 H Lactic Acid Calcium 7.9 L Phosphorus Magnesium Total Bilirubin AST NT-Pro-B Natriuret Pep Total Protein Albumin Lipase 07/28/19 07/28/19 07/29/19 04:12 04:12 05:15 WBC 15.3 H RBC Hgb 11.5 L Hct 34.4 L MCV RDW 15.9 H Plt Count Lymph % (Auto) [place] % (Auto) Lymph # [place] # Seg Neutrophils % Seg Neuts % (Manual) Lymphocytes % (Manual) Monocytes % (Manual) Nucleated RBC % Seg Neutrophils # Seg Neutrophils # Man Lymphocytes # (Manual) Monocytes # (Manual) D-Dimer POC ABG pH ABG pH POC ABG pCO2 POC ABG pO2 ABG pO2 ABG O2 Saturation ABG Hemoglobin Oxyhemoglobin Sodium 149 H 149 H Potassium Chloride 113.3 H 113.9 H Carbon Dioxide BUN Creatinine 0.7 L 0.6 L Glucose 109 H POC Glucose Lactic Acid Calcium 8.0 L 8.0 L Phosphorus Magnesium 1.60 L Total Bilirubin AST NT-Pro-B Natriuret Pep Total Protein 4.2 L D Albumin 2.0 L Lipase 07/29/19 07/29/19 07/29/19 05:34 05:34 17:59 WBC RBC Hgb Hct MCV RDW Plt Count Lymph % (Auto) [place] % (Auto) Lymph # [place] # Seg Neutrophils % Seg Neuts % (Manual) Lymphocytes % (Manual) Monocytes % (Manual) Nucleated RBC % Seg Neutrophils # Seg Neutrophils # Man Lymphocytes # (Manual) Monocytes # (Manual) D-Dimer POC ABG pH ABG pH POC ABG pCO2 46.9 H POC ABG pO2 65 L ABG pO2 ABG O2 Saturation ABG Hemoglobin Oxyhemoglobin Sodium Potassium Chloride Carbon Dioxide BUN Creatinine Glucose POC Glucose 107 H 110 H Lactic Acid Calcium Phosphorus Magnesium Total Bilirubin AST NT-Pro-B Natriuret Pep Total Protein Albumin Lipase 07/30/19 07/30/19 07/30/19 04:46 04:46 05:23 WBC 21.2 H RBC 3.36 L Hgb 10.5 L Hct 31.4 L MCV RDW 15.8 H Plt Count Lymph % (Auto) [place] % (Auto) Lymph # [place] # Seg Neutrophils % Seg Neuts % (Manual) Lymphocytes % (Manual) Monocytes % (Manual) Nucleated RBC % Seg Neutrophils # Seg Neutrophils # Man Lymphocytes # (Manual) Monocytes # (Manual) D-Dimer POC ABG pH 7.344 L ABG pH POC ABG pCO2 48.8 H POC ABG pO2 77 L ABG pO2 ABG O2 Saturation ABG Hemoglobin Oxyhemoglobin Sodium 146 H Potassium Chloride 110.8 H Carbon Dioxide BUN 22 H Creatinine 0.7 L Glucose 101 H POC Glucose Lactic Acid Calcium 7.9 L Phosphorus 4.60 H Magnesium Total Bilirubin AST NT-Pro-B Natriuret Pep Total Protein Albumin Lipase 07/30/19 07/31/19 07/31/19 12:17 04:42 08:10 WBC 15.4 H RBC 3.11 L Hgb 9.8 L Hct 29.3 L MCV RDW 15.8 H Plt Count Lymph % (Auto) [place] % (Auto) Lymph # [place] # Seg Neutrophils % Seg Neuts % (Manual) 81.0 H Lymphocytes % (Manual) 10.0 L Monocytes % (Manual) Nucleated RBC % Seg Neutrophils # Seg Neutrophils # Man 12.5 H Lymphocytes # (Manual) Monocytes # (Manual) D-Dimer POC ABG pH ABG pH POC ABG pCO2 POC ABG pO2 ABG pO2 ABG O2 Saturation ABG Hemoglobin 10.1 L Oxyhemoglobin 94.8 L Sodium Potassium Chloride Carbon Dioxide BUN Creatinine Glucose POC Glucose 107 H Lactic Acid Calcium Phosphorus Magnesium Total Bilirubin AST NT-Pro-B Natriuret Pep Total Protein Albumin Lipase 07/31/19 07/31/19 07/31/19 08:10 12:36 17:56 WBC RBC Hgb Hct MCV RDW Plt Count Lymph % (Auto) [place] % (Auto) Lymph # [place] # Seg Neutrophils % Seg Neuts % (Manual) Lymphocytes % (Manual) Monocytes % (Manual) Nucleated RBC % Seg Neutrophils # Seg Neutrophils # Man Lymphocytes # (Manual) Monocytes # (Manual) D-Dimer POC ABG pH ABG pH POC ABG pCO2 POC ABG pO2 ABG pO2 ABG O2 Saturation ABG Hemoglobin Oxyhemoglobin Sodium 146 H Potassium Chloride 110.2 H Carbon Dioxide BUN 22 H Creatinine 0.7 L Glucose 102 H POC Glucose 119 H 138 H Lactic Acid Calcium 8.3 L Phosphorus Magnesium Total Bilirubin AST NT-Pro-B Natriuret Pep Total Protein Albumin Lipase 08/01/19 08/01/19 08/01/19 00:02 05:15 05:15 WBC 18.0 H RBC 3.12 L Hgb 9.7 L Hct 30.3 L MCV 97 H RDW 16.0 H Plt Count Lymph % (Auto) [place] % (Auto) Lymph # [place] # Seg Neutrophils % Seg Neuts % (Manual) Lymphocytes % (Manual) Monocytes % (Manual) Nucleated RBC % Seg Neutrophils # Seg Neutrophils # Man Lymphocytes # (Manual) Monocytes # (Manual) D-Dimer POC ABG pH ABG pH POC ABG pCO2 POC ABG pO2 ABG pO2 ABG O2 Saturation ABG Hemoglobin Oxyhemoglobin Sodium 149 H Potassium Chloride 112.0 H Carbon Dioxide BUN 28 H Creatinine Glucose POC Glucose 119 H Lactic Acid Calcium Phosphorus 5.60 H D Magnesium Total Bilirubin AST NT-Pro-B Natriuret Pep Total Protein Albumin Lipase 08/01/19 08/01/19 08/01/19 05:47 11:58 18:13 WBC RBC Hgb Hct MCV RDW Plt Count Lymph % (Auto) [place] % (Auto) Lymph # [place] # Seg Neutrophils % Seg Neuts % (Manual) Lymphocytes % (Manual) Monocytes % (Manual) Nucleated RBC % Seg Neutrophils # Seg Neutrophils # Man Lymphocytes # (Manual) Monocytes # (Manual) D-Dimer POC ABG pH ABG pH POC ABG pCO2 POC ABG pO2 ABG pO2 ABG O2 Saturation ABG Hemoglobin Oxyhemoglobin Sodium Potassium Chloride Carbon Dioxide BUN Creatinine Glucose POC Glucose 142 H 115 H 113 H Lactic Acid Calcium Phosphorus Magnesium Total Bilirubin AST NT-Pro-B Natriuret Pep Total Protein Albumin Lipase 08/02/19 08/02/19 08/02/19 04:15 04:15 05:16 WBC 14.0 H RBC 3.12 L Hgb 9.6 L Hct 29.3 L MCV RDW 15.3 H Plt Count Lymph % (Auto) 9.9 L [place] % (Auto) 8.6 H Lymph # [place] # 1.2 H Seg Neutrophils % 80.8 H Seg Neuts % (Manual) Lymphocytes % (Manual) Monocytes % (Manual) Nucleated RBC % Seg Neutrophils # 11.3 H Seg Neutrophils # Man Lymphocytes # (Manual) Monocytes # (Manual) D-Dimer POC ABG pH ABG pH POC ABG pCO2 POC ABG pO2 ABG pO2 ABG O2 Saturation ABG Hemoglobin Oxyhemoglobin Sodium 148 H Potassium Chloride 109.7 H Carbon Dioxide 32 H BUN Creatinine Glucose 113 H POC Glucose 113 H Lactic Acid Calcium Phosphorus 1.90 L D Magnesium Total Bilirubin AST NT-Pro-B Natriuret Pep Total Protein Albumin Lipase
[2019-08-02] MEDS: VALPROATE SODIUM 500 MG in SODIUM CHLORIDE 0.9% 100 ML IV SCH ×2 (12:14→21:55)
[2019-08-02] MEDS: METOPROLOL TARTRATE 5 MG/5 ML INJ IV SCH ×2 (16:49→21:54)
--- NOTE | 2019-08-02 16:57 | Progress Note ---
Assessment and Plan Assessment and plan: Patient is 19 yo with Downs syndrome from [facility] home. he initially presented with abdominal pain, nausea and vomiting. he was seen and examined in ED. CT Abd showed severe constipation. he was given Fleets enema, admitted. His BMP was WNL. By next day Cr was 2.2 and he had hyperkalemia of 5.3. Repeat hrs later showed worse Cr 2.2 and Potassium went up to 6.0. and he had developed shortness of breath, desaturation so was transferred to ICU. 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 Hold any tube feeds for now. Would ideally like to see resumption of bowel function prior to starting tube feeds." Septic shock: intra-abdominal source. s/p ex-lap on 07/23/2019, Per surgery findings of multiple distinct areas of necrosis on transverse colon. Rest of intestines were normal. IV Cefepime, Flagyl, Fluconazole, will be discontinued tomorrow Discontinued femoral Line COLUMBA due to ATN-Resolved Nephrology following Cardiomyopathy -Cardiology following, Ischemic work up when more stable V/Q scan when more stable lactic acidosis Secondary to ischemic Bowel Hyperkalemia-RESOLVED Diarrhea followed by constipation; patient is currently on ileostomy Thrombocytopenia - Resolved Sinus tachycardia - resolved Downs syndrome supportive care full code status Prognosis guarded Mother updated The high probability of a clinically significant, sudden or life threatening deterioration of the [renal, GI,] system(s) required my full and direct attention, intervention and personal management. The aggregate critical care time was [35] minutes. This time is in addition to time spent performing reported procedures but includes the following: [x] Data Review and interpretation [x] Patient assessment and monitoring of vital signs [x] Documentation [x] Medication orders and management History Interval history: Patient was seen and evaluated this morning, patient was alert but not able to communicate. Hospitalist Physical - Physical exam Narrative exam: Patient was extubated yesterday. The patient appeared well nourished and normally developed. Vital signs as documented. Head exam is unremarkable. No scleral icterus . Neck is without jugular venous distension, thyromegaly, or carotid bruits. Lungs are clear to auscultation. Cardiac exam reveals regular rate and Rhythm. Abdominal exam reveals normal bowel sounds. Extremities are nonedematous and both femoral and pedal pulses are normal. 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 - Constitutional Vitals: Temp Pulse Resp BP Pulse Ox 99.3 F 107 H 26 H 157/96 98 08/02/19 15:51 08/02/19 11:00 08/02/19 11:00 08/02/19 11:00 08/02/19 12:23 General appearance: Present: no acute distress, well-nourished Results - Labs CBC & Chem 7: 08/02/19 04:15 08/02/19 04:15 Labs: Laboratory Last Values WBC 14.0 K/mm3 (4.5-11.0) H 08/02/19 04:15 RBC 3.12 M/mm3 (3.65-5.03) L 08/02/19 04:15 Hgb 9.6 gm/dl (11.8-15.2) L 08/02/19 04:15 Hct 29.3 % (35.5-45.6) L 08/02/19 04:15 MCV 94 fl (84-94) 08/02/19 04:15 MCH 31 pg (28-32) 08/02/19 04:15 MCHC 33 % (32-34) 08/02/19 04:15 RDW 15.3 % (13.2-15.2) H 08/02/19 04:15 Plt Count 235 K/mm3 (140-440) 08/02/19 04:15 Lymph % (Auto) 9.9 % (13.4-35.0) L 08/02/19 04:15 Dane % (Auto) 8.6 % (0.0-7.3) H 08/02/19 04:15 Eos % (Auto) 0.6 % (0.0-4.3) 08/02/19 04:15 Baso % (Auto) 0.1 % (0.0-1.8) 08/02/19 04:15 Lymph # 1.4 K/mm3 (1.2-5.4) 08/02/19 04:15 Dane # 1.2 K/mm3 (0.0-0.8) H 08/02/19 04:15 Eos # 0.1 K/mm3 (0.0-0.4) 08/02/19 04:15 Baso # 0.0 K/mm3 (0.0-0.1) 08/02/19 04:15 Add Manual Diff Complete 07/31/19 08:10 Total Counted 100 07/31/19 08:10 Seg Neutrophils % 80.8 % (40.0-70.0) H 08/02/19 04:15 Seg Neuts % (Manual) 81.0 % (40.0-70.0) H 07/31/19 08:10 Band Neutrophils % 0 % 07/31/19 08:10 Lymphocytes % (Manual) 10.0 % (13.4-35.0) L 07/31/19 08:10 Reactive Lymphs % (Man) 0 % 07/31/19 08:10 Monocytes % (Manual) 2.0 % (0.0-7.3) 07/31/19 08:10 Eosinophils % (Manual) 0 % (0.0-4.3) 07/31/19 08:10 Basophils % (Manual) 0 % (0.0-1.8) 07/31/19 08:10 Metamyelocytes % 7.0 % 07/31/19 08:10 Myelocytes % 0 % 07/31/19 08:10 Promyelocytes % 0 % 07/31/19 08:10 Blast Cells % 0 % 07/31/19 08:10 Nucleated RBC % Not Reportable 07/31/19 08:10 Seg Neutrophils # 11.3 K/mm3 (1.8-7.7) H 08/02/19 04:15 Seg Neutrophils # Man 12.5 K/mm3 (1.8-7.7) H 07/31/19 08:10 Band Neutrophils # 0.0 K/mm3 07/31/19 08:10 Lymphocytes # (Manual) 1.5 K/mm3 (1.2-5.4) 07/31/19 08:10 Abs React Lymphs (Man) 0.0 K/mm3 07/31/19 08:10 Monocytes # (Manual) 0.3 K/mm3 (0.0-0.8) 07/31/19 08:10 Eosinophils # (Manual) 0.0 K/mm3 (0.0-0.4) 07/31/19 08:10 Basophils # (Manual) 0.0 K/mm3 (0.0-0.1) 07/31/19 08:10 Metamyelocytes # 1.1 K/mm3 07/31/19 08:10 Myelocytes # 0.0 K/mm3 07/31/19 08:10 Promyelocytes # 0.0 K/mm3 07/31/19 08:10 Blast Cells # 0.0 K/mm3 07/31/19 08:10 WBC Morphology Not Reportable 07/31/19 08:10 Hypersegmented Neuts Not Reportable 07/31/19 08:10 Hyposegmented Neuts Not Reportable 07/31/19 08:10 Hypogranular Neuts Not Reportable 07/31/19 08:10 Smudge Cells Not Reportable 07/31/19 08:10 Toxic Granulation Not Reportable 07/31/19 08:10 Toxic Vacuolation Not Reportable 07/31/19 08:10 Dohle Bodies Not Reportable 07/31/19 08:10 Pelger-Huet Anomaly Not Reportable 07/31/19 08:10 Alea Rods Not Reportable 07/31/19 08:10 Platelet Estimate Consistent w auto 07/31/19 08:10 Clumped Platelets Not Reportable 07/31/19 08:10 Plt Clumps, EDTA Not Reportable 07/31/19 08:10 Large Platelets Not Reportable 07/31/19 08:10 Giant Platelets Not Reportable 07/31/19 08:10 Platelet Satelliting Not Reportable 07/31/19 08:10 Plt Morphology Comment Not Reportable 07/31/19 08:10 RBC Morphology Not Reportable 07/31/19 08:10 Dimorphic RBCs Not Reportable 07/31/19 08:10 Polychromasia Not Reportable 07/31/19 08:10 Hypochromasia Not Reportable 07/31/19 08:10 Poikilocytosis Not Reportable 07/31/19 08:10 Anisocytosis Few 07/31/19 08:10 Microcytosis Not Reportable 07/31/19 08:10 Macrocytosis Not Reportable 07/31/19 08:10 Spherocytes Not Reportable 07/31/19 08:10 Pappenheimer Bodies Not Reportable 07/31/19 08:10 Sickle Cells Not Reportable 07/31/19 08:10 Target Cells Not Reportable 07/31/19 08:10 Tear Drop Cells Not Reportable 07/31/19 08:10 Ovalocytes Not Reportable 07/31/19 08:10 Helmet Cells Not Reportable 07/31/19 08:10 Woodard-Clutier Bodies Not Reportable 07/31/19 08:10 Saxton Rings Not Reportable 07/31/19 08:10 Kaylyn Cells Not Reportable 07/31/19 08:10 Bite Cells Not Reportable 07/31/19 08:10 Crenated Cell Not Reportable 07/31/19 08:10 Elliptocytes Not Reportable 07/31/19 08:10 Acanthocytes (Spur) Not Reportable 07/31/19 08:10 Rouleaux Not Reportable 07/31/19 08:10 Hemoglobin C Crystals Not Reportable 07/31/19 08:10 Schistocytes Not Reportable 07/31/19 08:10 Malaria parasites Not Reportable 07/31/19 08:10 Emanuel Bodies Not Reportable 07/31/19 08:10 Hem Pathologist Commnt No 07/31/19 08:10 D-Dimer 886.89 ng/mlDDU (0-234) H 07/22/19 21:45 Heparin Anti-Xa, Unfract Negative (Negative) 07/24/19 09:18 POC ABG pH 7.344 (7.35-7.45) L 07/30/19 05:23 ABG pH 7.406 pH Units (7.350-7.450) 07/31/19 04:42 POC ABG pCO2 48.8 (35-45) H 07/30/19 05:23 ABG pCO2 42.4 mm Hg 07/31/19 04:42 POC ABG pO2 77 (80-105) L 07/30/19 05:23 ABG pO2 85.1 mm Hg (80.0-90.0) 07/31/19 04:42 POC ABG HCO3 26.6 (22-26 mml/L) 07/30/19 05:23 ABG HCO3 26.0 mmol/L (20.0-26.0) 07/31/19 04:42 POC ABG Total CO2 28 (23-27mmol/L) 07/30/19 05:23 POC ABG O2 Sat 94 07/30/19 05:23 ABG O2 Saturation 96.7 % (95.0-99.0) 07/31/19 04:42 ABG O2 Content 13.6 (0.0-44) 07/31/19 04:42 POC ABG Base Excess 1 ((-2) - (+3)mmol/L) 07/30/19 05:23 ABG Base Excess 1.2 mmol/L (-2.0-3.0) 07/31/19 04:42 ABG Hemoglobin 10.1 gm/dl (14.0-18.0) L 07/31/19 04:42 ABG Carboxyhemoglobin 1.5 % (0.0-5.0) 07/31/19 04:42 ABG Methemoglobin 0.4 % (0.0-1.5) 07/31/19 04:42 Oxyhemoglobin 94.8 % (95.0-99.0) L 07/31/19 04:42 FiO2 40 % 07/31/19 04:42 Sodium 148 mmol/L (137-145) H 08/02/19 04:15 Potassium 3.7 mmol/L (3.6-5.0) 08/02/19 04:15 Chloride 109.7 mmol/L (98-107) H 08/02/19 04:15 Carbon Dioxide 32 mmol/L (22-30) H 08/02/19 04:15 Anion Gap 10 mmol/L 08/02/19 04:15 BUN 19 mg/dL (9-20) 08/02/19 04:15 Creatinine 0.8 mg/dL (0.8-1.5) 08/02/19 04:15 Estimated GFR > 60 ml/min 08/02/19 04:15 BUN/Creatinine Ratio 24 % 08/02/19 04:15 Glucose 113 mg/dL (75-100) H 08/02/19 04:15 POC Glucose 123 (70-105) H 08/02/19 11:53 Lactic Acid 1.10 mmol/L (0.7-2.0) 07/25/19 09:16 Calcium 8.6 mg/dL (8.4-10.2) 08/02/19 04:15 Phosphorus 1.90 mg/dL (2.5-4.5) L D 08/02/19 04:15 Magnesium 1.80 mg/dL (1.7-2.3) 08/02/19 04:15 Total Bilirubin 0.80 mg/dL (0.1-1.2) 07/28/19 04:12 Direct Bilirubin 0.2 mg/dL (0-0.2) 07/21/19 19:02 Indirect Bilirubin 0.4 mg/dL 07/21/19 19:02 AST 20 units/L (5-40) 07/28/19 04:12 ALT 19 units/L (7-56) 07/28/19 04:12 Alkaline Phosphatase 43 units/L (35-129) 07/28/19 04:12 Ammonia 39.0 umol/L (25-60) 07/23/19 02:50 Troponin T < 0.010 ng/mL (0.00-0.029) 07/22/19 15:33 NT-Pro-B Natriuret Pep 5407 pg/mL (0-450) H 07/22/19 21:45 Total Protein 4.2 g/dL (6.3-8.2) L D 07/28/19 04:12 Albumin 2.0 g/dL (3.9-5) L 07/28/19 04:12 Albumin/Globulin Ratio 0.9 % 07/28/19 04:12 Triglycerides 136 mg/dL (2-149) 07/30/19 04:46 Lipase 10 units/L (13-60) L 07/21/19 19:02 Serotonin Release Assay See scanned result 07/24/19 09:18 TSH 0.888 mlU/mL (0.270-4.200) 07/23/19 13:06 Free T4 1.04 ng/dL (0.76-1.46) 07/23/19 13:06 Urine Color Yellow (Yellow) 08/01/19 16:30 Urine Turbidity Clear (Clear) 08/01/19 16:30 Urine pH 6.0 (5.0-7.0) 08/01/19 16:30 Ur Specific [place] 1.015 (1.003-1.030) 08/01/19 16:30 Urine Protein <15 mg/dl mg/dL (Negative) 08/01/19 16:30 Urine Glucose (UA) Neg mg/dL (Negative) 08/01/19 16:30 Urine Ketones Neg mg/dL (Negative) 08/01/19 16:30 Urine Blood Neg (Negative) 08/01/19 16:30 Urine Nitrite Neg (Negative) 08/01/19 16:30 Urine Bilirubin Neg (Negative) 08/01/19 16:30 Urine Ictotest Negative (Negative) 07/21/19 21:36 Urine Urobilinogen < 2.0 mg/dL (<2.0) 08/01/19 16:30 Ur Leukocyte Esterase Tr (Negative) 08/01/19 16:30 Urine WBC (Auto) 6.0 /HPF (0.0-6.0) 08/01/19 16:30 Urine RBC (Auto) 5.0 /HPF (0.0-6.0) 08/01/19 16:30 U Epithel Cells (Auto) < 1.0 /HPF (0-13.0) 08/01/19 16:30 Urine Mucus Few /HPF 08/01/19 16:30 Heparin-induced Plt Ab Negative (Negative) 07/24/19 09:18 UF Heparin High Dose 0 % Release 07/24/19 09:18 GIULIANA UFH Low Dose 0.1 1 % Release 07/24/19 09:18 GIULIANA UFH Low Dose 0.5 0 % Release 07/24/19 09:18 Hepatitis A IgM Ab Non-reactive (NonReactive) 07/23/19 13:06 Hep Bs Antigen Non-reactive (Negative) 07/23/19 13:06 Hep B Core IgM Ab Non-reactive (NonReactive) 07/23/19 13:06 Hepatitis C Antibody Non-reactive (NonReactive) 07/23/19 13:06 Blood Type A POSITIVE 07/28/19 04:12 Antibody Screen Negative 07/28/19 04:12 Active Medications - Current Medications Current Medications: Generic Name Dose Route Start Last Admin Trade Name Freq PRN Reason Stop Dose Admin Acetaminophen 650 mg 07/23/19 02:48 07/31/19 18:11 Tylenol HI 650 mg Q4H PRN Administration Fever >100.5 Enoxaparin Sodium 40 mg 07/27/19 10:00 08/02/19 11:05 Lovenox SUB-Q 40 mg DAILY STEPHEN Administration Famotidine 20 mg 07/24/19 10:00 08/02/19 11:05 Pepcid IV 20 mg BID STEPHEN Administration Haloperidol Lactate 5 mg 07/31/19 18:35 08/01/19 16:27 Haldol IV 5 mg Q6H PRN Administration Agitation Cefepime HCl 2 gm in 100 mls @ 200 mls/hr 07/23/19 16:00 08/02/19 04:52 Cefepime/Ns 2 Gm/100 Ml IV 200 mls/hr Q12H STEPHEN Administration Protocol Metronidazole 500 mg in 100 mls @ 100 mls/hr 07/23/19 16:00 08/02/19 06:04 Flagyl 500 Mg/100 Ml IV 100 mls/hr Q8HR STEPHEN Administration Protocol Valproate Sodium 500 mg/ 105 mls @ 100 mls/hr 07/24/19 10:00 08/02/19 12:14 Sodium Chloride IV 100 mls/hr Q12HR STEPHEN Administration Fluconazole 200 mls @ 100 mls/hr 07/26/19 15:00 08/02/19 11:40 Diflucan IV 100 mls/hr Q24HR STEPHEN Administration Protocol Amino Acids/Electrolytes/Dextrose 2,400 mls @ 100 mls/hr 08/01/19 20:00 08/01/19 21:38 Tpn Adult IV 08/02/19 19:59 100 mls/hr DAILY@1999 STEPHEN Administration Protocol Sodium Chloride 250 mls @ 10 mls/hr 08/02/19 11:30 Nacl 0.9% 250ml IV 08/03/19 11:29 DIRECT STEPHEN Amino Acids/Electrolytes/Dextrose 2,400 mls @ 100 mls/hr 08/02/19 20:00 Tpn Adult IV 08/03/19 19:59 DAILY@1999 [facility] Protocol Metoprolol Tartrate 5 mg 08/02/19 14:00 Metoprolol IV TID [facility] Morphine Sulfate 2 mg 07/31/19 18:36 08/01/19 18:23 Morphine IV 2 mg Q4H PRN Administration Pain, Moderate (4-6) Ondansetron HCl 4 mg 07/21/19 22:25 07/22/19 01:07 Zofran IV 4 mg Q8H PRN Administration Nausea And Vomiting Nutrition/Malnutrition Assess - Dietary Evaluation Nutrition/Malnutrition Findings: Nutrition Notes Start: 07/23/19 10:09 Freq: Status: Active Protocol: Document 08/02/19 11:44 KS (Rec: 08/02/19 12:17 KS [id number]) Co-Sign 08/02/19 11:44 LP Nutrition Notes Initial or Follow up Reassessment Current Diagnosis Acute Kidney Injury Other Pertinent Diagnosis Necrosis of transverse colon, down syndrome Current Diet NPO, TPN at 100mL/hr Labs/Tests Na 148 Cl 109.7 CO2 32 Glu 113 P 1.9 Pertinent Medications Lasix Height 5 ft 7 in Weight 143.3 kg Hector Body Weight (kg) 67.27 BMI 49.4 Weight change and time frame Wt change noted Subjective/Other Information CPN day 6. Per MD, pt ileus showing signs of improvement. MD will consider diet advancement to trickle TF when pt has a BM. Percent of energy/protein needs met: 67%/89% Burn Absent Trauma Absent GI Symptoms Nausea,Vomiting,Constipation Minimum of two criteria No physical signs of malnutrition #1 Nutrition Diagnosis Inadequate oral intake Diagnosis Progress(for reassessment Continues documentation) Is patient on ventilator? No Is Patient Ambulatory and/or Out of Bed No REE-([facility]-confined to bed) 2876.244 Kcal/Kg value to use for calculation 14 Approximate Energy Requirements Using 2006 kcal/Kg Calculation Used for Recommendations Kcal/kg Additional Notes Pro needs 86-107g (0.8-1.0g/kg /day Adj BW 107.1kg) Fluid needs 1ml/kcal or per MD Nutrition Intervention Change Diet Order: CPN Nutrition Support: Continue CPN at 100mL/hr: 20 mEq K, 10 mmol P, 10 mEq Mg, Cl:Acetate - 50%/50%, MVI, MTE . Kcal 1,330 Protein (gm) 120 Carbohydrates (gm) 250 Fat (gm) 0 Fluid (mL) 2,400 Fiber (gm) 0 Goal #1 Meet kcal/PRO as best as possible with CPN Anticipated Discharge Needs: Unable to identify at this time Follow-Up By: 08/03/19 Additional Comments Follow for labs in AM: BMP, Mg , Phos
[2019-08-02] MEDS ORDERED: TOTAL PARENTERAL NUTRITION 2,400 ML IV SCH (20:00)
[2019-08-02] MEDS: ACETAMINOPHEN 650 MG RECT SUPP PR PRN (21:54)
[2019-08-02] MEDS: MORPHINE 2 MG/1 ML INJ IV PRN (22:10)
[2019-08-03] MEDS: CEFEPIME/NS 2 GM/100 ML 2 GM/100 ML BAG IV SCH (06:46)
[2019-08-03] MEDS: metroNIDAZOLE/NS 500 MG/100 ML 500 MG/100 ML BAG IV SCH (06:46)
[2019-08-03] MEDS: ACETAMINOPHEN 650 MG RECT SUPP PR PRN (06:48)
[2019-08-03 07:10] LABS: BUN/Creatinine Ratio 25; Blood Urea Nitrogen 20 mg/dL (9-20); Calcium 7.9 mg/dL (8.4-10.2); Hemolysis Index 0
[2019-08-03] MEDS: METOPROLOL TARTRATE 5 MG/5 ML INJ IV SCH ×3 (08:00→22:40)
[2019-08-03] MEDS: VALPROATE SODIUM 500 MG in SODIUM CHLORIDE 0.9% 100 ML IV SCH ×2 (09:09→22:42)
[2019-08-03] MEDS: ENOXAPARIN 40 MG/0.4 ML INJ SUB-Q SCH (09:10)
[2019-08-03] MEDS: FLUCONAZOLE 400 MG 200 ML IV SCH (09:10)
[2019-08-03] MEDS: FAMOTIDINE 20 MG/2 ML INJ IV SCH ×2 (09:11→22:41)
[2019-08-03] MEDS: MORPHINE 2 MG/1 ML INJ IV PRN ×2 (09:11→20:00)
--- NOTE | 2019-08-03 11:12 | Progress Note ---
Assessment and Plan - Patient Problems (1) Ischemic necrosis of large intestine Current Visit: Yes Status: Acute Plan to address problem: s/p ex-lap with partial colon resection (07/23) - POD#11; s/p abdominal colectomy with ileocolostomy (07/26) - POD#8; s/p abdominal reexploration, peritoneal lavage, closure of open abdomen, placement of URMILA drain (07/28) POD# 6 Plan: 1. neuro - stable. appears to be understanding questions and responding approp riately 2. CV - DVT ppx. Monitor CBC - lower yesterday. 3. Resp - Left pleural effusion - new since last CXR on 07/23. Has congested cough as well. Probably component of atelectasis as well. 4. GI - NPO, TPN, NGT to LIWS. record URMILA output. Pt will likely have prolonged ileus, do not start TF until evidence of bowel function. GI ppx. Abdominal binder at all times to minimize risk of patient pulling at URMILA, incision, etc. Appears as though the NGT appearance is becoming otm consultant and volume is slowly decreasing. Perhaps a sign that the ileus is beginning to resolve. If the NG tube output eventually appears consistent with gastric fluid, but the patient has not had a bowel movement yet, we will consider trickle tube feeds at that time. 5. - lee for strict I/Os. May be removed and replaced with condom cath when ok with 1' service and nephro. UA ok. 6. ID - abx per ID 7. Endo - blood glucose monitoring per protocol 8. FEN - BMP daily, replace lytes as needed. TPN Dispo - ICU D/w'd Dr. Ruiz Thank you, please call with questions. Subjective Date of service: 08/03/19 Patient Reports: Positive: no flatus, no bowel movement, fever Objective Vital Signs - 12hr 08/02/19 08/03/19 08/03/19 23:30 00:00 00:30 Temperature 102.3 F H Pulse Rate 88 101 H 94 H Pulse Rate [ 85 From Monitor] Respiratory 16 25 H 24 Rate Respiratory Rate [Medial Abdomen] Blood Pressure 152/89 162/96 161/94 O2 Sat by Pulse 93 93 92 Oximetry 08/03/19 08/03/19 08/03/19 01:00 01:30 02:00 Temperature Pulse Rate 90 96 H 96 H Pulse Rate [ From Monitor] Respiratory 29 H 29 H 26 H Rate Respiratory Rate [Medial Abdomen] Blood Pressure 163/91 161/91 164/100 O2 Sat by Pulse 85 99 98 Oximetry 08/03/19 08/03/19 08/03/19 02:30 03:00 03:30 Temperature Pulse Rate 93 H 76 75 Pulse Rate [ From Monitor] Respiratory 21 26 H 21 Rate Respiratory Rate [Medial Abdomen] Blood Pressure 159/93 172/96 146/83 O2 Sat by Pulse 97 97 92 Oximetry 08/03/19 08/03/19 08/03/19 04:00 04:30 05:00 Temperature 102.7 F H Pulse Rate 75 94 H 80 Pulse Rate [ 88 From Monitor] Respiratory 26 H 25 H 31 H Rate Respiratory Rate [Medial Abdomen] Blood Pressure 149/96 157/93 159/99 O2 Sat by Pulse 99 100 99 Oximetry 08/03/19 08/03/19 08/03/19 05:30 06:00 06:30 Temperature Pulse Rate 92 H 78 83 Pulse Rate [ From Monitor] Respiratory 23 26 H 36 H Rate Respiratory Rate [Medial Abdomen] Blood Pressure 140/95 131/101 157/87 O2 Sat by Pulse 98 96 91 Oximetry 08/03/19 08/03/19 08/03/19 07:00 07:30 08:00 Temperature 99.0 F Pulse Rate 90 96 H 73 Pulse Rate [ 81 From Monitor] Respiratory 16 19 19 Rate Respiratory 15 Rate [Medial Abdomen] Blood Pressure 160/98 172/94 166/102 O2 Sat by Pulse 91 91 95 Oximetry 08/03/19 08/03/19 08/03/19 08:30 08:37 09:00 Temperature Pulse Rate 74 83 Pulse Rate [ From Monitor] Respiratory 22 20 Rate Respiratory Rate [Medial Abdomen] Blood Pressure 159/102 166/102 O2 Sat by Pulse 95 95 97 Oximetry 08/03/19 09:42 Temperature 99.0 F Pulse Rate Pulse Rate [ From Monitor] Respiratory Rate Respiratory Rate [Medial Abdomen] Blood Pressure O2 Sat by Pulse Oximetry - General physical appearance no distress, no pain - Respiratory normal expansion, normal respiratory effort, other (still with occasional wet cough) - Abdomen soft, not tender, bowel sounds hypoactive, not distended, not guarding, not rigid, surgical scars (intact. minimal serosang drainage from area near umbo), other (URMILA with serous drainage) - Integumentary no rash, no growths, no abnormal pigmentation - Labs 08/02/19 04:15 08/03/19 06:15 Diabetes panel 08/03/19 Range/Units 06:15 Sodium 148 H (137-145) mmol/L Potassium 3.6 (3.6-5.0) mmol/L Chloride 110.5 H (98-107) mmol/L Carbon Dioxide 29 (22-30) mmol/L BUN 20 (9-20) mg/dL Creatinine 0.8 (0.8-1.5) mg/dL Glucose 104 H (75-100) mg/dL Calcium 7.9 L (8.4-10.2) mg/dL Calcium panel 08/03/19 Range/Units 06:15 Calcium 7.9 L (8.4-10.2) mg/dL Phosphorus 3.40 D (2.5-4.5) mg/dL Pituitary panel 08/03/19 Range/Units 06:15 Sodium 148 H (137-145) mmol/L Potassium 3.6 (3.6-5.0) mmol/L Chloride 110.5 H (98-107) mmol/L Carbon Dioxide 29 (22-30) mmol/L BUN 20 (9-20) mg/dL Creatinine 0.8 (0.8-1.5) mg/dL Glucose 104 H (75-100) mg/dL Calcium 7.9 L (8.4-10.2) mg/dL Adrenal panel 08/03/19 Range/Units 06:15 Sodium 148 H (137-145) mmol/L Potassium 3.6 (3.6-5.0) mmol/L Chloride 110.5 H (98-107) mmol/L Carbon Dioxide 29 (22-30) mmol/L BUN 20 (9-20) mg/dL Creatinine 0.8 (0.8-1.5) mg/dL Glucose 104 H (75-100) mg/dL Calcium 7.9 L (8.4-10.2) mg/dL
--- NOTE | 2019-08-03 12:03 | Progress Note ---
Assessment and Plan 19 y/o male with acute respiratory failure s/p exploratory lap x 2 now on TPN, continuous NG suction and continued sedation. 1. Await ID evaluation for today. No CBC drawn. Still spiking temps. But clinically looks good. Hopeful ID will stop abx therapy. Cultures, repeat, have been negative 2. Spoke with surgery. Binder is for protective purposes only. Will keep in place but no indication for thora at this time. Await NG tube output to decrease then may try trickle feeds. Possibly over the weekend. 3. NG tube stays to continuous suction and will continue TPN 4. BP elevated. Was not on any outpatient blood pressure therapy. Could be pain, surroundings given mental state. Suggest PRN hydralazine but will defer t o primary 5. Given mental state, complexity of abdomen and prior surgery with necessary drains, safer for patient to remain in unit with 1:1 care. Maybe over the weekend the patient could go to IMCU. Will continue to monitor. CCT 31 minutes. Subjective Date of service: 08/03/19 Principal diagnosis: Respiratory Failure Interval history: No acute events. Down to 10 liters and 35%. Remains awake. NG output is improving but not ready for NG to come out yet. Objective Vital Signs - 12hr 08/03/19 08/03/19 08/03/19 00:00 00:30 01:00 Temperature 102.3 F H Pulse Rate 101 H 94 H 90 Pulse Rate [ 85 From Monitor] Respiratory 25 H 24 29 H Rate Respiratory Rate [Medial Abdomen] Blood Pressure 162/96 161/94 163/91 O2 Sat by Pulse 93 92 85 Oximetry 08/03/19 08/03/19 08/03/19 01:30 02:00 02:30 Temperature Pulse Rate 96 H 96 H 93 H Pulse Rate [ From Monitor] Respiratory 29 H 26 H 21 Rate Respiratory Rate [Medial Abdomen] Blood Pressure 161/91 164/100 159/93 O2 Sat by Pulse 99 98 97 Oximetry 08/03/19 08/03/19 08/03/19 03:00 03:30 04:00 Temperature 102.7 F H Pulse Rate 76 75 75 Pulse Rate [ 88 From Monitor] Respiratory 26 H 21 26 H Rate Respiratory Rate [Medial Abdomen] Blood Pressure 172/96 146/83 149/96 O2 Sat by Pulse 97 92 99 Oximetry 08/03/19 08/03/1919 04:30 05:00 05:30 Temperature Pulse Rate 94 H 80 92 H Pulse Rate [ From Monitor] Respiratory 25 H 31 H 23 Rate Respiratory Rate [Medial Abdomen] Blood Pressure 157/93 159/99 140/95 O2 Sat by Pulse 100 99 98 Oximetry 08/03/19 08/03/19 08/03/19 06:00 06:30 07:00 Temperature Pulse Rate 78 83 90 Pulse Rate [ From Monitor] Respiratory 26 H 36 H 16 Rate Respiratory Rate [Medial Abdomen] Blood Pressure 131/101 157/87 160/98 O2 Sat by Pulse 96 91 91 Oximetry 08/03/19 08/03/19 08/03/19 07:30 08:00 08:30 Temperature 99.0 F Pulse Rate 96 H 73 74 Pulse Rate [ 81 From Monitor] Respiratory 19 19 22 Rate Respiratory 15 Rate [Medial Abdomen] Blood Pressure 172/94 166/102 159/102 O2 Sat by Pulse 91 95 95 Oximetry 08/03/19 08/03/19 08/03/19 08:37 09:00 09:42 Temperature 99.0 F Pulse Rate 83 Pulse Rate [ From Monitor] Respiratory 20 Rate Respiratory Rate [Medial Abdomen] Blood Pressure 166/102 O2 Sat by Pulse 95 97 Oximetry Constitutional: no acute distress Eyes: non-icteric ENT: oropharynx moist Neck: supple Effort: normal Ascultation: Bilateral: diminished breath sounds (due to obesity) Cardiovascular: regular rate and rhythm Gastrointestinal: normoactive bowel sounds, soft, other (morbidly obese abd) Integumentary: normal Extremities: no cyanosis, no edema, pink and warm Neurologic: normal mental status, non-focal exam, pupils equal and round, other (on vent) Psychiatric: mood appropriate, affect normal CBC and BMP: 08/02/19 04:15 08/03/19 06:15 ABG, PT/INR, D-dimer: ABG POC ABG pH 7.344 (7.35-7.45) L 07/30/19 05:23 ABG pH 7.406 pH Units (7.350-7.450) 07/31/19 04:42 POC ABG pCO2 48.8 (35-45) H 07/30/19 05:23 ABG pCO2 42.4 mm Hg 07/31/19 04:42 POC ABG pO2 77 (80-105) L 07/30/19 05:23 ABG pO2 85.1 mm Hg (80.0-90.0) 07/31/19 04:42 POC ABG HCO3 26.6 (22-26 mml/L) 07/30/19 05:23 POC ABG Total CO2 28 (23-27mmol/L) 07/30/19 05:23 POC ABG O2 Sat 94 07/30/19 05:23 ABG O2 Saturation 96.7 % (95.0-99.0) 07/31/19 04:42 PT/INR, D-dimer D-Dimer 886.89 ng/mlDDU (0-234) H 07/22/19 21:45 Abnormal lab findings: Abnormal Labs 07/21/19 07/21/19 07/22/19 19:02 19:02 10:50 WBC 12.1 H 13.7 H RBC 5.56 H Hgb 17.1 H Hct 52.9 H D MCV 95 H 95 H RDW Plt Count 130 L 137 L Lymph % (Auto) 7.2 L [place] % (Auto) 9.6 H Lymph # 0.9 L [place] # 1.2 H Seg Neutrophils % 82.8 H Seg Neuts % (Manual) Lymphocytes % (Manual) Monocytes % (Manual) Nucleated RBC % Seg Neutrophils # 10.0 H Seg Neutrophils # Man Lymphocytes # (Manual) Monocytes # (Manual) D-Dimer POC ABG pH ABG pH POC ABG pCO2 POC ABG pO2 ABG pO2 ABG O2 Saturation ABG Hemoglobin Oxyhemoglobin Sodium 136 L Potassium Chloride 95.9 L Carbon Dioxide BUN Creatinine Glucose 163 H POC Glucose Lactic Acid Calcium Phosphorus Magnesium Total Bilirubin AST NT-Pro-B Natriuret Pep Total Protein Albumin Lipase 10 L 07/22/19 07/22/19 07/22/19 10:50 15:33 15:33 WBC 13.1 H RBC 5.10 H Hgb 15.9 H Hct 49.0 H MCV 96 H RDW Plt Count 127 L Lymph % (Auto) [place] % (Auto) Lymph # [place] # Seg Neutrophils % Seg Neuts % (Manual) Lymphocytes % (Manual) Monocytes % (Manual) Nucleated RBC % Seg Neutrophils # Seg Neutrophils # Man Lymphocytes # (Manual) Monocytes # (Manual) D-Dimer POC ABG pH ABG pH POC ABG pCO2 POC ABG pO2 ABG pO2 ABG O2 Saturation ABG Hemoglobin Oxyhemoglobin Sodium 136 L Potassium 5.3 H D 6.0 H Chloride 96.7 L Carbon Dioxide 17 L BUN 22 H 29 H Creatinine 2.0 H D 2.2 H Glucose 129 H 121 H POC Glucose Lactic Acid Calcium 8.2 L Phosphorus 4.70 H Magnesium 3.10 H Total Bilirubin AST NT-Pro-B Natriuret Pep Total Protein Albumin Lipase 07/22/19 07/22/19 07/22/19 18:19 18:42 21:45 WBC RBC Hgb Hct MCV RDW Plt Count Lymph % (Auto) [place] % (Auto) Lymph # [place] # Seg Neutrophils % Seg Neuts % (Manual) Lymphocytes % (Manual) Monocytes % (Manual) Nucleated RBC % Seg Neutrophils # Seg Neutrophils # Man Lymphocytes # (Manual) Monocytes # (Manual) D-Dimer 886.89 H POC ABG pH 7.197 L ABG pH POC ABG pCO2 45.2 H POC ABG pO2 ABG pO2 ABG O2 Saturation ABG Hemoglobin Oxyhemoglobin Sodium Potassium Chloride Carbon Dioxide BUN Creatinine Glucose POC Glucose 107 H Lactic Acid Calcium Phosphorus Magnesium Total Bilirubin AST NT-Pro-B Natriuret Pep Total Protein Albumin Lipase 07/22/19 07/22/19 07/22/19 21:45 21:45 21:45 WBC RBC Hgb Hct MCV RDW Plt Count Lymph % (Auto) [place] % (Auto) Lymph # [place] # Seg Neutrophils % Seg Neuts % (Manual) Lymphocytes % (Manual) Monocytes % (Manual) Nucleated RBC % Seg Neutrophils # Seg Neutrophils # Man Lymphocytes # (Manual) Monocytes # (Manual) D-Dimer POC ABG pH ABG pH POC ABG pCO2 POC ABG pO2 ABG pO2 ABG O2 Saturation ABG Hemoglobin Oxyhemoglobin Sodium 136 L Potassium 5.6 H Chloride Carbon Dioxide 20 L BUN 38 H Creatinine 2.6 H Glucose 63 L POC Glucose Lactic Acid 3.10 H* Calcium 8.2 L Phosphorus Magnesium Total Bilirubin AST NT-Pro-B Natriuret Pep 5407 H Total Protein Albumin Lipase 07/23/19 07/23/19 07/23/19 02:11 02:50 02:50 WBC 15.0 H RBC Hgb Hct MCV 95 H RDW Plt Count 118 L Lymph % (Auto) [place] % (Auto) Lymph # [place] # Seg Neutrophils % Seg Neuts % (Manual) Lymphocytes % (Manual) 9.0 L Monocytes % (Manual) 17.0 H Nucleated RBC % Seg Neutrophils # Seg Neutrophils # Man Lymphocytes # (Manual) Monocytes # (Manual) 2.6 H D-Dimer POC ABG pH ABG pH POC ABG pCO2 POC ABG pO2 ABG pO2 ABG O2 Saturation ABG Hemoglobin Oxyhemoglobin Sodium Potassium Chloride Carbon Dioxide BUN Creatinine Glucose POC Glucose 69 L Lactic Acid 3.30 H* Calcium Phosphorus Magnesium Total Bilirubin AST NT-Pro-B Natriuret Pep Total Protein Albumin Lipase 07/23/19 07/23/19 07/23/19 02:50 03:09 04:30 WBC RBC Hgb Hct MCV RDW Plt Count Lymph % (Auto) [place] % (Auto) Lymph # [place] # Seg Neutrophils % Seg Neuts % (Manual) Lymphocytes % (Manual) Monocytes % (Manual) Nucleated RBC % Seg Neutrophils # Seg Neutrophils # Man Lymphocytes # (Manual) Monocytes # (Manual) D-Dimer POC ABG pH 7.296 L ABG pH POC ABG pCO2 POC ABG pO2 66 L ABG pO2 ABG O2 Saturation ABG Hemoglobin Oxyhemoglobin Sodium 134 L Potassium 7.5 H* D Chloride Carbon Dioxide 21 L BUN 47 H Creatinine 2.7 H Glucose POC Glucose Lactic Acid 3.50 H* Calcium 7.6 L Phosphorus Magnesium 2.90 H Total Bilirubin AST 60 H NT-Pro-B Natriuret Pep Total Protein 5.5 L D Albumin 2.5 L Lipase 07/23/19 07/23/19 07/23/19 07:30 09:03 09:03 WBC RBC Hgb Hct MCV RDW Plt Count Lymph % (Auto) [place] % (Auto) Lymph # [place] # Seg Neutrophils % Seg Neuts % (Manual) Lymphocytes % (Manual) Monocytes % (Manual) Nucleated RBC % Seg Neutrophils # Seg Neutrophils # Man Lymphocytes # (Manual) Monocytes # (Manual) D-Dimer POC ABG pH ABG pH POC ABG pCO2 POC ABG pO2 ABG pO2 ABG O2 Saturation ABG Hemoglobin Oxyhemoglobin Sodium 136 L Potassium 6.6 H* 7.1 H* Chloride Carbon Dioxide 20 L BUN 50 H 49 H Creatinine 2.6 H 2.4 H Glucose 67 L POC Glucose Lactic Acid 4.10 H* Calcium 7.6 L 7.7 L Phosphorus Magnesium Total Bilirubin AST NT-Pro-B Natriuret Pep Total Protein Albumin Lipase 07/23/19 07/23/19 07/23/19 10:52 13:13 14:48 WBC RBC Hgb Hct MCV RDW Plt Count Lymph % (Auto) [place] % (Auto) Lymph # [place] # Seg Neutrophils % Seg Neuts % (Manual) Lymphocytes % (Manual) Monocytes % (Manual) Nucleated RBC % Seg Neutrophils # Seg Neutrophils # Man Lymphocytes # (Manual) Monocytes # (Manual) D-Dimer POC ABG pH 7.280 L ABG pH POC ABG pCO2 48.7 H POC ABG pO2 ABG pO2 ABG O2 Saturation ABG Hemoglobin Oxyhemoglobin Sodium Potassium Chloride Carbon Dioxide BUN Creatinine Glucose POC Glucose 123 H Lactic Acid 4.10 H* Calcium Phosphorus Magnesium Total Bilirubin AST NT-Pro-B Natriuret Pep Total Protein Albumin Lipase 07/23/19 07/23/19 07/23/19 15:56 17:35 Unknown WBC RBC Hgb Hct MCV RDW Plt Count Lymph % (Auto) [place] % (Auto) Lymph # [place] # Seg Neutrophils % Seg Neuts % (Manual) Lymphocytes % (Manual) Monocytes % (Manual) Nucleated RBC % Seg Neutrophils # Seg Neutrophils # Man Lymphocytes # (Manual) Monocytes # (Manual) D-Dimer POC ABG pH ABG pH POC ABG pCO2 POC ABG pO2 ABG pO2 ABG O2 Saturation ABG Hemoglobin Oxyhemoglobin Sodium Potassium Chloride Carbon Dioxide BUN Creatinine Glucose POC Glucose Lactic Acid 3.00 H* 4.10 H* 4.90 H* Calcium Phosphorus Magnesium Total Bilirubin AST NT-Pro-B Natriuret Pep Total Protein Albumin Lipase 07/23/19 07/24/19 07/24/19 Unknown 00:05 00:40 WBC RBC Hgb Hct MCV RDW Plt Count Lymph % (Auto) [place] % (Auto) Lymph # [place] # Seg Neutrophils % Seg Neuts % (Manual) Lymphocytes % (Manual) Monocytes % (Manual) Nucleated RBC % Seg Neutrophils # Seg Neutrophils # Man Lymphocytes # (Manual) Monocytes # (Manual) D-Dimer POC ABG pH ABG pH POC ABG pCO2 POC ABG pO2 ABG pO2 151.3 H ABG O2 Saturation ABG Hemoglobin Oxyhemoglobin Sodium Potassium 5.6 H D Chloride Carbon Dioxide BUN 29 H Creatinine Glucose 128 H POC Glucose 118 H Lactic Acid Calcium 7.4 L Phosphorus Magnesium Total Bilirubin AST NT-Pro-B Natriuret Pep Total Protein Albumin Lipase 07/24/19 07/24/1919 04:00 05:37 05:37 WBC RBC Hgb Hct MCV RDW Plt Count 89 L Lymph % (Auto) [place] % (Auto) Lymph # [place] # Seg Neutrophils % Seg Neuts % (Manual) Lymphocytes % (Manual) 5.0 L Monocytes % (Manual) Nucleated RBC % Seg Neutrophils # Seg Neutrophils # Man Lymphocytes # (Manual) 0.5 L Monocytes # (Manual) D-Dimer POC ABG pH ABG pH POC ABG pCO2 POC ABG pO2 ABG pO2 ABG O2 Saturation ABG Hemoglobin Oxyhemoglobin Sodium Potassium Chloride Carbon Dioxide BUN 29 H Creatinine Glucose 120 H POC Glucose 123 H Lactic Acid Calcium 7.4 L Phosphorus 2.30 L D Magnesium Total Bilirubin 1.40 H AST 107 H NT-Pro-B Natriuret Pep Total Protein 5.3 L Albumin 2.5 L Lipase 07/24/19 07/24/19 07/24/19 05:37 10:18 18:44 WBC RBC Hgb Hct MCV RDW Plt Count Lymph % (Auto) [place] % (Auto) Lymph # [place] # Seg Neutrophils % Seg Neuts % (Manual) Lymphocytes % (Manual) Monocytes % (Manual) Nucleated RBC % Seg Neutrophils # Seg Neutrophils # Man Lymphocytes # (Manual) Monocytes # (Manual) D-Dimer POC ABG pH 7.464 H ABG pH POC ABG pCO2 POC ABG pO2 125 H ABG pO2 ABG O2 Saturation ABG Hemoglobin Oxyhemoglobin Sodium Potassium Chloride Carbon Dioxide BUN Creatinine Glucose POC Glucose 130 H Lactic Acid 3.90 H* Calcium Phosphorus Magnesium Total Bilirubin AST NT-Pro-B Natriuret Pep Total Protein Albumin Lipase 07/24/19 07/25/19 07/25/19 18:52 04:45 04:45 WBC RBC Hgb Hct MCV RDW Plt Count 91 L Lymph % (Auto) [place] % (Auto) Lymph # [place] # Seg Neutrophils % Seg Neuts % (Manual) Lymphocytes % (Manual) Monocytes % (Manual) Nucleated RBC % Seg Neutrophils # Seg Neutrophils # Man Lymphocytes # (Manual) Monocytes # (Manual) D-Dimer POC ABG pH ABG pH POC ABG pCO2 POC ABG pO2 ABG pO2 ABG O2 Saturation ABG Hemoglobin Oxyhemoglobin Sodium Potassium Chloride Carbon Dioxide BUN 24 H Creatinine Glucose POC Glucose 107 H Lactic Acid Calcium 7.9 L Phosphorus 2.20 L Magnesium Total Bilirubin AST NT-Pro-B Natriuret Pep Total Protein Albumin Lipase 07/25/19 07/26/19 07/26/19 05:32 02:20 05:00 WBC RBC Hgb Hct MCV RDW Plt Count Lymph % (Auto) [place] % (Auto) Lymph # [place] # Seg Neutrophils % Seg Neuts % (Manual) Lymphocytes % (Manual) Monocytes % (Manual) Nucleated RBC % Seg Neutrophils # Seg Neutrophils # Man Lymphocytes # (Manual) Monocytes # (Manual) D-Dimer POC ABG pH ABG pH POC ABG pCO2 POC ABG pO2 ABG pO2 70.6 L ABG O2 Saturation 94.7 L ABG Hemoglobin 12.0 L Oxyhemoglobin 92.8 L Sodium 148 H Potassium Chloride 112.1 H Carbon Dioxide BUN Creatinine 0.6 L Glucose 71 L POC Glucose 62 L Lactic Acid Calcium 8.3 L Phosphorus Magnesium Total Bilirubin AST NT-Pro-B Natriuret Pep Total Protein Albumin Lipase 07/26/19 07/26/19 07/27/19 05:45 05:47 05:00 WBC 13.1 H RBC Hgb Hct MCV RDW 15.8 H Plt Count 113 L Lymph % (Auto) [place] % (Auto) Lymph # [place] # Seg Neutrophils % Seg Neuts % (Manual) Lymphocytes % (Manual) Monocytes % (Manual) 16.0 H Nucleated RBC % 2.0 H Seg Neutrophils # Seg Neutrophils # Man 8.1 H Lymphocytes # (Manual) Monocytes # (Manual) 2.1 H D-Dimer POC ABG pH ABG pH 7.309 L POC ABG pCO2 POC ABG pO2 ABG pO2 73.3 L ABG O2 Saturation 93.9 L ABG Hemoglobin 12.4 L Oxyhemoglobin 92.1 L Sodium Potassium Chloride Carbon Dioxide BUN Creatinine Glucose POC Glucose 68 L Lactic Acid Calcium Phosphorus Magnesium Total Bilirubin AST NT-Pro-B Natriuret Pep Total Protein Albumin Lipase 07/27/19 07/27/19 07/27/19 05:00 06:10 09:49 WBC RBC Hgb Hct MCV RDW Plt Count Lymph % (Auto) [place] % (Auto) Lymph # [place] # Seg Neutrophils % Seg Neuts % (Manual) Lymphocytes % (Manual) Monocytes % (Manual) Nucleated RBC % Seg Neutrophils # Seg Neutrophils # Man Lymphocytes # (Manual) Monocytes # (Manual) D-Dimer POC ABG pH ABG pH POC ABG pCO2 POC ABG pO2 ABG pO2 ABG O2 Saturation ABG Hemoglobin 12.6 L Oxyhemoglobin 94.2 L Sodium 149 H Potassium Chloride 114.6 H Carbon Dioxide BUN Creatinine Glucose POC Glucose 110 H Lactic Acid Calcium 7.9 L Phosphorus Magnesium Total Bilirubin AST NT-Pro-B Natriuret Pep Total Protein Albumin Lipase 07/28/19 07/28/19 07/29/19 04:12 04:12 05:15 WBC 15.3 H RBC Hgb 11.5 L Hct 34.4 L MCV RDW 15.9 H Plt Count Lymph % (Auto) [place] % (Auto) Lymph # [place] # Seg Neutrophils % Seg Neuts % (Manual) Lymphocytes % (Manual) Monocytes % (Manual) Nucleated RBC % Seg Neutrophils # Seg Neutrophils # Man Lymphocytes # (Manual) Monocytes # (Manual) D-Dimer POC ABG pH ABG pH POC ABG pCO2 POC ABG pO2 ABG pO2 ABG O2 Saturation ABG Hemoglobin Oxyhemoglobin Sodium 149 H 149 H Potassium Chloride 113.3 H 113.9 H Carbon Dioxide BUN Creatinine 0.7 L 0.6 L Glucose 109 H POC Glucose Lactic Acid Calcium 8.0 L 8.0 L Phosphorus Magnesium 1.60 L Total Bilirubin AST NT-Pro-B Natriuret Pep Total Protein 4.2 L D Albumin 2.0 L Lipase 07/29/19 07/29/19 07/29/19 05:34 05:34 17:59 WBC RBC Hgb Hct MCV RDW Plt Count Lymph % (Auto) [place] % (Auto) Lymph # [place] # Seg Neutrophils % Seg Neuts % (Manual) Lymphocytes % (Manual) Monocytes % (Manual) Nucleated RBC % Seg Neutrophils # Seg Neutrophils # Man Lymphocytes # (Manual) Monocytes # (Manual) D-Dimer POC ABG pH ABG pH POC ABG pCO2 46.9 H POC ABG pO2 65 L ABG pO2 ABG O2 Saturation ABG Hemoglobin Oxyhemoglobin Sodium Potassium Chloride Carbon Dioxide BUN Creatinine Glucose POC Glucose 107 H 110 H Lactic Acid Calcium Phosphorus Magnesium Total Bilirubin AST NT-Pro-B Natriuret Pep Total Protein Albumin Lipase 07/30/19 07/30/19 07/30/19 04:46 04:46 05:23 WBC 21.2 H RBC 3.36 L Hgb 10.5 L Hct 31.4 L MCV RDW 15.8 H Plt Count Lymph % (Auto) [place] % (Auto) Lymph # [place] # Seg Neutrophils % Seg Neuts % (Manual) Lymphocytes % (Manual) Monocytes % (Manual) Nucleated RBC % Seg Neutrophils # Seg Neutrophils # Man Lymphocytes # (Manual) Monocytes # (Manual) D-Dimer POC ABG pH 7.344 L ABG pH POC ABG pCO2 48.8 H POC ABG pO2 77 L ABG pO2 ABG O2 Saturation ABG Hemoglobin Oxyhemoglobin Sodium 146 H Potassium Chloride 110.8 H Carbon Dioxide BUN 22 H Creatinine 0.7 L Glucose 101 H POC Glucose Lactic Acid Calcium 7.9 L Phosphorus 4.60 H Magnesium Total Bilirubin AST NT-Pro-B Natriuret Pep Total Protein Albumin Lipase 07/30/19 07/31/19 07/31/19 12:17 04:42 08:10 WBC 15.4 H RBC 3.11 L Hgb 9.8 L Hct 29.3 L MCV RDW 15.8 H Plt Count Lymph % (Auto) [place] % (Auto) Lymph # [place] # Seg Neutrophils % Seg Neuts % (Manual) 81.0 H Lymphocytes % (Manual) 10.0 L Monocytes % (Manual) Nucleated RBC % Seg Neutrophils # Seg Neutrophils # Man 12.5 H Lymphocytes # (Manual) Monocytes # (Manual) D-Dimer POC ABG pH ABG pH POC ABG pCO2 POC ABG pO2 ABG pO2 ABG O2 Saturation ABG Hemoglobin 10.1 L Oxyhemoglobin 94.8 L Sodium Potassium Chloride Carbon Dioxide BUN Creatinine Glucose POC Glucose 107 H Lactic Acid Calcium Phosphorus Magnesium Total Bilirubin AST NT-Pro-B Natriuret Pep Total Protein Albumin Lipase 07/31/19 07/31/19 07/31/19 08:10 12:36 17:56 WBC RBC Hgb Hct MCV RDW Plt Count Lymph % (Auto) [place] % (Auto) Lymph # [place] # Seg Neutrophils % Seg Neuts % (Manual) Lymphocytes % (Manual) Monocytes % (Manual) Nucleated RBC % Seg Neutrophils # Seg Neutrophils # Man Lymphocytes # (Manual) Monocytes # (Manual) D-Dimer POC ABG pH ABG pH POC ABG pCO2 POC ABG pO2 ABG pO2 ABG O2 Saturation ABG Hemoglobin Oxyhemoglobin Sodium 146 H Potassium Chloride 110.2 H Carbon Dioxide BUN 22 H Creatinine 0.7 L Glucose 102 H POC Glucose 119 H 138 H Lactic Acid Calcium 8.3 L Phosphorus Magnesium Total Bilirubin AST NT-Pro-B Natriuret Pep Total Protein Albumin Lipase 08/01/19 08/01/19 08/01/19 00:02 05:15 05:15 WBC 18.0 H RBC 3.12 L Hgb 9.7 L Hct 30.3 L MCV 97 H RDW 16.0 H Plt Count Lymph % (Auto) [place] % (Auto) Lymph # [place] # Seg Neutrophils % Seg Neuts % (Manual) Lymphocytes % (Manual) Monocytes % (Manual) Nucleated RBC % Seg Neutrophils # Seg Neutrophils # Man Lymphocytes # (Manual) Monocytes # (Manual) D-Dimer POC ABG pH ABG pH POC ABG pCO2 POC ABG pO2 ABG pO2 ABG O2 Saturation ABG Hemoglobin Oxyhemoglobin Sodium 149 H Potassium Chloride 112.0 H Carbon Dioxide BUN 28 H Creatinine Glucose POC Glucose 119 H Lactic Acid Calcium Phosphorus 5.60 H D Magnesium Total Bilirubin AST NT-Pro-B Natriuret Pep Total Protein Albumin Lipase 08/01/19 08/01/19 08/01/19 05:47 11:58 18:13 WBC RBC Hgb Hct MCV RDW Plt Count Lymph % (Auto) [place] % (Auto) Lymph # [place] # Seg Neutrophils % Seg Neuts % (Manual) Lymphocytes % (Manual) Monocytes % (Manual) Nucleated RBC % Seg Neutrophils # Seg Neutrophils # Man Lymphocytes # (Manual) Monocytes # (Manual) D-Dimer POC ABG pH ABG pH POC ABG pCO2 POC ABG pO2 ABG pO2 ABG O2 Saturation ABG Hemoglobin Oxyhemoglobin Sodium Potassium Chloride Carbon Dioxide BUN Creatinine Glucose POC Glucose 142 H 115 H 113 H Lactic Acid Calcium Phosphorus Magnesium Total Bilirubin AST NT-Pro-B Natriuret Pep Total Protein Albumin Lipase 08/02/19 08/02/19 08/02/19 04:15 04:15 05:16 WBC 14.0 H RBC 3.12 L Hgb 9.6 L Hct 29.3 L MCV RDW 15.3 H Plt Count Lymph % (Auto) 9.9 L [place] % (Auto) 8.6 H Lymph # [place] # 1.2 H Seg Neutrophils % 80.8 H Seg Neuts % (Manual) Lymphocytes % (Manual) Monocytes % (Manual) Nucleated RBC % Seg Neutrophils # 11.3 H Seg Neutrophils # Man Lymphocytes # (Manual) Monocytes # (Manual) D-Dimer POC ABG pH ABG pH POC ABG pCO2 POC ABG pO2 ABG pO2 ABG O2 Saturation ABG Hemoglobin Oxyhemoglobin Sodium 148 H Potassium Chloride 109.7 H Carbon Dioxide 32 H BUN Creatinine Glucose 113 H POC Glucose 113 H Lactic Acid Calcium Phosphorus 1.90 L D Magnesium Total Bilirubin AST NT-Pro-B Natriuret Pep Total Protein Albumin Lipase 08/02/19 08/02/19 08/03/19 11:53 18:07 00:48 WBC RBC Hgb Hct MCV RDW Plt Count Lymph % (Auto) [place] % (Auto) Lymph # [place] # Seg Neutrophils % Seg Neuts % (Manual) Lymphocytes % (Manual) Monocytes % (Manual) Nucleated RBC % Seg Neutrophils # Seg Neutrophils # Man Lymphocytes # (Manual) Monocytes # (Manual) D-Dimer POC ABG pH ABG pH POC ABG pCO2 POC ABG pO2 ABG pO2 ABG O2 Saturation ABG Hemoglobin Oxyhemoglobin Sodium Potassium Chloride Carbon Dioxide BUN Creatinine Glucose POC Glucose 123 H 112 H 117 H Lactic Acid Calcium Phosphorus Magnesium Total Bilirubin AST NT-Pro-B Natriuret Pep Total Protein Albumin Lipase 08/03/19 08/03/19 06:08 06:15 WBC RBC Hgb Hct MCV RDW Plt Count Lymph % (Auto) [place] % (Auto) Lymph # [place] # Seg Neutrophils % Seg Neuts % (Manual) Lymphocytes % (Manual) Monocytes % (Manual) Nucleated RBC % Seg Neutrophils # Seg Neutrophils # Man Lymphocytes # (Manual) Monocytes # (Manual) D-Dimer POC ABG pH ABG pH POC ABG pCO2 POC ABG pO2 ABG pO2 ABG O2 Saturation ABG Hemoglobin Oxyhemoglobin Sodium 148 H Potassium Chloride 110.5 H Carbon Dioxide BUN Creatinine Glucose 104 H POC Glucose 113 H Lactic Acid Calcium 7.9 L Phosphorus Magnesium Total Bilirubin AST NT-Pro-B Natriuret Pep Total Protein Albumin Lipase
--- NOTE | 2019-08-03 12:23 | Progress Note ---
Assessment and Plan Cultures: 07/21/2019 blood culture: No growth 07/30/2019 urine culture: no growth A/P: 19-year-old male with Down syndrome admitted with severe constipation and fecal impaction: 1) Fever: ?pneumonia v/s intra-abdominal source. Persist in spite of abx. CXR with b/l opacities, likely combination of fluid, atelectasis but HAP also possible. Will switch abx. 2) Initial septic shock: resolved. intra-abdominal source. s/p ex-lap on 07/23/2019, findings of multiple distinct areas of necrosis on transverse colon. Rest of intestines were normal. Gen. Surg following (see #4). 3) Acute renal failure: resolved. Creatinine normal. Dose adjust abx accordingly. 4) Fecal impaction, colonic distention with necrosis and shock: s/p ex-lap on 07/23/2019, findings of multiple distinct areas of necrosis on transverse colon. rest of intestines were normal. Gen. Surg following, s/p washout on 07/26/2019 along with abdominal colectomy with ileosigmoid anastomosis, open abdomen. Underwent abdominal closure on 07/28/2019. Slow return of bowel function. 5) Acute respiratory failure: extubated 07/31/2019. CXR with b/l opacities, fluid overload v/s atelectasis v/s pneumonia. Recs: high fevers, will switch abx to Meropenem + Vancomycin recheck CBC in AM If fevers persist and WBC elevated, consider CT with IV contrast d/w Dr. Ruiz. Meghan Williamson MD, FACP [facility] C: [phone] O: [phone] F: [phone] Subjective Date of service: 08/03/19 Principal diagnosis: Respiratory Failure Interval history: Persistent fevers, as high as 102.7F. Otherwise awake, alert. No BM yet but passing gas. On NG suction. Poor historian. Having cough + clear sputum per RN. Objective - Exam Narrative Exam: Physical Exam: Constitutional: awake, alert Head, Ears, Nose: Normocephalic, atraumatic. External ears, nose normal. NG tube + Eyes: Conjunctivae/corneas clear. No icterus. No ptosis. Neck: supple, no meningeal signs Cardiovascular: S1, S2 normal. Respiratory: scattered rhonchi bilaterally GI: soft, midline dressing +, drain +, bowel sounds hypo. Mcpherson + Musculoskeletal: No pedal edema, no cyanosis. Skin: No rash or abscess Hem/Lymphatic: No palpable cervical or supraclavicular nodes. No lymphangitis Psych: no agitation Neurological: awake, alert - Constitutional Vitals: Vital Signs Temp Pulse Resp BP Pulse Ox 99.0 F 83 20 166/102 97 08/03/19 09:42 08/03/19 09:00 08/03/19 09:00 08/03/19 09:00 08/03/19 12:00 Temperature -Last 24 Hours Temperature 99.0 F Temperature 99.0 F Temperature 102.7 F Temperature 102.3 F Temperature 101.7 F Temperature 99.3 F - Labs CBC & Chem 7: 08/02/19 04:15 08/03/19 06:15 Labs: Abnormal lab results 08/02/19 08/03/19 08/03/19 Range/Units 18:07 00:48 06:08 Sodium (137-145) mmol/L Chloride (98-107) mmol/L Glucose (75-100) mg/dL POC Glucose 112 H 117 H 113 H (70-105) Calcium (8.4-10.2) mg/dL 08/03/19 Range/Units 06:15 Sodium 148 H (137-145) mmol/L Chloride 110.5 H (98-107) mmol/L Glucose 104 H (75-100) mg/dL POC Glucose (70-105) Calcium 7.9 L (8.4-10.2) mg/dL
[2019-08-03] MEDS ORDERED: VANCOMYCIN 2,000 MG in SODIUM CHLORIDE 0.9% 500 ML 500 ML IV ONE (12:24)
[2019-08-03] MEDS ORDERED: VANCOMYCIN PHARMACY TO DOSE IV SCH (13:00)
[2019-08-03] MEDS: MEROPENEM/NS 1 GRAM/100 ML 1 GRAM/100 ML BAG IV SCH ×2 (14:00→22:43)
--- NOTE | 2019-08-03 15:26 | Progress Note ---
Assessment and Plan s/p ex-lap with partial colon resection (07/23), s/p abdominal colectomy with ileocolostomy (07/26), POD#3; s/p abdominal reexploration, peritoneal lavage, closure of open abdomen, placement of URMILA drain (07/28). Pt remains strict NPO, cont IV lopressor. Consider stress test to r/o ischemic CMP once medically stabilized. DDimer is noted to be elevated - pt was previously too unstable for V/Q scan although he may be able to tolerate v/q scan now. will defer to primary team. Pt febrile - ID team is following. Will follow peripherally over the weekend. The patient has been seen in conjunction with Dr. Vamsi Blake who agrees with the assessment and plan of care. - Patient Problems (1) Acute respiratory failure Current Visit: Yes Status: Acute Qualifiers: Respiratory failure complication: hypoxia Qualified Code(s): J96.01 - Acute respiratory failure with hypoxia (2) Ischemic necrosis of large intestine Current Visit: Yes Status: Acute (3) Constipation Current Visit: Yes Status: Acute (4) Intractable vomiting with nausea Current Visit: Yes Status: Acute (5) Sinus tachycardia Current Visit: Yes Status: Resolved (6) Hypotension Current Visit: Yes Status: Resolved (7) Acute renal failure Current Visit: Yes Status: Acute (8) Hyperkalemia Current Visit: Yes Status: Acute (9) Leukocytosis Current Visit: Yes Status: Acute (10) Lactic acidosis Current Visit: Yes Status: Acute (11) Elevated d-dimer Current Visit: Yes Status: Acute (12) Cardiomyopathy Current Visit: Yes Status: Acute Qualifiers: Cardiomyopathy type: unspecified Qualified Code(s): I42.9 - Cardiomyopathy, unspecified Subjective Date of service: 08/03/19 Principal diagnosis: Respiratory Failure Interval history: pt awake, no apparent distress, in SR HR 70s on telemetry. mother at bedside. Objective Last Vital Signs Temp 99.5 F 08/03/19 12:00 Pulse 67 08/03/19 14:00 Resp 20 08/03/19 09:00 BP 153/106 08/03/19 14:00 Pulse Ox 99 08/03/19 14:07 - Physical Examination General: No Apparent Distress Neck: Positive: neck supple, trachea midline Cardiac: Positive: Reg Rate and Rhythm, S1/S2 Lungs: Positive: Decreased Breath Sounds Neuro: Positive: Other (awake) Abdomen: Positive: Other Skin: Positive: Other (abdominal surgical site). Negative: Rash Extremities: Absent: edema - Labs and Meds Comprehensive Metabolic Panel 08/03/19 Range/Units 06:15 Sodium 148 H (137-145) mmol/L Potassium 3.6 (3.6-5.0) mmol/L Chloride 110.5 H (98-107) mmol/L Carbon Dioxide 29 (22-30) mmol/L BUN 20 (9-20) mg/dL Creatinine 0.8 (0.8-1.5) mg/dL Glucose 104 H (75-100) mg/dL Calcium 7.9 L (8.4-10.2) mg/dL - Imaging and Cardiology EKG: report reviewed, image reviewed Stress echo: report reviewed, image reviewed Echo: report reviewed ( EF 25-30%, LV mildly dilated, impaired relaxation, trivial pericardial effusion, mod pleural effusion. ) - EKG Sinus rhythms and dysrhythmias: sinus tachycardia
--- NOTE | 2019-08-03 17:28 | Progress Note ---
Assessment and Plan Assessment and plan: Patient is 19 yo with Downs syndrome from [facility] home. he initially presented with abdominal pain, nausea and vomiting. he was seen and examined in ED. CT Abd showed severe constipation. he was given Fleets enema, admitted. His BMP was WNL. By next day Cr was 2.2 and he had hyperkalemia of 5.3. Repeat hrs later showed worse Cr 2.2 and Potassium went up to 6.0. and he had developed shortness of breath, desaturation so was transferred to ICU. 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 s/p ex-lap on 07/23/2019, Per surgery findings of multiple distinct areas of necrosis on transverse colon. Rest of intestines were normal. Patient had high-grade fever and IV antibiotics changed to vancomycin and meropenem Discontinued femoral Line COLUMBA due to ATN-Resolved Nephrology following Cardiomyopathy -Cardiology following, Ischemic work up when more stable V/Q scan when more stable lactic acidosis Secondary to ischemic Bowel Hyperkalemia-RESOLVED Diarrhea followed by constipation; patient is currently on ileostomy Thrombocytopenia - Resolved Sinus tachycardia - resolved Downs syndrome supportive care full code status Prognosis guarded Mother updated The high probability of a clinically significant, sudden or life threatening deterioration of the [renal, GI,] system(s) required my full and direct attention, intervention and personal management. The aggregate critical care time was [35] minutes. This time is in addition to time spent performing reported procedures but includes the following: [x] Data Review and interpretation [x] Patient assessment and monitoring of vital signs [x] Documentation [x] Medication orders and management History Interval history: Patient was seen and evaluated this morning, patient was alert and said he is feeling better. Hospitalist Physical - Physical exam Narrative exam: Patient was extubated and on IN oxygen. The patient appeared well nourished and normally developed. Vital signs as documented. Head exam is unremarkable. No scleral icterus . Neck is without jugular venous distension, thyromegaly, or carotid bruits. Lungs are clear to auscultation. Cardiac exam reveals regular rate and Rhythm. Abdominal exam reveals normal bowel sounds. Extremities are nonedematous and both femoral and pedal pulses are normal. VENDOR MANAGER: Patient was alert and oriented to self and person. - Constitutional Vitals: Temp Pulse Resp BP Pulse Ox 98.6 F 67 20 153/106 99 08/03/19 16:00 08/03/19 14:00 08/03/19 09:00 08/03/19 14:00 08/03/19 14:07 General appearance: Present: no acute distress, well-nourished Results - Labs CBC & Chem 7: 08/02/19 04:15 08/03/19 06:15 Labs: Laboratory Last Values WBC 14.0 K/mm3 (4.5-11.0) H 08/02/19 04:15 RBC 3.12 M/mm3 (3.65-5.03) L 08/02/19 04:15 Hgb 9.6 gm/dl (11.8-15.2) L 08/02/19 04:15 Hct 29.3 % (35.5-45.6) L 08/02/19 04:15 MCV 94 fl (84-94) 08/02/19 04:15 MCH 31 pg (28-32) 08/02/19 04:15 MCHC 33 % (32-34) 08/02/19 04:15 RDW 15.3 % (13.2-15.2) H 08/02/19 04:15 Plt Count 235 K/mm3 (140-440) 08/02/19 04:15 Lymph % (Auto) 9.9 % (13.4-35.0) L 08/02/19 04:15 Haines % (Auto) 8.6 % (0.0-7.3) H 08/02/19 04:15 Eos % (Auto) 0.6 % (0.0-4.3) 08/02/19 04:15 Baso % (Auto) 0.1 % (0.0-1.8) 08/02/19 04:15 Lymph # 1.4 K/mm3 (1.2-5.4) 08/02/19 04:15 Haines # 1.2 K/mm3 (0.0-0.8) H 08/02/19 04:15 Eos # 0.1 K/mm3 (0.0-0.4) 08/02/19 04:15 Baso # 0.0 K/mm3 (0.0-0.1) 08/02/19 04:15 Add Manual Diff Complete 07/31/19 08:10 Total Counted 100 07/31/19 08:10 Seg Neutrophils % 80.8 % (40.0-70.0) H 08/02/19 04:15 Seg Neuts % (Manual) 81.0 % (40.0-70.0) H 07/31/19 08:10 Band Neutrophils % 0 % 07/31/19 08:10 Lymphocytes % (Manual) 10.0 % (13.4-35.0) L 07/31/19 08:10 Reactive Lymphs % (Man) 0 % 07/31/19 08:10 Monocytes % (Manual) 2.0 % (0.0-7.3) 07/31/19 08:10 Eosinophils % (Manual) 0 % (0.0-4.3) 07/31/19 08:10 Basophils % (Manual) 0 % (0.0-1.8) 07/31/19 08:10 Metamyelocytes % 7.0 % 07/31/19 08:10 Myelocytes % 0 % 07/31/19 08:10 Promyelocytes % 0 % 07/31/19 08:10 Blast Cells % 0 % 07/31/19 08:10 Nucleated RBC % Not Reportable 07/31/19 08:10 Seg Neutrophils # 11.3 K/mm3 (1.8-7.7) H 08/02/19 04:15 Seg Neutrophils # Man 12.5 K/mm3 (1.8-7.7) H 07/31/19 08:10 Band Neutrophils # 0.0 K/mm3 07/31/19 08:10 Lymphocytes # (Manual) 1.5 K/mm3 (1.2-5.4) 07/31/19 08:10 Abs React Lymphs (Man) 0.0 K/mm3 07/31/19 08:10 Monocytes # (Manual) 0.3 K/mm3 (0.0-0.8) 07/31/19 08:10 Eosinophils # (Manual) 0.0 K/mm3 (0.0-0.4) 07/31/19 08:10 Basophils # (Manual) 0.0 K/mm3 (0.0-0.1) 07/31/19 08:10 Metamyelocytes # 1.1 K/mm3 07/31/19 08:10 Myelocytes # 0.0 K/mm3 07/31/19 08:10 Promyelocytes # 0.0 K/mm3 07/31/19 08:10 Blast Cells # 0.0 K/mm3 07/31/19 08:10 WBC Morphology Not Reportable 07/31/19 08:10 Hypersegmented Neuts Not Reportable 07/31/19 08:10 Hyposegmented Neuts Not Reportable 07/31/19 08:10 Hypogranular Neuts Not Reportable 07/31/19 08:10 Smudge Cells Not Reportable 07/31/19 08:10 Toxic Granulation Not Reportable 07/31/19 08:10 Toxic Vacuolation Not Reportable 07/31/19 08:10 Dohle Bodies Not Reportable 07/31/19 08:10 Pelger-Huet Anomaly Not Reportable 07/31/19 08:10 Alea Rods Not Reportable 07/31/19 08:10 Platelet Estimate Consistent w auto 07/31/19 08:10 Clumped Platelets Not Reportable 07/31/19 08:10 Plt Clumps, EDTA Not Reportable 07/31/19 08:10 Large Platelets Not Reportable 07/31/19 08:10 Giant Platelets Not Reportable 07/31/19 08:10 Platelet Satelliting Not Reportable 07/31/19 08:10 Plt Morphology Comment Not Reportable 07/31/19 08:10 RBC Morphology Not Reportable 07/31/19 08:10 Dimorphic RBCs Not Reportable 07/31/19 08:10 Polychromasia Not Reportable 07/31/19 08:10 Hypochromasia Not Reportable 07/31/19 08:10 Poikilocytosis Not Reportable 07/31/19 08:10 Anisocytosis Few 07/31/19 08:10 Microcytosis Not Reportable 07/31/19 08:10 Macrocytosis Not Reportable 07/31/19 08:10 Spherocytes Not Reportable 07/31/19 08:10 Pappenheimer Bodies Not Reportable 07/31/19 08:10 Sickle Cells Not Reportable 07/31/19 08:10 Target Cells Not Reportable 07/31/19 08:10 Tear Drop Cells Not Reportable 07/31/19 08:10 Ovalocytes Not Reportable 07/31/19 08:10 Helmet Cells Not Reportable 07/31/19 08:10 Woodard-Liverpool Bodies Not Reportable 07/31/19 08:10 [place] Rings Not Reportable 07/31/19 08:10 Kaylyn Cells Not Reportable 07/31/19 08:10 Bite Cells Not Reportable 07/31/19 08:10 Crenated Cell Not Reportable 07/31/19 08:10 Elliptocytes Not Reportable 07/31/19 08:10 Acanthocytes (Spur) Not Reportable 07/31/19 08:10 Rouleaux Not Reportable 07/31/19 08:10 Hemoglobin C Crystals Not Reportable 07/31/19 08:10 Schistocytes Not Reportable 07/31/19 08:10 Malaria parasites Not Reportable 07/31/19 08:10 Emanuel Bodies Not Reportable 07/31/19 08:10 Hem Pathologist Commnt No 07/31/19 08:10 D-Dimer 886.89 ng/mlDDU (0-234) H 07/22/19 21:45 Heparin Anti-Xa, Unfract Negative (Negative) 07/24/19 09:18 POC ABG pH 7.344 (7.35-7.45) L 07/30/19 05:23 ABG pH 7.406 pH Units (7.350-7.450) 07/31/19 04:42 POC ABG pCO2 48.8 (35-45) H 07/30/19 05:23 ABG pCO2 42.4 mm Hg 07/31/19 04:42 POC ABG pO2 77 (80-105) L 07/30/19 05:23 ABG pO2 85.1 mm Hg (80.0-90.0) 07/31/19 04:42 POC ABG HCO3 26.6 (22-26 mml/L) 07/30/19 05:23 ABG HCO3 26.0 mmol/L (20.0-26.0) 07/31/19 04:42 POC ABG Total CO2 28 (23-27mmol/L) 07/30/19 05:23 POC ABG O2 Sat 94 07/30/19 05:23 ABG O2 Saturation 96.7 % (95.0-99.0) 07/31/19 04:42 ABG O2 Content 13.6 (0.0-44) 07/31/19 04:42 POC ABG Base Excess 1 ((-2) - (+3)mmol/L) 07/30/19 05:23 ABG Base Excess 1.2 mmol/L (-2.0-3.0) 07/31/19 04:42 ABG Hemoglobin 10.1 gm/dl (14.0-18.0) L 07/31/19 04:42 ABG Carboxyhemoglobin 1.5 % (0.0-5.0) 07/31/19 04:42 ABG Methemoglobin 0.4 % (0.0-1.5) 07/31/19 04:42 Oxyhemoglobin 94.8 % (95.0-99.0) L 07/31/19 04:42 FiO2 40 % 07/31/19 04:42 Sodium 148 mmol/L (137-145) H 08/03/19 06:15 Potassium 3.6 mmol/L (3.6-5.0) 08/03/19 06:15 Chloride 110.5 mmol/L (98-107) H 08/03/19 06:15 Carbon Dioxide 29 mmol/L (22-30) 08/03/19 06:15 Anion Gap 12 mmol/L 08/03/19 06:15 BUN 20 mg/dL (9-20) 08/03/19 06:15 Creatinine 0.8 mg/dL (0.8-1.5) 08/03/19 06:15 Estimated GFR > 60 ml/min 08/03/19 06:15 BUN/Creatinine Ratio 25 % 08/03/19 06:15 Glucose 104 mg/dL (75-100) H 08/03/19 06:15 POC Glucose 124 (70-105) H 08/03/19 12:01 Lactic Acid 1.10 mmol/L (0.7-2.0) 07/25/19 09:16 Calcium 7.9 mg/dL (8.4-10.2) L 08/03/19 06:15 Phosphorus 3.40 mg/dL (2.5-4.5) D 08/03/19 06:15 Magnesium 2.00 mg/dL (1.7-2.3) 08/03/19 06:15 Total Bilirubin 0.80 mg/dL (0.1-1.2) 07/28/19 04:12 Direct Bilirubin 0.2 mg/dL (0-0.2) 07/21/19 19:02 Indirect Bilirubin 0.4 mg/dL 07/21/19 19:02 AST 20 units/L (5-40) 07/28/19 04:12 ALT 19 units/L (7-56) 07/28/19 04:12 Alkaline Phosphatase 43 units/L (35-129) 07/28/19 04:12 Ammonia 39.0 umol/L (25-60) 07/23/19 02:50 Troponin T < 0.010 ng/mL (0.00-0.029) 07/22/19 15:33 NT-Pro-B Natriuret Pep 5407 pg/mL (0-450) H 07/22/19 21:45 Total Protein 4.2 g/dL (6.3-8.2) L D 07/28/19 04:12 Albumin 2.0 g/dL (3.9-5) L 07/28/19 04:12 Albumin/Globulin Ratio 0.9 % 07/28/19 04:12 Triglycerides 136 mg/dL (2-149) 07/30/19 04:46 Lipase 10 units/L (13-60) L 07/21/19 19:02 Serotonin Release Assay See scanned result 07/24/19 09:18 TSH 0.888 mlU/mL (0.270-4.200) 07/23/19 13:06 Free T4 1.04 ng/dL (0.76-1.46) 07/23/19 13:06 Urine Color Yellow (Yellow) 08/01/19 16:30 Urine Turbidity Clear (Clear) 08/01/19 16:30 Urine pH 6.0 (5.0-7.0) 08/01/19 16:30 Ur Specific Mccracken 1.015 (1.003-1.030) 08/01/19 16:30 Urine Protein <15 mg/dl mg/dL (Negative) 08/01/19 16:30 Urine Glucose (UA) Neg mg/dL (Negative) 08/01/19 16:30 Urine Ketones Neg mg/dL (Negative) 08/01/19 16:30 Urine Blood Neg (Negative) 08/01/19 16:30 Urine Nitrite Neg (Negative) 08/01/19 16:30 Urine Bilirubin Neg (Negative) 08/01/19 16:30 Urine Ictotest Negative (Negative) 07/21/19 21:36 Urine Urobilinogen < 2.0 mg/dL (<2.0) 08/01/19 16:30 Ur Leukocyte Esterase Tr (Negative) 08/01/19 16:30 Urine WBC (Auto) 6.0 /HPF (0.0-6.0) 08/01/19 16:30 Urine RBC (Auto) 5.0 /HPF (0.0-6.0) 08/01/19 16:30 U Epithel Cells (Auto) < 1.0 /HPF (0-13.0) 08/01/19 16:30 Urine Mucus Few /HPF 08/01/19 16:30 Heparin-induced Plt Ab Negative (Negative) 07/24/19 09:18 UF Heparin High Dose 0 % Release 07/24/19 09:18 GIULIANA UFH Low Dose 0.1 1 % Release 07/24/19 09:18 GIULIANA UFH Low Dose 0.5 0 % Release 07/24/19 09:18 Hepatitis A IgM Ab Non-reactive (NonReactive) 07/23/19 13:06 Hep Bs Antigen Non-reactive (Negative) 07/23/19 13:06 Hep B Core IgM Ab Non-reactive (NonReactive) 07/23/19 13:06 Hepatitis C Antibody Non-reactive (NonReactive) 07/23/19 13:06 Blood Type A POSITIVE 07/28/19 04:12 Antibody Screen Negative 07/28/19 04:12 Active Medications - Current Medications Current Medications: Generic Name Dose Route Start Last Admin Trade Name Freq PRN Reason Stop Dose Admin Acetaminophen 650 mg 07/23/19 02:48 08/03/19 06:48 Tylenol OH 650 mg Q4H PRN Administration Fever >100.5 Enoxaparin Sodium 40 mg 07/27/19 10:00 08/03/19 09:10 Lovenox SUB-Q 40 mg DAILY STEPHEN Administration Famotidine 20 mg 07/24/19 10:00 08/03/19 09:11 Pepcid IV 20 mg BID STEPHEN Administration Haloperidol Lactate 5 mg 07/31/19 18:35 08/01/19 16:27 Haldol IV 5 mg Q6H PRN Administration Agitation Valproate Sodium 500 mg/ 105 mls @ 100 mls/hr 07/24/19 10:00 08/03/19 10:15 Sodium Chloride IV Infused Q12HR STEPHEN Infusion Fluconazole 200 mls @ 100 mls/hr 07/26/19 15:00 08/03/19 11:15 Diflucan IV Infused Q24HR STEPHEN Infusion Protocol Amino Acids/Electrolytes/Dextrose 2,400 mls @ 100 mls/hr 08/02/19 20:00 08/02/19 21:55 Tpn Adult IV 08/03/19 19:59 100 mls/hr DAILY@1999 [facility] Administration Protocol MEROPENEM/NS 1 GRAM/100 ML 1 gram in 100 mls @ 100 mls/hr 08/03/19 14:00 08/03/19 15:08 Merrem/Ns 1 Gram/100 Ml IV Infused Q8HR [facility] Infusion Protocol Amino Acids/Electrolytes/Dextrose 2,400 mls @ 100 mls/hr 08/03/19 20:00 Tpn Adult IV 08/04/19 19:59 DAILY@1999 [facility] Protocol Fat Emulsion Intravenous 250 mls @ 21 mls/hr 08/03/19 20:00 Intralipid 20% IV 08/04/19 08:00 DAILY@1999 [facility] Metoprolol Tartrate 5 mg 08/02/19 14:00 08/03/19 14:00 Metoprolol IV 5 mg TID STEPHEN Administration Morphine Sulfate 2 mg 07/31/19 18:36 08/03/19 09:11 Morphine IV 2 mg Q4H PRN Administration Pain, Moderate (4-6) Ondansetron HCl 4 mg 07/21/19 22:25 07/22/19 01:07 Zofran IV 4 mg Q8H PRN Administration Nausea And Vomiting Nutrition/Malnutrition Assess - Dietary Evaluation Nutrition/Malnutrition Findings: Nutrition Notes Start: 07/23/19 10:09 Freq: Status: Active Protocol: Document 08/03/19 09:47 KS (Rec: 08/03/19 10:05 KS [id number]) Co-Sign 08/03/19 09:47 LM Nutrition Notes Initial or Follow up Reassessment Current Diagnosis Acute Kidney Injury Other Pertinent Diagnosis Necrosis of transverse colon, down syndrome Current Diet NPO, TPN at 100mL/hr Labs/Tests Na 148 Cl 111 Glu 104 Ca 7.9 Pertinent Medications Reviewed Height 5 ft 7 in Weight 141.9 kg [place] Body Weight (kg) 67.27 BMI 48.9 Weight change and time frame Wt change noted Subjective/Other Information CPN day 8. Pt has not advanced to trickle TF. Percent of energy/protein needs met: 66%/100% Burn Absent Trauma Absent GI Symptoms Nausea,Vomiting,Constipation Minimum of two criteria No physical signs of malnutrition #1 Nutrition Diagnosis Inadequate oral intake Diagnosis Progress(for reassessment Continues documentation) Is patient on ventilator? No Is Patient Ambulatory and/or Out of Bed No REE-([facility]-confined to bed) 2859.468 Kcal/Kg value to use for calculation 14 Approximate Energy Requirements Using 1986 kcal/Kg Calculation Used for Recommendations Kcal/kg Additional Notes Pro needs 86-107g (0.8-1.0g/kg /day Adj BW 107.1kg) Fluid needs 1ml/kcal or per MD Nutrition Intervention Change Diet Order: CPN Nutrition Support: Continue CPN at 100mL/hr: 60 mEq K, 5 mmol P, MVI, 250mL lipid emulsion. Kcal 1,830 Protein (gm) 120 Carbohydrates (gm) 250 Fat (gm) 50 Fluid (mL) 2,650 Fiber (gm) 0 Goal #1 Meet kcal/PRO as best as possible with CPN Anticipated Discharge Needs: Unable to identify at this time Follow-Up By: 08/04/19 Additional Comments Follow for labs in AM: BMP, Mg , Phos
[2019-08-03] MEDS ORDERED: TOTAL PARENTERAL NUTRITION 2,400 ML IV SCH (20:00)
[2019-08-03] MEDS ORDERED: FAT EMULSIONS 20% 250 ML IV SCH (20:00)
[2019-08-04] MEDS: MORPHINE 2 MG/1 ML INJ IV PRN ×2 (01:42→20:55)
[2019-08-04] MEDS: VANCOMYCIN 2,000 MG in SODIUM CHLORIDE 0.9% 500 ML 500 ML IV SCH ×2 (01:42→14:55)
[2019-08-04 07:03] LABS: Basophils # (Auto) 0.1 K/mm3 (0.0-0.1); Basophils % (Auto) 0.8 % (0.0-1.8); Eosinophils # (Auto) 0.1 K/mm3 (0.0-0.4); Eosinophils % (Auto) 0.9 % (0.0-4.3); Hematocrit 28.5 % (35.5-45.6); Hemoglobin 9.8 gm/dl (11.8-15.2); Lymphocytes # (Auto) 1.8 K/mm3 (1.2-5.4); Lymphocytes % (Auto) 16.7 % (13.4-35.0); Mean Corpuscular HGB Conc 34 % (32-34); Mean Corpuscular Volume 92 fl (84-94); Platelet Count 262 K/mm3 (140-440); Red Blood Count 3.09 M/mm3 (3.65-5.03); Red Cell Distribution Width 14.2 % (13.2-15.2)
[2019-08-04 07:24] LABS: BUN/Creatinine Ratio 27; Blood Urea Nitrogen 16 mg/dL (9-20); Hemolysis Index 41
[2019-08-04] MEDS: METOPROLOL TARTRATE 5 MG/5 ML INJ IV SCH ×3 (08:35→20:56)
--- NOTE | 2019-08-04 09:33 | Progress Note ---
Assessment and Plan 19 y/o male with acute respiratory failure s/p exploratory lap x 2 now on TPN, continuous NG suction and continued sedation. 1. Follow up ID recs. Appears change in abx have improved overall clinical picture, at least numbers cobos 2. Await surgery eval and decision about NG output. May try feeds soon. 3. Continue TPN 4. BP elevated. Improved this am 5. May attempt to move to step down after surgery sees today. Subjective Date of service: 08/04/19 Principal diagnosis: Respiratory Failure Interval history: No acute events. ID switched ABx therapy yesterday. No further temps. WC down to 11K. Clinically appears stable. Down to 2 liters NC. BP is better Objective - Constitutional Vitals: Vital Signs - 12hr 08/03/19 08/03/19 08/03/19 22:00 22:30 22:40 Temperature Pulse Rate 63 70 81 Pulse Rate [ From Monitor] Respiratory 16 22 Rate Blood Pressure 151/90 143/87 143/87 O2 Sat by Pulse 100 99 Oximetry 08/03/19 08/03/19 08/04/19 23:01 23:30 00:00 Temperature 99.8 F H Pulse Rate 66 81 74 Pulse Rate [ 70 From Monitor] Respiratory 15 22 20 Rate Blood Pressure 150/90 154/93 152/95 O2 Sat by Pulse 100 98 95 Oximetry 08/04/19 08/04/19 08/04/19 00:30 01:00 01:30 Temperature Pulse Rate 95 H 67 90 Pulse Rate [ From Monitor] Respiratory 17 20 14 Rate Blood Pressure 152/95 152/88 162/97 O2 Sat by Pulse 95 95 97 Oximetry 08/04/19 08/04/19 08/04/19 02:00 02:30 03:00 Temperature Pulse Rate 80 89 88 Pulse Rate [ From Monitor] Respiratory 17 21 28 H Rate Blood Pressure 152/99 153/94 151/97 O2 Sat by Pulse 99 98 99 Oximetry 08/04/19 08/04/19 08/04/19 03:30 04:00 04:30 Temperature 98.2 F Pulse Rate 84 70 67 Pulse Rate [ 72 From Monitor] Respiratory 30 H 17 28 H Rate Blood Pressure 147/92 158/95 150/90 O2 Sat by Pulse 98 97 100 Oximetry 08/04/19 08/04/19 08/04/19 05:00 05:24 05:30 Temperature Pulse Rate 78 77 Pulse Rate [ From Monitor] Respiratory 29 H 25 H Rate Blood Pressure 145/86 145/92 O2 Sat by Pulse 100 Oximetry 08/04/19 08/04/19 06:00 09:24 Temperature Pulse Rate 79 Pulse Rate [ From Monitor] Respiratory 14 Rate Blood Pressure 143/93 O2 Sat by Pulse 98 Oximetry - Labs CBC & Chem 7: 08/04/19 05:40 08/04/19 05:40 Labs: Abnormal lab results 08/03/19 08/03/19 08/04/19 Range/Units 12:01 18:20 05:40 RBC (3.65-5.03) M/mm3 Hgb (11.8-15.2) gm/dl Hct (35.5-45.6) % [place] % (Auto) (0.0-7.3) % [place] # (0.0-0.8) K/mm3 Seg Neutrophils % (40.0-70.0) % Seg Neutrophils # (1.8-7.7) K/mm3 Sodium 147 H (137-145) mmol/L Chloride 109.6 H (98-107) mmol/L Creatinine 0.6 L (0.8-1.5) mg/dL Glucose 108 H (75-100) mg/dL POC Glucose 124 H 115 H (70-105) Calcium 8.0 L (8.4-10.2) mg/dL 08/04/19 08/04/19 Range/Units 05:40 06:07 RBC 3.09 L (3.65-5.03) M/mm3 Hgb 9.8 L (11.8-15.2) gm/dl Hct 28.5 L (35.5-45.6) % [place] % (Auto) 9.0 H (0.0-7.3) % [place] # 1.0 H (0.0-0.8) K/mm3 Seg Neutrophils % 72.6 H (40.0-70.0) % Seg Neutrophils # 7.9 H (1.8-7.7) K/mm3 Sodium (137-145) mmol/L Chloride (98-107) mmol/L Creatinine (0.8-1.5) mg/dL Glucose (75-100) mg/dL POC Glucose 110 H (70-105) Calcium (8.4-10.2) mg/dL Medications & Allergies - Medications Allergies/Adverse Reactions: Allergies No Known Allergies Allergy (Verified 10/20/15 03:43) Home Medications: Home Medications Medication Instructions Recorded Confirmed Last Taken Type Benztropine [Cogentin] 0.5 mg PO QHS 05/17/19 07/24/19 Unknown History Divalproex ER [Depakote ER] 500 mg PO BID 05/17/19 07/24/19 Unknown History clonazePAM [KlonoPIN] 2 mg PO BID 05/17/19 07/24/19 Unknown History traZODone [Desyrel] 100 mg PO HS 06/05/19 07/24/19 Unknown History Divalproex ER [Depakote ER] 500 mg PO BID tablet 06/06/19 07/24/19 Unknown Rx Lactulose 10 gm PO DAILY PRN #150 ml 07/21/19 Unknown Rx Active Medications: Generic Name Dose Route Start Last Admin Trade Name Freq PRN Reason Stop Dose Admin Acetaminophen 650 mg 07/23/19 02:48 08/03/19 06:48 Tylenol DC 650 mg Q4H PRN Administration Fever >100.5 Enoxaparin Sodium 40 mg 07/27/19 10:00 08/03/19 09:10 Lovenox SUB-Q 40 mg DAILY STEPHEN Administration Famotidine 20 mg 07/24/19 10:00 08/03/19 22:41 Pepcid IV 20 mg BID STEPHEN Administration Haloperidol Lactate 5 mg 07/31/19 18:35 08/01/19 16:27 Haldol IV 5 mg Q6H PRN Administration Agitation Valproate Sodium 500 mg/ 105 mls @ 100 mls/hr 07/24/19 10:00 08/03/19 22:42 Sodium Chloride IV 100 mls/hr Q12HR STEPHEN Administration Fluconazole 200 mls @ 100 mls/hr 07/26/19 15:00 08/03/19 11:15 Diflucan IV Infused Q24HR STEPHEN Infusion Protocol MEROPENEM/NS 1 GRAM/100 ML 1 gram in 100 mls @ 100 mls/hr 08/03/19 14:00 08/03/19 22:43 Merrem/Ns 1 Gram/100 Ml IV 100 mls/hr Q8HR STEPHEN Administration Protocol Amino Acids/Electrolytes/Dextrose 2,400 mls @ 100 mls/hr 08/03/19 20:00 08/03/19 20:00 Tpn Adult IV 08/04/19 19:59 100 mls/hr DAILY@2000 STEPHEN Administration Protocol Vancomycin HCl 2,000 mg/ 540 mls @ 250 mls/hr 08/04/19 02:00 08/04/19 01:42 Sodium Chloride IV 250 mls/hr Q12H STEPHEN Administration Metoprolol Tartrate 5 mg 08/02/19 14:00 08/03/19 22:40 Metoprolol IV 5 mg TID STEPHEN Administration Morphine Sulfate 2 mg 07/31/19 18:36 08/04/19 01:42 Morphine IV 2 mg Q4H PRN Administration Pain, Moderate (4-6) Ondansetron HCl 4 mg 07/21/19 22:25 07/22/19 01:07 Zofran IV 4 mg Q8H PRN Administration Nausea And Vomiting
[2019-08-04] MEDS: VALPROATE SODIUM 500 MG in SODIUM CHLORIDE 0.9% 100 ML IV SCH ×2 (10:37→21:10)
[2019-08-04] MEDS: FLUCONAZOLE 400 MG 200 ML IV SCH (10:38)
[2019-08-04] MEDS: ENOXAPARIN 40 MG/0.4 ML INJ SUB-Q SCH (10:39)
[2019-08-04] MEDS: FAMOTIDINE 20 MG/2 ML INJ IV SCH ×2 (10:39→21:10)
[2019-08-04] MEDS: MEROPENEM/NS 1 GRAM/100 ML 1 GRAM/100 ML BAG IV SCH ×3 (13:02→21:10)
--- NOTE | 2019-08-04 13:16 | Progress Note ---
Assessment and Plan (1) Ischemic necrosis of large intestine Current Visit: Yes Status: Acute Plan to address problem: s/p ex-lap with partial colon resection (07/23) - POD#12; s/p abdominal colectomy with ileocolostomy (07/26) - POD#9; s/p abdominal reexploration, peritoneal lavage, closure of open abdomen, placement of URMILA drain (07/28) POD# 7 Plan: 1. neuro - stable. appears to be understanding questions and responding appropriately 2. CV - DVT ppx. Monitor CBC - normal today. Will order lower extremity duplex to r/o DVT as patient has been immobile and febrile - notified Dr. De La Fuente 3. Resp - Left pleural effusion - new since last CXR on 07/23. Has congested cough as well. Probably component of atelectasis as well. D/w Dr. Ruiz, patient calmer and may be worthwhile to initiate percussive therapy to help with secretions. 4. GI - NPO, TPN, NGT to LIWS. record URMILA output. Pt will likely have prolonged ileus, do not start TF until evidence of bowel function. GI ppx. Abdominal binder at all times to minimize risk of patient pulling at URMILA, incision, etc. Appears as though the NGT appearance is becoming scoreboard operator and volume is slowly decreasing. Perhaps a sign that the ileus is beginning to resolve. If the NG tube output eventually appears consistent with gastric fluid, but the patient has not had a bowel movement yet, we will consider trickle tube feeds at that time. 5. - lee for strict I/Os. May be removed and replaced with condom cath when ok with 1' service and nephro. UA ok. 6. ID - abx per ID 7. Endo - blood glucose monitoring per protocol 8. FEN - BMP daily, replace lytes as needed. TPN Dispo - ICU Thank you, please call with questions. Subjective Date of service: 08/04/19 Narrative: Pt seen and examined. No acute complaints. Afebrile overnight but had fever of 102 this am. Pt denies abdominal pain. No BM or flatus. Objective Vital Signs - 12hr 08/04/19 08/04/19 08/04/19 01:30 02:00 02:30 Temperature Pulse Rate 90 80 89 Pulse Rate [ From Monitor] Respiratory 14 17 21 Rate Blood Pressure 162/97 152/99 153/94 O2 Sat by Pulse 97 99 98 Oximetry 08/04/19 08/04/19 08/04/19 03:00 03:30 04:00 Temperature 98.2 F Pulse Rate 88 84 70 Pulse Rate [ 72 From Monitor] Respiratory 28 H 30 H 17 Rate Blood Pressure 151/97 147/92 158/95 O2 Sat by Pulse 99 98 97 Oximetry 08/04/19 08/04/19 08/04/19 04:30 05:00 05:24 Temperature Pulse Rate 67 78 Pulse Rate [ From Monitor] Respiratory 28 H 29 H Rate Blood Pressure 150/90 145/86 O2 Sat by Pulse 100 100 Oximetry 08/04/19 08/04/19 08/04/19 05:30 06:00 08:35 Temperature Pulse Rate 77 79 84 Pulse Rate [ From Monitor] Respiratory 25 H 14 Rate Blood Pressure 145/92 143/93 144/87 O2 Sat by Pulse Oximetry 08/04/19 09:24 Temperature Pulse Rate Pulse Rate [ From Monitor] Respiratory Rate Blood Pressure O2 Sat by Pulse 98 Oximetry - General physical appearance Narrative Exam: Gen: Awake and alert. NAD ENT: NGT with bilious drainage CV: s1, S2+ Resp: even and unlabored - on NC Abd: soft, NT, ND. Incision with small opening at umbilicus with scant serous drainage. Otherwise, remainder of incision is c/d/i. URMILA is serous. Ext: no c/c/e - Labs 08/04/19 05:40 08/04/19 05:40 Diabetes panel 08/04/19 Range/Units 05:40 Sodium 147 H (137-145) mmol/L Potassium 3.7 (3.6-5.0) mmol/L Chloride 109.6 H (98-107) mmol/L Carbon Dioxide 28 (22-30) mmol/L BUN 16 (9-20) mg/dL Creatinine 0.6 L (0.8-1.5) mg/dL Glucose 108 H (75-100) mg/dL Calcium 8.0 L (8.4-10.2) mg/dL Calcium panel 08/04/19 Range/Units 05:40 Calcium 8.0 L (8.4-10.2) mg/dL Phosphorus 3.10 (2.5-4.5) mg/dL Pituitary panel 08/04/19 Range/Units 05:40 Sodium 147 H (137-145) mmol/L Potassium 3.7 (3.6-5.0) mmol/L Chloride 109.6 H (98-107) mmol/L Carbon Dioxide 28 (22-30) mmol/L BUN 16 (9-20) mg/dL Creatinine 0.6 L (0.8-1.5) mg/dL Glucose 108 H (75-100) mg/dL Calcium 8.0 L (8.4-10.2) mg/dL Adrenal panel 08/04/19 Range/Units 05:40 Sodium 147 H (137-145) mmol/L Potassium 3.7 (3.6-5.0) mmol/L Chloride 109.6 H (98-107) mmol/L Carbon Dioxide 28 (22-30) mmol/L BUN 16 (9-20) mg/dL Creatinine 0.6 L (0.8-1.5) mg/dL Glucose 108 H (75-100) mg/dL Calcium 8.0 L (8.4-10.2) mg/dL
--- NOTE | 2019-08-04 15:05 | Progress Note ---
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 he initially presented with abdominal pain, nausea and vomiting. he was seen and examined in ED. CT Abd showed severe constipation. he was given Fleets enema, admitted. His BMP was WNL. By next day Cr was 2.2 and he had hyperkalemia of 5.3. Repeat hrs later showed worse Cr 2.2 and Potassium went up to 6.0. and he had developed shortness of breath, desaturation so was transferred to ICU. Acute resp failure now intubated, >96 hrs Extubated on 07/31/19, on high flow oxygen Research Environmental Scientist following Aspiration precautions Ischemic Bowel, s/p ex lap and resection Surgery following s/p abdominal colectomy with ileocolostomy (07/26) S/P Open abdominal wound closure 07/28 on TPN Septic shock: intra-abdominal source. s/p ex-lap on 07/23/2019, Per surgery findings of multiple distinct areas of necrosis on transverse colon. Rest of intestines were normal. Patient had high-grade fever and IV antibiotics changed to vancomycin and meropenem yesterday Patient still has fever will do doppler u/s [place] due to ATN-Resolved Nephrology following Cardiomyopathy -Cardiology following, Ischemic work up when more stable V/Q scan when more stable lactic acidosis Secondary to ischemic Bowel Hyperkalemia-RESOLVED Diarrhea followed by constipation; patient is currently on ileostomy Thrombocytopenia - Resolved Sinus tachycardia - resolved Downs syndrome supportive care full code status Prognosis guarded Mother updated The high probability of a clinically significant, sudden or life threatening deterioration of the [renal, GI,] system(s) required my full and direct attention, intervention and personal management. The aggregate critical care time was [35] minutes. This time is in addition to time spent performing reported procedures but includes the following: [x] Data Review and interpretation [x] Patient assessment and monitoring of vital signs [x] Documentation [x] Medication orders and management History Interval history: Patient was seen and evaluated this morning, patient was alert and said he is feeling better. Patient didn't have fever overnight but this morning he had high-grade fever. Hospitalist Physical - Physical exam Narrative exam: Patient was extubated and on [place] oxygen. The patient appeared well nourished and normally developed. Vital signs as documented. Head exam is unremarkable. No scleral icterus . Neck is without jugular venous distension, thyromegaly, or carotid bruits. Lungs are clear to auscultation. Cardiac exam reveals regular rate and Rhythm. Abdominal exam reveals normal bowel sounds. Extremities are nonedematous and both femoral and pedal pulses are normal. COST AND RISK ANALYSIS MANAGER: Patient was alert and oriented to self and person. - Constitutional Vitals: Temp Pulse Resp BP Pulse Ox 101.5 F H 80 21 151/98 98 08/04/19 12:00 08/04/19 14:30 08/04/19 14:30 08/04/19 14:30 08/04/19 14:30 General appearance: Present: no acute distress, well-nourished Results - Labs CBC & Chem 7: 08/04/19 05:40 08/04/19 05:40 Labs: Laboratory Last Values WBC 10.9 K/mm3 (4.5-11.0) 08/04/19 05:40 RBC 3.09 M/mm3 (3.65-5.03) L 08/04/19 05:40 Hgb 9.8 gm/dl (11.8-15.2) L 08/04/19 05:40 Hct 28.5 % (35.5-45.6) L 08/04/19 05:40 MCV 92 fl (84-94) 08/04/19 05:40 MCH 32 pg (28-32) 08/04/19 05:40 MCHC 34 % (32-34) 08/04/19 05:40 RDW 14.2 % (13.2-15.2) 08/04/19 05:40 Plt Count 262 K/mm3 (140-440) 08/04/19 05:40 Lymph % (Auto) 16.7 % (13.4-35.0) 08/04/19 05:40 Cross % (Auto) 9.0 % (0.0-7.3) H 08/04/19 05:40 Eos % (Auto) 0.9 % (0.0-4.3) 08/04/19 05:40 Baso % (Auto) 0.8 % (0.0-1.8) 08/04/19 05:40 Lymph # 1.8 K/mm3 (1.2-5.4) 08/04/19 05:40 Cross # 1.0 K/mm3 (0.0-0.8) H 08/04/19 05:40 Eos # 0.1 K/mm3 (0.0-0.4) 08/04/19 05:40 Baso # 0.1 K/mm3 (0.0-0.1) 08/04/19 05:40 Add Manual Diff Complete 07/31/19 08:10 Total Counted 100 07/31/19 08:10 Seg Neutrophils % 72.6 % (40.0-70.0) H 08/04/19 05:40 Seg Neuts % (Manual) 81.0 % (40.0-70.0) H 07/31/19 08:10 Band Neutrophils % 0 % 07/31/19 08:10 Lymphocytes % (Manual) 10.0 % (13.4-35.0) L 07/31/19 08:10 Reactive Lymphs % (Man) 0 % 07/31/19 08:10 Monocytes % (Manual) 2.0 % (0.0-7.3) 07/31/19 08:10 Eosinophils % (Manual) 0 % (0.0-4.3) 07/31/19 08:10 Basophils % (Manual) 0 % (0.0-1.8) 07/31/19 08:10 Metamyelocytes % 7.0 % 07/31/19 08:10 Myelocytes % 0 % 07/31/19 08:10 Promyelocytes % 0 % 07/31/19 08:10 Blast Cells % 0 % 07/31/19 08:10 Nucleated RBC % Not Reportable 07/31/19 08:10 Seg Neutrophils # 7.9 K/mm3 (1.8-7.7) H 08/04/19 05:40 Seg Neutrophils # Man 12.5 K/mm3 (1.8-7.7) H 07/31/19 08:10 Band Neutrophils # 0.0 K/mm3 07/31/19 08:10 Lymphocytes # (Manual) 1.5 K/mm3 (1.2-5.4) 07/31/19 08:10 Abs React Lymphs (Man) 0.0 K/mm3 07/31/19 08:10 Monocytes # (Manual) 0.3 K/mm3 (0.0-0.8) 07/31/19 08:10 Eosinophils # (Manual) 0.0 K/mm3 (0.0-0.4) 07/31/19 08:10 Basophils # (Manual) 0.0 K/mm3 (0.0-0.1) 07/31/19 08:10 Metamyelocytes # 1.1 K/mm3 07/31/19 08:10 Myelocytes # 0.0 K/mm3 07/31/19 08:10 Promyelocytes # 0.0 K/mm3 07/31/19 08:10 Blast Cells # 0.0 K/mm3 07/31/19 08:10 WBC Morphology Not Reportable 07/31/19 08:10 Hypersegmented Neuts Not Reportable 07/31/19 08:10 Hyposegmented Neuts Not Reportable 07/31/19 08:10 Hypogranular Neuts Not Reportable 07/31/19 08:10 Smudge Cells Not Reportable 07/31/19 08:10 Toxic Granulation Not Reportable 07/31/19 08:10 Toxic Vacuolation Not Reportable 07/31/19 08:10 Dohle Bodies Not Reportable 07/31/19 08:10 Pelger-Huet Anomaly Not Reportable 07/31/19 08:10 Alea Rods Not Reportable 07/31/19 08:10 Platelet Estimate Consistent w auto 07/31/19 08:10 Clumped Platelets Not Reportable 07/31/19 08:10 Plt Clumps, EDTA Not Reportable 07/31/19 08:10 Large Platelets Not Reportable 07/31/19 08:10 Giant Platelets Not Reportable 07/31/19 08:10 Platelet Satelliting Not Reportable 07/31/19 08:10 Plt Morphology Comment Not Reportable 07/31/19 08:10 RBC Morphology Not Reportable 07/31/19 08:10 Dimorphic RBCs Not Reportable 07/31/19 08:10 Polychromasia Not Reportable 07/31/19 08:10 Hypochromasia Not Reportable 07/31/19 08:10 Poikilocytosis Not Reportable 07/31/19 08:10 Anisocytosis Few 07/31/19 08:10 Microcytosis Not Reportable 07/31/19 08:10 Macrocytosis Not Reportable 07/31/19 08:10 Spherocytes Not Reportable 07/31/19 08:10 Pappenheimer Bodies Not Reportable 07/31/19 08:10 Sickle Cells Not Reportable 07/31/19 08:10 Target Cells Not Reportable 07/31/19 08:10 Tear Drop Cells Not Reportable 07/31/19 08:10 Ovalocytes Not Reportable 07/31/19 08:10 Helmet Cells Not Reportable 07/31/19 08:10 [place] Bodies Not Reportable 07/31/19 08:10 [place] Rings Not Reportable 07/31/19 08:10 Widen Cells Not Reportable 07/31/19 08:10 Bite Cells Not Reportable 07/31/19 08:10 Crenated Cell Not Reportable 07/31/19 08:10 Elliptocytes Not Reportable 07/31/19 08:10 Acanthocytes (Spur) Not Reportable 07/31/19 08:10 Rouleaux Not Reportable 07/31/19 08:10 Hemoglobin C Crystals Not Reportable 07/31/19 08:10 Schistocytes Not Reportable 07/31/19 08:10 Malaria parasites Not Reportable 07/31/19 08:10 Emanuel Bodies Not Reportable 07/31/19 08:10 Hem Pathologist Commnt No 07/31/19 08:10 D-Dimer 886.89 ng/mlDDU (0-234) H 07/22/19 21:45 Heparin Anti-Xa, Unfract Negative (Negative) 07/24/19 09:18 POC ABG pH 7.344 (7.35-7.45) L 07/30/19 05:23 ABG pH 7.406 pH Units (7.350-7.450) 07/31/19 04:42 POC ABG pCO2 48.8 (35-45) H 07/30/19 05:23 ABG pCO2 42.4 mm Hg 07/31/19 04:42 POC ABG pO2 77 (80-105) L 07/30/19 05:23 ABG pO2 85.1 mm Hg (80.0-90.0) 07/31/19 04:42 POC ABG HCO3 26.6 (22-26 mml/L) 07/30/19 05:23 ABG HCO3 26.0 mmol/L (20.0-26.0) 07/31/19 04:42 POC ABG Total CO2 28 (23-27mmol/L) 07/30/19 05:23 POC ABG O2 Sat 94 07/30/19 05:23 ABG O2 Saturation 96.7 % (95.0-99.0) 07/31/19 04:42 ABG O2 Content 13.6 (0.0-44) 07/31/19 04:42 POC ABG Base Excess 1 ((-2) - (+3)mmol/L) 07/30/19 05:23 ABG Base Excess 1.2 mmol/L (-2.0-3.0) 07/31/19 04:42 ABG Hemoglobin 10.1 gm/dl (14.0-18.0) L 07/31/19 04:42 ABG Carboxyhemoglobin 1.5 % (0.0-5.0) 07/31/19 04:42 ABG Methemoglobin 0.4 % (0.0-1.5) 07/31/19 04:42 Oxyhemoglobin 94.8 % (95.0-99.0) L 07/31/19 04:42 FiO2 40 % 07/31/19 04:42 Sodium 147 mmol/L (137-145) H 08/04/19 05:40 Potassium 3.7 mmol/L (3.6-5.0) 08/04/19 05:40 Chloride 109.6 mmol/L (98-107) H 08/04/19 05:40 Carbon Dioxide 28 mmol/L (22-30) 08/04/19 05:40 Anion Gap 13 mmol/L 08/04/19 05:40 BUN 16 mg/dL (9-20) 08/04/19 05:40 Creatinine 0.6 mg/dL (0.8-1.5) L 08/04/19 05:40 Estimated GFR > 60 ml/min 08/04/19 05:40 BUN/Creatinine Ratio 27 % 08/04/19 05:40 Glucose 108 mg/dL (75-100) H 08/04/19 05:40 POC Glucose 110 (70-105) H 08/04/19 12:29 Lactic Acid 1.10 mmol/L (0.7-2.0) 07/25/19 09:16 Calcium 8.0 mg/dL (8.4-10.2) L 08/04/19 05:40 Phosphorus 3.10 mg/dL (2.5-4.5) 08/04/19 05:40 Magnesium 2.10 mg/dL (1.7-2.3) 08/04/19 05:40 Total Bilirubin 0.80 mg/dL (0.1-1.2) 07/28/19 04:12 Direct Bilirubin 0.2 mg/dL (0-0.2) 07/21/19 19:02 Indirect Bilirubin 0.4 mg/dL 07/21/19 19:02 AST 20 units/L (5-40) 07/28/19 04:12 ALT 19 units/L (7-56) 07/28/19 04:12 Alkaline Phosphatase 43 units/L (35-129) 07/28/19 04:12 Ammonia 39.0 umol/L (25-60) 07/23/19 02:50 Troponin T < 0.010 ng/mL (0.00-0.029) 07/22/19 15:33 NT-Pro-B Natriuret Pep 5407 pg/mL (0-450) H 07/22/19 21:45 Total Protein 4.2 g/dL (6.3-8.2) L D 07/28/19 04:12 Albumin 2.0 g/dL (3.9-5) L 07/28/19 04:12 Albumin/Globulin Ratio 0.9 % 07/28/19 04:12 Triglycerides 136 mg/dL (2-149) 07/30/19 04:46 Lipase 10 units/L (13-60) L 07/21/19 19:02 Serotonin Release Assay See scanned result 07/24/19 09:18 TSH 0.888 mlU/mL (0.270-4.200) 07/23/19 13:06 Free T4 1.04 ng/dL (0.76-1.46) 07/23/19 13:06 Urine Color Yellow (Yellow) 08/01/19 16:30 Urine Turbidity Clear (Clear) 08/01/19 16:30 Urine pH 6.0 (5.0-7.0) 08/01/19 16:30 Ur Specific [place] 1.015 (1.003-1.030) 08/01/19 16:30 Urine Protein <15 mg/dl mg/dL (Negative) 08/01/19 16:30 Urine Glucose (UA) Neg mg/dL (Negative) 08/01/19 16:30 Urine Ketones Neg mg/dL (Negative) 08/01/19 16:30 Urine Blood Neg (Negative) 08/01/19 16:30 Urine Nitrite Neg (Negative) 08/01/19 16:30 Urine Bilirubin Neg (Negative) 08/01/19 16:30 Urine Ictotest Negative (Negative) 07/21/19 21:36 Urine Urobilinogen < 2.0 mg/dL (<2.0) 08/01/19 16:30 Ur Leukocyte Esterase Tr (Negative) 08/01/19 16:30 Urine WBC (Auto) 6.0 /HPF (0.0-6.0) 08/01/19 16:30 Urine RBC (Auto) 5.0 /HPF (0.0-6.0) 08/01/19 16:30 U Epithel Cells (Auto) < 1.0 /HPF (0-13.0) 08/01/19 16:30 Urine Mucus Few /HPF 08/01/19 16:30 Heparin-induced Plt Ab Negative (Negative) 07/24/19 09:18 UF Heparin High Dose 0 % Release 07/24/19 09:18 GIULIANA UFH Low Dose 0.1 1 % Release 07/24/19 09:18 GIULIANA UFH Low Dose 0.5 0 % Release 07/24/19 09:18 Hepatitis A IgM Ab Non-reactive (NonReactive) 07/23/19 13:06 Hep Bs Antigen Non-reactive (Negative) 07/23/19 13:06 Hep B Core IgM Ab Non-reactive (NonReactive) 07/23/19 13:06 Hepatitis C Antibody Non-reactive (NonReactive) 07/23/19 13:06 Blood Type A POSITIVE 07/28/19 04:12 Antibody Screen Negative 07/28/19 04:12 Active Medications - Current Medications Current Medications: Generic Name Dose Route Start Last Admin Trade Name Freq PRN Reason Stop Dose Admin Acetaminophen 650 mg 07/23/19 02:48 08/03/19 06:[address] 650 mg Q4H PRN Administration Fever >100.5 Enoxaparin Sodium 40 mg 07/27/19 10:00 08/04/19 10:39 Lovenox SUB-Q 40 mg DAILY STEPHEN Administration Famotidine 20 mg 07/24/19 10:00 08/04/19 10:39 Pepcid IV 20 mg BID STEPHEN Administration Haloperidol Lactate 5 mg 07/31/19 18:35 08/01/19 16:27 Haldol IV 5 mg Q6H PRN Administration Agitation Valproate Sodium 500 mg/ 105 mls @ 100 mls/hr 07/24/19 10:00 08/04/19 10:37 Sodium Chloride IV 100 mls/hr Q12HR STEPHEN Administration Fluconazole 200 mls @ 100 mls/hr 07/26/19 15:00 08/04/19 10:38 Diflucan IV 100 mls/hr Q24HR STEPHEN Administration Protocol MEROPENEM/NS 1 GRAM/100 ML 1 gram in 100 mls @ 100 mls/hr 08/03/19 14:00 08/04/19 14:55 Merrem/Ns 1 Gram/100 Ml IV 100 mls/hr Q8HR STEPHEN Administration Protocol Amino Acids/Electrolytes/Dextrose 2,400 mls @ 100 mls/hr 08/03/19 20:00 08/03/19 20:00 Tpn Adult IV 08/04/19 19:59 100 mls/hr DAILY@[email or web address] STEPHEN Administration Protocol Vancomycin HCl 2,000 mg/ 540 mls @ 250 mls/hr 08/04/19 02:00 08/04/19 14:55 Sodium Chloride IV 250 mls/hr Q12H STEPHEN Administration Amino Acids/Electrolytes/Dextrose 2,400 mls @ 100 mls/hr 08/04/19 20:00 Tpn Adult IV 08/05/19 19:59 DAILY@1999 [facility] Protocol Metoprolol Tartrate 5 mg 08/02/19 14:00 08/04/19 08:35 Metoprolol IV 5 mg TID STEPHEN Administration Morphine Sulfate 2 mg 07/31/19 18:36 08/04/19 01:42 Morphine IV 2 mg Q4H PRN Administration Pain, Moderate (4-6) Ondansetron HCl 4 mg 07/21/19 22:25 07/22/19 01:07 Zofran IV 4 mg Q8H PRN Administration Nausea And Vomiting Nutrition/Malnutrition Assess - Dietary Evaluation Nutrition/Malnutrition Findings: Nutrition Notes Start: 07/23/19 10:09 Freq: Status: Active Protocol: Document 08/04/19 09:23 (Rec: 08/04/19 09:29 [id number]) Nutrition Notes Initial or Follow up Reassessment Current Diagnosis Acute Kidney Injury Other Pertinent Diagnosis Necrosis of transverse colon, down syndrome Current Diet NPO, TPN at 100mL/hr Labs/Tests Na 147 Cl 109.6 Glu 110 Cr: 0.6 Pertinent Medications Reviewed Height 5 ft 7 in Weight 141.9 kg [place] Body Weight (kg) 67.27 BMI 48.9 Subjective/Other Information CPN day 9. Percent of energy/protein needs met: 92%/100% Burn Absent Trauma Absent GI Symptoms Nausea,Vomiting,Constipation Minimum of two criteria No physical signs of malnutrition #1 Nutrition Diagnosis Inadequate oral intake Diagnosis Progress(for reassessment Continues documentation) Is patient on ventilator? No Is Patient Ambulatory and/or Out of Bed No REE-([facility]-confined to bed) 2859.468 Kcal/Kg value to use for calculation 14 Approximate Energy Requirements Using 1986 kcal/Kg Calculation Used for Recommendations Kcal/kg Additional Notes Pro needs 86-107g (0.8-1.0g/kg /day Adj BW 107.1kg) Fluid needs 1ml/kcal or per MD Nutrition Intervention Change Diet Order: CPN Nutrition Support: Continue CPN at 100mL/hr: MVI, 13% dextrose Kcal 1,500 Protein (gm) 120 Carbohydrates (gm) 300 Fat (gm) 0 Fluid (mL) 2,400 Fiber (gm) 0 Goal #1 Meet kcal/PRO as best as possible with CPN Anticipated Discharge Needs: Unable to identify at this time Follow-Up By: 08/05/19 Additional Comments Follow for labs in the AM: BMP , Mg, Phos
[2019-08-04] MEDS: ACETAMINOPHEN 650 MG RECT SUPP PR PRN (15:20)
--- NOTE | 2019-08-04 19:36 | Progress Note ---
Assessment and Plan 07/21/2019 blood culture: No growth 07/30/2019 urine culture: no growth A/P: 19-year-old male with Down syndrome admitted with severe constipation and fecal impaction: 1) Fever: ?pneumonia v/s intra-abdominal source. Persist in spite of abx. CXR with b/l opacities, likely combination of fluid, atelectasis but HAP also possible. Will switch abx. 2) Initial septic shock: resolved. intra-abdominal source. s/p ex-lap on 07/23/2019, findings of multiple distinct areas of necrosis on transverse colon. Rest of intestines were normal. Gen. Surg following (see #4). 3) Acute renal failure: resolved. Creatinine normal. Dose adjust abx accordingly. 4) Fecal impaction, colonic distention with necrosis and shock: s/p ex-lap on 07/23/2019, findings of multiple distinct areas of necrosis on transverse colon. rest of intestines were normal. Gen. Surg following, s/p washout on 07/26/2019 along with abdominal colectomy with ileosigmoid anastomosis, open abdomen. Underwent abdominal closure on 07/28/2019. Slow return of bowel function. 5) Acute respiratory failure: extubated 07/31/2019. CXR with b/l opacities, fluid overload v/s atelectasis v/s pneumonia. Recs: high fevers, continue Meropenem + Vancomycin recheck CBC in AM WBC improved, but fevers persist. If fevers continue tomorrow regardless of WBC would repeat CT. Yves Simons MD [facility] ([facility] M: [phone] O: [phone] F: [phone] Subjective Date of service: 08/04/19 Principal diagnosis: Respiratory Failure Interval history: Persistent fevers, normal white count today. Objective - Exam Narrative Exam: Physical Exam: Constitutional: Asleep, drowsy Head, Ears, Nose: Normocephalic, atraumatic. External ears, nose normal. NG tube + Eyes: Conjunctivae/corneas clear. No icterus. No ptosis. Neck: supple, no meningeal signs Cardiovascular: S1, S2 normal. Respiratory: scattered rhonchi bilaterally GI: soft, midline dressing +, drain +, bowel sounds hypo. Mcpherson + Musculoskeletal: No pedal edema, no cyanosis. Skin: No rash or abscess Hem/Lymphatic: No palpable cervical or supraclavicular nodes. No lymphangitis Psych: no agitation Neurological: awake, alert - Constitutional Vitals: Vital Signs Temp Pulse Resp BP Pulse Ox 99.1 F 66 21 150/91 100 08/04/19 16:00 08/04/19 18:30 08/04/19 18:30 08/04/19 18:30 08/04/19 18:30 Temperature -Last 24 Hours Temperature 99.1 F Temperature 101.5 F Temperature 102.3 F Temperature 98.2 F Temperature 99.8 F Temperature 97.9 F - Labs CBC & Chem 7: 08/04/19 05:40 08/04/19 05:40 Labs: Abnormal lab results 08/04/19 08/04/19 08/04/19 Range/Units 05:40 05:40 06:07 RBC 3.09 L (3.65-5.03) M/mm3 Hgb 9.8 L (11.8-15.2) gm/dl Hct 28.5 L (35.5-45.6) % Ross % (Auto) 9.0 H (0.0-7.3) % Ross # 1.0 H (0.0-0.8) K/mm3 Seg Neutrophils % 72.6 H (40.0-70.0) % Seg Neutrophils # 7.9 H (1.8-7.7) K/mm3 Sodium 147 H (137-145) mmol/L Chloride 109.6 H (98-107) mmol/L Creatinine 0.6 L (0.8-1.5) mg/dL Glucose 108 H (75-100) mg/dL POC Glucose 110 H (70-105) Calcium 8.0 L (8.4-10.2) mg/dL 08/04/19 08/04/19 Range/Units 12:29 16:49 RBC (3.65-5.03) M/mm3 Hgb (11.8-15.2) gm/dl Hct (35.5-45.6) % Ross % (Auto) (0.0-7.3) % Ross # (0.0-0.8) K/mm3 Seg Neutrophils % (40.0-70.0) % Seg Neutrophils # (1.8-7.7) K/mm3 Sodium (137-145) mmol/L Chloride (98-107) mmol/L Creatinine (0.8-1.5) mg/dL Glucose (75-100) mg/dL POC Glucose 110 H 110 H (70-105) Calcium (8.4-10.2) mg/dL
[2019-08-04] MEDS ORDERED: TOTAL PARENTERAL NUTRITION 2,400 ML IV SCH (20:00)
[2019-08-05] MEDS: ACETAMINOPHEN 650 MG RECT SUPP PR PRN (00:26)
[2019-08-05] MEDS: VANCOMYCIN 2,000 MG in SODIUM CHLORIDE 0.9% 500 ML 500 ML IV SCH ×2 (03:00→14:00)
[2019-08-05] MEDS: MORPHINE 2 MG/1 ML INJ IV PRN (03:04)
[2019-08-05 05:30] LABS: BUN/Creatinine Ratio 27; Blood Urea Nitrogen 16 mg/dL (9-20); Calcium 7.7 mg/dL (8.4-10.2); Hemolysis Index 1
[2019-08-05 05:33] LABS: Basophils # (Auto) 0.1 K/mm3 (0.0-0.1); Basophils % (Auto) 0.6 % (0.0-1.8); Eosinophils # (Auto) 0.1 K/mm3 (0.0-0.4); Eosinophils % (Auto) 0.8 % (0.0-4.3); Hematocrit 26.8 % (35.5-45.6); Hemoglobin 9.1 gm/dl (11.8-15.2); Lymphocytes # (Auto) 2.1 K/mm3 (1.2-5.4); Lymphocytes % (Auto) 21.3 % (13.4-35.0); Mean Corpuscular HGB Conc 34 % (32-34); Mean Corpuscular Volume 93 fl (84-94); Monocytes % (Auto) 10.7 % (0.0-7.3); Platelet Count 258 K/mm3 (140-440); Red Blood Count 2.87 M/mm3 (3.65-5.03); Red Cell Distribution Width 14.6 % (13.2-15.2)
[2019-08-05] MEDS: MEROPENEM/NS 1 GRAM/100 ML 1 GRAM/100 ML BAG IV SCH ×3 (06:44→21:28)
[2019-08-05] MEDS: VALPROATE SODIUM 500 MG in SODIUM CHLORIDE 0.9% 100 ML IV SCH ×2 (09:43→21:28)
[2019-08-05] MEDS: METOPROLOL TARTRATE 5 MG/5 ML INJ IV SCH ×3 (09:43→19:57)
[2019-08-05] MEDS: FAMOTIDINE 20 MG/2 ML INJ IV SCH ×2 (09:43→21:29)
[2019-08-05] MEDS: ENOXAPARIN 40 MG/0.4 ML INJ SUB-Q SCH (09:44)
[2019-08-05] MEDS: FLUCONAZOLE 400 MG 200 ML IV SCH (09:44)
--- NOTE | 2019-08-05 11:57 | Progress Note ---
Assessment and Plan Assessment and plan: Patient is 19 yo with Downs syndrome from jail. he initially presented with abdominal pain, nausea and vomiting. he was seen and examined in ED. CT Abd showed severe constipation. he was given Fleets enema and admitted. His BMP was WNL. By the next day, his Cr level trended up to 2.2 with hyperkalemia of 5.3. He subsequently desaturated and was transferred to the ICU. Acute resp failure with hypoxia s/p intubation, >96 hrs now extubated (07/31/19), on high flow oxygen [place] following cont aspiration precautions Ischemic Bowel s/p ex lap and resection s/p abdominal colectomy with ileocolostomy (07/26) s/p Open abdominal wound closure 07/28 on TPN surgery following Septic shock due to intra-abdominal source. s/p ex-lap on 07/23/2019, Per surgery findings of multiple distinct areas of necrosis on transverse colon. Rest of intestines were normal. due to persistent fever, IV antibiotics changed to vancomycin and meropenem in addition to IV diflucan ID following Fecal impaction: s/p ex-lap on 07/23/2019, findings of multiple distinct areas of necrosis on transverse colon. rest of intestines were normal. s/p washout on 07/26/2019 along with abdominal colectomy and ileosigmoid anastomosis with open abdomen. Underwent abdominal closure on 07/28/2019. Slow return of bowel function. Acute metabolic encephalopathy -will cont to monitor clinically [place] due to ATN resolved Nephrology following Cardiomyopathy with EF of 25-30% -Cardiology following: Ischemic work up when more stable Elevated d-dimer BLE venous doppler u/s to r/o DVT pending will consider V/Q scan if neg Lactic acidosis Secondary to ischemic Bowel Hyperkalemia -resolved Hypernatremia resolved Thrombocytopenia -resolved Sinus tachycardia -controlled on IV Lopressor AOCD -H/H stable, will monitor Downs syndrome cont supportive care code status: full Condition guarded and prognosis poor Critical time spent: 35 minutes History Interval history: Pt is non-verbal. No overnight issues reported Hospitalist Physical - Constitutional Vitals: Temp Pulse Resp BP Pulse Ox 100.6 F H 72 21 149/95 98 08/05/19 08:00 08/05/19 10:00 08/05/19 10:00 08/05/19 10:00 08/05/19 10:00 General appearance: Present: no acute distress, obese - EENT Eyes: Present: PERRL ENT: other (dry oral mucosa) - Neck Neck: Present: supple - Respiratory Respiratory effort: normal Respiratory: bilateral: rhonchi - Cardiovascular Rhythm: regular Heart Sounds: Present: S1 & S2 - Extremities Extremities: No edema - Abdominal General gastrointestinal: soft, non-tender, normal bowel sounds - Psychiatric Psychiatric: other (could not be assessed due AMS) - Neurologic Neurologic: other (pt unresponsive with sternal rub) Results - Labs CBC & Chem 7: 08/05/19 05:20 08/05/19 04:00 Labs: Laboratory Last Values WBC 9.8 K/mm3 (4.5-11.0) 08/05/19 05:20 RBC 2.87 M/mm3 (3.65-5.03) L 08/05/19 05:20 Hgb 9.1 gm/dl (11.8-15.2) L 08/05/19 05:20 Hct 26.8 % (35.5-45.6) L 08/05/19 05:20 MCV 93 fl (84-94) 08/05/19 05:20 MCH 32 pg (28-32) 08/05/19 05:20 MCHC 34 % (32-34) 08/05/19 05:20 RDW 14.6 % (13.2-15.2) 08/05/19 05:20 Plt Count 258 K/mm3 (140-440) 08/05/19 05:20 Lymph % (Auto) 21.3 % (13.4-35.0) 08/05/19 05:20 [place] % (Auto) 10.7 % (0.0-7.3) H 08/05/19 05:20 Eos % (Auto) 0.8 % (0.0-4.3) 08/05/19 05:20 Baso % (Auto) 0.6 % (0.0-1.8) 08/05/19 05:20 Lymph # 2.1 K/mm3 (1.2-5.4) 08/05/19 05:20 [place] # 1.0 K/mm3 (0.0-0.8) H 08/05/19 05:20 Eos # 0.1 K/mm3 (0.0-0.4) 08/05/19 05:20 Baso # 0.1 K/mm3 (0.0-0.1) 08/05/19 05:20 Add Manual Diff Complete 07/31/19 08:10 Total Counted 100 07/31/19 08:10 Seg Neutrophils % 66.6 % (40.0-70.0) 08/05/19 05:20 Seg Neuts % (Manual) 81.0 % (40.0-70.0) H 07/31/19 08:10 Band Neutrophils % 0 % 07/31/19 08:10 Lymphocytes % (Manual) 10.0 % (13.4-35.0) L 07/31/19 08:10 Reactive Lymphs % (Man) 0 % 07/31/19 08:10 Monocytes % (Manual) 2.0 % (0.0-7.3) 07/31/19 08:10 Eosinophils % (Manual) 0 % (0.0-4.3) 07/31/19 08:10 Basophils % (Manual) 0 % (0.0-1.8) 07/31/19 08:10 Metamyelocytes % 7.0 % 07/31/19 08:10 Myelocytes % 0 % 07/31/19 08:10 Promyelocytes % 0 % 07/31/19 08:10 Blast Cells % 0 % 07/31/19 08:10 Nucleated RBC % Not Reportable 07/31/19 08:10 Seg Neutrophils # 6.5 K/mm3 (1.8-7.7) 08/05/19 05:20 Seg Neutrophils # Man 12.5 K/mm3 (1.8-7.7) H 07/31/19 08:10 Band Neutrophils # 0.0 K/mm3 07/31/19 08:10 Lymphocytes # (Manual) 1.5 K/mm3 (1.2-5.4) 07/31/19 08:10 Abs React Lymphs (Man) 0.0 K/mm3 07/31/19 08:10 Monocytes # (Manual) 0.3 K/mm3 (0.0-0.8) 07/31/19 08:10 Eosinophils # (Manual) 0.0 K/mm3 (0.0-0.4) 07/31/19 08:10 Basophils # (Manual) 0.0 K/mm3 (0.0-0.1) 07/31/19 08:10 Metamyelocytes # 1.1 K/mm3 07/31/19 08:10 Myelocytes # 0.0 K/mm3 07/31/19 08:10 Promyelocytes # 0.0 K/mm3 07/31/19 08:10 Blast Cells # 0.0 K/mm3 07/31/19 08:10 WBC Morphology Not Reportable 07/31/19 08:10 Hypersegmented Neuts Not Reportable 07/31/19 08:10 Hyposegmented Neuts Not Reportable 07/31/19 08:10 Hypogranular Neuts Not Reportable 07/31/19 08:10 Smudge Cells Not Reportable 07/31/19 08:10 Toxic Granulation Not Reportable 07/31/19 08:10 Toxic Vacuolation Not Reportable 07/31/19 08:10 Dohle Bodies Not Reportable 07/31/19 08:10 Pelger-Huet Anomaly Not Reportable 07/31/19 08:10 Alea Rods Not Reportable 07/31/19 08:10 Platelet Estimate Consistent w auto 07/31/19 08:10 Clumped Platelets Not Reportable 07/31/19 08:10 Plt Clumps, EDTA Not Reportable 07/31/19 08:10 Large Platelets Not Reportable 07/31/19 08:10 Giant Platelets Not Reportable 07/31/19 08:10 Platelet Satelliting Not Reportable 07/31/19 08:10 Plt Morphology Comment Not Reportable 07/31/19 08:10 RBC Morphology Not Reportable 07/31/19 08:10 Dimorphic RBCs Not Reportable 07/31/19 08:10 Polychromasia Not Reportable 07/31/19 08:10 Hypochromasia Not Reportable 07/31/19 08:10 Poikilocytosis Not Reportable 07/31/19 08:10 Anisocytosis Few 07/31/19 08:10 Microcytosis Not Reportable 07/31/19 08:10 Macrocytosis Not Reportable 07/31/19 08:10 Spherocytes Not Reportable 07/31/19 08:10 Pappenheimer Bodies Not Reportable 07/31/19 08:10 Sickle Cells Not Reportable 07/31/19 08:10 Target Cells Not Reportable 07/31/19 08:10 Tear Drop Cells Not Reportable 07/31/19 08:10 Ovalocytes Not Reportable 07/31/19 08:10 Helmet Cells Not Reportable 07/31/19 08:10 [place] Bodies Not Reportable 07/31/19 08:10 [place] Rings Not Reportable 07/31/19 08:10 Kaylyn Cells Not Reportable 07/31/19 08:10 Bite Cells Not Reportable 07/31/19 08:10 Crenated Cell Not Reportable 07/31/19 08:10 Elliptocytes Not Reportable 07/31/19 08:10 Acanthocytes (Spur) Not Reportable 07/31/19 08:10 Rouleaux Not Reportable 07/31/19 08:10 Hemoglobin C Crystals Not Reportable 07/31/19 08:10 Schistocytes Not Reportable 07/31/19 08:10 Malaria parasites Not Reportable 07/31/19 08:10 Emanuel Bodies Not Reportable 07/31/19 08:10 Hem Pathologist Commnt No 07/31/19 08:10 D-Dimer 886.89 ng/mlDDU (0-234) H 07/22/19 21:45 Heparin Anti-Xa, Unfract Negative (Negative) 07/24/19 09:18 POC ABG pH 7.344 (7.35-7.45) L 07/30/19 05:23 ABG pH 7.406 pH Units (7.350-7.450) 07/31/19 04:42 POC ABG pCO2 48.8 (35-45) H 07/30/19 05:23 ABG pCO2 42.4 mm Hg 07/31/19 04:42 POC ABG pO2 77 (80-105) L 07/30/19 05:23 ABG pO2 85.1 mm Hg (80.0-90.0) 07/31/19 04:42 POC ABG HCO3 26.6 (22-26 mml/L) 07/30/19 05:23 ABG HCO3 26.0 mmol/L (20.0-26.0) 07/31/19 04:42 POC ABG Total CO2 28 (23-27mmol/L) 07/30/19 05:23 POC ABG O2 Sat 94 07/30/19 05:23 ABG O2 Saturation 96.7 % (95.0-99.0) 07/31/19 04:42 ABG O2 Content 13.6 (0.0-44) 07/31/19 04:42 POC ABG Base Excess 1 ((-2) - (+3)mmol/L) 07/30/19 05:23 ABG Base Excess 1.2 mmol/L (-2.0-3.0) 07/31/19 04:42 ABG Hemoglobin 10.1 gm/dl (14.0-18.0) L 07/31/19 04:42 ABG Carboxyhemoglobin 1.5 % (0.0-5.0) 07/31/19 04:42 ABG Methemoglobin 0.4 % (0.0-1.5) 07/31/19 04:42 Oxyhemoglobin 94.8 % (95.0-99.0) L 07/31/19 04:42 FiO2 40 % 07/31/19 04:42 Sodium 143 mmol/L (137-145) 08/05/19 04:00 Potassium 3.7 mmol/L (3.6-5.0) 08/05/19 04:00 Chloride 107.0 mmol/L (98-107) 08/05/19 04:00 Carbon Dioxide 28 mmol/L (22-30) 08/05/19 04:00 Anion Gap 12 mmol/L 08/05/19 04:00 BUN 16 mg/dL (9-20) 08/05/19 04:00 Creatinine 0.6 mg/dL (0.8-1.5) L 08/05/19 04:00 Estimated GFR > 60 ml/min 08/05/19 04:00 BUN/Creatinine Ratio 27 % 08/05/19 04:00 Glucose 86 mg/dL (75-100) 08/05/19 04:00 POC Glucose 102 (70-105) 08/05/19 06:25 Lactic Acid 1.10 mmol/L (0.7-2.0) 07/25/19 09:16 Calcium 7.7 mg/dL (8.4-10.2) L 08/05/19 04:00 Phosphorus 3.50 mg/dL (2.5-4.5) 08/05/19 04:00 Magnesium 1.90 mg/dL (1.7-2.3) 08/05/19 04:00 Total Bilirubin 0.80 mg/dL (0.1-1.2) 07/28/19 04:12 Direct Bilirubin 0.2 mg/dL (0-0.2) 07/21/19 19:02 Indirect Bilirubin 0.4 mg/dL 07/21/19 19:02 AST 20 units/L (5-40) 07/28/19 04:12 ALT 19 units/L (7-56) 07/28/19 04:12 Alkaline Phosphatase 43 units/L (35-129) 07/28/19 04:12 Ammonia 39.0 umol/L (25-60) 07/23/19 02:50 Troponin T < 0.010 ng/mL (0.00-0.029) 07/22/19 15:33 NT-Pro-B Natriuret Pep 5407 pg/mL (0-450) H 07/22/19 21:45 Total Protein 4.2 g/dL (6.3-8.2) L D 07/28/19 04:12 Albumin 2.0 g/dL (3.9-5) L 07/28/19 04:12 Albumin/Globulin Ratio 0.9 % 07/28/19 04:12 Triglycerides 136 mg/dL (2-149) 07/30/19 04:46 Lipase 10 units/L (13-60) L 07/21/19 19:02 Serotonin Release Assay See scanned result 07/24/19 09:18 TSH 0.888 mlU/mL (0.270-4.200) 07/23/19 13:06 Free T4 1.04 ng/dL (0.76-1.46) 07/23/19 13:06 Urine Color Yellow (Yellow) 08/01/19 16:30 Urine Turbidity Clear (Clear) 08/01/19 16:30 Urine pH 6.0 (5.0-7.0) 08/01/19 16:30 Ur Specific [place] 1.015 (1.003-1.030) 08/01/19 16:30 Urine Protein <15 mg/dl mg/dL (Negative) 08/01/19 16:30 Urine Glucose (UA) Neg mg/dL (Negative) 08/01/19 16:30 Urine Ketones Neg mg/dL (Negative) 08/01/19 16:30 Urine Blood Neg (Negative) 08/01/19 16:30 Urine Nitrite Neg (Negative) 08/01/19 16:30 Urine Bilirubin Neg (Negative) 08/01/19 16:30 Urine Ictotest Negative (Negative) 07/21/19 21:36 Urine Urobilinogen < 2.0 mg/dL (<2.0) 08/01/19 16:30 Ur Leukocyte Esterase Tr (Negative) 08/01/19 16:30 Urine WBC (Auto) 6.0 /HPF (0.0-6.0) 08/01/19 16:30 Urine RBC (Auto) 5.0 /HPF (0.0-6.0) 08/01/19 16:30 U Epithel Cells (Auto) < 1.0 /HPF (0-13.0) 08/01/19 16:30 Urine Mucus Few /HPF 08/01/19 16:30 Vancomycin Trough 11.3 ug/mL (5.0-20.0) 08/05/19 01:00 Heparin-induced Plt Ab Negative (Negative) 07/24/19 09:18 UF Heparin High Dose 0 % Release 07/24/19 09:18 GIULIANA UFH Low Dose 0.1 1 % Release 07/24/19 09:18 GIULIANA UFH Low Dose 0.5 0 % Release 07/24/19 09:18 Hepatitis A IgM Ab Non-reactive (NonReactive) 07/23/19 13:06 Hep Bs Antigen Non-reactive (Negative) 07/23/19 13:06 Hep B Core IgM Ab Non-reactive (NonReactive) 07/23/19 13:06 Hepatitis C Antibody Non-reactive (NonReactive) 07/23/19 13:06 Blood Type A POSITIVE 07/28/19 04:12 Antibody Screen Negative 07/28/19 04:12 Active Medications - Current Medications Current Medications: Generic Name Dose Route Start Last Admin Trade Name Freq PRN Reason Stop Dose Admin Acetaminophen 650 mg 07/23/19 02:48 08/05/19 00:26 Tylenol MD 650 mg Q4H PRN Administration Fever >100.5 Enoxaparin Sodium 40 mg 07/27/19 10:00 08/05/19 09:44 Lovenox SUB-Q 40 mg DAILY STEPHEN Administration Famotidine 20 mg 07/24/19 10:00 08/05/19 09:43 Pepcid IV 20 mg BID STEPHEN Administration Haloperidol Lactate 5 mg 07/31/19 18:35 08/01/19 16:27 Haldol IV 5 mg Q6H PRN Administration Agitation Valproate Sodium 500 mg/ 105 mls @ 100 mls/hr 07/24/19 10:00 08/05/19 09:43 Sodium Chloride IV 100 mls/hr Q12HR STEPHEN Administration Fluconazole 200 mls @ 100 mls/hr 07/26/19 15:00 08/05/19 09:44 Diflucan IV 100 mls/hr Q24HR STEPHEN Administration Protocol MEROPENEM/NS 1 GRAM/100 ML 1 gram in 100 mls @ 100 mls/hr 08/03/19 14:00 08/05/19 07:45 Merrem/Ns 1 Gram/100 Ml IV Infused Q8HR STEPHEN Infusion Protocol Vancomycin HCl 2,000 mg/ 540 mls @ 250 mls/hr 08/04/19 02:00 08/05/19 05:15 Sodium Chloride IV Infused Q12H STEPHEN Infusion Amino Acids/Electrolytes/Dextrose 2,400 mls @ 100 mls/hr 08/04/19 20:00 08/04/19 20:54 Tpn Adult IV 08/05/19 19:59 100 mls/hr DAILY@2000 STEPHEN Administration Protocol Metoprolol Tartrate 5 mg 08/02/19 14:00 08/05/19 09:43 Metoprolol IV 5 mg TID STEPHEN Administration Morphine Sulfate 2 mg 07/31/19 18:36 08/05/19 03:04 Morphine IV 2 mg Q4H PRN Administration Pain, Moderate (4-6) Ondansetron HCl 4 mg 07/21/19 22:25 07/22/19 01:07 Zofran IV 4 mg Q8H PRN Administration Nausea And Vomiting Nutrition/Malnutrition Assess - Dietary Evaluation Nutrition/Malnutrition Findings: Nutrition Notes Start: 07/23/19 10:09 Freq: Status: Active Protocol: Document 08/05/19 10:40 LP (Rec: 08/05/19 10:44 LP [id number]) Nutrition Notes Initial or Follow up Reassessment Current Diagnosis Acute Kidney Injury Other Pertinent Diagnosis Necrosis of transverse colon, down syndrome Current Diet TPN at 100mL/hr Labs/Tests Reviewed Pertinent Medications Reviewed Height 5 ft 7 in Weight 143.4 kg [place] Body Weight (kg) 67.27 BMI 49.5 Subjective/Other Information CPN day 10.NGT to LIS and URMILA drain continues. Percent of energy/protein needs met: 75%/89% Burn Absent Trauma Absent Minimum of two criteria No physical signs of malnutrition #1 Nutrition Diagnosis Inadequate oral intake Diagnosis Progress(for reassessment Continues documentation) Is patient on ventilator? No Is Patient Ambulatory and/or Out of Bed No REE-([facility]-confined to bed) 2877.444 Kcal/Kg value to use for calculation 14 Approximate Energy Requirements Using 2007 kcal/Kg Calculation Used for Recommendations Kcal/kg Additional Notes Pro needs 86-107g (0.8-1.0g/kg /day Adj BW 107.1kg) Fluid needs 1ml/kcal or per MD Nutrition Intervention Change Diet Order: CPN Nutrition Support: Continue CPN at 100mL/hr: MVI, 14% dextrose Osmolality: 1287 Kcal 1,670 Protein (gm) 120 Carbohydrates (gm) 350 Fat (gm) 0 Fluid (mL) 2,400 Fiber (gm) 0 Goal #1 Meet kcal/PRO as best as possible with CPN Anticipated Discharge Needs: Unable to identify at this time Follow-Up By: 08/06/19 Additional Comments Labs in AM: MILLY
--- NOTE | 2019-08-05 12:56 | Progress Note ---
Assessment and Plan 19 y/o male with acute respiratory failure s/p exploratory lap x 2 now on TPN, continuous NG suction and continued sedation. 1. Follow up ID recs. Spoke with surgery. They agree with CT. Will give IV and oral contrast. 2. Pending CT scan, and NG output, may try trickle feeds as early as tomorrow. 3. Continue TPN for now. 4. May move to step down but will wait on CT. Subjective Date of service: 08/05/19 Principal diagnosis: Respiratory Failure Interval history: No acute events. Spiked temperature after I saw the patient yesterday. Reviewed ID note and they are asking for a CT regardless of improvement in white count. NG output is improving and color is changing. Objective Vital Signs - 12hr 08/05/19 08/05/19 08/05/19 01:00 01:30 02:00 Temperature Pulse Rate 89 85 78 Pulse Rate [ From Monitor] Respiratory 21 26 H 29 H Rate Blood Pressure 151/89 144/90 144/87 O2 Sat by Pulse 98 95 93 Oximetry 08/05/19 08/05/19 08/05/19 02:30 03:00 03:30 Temperature Pulse Rate 74 85 78 Pulse Rate [ From Monitor] Respiratory 22 25 H 24 Rate Blood Pressure 155/95 150/85 142/92 O2 Sat by Pulse 99 100 99 Oximetry 08/05/19 08/05/19 08/05/19 04:00 04:30 05:00 Temperature 99.1 F Pulse Rate 80 89 82 Pulse Rate [ 85 From Monitor] Respiratory 24 24 24 Rate Blood Pressure 145/91 145/84 138/80 O2 Sat by Pulse 97 98 100 Oximetry 08/05/19 08/05/19 08/05/19 05:30 06:00 06:30 Temperature Pulse Rate 76 74 78 Pulse Rate [ From Monitor] Respiratory 22 22 19 Rate Blood Pressure 140/82 140/77 132/84 O2 Sat by Pulse 98 99 99 Oximetry 08/05/19 08/05/19 08/05/19 07:00 07:30 08:00 Temperature 100.6 F H Pulse Rate 77 76 71 Pulse Rate [ 78 From Monitor] Respiratory 20 25 H 16 Rate Blood Pressure 145/91 142/104 139/85 O2 Sat by Pulse 98 99 100 Oximetry 08/05/19 08/05/19 08/05/19 08:30 09:00 09:30 Temperature Pulse Rate 75 68 67 Pulse Rate [ From Monitor] Respiratory 27 H 22 25 H Rate Blood Pressure 145/88 144/83 143/86 O2 Sat by Pulse 97 98 96 Oximetry 08/05/19 08/05/19 09:43 10:00 Temperature Pulse Rate 71 72 Pulse Rate [ From Monitor] Respiratory 21 Rate Blood Pressure 143/86 149/95 O2 Sat by Pulse 98 Oximetry Constitutional: no acute distress Eyes: non-icteric ENT: oropharynx moist Neck: supple Effort: normal Ascultation: Bilateral: diminished breath sounds (due to obesity) Cardiovascular: regular rate and rhythm Gastrointestinal: normoactive bowel sounds, soft, other (morbidly obese abd) Integumentary: normal Extremities: no cyanosis, no edema, pink and warm Neurologic: normal mental status, non-focal exam, pupils equal and round, other (on vent) Psychiatric: mood appropriate, affect normal CBC and BMP: 08/05/19 05:20 08/05/19 04:00 ABG, PT/INR, D-dimer: ABG POC ABG pH 7.344 (7.35-7.45) L 07/30/19 05:23 ABG pH 7.406 pH Units (7.350-7.450) 07/31/19 04:42 POC ABG pCO2 48.8 (35-45) H 07/30/19 05:23 ABG pCO2 42.4 mm Hg 07/31/19 04:42 POC ABG pO2 77 (80-105) L 07/30/19 05:23 ABG pO2 85.1 mm Hg (80.0-90.0) 07/31/19 04:42 POC ABG HCO3 26.6 (22-26 mml/L) 07/30/19 05:23 POC ABG Total CO2 28 (23-27mmol/L) 07/30/19 05:23 POC ABG O2 Sat 94 07/30/19 05:23 ABG O2 Saturation 96.7 % (95.0-99.0) 07/31/19 04:42 PT/INR, D-dimer D-Dimer 886.89 ng/mlDDU (0-234) H 07/22/19 21:45 Abnormal lab findings: Abnormal Labs 07/21/19 07/21/19 07/22/19 19:02 19:02 10:50 WBC 12.1 H 13.7 H RBC 5.56 H Hgb 17.1 H Hct 52.9 H D MCV 95 H 95 H RDW Plt Count 130 L 137 L Lymph % (Auto) 7.2 L [place] % (Auto) 9.6 H Lymph # 0.9 L [place] # 1.2 H Seg Neutrophils % 82.8 H Seg Neuts % (Manual) Lymphocytes % (Manual) Monocytes % (Manual) Nucleated RBC % Seg Neutrophils # 10.0 H Seg Neutrophils # Man Lymphocytes # (Manual) Monocytes # (Manual) D-Dimer POC ABG pH ABG pH POC ABG pCO2 POC ABG pO2 ABG pO2 ABG O2 Saturation ABG Hemoglobin Oxyhemoglobin Sodium 136 L Potassium Chloride 95.9 L Carbon Dioxide BUN Creatinine Glucose 163 H POC Glucose Lactic Acid Calcium Phosphorus Magnesium Total Bilirubin AST NT-Pro-B Natriuret Pep Total Protein Albumin Lipase 10 L 07/22/19 07/22/19 07/22/19 10:50 15:33 15:33 WBC 13.1 H RBC 5.10 H Hgb 15.9 H Hct 49.0 H MCV 96 H RDW Plt Count 127 L Lymph % (Auto) [place] % (Auto) Lymph # [place] # Seg Neutrophils % Seg Neuts % (Manual) Lymphocytes % (Manual) Monocytes % (Manual) Nucleated RBC % Seg Neutrophils # Seg Neutrophils # Man Lymphocytes # (Manual) Monocytes # (Manual) D-Dimer POC ABG pH ABG pH POC ABG pCO2 POC ABG pO2 ABG pO2 ABG O2 Saturation ABG Hemoglobin Oxyhemoglobin Sodium 136 L Potassium 5.3 H D 6.0 H Chloride 96.7 L Carbon Dioxide 17 L BUN 22 H 29 H Creatinine 2.0 H D 2.2 H Glucose 129 H 121 H POC Glucose Lactic Acid Calcium 8.2 L Phosphorus 4.70 H Magnesium 3.10 H Total Bilirubin AST NT-Pro-B Natriuret Pep Total Protein Albumin Lipase 07/22/19 07/22/19 07/22/19 18:19 18:42 21:45 WBC RBC Hgb Hct MCV RDW Plt Count Lymph % (Auto) [place] % (Auto) Lymph # [place] # Seg Neutrophils % Seg Neuts % (Manual) Lymphocytes % (Manual) Monocytes % (Manual) Nucleated RBC % Seg Neutrophils # Seg Neutrophils # Man Lymphocytes # (Manual) Monocytes # (Manual) D-Dimer 886.89 H POC ABG pH 7.197 L ABG pH POC ABG pCO2 45.2 H POC ABG pO2 ABG pO2 ABG O2 Saturation ABG Hemoglobin Oxyhemoglobin Sodium Potassium Chloride Carbon Dioxide BUN Creatinine Glucose POC Glucose 107 H Lactic Acid Calcium Phosphorus Magnesium Total Bilirubin AST NT-Pro-B Natriuret Pep Total Protein Albumin Lipase 07/22/19 07/22/19 07/22/19 21:45 21:45 21:45 WBC RBC Hgb Hct MCV RDW Plt Count Lymph % (Auto) [place] % (Auto) Lymph # [place] # Seg Neutrophils % Seg Neuts % (Manual) Lymphocytes % (Manual) Monocytes % (Manual) Nucleated RBC % Seg Neutrophils # Seg Neutrophils # Man Lymphocytes # (Manual) Monocytes # (Manual) D-Dimer POC ABG pH ABG pH POC ABG pCO2 POC ABG pO2 ABG pO2 ABG O2 Saturation ABG Hemoglobin Oxyhemoglobin Sodium 136 L Potassium 5.6 H Chloride Carbon Dioxide 20 L BUN 38 H Creatinine 2.6 H Glucose 63 L POC Glucose Lactic Acid 3.10 H* Calcium 8.2 L Phosphorus Magnesium Total Bilirubin AST NT-Pro-B Natriuret Pep 5407 H Total Protein Albumin Lipase 07/23/19 07/23/19 07/23/19 02:11 02:50 02:50 WBC 15.0 H RBC Hgb Hct MCV 95 H RDW Plt Count 118 L Lymph % (Auto) [place] % (Auto) Lymph # [place] # Seg Neutrophils % Seg Neuts % (Manual) Lymphocytes % (Manual) 9.0 L Monocytes % (Manual) 17.0 H Nucleated RBC % Seg Neutrophils # Seg Neutrophils # Man Lymphocytes # (Manual) Monocytes # (Manual) 2.6 H D-Dimer POC ABG pH ABG pH POC ABG pCO2 POC ABG pO2 ABG pO2 ABG O2 Saturation ABG Hemoglobin Oxyhemoglobin Sodium Potassium Chloride Carbon Dioxide BUN Creatinine Glucose POC Glucose 69 L Lactic Acid 3.30 H* Calcium Phosphorus Magnesium Total Bilirubin AST NT-Pro-B Natriuret Pep Total Protein Albumin Lipase 07/23/19 07/23/19 07/23/19 02:50 03:09 04:30 WBC RBC Hgb Hct MCV RDW Plt Count Lymph % (Auto) [place] % (Auto) Lymph # [place] # Seg Neutrophils % Seg Neuts % (Manual) Lymphocytes % (Manual) Monocytes % (Manual) Nucleated RBC % Seg Neutrophils # Seg Neutrophils # Man Lymphocytes # (Manual) Monocytes # (Manual) D-Dimer POC ABG pH 7.296 L ABG pH POC ABG pCO2 POC ABG pO2 66 L ABG pO2 ABG O2 Saturation ABG Hemoglobin Oxyhemoglobin Sodium 134 L Potassium 7.5 H* D Chloride Carbon Dioxide 21 L BUN 47 H Creatinine 2.7 H Glucose POC Glucose Lactic Acid 3.50 H* Calcium 7.6 L Phosphorus Magnesium 2.90 H Total Bilirubin AST 60 H NT-Pro-B Natriuret Pep Total Protein 5.5 L D Albumin 2.5 L Lipase 07/23/19 07/23/19 07/23/19 07:30 09:03 09:03 WBC RBC Hgb Hct MCV RDW Plt Count Lymph % (Auto) [place] % (Auto) Lymph # [place] # Seg Neutrophils % Seg Neuts % (Manual) Lymphocytes % (Manual) Monocytes % (Manual) Nucleated RBC % Seg Neutrophils # Seg Neutrophils # Man Lymphocytes # (Manual) Monocytes # (Manual) D-Dimer POC ABG pH ABG pH POC ABG pCO2 POC ABG pO2 ABG pO2 ABG O2 Saturation ABG Hemoglobin Oxyhemoglobin Sodium 136 L Potassium 6.6 H* 7.1 H* Chloride Carbon Dioxide 20 L BUN 50 H 49 H Creatinine 2.6 H 2.4 H Glucose 67 L POC Glucose Lactic Acid 4.10 H* Calcium 7.6 L 7.7 L Phosphorus Magnesium Total Bilirubin AST NT-Pro-B Natriuret Pep Total Protein Albumin Lipase 07/23/19 07/23/19 07/23/19 10:52 13:13 14:48 WBC RBC Hgb Hct MCV RDW Plt Count Lymph % (Auto) [place] % (Auto) Lymph # [place] # Seg Neutrophils % Seg Neuts % (Manual) Lymphocytes % (Manual) Monocytes % (Manual) Nucleated RBC % Seg Neutrophils # Seg Neutrophils # Man Lymphocytes # (Manual) Monocytes # (Manual) D-Dimer POC ABG pH 7.280 L ABG pH POC ABG pCO2 48.7 H POC ABG pO2 ABG pO2 ABG O2 Saturation ABG Hemoglobin Oxyhemoglobin Sodium Potassium Chloride Carbon Dioxide BUN Creatinine Glucose POC Glucose 123 H Lactic Acid 4.10 H* Calcium Phosphorus Magnesium Total Bilirubin AST NT-Pro-B Natriuret Pep Total Protein Albumin Lipase 07/23/19 07/23/19 07/23/19 15:56 17:35 Unknown WBC RBC Hgb Hct MCV RDW Plt Count Lymph % (Auto) [place] % (Auto) Lymph # [place] # Seg Neutrophils % Seg Neuts % (Manual) Lymphocytes % (Manual) Monocytes % (Manual) Nucleated RBC % Seg Neutrophils # Seg Neutrophils # Man Lymphocytes # (Manual) Monocytes # (Manual) D-Dimer POC ABG pH ABG pH POC ABG pCO2 POC ABG pO2 ABG pO2 ABG O2 Saturation ABG Hemoglobin Oxyhemoglobin Sodium Potassium Chloride Carbon Dioxide BUN Creatinine Glucose POC Glucose Lactic Acid 3.00 H* 4.10 H* 4.90 H* Calcium Phosphorus Magnesium Total Bilirubin AST NT-Pro-B Natriuret Pep Total Protein Albumin Lipase 07/23/19 07/24/19 07/24/19 Unknown 00:05 00:40 WBC RBC Hgb Hct MCV RDW Plt Count Lymph % (Auto) [place] % (Auto) Lymph # [place] # Seg Neutrophils % Seg Neuts % (Manual) Lymphocytes % (Manual) Monocytes % (Manual) Nucleated RBC % Seg Neutrophils # Seg Neutrophils # Man Lymphocytes # (Manual) Monocytes # (Manual) D-Dimer POC ABG pH ABG pH POC ABG pCO2 POC ABG pO2 ABG pO2 151.3 H ABG O2 Saturation ABG Hemoglobin Oxyhemoglobin Sodium Potassium 5.6 H D Chloride Carbon Dioxide BUN 29 H Creatinine Glucose 128 H POC Glucose 118 H Lactic Acid Calcium 7.4 L Phosphorus Magnesium Total Bilirubin AST NT-Pro-B Natriuret Pep Total Protein Albumin Lipase 07/24/19 07/24/19 07/24/19 04:00 05:37 05:37 WBC RBC Hgb Hct MCV RDW Plt Count 89 L Lymph % (Auto) [place] % (Auto) Lymph # [place] # Seg Neutrophils % Seg Neuts % (Manual) Lymphocytes % (Manual) 5.0 L Monocytes % (Manual) Nucleated RBC % Seg Neutrophils # Seg Neutrophils # Man Lymphocytes # (Manual) 0.5 L Monocytes # (Manual) D-Dimer POC ABG pH ABG pH POC ABG pCO2 POC ABG pO2 ABG pO2 ABG O2 Saturation ABG Hemoglobin Oxyhemoglobin Sodium Potassium Chloride Carbon Dioxide BUN 29 H Creatinine Glucose 120 H POC Glucose 123 H Lactic Acid Calcium 7.4 L Phosphorus 2.30 L D Magnesium Total Bilirubin 1.40 H AST 107 H NT-Pro-B Natriuret Pep Total Protein 5.3 L Albumin 2.5 L Lipase 07/24/19 07/24/19 07/24/19 05:37 10:18 18:44 WBC RBC Hgb Hct MCV RDW Plt Count Lymph % (Auto) [place] % (Auto) Lymph # [place] # Seg Neutrophils % Seg Neuts % (Manual) Lymphocytes % (Manual) Monocytes % (Manual) Nucleated RBC % Seg Neutrophils # Seg Neutrophils # Man Lymphocytes # (Manual) Monocytes # (Manual) D-Dimer POC ABG pH 7.464 H ABG pH POC ABG pCO2 POC ABG pO2 125 H ABG pO2 ABG O2 Saturation ABG Hemoglobin Oxyhemoglobin Sodium Potassium Chloride Carbon Dioxide BUN Creatinine Glucose POC Glucose 130 H Lactic Acid 3.90 H* Calcium Phosphorus Magnesium Total Bilirubin AST NT-Pro-B Natriuret Pep Total Protein Albumin Lipase 07/24/19 07/25/19 07/25/19 18:52 04:45 04:45 WBC RBC Hgb Hct MCV RDW Plt Count 91 L Lymph % (Auto) [place] % (Auto) Lymph # [place] # Seg Neutrophils % Seg Neuts % (Manual) Lymphocytes % (Manual) Monocytes % (Manual) Nucleated RBC % Seg Neutrophils # Seg Neutrophils # Man Lymphocytes # (Manual) Monocytes # (Manual) D-Dimer POC ABG pH ABG pH POC ABG pCO2 POC ABG pO2 ABG pO2 ABG O2 Saturation ABG Hemoglobin Oxyhemoglobin Sodium Potassium Chloride Carbon Dioxide BUN 24 H Creatinine Glucose POC Glucose 107 H Lactic Acid Calcium 7.9 L Phosphorus 2.20 L Magnesium Total Bilirubin AST NT-Pro-B Natriuret Pep Total Protein Albumin Lipase 07/25/19 07/26/19 07/26/19 05:32 02:20 05:00 WBC RBC Hgb Hct MCV RDW Plt Count Lymph % (Auto) [place] % (Auto) Lymph # [place] # Seg Neutrophils % Seg Neuts % (Manual) Lymphocytes % (Manual) Monocytes % (Manual) Nucleated RBC % Seg Neutrophils # Seg Neutrophils # Man Lymphocytes # (Manual) Monocytes # (Manual) D-Dimer POC ABG pH ABG pH POC ABG pCO2 POC ABG pO2 ABG pO2 70.6 L ABG O2 Saturation 94.7 L ABG Hemoglobin 12.0 L Oxyhemoglobin 92.8 L Sodium 148 H Potassium Chloride 112.1 H Carbon Dioxide BUN Creatinine 0.6 L Glucose 71 L POC Glucose 62 L Lactic Acid Calcium 8.3 L Phosphorus Magnesium Total Bilirubin AST NT-Pro-B Natriuret Pep Total Protein Albumin Lipase 07/26/19 07/26/19 07/27/19 05:45 05:47 05:00 WBC 13.1 H RBC Hgb Hct MCV RDW 15.8 H Plt Count 113 L Lymph % (Auto) [place] % (Auto) Lymph # [place] # Seg Neutrophils % Seg Neuts % (Manual) Lymphocytes % (Manual) Monocytes % (Manual) 16.0 H Nucleated RBC % 2.0 H Seg Neutrophils # Seg Neutrophils # Man 8.1 H Lymphocytes # (Manual) Monocytes # (Manual) 2.1 H D-Dimer POC ABG pH ABG pH 7.309 L POC ABG pCO2 POC ABG pO2 ABG pO2 73.3 L ABG O2 Saturation 93.9 L ABG Hemoglobin 12.4 L Oxyhemoglobin 92.1 L Sodium Potassium Chloride Carbon Dioxide BUN Creatinine Glucose POC Glucose 68 L Lactic Acid Calcium Phosphorus Magnesium Total Bilirubin AST NT-Pro-B Natriuret Pep Total Protein Albumin Lipase 07/27/19 07/27/19 07/27/19 05:00 06:10 09:49 WBC RBC Hgb Hct MCV RDW Plt Count Lymph % (Auto) [place] % (Auto) Lymph # [place] # Seg Neutrophils % Seg Neuts % (Manual) Lymphocytes % (Manual) Monocytes % (Manual) Nucleated RBC % Seg Neutrophils # Seg Neutrophils # Man Lymphocytes # (Manual) Monocytes # (Manual) D-Dimer POC ABG pH ABG pH POC ABG pCO2 POC ABG pO2 ABG pO2 ABG O2 Saturation ABG Hemoglobin 12.6 L Oxyhemoglobin 94.2 L Sodium 149 H Potassium Chloride 114.6 H Carbon Dioxide BUN Creatinine Glucose POC Glucose 110 H Lactic Acid Calcium 7.9 L Phosphorus Magnesium Total Bilirubin AST NT-Pro-B Natriuret Pep Total Protein Albumin Lipase 07/28/19 07/28/19 07/29/19 04:12 04:12 05:15 WBC 15.3 H RBC Hgb 11.5 L Hct 34.4 L MCV RDW 15.9 H Plt Count Lymph % (Auto) [place] % (Auto) Lymph # [place] # Seg Neutrophils % Seg Neuts % (Manual) Lymphocytes % (Manual) Monocytes % (Manual) Nucleated RBC % Seg Neutrophils # Seg Neutrophils # Man Lymphocytes # (Manual) Monocytes # (Manual) D-Dimer POC ABG pH ABG pH POC ABG pCO2 POC ABG pO2 ABG pO2 ABG O2 Saturation ABG Hemoglobin Oxyhemoglobin Sodium 149 H 149 H Potassium Chloride 113.3 H 113.9 H Carbon Dioxide BUN Creatinine 0.7 L 0.6 L Glucose 109 H POC Glucose Lactic Acid Calcium 8.0 L 8.0 L Phosphorus Magnesium 1.60 L Total Bilirubin AST NT-Pro-B Natriuret Pep Total Protein 4.2 L D Albumin 2.0 L Lipase 07/29/19 07/29/19 07/29/19 05:34 05:34 17:59 WBC RBC Hgb Hct MCV RDW Plt Count Lymph % (Auto) [place] % (Auto) Lymph # [place] # Seg Neutrophils % Seg Neuts % (Manual) Lymphocytes % (Manual) Monocytes % (Manual) Nucleated RBC % Seg Neutrophils # Seg Neutrophils # Man Lymphocytes # (Manual) Monocytes # (Manual) D-Dimer POC ABG pH ABG pH POC ABG pCO2 46.9 H POC ABG pO2 65 L ABG pO2 ABG O2 Saturation ABG Hemoglobin Oxyhemoglobin Sodium Potassium Chloride Carbon Dioxide BUN Creatinine Glucose POC Glucose 107 H 110 H Lactic Acid Calcium Phosphorus Magnesium Total Bilirubin AST NT-Pro-B Natriuret Pep Total Protein Albumin Lipase 07/30/19 07/30/19 07/30/19 04:46 04:46 05:23 WBC 21.2 H RBC 3.36 L Hgb 10.5 L Hct 31.4 L MCV RDW 15.8 H Plt Count Lymph % (Auto) [place] % (Auto) Lymph # [place] # Seg Neutrophils % Seg Neuts % (Manual) Lymphocytes % (Manual) Monocytes % (Manual) Nucleated RBC % Seg Neutrophils # Seg Neutrophils # Man Lymphocytes # (Manual) Monocytes # (Manual) D-Dimer POC ABG pH 7.344 L ABG pH POC ABG pCO2 48.8 H POC ABG pO2 77 L ABG pO2 ABG O2 Saturation ABG Hemoglobin Oxyhemoglobin Sodium 146 H Potassium Chloride 110.8 H Carbon Dioxide BUN 22 H Creatinine 0.7 L Glucose 101 H POC Glucose Lactic Acid Calcium 7.9 L Phosphorus 4.60 H Magnesium Total Bilirubin AST NT-Pro-B Natriuret Pep Total Protein Albumin Lipase 07/30/19 07/31/19 07/31/19 12:17 04:42 08:10 WBC 15.4 H RBC 3.11 L Hgb 9.8 L Hct 29.3 L MCV RDW 15.8 H Plt Count Lymph % (Auto) [place] % (Auto) Lymph # [place] # Seg Neutrophils % Seg Neuts % (Manual) 81.0 H Lymphocytes % (Manual) 10.0 L Monocytes % (Manual) Nucleated RBC % Seg Neutrophils # Seg Neutrophils # Man 12.5 H Lymphocytes # (Manual) Monocytes # (Manual) D-Dimer POC ABG pH ABG pH POC ABG pCO2 POC ABG pO2 ABG pO2 ABG O2 Saturation ABG Hemoglobin 10.1 L Oxyhemoglobin 94.8 L Sodium Potassium Chloride Carbon Dioxide BUN Creatinine Glucose POC Glucose 107 H Lactic Acid Calcium Phosphorus Magnesium Total Bilirubin AST NT-Pro-B Natriuret Pep Total Protein Albumin Lipase 07/31/19 07/31/19 07/31/19 08:10 12:36 17:56 WBC RBC Hgb Hct MCV RDW Plt Count Lymph % (Auto) [place] % (Auto) Lymph # [place] # Seg Neutrophils % Seg Neuts % (Manual) Lymphocytes % (Manual) Monocytes % (Manual) Nucleated RBC % Seg Neutrophils # Seg Neutrophils # Man Lymphocytes # (Manual) Monocytes # (Manual) D-Dimer POC ABG pH ABG pH POC ABG pCO2 POC ABG pO2 ABG pO2 ABG O2 Saturation ABG Hemoglobin Oxyhemoglobin Sodium 146 H Potassium Chloride 110.2 H Carbon Dioxide BUN 22 H Creatinine 0.7 L Glucose 102 H POC Glucose 119 H 138 H Lactic Acid Calcium 8.3 L Phosphorus Magnesium Total Bilirubin AST NT-Pro-B Natriuret Pep Total Protein Albumin Lipase 08/01/19 08/01/19 08/01/19 00:02 05:15 05:15 WBC 18.0 H RBC 3.12 L Hgb 9.7 L Hct 30.3 L MCV 97 H RDW 16.0 H Plt Count Lymph % (Auto) [place] % (Auto) Lymph # [place] # Seg Neutrophils % Seg Neuts % (Manual) Lymphocytes % (Manual) Monocytes % (Manual) Nucleated RBC % Seg Neutrophils # Seg Neutrophils # Man Lymphocytes # (Manual) Monocytes # (Manual) D-Dimer POC ABG pH ABG pH POC ABG pCO2 POC ABG pO2 ABG pO2 ABG O2 Saturation ABG Hemoglobin Oxyhemoglobin Sodium 149 H Potassium Chloride 112.0 H Carbon Dioxide BUN 28 H Creatinine Glucose POC Glucose 119 H Lactic Acid Calcium Phosphorus 5.60 H D Magnesium Total Bilirubin AST NT-Pro-B Natriuret Pep Total Protein Albumin Lipase 08/01/19 08/01/19 08/01/19 05:47 11:58 18:13 WBC RBC Hgb Hct MCV RDW Plt Count Lymph % (Auto) [place] % (Auto) Lymph # [place] # Seg Neutrophils % Seg Neuts % (Manual) Lymphocytes % (Manual) Monocytes % (Manual) Nucleated RBC % Seg Neutrophils # Seg Neutrophils # Man Lymphocytes # (Manual) Monocytes # (Manual) D-Dimer POC ABG pH ABG pH POC ABG pCO2 POC ABG pO2 ABG pO2 ABG O2 Saturation ABG Hemoglobin Oxyhemoglobin Sodium Potassium Chloride Carbon Dioxide BUN Creatinine Glucose POC Glucose 142 H 115 H 113 H Lactic Acid Calcium Phosphorus Magnesium Total Bilirubin AST NT-Pro-B Natriuret Pep Total Protein Albumin Lipase 08/02/19 08/02/19 08/02/19 04:15 04:15 05:16 WBC 14.0 H RBC 3.12 L Hgb 9.6 L Hct 29.3 L MCV RDW 15.3 H Plt Count Lymph % (Auto) 9.9 L [place] % (Auto) 8.6 H Lymph # [place] # 1.2 H Seg Neutrophils % 80.8 H Seg Neuts % (Manual) Lymphocytes % (Manual) Monocytes % (Manual) Nucleated RBC % Seg Neutrophils # 11.3 H Seg Neutrophils # Man Lymphocytes # (Manual) Monocytes # (Manual) D-Dimer POC ABG pH ABG pH POC ABG pCO2 POC ABG pO2 ABG pO2 ABG O2 Saturation ABG Hemoglobin Oxyhemoglobin Sodium 148 H Potassium Chloride 109.7 H Carbon Dioxide 32 H BUN Creatinine Glucose 113 H POC Glucose 113 H Lactic Acid Calcium Phosphorus 1.90 L D Magnesium Total Bilirubin AST NT-Pro-B Natriuret Pep Total Protein Albumin Lipase 08/02/19 08/02/19 08/03/19 11:53 18:07 00:48 WBC RBC Hgb Hct MCV RDW Plt Count Lymph % (Auto) [place] % (Auto) Lymph # [place] # Seg Neutrophils % Seg Neuts % (Manual) Lymphocytes % (Manual) Monocytes % (Manual) Nucleated RBC % Seg Neutrophils # Seg Neutrophils # Man Lymphocytes # (Manual) Monocytes # (Manual) D-Dimer POC ABG pH ABG pH POC ABG pCO2 POC ABG pO2 ABG pO2 ABG O2 Saturation ABG Hemoglobin Oxyhemoglobin Sodium Potassium Chloride Carbon Dioxide BUN Creatinine Glucose POC Glucose 123 H 112 H 117 H Lactic Acid Calcium Phosphorus Magnesium Total Bilirubin AST NT-Pro-B Natriuret Pep Total Protein Albumin Lipase 08/03/19 08/03/19 08/03/19 06:08 06:15 12:01 WBC RBC Hgb Hct MCV RDW Plt Count Lymph % (Auto) [place] % (Auto) Lymph # [place] # Seg Neutrophils % Seg Neuts % (Manual) Lymphocytes % (Manual) Monocytes % (Manual) Nucleated RBC % Seg Neutrophils # Seg Neutrophils # Man Lymphocytes # (Manual) Monocytes # (Manual) D-Dimer POC ABG pH ABG pH POC ABG pCO2 POC ABG pO2 ABG pO2 ABG O2 Saturation ABG Hemoglobin Oxyhemoglobin Sodium 148 H Potassium Chloride 110.5 H Carbon Dioxide BUN Creatinine Glucose 104 H POC Glucose 113 H 124 H Lactic Acid Calcium 7.9 L Phosphorus Magnesium Total Bilirubin AST NT-Pro-B Natriuret Pep Total Protein Albumin Lipase 08/03/19 08/04/19 08/04/19 18:20 05:40 05:40 WBC RBC 3.09 L Hgb 9.8 L Hct 28.5 L MCV RDW Plt Count Lymph % (Auto) [place] % (Auto) 9.0 H Lymph # [place] # 1.0 H Seg Neutrophils % 72.6 H Seg Neuts % (Manual) Lymphocytes % (Manual) Monocytes % (Manual) Nucleated RBC % Seg Neutrophils # 7.9 H Seg Neutrophils # Man Lymphocytes # (Manual) Monocytes # (Manual) D-Dimer POC ABG pH ABG pH POC ABG pCO2 POC ABG pO2 ABG pO2 ABG O2 Saturation ABG Hemoglobin Oxyhemoglobin Sodium 147 H Potassium Chloride 109.6 H Carbon Dioxide BUN Creatinine 0.6 L Glucose 108 H POC Glucose 115 H Lactic Acid Calcium 8.0 L Phosphorus Magnesium Total Bilirubin AST NT-Pro-B Natriuret Pep Total Protein Albumin Lipase 08/04/19 08/04/19 08/04/19 06:07 12:29 16:49 WBC RBC Hgb Hct MCV RDW Plt Count Lymph % (Auto) [place] % (Auto) Lymph # [place] # Seg Neutrophils % Seg Neuts % (Manual) Lymphocytes % (Manual) Monocytes % (Manual) Nucleated RBC % Seg Neutrophils # Seg Neutrophils # Man Lymphocytes # (Manual) Monocytes # (Manual) D-Dimer POC ABG pH ABG pH POC ABG pCO2 POC ABG pO2 ABG pO2 ABG O2 Saturation ABG Hemoglobin Oxyhemoglobin Sodium Potassium Chloride Carbon Dioxide BUN Creatinine Glucose POC Glucose 110 H 110 H 110 H Lactic Acid Calcium Phosphorus Magnesium Total Bilirubin AST NT-Pro-B Natriuret Pep Total Protein Albumin Lipase 08/05/19 08/05/19 08/05/19 00:14 04:00 05:20 WBC RBC 2.87 L Hgb 9.1 L Hct 26.8 L MCV RDW Plt Count Lymph % (Auto) [place] % (Auto) 10.7 H Lymph # [place] # 1.0 H Seg Neutrophils % Seg Neuts % (Manual) Lymphocytes % (Manual) Monocytes % (Manual) Nucleated RBC % Seg Neutrophils # Seg Neutrophils # Man Lymphocytes # (Manual) Monocytes # (Manual) D-Dimer POC ABG pH ABG pH POC ABG pCO2 POC ABG pO2 ABG pO2 ABG O2 Saturation ABG Hemoglobin Oxyhemoglobin Sodium Potassium Chloride Carbon Dioxide BUN Creatinine 0.6 L Glucose POC Glucose 117 H Lactic Acid Calcium 7.7 L Phosphorus Magnesium Total Bilirubin AST NT-Pro-B Natriuret Pep Total Protein Albumin Lipase 08/05/19 12:25 WBC RBC Hgb Hct MCV RDW Plt Count Lymph % (Auto) [place] % (Auto) Lymph # [place] # Seg Neutrophils % Seg Neuts % (Manual) Lymphocytes % (Manual) Monocytes % (Manual) Nucleated RBC % Seg Neutrophils # Seg Neutrophils # Man Lymphocytes # (Manual) Monocytes # (Manual) D-Dimer POC ABG pH ABG pH POC ABG pCO2 POC ABG pO2 ABG pO2 ABG O2 Saturation ABG Hemoglobin Oxyhemoglobin Sodium Potassium Chloride Carbon Dioxide BUN Creatinine Glucose POC Glucose 114 H Lactic Acid Calcium Phosphorus Magnesium Total Bilirubin AST NT-Pro-B Natriuret Pep Total Protein Albumin Lipase
--- NOTE | 2019-08-05 13:39 | Progress Note ---
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 neuro - stable. 2. CV - DVT ppx. Monitor CBC - normal WBC today. 3. Resp - Left pleural effusion - new since last CXR on 07/23. Has congested cough as well. Probably component of atelectasis as well. 4. GI - NPO, TPN, NGT to LIWS. record URMILA output. Pt will likely have prolonged ileus, do not start TF until evidence of bowel function. GI ppx. Abdominal binder at all times to minimize risk of patient pulling at URMILA, incision, etc. Appears as though the NGT appearance is becoming manager transportation planning and volume is slowly decreasing. Perhaps a sign that the ileus is beginning to resolve. If the NG tube output eventually appears consistent with gastric fluid, but the patient has not had a bowel movement yet, we will consider trickle tube feeds at that time. 5. - lee for strict I/Os. May be removed and replaced with condom cath when ok with 1' service and nephro. UA ok. 6. ID - abx per ID. Reviewed ID note. Ok to get CT. I asked Dr. Ruiz to do CT with IV and PO contrast to better assess the area of the anastomosis. 7. Endo - blood glucose monitoring per protocol 8. FEN - BMP daily, replace lytes as needed. TPN Dispo - ICU D/w'd Dr. uRiz Thank you, please call with questions. Subjective Date of service: 08/05/19 Patient Reports: Positive: no flatus, no bowel movement, fever, other (no new is sues. Continues to have morning fevers. ) Objective Vital Signs - 12hr 08/05/19 08/05/19 08/05/19 02:00 02:30 03:00 Temperature Pulse Rate 78 74 85 Pulse Rate [ From Monitor] Respiratory 29 H 22 25 H Rate Blood Pressure 144/87 155/95 150/85 O2 Sat by Pulse 93 99 100 Oximetry 08/05/19 08/05/19 08/05/19 03:30 04:00 04:30 Temperature 99.1 F Pulse Rate 78 80 89 Pulse Rate [ 85 From Monitor] Respiratory 24 24 24 Rate Blood Pressure 142/92 145/91 145/84 O2 Sat by Pulse 99 97 98 Oximetry 08/05/19 08/05/19 08/05/19 05:00 05:30 06:00 Temperature Pulse Rate 82 76 74 Pulse Rate [ From Monitor] Respiratory 24 22 22 Rate Blood Pressure 138/80 140/82 140/77 O2 Sat by Pulse 100 98 99 Oximetry 08/05/19 08/05/19 08/05/19 06:30 07:00 07:30 Temperature Pulse Rate 78 77 76 Pulse Rate [ From Monitor] Respiratory 19 20 25 H Rate Blood Pressure 132/84 145/91 142/104 O2 Sat by Pulse 99 98 99 Oximetry 08/05/19 08/05/19 08/05/19 08:00 08:30 09:00 Temperature 100.6 F H Pulse Rate 71 75 68 Pulse Rate [ 78 From Monitor] Respiratory 16 27 H 22 Rate Blood Pressure 139/85 145/88 144/83 O2 Sat by Pulse 100 97 98 Oximetry 08/05/19 08/05/19 08/05/19 09:30 09:43 10:00 Temperature Pulse Rate 67 71 72 Pulse Rate [ From Monitor] Respiratory 25 H 21 Rate Blood Pressure 143/86 143/86 149/95 O2 Sat by Pulse 96 98 Oximetry - General physical appearance no distress, no pain, other (sleeping) - Respiratory normal expansion, normal respiratory effort - Abdomen soft, not tender, bowel sounds hypoactive, not distended, not guarding, not rigid, surgical scars (no change), other (drain is serous. NGT output is getting manager transportation planning) - Labs 08/05/19 05:20 08/05/19 04:00 Diabetes panel 08/05/19 Range/Units 04:00 Sodium 143 (137-145) mmol/L Potassium 3.7 (3.6-5.0) mmol/L Chloride 107.0 (98-107) mmol/L Carbon Dioxide 28 (22-30) mmol/L BUN 16 (9-20) mg/dL Creatinine 0.6 L (0.8-1.5) mg/dL Glucose 86 (75-100) mg/dL Calcium 7.7 L (8.4-10.2) mg/dL Calcium panel 08/05/19 Range/Units 04:00 Calcium 7.7 L (8.4-10.2) mg/dL Phosphorus 3.50 (2.5-4.5) mg/dL Pituitary panel 08/05/19 Range/Units 04:00 Sodium 143 (137-145) mmol/L Potassium 3.7 (3.6-5.0) mmol/L Chloride 107.0 (98-107) mmol/L Carbon Dioxide 28 (22-30) mmol/L BUN 16 (9-20) mg/dL Creatinine 0.6 L (0.8-1.5) mg/dL Glucose 86 (75-100) mg/dL Calcium 7.7 L (8.4-10.2) mg/dL Adrenal panel 08/05/19 Range/Units 04:00 Sodium 143 (137-145) mmol/L Potassium 3.7 (3.6-5.0) mmol/L Chloride 107.0 (98-107) mmol/L Carbon Dioxide 28 (22-30) mmol/L BUN 16 (9-20) mg/dL Creatinine 0.6 L (0.8-1.5) mg/dL Glucose 86 (75-100) mg/dL Calcium 7.7 L (8.4-10.2) mg/dL
--- NOTE | 2019-08-05 15:36 | Cat Scan Report ---
CT ABDOMEN AND PELVIS WITH CONTRAST HISTORY: Persistent fever, prior abdominal surgery. COMPARISON: CT abdomen/pelvis from 07/23/2019 TECHNIQUE: CT images of the abdomen and pelvis were obtained following administration of intravenous contrast. All CT scans at this location are performed using CT dose reduction for ALARA by means of automated exposure control. CONTRAST: 100 ml of intravenous contrast administered. FINDINGS: Lungs/bones: There are small bilateral pleural effusions and mild bibasilar consolidation/atelectasi s. Degenerative changes are present in the spine with no acute osseous abnormality. Abdomen/pelvis: The liver, gallbladder, spleen, pancreas, adrenals, and kidneys appear unremarkable. A tube enters the abdomen left of midline in the mid abdominal region, presumably a drainage tube. M idline postoperative change is present with skin chaparro and small amount of midline subcutaneous flu id measuring up to 4.9 cm in maximal transverse dimension and roughly 9 cm in craniocaudal length. Urinary bladder is collapsed with Mcpherson catheter in place. Prostate is not well-seen on this exam. No pelvic free fluid. There is mild wall thickening along segments of the colon, especially the transverse colon. No gross abscess or free air identified. IMPRESSION: 1. Interval postoperative changes outlined above. No gross abscess or bowel obstruction identified. 2. Areas of wall thickening involving the colon can be seen with colitis. 3. Bibasilar consolidation with small effusions. Findings at least in part reflect compressive atelec tasis but cannot exclude underlying pneumonia. 4. Small amount of fluid in the midline underlying the skin chaparro, likely postoperative in nature a s could be seen with hematoma formation but attention on follow-up recommended. Signer Name: Matt Helm MD Signed: 08/05/2019 3:32 PM Workstation Name: [id number]
--- NOTE | 2019-08-05 18:16 | Vascular Lab Report ---
DUPLEX DOPPLER LOWER EXTREMITY VEINS, BILATERAL INDICATION: post op fevers, immobility. TECHNIQUE: Duplex doppler imaging was performed through the veins of both lower extremities using venous don olga and other maneuvers. COMPARISON: No relevant prior imaging study available. FINDINGS: Right Common femoral vein: Negative. Right Superficial femoral vein: Negative. Right Popliteal vein: Negative. Right Calf veins: Negative. Left Common femoral vein: Negative. Left Superficial femoral vein: Negative. Left Popliteal vein: Negative. Left Calf veins: Negative. Additional findings: None.. IMPRESSION: 1. No sonographic evidence for DVT in either lower extremity. Signer Name: Matt Helm MD Signed: 08/05/2019 6:11 PM Workstation Name: [id number]
[2019-08-05] MEDS ORDERED: TOTAL PARENTERAL NUTRITION 2,400 ML IV SCH (20:00)
[2019-08-06] MEDS: VANCOMYCIN 2,000 MG in SODIUM CHLORIDE 0.9% 500 ML 500 ML IV SCH ×2 (02:23→14:32)
[2019-08-06] MEDS: MEROPENEM/NS 1 GRAM/100 ML 1 GRAM/100 ML BAG IV SCH ×3 (05:05→23:31)
[2019-08-06 05:19] LABS: BUN/Creatinine Ratio 26; Blood Urea Nitrogen 13 mg/dL (9-20); Calcium 8.1 mg/dL (8.4-10.2); Hemolysis Index 0
[2019-08-06] MEDS: METOPROLOL TARTRATE 5 MG/5 ML INJ IV SCH ×3 (08:00→21:11)
[2019-08-06] MEDS: ENOXAPARIN 40 MG/0.4 ML INJ SUB-Q SCH (10:00)
[2019-08-06] MEDS: FLUCONAZOLE 400 MG 200 ML IV SCH (10:00)
[2019-08-06] MEDS: FAMOTIDINE 20 MG/2 ML INJ IV SCH ×2 (10:00→21:11)
[2019-08-06] MEDS: VALPROATE SODIUM 500 MG in SODIUM CHLORIDE 0.9% 100 ML IV SCH ×2 (10:21→23:25)
--- NOTE | 2019-08-06 11:03 | Progress Note ---
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 neuro - stable. 2. CV - DVT ppx. CBC normalized 3. Resp - Left pleural effusion - new since last CXR on 07/23. Has congested cough as well. Probably component of atelectasis as well. 4. GI - NPO, TPN. Ileus appears to be resolving. Would try starting tube feeds at 10cc/hr and see how he tolerates it today. CT shows the anastomosis to be intact. There is no suggestion of any fluid collection adjacent to the anastomosis to suggest a leak. The URMILA drain is in perfect position adjacent to the anastomosis to identify any potential leaks. There is a small fluid collection under the incision. It does not appear to be an abscess. Would observe for now. We will plan to remove URMILA drain once he resumes bowel function. 5. - lee for strict I/Os. 6. ID - abx per ID. 7. Endo - blood glucose monitoring per protocol 8. FEN - BMP daily, replace lytes as needed. TPN Dispo - ICU. Ok for transfer to [facility] from my standpoint. Thank you, please call with questions. Subjective Date of service: 08/06/19 Patient Reports: Positive: other (no issues or fevers o/n) Objective Vital Signs - 12hr 08/05/19 08/05/19 08/05/19 23:00 23:30 23:58 Temperature 99.6 F Pulse Rate 69 73 Pulse Rate [ From Monitor] Respiratory 17 15 Rate Blood Pressure 142/90 150/91 O2 Sat by Pulse 100 100 Oximetry 08/06/19 08/06/19 08/06/19 00:00 00:30 01:00 Temperature 99.6 F Pulse Rate 61 68 70 Pulse Rate [ 60 From Monitor] Respiratory 20 22 20 Rate Blood Pressure 147/85 149/86 149/86 O2 Sat by Pulse 100 100 100 Oximetry 08/06/19 08/06/19 08/06/19 01:30 02:00 02:30 Temperature Pulse Rate 71 74 66 Pulse Rate [ From Monitor] Respiratory 22 21 21 Rate Blood Pressure 146/96 149/95 141/93 O2 Sat by Pulse 100 100 100 Oximetry 08/06/19 08/06/19 08/06/19 03:00 03:30 04:00 Temperature 98.6 F Pulse Rate 72 64 78 Pulse Rate [ 78 From Monitor] Respiratory 22 23 19 Rate Blood Pressure 141/93 150/90 147/88 O2 Sat by Pulse 100 100 100 Oximetry 08/06/19 08/06/19 08/06/19 04:09 04:30 05:00 Temperature Pulse Rate 65 65 65 Pulse Rate [ From Monitor] Respiratory 19 22 Rate Blood Pressure 155/91 147/88 O2 Sat by Pulse 99 99 Oximetry 08/06/19 08/06/19 08/06/19 05:30 06:00 06:30 Temperature Pulse Rate 77 64 65 Pulse Rate [ From Monitor] Respiratory 21 21 21 Rate Blood Pressure 144/87 150/94 154/93 O2 Sat by Pulse 100 100 99 Oximetry 08/06/19 08/06/19 08/06/19 07:00 07:30 08:00 Temperature 97.8 F Pulse Rate 68 68 67 Pulse Rate [ 74 From Monitor] Respiratory 21 19 23 Rate Blood Pressure 150/94 152/91 153/94 O2 Sat by Pulse 100 100 99 Oximetry 08/06/19 08/06/19 08/06/19 08:30 09:00 09:30 Temperature Pulse Rate 77 64 78 Pulse Rate [ From Monitor] Respiratory 22 17 22 Rate Blood Pressure 149/94 153/94 150/84 O2 Sat by Pulse 100 99 100 Oximetry 08/06/19 10:00 Temperature Pulse Rate 77 Pulse Rate [ From Monitor] Respiratory 22 Rate Blood Pressure 167/89 O2 Sat by Pulse 100 Oximetry - General physical appearance no distress, no pain - Respiratory normal expansion, normal respiratory effort, other (still has wet cough) - Abdomen soft, not tender, bowel sounds hypoactive (starting to come back), not distended, not guarding, not rigid, surgical scars (minimal serous drainage), other (URMILA is serous) - Integumentary no rash, no growths, no abnormal pigmentation - Labs 08/05/19 05:20 08/06/19 04:45 Diabetes panel 08/06/19 Range/Units 04:45 Sodium 142 (137-145) mmol/L Potassium 3.8 (3.6-5.0) mmol/L Chloride 106.4 (98-107) mmol/L Carbon Dioxide 28 (22-30) mmol/L BUN 13 (9-20) mg/dL Creatinine 0.5 L (0.8-1.5) mg/dL Glucose 109 H (75-100) mg/dL Calcium 8.1 L (8.4-10.2) mg/dL Calcium panel 08/06/19 Range/Units 04:45 Calcium 8.1 L (8.4-10.2) mg/dL Pituitary panel 08/06/19 Range/Units 04:45 Sodium 142 (137-145) mmol/L Potassium 3.8 (3.6-5.0) mmol/L Chloride 106.4 (98-107) mmol/L Carbon Dioxide 28 (22-30) mmol/L BUN 13 (9-20) mg/dL Creatinine 0.5 L (0.8-1.5) mg/dL Glucose 109 H (75-100) mg/dL Calcium 8.1 L (8.4-10.2) mg/dL Adrenal panel 08/06/19 Range/Units 04:45 Sodium 142 (137-145) mmol/L Potassium 3.8 (3.6-5.0) mmol/L Chloride 106.4 (98-107) mmol/L Carbon Dioxide 28 (22-30) mmol/L BUN 13 (9-20) mg/dL Creatinine 0.5 L (0.8-1.5) mg/dL Glucose 109 H (75-100) mg/dL Calcium 8.1 L (8.4-10.2) mg/dL
--- NOTE | 2019-08-06 11:15 | Progress Note ---
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 he initially presented with abdominal pain, nausea and vomiting. he was seen and examined in ED. CT Abd showed severe constipation. he was given Fleets enema and admitted. His BMP was WNL. By the next day, his Cr level trended up to 2.2 with hyperkalemia of 5.3. He subsequently desaturated and was transferred to the ICU. Acute resp failure with hypoxia s/p intubation, >96 hrs now extubated (07/31/19), on high flow oxygen [employer] following cont aspiration precautions Ischemic Bowel s/p ex lap and resection s/p abdominal colectomy with ileocolostomy (07/26) s/p Open abdominal wound closure 07/28 on TPN ileus improved, pt to start tube feeding trial @ 10cc/hr today per surgery Septic shock due to intra-abdominal source versus possible PNA (HCAP) s/p ex-lap on 07/23/2019, Per surgery findings of multiple distinct areas of necrosis on transverse colon. Rest of intestines were normal. cont IV antibiotics with vancomycin and meropenem as well as IV diflucan CT abd/pelvis on 08/05 showed bibasilar consolidation with small effusions ID following Fecal impaction: s/p ex-lap on 07/23/2019, findings of multiple distinct areas of necrosis on transverse colon. rest of intestines were normal. s/p washout on 07/26/2019 along with abdominal colectomy and ileosigmoid anastomosis with open abdomen. Underwent abdominal closure on 07/28/2019. Improved. Acute metabolic encephalopathy -will cont to monitor clinically [place] due to ATN resolved Nephrology consulted Cardiomyopathy with EF of 25-30% -Cardiology consulted: Ischemic work up when more stable Elevated d-dimer BLE venous doppler u/s neg for DVT will order CTA chest to assess for PE since pt's cr level is normal Lactic acidosis Secondary to ischemic Bowel Hyperkalemia -resolved Hypernatremia resolved Thrombocytopenia -resolved Sinus tachycardia -controlled on IV Lopressor Elevated BP without prior diagnosis of HTN -cont IV Lopressor -PRN IV hydralazine added, monitor BP AOCD -H/H stable, will monitor Seizure disorder -stable, cont home meds -cont seizure precautions Downs syndrome cont supportive care DVT ppx: Lovenox GI ppx: Famotidine code status: full Condition guarded and prognosis poor Critical time spent: 35 minutes History Interval history: Pt is non-verbal. No overnight issues reported Hospitalist Physical - Constitutional Vitals: Temp Pulse Resp BP Pulse Ox 97.8 F 77 22 167/89 100 08/06/19 08:00 08/06/19 10:00 08/06/19 10:00 08/06/19 10:00 08/06/19 10:00 General appearance: Present: no acute distress, obese - EENT Eyes: Present: PERRL ENT: clear oral mucosa - Neck Neck: Present: supple - Respiratory Respiratory effort: normal Respiratory: bilateral: rhonchi - Cardiovascular Rhythm: regular Heart Sounds: Present: S1 & S2 - Extremities Extremities: No edema - Abdominal General gastrointestinal: soft, non-tender, non-distended, normal bowel sounds, other (URMILA drain noted) - Psychiatric Psychiatric: other (could not be assessed due to AMS) - Neurologic Neurologic: other (pt is unresponsive) Results - Labs CBC & Chem 7: 08/05/19 05:20 08/06/19 04:45 Labs: Laboratory Last Values WBC 9.8 K/mm3 (4.5-11.0) 08/05/19 05:20 RBC 2.87 M/mm3 (3.65-5.03) L 08/05/19 05:20 Hgb 9.1 gm/dl (11.8-15.2) L 08/05/19 05:20 Hct 26.8 % (35.5-45.6) L 08/05/19 05:20 MCV 93 fl (84-94) 08/05/19 05:20 MCH 32 pg (28-32) 08/05/19 05:20 MCHC 34 % (32-34) 08/05/19 05:20 RDW 14.6 % (13.2-15.2) 08/05/19 05:20 Plt Count 258 K/mm3 (140-440) 08/05/19 05:20 Lymph % (Auto) 21.3 % (13.4-35.0) 08/05/19 05:20 Cocke % (Auto) 10.7 % (0.0-7.3) H 08/05/19 05:20 Eos % (Auto) 0.8 % (0.0-4.3) 08/05/19 05:20 Baso % (Auto) 0.6 % (0.0-1.8) 08/05/19 05:20 Lymph # 2.1 K/mm3 (1.2-5.4) 08/05/19 05:20 Cocke # 1.0 K/mm3 (0.0-0.8) H 08/05/19 05:20 Eos # 0.1 K/mm3 (0.0-0.4) 08/05/19 05:20 Baso # 0.1 K/mm3 (0.0-0.1) 08/05/19 05:20 Add Manual Diff Complete 07/31/19 08:10 Total Counted 100 07/31/19 08:10 Seg Neutrophils % 66.6 % (40.0-70.0) 08/05/19 05:20 Seg Neuts % (Manual) 81.0 % (40.0-70.0) H 07/31/19 08:10 Band Neutrophils % 0 % 07/31/19 08:10 Lymphocytes % (Manual) 10.0 % (13.4-35.0) L 07/31/19 08:10 Reactive Lymphs % (Man) 0 % 07/31/19 08:10 Monocytes % (Manual) 2.0 % (0.0-7.3) 07/31/19 08:10 Eosinophils % (Manual) 0 % (0.0-4.3) 07/31/19 08:10 Basophils % (Manual) 0 % (0.0-1.8) 07/31/19 08:10 Metamyelocytes % 7.0 % 07/31/19 08:10 Myelocytes % 0 % 07/31/19 08:10 Promyelocytes % 0 % 07/31/19 08:10 Blast Cells % 0 % 07/31/19 08:10 Nucleated RBC % Not Reportable 07/31/19 08:10 Seg Neutrophils # 6.5 K/mm3 (1.8-7.7) 08/05/19 05:20 Seg Neutrophils # Man 12.5 K/mm3 (1.8-7.7) H 07/31/19 08:10 Band Neutrophils # 0.0 K/mm3 07/31/19 08:10 Lymphocytes # (Manual) 1.5 K/mm3 (1.2-5.4) 07/31/19 08:10 Abs React Lymphs (Man) 0.0 K/mm3 07/31/19 08:10 Monocytes # (Manual) 0.3 K/mm3 (0.0-0.8) 07/31/19 08:10 Eosinophils # (Manual) 0.0 K/mm3 (0.0-0.4) 07/31/19 08:10 Basophils # (Manual) 0.0 K/mm3 (0.0-0.1) 07/31/19 08:10 Metamyelocytes # 1.1 K/mm3 07/31/19 08:10 Myelocytes # 0.0 K/mm3 07/31/19 08:10 Promyelocytes # 0.0 K/mm3 07/31/19 08:10 Blast Cells # 0.0 K/mm3 07/31/19 08:10 WBC Morphology Not Reportable 07/31/19 08:10 Hypersegmented Neuts Not Reportable 07/31/19 08:10 Hyposegmented Neuts Not Reportable 07/31/19 08:10 Hypogranular Neuts Not Reportable 07/31/19 08:10 Smudge Cells Not Reportable 07/31/19 08:10 Toxic Granulation Not Reportable 07/31/19 08:10 Toxic Vacuolation Not Reportable 07/31/19 08:10 Dohle Bodies Not Reportable 07/31/19 08:10 Pelger-Huet Anomaly Not Reportable 07/31/19 08:10 Alea Rods Not Reportable 07/31/19 08:10 Platelet Estimate Consistent w auto 07/31/19 08:10 Clumped Platelets Not Reportable 07/31/19 08:10 Plt Clumps, EDTA Not Reportable 07/31/19 08:10 Large Platelets Not Reportable 07/31/19 08:10 Giant Platelets Not Reportable 07/31/19 08:10 Platelet Satelliting Not Reportable 07/31/19 08:10 Plt Morphology Comment Not Reportable 07/31/19 08:10 RBC Morphology Not Reportable 07/31/19 08:10 Dimorphic RBCs Not Reportable 07/31/19 08:10 Polychromasia Not Reportable 07/31/19 08:10 Hypochromasia Not Reportable 07/31/19 08:10 Poikilocytosis Not Reportable 07/31/19 08:10 Anisocytosis Few 07/31/19 08:10 Microcytosis Not Reportable 07/31/19 08:10 Macrocytosis Not Reportable 07/31/19 08:10 Spherocytes Not Reportable 07/31/19 08:10 Pappenheimer Bodies Not Reportable 07/31/19 08:10 Sickle Cells Not Reportable 07/31/19 08:10 Target Cells Not Reportable 07/31/19 08:10 Tear Drop Cells Not Reportable 07/31/19 08:10 Ovalocytes Not Reportable 07/31/19 08:10 Helmet Cells Not Reportable 07/31/19 08:10 Woodard-Callery Bodies Not Reportable 07/31/19 08:10 Catlett Rings Not Reportable 07/31/19 08:10 Kaylyn Cells Not Reportable 07/31/19 08:10 Bite Cells Not Reportable 07/31/19 08:10 Crenated Cell Not Reportable 07/31/19 08:10 Elliptocytes Not Reportable 07/31/19 08:10 Acanthocytes (Spur) Not Reportable 07/31/19 08:10 Rouleaux Not Reportable 07/31/19 08:10 Hemoglobin C Crystals Not Reportable 07/31/19 08:10 Schistocytes Not Reportable 07/31/19 08:10 Malaria parasites Not Reportable 07/31/19 08:10 Emanuel Bodies Not Reportable 07/31/19 08:10 Hem Pathologist Commnt No 07/31/19 08:10 D-Dimer 886.89 ng/mlDDU (0-234) H 07/22/19 21:45 Heparin Anti-Xa, Unfract Negative (Negative) 07/24/19 09:18 POC ABG pH 7.344 (7.35-7.45) L 07/30/19 05:23 ABG pH 7.406 pH Units (7.350-7.450) 07/31/19 04:42 POC ABG pCO2 48.8 (35-45) H 07/30/19 05:23 ABG pCO2 42.4 mm Hg 07/31/19 04:42 POC ABG pO2 77 (80-105) L 07/30/19 05:23 ABG pO2 85.1 mm Hg (80.0-90.0) 07/31/19 04:42 POC ABG HCO3 26.6 (22-26 mml/L) 07/30/19 05:23 ABG HCO3 26.0 mmol/L (20.0-26.0) 07/31/19 04:42 POC ABG Total CO2 28 (23-27mmol/L) 07/30/19 05:23 POC ABG O2 Sat 94 07/30/19 05:23 ABG O2 Saturation 96.7 % (95.0-99.0) 07/31/19 04:42 ABG O2 Content 13.6 (0.0-44) 07/31/19 04:42 POC ABG Base Excess 1 ((-2) - (+3)mmol/L) 07/30/19 05:23 ABG Base Excess 1.2 mmol/L (-2.0-3.0) 07/31/19 04:42 ABG Hemoglobin 10.1 gm/dl (14.0-18.0) L 07/31/19 04:42 ABG Carboxyhemoglobin 1.5 % (0.0-5.0) 07/31/19 04:42 ABG Methemoglobin 0.4 % (0.0-1.5) 07/31/19 04:42 Oxyhemoglobin 94.8 % (95.0-99.0) L 07/31/19 04:42 FiO2 40 % 07/31/19 04:42 Sodium 142 mmol/L (137-145) 08/06/19 04:45 Potassium 3.8 mmol/L (3.6-5.0) 08/06/19 04:45 Chloride 106.4 mmol/L (98-107) 08/06/19 04:45 Carbon Dioxide 28 mmol/L (22-30) 08/06/19 04:45 Anion Gap 11 mmol/L 08/06/19 04:45 BUN 13 mg/dL (9-20) 08/06/19 04:45 Creatinine 0.5 mg/dL (0.8-1.5) L 08/06/19 04:45 Estimated GFR > 60 ml/min 08/06/19 04:45 BUN/Creatinine Ratio 26 % 08/06/19 04:45 Glucose 109 mg/dL (75-100) H 08/06/19 04:45 POC Glucose 110 (70-105) H 08/06/19 05:34 Lactic Acid 1.10 mmol/L (0.7-2.0) 07/25/19 09:16 Calcium 8.1 mg/dL (8.4-10.2) L 08/06/19 04:45 Phosphorus 3.50 mg/dL (2.5-4.5) 08/05/19 04:00 Magnesium 1.90 mg/dL (1.7-2.3) 08/05/19 04:00 Total Bilirubin 0.80 mg/dL (0.1-1.2) 07/28/19 04:12 Direct Bilirubin 0.2 mg/dL (0-0.2) 07/21/19 19:02 Indirect Bilirubin 0.4 mg/dL 07/21/19 19:02 AST 20 units/L (5-40) 07/28/19 04:12 ALT 19 units/L (7-56) 07/28/19 04:12 Alkaline Phosphatase 43 units/L (35-129) 07/28/19 04:12 Ammonia 39.0 umol/L (25-60) 07/23/19 02:50 Troponin T < 0.010 ng/mL (0.00-0.029) 07/22/19 15:33 NT-Pro-B Natriuret Pep 5407 pg/mL (0-450) H 07/22/19 21:45 Total Protein 4.2 g/dL (6.3-8.2) L D 07/28/19 04:12 Albumin 2.0 g/dL (3.9-5) L 07/28/19 04:12 Albumin/Globulin Ratio 0.9 % 07/28/19 04:12 Triglycerides 136 mg/dL (2-149) 07/30/19 04:46 Lipase 10 units/L (13-60) L 07/21/19 19:02 Serotonin Release Assay See scanned result 07/24/19 09:18 TSH 0.888 mlU/mL (0.270-4.200) 07/23/19 13:06 Free T4 1.04 ng/dL (0.76-1.46) 07/23/19 13:06 Urine Color Yellow (Yellow) 08/01/19 16:30 Urine Turbidity Clear (Clear) 08/01/19 16:30 Urine pH 6.0 (5.0-7.0) 08/01/19 16:30 Ur Specific [place] 1.015 (1.003-1.030) 08/01/19 16:30 Urine Protein <15 mg/dl mg/dL (Negative) 08/01/19 16:30 Urine Glucose (UA) Neg mg/dL (Negative) 08/01/19 16:30 Urine Ketones Neg mg/dL (Negative) 08/01/19 16:30 Urine Blood Neg (Negative) 08/01/19 16:30 Urine Nitrite Neg (Negative) 08/01/19 16:30 Urine Bilirubin Neg (Negative) 08/01/19 16:30 Urine Ictotest Negative (Negative) 07/21/19 21:36 Urine Urobilinogen < 2.0 mg/dL (<2.0) 08/01/19 16:30 Ur Leukocyte Esterase Tr (Negative) 08/01/19 16:30 Urine WBC (Auto) 6.0 /HPF (0.0-6.0) 08/01/19 16:30 Urine RBC (Auto) 5.0 /HPF (0.0-6.0) 08/01/19 16:30 U Epithel Cells (Auto) < 1.0 /HPF (0-13.0) 08/01/19 16:30 Urine Mucus Few /HPF 08/01/19 16:30 Vancomycin Trough 11.3 ug/mL (5.0-20.0) 08/05/19 01:00 Heparin-induced Plt Ab Negative (Negative) 07/24/19 09:18 UF Heparin High Dose 0 % Release 07/24/19 09:18 GIULIANA UFH Low Dose 0.1 1 % Release 07/24/19 09:18 GIULIANA UFH Low Dose 0.5 0 % Release 07/24/19 09:18 Hepatitis A IgM Ab Non-reactive (NonReactive) 07/23/19 13:06 Hep Bs Antigen Non-reactive (Negative) 07/23/19 13:06 Hep B Core IgM Ab Non-reactive (NonReactive) 07/23/19 13:06 Hepatitis C Antibody Non-reactive (NonReactive) 07/23/19 13:06 Blood Type A POSITIVE 07/28/19 04:12 Antibody Screen Negative 07/28/19 04:12 Active Medications - Current Medications Current Medications: Generic Name Dose Route Start Last Admin Trade Name Freq PRN Reason Stop Dose Admin Acetaminophen 650 mg 07/23/19 02:48 08/05/19 00:26 Tylenol DC 650 mg Q4H PRN Administration Fever >100.5 Enoxaparin Sodium 40 mg 07/27/19 10:00 08/06/19 10:00 Lovenox SUB-Q 40 mg DAILY STEPHEN Administration Famotidine 20 mg 07/24/19 10:00 08/06/19 10:00 Pepcid IV 20 mg BID STEPHEN Administration Haloperidol Lactate 5 mg 07/31/19 18:35 08/01/19 16:27 Haldol IV 5 mg Q6H PRN Administration Agitation Valproate Sodium 500 mg/ 105 mls @ 100 mls/hr 07/24/19 10:00 08/06/19 10:21 Sodium Chloride IV 100 mls/hr Q12HR STEPHEN Administration Fluconazole 200 mls @ 100 mls/hr 07/26/19 15:00 08/05/19 11:45 Diflucan IV Infused Q24HR [facility] Infusion Protocol MEROPENEM/NS 1 GRAM/100 ML 1 gram in 100 mls @ 100 mls/hr 08/03/19 14:00 08/06/19 05:05 Merrem/Ns 1 Gram/100 Ml IV 100 mls/hr Q8HR STEPHEN Administration Protocol Vancomycin HCl 2,000 mg/ 540 mls @ 250 mls/hr 08/04/19 02:00 08/06/19 02:23 Sodium Chloride IV 250 mls/hr Q12H STEPHEN Administration Amino Acids/Electrolytes/Dextrose 2,400 mls @ 100 mls/hr 08/05/19 20:00 08/05/19 19:57 Tpn Adult IV 08/06/19 19:59 100 mls/hr DAILY@[email or web address] [facility] Administration Protocol Amino Acids/Electrolytes/Dextrose 2,400 mls @ 100 mls/hr 08/06/19 20:00 Tpn Adult IV 08/07/19 19:59 DAILY@1999 [facility] Protocol Fat Emulsion Intravenous 250 mls @ 21 mls/hr 08/06/19 20:00 Intralipid 20% IV 08/07/19 08:00 DAILY@[email or web address] [facility] Metoprolol Tartrate 5 mg 08/02/19 14:00 08/06/19 08:00 Metoprolol IV 5 mg TID STEPHEN Administration Morphine Sulfate 2 mg 07/31/19 18:36 08/05/19 03:04 Morphine IV 2 mg Q4H PRN Administration Pain, Moderate (4-6) Ondansetron HCl 4 mg 07/21/19 22:25 07/22/19 01:07 Zofran IV 4 mg Q8H PRN Administration Nausea And Vomiting Nutrition/Malnutrition Assess - Dietary Evaluation Nutrition/Malnutrition Findings: Nutrition Notes Start: 07/23/19 10:09 Freq: Status: Active Protocol: Document 08/06/19 10:55 LM (Rec: 08/06/19 11:09 LM [email or web address]) Nutrition Notes Initial or Follow up Reassessment Current Diagnosis Acute Kidney Injury Other Pertinent Diagnosis Necrosis of transverse colon, down syndrome Current Diet TPN at 100mL/hr Labs/Tests Reviewed Pertinent Medications Reviewed Height 5 ft 7 in Weight 138.3 kg [place] Body Weight (kg) 67.27 BMI 47.7 Weight change and time frame wt change noted Subjective/Other Information CPN day 11. Trickle feeding still considerd if bowel function improves. Percent of energy/protein needs met: 83%/100% Burn Absent Trauma Absent Minimum of two criteria No physical signs of malnutrition #1 Nutrition Diagnosis Inadequate oral intake Diagnosis Progress(for reassessment Continues documentation) Is patient on ventilator? No Is Patient Ambulatory and/or Out of Bed No REE-([facility]-confined to bed) 2816.304 Kcal/Kg value to use for calculation 14 Approximate Energy Requirements Using 1936 kcal/Kg Calculation Used for Recommendations Kcal/kg Additional Notes Pro needs 86-107g (0.8-1.0g/kg /day Adj BW 107.1kg) Fluid needs 1ml/kcal or per MD Nutrition Intervention Change Diet Order: CPN Nutrition Support: Continue CPN at 100mL/hr: MVI, 20% lipids Kcal 2,170 Protein (gm) 120 Carbohydrates (gm) 350 Fat (gm) 50 Fluid (mL) 2,400 Fiber (gm) 0 Goal #1 Meet kcal/PRO as best as possible with CPN Anticipated Discharge Needs: Unable to identify at this time Follow-Up By: 08/07/19 Additional Comments Labs in AM: MILLY
[2019-08-06] MEDS ORDERED: hydrALAZINE 20 MG/1 ML INJ IV PRN (11:26)
--- NOTE | 2019-08-06 13:02 | Progress Note ---
Assessment and Plan 19 y/o male with acute respiratory failure s/p exploratory lap x 2 now on TPN, continuous NG suction and continued sedation. 1. Surgery not appreciated. have reached out to nutrition but no response. Will start feeds and they can change tomorrow. 2. D-Dimer was from 07/22/19. Not even sure what prompted the test to be ordered. patient was having respiratory distress prior to surgery but this was secondary to his acute abdomen and intrabdominal process. He has been extubated and for several days and has been weaned down to [place] where he has been stable. I current do not see and indication for CTA clinically or based on current labs at this time and patient just had a dye load yesterday. I have cancelled this test. Discussed with IMS. 3. Continue TPN for now along with trickle feeds. 4. May move to step down Subjective Date of service: 08/06/19 Principal diagnosis: Respiratory Failure Interval history: Reviewed charts, rounded in IDT. Per nursing CTA ordered. Order states for elevated D-Dimer. Patient remains on nasal cannula and stable. No episodes of hypotension or hypoxemia in the last 24 hours. Objective Vital Signs - 12hr 08/06/19 08/06/19 08/06/19 01:00 01:30 02:00 Temperature Pulse Rate 70 71 74 Pulse Rate [ From Monitor] Respiratory 20 22 21 Rate Blood Pressure 149/86 146/96 149/95 O2 Sat by Pulse 100 100 100 Oximetry 08/06/19 08/06/19 08/06/19 02:30 03:00 03:30 Temperature Pulse Rate 66 72 64 Pulse Rate [ From Monitor] Respiratory 21 22 23 Rate Blood Pressure 141/93 141/93 150/90 O2 Sat by Pulse 100 100 100 Oximetry 08/06/19 08/06/19 08/06/19 04:00 04:09 04:30 Temperature 98.6 F Pulse Rate 78 65 65 Pulse Rate [ 78 From Monitor] Respiratory 19 19 Rate Blood Pressure 147/88 155/91 O2 Sat by Pulse 100 99 Oximetry 08/06/19 08/06/19 08/06/19 05:00 05:30 06:00 Temperature Pulse Rate 65 77 64 Pulse Rate [ From Monitor] Respiratory 22 21 21 Rate Blood Pressure 147/88 144/87 150/94 O2 Sat by Pulse 99 100 100 Oximetry 08/06/19 08/06/1919 06:30 07:00 07:30 Temperature Pulse Rate 65 68 68 Pulse Rate [ From Monitor] Respiratory 21 21 19 Rate Blood Pressure 154/93 150/94 152/91 O2 Sat by Pulse 99 100 100 Oximetry 08/06/19 08/06/19 08/06/19 08:00 08:30 09:00 Temperature 97.8 F Pulse Rate 67 77 64 Pulse Rate [ 74 From Monitor] Respiratory 23 22 17 Rate Blood Pressure 153/94 149/94 153/94 O2 Sat by Pulse 99 100 99 Oximetry 08/06/19 08/06/19 08/06/19 09:30 10:00 10:30 Temperature Pulse Rate 78 77 74 Pulse Rate [ From Monitor] Respiratory 22 22 20 Rate Blood Pressure 150/84 167/89 160/88 O2 Sat by Pulse 100 100 100 Oximetry 08/06/19 08/06/19 08/06/19 11:00 11:30 12:00 Temperature 98.2 F Pulse Rate 69 74 68 Pulse Rate [ 71 From Monitor] Respiratory 23 25 H 19 Rate Blood Pressure 164/92 156/72 160/88 O2 Sat by Pulse 100 100 100 Oximetry 08/06/19 12:30 Temperature Pulse Rate 66 Pulse Rate [ From Monitor] Respiratory 18 Rate Blood Pressure 159/89 O2 Sat by Pulse 100 Oximetry Constitutional: no acute distress Eyes: non-icteric ENT: oropharynx moist Neck: supple Effort: normal Ascultation: Bilateral: diminished breath sounds (due to obesity) Cardiovascular: regular rate and rhythm Gastrointestinal: normoactive bowel sounds, soft, other (morbidly obese abd) Integumentary: normal Extremities: no cyanosis, no edema, pink and warm Neurologic: normal mental status, non-focal exam, pupils equal and round, other (on vent) Psychiatric: mood appropriate, affect normal CBC and BMP: 08/05/19 05:20 08/06/19 04:45 ABG, PT/INR, D-dimer: ABG POC ABG pH 7.344 (7.35-7.45) L 07/30/19 05:23 ABG pH 7.406 pH Units (7.350-7.450) 07/31/19 04:42 POC ABG pCO2 48.8 (35-45) H 07/30/19 05:23 ABG pCO2 42.4 mm Hg 07/31/19 04:42 POC ABG pO2 77 (80-105) L 07/30/19 05:23 ABG pO2 85.1 mm Hg (80.0-90.0) 07/31/19 04:42 POC ABG HCO3 26.6 (22-26 mml/L) 07/30/19 05:23 POC ABG Total CO2 28 (23-27mmol/L) 07/30/19 05:23 POC ABG O2 Sat 94 07/30/19 05:23 ABG O2 Saturation 96.7 % (95.0-99.0) 07/31/19 04:42 PT/INR, D-dimer D-Dimer 886.89 ng/mlDDU (0-234) H 07/22/19 21:45 Abnormal lab findings: Abnormal Labs 07/21/19 07/21/19 07/22/19 19:02 19:02 10:50 WBC 12.1 H 13.7 H RBC 5.56 H Hgb 17.1 H Hct 52.9 H D MCV 95 H 95 H RDW Plt Count 130 L 137 L Lymph % (Auto) 7.2 L [place] % (Auto) 9.6 H Lymph # 0.9 L [place] # 1.2 H Seg Neutrophils % 82.8 H Seg Neuts % (Manual) Lymphocytes % (Manual) Monocytes % (Manual) Nucleated RBC % Seg Neutrophils # 10.0 H Seg Neutrophils # Man Lymphocytes # (Manual) Monocytes # (Manual) D-Dimer POC ABG pH ABG pH POC ABG pCO2 POC ABG pO2 ABG pO2 ABG O2 Saturation ABG Hemoglobin Oxyhemoglobin Sodium 136 L Potassium Chloride 95.9 L Carbon Dioxide BUN Creatinine Glucose 163 H POC Glucose Lactic Acid Calcium Phosphorus Magnesium Total Bilirubin AST NT-Pro-B Natriuret Pep Total Protein Albumin Lipase 10 L 07/22/19 07/22/19 07/22/19 10:50 15:33 15:33 WBC 13.1 H RBC 5.10 H Hgb 15.9 H Hct 49.0 H MCV 96 H RDW Plt Count 127 L Lymph % (Auto) [place] % (Auto) Lymph # [place] # Seg Neutrophils % Seg Neuts % (Manual) Lymphocytes % (Manual) Monocytes % (Manual) Nucleated RBC % Seg Neutrophils # Seg Neutrophils # Man Lymphocytes # (Manual) Monocytes # (Manual) D-Dimer POC ABG pH ABG pH POC ABG pCO2 POC ABG pO2 ABG pO2 ABG O2 Saturation ABG Hemoglobin Oxyhemoglobin Sodium 136 L Potassium 5.3 H D 6.0 H Chloride 96.7 L Carbon Dioxide 17 L BUN 22 H 29 H Creatinine 2.0 H D 2.2 H Glucose 129 H 121 H POC Glucose Lactic Acid Calcium 8.2 L Phosphorus 4.70 H Magnesium 3.10 H Total Bilirubin AST NT-Pro-B Natriuret Pep Total Protein Albumin Lipase 07/22/19 07/22/19 07/22/19 18:19 18:42 21:45 WBC RBC Hgb Hct MCV RDW Plt Count Lymph % (Auto) [place] % (Auto) Lymph # [place] # Seg Neutrophils % Seg Neuts % (Manual) Lymphocytes % (Manual) Monocytes % (Manual) Nucleated RBC % Seg Neutrophils # Seg Neutrophils # Man Lymphocytes # (Manual) Monocytes # (Manual) D-Dimer 886.89 H POC ABG pH 7.197 L ABG pH POC ABG pCO2 45.2 H POC ABG pO2 ABG pO2 ABG O2 Saturation ABG Hemoglobin Oxyhemoglobin Sodium Potassium Chloride Carbon Dioxide BUN Creatinine Glucose POC Glucose 107 H Lactic Acid Calcium Phosphorus Magnesium Total Bilirubin AST NT-Pro-B Natriuret Pep Total Protein Albumin Lipase 07/22/19 07/22/19 07/22/19 21:45 21:45 21:45 WBC RBC Hgb Hct MCV RDW Plt Count Lymph % (Auto) [place] % (Auto) Lymph # [place] # Seg Neutrophils % Seg Neuts % (Manual) Lymphocytes % (Manual) Monocytes % (Manual) Nucleated RBC % Seg Neutrophils # Seg Neutrophils # Man Lymphocytes # (Manual) Monocytes # (Manual) D-Dimer POC ABG pH ABG pH POC ABG pCO2 POC ABG pO2 ABG pO2 ABG O2 Saturation ABG Hemoglobin Oxyhemoglobin Sodium 136 L Potassium 5.6 H Chloride Carbon Dioxide 20 L BUN 38 H Creatinine 2.6 H Glucose 63 L POC Glucose Lactic Acid 3.10 H* Calcium 8.2 L Phosphorus Magnesium Total Bilirubin AST NT-Pro-B Natriuret Pep 5407 H Total Protein Albumin Lipase 07/23/19 07/23/19 07/23/19 02:11 02:50 02:50 WBC 15.0 H RBC Hgb Hct MCV 95 H RDW Plt Count 118 L Lymph % (Auto) [place] % (Auto) Lymph # [place] # Seg Neutrophils % Seg Neuts % (Manual) Lymphocytes % (Manual) 9.0 L Monocytes % (Manual) 17.0 H Nucleated RBC % Seg Neutrophils # Seg Neutrophils # Man Lymphocytes # (Manual) Monocytes # (Manual) 2.6 H D-Dimer POC ABG pH ABG pH POC ABG pCO2 POC ABG pO2 ABG pO2 ABG O2 Saturation ABG Hemoglobin Oxyhemoglobin Sodium Potassium Chloride Carbon Dioxide BUN Creatinine Glucose POC Glucose 69 L Lactic Acid 3.30 H* Calcium Phosphorus Magnesium Total Bilirubin AST NT-Pro-B Natriuret Pep Total Protein Albumin Lipase 07/23/19 07/23/19 07/23/19 02:50 03:09 04:30 WBC RBC Hgb Hct MCV RDW Plt Count Lymph % (Auto) [place] % (Auto) Lymph # [place] # Seg Neutrophils % Seg Neuts % (Manual) Lymphocytes % (Manual) Monocytes % (Manual) Nucleated RBC % Seg Neutrophils # Seg Neutrophils # Man Lymphocytes # (Manual) Monocytes # (Manual) D-Dimer POC ABG pH 7.296 L ABG pH POC ABG pCO2 POC ABG pO2 66 L ABG pO2 ABG O2 Saturation ABG Hemoglobin Oxyhemoglobin Sodium 134 L Potassium 7.5 H* D Chloride Carbon Dioxide 21 L BUN 47 H Creatinine 2.7 H Glucose POC Glucose Lactic Acid 3.50 H* Calcium 7.6 L Phosphorus Magnesium 2.90 H Total Bilirubin AST 60 H NT-Pro-B Natriuret Pep Total Protein 5.5 L D Albumin 2.5 L Lipase 07/23/19 07/23/19 07/23/19 07:30 09:03 09:03 WBC RBC Hgb Hct MCV RDW Plt Count Lymph % (Auto) [place] % (Auto) Lymph # [place] # Seg Neutrophils % Seg Neuts % (Manual) Lymphocytes % (Manual) Monocytes % (Manual) Nucleated RBC % Seg Neutrophils # Seg Neutrophils # Man Lymphocytes # (Manual) Monocytes # (Manual) D-Dimer POC ABG pH ABG pH POC ABG pCO2 POC ABG pO2 ABG pO2 ABG O2 Saturation ABG Hemoglobin Oxyhemoglobin Sodium 136 L Potassium 6.6 H* 7.1 H* Chloride Carbon Dioxide 20 L BUN 50 H 49 H Creatinine 2.6 H 2.4 H Glucose 67 L POC Glucose Lactic Acid 4.10 H* Calcium 7.6 L 7.7 L Phosphorus Magnesium Total Bilirubin AST NT-Pro-B Natriuret Pep Total Protein Albumin Lipase 07/23/19 07/23/19 07/23/19 10:52 13:13 14:48 WBC RBC Hgb Hct MCV RDW Plt Count Lymph % (Auto) [place] % (Auto) Lymph # [place] # Seg Neutrophils % Seg Neuts % (Manual) Lymphocytes % (Manual) Monocytes % (Manual) Nucleated RBC % Seg Neutrophils # Seg Neutrophils # Man Lymphocytes # (Manual) Monocytes # (Manual) D-Dimer POC ABG pH 7.280 L ABG pH POC ABG pCO2 48.7 H POC ABG pO2 ABG pO2 ABG O2 Saturation ABG Hemoglobin Oxyhemoglobin Sodium Potassium Chloride Carbon Dioxide BUN Creatinine Glucose POC Glucose 123 H Lactic Acid 4.10 H* Calcium Phosphorus Magnesium Total Bilirubin AST NT-Pro-B Natriuret Pep Total Protein Albumin Lipase 07/23/19 07/23/19 07/23/19 15:56 17:35 Unknown WBC RBC Hgb Hct MCV RDW Plt Count Lymph % (Auto) [place] % (Auto) Lymph # [place] # Seg Neutrophils % Seg Neuts % (Manual) Lymphocytes % (Manual) Monocytes % (Manual) Nucleated RBC % Seg Neutrophils # Seg Neutrophils # Man Lymphocytes # (Manual) Monocytes # (Manual) D-Dimer POC ABG pH ABG pH POC ABG pCO2 POC ABG pO2 ABG pO2 ABG O2 Saturation ABG Hemoglobin Oxyhemoglobin Sodium Potassium Chloride Carbon Dioxide BUN Creatinine Glucose POC Glucose Lactic Acid 3.00 H* 4.10 H* 4.90 H* Calcium Phosphorus Magnesium Total Bilirubin AST NT-Pro-B Natriuret Pep Total Protein Albumin Lipase 07/23/19 07/24/19 07/24/19 Unknown 00:05 00:40 WBC RBC Hgb Hct MCV RDW Plt Count Lymph % (Auto) [place] % (Auto) Lymph # [place] # Seg Neutrophils % Seg Neuts % (Manual) Lymphocytes % (Manual) Monocytes % (Manual) Nucleated RBC % Seg Neutrophils # Seg Neutrophils # Man Lymphocytes # (Manual) Monocytes # (Manual) D-Dimer POC ABG pH ABG pH POC ABG pCO2 POC ABG pO2 ABG pO2 151.3 H ABG O2 Saturation ABG Hemoglobin Oxyhemoglobin Sodium Potassium 5.6 H D Chloride Carbon Dioxide BUN 29 H Creatinine Glucose 128 H POC Glucose 118 H Lactic Acid Calcium 7.4 L Phosphorus Magnesium Total Bilirubin AST NT-Pro-B Natriuret Pep Total Protein Albumin Lipase 07/24/19 07/24/19 07/24/19 04:00 05:37 05:37 WBC RBC Hgb Hct MCV RDW Plt Count 89 L Lymph % (Auto) [place] % (Auto) Lymph # [place] # Seg Neutrophils % Seg Neuts % (Manual) Lymphocytes % (Manual) 5.0 L Monocytes % (Manual) Nucleated RBC % Seg Neutrophils # Seg Neutrophils # Man Lymphocytes # (Manual) 0.5 L Monocytes # (Manual) D-Dimer POC ABG pH ABG pH POC ABG pCO2 POC ABG pO2 ABG pO2 ABG O2 Saturation ABG Hemoglobin Oxyhemoglobin Sodium Potassium Chloride Carbon Dioxide BUN 29 H Creatinine Glucose 120 H POC Glucose 123 H Lactic Acid Calcium 7.4 L Phosphorus 2.30 L D Magnesium Total Bilirubin 1.40 H AST 107 H NT-Pro-B Natriuret Pep Total Protein 5.3 L Albumin 2.5 L Lipase 07/24/19 07/24/19 07/24/19 05:37 10:18 18:44 WBC RBC Hgb Hct MCV RDW Plt Count Lymph % (Auto) [place] % (Auto) Lymph # [place] # Seg Neutrophils % Seg Neuts % (Manual) Lymphocytes % (Manual) Monocytes % (Manual) Nucleated RBC % Seg Neutrophils # Seg Neutrophils # Man Lymphocytes # (Manual) Monocytes # (Manual) D-Dimer POC ABG pH 7.464 H ABG pH POC ABG pCO2 POC ABG pO2 125 H ABG pO2 ABG O2 Saturation ABG Hemoglobin Oxyhemoglobin Sodium Potassium Chloride Carbon Dioxide BUN Creatinine Glucose POC Glucose 130 H Lactic Acid 3.90 H* Calcium Phosphorus Magnesium Total Bilirubin AST NT-Pro-B Natriuret Pep Total Protein Albumin Lipase 07/24/19 07/25/19 07/25/19 18:52 04:45 04:45 WBC RBC Hgb Hct MCV RDW Plt Count 91 L Lymph % (Auto) [place] % (Auto) Lymph # [place] # Seg Neutrophils % Seg Neuts % (Manual) Lymphocytes % (Manual) Monocytes % (Manual) Nucleated RBC % Seg Neutrophils # Seg Neutrophils # Man Lymphocytes # (Manual) Monocytes # (Manual) D-Dimer POC ABG pH ABG pH POC ABG pCO2 POC ABG pO2 ABG pO2 ABG O2 Saturation ABG Hemoglobin Oxyhemoglobin Sodium Potassium Chloride Carbon Dioxide BUN 24 H Creatinine Glucose POC Glucose 107 H Lactic Acid Calcium 7.9 L Phosphorus 2.20 L Magnesium Total Bilirubin AST NT-Pro-B Natriuret Pep Total Protein Albumin Lipase 07/25/19 07/26/19 07/26/19 05:32 02:20 05:00 WBC RBC Hgb Hct MCV RDW Plt Count Lymph % (Auto) [place] % (Auto) Lymph # [place] # Seg Neutrophils % Seg Neuts % (Manual) Lymphocytes % (Manual) Monocytes % (Manual) Nucleated RBC % Seg Neutrophils # Seg Neutrophils # Man Lymphocytes # (Manual) Monocytes # (Manual) D-Dimer POC ABG pH ABG pH POC ABG pCO2 POC ABG pO2 ABG pO2 70.6 L ABG O2 Saturation 94.7 L ABG Hemoglobin 12.0 L Oxyhemoglobin 92.8 L Sodium 148 H Potassium Chloride 112.1 H Carbon Dioxide BUN Creatinine 0.6 L Glucose 71 L POC Glucose 62 L Lactic Acid Calcium 8.3 L Phosphorus Magnesium Total Bilirubin AST NT-Pro-B Natriuret Pep Total Protein Albumin Lipase 07/26/19 07/26/19 07/27/19 05:45 05:47 05:00 WBC 13.1 H RBC Hgb Hct MCV RDW 15.8 H Plt Count 113 L Lymph % (Auto) [place] % (Auto) Lymph # [place] # Seg Neutrophils % Seg Neuts % (Manual) Lymphocytes % (Manual) Monocytes % (Manual) 16.0 H Nucleated RBC % 2.0 H Seg Neutrophils # Seg Neutrophils # Man 8.1 H Lymphocytes # (Manual) Monocytes # (Manual) 2.1 H D-Dimer POC ABG pH ABG pH 7.309 L POC ABG pCO2 POC ABG pO2 ABG pO2 73.3 L ABG O2 Saturation 93.9 L ABG Hemoglobin 12.4 L Oxyhemoglobin 92.1 L Sodium Potassium Chloride Carbon Dioxide BUN Creatinine Glucose POC Glucose 68 L Lactic Acid Calcium Phosphorus Magnesium Total Bilirubin AST NT-Pro-B Natriuret Pep Total Protein Albumin Lipase 07/27/19 07/27/19 07/27/19 05:00 06:10 09:49 WBC RBC Hgb Hct MCV RDW Plt Count Lymph % (Auto) [place] % (Auto) Lymph # [place] # Seg Neutrophils % Seg Neuts % (Manual) Lymphocytes % (Manual) Monocytes % (Manual) Nucleated RBC % Seg Neutrophils # Seg Neutrophils # Man Lymphocytes # (Manual) Monocytes # (Manual) D-Dimer POC ABG pH ABG pH POC ABG pCO2 POC ABG pO2 ABG pO2 ABG O2 Saturation ABG Hemoglobin 12.6 L Oxyhemoglobin 94.2 L Sodium 149 H Potassium Chloride 114.6 H Carbon Dioxide BUN Creatinine Glucose POC Glucose 110 H Lactic Acid Calcium 7.9 L Phosphorus Magnesium Total Bilirubin AST NT-Pro-B Natriuret Pep Total Protein Albumin Lipase 07/28/19 07/28/19 07/29/19 04:12 04:12 05:15 WBC 15.3 H RBC Hgb 11.5 L Hct 34.4 L MCV RDW 15.9 H Plt Count Lymph % (Auto) [place] % (Auto) Lymph # [place] # Seg Neutrophils % Seg Neuts % (Manual) Lymphocytes % (Manual) Monocytes % (Manual) Nucleated RBC % Seg Neutrophils # Seg Neutrophils # Man Lymphocytes # (Manual) Monocytes # (Manual) D-Dimer POC ABG pH ABG pH POC ABG pCO2 POC ABG pO2 ABG pO2 ABG O2 Saturation ABG Hemoglobin Oxyhemoglobin Sodium 149 H 149 H Potassium Chloride 113.3 H 113.9 H Carbon Dioxide BUN Creatinine 0.7 L 0.6 L Glucose 109 H POC Glucose Lactic Acid Calcium 8.0 L 8.0 L Phosphorus Magnesium 1.60 L Total Bilirubin AST NT-Pro-B Natriuret Pep Total Protein 4.2 L D Albumin 2.0 L Lipase 07/29/19 07/29/19 07/29/19 05:34 05:34 17:59 WBC RBC Hgb Hct MCV RDW Plt Count Lymph % (Auto) [place] % (Auto) Lymph # [place] # Seg Neutrophils % Seg Neuts % (Manual) Lymphocytes % (Manual) Monocytes % (Manual) Nucleated RBC % Seg Neutrophils # Seg Neutrophils # Man Lymphocytes # (Manual) Monocytes # (Manual) D-Dimer POC ABG pH ABG pH POC ABG pCO2 46.9 H POC ABG pO2 65 L ABG pO2 ABG O2 Saturation ABG Hemoglobin Oxyhemoglobin Sodium Potassium Chloride Carbon Dioxide BUN Creatinine Glucose POC Glucose 107 H 110 H Lactic Acid Calcium Phosphorus Magnesium Total Bilirubin AST NT-Pro-B Natriuret Pep Total Protein Albumin Lipase 07/30/19 07/30/19 07/30/19 04:46 04:46 05:23 WBC 21.2 H RBC 3.36 L Hgb 10.5 L Hct 31.4 L MCV RDW 15.8 H Plt Count Lymph % (Auto) [place] % (Auto) Lymph # [place] # Seg Neutrophils % Seg Neuts % (Manual) Lymphocytes % (Manual) Monocytes % (Manual) Nucleated RBC % Seg Neutrophils # Seg Neutrophils # Man Lymphocytes # (Manual) Monocytes # (Manual) D-Dimer POC ABG pH 7.344 L ABG pH POC ABG pCO2 48.8 H POC ABG pO2 77 L ABG pO2 ABG O2 Saturation ABG Hemoglobin Oxyhemoglobin Sodium 146 H Potassium Chloride 110.8 H Carbon Dioxide BUN 22 H Creatinine 0.7 L Glucose 101 H POC Glucose Lactic Acid Calcium 7.9 L Phosphorus 4.60 H Magnesium Total Bilirubin AST NT-Pro-B Natriuret Pep Total Protein Albumin Lipase 07/30/19 07/31/19 07/31/19 12:17 04:42 08:10 WBC 15.4 H RBC 3.11 L Hgb 9.8 L Hct 29.3 L MCV RDW 15.8 H Plt Count Lymph % (Auto) [place] % (Auto) Lymph # [place] # Seg Neutrophils % Seg Neuts % (Manual) 81.0 H Lymphocytes % (Manual) 10.0 L Monocytes % (Manual) Nucleated RBC % Seg Neutrophils # Seg Neutrophils # Man 12.5 H Lymphocytes # (Manual) Monocytes # (Manual) D-Dimer POC ABG pH ABG pH POC ABG pCO2 POC ABG pO2 ABG pO2 ABG O2 Saturation ABG Hemoglobin 10.1 L Oxyhemoglobin 94.8 L Sodium Potassium Chloride Carbon Dioxide BUN Creatinine Glucose POC Glucose 107 H Lactic Acid Calcium Phosphorus Magnesium Total Bilirubin AST NT-Pro-B Natriuret Pep Total Protein Albumin Lipase 07/31/19 07/31/19 07/31/19 08:10 12:36 17:56 WBC RBC Hgb Hct MCV RDW Plt Count Lymph % (Auto) [place] % (Auto) Lymph # [place] # Seg Neutrophils % Seg Neuts % (Manual) Lymphocytes % (Manual) Monocytes % (Manual) Nucleated RBC % Seg Neutrophils # Seg Neutrophils # Man Lymphocytes # (Manual) Monocytes # (Manual) D-Dimer POC ABG pH ABG pH POC ABG pCO2 POC ABG pO2 ABG pO2 ABG O2 Saturation ABG Hemoglobin Oxyhemoglobin Sodium 146 H Potassium Chloride 110.2 H Carbon Dioxide BUN 22 H Creatinine 0.7 L Glucose 102 H POC Glucose 119 H 138 H Lactic Acid Calcium 8.3 L Phosphorus Magnesium Total Bilirubin AST NT-Pro-B Natriuret Pep Total Protein Albumin Lipase 08/01/19 08/01/19 08/01/19 00:02 05:15 05:15 WBC 18.0 H RBC 3.12 L Hgb 9.7 L Hct 30.3 L MCV 97 H RDW 16.0 H Plt Count Lymph % (Auto) [place] % (Auto) Lymph # [place] # Seg Neutrophils % Seg Neuts % (Manual) Lymphocytes % (Manual) Monocytes % (Manual) Nucleated RBC % Seg Neutrophils # Seg Neutrophils # Man Lymphocytes # (Manual) Monocytes # (Manual) D-Dimer POC ABG pH ABG pH POC ABG pCO2 POC ABG pO2 ABG pO2 ABG O2 Saturation ABG Hemoglobin Oxyhemoglobin Sodium 149 H Potassium Chloride 112.0 H Carbon Dioxide BUN 28 H Creatinine Glucose POC Glucose 119 H Lactic Acid Calcium Phosphorus 5.60 H D Magnesium Total Bilirubin AST NT-Pro-B Natriuret Pep Total Protein Albumin Lipase 08/01/19 08/01/19 08/01/19 05:47 11:58 18:13 WBC RBC Hgb Hct MCV RDW Plt Count Lymph % (Auto) [place] % (Auto) Lymph # [place] # Seg Neutrophils % Seg Neuts % (Manual) Lymphocytes % (Manual) Monocytes % (Manual) Nucleated RBC % Seg Neutrophils # Seg Neutrophils # Man Lymphocytes # (Manual) Monocytes # (Manual) D-Dimer POC ABG pH ABG pH POC ABG pCO2 POC ABG pO2 ABG pO2 ABG O2 Saturation ABG Hemoglobin Oxyhemoglobin Sodium Potassium Chloride Carbon Dioxide BUN Creatinine Glucose POC Glucose 142 H 115 H 113 H Lactic Acid Calcium Phosphorus Magnesium Total Bilirubin AST NT-Pro-B Natriuret Pep Total Protein Albumin Lipase 08/02/19 08/02/19 08/02/19 04:15 04:15 05:16 WBC 14.0 H RBC 3.12 L Hgb 9.6 L Hct 29.3 L MCV RDW 15.3 H Plt Count Lymph % (Auto) 9.9 L [place] % (Auto) 8.6 H Lymph # [place] # 1.2 H Seg Neutrophils % 80.8 H Seg Neuts % (Manual) Lymphocytes % (Manual) Monocytes % (Manual) Nucleated RBC % Seg Neutrophils # 11.3 H Seg Neutrophils # Man Lymphocytes # (Manual) Monocytes # (Manual) D-Dimer POC ABG pH ABG pH POC ABG pCO2 POC ABG pO2 ABG pO2 ABG O2 Saturation ABG Hemoglobin Oxyhemoglobin Sodium 148 H Potassium Chloride 109.7 H Carbon Dioxide 32 H BUN Creatinine Glucose 113 H POC Glucose 113 H Lactic Acid Calcium Phosphorus 1.90 L D Magnesium Total Bilirubin AST NT-Pro-B Natriuret Pep Total Protein Albumin Lipase 08/02/19 08/02/19 08/03/19 11:53 18:07 00:48 WBC RBC Hgb Hct MCV RDW Plt Count Lymph % (Auto) [place] % (Auto) Lymph # [place] # Seg Neutrophils % Seg Neuts % (Manual) Lymphocytes % (Manual) Monocytes % (Manual) Nucleated RBC % Seg Neutrophils # Seg Neutrophils # Man Lymphocytes # (Manual) Monocytes # (Manual) D-Dimer POC ABG pH ABG pH POC ABG pCO2 POC ABG pO2 ABG pO2 ABG O2 Saturation ABG Hemoglobin Oxyhemoglobin Sodium Potassium Chloride Carbon Dioxide BUN Creatinine Glucose POC Glucose 123 H 112 H 117 H Lactic Acid Calcium Phosphorus Magnesium Total Bilirubin AST NT-Pro-B Natriuret Pep Total Protein Albumin Lipase 08/03/19 08/03/19 08/03/19 06:08 06:15 12:01 WBC RBC Hgb Hct MCV RDW Plt Count Lymph % (Auto) [place] % (Auto) Lymph # [place] # Seg Neutrophils % Seg Neuts % (Manual) Lymphocytes % (Manual) Monocytes % (Manual) Nucleated RBC % Seg Neutrophils # Seg Neutrophils # Man Lymphocytes # (Manual) Monocytes # (Manual) D-Dimer POC ABG pH ABG pH POC ABG pCO2 POC ABG pO2 ABG pO2 ABG O2 Saturation ABG Hemoglobin Oxyhemoglobin Sodium 148 H Potassium Chloride 110.5 H Carbon Dioxide BUN Creatinine Glucose 104 H POC Glucose 113 H 124 H Lactic Acid Calcium 7.9 L Phosphorus Magnesium Total Bilirubin AST NT-Pro-B Natriuret Pep Total Protein Albumin Lipase 08/03/19 08/04/19 08/04/19 18:20 05:40 05:40 WBC RBC 3.09 L Hgb 9.8 L Hct 28.5 L MCV RDW Plt Count Lymph % (Auto) [place] % (Auto) 9.0 H Lymph # [place] # 1.0 H Seg Neutrophils % 72.6 H Seg Neuts % (Manual) Lymphocytes % (Manual) Monocytes % (Manual) Nucleated RBC % Seg Neutrophils # 7.9 H Seg Neutrophils # Man Lymphocytes # (Manual) Monocytes # (Manual) D-Dimer POC ABG pH ABG pH POC ABG pCO2 POC ABG pO2 ABG pO2 ABG O2 Saturation ABG Hemoglobin Oxyhemoglobin Sodium 147 H Potassium Chloride 109.6 H Carbon Dioxide BUN Creatinine 0.6 L Glucose 108 H POC Glucose 115 H Lactic Acid Calcium 8.0 L Phosphorus Magnesium Total Bilirubin AST NT-Pro-B Natriuret Pep Total Protein Albumin Lipase 08/04/19 08/04/19 08/04/19 06:07 12:29 16:49 WBC RBC Hgb Hct MCV RDW Plt Count Lymph % (Auto) [place] % (Auto) Lymph # [place] # Seg Neutrophils % Seg Neuts % (Manual) Lymphocytes % (Manual) Monocytes % (Manual) Nucleated RBC % Seg Neutrophils # Seg Neutrophils # Man Lymphocytes # (Manual) Monocytes # (Manual) D-Dimer POC ABG pH ABG pH POC ABG pCO2 POC ABG pO2 ABG pO2 ABG O2 Saturation ABG Hemoglobin Oxyhemoglobin Sodium Potassium Chloride Carbon Dioxide BUN Creatinine Glucose POC Glucose 110 H 110 H 110 H Lactic Acid Calcium Phosphorus Magnesium Total Bilirubin AST NT-Pro-B Natriuret Pep Total Protein Albumin Lipase 08/05/19 08/05/19 08/05/19 00:14 04:00 05:20 WBC RBC 2.87 L Hgb 9.1 L Hct 26.8 L MCV RDW Plt Count Lymph % (Auto) [place] % (Auto) 10.7 H Lymph # [place] # 1.0 H Seg Neutrophils % Seg Neuts % (Manual) Lymphocytes % (Manual) Monocytes % (Manual) Nucleated RBC % Seg Neutrophils # Seg Neutrophils # Man Lymphocytes # (Manual) Monocytes # (Manual) D-Dimer POC ABG pH ABG pH POC ABG pCO2 POC ABG pO2 ABG pO2 ABG O2 Saturation ABG Hemoglobin Oxyhemoglobin Sodium Potassium Chloride Carbon Dioxide BUN Creatinine 0.6 L Glucose POC Glucose 117 H Lactic Acid Calcium 7.7 L Phosphorus Magnesium Total Bilirubin AST NT-Pro-B Natriuret Pep Total Protein Albumin Lipase 08/05/19 08/05/19 08/06/19 12:25 19:37 00:34 WBC RBC Hgb Hct MCV RDW Plt Count Lymph % (Auto) [place] % (Auto) Lymph # [place] # Seg Neutrophils % Seg Neuts % (Manual) Lymphocytes % (Manual) Monocytes % (Manual) Nucleated RBC % Seg Neutrophils # Seg Neutrophils # Man Lymphocytes # (Manual) Monocytes # (Manual) D-Dimer POC ABG pH ABG pH POC ABG pCO2 POC ABG pO2 ABG pO2 ABG O2 Saturation ABG Hemoglobin Oxyhemoglobin Sodium Potassium Chloride Carbon Dioxide BUN Creatinine Glucose POC Glucose 114 H 108 H 116 H Lactic Acid Calcium Phosphorus Magnesium Total Bilirubin AST NT-Pro-B Natriuret Pep Total Protein Albumin Lipase 08/06/19 08/06/19 04:45 05:34 WBC RBC Hgb Hct MCV RDW Plt Count Lymph % (Auto) [place] % (Auto) Lymph # [place] # Seg Neutrophils % Seg Neuts % (Manual) Lymphocytes % (Manual) Monocytes % (Manual) Nucleated RBC % Seg Neutrophils # Seg Neutrophils # Man Lymphocytes # (Manual) Monocytes # (Manual) D-Dimer POC ABG pH ABG pH POC ABG pCO2 POC ABG pO2 ABG pO2 ABG O2 Saturation ABG Hemoglobin Oxyhemoglobin Sodium Potassium Chloride Carbon Dioxide BUN Creatinine 0.5 L Glucose 109 H POC Glucose 110 H Lactic Acid Calcium 8.1 L Phosphorus Magnesium Total Bilirubin AST NT-Pro-B Natriuret Pep Total Protein Albumin Lipase
[2019-08-06] MEDS ORDERED: SODIUM BICARBONATE 325 MG TAB FEEDTUBE PRN ×2 (13:03→15:09)
[2019-08-06] MEDS ORDERED: SIMPLE SYRUP 15 ML FEEDTUBE PRN ×4 (13:03→15:09)
[2019-08-06] MEDS ORDERED: LIPASE 10,500/PROTEASE 25,000/AMYLASE 43,750 (UNITS) DR CAP FEEDTUBE PRN ×2 (13:03→15:09)
--- NOTE | 2019-08-06 15:07 | Progress Note ---
Assessment and Plan Cont present cardiac management. Consider stress test to r/o ischemic CMP once medically stabilized. Will follow peripherally. The patient has been seen in conjunction with Dr. Gutiérrez who agrees with the assessment and plan of care. - Patient Problems (1) Acute respiratory failure Current Visit: Yes Status: Acute Qualifiers: Respiratory failure complication: hypoxia Qualified Code(s): J96.01 - Acute respiratory failure with hypoxia (2) Ischemic necrosis of large intestine Current Visit: Yes Status: Acute (3) Constipation Current Visit: Yes Status: Acute (4) Intractable vomiting with nausea Current Visit: Yes Status: Acute (5) Sinus tachycardia Current Visit: Yes Status: Resolved (6) Hypotension Current Visit: Yes Status: Resolved (7) Acute renal failure Current Visit: Yes Status: Acute (8) Hyperkalemia Current Visit: Yes Status: Acute (9) Leukocytosis Current Visit: Yes Status: Acute (10) Lactic acidosis Current Visit: Yes Status: Acute (11) Elevated d-dimer Current Visit: Yes Status: Acute (12) Cardiomyopathy Current Visit: Yes Status: Acute Qualifiers: Cardiomyopathy type: unspecified Qualified Code(s): I42.9 - Cardiomyopathy, unspecified Subjective Date of service: 08/06/19 Principal diagnosis: Respiratory Failure Interval history: no apparent distress, in SR HR 70s on telemetry. Objective Last Vital Signs Temp 98.2 F 08/06/19 12:00 Pulse 70 08/06/19 14:32 Resp 19 08/06/19 14:00 BP 165/89 08/06/19 14:32 Pulse Ox 100 08/06/19 14:00 - Physical Examination General: No Apparent Distress Neck: Positive: neck supple, trachea midline Cardiac: Positive: Reg Rate and Rhythm, S1/S2 Lungs: Positive: Decreased Breath Sounds Neuro: Positive: Other (awake) Abdomen: Positive: Other Skin: Positive: Other (abdominal surgical site). Negative: Rash Extremities: Absent: edema - Labs and Meds Comprehensive Metabolic Panel 08/06/19 Range/Units 04:45 Sodium 142 (137-145) mmol/L Potassium 3.8 (3.6-5.0) mmol/L Chloride 106.4 (98-107) mmol/L Carbon Dioxide 28 (22-30) mmol/L BUN 13 (9-20) mg/dL Creatinine 0.5 L (0.8-1.5) mg/dL Glucose 109 H (75-100) mg/dL Calcium 8.1 L (8.4-10.2) mg/dL - Imaging and Cardiology EKG: report reviewed, image reviewed Stress echo: report reviewed, image reviewed Echo: report reviewed ( EF 25-30%, LV mildly dilated, impaired relaxation, trivial pericardial effusion, mod pleural effusion. ) - EKG Sinus rhythms and dysrhythmias: sinus tachycardia
--- NOTE | 2019-08-06 15:37 | Progress Note ---
Assessment and Plan 07/21/2019 blood culture: No growth 07/30/2019 urine culture: no growth A/P: 19-year-old male with Down syndrome admitted with severe constipation and fecal impaction: 1) Fever: ?pneumonia v/s intra-abdominal source. Persist in spite of abx. CXR with b/l opacities, likely combination of fluid, atelectasis but HAP also possible. Will switch abx. 2) Initial septic shock: resolved. intra-abdominal source. s/p ex-lap on 07/23/2019, findings of multiple distinct areas of necrosis on transverse colon. Rest of intestines were normal. Gen. Surg following (see #4). 3) Acute renal failure: resolved. Creatinine normal. Dose adjust abx accordingly. 4) Fecal impaction, colonic distention with necrosis and shock: s/p ex-lap on 07/23/2019, findings of multiple distinct areas of necrosis on transverse colon. rest of intestines were normal. Gen. Surg following, s/p washout on 07/26/2019 along with abdominal colectomy with ileosigmoid anastomosis, open abdomen. Underwent abdominal closure on 07/28/2019. Slow return of bowel function. 5) Acute respiratory failure: extubated 07/31/2019. CXR with b/l opacities, fluid overload v/s atelectasis v/s pneumonia. Recs: Fevers resolving, continue Meropenem + Vancomycin CT was without acute infectious etiology patient seems to be improving, will consider stepping down antibiotics in next day or two. Yves Simons MD [facility] M: [phone] O: [phone] F: [phone] Subjective Date of service: 08/06/19 Principal diagnosis: Respiratory Failure Interval history: Persistent fevers, normal white count today. Objective - Exam Narrative Exam: Physical Exam: Constitutional: Asleep, drowsy Head, Ears, Nose: Normocephalic, atraumatic. External ears, nose normal. NG tube + Eyes: Conjunctivae/corneas clear. No icterus. No ptosis. Neck: supple, no meningeal signs Cardiovascular: S1, S2 normal. Respiratory: scattered rhonchi bilaterally GI: soft, midline dressing +, drain +, bowel sounds hypo. Mcpherson + Musculoskeletal: No pedal edema, no cyanosis. Skin: No rash or abscess Hem/Lymphatic: No palpable cervical or supraclavicular nodes. No lymphangitis Psych: no agitation Neurological: awake, alert - Constitutional Vitals: Vital Signs Temp Pulse Resp BP Pulse Ox 98.2 F 70 19 165/89 100 08/06/19 12:00 08/06/19 14:32 08/06/19 14:00 08/06/19 14:32 08/06/19 14:00 Temperature -Last 24 Hours Temperature 98.2 F Temperature 97.8 F Temperature 98.6 F Temperature 99.6 F Temperature 99.6 F Temperature 99.4 F Temperature 99.1 F - Labs CBC & Chem 7: 08/05/19 05:20 08/06/19 04:45 Labs: Abnormal lab results 08/05/19 08/06/19 08/06/19 Range/Units 19:37 00:34 04:45 Creatinine 0.5 L (0.8-1.5) mg/dL Glucose 109 H (75-100) mg/dL POC Glucose 108 H 116 H (70-105) Calcium 8.1 L (8.4-10.2) mg/dL 08/06/19 Range/Units 05:34 Creatinine (0.8-1.5) mg/dL Glucose (75-100) mg/dL POC Glucose 110 H (70-105) Calcium (8.4-10.2) mg/dL
[2019-08-06] MEDS ORDERED: FAT EMULSIONS 20% 250 ML IV SCH (20:00)
[2019-08-06] MEDS ORDERED: TOTAL PARENTERAL NUTRITION 2,400 ML IV SCH ×2 (20:00)
[2019-08-07] MEDS: VANCOMYCIN 2,000 MG in SODIUM CHLORIDE 0.9% 500 ML 500 ML IV SCH ×2 (01:46→14:12)
[2019-08-07 05:18] LABS: BUN/Creatinine Ratio 22; Blood Urea Nitrogen 11 mg/dL (9-20); Calcium 7.9 mg/dL (8.4-10.2); Hemolysis Index 1
[2019-08-07] MEDS ORDERED: LIPASE 10,500/PROTEASE 25,000/AMYLASE 43,750 (UNITS) DR CAP FEEDTUBE PRN (08:10)
[2019-08-07] MEDS ORDERED: SIMPLE SYRUP 15 ML FEEDTUBE PRN ×2 (08:10)
[2019-08-07] MEDS ORDERED: SODIUM BICARBONATE 325 MG TAB FEEDTUBE PRN (08:10)
[2019-08-07] MEDS: METOPROLOL TARTRATE 5 MG/5 ML INJ IV SCH ×3 (08:50→21:35)
--- NOTE | 2019-08-07 09:07 | Progress Note ---
Assessment and Plan - Patient Problems (1) Ischemic necrosis of large intestine Current Visit: Yes Status: Acute Plan to address problem: s/p ex-lap with partial colon resection (07/23) - POD#15; s/p abdominal colectomy with ileocolostomy (07/26) - POD#12; s/p abdominal reexploration, peritoneal lavage, closure of open abdomen, placement of URMILA drain (07/28) POD# 10 Plan: 1. neuro - stable. Has been very sleepy. 2. CV - DVT ppx. CBC normalized 3. Resp - Left pleural effusion - new since last CXR on 07/23. Has congested cough as well. Probably component of atelectasis as well. 4. GI - NPO, TPN. Ileus appears to be resolving. Would continue with tube feeds at 10cc/hr until he has a BM. Then, can advance as tolerated to goal. In a couple of days, if he is tolerating the trickle feeds and he still has not had a BM, then will consider adding a scheduled laxative. We will plan to remove URMILA drain once he resumes bowel function. 5. - lee for strict I/Os. Consider condom cath. 6. ID - abx per ID. 7. Endo - blood glucose monitoring per protocol 8. FEN - BMP daily, replace lytes as needed. TPN Dispo - IMCU. From my standpoint, would be ok for LTAC once he begins having bowel movements. Thank you, please call with questions. Subjective Date of service: 08/07/19 Patient Reports: Positive: no flatus, no bowel movement, other (no issues o/n. No residuals). Negative: fever Objective Vital Signs - 12hr 08/06/19 08/06/19 08/06/19 21:11 21:31 22:00 Temperature Pulse Rate 83 75 71 Pulse Rate [ From Monitor] Respiratory 17 20 Rate Blood Pressure 136/71 136/71 141/91 O2 Sat by Pulse 100 100 Oximetry 08/06/19 08/06/19 08/06/19 22:31 22:41 23:00 Temperature Pulse Rate 73 83 84 Pulse Rate [ From Monitor] Respiratory 23 20 27 H Rate Blood Pressure 141/91 141/91 155/91 O2 Sat by Pulse 100 100 100 Oximetry 08/06/19 08/06/19 08/07/19 23:05 23:31 00:00 Temperature 99.1 F Pulse Rate 75 75 76 Pulse Rate [ 75 From Monitor] Respiratory 19 25 H 26 H Rate Blood Pressure 155/91 141/91 139/78 O2 Sat by Pulse 100 73 L 95 Oximetry 08/07/19 08/07/19 08/07/19 00:31 01:00 01:31 Temperature Pulse Rate 87 71 81 Pulse Rate [ From Monitor] Respiratory 19 22 22 Rate Blood Pressure 155/91 147/87 147/87 O2 Sat by Pulse 100 93 93 Oximetry 08/07/19 08/07/19 08/07/19 02:00 02:31 03:00 Temperature Pulse Rate 76 65 82 Pulse Rate [ From Monitor] Respiratory 19 21 25 H Rate Blood Pressure 148/90 148/90 156/86 O2 Sat by Pulse 94 82 L 100 Oximetry 08/07/19 08/07/19 08/07/19 03:31 04:00 04:20 Temperature 98.3 F Pulse Rate 68 71 Pulse Rate [ 74 From Monitor] Respiratory 21 24 Rate Blood Pressure 156/86 145/85 O2 Sat by Pulse 100 100 Oximetry 08/07/19 08/07/19 08/07/19 04:31 05:00 05:31 Temperature Pulse Rate 68 88 Pulse Rate [ From Monitor] Respiratory 24 26 H Rate Blood Pressure 145/85 154/79 O2 Sat by Pulse 96 97 96 Oximetry 08/07/19 08/07/19 08/07/19 06:00 06:31 07:01 Temperature Pulse Rate 76 69 95 H Pulse Rate [ From Monitor] Respiratory 22 21 27 H Rate Blood Pressure 151/79 151/79 148/78 O2 Sat by Pulse 98 95 87 Oximetry 08/07/19 08:59 Temperature Pulse Rate Pulse Rate [ From Monitor] Respiratory Rate Blood Pressure O2 Sat by Pulse 96 Oximetry - General physical appearance no distress, no pain - Respiratory normal expansion, normal respiratory effort - Abdomen soft, not tender, bowel sounds hypoactive, not distended, not guarding, not rigid, other (URMILA with serous drainage.) - Labs 08/05/19 05:20 08/07/19 04:20 Diabetes panel 08/07/19 Range/Units 04:20 Sodium 143 (137-145) mmol/L Potassium 3.6 (3.6-5.0) mmol/L Chloride 106.9 (98-107) mmol/L Carbon Dioxide 27 (22-30) mmol/L BUN 11 (9-20) mg/dL Creatinine 0.5 L (0.8-1.5) mg/dL Glucose 97 (75-100) mg/dL Calcium 7.9 L (8.4-10.2) mg/dL Calcium panel 08/07/19 Range/Units 04:20 Calcium 7.9 L (8.4-10.2) mg/dL Pituitary panel 08/07/19 Range/Units 04:20 Sodium 143 (137-145) mmol/L Potassium 3.6 (3.6-5.0) mmol/L Chloride 106.9 (98-107) mmol/L Carbon Dioxide 27 (22-30) mmol/L BUN 11 (9-20) mg/dL Creatinine 0.5 L (0.8-1.5) mg/dL Glucose 97 (75-100) mg/dL Calcium 7.9 L (8.4-10.2) mg/dL Adrenal panel 08/07/19 Range/Units 04:20 Sodium 143 (137-145) mmol/L Potassium 3.6 (3.6-5.0) mmol/L Chloride 106.9 (98-107) mmol/L Carbon Dioxide 27 (22-30) mmol/L BUN 11 (9-20) mg/dL Creatinine 0.5 L (0.8-1.5) mg/dL Glucose 97 (75-100) mg/dL Calcium 7.9 L (8.4-10.2) mg/dL
[2019-08-07] MEDS: VALPROATE SODIUM 500 MG in SODIUM CHLORIDE 0.9% 100 ML IV SCH ×2 (10:33→21:36)
[2019-08-07] MEDS: ENOXAPARIN 40 MG/0.4 ML INJ SUB-Q SCH (10:33)
[2019-08-07] MEDS: FLUCONAZOLE 400 MG 200 ML IV SCH (10:33)
[2019-08-07] MEDS: FAMOTIDINE 20 MG/2 ML INJ IV SCH ×2 (10:34→21:35)
--- NOTE | 2019-08-07 13:11 | Progress Note ---
Assessment and Plan 07/21/2019 blood culture: No growth 07/30/2019 urine culture: no growth A/P: 19-year-old male with Down syndrome admitted with severe constipation and fecal impaction: 1) Fever: ?pneumonia v/s intra-abdominal source. Persist in spite of abx. CXR with b/l opacities, likely combination of fluid, atelectasis but HAP also possible. Will switch abx. 2) Initial septic shock: resolved. intra-abdominal source. s/p ex-lap on 07/23/2019, findings of multiple distinct areas of necrosis on transverse colon. Rest of intestines were normal. Gen. Surg following (see #4). 3) Acute renal failure: resolved. Creatinine normal. Dose adjust abx accordingly. 4) Fecal impaction, colonic distention with necrosis and shock: s/p ex-lap on 07/23/2019, findings of multiple distinct areas of necrosis on transverse colon. rest of intestines were normal. Gen. Surg following, s/p washout on 07/26/2019 along with abdominal colectomy with ileosigmoid anastomosis, open abdomen. Underwent abdominal closure on 07/28/2019. Slow return of bowel function. 5) Acute respiratory failure: extubated 07/31/2019. CXR with b/l opacities, fluid overload v/s atelectasis v/s pneumonia. Recs: Fevers resolving, continue Meropenem + Vancomycin CT was without acute infectious etiology patient seems to be improving, will consider stepping down antibiotics if remains afebrile tomorrow. Yves Simons MD [facility] M: [phone] O: [phone] F: [phone] Subjective Date of service: 08/07/19 Principal diagnosis: Respiratory Failure Interval history: Afebrile today. Objective - Exam Narrative Exam: Physical Exam: Constitutional: Asleep, drowsy Head, Ears, Nose: Normocephalic, atraumatic. External ears, nose normal. NG tube + Eyes: Conjunctivae/corneas clear. No icterus. No ptosis. Neck: supple, no meningeal signs Cardiovascular: S1, S2 normal. Respiratory: scattered rhonchi bilaterally GI: soft, midline dressing +, drain +, bowel sounds hypo. [place] + Musculoskeletal: No pedal edema, no cyanosis. Skin: No rash or abscess Hem/Lymphatic: No palpable cervical or supraclavicular nodes. No lymphangitis Psych: no agitation Neurological: awake, alert - Constitutional Vitals: Vital Signs Temp Pulse Resp BP Pulse Ox 98.8 F 67 18 141/79 99 08/07/19 12:00 08/07/19 12:00 08/07/19 12:00 08/07/19 12:00 08/07/19 12:00 Temperature -Last 24 Hours Temperature 98.8 F Temperature 98.9 F Temperature 98.3 F Temperature 99.1 F Temperature 98.5 F Temperature 98.5 F - Labs CBC & Chem 7: 08/05/19 05:20 08/07/19 04:20 Labs: Abnormal lab results 08/06/19 08/07/19 08/07/19 Range/Units 18:18 00:03 04:20 Creatinine 0.5 L (0.8-1.5) mg/dL POC Glucose 112 H 112 H (70-105) Calcium 7.9 L (8.4-10.2) mg/dL 08/07/19 08/07/19 Range/Units 06:17 11:50 Creatinine (0.8-1.5) mg/dL POC Glucose 115 H 122 H (70-105) Calcium (8.4-10.2) mg/dL
[2019-08-07] MEDS: MEROPENEM/NS 1 GRAM/100 ML 1 GRAM/100 ML BAG IV SCH ×4 (14:00→21:38)
--- NOTE | 2019-08-07 14:00 | Progress Note ---
Assessment and Plan 19 y/o male with acute respiratory failure s/p exploratory lap x 2 now on TPN, continuous NG suction and continued sedation. 1. Reviewed surgery note, and I appreciate very much their recs. Will continue feeds at current rate and see if bowels move. 2. Wean FiO2 for sats>88% and patient comfort. 3. Continue TPN for now along with trickle feeds. 4. Monitor for BM and stability, [facility] Subjective Date of service: 08/07/19 Principal diagnosis: Respiratory Failure Interval history: Successful transfer to [facility]. NO BM's yet. Tolerating low dose/trickle feeds. Objective Vital Signs - 12hr 08/07/19 08/07/19 08/07/19 02:00 02:31 03:00 Temperature Pulse Rate 76 65 82 Pulse Rate [ From Monitor] Respiratory 19 21 25 H Rate Blood Pressure 148/90 148/90 156/86 O2 Sat by Pulse 94 82 L 100 Oximetry 08/07/19 08/07/19 08/07/19 03:31 04:00 04:20 Temperature 98.3 F Pulse Rate 68 71 Pulse Rate [ 74 From Monitor] Respiratory 21 24 Rate Blood Pressure 156/86 145/85 O2 Sat by Pulse 100 100 Oximetry 08/07/19 08/07/19 08/07/19 04:31 05:00 05:31 Temperature Pulse Rate 68 88 Pulse Rate [ From Monitor] Respiratory 24 26 H Rate Blood Pressure 145/85 154/79 O2 Sat by Pulse 96 97 96 Oximetry 08/07/19 08/07/19 08/07/19 06:00 06:31 07:01 Temperature Pulse Rate 76 69 95 H Pulse Rate [ From Monitor] Respiratory 22 21 27 H Rate Blood Pressure 151/79 151/79 148/78 O2 Sat by Pulse 98 95 87 Oximetry 08/07/19 08/07/19 08/07/19 08:00 08:50 08:59 Temperature 98.9 F Pulse Rate 79 78 Pulse Rate [ 77 From Monitor] Respiratory 18 Rate Blood Pressure 142/89 142/89 O2 Sat by Pulse 89 96 Oximetry 08/07/19 08/07/19 08/07/19 09:00 10:00 11:00 Temperature Pulse Rate 74 77 70 Pulse Rate [ From Monitor] Respiratory 22 20 20 Rate Blood Pressure 143/83 131/84 129/79 O2 Sat by Pulse 95 94 Oximetry 08/07/19 12:00 Temperature 98.8 F Pulse Rate 84 Pulse Rate [ 67 From Monitor] Respiratory 14 Rate Blood Pressure 141/79 O2 Sat by Pulse 93 Oximetry Constitutional: no acute distress Eyes: non-icteric ENT: oropharynx moist Neck: supple Effort: normal Ascultation: Bilateral: diminished breath sounds (due to obesity) Cardiovascular: regular rate and rhythm Gastrointestinal: normoactive bowel sounds, soft, other (morbidly obese abd) Integumentary: normal Extremities: no cyanosis, no edema, pink and warm Neurologic: normal mental status, non-focal exam, pupils equal and round, other (on vent) Psychiatric: mood appropriate, affect normal CBC and BMP: 08/05/19 05:20 08/07/19 04:20 ABG, PT/INR, D-dimer: ABG POC ABG pH 7.344 (7.35-7.45) L 07/30/19 05:23 ABG pH 7.406 pH Units (7.350-7.450) 07/31/19 04:42 POC ABG pCO2 48.8 (35-45) H 07/30/19 05:23 ABG pCO2 42.4 mm Hg 07/31/19 04:42 POC ABG pO2 77 (80-105) L 07/30/19 05:23 ABG pO2 85.1 mm Hg (80.0-90.0) 07/31/19 04:42 POC ABG HCO3 26.6 (22-26 mml/L) 07/30/19 05:23 POC ABG Total CO2 28 (23-27mmol/L) 07/30/19 05:23 POC ABG O2 Sat 94 07/30/19 05:23 ABG O2 Saturation 96.7 % (95.0-99.0) 07/31/19 04:42 PT/INR, D-dimer D-Dimer 886.89 ng/mlDDU (0-234) H 07/22/19 21:45 Abnormal lab findings: Abnormal Labs 07/21/19 07/21/19 07/22/19 19:02 19:02 10:50 WBC 12.1 H 13.7 H RBC 5.56 H Hgb 17.1 H Hct 52.9 H D MCV 95 H 95 H RDW Plt Count 130 L 137 L Lymph % (Auto) 7.2 L [place] % (Auto) 9.6 H Lymph # 0.9 L [place] # 1.2 H Seg Neutrophils % 82.8 H Seg Neuts % (Manual) Lymphocytes % (Manual) Monocytes % (Manual) Nucleated RBC % Seg Neutrophils # 10.0 H Seg Neutrophils # Man Lymphocytes # (Manual) Monocytes # (Manual) D-Dimer POC ABG pH ABG pH POC ABG pCO2 POC ABG pO2 ABG pO2 ABG O2 Saturation ABG Hemoglobin Oxyhemoglobin Sodium 136 L Potassium Chloride 95.9 L Carbon Dioxide BUN Creatinine Glucose 163 H POC Glucose Lactic Acid Calcium Phosphorus Magnesium Total Bilirubin AST NT-Pro-B Natriuret Pep Total Protein Albumin Lipase 10 L 07/22/19 07/22/19 07/22/19 10:50 15:33 15:33 WBC 13.1 H RBC 5.10 H Hgb 15.9 H Hct 49.0 H MCV 96 H RDW Plt Count 127 L Lymph % (Auto) [place] % (Auto) Lymph # [place] # Seg Neutrophils % Seg Neuts % (Manual) Lymphocytes % (Manual) Monocytes % (Manual) Nucleated RBC % Seg Neutrophils # Seg Neutrophils # Man Lymphocytes # (Manual) Monocytes # (Manual) D-Dimer POC ABG pH ABG pH POC ABG pCO2 POC ABG pO2 ABG pO2 ABG O2 Saturation ABG Hemoglobin Oxyhemoglobin Sodium 136 L Potassium 5.3 H D 6.0 H Chloride 96.7 L Carbon Dioxide 17 L BUN 22 H 29 H Creatinine 2.0 H D 2.2 H Glucose 129 H 121 H POC Glucose Lactic Acid Calcium 8.2 L Phosphorus 4.70 H Magnesium 3.10 H Total Bilirubin AST NT-Pro-B Natriuret Pep Total Protein Albumin Lipase 07/22/19 07/22/19 07/22/19 18:19 18:42 21:45 WBC RBC Hgb Hct MCV RDW Plt Count Lymph % (Auto) [place] % (Auto) Lymph # [place] # Seg Neutrophils % Seg Neuts % (Manual) Lymphocytes % (Manual) Monocytes % (Manual) Nucleated RBC % Seg Neutrophils # Seg Neutrophils # Man Lymphocytes # (Manual) Monocytes # (Manual) D-Dimer 886.89 H POC ABG pH 7.197 L ABG pH POC ABG pCO2 45.2 H POC ABG pO2 ABG pO2 ABG O2 Saturation ABG Hemoglobin Oxyhemoglobin Sodium Potassium Chloride Carbon Dioxide BUN Creatinine Glucose POC Glucose 107 H Lactic Acid Calcium Phosphorus Magnesium Total Bilirubin AST NT-Pro-B Natriuret Pep Total Protein Albumin Lipase 07/22/19 07/22/19 07/22/19 21:45 21:45 21:45 WBC RBC Hgb Hct MCV RDW Plt Count Lymph % (Auto) [place] % (Auto) Lymph # [place] # Seg Neutrophils % Seg Neuts % (Manual) Lymphocytes % (Manual) Monocytes % (Manual) Nucleated RBC % Seg Neutrophils # Seg Neutrophils # Man Lymphocytes # (Manual) Monocytes # (Manual) D-Dimer POC ABG pH ABG pH POC ABG pCO2 POC ABG pO2 ABG pO2 ABG O2 Saturation ABG Hemoglobin Oxyhemoglobin Sodium 136 L Potassium 5.6 H Chloride Carbon Dioxide 20 L BUN 38 H Creatinine 2.6 H Glucose 63 L POC Glucose Lactic Acid 3.10 H* Calcium 8.2 L Phosphorus Magnesium Total Bilirubin AST NT-Pro-B Natriuret Pep 5407 H Total Protein Albumin Lipase 07/23/19 07/23/19 07/23/19 02:11 02:50 02:50 WBC 15.0 H RBC Hgb Hct MCV 95 H RDW Plt Count 118 L Lymph % (Auto) [place] % (Auto) Lymph # [place] # Seg Neutrophils % Seg Neuts % (Manual) Lymphocytes % (Manual) 9.0 L Monocytes % (Manual) 17.0 H Nucleated RBC % Seg Neutrophils # Seg Neutrophils # Man Lymphocytes # (Manual) Monocytes # (Manual) 2.6 H D-Dimer POC ABG pH ABG pH POC ABG pCO2 POC ABG pO2 ABG pO2 ABG O2 Saturation ABG Hemoglobin Oxyhemoglobin Sodium Potassium Chloride Carbon Dioxide BUN Creatinine Glucose POC Glucose 69 L Lactic Acid 3.30 H* Calcium Phosphorus Magnesium Total Bilirubin AST NT-Pro-B Natriuret Pep Total Protein Albumin Lipase 07/23/19 07/23/19 07/23/19 02:50 03:09 04:30 WBC RBC Hgb Hct MCV RDW Plt Count Lymph % (Auto) [place] % (Auto) Lymph # [place] # Seg Neutrophils % Seg Neuts % (Manual) Lymphocytes % (Manual) Monocytes % (Manual) Nucleated RBC % Seg Neutrophils # Seg Neutrophils # Man Lymphocytes # (Manual) Monocytes # (Manual) D-Dimer POC ABG pH 7.296 L ABG pH POC ABG pCO2 POC ABG pO2 66 L ABG pO2 ABG O2 Saturation ABG Hemoglobin Oxyhemoglobin Sodium 134 L Potassium 7.5 H* D Chloride Carbon Dioxide 21 L BUN 47 H Creatinine 2.7 H Glucose POC Glucose Lactic Acid 3.50 H* Calcium 7.6 L Phosphorus Magnesium 2.90 H Total Bilirubin AST 60 H NT-Pro-B Natriuret Pep Total Protein 5.5 L D Albumin 2.5 L Lipase 07/23/19 07/23/19 07/23/19 07:30 09:03 09:03 WBC RBC Hgb Hct MCV RDW Plt Count Lymph % (Auto) [place] % (Auto) Lymph # [place] # Seg Neutrophils % Seg Neuts % (Manual) Lymphocytes % (Manual) Monocytes % (Manual) Nucleated RBC % Seg Neutrophils # Seg Neutrophils # Man Lymphocytes # (Manual) Monocytes # (Manual) D-Dimer POC ABG pH ABG pH POC ABG pCO2 POC ABG pO2 ABG pO2 ABG O2 Saturation ABG Hemoglobin Oxyhemoglobin Sodium 136 L Potassium 6.6 H* 7.1 H* Chloride Carbon Dioxide 20 L BUN 50 H 49 H Creatinine 2.6 H 2.4 H Glucose 67 L POC Glucose Lactic Acid 4.10 H* Calcium 7.6 L 7.7 L Phosphorus Magnesium Total Bilirubin AST NT-Pro-B Natriuret Pep Total Protein Albumin Lipase 07/23/19 07/23/19 07/23/19 10:52 13:13 14:48 WBC RBC Hgb Hct MCV RDW Plt Count Lymph % (Auto) [place] % (Auto) Lymph # [place] # Seg Neutrophils % Seg Neuts % (Manual) Lymphocytes % (Manual) Monocytes % (Manual) Nucleated RBC % Seg Neutrophils # Seg Neutrophils # Man Lymphocytes # (Manual) Monocytes # (Manual) D-Dimer POC ABG pH 7.280 L ABG pH POC ABG pCO2 48.7 H POC ABG pO2 ABG pO2 ABG O2 Saturation ABG Hemoglobin Oxyhemoglobin Sodium Potassium Chloride Carbon Dioxide BUN Creatinine Glucose POC Glucose 123 H Lactic Acid 4.10 H* Calcium Phosphorus Magnesium Total Bilirubin AST NT-Pro-B Natriuret Pep Total Protein Albumin Lipase 07/23/19 07/23/19 07/23/19 15:56 17:35 Unknown WBC RBC Hgb Hct MCV RDW Plt Count Lymph % (Auto) [place] % (Auto) Lymph # [place] # Seg Neutrophils % Seg Neuts % (Manual) Lymphocytes % (Manual) Monocytes % (Manual) Nucleated RBC % Seg Neutrophils # Seg Neutrophils # Man Lymphocytes # (Manual) Monocytes # (Manual) D-Dimer POC ABG pH ABG pH POC ABG pCO2 POC ABG pO2 ABG pO2 ABG O2 Saturation ABG Hemoglobin Oxyhemoglobin Sodium Potassium Chloride Carbon Dioxide BUN Creatinine Glucose POC Glucose Lactic Acid 3.00 H* 4.10 H* 4.90 H* Calcium Phosphorus Magnesium Total Bilirubin AST NT-Pro-B Natriuret Pep Total Protein Albumin Lipase 07/23/19 07/24/19 07/24/19 Unknown 00:05 00:40 WBC RBC Hgb Hct MCV RDW Plt Count Lymph % (Auto) [place] % (Auto) Lymph # [place] # Seg Neutrophils % Seg Neuts % (Manual) Lymphocytes % (Manual) Monocytes % (Manual) Nucleated RBC % Seg Neutrophils # Seg Neutrophils # Man Lymphocytes # (Manual) Monocytes # (Manual) D-Dimer POC ABG pH ABG pH POC ABG pCO2 POC ABG pO2 ABG pO2 151.3 H ABG O2 Saturation ABG Hemoglobin Oxyhemoglobin Sodium Potassium 5.6 H D Chloride Carbon Dioxide BUN 29 H Creatinine Glucose 128 H POC Glucose 118 H Lactic Acid Calcium 7.4 L Phosphorus Magnesium Total Bilirubin AST NT-Pro-B Natriuret Pep Total Protein Albumin Lipase 07/24/19 07/24/19 07/24/19 04:00 05:37 05:37 WBC RBC Hgb Hct MCV RDW Plt Count 89 L Lymph % (Auto) [place] % (Auto) Lymph # [place] # Seg Neutrophils % Seg Neuts % (Manual) Lymphocytes % (Manual) 5.0 L Monocytes % (Manual) Nucleated RBC % Seg Neutrophils # Seg Neutrophils # Man Lymphocytes # (Manual) 0.5 L Monocytes # (Manual) D-Dimer POC ABG pH ABG pH POC ABG pCO2 POC ABG pO2 ABG pO2 ABG O2 Saturation ABG Hemoglobin Oxyhemoglobin Sodium Potassium Chloride Carbon Dioxide BUN 29 H Creatinine Glucose 120 H POC Glucose 123 H Lactic Acid Calcium 7.4 L Phosphorus 2.30 L D Magnesium Total Bilirubin 1.40 H AST 107 H NT-Pro-B Natriuret Pep Total Protein 5.3 L Albumin 2.5 L Lipase 07/24/19 07/24/19 07/24/19 05:37 10:18 18:44 WBC RBC Hgb Hct MCV RDW Plt Count Lymph % (Auto) [place] % (Auto) Lymph # [place] # Seg Neutrophils % Seg Neuts % (Manual) Lymphocytes % (Manual) Monocytes % (Manual) Nucleated RBC % Seg Neutrophils # Seg Neutrophils # Man Lymphocytes # (Manual) Monocytes # (Manual) D-Dimer POC ABG pH 7.464 H ABG pH POC ABG pCO2 POC ABG pO2 125 H ABG pO2 ABG O2 Saturation ABG Hemoglobin Oxyhemoglobin Sodium Potassium Chloride Carbon Dioxide BUN Creatinine Glucose POC Glucose 130 H Lactic Acid 3.90 H* Calcium Phosphorus Magnesium Total Bilirubin AST NT-Pro-B Natriuret Pep Total Protein Albumin Lipase 07/24/19 07/25/19 07/25/19 18:52 04:45 04:45 WBC RBC Hgb Hct MCV RDW Plt Count 91 L Lymph % (Auto) [place] % (Auto) Lymph # [place] # Seg Neutrophils % Seg Neuts % (Manual) Lymphocytes % (Manual) Monocytes % (Manual) Nucleated RBC % Seg Neutrophils # Seg Neutrophils # Man Lymphocytes # (Manual) Monocytes # (Manual) D-Dimer POC ABG pH ABG pH POC ABG pCO2 POC ABG pO2 ABG pO2 ABG O2 Saturation ABG Hemoglobin Oxyhemoglobin Sodium Potassium Chloride Carbon Dioxide BUN 24 H Creatinine Glucose POC Glucose 107 H Lactic Acid Calcium 7.9 L Phosphorus 2.20 L Magnesium Total Bilirubin AST NT-Pro-B Natriuret Pep Total Protein Albumin Lipase 07/25/19 07/26/19 07/26/19 05:32 02:20 05:00 WBC RBC Hgb Hct MCV RDW Plt Count Lymph % (Auto) [place] % (Auto) Lymph # [place] # Seg Neutrophils % Seg Neuts % (Manual) Lymphocytes % (Manual) Monocytes % (Manual) Nucleated RBC % Seg Neutrophils # Seg Neutrophils # Man Lymphocytes # (Manual) Monocytes # (Manual) D-Dimer POC ABG pH ABG pH POC ABG pCO2 POC ABG pO2 ABG pO2 70.6 L ABG O2 Saturation 94.7 L ABG Hemoglobin 12.0 L Oxyhemoglobin 92.8 L Sodium 148 H Potassium Chloride 112.1 H Carbon Dioxide BUN Creatinine 0.6 L Glucose 71 L POC Glucose 62 L Lactic Acid Calcium 8.3 L Phosphorus Magnesium Total Bilirubin AST NT-Pro-B Natriuret Pep Total Protein Albumin Lipase 07/26/19 07/26/19 07/27/19 05:45 05:47 05:00 WBC 13.1 H RBC Hgb Hct MCV RDW 15.8 H Plt Count 113 L Lymph % (Auto) [place] % (Auto) Lymph # [place] # Seg Neutrophils % Seg Neuts % (Manual) Lymphocytes % (Manual) Monocytes % (Manual) 16.0 H Nucleated RBC % 2.0 H Seg Neutrophils # Seg Neutrophils # Man 8.1 H Lymphocytes # (Manual) Monocytes # (Manual) 2.1 H D-Dimer POC ABG pH ABG pH 7.309 L POC ABG pCO2 POC ABG pO2 ABG pO2 73.3 L ABG O2 Saturation 93.9 L ABG Hemoglobin 12.4 L Oxyhemoglobin 92.1 L Sodium Potassium Chloride Carbon Dioxide BUN Creatinine Glucose POC Glucose 68 L Lactic Acid Calcium Phosphorus Magnesium Total Bilirubin AST NT-Pro-B Natriuret Pep Total Protein Albumin Lipase 07/27/19 07/27/19 07/27/19 05:00 06:10 09:49 WBC RBC Hgb Hct MCV RDW Plt Count Lymph % (Auto) [place] % (Auto) Lymph # [place] # Seg Neutrophils % Seg Neuts % (Manual) Lymphocytes % (Manual) Monocytes % (Manual) Nucleated RBC % Seg Neutrophils # Seg Neutrophils # Man Lymphocytes # (Manual) Monocytes # (Manual) D-Dimer POC ABG pH ABG pH POC ABG pCO2 POC ABG pO2 ABG pO2 ABG O2 Saturation ABG Hemoglobin 12.6 L Oxyhemoglobin 94.2 L Sodium 149 H Potassium Chloride 114.6 H Carbon Dioxide BUN Creatinine Glucose POC Glucose 110 H Lactic Acid Calcium 7.9 L Phosphorus Magnesium Total Bilirubin AST NT-Pro-B Natriuret Pep Total Protein Albumin Lipase 07/28/19 07/28/19 07/29/19 04:12 04:12 05:15 WBC 15.3 H RBC Hgb 11.5 L Hct 34.4 L MCV RDW 15.9 H Plt Count Lymph % (Auto) [place] % (Auto) Lymph # [place] # Seg Neutrophils % Seg Neuts % (Manual) Lymphocytes % (Manual) Monocytes % (Manual) Nucleated RBC % Seg Neutrophils # Seg Neutrophils # Man Lymphocytes # (Manual) Monocytes # (Manual) D-Dimer POC ABG pH ABG pH POC ABG pCO2 POC ABG pO2 ABG pO2 ABG O2 Saturation ABG Hemoglobin Oxyhemoglobin Sodium 149 H 149 H Potassium Chloride 113.3 H 113.9 H Carbon Dioxide BUN Creatinine 0.7 L 0.6 L Glucose 109 H POC Glucose Lactic Acid Calcium 8.0 L 8.0 L Phosphorus Magnesium 1.60 L Total Bilirubin AST NT-Pro-B Natriuret Pep Total Protein 4.2 L D Albumin 2.0 L Lipase 07/29/19 07/29/19 07/29/19 05:34 05:34 17:59 WBC RBC Hgb Hct MCV RDW Plt Count Lymph % (Auto) [place] % (Auto) Lymph # [place] # Seg Neutrophils % Seg Neuts % (Manual) Lymphocytes % (Manual) Monocytes % (Manual) Nucleated RBC % Seg Neutrophils # Seg Neutrophils # Man Lymphocytes # (Manual) Monocytes # (Manual) D-Dimer POC ABG pH ABG pH POC ABG pCO2 46.9 H POC ABG pO2 65 L ABG pO2 ABG O2 Saturation ABG Hemoglobin Oxyhemoglobin Sodium Potassium Chloride Carbon Dioxide BUN Creatinine Glucose POC Glucose 107 H 110 H Lactic Acid Calcium Phosphorus Magnesium Total Bilirubin AST NT-Pro-B Natriuret Pep Total Protein Albumin Lipase 07/30/19 07/30/19 07/30/19 04:46 04:46 05:23 WBC 21.2 H RBC 3.36 L Hgb 10.5 L Hct 31.4 L MCV RDW 15.8 H Plt Count Lymph % (Auto) [place] % (Auto) Lymph # [place] # Seg Neutrophils % Seg Neuts % (Manual) Lymphocytes % (Manual) Monocytes % (Manual) Nucleated RBC % Seg Neutrophils # Seg Neutrophils # Man Lymphocytes # (Manual) Monocytes # (Manual) D-Dimer POC ABG pH 7.344 L ABG pH POC ABG pCO2 48.8 H POC ABG pO2 77 L ABG pO2 ABG O2 Saturation ABG Hemoglobin Oxyhemoglobin Sodium 146 H Potassium Chloride 110.8 H Carbon Dioxide BUN 22 H Creatinine 0.7 L Glucose 101 H POC Glucose Lactic Acid Calcium 7.9 L Phosphorus 4.60 H Magnesium Total Bilirubin AST NT-Pro-B Natriuret Pep Total Protein Albumin Lipase 07/30/19 07/31/19 07/31/19 12:17 04:42 08:10 WBC 15.4 H RBC 3.11 L Hgb 9.8 L Hct 29.3 L MCV RDW 15.8 H Plt Count Lymph % (Auto) [place] % (Auto) Lymph # [place] # Seg Neutrophils % Seg Neuts % (Manual) 81.0 H Lymphocytes % (Manual) 10.0 L Monocytes % (Manual) Nucleated RBC % Seg Neutrophils # Seg Neutrophils # Man 12.5 H Lymphocytes # (Manual) Monocytes # (Manual) D-Dimer POC ABG pH ABG pH POC ABG pCO2 POC ABG pO2 ABG pO2 ABG O2 Saturation ABG Hemoglobin 10.1 L Oxyhemoglobin 94.8 L Sodium Potassium Chloride Carbon Dioxide BUN Creatinine Glucose POC Glucose 107 H Lactic Acid Calcium Phosphorus Magnesium Total Bilirubin AST NT-Pro-B Natriuret Pep Total Protein Albumin Lipase 07/31/19 07/31/19 07/31/19 08:10 12:36 17:56 WBC RBC Hgb Hct MCV RDW Plt Count Lymph % (Auto) [place] % (Auto) Lymph # [place] # Seg Neutrophils % Seg Neuts % (Manual) Lymphocytes % (Manual) Monocytes % (Manual) Nucleated RBC % Seg Neutrophils # Seg Neutrophils # Man Lymphocytes # (Manual) Monocytes # (Manual) D-Dimer POC ABG pH ABG pH POC ABG pCO2 POC ABG pO2 ABG pO2 ABG O2 Saturation ABG Hemoglobin Oxyhemoglobin Sodium 146 H Potassium Chloride 110.2 H Carbon Dioxide BUN 22 H Creatinine 0.7 L Glucose 102 H POC Glucose 119 H 138 H Lactic Acid Calcium 8.3 L Phosphorus Magnesium Total Bilirubin AST NT-Pro-B Natriuret Pep Total Protein Albumin Lipase 08/01/19 08/01/19 08/01/19 00:02 05:15 05:15 WBC 18.0 H RBC 3.12 L Hgb 9.7 L Hct 30.3 L MCV 97 H RDW 16.0 H Plt Count Lymph % (Auto) [place] % (Auto) Lymph # [place] # Seg Neutrophils % Seg Neuts % (Manual) Lymphocytes % (Manual) Monocytes % (Manual) Nucleated RBC % Seg Neutrophils # Seg Neutrophils # Man Lymphocytes # (Manual) Monocytes # (Manual) D-Dimer POC ABG pH ABG pH POC ABG pCO2 POC ABG pO2 ABG pO2 ABG O2 Saturation ABG Hemoglobin Oxyhemoglobin Sodium 149 H Potassium Chloride 112.0 H Carbon Dioxide BUN 28 H Creatinine Glucose POC Glucose 119 H Lactic Acid Calcium Phosphorus 5.60 H D Magnesium Total Bilirubin AST NT-Pro-B Natriuret Pep Total Protein Albumin Lipase 08/01/19 08/01/19 08/01/19 05:47 11:58 18:13 WBC RBC Hgb Hct MCV RDW Plt Count Lymph % (Auto) [place] % (Auto) Lymph # [place] # Seg Neutrophils % Seg Neuts % (Manual) Lymphocytes % (Manual) Monocytes % (Manual) Nucleated RBC % Seg Neutrophils # Seg Neutrophils # Man Lymphocytes # (Manual) Monocytes # (Manual) D-Dimer POC ABG pH ABG pH POC ABG pCO2 POC ABG pO2 ABG pO2 ABG O2 Saturation ABG Hemoglobin Oxyhemoglobin Sodium Potassium Chloride Carbon Dioxide BUN Creatinine Glucose POC Glucose 142 H 115 H 113 H Lactic Acid Calcium Phosphorus Magnesium Total Bilirubin AST NT-Pro-B Natriuret Pep Total Protein Albumin Lipase 08/02/19 08/02/19 08/02/19 04:15 04:15 05:16 WBC 14.0 H RBC 3.12 L Hgb 9.6 L Hct 29.3 L MCV RDW 15.3 H Plt Count Lymph % (Auto) 9.9 L [place] % (Auto) 8.6 H Lymph # [place] # 1.2 H Seg Neutrophils % 80.8 H Seg Neuts % (Manual) Lymphocytes % (Manual) Monocytes % (Manual) Nucleated RBC % Seg Neutrophils # 11.3 H Seg Neutrophils # Man Lymphocytes # (Manual) Monocytes # (Manual) D-Dimer POC ABG pH ABG pH POC ABG pCO2 POC ABG pO2 ABG pO2 ABG O2 Saturation ABG Hemoglobin Oxyhemoglobin Sodium 148 H Potassium Chloride 109.7 H Carbon Dioxide 32 H BUN Creatinine Glucose 113 H POC Glucose 113 H Lactic Acid Calcium Phosphorus 1.90 L D Magnesium Total Bilirubin AST NT-Pro-B Natriuret Pep Total Protein Albumin Lipase 08/02/19 08/02/19 08/03/19 11:53 18:07 00:48 WBC RBC Hgb Hct MCV RDW Plt Count Lymph % (Auto) [place] % (Auto) Lymph # [place] # Seg Neutrophils % Seg Neuts % (Manual) Lymphocytes % (Manual) Monocytes % (Manual) Nucleated RBC % Seg Neutrophils # Seg Neutrophils # Man Lymphocytes # (Manual) Monocytes # (Manual) D-Dimer POC ABG pH ABG pH POC ABG pCO2 POC ABG pO2 ABG pO2 ABG O2 Saturation ABG Hemoglobin Oxyhemoglobin Sodium Potassium Chloride Carbon Dioxide BUN Creatinine Glucose POC Glucose 123 H 112 H 117 H Lactic Acid Calcium Phosphorus Magnesium Total Bilirubin AST NT-Pro-B Natriuret Pep Total Protein Albumin Lipase 08/03/19 08/03/19 08/03/19 06:08 06:15 12:01 WBC RBC Hgb Hct MCV RDW Plt Count Lymph % (Auto) [place] % (Auto) Lymph # [place] # Seg Neutrophils % Seg Neuts % (Manual) Lymphocytes % (Manual) Monocytes % (Manual) Nucleated RBC % Seg Neutrophils # Seg Neutrophils # Man Lymphocytes # (Manual) Monocytes # (Manual) D-Dimer POC ABG pH ABG pH POC ABG pCO2 POC ABG pO2 ABG pO2 ABG O2 Saturation ABG Hemoglobin Oxyhemoglobin Sodium 148 H Potassium Chloride 110.5 H Carbon Dioxide BUN Creatinine Glucose 104 H POC Glucose 113 H 124 H Lactic Acid Calcium 7.9 L Phosphorus Magnesium Total Bilirubin AST NT-Pro-B Natriuret Pep Total Protein Albumin Lipase 08/03/19 08/04/19 08/04/19 18:20 05:40 05:40 WBC RBC 3.09 L Hgb 9.8 L Hct 28.5 L MCV RDW Plt Count Lymph % (Auto) [place] % (Auto) 9.0 H Lymph # [place] # 1.0 H Seg Neutrophils % 72.6 H Seg Neuts % (Manual) Lymphocytes % (Manual) Monocytes % (Manual) Nucleated RBC % Seg Neutrophils # 7.9 H Seg Neutrophils # Man Lymphocytes # (Manual) Monocytes # (Manual) D-Dimer POC ABG pH ABG pH POC ABG pCO2 POC ABG pO2 ABG pO2 ABG O2 Saturation ABG Hemoglobin Oxyhemoglobin Sodium 147 H Potassium Chloride 109.6 H Carbon Dioxide BUN Creatinine 0.6 L Glucose 108 H POC Glucose 115 H Lactic Acid Calcium 8.0 L Phosphorus Magnesium Total Bilirubin AST NT-Pro-B Natriuret Pep Total Protein Albumin Lipase 08/04/19 08/04/19 08/04/19 06:07 12:29 16:49 WBC RBC Hgb Hct MCV RDW Plt Count Lymph % (Auto) [place] % (Auto) Lymph # [place] # Seg Neutrophils % Seg Neuts % (Manual) Lymphocytes % (Manual) Monocytes % (Manual) Nucleated RBC % Seg Neutrophils # Seg Neutrophils # Man Lymphocytes # (Manual) Monocytes # (Manual) D-Dimer POC ABG pH ABG pH POC ABG pCO2 POC ABG pO2 ABG pO2 ABG O2 Saturation ABG Hemoglobin Oxyhemoglobin Sodium Potassium Chloride Carbon Dioxide BUN Creatinine Glucose POC Glucose 110 H 110 H 110 H Lactic Acid Calcium Phosphorus Magnesium Total Bilirubin AST NT-Pro-B Natriuret Pep Total Protein Albumin Lipase 08/05/19 08/05/19 08/05/19 00:14 04:00 05:20 WBC RBC 2.87 L Hgb 9.1 L Hct 26.8 L MCV RDW Plt Count Lymph % (Auto) [place] % (Auto) 10.7 H Lymph # [place] # 1.0 H Seg Neutrophils % Seg Neuts % (Manual) Lymphocytes % (Manual) Monocytes % (Manual) Nucleated RBC % Seg Neutrophils # Seg Neutrophils # Man Lymphocytes # (Manual) Monocytes # (Manual) D-Dimer POC ABG pH ABG pH POC ABG pCO2 POC ABG pO2 ABG pO2 ABG O2 Saturation ABG Hemoglobin Oxyhemoglobin Sodium Potassium Chloride Carbon Dioxide BUN Creatinine 0.6 L Glucose POC Glucose 117 H Lactic Acid Calcium 7.7 L Phosphorus Magnesium Total Bilirubin AST NT-Pro-B Natriuret Pep Total Protein Albumin Lipase 08/05/19 08/05/19 08/06/19 12:25 19:37 00:34 WBC RBC Hgb Hct MCV RDW Plt Count Lymph % (Auto) [place] % (Auto) Lymph # [place] # Seg Neutrophils % Seg Neuts % (Manual) Lymphocytes % (Manual) Monocytes % (Manual) Nucleated RBC % Seg Neutrophils # Seg Neutrophils # Man Lymphocytes # (Manual) Monocytes # (Manual) D-Dimer POC ABG pH ABG pH POC ABG pCO2 POC ABG pO2 ABG pO2 ABG O2 Saturation ABG Hemoglobin Oxyhemoglobin Sodium Potassium Chloride Carbon Dioxide BUN Creatinine Glucose POC Glucose 114 H 108 H 116 H Lactic Acid Calcium Phosphorus Magnesium Total Bilirubin AST NT-Pro-B Natriuret Pep Total Protein Albumin Lipase 08/06/19 08/06/19 08/06/19 04:45 05:34 18:18 WBC RBC Hgb Hct MCV RDW Plt Count Lymph % (Auto) [place] % (Auto) Lymph # [place] # Seg Neutrophils % Seg Neuts % (Manual) Lymphocytes % (Manual) Monocytes % (Manual) Nucleated RBC % Seg Neutrophils # Seg Neutrophils # Man Lymphocytes # (Manual) Monocytes # (Manual) D-Dimer POC ABG pH ABG pH POC ABG pCO2 POC ABG pO2 ABG pO2 ABG O2 Saturation ABG Hemoglobin Oxyhemoglobin Sodium Potassium Chloride Carbon Dioxide BUN Creatinine 0.5 L Glucose 109 H POC Glucose 110 H 112 H Lactic Acid Calcium 8.1 L Phosphorus Magnesium Total Bilirubin AST NT-Pro-B Natriuret Pep Total Protein Albumin Lipase 08/07/19 08/07/19 08/07/19 00:03 04:20 06:17 WBC RBC Hgb Hct MCV RDW Plt Count Lymph % (Auto) [place] % (Auto) Lymph # [place] # Seg Neutrophils % Seg Neuts % (Manual) Lymphocytes % (Manual) Monocytes % (Manual) Nucleated RBC % Seg Neutrophils # Seg Neutrophils # Man Lymphocytes # (Manual) Monocytes # (Manual) D-Dimer POC ABG pH ABG pH POC ABG pCO2 POC ABG pO2 ABG pO2 ABG O2 Saturation ABG Hemoglobin Oxyhemoglobin Sodium Potassium Chloride Carbon Dioxide BUN Creatinine 0.5 L Glucose POC Glucose 112 H 115 H Lactic Acid Calcium 7.9 L Phosphorus Magnesium Total Bilirubin AST NT-Pro-B Natriuret Pep Total Protein Albumin Lipase 08/07/19 11:50 WBC RBC Hgb Hct MCV RDW Plt Count Lymph % (Auto) [place] % (Auto) Lymph # [place] # Seg Neutrophils % Seg Neuts % (Manual) Lymphocytes % (Manual) Monocytes % (Manual) Nucleated RBC % Seg Neutrophils # Seg Neutrophils # Man Lymphocytes # (Manual) Monocytes # (Manual) D-Dimer POC ABG pH ABG pH POC ABG pCO2 POC ABG pO2 ABG pO2 ABG O2 Saturation ABG Hemoglobin Oxyhemoglobin Sodium Potassium Chloride Carbon Dioxide BUN Creatinine Glucose POC Glucose 122 H Lactic Acid Calcium Phosphorus Magnesium Total Bilirubin AST NT-Pro-B Natriuret Pep Total Protein Albumin Lipase
--- NOTE | 2019-08-07 17:35 | Progress Note ---
Assessment and Plan Assessment and plan: Patient is 19 yo with Downs syndrome from [facility]. he initially presented with abdominal pain, nausea and vomiting. he was seen and examined in ED. CT Abd showed severe constipation. he was given Fleets enema, admitted. His BMP was WNL. By next day Cr was 2.2 and he had hyperkalemia of 5.3. Repeat hrs later showed worse Cr 2.2 and Potassium went up to 6.0. and he had developed shortness of breath, desaturation so was transferred to ICU. patient was noted to have ischemic bowel and management is as noted below Pt now saturating well on NC, no longer on high flow 02. Transfered to [facility], started trickle feed 08/06/19, awaiting for BM Per outside b2b sales, pt does not need further eval for the elevated d-dimer since hypoxia has improved. CTA chest discontinued. Acute resp failure with hypoxia s/p intubation, >96 hrs now extubated (07/31/19), on high flow oxygen [employer] following cont aspiration precautions Ischemic Bowel s/p ex lap and resection s/p abdominal colectomy with ileocolostomy (07/26) s/p Open abdominal wound closure 07/28 on TPN ileus improved, pt to start tube feeding trial @ 10cc/hr today per surgery Septic shock due to intra-abdominal source versus possible PNA (HCAP) s/p ex-lap on 07/23/2019, Per surgery findings of multiple distinct areas of necrosis on transverse colon. Rest of intestines were normal. cont IV antibiotics with vancomycin and meropenem as well as IV diflucan CT abd/pelvis on 08/05 showed bibasilar consolidation with small effusions ID following Fecal impaction: s/p ex-lap on 07/23/2019, findings of multiple distinct areas of necrosis on transverse colon. rest of intestines were normal. s/p washout on 07/26/2019 along with abdominal colectomy and ileosigmoid anastomosis with open abdomen. Underwent abdominal closure on 07/28/2019. Improved. Acute metabolic encephalopathy -will cont to monitor clinically COLUMBA due to ATN resolved Nephrology consulted Cardiomyopathy with EF of 25-30% -Cardiology consulted: Ischemic work up when more stable Elevated d-dimer BLE venous doppler u/s neg for DVT will order CTA chest to assess for PE since pt's cr level is normal Lactic acidosis Secondary to ischemic Bowel Hyperkalemia -resolved Hypernatremia resolved Thrombocytopenia -resolved Sinus tachycardia -controlled on IV Lopressor Elevated BP without prior diagnosis of HTN -cont IV Lopressor -PRN IV hydralazine added, monitor BP AOCD -H/H stable, will monitor Seizure disorder -stable, cont home meds -cont seizure precautions Downs syndrome cont supportive care DVT ppx: Lovenox GI ppx: Famotidine code status: full Condition guarded and prognosis poor Agree with transfer to LTAC once patient is able to move BM History Interval history: Patient seen and examined, still stuporous, not following commands, tolerating trickle feeds Hospitalist Physical - Physical exam Narrative exam: General appearance: Present: no acute distress, obese - EENT Eyes: Present: PERRL ENT: clear oral mucosa - Neck Neck: Present: supple - Respiratory Respiratory effort: normal Respiratory: bilateral: rhonchi - Cardiovascular Rhythm: regular Heart Sounds: Present: S1 & S2 - Extremities Extremities: No edema - Abdominal General gastrointestinal: soft, non-tender, non-distended, hypoactive bowel sounds, other (URMILA drain noted) - Psychiatric Psychiatric: other (could not be assessed due to AMS) - Neurologic Neurologic: other (pt is unresponsive) - Constitutional Vitals: Temp Pulse Resp BP Pulse Ox 98.8 F 67 17 132/71 94 08/07/19 12:00 08/07/19 14:14 08/07/19 14:00 08/07/19 15:00 08/07/19 15:00 General appearance: Present: no acute distress, obese Results - Labs CBC & Chem 7: 08/05/19 05:20 08/07/19 04:20 Labs: Laboratory Last Values WBC 9.8 K/mm3 (4.5-11.0) 08/05/19 05:20 RBC 2.87 M/mm3 (3.65-5.03) L 08/05/19 05:20 Hgb 9.1 gm/dl (11.8-15.2) L 08/05/19 05:20 Hct 26.8 % (35.5-45.6) L 08/05/19 05:20 MCV 93 fl (84-94) 08/05/19 05:20 MCH 32 pg (28-32) 08/05/19 05:20 MCHC 34 % (32-34) 08/05/19 05:20 RDW 14.6 % (13.2-15.2) 08/05/19 05:20 Plt Count 258 K/mm3 (140-440) 08/05/19 05:20 Lymph % (Auto) 21.3 % (13.4-35.0) 08/05/19 05:20 [place] % (Auto) 10.7 % (0.0-7.3) H 08/05/19 05:20 Eos % (Auto) 0.8 % (0.0-4.3) 08/05/19 05:20 Baso % (Auto) 0.6 % (0.0-1.8) 08/05/19 05:20 Lymph # 2.1 K/mm3 (1.2-5.4) 08/05/19 05:20 [place] # 1.0 K/mm3 (0.0-0.8) H 08/05/19 05:20 Eos # 0.1 K/mm3 (0.0-0.4) 08/05/19 05:20 Baso # 0.1 K/mm3 (0.0-0.1) 08/05/19 05:20 Add Manual Diff Complete 07/31/19 08:10 Total Counted 100 07/31/19 08:10 Seg Neutrophils % 66.6 % (40.0-70.0) 08/05/19 05:20 Seg Neuts % (Manual) 81.0 % (40.0-70.0) H 07/31/19 08:10 Band Neutrophils % 0 % 07/31/19 08:10 Lymphocytes % (Manual) 10.0 % (13.4-35.0) L 07/31/19 08:10 Reactive Lymphs % (Man) 0 % 07/31/19 08:10 Monocytes % (Manual) 2.0 % (0.0-7.3) 07/31/19 08:10 Eosinophils % (Manual) 0 % (0.0-4.3) 07/31/19 08:10 Basophils % (Manual) 0 % (0.0-1.8) 07/31/19 08:10 Metamyelocytes % 7.0 % 07/31/19 08:10 Myelocytes % 0 % 07/31/19 08:10 Promyelocytes % 0 % 07/31/19 08:10 Blast Cells % 0 % 07/31/19 08:10 Nucleated RBC % Not Reportable 07/31/19 08:10 Seg Neutrophils # 6.5 K/mm3 (1.8-7.7) 08/05/19 05:20 Seg Neutrophils # Man 12.5 K/mm3 (1.8-7.7) H 07/31/19 08:10 Band Neutrophils # 0.0 K/mm3 07/31/19 08:10 Lymphocytes # (Manual) 1.5 K/mm3 (1.2-5.4) 07/31/19 08:10 Abs React Lymphs (Man) 0.0 K/mm3 07/31/19 08:10 Monocytes # (Manual) 0.3 K/mm3 (0.0-0.8) 07/31/19 08:10 Eosinophils # (Manual) 0.0 K/mm3 (0.0-0.4) 07/31/19 08:10 Basophils # (Manual) 0.0 K/mm3 (0.0-0.1) 07/31/19 08:10 Metamyelocytes # 1.1 K/mm3 07/31/19 08:10 Myelocytes # 0.0 K/mm3 07/31/19 08:10 Promyelocytes # 0.0 K/mm3 07/31/19 08:10 Blast Cells # 0.0 K/mm3 07/31/19 08:10 WBC Morphology Not Reportable 07/31/19 08:10 Hypersegmented Neuts Not Reportable 07/31/19 08:10 Hyposegmented Neuts Not Reportable 07/31/19 08:10 Hypogranular Neuts Not Reportable 07/31/19 08:10 Smudge Cells Not Reportable 07/31/19 08:10 Toxic Granulation Not Reportable 07/31/19 08:10 Toxic Vacuolation Not Reportable 07/31/19 08:10 Dohle Bodies Not Reportable 07/31/19 08:10 Pelger-Huet Anomaly Not Reportable 07/31/19 08:10 Alea Rods Not Reportable 07/31/19 08:10 Platelet Estimate Consistent w auto 07/31/19 08:10 Clumped Platelets Not Reportable 07/31/19 08:10 Plt Clumps, EDTA Not Reportable 07/31/19 08:10 Large Platelets Not Reportable 07/31/19 08:10 Giant Platelets Not Reportable 07/31/19 08:10 Platelet Satelliting Not Reportable 07/31/19 08:10 Plt Morphology Comment Not Reportable 07/31/19 08:10 RBC Morphology Not Reportable 07/31/19 08:10 Dimorphic RBCs Not Reportable 07/31/19 08:10 Polychromasia Not Reportable 07/31/19 08:10 Hypochromasia Not Reportable 07/31/19 08:10 Poikilocytosis Not Reportable 07/31/19 08:10 Anisocytosis Few 07/31/19 08:10 Microcytosis Not Reportable 07/31/19 08:10 Macrocytosis Not Reportable 07/31/19 08:10 Spherocytes Not Reportable 07/31/19 08:10 Pappenheimer Bodies Not Reportable 07/31/19 08:10 Sickle Cells Not Reportable 07/31/19 08:10 Target Cells Not Reportable 07/31/19 08:10 Tear Drop Cells Not Reportable 07/31/19 08:10 Ovalocytes Not Reportable 07/31/19 08:10 Helmet Cells Not Reportable 07/31/19 08:10 [place] Bodies Not Reportable 07/31/19 08:10 [place] Rings Not Reportable 07/31/19 08:10 Kaylyn Cells Not Reportable 07/31/19 08:10 Bite Cells Not Reportable 07/31/19 08:10 Crenated Cell Not Reportable 07/31/19 08:10 Elliptocytes Not Reportable 07/31/19 08:10 Acanthocytes (Spur) Not Reportable 07/31/19 08:10 Rouleaux Not Reportable 07/31/19 08:10 Hemoglobin C Crystals Not Reportable 07/31/19 08:10 Schistocytes Not Reportable 07/31/19 08:10 Malaria parasites Not Reportable 07/31/19 08:10 Emanuel Bodies Not Reportable 07/31/19 08:10 Hem Pathologist Commnt No 07/31/19 08:10 D-Dimer 886.89 ng/mlDDU (0-234) H 07/22/19 21:45 Heparin Anti-Xa, Unfract Negative (Negative) 07/24/19 09:18 POC ABG pH 7.344 (7.35-7.45) L 07/30/19 05:23 ABG pH 7.406 pH Units (7.350-7.450) 07/31/19 04:42 POC ABG pCO2 48.8 (35-45) H 07/30/19 05:23 ABG pCO2 42.4 mm Hg 07/31/19 04:42 POC ABG pO2 77 (80-105) L 07/30/19 05:23 ABG pO2 85.1 mm Hg (80.0-90.0) 07/31/19 04:42 POC ABG HCO3 26.6 (22-26 mml/L) 07/30/19 05:23 ABG HCO3 26.0 mmol/L (20.0-26.0) 07/31/19 04:42 POC ABG Total CO2 28 (23-27mmol/L) 07/30/19 05:23 POC ABG O2 Sat 94 07/30/19 05:23 ABG O2 Saturation 96.7 % (95.0-99.0) 07/31/19 04:42 ABG O2 Content 13.6 (0.0-44) 07/31/19 04:42 POC ABG Base Excess 1 ((-2) - (+3)mmol/L) 07/30/19 05:23 ABG Base Excess 1.2 mmol/L (-2.0-3.0) 07/31/19 04:42 ABG Hemoglobin 10.1 gm/dl (14.0-18.0) L 07/31/19 04:42 ABG Carboxyhemoglobin 1.5 % (0.0-5.0) 07/31/19 04:42 ABG Methemoglobin 0.4 % (0.0-1.5) 07/31/19 04:42 Oxyhemoglobin 94.8 % (95.0-99.0) L 07/31/19 04:42 FiO2 40 % 07/31/19 04:42 Sodium 143 mmol/L (137-145) 08/07/19 04:20 Potassium 3.6 mmol/L (3.6-5.0) 08/07/19 04:20 Chloride 106.9 mmol/L (98-107) 08/07/19 04:20 Carbon Dioxide 27 mmol/L (22-30) 08/07/19 04:20 Anion Gap 13 mmol/L 08/07/19 04:20 BUN 11 mg/dL (9-20) 08/07/19 04:20 Creatinine 0.5 mg/dL (0.8-1.5) L 08/07/19 04:20 Estimated GFR > 60 ml/min 08/07/19 04:20 BUN/Creatinine Ratio 22 % 08/07/19 04:20 Glucose 97 mg/dL (75-100) 08/07/19 04:20 POC Glucose 122 (70-105) H 08/07/19 11:50 Lactic Acid 1.10 mmol/L (0.7-2.0) 07/25/19 09:16 Calcium 7.9 mg/dL (8.4-10.2) L 08/07/19 04:20 Phosphorus 3.50 mg/dL (2.5-4.5) 08/05/19 04:00 Magnesium 1.90 mg/dL (1.7-2.3) 08/05/19 04:00 Total Bilirubin 0.80 mg/dL (0.1-1.2) 07/28/19 04:12 Direct Bilirubin 0.2 mg/dL (0-0.2) 07/21/19 19:02 Indirect Bilirubin 0.4 mg/dL 07/21/19 19:02 AST 20 units/L (5-40) 07/28/19 04:12 ALT 19 units/L (7-56) 07/28/19 04:12 Alkaline Phosphatase 43 units/L (35-129) 07/28/19 04:12 Ammonia 39.0 umol/L (25-60) 07/23/19 02:50 Troponin T < 0.010 ng/mL (0.00-0.029) 07/22/19 15:33 NT-Pro-B Natriuret Pep 5407 pg/mL (0-450) H 07/22/19 21:45 Total Protein 4.2 g/dL (6.3-8.2) L D 07/28/19 04:12 Albumin 2.0 g/dL (3.9-5) L 07/28/19 04:12 Albumin/Globulin Ratio 0.9 % 07/28/19 04:12 Triglycerides 136 mg/dL (2-149) 07/30/19 04:46 Lipase 10 units/L (13-60) L 07/21/19 19:02 Serotonin Release Assay See scanned result 07/24/19 09:18 TSH 0.888 mlU/mL (0.270-4.200) 07/23/19 13:06 Free T4 1.04 ng/dL (0.76-1.46) 07/23/19 13:06 Urine Color Yellow (Yellow) 08/01/19 16:30 Urine Turbidity Clear (Clear) 08/01/19 16:30 Urine pH 6.0 (5.0-7.0) 08/01/19 16:30 Ur Specific [place] 1.015 (1.003-1.030) 08/01/19 16:30 Urine Protein <15 mg/dl mg/dL (Negative) 08/01/19 16:30 Urine Glucose (UA) Neg mg/dL (Negative) 08/01/19 16:30 Urine Ketones Neg mg/dL (Negative) 08/01/19 16:30 Urine Blood Neg (Negative) 08/01/19 16:30 Urine Nitrite Neg (Negative) 08/01/19 16:30 Urine Bilirubin Neg (Negative) 08/01/19 16:30 Urine Ictotest Negative (Negative) 07/21/19 21:36 Urine Urobilinogen < 2.0 mg/dL (<2.0) 08/01/19 16:30 Ur Leukocyte Esterase Tr (Negative) 08/01/19 16:30 Urine WBC (Auto) 6.0 /HPF (0.0-6.0) 08/01/19 16:30 Urine RBC (Auto) 5.0 /HPF (0.0-6.0) 08/01/19 16:30 U Epithel Cells (Auto) < 1.0 /HPF (0-13.0) 08/01/19 16:30 Urine Mucus Few /HPF 08/01/19 16:30 Vancomycin Trough 11.3 ug/mL (5.0-20.0) 08/05/19 01:00 Heparin-induced Plt Ab Negative (Negative) 07/24/19 09:18 UF Heparin High Dose 0 % Release 07/24/19 09:18 GIULIANA UFH Low Dose 0.1 1 % Release 07/24/19 09:18 GIULIANA UFH Low Dose 0.5 0 % Release 07/24/19 09:18 Hepatitis A IgM Ab Non-reactive (NonReactive) 07/23/19 13:06 Hep Bs Antigen Non-reactive (Negative) 07/23/19 13:06 Hep B Core IgM Ab Non-reactive (NonReactive) 07/23/19 13:06 Hepatitis C Antibody Non-reactive (NonReactive) 07/23/19 13:06 Blood Type A POSITIVE 07/28/19 04:12 Antibody Screen Negative 07/28/19 04:12 Active Medications - Current Medications Current Medications: Generic Name Dose Route Start Last Admin Trade Name Freq PRN Reason Stop Dose Admin Acetaminophen 650 mg 07/23/19 02:48 08/05/19 00:26 Tylenol AL 650 mg Q4H PRN Administration Fever >100.5 Lipase/Protease/Amylase 1 each 08/07/19 08:10 Pancreaze 10,500 Unit FEEDTUBE PRN PRN For Clogged Feeding Tube Enoxaparin Sodium 40 mg 07/27/19 10:00 08/07/19 10:33 Lovenox SUB-Q 40 mg DAILY STEPHEN Administration Famotidine 20 mg 07/24/19 10:00 08/07/19 10:34 Pepcid IV 20 mg BID STEPHEN Administration Haloperidol Lactate 5 mg 07/31/19 18:35 08/01/19 16:27 Haldol IV 5 mg Q6H PRN Administration Agitation Hydralazine HCl 10 mg 08/06/19 11:26 Apresoline IV Q4HR PRN HTN SBP>160 OR DBP>90 Valproate Sodium 500 mg/ 105 mls @ 100 mls/hr 07/24/19 10:00 08/07/19 10:33 Sodium Chloride IV 100 mls/hr Q12HR STEPHEN Administration Fluconazole 200 mls @ 100 mls/hr 07/26/19 15:00 08/07/19 10:33 Diflucan IV 100 mls/hr Q24HR STEPHEN Administration Protocol MEROPENEM/NS 1 GRAM/100 ML 1 gram in 100 mls @ 100 mls/hr 08/03/19 14:00 08/07/19 14:00 Merrem/Ns 1 Gram/100 Ml IV 100 mls/hr Q8HR STEPHEN Administration Protocol Vancomycin HCl 2,000 mg/ 540 mls @ 250 mls/hr 08/04/19 02:00 08/07/19 14:12 Sodium Chloride IV 250 mls/hr Q12H STEPHEN Administration Amino Acids/Electrolytes/Dextrose 2,400 mls @ 100 mls/hr 08/06/19 20:00 08/06/19 20:53 Tpn Adult IV 08/07/19 19:59 100 mls/hr DAILY@1999 STEPHEN Administration Protocol Amino Acids/Electrolytes/Dextrose 2,400 mls @ 100 mls/hr 08/07/19 20:00 Tpn Adult IV 08/08/19 19:59 DAILY@1999 [facility] Protocol Metoprolol Tartrate 5 mg 08/02/19 14:00 08/07/19 14:14 Metoprolol IV 5 mg TID STEPHEN Administration Morphine Sulfate 2 mg 07/31/19 18:36 08/05/19 03:04 Morphine IV 2 mg Q4H PRN Administration Pain, Moderate (4-6) Ondansetron HCl 4 mg 07/21/19 22:25 07/22/19 01:07 Zofran IV 4 mg Q8H PRN Administration Nausea And Vomiting Simple Syrup 15 ml 08/07/19 08:10 Simple Syrup FEEDTUBE PRN PRN Hypoglycemia Simple Syrup 30 ml 08/07/19 08:10 Simple Syrup FEEDTUBE PRN PRN Hypoglycemia Sodium Bicarbonate 325 mg 08/07/19 08:10 Sodium Bicarbonate FEEDTUBE PRN PRN For Clogged Feeding Tube Nutrition/Malnutrition Assess - Dietary Evaluation Nutrition/Malnutrition Findings: Nutrition Notes Start: 07/23/19 10:09 Freq: Status: Active Protocol: Document 08/07/19 10:50 LM (Rec: 08/07/19 11:05 LM [email or web address]) Nutrition Notes Initial or Follow up Reassessment Current Diagnosis Acute Kidney Injury Other Pertinent Diagnosis Necrosis of transverse colon, down syndrome Current Diet TPN at 100mL/hr and Promote 1. 0 at 10 ml/hr Labs/Tests Reviewed Pertinent Medications Reviewed Height 5 ft 7 in Weight 138.3 kg [place] Body Weight (kg) 67.27 BMI 47.7 Subjective/Other Information CPN day 12. Pt tolerating trickle feeds. Notified RN of TF change to osmolite. Per case management pt likely to be d/c to LTAC tomorrow morning Percent of energy/protein needs met: 100%/100% Burn Absent Trauma Absent Minimum of two criteria No physical signs of malnutrition #1 Nutrition Diagnosis Inadequate oral intake Diagnosis Progress(for reassessment Continues documentation) Is patient on ventilator? No Is Patient Ambulatory and/or Out of Bed No REE-([place]-confined to bed) 2816.304 Kcal/Kg value to use for calculation 14 Approximate Energy Requirements Using 1936 kcal/Kg Calculation Used for Recommendations Kcal/kg Additional Notes Pro needs 86-107g (0.8-1.0g/kg /day Adj BW 107.1kg) Fluid needs 1ml/kcal or per MD Nutrition Intervention Change Diet Order: CPN and trickle TF Nutrition Support: Continue CPN at 100mL/hr: 3.3% AA, MVI, MTE, Osmolite 1.5 at 10 ml/hr Flush 30 ml q4hr Kcal 1,870 Protein (gm) 95 Carbohydrates (gm) 399 Fat (gm) 12 Fluid (mL) 2,577 Fiber (gm) 0 Goal #1 Meet kcal/PRO as best as possible with CPN and TF Goal #2 Advance TF Anticipated Discharge Needs: Unable to identify at this time Follow-Up By: 08/08/19 Additional Comments F/U for new TF, TF tolerance, POC
[2019-08-07] MEDS ORDERED: TOTAL PARENTERAL NUTRITION 2,400 ML IV SCH (20:00)
[2019-08-08] MEDS: HALOPERIDOL LACTATE 5 MG/1 ML INJ IV PRN (01:58)
[2019-08-08] MEDS: VANCOMYCIN 2,000 MG in SODIUM CHLORIDE 0.9% 500 ML 500 ML IV SCH ×2 (02:05→14:14)
[2019-08-08] MEDS: MEROPENEM/NS 1 GRAM/100 ML 1 GRAM/100 ML BAG IV SCH ×2 (05:41→14:14)
[2019-08-08] MEDS: MORPHINE 2 MG/1 ML INJ IV PRN ×2 (06:12→17:41)
[2019-08-08] MEDS: METOPROLOL TARTRATE 5 MG/5 ML INJ IV SCH ×2 (07:48→14:13)
[2019-08-08] MEDS: FLUCONAZOLE 400 MG 200 ML IV SCH (09:37)
[2019-08-08] MEDS: VALPROATE SODIUM 500 MG in SODIUM CHLORIDE 0.9% 100 ML IV SCH (09:37)
[2019-08-08] MEDS: FAMOTIDINE 20 MG/2 ML INJ IV SCH (09:38)
[2019-08-08] MEDS: ENOXAPARIN 40 MG/0.4 ML INJ SUB-Q SCH (09:38)
--- NOTE | 2019-08-08 12:12 | Discharge Summary ---
Providers - Providers Date of Admission: 07/23/19 11:10 Attending physician: KENAN BARAKAT MD 07/22/19 12:06 Consult to Physician [CONS] Routine Comment: Consulting Provider: NATI CARREON Physician Instructions: Reason For Exam: COLUMBA due to diarrhea from laxative 07/22/19 18:29 Consult to Physician [CONS] Routine Comment: Consulting Provider: STEFAN VILLALTA Physician Instructions: Reason For Exam: acute resp failure 07/22/19 18:32 Consult to Physician [CONS] Routine Comment: Consulting Provider: CURTIS VALVERDE Physician Instructions: Reason For Exam: tachycardia 07/22/19 20:27 Consult to Physician [CONS] Urgent Comment: Consulting Provider: ASHISH HARVEY Physician Instructions: Reason For Exam: Colonic distention. 07/23/19 10:30 Consult to Physician [CONS] Stat Comment: Consulting Provider: INDIRA SINGER Physician Instructions: Reason For Exam: hemodialysis access 07/23/19 11:41 Consult to Physician [CONS] Routine Comment: Consulting Provider: SOLITARIO CLEMENT Physician Instructions: Reason For Exam: Poss sepsis, fever 07/25/19 22:23 PICC Line Insertion [Consult to PICC Line RN] [CONS] Routine Reason For Exam: Critically ill; needs PICC for TPN/ABX Type Line:: PICC 07/26/19 13:09 Consult to Dietitian/Nutrition [CONS] Routine Physician Instructions: Reason For Exam: Reason for Consult: Write/Manage TPN/PPN 07/30/19 11:25 Consult to PICC Line RN [CONS] Routine Reason For Exam: Please convert midline to picc Type Line:: PICC 07/31/19 13:09 Occupational Therapy Evaluate and Treat [CONS] Routine Comment: Reason For Exam: Debility Physical Therapy Evaluation and Treat [CONS] Routine Comment: Reason For Exam: Debility 08/06/19 13:03 Consult to Dietitian/Nutrition [CONS] Routine Physician Instructions: Assess nutrtn needs, initiate, modify, manage TF Reason For Exam: Reason for Consult: Write/Manage Tube Feeding Reason for Consult: Write/Manage Tube Feeding [facility] Reason for admission: Ischemic bowel Condition: Stable Hospital course: Patient is 19 yo with Downs syndrome from [facility]. he initially presented with abdominal pain, nausea and vomiting. he was seen and examined in ED. CT Abd showed severe constipation. he was given Fleets enema, admitted. His BMP was WNL. By next day Cr was 2.2 and he had hyperkalemia of 5.3. Repeat hrs later showed worse Cr 2.2 and Potassium went up to 6.0. and he had developed shortness of breath, desaturation so was transferred to ICU. patient was noted to have ischemic bowel and management is as noted below Pt now saturating well on NC, no longer on high flow 02. Transfered to [facility], started trickle feed 08/06/19, awaiting for BM Per seismograph recorder, pt does not need further eval for the elevated d-dimer since hypoxia has improved. CTA chest discontinued. s/p ex lap and resection s/p abdominal colectomy with ileocolostomy (07/26) s/p Open abdominal wound closure 07/28 on TPN ileus improved, pt to start tube feeding trial @ 10cc/hr per surgery Tolerating and had BM Follow with Surgery outpatient URMILA drain removed GI - NPO, TPN. Ileus appears to be resolving. Would continue with tube feeds at 10cc/hr until he has a BM. Then, can advance as tolerated to goal. In a couple of days, Ischemic Bowel s/p ex lap and resection s/p abdominal colectomy with ileocolostomy (07/26) s/p Open abdominal wound closure 07/28 on TPN ileus improved, pt to start tube feeding trial @ 10cc/hr today per surgery Left pleural effusion - new since last CXR on 07/23. Has congested cough as well. Probably component of atelectasis as well. Acute resp failure with hypoxia s/p intubation, >96 hrs now extubated (07/31/19), on high flow oxygen [employer] following cont aspiration precautions Septic shock due to intra-abdominal source versus possible PNA (HCAP) s/p ex-lap on 07/23/2019, Per surgery findings of multiple distinct areas of necrosis on transverse colon. Rest of intestines were normal. Treated with IV antibiotics with vancomycin and meropenem as well as IV diflucan AND PER ID considering no further fever will discontinue nad monitor CT abd/pelvis on 08/05 showed bibasilar consolidation with small effusions ID following Fecal impaction: s/p ex-lap on 07/23/2019, findings of multiple distinct areas of necrosis on transverse colon. rest of intestines were normal. s/p washout on 07/26/2019 along with abdominal colectomy and ileosigmoid anastomosis with open abdomen. Underwent abdominal closure on 07/28/2019. Improved. Acute metabolic encephalopathy -will cont to monitor clinically COLUMBA due to ATN resolved Nephrology consulted Cardiomyopathy with EF of 25-30% -Cardiology consulted: Ischemic work up when more stable Elevated d-dimer BLE venous doppler u/s neg for DVT will order CTA chest to assess for PE since pt's cr level is normal Lactic acidosis Secondary to ischemic Bowel Hyperkalemia -resolved Hypernatremia resolved Thrombocytopenia -resolved Sinus tachycardia -controlled on IV Lopressor Elevated BP without prior diagnosis of HTN -cont IV Lopressor -PRN IV hydralazine added, monitor BP AOCD -H/H stable, will monitor Seizure disorder -stable, cont home meds -cont seizure precautions Downs syndrome cont supportive care Disposition: [id number] MEDICARE CERT [facility] Time spent for discharge: 35 mins Core Measure Documentation - Palliative Care Palliative Care/ Comfort Measures: Not Applicable - Core Measures Any of the following diagnoses?: none Exam - Physical Exam Narrative exam: General appearance: Present: no acute distress, obese - EENT Eyes: Present: PERRL ENT: clear oral mucosa - Neck Neck: Present: supple - Respiratory Respiratory effort: normal Respiratory: bilateral: rhonchi - Cardiovascular Rhythm: regular Heart Sounds: Present: S1 & S2 - Extremities Extremities: No edema - Abdominal General gastrointestinal: soft, non-tender, non-distended, hypoactive bowel sounds, other (URMILA drain noted) - Psychiatric Psychiatric: other (could not be assessed due to AMS) - Neurologic Neurologic: other (pt is unresponsive) - Constitutional Vitals: Temp Pulse Resp BP Pulse Ox 98.2 F 90 29 H 145/80 95 08/08/19 08:00 08/08/19 11:00 08/08/19 11:00 08/08/19 11:00 08/08/19 11:00 Plan Activity: advance as tolerated, fall precautions Diet: advance as tolerated Special Instructions: record daily BP diary, record blood sugar diary Follow up with: IZABELLA GOETZ MD [Primary Care Provider] - 3-5 Days ASHISH HARVEY MD [Staff Physician] - 7 Days Prescriptions: Lactulose 10 gm PO DAILY PRN #150 ml PRN Reason: Constipation
--- NOTE | 2019-08-08 12:59 | Progress Note ---
Assessment and Plan 19 y/o male with acute respiratory failure s/p exploratory lap x 2 now on TPN, continuous NG suction and continued sedation. 1. No objection to discharge. 2. Wean FiO2 for sats>88% and patient comfort. 3. Agree with surgery, suggest allowing patient to have a bedside swallow eval rather here or at LTACH. If tolerates, should be able to eat and come off TPN and NG tube can come out. Subjective Date of service: 08/08/19 Principal diagnosis: Respiratory Failure Interval history: No acute events. Had 2 BM's yesterday per charting. Spoke with surgery this am and they are ok with discharge. [facility] has already placed order. Remains on nasal cannula. Drains are out. NG remains. Objective Vital Signs - 12hr 08/08/19 08/08/19 08/08/19 01:01 02:00 03:00 Temperature Pulse Rate 83 91 H 95 H Pulse Rate [ From Monitor] Respiratory 27 H 34 H 25 H Rate Blood Pressure 136/77 141/72 151/85 O2 Sat by Pulse 91 90 98 Oximetry 08/08/19 08/08/19 08/08/19 04:00 05:00 06:00 Temperature 98.4 F Pulse Rate 90 92 H 89 Pulse Rate [ 78 From Monitor] Respiratory 25 H 29 H 28 H Rate Blood Pressure 145/85 150/81 156/84 O2 Sat by Pulse 96 95 98 Oximetry 08/08/19 08/08/19 08/08/19 07:00 07:48 08:00 Temperature 98.2 F Pulse Rate 108 H 97 H 84 Pulse Rate [ 85 From Monitor] Respiratory 26 H 24 Rate Blood Pressure 146/83 146/83 138/84 O2 Sat by Pulse 94 96 Oximetry 08/08/19 08/08/19 08/08/19 09:00 10:00 11:00 Temperature Pulse Rate 87 91 H 90 Pulse Rate [ From Monitor] Respiratory 22 21 29 H Rate Blood Pressure 138/84 151/86 145/80 O2 Sat by Pulse 96 96 95 Oximetry Constitutional: no acute distress Eyes: non-icteric ENT: oropharynx moist Neck: supple Effort: normal Ascultation: Bilateral: diminished breath sounds (due to obesity) Cardiovascular: regular rate and rhythm Gastrointestinal: normoactive bowel sounds, soft, other (morbidly obese abd) Integumentary: normal Extremities: no cyanosis, no edema, pink and warm Neurologic: normal mental status, non-focal exam, pupils equal and round, other (on vent) Psychiatric: mood appropriate, affect normal CBC and BMP: 08/05/19 05:20 08/07/19 04:20 ABG, PT/INR, D-dimer: ABG POC ABG pH 7.344 (7.35-7.45) L 07/30/19 05:23 ABG pH 7.406 pH Units (7.350-7.450) 07/31/19 04:42 POC ABG pCO2 48.8 (35-45) H 07/30/19 05:23 ABG pCO2 42.4 mm Hg 07/31/19 04:42 POC ABG pO2 77 (80-105) L 07/30/19 05:23 ABG pO2 85.1 mm Hg (80.0-90.0) 07/31/19 04:42 POC ABG HCO3 26.6 (22-26 mml/L) 07/30/19 05:23 POC ABG Total CO2 28 (23-27mmol/L) 07/30/19 05:23 POC ABG O2 Sat 94 07/30/19 05:23 ABG O2 Saturation 96.7 % (95.0-99.0) 07/31/19 04:42 PT/INR, D-dimer D-Dimer 886.89 ng/mlDDU (0-234) H 07/22/19 21:45 Abnormal lab findings: Abnormal Labs 07/21/19 07/21/19 07/22/19 19:02 19:02 10:50 WBC 12.1 H 13.7 H RBC 5.56 H Hgb 17.1 H Hct 52.9 H D MCV 95 H 95 H RDW Plt Count 130 L 137 L Lymph % (Auto) 7.2 L [place] % (Auto) 9.6 H Lymph # 0.9 L [place] # 1.2 H Seg Neutrophils % 82.8 H Seg Neuts % (Manual) Lymphocytes % (Manual) Monocytes % (Manual) Nucleated RBC % Seg Neutrophils # 10.0 H Seg Neutrophils # Man Lymphocytes # (Manual) Monocytes # (Manual) D-Dimer POC ABG pH ABG pH POC ABG pCO2 POC ABG pO2 ABG pO2 ABG O2 Saturation ABG Hemoglobin Oxyhemoglobin Sodium 136 L Potassium Chloride 95.9 L Carbon Dioxide BUN Creatinine Glucose 163 H POC Glucose Lactic Acid Calcium Phosphorus Magnesium Total Bilirubin AST NT-Pro-B Natriuret Pep Total Protein Albumin Lipase 10 L 07/22/19 07/22/19 07/22/19 10:50 15:33 15:33 WBC 13.1 H RBC 5.10 H Hgb 15.9 H Hct 49.0 H MCV 96 H RDW Plt Count 127 L Lymph % (Auto) [place] % (Auto) Lymph # [place] # Seg Neutrophils % Seg Neuts % (Manual) Lymphocytes % (Manual) Monocytes % (Manual) Nucleated RBC % Seg Neutrophils # Seg Neutrophils # Man Lymphocytes # (Manual) Monocytes # (Manual) D-Dimer POC ABG pH ABG pH POC ABG pCO2 POC ABG pO2 ABG pO2 ABG O2 Saturation ABG Hemoglobin Oxyhemoglobin Sodium 136 L Potassium 5.3 H D 6.0 H Chloride 96.7 L Carbon Dioxide 17 L BUN 22 H 29 H Creatinine 2.0 H D 2.2 H Glucose 129 H 121 H POC Glucose Lactic Acid Calcium 8.2 L Phosphorus 4.70 H Magnesium 3.10 H Total Bilirubin AST NT-Pro-B Natriuret Pep Total Protein Albumin Lipase 07/22/19 07/22/19 07/22/19 18:19 18:42 21:45 WBC RBC Hgb Hct MCV RDW Plt Count Lymph % (Auto) [place] % (Auto) Lymph # [place] # Seg Neutrophils % Seg Neuts % (Manual) Lymphocytes % (Manual) Monocytes % (Manual) Nucleated RBC % Seg Neutrophils # Seg Neutrophils # Man Lymphocytes # (Manual) Monocytes # (Manual) D-Dimer 886.89 H POC ABG pH 7.197 L ABG pH POC ABG pCO2 45.2 H POC ABG pO2 ABG pO2 ABG O2 Saturation ABG Hemoglobin Oxyhemoglobin Sodium Potassium Chloride Carbon Dioxide BUN Creatinine Glucose POC Glucose 107 H Lactic Acid Calcium Phosphorus Magnesium Total Bilirubin AST NT-Pro-B Natriuret Pep Total Protein Albumin Lipase 07/22/19 07/22/19 07/22/19 21:45 21:45 21:45 WBC RBC Hgb Hct MCV RDW Plt Count Lymph % (Auto) [place] % (Auto) Lymph # [place] # Seg Neutrophils % Seg Neuts % (Manual) Lymphocytes % (Manual) Monocytes % (Manual) Nucleated RBC % Seg Neutrophils # Seg Neutrophils # Man Lymphocytes # (Manual) Monocytes # (Manual) D-Dimer POC ABG pH ABG pH POC ABG pCO2 POC ABG pO2 ABG pO2 ABG O2 Saturation ABG Hemoglobin Oxyhemoglobin Sodium 136 L Potassium 5.6 H Chloride Carbon Dioxide 20 L BUN 38 H Creatinine 2.6 H Glucose 63 L POC Glucose Lactic Acid 3.10 H* Calcium 8.2 L Phosphorus Magnesium Total Bilirubin AST NT-Pro-B Natriuret Pep 5407 H Total Protein Albumin Lipase 07/23/19 07/23/19 07/23/19 02:11 02:50 02:50 WBC 15.0 H RBC Hgb Hct MCV 95 H RDW Plt Count 118 L Lymph % (Auto) [place] % (Auto) Lymph # [place] # Seg Neutrophils % Seg Neuts % (Manual) Lymphocytes % (Manual) 9.0 L Monocytes % (Manual) 17.0 H Nucleated RBC % Seg Neutrophils # Seg Neutrophils # Man Lymphocytes # (Manual) Monocytes # (Manual) 2.6 H D-Dimer POC ABG pH ABG pH POC ABG pCO2 POC ABG pO2 ABG pO2 ABG O2 Saturation ABG Hemoglobin Oxyhemoglobin Sodium Potassium Chloride Carbon Dioxide BUN Creatinine Glucose POC Glucose 69 L Lactic Acid 3.30 H* Calcium Phosphorus Magnesium Total Bilirubin AST NT-Pro-B Natriuret Pep Total Protein Albumin Lipase 07/23/19 07/23/19 07/23/19 02:50 03:09 04:30 WBC RBC Hgb Hct MCV RDW Plt Count Lymph % (Auto) [place] % (Auto) Lymph # [place] # Seg Neutrophils % Seg Neuts % (Manual) Lymphocytes % (Manual) Monocytes % (Manual) Nucleated RBC % Seg Neutrophils # Seg Neutrophils # Man Lymphocytes # (Manual) Monocytes # (Manual) D-Dimer POC ABG pH 7.296 L ABG pH POC ABG pCO2 POC ABG pO2 66 L ABG pO2 ABG O2 Saturation ABG Hemoglobin Oxyhemoglobin Sodium 134 L Potassium 7.5 H* D Chloride Carbon Dioxide 21 L BUN 47 H Creatinine 2.7 H Glucose POC Glucose Lactic Acid 3.50 H* Calcium 7.6 L Phosphorus Magnesium 2.90 H Total Bilirubin AST 60 H NT-Pro-B Natriuret Pep Total Protein 5.5 L D Albumin 2.5 L Lipase 07/23/19 07/23/19 07/23/19 07:30 09:03 09:03 WBC RBC Hgb Hct MCV RDW Plt Count Lymph % (Auto) [place] % (Auto) Lymph # [place] # Seg Neutrophils % Seg Neuts % (Manual) Lymphocytes % (Manual) Monocytes % (Manual) Nucleated RBC % Seg Neutrophils # Seg Neutrophils # Man Lymphocytes # (Manual) Monocytes # (Manual) D-Dimer POC ABG pH ABG pH POC ABG pCO2 POC ABG pO2 ABG pO2 ABG O2 Saturation ABG Hemoglobin Oxyhemoglobin Sodium 136 L Potassium 6.6 H* 7.1 H* Chloride Carbon Dioxide 20 L BUN 50 H 49 H Creatinine 2.6 H 2.4 H Glucose 67 L POC Glucose Lactic Acid 4.10 H* Calcium 7.6 L 7.7 L Phosphorus Magnesium Total Bilirubin AST NT-Pro-B Natriuret Pep Total Protein Albumin Lipase 07/23/19 07/23/19 07/23/19 10:52 13:13 14:48 WBC RBC Hgb Hct MCV RDW Plt Count Lymph % (Auto) [place] % (Auto) Lymph # [place] # Seg Neutrophils % Seg Neuts % (Manual) Lymphocytes % (Manual) Monocytes % (Manual) Nucleated RBC % Seg Neutrophils # Seg Neutrophils # Man Lymphocytes # (Manual) Monocytes # (Manual) D-Dimer POC ABG pH 7.280 L ABG pH POC ABG pCO2 48.7 H POC ABG pO2 ABG pO2 ABG O2 Saturation ABG Hemoglobin Oxyhemoglobin Sodium Potassium Chloride Carbon Dioxide BUN Creatinine Glucose POC Glucose 123 H Lactic Acid 4.10 H* Calcium Phosphorus Magnesium Total Bilirubin AST NT-Pro-B Natriuret Pep Total Protein Albumin Lipase 07/23/19 07/23/19 07/23/19 15:56 17:35 Unknown WBC RBC Hgb Hct MCV RDW Plt Count Lymph % (Auto) [place] % (Auto) Lymph # [place] # Seg Neutrophils % Seg Neuts % (Manual) Lymphocytes % (Manual) Monocytes % (Manual) Nucleated RBC % Seg Neutrophils # Seg Neutrophils # Man Lymphocytes # (Manual) Monocytes # (Manual) D-Dimer POC ABG pH ABG pH POC ABG pCO2 POC ABG pO2 ABG pO2 ABG O2 Saturation ABG Hemoglobin Oxyhemoglobin Sodium Potassium Chloride Carbon Dioxide BUN Creatinine Glucose POC Glucose Lactic Acid 3.00 H* 4.10 H* 4.90 H* Calcium Phosphorus Magnesium Total Bilirubin AST NT-Pro-B Natriuret Pep Total Protein Albumin Lipase 07/23/19 07/24/19 07/24/19 Unknown 00:05 00:40 WBC RBC Hgb Hct MCV RDW Plt Count Lymph % (Auto) [place] % (Auto) Lymph # [place] # Seg Neutrophils % Seg Neuts % (Manual) Lymphocytes % (Manual) Monocytes % (Manual) Nucleated RBC % Seg Neutrophils # Seg Neutrophils # Man Lymphocytes # (Manual) Monocytes # (Manual) D-Dimer POC ABG pH ABG pH POC ABG pCO2 POC ABG pO2 ABG pO2 151.3 H ABG O2 Saturation ABG Hemoglobin Oxyhemoglobin Sodium Potassium 5.6 H D Chloride Carbon Dioxide BUN 29 H Creatinine Glucose 128 H POC Glucose 118 H Lactic Acid Calcium 7.4 L Phosphorus Magnesium Total Bilirubin AST NT-Pro-B Natriuret Pep Total Protein Albumin Lipase 07/24/19 07/24/19 07/24/19 04:00 05:37 05:37 WBC RBC Hgb Hct MCV RDW Plt Count 89 L Lymph % (Auto) [place] % (Auto) Lymph # [place] # Seg Neutrophils % Seg Neuts % (Manual) Lymphocytes % (Manual) 5.0 L Monocytes % (Manual) Nucleated RBC % Seg Neutrophils # Seg Neutrophils # Man Lymphocytes # (Manual) 0.5 L Monocytes # (Manual) D-Dimer POC ABG pH ABG pH POC ABG pCO2 POC ABG pO2 ABG pO2 ABG O2 Saturation ABG Hemoglobin Oxyhemoglobin Sodium Potassium Chloride Carbon Dioxide BUN 29 H Creatinine Glucose 120 H POC Glucose 123 H Lactic Acid Calcium 7.4 L Phosphorus 2.30 L D Magnesium Total Bilirubin 1.40 H AST 107 H NT-Pro-B Natriuret Pep Total Protein 5.3 L Albumin 2.5 L Lipase 07/24/19 07/24/19 07/24/19 05:37 10:18 18:44 WBC RBC Hgb Hct MCV RDW Plt Count Lymph % (Auto) [place] % (Auto) Lymph # [place] # Seg Neutrophils % Seg Neuts % (Manual) Lymphocytes % (Manual) Monocytes % (Manual) Nucleated RBC % Seg Neutrophils # Seg Neutrophils # Man Lymphocytes # (Manual) Monocytes # (Manual) D-Dimer POC ABG pH 7.464 H ABG pH POC ABG pCO2 POC ABG pO2 125 H ABG pO2 ABG O2 Saturation ABG Hemoglobin Oxyhemoglobin Sodium Potassium Chloride Carbon Dioxide BUN Creatinine Glucose POC Glucose 130 H Lactic Acid 3.90 H* Calcium Phosphorus Magnesium Total Bilirubin AST NT-Pro-B Natriuret Pep Total Protein Albumin Lipase 07/24/19 07/25/19 07/25/19 18:52 04:45 04:45 WBC RBC Hgb Hct MCV RDW Plt Count 91 L Lymph % (Auto) [place] % (Auto) Lymph # [place] # Seg Neutrophils % Seg Neuts % (Manual) Lymphocytes % (Manual) Monocytes % (Manual) Nucleated RBC % Seg Neutrophils # Seg Neutrophils # Man Lymphocytes # (Manual) Monocytes # (Manual) D-Dimer POC ABG pH ABG pH POC ABG pCO2 POC ABG pO2 ABG pO2 ABG O2 Saturation ABG Hemoglobin Oxyhemoglobin Sodium Potassium Chloride Carbon Dioxide BUN 24 H Creatinine Glucose POC Glucose 107 H Lactic Acid Calcium 7.9 L Phosphorus 2.20 L Magnesium Total Bilirubin AST NT-Pro-B Natriuret Pep Total Protein Albumin Lipase 07/25/19 07/26/19 07/26/19 05:32 02:20 05:00 WBC RBC Hgb Hct MCV RDW Plt Count Lymph % (Auto) [place] % (Auto) Lymph # [place] # Seg Neutrophils % Seg Neuts % (Manual) Lymphocytes % (Manual) Monocytes % (Manual) Nucleated RBC % Seg Neutrophils # Seg Neutrophils # Man Lymphocytes # (Manual) Monocytes # (Manual) D-Dimer POC ABG pH ABG pH POC ABG pCO2 POC ABG pO2 ABG pO2 70.6 L ABG O2 Saturation 94.7 L ABG Hemoglobin 12.0 L Oxyhemoglobin 92.8 L Sodium 148 H Potassium Chloride 112.1 H Carbon Dioxide BUN Creatinine 0.6 L Glucose 71 L POC Glucose 62 L Lactic Acid Calcium 8.3 L Phosphorus Magnesium Total Bilirubin AST NT-Pro-B Natriuret Pep Total Protein Albumin Lipase 07/26/19 07/26/19 07/27/19 05:45 05:47 05:00 WBC 13.1 H RBC Hgb Hct MCV RDW 15.8 H Plt Count 113 L Lymph % (Auto) [place] % (Auto) Lymph # [place] # Seg Neutrophils % Seg Neuts % (Manual) Lymphocytes % (Manual) Monocytes % (Manual) 16.0 H Nucleated RBC % 2.0 H Seg Neutrophils # Seg Neutrophils # Man 8.1 H Lymphocytes # (Manual) Monocytes # (Manual) 2.1 H D-Dimer POC ABG pH ABG pH 7.309 L POC ABG pCO2 POC ABG pO2 ABG pO2 73.3 L ABG O2 Saturation 93.9 L ABG Hemoglobin 12.4 L Oxyhemoglobin 92.1 L Sodium Potassium Chloride Carbon Dioxide BUN Creatinine Glucose POC Glucose 68 L Lactic Acid Calcium Phosphorus Magnesium Total Bilirubin AST NT-Pro-B Natriuret Pep Total Protein Albumin Lipase 07/27/19 07/27/19 07/27/19 05:00 06:10 09:49 WBC RBC Hgb Hct MCV RDW Plt Count Lymph % (Auto) [place] % (Auto) Lymph # [place] # Seg Neutrophils % Seg Neuts % (Manual) Lymphocytes % (Manual) Monocytes % (Manual) Nucleated RBC % Seg Neutrophils # Seg Neutrophils # Man Lymphocytes # (Manual) Monocytes # (Manual) D-Dimer POC ABG pH ABG pH POC ABG pCO2 POC ABG pO2 ABG pO2 ABG O2 Saturation ABG Hemoglobin 12.6 L Oxyhemoglobin 94.2 L Sodium 149 H Potassium Chloride 114.6 H Carbon Dioxide BUN Creatinine Glucose POC Glucose 110 H Lactic Acid Calcium 7.9 L Phosphorus Magnesium Total Bilirubin AST NT-Pro-B Natriuret Pep Total Protein Albumin Lipase 07/28/19 07/28/19 07/29/19 04:12 04:12 05:15 WBC 15.3 H RBC Hgb 11.5 L Hct 34.4 L MCV RDW 15.9 H Plt Count Lymph % (Auto) [place] % (Auto) Lymph # [place] # Seg Neutrophils % Seg Neuts % (Manual) Lymphocytes % (Manual) Monocytes % (Manual) Nucleated RBC % Seg Neutrophils # Seg Neutrophils # Man Lymphocytes # (Manual) Monocytes # (Manual) D-Dimer POC ABG pH ABG pH POC ABG pCO2 POC ABG pO2 ABG pO2 ABG O2 Saturation ABG Hemoglobin Oxyhemoglobin Sodium 149 H 149 H Potassium Chloride 113.3 H 113.9 H Carbon Dioxide BUN Creatinine 0.7 L 0.6 L Glucose 109 H POC Glucose Lactic Acid Calcium 8.0 L 8.0 L Phosphorus Magnesium 1.60 L Total Bilirubin AST NT-Pro-B Natriuret Pep Total Protein 4.2 L D Albumin 2.0 L Lipase 07/29/19 07/29/19 07/29/19 05:34 05:34 17:59 WBC RBC Hgb Hct MCV RDW Plt Count Lymph % (Auto) [place] % (Auto) Lymph # [place] # Seg Neutrophils % Seg Neuts % (Manual) Lymphocytes % (Manual) Monocytes % (Manual) Nucleated RBC % Seg Neutrophils # Seg Neutrophils # Man Lymphocytes # (Manual) Monocytes # (Manual) D-Dimer POC ABG pH ABG pH POC ABG pCO2 46.9 H POC ABG pO2 65 L ABG pO2 ABG O2 Saturation ABG Hemoglobin Oxyhemoglobin Sodium Potassium Chloride Carbon Dioxide BUN Creatinine Glucose POC Glucose 107 H 110 H Lactic Acid Calcium Phosphorus Magnesium Total Bilirubin AST NT-Pro-B Natriuret Pep Total Protein Albumin Lipase 07/30/19 07/30/19 07/30/19 04:46 04:46 05:23 WBC 21.2 H RBC 3.36 L Hgb 10.5 L Hct 31.4 L MCV RDW 15.8 H Plt Count Lymph % (Auto) [place] % (Auto) Lymph # [place] # Seg Neutrophils % Seg Neuts % (Manual) Lymphocytes % (Manual) Monocytes % (Manual) Nucleated RBC % Seg Neutrophils # Seg Neutrophils # Man Lymphocytes # (Manual) Monocytes # (Manual) D-Dimer POC ABG pH 7.344 L ABG pH POC ABG pCO2 48.8 H POC ABG pO2 77 L ABG pO2 ABG O2 Saturation ABG Hemoglobin Oxyhemoglobin Sodium 146 H Potassium Chloride 110.8 H Carbon Dioxide BUN 22 H Creatinine 0.7 L Glucose 101 H POC Glucose Lactic Acid Calcium 7.9 L Phosphorus 4.60 H Magnesium Total Bilirubin AST NT-Pro-B Natriuret Pep Total Protein Albumin Lipase 07/30/19 07/31/19 07/31/19 12:17 04:42 08:10 WBC 15.4 H RBC 3.11 L Hgb 9.8 L Hct 29.3 L MCV RDW 15.8 H Plt Count Lymph % (Auto) [place] % (Auto) Lymph # [place] # Seg Neutrophils % Seg Neuts % (Manual) 81.0 H Lymphocytes % (Manual) 10.0 L Monocytes % (Manual) Nucleated RBC % Seg Neutrophils # Seg Neutrophils # Man 12.5 H Lymphocytes # (Manual) Monocytes # (Manual) D-Dimer POC ABG pH ABG pH POC ABG pCO2 POC ABG pO2 ABG pO2 ABG O2 Saturation ABG Hemoglobin 10.1 L Oxyhemoglobin 94.8 L Sodium Potassium Chloride Carbon Dioxide BUN Creatinine Glucose POC Glucose 107 H Lactic Acid Calcium Phosphorus Magnesium Total Bilirubin AST NT-Pro-B Natriuret Pep Total Protein Albumin Lipase 07/31/19 07/31/19 07/31/19 08:10 12:36 17:56 WBC RBC Hgb Hct MCV RDW Plt Count Lymph % (Auto) [place] % (Auto) Lymph # [place] # Seg Neutrophils % Seg Neuts % (Manual) Lymphocytes % (Manual) Monocytes % (Manual) Nucleated RBC % Seg Neutrophils # Seg Neutrophils # Man Lymphocytes # (Manual) Monocytes # (Manual) D-Dimer POC ABG pH ABG pH POC ABG pCO2 POC ABG pO2 ABG pO2 ABG O2 Saturation ABG Hemoglobin Oxyhemoglobin Sodium 146 H Potassium Chloride 110.2 H Carbon Dioxide BUN 22 H Creatinine 0.7 L Glucose 102 H POC Glucose 119 H 138 H Lactic Acid Calcium 8.3 L Phosphorus Magnesium Total Bilirubin AST NT-Pro-B Natriuret Pep Total Protein Albumin Lipase 08/01/19 08/01/19 08/01/19 00:02 05:15 05:15 WBC 18.0 H RBC 3.12 L Hgb 9.7 L Hct 30.3 L MCV 97 H RDW 16.0 H Plt Count Lymph % (Auto) [place] % (Auto) Lymph # [place] # Seg Neutrophils % Seg Neuts % (Manual) Lymphocytes % (Manual) Monocytes % (Manual) Nucleated RBC % Seg Neutrophils # Seg Neutrophils # Man Lymphocytes # (Manual) Monocytes # (Manual) D-Dimer POC ABG pH ABG pH POC ABG pCO2 POC ABG pO2 ABG pO2 ABG O2 Saturation ABG Hemoglobin Oxyhemoglobin Sodium 149 H Potassium Chloride 112.0 H Carbon Dioxide BUN 28 H Creatinine Glucose POC Glucose 119 H Lactic Acid Calcium Phosphorus 5.60 H D Magnesium Total Bilirubin AST NT-Pro-B Natriuret Pep Total Protein Albumin Lipase 08/01/19 08/01/19 08/01/19 05:47 11:58 18:13 WBC RBC Hgb Hct MCV RDW Plt Count Lymph % (Auto) [place] % (Auto) Lymph # [place] # Seg Neutrophils % Seg Neuts % (Manual) Lymphocytes % (Manual) Monocytes % (Manual) Nucleated RBC % Seg Neutrophils # Seg Neutrophils # Man Lymphocytes # (Manual) Monocytes # (Manual) D-Dimer POC ABG pH ABG pH POC ABG pCO2 POC ABG pO2 ABG pO2 ABG O2 Saturation ABG Hemoglobin Oxyhemoglobin Sodium Potassium Chloride Carbon Dioxide BUN Creatinine Glucose POC Glucose 142 H 115 H 113 H Lactic Acid Calcium Phosphorus Magnesium Total Bilirubin AST NT-Pro-B Natriuret Pep Total Protein Albumin Lipase 08/02/19 08/02/19 08/02/19 04:15 04:15 05:16 WBC 14.0 H RBC 3.12 L Hgb 9.6 L Hct 29.3 L MCV RDW 15.3 H Plt Count Lymph % (Auto) 9.9 L [place] % (Auto) 8.6 H Lymph # [place] # 1.2 H Seg Neutrophils % 80.8 H Seg Neuts % (Manual) Lymphocytes % (Manual) Monocytes % (Manual) Nucleated RBC % Seg Neutrophils # 11.3 H Seg Neutrophils # Man Lymphocytes # (Manual) Monocytes # (Manual) D-Dimer POC ABG pH ABG pH POC ABG pCO2 POC ABG pO2 ABG pO2 ABG O2 Saturation ABG Hemoglobin Oxyhemoglobin Sodium 148 H Potassium Chloride 109.7 H Carbon Dioxide 32 H BUN Creatinine Glucose 113 H POC Glucose 113 H Lactic Acid Calcium Phosphorus 1.90 L D Magnesium Total Bilirubin AST NT-Pro-B Natriuret Pep Total Protein Albumin Lipase 08/02/19 08/02/19 08/03/19 11:53 18:07 00:48 WBC RBC Hgb Hct MCV RDW Plt Count Lymph % (Auto) [place] % (Auto) Lymph # [place] # Seg Neutrophils % Seg Neuts % (Manual) Lymphocytes % (Manual) Monocytes % (Manual) Nucleated RBC % Seg Neutrophils # Seg Neutrophils # Man Lymphocytes # (Manual) Monocytes # (Manual) D-Dimer POC ABG pH ABG pH POC ABG pCO2 POC ABG pO2 ABG pO2 ABG O2 Saturation ABG Hemoglobin Oxyhemoglobin Sodium Potassium Chloride Carbon Dioxide BUN Creatinine Glucose POC Glucose 123 H 112 H 117 H Lactic Acid Calcium Phosphorus Magnesium Total Bilirubin AST NT-Pro-B Natriuret Pep Total Protein Albumin Lipase 08/03/19 08/03/19 08/03/19 06:08 06:15 12:01 WBC RBC Hgb Hct MCV RDW Plt Count Lymph % (Auto) [place] % (Auto) Lymph # [place] # Seg Neutrophils % Seg Neuts % (Manual) Lymphocytes % (Manual) Monocytes % (Manual) Nucleated RBC % Seg Neutrophils # Seg Neutrophils # Man Lymphocytes # (Manual) Monocytes # (Manual) D-Dimer POC ABG pH ABG pH POC ABG pCO2 POC ABG pO2 ABG pO2 ABG O2 Saturation ABG Hemoglobin Oxyhemoglobin Sodium 148 H Potassium Chloride 110.5 H Carbon Dioxide BUN Creatinine Glucose 104 H POC Glucose 113 H 124 H Lactic Acid Calcium 7.9 L Phosphorus Magnesium Total Bilirubin AST NT-Pro-B Natriuret Pep Total Protein Albumin Lipase 08/03/19 08/04/19 08/04/19 18:20 05:40 05:40 WBC RBC 3.09 L Hgb 9.8 L Hct 28.5 L MCV RDW Plt Count Lymph % (Auto) [place] % (Auto) 9.0 H Lymph # [place] # 1.0 H Seg Neutrophils % 72.6 H Seg Neuts % (Manual) Lymphocytes % (Manual) Monocytes % (Manual) Nucleated RBC % Seg Neutrophils # 7.9 H Seg Neutrophils # Man Lymphocytes # (Manual) Monocytes # (Manual) D-Dimer POC ABG pH ABG pH POC ABG pCO2 POC ABG pO2 ABG pO2 ABG O2 Saturation ABG Hemoglobin Oxyhemoglobin Sodium 147 H Potassium Chloride 109.6 H Carbon Dioxide BUN Creatinine 0.6 L Glucose 108 H POC Glucose 115 H Lactic Acid Calcium 8.0 L Phosphorus Magnesium Total Bilirubin AST NT-Pro-B Natriuret Pep Total Protein Albumin Lipase 08/04/19 08/04/19 08/04/19 06:07 12:29 16:49 WBC RBC Hgb Hct MCV RDW Plt Count Lymph % (Auto) [place] % (Auto) Lymph # [place] # Seg Neutrophils % Seg Neuts % (Manual) Lymphocytes % (Manual) Monocytes % (Manual) Nucleated RBC % Seg Neutrophils # Seg Neutrophils # Man Lymphocytes # (Manual) Monocytes # (Manual) D-Dimer POC ABG pH ABG pH POC ABG pCO2 POC ABG pO2 ABG pO2 ABG O2 Saturation ABG Hemoglobin Oxyhemoglobin Sodium Potassium Chloride Carbon Dioxide BUN Creatinine Glucose POC Glucose 110 H 110 H 110 H Lactic Acid Calcium Phosphorus Magnesium Total Bilirubin AST NT-Pro-B Natriuret Pep Total Protein Albumin Lipase 08/05/19 08/05/19 08/05/19 00:14 04:00 05:20 WBC RBC 2.87 L Hgb 9.1 L Hct 26.8 L MCV RDW Plt Count Lymph % (Auto) [place] % (Auto) 10.7 H Lymph # [place] # 1.0 H Seg Neutrophils % Seg Neuts % (Manual) Lymphocytes % (Manual) Monocytes % (Manual) Nucleated RBC % Seg Neutrophils # Seg Neutrophils # Man Lymphocytes # (Manual) Monocytes # (Manual) D-Dimer POC ABG pH ABG pH POC ABG pCO2 POC ABG pO2 ABG pO2 ABG O2 Saturation ABG Hemoglobin Oxyhemoglobin Sodium Potassium Chloride Carbon Dioxide BUN Creatinine 0.6 L Glucose POC Glucose 117 H Lactic Acid Calcium 7.7 L Phosphorus Magnesium Total Bilirubin AST NT-Pro-B Natriuret Pep Total Protein Albumin Lipase 08/05/19 08/05/19 08/06/19 12:25 19:37 00:34 WBC RBC Hgb Hct MCV RDW Plt Count Lymph % (Auto) [place] % (Auto) Lymph # [place] # Seg Neutrophils % Seg Neuts % (Manual) Lymphocytes % (Manual) Monocytes % (Manual) Nucleated RBC % Seg Neutrophils # Seg Neutrophils # Man Lymphocytes # (Manual) Monocytes # (Manual) D-Dimer POC ABG pH ABG pH POC ABG pCO2 POC ABG pO2 ABG pO2 ABG O2 Saturation ABG Hemoglobin Oxyhemoglobin Sodium Potassium Chloride Carbon Dioxide BUN Creatinine Glucose POC Glucose 114 H 108 H 116 H Lactic Acid Calcium Phosphorus Magnesium Total Bilirubin AST NT-Pro-B Natriuret Pep Total Protein Albumin Lipase 08/06/19 08/06/19 08/06/19 04:45 05:34 18:18 WBC RBC Hgb Hct MCV RDW Plt Count Lymph % (Auto) [place] % (Auto) Lymph # [place] # Seg Neutrophils % Seg Neuts % (Manual) Lymphocytes % (Manual) Monocytes % (Manual) Nucleated RBC % Seg Neutrophils # Seg Neutrophils # Man Lymphocytes # (Manual) Monocytes # (Manual) D-Dimer POC ABG pH ABG pH POC ABG pCO2 POC ABG pO2 ABG pO2 ABG O2 Saturation ABG Hemoglobin Oxyhemoglobin Sodium Potassium Chloride Carbon Dioxide BUN Creatinine 0.5 L Glucose 109 H POC Glucose 110 H 112 H Lactic Acid Calcium 8.1 L Phosphorus Magnesium Total Bilirubin AST NT-Pro-B Natriuret Pep Total Protein Albumin Lipase 08/07/19 08/07/19 08/07/19 00:03 04:20 06:17 WBC RBC Hgb Hct MCV RDW Plt Count Lymph % (Auto) [place] % (Auto) Lymph # [place] # Seg Neutrophils % Seg Neuts % (Manual) Lymphocytes % (Manual) Monocytes % (Manual) Nucleated RBC % Seg Neutrophils # Seg Neutrophils # Man Lymphocytes # (Manual) Monocytes # (Manual) D-Dimer POC ABG pH ABG pH POC ABG pCO2 POC ABG pO2 ABG pO2 ABG O2 Saturation ABG Hemoglobin Oxyhemoglobin Sodium Potassium Chloride Carbon Dioxide BUN Creatinine 0.5 L Glucose POC Glucose 112 H 115 H Lactic Acid Calcium 7.9 L Phosphorus Magnesium Total Bilirubin AST NT-Pro-B Natriuret Pep Total Protein Albumin Lipase 08/07/19 08/07/19 08/07/19 11:50 18:21 23:27 WBC RBC Hgb Hct MCV RDW Plt Count Lymph % (Auto) [place] % (Auto) Lymph # [place] # Seg Neutrophils % Seg Neuts % (Manual) Lymphocytes % (Manual) Monocytes % (Manual) Nucleated RBC % Seg Neutrophils # Seg Neutrophils # Man Lymphocytes # (Manual) Monocytes # (Manual) D-Dimer POC ABG pH ABG pH POC ABG pCO2 POC ABG pO2 ABG pO2 ABG O2 Saturation ABG Hemoglobin Oxyhemoglobin Sodium Potassium Chloride Carbon Dioxide BUN Creatinine Glucose POC Glucose 122 H 125 H 127 H Lactic Acid Calcium Phosphorus Magnesium Total Bilirubin AST NT-Pro-B Natriuret Pep Total Protein Albumin Lipase 08/08/19 08/08/19 06:17 12:16 WBC RBC Hgb Hct MCV RDW Plt Count Lymph % (Auto) [place] % (Auto) Lymph # [place] # Seg Neutrophils % Seg Neuts % (Manual) Lymphocytes % (Manual) Monocytes % (Manual) Nucleated RBC % Seg Neutrophils # Seg Neutrophils # Man Lymphocytes # (Manual) Monocytes # (Manual) D-Dimer POC ABG pH ABG pH POC ABG pCO2 POC ABG pO2 ABG pO2 ABG O2 Saturation ABG Hemoglobin Oxyhemoglobin Sodium Potassium Chloride Carbon Dioxide BUN Creatinine Glucose POC Glucose 115 H 135 H Lactic Acid Calcium Phosphorus Magnesium Total Bilirubin AST NT-Pro-B Natriuret Pep Total Protein Albumin Lipase
[2019-08-08] MEDS ORDERED: LIPASE 10,500/PROTEASE 25,000/AMYLASE 43,750 (UNITS) DR CAP FEEDTUBE PRN (14:32)
[2019-08-08] MEDS ORDERED: SODIUM BICARBONATE 325 MG TAB FEEDTUBE PRN (14:32)
[2019-08-08] MEDS ORDERED: SIMPLE SYRUP 15 ML FEEDTUBE PRN ×2 (14:32)
--- NOTE | 2019-08-08 16:30 | Progress Note ---
Assessment and Plan 07/21/2019 blood culture: No growth 07/30/2019 urine culture: no growth A/P: 19-year-old male with Down syndrome admitted with severe constipation and fecal impaction: 1) Fever: ?pneumonia v/s intra-abdominal source. Persist in spite of abx. CXR with b/l opacities, likely combination of fluid, atelectasis but HAP also possible. Will switch abx. 2) Initial septic shock: resolved. intra-abdominal source. s/p ex-lap on 07/23/2019, findings of multiple distinct areas of necrosis on transverse colon. Rest of intestines were normal. Gen. Surg following (see #4). 3) Acute renal failure: resolved. Creatinine normal. Dose adjust abx accordingly. 4) Fecal impaction, colonic distention with necrosis and shock: s/p ex-lap on 07/23/2019, findings of multiple distinct areas of necrosis on transverse colon. rest of intestines were normal. Gen. Surg following, s/p washout on 07/26/2019 along with abdominal colectomy with ileosigmoid anastomosis, open abdomen. Underwent abdominal closure on 07/28/2019. Slow return of bowel function. 5) Acute respiratory failure: extubated 07/31/2019. CXR with b/l opacities, fluid overload v/s atelectasis v/s pneumonia. Recs: Fevers resolved On discharge would send with 5 further days of levofloxacin 750mg q24h and metronidazole 500mg q8h PO. Stop date: 08/13/19 Yves Simons MD [facility] M: [phone] O: [phone] F: [phone] Subjective Date of service: 08/08/19 Principal diagnosis: Respiratory Failure Interval history: Much improved today, bowel function returning Objective - Exam Narrative Exam: Physical Exam: Constitutional: Asleep, drowsy Head, Ears, Nose: Normocephalic, atraumatic. External ears, nose normal. NG tube + Eyes: Conjunctivae/corneas clear. No icterus. No ptosis. Neck: supple, no meningeal signs Cardiovascular: S1, S2 normal. Respiratory: scattered rhonchi bilaterally GI: soft, midline dressing +, drain +, bowel sounds hypo. [place] + Musculoskeletal: No pedal edema, no cyanosis. Skin: No rash or abscess Hem/Lymphatic: No palpable cervical or supraclavicular nodes. No lymphangitis Psych: no agitation Neurological: awake, alert - Constitutional Vitals: Vital Signs Temp Pulse Resp BP Pulse Ox 99.2 F 82 44 H 145/82 96 08/08/19 12:00 08/08/19 14:13 08/08/19 13:00 08/08/19 14:13 08/08/19 14:49 Temperature -Last 24 Hours Temperature 99.2 F Temperature 98.2 F Temperature 98.4 F Temperature 98.4 F Temperature 98.7 F - Labs CBC & Chem 7: 08/05/19 05:20 08/07/19 04:20 Labs: Abnormal lab results 08/07/19 08/07/19 08/08/19 Range/Units 18:21 23:27 06:17 POC Glucose 125 H 127 H 115 H (70-105) 08/08/19 Range/Units 12:16 POC Glucose 135 H (70-105)
--- NOTE | 2019-08-08 16:52 | Progress Note ---
Assessment and Plan - Patient Problems (1) Ischemic necrosis of large intestine Current Visit: Yes Status: Acute Plan to address problem: s/p ex-lap with partial colon resection (07/23) - POD#16; s/p abdominal colectomy with ileocolostomy (07/26) - POD#13; s/p abdominal reexploration, peritoneal lavage, closure of open abdomen, placement of URMILA drain (07/28) POD# 11 Plan: 1. neuro - stable. Has been very sleepy. 2. CV - DVT ppx. CBC normalized 3. Resp - stable. Needs good pulmonary toilet. 4. GI - NPO, TPN. Ileus appears to have resolved. Spoke with Dr. Ruiz. Can either advance tube feeds to goal or try PO diet. URMILA removed as output is com pletely normal and his bowel function has resumed. 5. - lee for strict I/Os. Consider condom cath. 6. ID - abx per ID. 7. Endo - blood glucose monitoring per protocol 8. FEN - BMP daily, replace lytes as needed. TPN Dispo - Ok for LTAC from my standpoint. Thank you, please call with questions. Subjective Date of service: 08/08/19 Patient Reports: Positive: bowel movement (times 2), afebrile, other (tolerating trickle feeds) Objective Vital Signs - 12hr 08/08/19 08/08/19 08/08/19 05:00 06:00 07:00 Temperature Pulse Rate 92 H 89 108 H Pulse Rate [ From Monitor] Respiratory 29 H 28 H 26 H Rate Blood Pressure 150/81 156/84 146/83 O2 Sat by Pulse 95 98 94 Oximetry 08/08/19 08/08/19 08/08/19 07:48 08:00 09:00 Temperature 98.2 F Pulse Rate 97 H 84 87 Pulse Rate [ 85 From Monitor] Respiratory 24 22 Rate Blood Pressure 146/83 138/84 138/84 O2 Sat by Pulse 96 96 Oximetry 08/08/19 08/08/19 08/08/19 10:00 11:00 12:00 Temperature 99.2 F Pulse Rate 91 H 90 89 Pulse Rate [ 83 From Monitor] Respiratory 21 29 H 23 Rate Blood Pressure 151/86 145/80 148/84 O2 Sat by Pulse 96 95 98 Oximetry 08/08/19 08/08/1919 13:00 14:13 14:49 Temperature Pulse Rate 104 H 82 Pulse Rate [ From Monitor] Respiratory 44 H Rate Blood Pressure 149/82 145/82 O2 Sat by Pulse 89 96 Oximetry - General physical appearance no distress, no pain, other (not as interactive as before) - Respiratory normal expansion, normal respiratory effort - Abdomen soft, not tender, not distended, not guarding, not rigid, surgical scars (C/D/I. ), other (URMILA with serous drainage. Easily removed. ) - Integumentary no rash, no growths, no abnormal pigmentation - Labs 08/05/19 05:20 08/07/19 04:20
[2019-08-08 17:55] VITALS: BP 145/89
[2019-08-08] MEDS ORDERED: TOTAL PARENTERAL NUTRITION 2,400 ML IV SCH (20:00)
[2019-08-08] MEDS ORDERED: FAT EMULSIONS 20% 250 ML IV SCH (20:00)
== END 2019-08-08 18:10 | DRG 853 ==
LOC: ED 18:25 → 3A 22:23 → CC1 07-22 19:39 → OBSVTOIN 07-23 11:10 → IMCU 08-06 17:00
PROVIDERS: ADMIT Internal Medicine; ATTEND Internal Medicine
PROC: 4A033R1 Measurement of Arterial Saturation, Peripheral, Percutaneous Approach (ICD-10-PCS; 2019-07-22)
PROC: 06HY33Z Insertion of Infusion Device into Lower Vein, Percutaneous Approach (ICD-10-PCS; principal; 2019-07-23)
PROC: 0DBL0ZZ Excision of Transverse Colon, Open Approach (ICD-10-PCS; 2019-07-23)
PROC: 5A1955Z Respiratory Ventilation, Greater than 96 Consecutive Hours (ICD-10-PCS; 2019-07-23)
PROC: 0BH17EZ Insertion of Endotracheal Airway into Trachea, Via Natural or Artificial Opening (ICD-10-PCS; 2019-07-23)
PROC: 5A1D70Z Performance of Urinary Filtration, Intermittent, Less than 6 Hours Per Day (ICD-10-PCS; 2019-07-23)
PROC: 0D9670Z Drainage of Stomach with Drainage Device, Via Natural or Artificial Opening (ICD-10-PCS; 2019-07-23)
PROC: 5A09357 Assistance with Respiratory Ventilation, Less than 24 Consecutive Hours, Continuous Positive Airway Pressure (ICD-10-PCS; 2019-07-23)
PROC: 02HV33Z Insertion of Infusion Device into Superior Vena Cava, Percutaneous Approach (ICD-10-PCS; 2019-07-23)
PROC: 0DBE0ZZ Excision of Large Intestine, Open Approach (ICD-10-PCS; 2019-07-26)
PROC: 05HY33Z Insertion of Infusion Device into Upper Vein, Percutaneous Approach (ICD-10-PCS; 2019-07-26)
PROC: 0DJD0ZZ Inspection of Lower Intestinal Tract, Open Approach (ICD-10-PCS; 2019-07-28)
PROC: 3E1M38Z Irrigation of Peritoneal Cavity using Irrigating Substance, Percutaneous Approach (ICD-10-PCS; 2019-07-28)
PROC: 3E0436Z Introduction of Nutritional Substance into Central Vein, Percutaneous Approach (ICD-10-PCS; 2019-07-28)
PROC: 02HV33Z Insertion of Infusion Device into Superior Vena Cava, Percutaneous Approach (ICD-10-PCS; 2019-07-30)
DX: A41.9 Sepsis, unspecified organism (principal); N17.0 Acute kidney failure with tubular necrosis; K55.049 Acute infarction of large intestine, extent unspecified; R65.21 Severe sepsis with septic shock; G93.41 Metabolic encephalopathy; J18.9 Pneumonia, unspecified organism; J96.01 Acute respiratory failure with hypoxia; J96.02 Acute respiratory failure with hypercapnia; E87.5 Hyperkalemia; I42.9 Cardiomyopathy, unspecified; Y95 Nosocomial condition; G40.909 Epilepsy, unspecified, not intractable, without status epilepticus; E87.2 Acidosis; E87.1 Hypo-osmolality and hyponatremia; K56.41 Fecal impaction; E86.0 Dehydration; D63.8 Anemia in other chronic diseases classified elsewhere; D69.6 Thrombocytopenia, unspecified; E66.01 Morbid (severe) obesity due to excess calories; Z68.43 Body mass index [BMI] 50.0-59.9, adult; K56.7 Ileus, unspecified; Z79.899 Other long term (current) drug therapy; Z90.49 Acquired absence of other specified parts of digestive tract; K52.1 Toxic gastroenteritis and colitis; T47.4X5A Adverse effect of other laxatives, initial encounter; Y92.238 Other place in hospital as the place of occurrence of the external cause; E87.0 Hyperosmolality and hypernatremia; Q90.9 Down syndrome, unspecified; Z59.0 Homelessness
CPT/HCPCS: 36415; 36600; 71045; 74018; 74176; 74177; 80048; 80053; 80074; 80076; 80202; 81001; 82140; 82803; 82962; 83690; 83735; 83880; 84100; 84439; 84443; 84478; 84484; 85007; 85025; 85027; 85379; 86022; 86850; 86900; 86901; 87040; 87086; 88307; 88341; 88342; 93005; 93010; 93306; 93970; 94002; 94003; 94660; 94760; 96374; G0378; C9113; J0610; J0692; J1100; J1170; J1200; J1450; J1630; J1644; J1650; J1815; J1940; J2185; J2270; J2370; J2405; J2543; J2704; J2710; J2765; J2930; J3010; J3370; J3475; J7030; J7040; J7050; J7070; P9047; Q9967

== ENCOUNTER 2019-10-17 21:27 | Emergency (ER) | payer MEDICAID ==
--- NOTE | 2019-10-17 22:36 | Emergency Department Report ---
<TORIBIORADHA - Last Filed: 10/18/19 09:56> ED Psych HPI - General Chief Complaint: Psych Stated Complaint: MH EVAL/COMBATIVE Time Seen by Provider: 10/17/19 22:25 - Related Data Home Medications Medication Instructions Recorded Confirmed Last Taken Benztropine [Cogentin] 0.5 mg PO QHS 05/17/19 07/24/19 Unknown Divalproex ER [Depakote ER] 500 mg PO BID 05/17/19 07/24/19 Unknown clonazePAM [KlonoPIN] 2 mg PO BID 05/17/19 07/24/19 Unknown traZODone [Desyrel] 100 mg PO HS 06/05/19 07/24/19 Unknown Previous Rx's Medication Instructions Recorded Last Taken Type Lactulose 10 gm PO DAILY PRN #150 ml 07/21/19 Unknown Rx Acetaminophen [Acetaminophen 650 mg IA Q4H PRN supp.rect 08/08/19 Unknown Rx SUPPOS] Enoxaparin 40 mg SUB-Q DAILY syringe 08/08/19 Unknown Rx Lipase/Protease/Amylase [Pancreaze 1 each FEEDTUBE PRN PRN capsule 08/08/19 Unknown Rx 10,500 Unit] Total Parenteral Nutrition [TPN See Protocol IV DAILY@2000 ml 08/08/19 Unknown Rx Adult] hydrALAZINE [Apresoline INJ] 10 mg IV Q4HR PRN vial 08/08/19 Unknown Rx Allergies Allergy/AdvReac Type Severity Reaction Status Date / Time No Known Allergies Allergy Verified 10/20/15 03:43 ED Past Medical Hx - Medications Home Medications: Home Medications Medication Instructions Recorded Confirmed Last Taken Type Benztropine [Cogentin] 0.5 mg PO QHS 05/17/19 07/24/19 Unknown History Divalproex ER [Depakote ER] 500 mg PO BID 05/17/19 07/24/19 Unknown History clonazePAM [KlonoPIN] 2 mg PO BID 05/17/19 07/24/19 Unknown History traZODone [Desyrel] 100 mg PO HS 06/05/19 07/24/19 Unknown History Lactulose 10 gm PO DAILY PRN #150 ml 07/21/19 Unknown Rx Acetaminophen [Acetaminophen 650 mg IA Q4H PRN supp.rect 08/08/19 Unknown Rx SUPPOS] Enoxaparin 40 mg SUB-Q DAILY syringe 08/08/19 Unknown Rx Lipase/Protease/Amylase [Pancreaze 1 each FEEDTUBE PRN PRN capsule 08/08/19 Unknown Rx 10,500 Unit] Total Parenteral Nutrition [TPN See Protocol IV DAILY@2000 ml 08/08/19 Unknown Rx Adult] hydrALAZINE [Apresoline INJ] 10 mg IV Q4HR PRN vial 08/08/19 Unknown Rx ED Course - Reevaluation(s) Reevaluation #1: 10/18/19 09:56 Patient noted to be standing up in front of the nurse's desk. He is not violent, or combative. He initially did have some difficulty responding to verbal redirection techniques. He was medicated with Xanax. Patient does not meet criteria for physical restraints at this time. He was appropriately de escalated with multi modal techniques from nursing team and security including verbal de escalation and repositioning ED Medical Decision Making - Lab Data Result diagrams: 10/17/19 22:44 10/17/19 22:44 ED Disposition Clinical Impression: Aggressive behavior, Schizoaffective disorder Disposition: DC-01 TO HOME OR SELFCARE Condition: Stable Referrals: PRIMARY CARE, [Primary Care Provider] - 3-5 Days <JA CEDENO - Last Filed: 10/20/19 09:17> ED Psych HPI - General Source: police Mode of arrival: Stretcher - History of Present Illness Initial Comments: Patient is 19 years old male with history of down syndrome and schizoaffective disorder. Patient brought to the emergency room for evaluation of aggressiveness in a [place] [facility]. EMS reported that patient started destroying his room. In the emergency room patient is calm and cooperative in no acute distress. Patient denying any suicidal or homicidal ideation. Patient also denied any visual or auditory hallucination. Complaint: altered mental status ED Review of Systems ROS: Stated complaint: MH EVAL/COMBATIVE Other details as noted in HPI Comment: All other systems reviewed and negative Constitutional: denies: chills, fever Respiratory: denies: cough, shortness of breath Cardiovascular: denies: chest pain Gastrointestinal: denies: abdominal pain Musculoskeletal: denies: back pain ED Past Medical Hx - Past Medical History Previous Medical History?: Yes Hx Hypertension: No (stable off pressors >48hrs) Hx Heart Attack/AMI: No (EF 25-30% on recent TTE) Hx Congestive Heart Failure: No Hx Diabetes: No Hx Deep Vein Thrombosis: No Hx Liver Disease: No Hx Renal Disease: Yes (ARF requiring HD this admission now improved) Hx Seizures: Yes Hx Psychiatric Treatment: Yes (schizo affective disorder/bipolar) Hx Asthma: (Hx) Hx COPD: No Hx HIV: No Additional medical history: down syndrome - Surgical History Past Surgical History?: No Hx Pacemaker: No Hx Internal Defibrillator: No - Social History Smoking Status: Never Smoker Substance Use Type: None ED Physical Exam - General Limitations: Altered Mental Status General appearance: alert, in no apparent distress - Head Head exam: Present: atraumatic, normocephalic, normal inspection - Eye Eye exam: Present: normal appearance - ENT ENT exam: Present: normal exam, normal orophraynx, mucous membranes moist - Neck Neck exam: Present: normal inspection, full ROM. Absent: tenderness, meningismus - Respiratory Respiratory exam: Present: normal lung sounds bilaterally - Cardiovascular Cardiovascular Exam: Present: regular rate, normal rhythm, normal heart sounds - GI/Abdominal GI/Abdominal exam: Present: soft, normal bowel sounds. Absent: distended, tenderness, guarding, rebound, rigid, organomegaly, mass, bruit, pulsatile mass - Extremities Exam Extremities exam: Present: normal inspection, full ROM, normal capillary refill. Absent: pedal edema, calf tenderness - Back Exam Back exam: Present: normal inspection, full ROM. Absent: CVA tenderness (R), CVA tenderness (L), muscle spasm, paraspinal tenderness, vertebral tenderness - Neurological Exam Neurological exam: Present: alert, CN II-XII intact, normal gait, reflexes normal. Absent: motor sensory deficit - Skin Skin exam: Present: warm, intact, normal color ED Course Vital Signs 10/17/19 10/18/19 10/18/19 22:10 11:57 20:51 Temperature 99 F 98.4 F Pulse Rate 86 88 93 H Respiratory 12 16 18 Rate Blood Pressure 113/57 112/54 112/69 [left arm] O2 Sat by Pulse 99 99 99 Oximetry ED Medical Decision Making - Lab Data Result diagrams: 10/17/19 22:44 10/17/19 22:44 - Medical Decision Making Patient is 19 years old male with history of down syndrome and schizoaffective disorder. Patient brought to the emergency room for evaluation of aggressiveness in a [place] [facility]. EMS reported that patient started destroying his room. In the emergency room patient is calm and cooperative in no acute distress. Patient denying any suicidal or homicidal ideation. Patient also denied any visual or auditory hallucination. Patient became agitated and given Geodon 20 mg IM. Patient is medically clear to be evaluated by psychiatric team. Critical care attestation.: If time is entered above; I have spent that time in minutes in the direct care of this critically ill patient, excluding procedure time. ED Disposition Is pt being admited?: No
[2019-10-17 23:00] LABS: Basophils # (Auto) 0.1 K/mm3 (0.0-0.1); Basophils % (Auto) 0.9 % (0.0-1.8); Eosinophils # (Auto) 0.1 K/mm3 (0.0-0.4); Eosinophils % (Auto) 1.6 % (0.0-4.3); Hematocrit 35.8 % (35.5-45.6); Hemoglobin 11.7 gm/dl (11.8-15.2); Lymphocytes # (Auto) 3.2 K/mm3 (1.2-5.4); Lymphocytes % (Auto) 37.2 % (13.4-35.0); Mean Corpuscular HGB Conc 33 % (32-34); Mean Corpuscular Volume 89 fl (84-94); Monocytes # (Auto) 1.1 K/mm3 (0.0-0.8); Platelet Count 276 K/mm3 (140-440); Red Cell Distribution Width 15.3 % (13.2-15.2)
[2019-10-17 23:00] LABS: Bilirubin,Urine NEG (Negative); Blood,Urine NEG (Negative); Color,Urine Yellow (Yellow); Mucus,Urine FEW /HPF; Protein,Urine <15 mg/dL mg/dL (Negative); Urobilinogen,Urine < 2.0 mg/dL (<2.0)
[2019-10-17 23:05] LABS: Amphetamine Screen,Urine PRESUMPTIVE NEGATIVE; Benzodiazepines Screen,Urine PRESUMPTIVE NEGATIVE; Cannabinoid Screen,Urine PRESUMPTIVE NEGATIVE; Cocaine Screen,Urine PRESUMPTIVE NEGATIVE; Methadone Screen,Urine PRESUMPTIVE NEGATIVE; Opiate Screen,Urine PRESUMPTIVE NEGATIVE
[2019-10-17 23:21] LABS: BUN/Creatinine Ratio 10; Blood Urea Nitrogen 9 mg/dL (9-20); Calcium 9.7 mg/dL (8.4-10.2); Hemolysis Index 3
[2019-10-18] MEDS ORDERED: ZIPRASIDONE MESYLATE 20 MG VIAL IM ONE ×3 (00:49→00:51)
[2019-10-18] MEDS ORDERED: ALPRAZolam 1 MG TAB PO PRN (07:33)
[2019-10-18 20:52] VITALS: BP 112/69
== END 2019-10-18 22:30 | disposition home or self-care (01) ==
LOC: ED 21:27 → EEVIPCON 21:27 → ED 10-18 22:30
DX: F29 Unspecified psychosis not due to a substance or known physiological condition (principal); G40.909 Epilepsy, unspecified, not intractable, without status epilepticus; F20.9 Schizophrenia, unspecified
CPT/HCPCS: 36415; 80048; 80307; 81001; 85025; 87076; 87086; 87186; 96372; 99284; J3486; 80320; G0480

== ENCOUNTER 2019-11-15 20:01 | Observation (INO) | payer MEDICAID ==
[2019-11-15] MEDS ORDERED: SODIUM CHLORIDE 0.9% 1000 ML 1,000 ML ONE (20:35)
[2019-11-15] MEDS ORDERED: SODIUM CHLORIDE 0.9% 1000 ML IV SOLN IV ONE (21:07)
--- NOTE | 2019-11-15 21:11 | Emergency Department Report ---
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 removed He may also have a history of seizures He may also have a history of hypertension. He is sent to the emergency room by [facility] for [facility]. It is not known why they sent him to the emergency room. Apparently he had a complaint of belly pain The patient is not accompanied by anyone at this time. The patient makes no complaint of abdominal pain. He thinks that he had a seizure. He is not able to describe exacerbating factors, qualitative nature of his symptoms. He is asking to drink water. He is moving 4 extremities spontaneously. -: unknown Quality: other Consistency: other Improves with: other Worsens with: other Associated Symptoms: other - Related Data Home Medications Medication Instructions Recorded Confirmed Last Taken Benztropine [Cogentin] 0.5 mg PO QHS 05/17/19 07/24/19 Unknown Divalproex ER [Depakote ER] 500 mg PO BID 05/17/19 07/24/19 Unknown clonazePAM [KlonoPIN] 2 mg PO BID 05/17/19 07/24/19 Unknown traZODone [Desyrel] 100 mg PO HS 06/05/19 07/24/19 Unknown Previous Rx's Medication Instructions Recorded Last Taken Type Lactulose 10 gm PO DAILY PRN #150 ml 07/21/19 Unknown Rx Acetaminophen [Acetaminophen 650 mg [place] Q4H PRN supp.rect 08/08/19 Unknown Rx SUPPOS] Enoxaparin 40 mg SUB-Q DAILY syringe 08/08/19 Unknown Rx Lipase/Protease/Amylase [Pancreaze 1 each FEEDTUBE PRN PRN capsule 08/08/19 Unknown Rx 10,500 Unit] Total Parenteral Nutrition [TPN See Protocol IV DAILY@2000 ml 08/08/19 Unknown Rx Adult] hydrALAZINE [Apresoline INJ] 10 mg IV Q4HR PRN vial 08/08/19 Unknown Rx Allergies Allergy/AdvReac Type Severity Reaction Status Date / Time No Known Allergies Allergy Verified 10/20/15 03:43 ED Review of Systems ROS: Stated complaint: ABD PAIN Other details as noted in HPI Comment: Unobtainable due to pts medical conditions Gastrointestinal: abdominal pain Neurological: other (seizure) ED Past Medical Hx - Past Medical History Previous Medical History?: Yes Hx Hypertension: No (stable off pressors >48hrs) Hx Heart Attack/AMI: No (EF 25-30% on recent TTE) Hx Congestive Heart Failure: No Hx Diabetes: No Hx Deep Vein Thrombosis: No Hx Liver Disease: No Hx Renal Disease: Yes (ARF requiring HD this admission now improved) Hx Seizures: Yes Hx Psychiatric Treatment: Yes (schizo affective disorder/bipolar) Hx Asthma: (Hx) Hx COPD: No Hx HIV: No Additional medical history: down syndrome - Surgical History Past Surgical History?: Yes Hx Pacemaker: No Hx Internal Defibrillator: No - Social History Smoking Status: Never Smoker Substance Use Type: None - Medications Home Medications: Home Medications Medication Instructions Recorded Confirmed Last Taken Type Benztropine [Cogentin] 0.5 mg PO QHS 05/17/19 07/24/19 Unknown History Divalproex ER [Depakote ER] 500 mg PO BID 05/17/19 07/24/19 Unknown History clonazePAM [KlonoPIN] 2 mg PO BID 05/17/19 07/24/19 Unknown History traZODone [Desyrel] 100 mg PO HS 06/05/19 07/24/19 Unknown History Lactulose 10 gm PO DAILY PRN #150 ml 07/21/19 Unknown Rx Acetaminophen [Acetaminophen 650 mg [place] Q4H PRN supp.rect 08/08/19 Unknown Rx SUPPOS] Enoxaparin 40 mg SUB-Q DAILY syringe 08/08/19 Unknown Rx Lipase/Protease/Amylase [Pancreaze 1 each FEEDTUBE PRN PRN capsule 08/08/19 Unknown Rx 10,500 Unit] Total Parenteral Nutrition [TPN See Protocol IV DAILY@2000 ml 08/08/19 Unknown Rx Adult] hydrALAZINE [Apresoline INJ] 10 mg IV Q4HR PRN vial 08/08/19 Unknown Rx ED Physical Exam - General Limitations: Other (Down syndrome, developmental delay) General appearance: alert, anxious, obese - Head Head exam: Present: atraumatic, normocephalic - Eye Eye exam: Present: normal appearance, EOMI - ENT ENT exam: Present: normal exam, normal orophraynx, mucous membranes moist, normal external ear exam - Neck Neck exam: Present: normal inspection, full ROM. Absent: tenderness, meningismus - Respiratory Respiratory exam: Present: normal lung sounds bilaterally. Absent: respiratory distress - Cardiovascular Cardiovascular Exam: Present: regular rate, normal rhythm, normal heart sounds. Absent: bradycardia, tachycardia, irregular rhythm, systolic murmur, diastolic murmur, rubs, gallop - GI/Abdominal GI/Abdominal exam: Present: soft. Absent: distended, tenderness, guarding, rebound, rigid, pulsatile mass - Rectal Rectal exam: Present: normal inspection, heme (-) stool, other (chaperoned by Yaimlet Busby). Absent: black stool, bloody stool, fecal impaction, hemorrhoids - Extremities Exam Extremities exam: Present: normal inspection, full ROM, other (2+ pulses noted in the bilateral upper and lower extremities. There is no long bony tenderness. The pelvis is stable. The muscular compartments are soft. There is no palpable cord. There is no redness, pus or streaking.). Absent: pedal edema, calf tenderness - Back Exam Back exam: Present: normal inspection, full ROM. Absent: tenderness, CVA tend erness (R), CVA tenderness (L), paraspinal tenderness, vertebral tenderness - Neurological Exam Neurological exam: Present: alert, other (patient moving 4 extremities. Patient speaking in partial sentences. There is no facial droop. Detailed neurologic examination not possible secondary to Down syndrome, and developmental delay) - Psychiatric Psychiatric exam: Present: anxious - Skin Skin exam: Present: warm, dry, intact, normal color. Absent: rash ED Course Vital Signs 11/15/19 11/15/19 11/15/19 20:24 20:30 20:52 Temperature Pulse Rate 84 86 Respiratory 11 L 18 Rate Blood Pressure 73/24 76/27 Blood Pressure [Right] O2 Sat by Pulse 93 94 Oximetry 11/15/19 11/15/19 11/15/19 20:53 21:00 21:16 Temperature 98 F Pulse Rate 80 Respiratory 18 32 H Rate Blood Pressure 77/33 83/26 Blood Pressure 78/35 [Right] O2 Sat by Pulse 96 98 Oximetry 11/15/19 11/15/19 11/15/19 21:30 21:46 22:00 Temperature Pulse Rate Respiratory Rate Blood Pressure 109/43 83/32 109/43 Blood Pressure [Right] O2 Sat by Pulse 98 98 Oximetry 11/15/19 22:30 Temperature Pulse Rate 85 Respiratory 24 Rate Blood Pressure 109/43 Blood Pressure [Right] O2 Sat by Pulse 97 Oximetry - Reevaluation(s) Reevaluation #1: 11/15/19 22:15 Differential diagnosis, including but not limited to, constipation, obstruction, volvulus, dehydration, pneumonia, urinary tract infection, seizure, intracranial injury, electrolyte derangement Assessment and plan: 19-year-old gentleman who was sent to the emergency room for possible complaint of either seizure or abdominal pain. Rectal temperature 98 degrees, initially hypotensive with blood pressure in the 70s. Moving 4 extr emities spontaneously, abdomen soft and benign, with no rebound, guarding or peritoneal signs, x-ray of the chest unremarkable, laboratory studies so far also unremarkable. As per verbal report from nursing team, patient was medicated with multiple agents prior to arrival at this hospital, to help calm the patient down. Blood pressure now in the 100s, screening laboratory studies reviewed and appreciated, x-ray the chest is clear, noncontrast CT scan of the brain to my interpretation appears to be unremarkable, EKG unchanged from prior EKG, with the exception of resolution of tachycardia and right axis There is no hypoxia, or tachycardia, or tachypnea at this time. 11/15/19 22:17 11/15/19 22:39 Reevaluation #2: 11/15/19 22:39 Patient resting comfortably now. Hyperkalemia appreciated. Mild renal insufficiency appreciated by creatinine of 1.7. GFR acceptable. Blood pressure variable, 78/35, to 104/44. Hyperkalemia cocktail was ordered, with the exception of Kayexalate, as it has been known to cause colonic concretions, and colonic necrosis. CT scan brain, CT scan abdomen and pelvis pending Reevaluation #3: 11/15/19 23:07 ct head negative for acute disease ct a/p with chronic findings blood pressure 97/55 sleeping comfortably in no acute distress albuteral Reevaluation #4: 11/15/19 23:11 Dr Lay to admit for [place], hyperkalemia, presumed vasomotor nephropathy ED Medical Decision Making - Lab Data Result diagrams: 11/15/19 21:15 11/15/19 21:15 Vital Signs 11/15/19 11/15/19 20:52 20:53 Temperature 98 F Pulse Rate 86 80 Respiratory 18 18 Rate Blood Pressure 78/35 [Right] O2 Sat by Pulse 94 96 Oximetry Lab Results 11/15/19 11/15/19 11/15/19 Range/Units 21:15 21:15 21:15 WBC (4.5-11.0) K/mm3 RBC (3.65-5.03) M/mm3 Hgb (11.8-15.2) gm/dl Hct (35.5-45.6) % MCV (84-94) fl MCH (28-32) pg MCHC (32-34) % RDW (13.2-15.2) % Plt Count (140-440) K/mm3 Lymph % (Auto) (13.4-35.0) % [place] % (Auto) (0.0-7.3) % Eos % (Auto) (0.0-4.3) % Baso % (Auto) (0.0-1.8) % Lymph # (1.2-5.4) K/mm3 [place] # (0.0-0.8) K/mm3 Eos # (0.0-0.4) K/mm3 Baso # (0.0-0.1) K/mm3 Seg Neutrophils % (40.0-70.0) % Seg Neutrophils # (1.8-7.7) K/mm3 APTT 33.2 (24.2-36.6) Sec. Sodium (137-145) mmol/L Chloride (98-107) mmol/L Carbon Dioxide (22-30) mmol/L Anion Gap mmol/L BUN (9-20) mg/dL Creatinine (0.8-1.5) mg/dL Estimated GFR ml/min BUN/Creatinine Ratio % Glucose (75-100) mg/dL Lactic Acid (0.7-2.0) mmol/L Calcium (8.4-10.2) mg/dL Magnesium 2.40 H (1.7-2.3) mg/dL Total Bilirubin (0.1-1.2) mg/dL AST (5-40) units/L ALT (7-56) units/L Alkaline Phosphatase (35-129) units/L Total Creatine Kinase 229 H (55-170) units/L Total Protein (6.3-8.2) g/dL Albumin (3.9-5) g/dL Albumin/Globulin Ratio % TSH 4.920 H (0.270-4.200) mlU/mL Salicylates (2.8-20.0) mg/dL Acetaminophen (10.0-30.0) ug/mL Valproic Acid (50-100) ug/mL 11/15/19 11/15/19 11/15/19 Range/Units 21:15 21:15 21:15 WBC 5.9 (4.5-11.0) K/mm3 RBC 3.38 L (3.65-5.03) M/mm3 Hgb 9.9 L (11.8-15.2) gm/dl Hct 30.4 L (35.5-45.6) % MCV 90 (84-94) fl MCH 29 (28-32) pg MCHC 33 (32-34) % RDW 15.5 H (13.2-15.2) % Plt Count 138 L (140-440) K/mm3 Lymph % (Auto) 40.2 H (13.4-35.0) % [place] % (Auto) 10.5 H (0.0-7.3) % Eos % (Auto) 4.6 H (0.0-4.3) % Baso % (Auto) 1.7 (0.0-1.8) % Lymph # 2.4 (1.2-5.4) K/mm3 Graham # 0.6 (0.0-0.8) K/mm3 Eos # 0.3 (0.0-0.4) K/mm3 Baso # 0.1 (0.0-0.1) K/mm3 Seg Neutrophils % 43.0 (40.0-70.0) % Seg Neutrophils # 2.5 (1.8-7.7) K/mm3 APTT (24.2-36.6) Sec. Sodium (137-145) mmol/L Chloride (98-107) mmol/L Carbon Dioxide (22-30) mmol/L Anion Gap mmol/L BUN (9-20) mg/dL Creatinine (0.8-1.5) mg/dL Estimated GFR ml/min BUN/Creatinine Ratio % Glucose (75-100) mg/dL Lactic Acid (0.7-2.0) mmol/L Calcium (8.4-10.2) mg/dL Magnesium (1.7-2.3) mg/dL Total Bilirubin (0.1-1.2) mg/dL AST (5-40) units/L ALT (7-56) units/L Alkaline Phosphatase (35-129) units/L Total Creatine Kinase (55-170) units/L Total Protein (6.3-8.2) g/dL Albumin (3.9-5) g/dL Albumin/Globulin Ratio % TSH (0.270-4.200) mlU/mL Salicylates < 0.3 L (2.8-20.0) mg/dL Acetaminophen < 5.0 L (10.0-30.0) ug/mL Valproic Acid 103.2 H (50-100) ug/mL 11/15/19 11/15/19 Range/Units 21:15 21:15 WBC (4.5-11.0) K/mm3 RBC (3.65-5.03) M/mm3 Hgb (11.8-15.2) gm/dl Hct (35.5-45.6) % MCV (84-94) fl MCH (28-32) pg MCHC (32-34) % RDW (13.2-15.2) % Plt Count (140-440) K/mm3 Lymph % (Auto) (13.4-35.0) % Graham % (Auto) (0.0-7.3) % Eos % (Auto) (0.0-4.3) % Baso % (Auto) (0.0-1.8) % Lymph # (1.2-5.4) K/mm3 Graham # (0.0-0.8) K/mm3 Eos # (0.0-0.4) K/mm3 Baso # (0.0-0.1) K/mm3 Seg Neutrophils % (40.0-70.0) % Seg Neutrophils # (1.8-7.7) K/mm3 APTT (24.2-36.6) Sec. Sodium 136 L (137-145) mmol/L Chloride 101.2 (98-107) mmol/L Carbon Dioxide 24 (22-30) mmol/L Anion Gap 17 mmol/L BUN 23 H (9-20) mg/dL Creatinine 1.7 H (0.8-1.5) mg/dL Estimated GFR > 60 ml/min BUN/Creatinine Ratio 14 % Glucose 80 (75-100) mg/dL Lactic Acid 1.30 (0.7-2.0) mmol/L Calcium 9.1 (8.4-10.2) mg/dL Magnesium (1.7-2.3) mg/dL Total Bilirubin < 0.20 (0.1-1.2) mg/dL AST 11 (5-40) units/L ALT 7 (7-56) units/L Alkaline Phosphatase 47 (35-129) units/L Total Creatine Kinase (55-170) units/L Total Protein 6.6 (6.3-8.2) g/dL Albumin 3.3 L (3.9-5) g/dL Albumin/Globulin Ratio 1.0 % TSH (0.270-4.200) mlU/mL Salicylates (2.8-20.0) mg/dL Acetaminophen (10.0-30.0) ug/mL Valproic Acid (50-100) ug/mL - EKG Data -: EKG Interpreted by [place] EKG shows normal: sinus rhythm Rate: normal - EKG Data 11/15/19 22:17 Sinus rhythm, 83 bpm, there is a rightward axis deviation, the QTc is 394 ms, there is high left ventricular voltage, abnormal EKG, unchanged from prior, with the exception of new right [place] deviation. - Radiology Data Radiology results: pending, image reviewed interpreted by me: X-ray of the chest is negative for acute disease Critical care attestation.: If time is entered above; I have spent that time in minutes in the direct care of this critically ill patient, excluding procedure time. ED Disposition Clinical Impression: Acute hyperkalemia, COLUMBA (acute kidney injury), Constipation, Hypotension Disposition: DC-09 OP ADMIT IP TO THIS HOSP Is pt being admited?: Yes Condition: Good Referrals: PRIMARY CARE, [Primary Care Provider] - 3-5 Days
[2019-11-15 21:36] LABS: Basophils # (Auto) 0.1 K/mm3 (0.0-0.1); Basophils % (Auto) 1.7 % (0.0-1.8); Eosinophils # (Auto) 0.3 K/mm3 (0.0-0.4); Eosinophils % (Auto) 4.6 % (0.0-4.3); Hematocrit 30.4 % (35.5-45.6); Hemoglobin 9.9 gm/dl (11.8-15.2); Lymphocytes # (Auto) 2.4 K/mm3 (1.2-5.4); Lymphocytes % (Auto) 40.2 % (13.4-35.0); Mean Corpuscular HGB Conc 33 % (32-34); Mean Corpuscular Volume 90 fl (84-94); Monocytes # (Auto) 0.6 K/mm3 (0.0-0.8); Monocytes % (Auto) 10.5 % (0.0-7.3); Platelet Count 138 K/mm3 (140-440); Red Blood Count 3.38 M/mm3 (3.65-5.03); Red Cell Distribution Width 15.5 % (13.2-15.2)
[2019-11-15 22:01] LABS: Alanine Aminotransferase 7 units/L (7-56); Albumin 3.3 g/dL (3.9-5); BUN/Creatinine Ratio 14; Blood Urea Nitrogen 23 mg/dL (9-20); Calcium 9.1 mg/dL (8.4-10.2); Hemolysis Index 3
[2019-11-15] MEDS ORDERED: SODIUM BICARB 8.4% 50 MEQ/50 ML SYRINGE IV ONE ×2 (22:19→23:00)
[2019-11-15] MEDS ORDERED: DEXTROSE 50% IN WATER (25GM) 50 ML VIAL IV PRN ×2 (22:19→23:00)
[2019-11-15] MEDS ORDERED: INSULIN REGULAR, HUMAN 100 UNITS/1 ML IV ONE (22:19)
[2019-11-15] MEDS ORDERED: ALBUTEROL 2.5 MG/3 ML NEBU IH ONE (22:19)
[2019-11-15] MEDS ORDERED: DEXTROSE 50% IN WATER (25GM) 50 ML SYRINGE IV PRN (22:19)
[2019-11-15 22:30] LABS: Bacteria,Urine 1+ /HPF (Negative); Bilirubin,Urine NEG (Negative); Blood,Urine NEG (Negative); Color,Urine Straw (Yellow); Protein,Urine <15 mg/dL mg/dL (Negative); Urobilinogen,Urine < 2.0 mg/dL (<2.0)
--- NOTE | 2019-11-15 22:35 | XRay Report ---
CHEST 1 VIEW, 11/15/2019 9:43 PM CLINICAL INFORMATION/INDICATION: Shortness of breath. Respiratory failure. COMPARISON: Chest radiograph, 08/01/2019 FINDINGS: SUPPORT DEVICES: None. HEART: The cardiac silhouette is normal in size. LUNGS/PLEURA: Low lung volumes are noted bilaterally without evidence of focal airspace consolidation or significant pleural effusion. ADDITIONAL FINDINGS: No additional acute findings. IMPRESSION: 1. No evidence of acute cardiopulmonary process. Signer Name: Gretchen Ward MD Signed: 11/15/2019 10:30 PM Workstation Name: [id number]
[2019-11-15] MEDS ORDERED: SODIUM CHLORIDE 0.9% 1000 ML 2,000 ML IV ONE (22:37)
--- NOTE | 2019-11-15 22:57 | Cat Scan Report ---
CT head without contrast INDICATION : ams sz. TECHNIQUE: Axial imaging performed from the skull apex through the skull base without the use of con trast. All CT scans at this location are performed using CT dose reduction for ALARA by means of aut omated exposure control. COMPARISON: None FINDINGS: Parenchyma: No acute intracranial hemorrhage or parenchymal abnormality. Ventricles: Ventricles are normal in size and appear symmetric. Soft tissues: Soft tissues including the orbits appear normal. Bones: No acute osseous abnormality. Sinuses: Sinuses and mastoid air cells are clear. IMPRESSION: No acute abnormality. Signer Name: Matt Helm MD Signed: 11/15/2019 10:52 PM Workstation Name: [id number]
--- NOTE | 2019-11-15 23:01 | Cat Scan Report ---
CT ABDOMEN AND PELVIS WITHOUT CONTRAST HISTORY: abd pain shock. COMPARISON: CT abdomen/pelvis from 08/05/2019 TECHNIQUE: CT images of the abdomen and pelvis were obtained without administration of intravenous co ntrast. All CT scans at this location are performed using CT dose reduction for ALARA by means of au tomated exposure control. FINDINGS: Lungs/bones: There is mild bibasilar atelectasis. Otherwise clear lung bases. No acute osseous abnor mality identified. Abdomen/pelvis: There is respiratory motion artifact. The liver, spleen, pancreas, and adrenals appear unremarkable. No acute abnormality the proximal GI t ract. There is mild bilateral renal collecting system prominence with no stone disease or mass identified. There is moderate amount of stool in the rectum and there is an anastomotic site in the sigmoid colon . The bowel upstream from this area appears mildly dilated. There is also mild inflammatory change ce ntered near the rectosigmoid anastomotic site. The urinary bladder show circumferential wall thickening. IMPRESSION: 1. Probable mild stenosis at the rectosigmoid anastomotic site with mild dilatation of the upstream b owel and also mild inflammatory change in this region which has also been present in the past. There may be mild fecal impaction in the rectum as well. 2. Mild circumferential bladder wall thickening could be seen with chronic infections or urinary pete is. Signer Name: Matt Helm MD Signed: 11/15/2019 10:57 PM Workstation Name: [id number]
[2019-11-15] MEDS ORDERED: SODIUM POLYSTYRENE 15 GM/60 ML ORAL LIQD PO ONE (23:06)
[2019-11-15] MEDS ORDERED: SODIUM CHLORIDE 0.9% 1000 ML 1,000 ML IV SCH (23:45)
[2019-11-15] MEDS ORDERED: ACETAMINOPHEN 325 MG TAB PO PRN (23:48)
[2019-11-15] MEDS ORDERED: MAGNESIUM HYDROXIDE (MOM) ORAL LIQD UDC PO PRN (23:48)
[2019-11-15] MEDS ORDERED: MORPHINE 2 MG/1 ML INJ IV PRN (23:48)
[2019-11-15] MEDS ORDERED: ONDANSETRON 4 MG/2 ML INJ IV PRN (23:48)
--- NOTE | 2019-11-15 23:56 | History and Physical Report ---
History of Present Illness Date of examination: 11/15/19 Date of admission: 11/15/2019 Chief complaint: Abdominal pain History of present illness: 1-7-[age]-old -[place] male with known history of developmental delay who [facility] presenting to the emergency room today complaining of abdominal pain. Abdominal pain is said to be generalized. There is no nausea vomiting and there is no diarrhea. He denies any fever and denies any chills. No headache or dizziness. Patient has known history of abdominal surgery in the past namely abdominal colectomy and ileocolostomy. Upon arrival in the emergency room his work-up reveals hyperkalemia with potassium 6.3, CT of the abdomen reveals constipation otherwise there were no acute findings. He was however hypotensive and had boluses of IV fluid with improvement in his blood pressure. Past History Past Medical History: other (bipolar disorder,down's syndrome) Past Surgical History: bowel surgery Social history: no significant social history Family history: no significant family history Medications and Allergies Allergies Allergy/AdvReac Type Severity Reaction Status Date / Time No Known Allergies Allergy Verified 10/20/15 03:43 Home Medications Medication Instructions Recorded Confirmed Last Taken Type Benztropine [Cogentin] 0.5 mg PO QHS 05/17/19 07/24/19 Unknown History Divalproex ER [Depakote ER] 500 mg PO BID 05/17/19 07/24/19 Unknown History clonazePAM [KlonoPIN] 2 mg PO BID 05/17/19 07/24/19 Unknown History traZODone [Desyrel] 100 mg PO HS 06/05/19 07/24/19 Unknown History Lactulose 10 gm PO DAILY PRN #150 ml 07/21/19 Unknown Rx Acetaminophen [Acetaminophen 650 mg [place] Q4H PRN supp.rect 08/08/19 Unknown Rx SUPPOS] Enoxaparin 40 mg SUB-Q DAILY syringe 08/08/19 Unknown Rx Lipase/Protease/Amylase [Pancreaze 1 each FEEDTUBE PRN PRN capsule 08/08/[address],500 Unit] Total Parenteral Nutrition [TPN See Protocol IV DAILY@2000 ml 08/08/19 Unknown Rx Adult] hydrALAZINE [Apresoline INJ] 10 mg IV Q4HR PRN vial 08/08/19 Unknown Rx Active Meds: Active Medications Acetaminophen (Tylenol) 650 mg PO Q4H PRN PRN Reason: Pain MILD(1-3)/Fever >100.5/BARRY Dextrose (D50w (25gm) Syringe) 50 ml IV Q30MIN PRN; Protocol PRN Reason: Hypoglycemia Last Admin: 11/15/19 23:12 Dose: 50 ml Documented by: Dextrose (D50w (25gm) Vial) 0 gm IV Q30MIN PRN; Protocol PRN Reason: Hypoglycemia Ondansetron HCl (Zofran) 4 mg IV Q8H PRN PRN Reason: Nausea And Vomiting Sodium Chloride (Sodium Chloride Flush Syringe 10 Ml) 10 ml IV BID STEPHEN Sodium Chloride (Sodium Chloride Flush Syringe 10 Ml) 10 ml IV PRN PRN PRN Reason: LINE FLUSH Review of Systems Constitutional: no weight loss, no fever, no chills, no weakness Cardiovascular: no chest pain, no palpitations, no syncope Respiratory: no cough, no shortness of breath Gastrointestinal: abdominal pain, no nausea, no vomiting, no diarrhea Genitourinary Male: no dysuria, no hematuria Musculoskeletal: no neck pain, no low back pain Integumentary: no rash, no pruritis Neurological: no headaches, no change in mentation Exam - Constitutional Vitals: Temp Pulse Resp BP Pulse Ox 98 F 85 39 H 109/43 97 11/15/19 20:53 11/15/19 22:55 11/15/19 22:55 11/15/19 22:30 11/15/19 22:30 General appearance: Present: no acute distress, well-nourished - EENT Eyes: Present: PERRL, EOM intact ENT: hearing intact, clear oral mucosa, dentition normal - Neck Neck: Present: supple, normal ROM - Respiratory Respiratory effort: normal Respiratory: bilateral: CTA - Cardiovascular Rhythm: regular Heart Sounds: Present: S1 & S2 - Extremities Extremities: no ischemia, No edema, Full ROM Peripheral Pulses: within normal limits - Abdominal General gastrointestinal: Present: soft, non-tender, non-distended, normal bowel sounds, other (Scar of old surgery in the midline) - Integumentary Integumentary: Present: clear, warm, dry - Musculoskeletal Musculoskeletal: strength equal bilaterally, generalized weakness - Psychiatric Psychiatric: appropriate mood/affect, intact judgment & insight, cooperative - Neurologic Neurologic: CNII-XII intact, moves all extremities Results - Labs CBC & Chem 7: 11/16/19 04:08 11/16/19 04:08 Labs: Abnormal lab results 11/15/19 11/15/19 11/15/19 Range/Units 21:15 21:15 21:15 RBC (3.65-5.03) M/mm3 Hgb (11.8-15.2) gm/dl Hct (35.5-45.6) % RDW (13.2-15.2) % Plt Count (140-440) K/mm3 Lymph % (Auto) (13.4-35.0) % [place] % (Auto) (0.0-7.3) % Eos % (Auto) (0.0-4.3) % Sodium (137-145) mmol/L Potassium (3.6-5.0) mmol/L BUN (9-20) mg/dL Creatinine (0.8-1.5) mg/dL Magnesium 2.40 H (1.7-2.3) mg/dL Total Creatine Kinase 229 H (55-170) units/L Albumin (3.9-5) g/dL TSH 4.920 H (0.270-4.200) mlU/mL Salicylates < 0.3 L (2.8-20.0) mg/dL Acetaminophen (10.0-30.0) ug/mL Valproic Acid 103.2 H (50-100) ug/mL 11/15/19 11/15/19 11/15/19 Range/Units 21:15 21:15 21:15 RBC 3.38 L (3.65-5.03) M/mm3 Hgb 9.9 L (11.8-15.2) gm/dl Hct 30.4 L (35.5-45.6) % RDW 15.5 H (13.2-15.2) % Plt Count 138 L (140-440) K/mm3 Lymph % (Auto) 40.2 H (13.4-35.0) % [place] % (Auto) 10.5 H (0.0-7.3) % Eos % (Auto) 4.6 H (0.0-4.3) % Sodium 136 L (137-145) mmol/L Potassium 6.3 H* (3.6-5.0) mmol/L BUN 23 H (9-20) mg/dL Creatinine 1.7 H (0.8-1.5) mg/dL Magnesium (1.7-2.3) mg/dL Total Creatine Kinase (55-170) units/L Albumin 3.3 L (3.9-5) g/dL TSH (0.270-4.200) mlU/mL Salicylates (2.8-20.0) mg/dL Acetaminophen < 5.0 L (10.0-30.0) ug/mL Valproic Acid (50-100) ug/mL Assessment and Plan - Patient Problems (1) Abdominal pain Current Visit: No Status: Acute Qualifiers: Abdominal location: generalized Qualified Code(s): R10.84 - Generalized abdominal pain Plan to address problem: Etiology is unclear however patient will be given analgesic medication for relief. We also place patient on medication as needed for constipation. Patient has had a history of abdominal surgery in the past resulting in colectomy and ileocolostomy. (2) COLUMBA (acute kidney injury) Current Visit: Yes Status: Acute Plan to address problem: We will continue on IV fluid and monitor BUN and creatinine. (3) Acute hyperkalemia Current Visit: Yes Status: Acute Plan to address problem: Patient has had insulin and glucose, sodium bicarb., Nebulizing treatments. Will monitor EKG and will also monitor potassium levels. (4) Hypotension Current Visit: No Status: Resolved Plan to address problem: We will continue on IV fluid and monitor vital signs closely. We will consider initiating pressors if needed (5) DVT prophylaxis Current Visit: Yes Status: Acute Plan to address problem: Patient placed on subcutaneous heparin. (6) Full code status Current Visit: Yes Status: Acute
[2019-11-16] MEDS ORDERED: SODIUM POLYSTYRENE 15 GM/60 ML ORAL LIQD ONE ×2 (00:42→00:50)
[2019-11-16] MEDS ORDERED: SODIUM BICARB 8.4% 50 MEQ/50 ML SYRINGE IV ONE (00:51)
[2019-11-16] MEDS ORDERED: SODIUM CHLORIDE 0.9% 1000 ML 1,000 ML ONE (03:18)
[2019-11-16 04:37] LABS: Basophils # (Auto) 0.1 K/mm3 (0.0-0.1); Eosinophils # (Auto) 0.3 K/mm3 (0.0-0.4); Eosinophils % (Auto) 4.8 % (0.0-4.3); Hematocrit 33.6 % (35.5-45.6); Hemoglobin 10.9 gm/dl (11.8-15.2); Lymphocytes # (Auto) 2.4 K/mm3 (1.2-5.4); Lymphocytes % (Auto) 45.2 % (13.4-35.0); Mean Corpuscular HGB Conc 32 % (32-34); Mean Corpuscular Volume 90 fl (84-94); Monocytes # (Auto) 0.4 K/mm3 (0.0-0.8); Monocytes % (Auto) 7.3 % (0.0-7.3); Platelet Count 152 K/mm3 (140-440); Red Blood Count 3.73 M/mm3 (3.65-5.03); Red Cell Distribution Width 16.2 % (13.2-15.2)
[2019-11-16 04:42] LABS: INR 0.95 (0.87-1.13)
[2019-11-16 04:43] LABS: Partial Thromboplastin Time 27.4 Sec. (24.2-36.6)
[2019-11-16] MEDS ORDERED: HEPARIN 5,000 UNIT/1 ML VIAL SUB-Q SCH (06:00)
[2019-11-16 06:16] LABS: Blood Urea Nitrogen TNR mg/dL (9-20)
[2019-11-16 06:17] LABS: BUN/Creatinine Ratio TNR
[2019-11-16 06:18] LABS: Calcium TNR mg/dL (8.4-10.2); Hemolysis Index TNR
--- NOTE | 2019-11-16 08:33 | Consultation ---
History of Present Illness Consult date: 11/16/19 Reason for consult: abdominal pain - History of present illness History of present illness: 19 yo M with hx of developmental delay who lives at a [facility] presents to ER with c/o diffuse abdominal pain. He has a surgical history significant for s/p Ex-lap with partial colon resection (07/23/19), abdominal colectomy with ileocol ostomy (07/26/19) and abdominal reexploration, peritoneal lavage, closure of open abdomen, placement of URMILA drain (07/28/19) for ischemic colon. He has a history of chronic constipation due to holding stool. Patient is a poor historian and no caregivers at bedside. Pt states he started having pain today. No n/v. He states he is not eating well at home because he doesn't like the food. He states he had 4 BMs today that were hard. Per nursing, not aware of any BMs while patient has been in ER. Pt is eating regular breakfast without abdominal pain, n/v. No f/c. Past History Past Medical History: other (bipolar disorder,down's syndrome, chronic constip ation) Past Surgical History: bowel surgery (s/p ex-lap with partial colon resection (07/23/19); s/p abdominal colectomy with ileocolostomy (07/26/19); s/p abdominal reexploration, peritoneal lavage, closure of open abdomen, placement of URMILA drain (07/28/19) ) Social history: no significant social history Family history: no significant family history Medications and Allergies Allergies Allergy/AdvReac Type Severity Reaction Status Date / Time No Known Allergies Allergy Verified 10/20/15 03:43 Home Medications Medication Instructions Recorded Confirmed Last Taken Type Benztropine [Cogentin] 0.5 mg PO QHS 05/17/19 07/24/19 Unknown History Divalproex ER [Depakote ER] 500 mg PO BID 05/17/19 07/24/19 Unknown History clonazePAM [KlonoPIN] 2 mg PO BID 05/17/19 07/24/19 Unknown History traZODone [Desyrel] 100 mg PO HS 06/05/19 07/24/19 Unknown History Lactulose 10 gm PO DAILY PRN #150 ml 07/21/19 Unknown Rx Acetaminophen [Acetaminophen 650 mg GA Q4H PRN supp.rect 08/08/19 Unknown Rx SUPPOS] Enoxaparin 40 mg SUB-Q DAILY syringe 08/08/19 Unknown Rx Lipase/Protease/Amylase [Pancreaze 1 each FEEDTUBE PRN PRN capsule 08/08/19 Unknown Rx 10,500 Unit] Total Parenteral Nutrition [TPN See Protocol IV DAILY@2000 ml 08/08/19 Unknown Rx Adult] hydrALAZINE [Apresoline INJ] 10 mg IV Q4HR PRN vial 08/08/19 Unknown Rx Active Meds: Active Medications Acetaminophen (Tylenol) 650 mg PO Q4H PRN PRN Reason: Pain MILD(1-3)/Fever >100.5/BARRY Bisacodyl (Dulcolax) 10 mg GA QDAY STEPHEN Dextrose (D50w (25gm) Vial) 0 gm IV Q30MIN PRN; Protocol PRN Reason: Hypoglycemia Heparin Sodium (Porcine) (Heparin) 5,000 unit SUB-Q Q8HR STEPHEN Last Admin: 11/16/19 06:25 Dose: Not Given Documented by: Sodium Chloride (Nacl 0.9% 1000 Ml) 1,000 mls @ 125 mls/hr IV DIRECT STEPHEN Last Admin: 11/16/19 05:30 Dose: 125 mls/hr Documented by: Magnesium Hydroxide (Milk Of Magnesia) 30 ml PO Q4H PRN PRN Reason: Constipation Morphine Sulfate (Morphine) 2 mg IV Q4H PRN PRN Reason: Pain, Moderate (4-6) Ondansetron HCl (Zofran) 4 mg IV Q8H PRN PRN Reason: Nausea And Vomiting Polyethylene Glycol (Miralax 3350) 17 gm PO QDAY STEPHEN Senna (Senokot) 17.6 mg PO Q12HR PRN PRN Reason: Laxative Effect Sodium Chloride (Sodium Chloride Flush Syringe 10 Ml) 10 ml IV BID STEPHEN Sodium Chloride (Sodium Chloride Flush Syringe 10 Ml) 10 ml IV PRN PRN PRN Reason: LINE FLUSH Review of Systems ROS unobtainable: due to mental status Exam Vital Signs BP 73/24 11/15/19 20:24 Narrative exam: Gen: Awake and alert. Oriented to person. Needs to be redirected multiple times. NAD ENT: no scleral icterus or conjunctival pallor CV: s1, S2+ resp: even and unlabored Abd: soft, NT, ND. No r/r/g. Well healed midline surgical scar Ext: no c/c/e Results - Labs 11/16/19 04:08 11/16/19 04:08 Abnormal lab results 11/15/19 11/15/19 11/15/19 Range/Units 21:15 21:15 21:15 RBC (3.65-5.03) M/mm3 Hgb (11.8-15.2) gm/dl Hct (35.5-45.6) % RDW (13.2-15.2) % Plt Count (140-440) K/mm3 Lymph % (Auto) (13.4-35.0) % Rogers % (Auto) (0.0-7.3) % Eos % (Auto) (0.0-4.3) % Sodium (137-145) mmol/L Potassium (3.6-5.0) mmol/L BUN (9-20) mg/dL Creatinine (0.8-1.5) mg/dL Magnesium 2.40 H (1.7-2.3) mg/dL Total Creatine Kinase 229 H (55-170) units/L Albumin (3.9-5) g/dL TSH 4.920 H (0.270-4.200) mlU/mL Salicylates < 0.3 L (2.8-20.0) mg/dL Acetaminophen (10.0-30.0) ug/mL Valproic Acid 103.2 H (50-100) ug/mL 11/15/19 11/15/19 11/15/19 Range/Units 21:15 21:15 21:15 RBC 3.38 L (3.65-5.03) M/mm3 Hgb 9.9 L (11.8-15.2) gm/dl Hct 30.4 L (35.5-45.6) % RDW 15.5 H (13.2-15.2) % Plt Count 138 L (140-440) K/mm3 Lymph % (Auto) 40.2 H (13.4-35.0) % Rogers % (Auto) 10.5 H (0.0-7.3) % Eos % (Auto) 4.6 H (0.0-4.3) % Sodium 136 L (137-145) mmol/L Potassium 6.3 H* (3.6-5.0) mmol/L BUN 23 H (9-20) mg/dL Creatinine 1.7 H (0.8-1.5) mg/dL Magnesium (1.7-2.3) mg/dL Total Creatine Kinase (55-170) units/L Albumin 3.3 L (3.9-5) g/dL TSH (0.270-4.200) mlU/mL Salicylates (2.8-20.0) mg/dL Acetaminophen < 5.0 L (10.0-30.0) ug/mL Valproic Acid (50-100) ug/mL 11/16/19 Range/Units 04:08 RBC (3.65-5.03) M/mm3 Hgb 10.9 L (11.8-15.2) gm/dl Hct 33.6 L (35.5-45.6) % RDW 16.2 H (13.2-15.2) % Plt Count (140-440) K/mm3 Lymph % (Auto) 45.2 H (13.4-35.0) % Rogers % (Auto) (0.0-7.3) % Eos % (Auto) 4.8 H (0.0-4.3) % Sodium (137-145) mmol/L Potassium (3.6-5.0) mmol/L BUN (9-20) mg/dL Creatinine (0.8-1.5) mg/dL Magnesium (1.7-2.3) mg/dL Total Creatine Kinase (55-170) units/L Albumin (3.9-5) g/dL TSH (0.270-4.200) mlU/mL Salicylates (2.8-20.0) mg/dL Acetaminophen (10.0-30.0) ug/mL Valproic Acid (50-100) ug/mL Diabetes panel 11/15/19 11/16/19 Range/Units 21:15 04:08 Sodium 136 L TNR (137-145) mmol/L Potassium 6.3 H* TNR (3.6-5.0) mmol/L Chloride 101.2 TNR (98-107) mmol/L Carbon Dioxide 24 TNR (22-30) mmol/L BUN 23 H TNR (9-20) mg/dL Creatinine 1.7 H TNR (0.8-1.5) mg/dL Glucose 80 TNR (75-100) mg/dL Calcium 9.1 TNR (8.4-10.2) mg/dL AST 11 (5-40) units/L ALT 7 (7-56) units/L Alkaline Phosphatase 47 (35-129) units/L Total Protein 6.6 (6.3-8.2) g/dL Albumin 3.3 L (3.9-5) g/dL Thyroid panel 11/15/19 Range/Units 21:15 TSH 4.920 H (0.270-4.200) mlU/mL Calcium panel 11/15/19 11/16/19 Range/Units 21:15 04:08 Calcium 9.1 TNR (8.4-10.2) mg/dL Albumin 3.3 L (3.9-5) g/dL Pituitary panel 11/15/19 11/15/19 11/16/19 Range/Units 21:15 21:15 04:08 Sodium 136 L TNR (137-145) mmol/L Potassium 6.3 H* TNR (3.6-5.0) mmol/L Chloride 101.2 TNR (98-107) mmol/L Carbon Dioxide 24 TNR (22-30) mmol/L BUN 23 H TNR (9-20) mg/dL Creatinine 1.7 H TNR (0.8-1.5) mg/dL Glucose 80 TNR (75-100) mg/dL Calcium 9.1 TNR (8.4-10.2) mg/dL TSH 4.920 H (0.270-4.200) mlU/mL Adrenal panel 11/15/19 11/16/19 Range/Units 21:15 04:08 Sodium 136 L TNR (137-145) mmol/L Potassium 6.3 H* TNR (3.6-5.0) mmol/L Chloride 101.2 TNR (98-107) mmol/L Carbon Dioxide 24 TNR (22-30) mmol/L BUN 23 H TNR (9-20) mg/dL Creatinine 1.7 H TNR (0.8-1.5) mg/dL Glucose 80 TNR (75-100) mg/dL Calcium 9.1 TNR (8.4-10.2) mg/dL Total Bilirubin < 0.20 (0.1-1.2) mg/dL AST 11 (5-40) units/L ALT 7 (7-56) units/L Alkaline Phosphatase 47 (35-129) units/L Total Protein 6.6 (6.3-8.2) g/dL Albumin 3.3 L (3.9-5) g/dL - Imaging CT scan - abdomen: report reviewed, image reviewed CT scan - pelvis: report reviewed, image reviewed Assessment and Plan 19 yo M with 1. chronic constipation, functional 2. dehydration 3. psych history Plan: 1. bowel regimen - miralax, suppository, enema. Please continue bowel regimen - colace BID, miralax daily prn, and dulcolax GA PRN upon dc 2. reg diet already initiated by 1' service and patient is tolerating 3. follow up with Dr. Tilley as outpatient in 2 weeks No surgical intervention. Thank you, please call with questions D/W Dr. Velazquez
[2019-11-16 09:31] LABS: BUN/Creatinine Ratio 13; Blood Urea Nitrogen 14 mg/dL (9-20); Calcium 9.1 mg/dL (8.4-10.2); Hemolysis Index 12
[2019-11-16] MEDS ORDERED: POLYETHYLENE GLYCOL 3350 17 GM POWDER PO SCH (10:00)
[2019-11-16] MEDS ORDERED: SENNOSIDES ORAL LIQD 8.8 MG/5 ML ORAL LIQD PO PRN (10:00)
--- NOTE | 2019-11-16 11:22 | Discharge Summary ---
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 Abdominal pain is said to be generalized. There is no nausea vomiting and there is no diarrhea. He denies any fever and denies any chills. No headache or dizziness. Patient has known history of abdominal surgery in the past namely abdominal colectomy and ileocolostomy. Upon arrival in the emergency room his work-up reveals hyperkalemia with potassium 6.3, CT of the abdomen reveals constipation otherwise there were no acute findings. He was however hypotensive and had boluses of IV fluid with improvement in his blood pressure. Following admission patient was seen by general surgery noted to have chronic constipation which is functional patient was hydrated and was given diet tolerated diet also had a bowel movement. Surgery recommended a bowel regimen to include MiraLAX suppository and Nemmers and Colace twice daily MiraLAX daily as needed and Dulcolax as needed and discharge this was ordered for the patient. And also recommended to follow-up outpatient. 1. chronic constipation, functional 2. dehydration 3. psych history 4 hyperkalemia now resolved 5. Acute kidney injury secondary to vasomotor nephropathy Disposition: - TO HOME OR SELFCARE Time spent for discharge: 35 mins Core Measure Documentation - Palliative Care Palliative Care/ Comfort Measures: Not Applicable - Core Measures Any of the following diagnoses?: none Exam - Physical Exam Narrative exam: VITAL SIGNS: Reviewed. GENERAL: The patient appears normally developed, developmentally delayed vital signs as documented. HEAD: No signs of head trauma. EYES: Pupils are equal. Extraocular motions intact. EARS: Hearing grossly intact. MOUTH: Oropharynx is normal. NECK: No adenopathy, no JVD. CHEST: Chest with clear breath sounds bilaterally. No wheezes, rales, or rhonchi. CARDIAC: Regular rate and rhythm. S1 and S2, without murmurs, gallops, or rubs. VASCULAR: No Edema. Peripheral pulses normal and equal in all extremities. ABDOMEN: Soft, well-healed surgical scar in the abdomen. Non tender and non distended. No rebound or guarding, and no masses palpated. Bowel Sounds normal. MUSCULOSKELETAL: Good range of motion of all major joints. Extremities without clubbing, cyanosis or edema. NEUROLOGIC EXAM: Alert and oriented x 2 no focal sensory or strength deficits. Speech normal. Follows commands. PSYCHIATRIC: Mood normal. SKIN: detial exam as documented in skin assessment - Constitutional Vitals: Temp Pulse Resp BP Pulse Ox 98 F 103 H 20 116/55 98 11/15/19 20:53 11/16/19 09:35 11/16/19 09:35 11/16/19 09:35 11/16/19 09:35 Plan Activity: advance as tolerated, fall precautions Diet: low fat Special Instructions: record daily BP diary Follow up with: PRIMARY CAREMD [Primary Care Provider] - 3-5 Days ASHISH HARVEY MD [Staff Physician] - 14 Days Prescriptions: Docusate Sodium [Colace] 100 mg PO BID PRN #60 capsule PRN Reason: Constipation bisacodyL [Dulcolax suppos] 10 mg [place] QDAY #30 supp.rect Polyethylene Glycol 3350 [Miralax 3350] 17 gm PO QDAY #30 powd.pack Sennosides Oral Liqd [Senokot] 17.6 mg PO Q12HR PRN #30 oral.liqd PRN Reason: Laxative Effect
[2019-11-16 12:56] VITALS: BP 123/67
== END 2019-11-16 12:47 | disposition home or self-care (01) ==
LOC: ED 20:01 → 3A 23:48
PROVIDERS: ADMIT Internal Medicine Geriatric Medicine; ATTEND Internal Medicine
DX: I95.9 Hypotension, unspecified (principal); R10.84 Generalized abdominal pain; N17.9 Acute kidney failure, unspecified; R10.9 Unspecified abdominal pain; K59.09 Other constipation; E87.5 Hyperkalemia; F20.9 Schizophrenia, unspecified; F31.9 Bipolar disorder, unspecified; Q90.9 Down syndrome, unspecified; E86.0 Dehydration; Z90.49 Acquired absence of other specified parts of digestive tract; Z79.899 Other long term (current) drug therapy
CPT/HCPCS: 36415; 70450; 71045; 74176; 80048; 80053; 80164; 81001; 82140; 82271; 82550; 82962; 83735; 84443; 85025; 85610; 85730; 87040; 87076; 87086; 87186; 93005; 93010; 94644; 96361; 96374; 96375; 96376; 99284; G0378; J7030; 80320; G0480; J1815

== ENCOUNTER 2020-02-16 09:46 | Inpatient (IN) | payer MEDICAID ==
[2020-02-16 10:22] LABS: Bilirubin,Urine NEG (Negative); Blood,Urine NEG (Negative); Color,Urine Yellow (Yellow); Hyaline Casts,Urine 2 /LPF; Mucus,Urine FEW /HPF; Protein,Urine <15 mg/dL mg/dL (Negative)
--- NOTE | 2020-02-16 10:37 | Emergency Department Report ---
Vomiting/Diarrhea - HPI Duration: 2 Days Severity: mild Pain Location: Generalized Pain Severity: Mild Symptoms: No Fever Other History: 19-year-old -Pakistani male in no acute distress nontoxic in appearance presents from detention stating that he had nausea and vomiting for 2 days. Patient has a psychiatric history of schizophrenia disorder bipolar, hypertension and Down syndrome. Patient comes in afebrile. <GUME THURMAN - Last Filed: 02/16/20 16:19> <JA CEDENO - Last Filed: 02/16/20 18:05> - HPI Chief Complaint: Nausea/Vomiting/Diarrhea Stated Complaint: N/V Time Seen by Provider: 02/16/20 10:36 ED Review of Systems ROS: Stated complaint: N/V Other details as noted in HPI Comment: All other systems reviewed and negative <GUME THURMAN - Last Filed: 02/16/20 16:19> ROS: Stated complaint: N/V Other details as noted in HPI <JA CEDENO - Last Filed: 02/16/20 18:05> ED Past Medical Hx - Past Medical History Previous Medical History?: Yes Hx Hypertension: No (stable off pressors >48hrs) Hx Heart Attack/AMI: No (EF 25-30% on recent TTE) Hx Congestive Heart Failure: No Hx Diabetes: No Hx Deep Vein Thrombosis: No Hx Liver Disease: No Hx Renal Disease: Yes (ARF requiring HD this admission now improved) Hx Seizures: Yes Hx Psychiatric Treatment: Yes (schizo affective disorder/bipolar) Hx Asthma: (Hx) Hx COPD: No Hx HIV: No Additional medical history: down syndrome - Surgical History Past Surgical History?: No Hx Pacemaker: No Hx Internal Defibrillator: No - Social History Smoking Status: Unknown if ever smoked Substance Use Type: Prescribed <GUME THURMAN - Last Filed: 02/16/20 16:19> <JA CEDENO - Last Filed: 02/16/20 18:05> - Medications Home Medications: Home Medications Medication Instructions Recorded Confirmed Last Taken Type Benztropine [Cogentin] 0.5 mg PO QHS 05/17/19 07/24/19 Unknown History Divalproex ER [Depakote ER] 500 mg PO BID 05/17/19 07/24/19 Unknown History clonazePAM [KlonoPIN] 2 mg PO BID 05/17/19 07/24/19 Unknown History traZODone [Desyrel] 100 mg PO HS 06/05/19 07/24/19 Unknown History Lactulose 10 gm PO DAILY PRN #150 ml 07/21/19 Unknown Rx Acetaminophen [Acetaminophen 650 mg IN Q4H PRN supp.rect 08/08/19 Unknown Rx SUPPOS] Enoxaparin 40 mg SUB-Q DAILY syringe 08/08/19 Unknown Rx Lipase/Protease/Amylase [Pancreaze 1 each FEEDTUBE PRN PRN capsule 08/08/[address] 10,500 Unit] Total Parenteral Nutrition [TPN See Protocol IV DAILY@2000 ml 08/08/19 Unknown Rx Adult] hydrALAZINE [Apresoline INJ] 10 mg IV Q4HR PRN vial 08/08/19 Unknown Rx Docusate Sodium [Colace] 100 mg PO BID PRN #60 capsule 11/16/19 Unknown Rx Sennosides Oral Liqd [Senokot] 17.6 mg PO Q12HR PRN #30 oral.liqd 11/16/19 Unknown Rx bisacodyL [Dulcolax suppos] 10 mg IN QDAY #30 supp.rect 11/16/19 Unknown Rx polyethylene glycoL 3350 [Miralax 17 gm PO QDAY #30 powd.pack 11/16/19 Unknown Rx 3350] Vomiting Diarrhea Exam - Exam General: Vital signs noted. No distress. Alert and acting appropriately. HEENT: Yes Moist Mucous Membranes, No Pharyngeal Erythema, No Pharyngeal Exudates, No Rhinorrhea, No Conjuctival Injection, No Frontal Tenderness, No Maxillary Tenderness Neck: No Adenopathy, No Rigidity Lungs: Yes Clear Lung Sounds, Yes Good Air Exchange, No Wheezes, No Stridor, No Cough, No Nasal Flaring, No Retractions, No Use of Accessory Muscles Heart exam: Regular: Yes, Murmur: No, Tachycardia: No Abdomen: Tenderness: Yes, Peritoneal Signs: No, Distention: No, Hyperactive Bowel sounds: No Skin exam: Rash: No, Edema: No, Normal turgor: Yes Neurologic: Alert and oriented, no deficits. Musculoskeletal: Unremarkable. <GUME THURMAN - Last Filed: 02/16/20 16:19> - Exam General: Vital signs noted. No distress. Alert and acting appropriately. Neurologic: Alert and oriented, no deficits. Musculoskeletal: Unremarkable. <JA CEDENO - Last Filed: 02/16/20 18:05> ED Course Vital Signs 02/16/20 09:51 Temperature 98.2 F Pulse Rate 101 H Respiratory 13 Rate Blood Pressure 106/70 O2 Sat by Pulse 100 Oximetry <GUME THURMAN - Last Filed: 02/16/20 16:19> Vital Signs 02/16/20 02/16/20 09:51 12:54 Temperature 98.2 F Pulse Rate 101 H 88 Respiratory 13 18 Rate Blood Pressure 106/70 Blood Pressure 110/70 [Left] O2 Sat by Pulse 100 98 Oximetry <JA CEDENO - Last Filed: 02/16/20 18:05> ED Medical Decision Making - Lab Data Result diagrams: 02/16/20 10:28 02/16/20 10:28 Laboratory Tests 02/16/20 02/16/20 02/16/20 10:28 10:28 Unknown WBC 11.0 RBC 4.27 Hgb 13.0 Hct 38.5 MCV 90 MCH 30 MCHC 34 RDW 15.4 H Plt Count 200 Lymph % (Auto) 10.[address] % (Auto) 6.3 Eos % (Auto) 0.1 Baso % (Auto) 0.3 Lymph # 1.[address] [place] # 0.7 Eos # 0.0 Baso # 0.0 Seg Neutrophils % 83.3 H Seg Neutrophils # 9.1 H Sodium 140 Potassium 4.8 Chloride 98.4 Carbon Dioxide 28 Anion Gap 18 BUN 11 Creatinine 1.1 Estimated GFR > 60 BUN/Creatinine Ratio 10 Glucose 105 H Calcium 10.4 H Total Bilirubin 0.50 AST 12 ALT 8 Alkaline Phosphatase 61 Total Protein 7.7 Albumin 4.3 Albumin/Globulin Ratio 1.3 Lipase 9 L Urine Color Yellow Urine Turbidity Clear Urine pH 7.0 Ur Specific Elaine 1.023 Urine Protein <15 mg/dl Urine Glucose (UA) Neg Urine Ketones Neg Urine Blood Neg Urine Nitrite Neg Urine Bilirubin Neg Urine Urobilinogen 4.0 Ur Leukocyte Esterase Tr Urine WBC (Auto) 7.0 H Urine RBC (Auto) 1.0 U Epithel Cells (Auto) < 1.0 Hyaline Casts 2 Urine Mucus Few - Radiology Data Radiology results: report reviewed Patient: NICOLETTE OLIVEIRA MR# : [id number] : 2000 Acct:[id number] Age/Sex: 19 / M ADM Date: 02/16/20 Loc: ED Attending Dr: Ordering Physician: MINI VANCE Date of Service: 02/16/20 Procedure(s): CT abdomen pelvis w con Accession Number(s): [id number] cc: MINI VANCE CT ABDOMEN AND PELVIS WITH IV CONTRAST INDICATION: MAIN: Nausea vomiting abdominal pain x2days [id number] 100ml. COMPARISON: CT 11/15/2019. TECHNIQUE: All CT scans at this facility use dose modulation, automated exposure control, iterative reconstruction or weight based dosing, when appropriate, to reduce radiation dose to as low as reasonably achievable. FINDINGS: Lung Bases: No significant abnormality. Skeletal System: No acute abnormality. ABDOMEN: Liver: No significant abnormality. Gallbladder: No significant abnormality. Bile Ducts: No significant abnormality. Pancreas: No significant abnormality. Spleen: No significant abnormality. Adrenals: No significant abnormality. Right Kidney: No significant abnormality. Left Kidney: No significant abnormality. Upper GI tract: Proximal small bowel is dilated with air-fluid levels. Distal small bowel is collapsed. Lymph Nodes: No significant adenopathy. Aorta: No significant abnormality. Additional Findings: No significant abnormality. PELVIS: Colon: No acute abnormality. Postsurgical changes are noted. Urinary Bladder and Distal Ureters: No significant abnormality. Appendix: Removed. Lymph Nodes: No significant adenopathy. Additional Findings: None. IMPRESSION: 1. High-grade, relatively proximal small bowel obstruction may be due to adhesions in the right abdomen. There is some twisting of the mesentery. Obstruction may be due to some degree of internal hernia. Surgical consultation should be considered. 2. Incidental findings, as above. Signer Name: Luis Fernando Lam MD Signed: 02/16/2020 4:01 PM Workstation Name: [id number] Transcribed By: KAUR Dictated By: Luis Fernando Lam MD Electronically Authenticated By: Luis Fernando Lam MD Signed Date/Time: 02/16/20 1601 DD/ 1554 TD/TT: - Medical Decision Making 19-year-old -Pak[place] male in no acute distress nontoxic in appearance presents from detention stating that he had nausea and vomiting for 2 days. P ryan has a psychiatric history of schizophrenia disorder bipolar, hypertension and Down syndrome. Patient comes in afebrile. Patient was given Zofran. He is drinking 2 apple juice and one water without any vomiting. <GUME THURMAN - Last Filed: 02/16/20 16:19> - Lab Data Result diagrams: 02/16/20 10:28 02/16/20 10:28 - Medical Decision Making I discussed the patient with Dr. Goodwin, she advised to admit the patient to hospital and start an NG tube. <JA CEDENO - Last Filed: 02/16/20 18:05> Critical care attestation.: If time is entered above; I have spent that time in minutes in the direct care of this critically ill patient, excluding procedure time. <GUME THURMAN - Last Filed: 02/16/20 16:19> Critical care attestation.: If time is entered above; I have spent that time in minutes in the direct care of this critically ill patient, excluding procedure time. <JA CEDENO - Last Filed: 02/16/20 18:05> ED Disposition <GUME THURMAN - Last Filed: 02/16/20 16:19> Is pt being admited?: Yes <JA CEDENO - Last Filed: 02/16/20 18:05> Clinical Impression: Nausea and vomiting, Small bowel obstruction Disposition: OP ADMIT IP TO THIS HOSP Condition: Stable
[2020-02-16] MEDS ORDERED: ONDANSETRON 4 MG ODT TAB PO ONE (11:13)
[2020-02-16 12:34] LABS: Basophils % (Auto) 0.3 % (0.0-1.8); Eosinophils % (Auto) 0.1 % (0.0-4.3); Hematocrit 38.5 % (35.5-45.6); Lymphocytes # (Auto) 1.1 K/mm3 (1.2-5.4); Mean Corpuscular HGB Conc 34 % (32-34); Mean Corpuscular Volume 90 fl (84-94); Monocytes # (Auto) 0.7 K/mm3 (0.0-0.8); Monocytes % (Auto) 6.3 % (0.0-7.3); Platelet Count 200 K/mm3 (140-440); Red Blood Count 4.27 M/mm3 (3.65-5.03); Red Cell Distribution Width 15.4 % (13.2-15.2)
[2020-02-16 12:52] LABS: Alanine Aminotransferase 8 units/L (7-56); Albumin 4.3 g/dL (3.9-5); BUN/Creatinine Ratio 10; Blood Urea Nitrogen 11 mg/dL (9-20); Calcium 10.4 mg/dL (8.4-10.2); Hemolysis Index 3
--- NOTE | 2020-02-16 16:06 | Cat Scan Report ---
CT ABDOMEN AND PELVIS WITH IV CONTRAST INDICATION: MAIN: Nausea vomiting abdominal pain x2days [id number] 100ml. COMPARISON: CT 11/15/2019. TECHNIQUE: All CT scans at this facility use dose modulation, automated exposure control, iterative reconstructi on or weight based dosing, when appropriate, to reduce radiation dose to as low as reasonably achieva ble. FINDINGS: Lung Bases: No significant abnormality. Skeletal System: No acute abnormality. ABDOMEN: Liver: No significant abnormality. Gallbladder: No significant abnormality. Bile Ducts: No significant abnormality. Pancreas: No significant abnormality. Spleen: No significant abnormality. Adrenals: No significant abnormality. Right Kidney: No significant abnormality. Left Kidney: No significant abnormality. Upper GI tract: Proximal small bowel is dilated with air-fluid levels. Distal small bowel is collapse d. Lymph Nodes: No significant adenopathy. Aorta: No significant abnormality. Additional Findings: No significant abnormality. PELVIS: Colon: No acute abnormality. Postsurgical changes are noted. Urinary Bladder and Distal Ureters: No significant abnormality. Appendix: Removed. Lymph Nodes: No significant adenopathy. Additional Findings: None. IMPRESSION: 1. High-grade, relatively proximal small bowel obstruction may be due to adhesions in the right abdo men. There is some twisting of the mesentery. Obstruction may be due to some degree of internal herni a. Surgical consultation should be considered. 2. Incidental findings, as above. Signer Name: Luis Fernando Lam MD Signed: 02/16/2020 4:01 PM Workstation Name: [id number]
[2020-02-16] MEDS ORDERED: PIPERACILLIN/TAZOBACTAM 3.375 3.375 GM/50 ML BAG IV ONE (16:45)
[2020-02-16] MEDS ORDERED: SODIUM CHLORIDE 0.9% 1000 ML 1,000 ML IV ONE (16:45)
--- NOTE | 2020-02-16 21:24 | Consultation ---
History of Present Illness Consult date: 02/16/20 Reason for consult: abdominal pain - History of present illness History of present illness: 19 year old male with hx of downs syndrome, schizophrenia, bipolar and multiple abdominal surgeries (last surgery 7 months ago- colectomy for ischemic colon) presented to the ED with nausea and vomiting. CT scan showed proximal small bowel obstruction. Pt says that he currently is not having any abdominal pain denies vomiting. He had refused NGT earlier. Past History Past Medical History: seizures (schizophrenia, bipolar, downs syndrom), other Past Surgical History: bowel surgery, Other (colectomy, previous colostomy with reversal) Medications and Allergies Allergies Allergy/AdvReac Type Severity Reaction Status Date / Time No Known Allergies Allergy Verified 10/20/15 03:43 Home Medications Medication Instructions Recorded Confirmed Last Taken Type Benztropine [Cogentin] 0.5 mg PO QHS 05/17/19 07/24/19 Unknown History Divalproex ER [Depakote ER] 500 mg PO BID 05/17/19 07/24/19 Unknown History clonazePAM [KlonoPIN] 2 mg PO BID 05/17/19 07/24/19 Unknown History traZODone [Desyrel] 100 mg PO HS 06/05/19 07/24/19 Unknown History Lactulose 10 gm PO DAILY PRN #150 ml 07/21/19 Unknown Rx Acetaminophen [Acetaminophen 650 mg UT Q4H PRN supp.rect 08/08/19 Unknown Rx SUPPOS] Enoxaparin 40 mg SUB-Q DAILY syringe 08/08/19 Unknown Rx Lipase/Protease/Amylase [Pancreaze 1 each FEEDTUBE PRN PRN capsule 08/08/19 Unknown Rx 10,500 Unit] Total Parenteral Nutrition [TPN See Protocol IV DAILY@2000 ml 08/08/19 Unknown Rx Adult] hydrALAZINE [Apresoline INJ] 10 mg IV Q4HR PRN vial 08/08/19 Unknown Rx Docusate Sodium [Colace] 100 mg PO BID PRN #60 capsule 11/16/19 Unknown Rx Sennosides Oral Liqd [Senokot] 17.6 mg PO Q12HR PRN #30 oral.liqd 11/16/19 Unknown Rx bisacodyL [Dulcolax suppos] 10 mg UT QDAY #30 supp.rect 11/16/19 Unknown Rx polyethylene glycoL 3350 [Miralax 17 gm PO QDAY #30 powd.pack 11/16/19 Unknown Rx 3350] Review of Systems - Constitutional no weight loss - Cardiovascular no chest pain - Respiratory no cough - Gastrointestinal nausea, vomiting, no abdominal pain Exam Vital Signs Temp Pulse Resp BP Pulse Ox 98.2 F 101 H 13 106/70 100 02/16/20 09:51 02/16/20 09:51 02/16/20 09:51 02/16/20 09:51 02/16/20 09:51 - General physical appearance Positive: well developed, no distress, no pain - Respiratory Positive: normal expansion, normal respiratory effort - Cardiovascular Rhythm: regular Heart Sounds: Present: S1 & S2 - Extremities Extremities: no ischemia - Abdomen Abdomen: Present: soft. Absent: tender, distended, rebound, guarding, rigid - Psychiatric Psychiatric: cooperative Results - Labs 02/16/20 10:28 02/16/20 10:28 Abnormal lab results 02/16/20 02/16/20 02/16/20 Range/Units 10:28 10:28 Unknown RDW 15.4 H (13.2-15.2) % Lymph % (Auto) 10.0 L (13.4-35.0) % Lymph # 1.1 L (1.2-5.4) K/mm3 Seg Neutrophils % 83.3 H (40.0-70.0) % Seg Neutrophils # 9.1 H (1.8-7.7) K/mm3 Glucose 105 H (75-100) mg/dL Calcium 10.4 H (8.4-10.2) mg/dL Lipase 9 L (13-60) units/L Urine WBC (Auto) 7.0 H (0.0-6.0) /HPF Diabetes panel 02/16/20 Range/Units 10:28 Sodium 140 (137-145) mmol/L Potassium 4.8 (3.6-5.0) mmol/L Chloride 98.4 (98-107) mmol/L Carbon Dioxide 28 (22-30) mmol/L BUN 11 (9-20) mg/dL Creatinine 1.1 (0.8-1.5) mg/dL Glucose 105 H (75-100) mg/dL Calcium 10.4 H (8.4-10.2) mg/dL AST 12 (5-40) units/L ALT 8 (7-56) units/L Alkaline Phosphatase 61 (35-129) units/L Total Protein 7.7 (6.3-8.2) g/dL Albumin 4.3 (3.9-5) g/dL Calcium panel 02/16/20 Range/Units 10:28 Calcium 10.4 H (8.4-10.2) mg/dL Albumin 4.3 (3.9-5) g/dL Pituitary panel 02/16/20 Range/Units 10:28 Sodium 140 (137-145) mmol/L Potassium 4.8 (3.6-5.0) mmol/L Chloride 98.4 (98-107) mmol/L Carbon Dioxide 28 (22-30) mmol/L BUN 11 (9-20) mg/dL Creatinine 1.1 (0.8-1.5) mg/dL Glucose 105 H (75-100) mg/dL Calcium 10.4 H (8.4-10.2) mg/dL Adrenal panel 02/16/20 Range/Units 10:28 Sodium 140 (137-145) mmol/L Potassium 4.8 (3.6-5.0) mmol/L Chloride 98.4 (98-107) mmol/L Carbon Dioxide 28 (22-30) mmol/L BUN 11 (9-20) mg/dL Creatinine 1.1 (0.8-1.5) mg/dL Glucose 105 H (75-100) mg/dL Calcium 10.4 H (8.4-10.2) mg/dL Total Bilirubin 0.50 (0.1-1.2) mg/dL AST 12 (5-40) units/L ALT 8 (7-56) units/L Alkaline Phosphatase 61 (35-129) units/L Total Protein 7.7 (6.3-8.2) g/dL Albumin 4.3 (3.9-5) g/dL - Imaging CT scan - abdomen: report reviewed, image reviewed CT scan - pelvis: report reviewed, image reviewed Assessment and Plan 19 year old male with history of several previous abdominal surgeries presents with SBO, likely due to adhesive disease from previous surgeries. Stable, afebrile. Convince him to have NGT place and he cooperated. 800ml of bilious fluid aspirated after insertion. Pt tolerating well. Will continue NGT decompression and follow. If he clinically declines may need surgical intervention.
[2020-02-16] MEDS ORDERED: ONDANSETRON 4 MG/2 ML INJ IV PRN (21:50)
--- NOTE | 2020-02-17 02:47 | Event Note ---
Date: 02/16/20 See history and physical in the reports Small bowel obstruction Conservative treatment
--- NOTE | 2020-02-17 03:35 | History and Physical Report ---
CHIEF COMPLAINT: Vomiting persistently for 2 days. HISTORY OF PRESENT ILLNESS: A 19-year-old with multiple abdominal surgeries, comes in for persistent vomiting of 2 days' duration. The patient has history of Down syndrome, hypertension and schizophrenia, bipolar disorder. Afebrile. PAST MEDICAL HISTORY: Significant for chronic kidney disease and seizures and schizoaffective disorder. PAST SURGICAL HISTORY: Multiple abdominal surgeries. SOCIAL HISTORY: Does not smoke. No alcohol, no recreational drugs. FAMILY HISTORY: Hypertension. REVIEW OF SYSTEMS: Significant for vomiting persistently for the last 2 days. The patient has history of small-bowel obstruction in the past. PHYSICAL EXAMINATION: GENERAL: Young male, cooperative during examination, cheerful. VITAL SIGNS: Temperature 98.2, pulse is 101, respirations 13, blood pressure 106/70. HEENT: Unremarkable. Pupils equal and reactive. NECK: Supple. No lymphadenopathy, no thyromegaly. LUNGS: Clear to auscultation and percussion. Good air entry. CARDIOVASCULAR: S1, S2 heard. No gallop, no murmur, no rub. Apical impulse in left fifth intercostal space, midclavicular line. ABDOMEN: Decreased bowel sounds present. Tender. Hernial orifices are normal. EXTREMITIES: Good pedal pulses. No pedal edema. CENTRAL NERVOUS SYSTEM: Alert and oriented x 4, nonfocal exam. LABORATORY DATA: Significant for normal CBC and normal electrolytes. Urine normal. White blood cell 7.0. IMAGING: Abdominal CAT scan shows high-grade, relatively proximal small-bowel obstruction; may be due to adhesions in the right abdomen. There is some twisting of the mesentery. Obstruction may be due to some degree of internal hernia. ASSESSMENT AND PLAN: 1. Proximal small-bowel obstruction, nothing via mouth. NG tube if possible. The patient refuses NG tube. Surgical consult requested. 2. Schizophrenia. We will hold his medicines for the time being, especially the Depakote and clonazepam. IV Ativan as necessary on a p.r.n. basis. The patient is on Geodon; we will hold her Geodon for the time being. 3. Gastroesophageal reflux disease. We will hold the sucralfate. We will give IV Protonix. 4. Deep venous thrombosis prophylaxis, heparin 5000 q. 12. JOB# [id number] VSM/NTS
[2020-02-17] MEDS: HEPARIN 5,000 UNIT/1 ML VIAL SUB-Q SCH ×3 (03:40→22:45)
[2020-02-17] MEDS: SODIUM CHLORIDE 0.9% 1000 ML 1,000 ML IV SCH (03:40)
[2020-02-17] MEDS: FAMOTIDINE 20 MG/2 ML INJ IV SCH ×3 (03:41→22:45)
[2020-02-17 06:16] LABS: Hematocrit 34.2 % (35.5-45.6); Hemoglobin 11.5 gm/dl (11.8-15.2); Mean Corpuscular HGB Conc 34 % (32-34); Mean Corpuscular Volume 91 fl (84-94); Platelet Count 157 K/mm3 (140-440); Red Blood Count 3.78 M/mm3 (3.65-5.03)
[2020-02-17 06:38] LABS: Alanine Aminotransferase 6 units/L (7-56); Albumin 3.7 g/dL (3.9-5); BUN/Creatinine Ratio 10; Blood Urea Nitrogen 11 mg/dL (9-20); Calcium 9.7 mg/dL (8.4-10.2); Hemolysis Index 9
--- NOTE | 2020-02-17 10:41 | Progress Note ---
Assessment and Plan 19 year old male with SBO that is currently uncomplicated and likely due to adhesive disease from previous surgeries. Afebrile, and stable. will order KUB for am. If gas pattern is improved, and minimal output from NGT will remove NGT and start clears tomorrow. Pt allowed to have ice chips. Subjective Date of service: 02/17/20 Patient Reports: Positive: feels better (no acute events overnight. nurse said that only 150ml have been suctioned via NGT since her arrived from the ED. Pt says that he passed flatus. ), flatus Objective Vital Signs - 12hr 02/17/20 02/17/20 02/17/20 02:00 03:02 07:54 Temperature 98.4 F Pulse Rate 95 H 100 H Respiratory 20 Rate Respiratory 20 Rate [Medial Abdomen] Blood Pressure 127/78 O2 Sat by Pulse 100 Oximetry 02/17/20 08:41 Temperature 99.2 F Pulse Rate 95 H Respiratory 20 Rate Respiratory Rate [Medial Abdomen] Blood Pressure 118/75 O2 Sat by Pulse 97 Oximetry - General physical appearance well developed, no distress, no pain - Respiratory normal expansion, normal respiratory effort - Abdomen soft, not tender, other (NGT with bilious drainage) - Labs 02/17/20 05:45 02/17/20 05:45 Diabetes panel 02/16/20 02/17/20 Range/Units 10:28 05:45 Sodium 140 138 (137-145) mmol/L Potassium 4.8 4.8 (3.6-5.0) mmol/L Chloride 98.4 100.6 (98-107) mmol/L Carbon Dioxide 28 29 (22-30) mmol/L BUN 11 11 (9-20) mg/dL Creatinine 1.1 1.1 (0.8-1.5) mg/dL Glucose 105 H 93 (75-100) mg/dL Calcium 10.4 H 9.7 (8.4-10.2) mg/dL AST 12 10 (5-40) units/L ALT 8 6 L (7-56) units/L Alkaline Phosphatase 61 52 (35-129) units/L Total Protein 7.7 7.0 (6.3-8.2) g/dL Albumin 4.3 3.7 L (3.9-5) g/dL Calcium panel 02/16/20 02/17/20 Range/Units 10:28 05:45 Calcium 10.4 H 9.7 (8.4-10.2) mg/dL Albumin 4.3 3.7 L (3.9-5) g/dL Pituitary panel 02/16/20 02/17/20 Range/Units 10:28 05:45 Sodium 140 138 (137-145) mmol/L Potassium 4.8 4.8 (3.6-5.0) mmol/L Chloride 98.4 100.6 (98-107) mmol/L Carbon Dioxide 28 29 (22-30) mmol/L BUN 11 11 (9-20) mg/dL Creatinine 1.1 1.1 (0.8-1.5) mg/dL Glucose 105 H 93 (75-100) mg/dL Calcium 10.4 H 9.7 (8.4-10.2) mg/dL Adrenal panel 02/16/20 02/17/20 Range/Units 10:28 05:45 Sodium 140 138 (137-145) mmol/L Potassium 4.8 4.8 (3.6-5.0) mmol/L Chloride 98.4 100.6 (98-107) mmol/L Carbon Dioxide 28 29 (22-30) mmol/L BUN 11 11 (9-20) mg/dL Creatinine 1.1 1.1 (0.8-1.5) mg/dL Glucose 105 H 93 (75-100) mg/dL Calcium 10.4 H 9.7 (8.4-10.2) mg/dL Total Bilirubin 0.50 0.40 (0.1-1.2) mg/dL AST 12 10 (5-40) units/L ALT 8 6 L (7-56) units/L Alkaline Phosphatase 61 52 (35-129) units/L Total Protein 7.7 7.0 (6.3-8.2) g/dL Albumin 4.3 3.7 L (3.9-5) g/dL
[2020-02-17 10:45] LABS: Band Neutrophils # (Manual) 0.2 K/mm3; Basophils % (Manual) 0 % (0.0-1.8); Eosinophils % (Manual) 0 % (0.0-4.3); Total Cells Counted 100
[2020-02-17 10:46] LABS: Platelet Estimate Consistent w Auto; RBC Morphology Normal
--- NOTE | 2020-02-17 13:04 | Progress Note ---
Assessment and Plan Assessment and plan: --Small bowel obstruction; N.p.o. status, NG tube intermittent suction as needed Surgery evaluation noted and appreciated, ice chips Supportive care, Will place NG tube again --History of schizophrenia; May use oral medications if okay with surgery --GERD; IV Protonix --DVT prophylaxis; Heparin Surgery evaluation recommendation noted and appreciated Plan of care reviewed with the patient and the nurse History Interval history: Patient seen and examined at bedside Admitted with small bowel obstruction Surgery recommend NG tube, n.p.o., ice chips Patient pulled out NG tube, patient does not want it Asking for food Vital signs reviewed Hospitalist Physical - Constitutional Vitals: Temp Pulse Resp BP Pulse Ox 97.8 F 103 H 22 130/76 98 02/17/20 11:38 02/17/20 11:38 02/17/20 11:38 02/17/20 11:38 02/17/20 11:38 General appearance: Present: no acute distress, well-nourished - EENT Eyes: Present: PERRL, EOM intact - Neck Neck: Present: supple, normal ROM - Respiratory Respiratory effort: normal Respiratory: bilateral: diminished, negative: rales, rhonchi, wheezing - Cardiovascular Rhythm: regular Heart Sounds: Present: S1 & S2 - Extremities Extremities: no ischemia, No edema - Abdominal General gastrointestinal: soft, non-tender, distended, hypoactive bowel sounds - Integumentary Integumentary: Present: clear, warm - Psychiatric Psychiatric: appropriate mood/affect, cooperative, other (Confused at times) - Neurologic Neurologic: moves all extremities Results - Labs CBC & Chem 7: 02/17/20 05:45 02/17/20 05:45 Labs: Laboratory Last Values WBC 6.0 K/mm3 (4.5-11.0) 02/17/20 05:45 RBC 3.78 M/mm3 (3.65-5.03) 02/17/20 05:45 Hgb 11.5 gm/dl (11.8-15.2) L 02/17/20 05:45 Hct 34.2 % (35.5-45.6) L 02/17/20 05:45 MCV 91 fl (84-94) 02/17/20 05:45 MCH 31 pg (28-32) 02/17/20 05:45 MCHC 34 % (32-34) 02/17/20 05:45 RDW 15.0 % (13.2-15.2) 02/17/20 05:45 Plt Count 157 K/mm3 (140-440) 02/17/20 05:45 Lymph % (Auto) 10.0 % (13.4-35.0) L 02/16/20 10:28 [place] % (Auto) Dat Instructor 02/17/20 05:45 Eos % (Auto) 0.1 % (0.0-4.3) 02/16/20 10:28 Baso % (Auto) 0.3 % (0.0-1.8) 02/16/20 10:28 Lymph # 1.1 K/mm3 (1.2-5.4) L 02/16/20 10:28 [place] # 0.7 K/mm3 (0.0-0.8) 02/16/20 10:28 Eos # 0.0 K/mm3 (0.0-0.4) 02/16/20 10:28 Baso # 0.0 K/mm3 (0.0-0.1) 02/16/20 10:28 Add Manual Diff Complete 02/17/20 05:45 Total Counted 100 02/17/20 05:45 Seg Neutrophils % 83.3 % (40.0-70.0) H 02/16/20 10:28 Seg Neuts % (Manual) 61.0 % (40.0-70.0) 02/17/20 05:45 Band Neutrophils % 4.0 % 02/17/20 05:45 Lymphocytes % (Manual) 22.0 % (13.4-35.0) 02/17/20 05:45 Reactive Lymphs % (Man) 0 % 02/17/20 05:45 Monocytes % (Manual) 12.0 % (0.0-7.3) H 02/17/20 05:45 Eosinophils % (Manual) 0 % (0.0-4.3) 02/17/20 05:45 Basophils % (Manual) 0 % (0.0-1.8) 02/17/20 05:45 Metamyelocytes % 1.0 % 02/17/20 05:45 Myelocytes % 0 % 02/17/20 05:45 Promyelocytes % 0 % 02/17/20 05:45 Blast Cells % 0 % 02/17/20 05:45 Nucleated RBC % Not Reportable 02/17/20 05:45 Seg Neutrophils # 9.1 K/mm3 (1.8-7.7) H 02/16/20 10:28 Seg Neutrophils # Man 3.7 K/mm3 (1.8-7.7) 02/17/20 05:45 Band Neutrophils # 0.2 K/mm3 02/17/20 05:45 Lymphocytes # (Manual) 1.3 K/mm3 (1.2-5.4) 02/17/20 05:45 Abs React Lymphs (Man) 0.0 K/mm3 02/17/20 05:45 Monocytes # (Manual) 0.7 K/mm3 (0.0-0.8) 02/17/20 05:45 Eosinophils # (Manual) 0.0 K/mm3 (0.0-0.4) 02/17/20 05:45 Basophils # (Manual) 0.0 K/mm3 (0.0-0.1) 02/17/20 05:45 Metamyelocytes # 0.1 K/mm3 02/17/20 05:45 Myelocytes # 0.0 K/mm3 02/17/20 05:45 Promyelocytes # 0.0 K/mm3 02/17/20 05:45 Blast Cells # 0.0 K/mm3 02/17/20 05:45 WBC Morphology Not Reportable 02/17/20 05:45 Hypersegmented Neuts Not Reportable 02/17/20 05:45 Hyposegmented Neuts Not Reportable 02/17/20 05:45 Hypogranular Neuts Not Reportable 02/17/20 05:45 Smudge Cells Not Reportable 02/17/20 05:45 Toxic Granulation Not Reportable 02/17/20 05:45 Toxic Vacuolation Not Reportable 02/17/20 05:45 Dohle Bodies Not Reportable 02/17/20 05:45 Pelger-Huet Anomaly Not Reportable 02/17/20 05:45 Alea Rods Not Reportable 02/17/20 05:45 Platelet Estimate Consistent w auto 02/17/20 05:45 Clumped Platelets Not Reportable 02/17/20 05:45 Plt Clumps, EDTA Not Reportable 02/17/20 05:45 Large Platelets Not Reportable 02/17/20 05:45 Giant Platelets Not Reportable 02/17/20 05:45 Platelet Satelliting Not Reportable 02/17/20 05:45 Plt Morphology Comment Not Reportable 02/17/20 05:45 RBC Morphology Normal 02/17/20 05:45 Dimorphic RBCs Not Reportable 02/17/20 05:45 Polychromasia Not Reportable 02/17/20 05:45 Hypochromasia Not Reportable 02/17/20 05:45 Poikilocytosis Not Reportable 02/17/20 05:45 Anisocytosis Not Reportable 02/17/20 05:45 Microcytosis Not Reportable 02/17/20 05:45 Macrocytosis Not Reportable 02/17/20 05:45 Spherocytes Not Reportable 02/17/20 05:45 Pappenheimer Bodies Not Reportable 02/17/20 05:45 Sickle Cells Not Reportable 02/17/20 05:45 Target Cells Not Reportable 02/17/20 05:45 Tear Drop Cells Not Reportable 02/17/20 05:45 Ovalocytes Not Reportable 02/17/20 05:45 Helmet Cells Not Reportable 02/17/20 05:45 [place] Bodies Not Reportable 02/17/20 05:45 Guys Rings Not Reportable 02/17/20 05:45 Kaylyn Cells Not Reportable 02/17/20 05:45 Bite Cells Not Reportable 02/17/20 05:45 Crenated Cell Not Reportable 02/17/20 05:45 Elliptocytes Not Reportable 02/17/20 05:45 Acanthocytes (Spur) Not Reportable 02/17/20 05:45 Rouleaux Not Reportable 02/17/20 05:45 Hemoglobin C Crystals Not Reportable 02/17/20 05:45 Schistocytes Not Reportable 02/17/20 05:45 Malaria parasites Not Reportable 02/17/20 05:45 Emanuel Bodies Not Reportable 02/17/20 05:45 Hem Pathologist Commnt No 02/17/20 05:45 Sodium 138 mmol/L (137-145) 02/17/20 05:45 Potassium 4.8 mmol/L (3.6-5.0) 02/17/20 05:45 Chloride 100.6 mmol/L (98-107) 02/17/20 05:45 Carbon Dioxide 29 mmol/L (22-30) 02/17/20 05:45 Anion Gap 13 mmol/L 02/17/20 05:45 BUN 11 mg/dL (9-20) 02/17/20 05:45 Creatinine 1.1 mg/dL (0.8-1.5) 02/17/20 05:45 Estimated GFR > 60 ml/min 02/17/20 05:45 BUN/Creatinine Ratio 10 % 02/17/20 05:45 Glucose 93 mg/dL (75-100) 02/17/20 05:45 Calcium 9.7 mg/dL (8.4-10.2) 02/17/20 05:45 Total Bilirubin 0.40 mg/dL (0.1-1.2) 02/17/20 05:45 AST 10 units/L (5-40) 02/17/20 05:45 ALT 6 units/L (7-56) L 02/17/20 05:45 Alkaline Phosphatase 52 units/L (35-129) 02/17/20 05:45 Total Protein 7.0 g/dL (6.3-8.2) 02/17/20 05:45 Albumin 3.7 g/dL (3.9-5) L 02/17/20 05:45 Albumin/Globulin Ratio 1.1 % 02/17/20 05:45 Lipase 9 units/L (13-60) L 02/16/20 10:28 Urine Color Yellow (Yellow) 02/16/20 Unknown Urine Turbidity Clear (Clear) 02/16/20 Unknown Urine pH 7.0 (5.0-7.0) 02/16/20 Unknown Ur Specific [place] 1.023 (1.003-1.030) 02/16/20 Unknown Urine Protein <15 mg/dl mg/dL (Negative) 02/16/20 Unknown Urine Glucose (UA) Neg mg/dL (Negative) 02/16/20 Unknown Urine Ketones Neg mg/dL (Negative) 02/16/20 Unknown Urine Blood Neg (Negative) 02/16/20 Unknown Urine Nitrite Neg (Negative) 02/16/20 Unknown Urine Bilirubin Neg (Negative) 02/16/20 Unknown Urine Urobilinogen 4.0 mg/dL (<2.0) 02/16/20 Unknown Ur Leukocyte Esterase Tr (Negative) 02/16/20 Unknown Urine WBC (Auto) 7.0 /HPF (0.0-6.0) H 02/16/20 Unknown Urine RBC (Auto) 1.0 /HPF (0.0-6.0) 02/16/20 Unknown U Epithel Cells (Auto) < 1.0 /HPF (0-13.0) 02/16/20 Unknown Hyaline Casts 2 /LPF 02/16/20 Unknown Urine Mucus Few /HPF 02/16/20 Unknown Mcpherson/IV: Voiding Method Urinal IV Catheter Type [Right INT / Saline Lock Antecubital] Active Medications - Current Medications Current Medications: Generic Name Dose Route Start Last Admin Trade Name Freq PRN Reason Stop Dose Admin Acetaminophen 650 mg 02/17/20 02:52 Tylenol PO Q4H PRN Pain MILD(1-3)/Fever >100.5/BARRY Famotidine 20 mg 02/17/20 03:00 02/17/20 09:08 Pepcid IV 20 mg BID STEPHEN Administration Heparin Sodium (Porcine) 5,000 unit 02/17/20 03:00 02/17/20 09:08 Heparin SUB-Q 5,000 unit Q12HR STEPHEN Administration Hydromorphone HCl 0.5 mg 02/16/20 21:50 Dilaudid IV Q3H PRN Pain , Severe (7-10) Sodium Chloride 1,000 mls @ 75 mls/hr 02/17/20 03:00 02/17/20 03:40 Nacl 0.9% 1000 Ml IV 75 mls/hr DIRECT STEPHEN Administration Ondansetron HCl 4 mg 02/17/20 02:52 Zofran IV Q8H PRN Nausea And Vomiting Sodium Chloride 10 ml 02/17/20 10:00 02/17/20 09:08 Sodium Chloride Flush Syringe 10 Ml IV 10 ml BID STEPHEN Administration Sodium Chloride 10 ml 02/17/20 02:52 Sodium Chloride Flush Syringe 10 Ml IV PRN PRN LINE FLUSH
[2020-02-17] MEDS ORDERED: WATER FOR INJ Sterile (PF) 10 ML ONE (14:37)
[2020-02-17] MEDS: ZIPRASIDONE MESYLATE 20 MG VIAL IM PRN (14:42)
--- NOTE | 2020-02-17 16:19 | XRay Report ---
CHEST 1 VIEW 02/17/2020 3:59 PM INDICATION / CLINICAL INFORMATION: Tube placement. COMPARISON: 11/15/19 FINDINGS: SUPPORT DEVICES: Esophagogastric tube has been placed below the diaphragm into the stomach. HEART / MEDIASTINUM: No significant abnormality. LUNGS / PLEURA: No significant pulmonary or pleural abnormality. No pneumothorax. ADDITIONAL FINDINGS: No significant additional findings. IMPRESSION: 1. Esophagogastric tube in expected position. Signer Name: Elysia Cain MD Signed: 02/17/2020 4:15 PM Workstation Name: [id number]
[2020-02-17] MEDS: traZODone 100 MG TAB PO SCH (22:45)
[2020-02-17] MEDS: DIVALPROEX ER 500 MG TAB PO SCH (22:45)
[2020-02-17] MEDS: BENZTROPINE 0.5 MG TAB PO SCH (22:47)
[2020-02-18] MEDS: SODIUM CHLORIDE 0.9% 1000 ML 1,000 ML IV SCH (00:04)
[2020-02-18 05:52] LABS: BUN/Creatinine Ratio 12; Blood Urea Nitrogen 12 mg/dL (9-20); Calcium 10.2 mg/dL (8.4-10.2); Hemolysis Index 1
--- NOTE | 2020-02-18 08:11 | XRay Report ---
ABDOMEN 1 VIEW(S) INDICATION / CLINICAL INFORMATION: SBO follow up. COMPARISON: CT abdomen pelvis dated 02/16/2020 FINDINGS: The lung bases and upper abdomen are cut off the [id number]. Mildly dilated loops of small bowel i n the upper abdomen appear grossly unchanged since the CT performed 2 days ago. There is normal gas i n the colon. Large stool in the rectosigmoid colon has decreased by 50%. IMPRESSION: No significant change in the mildly dilated bowel loops in the upper abdomen. Decreased fecal retenti on in the distal colon. Signer Name: Jacob Corrales Jr, MD Signed: 02/18/2020 8:07 AM Workstation Name: [id number]
[2020-02-18] MEDS ORDERED: CALCIUM CHLORIDE 1,000 MG in SODIUM CHLORIDE 0.9% 100 ML IV ONE (09:30)
[2020-02-18] MEDS: DIVALPROEX ER 500 MG TAB PO SCH ×2 (10:02→21:28)
[2020-02-18] MEDS: BENZTROPINE 0.5 MG TAB PO SCH ×2 (10:02→21:28)
[2020-02-18] MEDS: FAMOTIDINE 20 MG/2 ML INJ IV SCH ×2 (10:02→21:28)
[2020-02-18] MEDS: HEPARIN 5,000 UNIT/1 ML VIAL SUB-Q SCH ×3 (10:02→21:28)
[2020-02-18] MEDS: ZIPRASIDONE MESYLATE 20 MG VIAL IM PRN (10:37)
--- NOTE | 2020-02-18 11:54 | Progress Note ---
Assessment and Plan - Patient Problems (1) Small bowel obstruction Current Visit: Yes Status: Acute Plan to address problem: Pt stable. Dr. Goodwin and I discussed the case this morning. As I was the main surgeon that last operated on him in July 2019, I have offered to take over the case. Chart has been reviewed. Patient has a completely benign abdomen this morning. He is not distended. Bowel sounds are not classic for bowel obstruction. His NG tube output has decreased since admission. He has a known history of bowel dysfunction, prim arily large bowel. At this point, as he is not toxic, I would recommend further evaluation of the b owel. I will order a small bowel follow-through to evaluate the proximal small bowel as this was an area of concern for obstruction. If patient has a continued high-grade obstruction, then I will discuss surgery with the mother. Until then, I would continue conservative management with NG tube decompression. I would also begin a bowel regimen. We will start with a soapsuds enema and then continue tomorrow with daily Dulcolax suppositories. When we last saw him, he was advised to have a bowel regimen, but I doubt that was continued. We will follow along. Please call with any questions. Time=15min Subjective Date of service: 02/18/20 Patient Reports: Positive: no new complaints Objective Vital Signs - 12hr 02/18/20 02/18/20 02/18/20 04:52 07:14 08:39 Temperature 98.0 F 98.3 F Pulse Rate 96 H 111 H Respiratory 18 16 20 Rate Blood Pressure 138/83 126/79 O2 Sat by Pulse 95 98 Oximetry - General physical appearance no distress, no pain, obese, other (resting comfortably) - Respiratory normal expansion, normal respiratory effort - Abdomen soft, not tender, bowel sounds hypoactive (but normal sounds. No high pitched sounds), not guarding, not rigid, surgical scars (well healed) - Integumentary no rash, no growths, no abnormal pigmentation - Labs 02/17/20 05:45 02/18/20 04:55 Diabetes panel 02/18/20 Range/Units 04:55 Sodium 144 (137-145) mmol/L Potassium 5.9 H D (3.6-5.0) mmol/L Chloride 103.0 (98-107) mmol/L Carbon Dioxide 29 (22-30) mmol/L BUN 12 (9-20) mg/dL Creatinine 1.0 (0.8-1.5) mg/dL Glucose 93 (75-100) mg/dL Calcium 10.2 (8.4-10.2) mg/dL Calcium panel 02/18/20 Range/Units 04:55 Calcium 10.2 (8.4-10.2) mg/dL Pituitary panel 02/18/20 Range/Units 04:55 Sodium 144 (137-145) mmol/L Potassium 5.9 H D (3.6-5.0) mmol/L Chloride 103.0 (98-107) mmol/L Carbon Dioxide 29 (22-30) mmol/L BUN 12 (9-20) mg/dL Creatinine 1.0 (0.8-1.5) mg/dL Glucose 93 (75-100) mg/dL Calcium 10.2 (8.4-10.2) mg/dL Adrenal panel 02/18/20 Range/Units 04:55 Sodium 144 (137-145) mmol/L Potassium 5.9 H D (3.6-5.0) mmol/L Chloride 103.0 (98-107) mmol/L Carbon Dioxide 29 (22-30) mmol/L BUN 12 (9-20) mg/dL Creatinine 1.0 (0.8-1.5) mg/dL Glucose 93 (75-100) mg/dL Calcium 10.2 (8.4-10.2) mg/dL
--- NOTE | 2020-02-18 12:56 | Event Note ---
Date: 02/18/20 Spoke with radiology. They are unable to do SBFt today due to patient being over-sedated. They asked that they sedation be held in the AM. I have order the Klonopin to stop at 4am tomorrow. I will re-order it after the study tomorrow. Study planned for tomorrow morning. Please call with questions.
[2020-02-18] MEDS ORDERED: DEXTROSE 50% IN WATER (25GM) 50 ML SYRINGE IV ONE (16:02)
--- NOTE | 2020-02-18 18:30 | Progress Note ---
Assessment and Plan Assessment and plan: --Hyperkalemia; Calcium chloride 1 g IV Monitor electrolytes --Small bowel obstruction; N.p.o. status, NG tube intermittent suction as needed Surgery following ice chips, Supportive care, --History of chronic constipation; stool softeners --Mild hypoglycemia; secondary to n.p.o. status IV D50, change IV fluids to D5 normal saline Closely monitor blood sugars --History of schizophrenia; Patient is on mild multiple psych medications However lethargic and sleepy, we will hold Klonopin --Developmental delay/mild mental retardation --GERD; IV Protonix, --DVT prophylaxis; Heparin Dian monitor the patient and adjust the management as needed Plan of care reviewed with the patient's nurse Disposition; follow clinically, follow surgery recommendations Discharge when medically stable History Interval history: Patient seen and examined Patient's chart and medications reviewed Patient was severely agitated , psych medications resumed Patient is lethargic this morning due to psych medications Responding to deep stimuli Mild hypoglycemia Vital signs reviewed Hospitalist Physical - Constitutional Vitals: Temp Pulse Resp BP Pulse Ox 98.6 F 83 24 124/80 99 02/18/20 15:19 02/18/20 15:19 02/18/20 15:19 02/18/20 15:19 02/18/20 15:19 General appearance: Present: no acute distress, well-nourished - EENT Eyes: Present: PERRL, EOM intact - Neck Neck: Present: supple, normal ROM - Respiratory Respiratory effort: normal Respiratory: bilateral: diminished, negative: rales, rhonchi, wheezing - Cardiovascular Rhythm: regular Heart Sounds: Present: S1 & S2 - Extremities Extremities: no ischemia, No edema - Abdominal General gastrointestinal: soft, non-tender, non-distended, normal bowel sounds - Integumentary Integumentary: Present: clear, warm - Psychiatric Psychiatric: appropriate mood/affect, other (Mild mental retardation) - Neurologic Neurologic: moves all extremities Results - Labs CBC & Chem 7: 02/17/20 05:45 02/18/20 04:55 Labs: Laboratory Last Values WBC 6.0 K/mm3 (4.5-11.0) 02/17/20 05:45 RBC 3.78 M/mm3 (3.65-5.03) 02/17/20 05:45 Hgb 11.5 gm/dl (11.8-15.2) L 02/17/20 05:45 Hct 34.2 % (35.5-45.6) L 02/17/20 05:45 MCV 91 fl (84-94) 02/17/20 05:45 MCH 31 pg (28-32) 02/17/20 05:45 MCHC 34 % (32-34) 02/17/20 05:45 RDW 15.0 % (13.2-15.2) 02/17/20 05:45 Plt Count 157 K/mm3 (140-440) 02/17/20 05:45 Lymph % (Auto) 10.0 % (13.4-35.0) L 02/16/20 10:28 [place] % (Auto) Dip Filler 02/17/20 05:45 Eos % (Auto) 0.1 % (0.0-4.3) 02/16/20 10:28 Baso % (Auto) 0.3 % (0.0-1.8) 02/16/20 10:28 Lymph # 1.1 K/mm3 (1.2-5.4) L 02/16/20 10:28 [place] # 0.7 K/mm3 (0.0-0.8) 02/16/20 10:28 Eos # 0.0 K/mm3 (0.0-0.4) 02/16/20 10:28 Baso # 0.0 K/mm3 (0.0-0.1) 02/16/20 10:28 Add Manual Diff Complete 02/17/20 05:45 Total Counted 100 02/17/20 05:45 Seg Neutrophils % 83.3 % (40.0-70.0) H 02/16/20 10:28 Seg Neuts % (Manual) 61.0 % (40.0-70.0) 02/17/20 05:45 Band Neutrophils % 4.0 % 02/17/20 05:45 Lymphocytes % (Manual) 22.0 % (13.4-35.0) 02/17/20 05:45 Reactive Lymphs % (Man) 0 % 02/17/20 05:45 Monocytes % (Manual) 12.0 % (0.0-7.3) H 02/17/20 05:45 Eosinophils % (Manual) 0 % (0.0-4.3) 02/17/20 05:45 Basophils % (Manual) 0 % (0.0-1.8) 02/17/20 05:45 Metamyelocytes % 1.0 % 02/17/20 05:45 Myelocytes % 0 % 02/17/20 05:45 Promyelocytes % 0 % 02/17/20 05:45 Blast Cells % 0 % 02/17/20 05:45 Nucleated RBC % Not Reportable 02/17/20 05:45 Seg Neutrophils # 9.1 K/mm3 (1.8-7.7) H 02/16/20 10:28 Seg Neutrophils # Man 3.7 K/mm3 (1.8-7.7) 02/17/20 05:45 Band Neutrophils # 0.2 K/mm3 02/17/20 05:45 Lymphocytes # (Manual) 1.3 K/mm3 (1.2-5.4) 02/17/20 05:45 Abs React Lymphs (Man) 0.0 K/mm3 02/17/20 05:45 Monocytes # (Manual) 0.7 K/mm3 (0.0-0.8) 02/17/20 05:45 Eosinophils # (Manual) 0.0 K/mm3 (0.0-0.4) 02/17/20 05:45 Basophils # (Manual) 0.0 K/mm3 (0.0-0.1) 02/17/20 05:45 Metamyelocytes # 0.1 K/mm3 02/17/20 05:45 Myelocytes # 0.0 K/mm3 02/17/20 05:45 Promyelocytes # 0.0 K/mm3 02/17/20 05:45 Blast Cells # 0.0 K/mm3 02/17/20 05:45 WBC Morphology Not Reportable 02/17/20 05:45 Hypersegmented Neuts Not Reportable 02/17/20 05:45 Hyposegmented Neuts Not Reportable 02/17/20 05:45 Hypogranular Neuts Not Reportable 02/17/20 05:45 Smudge Cells Not Reportable 02/17/20 05:45 Toxic Granulation Not Reportable 02/17/20 05:45 Toxic Vacuolation Not Reportable 02/17/20 05:45 Dohle Bodies Not Reportable 02/17/20 05:45 Pelger-Huet Anomaly Not Reportable 02/17/20 05:45 Alea Rods Not Reportable 02/17/20 05:45 Platelet Estimate Consistent w auto 02/17/20 05:45 Clumped Platelets Not Reportable 02/17/20 05:45 Plt Clumps, EDTA Not Reportable 02/17/20 05:45 Large Platelets Not Reportable 02/17/20 05:45 Giant Platelets Not Reportable 02/17/20 05:45 Platelet Satelliting Not Reportable 02/17/20 05:45 Plt Morphology Comment Not Reportable 02/17/20 05:45 RBC Morphology Normal 02/17/20 05:45 Dimorphic RBCs Not Reportable 02/17/20 05:45 Polychromasia Not Reportable 02/17/20 05:45 Hypochromasia Not Reportable 02/17/20 05:45 Poikilocytosis Not Reportable 02/17/20 05:45 Anisocytosis Not Reportable 02/17/20 05:45 Microcytosis Not Reportable 02/17/20 05:45 Macrocytosis Not Reportable 02/17/20 05:45 Spherocytes Not Reportable 02/17/20 05:45 Pappenheimer Bodies Not Reportable 02/17/20 05:45 Sickle Cells Not Reportable 02/17/20 05:45 Target Cells Not Reportable 02/17/20 05:45 Tear Drop Cells Not Reportable 02/17/20 05:45 Ovalocytes Not Reportable 02/17/20 05:45 Helmet Cells Not Reportable 02/17/20 05:45 Woodard-Lisco Bodies Not Reportable 02/17/20 05:45 [place] Rings Not Reportable 02/17/20 05:45 Kaylyn Cells Not Reportable 02/17/20 05:45 Bite Cells Not Reportable 02/17/20 05:45 Crenated Cell Not Reportable 02/17/20 05:45 Elliptocytes Not Reportable 02/17/20 05:45 Acanthocytes (Spur) Not Reportable 02/17/20 05:45 Rouleaux Not Reportable 02/17/20 05:45 Hemoglobin C Crystals Not Reportable 02/17/20 05:45 Schistocytes Not Reportable 02/17/20 05:45 Malaria parasites Not Reportable 02/17/20 05:45 Emanuel Bodies Not Reportable 02/17/20 05:45 Hem Pathologist Commnt No 02/17/20 05:45 Sodium 144 mmol/L (137-145) 02/18/20 04:55 Potassium 5.9 mmol/L (3.6-5.0) H D 02/18/20 04:55 Chloride 103.0 mmol/L (98-107) 02/18/20 04:55 Carbon Dioxide 29 mmol/L (22-30) 02/18/20 04:55 Anion Gap 18 mmol/L 02/18/20 04:55 BUN 12 mg/dL (9-20) 02/18/20 04:55 Creatinine 1.0 mg/dL (0.8-1.5) 02/18/20 04:55 Estimated GFR > 60 ml/min 02/18/20 04:55 BUN/Creatinine Ratio 12 % 02/18/20 04:55 Glucose 93 mg/dL (75-100) 02/18/20 04:55 Calcium 10.2 mg/dL (8.4-10.2) 02/18/20 04:55 Total Bilirubin 0.40 mg/dL (0.1-1.2) 02/17/20 05:45 AST 10 units/L (5-40) 02/17/20 05:45 ALT 6 units/L (7-56) L 02/17/20 05:45 Alkaline Phosphatase 52 units/L (35-129) 02/17/20 05:45 Total Protein 7.0 g/dL (6.3-8.2) 02/17/20 05:45 Albumin 3.7 g/dL (3.9-5) L 02/17/20 05:45 Albumin/Globulin Ratio 1.1 % 02/17/20 05:45 Lipase 9 units/L (13-60) L 02/16/20 10:28 Urine Color Yellow (Yellow) 02/16/20 Unknown Urine Turbidity Clear (Clear) 02/16/20 Unknown Urine pH 7.0 (5.0-7.0) 02/16/20 Unknown Ur Specific [place] 1.023 (1.003-1.030) 02/16/20 Unknown Urine Protein <15 mg/dl mg/dL (Negative) 02/16/20 Unknown Urine Glucose (UA) Neg mg/dL (Negative) 02/16/20 Unknown Urine Ketones Neg mg/dL (Negative) 02/16/20 Unknown Urine Blood Neg (Negative) 02/16/20 Unknown Urine Nitrite Neg (Negative) 02/16/20 Unknown Urine Bilirubin Neg (Negative) 02/16/20 Unknown Urine Urobilinogen 4.0 mg/dL (<2.0) 02/16/20 Unknown Ur Leukocyte Esterase Tr (Negative) 02/16/20 Unknown Urine WBC (Auto) 7.0 /HPF (0.0-6.0) H 02/16/20 Unknown Urine RBC (Auto) 1.0 /HPF (0.0-6.0) 02/16/20 Unknown U Epithel Cells (Auto) < 1.0 /HPF (0-13.0) 02/16/20 Unknown Hyaline Casts 2 /LPF 02/16/20 Unknown Urine Mucus Few /HPF 02/16/20 Unknown Nasal Screen MRSA (PCR) Positive (Negative) 02/17/20 10:55 Mcpherson/IV: Voiding Method Toilet IV Catheter Type [Right INT / Saline Lock Antecubital] Active Medications - Current Medications Current Medications: Generic Name Dose Route Start Last Admin Trade Name Freq PRN Reason Stop Dose Admin Acetaminophen 650 mg 02/17/20 02:52 Tylenol PO Q4H PRN Pain MILD(1-3)/Fever >100.5/BARRY Benztropine Mesylate 0.5 mg 02/17/20 22:00 02/18/20 10:02 Cogentin PO 0.5 mg BID STEPHEN Administration Bisacodyl 10 mg 02/19/20 10:00 Dulcolax MS QDAY STEPHEN Divalproex Sodium 500 mg 02/17/20 22:00 02/18/20 10:02 Depakote Er PO 500 mg BID STEPHEN Administration Famotidine 20 mg 02/17/20 03:00 02/18/20 10:02 Pepcid IV 20 mg BID STEPHEN Administration Heparin Sodium (Porcine) 5,000 unit 02/17/20 03:00 02/18/20 12:19 Heparin SUB-Q Not Given Q12HR STEPHEN Hydromorphone HCl 0.5 mg 02/16/20 21:50 Dilaudid IV Q3H PRN Pain , Severe (7-10) Dextrose/Sodium Chloride 1,000 mls @ 100 mls/hr 02/18/20 19:00 D5ns IV DIRECT STEPHEN Mupirocin 1 applic 02/18/20 22:00 Bactroban 2% NS BID STEPHEN Ondansetron HCl 4 mg 02/17/20 02:52 Zofran IV Q8H PRN Nausea And Vomiting Sodium Chloride 10 ml 02/17/20 10:00 02/18/20 10:03 Sodium Chloride Flush Syringe 10 Ml IV 10 ml BID STEPHEN Administration Sodium Chloride 10 ml 02/17/20 02:52 Sodium Chloride Flush Syringe 10 Ml IV PRN PRN LINE FLUSH Trazodone HCl 100 mg 02/17/20 22:00 02/17/20 22:45 Desyrel PO 100 mg HS STEPHEN Administration
[2020-02-18] MEDS ORDERED: DEXTROSE 50% IN WATER (25GM) 50 ML SYRINGE IV PRN (18:35)
[2020-02-18] MEDS ORDERED: D5W/0.45% NACL 1,000 ML IV SCH (19:00)
[2020-02-18] MEDS ORDERED: D5W/0.9% NACL 1,000 ML IV SCH (19:00)
[2020-02-18] MEDS: D5W/0.9% NACL 1,000 ML IV SCH (19:28)
[2020-02-18] MEDS: traZODone 100 MG TAB PO SCH (21:28)
[2020-02-18] MEDS: MUPIROCIN 2% OINT 22 GM NS SCH (22:08)
[2020-02-19 04:42] LABS: BUN/Creatinine Ratio 11; Blood Urea Nitrogen 9 mg/dL (9-20); Calcium 9.4 mg/dL (8.4-10.2); Hemolysis Index 44
[2020-02-19] MEDS: D5W/0.9% NACL 1,000 ML IV SCH (04:45)
[2020-02-19] MEDS: DIVALPROEX ER 500 MG TAB PO SCH ×2 (13:31→22:02)
[2020-02-19] MEDS: FAMOTIDINE 20 MG/2 ML INJ IV SCH ×2 (13:31→22:24)
[2020-02-19] MEDS: HEPARIN 5,000 UNIT/1 ML VIAL SUB-Q SCH ×2 (13:32→22:24)
[2020-02-19] MEDS: BENZTROPINE 0.5 MG TAB PO SCH ×2 (13:36→22:03)
--- NOTE | 2020-02-19 13:58 | Fluoroscopy Report ---
SMALL BOWEL FOLLOW-THROUGH HISTORY: evaluate proximal small bowel obstruction. TECHNIQUE: Single contrast Gastrografin technique utilized to evaluate the small bowel. FINDINGS: Small bowel transit time was 120 minutes which is slightly delayed. A few dilated loops o f proximal small bowel/jejunum are identified in the upper abdomen measuring up to 6 cm in diameter. Mid and distal small bowel loops are decompressed and normal caliber.. There is normal filling of th e colon and rectum. Contrast agent is seen in the rectum on the three-hour film. IMPRESSION: Moderate grade partial small bowel obstruction which appears to be in the jejunum. FLUOROSCOPIC TIME: No fluoroscopy utilized. Signer Name: Jacob Corrales Jr, MD Signed: 02/19/2020 1:53 PM Workstation Name: [id number]
--- NOTE | 2020-02-19 15:03 | Progress Note ---
Assessment and Plan /Small bowel obstruction; N.p.o. status, NG tube intermittent suction as needed Surgery following Ordered for small bowel follow-through still showing partial obstruction Plan for repeat abdominal x-ray tomorrow morning NPO now, Supportive care, /Hyperkalemia; s/p Calcium chloride 1 g IV Monitor electrolytes /History of chronic constipation; stool softeners as needed when clinically improves /Mild hypoglycemia; secondary to n.p.o. status Continue IV D50 as needed, on D5 normal saline Closely monitor blood sugars /-History of schizophrenia; Patient is on mild multiple psych medications we will hold Klonopin /-Developmental delay/mild mental retardation Supportive care --GERD; IV Protonix, --DVT prophylaxis; Heparin 02/18: SBFT showing partial obstruction, repeat abdominal x-ray tomorrow morning Disposition; follow clinically, follow surgery recommendations. Discharge when medically stable and cleared by surgery Brief history: 19 year old male with hx of downs syndrome, schizophrenia, bipolar and multiple abdominal surgeries (last surgery 7 months ago- colectomy for ischemic colon) was admitted through ED with nausea and vomiting. CT scan showed proximal small bowel obstruction. Patient also has history of chronic constipation. 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 Medical records and medication list reviewed. No acute event overnight noted by the RN. Patient denies any chest pain or difficulty breathing. s/p small bowel follow-through today, Discussed plan of care at bedside with patient. Objective - Constitutional Vitals: Vital Signs - 12hr 02/19/20 02/19/20 02/19/20 04:05 09:23 10:01 Temperature 98.9 F Pulse Rate 60 50 L Respiratory 18 Rate Blood Pressure 114/81 O2 Sat by Pulse 84 98 Oximetry - Labs CBC & Chem 7: 02/17/20 05:45 02/19/20 03:47 Labs: Abnormal lab results 02/18/20 Range/Units 16:11 POC Glucose 67 L (70-105)
--- NOTE | 2020-02-19 16:41 | Progress Note ---
Assessment and Plan - Patient Problems (1) Small bowel obstruction Current Visit: Yes Status: Acute Plan to address problem: Pt stable. Pt appears to be doing well clinically. NGT output seems to be consistent with SBO opening up. SBFT shows partial obstruction in proximal bowel. At this point, will see what the abd x-ray look like in the AM. If better and he continues to do well, will try clamping the NGT and starting clears. As patient is not a great surgical candidate, I would like to exhaust all conservative options prior to considering surgery as patient is not completely obstructed. We will follow along. Please call with any questions. Time=15min Subjective Date of service: 02/19/20 Patient Reports: Positive: no new complaints, feels better, pain is less (no lashon n at this time. ), vomiting (emesis just now after coming back radiology) Objective Vital Signs - 12hr 02/19/20 02/19/20 09:23 10:01 Pulse Rate 50 L O2 Sat by Pulse 98 Oximetry - General physical appearance no distress, no pain, obese, other (smiling. looks good. sitting up in bed. ) - ENT other (NGT - in place. fluid is yellow) - Respiratory normal expansion, normal respiratory effort - Abdomen soft, not tender, not distended, not guarding, not rigid - Integumentary no rash, no growths, no abnormal pigmentation - Labs 02/17/20 05:45 02/19/20 03:47 Diabetes panel 02/19/20 Range/Units 03:47 Sodium 140 (137-145) mmol/L Potassium 4.1 D (3.6-5.0) mmol/L Chloride 102.5 (98-107) mmol/L Carbon Dioxide 26 (22-30) mmol/L BUN 9 (9-20) mg/dL Creatinine 0.8 (0.8-1.5) mg/dL Glucose 91 (75-100) mg/dL Calcium 9.4 (8.4-10.2) mg/dL Calcium panel 02/19/20 Range/Units 03:47 Calcium 9.4 (8.4-10.2) mg/dL Pituitary panel 02/19/20 Range/Units 03:47 Sodium 140 (137-145) mmol/L Potassium 4.1 D (3.6-5.0) mmol/L Chloride 102.5 (98-107) mmol/L Carbon Dioxide 26 (22-30) mmol/L BUN 9 (9-20) mg/dL Creatinine 0.8 (0.8-1.5) mg/dL Glucose 91 (75-100) mg/dL Calcium 9.4 (8.4-10.2) mg/dL Adrenal panel 02/19/20 Range/Units 03:47 Sodium 140 (137-145) mmol/L Potassium 4.1 D (3.6-5.0) mmol/L Chloride 102.5 (98-107) mmol/L Carbon Dioxide 26 (22-30) mmol/L BUN 9 (9-20) mg/dL Creatinine 0.8 (0.8-1.5) mg/dL Glucose 91 (75-100) mg/dL Calcium 9.4 (8.4-10.2) mg/dL
[2020-02-19] MEDS: MUPIROCIN 2% OINT 22 GM NS SCH ×2 (19:55→22:24)
[2020-02-19] MEDS: traZODone 100 MG TAB PO SCH (22:03)
[2020-02-20] MEDS: D5W/0.9% NACL 1,000 ML IV SCH (04:40)
--- NOTE | 2020-02-20 08:06 | XRay Report ---
ABDOMEN 2 VIEW(S) INDICATION / CLINICAL INFORMATION: f/u on contrast location. COMPARISON: Yesterday FINDINGS: TUBES / LINES: NG tube remains in the proximal stomach. BOWEL GAS PATTERN: Contrast accumulation in the distal one half of the colon again noted. FREE AIR / EXTRALUMINAL GAS: None seen. ADDITIONAL FINDINGS: No significant additional findings. IMPRESSION: 1. Contrast accumulation in the distal one half of the colon again noted. Signer Name: Matt Helm MD Signed: 02/20/2020 8:02 AM Workstation Name: [id number]
--- NOTE | 2020-02-20 08:30 | Progress Note ---
Assessment and Plan - Patient Problems (1) Small bowel obstruction Current Visit: Yes Status: Acute Plan to address problem: Pt stable. Pt appears to be doing well clinically. NGT output seems to be consistent with SBO opening up. SBFT shows partial obstruction in proximal bowel. Today's x-ray appears fairly normal. Contrast has made it all the way to the left side of the colon. I do not see the dilated small bowel as we have in previous films. We will do a trial of NG tube clamping with clear liquid diet. If he tolerates this, then I will order the NG tube to be removed later. Most likely, he will eventually be discharged on a liquid diet if he has no further issues. As patient is not a great surgical candidate, I would like to exhaust all conservative options prior to considering surgery as patient is not completely obstructed. We will follow along. Please call with any questions. 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
[2020-02-20] MEDS: FAMOTIDINE 20 MG/2 ML INJ IV SCH ×2 (11:12→21:30)
[2020-02-20] MEDS: DIVALPROEX ER 500 MG TAB PO SCH ×2 (11:12→21:30)
[2020-02-20] MEDS: HEPARIN 5,000 UNIT/1 ML VIAL SUB-Q SCH ×2 (11:12→21:31)
[2020-02-20] MEDS: BENZTROPINE 0.5 MG TAB PO SCH ×2 (11:12→21:30)
--- NOTE | 2020-02-20 14:16 | Progress Note ---
Assessment and Plan /Small bowel obstruction; N.p.o. status, NG tube intermittent suction as needed Surgery following s/p small bowel follow-through still showing partial obstruction repeat abdominal x-ray today shows normal findings Plan to clamp NG, start on clear liquid diet /Hyperkalemia; s/p Calcium chloride 1 g IV Monitor electrolytes /History of chronic constipation; stool softeners as needed when clinically improves /Mild hypoglycemia; secondary to n.p.o. status Continue IV D50 as needed, on D5 normal saline Closely monitor blood sugars /-History of schizophrenia; Patient is on mild multiple psych medications we will hold Klonopin /-Developmental delay/mild mental retardation Supportive care --GERD; IV Protonix, --DVT prophylaxis; Heparin 02/18: SBFT showing partial obstruction, repeat abdominal x-ray tomorrow morning 02/19; repeat abdominal x-ray today shows normal findings, Plan to clamp NG, start on clear liquid diet Disposition; follow clinically, follow surgery recommendations. Discharge when medically stable and cleared by surgery Brief history: 19 year old male with hx of downs syndrome, schizophrenia, bipolar and multiple abdominal surgeries (last surgery 7 months ago- colectomy for ischemic colon) was admitted through ED with nausea and vomiting. CT scan showed proximal small bowel obstruction. Patient also has history of chronic constipation. Physical exam: General appearance: Present: no acute distress, well-nourished - EENT Eyes: Present: PERRL, EOM intact - Neck Neck: Present: supple, normal ROM - Respiratory Respiratory effort: normal Respiratory: bilateral: diminished, negative: rales, rhonchi, wheezing - Cardiovascular Rhythm: regular Heart Sounds: Present: S1 & S2 - Extremities Extremities: no ischemia, No edema - Abdominal General gastrointestinal: soft, non-tender, non-distended, + bowel sounds, multiple surgical old scar and incision crnae - Integumentary Integumentary: Present: clear, warm - Psychiatric Psychiatric: appropriate mood/affect, other (Mild mental retardation) - Neurologic Neurologic: moves all extremities Subjective Date of service: 02/20/20 Interval history: Patient seen and examined. Medical records and medication list reviewed. No acute event overnight noted by the RN. Patient denies any chest pain or difficulty breathing. Abdominal x-ray today showed normal results Discussed plan of care at bedside with patient. Objective - Constitutional Vitals: Vital Signs - 12hr 0502/20/20 02/20/20 05:06 06:22 08:29 Temperature 98.0 F Pulse Rate 58 L 61 58 L Respiratory 18 Rate Blood Pressure 121/72 O2 Sat by Pulse 100 100 Oximetry 02/20/20 02/20/20 08:34 08:42 Temperature 97.4 F L Pulse Rate Respiratory Rate Blood Pressure 117/72 O2 Sat by Pulse Oximetry - Labs CBC & Chem 7: 02/17/20 05:45 02/19/20 03:47
[2020-02-20] MEDS: traZODone 100 MG TAB PO SCH (21:30)
[2020-02-20] MEDS: MUPIROCIN 2% OINT 22 GM NS SCH (21:43)
[2020-02-20] MEDS: ONDANSETRON 4 MG/2 ML INJ IV PRN (21:49)
--- NOTE | 2020-02-21 09:24 | Progress Note ---
Assessment and Plan - Patient Problems (1) Small bowel obstruction Current Visit: Yes Status: Acute Plan to address problem: Pt stable. Patient did have 2 episodes of emesis. However, this may have been associated with intake of a large volume of liquids in a short period of time. SBFT shows partial obstruction in proximal bowel. We will do a trial again of NG tube clamping with clear liquid diet. I have instructed him to take small amounts of liquid at a time. I have also asked the nursing staff to reinforce this idea with him. As patient is not a great surgical candidate, I would like to exhaust all conservative options prior to considering surgery as patient is not completely obstructed. We will follow along. Please call with any questions. Time=10min Subjective Date of service: 02/21/20 Patient Reports: Positive: no new complaints, feels better, flatus, bowel movement, vomiting (times 2), other (no abdominal pain) Objective Vital Signs - 12hr 02/20/20 02/20/20 02/20/20 22:00 23:12 23:46 Temperature 97.5 F L Pulse Rate 99 H 90 Respiratory 18 Rate Blood Pressure 128/79 O2 Sat by Pulse 98 98 Oximetry 02/21/20 02/21/20 02/21/20 03:59 05:00 07:39 Temperature 97.8 F 98.4 F Pulse Rate 97 H 122 H Respiratory 19 20 Rate Blood Pressure 139/91 136/90 O2 Sat by Pulse 94 94 Oximetry 02/21/20 07:41 Temperature Pulse Rate Respiratory Rate Blood Pressure O2 Sat by Pulse 98 Oximetry - General physical appearance no distress, no pain, obese, other (sitting up in bed. looks well) - ENT other (NGT output with minimal reddish drainage. No bile in tubing or canister) - Respiratory normal expansion, normal respiratory effort - Abdomen soft, not tender, not distended - Labs 02/17/20 05:45 02/19/20 03:47
[2020-02-21] MEDS: FAMOTIDINE 20 MG/2 ML INJ IV SCH ×2 (09:58→22:32)
[2020-02-21] MEDS: ONDANSETRON 4 MG/2 ML INJ IV PRN (09:58)
[2020-02-21] MEDS: HEPARIN 5,000 UNIT/1 ML VIAL SUB-Q SCH ×2 (09:58→22:30)
[2020-02-21] MEDS: BENZTROPINE 0.5 MG TAB PO SCH ×2 (09:59→22:31)
[2020-02-21] MEDS: DIVALPROEX ER 500 MG TAB PO SCH ×2 (09:59→22:32)
[2020-02-21] MEDS: MUPIROCIN 2% OINT 22 GM NS SCH ×2 (10:00→22:53)
[2020-02-21] MEDS: D5W/0.9% NACL 1,000 ML IV SCH (10:16)
[2020-02-21] MEDS: ACETAMINOPHEN 325 MG TAB PO PRN ×2 (13:03→22:31)
--- NOTE | 2020-02-21 14:39 | Event Note ---
Date: 02/21/20 Spoke with the nurse. Patient had liquids for breakfast and then again in the afternoon. There were no issues. No incidents of N/V.
--- NOTE | 2020-02-21 16:49 | Progress Note ---
Assessment and Plan /Small bowel obstruction; N.p.o. status, NG tube intermittent suction as needed Surgery following s/p small bowel follow-through still showing partial obstruction repeat abdominal x-ray 02/19 shows normal findings clamp NG, cont on clear liquid diet /Hyperkalemia; s/p Calcium chloride 1 g IV Monitor electrolytes /History of chronic constipation; stool softeners as needed when clinically improves /Mild hypoglycemia; secondary to n.p.o. status Continue IV D50 as needed, on D5 normal saline Closely monitor blood sugars /-History of schizophrenia; Patient is on mild multiple psych medications we will hold Klonopin /-Developmental delay/mild mental retardation Supportive care --GERD; IV Protonix, --DVT prophylaxis; Heparin 02/18: SBFT showing partial obstruction, repeat abdominal x-ray tomorrow morning 02/19; repeat abdominal x-ray today shows normal findings, Plan to clamp NG, start on clear liquid diet 02/20; patient had couple episode of vomiting last night. Another trial of NG clamping and clear liquid diet today Disposition; follow clinically, follow surgery recommendations. Discharge when medically stable and cleared by surgery Brief history: 19 year old male with hx of downs syndrome, schizophrenia, bipolar and multiple abdominal surgeries (last surgery 7 months ago- colectomy for ischemic colon) was admitted through ED with nausea and vomiting. CT scan showed proximal small bowel obstruction. Patient also has history of chronic constipation. Physical exam: General appearance: Present: no acute distress, well-nourished - EENT Eyes: Present: PERRL, EOM intact - Neck Neck: Present: supple, normal ROM - Respiratory Respiratory effort: normal Respiratory: bilateral: diminished, negative: rales, rhonchi, wheezing - Cardiovascular Rhythm: regular Heart Sounds: Present: S1 & S2 - Extremities Extremities: no ischemia, No edema - Abdominal General gastrointestinal: soft, non-tender, non-distended, + bowel sounds, multiple surgical old scar and incision crane - Integumentary Integumentary: Present: clear, warm - Psychiatric Psychiatric: appropriate mood/affect, other (Mild mental retardation) - Neurologic Neurologic: moves all extremities Subjective Date of service: 02/21/20 Interval history: Patient seen and examined. Medical records and medication list reviewed. No acute event overnight noted by the RN. had two episodes of vomiting last night Discussed plan of care at bedside with patient. Objective - Constitutional Vitals: Vital Signs - 12hr 02/21/20 02/21/20 02/21/20 05:00 07:39 12:33 Temperature 98.4 F 102.4 F H Pulse Rate 97 H 122 H 136 H Respiratory 20 20 Rate Blood Pressure 136/90 150/74 O2 Sat by Pulse 94 94 93 Oximetry 02/21/20 02/21/20 14:00 15:38 Temperature 101.2 F H Pulse Rate 105 H 131 H Respiratory 20 Rate Blood Pressure 115/49 O2 Sat by Pulse 94 Oximetry - Labs CBC & Chem 7: 02/22/20 05:09 02/22/20 05:09
[2020-02-21] MEDS: traZODone 100 MG TAB PO SCH (22:32)
[2020-02-22] MEDS: MUPIROCIN 2% OINT 22 GM NS SCH ×3 (02:17→21:45)
[2020-02-22 05:38] LABS: Hematocrit 37.7 % (35.5-45.6); Hemoglobin 12.3 gm/dl (11.8-15.2); Mean Corpuscular HGB Conc 33 % (32-34); Mean Corpuscular Volume 93 fl (84-94); Platelet Count 146 K/mm3 (140-440); Red Blood Count 4.06 M/mm3 (3.65-5.03); Red Cell Distribution Width 15.2 % (13.2-15.2)
[2020-02-22 05:59] LABS: BUN/Creatinine Ratio 7; Blood Urea Nitrogen 8 mg/dL (9-20); Calcium 9.2 mg/dL (8.4-10.2); Hemolysis Index 9
[2020-02-22] MEDS: D5W/0.9% NACL 1,000 ML IV SCH (06:01)
[2020-02-22 06:55] LABS: Band Neutrophils # (Manual) 0.7 K/mm3; Eosinophils % (Manual) 0 % (0.0-4.3); Total Cells Counted 100
[2020-02-22 06:56] LABS: Anisocytosis RARE; Platelet Estimate Consistent w Auto
[2020-02-22] MEDS: ONDANSETRON 4 MG/2 ML INJ IV PRN ×3 (07:02→22:13)
--- NOTE | 2020-02-22 09:07 | Progress Note ---
Assessment and Plan - Patient Problems (1) Small bowel obstruction Current Visit: Yes Status: Acute Plan to address problem: Pt stable. Had mild nausea this AM. Does not seem to be completely opening up. SBFT shows partial obstruction in proximal bowel. Discussed case with mother. He has shown some improvement, but not complete. I feel that we have given a good try at conservative therapy, but he is not progressing. I think that we should proceed with lysis of adhesions. Discussed procedure, risks, benefits. All questions answered. Telephone consent obtained. Will proceed to OR today. We will follow along. Please call with any questions. Time=20min Subjective Date of service: 02/22/20 Patient Reports: Positive: tolerating liquids well, flatus, bowel movement, nausea, fever, other (denies pain) Objective Vital Signs - 12hr 02/21/20 02/22/20 02/22/20 23:01 01:50 03:47 Temperature 100.1 F H 98.9 F Pulse Rate 131 H 111 H 89 Respiratory 18 17 Rate Blood Pressure 117/60 Blood Pressure 118/61 [Left] O2 Sat by Pulse 92 94 Oximetry 02/22/20 02/22/20 04:18 08:43 Temperature 97.9 F Pulse Rate 135 H Respiratory 20 Rate Blood Pressure 112/53 Blood Pressure [Left] O2 Sat by Pulse Oximetry - General physical appearance no distress, no pain, obese, other (does not appear ill) - ENT other (NGT with light green drainage) - Respiratory normal expansion, normal respiratory effort, other (slight crackles at left lateral base?) - Abdomen soft, not tender, bowel sounds hypoactive (with some fluid filled sounds), not distended, not guarding, not rigid - Integumentary no rash, no growths, no abnormal pigmentation - Labs 02/22/20 05:09 02/22/20 05:09 Diabetes panel 02/22/20 Range/Units 05:09 Sodium 148 H D (137-145) mmol/L Potassium 3.7 (3.6-5.0) mmol/L Chloride 108.2 H (98-107) mmol/L Carbon Dioxide 26 (22-30) mmol/L BUN 8 L (9-20) mg/dL Creatinine 1.2 (0.8-1.5) mg/dL Glucose 101 H (75-100) mg/dL Calcium 9.2 (8.4-10.2) mg/dL Calcium panel 02/22/20 Range/Units 05:09 Calcium 9.2 (8.4-10.2) mg/dL Pituitary panel 02/22/20 Range/Units 05:09 Sodium 148 H D (137-145) mmol/L Potassium 3.7 (3.6-5.0) mmol/L Chloride 108.2 H (98-107) mmol/L Carbon Dioxide 26 (22-30) mmol/L BUN 8 L (9-20) mg/dL Creatinine 1.2 (0.8-1.5) mg/dL Glucose 101 H (75-100) mg/dL Calcium 9.2 (8.4-10.2) mg/dL Adrenal panel 02/22/20 Range/Units 05:09 Sodium 148 H D (137-145) mmol/L Potassium 3.7 (3.6-5.0) mmol/L Chloride 108.2 H (98-107) mmol/L Carbon Dioxide 26 (22-30) mmol/L BUN 8 L (9-20) mg/dL Creatinine 1.2 (0.8-1.5) mg/dL Glucose 101 H (75-100) mg/dL Calcium 9.2 (8.4-10.2) mg/dL
[2020-02-22] MEDS: FAMOTIDINE 20 MG/2 ML INJ IV SCH ×2 (09:27→21:44)
[2020-02-22] MEDS ORDERED: ceFAZolin/Water 2 GM/20 ML 2 GM/20 ML SYRINGE IV SCH (10:00)
[2020-02-22] MEDS: DIVALPROEX ER 500 MG TAB PO SCH ×2 (10:00→21:41)
[2020-02-22] MEDS: BENZTROPINE 0.5 MG TAB PO SCH ×2 (10:00→21:44)
--- NOTE | 2020-02-22 10:01 | Anesthesia Consultation ---
<REBEKA JONES - Last Filed: 02/22/20 09:54> Anesthesia Consult and Med Hx Date of service: 02/22/20 - Airway Anesthetic Teeth Evaluation: Good ROM Head & Neck: Adequate Mental/Hyoid Distance: Adequate Mallampati Class: Class II Intubation Access Assessment: Probably Good - Pre-Operative Health Status ASA Pre-Surgery Classification: ASA3, Emergency Proposed Anesthetic Plan: General - Pulmonary Hx Smoking: No Hx Asthma: No (Hx) Hx Respiratory Symptoms: Yes (h/o resp failure. Was intubated 07/23/19) COPD: No Hx Pneumonia: No - Cardiovascular System Hx Hypertension: No Hx Coronary Artery Disease: No (Non-ischemic cardiomyopathy) Hx Heart Attack/AMI: No (EF 25-30% on recent TTE) Hx Pacemaker: No Hx Internal Defibrillator: No - Central Nervous System Hx Seizures: Yes CVA: No Hx Psychiatric Problems: Yes (schizophrenia, bipolar, Down's Syndrome) - Gastrointestinal Hx Gastroesophageal Reflux Disease: Yes (small bowel obstruction) - Endocrine Hx Renal Disease: Yes (ARF requiring HD this admission now improved) Hx End Stage Renal Disease: No Hx Liver Disease: No Hx Insulin Dependent Diabetes: No Hx Non-Insulin Dependent Diabetes: No Hx Thyroid Disease: No - Hematic Hx Anemia: Yes (w/ thrombocytopenia) - Other Systems Hx Alcohol Use: No Hx Obesity: Yes (BMI 50) <MARCE SAENZ - Last Filed: 02/23/20 10:46> Anesthesia Consult and Med Hx - Airway Anesthetic Teeth Evaluation: Good ROM Head & Neck: Adequate Mental/Hyoid Distance: Adequate Mallampati Class: Class II Intubation Access Assessment: Probably Good (Previous easy intubation with glidescope on last admission) - Pulmonary Exam CTA: Yes - Cardiac Exam Cardiac Exam: RRR (low grade tachycardia) - Pre-Operative Health Status ASA Pre-Surgery Classification: ASA3, Emergency Proposed Anesthetic Plan: General - Pre-Anesthesia Comment Pre-Anesthesia Comments: PMH Down's syndome, nonischemic cardiomyopathy, psychiatric disorders, and multiple abdominal surgeries presenting with SBO scheduled for surgical intervention. Examined immediately prior to procedure. No change in health overnight. Anesthetic plan and risks, including risk of post op mechanical ventilation, discussed with Guillermina Acosta (mother) who gave consent for anesthesia.
--- NOTE | 2020-02-22 11:10 | Progress Note ---
Assessment and Plan /Small bowel obstruction; N.p.o. status, NG tube intermittent suction as needed Surgery following , s/p small bowel follow-through still showing partial obstruction repeat abdominal x-ray 02/19 shows normal findings clammed NG and had trial for clear liquid but patient did not tolerate plan for surgery today /hypernatremia - cont iv fluid /Hyperkalemia; s/p Calcium chloride 1 g IV Monitor electrolytes /History of chronic constipation; stool softeners as needed when clinically improves /Mild hypoglycemia; secondary to n.p.o. status Continue IV D50 as needed, on D5 normal saline Closely monitor blood sugars /-History of schizophrenia; Patient is on mild multiple psych medications we will hold Klonopin /-Developmental delay/mild mental retardation Supportive care --GERD; IV Protonix, --DVT prophylaxis; Heparin 02/18: SBFT showing partial obstruction, repeat abdominal x-ray tomorrow morning 02/19; repeat abdominal x-ray today shows normal findings, Plan to clamp NG, start on clear liquid diet 02/20; patient had couple episode of vomiting last night. Another trial of NG clamping and clear liquid diet today 02/21: plan for surgery today as he didnot improve with medical mx Disposition; follow clinically, follow surgery recommendations. Discharge when medically stable and cleared by surgery Brief history: 19 year old male with hx of downs syndrome, schizophrenia, bipolar and multiple abdominal surgeries (last surgery 7 months ago- colectomy for ischemic colon) was admitted through ED with nausea and vomiting. CT scan showed proximal small bowel obstruction. Patient also has history of chronic constipation. Physical exam: General appearance: Present: no acute distress, well-nourished - EENT Eyes: Present: PERRL, EOM intact - Neck Neck: Present: supple, normal ROM - Respiratory Respiratory effort: normal Respiratory: bilateral: diminished, negative: rales, rhonchi, wheezing - Cardiovascular Rhythm: regular Heart Sounds: Present: S1 & S2 - Extremities Extremities: no ischemia, No edema - Abdominal General gastrointestinal: soft, non-tender, non-distended, + bowel sounds, multiple surgical old scar and incision crane - Integumentary Integumentary: Present: clear, warm - Psychiatric Psychiatric: appropriate mood/affect, other (Mild mental retardation) - Neurologic Neurologic: moves all extremities Subjective Date of service: 02/22/20 Interval history: Patient seen and examined. Medical records and medication list reviewed. Patient continued to have nausea vomiting and abdominal distention after starting on clear liquid diet Discussed with Dr. Tilley and plan for exploratory laparotomy today Objective - Constitutional Vitals: Vital Signs - 12hr 02/22/20 02/22/20 02/22/20 01:50 03:47 04:18 Temperature 98.9 F Pulse Rate 111 H 89 135 H Respiratory 17 Rate Blood Pressure Blood Pressure 118/61 [Left] O2 Sat by Pulse 94 Oximetry 02/22/20 08:43 Temperature 97.9 F Pulse Rate Respiratory 20 Rate Blood Pressure 112/53 Blood Pressure [Left] O2 Sat by Pulse Oximetry - Labs CBC & Chem 7: 02/22/20 05:09 02/23/20 08:36 Labs: Abnormal lab results 02/22/20 02/22/20 Range/Units 05:09 05:09 Lymphocytes % (Manual) 13.0 L (13.4-35.0) % Monocytes % (Manual) 11.0 H (0.0-7.3) % Basophils % (Manual) 2.0 H (0.0-1.8) % Lymphocytes # (Manual) 0.9 L (1.2-5.4) K/mm3 Sodium 148 H D (137-145) mmol/L Chloride 108.2 H (98-107) mmol/L BUN 8 L (9-20) mg/dL Glucose 101 H (75-100) mg/dL
[2020-02-22] MEDS ORDERED: D5W/0.45% NACL 1,000 ML IV SCH (12:00)
[2020-02-22] MEDS ORDERED: SODIUM CHLORIDE 0.45% 1000 ML 1,000 ML IV SCH (15:00)
--- NOTE | 2020-02-22 17:14 | Event Note ---
Date: 02/22/20 Our case was delayed today due to a vascular surgery emergency. They are still operating at this time. In the interim, another emergency case has come up which has "bumped" us. It is unlikely that we will be able to go today. Therefore, I have moved him to tomorrow morning. Dr. Trevizo will be doing the case. I have explained the situation to the mother. She was very understanding.
[2020-02-22] MEDS: HEPARIN 5,000 UNIT/1 ML VIAL SUB-Q SCH (21:39)
[2020-02-22] MEDS: traZODone 100 MG TAB PO SCH (21:44)
[2020-02-23] MEDS: HYDROmorphone 1 MG/1 ML INJ IV PRN (03:22)
[2020-02-23] MEDS: D5W/0.45% NACL/KCL 20 MEQ 20 MEQ/1,000 ML BAG IV SCH ×2 (08:22→22:06)
[2020-02-23 09:05] LABS: BUN/Creatinine Ratio 11; Blood Urea Nitrogen 10 mg/dL (9-20); Calcium 8.8 mg/dL (8.4-10.2); Hemolysis Index 0
[2020-02-23] MEDS ORDERED: dexAMETHasone 20 MG/5 ML VIAL ONE (09:44)
[2020-02-23] MEDS ORDERED: ROCURONIUM 50 MG/5 ML INJ IV ONE (09:44)
[2020-02-23] MEDS ORDERED: HYDROmorphone 1 MG/1 ML INJ ONE (09:44)
[2020-02-23] MEDS ORDERED: ONDANSETRON 4 MG/2 ML INJ ONE (09:44)
[2020-02-23] MEDS ORDERED: propofoL 200 MG/20 ML VIAL IV ONE (09:44)
[2020-02-23] MEDS ORDERED: HYDROmorphone 1 MG/1 ML INJ IV PRN (09:47)
[2020-02-23] MEDS ORDERED: ONDANSETRON 4 MG/2 ML INJ IV PRN (09:47)
[2020-02-23] MEDS ORDERED: SUCCINYLCHOLINE CHLORIDE 200 MG/10 ML INJ MDV ONE (09:52)
[2020-02-23] MEDS ORDERED: LIDOCAINE MPF (2%) 20 MG/1 ML VIAL 5 ML ONE (10:00)
[2020-02-23] MEDS ORDERED: BUPIVACAINE/PF (0.25%) 2.5 MG/ML 30 ML VIAL INFILTRATI ONE (10:02)
[2020-02-23] MEDS ORDERED: LIDOCAINE (1%) 10 MG/1 ML VIAL 20 ML MDV ONE (10:02)
[2020-02-23] MEDS ORDERED: LACTATED RINGERS 1,000 ML ONE ×2 (10:14→11:55)
[2020-02-23] MEDS ORDERED: MIDAZOLAM 2 MG/2 ML INJ ONE (10:19)
[2020-02-23] MEDS ORDERED: KETAMINE/STERILE WATER 50 MG/ML SYRINGE ONE (10:19)
--- NOTE | 2020-02-23 10:48 | Anesthesia Day of Surgery ---
Anesthesia Day of Surgery - Day of Surgery Patient Examined: Yes Patient H&P Reviewed: Yes Patient is NPO: Yes
[2020-02-23] MEDS: HEPARIN 5,000 UNIT/1 ML VIAL SUB-Q SCH ×2 (10:58→22:06)
[2020-02-23] MEDS ORDERED: SODIUM CHLORIDE 0.9% IRR 1,000 ML BOTTLE IR ONE (11:06)
[2020-02-23] MEDS ORDERED: ceFAZolin 1 GM VIAL ONE ×2 (11:11)
[2020-02-23] MEDS: BENZTROPINE 0.5 MG TAB PO SCH ×2 (12:00→22:07)
[2020-02-23] MEDS: MUPIROCIN 2% OINT 22 GM NS SCH ×2 (12:00→22:08)
[2020-02-23] MEDS: FAMOTIDINE 20 MG/2 ML INJ IV SCH ×2 (12:00→22:06)
[2020-02-23] MEDS: DIVALPROEX ER 500 MG TAB PO SCH ×2 (12:00→22:07)
[2020-02-23] MEDS ORDERED: PHENYLEPHRINE/NS 1,000 MCG/10 ML SYRINGE (OR USE) IV ONE (12:02)
[2020-02-23] MEDS ORDERED: NEOSTIGMINE 10MG/10 ML INJ MDV ONE ×3 (12:29→13:19)
[2020-02-23] MEDS ORDERED: GLYCOPYRROLATE 0.4 MG/2 ML INJ ONE (12:30)
--- NOTE | 2020-02-23 12:46 | Post Operative Note ---
Date of procedure: 02/23/20 Pre-op diagnosis: small bowel obstruction Post-op diagnosis: same Findings: 1. Thick band adhesion from retroperitoneum overlying the small bowel in the RUQ. This was the point of obstruction. Small bowel distal to the adhesion was decompressed and proximal small bowel was distended. 2. Adhesions in the RUQ from small bowel to anterior abdominal wall 3. Chronically dilated small bowel in the mid abdomen, Left hemiabdomen and pelvis IVF: 1300cc Uo: 200cc NGT output: 200cc Procedure: Exploratory laparotomy, lysis of adhesions Anesthesia: CARLOS Surgeon: ANTIONE QUINTANILLA Hand Coremaker: KARLY LOYA Estimated blood loss: minimal Pathology: none Condition: stable Disposition: PACU
--- NOTE | 2020-02-23 14:11 | Progress Note ---
Assessment and Plan /Small bowel obstruction; N.p.o. status, NG tube intermittent suction as needed Surgery following , s/p small bowel follow-through still showing partial obstruction repeat abdominal x-ray 02/19 shows normal findings clammed NG and had trial for clear liquid but patient did not tolerate s/p surgery today /hypernatremia - cont iv fluid /Hyperkalemia; s/p Calcium chloride 1 g IV Monitor electrolytes /History of chronic constipation; stool softeners as needed when clinically improves /Mild hypoglycemia; secondary to n.p.o. status Continue IV D50 as needed, on D5 normal saline Closely monitor blood sugars /-History of schizophrenia; Patient is on mild multiple psych medications we will hold Klonopin /-Developmental delay/mild mental retardation Supportive care --GERD; IV Protonix, --DVT prophylaxis; Heparin 02/18: SBFT showing partial obstruction, repeat abdominal x-ray tomorrow morning 02/19; repeat abdominal x-ray today shows normal findings, Plan to clamp NG, start on clear liquid diet 02/20; patient had couple episode of vomiting last night. Another trial of NG clamping and clear liquid diet today 02/21: plan for surgery today as he didnot improve with medical mx 02/22: Surgery could not perform yesterday due to conflict of the schedule. Status post exploratory laparotomy today by Dr. Mclaughlin. Continue postop care Disposition; follow clinically, follow surgery recommendations. Discharge when medically stable and cleared by surgery Brief history: 19 year old male with hx of downs syndrome, schizophrenia, bipolar and multiple abdominal surgeries (last surgery 7 months ago- colectomy for ischemic colon) was admitted through ED with nausea and vomiting. CT scan showed proximal small bowel obstruction. Patient also has history of chronic constipation. Physical exam: General appearance: Present: no acute distress, well-nourished - EENT Eyes: Present: PERRL, EOM intact - Neck Neck: Present: supple, normal ROM - Respiratory Respiratory effort: normal Respiratory: bilateral: diminished, negative: rales, rhonchi, wheezing - Cardiovascular Rhythm: regular Heart Sounds: Present: S1 & S2 - Extremities Extremities: no ischemia, No edema - Abdominal General gastrointestinal: soft, non-tender, non-distended, + bowel sounds, multiple surgical old scar and incision crane - Integumentary Integumentary: Present: clear, warm - Psychiatric Psychiatric: appropriate mood/affect, other (Mild mental retardation) - Neurologic Neurologic: moves all extremities Subjective Date of service: 02/23/20 Interval history: Patient seen and examined. Medical records and medication list reviewed. Patient on NG suction and NPO s/p exploratory laparotomy today Objective - Constitutional Vitals: Vital Signs - 12hr 02/23/20 02/23/20 02/23/20 03:22 05:45 08:00 Temperature 98.3 F Pulse Rate 97 H Pulse Rate [ 78 Right Radial] Respiratory 20 18 Rate Blood Pressure 103/57 O2 Sat by Pulse 95 97 Oximetry 02/23/20 02/23/20 02/23/20 13:00 13:19 13:25 Temperature 99.4 F Pulse Rate 77 103 H 102 H Pulse Rate [ Right Radial] Respiratory 14 13 Rate Blood Pressure 128/64 133/74 O2 Sat by Pulse 100 100 Oximetry 02/23/20 02/23/20 02/23/20 13:30 13:35 13:45 Temperature Pulse Rate 101 H 101 H 101 H Pulse Rate [ Right Radial] Respiratory 14 16 16 Rate Blood Pressure 140/76 132/76 132/77 O2 Sat by Pulse 100 100 100 Oximetry 02/23/20 14:00 Temperature Pulse Rate 104 H Pulse Rate [ Right Radial] Respiratory 18 Rate Blood Pressure 125/69 O2 Sat by Pulse 100 Oximetry - Labs CBC & Chem 7: 02/22/20 05:09 02/23/20 08:36 Labs: Abnormal lab results 02/23/20 Range/Units 08:36 Glucose 108 H (75-100) mg/dL
--- NOTE | 2020-02-23 14:35 | Post Anesthesia Evaluation ---
- Post Anesthesia Evaluation Patient Participated: Yes Airway Patent: Yes Stable Respiratory Function: Yes Nausea/Vomiting: No Temp > 96.8F: Yes Pain Manageable: Yes Adequeate Hydration: Yes Anesthesia Complications: Yes (delayed emergence; see below) Other Comments: Immediately postop, patient displayed adequate respiratory effort and minimal inhaltional anesthetic however would not open eyes or respond to stimulus. Pupils were non-pinpoint and equal/round/reactive. Adequate NMB reversal. Very low suspicion for overnarcotization. Patient was taken to PACU intubated and placed on ventilator with minimal settings. Vital signs and blood glucose were normal. Eventually, patient became reliably responsive to verbal commands and he was extubated at 1356 and placed on O2 via NC. Over the next 30 mins, he became awake and alert with mentation at baseline and no gross neurological deficits. OK for transfer back to telemetry floor with continuous pulse oxymetry.
[2020-02-23] MEDS: traZODone 100 MG TAB PO SCH (22:07)
[2020-02-24 04:57] LABS: BUN/Creatinine Ratio 13; Blood Urea Nitrogen 10 mg/dL (9-20); Calcium 8.5 mg/dL (8.4-10.2); Hemolysis Index 7
[2020-02-24] MEDS: D5W/0.45% NACL/KCL 20 MEQ 20 MEQ/1,000 ML BAG IV SCH ×2 (08:04→21:57)
[2020-02-24] MEDS ORDERED: MAGNESIUM SULFATE 2 GM/50 ML BAG IV ONE (09:00)
[2020-02-24] MEDS: DIVALPROEX ER 500 MG TAB PO SCH ×2 (09:20→21:58)
[2020-02-24] MEDS: BENZTROPINE 0.5 MG TAB PO SCH ×2 (09:20→21:58)
[2020-02-24] MEDS: FAMOTIDINE 20 MG/2 ML INJ IV SCH ×2 (09:20→21:57)
[2020-02-24] MEDS: MUPIROCIN 2% OINT 22 GM NS SCH ×2 (09:21→21:59)
[2020-02-24] MEDS: HEPARIN 5,000 UNIT/1 ML VIAL SUB-Q SCH ×2 (09:22→21:58)
[2020-02-24] MEDS: HYDROmorphone 1 MG/1 ML INJ IV PRN (09:23)
[2020-02-24] MEDS ORDERED: PHENOL 1.4% 177 ML BOTTLE MM PRN (16:23)
--- NOTE | 2020-02-24 17:39 | Progress Note ---
Assessment and Plan 19-year-old male status post Exploratory laparotomy, lysis of adhesions, POD 1 (1) Small bowel obstruction Current Visit: Yes Status: Acute Plan to address problem: Patient is stable. She appears to be having bowel function. NG tube still bi lious, however drainage has decreased. Plan; 1. Continue NG tube to low intermittent suction 2. IV fluids 3. Out of bed to chair 4. N.p.o. except ice chips 5. DVT prophylaxis 6. GI prophylaxis 7. Incentive spirometry 8. Abdominal binder Will monitor the patient's clinical progress, NG tube output. The patient has a history of intestinal dysmotility, with chronically distended small bowel. I expect him to have an ileus postoperatively. Thank you, please call with questions or concerns Subjective Date of service: 02/24/20 Narrative: Patient seen and examined. He is sitting in bed comfortably. He states his abdomen feels good. No fevers, chills, chest pain, shortness of breath. He is asking for orange juice. No nausea or vomiting. The patient had a soft BM yesterday evening and states he is passing flatus. Objective Vital Signs - 12hr 02/24/20 02/24/20 02/24/20 08:02 09:23 10:00 Temperature 99.6 F Pulse Rate 114 H Pulse Rate [ 102 H Right Radial] Respiratory 18 16 15 Rate Blood Pressure 115/72 O2 Sat by Pulse 99 99 Oximetry 02/24/20 02/24/20 02/24/20 11:18 12:26 15:45 Temperature 98.9 F 98.9 F Pulse Rate 117 H 114 H 117 H Pulse Rate [ Right Radial] Respiratory 18 20 Rate Blood Pressure 115/71 120/76 O2 Sat by Pulse 99 92 Oximetry - General physical appearance Narrative Exam: Gen.: Awake, alert. No apparent distress. Sitting comfortably in bed, pleasant demeanor. ENT: NG tube in place with bilious output. CV: S1, S2 present Respiratory: No audible wheezes Abdomen: Soft, nondistended, nontender. Midline dressing is clean, dry, intact. No rebound, rigidity, guarding Extremities: No clubbing, cyanosis, edema NG tube output: 300 cc over 12 hours - Labs 02/22/20 05:09 02/24/20 03:51 Diabetes panel 02/24/20 Range/Units 03:51 Sodium 142 (137-145) mmol/L Potassium 4.2 (3.6-5.0) mmol/L Chloride 103.7 (98-107) mmol/L Carbon Dioxide 28 (22-30) mmol/L BUN 10 (9-20) mg/dL Creatinine 0.8 (0.8-1.5) mg/dL Glucose 119 H (75-100) mg/dL Calcium 8.5 (8.4-10.2) mg/dL Calcium panel 02/24/20 Range/Units 03:51 Calcium 8.5 (8.4-10.2) mg/dL Phosphorus 3.20 (2.5-4.5) mg/dL Pituitary panel 02/24/20 Range/Units 03:51 Sodium 142 (137-145) mmol/L Potassium 4.2 (3.6-5.0) mmol/L Chloride 103.7 (98-107) mmol/L Carbon Dioxide 28 (22-30) mmol/L BUN 10 (9-20) mg/dL Creatinine 0.8 (0.8-1.5) mg/dL Glucose 119 H (75-100) mg/dL Calcium 8.5 (8.4-10.2) mg/dL Adrenal panel 02/24/20 Range/Units 03:51 Sodium 142 (137-145) mmol/L Potassium 4.2 (3.6-5.0) mmol/L Chloride 103.7 (98-107) mmol/L Carbon Dioxide 28 (22-30) mmol/L BUN 10 (9-20) mg/dL Creatinine 0.8 (0.8-1.5) mg/dL Glucose 119 H (75-100) mg/dL Calcium 8.5 (8.4-10.2) mg/dL
--- NOTE | 2020-02-24 17:52 | Operative Report ---
Operative Report Operative Report: Date: 02/23/20 12:41 Date of procedure: 02/23/20 Pre-op diagnosis: small bowel obstruction Post-op diagnosis: same Findings: 1. Thick band adhesion from retroperitoneum overlying the small bowel in the RUQ. This was the point of obstruction. Small bowel distal to the adhesion was decompressed and proximal small bowel was distended. 2. Adhesions in the RUQ from small bowel to anterior abdominal wall 3. Chronically dilated small bowel in the mid abdomen, Left hemiabdomen and pelvis IVF: 1300cc Uo: 200cc NGT output: 200cc Procedure: Exploratory laparotomy, lysis of adhesions Anesthesia: CARLOS Surgeon: ANTIONE QUINTANILLA Data Base Design Analyst: KARLY LOYA Estimated blood loss: minimal Pathology: none Condition: stable Disposition: PACU HPI and indication: Patient is a 19-year-old male with a past surgical history of exploratory laparotomy, partial colectomy, colostomy in 2015. The colostomy subsequently reversed in 2017. 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 At that time his abdomen was temporarily closed with an AB Thera VAC and he was taken back to the operating room multiple times for washout and anastomosis and finally closure of the abdomen. The patient presented this admission with nausea and vomiting and was found to have a partial small bowel obstruction which did not resolve with conservative management. Small bowel follow-through showed a distinct location in the right upper quadrant as a source of the bowel obstruction. Therefore it was recommended that the patient undergo exploratory laparotomy. All risks, benefits, alternatives to surgery were discussed with the patient's mother/POA and questions answered. Consent was obtained. Procedure in detail: The patient was identified in the preoperative area, taken back to the operating room and placed on operating room table in supine position. After anesthesia was induced a Mcpherson catheter was sterilely placed by the circulating nurse. The abdomen was then prepped and draped in usual sterile fashion a timeout performed. A midline incision was made using a 10 blade and dissection carried down through the skin and subcutaneous tissue using Bovie electrocautery. Chronic scar tissue was encountered throughout the entire dissection until the fascia was encountered. The fascia was scored using electrocautery and then tented up between 2 [place] clamps. The posterior fascia was then scored and also tented between 2 [place] clamps. The peritoneum was grasped between 2 hemostats and incised with Metzenbaum scissors and the abdomen entered. Any adhesions that were palpable were swept down with a gloved finger. The remainder of the fascia was then opened over 2 gloved fingers using electrocautery. Immediate visualization of distended small bowel which entered the field. There were dense adhesions interloop small bowel adhesions overlying most of the bowel in the left abdomen. We then turned our attention to the right upper quadrant where the source of small bowel obstruction was identified on imaging. There were decompressed loops of small bowel in the right upper quadrant which were followed proximally. A thick band adhesion was seen overlying the small bowel at the point where the small bowel went from being severely distended to decompressed. This adhesion was cut using Bovie electrocautery. This appeared to be the transition point and as soon as this adhesion was released, the distal decompressed small bowel began to fill with fluid. An additional adhesion from the loop of small bowel to the anterior abdominal wall was carefully taken down. There was a small serosal tear present which was repaired with 3-0 silk seromuscular sutures. An attempt was made to run all of the small intestine however with all of the previous bowel surgeries that the patient had had he did have dense adhesions from small bowel to small bowel as well as to the retroperitoneum. We felt that we did identify the area of the ligament of Treitz and ran the small bowel to the area of the ileocolonic anastomosis in the left lower quadrant. Most of the small bowel in the left abdomen was chronically distended. There were no other points of obstruction seen. No injury to the bowel was seen. The bowel was placed back into normal anatomic position. The stomach was palpated and the NG tube positioning confirmed. We then turned our attention to closing the abdomen. Hemostasis was ensured. The fascia was closed with running looped PDS x2. The subcutaneous tissue was irrigated and hemostasis carefully ensured. Skin was approximated with chaparro. The incision was covered with an island dressing. The patient tolerated the procedure very well. At the end of the case all sponge, instrument, sharp counts were correct x2. Patient was awoken from anesthesia and taken to PACU in stable condition. He was later extubated in the PACU and placed on 2 L nasal cannula.
[2020-02-24] MEDS: traZODone 100 MG TAB PO SCH (21:58)
[2020-02-25] MEDS: HYDROmorphone 1 MG/1 ML INJ IV PRN (04:56)
[2020-02-25] MEDS: D5W/0.45% NACL/KCL 20 MEQ 20 MEQ/1,000 ML BAG IV SCH ×2 (05:35→14:04)
[2020-02-25 05:55] LABS: Hematocrit 32.9 % (35.5-45.6); Hemoglobin 10.8 gm/dl (11.8-15.2); Mean Corpuscular HGB Conc 33 % (32-34); Mean Corpuscular Volume 92 fl (84-94); Platelet Count 141 K/mm3 (140-440); Red Blood Count 3.59 M/mm3 (3.65-5.03); Red Cell Distribution Width 15.3 % (13.2-15.2)
[2020-02-25 06:11] LABS: BUN/Creatinine Ratio 12; Blood Urea Nitrogen 12 mg/dL (9-20); Calcium 8.3 mg/dL (8.4-10.2); Hemolysis Index 3
[2020-02-25] MEDS ORDERED: METOPROLOL TARTRATE 5 MG/5 ML INJ IV ONE (06:27)
[2020-02-25] MEDS: ACETAMINOPHEN 325 MG TAB PO PRN (09:16)
[2020-02-25] MEDS: DIVALPROEX ER 500 MG TAB PO SCH ×2 (09:16→21:58)
[2020-02-25] MEDS: BENZTROPINE 0.5 MG TAB PO SCH ×2 (09:16→21:58)
[2020-02-25] MEDS: MUPIROCIN 2% OINT 22 GM NS SCH ×2 (09:17→21:23)
[2020-02-25] MEDS: HEPARIN 5,000 UNIT/1 ML VIAL SUB-Q SCH ×2 (09:17→22:30)
[2020-02-25] MEDS: FAMOTIDINE 20 MG/2 ML INJ IV SCH ×2 (09:17→21:22)
--- NOTE | 2020-02-25 10:36 | Progress Note ---
Assessment and Plan /Small bowel obstruction; N.p.o. status, NG tube intermittent suction as needed Surgery following , s/p small bowel follow-through still showing partial obstruction repeat abdominal x-ray 02/19 shows normal findings clammed NG and had trial for clear liquid but patient did not tolerate status post Exploratory laparotomy, lysis of adhesions, POD 1 cont post-op care /hypernatremia - cont iv fluid /Hyperkalemia; s/p Calcium chloride 1 g IV Monitor electrolytes /History of chronic constipation; stool softeners as needed when clinically improves /Mild hypoglycemia; secondary to n.p.o. status Continue IV D50 as needed, on D5 normal saline Closely monitor blood sugars /-History of schizophrenia; Patient is on mild multiple psych medications we will hold Klonopin /-Developmental delay/mild mental retardation Supportive care --GERD; IV Protonix, --DVT prophylaxis; Heparin 02/18: SBFT showing partial obstruction, repeat abdominal x-ray tomorrow morning 02/19; repeat abdominal x-ray today shows normal findings, Plan to clamp NG, start on clear liquid diet 02/20; patient had couple episode of vomiting last night. Another trial of NG clamping and clear liquid diet today 02/21: plan for surgery today as he didnot improve with medical mx 02/22: Surgery could not perform yesterday due to conflict of the schedule. Status post exploratory laparotomy today by Dr. Mclaughlin. Continue postop care 02/23; on NG suction, status post Exploratory laparotomy, lysis of adhesions, POD 1. Monitor electrolytes Disposition; follow clinically, follow surgery recommendations. Discharge when medically stable and cleared by surgery Brief history: 19 year old male with hx of downs syndrome, schizophrenia, bipolar and multiple abdominal surgeries (last surgery 7 months ago- colectomy for ischemic colon) was admitted through ED with nausea and vomiting. CT scan showed proximal small bowel obstruction. Patient also has history of chronic constipation. Physical exam: General appearance: Present: no acute distress, well-nourished - EENT Eyes: Present: PERRL, EOM intact - Neck Neck: Present: supple, normal ROM - Respiratory Respiratory effort: normal Respiratory: bilateral: diminished, negative: rales, rhonchi, wheezing - Cardiovascular Rhythm: regular Heart Sounds: Present: S1 & S2 - Extremities Extremities: no ischemia, No edema - Abdominal General gastrointestinal: soft, non-tender, non-distended, + bowel sounds, multiple surgical old scar and incision crane - Integumentary Integumentary: Present: clear, warm - Psychiatric Psychiatric: appropriate mood/affect, other (Mild mental retardation) - Neurologic Neurologic: moves all extremities Subjective Date of service: 02/24/20 Interval history: Patient seen and examined. Medical records and medication list reviewed. Patient on NG suction and NPO s/p exploratory laparotomy yesterday Objective - Constitutional Vitals: Vital Signs - 12hr 02/24/20 02/25/20 02/25/20 23:05 04:00 04:34 Temperature 98.0 F Pulse Rate 145 H 145 H 153 H Respiratory 18 Rate Blood Pressure 114/69 O2 Sat by Pulse 96 95 Oximetry 02/25/20 02/25/20 05:35 06:37 Temperature 99.1 F Pulse Rate 155 H Respiratory Rate Blood Pressure 140/51 O2 Sat by Pulse Oximetry - Labs CBC & Chem 7: 02/25/20 05:18 02/25/20 05:18 Labs: Abnormal lab results 02/25/20 02/25/20 Range/Units 05:18 05:18 RBC 3.59 L (3.65-5.03) M/mm3 Hgb 10.8 L (11.8-15.2) gm/dl Hct 32.9 L (35.5-45.6) % RDW 15.3 H (13.2-15.2) % Glucose 122 H (75-100) mg/dL Calcium 8.3 L (8.4-10.2) mg/dL Phosphorus 2.40 L D (2.5-4.5) mg/dL
--- NOTE | 2020-02-25 10:39 | Progress Note ---
Assessment and Plan /Small bowel obstruction; N.p.o. status, NG tube intermittent suction as needed Surgery following , s/p small bowel follow-through still showing partial obstruction repeat abdominal x-ray 02/19 shows normal findings clammed NG and had trial for clear liquid but patient did not tolerate status post Exploratory laparotomy with lysis of adhesions on 02/22 cont post-op care /hypernatremia - cont iv fluid /Hyperkalemia; s/p Calcium chloride 1 g IV Monitor electrolytes /History of chronic constipation; stool softeners as needed when clinically improves /Mild hypoglycemia; secondary to n.p.o. status Continue IV D50 as needed, on D5 normal saline Closely monitor blood sugars /-History of schizophrenia; Patient is on mild multiple psych medications we will hold Klonopin /-Developmental delay/mild mental retardation Supportive care --GERD; IV Protonix, --DVT prophylaxis; Heparin 02/18: SBFT showing partial obstruction, repeat abdominal x-ray tomorrow morning 02/19; repeat abdominal x-ray today shows normal findings, Plan to clamp NG, start on clear liquid diet 02/20; patient had couple episode of vomiting last night. Another trial of NG clamping and clear liquid diet today 02/21: plan for surgery today as he didnot improve with medical mx 02/22: Surgery could not perform yesterday due to conflict of the schedule. St atus post exploratory laparotomy today by Dr. Mclaughlin. Continue postop care 02/23; on NG suction, status post Exploratory laparotomy, lysis of adhesions, POD 1. Monitor electrolytes 02/24: cont NG suction and NPO, NG tube still bilious with significant drainage Disposition; follow clinically, follow surgery recommendations. Discharge when medically stable and cleared by surgery Brief history: 19 year old male with hx of downs syndrome, schizophrenia, bipolar and multiple abdominal surgeries (last surgery 7 months ago- colectomy for ischemic colon) was admitted through ED with nausea and vomiting. CT scan showed proximal small bowel obstruction. Patient also has history of chronic constipation. Physical exam: General appearance: Present: no acute distress, well-nourished - EENT Eyes: Present: PERRL, EOM intact - Neck Neck: Present: supple, normal ROM - Respiratory Respiratory effort: normal Respiratory: bilateral: diminished, negative: rales, rhonchi, wheezing - Cardiovascular Rhythm: regular Heart Sounds: Present: S1 & S2 - Extremities Extremities: no ischemia, No edema - Abdominal General gastrointestinal: soft, non-tender, non-distended, + bowel sounds, multiple surgical old scar and incision crane - Integumentary Integumentary: Present: clear, warm - Psychiatric Psychiatric: appropriate mood/affect, other (Mild mental retardation) - Neurologic Neurologic: moves all extremities Subjective Date of service: 02/25/20 Interval history: Patient seen and examined. Medical records and medication list reviewed. Patient on NG suction and NPO Post-op care by Objective - Constitutional Vitals: Vital Signs - 12hr 02/24/20 02/25/20 02/25/20 23:05 04:00 04:34 Temperature 98.0 F Pulse Rate 145 H 145 H 153 H Respiratory 18 Rate Blood Pressure 114/69 O2 Sat by Pulse 96 95 Oximetry 02/25/20 02/25/20 05:35 06:37 Temperature 99.1 F Pulse Rate 155 H Respiratory Rate Blood Pressure 140/51 O2 Sat by Pulse Oximetry - Labs CBC & Chem 7: 02/25/20 05:18 02/26/20 09:18 Labs: Abnormal lab results 02/25/20 02/25/20 Range/Units 05:18 05:18 RBC 3.59 L (3.65-5.03) M/mm3 Hgb 10.8 L (11.8-15.2) gm/dl Hct 32.9 L (35.5-45.6) % RDW 15.3 H (13.2-15.2) % Glucose 122 H (75-100) mg/dL Calcium 8.3 L (8.4-10.2) mg/dL Phosphorus 2.40 L D (2.5-4.5) mg/dL
--- NOTE | 2020-02-25 13:01 | Progress Note ---
Assessment and Plan 19-year-old male status post Exploratory laparotomy, lysis of adhesions, POD 2 (1) Small bowel obstruction Current Visit: Yes Status: Acute Plan to address problem: Patient is stable. NG tube still bilious with significant drainage Plan; 1. Continue NG tube to low intermittent suction 2. IV fluids 3. Out of bed to chair 4. N.p.o. except ice chips 5. DVT prophylaxis 6. GI prophylaxis 7. Incentive spirometry 8. Abdominal binder 9. add reglan IV TID Will monitor the patient's clinical progress, NG tube output. The patient has a history of intestinal dysmotility, with chronically distended small bowel. Thank you, please call with questions or concerns Evaluation and treatment of this patient was during the time of the national and state emergency arising from COVID19 coronavirus pandemic. Treatment and proc edures performed meet the current and available best practice and guidelines for patient during the COVID pandemic. Objective Vital Signs - 12hr 02/25/20 02/25/20 02/25/20 04:00 04:34 05:35 Temperature 99.1 F Pulse Rate 145 H 153 H Pulse Rate [ Right Radial] Respiratory Rate Blood Pressure O2 Sat by Pulse 95 Oximetry 02/25/20 02/25/20 02/25/20 06:37 10:00 12:37 Temperature 98.3 F Pulse Rate 155 H Pulse Rate [ 138 H Right Radial] Respiratory 18 Rate Blood Pressure 140/51 97/34 O2 Sat by Pulse Oximetry - General physical appearance Narrative Exam: Gen.: Awake, alert. Comfortable in bed. No apparent distress ENT: NGT with bilious drainage CV: S1, S2 present Respiratory: No audible wheezes Abdomen: Soft, nondistended, nontender. Incision is c/d/i with chaparro in place. Covered with gauze and abdominal binder put in place. No rebound, rigidity, guarding Extremities: No clubbing, cyanosis, edema - Labs 02/25/20 05:18 02/25/20 05:18 Diabetes panel 02/25/20 Range/Units 05:18 Sodium 141 (137-145) mmol/L Potassium 3.8 (3.6-5.0) mmol/L Chloride 103.6 (98-107) mmol/L Carbon Dioxide 27 (22-30) mmol/L BUN 12 (9-20) mg/dL Creatinine 1.0 (0.8-1.5) mg/dL Glucose 122 H (75-100) mg/dL Calcium 8.3 L (8.4-10.2) mg/dL Calcium panel 02/25/20 Range/Units 05:18 Calcium 8.3 L (8.4-10.2) mg/dL Phosphorus 2.40 L D (2.5-4.5) mg/dL Pituitary panel 02/25/20 Range/Units 05:18 Sodium 141 (137-145) mmol/L Potassium 3.8 (3.6-5.0) mmol/L Chloride 103.6 (98-107) mmol/L Carbon Dioxide 27 (22-30) mmol/L BUN 12 (9-20) mg/dL Creatinine 1.0 (0.8-1.5) mg/dL Glucose 122 H (75-100) mg/dL Calcium 8.3 L (8.4-10.2) mg/dL Adrenal panel 02/25/20 Range/Units 05:18 Sodium 141 (137-145) mmol/L Potassium 3.8 (3.6-5.0) mmol/L Chloride 103.6 (98-107) mmol/L Carbon Dioxide 27 (22-30) mmol/L BUN 12 (9-20) mg/dL Creatinine 1.0 (0.8-1.5) mg/dL Glucose 122 H (75-100) mg/dL Calcium 8.3 L (8.4-10.2) mg/dL
[2020-02-25] MEDS: METOCLOPRAMIDE 10 MG/2 ML INJ IV SCH ×2 (13:44→21:23)
[2020-02-25] MEDS ORDERED: POTASSIUM PHOSPHATE 30 MMOL in SODIUM CHLORIDE 0.9% 500 ML 500 ML IV ONE (14:18)
[2020-02-25] MEDS: traZODone 100 MG TAB PO SCH (21:58)
[2020-02-26] MEDS ORDERED: SODIUM CHLORIDE 0.9% 1000 ML 1,000 ML ONE ×2 (00:08→03:46)
[2020-02-26] MEDS ORDERED: SODIUM CHLORIDE 0.9% 1000 ML 1,000 ML IV ONE ×2 (00:14→05:00)
[2020-02-26] MEDS: ACETAMINOPHEN 325 MG TAB PO PRN (03:45)
[2020-02-26] MEDS: METOCLOPRAMIDE 10 MG/2 ML INJ IV SCH ×2 (06:14→13:39)
[2020-02-26] MEDS: D5W/0.45% NACL/KCL 20 MEQ 20 MEQ/1,000 ML BAG IV SCH (06:15)
[2020-02-26 10:09] LABS: Calcium 8.1 mg/dL (8.4-10.2)
[2020-02-26] MEDS: HEPARIN 5,000 UNIT/1 ML VIAL SUB-Q SCH (10:34)
[2020-02-26] MEDS: HALOPERIDOL LACTATE 5 MG/1 ML INJ IM PRN (10:34)
[2020-02-26] MEDS: FAMOTIDINE 20 MG/2 ML INJ IV SCH (10:34)
[2020-02-26] MEDS: DIVALPROEX ER 500 MG TAB PO SCH (10:35)
[2020-02-26] MEDS: BENZTROPINE 0.5 MG TAB PO SCH (10:35)
[2020-02-26] MEDS: MUPIROCIN 2% OINT 22 GM NS SCH (10:36)
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
[2020-02-26] MEDS ORDERED: LACTATED RINGERS 1,000 ML IV ONE (11:00)
--- NOTE | 2020-02-26 16:47 | Progress Note ---
Assessment and Plan /Small bowel obstruction; N.p.o. status, NG tube intermittent suction as needed Surgery following , s/p small bowel follow-through still showing partial obstruction repeat abdominal x-ray 02/19 shows normal findings clammed NG and had trial for clear liquid but patient did not tolerate status post Exploratory laparotomy with lysis of adhesions on 02/22 cont post-op care /Febrile illness with tachycardia and hypotension -Patient clinically looks stable, will order panculture -We will monitor vitals, clinically abdominal exam is benign /hypernatremia, resolved - cont iv fluid /Hyperkalemia; s/p Calcium chloride 1 g IV Monitor electrolytes /History of chronic constipation; stool softeners as needed when clinically improves /Mild hypoglycemia; secondary to n.p.o. status Continue IV D50 as needed, on D5 normal saline Closely monitor blood sugars /-History of schizophrenia; Patient is on mild multiple psych medications we will hold Klonopin /-Developmental delay/mild mental retardation Supportive care --GERD; IV Protonix, --DVT prophylaxis; Heparin 02/18: SBFT showing partial obstruction, repeat abdominal x-ray tomorrow morning 02/19; repeat abdominal x-ray today shows normal findings, Plan to clamp NG, start on clear liquid diet 02/20; patient had couple episode of vomiting last night. Another trial of NG clamping and clear liquid diet today 02/21: plan for surgery today as he didnot improve with medical mx 02/22: Surgery could not perform yesterday due to conflict of the schedule. Status post exploratory laparotomy today by Dr. Mclaughlin. Continue postop care 02/23; on NG suction, status post Exploratory laparotomy, lysis of adhesions, POD 1. Monitor electrolytes 02/24: cont NG suction and NPO, NG tube still bilious with significant drainage 02/25: vital signs showing high fever, tachycardia, and hypotension. Order blood culture UA and a chest x-ray, continue IV fluid, follow general surgery recommendation. started on clear liquid diet today Disposition; follow clinically, follow surgery recommendations. Discharge when medically stable and cleared by surgery Brief history: 19 year old male with hx of downs syndrome, schizophrenia, bipolar and multiple abdominal surgeries (last surgery 7 months ago- colectomy for ischemic colon) was admitted through ED with nausea and vomiting. CT scan showed proximal small bowel obstruction. Patient also has history of chronic constipation. Physical exam: General appearance: Present: no acute distress, well-nourished - EENT Eyes: Present: PERRL, EOM intact - Neck Neck: Present: supple, normal ROM - Respiratory Respiratory effort: normal Respiratory: bilateral: diminished, negative: rales, rhonchi, wheezing - Cardiovascular Rhythm: regular Heart Sounds: Present: S1 & S2 - Extremities Extremities: no ischemia, No edema - Abdominal General gastrointestinal: soft, non-tender, non-distended, + bowel sounds, multiple surgical old scar and incision crane - Integumentary Integumentary: Present: clear, warm - Psychiatric Psychiatric: appropriate mood/affect, other (Mild mental retardation) - Neurologic Neurologic: moves all extremities Subjective Date of service: 02/26/20 Interval history: Patient seen and examined. Medical records and medication list reviewed. Patient pulled of NG tube, had BM today was agitated this am. spiked fever Objective - Constitutional Vitals: Vital Signs - 12hr 02/26/20 02/26/20 11:38 12:02 Temperature 98.9 F Pulse Rate 115 H 92 H Respiratory 20 Rate Blood Pressure 87/45 O2 Sat by Pulse 97 Oximetry - Labs CBC & Chem 7: 02/27/20 05:00 02/27/20 05:00 Labs: Abnormal lab results 02/26/20 Range/Units 09:18 Carbon Dioxide 19 L D (22-30) mmol/L BUN 24 H (9-20) mg/dL Creatinine 1.9 H D (0.8-1.5) mg/dL Calcium 8.1 L (8.4-10.2) mg/dL
--- NOTE | 2020-02-26 18:51 | XRay Report ---
CHEST 1 VIEW INDICATION / CLINICAL INFORMATION: fever. COMPARISON: 02/17/2020 FINDINGS: SUPPORT DEVICES: NG tube is seen extending into the stomach. HEART / MEDIASTINUM: No significant abnormality. LUNGS / PLEURA: There has been interval development of moderate basilar lung consolidation left great er than right consistent with aspiration or pneumonia. This finding is new when compared to the prior film. The mid and upper lungs are clear. No edema or effusion. No pneumothorax. ADDITIONAL FINDINGS: No significant additional findings. IMPRESSION: 1 Developing bibasilar consolidation. Signer Name: Gibran Thorne MD Signed: 02/26/2020 12:02 PM Workstation Name: [id number]
[2020-02-27] MEDS: BENZTROPINE 0.5 MG TAB PO SCH ×3 (00:05→22:33)
[2020-02-27] MEDS: METOCLOPRAMIDE 10 MG/2 ML INJ IV SCH ×4 (00:05→22:46)
[2020-02-27] MEDS: MUPIROCIN 2% OINT 22 GM NS SCH ×3 (00:05→22:35)
[2020-02-27] MEDS: HEPARIN 5,000 UNIT/1 ML VIAL SUB-Q SCH ×3 (00:06→22:45)
[2020-02-27] MEDS: DIVALPROEX ER 500 MG TAB PO SCH ×3 (00:06→22:34)
[2020-02-27] MEDS: traZODone 100 MG TAB PO SCH ×2 (00:09→22:33)
[2020-02-27] MEDS: FAMOTIDINE 20 MG/2 ML INJ IV SCH (00:09)
[2020-02-27 05:57] LABS: Basophils % (Auto) 0.4 % (0.0-1.8); Eosinophils # (Auto) 0.1 K/mm3 (0.0-0.4); Eosinophils % (Auto) 0.8 % (0.0-4.3); Hematocrit 31.6 % (35.5-45.6); Hemoglobin 10.4 gm/dl (11.8-15.2); Lymphocytes # (Auto) 1.1 K/mm3 (1.2-5.4); Lymphocytes % (Auto) 10.7 % (13.4-35.0); Mean Corpuscular HGB Conc 33 % (32-34); Mean Corpuscular Volume 91 fl (84-94); Monocytes # (Auto) 0.8 K/mm3 (0.0-0.8); Monocytes % (Auto) 7.8 % (0.0-7.3); Platelet Count 116 K/mm3 (140-440); Red Blood Count 3.48 M/mm3 (3.65-5.03); Red Cell Distribution Width 16.3 % (13.2-15.2)
[2020-02-27 06:00] LABS: BUN/Creatinine Ratio 21; Blood Urea Nitrogen 19 mg/dL (9-20); Calcium 8.2 mg/dL (8.4-10.2); Hemolysis Index 9
[2020-02-27] MEDS: FAMOTIDINE 20 MG TAB PO SCH ×2 (09:58→22:32)
--- NOTE | 2020-02-27 11:02 | Progress Note ---
Assessment and Plan - Patient Problems (1) Small bowel obstruction Current Visit: Yes Status: Acute Plan to address problem: Pt stable. s/p ex lap and ЕЛЕНА (02/23/20) - POD#4. Patient's clinical appearance is not consistent with the vital signs showing high fever, tachycardia, and hypotension. Subjectively, patient gives the appearance of dehydration. Denies any pulmonary symptoms or leg pain. Based on the recent chest x-ray, the recent abnormal vitals perhaps are related to pneumonia. It may be worthwhile to start him on antibiotics for a ra diographic finding consistent with pneumonia. Recommend: 1. Cont with IVF resuscitation 2. Cont with clears. Would like to see him consistently pass gas and have bowel movements prior to advancing his diet. 3. Would benefit from ambulation 4. Cont to encourage IS Please call with questions. Subjective Date of service: 02/27/20 Patient Reports: Positive: no new complaints, tolerating liquids well, no flatus, no bowel movement, afebrile. Negative: nausea, vomiting Objective Vital Signs - 12hr 02/27/20 02/27/20 02/27/20 00:00 04:05 06:00 Temperature 97.8 F Pulse Rate 98 H 147 H 139 H Respiratory 20 Rate Blood Pressure 100/50 Blood Pressure 118/60 [Left] O2 Sat by Pulse 98 64 L Oximetry 02/27/20 06:40 Temperature Pulse Rate 110 H Respiratory Rate Blood Pressure Blood Pressure [Left] O2 Sat by Pulse 96 Oximetry - General physical appearance no distress, no pain, obese, other (looks well. does not appear ill) - Eyes normal occular movement - Respiratory normal expansion, normal respiratory effort - Abdomen soft, not tender, not distended - Integumentary no rash, no growths, no abnormal pigmentation - Psychiatric oriented to person, speech is normal - Labs 02/27/20 05:00 02/27/20 05:00 Diabetes panel 02/27/20 Range/Units 05:00 Sodium 140 (137-145) mmol/L Potassium 4.0 (3.6-5.0) mmol/L Chloride 106.0 (98-107) mmol/L Carbon Dioxide 23 (22-30) mmol/L BUN 19 (9-20) mg/dL Creatinine 0.9 D (0.8-1.5) mg/dL Glucose 117 H (75-100) mg/dL Calcium 8.2 L (8.4-10.2) mg/dL Calcium panel 02/27/20 Range/Units 05:00 Calcium 8.2 L (8.4-10.2) mg/dL Pituitary panel 02/27/20 Range/Units 05:00 Sodium 140 (137-145) mmol/L Potassium 4.0 (3.6-5.0) mmol/L Chloride 106.0 (98-107) mmol/L Carbon Dioxide 23 (22-30) mmol/L BUN 19 (9-20) mg/dL Creatinine 0.9 D (0.8-1.5) mg/dL Glucose 117 H (75-100) mg/dL Calcium 8.2 L (8.4-10.2) mg/dL Adrenal panel 02/27/20 Range/Units 05:00 Sodium 140 (137-145) mmol/L Potassium 4.0 (3.6-5.0) mmol/L Chloride 106.0 (98-107) mmol/L Carbon Dioxide 23 (22-30) mmol/L BUN 19 (9-20) mg/dL Creatinine 0.9 D (0.8-1.5) mg/dL Glucose 117 H (75-100) mg/dL Calcium 8.2 L (8.4-10.2) mg/dL
[2020-02-27] MEDS: HYDROmorphone 1 MG/1 ML INJ IV PRN (11:21)
--- NOTE | 2020-02-27 15:22 | Progress Note ---
Assessment and Plan /Small bowel obstruction; Surgery following , s/p small bowel follow-through still showing partial obstruction repeat abdominal x-ray 02/19 shows normal findings s/p NG suction, clammed NG and had trial for clear liquid but patient did not tolerate status post Exploratory laparotomy with lysis of adhesions on 02/22 cont post-op care per GS, tolerating clear liquid diet now /Gm neg bacteremia - developed Febrile illness with tachycardia and hypotension on 02/25 -Patient clinically looks stable, blood cx +ve for gm -ve rods -start on rocephin, f/u final cx /hypernatremia, resolved - cont iv fluid /Hyperkalemia; s/p Calcium chloride 1 g IV Monitor electrolytes /COLUMBA, Cr upto 1.9 - resolved cont iv fluid, likely vasomotor nephropathy /History of chronic constipation; stool softeners as needed when clinically improves /Mild hypoglycemia; secondary to n.p.o. status Continue IV D50 as needed, on D5 normal saline Closely monitor blood sugars /-History of schizophrenia; Patient is on mild multiple psych medications we will hold Klonopin /-Developmental delay/mild mental retardation Supportive care --GERD; IV Protonix, --DVT prophylaxis; Heparin 02/18: SBFT showing partial obstruction, repeat abdominal x-ray tomorrow morning 02/19; repeat abdominal x-ray today shows normal findings, Plan to clamp NG, start on clear liquid diet 02/20; patient had couple episode of vomiting last night. Another trial of NG clamping and clear liquid diet today 02/21: plan for surgery today as he didnot improve with medical mx 02/22: Surgery could not perform yesterday due to conflict of the schedule. Status post exploratory laparotomy today by Dr. Mclaughlin. Continue postop care 02/23; on NG suction, status post Exploratory laparotomy, lysis of adhesions, POD 1. Monitor electrolytes 02/24: cont NG suction and NPO, NG tube still bilious with significant drainage 02/25: vital signs showing high fever, tachycardia, and hypotension. Order blood culture UA and a chest x-ray, continue IV fluid, follow general surgery recommendation. started on clear liquid diet today 02/26: on clear liquid diet today, start ambulation. had small BM today, start on rocephin for gm -ve bacteremia Disposition; follow clinically, follow surgery recommendations. Discharge when medically stable and cleared by surgery Brief history: 19 year old male with hx of downs syndrome, schizophrenia, bipolar and multiple abdominal surgeries (last surgery 7 months ago- colectomy for ischemic colon) was admitted through ED with nausea and vomiting. CT scan showed proximal small bowel obstruction. Patient also has history of chronic constipation. Physical exam: General appearance: Present: no acute distress, well-nourished - EENT Eyes: Present: PERRL, EOM intact - Neck Neck: Present: supple, normal ROM - Respiratory Respiratory effort: normal Respiratory: bilateral: diminished, negative: rales, rhonchi, wheezing - Cardiovascular Rhythm: regular Heart Sounds: Present: S1 & S2 - Extremities Extremities: no ischemia, No edema - Abdominal General gastrointestinal: soft, non-tender, non-distended, + bowel sounds, multiple surgical old scar and incision crane - Integumentary Integumentary: Present: clear, warm - Psychiatric Psychiatric: appropriate mood/affect, other (Mild mental retardation) - Neurologic Neurologic: moves all extremities Subjective Date of service: 02/27/20 Interval history: Patient seen and examined. Medical records and medication list reviewed. Patient much cooperative today tolerating clear liquid diet one out of two blood cx +ve for gm-ve srini Objective - Constitutional Vitals: Vital Signs - 12hr 02/27/20 02/27/20 02/27/20 04:05 06:00 06:40 Temperature 97.8 F Pulse Rate 147 H 139 H 110 H Respiratory 20 Rate Blood Pressure 100/50 O2 Sat by Pulse 64 L 96 Oximetry 02/27/20 02/27/20 02/27/20 09:10 11:15 11:24 Temperature 98.2 F 98.2 F Pulse Rate 145 H 133 H Respiratory 18 18 Rate Blood Pressure 115/46 114/29 O2 Sat by Pulse 97 Oximetry - Labs CBC & Chem 7: 02/27/20 05:00 02/27/20 05:00 Labs: Abnormal lab results 02/23/20 02/27/20 02/27/20 Range/Units 13:45 05:00 05:00 RBC 3.48 L (3.65-5.03) M/mm3 Hgb 10.4 L (11.8-15.2) gm/dl Hct 31.6 L (35.5-45.6) % RDW 16.3 H (13.2-15.2) % Plt Count 116 L (140-440) K/mm3 Lymph % (Auto) 10.7 L (13.4-35.0) % Saline % (Auto) 7.8 H (0.0-7.3) % Lymph # 1.1 L (1.2-5.4) K/mm3 Seg Neutrophils % 80.3 H (40.0-70.0) % Seg Neutrophils # 8.4 H (1.8-7.7) K/mm3 Glucose 117 H (75-100) mg/dL POC Glucose 109 H (70-105) Calcium 8.2 L (8.4-10.2) mg/dL
[2020-02-27] MEDS ORDERED: cefTRIAXone/NS 1 GM/50 ML 1 GM/50 ML BAG IV SCH (17:00)
[2020-02-27] MEDS: cefTRIAXone/NS 2 GM/100 ML 2 GM/100 ML BAG IV SCH (17:50)
[2020-02-27] MEDS ORDERED: DIVALPROEX ER 250 MG TAB PO SCH (22:00)
[2020-02-28] MEDS: D5W/0.45% NACL/KCL 20 MEQ 20 MEQ/1,000 ML BAG IV SCH (02:25)
[2020-02-28] MEDS: METOCLOPRAMIDE 10 MG/2 ML INJ IV SCH ×3 (05:08→22:23)
[2020-02-28] MEDS ORDERED: LIP THERAPY VASELINE TP PRN (08:51)
--- NOTE | 2020-02-28 08:51 | Progress Note ---
Assessment and Plan - Patient Problems (1) Small bowel obstruction Current Visit: Yes Status: Acute Plan to address problem: Pt stable. s/p ex lap and ЕЛЕНА (02/23/20) - POD#5. Patient appears clinically different today. Now he appears to be getting ill. He appears to have chills today. So far we have 1+ blood culture with gram-negative rods. Chest x-ray suggestive of pneumonia. We were unable to get a urine sample for urinalysis. He continues to tolerate oral liquids and does not exhibit any abdominal tenderness. However, he reports no flatus or bowel movement for the last 2 days. Overall, this picture could be consistent with pneumonia and bacteremia. As he is tolerating liquids and not having abdominal pain, it seems less likely that his clinical picture is related to an abdominal issue. However, if he does not respond to the antibiotics in the next 48 to 72 hours, or he clinically worsens, it may be worthwhile to do a CT of his chest/abdomen/pelvis. The challenge we will have is that he will most likely have some residual free air and fluid from his 5-day-old surgery. On his most recent chest x-ray 2 days ago, he appears to have some residual air underneath the left hemidiaphragm. This is expected. I discussed my concerns with Dr. Mccloud. We discussed giving consideration to moving him to [facility] and whether COVID testing should be done. I defer to her for these decisions. Recommend: 1. Cont with IVF resuscitation 2. Cont with clears. Would like to see him consistently pass gas and have bowel movements prior to advancing his diet. 3. Would benefit from ambulation 4. Cont to encourage IS 5. Consider transfer to [facility] 6. Consider COVID testing Please call with questions. Subjective Date of service: 02/28/20 Patient Reports: Positive: no new complaints, tolerating liquids well, no flatus, no bowel movement. Negative: nausea, vomiting Objective Vital Signs - 12hr 02/27/20 02/28/20 02/28/20 22:00 00:00 00:20 Temperature 97.5 F L 97.5 F L Pulse Rate 128 H 54 L 65 Respiratory 18 19 Rate Blood Pressure 91/37 Blood Pressure 91/37 [Left] O2 Sat by Pulse 90 83 L Oximetry 02/28/20 02/28/20 02/28/20 03:53 07:26 08:00 Temperature 99.5 F Pulse Rate 122 H 131 H Respiratory 20 20 Rate Blood Pressure 97/53 97/37 Blood Pressure [Left] O2 Sat by Pulse 91 Oximetry - General physical appearance no distress, no pain, obese, other (Patient is laying on his side, shivering. He appears ill today.) - Eyes normal occular movement - Respiratory normal expansion, other (slight increase rate of respirations) - Abdomen soft, not tender, not distended, not guarding, not rigid, surgical scars (C/D/I) - Psychiatric oriented to person, speech is normal (for him) - Labs 02/27/20 05:00 02/27/20 05:00
--- NOTE | 2020-02-28 10:34 | XRay Report ---
CHEST 1 VIEW INDICATION: increased need for oxygen. COMPARISON: 02/26/2020 FINDINGS: Support devices: None. Heart: Within normal limits. Lungs/Pleura: There is poor inspiration with mild hypoventilatory changes in the lower lung zones. No convincing infiltrate, pleural fluid or pneumothorax. Additional findings: None. IMPRESSION: Grossly negative expiratory chest x-ray. Signer Name: Jacob Corrales Jr, MD Signed: 02/28/2020 10:30 AM Workstation Name: [id number]
[2020-02-28] MEDS: cefTRIAXone/NS 2 GM/100 ML 2 GM/100 ML BAG IV SCH (11:37)
[2020-02-28] MEDS: DIVALPROEX ER 500 MG TAB PO SCH ×2 (11:37→22:23)
[2020-02-28] MEDS: BENZTROPINE 0.5 MG TAB PO SCH ×2 (11:37→22:23)
[2020-02-28] MEDS: FAMOTIDINE 20 MG TAB PO SCH ×2 (11:37→22:23)
[2020-02-28] MEDS: HEPARIN 5,000 UNIT/1 ML VIAL SUB-Q SCH ×2 (11:38→22:23)
[2020-02-28] MEDS: MUPIROCIN 2% OINT 22 GM NS SCH ×2 (12:38→22:24)
--- NOTE | 2020-02-28 15:31 | Progress Note ---
Assessment and Plan /Acute on chronic CHF exacerbation - likely from agressive hydration - Ef 20-25% on 06/28, will repeat echo - stop iv fluid /Acute respiratory failure - due to pulmonary edema vs ? PNA - on high flow O2, give one dose of lasix - cont abx, transfer to [facility] /Small bowel obstruction; Surgery following , s/p small bowel follow-through still showing partial obstruction repeat abdominal x-ray 02/19 shows normal findings s/p NG suction, clammed NG and had trial for clear liquid but patient did not tolerate status post Exploratory laparotomy with lysis of adhesions on 02/22 cont post-op care per GS, tolerating clear liquid diet now /Gm neg bacteremia - developed Febrile illness with tachycardia and hypotension on 02/25 -Patient clinically looks stable, blood cx +ve for gm -ve rods -cont on rocephin, f/u final cx /hypernatremia, resolved - s/p iv fluid /Hyperkalemia; s/p Calcium chloride 1 g IV Monitor electrolytes /COLUMBA, Cr upto 1.9 - resolved s/p iv fluid, likely vasomotor nephropathy /History of chronic constipation; stool softeners as needed when clinically improves /Mild hypoglycemia; due to n.p.o. status - now resolved Continue IV D50 as needed, Closely monitor blood sugars /-History of schizophrenia; Patient is on mild multiple psych medications we will hold Klonopin /-Developmental delay/mild mental retardation Supportive care --GERD; IV Protonix, --DVT prophylaxis; Heparin 02/18: SBFT showing partial obstruction, repeat abdominal x-ray tomorrow morning 02/19; repeat abdominal x-ray today shows normal findings, Plan to clamp NG, start on clear liquid diet 02/20; patient had couple episode of vomiting last night. Another trial of NG clamping and clear liquid diet today 02/21: plan for surgery today as he didnot improve with medical mx 02/22: Surgery could not perform yesterday due to conflict of the schedule. Status post exploratory laparotomy today by Dr. Mclaughlin. Continue postop care 02/23; on NG suction, status post Exploratory laparotomy, lysis of adhesions, POD 1. Monitor electrolytes 02/24: cont NG suction and NPO, NG tube still bilious with significant drainage 02/25: vital signs showing high fever, tachycardia, and hypotension. Order blood culture UA and a chest x-ray, continue IV fluid, follow general surgery recommendation. started on clear liquid diet today 02/26: on clear liquid diet today, start ambulation. had small BM today, start on rocephin for gm -ve bacteremia 02/27: CXR with b/l pulmonary edema, stop fluid, order echo, cont iv abx, repeat blood cx Disposition; follow clinically, follow surgery recommendations. Discharge when medically stable and cleared by surgery Brief history: 19 year old male with hx of downs syndrome, schizophrenia, bipolar and multiple abdominal surgeries (last surgery 7 months ago- colectomy for ischemic colon) was admitted through ED with nausea and vomiting. CT scan showed proximal small bowel obstruction. Patient also has history of chronic constipation. Physical exam: General appearance: Present: no acute distress, well-nourished - EENT Eyes: Present: PERRL, EOM intact - Neck Neck: Present: supple, normal ROM - Respiratory Respiratory effort: normal Respiratory: bilateral: diminished, + rales - Cardiovascular Rhythm: regular Heart Sounds: Present: S1 & S2 - Extremities Extremities: no ischemia, No edema - Abdominal General gastrointestinal: soft, non-tender, non-distended, + bowel sounds, multiple surgical old scar and incision crane - Integumentary Integumentary: Present: clear, warm - Psychiatric Psychiatric: appropriate mood/affect, other (Mild mental retardation) - Neurologic Neurologic: moves all extremities Subjective Date of service: 02/28/20 Interval history: Patient seen and examined. Medical records and medication list reviewed. tolerating clear liquid diet placed on high flow O2, denies any abdominal pain Objective - Constitutional Vitals: Vital Signs - 12hr 02/28/20 02/28/20 02/28/20 03:53 07:26 08:00 Temperature 99.5 F Pulse Rate 122 H 131 H Respiratory 20 20 Rate Blood Pressure 97/53 97/37 O2 Sat by Pulse 91 Oximetry 02/28/20 02/28/20 10:00 11:53 Temperature 99.9 F H Pulse Rate 116 H Respiratory 22 20 Rate Blood Pressure 135/71 O2 Sat by Pulse 100 Oximetry - Labs CBC & Chem 7: 02/27/20 05:00 02/27/20 05:00
[2020-02-28] MEDS ORDERED: FUROSEMIDE 40 MG/4 ML INJ IV ONE (16:42)
[2020-02-28] MEDS: traZODone 100 MG TAB PO SCH (22:23)
[2020-02-28] MEDS: HALOPERIDOL LACTATE 5 MG/1 ML INJ IM PRN (23:46)
[2020-02-29] MEDS: D5W/0.45% NACL/KCL 20 MEQ 20 MEQ/1,000 ML BAG IV SCH ×2 (05:24→20:32)
[2020-02-29] MEDS: ACETAMINOPHEN 325 MG TAB PO PRN (05:25)
[2020-02-29] MEDS: METOCLOPRAMIDE 10 MG/2 ML INJ IV SCH ×3 (05:26→22:33)
[2020-02-29 08:38] LABS: BUN/Creatinine Ratio 16; Blood Urea Nitrogen 11 mg/dL (9-20); Calcium 8.4 mg/dL (8.4-10.2); Hemolysis Index 42
[2020-02-29 09:39] LABS: Hematocrit 29.2 % (35.5-45.6); Hemoglobin 9.7 gm/dl (11.8-15.2); Mean Corpuscular HGB Conc 33 % (32-34); Mean Corpuscular Volume 90 fl (84-94); Platelet Count 161 K/mm3 (140-440); Red Blood Count 3.24 M/mm3 (3.65-5.03); Red Cell Distribution Width 15.4 % (13.2-15.2)
--- NOTE | 2020-02-29 11:44 | Progress Note ---
Assessment and Plan - Patient Problems (1) Small bowel obstruction Current Visit: Yes Status: Acute Plan to address problem: Pt stable. s/p ex lap and ЕЛЕНА (02/23/20) - POD#6. Patient appears back to baseline. He appears more comfortable this morning. Patient had a bowel movement last night. Abdomen remains soft. He has very good bowel sounds. There is still nothing obvious to suggest a problem in the abdomen. I will try advancing his diet to full liquid diet. WBC remains normal Recommend: 1. Advance to full liquid diet 2. Encourage pulmonary toilet Please call with questions. Subjective Date of service: 02/29/20 Patient Reports: Positive: no new complaints, tolerating liquids well, bowel movement, other (no pain) Objective Vital Signs - 12hr 02/29/20 02/29/20 02/29/20 00:37 00:41 01:00 Temperature 99.7 F H Pulse Rate 100 H 100 H Respiratory 24 Rate Blood Pressure 102/53 Blood Pressure [Left] O2 Sat by Pulse 99 Oximetry 02/29/20 02/29/20 02/29/20 02:00 03:00 04:04 Temperature 100.3 F H Pulse Rate 105 H 93 H Respiratory 24 Rate Blood Pressure 100/52 Blood Pressure [Left] O2 Sat by Pulse 99 99 Oximetry 02/29/20 02/29/20 08:00 09:30 Temperature 99.6 F Pulse Rate 81 Respiratory 25 H Rate Blood Pressure Blood Pressure 90/52 [Left] O2 Sat by Pulse 100 100 Oximetry - General physical appearance well developed, well nourished, no distress, no pain, obese, other (sedated from his scehduled meds. appears back to baseline) - Respiratory normal expansion, normal respiratory effort - Abdomen soft, not tender, bowel sounds normal (active and normal), not distended, not rebound, not guarding, not rigid, surgical scars (C/D/I) - Integumentary no rash, no growths, no abnormal pigmentation - Labs 02/29/20 09:09 02/29/20 07:24 Diabetes panel 02/29/20 Range/Units 07:24 Sodium 137 (137-145) mmol/L Potassium 4.5 (3.6-5.0) mmol/L Chloride 105.8 (98-107) mmol/L Carbon Dioxide 20 L (22-30) mmol/L BUN 11 (9-20) mg/dL Creatinine 0.7 L (0.8-1.5) mg/dL Glucose 100 (75-100) mg/dL Calcium 8.4 (8.4-10.2) mg/dL Calcium panel 02/29/20 Range/Units 07:24 Calcium 8.4 (8.4-10.2) mg/dL Pituitary panel 02/29/20 Range/Units 07:24 Sodium 137 (137-145) mmol/L Potassium 4.5 (3.6-5.0) mmol/L Chloride 105.8 (98-107) mmol/L Carbon Dioxide 20 L (22-30) mmol/L BUN 11 (9-20) mg/dL Creatinine 0.7 L (0.8-1.5) mg/dL Glucose 100 (75-100) mg/dL Calcium 8.4 (8.4-10.2) mg/dL Adrenal panel 02/29/20 Range/Units 07:24 Sodium 137 (137-145) mmol/L Potassium 4.5 (3.6-5.0) mmol/L Chloride 105.8 (98-107) mmol/L Carbon Dioxide 20 L (22-30) mmol/L BUN 11 (9-20) mg/dL Creatinine 0.7 L (0.8-1.5) mg/dL Glucose 100 (75-100) mg/dL Calcium 8.4 (8.4-10.2) mg/dL
[2020-02-29] MEDS: cefTRIAXone/NS 2 GM/100 ML 2 GM/100 ML BAG IV SCH (11:45)
[2020-02-29] MEDS: BENZTROPINE 0.5 MG TAB PO SCH ×2 (11:46→22:33)
[2020-02-29] MEDS: DIVALPROEX ER 500 MG TAB PO SCH ×2 (11:46→22:34)
[2020-02-29] MEDS: FAMOTIDINE 20 MG TAB PO SCH ×2 (11:46→22:33)
[2020-02-29] MEDS: HEPARIN 5,000 UNIT/1 ML VIAL SUB-Q SCH ×2 (11:47→22:35)
[2020-02-29] MEDS: MUPIROCIN 2% OINT 22 GM NS SCH ×2 (17:09→22:36)
--- NOTE | 2020-02-29 18:14 | Progress Note ---
Assessment and Plan - Patient Problems (1) Congestive heart failure (CHF) Current Visit: Yes Status: Acute Plan to address problem: Patient with congestive heart failure ejection fraction 20 to 25%. Currently hemodynamically stable. No JVD trace edema no crackles. Continue medical management. Patient on diuretics but not on ARLIN inhibitor or beta-cesar because of new surgery. N.p.o. Patient now tolerating meals well. (2) Small bowel obstruction Current Visit: Yes Status: Acute (3) Bacteremia due to Gram-negative bacteria Current Visit: Yes Status: Acute Plan to address problem: Blood cultures negative treated with Rocephin. Blood culture gram-negative rods. (4) Hyponatremia Current Visit: Yes Status: Acute (5) Small bowel obstruction due to adhesions Current Visit: Yes Status: Acute Plan to address problem: Secondary to adhesions exploratory lap with lysis of adhesions. Patient hemodynamically stable has bowel sounds this post bowel movement. Discussed with surgery about transfer home. (6) [place]UM[place] (acute kidney injury) Current Visit: No Status: Acute Plan to address problem: Prerenal azotemia has resolved. (7) Acute respiratory failure Current Visit: No Status: Acute Qualifiers: Respiratory failure complication: hypoxia Qualified Code(s): J96.01 - Acute respiratory failure with hypoxia Plan to address problem: Secondary to pulmonary edema patient was on high flow O2 has been weaned down to nasal cannula today much better. History Interval history: 19-year-old male history of Down syndrome schizophrenia bipolar disorder multiple abdominal surgeries. Presented this admission with small bowel obst ruction underwent exploratory laparotomy and is currently doing much better. Patient had a bowel movement is passing gas.. Patient also has bowel sounds. Postop day 6 stable back at baseline. Hospitalist Physical - Constitutional Vitals: Temp Pulse Resp BP Pulse Ox 98.6 F 88 25 H 98/54 99 02/29/20 16:00 02/29/20 16:00 02/29/20 16:00 02/29/20 16:00 02/29/20 16:00 General appearance: Present: no acute distress, well-nourished - EENT Eyes: Present: PERRL, EOM intact ENT: hearing intact, clear oral mucosa, dentition normal - Neck Neck: Present: supple, normal ROM - Respiratory Respiratory: bilateral: CTA - Cardiovascular Rhythm: regular - Extremities Extremities: no ischemia, pulses intact, pulses symmetrical, No edema, normal temperature Peripheral Pulses: within normal limits - Abdominal General gastrointestinal: soft, distended, other (Positive bowel sounds), no hepatomegaly, no splenomegaly - Integumentary Integumentary: Present: clear, warm, dry - Psychiatric Psychiatric: cooperative, other (At baseline cognitively.) - Neurologic Neurologic: CNII-XII intact, no focal deficits, moves all extremities Results - Labs CBC & Chem 7: 02/29/20 09:09 02/29/20 07:24 Labs: Laboratory Last Values WBC 10.3 K/mm3 (4.5-11.0) 02/29/20 09:09 RBC 3.24 M/mm3 (3.65-5.03) L 02/29/20 09:09 Hgb 9.7 gm/dl (11.8-15.2) L 02/29/20 09:09 Hct 29.2 % (35.5-45.6) L 02/29/20 09:09 MCV 90 fl (84-94) 02/29/20 09:09 MCH 30 pg (28-32) 02/29/20 09:09 MCHC 33 % (32-34) 02/29/20 09:09 RDW 15.4 % (13.2-15.2) H 02/29/20 09:09 Plt Count 161 K/mm3 (140-440) 02/29/20 09:09 Lymph % (Auto) Global Safety Officer 02/29/20 09:09 Maury % (Auto) Global Safety Officer 02/29/20 09:09 Eos % (Auto) Global Safety Officer 02/29/20 09:09 Baso % (Auto) Global Safety Officer 02/29/20 09:09 Lymph # Global Safety Officer 02/29/20 09:09 Maury # Global Safety Officer 02/29/20 09:09 Eos # Global Safety Officer 02/29/20 09:09 Baso # Global Safety Officer 02/29/20 09:09 Add Manual Diff Complete 02/29/20 09:09 Total Counted 100 02/22/20 05:09 Seg Neutrophils % Global Safety Officer 02/29/20 09:09 Seg Neuts % (Manual) 64.0 % (40.0-70.0) 02/22/20 05:09 Band Neutrophils % 10.0 % 02/22/20 05:09 Lymphocytes % (Manual) 13.0 % (13.4-35.0) L 02/22/20 05:09 Reactive Lymphs % (Man) 0 % 02/22/20 05:09 Monocytes % (Manual) 11.0 % (0.0-7.3) H 02/22/20 05:09 Eosinophils % (Manual) 0 % (0.0-4.3) 02/22/20 05:09 Basophils % (Manual) 2.0 % (0.0-1.8) H 02/22/20 05:09 Metamyelocytes % 0 % 02/22/20 05:09 Myelocytes % 0 % 02/22/20 05:09 Promyelocytes % 0 % 02/22/20 05:09 Blast Cells % 0 % 02/22/20 05:09 Nucleated RBC % Not Reportable 02/22/20 05:09 Seg Neutrophils # Global Safety Officer 02/29/20 09:09 Seg Neutrophils # Man 4.5 K/mm3 (1.8-7.7) 02/22/20 05:09 Band Neutrophils # 0.7 K/mm3 02/22/20 05:09 Lymphocytes # (Manual) 0.9 K/mm3 (1.2-5.4) L 02/22/20 05:09 Abs React Lymphs (Man) 0.0 K/mm3 02/22/20 05:09 Monocytes # (Manual) 0.8 K/mm3 (0.0-0.8) 02/22/20 05:09 Eosinophils # (Manual) 0.0 K/mm3 (0.0-0.4) 02/22/20 05:09 Basophils # (Manual) 0.1 K/mm3 (0.0-0.1) 02/22/20 05:09 Metamyelocytes # 0.0 K/mm3 02/22/20 05:09 Myelocytes # 0.0 K/mm3 02/22/20 05:09 Promyelocytes # 0.0 K/mm3 02/22/20 05:09 Blast Cells # 0.0 K/mm3 02/22/20 05:09 WBC Morphology Not Reportable 02/22/20 05:09 Hypersegmented Neuts Not Reportable 02/22/20 05:09 Hyposegmented Neuts Not Reportable 02/22/20 05:09 Hypogranular Neuts Not Reportable 02/22/20 05:09 Smudge Cells Not Reportable 02/22/20 05:09 Toxic Granulation Not Reportable 02/22/20 05:09 Toxic Vacuolation Not Reportable 02/22/20 05:09 Dohle Bodies Not Reportable 02/22/20 05:09 Pelger-Huet Anomaly Not Reportable 02/22/20 05:09 Alea Rods Not Reportable 02/22/20 05:09 Platelet Estimate Consistent w auto 02/22/20 05:09 Clumped Platelets Not Reportable 02/22/20 05:09 Plt Clumps, EDTA Not Reportable 02/22/20 05:09 Large Platelets Not Reportable 02/22/20 05:09 Giant Platelets Not Reportable 02/22/20 05:09 Platelet Satelliting Not Reportable 02/22/20 05:09 Plt Morphology Comment Not Reportable 02/22/20 05:09 RBC Morphology Not Reportable 02/22/20 05:09 Dimorphic RBCs Not Reportable 02/22/20 05:09 Polychromasia Not Reportable 02/22/20 05:09 Hypochromasia Not Reportable 02/22/20 05:09 Poikilocytosis Not Reportable 02/22/20 05:09 Anisocytosis Rare 02/22/20 05:09 Microcytosis Not Reportable 02/22/20 05:09 Macrocytosis Not Reportable 02/22/20 05:09 Spherocytes Not Reportable 02/22/20 05:09 Pappenheimer Bodies Not Reportable 02/22/20 05:09 Sickle Cells Not Reportable 02/22/20 05:09 Target Cells Not Reportable 02/22/20 05:09 Tear Drop Cells Not Reportable 02/22/20 05:09 Ovalocytes Not Reportable 02/22/20 05:09 Helmet Cells Not Reportable 02/22/20 05:09 [place] Bodies Not Reportable 02/22/20 05:09 [place] Rings Not Reportable 02/22/20 05:09 [place] Cells Not Reportable 02/22/20 05:09 Bite Cells Not Reportable 02/22/20 05:09 Crenated Cell Not Reportable 02/22/20 05:09 Elliptocytes Rare 02/22/20 05:09 Acanthocytes (Spur) Not Reportable 02/22/20 05:09 Rouleaux Not Reportable 02/22/20 05:09 Hemoglobin C Crystals Not Reportable 02/22/20 05:09 Schistocytes Not Reportable 02/22/20 05:09 Malaria parasites Not Reportable 02/22/20 05:09 Emanuel Bodies Not Reportable 02/22/20 05:09 Hem Pathologist Commnt No 02/22/20 05:09 Sodium 137 mmol/L (137-145) 02/29/20 07:24 Potassium 4.5 mmol/L (3.6-5.0) 02/29/20 07:24 Chloride 105.8 mmol/L (98-107) 02/29/20 07:24 Carbon Dioxide 20 mmol/L (22-30) L 02/29/20 07:24 Anion Gap 16 mmol/L 02/29/20 07:24 BUN 11 mg/dL (9-20) 02/29/20 07:24 Creatinine 0.7 mg/dL (0.8-1.5) L 02/29/20 07:24 Estimated GFR > 60 ml/min 02/29/20 07:24 BUN/Creatinine Ratio 16 % 02/29/20 07:24 Glucose 100 mg/dL (75-100) 02/29/20 07:24 POC Glucose 86 (70-105) 02/25/20 16:47 Calcium 8.4 mg/dL (8.4-10.2) 02/29/20 07:24 Phosphorus 3.80 mg/dL (2.5-4.5) D 02/26/20 09:18 Magnesium 1.80 mg/dL (1.7-2.3) 02/25/20 05:18 Total Bilirubin 0.40 mg/dL (0.1-1.2) 02/17/20 05:45 AST 10 units/L (5-40) 02/17/20 05:45 ALT 6 units/L (7-56) L 02/17/20 05:45 Alkaline Phosphatase 52 units/L (35-129) 02/17/20 05:45 Total Protein 7.0 g/dL (6.3-8.2) 02/17/20 05:45 Albumin 3.7 g/dL (3.9-5) L 02/17/20 05:45 Albumin/Globulin Ratio 1.1 % 02/17/20 05:45 Lipase 9 units/L (13-60) L 02/16/20 10:28 Urine Color Yellow (Yellow) 02/16/20 Unknown Urine Turbidity Clear (Clear) 02/16/20 Unknown Urine pH 7.0 (5.0-7.0) 02/16/20 Unknown Ur Specific [place] 1.023 (1.003-1.030) 02/16/20 Unknown Urine Protein <15 mg/dl mg/dL (Negative) 02/16/20 Unknown Urine Glucose (UA) Neg mg/dL (Negative) 02/16/20 Unknown Urine Ketones Neg mg/dL (Negative) 02/16/20 Unknown Urine Blood Neg (Negative) 02/16/20 Unknown Urine Nitrite Neg (Negative) 02/16/20 Unknown Urine Bilirubin Neg (Negative) 02/16/20 Unknown Urine Urobilinogen 4.0 mg/dL (<2.0) 02/16/20 Unknown Ur Leukocyte Esterase Tr (Negative) 02/16/20 Unknown Urine WBC (Auto) 7.0 /HPF (0.0-6.0) H 02/16/20 Unknown Urine RBC (Auto) 1.0 /HPF (0.0-6.0) 02/16/20 Unknown U Epithel Cells (Auto) < 1.0 /HPF (0-13.0) 02/16/20 Unknown Hyaline Casts 2 /LPF 02/16/20 Unknown Urine Mucus Few /HPF 02/16/20 Unknown Nasal Screen MRSA (PCR) Positive (Negative) 02/17/20 10:55 Coronavirus (PCR) Negative (Negative) 02/29/20 Unknown Blood Type A POSITIVE 02/22/20 10:12 Antibody Screen Negative 02/22/20 10:12 Microbiology: Microbiology 02/27/20 00:48 Peripheral/Venous Blood Culture - Preliminary Klebsiella Pneumoniae 02/27/20 00:48 Peripheral/Venous Blood Culture - Preliminary 02/29/20 02:37 Peripheral/Venous Blood Culture - Preliminary Culture in Progress 02/29/20 02:42 Peripheral/Venous Blood Culture - Preliminary Culture in Progress Mcpherson/IV: Voiding Method Incontinent IV Catheter Type [Left Hand] Peripheral IV IV Catheter Type [Right Hand] Peripheral IV IV Catheter Type [Left Forearm Peripheral IV ] IV Catheter Type [Right INT / Saline Lock Antecubital] Active Medications - Current Medications Current Medications: Generic Name Dose Route Start Last Admin Trade Name Freq PRN Reason Stop Dose Admin Acetaminophen 650 mg 02/17/20 02:52 02/29/20 05:25 Tylenol PO 650 mg Q4H PRN Administration Pain MILD(1-3)/Fever >100.5/BARRY Benztropine Mesylate 0.5 mg 02/17/20 22:00 02/29/20 11:46 Cogentin PO 0.5 mg BID STEPHEN Administration Bisacodyl 10 mg 02/19/20 10:00 02/29/20 17:09 Dulcolax NV 10 mg QDAY STEPHEN Administration Clonazepam 2 mg 02/19/20 22:00 02/29/20 11:45 Klonopin PO 2 mg BID STEPHEN Administration Dextrose 50 ml 02/18/20 18:35 D50w (25gm) Syringe IV Q30MIN PRN Hypoglycemia Protocol Divalproex Sodium 500 mg 02/27/20 22:00 02/29/20 11:46 Depakote Er PO 500 mg BID STEPHEN Administration Famotidine 20 mg 02/27/20 10:00 02/29/20 11:46 Pepcid PO 20 mg BID STEPHEN Administration Haloperidol Lactate 5 mg 02/26/20 10:04 02/28/20 23:46 Haldol IM 5 mg Q6H PRN Administration Agitation Heparin Sodium (Porcine) 5,000 unit 02/17/20 03:00 02/29/20 11:47 Heparin SUB-Q 5,000 unit Q12HR STEPHEN Administration Hydromorphone HCl 0.5 mg 02/16/20 21:50 02/27/20 11:21 Dilaudid IV 0.5 mg Q3H PRN Administration Pain , Severe (7-10) Hydrophilic Ointment 1 applic 02/28/20 08:51 02/28/20 11:36 Vaseline Lip Therapy TP 1 applic DIRECT PRN Administration Dry Lips Potassium Chloride/Dextrose/Sod Cl 20 meq in 1,000 mls @ 75 mls/hr 02/22/20 18:00 02/29/20 05:24 D5w/0.45% Nacl/Kcl 20 Meq IV 125 mls/hr DIRECT STEPHEN Administration Ceftriaxone Sodium 2 gm in 100 mls @ 200 mls/hr 02/27/20 17:00 02/29/20 11:45 Rocephin/Ns 2 Gm/100 Ml IV 200 mls/hr Q24HR STEPHEN Administration Metoclopramide HCl 10 mg 02/25/20 14:00 02/29/20 17:09 Reglan IV 10 mg Q8H STEPHEN Administration Mupirocin 1 applic 02/18/20 22:00 02/29/20 17:09 Bactroban 2% NS 1 applic BID STEPHEN Administration Ondansetron HCl 4 mg 02/17/20 02:52 02/22/20 22:13 Zofran IV 4 mg Q8H PRN Administration Nausea And Vomiting Phenol 1 spray 02/24/20 16:23 Chloraseptic MM PRN PRN Sore Throat Sodium Chloride 10 ml 02/17/20 10:00 02/29/20 11:48 Sodium Chloride Flush Syringe 10 Ml IV 10 ml BID SETPHEN Administration Sodium Chloride 10 ml 02/17/20 02:52 Sodium Chloride Flush Syringe 10 Ml IV PRN PRN LINE FLUSH Trazodone HCl 100 mg 02/17/20 22:00 02/28/20 22:23 Desyrel PO 100 mg HS STEPHEN Administration Nutrition/Malnutrition Assess - Dietary Evaluation Nutrition/Malnutrition Findings: Nutrition Notes Start: 02/25/20 14:42 Freq: Status: Active Protocol: Document 02/28/20 13:16 LM (Rec: 02/28/20 13:22 LM [id number]) Nutrition Notes Initial or Follow up Reassessment Current Diagnosis CKD(stage I-IV),Hypertension Other Pertinent Diagnosis SBO, s/p exp lap/lysis of adhesions, seizures, down syndrome Current Diet Cl liq Labs/Tests Reviewed Pertinent Medications D5W/NaCl/KCl at 75ml/hr Height 5 ft 10 in Weight 110 kg [place] Body Weight (kg) 75.45 BMI 34.7 Weight Status Obese Subjective/Other Information Unable to reach pt. Per MD reports pt is tolerating clears. Burn Absent Trauma Absent Current % PO Negligible Minimum of two criteria No Energy Intake (severe) < or equal to 50% Estimated Energy Requirement > or equal to 5 days #1 Nutrition Diagnosis Inadequate oral intake Diagnosis Progress(for reassessment Continues documentation) Is patient on ventilator? No Is Patient Ambulatory and/or Out of Bed Yes REE-([place]-St. Jeor-ambulatory/OOB) [ 2744.625 NUTR.[id number]] Kcal/Kg value to use for calculation 20 Approximate Energy Requirements Using 2200 kcal/Kg Calculation Used for Recommendations Kcal/kg Additional Notes Protein: 74-93g (0.8-1g/kg using AdjBW 93kg) Fluid: 1 ml/kcal Nutrition Intervention Change Diet Order: diet advancement when medically feasible Add Supplement/Snack (indicate name/kcal Ensure clear TID /protein ) Provides kCal: 720 Provides Protein (gm) 24 Goal #1 diet tolerance/advancement Follow-Up By: 03/04/20 Additional Comments F/U for diet tolerance/ advancement
[2020-02-29] MEDS: traZODone 100 MG TAB PO SCH (22:34)
[2020-03-01] MEDS: D5W/0.45% NACL/KCL 20 MEQ 20 MEQ/1,000 ML BAG IV SCH ×3 (03:55→17:20)
[2020-03-01] MEDS: METOCLOPRAMIDE 10 MG/2 ML INJ IV SCH ×3 (05:39→22:29)
[2020-03-01] MEDS: BENZTROPINE 0.5 MG TAB PO SCH ×2 (10:05→22:53)
[2020-03-01] MEDS: DIVALPROEX ER 500 MG TAB PO SCH ×2 (10:06→22:54)
[2020-03-01] MEDS: FAMOTIDINE 20 MG TAB PO SCH ×2 (10:06→22:54)
[2020-03-01] MEDS: cefTRIAXone/NS 2 GM/100 ML 2 GM/100 ML BAG IV SCH (10:06)
[2020-03-01] MEDS: HEPARIN 5,000 UNIT/1 ML VIAL SUB-Q SCH ×2 (10:07→22:54)
[2020-03-01] MEDS: MUPIROCIN 2% OINT 22 GM NS SCH (10:09)
--- NOTE | 2020-03-01 11:59 | Progress Note ---
Assessment and Plan - Patient Problems (1) Congestive heart failure (CHF) Current Visit: Yes Status: Acute Plan to address problem: Patient with congestive heart failure ejection fraction 20 to 25%. Currently hemodynamically stable. No JVD trace edema no crackles. Continue medical management. Patient on diuretics but not on ARLIN inhibitor or beta-cesar because of recent surgery. Patient now tolerating meals well. Blood pressure still on the low side. We will continue to hold antihypertensives. Coreg and ARLIN inhibitor. Clinical exam patient heart failure appears to be well compensated. (2) Small bowel obstruction Current Visit: Yes Status: Acute Plan to address problem: Patient small bowel obstruction status post surgical correction and lysis of adhesions. Spoke to surgical consult in detail. Plan was explained in detail. Agree with plan. Patient lives in personal detention. Once patient more stable for discharge which I can anticipate on Tuesday will attempt to make sure patient has a place for stable environment. May be a candidate for skilled nurse facility the personal detention most likely cannot meet patient's needs. Patient had a recent stay at [facility] facility [facility]. Mother would want patient to go back to that facility prior to detention. (3) Bacteremia due to Gram-negative bacteria Current Visit: Yes Status: Acute Plan to address problem: Blood cultures negative treated with Rocephin. Blood culture gram-negative rods. Covered with Rocephin. Still has low-grade fever follow-up chest x-ray. (4) Hyponatremia Current Visit: Yes Status: Acute (5) Small bowel obstruction due to adhesions Current Visit: Yes Status: Acute Plan to address problem: Secondary to adhesions exploratory lap with lysis of adhesions. Patient hemodynamically stable has bowel sounds this post bowel movement. Discussed with surgery about transfer home. (6) COLUMBA (acute kidney injury) Current Visit: No Status: Acute Plan to address problem: Prerenal azotemia has resolved. (7) Acute respiratory failure Current Visit: No Status: Resolved Qualifiers: Respiratory failure complication: hypoxia Qualified Code(s): J96.01 - Acute respiratory failure with hypoxia History Interval history: 19-year-old male history of Down syndrome schizophrenia bipolar disorder multiple abdominal surgeries. Presented this admission with small bowel obstruction underwent exploratory laparotomy and is currently doing much better. Patient had a bowel movement is passing gas.. Patient also has bowel sounds. Postop day 7. Patient is eating. Patient hospital course complicated by fever of 101. Blood cultures showed Klebsiella pansensitive spoke about case with surgical services Dr. Tilley his plan was explained in detail Hospitalist Physical - Constitutional Vitals: Temp Pulse Resp BP Pulse Ox 98.5 F 83 20 108/56 98 03/01/20 07:23 03/01/20 07:23 03/01/20 07:23 03/01/20 07:23 03/01/20 07:23 General appearance: Present: no acute distress, well-nourished - EENT Eyes: Present: PERRL, EOM intact ENT: hearing intact, clear oral mucosa, poor dentition, no thrush, no ulcerations - Neck Neck: Present: supple, normal ROM - Respiratory Respiratory effort: normal Respiratory: bilateral: rhonchi - Cardiovascular Rhythm: regular - Extremities Extremity abnormal: edema Peripheral Pulses: within normal limits - Abdominal General gastrointestinal: soft, hypoactive bowel sounds, other (Surgical bandage chaparro no dehiscence), no hepatomegaly, no splenomegaly - Psychiatric Psychiatric: other (Down syndrome, schizophrenia problem) Results - Labs CBC & Chem 7: 02/29/20 09:09 02/29/20 07:24 Labs: Laboratory Last Values WBC 10.3 K/mm3 (4.5-11.0) 02/29/20 09:09 RBC 3.24 M/mm3 (3.65-5.03) L 02/29/20 09:09 Hgb 9.7 gm/dl (11.8-15.2) L 02/29/20 09:09 Hct 29.2 % (35.5-45.6) L 02/29/20 09:09 MCV 90 fl (84-94) 02/29/20 09:09 MCH 30 pg (28-32) 02/29/20 09:09 MCHC 33 % (32-34) 02/29/20 09:09 RDW 15.4 % (13.2-15.2) H 02/29/20 09:09 Plt Count 161 K/mm3 (140-440) 02/29/20 09:09 Lymph % (Auto) Cable Supervisor 02/29/20 09:09 [place] % (Auto) Cable Supervisor 02/29/20 09:09 Eos % (Auto) Cable Supervisor 02/29/20 09:09 Baso % (Auto) Cable Supervisor 02/29/20 09:09 Lymph # Cable Supervisor 02/29/20 09:09 [place] # Cable Supervisor 02/29/20 09:09 Eos # Cable Supervisor 02/29/20 09:09 Baso # Cable Supervisor 02/29/20 09:09 Add Manual Diff Complete 02/29/20 09:09 Total Counted 100 02/22/20 05:09 Seg Neutrophils % Cable Supervisor 02/29/20 09:09 Seg Neuts % (Manual) 64.0 % (40.0-70.0) 02/22/20 05:09 Band Neutrophils % 10.0 % 02/22/20 05:09 Lymphocytes % (Manual) 13.0 % (13.4-35.0) L 02/22/20 05:09 Reactive Lymphs % (Man) 0 % 02/22/20 05:09 Monocytes % (Manual) 11.0 % (0.0-7.3) H 02/22/20 05:09 Eosinophils % (Manual) 0 % (0.0-4.3) 02/22/20 05:09 Basophils % (Manual) 2.0 % (0.0-1.8) H 02/22/20 05:09 Metamyelocytes % 0 % 02/22/20 05:09 Myelocytes % 0 % 02/22/20 05:09 Promyelocytes % 0 % 02/22/20 05:09 Blast Cells % 0 % 02/22/20 05:09 Nucleated RBC % Not Reportable 02/22/20 05:09 Seg Neutrophils # Cable Supervisor 02/29/20 09:09 Seg Neutrophils # Man 4.5 K/mm3 (1.8-7.7) 02/22/20 05:09 Band Neutrophils # 0.7 K/mm3 02/22/20 05:09 Lymphocytes # (Manual) 0.9 K/mm3 (1.2-5.4) L 02/22/20 05:09 Abs React Lymphs (Man) 0.0 K/mm3 02/22/20 05:09 Monocytes # (Manual) 0.8 K/mm3 (0.0-0.8) 02/22/20 05:09 Eosinophils # (Manual) 0.0 K/mm3 (0.0-0.4) 02/22/20 05:09 Basophils # (Manual) 0.1 K/mm3 (0.0-0.1) 02/22/20 05:09 Metamyelocytes # 0.0 K/mm3 02/22/20 05:09 Myelocytes # 0.0 K/mm3 02/22/20 05:09 Promyelocytes # 0.0 K/mm3 02/22/20 05:09 Blast Cells # 0.0 K/mm3 02/22/20 05:09 WBC Morphology Not Reportable 02/22/20 05:09 Hypersegmented Neuts Not Reportable 02/22/20 05:09 Hyposegmented Neuts Not Reportable 02/22/20 05:09 Hypogranular Neuts Not Reportable 02/22/20 05:09 Smudge Cells Not Reportable 02/22/20 05:09 Toxic Granulation Not Reportable 02/22/20 05:09 Toxic Vacuolation Not Reportable 02/22/20 05:09 Dohle Bodies Not Reportable 02/22/20 05:09 Pelger-Huet Anomaly Not Reportable 02/22/20 05:09 Alea Rods Not Reportable 02/22/20 05:09 Platelet Estimate Consistent w auto 02/22/20 05:09 Clumped Platelets Not Reportable 02/22/20 05:09 Plt Clumps, EDTA Not Reportable 02/22/20 05:09 Large Platelets Not Reportable 02/22/20 05:09 Giant Platelets Not Reportable 02/22/20 05:09 Platelet Satelliting Not Reportable 02/22/20 05:09 Plt Morphology Comment Not Reportable 02/22/20 05:09 RBC Morphology Not Reportable 02/22/20 05:09 Dimorphic RBCs Not Reportable 02/22/20 05:09 Polychromasia Not Reportable 02/22/20 05:09 Hypochromasia Not Reportable 02/22/20 05:09 Poikilocytosis Not Reportable 02/22/20 05:09 Anisocytosis Rare 02/22/20 05:09 Microcytosis Not Reportable 02/22/20 05:09 Macrocytosis Not Reportable 02/22/20 05:09 Spherocytes Not Reportable 02/22/20 05:09 Pappenheimer Bodies Not Reportable 02/22/20 05:09 Sickle Cells Not Reportable 02/22/20 05:09 Target Cells Not Reportable 02/22/20 05:09 Tear Drop Cells Not Reportable 02/22/20 05:09 Ovalocytes Not Reportable 02/22/20 05:09 Helmet Cells Not Reportable 02/22/20 05:09 [place] Bodies Not Reportable 02/22/20 05:09 [place] Rings Not Reportable 02/22/20 05:09 [place] Cells Not Reportable 02/22/20 05:09 Bite Cells Not Reportable 02/22/20 05:09 Crenated Cell Not Reportable 02/22/20 05:09 Elliptocytes Rare 02/22/20 05:09 Acanthocytes (Spur) Not Reportable 02/22/20 05:09 Rouleaux Not Reportable 02/22/20 05:09 Hemoglobin C Crystals Not Reportable 02/22/20 05:09 Schistocytes Not Reportable 02/22/20 05:09 Malaria parasites Not Reportable 02/22/20 05:09 Emanuel Bodies Not Reportable 02/22/20 05:09 Hem Pathologist Commnt No 02/22/20 05:09 Sodium 137 mmol/L (137-145) 02/29/20 07:24 Potassium 4.5 mmol/L (3.6-5.0) 02/29/20 07:24 Chloride 105.8 mmol/L (98-107) 02/29/20 07:24 Carbon Dioxide 20 mmol/L (22-30) L 02/29/20 07:24 Anion Gap 16 mmol/L 02/29/20 07:24 BUN 11 mg/dL (9-20) 02/29/20 07:24 Creatinine 0.7 mg/dL (0.8-1.5) L 02/29/20 07:24 Estimated GFR > 60 ml/min 02/29/20 07:24 BUN/Creatinine Ratio 16 % 02/29/20 07:24 Glucose 100 mg/dL (75-100) 02/29/20 07:24 POC Glucose 86 (70-105) 02/25/20 16:47 Calcium 8.4 mg/dL (8.4-10.2) 02/29/20 07:24 Phosphorus 3.80 mg/dL (2.5-4.5) D 02/26/20 09:18 Magnesium 1.80 mg/dL (1.7-2.3) 02/25/20 05:18 Total Bilirubin 0.40 mg/dL (0.1-1.2) 02/17/20 05:45 AST 10 units/L (5-40) 02/17/20 05:45 ALT 6 units/L (7-56) L 02/17/20 05:45 Alkaline Phosphatase 52 units/L (35-129) 02/17/20 05:45 Total Protein 7.0 g/dL (6.3-8.2) 02/17/20 05:45 Albumin 3.7 g/dL (3.9-5) L 02/17/20 05:45 Albumin/Globulin Ratio 1.1 % 02/17/20 05:45 Lipase 9 units/L (13-60) L 02/16/20 10:28 Urine Color Yellow (Yellow) 02/16/20 Unknown Urine Turbidity Clear (Clear) 02/16/20 Unknown Urine pH 7.0 (5.0-7.0) 02/16/20 Unknown Ur Specific [place] 1.023 (1.003-1.030) 02/16/20 Unknown Urine Protein <15 mg/dl mg/dL (Negative) 02/16/20 Unknown Urine Glucose (UA) Neg mg/dL (Negative) 02/16/20 Unknown Urine Ketones Neg mg/dL (Negative) 02/16/20 Unknown Urine Blood Neg (Negative) 02/16/20 Unknown Urine Nitrite Neg (Negative) 02/16/20 Unknown Urine Bilirubin Neg (Negative) 02/16/20 Unknown Urine Urobilinogen 4.0 mg/dL (<2.0) 02/16/20 Unknown Ur Leukocyte Esterase Tr (Negative) 02/16/20 Unknown Urine WBC (Auto) 7.0 /HPF (0.0-6.0) H 02/16/20 Unknown Urine RBC (Auto) 1.0 /HPF (0.0-6.0) 02/16/20 Unknown U Epithel Cells (Auto) < 1.0 /HPF (0-13.0) 02/16/20 Unknown Hyaline Casts 2 /LPF 02/16/20 Unknown Urine Mucus Few /HPF 02/16/20 Unknown Nasal Screen MRSA (PCR) Positive (Negative) 02/17/20 10:55 Coronavirus (PCR) Negative (Negative) 02/29/20 Unknown Blood Type A POSITIVE 02/22/20 10:12 Antibody Screen Negative 02/22/20 10:12 Microbiology: Microbiology 02/27/20 00:48 Peripheral/Venous Blood Culture - Preliminary Klebsiella Pneumoniae 02/27/20 00:48 Peripheral/Venous Blood Culture - Preliminary Klebsiella Pneumoniae 02/29/20 02:37 Peripheral/Venous Blood Culture - Preliminary NO GROWTH AFTER 24 HOURS 02/29/20 02:42 Peripheral/Venous Blood Culture - Preliminary NO GROWTH AFTER 24 HOURS - Diagnostic Impressions Diagnostic Impressions: Echocardiogram 02/28/20 15:43 Transthoracic Echocardiogram Indication: Tachycardia BP: 100/52 HR: 92 Conclusions *Global left ventricular wall motion and contractility are within normal limits. *Global left ventricular systolic function is normal. *The estimated ejection fraction is 50-55%. *Abnormal left ventricular diastolic filling is observed, consistent with impaired relaxation. *There is no pericardial effusion. Findings Left Ventricle: The left ventricular chamber size is normal. Global left ventricular wall motion and contractility are within normal limits. Global left ventricular systolic function is normal. The estimated ejection fraction is 50-55%. Abnormal left ventricular diastolic filling is observed, consistent with impaired relaxation. Left Atrium: The left atrial chamber size is normal. Right Ventricle: The right ventricular cavity size is normal. Right Atrium: The right atrial cavity size is normal. Aortic Valve: The aortic valve structure is normal. There is no evidence of aortic regurgitation. Mitral Valve: The mitral valve leaflets are mildly thickened. There is no evidence of mitral regurgitation. Tricuspid Valve: The tricuspid valve leaflets are normal. There is trace tricuspid regurgitation. The right ventricular systolic pressure is calculated at 20 mmHg. Pulmonic Valve: The pulmonic valve appears normal. There is trace pulmonic regurgitation. Pericardium: There is no pericardial effusion. Aorta: The aorta appears normal. Venous: The venous system is not well visualized. Measurements Chambers 2D Name Value Normal Range IVSd (2D) 0.93 cm (0.6 - 1.1) LVPWd (2D) 0.99 cm (0.6 - 1.1) LVIDd (2D) 4.54 cm (3.7 - 5.6) LVIDs (2D) 3.56 cm (2 - 3.8) LV FS (2D) 21.58 % - EF Teichholz (2D) 43.84 % - Ao root diameter (2D) 3.26 cm (2 - 3.7) Volumes/Mass Name Value Normal Range LA ESV SP 4CH (A/L) 42.96 ml - LA ESV SP 2CH (A/L) 23.92 ml - LA ESV BP (A/L) 35.47 ml - LA ESV BP (A/L) index 15.7 ml/m2 - LA ESV SP 4CH (MOD) 39.1 ml - LA ESV SP 2CH (MOD) 23.01 ml - LA ESV BP (MOD) 33.07 ml - LA ESV BP (MOD) index 14.63 ml/m2 - Diastolic/Systolic Function Name Value Normal Range MV E-wave Vmax 1 m/sec - MV deceleration time 202.11 msec - MV A-wave Vmax 0.54 m/sec - MV E:A ratio 1.85 ratio - Aortic Valve Name Value Normal Range AV Vmax 1.26 m/sec - AV VTI 20.3 cm - AV peak gradient 6.35 mmHg - AV mean gradient 3.07 mmHg - LVOT diameter 2.04 cm - LVOT Vmax 1.14 m/sec - LVOT VTI 22.15 cm - LVOT peak gradient 5.17 mmHg - LVOT mean gradient 3 mmHg - SV LVOT 72.2 ml - YENIFER (continuity Vmax) 2.94 cm2 - YENIFER (continuity VTI) 3.56 cm2 - Tricuspid Valve Name Value Normal Range TR Vmax 2.05 m/sec - TR peak gradient 17 mmHg - RAP 3 mmHg - RVSP 20 mmHg - Pulmonic Valve/Qp:Qs Name Value Normal Range PV Vmax 1.27 m/sec - PV peak gradient 6.46 mmHg - MO end-diastolic Vmax 1.44 m/sec - PV acceleration time 129.4 msec - Mcpherson/IV: Voiding Method Condom Catheter IV Catheter Type [Left Hand] Peripheral IV IV Catheter Type [Right Hand] Peripheral IV IV Catheter Type [Left Forearm Peripheral IV ] IV Catheter Type [Right INT / Saline Lock Antecubital] Active Medications - Current Medications Current Medications: Generic Name Dose Route Start Last Admin Trade Name Freq PRN Reason Stop Dose Admin Acetaminophen 650 mg 02/17/20 02:52 02/29/20 05:25 Tylenol PO 650 mg Q4H PRN Administration Pain MILD(1-3)/Fever >100.5/BARRY Benztropine Mesylate 0.5 mg 02/17/20 22:00 05/23/20 10:05 Cogentin PO 0.5 mg BID STEPHEN Administration Bisacodyl 10 mg 02/19/20 10:00 03/01/20 10:06 Dulcolax MO 10 mg QDAY STEPHEN Administration Clonazepam 2 mg 02/19/20 22:00 03/01/20 10:06 Klonopin PO 2 mg BID STEPHEN Administration Dextrose 50 ml 02/18/20 18:35 D50w (25gm) Syringe IV Q30MIN PRN Hypoglycemia Protocol Divalproex Sodium 500 mg 02/27/20 22:00 03/01/20 10:06 Depakote Er PO 500 mg BID STEPHEN Administration Famotidine 20 mg 02/27/20 10:00 03/01/20 10:06 Pepcid PO 20 mg BID STEPHEN Administration Haloperidol Lactate 5 mg 02/26/20 10:04 02/28/20 23:46 Haldol IM 5 mg Q6H PRN Administration Agitation Heparin Sodium (Porcine) 5,000 unit 02/17/20 03:00 03/01/20 10:07 Heparin SUB-Q 5,000 unit Q12HR STEPHEN Administration Hydromorphone HCl 0.5 mg 02/16/20 21:50 02/27/20 11:21 Dilaudid IV 0.5 mg Q3H PRN Administration Pain , Severe (7-10) Hydrophilic Ointment 1 applic 02/28/20 08:51 02/28/20 11:36 Vaseline Lip Therapy TP 1 applic DIRECT PRN Administration Dry Lips Potassium Chloride/Dextrose/Sod Cl 20 meq in 1,000 mls @ 75 mls/hr 02/22/20 18:00 03/01/20 10:21 D5w/0.45% Nacl/Kcl 20 Meq IV 125 mls/hr DIRECT STEPHEN Administration Ceftriaxone Sodium 2 gm in 100 mls @ 200 mls/hr 02/27/20 17:00 03/01/20 10:06 Rocephin/Ns 2 Gm/100 Ml IV 200 mls/hr Q24HR STEPHEN Administration Metoclopramide HCl 10 mg 02/25/20 14:00 03/01/20 05:39 Reglan IV 10 mg Q8H STEPHEN Administration Mupirocin 1 applic 02/18/20 22:00 03/01/20 10:09 Bactroban 2% NS 1 applic BID STPEHEN Administration Ondansetron HCl 4 mg 02/17/20 02:52 02/22/20 22:13 Zofran IV 4 mg Q8H PRN Administration Nausea And Vomiting Phenol 1 spray 02/24/20 16:23 Chloraseptic MM PRN PRN Sore Throat Sodium Chloride 10 ml 02/17/20 10:00 03/01/20 10:07 Sodium Chloride Flush Syringe 10 Ml IV 10 ml BID STEPHEN Administration Sodium Chloride 10 ml 02/17/20 02:52 Sodium Chloride Flush Syringe 10 Ml IV PRN PRN LINE FLUSH Trazodone HCl 100 mg 02/17/20 22:00 02/29/20 22:34 Desyrel PO 100 mg HS STEPHEN Administration Nutrition/Malnutrition Assess - Dietary Evaluation Nutrition/Malnutrition Findings: Nutrition Notes Start: 02/25/20 14:42 Freq: Status: Active Protocol: Document 02/28/20 13:16 LM (Rec: 02/28/20 13:22 LM [id number]) Nutrition Notes Initial or Follow up Reassessment Current Diagnosis CKD(stage I-IV),Hypertension Other Pertinent Diagnosis SBO, s/p exp lap/lysis of adhesions, seizures, down syndrome Current Diet Cl liq Labs/Tests Reviewed Pertinent Medications D5W/NaCl/KCl at 75ml/hr Height 5 ft 10 in Weight 110 kg [place] Body Weight (kg) 75.45 BMI 34.7 Weight Status Obese Subjective/Other Information Unable to reach pt. Per MD reports pt is tolerating clears. Burn Absent Trauma Absent Current % PO Negligible Minimum of two criteria No Energy Intake (severe) < or equal to 50% Estimated Energy Requirement > or equal to 5 days #1 Nutrition Diagnosis Inadequate oral intake Diagnosis Progress(for reassessment Continues documentation) Is patient on ventilator? No Is Patient Ambulatory and/or Out of Bed Yes REE-(Worth-St. Jeor-ambulatory/OOB) [ 8958.625 NUTR.[id number]] Kcal/Kg value to use for calculation 20 Approximate Energy Requirements Using 2200 kcal/Kg Calculation Used for Recommendations Kcal/kg Additional Notes Protein: 74-93g (0.8-1g/kg using AdjBW 93kg) Fluid: 1 ml/kcal Nutrition Intervention Change Diet Order: diet advancement when medically feasible Add Supplement/Snack (indicate name/kcal Ensure clear TID /protein ) Provides kCal: 720 Provides Protein (gm) 24 Goal #1 diet tolerance/advancement Follow-Up By: 03/04/20 Additional Comments F/U for diet tolerance/ advancement
--- NOTE | 2020-03-01 12:53 | XRay Report ---
CHEST 1 VIEW INDICATION / CLINICAL INFORMATION: sob. COMPARISON: 02/28/2020 FINDINGS: SUPPORT DEVICES: None. HEART / MEDIASTINUM: No significant abnormality. LUNGS / PLEURA: Questionable left retrocardiac opacity No pneumothorax. ADDITIONAL FINDINGS: No significant additional findings. IMPRESSION: Suboptimal inspiration. There is a questionable left retrocardiac opacity present although this is no t a definite finding. Signer Name: Mulugeta Taylor MD FACR Signed: 03/01/2020 12:49 PM Workstation Name: [id number]
--- NOTE | 2020-03-01 13:46 | Progress Note ---
Assessment and Plan - Patient Problems (1) Small bowel obstruction Current Visit: Yes Status: Acute Plan to address problem: Pt stable. s/p ex lap and ЕЛЕНА (02/23/20) - POD#7. Patient appears back to baseline. He appears comfortable this morning. Appears to have done very well with the full liquid diet. Abdomen remains soft. He has very good bowel sounds. There is still nothing obvious to suggest a problem in the abdomen. Recommend: 1. Stay on full liquid diet until having regular bowel movements. Ok to discharge on full liquid diet 2. Encourage pulmonary toilet 3. If patient discharged this weekend, will arrange for short term follow up in the clinic. Please call with questions. Subjective Date of service: 03/01/20 Patient Reports: Positive: no new complaints, tolerating liquids well (nurse reports that he finished the entire tray of full liquids). Negative: nausea, vomiting Objective Vital Signs - 12hr 03/01/20 03/01/20 03/01/20 02:00 02:07 03:00 Temperature 100.1 F H Pulse Rate 96 H 102 H Respiratory 20 Rate Blood Pressure Blood Pressure 129/79 [Left] O2 Sat by Pulse 96 96 Oximetry 03/01/20 03/01/20 03/01/20 04:47 07:23 12:37 Temperature 99.7 F H 98.5 F 99.7 F H Pulse Rate 84 83 90 Respiratory 20 20 20 Rate Blood Pressure 108/56 109/55 Blood Pressure 104/51 [Left] O2 Sat by Pulse 94 98 92 Oximetry - General physical appearance no distress, no pain, obese - Respiratory normal expansion, normal respiratory effort - Abdomen soft, not tender, bowel sounds normal, not distended, not guarding, not rigid - Labs 02/29/20 09:09 02/29/20 07:24
[2020-03-01] MEDS: traZODone 100 MG TAB PO SCH (22:54)
--- NOTE | 2020-03-02 07:51 | Progress Note ---
Assessment and Plan - Patient Problems (1) Congestive heart failure (CHF) Current Visit: Yes Status: Acute Plan to address problem: Patient with congestive heart failure ejection fraction 20 to 25%. Currently hemodynamically stable. No JVD trace edema no crackles. Continue medical management. Patient on diuretics but not on ARLIN inhibitor or beta-cesar because of recent surgery. Patient now tolerating meals well. Blood pressure still on the low side. We will continue to hold antihypertensives. Coreg and ARLIN inhibitor. Follow-up chest x-ray unremarkable for volume overload or pulmonary edema. Clinical exam patient heart failure appears to be well compensated. (2) Small bowel obstruction Current Visit: Yes Status: Acute Plan to address problem: Patient small bowel obstruction status post surgical correction and lysis of adhesions. Patient wound looks well. Spoke to surgical consult in detail. Plan was explained in detail. Agree with plan. Patient lives in personal alf. Once patient more stable for discharge which I can anticipate on Tuesday will attempt to make sure patient has a place for stable environment. May be a candidate for skilled nurse facility the personal alf most likely cannot meet patient's needs. Patient had a recent stay at jail facility inside [facility]. Mother would want patient to go back to that facility prior to alf. (3) Bacteremia due to Gram-negative bacteria Current Visit: Yes Status: Acute Plan to address problem: Blood cultures Klebsiella sensitive to Rocephin. Blood culture gram-negative rods. Covered with Rocephin. Still has low-grade fever (4) Hyponatremia Current Visit: Yes Status: Acute (5) Small bowel obstruction due to adhesions Current Visit: Yes Status: Acute Plan to address problem: Secondary to adhesions exploratory lap with lysis of adhesions. Patient hemodynamically stable has bowel sounds this post bowel movement. Discussed with surgery about transfer home. (6) COLUMBA (acute kidney injury) Current Visit: No Status: Acute Plan to address problem: Prerenal azotemia has resolved. (7) Acute respiratory failure Current Visit: No Status: Resolved Qualifiers: Respiratory failure complication: hypoxia Qualified Code(s): J96.01 - Acute respiratory failure with hypoxia Plan to address problem: Secondary to pulmonary edema patient was on high flow O2 has been weaned down to nasal cannula today much better. Patient tolerating de-escalation of oxygen well. History Interval history: Patient resting comfortably overnight. No new events reported to me. Discussion with mother as documented yesterday. Family unable to care for patients postsurgical needs. Patient has state at jail facility at [place]. With previous surgeries would like to return there prior to going home. Plan discharge on Tuesday. Hospitalist Physical - Constitutional Vitals: Temp Pulse Resp BP Pulse Ox 98.0 F 73 20 115/62 97 03/02/20 07:20 03/02/20 07:20 03/02/20 07:20 03/02/20 07:20 03/02/20 07:20 General appearance: Present: no acute distress, well-nourished - EENT Eyes: Present: PERRL ENT: clear oral mucosa, no oropharyngeal erythema - Neck Neck: Present: supple, normal ROM - Respiratory Respiratory effort: normal Respiratory: bilateral: CTA - Cardiovascular Rhythm: regular - Extremities Extremities: no ischemia, pulses intact, pulses symmetrical Extremity abnormal: edema, other (Trace edema) Peripheral Pulses: within normal limits - Abdominal General gastrointestinal: soft, other ([place] intact no drainage), no hepatomegaly, no splenomegaly - Integumentary Integumentary: Present: clear, warm - Psychiatric Psychiatric: other (Poor insight into disease. Down syndrome.) - Neurologic Neurologic: moves all extremities Results - Labs CBC & Chem 7: 02/29/20 09:09 02/29/20 07:24 Labs: Laboratory Last Values WBC 10.3 K/mm3 (4.5-11.0) 02/29/20 09:09 RBC 3.24 M/mm3 (3.65-5.03) L 02/29/20 09:09 Hgb 9.7 gm/dl (11.8-15.2) L 02/29/20 09:09 Hct 29.2 % (35.5-45.6) L 02/29/20 09:09 MCV 90 fl (84-94) 02/29/20 09:09 MCH 30 pg (28-32) 02/29/20 09:09 MCHC 33 % (32-34) 02/29/20 09:09 RDW 15.4 % (13.2-15.2) H 02/29/20 09:09 Plt Count 161 K/mm3 (140-440) 02/29/20 09:09 Lymph % (Auto) Fishery Biologist 02/29/20 09:09 Dent % (Auto) Fishery Biologist 02/29/20 09:09 Eos % (Auto) Fishery Biologist 02/29/20 09:09 Baso % (Auto) Fishery Biologist 02/29/20 09:09 Lymph # Fishery Biologist 02/29/20 09:09 Dent # Fishery Biologist 02/29/20 09:09 Eos # Fishery Biologist 02/29/20 09:09 Baso # Fishery Biologist 02/29/20 09:09 Add Manual Diff Complete 02/29/20 09:09 Total Counted 100 02/22/20 05:09 Seg Neutrophils % Fishery Biologist 02/29/20 09:09 Seg Neuts % (Manual) 64.0 % (40.0-70.0) 02/22/20 05:09 Band Neutrophils % 10.0 % 02/22/20 05:09 Lymphocytes % (Manual) 13.0 % (13.4-35.0) L 02/22/20 05:09 Reactive Lymphs % (Man) 0 % 02/22/20 05:09 Monocytes % (Manual) 11.0 % (0.0-7.3) H 02/22/20 05:09 Eosinophils % (Manual) 0 % (0.0-4.3) 02/22/20 05:09 Basophils % (Manual) 2.0 % (0.0-1.8) H 02/22/20 05:09 Metamyelocytes % 0 % 02/22/20 05:09 Myelocytes % 0 % 02/22/20 05:09 Promyelocytes % 0 % 02/22/20 05:09 Blast Cells % 0 % 02/22/20 05:09 Nucleated RBC % Not Reportable 02/22/20 05:09 Seg Neutrophils # Fishery Biologist 02/29/20 09:09 Seg Neutrophils # Man 4.5 K/mm3 (1.8-7.7) 02/22/20 05:09 Band Neutrophils # 0.7 K/mm3 02/22/20 05:09 Lymphocytes # (Manual) 0.9 K/mm3 (1.2-5.4) L 02/22/20 05:09 Abs React Lymphs (Man) 0.0 K/mm3 02/22/20 05:09 Monocytes # (Manual) 0.8 K/mm3 (0.0-0.8) 02/22/20 05:09 Eosinophils # (Manual) 0.0 K/mm3 (0.0-0.4) 02/22/20 05:09 Basophils # (Manual) 0.1 K/mm3 (0.0-0.1) 02/22/20 05:09 Metamyelocytes # 0.0 K/mm3 02/22/20 05:09 Myelocytes # 0.0 K/mm3 02/22/20 05:09 Promyelocytes # 0.0 K/mm3 02/22/20 05:09 Blast Cells # 0.0 K/mm3 02/22/20 05:09 WBC Morphology Not Reportable 02/22/20 05:09 Hypersegmented Neuts Not Reportable 02/22/20 05:09 Hyposegmented Neuts Not Reportable 02/22/20 05:09 Hypogranular Neuts Not Reportable 02/22/20 05:09 Smudge Cells Not Reportable 02/22/20 05:09 Toxic Granulation Not Reportable 02/22/20 05:09 Toxic Vacuolation Not Reportable 02/22/20 05:09 Dohle Bodies Not Reportable 02/22/20 05:09 Pelger-Huet Anomaly Not Reportable 02/22/20 05:09 Alea Rods Not Reportable 02/22/20 05:09 Platelet Estimate Consistent w auto 02/22/20 05:09 Clumped Platelets Not Reportable 02/22/20 05:09 Plt Clumps, EDTA Not Reportable 02/22/20 05:09 Large Platelets Not Reportable 02/22/20 05:09 Giant Platelets Not Reportable 02/22/20 05:09 Platelet Satelliting Not Reportable 02/22/20 05:09 Plt Morphology Comment Not Reportable 02/22/20 05:09 RBC Morphology Not Reportable 02/22/20 05:09 Dimorphic RBCs Not Reportable 02/22/20 05:09 Polychromasia Not Reportable 02/22/20 05:09 Hypochromasia Not Reportable 02/22/20 05:09 Poikilocytosis Not Reportable 02/22/20 05:09 Anisocytosis Rare 02/22/20 05:09 Microcytosis Not Reportable 02/22/20 05:09 Macrocytosis Not Reportable 02/22/20 05:09 Spherocytes Not Reportable 02/22/20 05:09 Pappenheimer Bodies Not Reportable 02/22/20 05:09 Sickle Cells Not Reportable 02/22/20 05:09 Target Cells Not Reportable 02/22/20 05:09 Tear Drop Cells Not Reportable 02/22/20 05:09 Ovalocytes Not Reportable 02/22/20 05:09 Helmet Cells Not Reportable 02/22/20 05:09 [place] Bodies Not Reportable 02/22/20 05:09 [place] Rings Not Reportable 02/22/20 05:09 Kaylyn Cells Not Reportable 02/22/20 05:09 Bite Cells Not Reportable 02/22/20 05:09 Crenated Cell Not Reportable 02/22/20 05:09 Elliptocytes Rare 02/22/20 05:09 Acanthocytes (Spur) Not Reportable 02/22/20 05:09 Rouleaux Not Reportable 02/22/20 05:09 Hemoglobin C Crystals Not Reportable 02/22/20 05:09 Schistocytes Not Reportable 02/22/20 05:09 Malaria parasites Not Reportable 02/22/20 05:09 Emanuel Bodies Not Reportable 02/22/20 05:09 Hem Pathologist Commnt No 02/22/20 05:09 Sodium 137 mmol/L (137-145) 02/29/20 07:24 Potassium 4.5 mmol/L (3.6-5.0) 02/29/20 07:24 Chloride 105.8 mmol/L (98-107) 02/29/20 07:24 Carbon Dioxide 20 mmol/L (22-30) L 02/29/20 07:24 Anion Gap 16 mmol/L 02/29/20 07:24 BUN 11 mg/dL (9-20) 02/29/20 07:24 Creatinine 0.7 mg/dL (0.8-1.5) L 02/29/20 07:24 Estimated GFR > 60 ml/min 02/29/20 07:24 BUN/Creatinine Ratio 16 % 02/29/20 07:24 Glucose 100 mg/dL (75-100) 02/29/20 07:24 POC Glucose 86 (70-105) 02/25/20 16:47 Calcium 8.4 mg/dL (8.4-10.2) 02/29/20 07:24 Phosphorus 3.80 mg/dL (2.5-4.5) D 02/26/20 09:18 Magnesium 1.80 mg/dL (1.7-2.3) 02/25/20 05:18 Total Bilirubin 0.40 mg/dL (0.1-1.2) 02/17/20 05:45 AST 10 units/L (5-40) 02/17/20 05:45 ALT 6 units/L (7-56) L 02/17/20 05:45 Alkaline Phosphatase 52 units/L (35-129) 02/17/20 05:45 Total Protein 7.0 g/dL (6.3-8.2) 02/17/20 05:45 Albumin 3.7 g/dL (3.9-5) L 02/17/20 05:45 Albumin/Globulin Ratio 1.1 % 02/17/20 05:45 Lipase 9 units/L (13-60) L 02/16/20 10:28 Urine Color Yellow (Yellow) 02/16/20 Unknown Urine Turbidity Clear (Clear) 02/16/20 Unknown Urine pH 7.0 (5.0-7.0) 02/16/20 Unknown Ur Specific [place] 1.023 (1.003-1.030) 02/16/20 Unknown Urine Protein <15 mg/dl mg/dL (Negative) 02/16/20 Unknown Urine Glucose (UA) Neg mg/dL (Negative) 02/16/20 Unknown Urine Ketones Neg mg/dL (Negative) 02/16/20 Unknown Urine Blood Neg (Negative) 02/16/20 Unknown Urine Nitrite Neg (Negative) 02/16/20 Unknown Urine Bilirubin Neg (Negative) 02/16/20 Unknown Urine Urobilinogen 4.0 mg/dL (<2.0) 02/16/20 Unknown Ur Leukocyte Esterase Tr (Negative) 02/16/20 Unknown Urine WBC (Auto) 7.0 /HPF (0.0-6.0) H 02/16/20 Unknown Urine RBC (Auto) 1.0 /HPF (0.0-6.0) 02/16/20 Unknown U Epithel Cells (Auto) < 1.0 /HPF (0-13.0) 02/16/20 Unknown Hyaline Casts 2 /LPF 02/16/20 Unknown Urine Mucus Few /HPF 02/16/20 Unknown Nasal Screen MRSA (PCR) Positive (Negative) 02/17/20 10:55 Coronavirus (PCR) Negative (Negative) 02/29/20 Unknown Blood Type A POSITIVE 02/22/20 10:12 Antibody Screen Negative 02/22/20 10:12 Microbiology: Microbiology 02/29/20 02:37 Peripheral/Venous Blood Culture - Preliminary NO GROWTH AFTER 48 HOURS 02/29/20 02:42 Peripheral/Venous Blood Culture - Preliminary NO GROWTH AFTER 48 HOURS 02/27/20 00:48 Peripheral/Venous Blood Culture - Preliminary Klebsiella Pneumoniae 02/27/20 00:48 Peripheral/Venous Blood Culture - Preliminary Klebsiella Pneumoniae - Diagnostic Impressions Diagnostic Impressions: Echocardiogram 02/28/20 15:43 Transthoracic Echocardiogram Indication: Tachycardia BP: 100/52 HR: 92 Conclusions *Global left ventricular wall motion and contractility are within normal limits. *Global left ventricular systolic function is normal. *The estimated ejection fraction is 50-55%. *Abnormal left ventricular diastolic filling is observed, consistent with impaired relaxation. *There is no pericardial effusion. Findings Left Ventricle: The left ventricular chamber size is normal. Global left ventricular wall motion and contractility are within normal limits. Global left ventricular systolic function is normal. The estimated ejection fraction is 50-55%. Abnormal left ventricular diastolic filling is observed, consistent with impaired relaxation. Left Atrium: The left atrial chamber size is normal. Right Ventricle: The right ventricular cavity size is normal. Right Atrium: The right atrial cavity size is normal. Aortic Valve: The aortic valve structure is normal. There is no evidence of aortic regurgitation. Mitral Valve: The mitral valve leaflets are mildly thickened. There is no evidence of mitral regurgitation. Tricuspid Valve: The tricuspid valve leaflets are normal. There is trace tricuspid regurgitation. The right ventricular systolic pressure is calculated at 20 mmHg. Pulmonic Valve: The pulmonic valve appears normal. There is trace pulmonic regurgitation. Pericardium: There is no pericardial effusion. Aorta: The aorta appears normal. Venous: The venous system is not well visualized. Measurements Chambers 2D Name Value Normal Range IVSd (2D) 0.93 cm (0.6 - 1.1) LVPWd (2D) 0.99 cm (0.6 - 1.1) LVIDd (2D) 4.54 cm (3.7 - 5.6) LVIDs (2D) 3.56 cm (2 - 3.8) LV FS (2D) 21.58 % - EF Teichholz (2D) 43.84 % - Ao root diameter (2D) 3.26 cm (2 - 3.7) Volumes/Mass Name Value Normal Range LA ESV SP 4CH (A/L) 42.96 ml - LA ESV SP 2CH (A/L) 23.92 ml - LA ESV BP (A/L) 35.47 ml - LA ESV BP (A/L) index 15.7 ml/m2 - LA ESV SP 4CH (MOD) 39.1 ml - LA ESV SP 2CH (MOD) 23.01 ml - LA ESV BP (MOD) 33.07 ml - LA ESV BP (MOD) index 14.63 ml/m2 - Diastolic/Systolic Function Name Value Normal Range MV E-wave Vmax 1 m/sec - MV deceleration time 202.11 msec - MV A-wave Vmax 0.54 m/sec - MV E:A ratio 1.85 ratio - Aortic Valve Name Value Normal Range AV Vmax 1.26 m/sec - AV VTI 20.3 cm - AV peak gradient 6.35 mmHg - AV mean gradient 3.07 mmHg - LVOT diameter 2.04 cm - LVOT Vmax 1.14 m/sec - LVOT VTI 22.15 cm - LVOT peak gradient 5.17 mmHg - LVOT mean gradient 3 mmHg - SV LVOT 72.2 ml - YENIFER (continuity Vmax) 2.94 cm2 - YENIFER (continuity VTI) 3.56 cm2 - Tricuspid Valve Name Value Normal Range TR Vmax 2.05 m/sec - TR peak gradient 17 mmHg - RAP 3 mmHg - RVSP 20 mmHg - Pulmonic Valve/Qp:Qs Name Value Normal Range PV Vmax 1.27 m/sec - PV peak gradient 6.46 mmHg - UT end-diastolic Vmax 1.44 m/sec - PV acceleration time 129.4 msec - Mcpherson/IV: Voiding Method Toilet IV Catheter Type [Left Hand] Peripheral IV IV Catheter Type [Right Hand] Peripheral IV IV Catheter Type [Left Forearm Peripheral IV ] IV Catheter Type [Right INT / Saline Lock Antecubital] Active Medications - Current Medications Current Medications: Generic Name Dose Route Start Last Admin Trade Name Freq PRN Reason Stop Dose Admin Acetaminophen 650 mg 02/17/20 02:52 02/29/20 05:25 Tylenol PO 650 mg Q4H PRN Administration Pain MILD(1-3)/Fever >100.5/BARRY Benztropine Mesylate 0.5 mg 02/17/20 22:00 03/01/20 22:53 Cogentin PO 0.5 mg BID STEPHEN Administration Bisacodyl 10 mg 02/19/20 10:00 03/01/20 10:06 Dulcolax UT 10 mg QDAY STEPHEN Administration Clonazepam 2 mg 02/19/20 22:00 03/01/20 22:53 Klonopin PO 2 mg BID STEPHEN Administration Dextrose 50 ml 02/18/20 18:35 D50w (25gm) Syringe IV Q30MIN PRN Hypoglycemia Protocol Divalproex Sodium 500 mg 02/27/20 22:00 03/01/20 22:54 Depakote Er PO 500 mg BID STEPHEN Administration Famotidine 20 mg 02/27/20 10:00 03/01/20 22:54 Pepcid PO 20 mg BID STEPHEN Administration Haloperidol Lactate 5 mg 02/26/20 10:04 02/28/20 23:46 Haldol IM 5 mg Q6H PRN Administration Agitation Heparin Sodium (Porcine) 5,000 unit 02/17/20 03:00 03/01/20 22:54 Heparin SUB-Q 5,000 unit Q12HR STEPHEN Administration Hydromorphone HCl 0.5 mg 02/16/20 21:50 02/27/20 11:21 Dilaudid IV 0.5 mg Q3H PRN Administration Pain , Severe (7-10) Hydrophilic Ointment 1 applic 02/28/20 08:51 02/28/20 11:36 Vaseline Lip Therapy TP 1 applic DIRECT PRN Administration Dry Lips Potassium Chloride/Dextrose/Sod Cl 20 meq in 1,000 mls @ 75 mls/hr 02/22/20 18:00 03/01/20 17:20 D5w/0.45% Nacl/Kcl 20 Meq IV 125 mls/hr DIRECT STEPHEN Administration Ceftriaxone Sodium 2 gm in 100 mls @ 200 mls/hr 02/27/20 17:00 03/01/20 10:06 Rocephin/Ns 2 Gm/100 Ml IV 200 mls/hr Q24HR STEPHEN Administration Metoclopramide HCl 10 mg 02/25/20 14:00 05/23/20 22:29 Reglan IV 10 mg Q8H STEPHEN Administration Mupirocin 1 applic 02/18/20 22:00 03/01/20 10:09 Bactroban 2% NS 1 applic BID STEPHEN Administration Ondansetron HCl 4 mg 02/17/20 02:52 02/22/20 22:13 Zofran IV 4 mg Q8H PRN Administration Nausea And Vomiting Phenol 1 spray 02/24/20 16:23 Chloraseptic MM PRN PRN Sore Throat Sodium Chloride 10 ml 02/17/20 10:00 03/01/20 10:07 Sodium Chloride Flush Syringe 10 Ml IV 10 ml BID STEPHEN Administration Sodium Chloride 10 ml 02/17/20 02:52 Sodium Chloride Flush Syringe 10 Ml IV PRN PRN LINE FLUSH Trazodone HCl 100 mg 02/17/20 22:00 03/01/20 22:54 Desyrel PO 100 mg HS STEPHEN Administration Nutrition/Malnutrition Assess - Dietary Evaluation Nutrition/Malnutrition Findings: Nutrition Notes Start: 02/25/20 14:42 Freq: Status: Active Protocol: Document 02/28/20 13:16 LM (Rec: 02/28/20 13:22 LM [email or web address]) Nutrition Notes Initial or Follow up Reassessment Current Diagnosis CKD(stage I-IV),Hypertension Other Pertinent Diagnosis SBO, s/p exp lap/lysis of adhesions, seizures, down syndrome Current Diet Cl liq Labs/Tests Reviewed Pertinent Medications D5W/NaCl/KCl at 75ml/hr Height 5 ft 10 in Weight 110 kg [place] Body Weight (kg) 75.45 BMI 34.7 Weight Status Obese Subjective/Other Information Unable to reach pt. Per MD reports pt is tolerating clears. Burn Absent Trauma Absent Current % PO Negligible Minimum of two criteria No Energy Intake (severe) < or equal to 50% Estimated Energy Requirement > or equal to 5 days #1 Nutrition Diagnosis Inadequate oral intake Diagnosis Progress(for reassessment Continues documentation) Is patient on ventilator? No Is Patient Ambulatory and/or Out of Bed Yes REE-(Barron-St. Jeor-ambulatory/OOB) [ 6604.625 [id number]] Kcal/Kg value to use for calculation 20 Approximate Energy Requirements Using 2200 kcal/Kg Calculation Used for Recommendations Kcal/kg Additional Notes Protein: 74-93g (0.8-1g/kg using AdjBW 93kg) Fluid: 1 ml/kcal Nutrition Intervention Change Diet Order: diet advancement when medically feasible Add Supplement/Snack (indicate name/kcal Ensure clear TID /protein ) Provides kCal: 720 Provides Protein (gm) 24 Goal #1 diet tolerance/advancement Follow-Up By: 03/04/20 Additional Comments F/U for diet tolerance/ advancement
[2020-03-02] MEDS: MUPIROCIN 2% OINT 22 GM NS SCH ×2 (09:04→22:18)
[2020-03-02] MEDS: cefTRIAXone/NS 2 GM/100 ML 2 GM/100 ML BAG IV SCH (09:05)
[2020-03-02] MEDS: D5W/0.45% NACL/KCL 20 MEQ 20 MEQ/1,000 ML BAG IV SCH (09:05)
[2020-03-02] MEDS: FAMOTIDINE 20 MG TAB PO SCH ×2 (09:06→22:15)
[2020-03-02] MEDS: DIVALPROEX ER 500 MG TAB PO SCH ×2 (09:06→22:15)
[2020-03-02] MEDS: BENZTROPINE 0.5 MG TAB PO SCH ×2 (09:07→22:16)
[2020-03-02] MEDS: HEPARIN 5,000 UNIT/1 ML VIAL SUB-Q SCH ×2 (09:08→22:17)
[2020-03-02 10:43] LABS: BUN/Creatinine Ratio 3; Blood Urea Nitrogen 2 mg/dL (9-20); Calcium 8.6 mg/dL (8.4-10.2); Hemolysis Index 56
[2020-03-02] MEDS: HYDROmorphone 1 MG/1 ML INJ IV PRN (10:50)
[2020-03-02] MEDS: SENNOSIDES 8.6 MG TAB PO SCH (22:15)
[2020-03-02] MEDS: traZODone 100 MG TAB PO SCH (22:15)
[2020-03-02] MEDS: METOCLOPRAMIDE 10 MG/2 ML INJ IV SCH (22:16)
[2020-03-03] MEDS: METOCLOPRAMIDE 10 MG/2 ML INJ IV SCH ×2 (05:54→15:23)
[2020-03-03] MEDS: BENZTROPINE 0.5 MG TAB PO SCH ×2 (09:40→23:08)
[2020-03-03] MEDS: DIVALPROEX ER 500 MG TAB PO SCH ×2 (09:40→23:08)
[2020-03-03] MEDS: FAMOTIDINE 20 MG TAB PO SCH ×2 (09:41→23:09)
[2020-03-03] MEDS: HEPARIN 5,000 UNIT/1 ML VIAL SUB-Q SCH ×2 (10:08→23:10)
[2020-03-03] MEDS: cefTRIAXone/NS 2 GM/100 ML 2 GM/100 ML BAG IV SCH (10:08)
[2020-03-03 11:20] LABS: Hematocrit 32.3 % (35.5-45.6); Hemoglobin 10.6 gm/dl (11.8-15.2); Mean Corpuscular HGB Conc 33 % (32-34); Mean Corpuscular Volume 91 fl (84-94); Platelet Count 349 K/mm3 (140-440); Red Blood Count 3.53 M/mm3 (3.65-5.03); Red Cell Distribution Width 15.7 % (13.2-15.2)
[2020-03-03 11:26] LABS: BUN/Creatinine Ratio 4; Blood Urea Nitrogen 2 mg/dL (9-20); Hemolysis Index 6
[2020-03-03 12:41] LABS: Band Neutrophils # (Manual) 0.1 K/mm3; Basophils % (Manual) 0 % (0.0-1.8); Eosinophils % (Manual) 0 % (0.0-4.3); Hypochromasia 1+; Platelet Estimate Consistent w Auto; Stomatocytes Few; Total Cells Counted 100
--- NOTE | 2020-03-03 13:36 | Progress Note ---
Assessment and Plan - Patient Problems (1) Congestive heart failure (CHF) Current Visit: Yes Status: Acute Plan to address problem: Patient with congestive heart failure ejection fraction 20 to 25%. Currently hemodynamically stable. No JVD trace edema no crackles. Continue medical management. Patient on diuretics but not on ARLIN inhibitor or beta-cesar because of recent surgery. Patient now tolerating meals well. Blood pressure still on the low side. We will continue to hold antihypertensives. Coreg and ARLIN inhibitor. Follow-up chest x-ray unremarkable for volume overload or pulmonary edema. Clinical exam patient heart failure appears to be well compensated. Will add Lasix today decrease any fluids patient may have. (2) Small bowel obstruction Current Visit: Yes Status: Acute Plan to address problem: Patient small bowel obstruction status post surgical correction and lysis of adhesions. Patient wound looks well. Spoke to surgical consult in detail. Plan was explained in detail. Agree with plan. Patient lives in personal longterm. Once patient more stable for discharge which I can anticipate on Tuesday will attempt to make sure patient has a place for stable environment. May be a candidate for skilled nurse facility the personal longterm most likely cannot meet patient's needs. Patient had a recent stay at [facility] facility inside [facility]. Mother would want patient to go back to that faci lity prior to longterm. (3) Bacteremia due to Gram-negative bacteria Current Visit: Yes Status: Acute Plan to address problem: Blood cultures Klebsiella sensitive to Rocephin. Blood culture gram-negative rods. Covered with Rocephin. Still has low-grade fever (4) Hyponatremia Current Visit: Yes Status: Acute (5) Small bowel obstruction due to adhesions Current Visit: Yes Status: Acute Plan to address problem: Secondary to adhesions exploratory lap with lysis of adhesions. Patient hemodynamically stable has bowel sounds this post bowel movement. Patient will be going to nursing facility yet cell [facility]. (6) [place] (acute kidney injury) Current Visit: No Status: Acute Plan to address problem: Prerenal azotemia has resolved. (7) Acute respiratory failure Current Visit: No Status: Resolved Qualifiers: Respiratory failure complication: hypoxia Qualified Code(s): J96.01 - Acute respiratory failure with hypoxia Plan to address problem: Secondary to pulmonary edema patient was on high flow O2 has been weaned down to nasal cannula today much better. Patient tolerating de-escalation of oxygen well. History Interval history: Hospital course complicated over p.m. by generalized edema. Most likely from fluids. Otherwise no event new events patient eating fairly well have bowel movement. Hospitalist Physical - Constitutional Vitals: Temp Pulse Resp BP Pulse Ox 98.5 F 82 18 107/50 97 03/03/20 08:31 03/03/20 08:31 03/03/20 08:31 03/03/20 08:31 03/03/20 08:31 General appearance: Present: no acute distress, well-nourished - EENT Eyes: Present: PERRL ENT: hearing intact - Neck Neck: Present: supple, normal ROM - Respiratory Respiratory: bilateral: CTA - Cardiovascular Rhythm: regular - Extremities Extremities: no ischemia, pulses intact, pulses symmetrical Peripheral Pulses: within normal limits - Abdominal General gastrointestinal: soft, normal bowel sounds, other (Slightly distended. Postsurgical incision intact.) - Integumentary Integumentary: Present: clear, warm, dry Results - Labs CBC & Chem 7: 03/03/20 10:31 03/03/20 10:31 Labs: Laboratory Last Values WBC 7.6 K/mm3 (4.5-11.0) 03/03/20 10:31 RBC 3.53 M/mm3 (3.65-5.03) L 03/03/20 10:31 Hgb 10.6 gm/dl (11.8-15.2) L 03/03/20 10:31 Hct 32.3 % (35.5-45.6) L 03/03/20 10:31 MCV 91 fl (84-94) 03/03/20 10:31 MCH 30 pg (28-32) 03/03/20 10:31 MCHC 33 % (32-34) 03/03/20 10:31 RDW 15.7 % (13.2-15.2) H 03/03/20 10:31 Plt Count 349 K/mm3 (140-440) 03/03/20 10:31 Lymph % (Auto) Telecommunications Equipment Installer 02/29/20 09:09 [place] % (Auto) Telecommunications Equipment Installer 02/29/20 09:09 Eos % (Auto) Telecommunications Equipment Installer 02/29/20 09:09 Baso % (Auto) Telecommunications Equipment Installer 02/29/20 09:09 Lymph # Telecommunications Equipment Installer 02/29/20 09:09 [place] # Telecommunications Equipment Installer 02/29/20 09:09 Eos # Telecommunications Equipment Installer 02/29/20 09:09 Baso # Telecommunications Equipment Installer 02/29/20 09:09 Add Manual Diff Complete 03/03/20 10:31 Total Counted 100 03/03/20 10:31 Seg Neutrophils % Telecommunications Equipment Installer 02/29/20 09:09 Seg Neuts % (Manual) 76.0 % (40.0-70.0) H 03/03/20 10:31 Band Neutrophils % 1.0 % 03/03/20 10:31 Lymphocytes % (Manual) 15.0 % (13.4-35.0) 03/03/20 10:31 Reactive Lymphs % (Man) 0 % 03/03/20 10:31 Monocytes % (Manual) 7.0 % (0.0-7.3) 03/03/20 10:31 Eosinophils % (Manual) 0 % (0.0-4.3) 03/03/20 10:31 Basophils % (Manual) 0 % (0.0-1.8) 03/03/20 10:31 Metamyelocytes % 1.0 % 03/03/20 10:31 Myelocytes % 0 % 03/03/20 10:31 Promyelocytes % 0 % 03/03/20 10:31 Blast Cells % 0 % 03/03/20 10:31 Nucleated RBC % 1.0 % (0.0-0.9) H 03/03/20 10:31 Seg Neutrophils # Telecommunications Equipment Installer 02/29/20 09:09 Seg Neutrophils # Man 5.8 K/mm3 (1.8-7.7) 03/03/20 10:31 Band Neutrophils # 0.1 K/mm3 03/03/20 10:31 Lymphocytes # (Manual) 1.1 K/mm3 (1.2-5.4) L 03/03/20 10:31 Abs React Lymphs (Man) 0.0 K/mm3 03/03/20 10:31 Monocytes # (Manual) 0.5 K/mm3 (0.0-0.8) 03/03/20 10:31 Eosinophils # (Manual) 0.0 K/mm3 (0.0-0.4) 03/03/20 10:31 Basophils # (Manual) 0.0 K/mm3 (0.0-0.1) 03/03/20 10:31 Metamyelocytes # 0.1 K/mm3 03/03/20 10:31 Myelocytes # 0.0 K/mm3 03/03/20 10:31 Promyelocytes # 0.0 K/mm3 03/03/20 10:31 Blast Cells # 0.0 K/mm3 03/03/20 10:31 WBC Morphology Not Reportable 03/03/20 10:31 Hypersegmented Neuts Not Reportable 03/03/20 10:31 Hyposegmented Neuts Not Reportable 03/03/20 10:31 Hypogranular Neuts Not Reportable 03/03/20 10:31 Smudge Cells Not Reportable 03/03/20 10:31 Toxic Granulation Not Reportable 03/03/20 10:31 Toxic Vacuolation Not Reportable 03/03/20 10:31 Dohle Bodies Not Reportable 03/03/20 10:31 Pelger-Huet Anomaly Not Reportable 03/03/20 10:31 Alea Rods Not Reportable 03/03/20 10:31 Platelet Estimate Consistent w auto 03/03/20 10:31 Clumped Platelets Not Reportable 03/03/20 10:31 Plt Clumps, EDTA Not Reportable 03/03/20 10:31 Large Platelets Not Reportable 03/03/20 10:31 Giant Platelets Not Reportable 03/03/20 10:31 Platelet Satelliting Not Reportable 03/03/20 10:31 Plt Morphology Comment Not Reportable 03/03/20 10:31 RBC Morphology Not Reportable 03/03/20 10:31 Dimorphic RBCs Not Reportable 03/03/20 10:31 Polychromasia Not Reportable 03/03/20 10:31 Hypochromasia 1+ 03/03/20 10:31 Poikilocytosis Not Reportable 03/03/20 10:31 Anisocytosis Not Reportable 03/03/20 10:31 Microcytosis Few 03/03/20 10:31 Macrocytosis Not Reportable 03/03/20 10:31 Spherocytes Not Reportable 03/03/20 10:31 Pappenheimer Bodies Not Reportable 03/03/20 10:31 Sickle Cells Not Reportable 03/03/20 10:31 Target Cells Not Reportable 03/03/20 10:31 Tear Drop Cells Not Reportable 03/03/20 10:31 Ovalocytes Not Reportable 03/03/20 10:31 Stomatocytes Few 03/03/20 10:31 Helmet Cells Not Reportable 03/03/20 10:31 Woodard[place] Bodies Not Reportable 03/03/20 10:31 Satin Rings Not Reportable 03/03/20 10:31 Kaylyn Cells Not Reportable 03/03/20 10:31 Bite Cells Not Reportable 03/03/20 10:31 Crenated Cell Not Reportable 03/03/20 10:31 Elliptocytes Not Reportable 03/03/20 10:31 Acanthocytes (Spur) Not Reportable 03/03/20 10:31 Rouleaux Not Reportable 03/03/20 10:31 Hemoglobin C Crystals Not Reportable 03/03/20 10:31 Schistocytes Not Reportable 03/03/20 10:31 Malaria parasites Not Reportable 03/03/20 10:31 Emanuel Bodies Not Reportable 03/03/20 10:31 Hem Pathologist Commnt No 03/03/20 10:31 Sodium 141 mmol/L (137-145) 03/03/20 10:31 Potassium 4.8 mmol/L (3.6-5.0) 03/03/20 10:31 Chloride 100.7 mmol/L (98-107) 03/03/20 10:31 Carbon Dioxide 31 mmol/L (22-30) H 03/03/20 10:31 Anion Gap 14 mmol/L 03/03/20 10:31 BUN 2 mg/dL (9-20) L 03/03/20 10:31 Creatinine 0.5 mg/dL (0.8-1.5) L 03/03/20 10:31 Estimated GFR > 60 ml/min 03/03/20 10:31 BUN/Creatinine Ratio 4 % 03/03/20 10:31 Glucose 91 mg/dL (75-100) 03/03/20 10:31 POC Glucose 86 (70-105) 02/25/20 16:47 Calcium 9.0 mg/dL (8.4-10.2) 03/03/20 10:31 Phosphorus 3.80 mg/dL (2.5-4.5) D 02/26/20 09:18 Magnesium 1.80 mg/dL (1.7-2.3) 02/25/20 05:18 Total Bilirubin 0.40 mg/dL (0.1-1.2) 02/17/20 05:45 AST 10 units/L (5-40) 02/17/20 05:45 ALT 6 units/L (7-56) L 02/17/20 05:45 Alkaline Phosphatase 52 units/L (35-129) 02/17/20 05:45 Total Protein 7.0 g/dL (6.3-8.2) 02/17/20 05:45 Albumin 3.7 g/dL (3.9-5) L 02/17/20 05:45 Albumin/Globulin Ratio 1.1 % 02/17/20 05:45 Lipase 9 units/L (13-60) L 02/16/20 10:28 Urine Color Yellow (Yellow) 02/16/20 Unknown Urine Turbidity Clear (Clear) 02/16/20 Unknown Urine pH 7.0 (5.0-7.0) 02/16/20 Unknown Ur Specific [place] 1.023 (1.003-1.030) 02/16/20 Unknown Urine Protein <15 mg/dl mg/dL (Negative) 02/16/20 Unknown Urine Glucose (UA) Neg mg/dL (Negative) 02/16/20 Unknown Urine Ketones Neg mg/dL (Negative) 02/16/20 Unknown Urine Blood Neg (Negative) 02/16/20 Unknown Urine Nitrite Neg (Negative) 02/16/20 Unknown Urine Bilirubin Neg (Negative) 02/16/20 Unknown Urine Urobilinogen 4.0 mg/dL (<2.0) 02/16/20 Unknown Ur Leukocyte Esterase Tr (Negative) 02/16/20 Unknown Urine WBC (Auto) 7.0 /HPF (0.0-6.0) H 02/16/20 Unknown Urine RBC (Auto) 1.0 /HPF (0.0-6.0) 02/16/20 Unknown U Epithel Cells (Auto) < 1.0 /HPF (0-13.0) 02/16/20 Unknown Hyaline Casts 2 /LPF 02/16/20 Unknown Urine Mucus Few /HPF 02/16/20 Unknown Nasal Screen MRSA (PCR) Positive (Negative) 02/17/20 10:55 Coronavirus (PCR) Negative (Negative) 02/29/20 Unknown Blood Type A POSITIVE 02/22/20 10:12 Antibody Screen Negative 02/22/20 10:12 Microbiology: Microbiology 02/29/20 02:37 Peripheral/Venous Blood Culture - Preliminary NO GROWTH AFTER 72 HOURS 02/29/20 02:42 Peripheral/Venous Blood Culture - Preliminary NO GROWTH AFTER 72 HOURS - Diagnostic Impressions Diagnostic Impressions: Echocardiogram 02/28/20 15:43 Transthoracic Echocardiogram Indication: Tachycardia BP: 100/52 HR: 92 Conclusions *Global left ventricular wall motion and contractility are within normal limits. *Global left ventricular systolic function is normal. *The estimated ejection fraction is 50-55%. *Abnormal left ventricular diastolic filling is observed, consistent with impaired relaxation. *There is no pericardial effusion. Findings Left Ventricle: The left ventricular chamber size is normal. Global left ventricular wall motion and contractility are within normal limits. Global left ventricular systolic function is normal. The estimated ejection fraction is 50-55%. Abnormal left ventricular diastolic filling is observed, consistent with impaired relaxation. Left Atrium: The left atrial chamber size is normal. Right Ventricle: The right ventricular cavity size is normal. Right Atrium: The right atrial cavity size is normal. Aortic Valve: The aortic valve structure is normal. There is no evidence of aortic regurgitation. Mitral Valve: The mitral valve leaflets are mildly thickened. There is no evidence of mitral regurgitation. Tricuspid Valve: The tricuspid valve leaflets are normal. There is trace tricuspid regurgitation. The right ventricular systolic pressure is calculated at 20 mmHg. Pulmonic Valve: The pulmonic valve appears normal. There is trace pulmonic regurgitation. Pericardium: There is no pericardial effusion. Aorta: The aorta appears normal. Venous: The venous system is not well visualized. Measurements Chambers 2D Name Value Normal Range IVSd (2D) 0.93 cm (0.6 - 1.1) LVPWd (2D) 0.99 cm (0.6 - 1.1) LVIDd (2D) 4.54 cm (3.7 - 5.6) LVIDs (2D) 3.56 cm (2 - 3.8) LV FS (2D) 21.58 % - EF Teichholz (2D) 43.84 % - Ao root diameter (2D) 3.26 cm (2 - 3.7) Volumes/Mass Name Value Normal Range LA ESV SP 4CH (A/L) 42.96 ml - LA ESV SP 2CH (A/L) 23.92 ml - LA ESV BP (A/L) 35.47 ml - LA ESV BP (A/L) index 15.7 ml/m2 - LA ESV SP 4CH (MOD) 39.1 ml - LA ESV SP 2CH (MOD) 23.01 ml - LA ESV BP (MOD) 33.07 ml - LA ESV BP (MOD) index 14.63 ml/m2 - Diastolic/Systolic Function Name Value Normal Range MV E-wave Vmax 1 m/sec - MV deceleration time 202.11 msec - MV A-wave Vmax 0.54 m/sec - MV E:A ratio 1.85 ratio - Aortic Valve Name Value Normal Range AV Vmax 1.26 m/sec - AV VTI 20.3 cm - AV peak gradient 6.35 mmHg - AV mean gradient 3.07 mmHg - LVOT diameter 2.04 cm - LVOT Vmax 1.14 m/sec - LVOT VTI 22.15 cm - LVOT peak gradient 5.17 mmHg - LVOT mean gradient 3 mmHg - SV LVOT 72.2 ml - YENIFER (continuity Vmax) 2.94 cm2 - YENIFER (continuity VTI) 3.56 cm2 - Tricuspid Valve Name Value Normal Range TR Vmax 2.05 m/sec - TR peak gradient 17 mmHg - RAP 3 mmHg - RVSP 20 mmHg - Pulmonic Valve/Qp:Qs Name Value Normal Range PV Vmax 1.27 m/sec - PV peak gradient 6.46 mmHg - MO end-diastolic Vmax 1.44 m/sec - PV acceleration time 129.4 msec - Mcpherson/IV: Voiding Method Condom Catheter IV Catheter Type [Left Hand] Peripheral IV IV Catheter Type [Right Hand] Peripheral IV IV Catheter Type [Left Forearm Peripheral IV ] IV Catheter Type [Right INT / Saline Lock Antecubital] Active Medications - Current Medications Current Medications: Generic Name Dose Route Start Last Admin Trade Name Freq PRN Reason Stop Dose Admin Acetaminophen 650 mg 02/17/20 02:52 02/29/20 05:25 Tylenol PO 650 mg Q4H PRN Administration Pain MILD(1-3)/Fever >100.5/BARRY Benztropine Mesylate 0.5 mg 02/17/20 22:00 03/03/20 09:40 Cogentin PO 0.5 mg BID STEPHEN Administration Bisacodyl 10 mg 02/19/20 10:00 03/03/20 09:41 Dulcolax MO 10 mg QDAY STEPHEN Administration Clonazepam 2 mg 02/19/20 22:00 03/03/20 09:40 Klonopin PO 2 mg BID STEPHEN Administration Dextrose 50 ml 02/18/20 18:35 D50w (25gm) Syringe IV Q30MIN PRN Hypoglycemia Protocol Divalproex Sodium 500 mg 02/27/20 22:00 03/03/20 09:40 Depakote Er PO 500 mg BID STEPHEN Administration Famotidine 20 mg 02/27/20 10:00 03/03/20 09:41 Pepcid PO 20 mg BID STEPHEN Administration Haloperidol Lactate 5 mg 02/26/20 10:04 02/28/20 23:46 Haldol IM 5 mg Q6H PRN Administration Agitation Heparin Sodium (Porcine) 5,000 unit 02/17/20 03:00 03/03/20 10:08 Heparin SUB-Q 5,000 unit Q12HR STEPHEN Administration Hydromorphone HCl 0.5 mg 02/16/20 21:50 03/02/20 10:50 Dilaudid IV 0.5 mg Q3H PRN Administration Pain , Severe (7-10) Hydrophilic Ointment 1 applic 02/28/20 08:51 02/28/20 11:36 Vaseline Lip Therapy TP 1 applic DIRECT PRN Administration Dry Lips Ceftriaxone Sodium 2 gm in 100 mls @ 200 mls/hr 02/27/20 17:00 03/03/20 10:08 Rocephin/Ns 2 Gm/100 Ml IV 200 mls/hr Q24HR STEPHEN Administration Metoclopramide HCl 10 mg 02/25/20 14:00 03/03/20 05:54 Reglan IV 10 mg Q8H STEPHEN Administration Mupirocin 1 applic 02/18/20 22:00 03/02/20 22:18 Bactroban 2% NS 1 applic BID STEPHEN Administration Ondansetron HCl 4 mg 02/17/20 02:52 02/22/20 22:13 Zofran IV 4 mg Q8H PRN Administration Nausea And Vomiting Phenol 1 spray 02/24/20 16:23 Chloraseptic MM PRN PRN Sore Throat Senna 17.2 mg 03/02/20 22:00 03/02/20 22:15 Senokot PO 17.2 mg QHS STEPHEN Administration Sodium Chloride 10 ml 02/17/20 10:00 03/02/20 22:16 Sodium Chloride Flush Syringe 10 Ml IV 10 ml BID STEPHEN Administration Sodium Chloride 10 ml 02/17/20 02:52 03/03/20 05:55 Sodium Chloride Flush Syringe 10 Ml IV 10 ml PRN PRN Administration LINE FLUSH Trazodone HCl 100 mg 02/17/20 22:00 03/02/20 22:15 Desyrel PO 100 mg HS STEPHEN Administration Nutrition/Malnutrition Assess - Dietary Evaluation Nutrition/Malnutrition Findings: Nutrition Notes Start: 02/25/20 14: 42 Freq: Status: Active Protocol: Document 02/28/20 13:16 LM (Rec: 02/28/20 13:22 LM -[email or web address]) Nutrition Notes Initial or Follow up Reassessment Current Diagnosis CKD(stage I-IV),Hypertension Other Pertinent Diagnosis SBO, s/p exp lap/lysis of adhesions, seizures, down syndrome Current Diet Cl liq Labs/Tests Reviewed Pertinent Medications D5W/NaCl/KCl at 75ml/hr Height 5 ft 10 in Weight 110 kg [place] Body Weight (kg) 75.45 BMI 34.7 Weight Status Obese Subjective/Other Information Unable to reach pt. Per MD reports pt is tolerating clears. Burn Absent Trauma Absent Current % PO Negligible Minimum of two criteria No Energy Intake (severe) < or equal to 50% Estimated Energy Requirement > or equal to 5 days #1 Nutrition Diagnosis Inadequate oral intake Diagnosis Progress(for reassessment Continues documentation) Is patient on ventilator? No Is Patient Ambulatory and/or Out of Bed Yes REE-([facility]-ambulatory/OOB) [ 2744.625 [id number]] Kcal/Kg value to use for calculation 20 Approximate Energy Requirements Using 2200 kcal/Kg Calculation Used for Recommendations Kcal/kg Additional Notes Protein: 74-93g (0.8-1g/kg using AdjBW 93kg) Fluid: 1 ml/kcal Nutrition Intervention Change Diet Order: diet advancement when medically feasible Add Supplement/Snack (indicate name/kcal Ensure clear TID /protein ) Provides kCal: 720 Provides Protein (gm) 24 Goal #1 diet tolerance/advancement Follow-Up By: 03/04/20 Additional Comments F/U for diet tolerance/ advancement
[2020-03-03] MEDS ORDERED: FUROSEMIDE 20 MG TAB PO SCH (14:00)
[2020-03-03] MEDS: MUPIROCIN 2% OINT 22 GM NS SCH ×3 (15:24→23:08)
[2020-03-03] MEDS: traZODone 100 MG TAB PO SCH (23:08)
[2020-03-03] MEDS: SENNOSIDES 8.6 MG TAB PO SCH (23:08)
[2020-03-04] MEDS: METOCLOPRAMIDE 10 MG/2 ML INJ IV SCH ×6 (02:33→23:26)
[2020-03-04] MEDS: cefTRIAXone/NS 2 GM/100 ML 2 GM/100 ML BAG IV SCH (10:55)
[2020-03-04] MEDS: BENZTROPINE 0.5 MG TAB PO SCH ×2 (10:56→22:59)
[2020-03-04] MEDS: DIVALPROEX ER 500 MG TAB PO SCH ×2 (10:56→23:19)
[2020-03-04] MEDS: HEPARIN 5,000 UNIT/1 ML VIAL SUB-Q SCH ×2 (10:57→23:00)
[2020-03-04] MEDS: FAMOTIDINE 20 MG TAB PO SCH ×2 (10:57→23:01)
[2020-03-04] MEDS: FUROSEMIDE 40 MG/4 ML INJ IV SCH (10:57)
[2020-03-04] MEDS: MUPIROCIN 2% OINT 22 GM NS SCH ×2 (11:12→23:20)
[2020-03-04] MEDS: traZODone 100 MG TAB PO SCH (23:00)
[2020-03-04] MEDS: SENNOSIDES 8.6 MG TAB PO SCH (23:01)
[2020-03-05] MEDS: METOCLOPRAMIDE 10 MG/2 ML INJ IV SCH (05:34)
[2020-03-05] MEDS ORDERED: METOCLOPRAMIDE 10 MG/2 ML INJ IV PRN (08:13)
--- NOTE | 2020-03-05 08:17 | Progress Note ---
Assessment and Plan - Patient Problems (1) Small bowel obstruction Current Visit: Yes Status: Acute Plan to address problem: Pt stable. s/p ex lap and ЕЛЕНА (02/23/20) - POD#11. Patient appears back to baseline. He appears comfortable this morning. Appears to have done very well with the full liquid diet. Abdomen remains soft. He has very good bowel sounds. There is still nothing obvious to suggest a problem in the abdomen. Recommend: 1. Will try soft diet. 2. Encourage pulmonary toilet 3. Will give extra laxatives to get bowel movements started. Difficult to know from chart and talking to staff if he has been having regular BMs. 4. will change Reglan to prn. Will try to avoid side effects from continued detention use. Please call with questions. Subjective Date of service: 03/05/20 Patient Reports: Positive: no new complaints, tolerating liquids well Objective Vital Signs - 12hr 03/04/20 03/04/20 03/05/20 23:04 23:27 04:02 Temperature 97.6 F 97.5 F L Pulse Rate 79 81 Respiratory 18 18 Rate Blood Pressure 123/67 122/70 O2 Sat by Pulse 92 100 Oximetry 03/05/20 07:59 Temperature 97.8 F Pulse Rate 72 Respiratory 17 Rate Blood Pressure 117/53 O2 Sat by Pulse 100 Oximetry - General physical appearance no distress, no pain, obese - Respiratory normal expansion, normal respiratory effort - Abdomen soft, not tender, not distended, surgical scars (C/D/I) - Labs 03/03/20 10:31 03/03/20 10:31
[2020-03-05] MEDS: FUROSEMIDE 40 MG/4 ML INJ IV SCH (09:32)
[2020-03-05] MEDS: HEPARIN 5,000 UNIT/1 ML VIAL SUB-Q SCH ×2 (09:32→22:12)
[2020-03-05] MEDS: cefTRIAXone/NS 2 GM/100 ML 2 GM/100 ML BAG IV SCH (09:32)
[2020-03-05] MEDS: BENZTROPINE 0.5 MG TAB PO SCH ×2 (09:32→22:12)
[2020-03-05] MEDS: DIVALPROEX ER 500 MG TAB PO SCH ×2 (09:33→22:12)
[2020-03-05] MEDS: SENNOSIDES 8.6 MG TAB PO SCH ×2 (09:33→22:11)
[2020-03-05] MEDS: MUPIROCIN 2% OINT 22 GM NS SCH ×2 (09:34→22:17)
[2020-03-05] MEDS: FAMOTIDINE 20 MG TAB PO SCH ×2 (09:34→22:11)
--- NOTE | 2020-03-05 10:26 | Progress Note ---
Assessment and Plan Assessment and plan: 19-year-old -Japanese male in no acute distress nontoxic in appearance presents from jail stating that he had nausea and vomiting for 2 days. Patient has a psychiatric history of schizophrenia disorder bipolar, hypertension and Down syndrome. Patient comes in afebrile. * s/p ex lap and ЕЛЕНА (02/23/20) - POD#10. Hospital course complicated over p.m. by generalized edema. Most likely from fluids. Otherwise no event new events patient eating fairly well have bowel movement. - Patient Problems (1) Congestive heart failure (CHF) Current Visit: Yes Status: Acute Plan to address problem: Patient with congestive heart failure ejection fraction 20 to 25%. Currently hemodynamically stable. No JVD trace edema no crackles. Continue medical management. Patient on diuretics but not on ARLIN inhibitor or beta-cesar because of recent surgery. Patient now tolerating meals well. Blood pressure still on the low side. We will continue to hold antihypertensives. Coreg and ARLIN inhibitor. Follow-up chest x-ray unremarkable for volume overload or pulmonary edema. Clinical exam patient heart failure appears to be well compensated. Will add Lasix today decrease any fluids patient may have. Will give extra dose of the Lasix today. (2) Small bowel obstruction Current Visit: Yes Status: Acute Plan to address problem: Patient small bowel obstruction status post surgical correction and lysis of adhesions. Patient wound looks well. Spoke to surgical consult in detail. Plan was explained in detail. Agree with plan. Patient lives in personal detention. Once patient more stable for discharge which I can anticipate on Tuesday will attempt to make sure patient has a place for stable environment. May be a candidate for skilled nurse facility the personal detention most likely cannot meet patient's needs. Patient had a recent stay at shelter facility inside [facility]. Mother would want patient to go back to that facility prior to detention. (3) Bacteremia due to Gram-negative bacteria Current Visit: Yes Status: Acute Plan to address problem: Blood cultures Klebsiella sensitive to Rocephin. Blood culture gram-negative rods. Covered with Rocephin. Still has low-grade fever (4) Hyponatremia Current Visit: Yes Status: Acute (5) Small bowel obstruction due to adhesions Current Visit: Yes Status: Acute Plan to address problem: Secondary to adhesions exploratory lap with lysis of adhesions. Patient hemodynamically stable has bowel sounds this post bowel movement. Patient will be going to nursing facility yet cell [facility]. (6) COLUM[place] (acute kidney injury) Current Visit: No Status: Acute Plan to address problem: Prerenal azotemia has resolved. (7) Acute respiratory failure Current Visit: No Status: Resolved Qualifiers: Respiratory failure complication: hypoxia Qualified Code(s): J96.01 - Acute respiratory failure with hypoxia Plan to address problem: Secondary to pulmonary edema patient was on high flow O2 has been weaned down to nasal cannula today much better. Patient tolerating de-escalation of oxygen well. History Interval history: Patient seen and examined, answers questions but still very lethargic. Hospitalist Physical - Physical exam Narrative exam: General appearance: Present: no acute distress, well-nourished, lethargic, somonolence - EENT Eyes: Present: PERRL ENT: hearing intact - Neck Neck: Present: supple, normal ROM - Respiratory Respiratory: bilateral: CTA - Cardiovascular Rhythm: regular - Extremities Extremities: no ischemia, pulses intact, pulses symmetrical. +2 pitting edema bilateral upper ext Peripheral Pulses: within normal limits - Abdominal General gastrointestinal: soft, normal bowel sounds, other (Slightly distended. Postsurgical incision intact.) - Integumentary Integumentary: Present: clear, warm, dry - Constitutional Vitals: Temp Pulse Resp BP Pulse Ox 97.8 F 72 17 117/53 100 03/05/20 07:59 03/05/20 07:59 03/05/20 07:59 03/05/20 07:59 03/05/20 09:11 General appearance: Present: no acute distress, well-nourished Results - Labs CBC & Chem 7: 03/03/20 10:31 03/03/20 10:31 Labs: Laboratory Last Values WBC 7.6 K/mm3 (4.5-11.0) 03/03/20 10:31 RBC 3.53 M/mm3 (3.65-5.03) L 03/03/20 10:31 Hgb 10.6 gm/dl (11.8-15.2) L 03/03/20 10:31 Hct 32.3 % (35.5-45.6) L 03/03/20 10:31 MCV 91 fl (84-94) 03/03/20 10:31 MCH 30 pg (28-32) 03/03/20 10:31 MCHC 33 % (32-34) 03/03/20 10:31 RDW 15.7 % (13.2-15.2) H 03/03/20 10:31 Plt Count 349 K/mm3 (140-440) 03/03/20 10:31 Lymph % (Auto) Boiler Control Room Operator 02/29/20 09:09 [place] % (Auto) Boiler Control Room Operator 02/29/20 09:09 Eos % (Auto) Boiler Control Room Operator 02/29/20 09:09 Baso % (Auto) Boiler Control Room Operator 02/29/20 09:09 Lymph # Boiler Control Room Operator 02/29/20 09:09 [place] # Boiler Control Room Operator 02/29/20 09:09 Eos # Boiler Control Room Operator 02/29/20 09:09 Baso # Boiler Control Room Operator 02/29/20 09:09 Add Manual Diff Complete 03/03/20 10:31 Total Counted 100 03/03/20 10:31 Seg Neutrophils % Boiler Control Room Operator 02/29/20 09:09 Seg Neuts % (Manual) 76.0 % (40.0-70.0) H 03/03/20 10:31 Band Neutrophils % 1.0 % 03/03/20 10:31 Lymphocytes % (Manual) 15.0 % (13.4-35.0) 03/03/20 10:31 Reactive Lymphs % (Man) 0 % 03/03/20 10:31 Monocytes % (Manual) 7.0 % (0.0-7.3) 03/03/20 10:31 Eosinophils % (Manual) 0 % (0.0-4.3) 03/03/20 10:31 Basophils % (Manual) 0 % (0.0-1.8) 03/03/20 10:31 Metamyelocytes % 1.0 % 03/03/20 10:31 Myelocytes % 0 % 03/03/20 10:31 Promyelocytes % 0 % 03/03/20 10:31 Blast Cells % 0 % 03/03/20 10:31 Nucleated RBC % 1.0 % (0.0-0.9) H 03/03/20 10:31 Seg Neutrophils # Boiler Control Room Operator 02/29/20 09:09 Seg Neutrophils # Man 5.8 K/mm3 (1.8-7.7) 03/03/20 10:31 Band Neutrophils # 0.1 K/mm3 03/03/20 10:31 Lymphocytes # (Manual) 1.1 K/mm3 (1.2-5.4) L 03/03/20 10:31 Abs React Lymphs (Man) 0.0 K/mm3 03/03/20 10:31 Monocytes # (Manual) 0.5 K/mm3 (0.0-0.8) 03/03/20 10:31 Eosinophils # (Manual) 0.0 K/mm3 (0.0-0.4) 03/03/20 10:31 Basophils # (Manual) 0.0 K/mm3 (0.0-0.1) 03/03/20 10:31 Metamyelocytes # 0.1 K/mm3 03/03/20 10:31 Myelocytes # 0.0 K/mm3 03/03/20 10:31 Promyelocytes # 0.0 K/mm3 03/03/20 10:31 Blast Cells # 0.0 K/mm3 03/03/20 10:31 WBC Morphology Not Reportable 03/03/20 10:31 Hypersegmented Neuts Not Reportable 03/03/20 10:31 Hyposegmented Neuts Not Reportable 03/03/20 10:31 Hypogranular Neuts Not Reportable 03/03/20 10:31 Smudge Cells Not Reportable 03/03/20 10:31 Toxic Granulation Not Reportable 03/03/20 10:31 Toxic Vacuolation Not Reportable 03/03/20 10:31 Dohle Bodies Not Reportable 03/03/20 10:31 Pelger-Huet Anomaly Not Reportable 03/03/20 10:31 Alea Rods Not Reportable 03/03/20 10:31 Platelet Estimate Consistent w auto 03/03/20 10:31 Clumped Platelets Not Reportable 03/03/20 10:31 Plt Clumps, EDTA Not Reportable 03/03/20 10:31 Large Platelets Not Reportable 03/03/20 10:31 Giant Platelets Not Reportable 03/03/20 10:31 Platelet Satelliting Not Reportable 03/03/20 10:31 Plt Morphology Comment Not Reportable 03/03/20 10:31 RBC Morphology Not Reportable 03/03/20 10:31 Dimorphic RBCs Not Reportable 03/03/20 10:31 Polychromasia Not Reportable 03/03/20 10:31 Hypochromasia 1+ 03/03/20 10:31 Poikilocytosis Not Reportable 03/03/20 10:31 Anisocytosis Not Reportable 03/03/20 10:31 Microcytosis Few 03/03/20 10:31 Macrocytosis Not Reportable 03/03/20 10:31 Spherocytes Not Reportable 03/03/20 10:31 Pappenheimer Bodies Not Reportable 03/03/20 10:31 Sickle Cells Not Reportable 03/03/20 10:31 Target Cells Not Reportable 03/03/20 10:31 Tear Drop Cells Not Reportable 03/03/20 10:31 Ovalocytes Not Reportable 03/03/20 10:31 Stomatocytes Few 03/03/20 10:31 Helmet Cells Not Reportable 03/03/20 10:31 [place] Bodies Not Reportable 03/03/20 10:31 [place] Rings Not Reportable 03/03/20 10:31 [place] Cells Not Reportable 03/03/20 10:31 Bite Cells Not Reportable 03/03/20 10:31 Crenated Cell Not Reportable 03/03/20 10:31 Elliptocytes Not Reportable 03/03/20 10:31 Acanthocytes (Spur) Not Reportable 03/03/20 10:31 Rouleaux Not Reportable 03/03/20 10:31 Hemoglobin C Crystals Not Reportable 03/03/20 10:31 Schistocytes Not Reportable 03/03/20 10:31 Malaria parasites Not Reportable 03/03/20 10:31 Emanuel Bodies Not Reportable 03/03/20 10:31 Hem Pathologist Commnt No 03/03/20 10:31 Sodium 141 mmol/L (137-145) 03/03/20 10:31 Potassium 4.8 mmol/L (3.6-5.0) 03/03/20 10:31 Chloride 100.7 mmol/L (98-107) 03/03/20 10:31 Carbon Dioxide 31 mmol/L (22-30) H 03/03/20 10:31 Anion Gap 14 mmol/L 03/03/20 10:31 BUN 2 mg/dL (9-20) L 03/03/20 10:31 Creatinine 0.5 mg/dL (0.8-1.5) L 03/03/20 10:31 Estimated GFR > 60 ml/min 03/03/20 10:31 BUN/Creatinine Ratio 4 % 03/03/20 10:31 Glucose 91 mg/dL (75-100) 03/03/20 10:31 POC Glucose 86 (70-105) 02/25/20 16:47 Calcium 9.0 mg/dL (8.4-10.2) 03/03/20 10:31 Phosphorus 3.80 mg/dL (2.5-4.5) D 02/26/20 09:18 Magnesium 1.80 mg/dL (1.7-2.3) 02/25/20 05:18 Total Bilirubin 0.40 mg/dL (0.1-1.2) 02/17/20 05:45 AST 10 units/L (5-40) 02/17/20 05:45 ALT 6 units/L (7-56) L 02/17/20 05:45 Alkaline Phosphatase 52 units/L (35-129) 02/17/20 05:45 Total Protein 7.0 g/dL (6.3-8.2) 02/17/20 05:45 Albumin 3.7 g/dL (3.9-5) L 02/17/20 05:45 Albumin/Globulin Ratio 1.1 % 02/17/20 05:45 Lipase 9 units/L (13-60) L 02/16/20 10:28 Urine Color Yellow (Yellow) 02/16/20 Unknown Urine Turbidity Clear (Clear) 02/16/20 Unknown Urine pH 7.0 (5.0-7.0) 02/16/20 Unknown Ur Specific [place] 1.023 (1.003-1.030) 02/16/20 Unknown Urine Protein <15 mg/dl mg/dL (Negative) 02/16/20 Unknown Urine Glucose (UA) Neg mg/dL (Negative) 02/16/20 Unknown Urine Ketones Neg mg/dL (Negative) 02/16/20 Unknown Urine Blood Neg (Negative) 02/16/20 Unknown Urine Nitrite Neg (Negative) 02/16/20 Unknown Urine Bilirubin Neg (Negative) 02/16/20 Unknown Urine Urobilinogen 4.0 mg/dL (<2.0) 02/16/20 Unknown Ur Leukocyte Esterase Tr (Negative) 02/16/20 Unknown Urine WBC (Auto) 7.0 /HPF (0.0-6.0) H 02/16/20 Unknown Urine RBC (Auto) 1.0 /HPF (0.0-6.0) 02/16/20 Unknown U Epithel Cells (Auto) < 1.0 /HPF (0-13.0) 02/16/20 Unknown Hyaline Casts 2 /LPF 02/16/20 Unknown Urine Mucus Few /HPF 02/16/20 Unknown Nasal Screen MRSA (PCR) Positive (Negative) 02/17/20 10:55 Coronavirus (PCR) Negative (Negative) 02/29/20 Unknown Blood Type A POSITIVE 02/22/20 10:12 Antibody Screen Negative 02/22/20 10:12 Microbiology: Microbiology 02/29/20 02:37 Peripheral/Venous Blood Culture - Final NO GROWTH AFTER 5 DAYS 02/29/20 02:42 Peripheral/Venous Blood Culture - Final NO GROWTH AFTER 5 DAYS - Diagnostic Impressions Diagnostic Impressions: Echocardiogram 02/28/20 15:43 Transthoracic Echocardiogram Indication: Tachycardia BP: 100/52 HR: 92 Conclusions *Global left ventricular wall motion and contractility are within normal limits. *Global left ventricular systolic function is normal. *The estimated ejection fraction is 50-55%. *Abnormal left ventricular diastolic filling is observed, consistent with impaired relaxation. *There is no pericardial effusion. Findings Left Ventricle: The left ventricular chamber size is normal. Global left ventricular wall motion and contractility are within normal limits. Global left ventricular systolic function is normal. The estimated ejection fraction is 50-55%. Abnormal left ventricular diastolic filling is observed, consistent with impaired relaxation. Left Atrium: The left atrial chamber size is normal. Right Ventricle: The right ventricular cavity size is normal. Right Atrium: The right atrial cavity size is normal. Aortic Valve: The aortic valve structure is normal. There is no evidence of aortic regurgitation. Mitral Valve: The mitral valve leaflets are mildly thickened. There is no evidence of mitral regurgitation. Tricuspid Valve: The tricuspid valve leaflets are normal. There is trace tricuspid regurgitation. The right ventricular systolic pressure is calculated at 20 mmHg. Pulmonic Valve: The pulmonic valve appears normal. There is trace pulmonic regurgitation. Pericardium: There is no pericardial effusion. Aorta: The aorta appears normal. Venous: The venous system is not well visualized. Measurements Chambers 2D Name Value Normal Range IVSd (2D) 0.93 cm (0.6 - 1.1) LVPWd (2D) 0.99 cm (0.6 - 1.1) LVIDd (2D) 4.54 cm (3.7 - 5.6) LVIDs (2D) 3.56 cm (2 - 3.8) LV FS (2D) 21.58 % - EF Teichholz (2D) 43.84 % - Ao root diameter (2D) 3.26 cm (2 - 3.7) Volumes/Mass Name Value Normal Range LA ESV SP 4CH (A/L) 42.96 ml - LA ESV SP 2CH (A/L) 23.92 ml - LA ESV BP (A/L) 35.47 ml - LA ESV BP (A/L) index 15.7 ml/m2 - LA ESV SP 4CH (MOD) 39.1 ml - LA ESV SP 2CH (MOD) 23.01 ml - LA ESV BP (MOD) 33.07 ml - LA ESV BP (MOD) index 14.63 ml/m2 - Diastolic/Systolic Function Name Value Normal Range MV E-wave Vmax 1 m/sec - MV deceleration time 202.11 msec - MV A-wave Vmax 0.54 m/sec - MV E:A ratio 1.85 ratio - Aortic Valve Name Value Normal Range AV Vmax 1.26 m/sec - AV VTI 20.3 cm - AV peak gradient 6.35 mmHg - AV mean gradient 3.07 mmHg - LVOT diameter 2.04 cm - LVOT Vmax 1.14 m/sec - LVOT VTI 22.15 cm - LVOT peak gradient 5.17 mmHg - LVOT mean gradient 3 mmHg - SV LVOT 72.2 ml - YENIFER (continuity Vmax) 2.94 cm2 - YENIFER (continuity VTI) 3.56 cm2 - Tricuspid Valve Name Value Normal Range TR Vmax 2.05 m/sec - TR peak gradient 17 mmHg - RAP 3 mmHg - RVSP 20 mmHg - Pulmonic Valve/Qp:Qs Name Value Normal Range PV Vmax 1.27 m/sec - PV peak gradient 6.46 mmHg - [place] end-diastolic Vmax 1.44 m/sec - PV acceleration time 129.4 msec - Mcpherson/IV: Voiding Method Condom Catheter IV Catheter Type [Left Hand] Peripheral IV IV Catheter Type [Right Hand] Peripheral IV IV Catheter Type [Left Forearm Peripheral IV ] IV Catheter Type [Right INT / Saline Lock Antecubital] Active Medications - Current Medications Current Medications: Generic Name Dose Route Start Last Admin Trade Name Freq PRN Reason Stop Dose Admin Acetaminophen 650 mg 02/17/20 02:52 02/29/20 05:25 Tylenol PO 650 mg Q4H PRN Administration Pain MILD(1-3)/Fever >100.5/BARRY Benztropine Mesylate 0.5 mg 02/17/20 22:00 03/05/20 09:32 Cogentin PO 0.5 mg BID STEPHEN Administration Bisacodyl 10 mg 02/19/20 10:00 03/05/20 09:32 Dulcolax [place] 10 mg QDAY STPEHEN Administration Clonazepam 2 mg 02/19/20 22:00 03/05/20 09:33 Klonopin PO 2 mg BID STEPHEN Administration Dextrose 50 ml 02/18/20 18:35 D50w (25gm) Syringe IV Q30MIN PRN Hypoglycemia Protocol Divalproex Sodium 500 mg 02/27/20 22:00 03/05/20 09:33 Depakote Er PO 500 mg BID STEPHEN Administration Famotidine 20 mg 02/27/20 10:00 03/05/20 09:34 Pepcid PO 20 mg BID STEPHEN Administration Furosemide 40 mg 03/04/20 10:00 03/05/20 09:32 Lasix IV 40 mg QDAY STEPHEN Administration Haloperidol Lactate 5 mg 02/26/20 10:04 02/28/20 23:46 Haldol IM 5 mg Q6H PRN Administration Agitation Heparin Sodium (Porcine) 5,000 unit 02/17/20 03:00 03/05/20 09:32 Heparin SUB-Q 5,000 unit Q12HR STEPHEN Administration Hydromorphone HCl 0.5 mg 02/16/20 21:50 03/02/20 10:50 Dilaudid IV 0.5 mg Q3H PRN Administration Pain , Severe (7-10) Hydrophilic Ointment 1 applic 02/28/20 08:51 02/28/20 11:36 Vaseline Lip Therapy TP 1 applic DIRECT PRN Administration Dry Lips Ceftriaxone Sodium 2 gm in 100 mls @ 200 mls/hr 02/27/20 17:00 03/05/20 09:32 Rocephin/Ns 2 Gm/100 Ml IV 03/11/20 10:29 200 mls/hr Q24HR STEPHEN Administration Metoclopramide HCl 10 mg 03/05/20 08:13 Reglan IV Q8H PRN Nausea And Vomiting Mupirocin 1 applic 02/18/20 22:00 03/05/20 09:34 Bactroban 2% NS 1 applic BID STEPHEN Administration Ondansetron HCl 4 mg 02/17/20 02:52 02/22/20 22:13 Zofran IV 4 mg Q8H PRN Administration Nausea And Vomiting Phenol 1 spray 02/24/20 16:23 Chloraseptic MM PRN PRN Sore Throat Senna 17.2 mg 03/05/20 10:00 03/05/20 09:33 Senokot PO 17.2 mg BID STEPHEN Administration Sodium Chloride 10 ml 02/17/20 10:00 03/05/20 09:35 Sodium Chloride Flush Syringe 10 Ml IV 10 ml BID STEPHEN Administration Sodium Chloride 10 ml 02/17/20 02:52 03/03/20 05:55 Sodium Chloride Flush Syringe 10 Ml IV 10 ml PRN PRN Administration LINE FLUSH Trazodone HCl 100 mg 02/17/20 22:00 03/04/20 23:00 Desyrel PO 100 mg HS STEPHEN Administration Nutrition/Malnutrition Assess - Dietary Evaluation Nutrition/Malnutrition Findings: Nutrition Notes Start: 02/25/20 14:42 Freq: Status: Active Protocol: Document 03/04/20 15:21 LM (Rec: 03/04/20 15:26 LM [id number]) Nutrition Notes Initial or Follow up Reassessment Current Diagnosis CKD(stage I-IV),Hypertension Other Pertinent Diagnosis SBO, s/p exp lap/lysis of adhesions, seizures, down syndrome Current Diet full liquid Labs/Tests Reviewed Pertinent Medications Reglan Height 5 ft 10 in Weight 110 kg [place] Body Weight (kg) 75.45 BMI 34.7 Weight Status Obese Subjective/Other Information Per RN pt is tolerating full liquids. Pt is eating drinking the milk and eating apple sauce and ice cream. MD does not want to advance diet until pt has BM. Will order ONS. Burn Absent Trauma Absent Current % PO Fair (50-74%) Minimum of two criteria No Energy Intake (severe) < or equal to 50% Estimated Energy Requirement > or equal to 5 days #1 Nutrition Diagnosis Inadequate oral intake As Evidenced by Signs and Symptoms pt on full liquds Diagnosis Progress(for reassessment Improved documentation) Is patient on ventilator? No Is Patient Ambulatory and/or Out of Bed Yes REE-(Spink-St. Jeor-ambulatory/OOB) [ 2744.625 [id number]] Kcal/Kg value to use for calculation 20 Approximate Energy Requirements Using 2200 kcal/Kg Calculation Used for Recommendations Kcal/kg Additional Notes Protein: 74-93g (0.8-1g/kg using AdjBW 93kg) Fluid: 1 ml/kcal Nutrition Intervention Change Diet Order: diet advancement when medically feasible Add Supplement/Snack (indicate name/kcal Ensure Enlive BID /protein ) Provides kCal: 700 Provides Protein (gm) 40 Goal #1 diet tolerance/advancement Follow-Up By: 03/06/20 Additional Comments F/U for diet advancement, intakes
--- NOTE | 2020-03-05 13:56 | Progress Note ---
Assessment and Plan Assessment and plan: 19-year-old -[place] Islander male in no acute distress nontoxic in appearance presents from residential stating that he had nausea and vomiting for 2 days. Patient has a psychiatric history of schizophrenia disorder bipolar, hypertension and Down syndrome. Patient comes in afebrile. * s/p ex lap and ЕЛЕНА (02/23/20) - POD#10. Hospital course complicated over p.m. by generalized edema. Most likely from fluids. Otherwise no event new events patient eating fairly well have bowel movement. - Patient Problems (1) Congestive heart failure (CHF) Current Visit: Yes Status: Acute Plan to address problem: Patient with congestive heart failure ejection fraction 20 to 25%. Currently hemodynamically stable. No JVD trace edema no crackles. Continue medical management. Patient on diuretics but not on ARLIN inhibitor or beta-cesar because of recent surgery. Patient now tolerating meals well. Blood pressure still on the low side. We will continue to hold antihypertensives. Coreg and ARLIN inhibitor. Follow-up chest x-ray unremarkable for volume overload or pulmonary edema. Clinical exam patient heart failure appears to be well compensated. Will add Lasix today decrease any fluids patient may have. Will give extra dose of the Lasix today. Reglan adjusted per surgery. (2) Small bowel obstruction Current Visit: Yes Status: Acute Plan to address problem: Patient small bowel obstruction status post surgical correction and lysis of adhesions. Patient wound looks well. Spoke to surgical consult in detail. Plan was explained in detail. Agree with plan. Patient lives in personal alf. Once patient more stable for discharge which I can anticipate on Tuesday will attempt to make sure patient has a place for stable environment. May be a candidate for skilled nurse facility the personal alf most likely cannot meet patient's needs. Patient [facility]. Mother would want patient to go back to that facility prior to alf. Per surgery advanced to soft diet patient with good bowel sounds postop day 11 still no obvious suggestion to the problem in the abdomen. (3) Bacteremia due to Gram-negative bacteria Current Visit: Yes Status: Acute Plan to address problem: Blood cultures Klebsiella sensitive to Rocephin. Blood culture gram-negative rods. Covered with Rocephin. Still has low-grade fever (4) Hyponatremia Current Visit: Yes Status: Acute (5) Small bowel obstruction due to adhesions Current Visit: Yes Status: Acute Plan to address problem: Secondary to adhesions exploratory lap with lysis of adhesions. Patient hemodynamically stable has bowel sounds this post bowel movement. Patient will be going to nursing facility yet cell [facility]. (6) COLUMBA (acute kidney injury) Current Visit: No Status: Acute Plan to address problem: Prerenal azotemia has resolved. (7) Acute respiratory failure Current Visit: No Status: Resolved Qualifiers: Respiratory failure complication: hypoxia Qualified Code(s): J96.01 - Acute respiratory failure with hypoxia Plan to address problem: Secondary to pulmonary edema patient was on high flow O2 has been weaned down to nasal cannula today much better. Patient tolerating de-escalation of oxygen well. History Interval history: Patient seen and examined, answers questions much more awake today asking to go home. Hospitalist Physical - Physical exam Narrative exam: VITAL SIGNS: Reviewed. GENERAL: The patient appears normally developed, obese vital signs as documented. HEAD: No signs of head trauma. EYES: Pupils are equal. Extraocular motions intact. EARS: Hearing grossly intact. MOUTH: Oropharynx is normal. NECK: No adenopathy, no JVD. CHEST: Chest with clear breath sounds bilaterally. No wheezes, rales, or rhonchi. CARDIAC: Regular rate and rhythm. S1 and S2, without murmurs, gallops, or rubs. VASCULAR: +1 pitting edema bilateral upper extremity. Peripheral pulses normal and equal in all extremities. ABDOMEN: Hypoactive bowel sounds. Geovanny noted. No dehiscence noted. Abdominal binder in place MUSCULOSKELETAL: Good range of motion of all major joints. Extremities without clubbing, cyanosis. +1 pitting edema bilateral upper extremity. NEUROLOGIC EXAM: Alert and oriented x 2 lethargic follows commands speech is normal. Follows commands. PSYCHIATRIC: Mood normal. SKIN: detail exam as documented in skin assessment - Constitutional Vitals: Temp Pulse Resp BP Pulse Ox 97.2 F L 80 17 90/41 98 03/05/20 11:20 03/05/20 11:20 03/05/20 11:20 03/05/20 11:20 03/05/20 11:20 General appearance: Present: no acute distress, well-nourished Results - Labs CBC & Chem 7: 03/03/20 10:31 03/03/20 10:31 Labs: Laboratory Last Values WBC 7.6 K/mm3 (4.5-11.0) 03/03/20 10:31 RBC 3.53 M/mm3 (3.65-5.03) L 03/03/20 10:31 Hgb 10.6 gm/dl (11.8-15.2) L 03/03/20 10:31 Hct 32.3 % (35.5-45.6) L 03/03/20 10:31 MCV 91 fl (84-94) 03/03/20 10:31 MCH 30 pg (28-32) 03/03/20 10:31 MCHC 33 % (32-34) 03/03/20 10:31 RDW 15.7 % (13.2-15.2) H 03/03/20 10:31 Plt Count 349 K/mm3 (140-440) 03/03/20 10:31 Lymph % (Auto) Commodity Management Specialist 02/29/20 09:09 Maverick % (Auto) Commodity Management Specialist 02/29/20 09:09 Eos % (Auto) Commodity Management Specialist 02/29/20 09:09 Baso % (Auto) Commodity Management Specialist 02/29/20 09:09 Lymph # Commodity Management Specialist 02/29/20 09:09 Maverick # Commodity Management Specialist 02/29/20 09:09 Eos # Commodity Management Specialist 02/29/20 09:09 Baso # Commodity Management Specialist 02/29/20 09:09 Add Manual Diff Complete 03/03/20 10:31 Total Counted 100 03/03/20 10:31 Seg Neutrophils % Commodity Management Specialist 02/29/20 09:09 Seg Neuts % (Manual) 76.0 % (40.0-70.0) H 03/03/20 10:31 Band Neutrophils % 1.0 % 03/03/20 10:31 Lymphocytes % (Manual) 15.0 % (13.4-35.0) 03/03/20 10:31 Reactive Lymphs % (Man) 0 % 03/03/20 10:31 Monocytes % (Manual) 7.0 % (0.0-7.3) 03/03/20 10:31 Eosinophils % (Manual) 0 % (0.0-4.3) 03/03/20 10:31 Basophils % (Manual) 0 % (0.0-1.8) 03/03/20 10:31 Metamyelocytes % 1.0 % 03/03/20 10:31 Myelocytes % 0 % 03/03/20 10:31 Promyelocytes % 0 % 03/03/20 10:31 Blast Cells % 0 % 03/03/20 10:31 Nucleated RBC % 1.0 % (0.0-0.9) H 03/03/20 10:31 Seg Neutrophils # Commodity Management Specialist 02/29/20 09:09 Seg Neutrophils # Man 5.8 K/mm3 (1.8-7.7) 03/03/20 10:31 Band Neutrophils # 0.1 K/mm3 03/03/20 10:31 Lymphocytes # (Manual) 1.1 K/mm3 (1.2-5.4) L 03/03/20 10:31 Abs React Lymphs (Man) 0.0 K/mm3 03/03/20 10:31 Monocytes # (Manual) 0.5 K/mm3 (0.0-0.8) 03/03/20 10:31 Eosinophils # (Manual) 0.0 K/mm3 (0.0-0.4) 03/03/20 10:31 Basophils # (Manual) 0.0 K/mm3 (0.0-0.1) 03/03/20 10:31 Metamyelocytes # 0.1 K/mm3 03/03/20 10:31 Myelocytes # 0.0 K/mm3 03/03/20 10:31 Promyelocytes # 0.0 K/mm3 03/03/20 10:31 Blast Cells # 0.0 K/mm3 03/03/20 10:31 WBC Morphology Not Reportable 03/03/20 10:31 Hypersegmented Neuts Not Reportable 03/03/20 10:31 Hyposegmented Neuts Not Reportable 03/03/20 10:31 Hypogranular Neuts Not Reportable 03/03/20 10:31 Smudge Cells Not Reportable 03/03/20 10:31 Toxic Granulation Not Reportable 03/03/20 10:31 Toxic Vacuolation Not Reportable 03/03/20 10:31 Dohle Bodies Not Reportable 03/03/20 10:31 Pelger-Huet Anomaly Not Reportable 03/03/20 10:31 Alea Rods Not Reportable 03/03/20 10:31 Platelet Estimate Consistent w auto 03/03/20 10:31 Clumped Platelets Not Reportable 03/03/20 10:31 Plt Clumps, EDTA Not Reportable 03/03/20 10:31 Large Platelets Not Reportable 03/03/20 10:31 Giant Platelets Not Reportable 03/03/20 10:31 Platelet Satelliting Not Reportable 03/03/20 10:31 Plt Morphology Comment Not Reportable 03/03/20 10:31 RBC Morphology Not Reportable 03/03/20 10:31 Dimorphic RBCs Not Reportable 03/03/20 10:31 Polychromasia Not Reportable 03/03/20 10:31 Hypochromasia 1+ 03/03/20 10:31 Poikilocytosis Not Reportable 03/03/20 10:31 Anisocytosis Not Reportable 03/03/20 10:31 Microcytosis Few 03/03/20 10:31 Macrocytosis Not Reportable 03/03/20 10:31 Spherocytes Not Reportable 03/03/20 10:31 Pappenheimer Bodies Not Reportable 03/03/20 10:31 Sickle Cells Not Reportable 03/03/20 10:31 Target Cells Not Reportable 03/03/20 10:31 Tear Drop Cells Not Reportable 03/03/20 10:31 Ovalocytes Not Reportable 03/03/20 10:31 Stomatocytes Few 03/03/20 10:31 Helmet Cells Not Reportable 03/03/20 10:31 Woodard-Deadwood Bodies Not Reportable 03/03/20 10:31 Musella Rings Not Reportable 03/03/20 10:31 Kaylyn Cells Not Reportable 03/03/20 10:31 Bite Cells Not Reportable 03/03/20 10:31 Crenated Cell Not Reportable 03/03/20 10:31 Elliptocytes Not Reportable 03/03/20 10:31 Acanthocytes (Spur) Not Reportable 03/03/20 10:31 Rouleaux Not Reportable 03/03/20 10:31 Hemoglobin C Crystals Not Reportable 03/03/20 10:31 Schistocytes Not Reportable 03/03/20 10:31 Malaria parasites Not Reportable 03/03/20 10:31 Emanuel Bodies Not Reportable 03/03/20 10:31 Hem Pathologist Commnt No 03/03/20 10:31 Sodium 141 mmol/L (137-145) 03/03/20 10:31 Potassium 4.8 mmol/L (3.6-5.0) 03/03/20 10:31 Chloride 100.7 mmol/L (98-107) 03/03/20 10:31 Carbon Dioxide 31 mmol/L (22-30) H 03/03/20 10:31 Anion Gap 14 mmol/L 03/03/20 10:31 BUN 2 mg/dL (9-20) L 03/03/20 10:31 Creatinine 0.5 mg/dL (0.8-1.5) L 03/03/20 10:31 Estimated GFR > 60 ml/min 03/03/20 10:31 BUN/Creatinine Ratio 4 % 03/03/20 10:31 Glucose 91 mg/dL (75-100) 03/03/20 10:31 POC Glucose 86 (70-105) 02/25/20 16:47 Calcium 9.0 mg/dL (8.4-10.2) 03/03/20 10:31 Phosphorus 3.80 mg/dL (2.5-4.5) D 02/26/20 09:18 Magnesium 1.80 mg/dL (1.7-2.3) 02/25/20 05:18 Total Bilirubin 0.40 mg/dL (0.1-1.2) 02/17/20 05:45 AST 10 units/L (5-40) 02/17/20 05:45 ALT 6 units/L (7-56) L 02/17/20 05:45 Alkaline Phosphatase 52 units/L (35-129) 02/17/20 05:45 Total Protein 7.0 g/dL (6.3-8.2) 02/17/20 05:45 Albumin 3.7 g/dL (3.9-5) L 02/17/20 05:45 Albumin/Globulin Ratio 1.1 % 02/17/20 05:45 Lipase 9 units/L (13-60) L 02/16/20 10:28 Urine Color Yellow (Yellow) 02/16/20 Unknown Urine Turbidity Clear (Clear) 02/16/20 Unknown Urine pH 7.0 (5.0-7.0) 02/16/20 Unknown Ur Specific [place] 1.023 (1.003-1.030) 02/16/20 Unknown Urine Protein <15 mg/dl mg/dL (Negative) 02/16/20 Unknown Urine Glucose (UA) Neg mg/dL (Negative) 02/16/20 Unknown Urine Ketones Neg mg/dL (Negative) 02/16/20 Unknown Urine Blood Neg (Negative) 02/16/20 Unknown Urine Nitrite Neg (Negative) 02/16/20 Unknown Urine Bilirubin Neg (Negative) 02/16/20 Unknown Urine Urobilinogen 4.0 mg/dL (<2.0) 02/16/20 Unknown Ur Leukocyte Esterase Tr (Negative) 02/16/20 Unknown Urine WBC (Auto) 7.0 /HPF (0.0-6.0) H 02/16/20 Unknown Urine RBC (Auto) 1.0 /HPF (0.0-6.0) 02/16/20 Unknown U Epithel Cells (Auto) < 1.0 /HPF (0-13.0) 02/16/20 Unknown Hyaline Casts 2 /LPF 02/16/20 Unknown Urine Mucus Few /HPF 02/16/20 Unknown Nasal Screen MRSA (PCR) Positive (Negative) 02/17/20 10:55 Coronavirus (PCR) Negative (Negative) 02/29/20 Unknown Blood Type A POSITIVE 02/22/20 10:12 Antibody Screen Negative 02/22/20 10:12 Microbiology: Microbiology 02/29/20 02:37 Peripheral/Venous Blood Culture - Final NO GROWTH AFTER 5 DAYS 02/29/20 02:42 Peripheral/Venous Blood Culture - Final NO GROWTH AFTER 5 DAYS - Diagnostic Impressions Diagnostic Impressions: Echocardiogram 02/28/20 15:43 Transthoracic Echocardiogram Indication: Tachycardia BP: 100/52 HR: 92 Conclusions *Global left ventricular wall motion and contractility are within normal limits. *Global left ventricular systolic function is normal. *The estimated ejection fraction is 50-55%. *Abnormal left ventricular diastolic filling is observed, consistent with impaired relaxation. *There is no pericardial effusion. Findings Left Ventricle: The left ventricular chamber size is normal. Global left ventricular wall motion and contractility are within normal limits. Global left ventricular systolic function is normal. The estimated ejection fraction is 50-55%. Abnormal left ventricular diastolic filling is observed, consistent with impaired relaxation. Left Atrium: The left atrial chamber size is normal. Right Ventricle: The right ventricular cavity size is normal. Right Atrium: The right atrial cavity size is normal. Aortic Valve: The aortic valve structure is normal. There is no evidence of aortic regurgitation. Mitral Valve: The mitral valve leaflets are mildly thickened. There is no evidence of mitral regurgitation. Tricuspid Valve: The tricuspid valve leaflets are normal. There is trace tricuspid regurgitation. The right ventricular systolic pressure is calculated at 20 mmHg. Pulmonic Valve: The pulmonic valve appears normal. There is trace pulmonic regurgitation. Pericardium: There is no pericardial effusion. Aorta: The aorta appears normal. Venous: The venous system is not well visualized. Measurements Chambers 2D Name Value Normal Range IVSd (2D) 0.93 cm (0.6 - 1.1) LVPWd (2D) 0.99 cm (0.6 - 1.1) LVIDd (2D) 4.54 cm (3.7 - 5.6) LVIDs (2D) 3.56 cm (2 - 3.8) LV FS (2D) 21.58 % - EF Teichholz (2D) 43.84 % - Ao root diameter (2D) 3.26 cm (2 - 3.7) Volumes/Mass Name Value Normal Range LA ESV SP 4CH (A/L) 42.96 ml - LA ESV SP 2CH (A/L) 23.92 ml - LA ESV BP (A/L) 35.47 ml - LA ESV BP (A/L) index 15.7 ml/m2 - LA ESV SP 4CH (MOD) 39.1 ml - LA ESV SP 2CH (MOD) 23.01 ml - LA ESV BP (MOD) 33.07 ml - LA ESV BP (MOD) index 14.63 ml/m2 - Diastolic/Systolic Function Name Value Normal Range MV E-wave Vmax 1 m/sec - MV deceleration time 202.11 msec - MV A-wave Vmax 0.54 m/sec - MV E:A ratio 1.85 ratio - Aortic Valve Name Value Normal Range AV Vmax 1.26 m/sec - AV VTI 20.3 cm - AV peak gradient 6.35 mmHg - AV mean gradient 3.07 mmHg - LVOT diameter 2.04 cm - LVOT Vmax 1.14 m/sec - LVOT VTI 22.15 cm - LVOT peak gradient 5.17 mmHg - LVOT mean gradient 3 mmHg - SV LVOT 72.2 ml - YENIFER (continuity Vmax) 2.94 cm2 - YENIFER (continuity VTI) 3.56 cm2 - Tricuspid Valve Name Value Normal Range TR Vmax 2.05 m/sec - TR peak gradient 17 mmHg - RAP 3 mmHg - RVSP 20 mmHg - Pulmonic Valve/Qp:Qs Name Value Normal Range PV Vmax 1.27 m/sec - PV peak gradient 6.46 mmHg - OK end-diastolic Vmax 1.44 m/sec - PV acceleration time 129.4 msec - Mcpherson/IV: Voiding Method Condom Catheter IV Catheter Type [Left Hand] Peripheral IV IV Catheter Type [Right Hand] Peripheral IV IV Catheter Type [Left Forearm Peripheral IV ] IV Catheter Type [Right INT / Saline Lock Antecubital] Active Medications - Current Medications Current Medications: Generic Name Dose Route Start Last Admin Trade Name Freq PRN Reason Stop Dose Admin Acetaminophen 650 mg 02/17/20 02:52 02/29/20 05:25 Tylenol PO 650 mg Q4H PRN Administration Pain MILD(1-3)/Fever >100.5/BARRY Benztropine Mesylate 0.5 mg 02/17/20 22:00 03/05/20 09:32 Cogentin PO 0.5 mg BID STEPHEN Administration Bisacodyl 10 mg 02/19/20 10:00 03/05/20 09:32 Dulcolax OK 10 mg QDAY STEPHEN Administration Clonazepam 2 mg 02/19/20 22:00 03/05/20 09:33 Klonopin PO 2 mg BID STEPHEN Administration Dextrose 50 ml 02/18/20 18:35 D50w (25gm) Syringe IV Q30MIN PRN Hypoglycemia Protocol Divalproex Sodium 500 mg 02/27/20 22:00 03/05/20 09:33 Depakote Er PO 500 mg BID STEPEHN Administration Famotidine 20 mg 02/27/20 10:00 03/05/20 09:34 Pepcid PO 20 mg BID STEPHEN Administration Furosemide 40 mg 03/04/20 10:00 03/05/20 09:32 Lasix IV 40 mg QDAY STEPHEN Administration Haloperidol Lactate 5 mg 02/26/20 10:04 02/28/20 23:46 Haldol IM 5 mg Q6H PRN Administration Agitation Heparin Sodium (Porcine) 5,000 unit 02/17/20 03:00 03/05/20 09:32 Heparin SUB-Q 5,000 unit Q12HR STEPHEN Administration Hydromorphone HCl 0.5 mg 02/16/20 21:50 03/02/20 10:50 Dilaudid IV 0.5 mg Q3H PRN Administration Pain , Severe (7-10) Hydrophilic Ointment 1 applic 02/28/20 08:51 02/28/20 11:36 Vaseline Lip Therapy TP 1 applic DIRECT PRN Administration Dry Lips Ceftriaxone Sodium 2 gm in 100 mls @ 200 mls/hr 02/27/20 17:00 03/05/20 09:32 Rocephin/Ns 2 Gm/100 Ml IV 03/11/20 10:29 200 mls/hr Q24HR STEPHEN Administration Metoclopramide HCl 10 mg 03/05/20 08:13 Reglan IV Q8H PRN Nausea And Vomiting Mupirocin 1 applic 02/18/20 22:00 03/05/20 09:34 Bactroban 2% NS 1 applic BID STEPHEN Administration Ondansetron HCl 4 mg 02/17/20 02:52 02/22/20 22:13 Zofran IV 4 mg Q8H PRN Administration Nausea And Vomiting Phenol 1 spray 02/24/20 16:23 Chloraseptic MM PRN PRN Sore Throat Senna 17.2 mg 03/05/20 10:00 03/05/20 09:33 Senokot PO 17.2 mg BID STEPHEN Administration Sodium Chloride 10 ml 02/17/20 10:00 03/05/20 09:35 Sodium Chloride Flush Syringe 10 Ml IV 10 ml BID STEPHEN Administration Sodium Chloride 10 ml 02/17/20 02:52 03/03/20 05:55 Sodium Chloride Flush Syringe 10 Ml IV 10 ml PRN PRN Administration LINE FLUSH Trazodone HCl 100 mg 02/17/20 22:00 03/04/20 23:00 Desyrel PO 100 mg HS STEPHEN Administration Nutrition/Malnutrition Assess - Dietary Evaluation Nutrition/Malnutrition Findings: Nutrition Notes Start: 02/25/20 14:42 Freq: Status: Active Protocol: Document 03/04/20 15:21 LM (Rec: 03/04/20 15:26 LM [id number]) Nutrition Notes Initial or Follow up Reassessment Current Diagnosis CKD(stage I-IV),Hypertension Other Pertinent Diagnosis SBO, s/p exp lap/lysis of adhesions, seizures, down syndrome Current Diet full liquid Labs/Tests Reviewed Pertinent Medications Reglan Height 5 ft 10 in Weight 110 kg [place] Body Weight (kg) 75.45 BMI 34.7 Weight Status Obese Subjective/Other Information Per RN pt is tolerating full liquids. Pt is eating drinking the milk and eating apple sauce and ice cream. MD does not want to advance diet until pt has BM. Will order ONS. Burn Absent Trauma Absent Current % PO Fair (50-74%) Minimum of two criteria No Energy Intake (severe) < or equal to 50% Estimated Energy Requirement > or equal to 5 days #1 Nutrition Diagnosis Inadequate oral intake As Evidenced by Signs and Symptoms pt on full liquds Diagnosis Progress(for reassessment Improved documentation) Is patient on ventilator? No Is Patient Ambulatory and/or Out of Bed Yes REE-([place]-St. Jeor-ambulatory/OOB) [ 2744.625 [id number]] Kcal/Kg value to use for calculation 20 Approximate Energy Requirements Using 2200 kcal/Kg Calculation Used for Recommendations Kcal/kg Additional Notes Protein: 74-93g (0.8-1g/kg using AdjBW 93kg) Fluid: 1 ml/kcal Nutrition Intervention Change Diet Order: diet advancement when medically feasible Add Supplement/Snack (indicate name/kcal Ensure Enlive BID /protein ) Provides kCal: 700 Provides Protein (gm) 40 Goal #1 diet tolerance/advancement Follow-Up By: 03/06/20 Additional Comments F/U for diet advancement, intakes
[2020-03-05] MEDS: traZODone 100 MG TAB PO SCH (22:11)
[2020-03-06] MEDS: SENNOSIDES 8.6 MG TAB PO SCH (09:54)
[2020-03-06] MEDS: FAMOTIDINE 20 MG TAB PO SCH (09:54)
[2020-03-06] MEDS: DIVALPROEX ER 500 MG TAB PO SCH (09:54)
[2020-03-06] MEDS: BENZTROPINE 0.5 MG TAB PO SCH (09:55)
[2020-03-06] MEDS: cefTRIAXone/NS 2 GM/100 ML 2 GM/100 ML BAG IV SCH (09:55)
[2020-03-06] MEDS: HEPARIN 5,000 UNIT/1 ML VIAL SUB-Q SCH (09:56)
[2020-03-06] MEDS: MUPIROCIN 2% OINT 22 GM NS SCH (09:57)
[2020-03-06] MEDS: FUROSEMIDE 40 MG/4 ML INJ IV SCH (10:00)
--- NOTE | 2020-03-06 13:15 | Discharge Summary ---
Providers - Providers Date of Admission: 02/18/20 10:49 Attending physician: KENAN BARAKAT MD 02/16/20 16:46 Consult to Physician [CONS] Urgent Comment: Consulting Provider: KARLY LOYA Physician Instructions: Reason For Exam: Small bowel obstruction 03/04/20 08:41 Physical Therapy Evaluation and Treat [CONS] Routine Comment: Reason For Exam: debility Primary care physician: DEBEAKER Hospitalization Reason for admission: abdominal pain Condition: Stable Hospital course: 19-year-old -[place] male in no acute distress nontoxic in appearance [facility] stating that he had nausea and vomiting for 2 days. Patient has a psychiatric history of schizophrenia disorder bipolar, hypertension and Down syndrome. Patient comes in afebrile. * s/p ex lap and ЕЛЕНА (02/23/20) - POD#10. Hospital course complicated over p.m. by generalized edema. Most likely from fluids. Otherwise no event new events patient eating fairly well have bowel movement. - Patient Problems (1) Congestive heart failure (CHF) Current Visit: Yes Status: Acute Plan to address problem: Patient with congestive heart failure ejection fraction 20 to 25%. Currently hemodynamically stable. No JVD trace edema no crackles. Continue medical management. Patient on diuretics but not on ARLIN inhibitor or beta-cesar because of recent surgery. Patient now tolerating meals well. BP meds were adjusted due to Hypotension. Follow-up chest x-ray unremarkable for volume overload or pulmonary edema. Clinical exam patient heart failure appears to be well compensated. Will add Lasix today decrease any fluids patient may have. Will give extra dose of the Lasix. Reglan adjusted per surgery. (2) Small bowel obstruction Current Visit: Yes Status: Acute Plan to address problem: Patient small bowel obstruction status post surgical correction and lysis of adhesions. Patient wound looks well. Spoke to surgical consult in detail. Plan was explained in detail. Agree with plan. Patient lives in personal assisted. Once patient more stable for discharge which I can anticipate on Tuesday will attempt to make sure patient has a place for stable environment. May be a candidate for skilled nurse facility the personal assisted most likely cannot meet patient's needs. Patient had a recent stay at custodial facility inside [facility]. Mother would want patient to go back to that facility prior to assisted. Per surgery advanced to soft diet patient with good bowel sounds postop day 11 still no obvious suggestion to the problem in the abdomen. and was cleared for discharge (3) Bacteremia due to Gram-negative bacteria Current Visit: Yes Status: Acute Plan to address problem: Blood cultures Klebsiella sensitive to Rocephin. Blood culture gram-negative rods. Covered with Rocephin. (4) Hyponatremia Current Visit: Yes Status: Acute (5) Small bowel obstruction due to adhesions Current Visit: Yes Status: Acute Plan to address problem: Secondary to adhesions exploratory lap with lysis of adhesions. Patient hemodynamically stable has bowel sounds this post bowel movement. returned to his facility as SNF was not accepting of him (6) COLUMBA (acute kidney injury) secondary to vasomotor nephropathy Current Visit: No Status: Acute Plan to address problem: Prerenal azotemia has resolved. (7) Acute respiratory failure Current Visit: No Status: Resolved Qualifiers: Respiratory failure complication: hypoxia Qualified Code(s): J96.01 - Acute respiratory failure with hypoxia Plan to address problem: Secondary to pulmonary edema patient was on high flow O2 has been weaned down to nasal cannula today much better. Patient tolerating de-escalation of oxygen well. Disposition: DC/TX-06 HOME UNDER HOME [facility] Time spent for discharge: 35 MINS Core Measure Documentation - Palliative Care Palliative Care/ Comfort Measures: Not Applicable - Core Measures Any of the following diagnoses?: none Exam - Physical Exam Narrative exam: VITAL SIGNS: Reviewed. GENERAL: The patient appears normally developed, obese vital signs as documented. HEAD: No signs of head trauma. EYES: Pupils are equal. Extraocular motions intact. EARS: Hearing grossly intact. MOUTH: Oropharynx is normal. NECK: No adenopathy, no JVD. CHEST: Chest with clear breath sounds bilaterally. No wheezes, rales, or rhonchi. CARDIAC: Regular rate and rhythm. S1 and S2, without murmurs, gallops, or rubs. VASCULAR: +1 pitting edema bilateral upper extremity. Peripheral pulses normal and equal in all extremities. ABDOMEN: Hypoactive bowel sounds. [place] noted. No dehiscence noted. Abdominal binder in place MUSCULOSKELETAL: Good range of motion of all major joints. Extremities without clubbing, cyanosis. +1 pitting edema bilateral upper extremity. NEUROLOGIC EXAM: Alert and oriented x 2 lethargic follows commands speech is normal. Follows commands. PSYCHIATRIC: Mood normal. SKIN: detail exam as documented in skin assessment - Constitutional Vitals: Temp Pulse Resp BP Pulse Ox 98.7 F 84 20 109/62 100 03/06/20 11:27 03/06/20 11:27 03/06/20 11:27 03/06/20 11:27 03/06/20 11:27 Plan Activity: advance as tolerated, fall precautions Diet: low fat, per dietitian instruction, advance as tolerated Special Instructions: record daily weights, record daily BP diary Follow up with: JONG BEYER MD [Primary Care Provider] - 3-5 Days ASHISH HARVEY MD [Staff Physician] - 7 Days Prescriptions: Mupirocin [Bactroban 2% OINT] 1 applic NS BID #1 tube Divalproex ER [Depakote ER] 500 mg PO BID #60 bisacodyL [Dulcolax tab] 10 mg PO QDAY #14 tablet clonazePAM [KlonoPIN] 2 mg PO BID #30 Famotidine [Pepcid] 20 mg PO BID #60 tablet Sennosides Tab [Senokot] 17.2 mg PO BID #30 tablet
[2020-03-06 18:41] VITALS: BP 119/51
== END 2020-03-06 19:35 | disposition home health service (06) | DRG 335 ==
LOC: ED 09:46 → 4A 17:23 → OBSVTOIN 02-18 10:49
PROVIDERS: ADMIT Internal Medicine; ATTEND Internal Medicine
PROC: 0DNW0ZZ Release Peritoneum, Open Approach (ICD-10-PCS; principal; 2020-02-23)
PROC: 5A1935Z Respiratory Ventilation, Less than 24 Consecutive Hours (ICD-10-PCS; 2020-02-23)
PROC: 0BH17EZ Insertion of Endotracheal Airway into Trachea, Via Natural or Artificial Opening (ICD-10-PCS; 2020-02-23)
DX: K56.50 Intestinal adhesions [bands], unspecified as to partial versus complete obstruction (principal); J96.00 Acute respiratory failure, unspecified whether with hypoxia or hypercapnia; E87.5 Hyperkalemia; E87.0 Hyperosmolality and hypernatremia; F20.9 Schizophrenia, unspecified; F31.9 Bipolar disorder, unspecified; K21.9 Gastro-esophageal reflux disease without esophagitis; E16.2 Hypoglycemia, unspecified; F70 Mild intellectual disabilities; E66.9 Obesity, unspecified; Z68.33 Body mass index [BMI] 33.0-33.9, adult; Z71.3 Dietary counseling and surveillance; I95.9 Hypotension, unspecified; R78.81 Bacteremia; I11.0 Hypertensive heart disease with heart failure; I50.9 Heart failure, unspecified; N17.9 Acute kidney failure, unspecified; Z11.59 Encounter for screening for other viral diseases
CPT/HCPCS: 36415; 71045; 74018; 74177; 74248; 80048; 80053; 81001; 82962; 83690; 83735; 84100; 85007; 85014; 85018; 85025; 85027; 86850; 86900; 86901; 87040; 87076; 87186; 87641; 93306; 94760; G0378; J0330; J0690; J0696; J1100; J1170; J1630; J1644; J1940; J2250; J2370; J2405; J2543; J2704; J2710; J2765; J3475; J3486; J7030; J7040; J7042; J7120; Q0162; Q9963; Q9967; U0003-CS

== ENCOUNTER 2020-06-29 21:46 | Emergency (ER) | payer MEDICAID ==
--- NOTE | 2020-06-29 22:22 | Emergency Department Report ---
HPI - General Chief Complaint: Psych PUI?: No Time Seen by Provider: 06/29/20 22:09 - HPI HPI: Room 12 The patient is a 20-year-old male present with a chief complaint of "I am happy with [facility]." The patient was brought into the ED by EMS from a [facility] initially stating that he was hearing voices to meet his mom, dad and sister. However during my interview the patient denied auditory visual hallucinations. Patient denies suicidal or homicidal ideation. When asked why came to the emergency department the patient states "I do not like the place on that." Patient would not give further details on why he does not like the [facility] ED Past Medical Hx - Past Medical History Hx Heart Attack/AMI: No (EF 25-30% on recent TTE) Hx Renal Disease: Yes (ARF requiring HD this admission now improved) Hx Seizures: Yes Hx Psychiatric Treatment: Yes (schizo affective disorder/bipolar) Hx Asthma: No (Hx) Additional medical history: down syndrome - Surgical History Hx Pacemaker: No Hx Internal Defibrillator: No - Family History Family history: no significant - Social History Smoking Status: Never Smoker Substance Use Type: None - Medications Home Medications: Home Medications Medication Instructions Recorded Confirmed Last Taken Type Benztropine [Cogentin] 0.5 mg PO BID 05/17/19 06/30/20 1 Day Ago History ~06/29/20 traZODone [Desyrel] 100 mg PO HS 06/05/19 06/30/20 1 Day Ago History ~06/29/20 Psyllium Seed (with Sugar) 1 each PO BID 02/17/20 06/30/20 1 Day Ago History [Metamucil] ~06/29/20 Simethicone [Bicarsim] 40 mg PO TID 02/17/20 06/30/20 1 Day Ago History ~06/29/20 Divalproex ER [Depakote ER] 500 mg PO BID #60 03/06/20 06/30/20 1 Day Ago Rx ~06/29/20 Famotidine [Pepcid] 20 mg PO BID #60 tablet 03/06/20 06/30/20 1 Day Ago Rx ~06/29/20 Mupirocin [Bactroban 2% OINT] 1 applic NS BID #1 tube 03/06/20 06/30/20 1 Day Ago Rx ~06/29/20 Sennosides Tab [Senokot] 17.2 mg PO BID #30 tablet 03/06/20 06/30/20 1 Day Ago Rx ~06/29/20 bisacodyL [Dulcolax tab] 10 mg PO QDAY #14 tablet 03/06/20 06/30/20 1 Day Ago Rx ~06/29/20 clonazePAM [KlonoPIN] 2 mg PO BID #30 03/06/20 06/30/20 1 Day Ago Rx ~06/29/20 ED Review of Systems ROS: Stated complaint: MH Other details as noted in HPI Constitutional: no symptoms reported Respiratory: no symptoms reported Endocrine: no symptoms reported Psychiatric: denies: auditory hallucinations, visual hallucinations, homicidal thoughts, suicidal thoughts Physical Exam - Physical Exam Vital Signs: Vital Signs 06/29/20 21:59 Temperature 97.6 F Pulse Rate 80 Respiratory 16 Rate Blood Pressure 121/73 [Left] O2 Sat by Pulse 99 Oximetry Physical Exam: GENERAL: The patient is well-developed well-nourished male lying on his chair not appearing to be in acute distress. [] HEENT: Normocephalic. Atraumatic. Extraocular motions are intact. Patient has moist mucous membranes. NECK: Supple. Trachea midline CHEST/LUNGS: Clear to auscultation. There is no respiratory distress noted. HEART/CARDIOVASCULAR: Regular. There is no tachycardia. There is no gallop rub or murmur. ABDOMEN: Abdomen is soft, nontender. Patient has normal bowel sounds. There is no abdominal distention. SKIN: There is no rash. There is no edema. There is no diaphoresis. NEURO: The patient is awake, alert, and oriented. The patient is cooperative. The patient has normal speech and gait. MUSCULOSKELETAL: There is no evidence of acute injury. ED Course Vital Signs 06/29/20 21:59 Temperature 97.6 F Pulse Rate 80 Respiratory 16 Rate Blood Pressure 121/73 [Left] O2 Sat by Pulse 99 Oximetry ED Medical Decision Making - Lab Data Result diagrams: 06/29/20 22:33 06/29/20 22:33 - Differential Diagnosis Schizoaffective disorder, adjustment disorder Critical care attestation.: If time is entered above; I have spent that time in minutes in the direct care of this critically ill patient, excluding procedure time. ED Disposition Clinical Impression: Auditory hallucinations Disposition: DC-01 TO HOME OR SELFCARE Is pt being admited?: No Does the pt Need Aspirin: No Condition: Stable Additional Instructions: Professional and Agency Contacts To help Resolve Crises(02/05) [place] Crisis Line: Suicide Prevention Line: Crisis Text Line: Text START to 190928 Emergency: 911 Outpatient COMMUNITY Behavioral Health Resources: [place]: [facility] [address], [place] [address] [place]: [facility] [address] [place] [address] Tuesday thru Tuesday - 8am - 5pm [place]: [facility] Address: [address] [place] [address] Tuesday thru Tuesday- 7am-2pm [facility] Address: [address] [place] [address] Tuesday thru Tuesday: 8:30AM-5PM Referrals: IZABELLA GOETZ MD [Primary Care Provider] - 3-5 Days
[2020-06-29 22:38] LABS: Bilirubin,Urine NEG (Negative); Blood,Urine NEG (Negative); Color,Urine Yellow (Yellow); Protein,Urine <15 mg/dL mg/dL (Negative); RBC,Urine < 1.0 /HPF (0.0-6.0)
[2020-06-29 22:42] LABS: Amphetamine Screen,Urine PRESUMPTIVE NEGATIVE; Benzodiazepines Screen,Urine PRESUMPTIVE NEGATIVE; Cannabinoid Screen,Urine PRESUMPTIVE NEGATIVE; Cocaine Screen,Urine PRESUMPTIVE NEGATIVE; Methadone Screen,Urine PRESUMPTIVE NEGATIVE; Opiate Screen,Urine PRESUMPTIVE NEGATIVE
[2020-06-29 23:23] LABS: Basophils % (Auto) 0.5 % (0.0-1.8); Eosinophils # (Auto) 0.1 K/mm3 (0.0-0.4); Eosinophils % (Auto) 2.2 % (0.0-4.3); Hematocrit 38.6 % (35.5-45.6); Hemoglobin 12.6 gm/dl (11.8-15.2); Lymphocytes # (Auto) 2.5 K/mm3 (1.2-5.4); Lymphocytes % (Auto) 45.6 % (13.4-35.0); Mean Corpuscular HGB Conc 33 % (32-34); Mean Corpuscular Volume 93 fl (84-94); Monocytes # (Auto) 0.5 K/mm3 (0.0-0.8); Monocytes % (Auto) 9.2 % (0.0-7.3); Platelet Count 137 K/mm3 (140-440); Red Blood Count 4.15 M/mm3 (3.65-5.03); Red Cell Distribution Width 14.8 % (13.2-15.2)
[2020-06-29 23:45] LABS: BUN/Creatinine Ratio 14; Blood Urea Nitrogen 11 mg/dL (9-20); Calcium 9.5 mg/dL (8.4-10.2); Hemolysis Index 8
[2020-06-30 08:22] VITALS: BP 117/77
[2020-06-30] MEDS ORDERED: DIVALPROEX ER 500 MG TAB PO SCH (13:00)
[2020-06-30] MEDS ORDERED: FAMOTIDINE 20 MG TAB PO SCH (13:00)
[2020-06-30] MEDS ORDERED: SENNOSIDES 8.6 MG TAB PO SCH (22:00)
[2020-06-30] MEDS ORDERED: PSYLLIUM SEED (WITH SUGAR) 3.4 GM PACKET PO SCH (22:00)
== END 2020-06-30 18:55 | disposition home or self-care (01) ==
LOC: ED 21:46
DX: R44.0 Auditory hallucinations (principal)
CPT/HCPCS: 36415; 80048; 80164; 80307; 80320; 81001; 85025; G0480

== ENCOUNTER 2020-07-18 15:22 | Emergency (ER) | payer MEDICAID ==
[2020-07-18 16:41] LABS: Basophils % (Auto) 0.8 % (0.0-1.8); Eosinophils # (Auto) 0.1 K/mm3 (0.0-0.4); Eosinophils % (Auto) 2.2 % (0.0-4.3); Hematocrit 37.7 % (35.5-45.6); Hemoglobin 12.5 gm/dl (11.8-15.2); Lymphocytes # (Auto) 2.4 K/mm3 (1.2-5.4); Lymphocytes % (Auto) 45.4 % (13.4-35.0); Mean Corpuscular HGB Conc 33 % (32-34); Mean Corpuscular Volume 92 fl (84-94); Monocytes # (Auto) 0.4 K/mm3 (0.0-0.8); Platelet Count 153 K/mm3 (140-440); Red Blood Count 4.11 M/mm3 (3.65-5.03); Red Cell Distribution Width 14.6 % (13.2-15.2)
[2020-07-18 16:52] LABS: BUN/Creatinine Ratio 13; Blood Urea Nitrogen 10 mg/dL (9-20); Calcium 9.2 mg/dL (8.4-10.2); Hemolysis Index 16
--- NOTE | 2020-07-18 17:04 | Emergency Department Report ---
ED Psych HPI - General Chief Complaint: Psych Stated Complaint: MH EVAL/BEHAVIOR Time Seen by Provider: 07/18/20 16:50 Source: police Mode of arrival: Ambulatory - History of Present Illness Initial Comments: Patient is a 20-year-old F [place] male with a past medical history of Down syndrome who is presenting with [facility] police for destruction of property at the longterm. Apparently the patient was offered a popsicle instead of the ice cream sandwich that he asked for. Patient then became irate destroying property. Patient currently is calm and cooperative. He states he has no complaints and cannot detail of the events that occurred today. - Related Data Home Medications Medication Instructions Recorded Confirmed Last Taken Benztropine [Cogentin] 0.5 mg PO BID 05/17/19 06/30/20 1 Day Ago ~06/29/20 traZODone [Desyrel] 100 mg PO HS 06/05/19 06/30/20 1 Day Ago ~06/29/20 Psyllium Seed (with Sugar) 1 each PO BID 02/17/20 06/30/20 1 Day Ago [Metamucil] ~06/29/20 Simethicone [Bicarsim] 40 mg PO TID 02/17/20 06/30/20 1 Day Ago ~06/29/20 Previous Rx's Medication Instructions Recorded Last Taken Type Divalproex ER [Depakote ER] 500 mg PO BID #60 03/06/20 1 Day Ago Rx ~06/29/20 Famotidine [Pepcid] 20 mg PO BID #60 tablet 03/06/20 1 Day Ago Rx ~06/29/20 Mupirocin [Bactroban 2% OINT] 1 applic NS BID #1 tube 03/06/20 1 Day Ago Rx ~06/29/20 Sennosides Tab [Senokot] 17.2 mg PO BID #30 tablet 03/06/20 1 Day Ago Rx ~06/29/20 bisacodyL [Dulcolax tab] 10 mg PO QDAY #14 tablet 03/06/20 1 Day Ago Rx ~06/29/20 clonazePAM [KlonoPIN] 2 mg PO BID #30 03/06/20 1 Day Ago Rx ~06/29/20 Allergies Allergy/AdvReac Type Severity Reaction Status Date / Time No Known Allergies Allergy Verified 10/20/15 03:43 ED Review of Systems ROS: Stated complaint: MH EVAL/BEHAVIOR Other details as noted in HPI Comment: All other systems reviewed and negative ED Past Medical Hx - Past Medical History Hx Heart Attack/AMI: No (EF 25-30% on recent TTE) Hx Renal Disease: Yes (ARF requiring HD this admission now improved) Hx Seizures: Yes Hx Psychiatric Treatment: Yes (schizo affective disorder/bipolar) Hx Asthma: No (Hx) Additional medical history: down syndrome - Surgical History Hx Pacemaker: No Hx Internal Defibrillator: No - Social History Smoking Status: Never Smoker Substance Use Type: None - Medications Home Medications: Home Medications Medication Instructions Recorded Confirmed Last Taken Type Benztropine [Cogentin] 0.5 mg PO BID 05/17/19 06/30/20 1 Day Ago History ~06/29/20 traZODone [Desyrel] 100 mg PO HS 06/05/19 06/30/20 1 Day Ago History ~06/29/20 Psyllium Seed (with Sugar) 1 each PO BID 02/17/20 06/30/20 1 Day Ago History [Metamucil] ~06/29/20 Simethicone [Bicarsim] 40 mg PO TID 02/17/20 06/30/20 1 Day Ago History ~06/29/20 Divalproex ER [Depakote ER] 500 mg PO BID #60 03/06/20 06/30/20 1 Day Ago Rx ~06/29/20 Famotidine [Pepcid] 20 mg PO BID #60 tablet 03/06/20 06/30/20 1 Day Ago Rx ~06/29/20 Mupirocin [Bactroban 2% OINT] 1 applic NS BID #1 tube 03/06/20 06/30/20 1 Day Ago Rx ~06/29/20 Sennosides Tab [Senokot] 17.2 mg PO BID #30 tablet 03/06/20 06/30/20 1 Day Ago Rx ~06/29/20 bisacodyL [Dulcolax tab] 10 mg PO QDAY #14 tablet 03/06/20 06/30/20 1 Day Ago Rx ~06/29/20 clonazePAM [KlonoPIN] 2 mg PO BID #30 03/06/20 06/30/20 1 Day Ago Rx ~06/29/20 ED Physical Exam - General Limitations: No Limitations General appearance: alert, in no apparent distress - Head Head exam: Present: atraumatic, normocephalic - Eye Eye exam: Present: normal appearance - ENT ENT exam: Present: mucous membranes moist - Neck Neck exam: Present: normal inspection - Respiratory Respiratory exam: Present: normal lung sounds bilaterally. Absent: respiratory distress, wheezes, rales - Cardiovascular Cardiovascular Exam: Present: regular rate, normal rhythm, normal heart sounds. Absent: systolic murmur, diastolic murmur, rubs, gallop - GI/Abdominal GI/Abdominal exam: Present: soft, normal bowel sounds. Absent: distended, tenderness, guarding, rebound - Rectal Rectal exam: Present: deferred - Extremities Exam Extremities exam: Present: normal inspection - Back Exam Back exam: Present: normal inspection - Neurological Exam Neurological exam: Present: alert, oriented X3 - Psychiatric Psychiatric exam: Present: normal affect, normal mood - Skin Skin exam: Present: warm, dry, intact, normal color. Absent: rash ED Course Vital Signs 07/18/20 15:49 Temperature 98.0 F Pulse Rate 89 Respiratory 18 Rate Blood Pressure 111/67 [Left] O2 Sat by Pulse 99 Oximetry ED Medical Decision Making - Lab Data Result diagrams: 07/18/20 16:18 07/18/20 16:18 Lab Results 07/18/20 07/18/20 07/18/20 Range/Units 16:18 16:18 16:18 WBC (4.5-11.0) K/mm3 RBC (3.65-5.03) M/mm3 Hgb (11.8-15.2) gm/dl Hct (35.5-45.6) % MCV (84-94) fl MCH (28-32) pg MCHC (32-34) % RDW (13.2-15.2) % Plt Count (140-440) K/mm3 Lymph % (Auto) (13.4-35.0) % Terry % (Auto) (0.0-7.3) % Eos % (Auto) (0.0-4.3) % Baso % (Auto) (0.0-1.8) % Lymph # (Auto) (1.2-5.4) K/mm3 Terry # (Auto) (0.0-0.8) K/mm3 Eos # (Auto) (0.0-0.4) K/mm3 Baso # (Auto) (0.0-0.1) K/mm3 Seg Neutrophils % (40.0-70.0) % Seg Neutrophils # (1.8-7.7) K/mm3 Sodium 139 (137-145) mmol/L Potassium 4.1 (3.6-5.0) mmol/L Chloride 101.8 (98-107) mmol/L Carbon Dioxide 24 (22-30) mmol/L Anion Gap 17 mmol/L BUN 10 (9-20) mg/dL Creatinine 0.8 (0.8-1.3) mg/dL Estimated GFR > 60 ml/min BUN/Creatinine Ratio 13 % Glucose 87 (75-100) mg/dL Calcium 9.2 (8.4-10.2) mg/dL Salicylates < 0.3 L (2.8-20.0) mg/dL Acetaminophen 5.0 L (10.0-30.0) ug/mL Plasma/Serum Alcohol (0-0.07) % 07/18/20 07/18/20 Range/Units 16:18 16:18 WBC 5.3 (4.5-11.0) K/mm3 RBC 4.11 (3.65-5.03) M/mm3 Hgb 12.5 (11.8-15.2) gm/dl Hct 37.7 (35.5-45.6) % MCV 92 (84-94) fl MCH 30 (28-32) pg MCHC 33 (32-34) % RDW 14.6 (13.2-15.2) % Plt Count 153 (140-440) K/mm3 Lymph % (Auto) 45.4 H (13.4-35.0) % Terry % (Auto) 8.0 H (0.0-7.3) % Eos % (Auto) 2.2 (0.0-4.3) % Baso % (Auto) 0.8 (0.0-1.8) % Lymph # (Auto) 2.4 (1.2-5.4) K/mm3 Terry # (Auto) 0.4 (0.0-0.8) K/mm3 Eos # (Auto) 0.1 (0.0-0.4) K/mm3 Baso # (Auto) 0.0 (0.0-0.1) K/mm3 Seg Neutrophils % 43.6 (40.0-70.0) % Seg Neutrophils # 2.3 (1.8-7.7) K/mm3 Sodium (137-145) mmol/L Potassium (3.6-5.0) mmol/L Chloride (98-107) mmol/L Carbon Dioxide (22-30) mmol/L Anion Gap mmol/L BUN (9-20) mg/dL Creatinine (0.8-1.3) mg/dL Estimated GFR ml/min BUN/Creatinine Ratio % Glucose (75-100) mg/dL Calcium (8.4-10.2) mg/dL Salicylates (2.8-20.0) mg/dL Acetaminophen (10.0-30.0) ug/mL Plasma/Serum Alcohol < 0.01 (0-0.07) % - Medical Decision Making Patient is a 20-year-old F [place] male who has some behavioral issues at his longterm. Patient is now calm and cooperative. Patient shows no need for ac [place] psychiatric evaluation or stabilization. Patient be discharged Critical care attestation.: If time is entered above; I have spent that time in minutes in the direct care of this critically ill patient, excluding procedure time. ED Disposition Clinical Impression: Behavior disturbance Disposition: DC-01 TO HOME OR SELFCARE Is pt being admited?: No Does the pt Need Aspirin: No Condition: Stable Additional Instructions: Patient is medically cleared and, cooperative at this time. Time of Disposition: 17:04
[2020-07-18 21:04] VITALS: BP 112/42
== END 2020-07-18 21:30 | disposition home or self-care (01) ==
LOC: ED 15:22
DX: F91.8 Other conduct disorders (principal); F25.0 Schizoaffective disorder, bipolar type; Q90.9 Down syndrome, unspecified; Z79.899 Other long term (current) drug therapy
CPT/HCPCS: 36415; 80048; 80320; 85025; 99283; G0480

== ENCOUNTER 2020-07-26 18:29 | Inpatient (IN) | payer MEDICAID ==
--- NOTE | 2020-07-26 18:58 | Emergency Department Report ---
<EZEQUIEL PORTER - Last Filed: 07/26/20 21:23> ED Psych HPI - General Chief Complaint: Psych Stated Complaint: 1013 Time Seen by Provider: 07/26/20 18:53 Source: patient, police Mode of arrival: Ambulatory Limitations: No Limitations - History of Present Illness Initial Comments: Chief complaint: " I was just trying to play with my friends." HPI: This is a 20-year-old male with history of Down syndrome and schizoaffective disorder who presents with aggressive behavior toward caregiver. Without permission patient left personal-long term to hang out with his friends. Caregiver approached was concerned. Caregiver found patient. When asked to return home, patient threw a basketball at the caregiver. Caregiver called police. Police brought patient to the emergency department. Patient denies suicidal homicidal ideation. He denies hallucinations. chairman president and chief executive officer provide a report stating that patient "suffers from schizophrenia". MD Complaint: other (Aggressive behavior toward caregiver) -: This evening Associated Psychiatric Symptoms: none History of same: Yes Quality: resolved prior to arrival Improves With: none Worsens With: none Associated Symptoms: denies other symptoms Treatments Prior to Arrival: none - Related Data Home Medications Medication Instructions Recorded Confirmed Last Taken Benztropine [Cogentin] 0.5 mg PO BID 05/17/19 07/28/20 1 Day Ago ~06/29/20 traZODone [Desyrel] 100 mg PO HS 06/05/19 07/28/20 1 Day Ago ~06/29/20 Psyllium Seed (with Sugar) 1 each PO BID 02/17/20 07/28/20 1 Day Ago [Metamucil] ~06/29/20 Simethicone [Bicarsim] 40 mg PO TID 02/17/20 07/28/20 1 Day Ago ~06/29/20 Previous Rx's Medication Instructions Recorded Last Taken Type Divalproex ER [Depakote ER] 500 mg PO BID #60 03/06/20 1 Day Ago Rx ~06/29/20 Famotidine [Pepcid] 20 mg PO BID #60 tablet 03/06/20 1 Day Ago Rx ~06/29/20 Mupirocin [Bactroban 2% OINT] 1 applic NS BID #1 tube 03/06/20 1 Day Ago Rx ~06/29/20 Sennosides Tab [Senokot] 17.2 mg PO BID #30 tablet 03/06/20 1 Day Ago Rx ~06/29/20 bisacodyL [Dulcolax tab] 10 mg PO QDAY #14 tablet 03/06/20 1 Day Ago Rx ~06/29/20 clonazePAM [KlonoPIN] 2 mg PO BID #30 03/06/20 1 Day Ago Rx ~06/29/20 Allergies Allergy/AdvReac Type Severity Reaction Status Date / Time No Known Allergies Allergy Verified 10/20/15 03:43 ED Review of Systems Comment: All other systems reviewed and negative Constitutional: denies: fever, malaise Respiratory: denies: cough Cardiovascular: denies: chest pain Gastrointestinal: denies: abdominal pain, nausea, vomiting Skin: denies: rash, lesions Psychiatric: denies: anxiety, depression, auditory hallucinations, visual hallucinations, homicidal thoughts, suicidal thoughts ED Past Medical Hx - Past Medical History Previous Medical History?: Yes Hx Heart Attack/AMI: No (EF 25-30% on recent TTE) Hx Renal Disease: Yes (ARF requiring HD this admission now improved) Hx Seizures: Yes Hx Psychiatric Treatment: Yes (schizo affective disorder/bipolar) Hx Asthma: No (Hx) Additional medical history: down syndrome - Surgical History Hx Pacemaker: No Hx Internal Defibrillator: No - Social History Smoking Status: Never Smoker - Medications Home Medications: Home Medications Medication Instructions Recorded Confirmed Last Taken Type Benztropine [Cogentin] 0.5 mg PO BID 05/17/19 07/28/20 1 Day Ago History ~06/29/20 traZODone [Desyrel] 100 mg PO HS 06/05/19 07/28/20 1 Day Ago History ~06/29/20 Psyllium Seed (with Sugar) 1 each PO BID 02/17/20 07/28/20 1 Day Ago History [Metamucil] ~06/29/20 Simethicone [Bicarsim] 40 mg PO TID 02/17/20 07/28/20 1 Day Ago History ~06/29/20 Divalproex ER [Depakote ER] 500 mg PO BID #60 03/06/20 07/28/20 1 Day Ago Rx ~06/29/20 Famotidine [Pepcid] 20 mg PO BID #60 tablet 03/06/20 07/28/20 1 Day Ago Rx ~06/29/20 Mupirocin [Bactroban 2% OINT] 1 applic NS BID #1 tube 03/06/20 07/28/20 1 Day Ago Rx ~06/29/20 Sennosides Tab [Senokot] 17.2 mg PO BID #30 tablet 03/06/20 07/28/20 1 Day Ago Rx ~06/29/20 bisacodyL [Dulcolax tab] 10 mg PO QDAY #14 tablet 03/06/20 07/28/20 1 Day Ago Rx ~06/29/20 clonazePAM [KlonoPIN] 2 mg PO BID #30 03/06/20 07/28/20 1 Day Ago Rx ~06/29/20 ED Physical Exam - General Limitations: No Limitations General appearance: alert, in no apparent distress - Head Head exam: Present: atraumatic, normocephalic - Eye Eye exam: Present: normal appearance - ENT ENT exam: Present: mucous membranes moist - Neck Neck exam: Present: normal inspection, full ROM - Respiratory Respiratory exam: Present: normal lung sounds bilaterally. Absent: respiratory distress, wheezes, rales, rhonchi - Cardiovascular Cardiovascular Exam: Present: regular rate, normal rhythm, normal heart sounds. Absent: systolic murmur, diastolic murmur, rubs, gallop - GI/Abdominal GI/Abdominal exam: Present: soft, normal bowel sounds. Absent: distended, tenderness, guarding, rebound - Rectal Rectal exam: Present: deferred - Extremities Exam Extremities exam: Present: normal inspection - Neurological Exam Neurological exam: Present: alert, oriented X3 - Psychiatric Psychiatric exam: Present: normal affect, normal mood - Skin Skin exam: Present: warm, dry, intact, normal color. Absent: rash ED Medical Decision Making - Lab Data Result diagrams: 07/26/20 19:07 07/26/20 19:07 - Medical Decision Making Mr. Acosta is a 20-year-old male with history of schizoaffective disorder and Down syndrome who presents with aggressive behavior toward caregiver. Patient is calm and cooperative here in emergency department. He states that he is taking his medications. In my medical opinion I do not see the need for inpatient psychiatric stabilization. However I will defer treatment recommendations to our psychiatric team. Patient is medically clear for psychiatric care. I have reviewed labs obtained including CBC chemistry serum toxicology urine analysis urine toxicology. Labs are all within normal limits. Patient is medically clear for psychiatric care. ED Disposition Clinical Impression: Behavior disturbance, Constipation, Ileus, Nausea and vomiting, Abdominal pain Disposition: OP ADMIT IP TO THIS HOSP Condition: Good <RADHA ROONEY - Last Filed: 07/29/20 18:42> ED Review of Systems ROS: Stated complaint: 1013 Other details as noted in HPI ED Course Vital Signs 07/26/20 07/26/20 07/27/20 19:23 20:00 02:04 Temperature 98.2 F 98.2 F 97.4 F L Pulse Rate 97 H 85 63 Respiratory 18 20 18 Rate Blood Pressure 109/62 109/49 Blood Pressure 109/62 [Left] O2 Sat by Pulse 97 97 99 Oximetry 07/27/20 07/27/20 07/28/20 08:18 19:21 02:32 Temperature 98.0 F 97.4 F L 97.2 F L Pulse Rate 61 68 68 Respiratory 20 18 20 Rate Blood Pressure 101/57 Blood Pressure 112/53 105/60 [Left] O2 Sat by Pulse 98 96 100 Oximetry 07/28/20 07/29/20 07/29/20 20:10 02:45 02:51 Temperature 98.1 F Pulse Rate 87 66 69 Respiratory 18 22 19 Rate Blood Pressure 116/67 116/67 Blood Pressure 125/72 [Left] O2 Sat by Pulse 100 98 98 Oximetry 07/29/20 03:00 Temperature Pulse Rate 74 Respiratory 21 Rate Blood Pressure 117/72 Blood Pressure [Left] O2 Sat by Pulse Oximetry - Reevaluation(s) Reevaluation #1: 07/28/20 22:51 Nursing team informs me that the patient is complaining of abdominal pain. As per review of his medications, he is taking Tylenol as needed for pain, as well as Dulcolax. When I go to assess the patient, he is resting comfortably on his back, with absolutely no rebound, guarding, or tenderness to palpation. He has a soft benign abdominal examination with appropriate bowel sounds. I have evaluated this patient in the past. Do not see an indication for advanced imaging at this time. 07/29/20 00:31 Nursing team now informs me that the patient threw up. Given his past complex surgical history, we will obtain CT scan of the abdomen pelvis with IV contrast. IV fluids and Zofran are ordered. Reevaluation #2: 07/29/20 01:50 CT scan abdomen pelvis shows diffuse ileus and large fecal load. Suspect patient is constipated, thus causing CT scan findings, as well as nausea and vomiting. Lactulose and soapsuds enema ordered. Contacted general surgery on-call, Dr. Haley Das, We discussed the patient's history, physical, laboratory studies, and CT scan findings. We are both of the agreement that patient is likely severely constipated, thus causing ileus, and symptoms. However, he indicates his group can follow in consultation, and has no objection to lactulose orally/soapsuds enema. Hospital team to admit the patient for further evaluation and management. Patient severely constipated, with CT scan findings suggestive of ileus, and has had complex small bowel obstructions in the past. He will require IV fluids, which will need to be gently titrated given his prior history of congestive heart failure, he will also need serial abdominal exams, and probable small bowel series to assess for interval changes. Hospital physician, Dr. Elliott Varela to admit ED Medical Decision Making - Lab Data Result diagrams: 07/26/20 19:07 07/26/20 19:07 Vital Signs 07/26/20 07/26/20 07/27/20 19:23 20:00 02:04 Temperature 98.2 F 98.2 F 97.4 F L Pulse Rate 97 H 85 63 Respiratory 18 20 18 Rate Blood Pressure 109/62 109/49 Blood Pressure 109/62 [Left] O2 Sat by Pulse 97 97 99 Oximetry 07/27/20 07/27/20 07/28/20 08:18 19:21 02:32 Temperature 98.0 F 97.4 F L 97.2 F L Pulse Rate 61 68 68 Respiratory 20 18 20 Rate Blood Pressure 101/57 Blood Pressure 112/53 105/60 [Left] O2 Sat by Pulse 98 96 100 Oximetry 07/28/20 20:10 Temperature 98.1 F Pulse Rate 87 Respiratory 18 Rate Blood Pressure Blood Pressure 125/72 [Left] O2 Sat by Pulse 100 Oximetry Lab Results 07/26/20 07/26/20 07/26/20 Range/Units 19:07 19:07 19:07 WBC 5.1 (4.5-11.0) K/mm3 RBC 4.33 (3.65-5.03) M/mm3 Hgb 13.2 (11.8-15.2) gm/dl Hct 39.3 (35.5-45.6) % MCV 91 (84-94) fl MCH 31 (28-32) pg MCHC 34 (32-34) % RDW 14.6 (13.2-15.2) % Plt Count 186 (140-440) K/mm3 Lymph % (Auto) 44.6 H (13.4-35.0) % [place] % (Auto) 9.3 H (0.0-7.3) % Eos % (Auto) 1.9 (0.0-4.3) % Baso % (Auto) 1.5 (0.0-1.8) % Lymph # (Auto) 2.3 (1.2-5.4) K/mm3 [place] # (Auto) 0.5 (0.0-0.8) K/mm3 Eos # (Auto) 0.1 (0.0-0.4) K/mm3 Baso # (Auto) 0.1 (0.0-0.1) K/mm3 Seg Neutrophils % 42.7 (40.0-70.0) % Seg Neutrophils # 2.2 (1.8-7.7) K/mm3 Sodium 140 (137-145) mmol/L Potassium 4.7 (3.6-5.0) mmol/L Chloride 102.3 (98-107) mmol/L Carbon Dioxide 26 (22-30) mmol/L Anion Gap 16 mmol/L BUN 13 (9-20) mg/dL Creatinine 0.8 (0.8-1.3) mg/dL Estimated GFR > 60 ml/min BUN/Creatinine Ratio 16 % Glucose 89 (75-100) mg/dL Calcium 9.2 (8.4-10.2) mg/dL Urine Color (Yellow) Urine Turbidity (Clear) Urine pH (5.0-7.0) Ur Specific [place] (1.003-1.030) Urine Protein (Negative) mg/dL Urine Glucose (UA) (Negative) mg/dL Urine Ketones (Negative) mg/dL Urine Blood (Negative) Urine Nitrite (Negative) Urine Bilirubin (Negative) Urine Urobilinogen (<2.0) mg/dL Ur Leukocyte Esterase (Negative) Urine WBC (Auto) (0.0-6.0) /HPF Urine RBC (Auto) (0.0-6.0) /HPF U Epithel Cells (Auto) (0-13.0) /HPF Urine Mucus /HPF Salicylates < 0.3 L (2.8-20.0) mg/dL Urine Opiates Screen Urine Methadone Screen Acetaminophen (10.0-30.0) ug/mL Ur Barbiturates Screen Ur Phencyclidine Scrn Ur Amphetamines Screen U Benzodiazepines Scrn Urine Cocaine Screen U Marijuana (THC) Screen Drugs of Abuse Note Plasma/Serum Alcohol (0-0.07) % 07/26/20 07/26/20 07/26/20 Range/Units 19:07 19:07 20:42 WBC (4.5-11.0) K/mm3 RBC (3.65-5.03) M/mm3 Hgb (11.8-15.2) gm/dl Hct (35.5-45.6) % MCV (84-94) fl MCH (28-32) pg MCHC (32-34) % RDW (13.2-15.2) % Plt Count (140-440) K/mm3 Lymph % (Auto) (13.4-35.0) % [place] % (Auto) (0.0-7.3) % Eos % (Auto) (0.0-4.3) % Baso % (Auto) (0.0-1.8) % Lymph # (Auto) (1.2-5.4) K/mm3 [place] # (Auto) (0.0-0.8) K/mm3 Eos # (Auto) (0.0-0.4) K/mm3 Baso # (Auto) (0.0-0.1) K/mm3 Seg Neutrophils % (40.0-70.0) % Seg Neutrophils # (1.8-7.7) K/mm3 Sodium (137-145) mmol/L Potassium (3.6-5.0) mmol/L Chloride (98-107) mmol/L Carbon Dioxide (22-30) mmol/L Anion Gap mmol/L BUN (9-20) mg/dL Creatinine (0.8-1.3) mg/dL Estimated GFR ml/min BUN/Creatinine Ratio % Glucose (75-100) mg/dL Calcium (8.4-10.2) mg/dL Urine Color Yellow (Yellow) Urine Turbidity Clear (Clear) Urine pH 5.0 (5.0-7.0) Ur Specific [place] 1.019 (1.003-1.030) Urine Protein <15 mg/dl (Negative) mg/dL Urine Glucose (UA) Neg (Negative) mg/dL Urine Ketones Neg (Negative) mg/dL Urine Blood Neg (Negative) Urine Nitrite Neg (Negative) Urine Bilirubin Neg (Negative) Urine Urobilinogen 2.0 (<2.0) mg/dL Ur Leukocyte Esterase Neg (Negative) Urine WBC (Auto) 1.0 (0.0-6.0) /HPF Urine RBC (Auto) 1.0 (0.0-6.0) /HPF U Epithel Cells (Auto) < 1.0 (0-13.0) /HPF Urine Mucus Few /HPF Salicylates (2.8-20.0) mg/dL Urine Opiates Screen Urine Methadone Screen Acetaminophen 5.0 L (10.0-30.0) ug/mL Ur Barbiturates Screen Ur Phencyclidine Scrn Ur Amphetamines Screen U Benzodiazepines Scrn Urine Cocaine Screen U Marijuana (THC) Screen Drugs of Abuse Note Plasma/Serum Alcohol < 0.01 (0-0.07) % 07/26/20 Range/Units 20:42 WBC (4.5-11.0) K/mm3 RBC (3.65-5.03) M/mm3 Hgb (11.8-15.2) gm/dl Hct (35.5-45.6) % MCV (84-94) fl MCH (28-32) pg MCHC (32-34) % RDW (13.2-15.2) % Plt Count (140-440) K/mm3 Lymph % (Auto) (13.4-35.0) % [place] % (Auto) (0.0-7.3) % Eos % (Auto) (0.0-4.3) % Baso % (Auto) (0.0-1.8) % Lymph # (Auto) (1.2-5.4) K/mm3 [place] # (Auto) (0.0-0.8) K/mm3 Eos # (Auto) (0.0-0.4) K/mm3 Baso # (Auto) (0.0-0.1) K/mm3 Seg Neutrophils % (40.0-70.0) % Seg Neutrophils # (1.8-7.7) K/mm3 Sodium (137-145) mmol/L Potassium (3.6-5.0) mmol/L Chloride (98-107) mmol/L Carbon Dioxide (22-30) mmol/L Anion Gap mmol/L BUN (9-20) mg/dL Creatinine (0.8-1.3) mg/dL Estimated GFR ml/min BUN/Creatinine Ratio % Glucose (75-100) mg/dL Calcium (8.4-10.2) mg/dL Urine Color (Yellow) Urine Turbidity (Clear) Urine pH (5.0-7.0) Ur Specific [place] (1.003-1.030) Urine Protein (Negative) mg/dL Urine Glucose (UA) (Negative) mg/dL Urine Ketones (Negative) mg/dL Urine Blood (Negative) Urine Nitrite (Negative) Urine Bilirubin (Negative) Urine Urobilinogen (<2.0) mg/dL Ur Leukocyte Esterase (Negative) Urine WBC (Auto) (0.0-6.0) /HPF Urine RBC (Auto) (0.0-6.0) /HPF U Epithel Cells (Auto) (0-13.0) /HPF Urine Mucus /HPF Salicylates (2.8-20.0) mg/dL Urine Opiates Screen Presumptive negative Urine Methadone Screen Presumptive negative Acetaminophen (10.0-30.0) ug/mL Ur Barbiturates Screen Presumptive negative Ur Phencyclidine Scrn Presumptive negative Ur Amphetamines Screen Presumptive negative U Benzodiazepines Scrn Presumptive positive Urine Cocaine Screen Presumptive negative U Marijuana (THC) Screen Presumptive negative Drugs of Abuse Note Disclamer Plasma/Serum Alcohol (0-0.07) % - Radiology Data Radiology results: report reviewed, image reviewed CT abdomen pelvis w con INDICATION: Patient complains of abd pain with nausea and vomiting. TECHNIQUE: All CT scans at this location are performed using the following dose modulation technique: Automated exposure control. Helical slices were obtained through the abdomen and pelvis following the administration of 100 cc of Omnipaque 300 COMPARISON: CT scan dated 02/16/2020 FINDINGS: Abdomen: No acute abnormality is seen in the lower chest. The liver, spleen, pancreas, adrenal glands, and kidneys show no acute abnormality. There is a large amount of stool noted in the distal bowel. It appears the patient is undergone prior colectomy. The bowel is diffusely distended with fluid and air. No discrete transition point is seen. Pelvis: There is a large amount stool noted in the rectal vault. There are no abnormal fluid collections. There is no inflammatory change. IMPRESSION: 1. The bowel is diffusely distended with a large amount stool noted in the distal bowel and in the rectum. 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 The bowel gas pattern is abnormal. I do not see a discrete obstruction. The appearance is more consistent with diffuse ileus. Signer Name: Migue Godinez MD Signed: 07/29/2020 12:31 AM Workstation Name: [id number] Critical care attestation.: If time is entered above; I have spent that time in minutes in the direct care of this critically ill patient, excluding procedure time. ED Disposition Is pt being admited?: Yes Does the pt Need Aspirin: No
[2020-07-26] MEDS ORDERED: ACETAMINOPHEN 325 MG TAB PO PRN (19:01)
[2020-07-26 19:22] LABS: Basophils # (Auto) 0.1 K/mm3 (0.0-0.1); Basophils % (Auto) 1.5 % (0.0-1.8); Eosinophils # (Auto) 0.1 K/mm3 (0.0-0.4); Eosinophils % (Auto) 1.9 % (0.0-4.3); Hematocrit 39.3 % (35.5-45.6); Hemoglobin 13.2 gm/dl (11.8-15.2); Lymphocytes # (Auto) 2.3 K/mm3 (1.2-5.4); Lymphocytes % (Auto) 44.6 % (13.4-35.0); Mean Corpuscular HGB Conc 34 % (32-34); Mean Corpuscular Volume 91 fl (84-94); Monocytes # (Auto) 0.5 K/mm3 (0.0-0.8); Monocytes % (Auto) 9.3 % (0.0-7.3); Platelet Count 186 K/mm3 (140-440); Red Blood Count 4.33 M/mm3 (3.65-5.03); Red Cell Distribution Width 14.6 % (13.2-15.2)
[2020-07-26 19:39] LABS: BUN/Creatinine Ratio 16; Blood Urea Nitrogen 13 mg/dL (9-20); Calcium 9.2 mg/dL (8.4-10.2); Hemolysis Index 9
[2020-07-26] MEDS ORDERED: SIMETHICONE 80 MG CHEW TAB PO ONE (20:00)
[2020-07-26 20:58] LABS: Bilirubin,Urine NEG (Negative); Blood,Urine NEG (Negative); Color,Urine Yellow (Yellow); Mucus,Urine FEW /HPF; Protein,Urine <15 mg/dL mg/dL (Negative)
[2020-07-26 21:06] LABS: Amphetamine Screen,Urine PRESUMPTIVE NEGATIVE; Benzodiazepines Screen,Urine PRESUMPTIVE POSITIVE; Cannabinoid Screen,Urine PRESUMPTIVE NEGATIVE; Cocaine Screen,Urine PRESUMPTIVE NEGATIVE; Methadone Screen,Urine PRESUMPTIVE NEGATIVE; Opiate Screen,Urine PRESUMPTIVE NEGATIVE
[2020-07-26] MEDS ORDERED: clonazePAM 0.5 MG TAB PO SCH (22:00)
[2020-07-26] MEDS: FAMOTIDINE 20 MG TAB PO SCH (22:08)
[2020-07-26] MEDS: DIVALPROEX ER 500 MG TAB PO SCH (22:09)
[2020-07-26] MEDS: traZODone 50 MG TAB PO SCH (22:10)
[2020-07-26] MEDS: BENZTROPINE 0.5 MG TAB PO SCH (22:10)
[2020-07-27] MEDS: DIVALPROEX ER 500 MG TAB PO SCH ×2 (09:55→21:45)
[2020-07-27] MEDS: FAMOTIDINE 20 MG TAB PO SCH ×2 (09:55→21:43)
[2020-07-27] MEDS: BENZTROPINE 0.5 MG TAB PO SCH ×2 (09:55→21:46)
[2020-07-27] MEDS: traZODone 50 MG TAB PO SCH (21:45)
[2020-07-28] MEDS: BENZTROPINE 0.5 MG TAB PO SCH ×2 (11:24→21:59)
[2020-07-28] MEDS: DIVALPROEX ER 500 MG TAB PO SCH ×2 (11:24→22:00)
[2020-07-28] MEDS: FAMOTIDINE 20 MG TAB PO SCH ×2 (11:24→22:01)
[2020-07-28] MEDS: traZODone 50 MG TAB PO SCH (22:00)
[2020-07-29] MEDS ORDERED: ONDANSETRON 4 MG/2 ML INJ IV ONE (00:30)
[2020-07-29] MEDS ORDERED: SODIUM CHLORIDE 0.9% 500 ML 500 ML IV ONE (00:31)
--- NOTE | 2020-07-29 01:36 | Cat Scan Report ---
CT abdomen pelvis w con INDICATION: Patient complains of abd pain with nausea and vomiting. TECHNIQUE: All CT scans at this location are performed using the following dose modulation technique: Automated exposure control. Helical slices were obtained through the abdomen and pelvis following the administr ation of 100 cc of Omnipaque 300 COMPARISON: CT scan dated 02/16/2020 FINDINGS: Abdomen: No acute abnormality is seen in the lower chest. The liver, spleen, pancreas, adrenal glands , and kidneys show no acute abnormality. There is a large amount of stool noted in the distal bowel. It appears the patient is undergone prior colectomy. The bowel is diffusely distended with fluid and air. No discrete transition point is seen . Pelvis: There is a large amount stool noted in the rectal vault. There are no abnormal fluid collections. There is no inflammatory change. IMPRESSION: 1. The bowel is diffusely distended with a large amount stool noted in the distal bowel and in the re ctum. 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 The bowel gas pattern is abnormal. I do not se e a discrete obstruction. The appearance is more consistent with diffuse ileus. Signer Name: Migue Godinez MD Signed: 07/29/2020 1:31 AM Workstation Name: [id number]
[2020-07-29] MEDS ORDERED: LACTATED RINGERS 500 ML IV ONE (01:40)
[2020-07-29] MEDS ORDERED: LACTULOSE 20 GM/30 ML ORAL LIQD PO ONE (01:48)
[2020-07-29] MEDS ORDERED: LACTULOSE 20 GM/30 ML ORAL LIQD ONE (02:25)
[2020-07-29] MEDS ORDERED: LACTATED RINGERS 1,000 ML ONE (02:26)
[2020-07-29] MEDS ORDERED: MORPHINE 2 MG/1 ML INJ IV PRN (03:18)
[2020-07-29] MEDS ORDERED: ONDANSETRON 4 MG/2 ML INJ IV PRN (03:19)
[2020-07-29] MEDS ORDERED: ACETAMINOPHEN 325 MG TAB PO PRN (03:19)
[2020-07-29] MEDS ORDERED: SODIUM CHLORIDE 0.9% 1000 ML 1,000 ML IV SCH (03:30)
[2020-07-29] MEDS: HEPARIN 5,000 UNIT/1 ML VIAL SUB-Q SCH ×3 (04:25→22:06)
--- NOTE | 2020-07-29 04:47 | History and Physical Report ---
History of Present Illness Date of examination: 07/29/20 Date of admission: 07/29/20 01:53 Chief complaint: Abdominal pain History of present illness: 20 year old male seen in the Emergency room 2 days before the current complain because of abnormal behavior. patient developed diffuse abdominal pain with nausea and vomiting . There is no history of fever, chills, shortness of breath, chest pain diarrhea or constipation. Past History Past Medical History: other (SMALL BOWELL OBSERVATION, ) Past Surgical History: No surgical history Social history: no significant social history Family history: no significant family history Medications and Allergies Allergies Allergy/AdvReac Type Severity Reaction Status Date / Time No Known Allergies Allergy Verified 10/20/15 03:43 Home Medications Medication Instructions Recorded Confirmed Last Taken Type Benztropine [Cogentin] 0.5 mg PO BID 05/17/19 07/28/20 1 Day Ago History ~06/29/20 traZODone [Desyrel] 100 mg PO HS 06/05/19 07/28/20 1 Day Ago History ~06/29/20 Psyllium Seed (with Sugar) 1 each PO BID 02/17/20 07/28/20 1 Day Ago History [Metamucil] ~06/29/20 Simethicone [Bicarsim] 40 mg PO TID 02/17/20 07/28/20 1 Day Ago History ~06/29/20 Divalproex ER [Depakote ER] 500 mg PO BID #60 03/06/20 07/28/20 1 Day Ago Rx ~06/29/20 Famotidine [Pepcid] 20 mg PO BID #60 tablet 03/06/20 07/28/20 1 Day Ago Rx ~06/29/20 Mupirocin [Bactroban 2% OINT] 1 applic NS BID #1 tube 03/06/20 07/28/20 1 Day Ago Rx ~06/29/20 Sennosides Tab [Senokot] 17.2 mg PO BID #30 tablet 03/06/20 07/28/20 1 Day Ago Rx ~06/29/20 bisacodyL [Dulcolax tab] 10 mg PO QDAY #14 tablet 03/06/20 07/28/20 1 Day Ago Rx ~06/29/20 clonazePAM [KlonoPIN] 2 mg PO BID #30 03/06/20 07/28/20 1 Day Ago Rx ~06/29/20 Active Meds: Active Medications Acetaminophen (Tylenol) 650 mg PO Q4HR PRN PRN Reason: Pain MILD(1-3)/Fever >100.5/BARRY Benztropine Mesylate (Cogentin) 0.5 mg PO BID [facility] Last Admin: 07/28/20 21:59 Dose: 0.5 mg Documented by: Bisacodyl (Dulcolax) 10 mg PO QDAY [facility] Last Admin: 07/28/20 11:24 Dose: 10 mg Documented by: Bisacodyl (Dulcolax) 10 mg PO QDAY PRN PRN Reason: Constipation Clonazepam (Klonopin) 2 mg PO BID [facility] Last Admin: 07/28/20 22:00 Dose: 2 mg Documented by: Divalproex Sodium (Depakote Er) 500 mg PO BID [facility] Last Admin: 07/28/20 22:00 Dose: 500 mg Documented by: Famotidine (Pepcid) 20 mg PO BID [facility] Last Admin: 07/28/20 22:01 Dose: 20 mg Documented by: Heparin Sodium (Porcine) (Heparin) 5,000 unit SUB-Q Q12HR [facility] Last Admin: 07/29/20 04:25 Dose: Not Given Documented by: Sodium Chloride (Nacl 0.9% 1000 Ml) 1,000 mls @ 125 mls/hr IV DIRECT [facility] Morphine Sulfate (Morphine) 2 mg IV Q4H PRN PRN Reason: Pain, Moderate (4-6) Ondansetron HCl (Zofran) 4 mg IV Q8H PRN PRN Reason: Nausea And Vomiting Trazodone HCl (Desyrel) 100 mg PO QHS [facility] Last Admin: 07/28/20 22:00 Dose: 100 mg Documented by: Review of Systems Constitutional: no weight loss, no weight gain, no weakness Eyes: bilateral: other (NO BILATERAL EYE SYMPTOMS) Ears, nose, mouth and throat: no ear pain, no ear discharge, no tinnitis, no decreased hearing, no nose pain, no nasal congestion, no nasal discharge, no sin us pressure, no mouth pain, no dysphagia, no hoarseness, no sore throat Cardiovascular: no chest pain, no orthopnea, no palpitations, no rapid/irregular heart beat, no syncope, no lightheadedness, no shortness of breath, no paroxysmal nocturnal dyspnea, no high blood pressure, no leg edema Respiratory: no cough, no cough with sputum, no excessive sputum, no shortness of breath, no pleurisy, no pain on inspiration, no respiratory infections Gastrointestinal: abdominal pain, nausea, vomiting, no diarrhea, no constipation, no change in bowel habits, no hematemesis, no coffee ground emesis, no melena, no hematochezia, no loss of appetite, no early satiety, no heartburn, no indigestion, no belching, no excessive gas, no jaundice, no dyspepsia/bloating, no early satiety Genitourinary Male: no dysuria, no hematuria, no flank pain, no discharge, no urinary frequency, no urinary hesitancy, no nocturia, no incontinence, no erectile dysfunction, no decreased libido, no testicular pain, no testicular lump, no difficulties fathering child, no polyuria Rectal: no pain, no itching Musculoskeletal: no neck stiffness, no neck pain, no shooting arm pain, no arm numbness/tingling, no low back pain, no shooting leg pain, no leg numbness/tingling, no muscle weakness, no muscle cramps, no myalgias, no atrophy Integumentary: no rash, no pruritis, no redness, no sores, no wounds, no jaundice, no boils, no darkening of skin, no depigmentation Neurological: no head injury, no paralysis, no weakness, no parathesias, no numbness, no tingling, no seizures, no syncope, no tremors, no ataxia, no vertigo, no headaches, no migraines, no convulsions, no aphasia, no change in speech, no change in mentation, no confusion, no memory loss, no changes in smell/taste Psychiatric: no anxiety, no memory loss, no change in sleep habits, no sleep disturbances, no insomnia, no hypersomnia, no change in appetite, no change in libido, no suicidal ideation, no disorientation, no hallucinations, no depression, no hopelessness, no anhedonia, no anxiety attacks, no difficulties concentrating, no confusion Endocrine: no cold intolerance, no heat intolerance, no polyphagia, no excessive thirst, no polydipsia, no polyuria, no nocturia, no excessive sweating, no th yroid mass Hematologic/Lymphatic: no easy bruising, no easy bleeding Allergic/Immunologic: no urticaria, no allergic rhinitis Exam - Constitutional Vitals: Temp Pulse Resp BP Pulse Ox 98.1 F 66 22 116/67 98 07/28/20 20:10 07/29/20 02:45 07/29/20 02:45 07/29/20 02:45 07/29/20 02:45 General appearance: Present: no acute distress - EENT Eyes: Present: PERRL, EOM intact ENT: hearing intact, clear oral mucosa - Neck Neck: Present: supple, normal ROM - Respiratory Respiratory effort: normal, pursed lips - Cardiovascular Rhythm: regular Heart Sounds: Present: S1 & S2. Absent: systolic murmur, diastolic murmur, click - Extremities Extremities: no ischemia, No edema - Abdominal General gastrointestinal: Present: soft, non-tender, non-distended, normal bowel sounds. Absent: tender, distended, rigid, hepatomegaly, splenomegaly, mass Male genitourinary: Present: deferred - Rectal Rectal Exam: deferred - Integumentary Integumentary: Present: clear, warm, dry. Absent: erythema, jaundice, rash, clammy - Musculoskeletal Musculoskeletal: strength equal bilaterally HEART Score - HEART Score Age: < 45 Risk factors: No known risk factors Troponin: < normal limit - Critical Actions Critical Actions: 0-3 pts:0.9-1.7%risk of adverse cardiac event.Candidate for discharge Results - Labs CBC & Chem 7: 07/26/20 19:07 07/26/20 19:07 Labs: Laboratory Last Values WBC 5.1 K/mm3 (4.5-11.0) 07/26/20 19:07 RBC 4.33 M/mm3 (3.65-5.03) 07/26/20 19:07 Hgb 13.2 gm/dl (11.8-15.2) 07/26/20 19:07 Hct 39.3 % (35.5-45.6) 07/26/20 19:07 MCV 91 fl (84-94) 07/26/20 19:07 MCH 31 pg (28-32) 07/26/20 19:07 MCHC 34 % (32-34) 07/26/20 19:07 RDW 14.6 % (13.2-15.2) 07/26/20 19:07 Plt Count 186 K/mm3 (140-440) 07/26/20 19:07 Lymph % (Auto) 44.6 % (13.4-35.0) H 07/26/20 19:07 [place] % (Auto) 9.3 % (0.0-7.3) H 07/26/20 19:07 Eos % (Auto) 1.9 % (0.0-4.3) 07/26/20 19:07 Baso % (Auto) 1.5 % (0.0-1.8) 07/26/20 19:07 Lymph # (Auto) 2.3 K/mm3 (1.2-5.4) 07/26/20 19:07 [place] # (Auto) 0.5 K/mm3 (0.0-0.8) 07/26/20 19:07 Eos # (Auto) 0.1 K/mm3 (0.0-0.4) 07/26/20 19:07 Baso # (Auto) 0.1 K/mm3 (0.0-0.1) 07/26/20 19:07 Seg Neutrophils % 42.7 % (40.0-70.0) 07/26/20 19:07 Seg Neutrophils # 2.2 K/mm3 (1.8-7.7) 07/26/20 19:07 Sodium 140 mmol/L (137-145) 07/26/20 19:07 Potassium 4.7 mmol/L (3.6-5.0) 07/26/20 19:07 Chloride 102.3 mmol/L (98-107) 07/26/20 19:07 Carbon Dioxide 26 mmol/L (22-30) 07/26/20 19:07 Anion Gap 16 mmol/L 07/26/20 19:07 BUN 13 mg/dL (9-20) 07/26/20 19:07 Creatinine 0.8 mg/dL (0.8-1.3) 07/26/20 19:07 Estimated GFR > 60 ml/min 07/26/20 19:07 BUN/Creatinine Ratio 16 % 07/26/20 19:07 Glucose 89 mg/dL (75-100) 07/26/20 19:07 Calcium 9.2 mg/dL (8.4-10.2) 07/26/20 19:07 Urine Color Yellow (Yellow) 07/26/20 20:42 Urine Turbidity Clear (Clear) 07/26/20 20:42 Urine pH 5.0 (5.0-7.0) 07/26/20 20:42 Ur Specific [place] 1.019 (1.003-1.030) 07/26/20 20:42 Urine Protein <15 mg/dl mg/dL (Negative) 07/26/20 20:42 Urine Glucose (UA) Neg mg/dL (Negative) 07/26/20 20:42 Urine Ketones Neg mg/dL (Negative) 07/26/20 20:42 Urine Blood Neg (Negative) 07/26/20 20:42 Urine Nitrite Neg (Negative) 07/26/20 20:42 Urine Bilirubin Neg (Negative) 07/26/20 20:42 Urine Urobilinogen 2.0 mg/dL (<2.0) 07/26/20 20:42 Ur Leukocyte Esterase Neg (Negative) 07/26/20 20:42 Urine WBC (Auto) 1.0 /HPF (0.0-6.0) 07/26/20 20:42 Urine RBC (Auto) 1.0 /HPF (0.0-6.0) 07/26/20 20:42 U Epithel Cells (Auto) < 1.0 /HPF (0-13.0) 07/26/20 20:42 Urine Mucus Few /HPF 07/26/20 20:42 Salicylates < 0.3 mg/dL (2.8-20.0) L 07/26/20 19:07 Urine Opiates Screen Presumptive negative 07/26/20 20:42 Urine Methadone Screen Presumptive negative 07/26/20 20:42 Acetaminophen 5.0 ug/mL (10.0-30.0) L 07/26/20 19:07 Ur Barbiturates Screen Presumptive negative 07/26/20 20:42 Ur Phencyclidine Scrn Presumptive negative 07/26/20 20:42 Ur Amphetamines Screen Presumptive negative 07/26/20 20:42 U Benzodiazepines Scrn Presumptive positive 07/26/20 20:42 Urine Cocaine Screen Presumptive negative 07/26/20 20:42 U Marijuana (THC) Screen Presumptive negative 07/26/20 20:42 Drugs of Abuse Note Disclamer 07/26/20 20:42 Plasma/Serum Alcohol < 0.01 % (0-0.07) 07/26/20 19:07 Assessment and Plan - Patient Problems (1) Abdominal pain Current Visit: Yes Status: Acute Qualifiers: Plan to address problem: 1. I.V MORPHINE FOR PAIN 2. I.V ZOFRAN FOR NAUSEA AND VOMITING 3. I.V NORMAL SALINE FLUID (2) Constipation Current Visit: Yes Status: Acute Plan to address problem: DULCOLAX TABLET PRN CONSTIPATION (3) Ileus Current Visit: Yes Status: Acute Plan to address problem: 1. I.V NORMAL SALINE FLUID 2. NPO FOR SOME PERIOD (4) Nausea and vomiting Current Visit: Yes Status: Acute Plan to address problem: 1. I.V ZOFRAN FOR NAUSEA AND VOMITING 2. I.V NORMAL SALINE FLUID
--- NOTE | 2020-07-29 05:50 | Event Note ---
Date: 07/29/20 20 year old male with schitzophrenia, normal WBC, complains of abd pain, CT abd pelvis reveals previous colon surgery and fecal impaction with partial SBO secondary to fecal impaction, needs therapeutic enema, clear liquids only until patient has BM or disimpaction, no role or very limited role for iv narcotics since it will make his fecal impaction worse. Continue Psych meds if he is on them.
--- NOTE | 2020-07-29 08:16 | Progress Note ---
Assessment and Plan Assessment and plan: -- Abdominal pain Current Visit: Yes Status: Acute Plan to address problem: secondary to chronic constipation, enema as needed, surgery following -- Constipation Current Visit: Yes Status: Acute Plan to address problem: Stool softeners, soapsuds enema --Diffuse ileus[on CT abdomen] Current Visit: Yes Status: Acute Plan to address problem: Secondary to constipation surgery following --Nausea and vomiting Current Visit: Yes Status: Acute Plan to address problem: Probably secondary to chronic constipation Antiemetics, IV fluids supportive care --H/O Schizophrenia/behavioral disturbances Current Visit: Yes Status: Acute Plan to address problem: Patient is on 1013 status, 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 Psych consult --DVT prophylaxis Heparin subcu We will closely monitor and adjust the management as needed History Interval history: I have seen and examined the patient at the bedside this morning Patient was admitted with abdominal pain, chronic constipation Evaluated by surgery, recommend enema Patient is sleeping easily awakens Noncommunicative Vital signs noted Hospitalist Physical - Constitutional Vitals: Temp Pulse Resp BP Pulse Ox 98.0 F 70 18 104/59 95 07/29/20 04:00 07/29/20 04:00 07/29/20 04:00 07/29/20 04:00 07/29/20 04:00 General appearance: Present: no acute distress, well-nourished, obese - EENT Eyes: Present: PERRL, EOM intact - Neck Neck: Present: supple, normal ROM - Respiratory Respiratory effort: normal Respiratory: bilateral: diminished, negative: rales, rhonchi, wheezing - Cardiovascular Rhythm: regular Heart Sounds: Present: S1 & S2 - Extremities Extremities: no ischemia, No edema - Abdominal General gastrointestinal: soft, non-tender, non-distended, normal bowel sounds - Integumentary Integumentary: Present: clear, warm - Psychiatric Psychiatric: other (Noncommunicative) - Neurologic Neurologic: moves all extremities HEART Score - HEART Score Age: < 45 Risk factors: No known risk factors Troponin: < normal limit - Critical Actions Critical Actions: 0-3 pts:0.9-1.7%risk of adverse cardiac event.Candidate for discharge Results - Labs CBC & Chem 7: 07/26/20 19:07 07/26/20 19:07 Labs: Laboratory Last Values WBC 5.1 K/mm3 (4.5-11.0) 07/26/20 19:07 RBC 4.33 M/mm3 (3.65-5.03) 07/26/20 19:07 Hgb 13.2 gm/dl (11.8-15.2) 07/26/20 19:07 Hct 39.3 % (35.5-45.6) 07/26/20 19:07 MCV 91 fl (84-94) 07/26/20 19:07 MCH 31 pg (28-32) 07/26/20 19:07 MCHC 34 % (32-34) 07/26/20 19:07 RDW 14.6 % (13.2-15.2) 07/26/20 19:07 Plt Count 186 K/mm3 (140-440) 07/26/20 19:07 Lymph % (Auto) 44.6 % (13.4-35.0) H 07/26/20 19:07 [place] % (Auto) 9.3 % (0.0-7.3) H 07/26/20 19:07 Eos % (Auto) 1.9 % (0.0-4.3) 07/26/20 19:07 Baso % (Auto) 1.5 % (0.0-1.8) 07/26/20 19:07 Lymph # (Auto) 2.3 K/mm3 (1.2-5.4) 07/26/20 19:07 [place] # (Auto) 0.5 K/mm3 (0.0-0.8) 07/26/20 19:07 Eos # (Auto) 0.1 K/mm3 (0.0-0.4) 07/26/20 19:07 Baso # (Auto) 0.1 K/mm3 (0.0-0.1) 07/26/20 19:07 Seg Neutrophils % 42.7 % (40.0-70.0) 07/26/20 19:07 Seg Neutrophils # 2.2 K/mm3 (1.8-7.7) 07/26/20 19:07 Sodium 140 mmol/L (137-145) 07/26/20 19:07 Potassium 4.7 mmol/L (3.6-5.0) 07/26/20 19:07 Chloride 102.3 mmol/L (98-107) 07/26/20 19:07 Carbon Dioxide 26 mmol/L (22-30) 07/26/20 19:07 Anion Gap 16 mmol/L 07/26/20 19:07 BUN 13 mg/dL (9-20) 07/26/20 19:07 Creatinine 0.8 mg/dL (0.8-1.3) 07/26/20 19:07 Estimated GFR > 60 ml/min 07/26/20 19:07 BUN/Creatinine Ratio 16 % 07/26/20 19:07 Glucose 89 mg/dL (75-100) 07/26/20 19:07 Calcium 9.2 mg/dL (8.4-10.2) 07/26/20 19:07 Urine Color Yellow (Yellow) 07/26/20 20:42 Urine Turbidity Clear (Clear) 07/26/20 20:42 Urine pH 5.0 (5.0-7.0) 07/26/20 20:42 Ur Specific [place] 1.019 (1.003-1.030) 07/26/20 20:42 Urine Protein <15 mg/dl mg/dL (Negative) 07/26/20 20:42 Urine Glucose (UA) Neg mg/dL (Negative) 07/26/20 20:42 Urine Ketones Neg mg/dL (Negative) 07/26/20 20:42 Urine Blood Neg (Negative) 07/26/20 20:42 Urine Nitrite Neg (Negative) 07/26/20 20:42 Urine Bilirubin Neg (Negative) 07/26/20 20:42 Urine Urobilinogen 2.0 mg/dL (<2.0) 07/26/20 20:42 Ur Leukocyte Esterase Neg (Negative) 07/26/20 20:42 Urine WBC (Auto) 1.0 /HPF (0.0-6.0) 07/26/20 20:42 Urine RBC (Auto) 1.0 /HPF (0.0-6.0) 07/26/20 20:42 U Epithel Cells (Auto) < 1.0 /HPF (0-13.0) 07/26/20 20:42 Urine Mucus Few /HPF 07/26/20 20:42 Salicylates < 0.3 mg/dL (2.8-20.0) L 07/26/20 19:07 Urine Opiates Screen Presumptive negative 07/26/20 20:42 Urine Methadone Screen Presumptive negative 07/26/20 20:42 Acetaminophen 5.0 ug/mL (10.0-30.0) L 07/26/20 19:07 Ur Barbiturates Screen Presumptive negative 07/26/20 20:42 Ur Phencyclidine Scrn Presumptive negative 07/26/20 20:42 Ur Amphetamines Screen Presumptive negative 07/26/20 20:42 U Benzodiazepines Scrn Presumptive positive 07/26/20 20:42 Urine Cocaine Screen Presumptive negative 07/26/20 20:42 U Marijuana (THC) Screen Presumptive negative 07/26/20 20:42 Drugs of Abuse Note Disclamer 07/26/20 20:42 Plasma/Serum Alcohol < 0.01 % (0-0.07) 07/26/20 19:07 [place]/IV: Voiding Method Toilet IV Catheter Type [Left INT / Saline Lock Antecubital] Active Medications - Current Medications Current Medications: Generic Name Dose Route Start Last Admin Trade Name Freq PRN Reason Stop Dose Admin Acetaminophen 650 mg 07/26/20 19:01 Tylenol PO Q4HR PRN Pain MILD(1-3)/Fever >100.5/BARRY Benztropine Mesylate 0.5 mg 07/26/20 22:00 07/28/20 21:59 Cogentin PO 0.5 mg BID STEPHEN Administration Bisacodyl 10 mg 07/26/20 20:00 07/28/20 11:24 Dulcolax PO 10 mg QDAY STEPHEN Administration Bisacodyl 10 mg 07/29/20 03:20 Dulcolax PO QDAY PRN Constipation Clonazepam 2 mg 07/26/20 22:00 07/28/20 22:00 Klonopin PO 2 mg BID STEPHEN Administration Divalproex Sodium 500 mg 07/26/20 22:00 07/28/20 22:00 Depakote Er PO 500 mg BID STEPHEN Administration Famotidine 20 mg 07/26/20 22:00 07/28/20 22:01 Pepcid PO 20 mg BID STEPHEN Administration Heparin Sodium (Porcine) 5,000 unit 07/29/20 03:30 07/29/20 04:25 Heparin SUB-Q Not Given Q12HR STEPHEN Sodium Chloride 1,000 mls @ 125 mls/hr 07/29/20 03:30 Nacl 0.9% 1000 Ml IV DIRECT STEPHEN Ondansetron HCl 4 mg 07/29/20 03:19 Zofran IV Q8H PRN Nausea And Vomiting Trazodone HCl 100 mg 07/26/20 22:00 07/28/20 22:00 Desyrel PO 100 mg QHS STEPHEN Administration
[2020-07-29] MEDS: BENZTROPINE 0.5 MG TAB PO SCH ×2 (11:05→22:10)
[2020-07-29] MEDS: FAMOTIDINE 20 MG TAB PO SCH ×2 (11:05→22:05)
[2020-07-29] MEDS: DIVALPROEX ER 500 MG TAB PO SCH ×2 (11:06→22:05)
[2020-07-29] MEDS ORDERED: FLEET ENEMA PR ONE (14:14)
[2020-07-29] MEDS: traZODone 50 MG TAB PO SCH (22:06)
--- NOTE | 2020-07-30 09:20 | Event Note ---
Date: 07/30/20 Will obtain KUB and check evacuation of stool from colon.
[2020-07-30 09:30] LABS: BUN/Creatinine Ratio 11; Blood Urea Nitrogen 9 mg/dL (9-20); Calcium 9.4 mg/dL (8.4-10.2); Hemolysis Index 9
--- NOTE | 2020-07-30 10:19 | XRay Report ---
ABDOMEN 1 VIEW(S) INDICATION: fecal retension COMPARISON: CT abdomen and pelvis dated July 29, 2020 FINDINGS: Bowel gas pattern: Persistent distention of gastrointestinal tract is essentially unchanged as compar ed to CT dated July 29, 2020 Free air: None. Calcified gallstones: None seen. Calcified urinary tract calculi: None seen. Additional Findings: None. Skeletal structures: No acute abnormality. IMPRESSION: 1. Persistent distention of the gastrointestinal tract with gas Signer Name: Anselmo Mccartney MD Signed: 07/30/2020 10:15 AM Workstation Name: [id number]
[2020-07-30] MEDS: FAMOTIDINE 20 MG TAB PO SCH ×2 (10:46→21:48)
[2020-07-30] MEDS: DIVALPROEX ER 500 MG TAB PO SCH ×2 (10:47→21:48)
[2020-07-30] MEDS: BENZTROPINE 0.5 MG TAB PO SCH ×2 (10:47→21:48)
[2020-07-30] MEDS: HEPARIN 5,000 UNIT/1 ML VIAL SUB-Q SCH ×2 (10:47→21:48)
--- NOTE | 2020-07-30 12:54 | Event Note ---
Date: 07/30/20 Therapeutic enema to be done by Radiology at 1pm? once patient has cleared his colon he can be discharged from [facility].
--- NOTE | 2020-07-30 14:39 | Fluoroscopy Report ---
Single contrast water soluble enema Indication: faecal impaction. Technique: Single contrast water-soluble technique utilized to evaluate the colon. Findings: To begin the exam, a rectal catheter was inserted in a retrograde fashion into the rectum and balloon was inflated to secure positioning. Approximately 720 mL of Gastrografin was then instill ed in a retrograde fashion by gravity. Contrast reached the level of the splenic flexure but after ov er a minute, contrast would not proceed further proximally. Exam was then terminated in an effort to keep the patient calm and allow the more distal stool to pass. Impression: Successful limited exam as outlined above. Fluoroscopic time: 2.2 minutes Number of fluoroscopic images: 7 Signer Name: Matt Helm MD Signed: 07/30/2020 2:34 PM Workstation Name: [id number]
--- NOTE | 2020-07-30 15:57 | Progress Note ---
Assessment and Plan Assessment and plan: -- Abdominal pain Current Visit: Yes Status: Acute Plan to address problem: secondary to chronic constipation, enema as needed, surgery following -- Constipation Current Visit: Yes Status: Acute Plan to address problem: Stool softeners, soapsuds enema s/p Gastrografin enema Surgery following --Diffuse ileus[on CT abdomen] Current Visit: Yes Status: Acute Plan to address problem: Secondary to constipation surgery following --Nausea and vomiting Current Visit: Yes Status: Acute Plan to address problem: Probably secondary to chronic constipation Antiemetics, IV fluids supportive care --H/O Schizophrenia/behavioral disturbances Current Visit: Yes Status: Acute Plan to address problem: Patient is on 1013 status, safety and security manager at the bedside. Psych consult --DVT prophylaxis Heparin subcu We will closely monitor and adjust the management as needed If patient tolerates oral diet, and is asymptomatic without abdominal pain May discharge home tomorrow History Interval history: I have seen and examined the patient at the bedside patient had bowel movements yesterday and today after soapsuds enema and Gastrografin enema. Patient is comfortable No new complaints from the nurse Tolerating oral nutrition Vital signs noted Hospitalist Physical - Constitutional Vitals: Temp Pulse Resp BP Pulse Ox 97.4 F L 58 L 19 97/49 96 07/30/20 05:05 07/30/20 05:05 07/30/20 05:05 07/30/20 05:05 07/30/20 05:05 General appearance: Present: no acute distress, well-nourished, obese - EENT Eyes: Present: PERRL, EOM intact - Neck Neck: Present: supple, normal ROM - Respiratory Respiratory effort: normal Respiratory: bilateral: diminished, negative: rales, rhonchi, wheezing - Cardiovascular Rhythm: regular Heart Sounds: Present: S1 & S2 - Extremities Extremities: no ischemia, No edema - Abdominal General gastrointestinal: soft, non-tender, non-distended - Integumentary Integumentary: Present: clear, warm - Psychiatric Psychiatric: appropriate mood/affect, other (Noncommunicative) - Neurologic Neurologic: moves all extremities (Noncommunicative) HEART Score - HEART Score Age: < 45 Risk factors: No known risk factors Troponin: < normal limit - Critical Actions Critical Actions: 0-3 pts:0.9-1.7%risk of adverse cardiac event.Candidate for discharge Results - Labs CBC & Chem 7: 07/26/20 19:07 07/30/20 07:28 Labs: Laboratory Last Values WBC 5.1 K/mm3 (4.5-11.0) 07/26/20 19:07 RBC 4.33 M/mm3 (3.65-5.03) 07/26/20 19:07 Hgb 13.2 gm/dl (11.8-15.2) 07/26/20 19:07 Hct 39.3 % (35.5-45.6) 07/26/20 19:07 MCV 91 fl (84-94) 07/26/20 19:07 MCH 31 pg (28-32) 07/26/20 19:07 MCHC 34 % (32-34) 07/26/20 19:07 RDW 14.6 % (13.2-15.2) 07/26/20 19:07 Plt Count 186 K/mm3 (140-440) 07/26/20 19:07 Lymph % (Auto) 44.6 % (13.4-35.0) H 07/26/20 19:07 Perry % (Auto) 9.3 % (0.0-7.3) H 07/26/20 19:07 Eos % (Auto) 1.9 % (0.0-4.3) 07/26/20 19:07 Baso % (Auto) 1.5 % (0.0-1.8) 07/26/20 19:07 Lymph # (Auto) 2.3 K/mm3 (1.2-5.4) 07/26/20 19:07 Perry # (Auto) 0.5 K/mm3 (0.0-0.8) 07/26/20 19:07 Eos # (Auto) 0.1 K/mm3 (0.0-0.4) 07/26/20 19:07 Baso # (Auto) 0.1 K/mm3 (0.0-0.1) 07/26/20 19:07 Seg Neutrophils % 42.7 % (40.0-70.0) 07/26/20 19:07 Seg Neutrophils # 2.2 K/mm3 (1.8-7.7) 07/26/20 19:07 Sodium 143 mmol/L (137-145) 07/30/20 07:28 Potassium 4.1 mmol/L (3.6-5.0) 07/30/20 07:28 Chloride 103.5 mmol/L (98-107) 07/30/20 07:28 Carbon Dioxide 28 mmol/L (22-30) 07/30/20 07:28 Anion Gap 16 mmol/L 07/30/20 07:28 BUN 9 mg/dL (9-20) 07/30/20 07:28 Creatinine 0.8 mg/dL (0.8-1.3) 07/30/20 07:28 Estimated GFR > 60 ml/min 07/30/20 07:28 BUN/Creatinine Ratio 11 % 07/30/20 07:28 Glucose 88 mg/dL (75-100) 07/30/20 07:28 Calcium 9.4 mg/dL (8.4-10.2) 07/30/20 07:28 Phosphorus 4.50 mg/dL (2.5-4.5) 07/30/20 07:28 Magnesium 1.80 mg/dL (1.7-2.3) 07/30/20 07:28 Urine Color Yellow (Yellow) 07/26/20 20:42 Urine Turbidity Clear (Clear) 07/26/20 20:42 Urine pH 5.0 (5.0-7.0) 07/26/20 20:42 Ur Specific Vernalis 1.019 (1.003-1.030) 07/26/20 20:42 Urine Protein <15 mg/dl mg/dL (Negative) 07/26/20 20:42 Urine Glucose (UA) Neg mg/dL (Negative) 07/26/20 20:42 Urine Ketones Neg mg/dL (Negative) 07/26/20 20:42 Urine Blood Neg (Negative) 07/26/20 20:42 Urine Nitrite Neg (Negative) 07/26/20 20:42 Urine Bilirubin Neg (Negative) 07/26/20 20:42 Urine Urobilinogen 2.0 mg/dL (<2.0) 07/26/20 20:42 Ur Leukocyte Esterase Neg (Negative) 07/26/20 20:42 Urine WBC (Auto) 1.0 /HPF (0.0-6.0) 07/26/20 20:42 Urine RBC (Auto) 1.0 /HPF (0.0-6.0) 07/26/20 20:42 U Epithel Cells (Auto) < 1.0 /HPF (0-13.0) 07/26/20 20:42 Urine Mucus Few /HPF 07/26/20 20:42 Salicylates < 0.3 mg/dL (2.8-20.0) L 07/26/20 19:07 Urine Opiates Screen Presumptive negative 07/26/20 20:42 Urine Methadone Screen Presumptive negative 07/26/20 20:42 Acetaminophen 5.0 ug/mL (10.0-30.0) L 07/26/20 19:07 Ur Barbiturates Screen Presumptive negative 07/26/20 20:42 Ur Phencyclidine Scrn Presumptive negative 07/26/20 20:42 Ur Amphetamines Screen Presumptive negative 07/26/20 20:42 U Benzodiazepines Scrn Presumptive positive 07/26/20 20:42 Urine Cocaine Screen Presumptive negative 07/26/20 20:42 U Marijuana (THC) Screen Presumptive negative 07/26/20 20:42 Drugs of Abuse Note Disclamer 07/26/20 20:42 Plasma/Serum Alcohol < 0.01 % (0-0.07) 07/26/20 19:07 Mcpherson/IV: Voiding Method Toilet IV Catheter Type [Left INT / Saline Lock Antecubital] Active Medications - Current Medications Current Medications: Generic Name Dose Route Start Last Admin Trade Name Freq PRN Reason Stop Dose Admin Acetaminophen 650 mg 07/26/20 19:01 Tylenol PO Q4HR PRN Pain MILD(1-3)/Fever >100.5/BARRY Benztropine Mesylate 0.5 mg 07/26/20 22:00 07/30/20 10:47 Cogentin PO 0.5 mg BID STEPHEN Administration Bisacodyl 10 mg 07/26/20 20:00 07/30/20 10:46 Dulcolax PO 10 mg QDAY STEPHEN Administration Bisacodyl 10 mg 07/29/20 03:20 Dulcolax PO QDAY PRN Constipation Clonazepam 2 mg 07/26/20 22:00 07/30/20 10:47 Klonopin PO 2 mg BID STEPHEN Administration Divalproex Sodium 500 mg 07/26/20 22:00 07/30/20 10:47 Depakote Er PO 500 mg BID STEPHEN Administration Famotidine 20 mg 07/26/20 22:00 07/30/20 10:46 Pepcid PO 20 mg BID STEPHEN Administration Heparin Sodium (Porcine) 5,000 unit 07/29/20 03:30 07/30/20 10:47 Heparin SUB-Q Not Given Q12HR STEPHEN Sodium Chloride 1,000 mls @ 125 mls/hr 07/29/20 03:30 07/30/20 06:37 Nacl 0.9% 1000 Ml IV 125 mls/hr DIRECT STEPHEN Administration Ondansetron HCl 4 mg 07/29/20 03:19 Zofran IV Q8H PRN Nausea And Vomiting Trazodone HCl 100 mg 07/26/20 22:00 07/29/20 22:06 Desyrel PO 100 mg QHS STEPHEN Administration
[2020-07-30] MEDS: traZODone 50 MG TAB PO SCH (21:47)
--- NOTE | 2020-07-31 07:03 | Event Note ---
Date: 07/31/20 Pt has some results with gastrograffin enema, He is hemodynamically stable, the very last thing he needs is another operation, it is simply NOT indicated and represents inappropriate risk, I need GI evaluation to help disimpact this patient, also, this represents a chronic problem for this patient secondary to his underlying psychiatric problems. Please consult GI to help us clear his colon/ for their reccomendations.
--- NOTE | 2020-07-31 07:32 | Event Note ---
Date: 07/31/20 KUB ordered, this patient really needs to be on a bowel program (miralax, etc.) to avoid this becoming a recurrent problem, this should be communicated to his caregiver if possible.I am OK with discharge if KUB is OK.
--- NOTE | 2020-07-31 08:38 | XRay Report ---
ABDOMEN 2 VIEW(S) INDICATION / CLINICAL INFORMATION: faecal impaction. COMPARISON: KUB and therapeutic water-soluble enema from yesterday. FINDINGS: TUBES / LINES: None. BOWEL GAS PATTERN: Persistent mild gaseous distention of bowel in the left upper quadrant with small amount of residual stool. There is also small amount residual contrast within the rectosigmoid colon with no obvious remaining impaction. FREE AIR / EXTRALUMINAL GAS: None seen. ADDITIONAL FINDINGS: No significant additional findings. IMPRESSION: 1. Bowel findings as above. Signer Name: Matt Helm MD Signed: 07/31/2020 8:33 AM Workstation Name: [id number]
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
[2020-07-31] MEDS: DIVALPROEX ER 500 MG TAB PO SCH (09:58)
[2020-07-31] MEDS: FAMOTIDINE 20 MG TAB PO SCH (09:58)
[2020-07-31] MEDS: BENZTROPINE 0.5 MG TAB PO SCH (09:58)
[2020-07-31] MEDS: HEPARIN 5,000 UNIT/1 ML VIAL SUB-Q SCH (09:59)
--- NOTE | 2020-07-31 18:52 | Event Note ---
Date: 07/31/20 KUB reviewed with Radiology earlier today, OK for discharge, I will sign off, please reconsult me if needed.
[2020-07-31 18:58] VITALS: BP 132/64
== END 2020-07-31 19:05 | disposition home or self-care (01) | DRG 392 ==
LOC: ED 18:29 → 3A 07-29 01:53 → OBSVTOIN 07-29 10:18
PROVIDERS: ADMIT Internal Medicine; ATTEND Internal Medicine
DX: K59.00 Constipation, unspecified (principal); K56.7 Ileus, unspecified; R11.2 Nausea with vomiting, unspecified; F20.9 Schizophrenia, unspecified
CPT/HCPCS: 36415; 74018; 74177; 74283; 80048; 80307; 80320; 81001; 83735; 84100; 85025; 96374; G0378; G0480; J1644; J2405; J7030; J7040; J7120; Q9963; Q9967

== ENCOUNTER 2021-07-04 03:39 | Emergency (ER) | payer MEDICAID, OTHER ==
[2021-07-04] MEDS ORDERED: ACETAMINOPHEN 500 MG TAB PO ONE (04:43)
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
[2021-07-04] MEDS ORDERED: HYDROcodone/ACETAMINOPHEN 7.5-325MG TAB PO ONE (06:50)
[2021-07-04] MEDS ORDERED: IBUPROFEN 600 MG TAB PO ONE (06:50)
[2021-07-04] MEDS ORDERED: ONDANSETRON 4 MG ODT TAB PO ONE (06:50)
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
[2021-07-04] MEDS ORDERED: AMPICILLIN/SULBACTA 3GM/100ML 3 GM/100 ML BAG IV ONE (09:00)
[2021-07-04] MEDS ORDERED: fentaNYL 100 MCG/2 ML INJ IV ONE (09:08)
[2021-07-04 10:50] VITALS: BP 110/64
== END 2021-07-04 11:30 ==
LOC: ED 03:39
DX: S02.609A Fracture of mandible, unspecified, initial encounter for closed fracture (principal); Y08.89XA Assault by other specified means, initial encounter; Y93.89 Activity, other specified; Y92.89 Other specified places as the place of occurrence of the external cause; Y99.8 Other external cause status
CPT/HCPCS: 70450; 70486; 72125; 96365; 96375; 99285; J0295; J3010; 99283; Q0162

== ENCOUNTER 2022-06-21 23:34 | Emergency (ER) | payer MEDICAID, OTHER ==
[2022-06-21 23:42] VITALS: BP 163/96
--- NOTE | 2022-06-22 07:48 | Emergency Department Report ---
ED Headache HPI - General Chief Complaint: Abdominal Pain Stated Complaint: ABD PAIN AND HEADACHE Time Seen by Provider: 06/22/22 07:09 - History of Present Illness Initial Comments: 22-year-old black male presents to the emergency department for evaluation of headache. He states that last night before he took his medications, he had a headache and he was hearing voices. He states that this happens to him at times. He denies HI and SI. He states that he took his medications, has been sleeping in the emergency department all night, and now feels much better. He denies any auditory or visual hallucinations at this time. Timing/Duration: 1-3 hours Quality: mild Head Injury Location: frontal Associated Symptoms: denies: confusion, fatigue, facial pain, fever/chills, flushing, loss of consciousness, nausea/vomiting, nasal congestion, nasal drainage, numbness in legs/feet, rash, seizures, sinus infection, stiff neck, vision changes, weakness Allergies/Adverse Reactions: Allergies No Known Allergies Allergy (Verified 10/20/15 03:43) Home Medications: Ambulatory Orders Benztropine [Cogentin] 0.5 mg PO BID 05/17/19 traZODone [Desyrel] 100 mg PO HS 06/05/19 Psyllium Seed (with Sugar) [Metamucil] 1 each PO BID 02/17/20 Simethicone [Bicarsim] 40 mg PO TID 02/17/20 Divalproex ER [Depakote ER] 500 mg PO BID #60 03/06/20 Famotidine [Pepcid] 20 mg PO BID #60 tablet 03/06/20 Mupirocin [Bactroban 2% OINT] 1 applic NS BID #1 tube 03/06/20 Sennosides Tab [Senokot] 17.2 mg PO BID #30 tablet 03/06/20 bisacodyL [Dulcolax tab] 10 mg PO QDAY #14 tablet 03/06/20 clonazePAM [KlonoPIN] 2 mg PO BID #30 03/06/20 Magnesium Hydroxide [Milk of Magnesia] 400 mg PO Q48HR PRN 30 Days #1 bottle 07/31/20 ED Review of Systems ROS: Stated complaint: ABD PAIN AND HEADACHE Other details as noted in HPI Comment: All other systems reviewed and negative Constitutional: denies: chills, fever, malaise Eyes: denies: vision change ENT: denies: congestion Respiratory: denies: shortness of breath Cardiovascular: denies: chest pain, palpitations, dyspnea on exertion, orthopnea, edema, syncope, paroxysmal nocturnal dyspnea Gastrointestinal: denies: abdominal pain, nausea, vomiting Genitourinary: denies: urgency, dysuria Musculoskeletal: denies: back pain Skin: denies: rash, lesions Neurological: headache. denies: weakness, numbness, paresthesias, confusion, abnormal gait, vertigo Psychiatric: denies: anxiety, auditory hallucinations, visual hallucinations, homicidal thoughts, suicidal thoughts ED Past Medical Hx - Past Medical History Hx Heart Attack/AMI: No (EF 25-30% on recent TTE) Hx Congestive Heart Failure: No Hx Diabetes: No Hx Renal Disease: Yes (ARF requiring HD this admission now improved) Hx Seizures: Yes Hx Psychiatric Treatment: Yes (schizo affective disorder/bipolar) Hx Asthma: No (Hx) Hx COPD: No Hx HIV: No Additional medical history: down syndrome - Surgical History Hx Pacemaker: No Hx Internal Defibrillator: No - Social History Smoking Status: Unknown if ever smoked - Medications Home Medications: Home Medications Medication Instructions Recorded Confirmed Last Taken Type Benztropine [Cogentin] 0.5 mg PO BID 05/17/19 07/28/20 1 Day Ago History ~06/29/20 traZODone [Desyrel] 100 mg PO HS 06/05/19 07/28/20 1 Day Ago History ~06/29/20 Psyllium Seed (with Sugar) 1 each PO BID 02/17/20 07/28/20 1 Day Ago History [Metamucil] ~06/29/20 Simethicone [Bicarsim] 40 mg PO TID 02/17/20 07/28/20 1 Day Ago History ~06/29/20 Divalproex ER [Depakote ER] 500 mg PO BID #60 03/06/20 07/28/20 1 Day Ago Rx ~06/29/20 Famotidine [Pepcid] 20 mg PO BID #60 tablet 03/06/20 07/28/20 1 Day Ago Rx ~06/29/20 Mupirocin [Bactroban 2% OINT] 1 applic NS BID #1 tube 03/06/20 07/28/20 1 Day Ago Rx ~06/29/20 Sennosides Tab [Senokot] 17.2 mg PO BID #30 tablet 03/06/20 07/28/20 1 Day Ago Rx ~06/29/20 bisacodyL [Dulcolax tab] 10 mg PO QDAY #14 tablet 03/06/20 07/28/20 1 Day Ago Rx ~06/29/20 clonazePAM [KlonoPIN] 2 mg PO BID #30 03/06/20 07/28/20 1 Day Ago Rx ~06/29/20 Magnesium Hydroxide [Milk of 400 mg PO Q48HR PRN 30 Days #1 07/31/20 Unknown Rx Magnesia] bottle ED Physical Exam - General Limitations: No Limitations General appearance: alert, in no apparent distress - Head Head exam: Present: atraumatic, normocephalic - Eye Eye exam: Present: normal appearance. Absent: conjunctival injection, periorbital swelling, periorbital tenderness - ENT ENT exam: Present: normal exam, normal orophraynx - Neck Neck exam: Present: normal inspection, full ROM. Absent: tenderness, meningismus, lymphadenopathy - Respiratory Respiratory exam: Present: normal lung sounds bilaterally. Absent: respiratory distress, wheezes, rales, rhonchi, stridor, chest wall tenderness - Cardiovascular Cardiovascular Exam: Present: tachycardia, normal heart sounds - GI/Abdominal GI/Abdominal exam: Present: soft, normal bowel sounds. Absent: distended, tenderness, guarding, rebound, rigid - Extremities Exam Extremities exam: Present: normal inspection, full ROM, normal capillary refill. Absent: pedal edema, joint swelling, calf tenderness - Back Exam Back exam: Present: normal inspection. Absent: CVA tenderness (R), CVA tenderness (L), vertebral tenderness - Psychiatric Psychiatric exam: Present: normal affect, normal mood. Absent: depressed, agitated, anxious, flat affect, homicidal ideation, suicidal ideation - Skin Skin exam: Present: warm, dry, intact, normal color ED Course Vital Signs 06/21/22 23:40 Temperature 98 F Pulse Rate 107 H Respiratory 16 Rate Blood Pressure 163/96 [Right] O2 Sat by Pulse 97 Oximetry ED Medical Decision Making - Medical Decision Making 22-year-old black male presents to the emergency department for evaluation of headache. He states that last night before he took his medications, he had a h eadache and he was hearing voices. He states that this happens to him at times. He denies HI and SI. He states that he took his medications, has been sleeping in the emergency department all night, and now feels much better. He denies any auditory or visual hallucinations at this time. Physical exam unremarkable. Patient denies SI, HI, and visual and auditory hallucinations. Patient states that headache has resolved. Patient will be discharged home to follow-up with his primary care provider and return to the emergency department as needed. He verbalizes understanding of and agreement with plan of care. Critical care attestation.: If time is entered above; I have spent that time in minutes in the direct care of this critically ill patient, excluding procedure time. ED Disposition Clinical Impression: Headache Qualifiers: Headache type: unspecified Headache chronicity pattern: acute headache Intractability: not intractable Qualified Code(s): R51.9 - Headache, unspecified Disposition: 01 HOME / SELF CARE / HOMELESS Is pt being admited?: No Does the pt Need Aspirin: No Condition: Stable Instructions: General Headache Without Cause, [id number] Additional Instructions: Continue your home medications as previously prescribed by your primary care provider. Follow-up with your primary care provider or mental health provider for further evaluation and management. Return to the emergency department as needed Referrals: [facility] [Outside] - 3-5 Days [facility] [place] [Outside] - 3-5 Days [facility] [Outside] - 3-5 Days Time of Disposition: 07:48
== END 2022-06-22 11:51 | disposition home or self-care (01) ==
LOC: ED 23:34
DX: R51.9 Headache, unspecified (principal); N28.9 Disorder of kidney and ureter, unspecified; F31.9 Bipolar disorder, unspecified
CPT/HCPCS: 99283